=== PATIENT | male | born 1960 | race Caucasian/White ===

== ENCOUNTER 2018-11-14 22:02 | Emergency (ER) | payer SELFPAY ==
--- OUTSIDE RECORDS SUMMARY | 2018-11-14 22:05 | XMS REPORT ---
:1960 [facility] Address [address] [place] [address] Dr. Delgado [address] [place] [id number] Care Team Providers Name Role Phone Unavailable Unavailable Unavailable Problems This patient has no known problems. Allergies, Adverse Reactions, Alerts This patient has no known allergies or adverse reactions. Medications This patient has no known medications.
[2018-11-14 22:41] LABS: Absolute Lymphocytes (CBC) 2.2 K/uL (0.7-4.9); Absolute Monocytes 1.2 K/uL (0.1-1.3); Absolute Neutrophil 8.9 K/uL (1.8-8.0); Basophils % 0.6 % (0-1.3); Hematocrit 41.5 % (39.6-49.0); Lymphocytes % 16.6 % (15.3-44.8); MPV 7.6 fL (7.6-11.3); Monocytes % 9.5 % (3.3-12.3); RBC Red Blood Cell Count 4.53 M/uL (4.33-5.43)
[2018-11-14] MEDS ORDERED: FAMOTIDINE 20 MG/2 ML VIAL IV ONE (23:01)
[2018-11-14] MEDS ORDERED: MORPHINE 4 MG/ML SYR ONE (23:01)
[2018-11-14] MEDS ORDERED: ONDANSETRON 4 MG/2 ML VIAL ONE (23:01)
[2018-11-14 23:29] LABS: Protime INR 0.96
[2018-11-14 23:45] LABS: ALT/SGPT 55 U/L (12-78); AST/SGOT 42 U/L (15-37); Albumin 4.4 g/dL (3.4-5.0); Alkaline Phosphatase 156 U/L (45-117); BUN Blood Urea Nitrogen 25 mg/dL (7-18); Bicarbonate 26 mmol/L (21-32); Bilirubin Direct 0.2 mg/dL (0-0.2); Bilirubin Total 0.5 mg/dL (0.2-1.0); Glucose Level 90 mg/dL (74-106); Magnesium 2.5 mg/dL (1.8-2.4); NT PRO-BNP 59 pg/mL (<125); Potassium 4.1 mmol/L (3.5-5.1); Protein, Total 8.1 g/dL (6.4-8.2); Sodium Level 136 mmol/L (136-145); Troponin (Emerg Dept Use Only) < 0.02 ng/mL (0.0-0.045)
[2018-11-15] MEDS ORDERED: METHYLPREDNISOLONE 125 MG INJ ONE (00:24)
[2018-11-15] MEDS ORDERED: DIPHENHYDRAMINE 50 MG/ML VIAL ONE (00:24)
[2018-11-15] MEDS ORDERED: hydrOXYzine HCl 50 MG/ML VIAL IM ONE (02:25)
--- NOTE | 2018-11-15 02:49 | EDPHYS ---
Physician Documentation [facility] Name: Wood Jj Age: 58 yrs Sex: Male : 1960 Arrival Date: 11/14/2018 Time: 22:08 Bed 16 Private MD: ED Physician Terry Nye HPI: 11/15 03:41 This 58 yrs old Male presents to ER via Wheelchair with complaints of Chest kdr Pain. 03:41 The patient or guardian reports chest pain that is located primarily in the substernal kdr area, anterior chest wall, bilaterally. Onset: suddenly, Noon today. The pain does not radiate. Associated signs and symptoms: Pertinent positives: nausea. The chest pain is described as aching, dull, a pressure. Duration: The patient or guardian reports multiple episodes, that are intermittent, that wax and wane, with no pattern. Modifying factors: The symptoms are alleviated by nothing. the symptoms are aggravated by nothing. Severity of pain: At its worst the pain was mild in the emergency department the pain is unchanged. The patient has experienced similar episodes in the past, several times. The patient has not recently seen a physician. The patient seems very anxious and is crying at bedside. Historical: - Allergies: 11/14 22:23 PENICILLINS; lp1 22:23 Trazodone; lp1 22:23 Valium; lp1 22:23 Xanax; lp1 11/15 03:50 Zofran; rr5 - Home Meds: 11/14 22:23 lisinopril Oral [Active]; lp1 - PMHx: 22:23 Hypertension; Myocardial infarction; lp1 - PSHx: 22:23 Appendectomy; Eye surgery; lp1 - Immunization history:: Adult Immunizations up to date. - Social history:: Smoking status: Patient uses tobacco products, smokes one-half pack cigarettes per day. - Ebola Screening: : No symptoms or risks identified at this time. ROS: 11/15 03:41 Constitutional: Negative for fever, chills, and weight loss, Eyes: Negative for injury, kdr pain, redness, and discharge, Neck: Negative for injury, pain, and swelling, Respiratory: Negative for shortness of breath, cough, wheezing, and pleuritic chest pain, Abdomen/GI: Negative for abdominal pain, nausea, vomiting, diarrhea, and constipation, Back: Negative for injury and pain, : Negative for injury, bleeding, discharge, and swelling, MS/Extremity: Negative for injury and deformity, Skin: Negative for injury, rash, and discoloration, Psych: Negative for depression, anxiety, suicide ideation, homicidal ideation, and hallucinations, Allergy/Immunology: Negative for hives, rash, and allergies, Endocrine: Negative for neck swelling, polydipsia, polyuria, polyphagia, and marked weight changes, Hematologic/Lymphatic: Negative for swollen nodes, abnormal bleeding, and unusual bruising. Cardiovascular: Positive for chest pain, Negative for edema, orthopnea, palpitations, paroxysmal nocturnal dyspnea, acute changes. Neuro: Positive for Very emotional. Psych: Positive for Emotional - crying. Exam: 03:41 Constitutional: This is a well developed, well nourished patient who is awake, alert, kdr and in mdoerate distress. Head/Face: Normocephalic, atraumatic. Eyes: Pupils equal round and reactive to light, extra-ocular motions intact. Lids and lashes normal. Conjunctiva and sclera are non-icteric and not injected. Cornea within normal limits. Periorbital areas with no swelling, redness, or edema. Neck: Trachea midline, no thyromegaly or masses palpated, and no cervical lymphadenopathy. Supple, full range of motion without nuchal rigidity, or vertebral point tenderness. No Meningismus. Chest/axilla: Normal chest wall appearance and motion. Nontender with no deformity. No lesions are appreciated. Cardiovascular: Regular rate and rhythm with a normal S1 and S2. No gallops, murmurs, or rubs. Normal PMI, no JVD. No pulse deficits. Respiratory: Lungs have equal breath sounds bilaterally, clear to auscultation and percussion. No rales, rhonchi or wheezes noted. No increased work of breathing, no retractions or nasal flaring. Abdomen/GI: Soft, non-tender, with normal bowel sounds. No distension or tympany. No guarding or rebound. No evidence of tenderness throughout. Back: No spinal tenderness. No costovertebral tenderness. Full range of motion. Skin: Warm, dry with normal turgor. Normal color with no rashes, no lesions, and no evidence of cellulitis. MS/ Extremity: Pulses equal, no cyanosis. Neurovascular intact. Full, normal range of motion. Neuro: Awake and alert, GCS 15, oriented to person, place, time, and situation. Cranial nerves II-XII grossly intact. Motor strength 5/5 in all extremities. Sensory grossly intact. Cerebellar exam normal. Normal gait. 03:41 Psych: Behavior/mood is inappropriate for age, Emotional. Vital Signs: 11/14 22:21 BP 111 / 74; Pulse 73; Resp 19; Pulse Ox 96% on R/A; Weight 87.54 kg; Height 5 ft. 6 lp1 in. (167.64 cm); Pain 8/10; 22:29 Temp 97.7(T); ag4 23:00 BP 118 / 71; Pulse 63; Resp 17; Pulse Ox 98% ; rr5 23:30 BP 101 / 67; Pulse 72; Resp 17; Pulse Ox 99% ; rr5 02 00:00 BP 105 / 65; Pulse 79; Resp 20; Pulse Ox 99% ; rr5 01:00 BP 103 / 60; Pulse 75; Resp 17; Pulse Ox 98% ; rr5 02:00 BP 109 / 63; Pulse 79; Resp 19; Pulse Ox 98% ; rr5 03:00 BP 102 / 70; Pulse 75; Resp 16; Pulse Ox 98% ; rr5 03:40 BP 101 / 60; Pulse 73; Resp 17; Pulse Ox 98% ; rr5 02 22:21 Body Mass Index 31.15 (87.54 kg, 167.64 cm) lp1 MDM: 02:47 Patient medically screened. kdr 03:41 Data reviewed: vital signs, nurses notes, lab test result(s), radiologic studies. kdr Counseling: I had a detailed discussion with the patient and/or guardian regarding: the historical points, exam findings, and any diagnostic results supporting the discharge/admit diagnosis, lab results, radiology results, the need for outpatient follow up. 03:41 ED course: The patient had an allergic reaction to some medication given - he responded kdr to the medications given. 11/14 22:22 Order name: Basic Metabolic Panel kdr 11/14 22:22 Order name: CBC with Diff; Complete Time: 23:44 kdr 11/14 22:22 Order name: LFT's; Complete Time: 23:57 kdr 11/14 22:22 Order name: Magnesium; Complete Time: 23:57 kdr 11/14 22:22 Order name: NT PRO-BNP; Complete Time: 23:57 kdr 11/14 22:22 Order name: PT-INR; Complete Time: 23:44 kdr 11/14 22:22 Order name: Troponin (emerg Dept Use Only); Complete Time: 23:57 kdr 11/14 22:22 Order name: XRAY Chest (1 view) kdr 11/14 22:23 Order name: Basic Metabolic Panel; Complete Time: 23:57 EDMS 11/15 01:37 Order name: Troponin (emerg Dept Use Only): Draw 3 hours after initial draw.; Complete kdr Time: 02:45 11/14 22:22 Order name: EKG; Complete Time: 22:23 kdr 11/14 22:22 Order name: Cardiac monitoring; Complete Time: 22:43 kdr 11/14 22:22 Order name: EKG - Nurse/Tech; Complete Time: 22:43 kdr 11/14 22:22 Order name: IV Saline Lock; Complete Time: 22:43 kdr 11/14 22:22 Order name: Labs collected and sent; Complete Time: 22:43 kdr 11/14 22:22 Order name: O2 Per Protocol; Complete Time: 22:43 kdr 11/14 22:22 Order name: O2 Sat Monitoring; Complete Time: 22:43 kdr Administered Medications: 11/14 22:50 Drug: Pepcid 20 mg Route: IVP; Site: right antecubital; rr5 11/15 03:50 Follow up: Response: No adverse reaction rr5 11/14 22:52 Drug: Zofran 4 mg Route: IVP; Site: right antecubital; rr5 11/15 00:00 Follow up: Response: Adverse reaction, Physician notified; complaints of itchiness. rr5 04:01 Follow up: Response: No adverse reaction rr5 11/14 22:55 Drug: morphine 4 mg Route: IVP; Site: right antecubital; rr5 11/15 04:01 Follow up: Response: No adverse reaction rr5 00:08 Drug: SOLU-Medrol 125 mg Route: IVP; Site: right antecubital; rr5 03:50 Follow up: Response: No adverse reaction rr5 00:10 Drug: Benadryl 25 mg Route: IVP; Site: right antecubital; rr5 03:50 Follow up: Response: No adverse reaction rr5 02:21 Drug: hydrOXYzine 50 mg Route: IM; Site: left gluteus; rr5 03:50 Follow up: Response: No adverse reaction rr5 Disposition: 11/15/18 02:47 Discharged to Home. Impression: Other chest pain, Allergic Reaction. - Condition is Stable. - Discharge Instructions: Nonspecific Chest Pain, [id number], Allergies, [id number]. - Prescriptions for Vistaril 25 mg Oral capsule - take 1 capsule by ORAL route 4 times per day As needed; 20 capsule. Tramadol 50 mg Oral Tablet - take 1 tablet by ORAL route every 8 hours as needed; 12 tablet. Medrol (Bijan) 4 mg Oral Tablets, Dose Pack - take 1 tablet by ORAL route as directed - follow package instructions; 1 packet. - Medication Reconciliation Form, Thank You Letter, Antibiotic Education, Prescription Opioid Use form. - Follow up: Private Physician; When: 2 - 3 days; Reason: If symptoms return, Further diagnostic work-up, Recheck today's complaints, Continuance of care, Re-evaluation by your physician. - Problem is new. - Symptoms have improved. Signatures: Dispatcher [employer] EDMS Terry Nye MD MD kdr Juliet Bunch RN RN lp1 Celso Trinidad RN RN rr5 Corrections: (The following items were deleted from the chart) 03:58 02:47 11/15/2018 02:47 Discharged to Home. Impression: Other chest pain; Allergic rr5 Reaction. Condition is Stable. Forms are Medication Reconciliation Form, Thank You Letter, Antibiotic Education, Prescription Opioid Use. Follow up: Private Physician; When: 2 - 3 days; Reason: If symptoms return, Further diagnostic work-up, Recheck today's complaints, Continuance of care, Re-evaluation by your physician. Problem is new. Symptoms have improved. kdr
--- NOTE | 2018-11-15 02:49 | ER ---
Nurse's Notes [facility] Name: Wood Jj Age: 58 yrs Sex: Male : 1960 Arrival Date: 11/14/2018 Time: 22:08 Bed 16 Private MD: Diagnosis: Other chest pain;Allergic Reaction Presentation: 11/14 22:19 Presenting complaint: Patient states: Chest pain that began at 1200 today, worsened lp1 around 1400, shortness of breath that began at 1700; Patient states "When I move my arms it makes my chest hurt worse"; Denies any trauma. Transition of care: patient was not received from another setting of care. Onset of symptoms was November 14, 2018 at 12:00. Risk Assessment: Do you want to hurt yourself or someone else? Patient reports no desire to harm self or others. Initial Sepsis Screen: Does the patient meet any 2 criteria? No. Patient's initial sepsis screen is negative. Does the patient have a suspected source of infection? No. Patient's initial sepsis screen is negative. Note Patient noted to be anxious, crying. Care prior to arrival: None. 22:19 Method Of Arrival: Wheelchair lp1 22:19 Acuity: LISA 3 lp1 Historical: - Allergies: 22:23 PENICILLINS; lp1 22:23 Trazodone; lp1 22:23 Valium; lp1 22:23 Xanax; lp1 11/15 03:50 Zofran; rr5 - Home Meds: 11/14 22:23 lisinopril Oral [Active]; lp1 - PMHx: 22:23 Hypertension; Myocardial infarction; lp1 - PSHx: 22:23 Appendectomy; Eye surgery; lp1 - Immunization history:: Adult Immunizations up to date. - Social history:: Smoking status: Patient uses tobacco products, smokes one-half pack cigarettes per day. - Ebola Screening: : No symptoms or risks identified at this time. Screenin:24 Abuse screen: Denies threats or abuse. Denies injuries from another. Nutritional lp1 screening: No deficits noted. Tuberculosis screening: No symptoms or risk factors identified. 22:25 Fall Risk IV access (20 points). Total Azul Fall Scale indicates No Risk (0-24 pts). rr5 Assessment: 22:25 General: Appears in no apparent distress. uncomfortable, Behavior is crying. Pain: rr5 Complains of pain in chest Pain radiates to left arm Pain currently is 8 out of 10 on a pain scale. Quality of pain is described as aching, Pain began gradually, Is intermittent. 22:25 Neuro: Level of Consciousness is awake, alert, obeys commands, Oriented to person, rr5 place, time, situation, Appropriate for age. Cardiovascular: Reports chest pain, Capillary refill < 3 seconds Patient's skin is warm and dry. Respiratory: Airway is patent Respiratory effort is even, unlabored, Respiratory pattern is regular, symmetrical. GI: No signs and/or symptoms were reported involving the gastrointestinal system. : No signs and/or symptoms were reported regarding the genitourinary system. EENT: No signs and/or symptoms were reported regarding the EENT system. Derm: Skin temperature is warm. Musculoskeletal: Capillary refill < 3 seconds, Range of motion: intact in all extremities. 23:45 Reassessment: Patient appears in no apparent distress at this time. Patient is alert, rr5 oriented x 3, equal unlabored respirations, skin warm/dry/pink. chatting with his pediatric sports medicine specialist comfortably. Patient states feeling better. Patient states symptoms have improved. 11/15 00:02 Reassessment: complaining of itchiness all over the body ED provider aware with order rr5 made and carried out. 01:00 Reassessment: Patient appears in no apparent distress at this time. Patient is alert, rr5 oriented x 3, equal unlabored respirations, skin warm/dry/pink. asleep on bed. 02:00 Reassessment: Patient appears in no apparent distress at this time. Patient is alert, rr5 oriented x 3, equal unlabored respirations, skin warm/dry/pink. repeat cardiac enzymes extracted and sent. 02:20 Reassessment: complaining of severe itchiness. ED provider informed with order made and rr5 carried out. 03:30 Reassessment: Patient appears in no apparent distress at this time. Patient and/or rr5 family updated on plan of care and expected duration. Pain level reassessed. asleep on bed comfortably. reassess by ED provider, for discharge. Patient states feeling better. Patient states symptoms have improved. Vital Signs: 11/14 22:21 BP 111 / 74; Pulse 73; Resp 19; Pulse Ox 96% on R/A; Weight 87.54 kg; Height 5 ft. 6 lp1 in. (167.64 cm); Pain 8/10; 22:29 Temp 97.7(T); ag4 23:00 BP 118 / 71; Pulse 63; Resp 17; Pulse Ox 98% ; rr5 23:30 BP 101 / 67; Pulse 72; Resp 17; Pulse Ox 99% ; rr5 02 00:00 BP 105 / 65; Pulse 79; Resp 20; Pulse Ox 99% ; rr5 01:00 BP 103 / 60; Pulse 75; Resp 17; Pulse Ox 98% ; rr5 02:00 BP 109 / 63; Pulse 79; Resp 19; Pulse Ox 98% ; rr5 03:00 BP 102 / 70; Pulse 75; Resp 16; Pulse Ox 98% ; rr5 03:40 BP 101 / 60; Pulse 73; Resp 17; Pulse Ox 98% ; rr5 11/14 22:21 Body Mass Index 31.15 (87.54 kg, 167.64 cm) lp1 ED Course: 11/14 22:08 Patient arrived in ED. mr 22:19 Missed attempt(s): 18 gauge in left antecubital area. Missed attempt(s): 22 gauge in lp1 left wrist. 22:19 EKG done, by ED staff, reviewed by Terry Nye MD. lp1 22:20 EKG done, by ED staff. ag4 22:21 Triage completed. lp1 22:21 Arm band placed on left wrist. lp1 22:22 Terry Nye MD is Attending Physician. kdr 22:24 Patient maintains SpO2 saturation greater than 95% on room air. lp1 22:24 Missed attempt(s): 20 gauge in right antecubital area. Bleeding controlled, band aid jd3 applied, catheter tip intact. 22:24 Patient has correct armband on for positive identification. Placed in gown. Bed in low lp1 position. Call light in reach. pvc monitor on. Pulse ox on. NIBP on. 22:25 Inserted saline lock: 20 gauge in right antecubital area, using aseptic technique. jd3 Blood collected. 22:34 Celso Trinidad, RN is Primary Nurse. rr5 22:53 XRAY Chest (1 view) In Process Unspecified. EDMS 23:50 No provider procedures requiring assistance completed. rr5 11/15 02:00 Inserted saline lock: 22 gauge in left hand, using aseptic technique. Blood collected. rr5 03:50 IV discontinued, intact, No redness/swelling at site. Pressure dressing applied. rr5 Administered Medications: 11/14 22:50 Drug: Pepcid 20 mg Route: IVP; Site: right antecubital; rr5 11/15 03:50 Follow up: Response: No adverse reaction rr5 11/14 22:52 Drug: Zofran 4 mg Route: IVP; Site: right antecubital; rr5 11/15 00:00 Follow up: Response: Adverse reaction, Physician notified; complaints of itchiness. rr5 04:01 Follow up: Response: No adverse reaction rr5 11/14 22:55 Drug: morphine 4 mg Route: IVP; Site: right antecubital; rr5 11/15 04:01 Follow up: Response: No adverse reaction rr5 00:08 Drug: SOLU-Medrol 125 mg Route: IVP; Site: right antecubital; rr5 03:50 Follow up: Response: No adverse reaction rr5 00:10 Drug: Benadryl 25 mg Route: IVP; Site: right antecubital; rr5 03:50 Follow up: Response: No adverse reaction rr5 02:21 Drug: hydrOXYzine 50 mg Route: IM; Site: left gluteus; rr5 03:50 Follow up: Response: No adverse reaction rr5 Intake: Outcome: 02:47 Discharge ordered by . kdr 03:55 Discharged to home via wheelchair, with family. rr5 03:55 Condition: stable 03:55 Discharge instructions given to patient, family, Instructed on discharge instructions, follow up and referral plans. medication usage, Demonstrated understanding of instructions, follow-up care, medications, Prescriptions given X 3. 03:58 Patient left the ED. rr5 Signatures: Dispatcher [employer] EDMS Terry Nye MD MD kdr Rivera, Mary mr Pena, Laura, RN RN lp1 Jordan Guerra RN RN jCelso Godinez RN RN rr5 Gentry Peck ag4 Corrections: (The following items were deleted from the chart) 11/14 22:25 22:19 Presenting complaint: Patient states: Chest pain that began at 1200 today, lp1 worsened around 1400, shortness of breath that began at 1700; lp1
[2018-11-15 04:08] VITALS: TEMP 97.7
[2018-11-15 04:13] VITALS: O2SAT 98
[2018-11-15 04:17] VITALS: BP 101/60
--- NOTE | 2018-11-15 07:40 | EKG ---
Test Date: 2018-11-14 Test Time: 22:13:41 Composing Room Supervisor: [id number] MEASUREMENT RESULTS: Intervals: Rate: 70 GA: 162 QRSD: 80 QT: 404 QTc: 436 [place]: P: 61 GA: 162 QRS: 46 T: 58 INTERPRETIVE STATEMENTS: Normal sinus rhythm Cannot rule out Anterior infarct, age undetermined Abnormal ECG Compared to ECG 12/06/2014 00:31:30 No significant changes Electronically Signed On 11-15-18 07:39:07 [employer]IEF FIN[employer]CIAL OFFICER by Stefan Nova
--- NOTE | 2018-11-15 09:19 | RAD REPORT ---
EXAM DESCRIPTION: [place] Single View11/14/2018 10:53 pm CLINICAL HISTORY: Chest pain COMPARISON: 2012 FINDINGS: The lungs appear clear of acute infiltrate. The heart is normal size IMPRESSION: No acute abnormalities displayed
== END 2018-11-15 03:58 | disposition home or self-care (01) ==
LOC: ER 22:02
DX: R07.89 Other chest pain (principal); F17.210 Nicotine dependence, cigarettes, uncomplicated; I10 Essential (primary) hypertension; I25.2 Old myocardial infarction; Z88.0 Allergy status to penicillin; Z88.5 Allergy status to narcotic agent; Z88.8 Allergy status to other drugs, medicaments and biological substances
CPT/HCPCS: 36415; 71045; 80048; 80076; 83735; 83880; 84484; 85025; 85610; 93005; 96372; 96374; 96375; 99285; J2405; J2930; J3410

== ENCOUNTER 2021-05-01 17:06 | Emergency (ER) | payer OTHER ==
--- OUTSIDE RECORDS SUMMARY | 2021-05-01 17:08 | XMS REPORT | Continuity of Care Document ---
:1960 Author Organization [facility] t Address [address] [place] [address] Care Team Providers Name Role Phone Neeraj Mayuri JOYNER Attending Clinician Problems This patient has no known problems. Allergies, Adverse Reactions, Alerts This patient has no known allergies or adverse reactions. Medications This patient has no known medications. Procedures This patient has no known procedures. Encounters Start End Encounter Admission Attending Care Care Encounter Source Date/Time Date/Time Type Type Clinicians Facility Department ID 2021-04-30 2021-04-30 Outpatient [facility] [id number] [facility] 00[facility]00[facility]00 [facility]00[facility]00 [facility] 2021-04-06 2021-04-06 Outpatient [facility] [id number] [facility] 2020-08-14 2020-08-14 Emergency VARSHA [place] [id number] 14:12:00 15:54:00 Love Mayuri [place] [id number] [place] [id number] [place] [id number] Results This patient has no known results.
--- NOTE | 2021-05-01 18:51 | RAD REPORT ---
EXAM DESCRIPTION: [place] Single View05/01/2021 6:39 pm CLINICAL HISTORY: Chest pain COMPARISON: 2018 FINDINGS: The lungs appear clear of acute infiltrate. The heart is normal size IMPRESSION: No acute abnormalities displayed
--- NOTE | 2021-05-01 20:03 | RAD REPORT ---
EXAM DESCRIPTION: CT - Head Brain Wo Cont - 05/01/2021 7:53 pm CLINICAL HISTORY: Headache COMPARISON: 2012 and 2016 TECHNIQUE: Computed axial tomography of the head was obtained. IV contrast was not requested. All CT scans are performed using dose optimization technique as appropriate and may include automated exposure control or mA/KV adjustment according to patient size. FINDINGS: An intracranial bleed is not seen . The ventricles are normal in caliber. No extra-axial fluid collection is noted. 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 Small low-density white matter right frontal lobe unchanged Small old lacunar infarct left thalamus Fluid within the sinuses/ mastoids is not seen. Mild mucoperiosteal thickening ethmoid sinus IMPRESSION: No acute intracranial abnormality is seen. If patient's symptoms persist MR of the brain would be recommended. Mild chronic ethmoid sinusitis
[2021-05-01] MEDS ORDERED: MORPHINE 4 MG/ML SYR ONE ×2 (20:29→23:47)
[2021-05-01] MEDS ORDERED: NA CHLORIDE 0.9% 1,000 ML ONE (20:30)
[2021-05-01] MEDS ORDERED: ONDANSETRON 4 MG/2 ML VIAL ONE (20:30)
[2021-05-01 20:41] LABS: Absolute Lymphocytes (CBC) 2.3 K/uL (0.7-4.9); Basophils % 0.6 % (0-1.3); Hematocrit 41.9 % (39.6-49.0); Lymphocytes % 20.9 % (15.3-44.8); MPV 7.7 fL (7.6-11.3); RBC Red Blood Cell Count 4.56 M/uL (4.33-5.43)
[2021-05-01 20:42] LABS: Protime INR 0.99
[2021-05-01 20:52] LABS: Barbiturates NEGATIVE (NEGATIVE); Benzodiazepines NEGATIVE (NEGATIVE); Cocaine POSITIVE (NEGATIVE); METHAMPHETAM NEGATIVE (NEGATIVE); Methadone NEGATIVE (NEGATIVE); Opiates NEGATIVE (NEGATIVE); Phencyclidine NEGATIVE (NEGATIVE); THC Cannibis NEGATIVE (NEGATIVE)
[2021-05-01 20:54] LABS: ALT/SGPT 25 U/L (12-78); AST/SGOT 18 U/L (15-37); Albumin 3.7 g/dL (3.4-5.0); Alkaline Phosphatase 122 U/L (45-117); BUN Blood Urea Nitrogen 9 mg/dL (7-18); Bicarbonate 28 mmol/L (21-32); Bilirubin Direct < 0.1 mg/dL (0-0.2); Bilirubin Total 0.3 mg/dL (0.2-1.0); Glucose Level 76 mg/dL (74-106); Magnesium 2.2 mg/dL (1.8-2.4); NT PRO-BNP 1571 pg/mL (<125); Potassium 4.2 mmol/L (3.5-5.1); Protein, Total 8.4 g/dL (6.4-8.2); Sodium Level 139 mmol/L (136-145); Troponin (Emerg Dept Use Only) < 0.02 ng/mL (0.0-0.045)
[2021-05-01 21:35] LABS: Creatine Phosphokinase 65 U/L (39-308)
--- NOTE | 2021-05-02 00:51 | ER ---
Nurse's Notes [facility] Name: Wood Jj Age: 60 yrs Sex: Male : 1960 Arrival Date: 05/01/2021 Time: 17:13 Bed 20 Private MD: Diagnosis: Pneumonia, Right Lower lobe;Cocaine abuse;Viral Syndrome Presentation: 05/01 18:14 Chief complaint: Patient states: "my chest has been really heavy in the mornings and aa5 when I start moving around I start coughing really bad". Pt also reports intermittent SOB. Pt reports symptoms began 3 days ago. Coronavirus screen: cough unrelated to allergies. Ebola Screen: Patient negative for fever greater than or equal to 101.5 degrees Fahrenheit, and additional compatible Ebola Virus Disease symptoms. Initial Sepsis Screen: Does the patient meet any 2 criteria? No. Patient's initial sepsis screen is negative. Does the patient have a suspected source of infection? No. Patient's initial sepsis screen is negative. Risk Assessment: Do you want to hurt yourself or someone else? Patient reports no desire to harm self or others. Onset of symptoms was 2020. 18:14 Method Of Arrival: Ambulatory aa5 18:14 Acuity: LISA 3 aa5 Triage Assessment: 21:43 General: Appears in no apparent distress. Behavior is calm, cooperative. Pain: Denies ak2 pain. Cardiovascular: No deficits noted. Historical: - Allergies: 18:17 PENICILLINS; aa5 18:17 Valium; aa5 18:17 Xanax; aa5 - Home Meds: 21:44 lisinopril Oral [Active]; ak2 - PMHx: 18:17 Hypertension; Myocardial infarction; aa5 - Immunization history:: Client reports having NOT received the Covid vaccine. Flu vaccine is not up to date. - Social history:: Smoking status: Patient reports the use of cigarette tobacco products. Screenin:44 Abuse screen: Denies threats or abuse. Denies injuries from another. Nutritional ak2 screening: No deficits noted. Tuberculosis screening: No symptoms or risk factors identified. Fall Risk None identified. Assessment: 21:44 Pain: Pain does not radiate. Pain began 3 hours ago. ak2 22:22 General: d-dimer:864, physician aware. ak2 05/02 01:03 Reassessment: Patient appears in no apparent distress at this time. Patient and/or em family updated on plan of care and expected duration. Pain level reassessed. Patient is alert, oriented x 3, equal unlabored respirations, skin warm/dry/pink. Patient states feeling better. Patient states symptoms have improved. Vital Signs: 05/01 18:14 BP 137 / 81; Pulse 50; Resp 18 S; Temp 97.9(TE); Pulse Ox 98% on R/A; aa5 21:45 BP 128 / 75; Pulse 61; Resp 18; Pulse Ox 100% on R/A; ak2 ED Course: 17:13 Patient arrived in ED. ds1 18:14 Arm band placed on. aa5 18:17 Triage completed. aa5 18:27 EKG done, by ED staff, reviewed by Gurpreet Baxter MD COVID swab sent to lab. aa5 18:39 Chest Single View XRAY In Process Unspecified. EDMS 19:14 Marcelo Zee MD is Attending Physician. mh7 19:53 CT Head Brain wo Cont In Process Unspecified. EDMS 21:44 Patient has correct armband on for positive identification. bioinformatics specialist on. Pulse ak2 ox on. NIBP on. 21:44 No provider procedures requiring assistance completed. Inserted saline lock: 20 gauge ak2 in right antecubital area, using aseptic technique. Patient maintains SpO2 saturation greater than 95% on room air. 05/02 00:14 CT Chest For PE Angio In Process Unspecified. EDMS 00:53 Joni Graham MD is Referral Physician. 7 01:02 IV discontinued, intact, bleeding controlled, No redness/swelling at site. Pressure em dressing applied. Administered Medications: 05/01 20:21 Drug: NS 0.9% 1000 ml Route: IV; Rate: 1000 ml; Site: left antecubital; ak2 20:21 Drug: morphine 4 mg Route: IVP; Site: left antecubital; ak2 20:21 Drug: Zofran (Ondansetron) 4 mg Route: IVP; Site: left antecubital; ak2 05/02 01:01 Drug: LevaQUIN (levofloxacin) 500 mg Route: PO; em 01:01 Follow up: Response: Medication administered at discharge. em Outcome: 00:51 Discharge ordered by . mh7 01:02 Discharged to home ambulatory. em 01:02 Condition: stable 01:02 Discharge instructions given to patient, Instructed on discharge instructions, follow up and referral plans. medication usage, Demonstrated understanding of instructions, follow-up care, medications, Prescriptions given X 2. 01:03 Patient left the ED. em Signatures: Dispatcher [employer] EDNoah Herrera RN RN em [place], Demi ds1 Elayne Marte RN RN aa5 Marcelo Zee MD MD 7 Shaquille Arriola ar2 Corrections: (The following items were deleted from the chart) 05/01 18:19 18:17 Allergies: Trazodone; aa5 aa5 18:19 18:17 Allergies: Zofran; aa5 aa5
--- NOTE | 2021-05-02 00:51 | EDPHYS ---
Physician Documentation [facility] Name: Wood Jj Age: 60 yrs Sex: Male : 1960 Arrival Date: 05/01/2021 Time: 17:13 Bed 20 Private MD: ED Physician Marcelo Zee HPI: 05/01 19:30 This 60 yrs old Male presents to ER via Ambulatory with complaints of Chest mh7 Pain, Cough. 20:04 The patient or guardian reports cough, that is intermittent, described as moderate, mh7 with no sputum, difficulty breathing, Runny nose, congestion. Onset: The symptoms/episode began/occurred 3 day(s) ago. Severity of symptoms: At their worst the symptoms were moderate, yesterday, in the emergency department the symptoms are unchanged. Modifying factors: The symptoms are alleviated by Ibuprofen, the symptoms are aggravated by nothing. Associated signs and symptoms: Pertinent positives: chest pain, with cough, rhinorrhea, sore throat, Headache, body aches, generalized fatigue, Pertinent negatives: diarrhea, ear ache, fever, nausea, vomiting. Patient reports that his boss recently tested positive for Covid.. Historical: - Allergies: 18:17 PENICILLINS; aa5 18:17 Valium; aa5 18:17 Xanax; aa5 - Home Meds: 21:44 lisinopril Oral [Active]; ak2 - PMHx: 18:17 Hypertension; Myocardial infarction; aa5 - Immunization history:: Client reports having NOT received the Covid vaccine. Flu vaccine is not up to date. - Social history:: Smoking status: Patient reports the use of cigarette tobacco products. ROS: 20:04 Constitutional: Negative for fever, chills, and weight loss, Eyes: Negative for injury, mh7 pain, redness, and discharge, Neck: Negative for injury, pain, and swelling, Abdomen/GI: Negative for abdominal pain, nausea, vomiting, diarrhea, and constipation, Back: Negative for injury and pain, : Negative for injury, bleeding, discharge, and swelling, MS/Extremity: Negative for injury and deformity, Skin: Negative for injury, rash, and discoloration, Psych: Negative for depression, anxiety, suicide ideation, homicidal ideation, and hallucinations, Allergy/Immunology: Negative for hives, rash, and allergies, Endocrine: Negative for neck swelling, polydipsia, polyuria, polyphagia, and marked weight changes, Hematologic/Lymphatic: Negative for swollen nodes, abnormal bleeding, and unusual bruising. Exam: 20:04 Constitutional: This is a well developed, well nourished patient who is awake, alert, mh7 and in no acute distress. 20:04 Eyes: Pupils equal round and reactive to light, extra-ocular motions intact. Lids and lashes normal. Conjunctiva and sclera are non-icteric and not injected. Cornea within normal limits. Periorbital areas with no swelling, redness, or edema. ENT: Nares patent. No nasal discharge, no septal abnormalities noted. Tympanic membranes are normal and external auditory canals are clear. Oropharynx with no redness, swelling, or masses, exudates, or evidence of obstruction, uvula midline. Mucous membranes moist. Neck: Trachea midline, no thyromegaly or masses palpated, and no cervical lymphadenopathy. Supple, full range of motion without nuchal rigidity, or vertebral point tenderness. No Meningismus. Chest/axilla: Normal chest wall appearance and motion. Nontender with no deformity. No lesions are appreciated. 20:04 Respiratory: Lungs have equal breath sounds bilaterally, clear to auscultation and percussion. No rales, rhonchi or wheezes noted. No increased work of breathing, no retractions or nasal flaring. Abdomen/GI: Soft, non-tender, with normal bowel sounds. No distension or tympany. No guarding or rebound. No evidence of tenderness throughout. Back: No spinal tenderness. No costovertebral tenderness. Full range of motion. Skin: Warm, dry with normal turgor. Normal color with no rashes, no lesions, and no evidence of cellulitis. MS/ Extremity: Pulses equal, no cyanosis. Neurovascular intact. Full, normal range of motion. Neuro: Awake and alert, GCS 15, oriented to person, place, time, and situation. Cranial nerves II-XII grossly intact. Motor strength 5/5 in all extremities. Sensory grossly intact. Cerebellar exam normal. Normal gait. Psych: Awake, alert, with orientation to person, place and time. Behavior, mood, and affect are within normal limits. 20:04 Head/face: Noted is tenderness, that is moderate, of the top of head and forehead. 20:04 Cardiovascular: Rate: bradycardic, Rhythm: regular, Pulses: no pulse deficits are appreciated, Heart sounds: normal, normal S1and S2, Edema: is not appreciated, JVD: is not appreciated. Vital Signs: 18:14 BP 137 / 81; Pulse 50; Resp 18 S; Temp 97.9(TE); Pulse Ox 98% on R/A; aa5 21:45 BP 128 / 75; Pulse 61; Resp 18; Pulse Ox 100% on R/A; ak2 MDM: 05/02 00:48 Differential Diagnosis: Obstructed Airway Bronchitis Influenza Upper Respiratory mh7 Infection Sinusitis Pharyngitis Viral Syndrome Pneumonia. Data reviewed: vital signs, nurses notes, old medical records, lab test result(s), cardiac enzymes, CBC, electrolytes, urinalysis, urine drug screen, EKG, radiologic studies, CT scan, plain films. Data interpreted: Pulse oximetry: on room air is 100 %. Interpretation: normal. Counseling: I had a detailed discussion with the patient and/or guardian regarding: the historical points, exam findings, and any diagnostic results supporting the discharge/admit diagnosis, lab results, radiology results, the need for outpatient follow up, to return to the emergency department if symptoms worsen or persist or if there are any questions or concerns that arise at home. Response to treatment: the patient's symptoms have resolved after treatment, the patient's blood pressure is in an acceptable range, mental status has returned to baseline, the patient no longer shows bradycardia, the patient is not short of breath, the patient is not tachycardic, the patient's pain is gone, the patient's temperature has normalized. 00:51 Patient medically screened. [facility] 05/01 18:20 Order name: COVID-19 : Document "Date of Symptom Onset" if Symptomatic. aa5 05/01 19:38 Order name: Basic Metabolic Panel; Complete Time: 22:13 [facility] 05/01 19:38 Order name: CBC with Diff; Complete Time: 21:00 [facility] 05/01 19:38 Order name: LFT's; Complete Time: 22:13 [facility] 05/01 19:38 Order name: Magnesium; Complete Time: 22:13 [facility] 05/01 19:38 Order name: NT PRO-BNP; Complete Time: 22:13 [facility] 05/01 19:38 Order name: PT-INR; Complete Time: 22:28 [facility] 05/01 19:38 Order name: Troponin (emerg Dept Use Only); Complete Time: 22:13 [facility] 05/01 19:39 Order name: Influenza Screen (a \\T\\ B); Complete Time: 21:00 [facility] 05/01 19:39 Order name: Rapid Strep; Complete Time: 21:00 [facility] 05/01 19:44 Order name: UDS; Complete Time: 21:00 [facility] 05/01 20:14 Order name: SARS-COV-2 RT PCR; Complete Time: 20:36 [facility] 05/01 20:56 Order name: Throat Culture [facility] 05/01 18:20 Order name: Chest Single View XRAY; Complete Time: 19:38 [facility] 05/01 18:20 Order name: EKG - Nurse/Tech; Complete Time: 18:27 [facility] 05/01 19:38 Order name: EKG; Complete Time: 19:39 [facility] 05/01 19:40 Order name: CT Head Brain wo Cont; Complete Time: 20:08 [facility] 05/01 21:00 Order name: CPK [facility] 05/01 21:24 Order name: D-Dimer; Complete Time: 22:28 [facility] 05/01 21:24 Order name: Creatine Phosphokinase; Complete Time: 22:13 [facility] 05/01 22:28 Order name: CT Chest For PE Angio [facility] 05/01 23:06 Order name: Troponin (emerg Dept Use Only); Complete Time: 00:30 [facility] 05/01 19:38 Order name: Cardiac monitoring [facility] 05/01 19:38 Order name: IV Saline Lock [facility] 05/01 19:38 Order name: Labs collected and sent [facility] 05/01 19:38 Order name: O2 Per Protocol [facility] 05/01 19:38 Order name: O2 Sat Monitoring [facility] 05/01 19:44 Order name: Urine Dipstick-Ancillary (obtain specimen) [facility] Administered Medications: 05/01 20:21 Drug: NS 0.9% 1000 ml Route: IV; Rate: 1000 ml; Site: left antecubital; ak2 20:21 Drug: morphine 4 mg Route: IVP; Site: left antecubital; ak2 20:21 Drug: Zofran (Ondansetron) 4 mg Route: IVP; Site: left antecubital; ak2 05/02 01:01 Drug: LevaQUIN (levofloxacin) 500 mg Route: PO; em 01:01 Follow up: Response: Medication administered at discharge. em Disposition Summary: 05/02/21 00:51 Discharge Ordered Location: Home [facility] Problem: new [facility] Symptoms: have improved [facility] Condition: Stable [facility] Diagnosis - Pneumonia, Right Lower lobe 7 - Cocaine abuse [facility] - Viral Syndrome [facility] Followup: [facility] - With: Private Physician - When: 1 - 2 days - Reason: Worsening of condition, Recheck today's complaints, Continuance of care, Re-evaluation by your physician Followup: [facility] - With: Joni Graham MD - When: 1 - 2 days - Reason: Worsening of condition, Recheck today's complaints Discharge Instructions: - Discharge Summary Sheet [facility] - Community-Acquired Pneumonia, Adult, [id number] [facility] Forms: - Medication Reconciliation Form [facility] - Thank You Letter [facility] - Antibiotic Education [facility] - Prescription Opioid Use [facility] Prescriptions: - albuterol sulfate 90 mcg/actuation Inhalation HFA aerosol inhaler - inhale 2 puff by INHALATION route every 6 hours As needed; 1 Inhaler; Refills: 7 0, Product Selection Permitted - Tessalon Perles 100 mg Oral Capsule - take 1 capsule by ORAL route every 8 hours As needed; 15 capsule; Refills: 0, 7 Product Selection Permitted - levofloxacin 500 mg Oral Tablet - take 1 tablet by ORAL route once daily for 7 days; 7 tablet; Refills: 0, 7 Product Selection Permitted Signatures: Dispatcher [employer] EDNoah Herrera RN RN Elayne Marte RN RN Marcelo Rivero MD MD 7 Shaquille Arriola mo2 Corrections: (The following items were deleted from the chart) 05/01 18:19 18:17 Allergies: Trazodone; don ochoa 18:19 18:17 Allergies: Zofran; aa5 [email or web address] 19:03 18:21 CORONAVIRUS ordered. EDVA EDMS 21:23 21:01 Creatine Phosphokinase ordered. EDMS EDMS 21:23 21:01 D-DIMER+COAG.LAB.BRZ ordered. EDMS EDMS
[2021-05-02] MEDS ORDERED: levoFLOXacin 250 MG TAB ONE (01:17)
[2021-05-02 01:25] VITALS: TEMP 97.9
[2021-05-02 01:26] VITALS: BP 128/75; O2SAT 100
--- NOTE | 2021-05-02 11:16 | RAD REPORT ---
EXAM DESCRIPTION: CTA Chest, Pulmonary Embolus Protocol COMPARISON: None. CLINICAL HISTORY: CHEST PAIN TECHNIQUE: CT images through the chest with IV contrast using the pulmonary embolus protocol. Multip lanar reformats. Automated exposure control was utilized on this examination as a dose lowering techn ique. FINDINGS: Pulmonary arteries and vascular: Diagnostic quality bolus. No filling defects. Heart and mediastinum: Heart size is normal. Mediastinal lymph nodes are increased in number but not in size and are likely reactive. Thyroid gland: Visualized portions are normal. Lungs: Groundglass opacities are present in the right lower lobe. Airways: No filling defects. No bronchiectasis. Pleura: No pneumothorax. No significant pleural effusion. Subphrenic structures: Within normal limits. Musculoskeletal and soft tissues: Within normal limits for age. IMPRESSION: 1. No evidence of pulmonary embolus. 2. Early right lower lobe pneumonia. Imaging features can be seen with COVID-19 pneumonia, though are nonspecific and can occur with a variety of infectious and noninfectious processes. Electronically signed by: Kamari Fraire MD 05/02/2021 12:25 AM CDT Due to temporary technical issues with the PACS/Fluency reporting system, reports are being signed by the in house radiologists without review as a courtesy to insure prompt reporting. The interpreting radiologist is fully responsible for the content of the report.
--- NOTE | 2021-05-02 17:00 | EKG ---
Test Date: 2021-05-01 Test Time: 18:24:17 Vp Client Services: CARLOS MEASUREMENT RESULTS: Intervals: Rate: 43 OK: 152 QRSD: 78 QT: 480 QTc: 405 [place]: P: 57 OK: 152 QRS: 36 T: 53 INTERPRETIVE STATEMENTS: Marked sinus bradycardia Abnormal ECG Compared to ECG 11/14/2018 22:13:41 Sinus rhythm no longer present Myocardial infarct finding no longer present Electronically Signed On 05-02-21 16:58:51 CDT by Stefan Nova
== END 2021-05-02 01:03 | disposition home or self-care (01) ==
LOC: ER 17:06
DX: J18.9 Pneumonia, unspecified organism (principal); B34.9 Viral infection, unspecified; F14.10 Cocaine abuse, uncomplicated; I10 Essential (primary) hypertension; Z88.5 Allergy status to narcotic agent; Z88.0 Allergy status to penicillin; Z72.0 Tobacco use; Z20.822 Contact with and (suspected) exposure to COVID-19
CPT/HCPCS: 93005; 87070; 85025; 80048; 36415; 83735; 82550; 85610; 85379; 80076; 87081; 84484 ×2; 83880; 80307; 87804 ×2; 70450; 71275; 71045; 96375; 96374; 99285; U0003; Q9967; J7030; J2405

== ENCOUNTER 2021-05-05 13:37 | Emergency (ER) | payer OTHER ==
--- OUTSIDE RECORDS SUMMARY | 2021-05-05 13:39 | XMS REPORT | Continuity of Care Document ---
:1960 Author Organization [facility] t Address [address] [place] [address] Care Team Providers Name Role Phone ChapinanyMayuri Garcia Attending Clinician Problems This patient has no known problems. Allergies, Adverse Reactions, Alerts This patient has no known allergies or adverse reactions. Medications This patient has no known medications. Procedures This patient has no known procedures. Encounters Start End Encounter Admission Attending Care Care Encounter Source Date/Time Date/Time Type Type Clinicians Facility Department ID 2021-04-30 2021-04-30 Outpatient [facility] [id number] [facility] 2021-04-06 2021-04-06 Outpatient [facility] [id number] [facility] 2020-08-14 2020-08-14 Emergency VAR[facility] [id number] 14:12:00 15:54:00 [facility] Mayuri [place] [id number] [place] [id number] [place] [id number] Results This patient has no known results.
--- NOTE | 2021-05-05 14:31 | RAD REPORT ---
EXAM DESCRIPTION: RAD - Chest Pa And Lat (2 Views) - 05/05/2021 2:20 pm CLINICAL HISTORY: Cough;Congestion COMPARISON: No comparisonsChest Single View dated 05/01/2021; Chest Single View dated 11/14/2018; CHEST SINGLE VIEW dated 09/12/2013; CHEST SINGLE VIEW dated 05/30/2013 FINDINGS: No evidence of edema or pneumonia. The heart size is within normal limits.No acute osseous abnormality. No significant pleural effusions or pneumothorax. IMPRESSION: No acute cardiopulmonary disease.
--- NOTE | 2021-05-05 15:23 | ER ---
Nurse's Notes [facility] Name: Wood Jj Age: 60 yrs Sex: Male : 1960 Arrival Date: 05/05/2021 Time: 13:42 Bed Waiting Private MD: Diagnosis: Acute upper respiratory infection, unspecified Presentation: 05/05 13:46 Chief complaint: Patient states: Headache, nose bleed, SOB, Cough, fatigue x 1 wk. kg Coronavirus screen: Client denies travel out of the [place] in the last 14 days. At this time, unable to obtain information related to travel outside the [place] Client presents with at least one sign or symptom that may indicate coronavirus-19. Standard/surgical mask placed on the client. Provider contacted for isolation considerations. Ebola Screen: Patient negative for fever greater than or equal to 101.5 degrees Fahrenheit, and additional compatible Ebola Virus Disease symptoms Patient denies exposure to infectious person. Patient denies travel to an Ebola-affected area in the 21 days before illness onset. Initial Sepsis Screen: Does the patient meet any 2 criteria? No. Patient's initial sepsis screen is negative. Does the patient have a suspected source of infection? No. Patient's initial sepsis screen is negative. Risk Assessment: Do you want to hurt yourself or someone else? Patient reports no desire to harm self or others. Onset of symptoms was April 27, 2021. 13:46 Method Of Arrival: Ambulatory kg 13:46 Acuity: LISA 3 kg Triage Assessment: 13:53 Headache History: Denies prior headaches. General: Appears in no apparent distress. kg distressed, Behavior is calm, cooperative, appropriate for age, quiet. Pain: Complains of pain in Headache, chest, stomach, back Pain currently is 8 out of 10 on a pain scale. at worst was 9 out of 10 on a pain scale. level that patient reports is acceptable is 3 out of 10 on a pain scale. Quality of pain is described as aching, Pain began gradually, Also complains of sleeplessness. Neuro: No deficits noted. Historical: - Allergies: 13:50 PENICILLINS; kg 13:50 Valium; kg 13:50 Xanax; kg - Home Meds: 13:50 benzonatate 100 mg oral cap 3 times per day [Active]; atorvastatin 40 mg oral tab 1 tab kg once daily [Active]; metoprolol tartrate 50 mg Oral tab 1 tab 2 times per day [Active]; levofloxacin 500 mg Oral tab 1 tab once daily [Active]; tramadol 50 mg Oral tab every 6 hours [Active]; albuterol sulfate Inhl [Active]; lisinopril 2.5 mg oral tab once daily [Active]; - PMHx: 13:50 Hypertension; Myocardial infarction; kg - PSHx: 13:50 Hernia sx; Appendectomy; eye sx; kg 13:53 Hemorrhoidectomy; kg - Immunization history:: Adult Immunizations not up to date, Client reports having NOT received the Covid vaccine. - Social history:: Smoking status: Patient reports the use of cigarette tobacco products, smokes one-half pack cigarettes per day. Screenin:55 Abuse screen: Denies threats or abuse. Denies injuries from another. Nutritional kg screening: No deficits noted. Tuberculosis screening: No symptoms or risk factors identified. Fall Risk None identified. Assessment: 15:21 General: Appears in no apparent distress. Behavior is calm, cooperative, appropriate kg for age, quiet. Pain: Complains of pain in face, back and chest. Neuro: No deficits noted. Cardiovascular: Heart tones S1 S2 Parent/caregiver reports patient has had Chest tightness. Respiratory: Reports shortness of breath at rest on exertion Airway is patent Trachea midline Respiratory effort is even, unlabored, relaxed, Respiratory pattern is regular, Breath sounds are clear. Vital Signs: 13:46 BP 129 / 81; Pulse 51; Resp 20; Temp 98.5; Pulse Ox 97% on R/A; Weight 84.82 kg (R); kg Height 5 ft. 6 in. (167.64 cm) (R); Pain 8/10; 13:46 Body Mass Index 30.18 (84.82 kg, 167.64 cm) kg ED Course: 13:42 Patient arrived in ED. ds1 13:46 [facility]C [facility]. kb 13:46 Gurpreet Baxter MD is Attending Physician. kb 13:50 Triage completed. kg 13:53 Arm band placed on right wrist. kg 13:55 Patient has correct armband on for positive identification. kg 14:20 Chest Pa And Lat (2 Views) XRAY In Process Unspecified. EDMS 15:21 No provider procedures requiring assistance completed. Patient did not have IV access kg during this emergency room visit. Administered Medications: No medications were administered Outcome: 15:23 Discharge ordered by . kb 16:27 Patient left the ED. iw Signatures: Dispatcher [employer] EDBritt Palmer, ELIAZAR JOYNER-Laura Frederick ds1 Linda Black RN RN iw Lizzeth Paz RN RN kg
--- NOTE | 2021-05-05 15:23 | EDPHYS ---
Physician Documentation [facility] Name: Wood Jj Age: 60 yrs Sex: Male : 1960 Arrival Date: 05/05/2021 Time: 13:42 Bed Waiting Private MD: PRAVEEN Physician Gurpreet Baxter HPI: 05/05 15:03 This 60 yrs old Male presents to ER via Ambulatory with complaints of kb Headache, Breathing Difficulty, Chest Tightness. 15:03 The patient or guardian reports cough, that is intermittent, described as mild, kb difficulty breathing, flu symptoms, myalgias. Onset: The symptoms/episode began/occurred 1 week(s) ago. Severity of symptoms: At their worst the symptoms were mild, moderate, in the emergency department the symptoms are unchanged. Modifying factors: The symptoms are alleviated by nothing, the symptoms are aggravated by nothing. Associated signs and symptoms: The patient has no apparent associated signs or symptoms. The patient has not experienced similar symptoms in the past. The patient has been recently seen at the [facility] Emergency Department, last week. Patient reports headache shortness of breath cough fatigue malaise nosebleeds intermittently for 1 week. Was seen here at the onset of symptoms. States he was told to return for follow-up in 3 to 4 days so that is why he came in today.. Historical: - Allergies: 13:50 PENICILLINS; kg 13:50 Valium; kg 13:50 Xanax; kg - Home Meds: 13:50 benzonatate 100 mg oral cap 3 times per day [Active]; atorvastatin 40 mg oral tab 1 tab kg once daily [Active]; metoprolol tartrate 50 mg Oral tab 1 tab 2 times per day [Active]; levofloxacin 500 mg Oral tab 1 tab once daily [Active]; tramadol 50 mg Oral tab every 6 hours [Active]; albuterol sulfate Inhl [Active]; lisinopril 2.5 mg oral tab once daily [Active]; - PMHx: 13:50 Hypertension; Myocardial infarction; kg - PSHx: 13:50 Hernia sx; Appendectomy; eye sx; kg 13:53 Hemorrhoidectomy; kg - Immunization history:: Adult Immunizations not up to date, Client reports having NOT received the Covid vaccine. - Social history:: Smoking status: Patient reports the use of cigarette tobacco products, smokes one-half pack cigarettes per day. ROS: 15:04 Cardiovascular: Negative for chest pain, palpitations, and edema. kb 15:04 Constitutional: Positive for body aches, fatigue, malaise. 15:04 Respiratory: Positive for cough, Negative for dyspnea on exertion, hemoptysis, orthopnea, pleurisy, shortness of breath, sputum production, wheezing. 15:04 Neuro: Positive for headache. 15:04 All other systems are negative. Exam: 15:05 Constitutional: This is a well developed, well nourished patient who is awake, alert, kb and in no acute distress. Head/Face: Normocephalic, atraumatic. ENT: Moist Mucous membranes Respiratory: Respirations even and unlabored. No increased work of breathing, no retractions or nasal flaring. Skin: Warm, dry with normal turgor. Normal color. MS/ Extremity: Pulses equal, no cyanosis. Neurovascular intact. Full, normal range of motion. Neuro: Awake and alert, GCS 15, oriented to person, place, time, and situation. Moves all extremities. Normal gait. Psych: Awake, alert, with orientation to person, place and time. Behavior, mood, and affect are within normal limits. Vital Signs: 13:46 BP 129 / 81; Pulse 51; Resp 20; Temp 98.5; Pulse Ox 97% on R/A; Weight 84.82 kg (R); kg Height 5 ft. 6 in. (167.64 cm) (R); Pain 8/10; 13:46 Body Mass Index 30.18 (84.82 kg, 167.64 cm) kg MDM: 13:46 Patient medically screened. kb 15:04 Data reviewed: vital signs, nurses notes. Data interpreted: Pulse oximetry: on room air kb is 97 %. Interpretation: normal. Counseling: I had a detailed discussion with the patient and/or guardian regarding: the historical points, exam findings, and any diagnostic results supporting the discharge/admit diagnosis, lab results, radiology results, the need for outpatient follow up, a family practitioner, to return to the emergency department if symptoms worsen or persist or if there are any questions or concerns that arise at home. 05/05 13:52 Order name: COVID-19 : Document "Date of Symptom Onset" if Symptomatic. kb 05/05 13:52 Order name: Chest Pa And Lat (2 Views) XRAY; Complete Time: 14:32 kb 05/05 15:22 Order name: SARS-COV-2 RT PCR; Complete Time: 15:23 EDMS Administered Medications: No medications were administered Disposition: 18:06 Co-signature as Attending Physician, Gurpreet Baxter MD I agree with the assessment and diego plan of care. Disposition Summary: 05/05/21 15:23 Discharge Ordered Location: Home kb Condition: Stable kb Diagnosis - Acute upper respiratory infection, unspecified kb Followup: kb - With: Emergency Department - When: As needed - Reason: Worsening of condition Followup: kb - With: Private Physician - When: 2 - 3 days - Reason: Recheck today's complaints, Continuance of care, Re-evaluation by your physician Discharge Instructions: - Discharge Summary Sheet kb - Upper Respiratory Infection, Adult, [id number] kb - Viral Respiratory Infection, [id number] kb Forms: - Medication Reconciliation Form kb - Thank You Letter kb - Antibiotic Education kb - Prescription Opioid Use kb Signatures: Dispatcher [employer] EDMS Britt Cardona, DIRECTOR OF BUSINESS SYSTEMS-C DIRECTOR OF BUSINESS SYSTEMS-Gurpreet Neville MD MD cha Graham, Kristen, RN RN kg Corrections: (The following items were deleted from the chart) 14:20 13:52 CORONAVIRUS ordered. EDPR EDMS
[2021-05-05 16:40] VITALS: BP 129/81; TEMP 98.5; O2SAT 97
== END 2021-05-05 16:27 | disposition home or self-care (01) ==
LOC: ER 13:37
DX: J06.9 Acute upper respiratory infection, unspecified (principal); I10 Essential (primary) hypertension; F17.210 Nicotine dependence, cigarettes, uncomplicated; Z20.822 Contact with and (suspected) exposure to COVID-19; Z88.0 Allergy status to penicillin; Z88.5 Allergy status to narcotic agent
CPT/HCPCS: 71046; 99282; U0003

== ENCOUNTER 2021-08-31 14:48 | Emergency (ER) | payer OTHER ==
--- OUTSIDE RECORDS SUMMARY | 2021-08-31 14:52 | XMS REPORT | Continuity of Care Document ---
:1960 Author Organization [facility] t Address [address] [place] [place] [address] Care Team Providers Name Role Phone PARAG_S Attending Clinician Unavailable OWENS_T Attending Clinician Unavailable Neeraj ESPARZAP, F Attending Clinician PARAG_S Admitting Clinician Unavailable OWENS_T Admitting Clinician Unavailable Payers Payer Name Policy Type Policy Number Effective Date Expiration Date S [facility] [id number] 2021 (MEDICARE 00:00:00 REPLACEMENT HMO) Problems Condition Condition Condition Status Onset Resolution Last Treating Co mments Source Name Details Category Date Date Treatment Clinician Date Esophageal Esophageal Disease Active U nivers spasm spasm 4-30 ity of 00:00: [place] [facility] A-fib A-fib Disease Active Univers 4-24 ity of 00:00: [place] 00 [facility] Atrial Atrial Disease Active Univers fibrillati fibrillati 4-23 it y of on with on with 00:00: [place] RVR RVR 00 Medical [facility] Shortness Shortness Disease Active Uni vers of breath of breath 4-23 ity of 00:00: [place] [facility] NSTEMI NSTEMI Disease Active Univers (non-ST (non-ST 4-23 ity of elevated elevated 00:00: [place] myocardial myocardial 00 Me dical infarction infarction Br anch ) ) Tobacco Tobacco Disease Active Univers abuse abuse - ity of 00:00: [place] 00 [facility] Family Family Disease Active Univers history of history of 01-19 it y of early CAD early CAD 00:[place] [facility] Inguinal Inguinal Disease Active 2016-09 Unive rs hernia hernia 2-04 ity of 00:00: [place] 00 [facility] Obesity Obesity Disease Active 2016-09 Univers (BMI (BMI 2-04 ity of 30-39.9) 30-39.9) 00:00: [place] 00 Medical [facility] Status Status Disease Active Univers epilepticu epilepticu 01-22 it y of s s 00:00: [place] [facility] Seizure Seizure Disease Active Univers 01-22 ity of 00:00: [place] 00 [facility] Allergies, Adverse Reactions, Alerts Allergy Allergy Status Severity Reaction(s) Onset Inactive Treating Comm ents Source Name Type Date Date Clinician Benadryl Propensi Active Swelling 2018-09 Univ ers Allergy ty to 1-14 ity of Deconges adverse 00:00: [place] tant reaction 00 Medical s Branch BENADRYL DRUG Active High Swelling 2018-09 Univer s ALLERGY 1-14 ity of DECONGES 00:00: [place] TANT 00 Medical Branch Diazepam Propensi Active Anaphylaxis 2016-09 Patient Univers ty to 2-04 states ity of adverse 00:00: it'll [place] reaction 00 stop his Medica l s to heart Branch drug within seconds of taking it. DIAZEPAM DRUG Active High Anaphylaxis 2016-09 Uni vers INGREDI 2-04 ity of 00:00: [place] 00 Medical [facility] Penicill Propensi Active Anaphylaxis U nivers ins ty to 8-15 ity of adverse 00:00: [place] reaction 00 Medical s Branch PENICILL Drug Active Anaphylaxis Uni vers INS Class 8-15 ity of 00:00: [place] 00 Medical [facility] Bee Propensi Active Anaphylaxis Uni vers Sting / ty to 4-26 ity of [place] adverse 00:00: [place] reaction 00 Medical s to Branch drug BEE DRUG Active Anaphylaxis Unive rs STING / INGREDI 4 ity of VENOM 00:00: [place] 00 Medical Branch VENOM-WA DRUG Active Anaphylaxis Uni vers SP INGREDI 4 ity of 00:00: [place] 00 [facility] [place] Propensi Active Anaphylaxis 2014-0 U nivers sp ty to 01-22 ity of adverse 00:00: [place] [facility] [place] Social History Social Habit Start Date Stop Date Quantity Comments [facility] Exposure to Not sure [facility] SARS-CoV-2 (event) [facility] History of tobacco Cigarette Smoker University of use [facility] Cigarette 2020-08-14 2020-08-14 University of pack-years 00:00:00 00:00:00 [facility] Tobacco use and 2020-08-14 2020-08-14 Never used Universit y of exposure 00:00:00 00:00:00 [facility] Alcohol intake 2020-08-14 2020-08-14 Current University of 00:00:00 00:00:00 non-drinker of [facility] [place] [facility] alcohol [place] (finding) Cigarettes smoked 2020-08-14 2020-08-14 Univers ity of current (pack per 00:00:00 00:00:00 [place] ) - Reported Branch Tobacco Comment 2017-09-02 2017-09-02 patch did not Univer sity of 00:00:00 00:00:00 work "always [employer] trying Branch something" Smoking Status Start Date Stop Date Source Current every day smoker 2020-08-14 00:00:00 Uni versity of [facility] Medications Ordered Filled Start Stop Current Ordering Indication Dosage Frequency Signature Comments Components Source Medication Medication Date Date Medication? Clinician (SIG) Name Name ibuprofen 2019-09 2020- No 800mg 800 mg, Uni vers (IBU) 10-14 Oral, ity of tablet 800 22:15: 21:22 ONCE, 1 [place] as mg 00 :00 dose, Mon Medical 08/14/20 Branch at 1615, VANNA HYDROcodone 2019-09 2020- No 1{tbl} 1 tablet, Univers -acetaminop 10-14 Oral, ity of hen (NORCO) 22:15: 21:22 [place]CE[place] 1 [place] 10[place]325 mg 00 :00 dose, Mon Medic al tablet 1 08/14/20 Branch tablet at 1615, Routine ibuprofen 2019-09 Yes [id number] 600mg Take 1 Univers 600 mg -16 tablet by ity of tablet 00:00: mouth [place] 00 every 6 Medical (six) Branch hours as needed for Pain (scale 4-6). traMADOL 2017- Yes 50mg Take 1 Univers (ULTRAM) 50 9-19 tablet by ity of mg tablet 00:00: mouth [place] 00 every 6 Medical (six) Branch hours as needed for Pain (scale 4-6). atorvastati 2017-0 Yes 80mg Take 1 Univ ers n 80 mg 5-01 tablet by ity of tablet 00:00: mouth [place] 00 daily. Medical Branch pantoprazol 2018-0 Yes 40mg Take 1 Univ ers e 40 mg EC 5-01 tablet by ity of tablet 00:00: mouth [place] 00 daily. Medical Branch isosorbide 2017- Yes 30mg Take 1 Unive rs mononitrate 5-01 tablet by ity of 30 mg 24 hr 00:00: mouth [place] tablet 00 daily. Medical Branch aspirin 81 2018- Yes 81mg Take 1 Unive rs mg chewable 4-30 tablet by ity of tablet 00:00: mouth [place] 00 daily. Medical Branch lisinopril 2017-0 Yes 2.5mg Take 1 Univ ers 2.5 mg 4-30 tablet by ity of tablet 00:00: mouth [place] 00 daily. Medical Branch zolpidem 5 0 Yes 5mg Take 1 Unive rs mg tablet 4-30 tablet by ity o f 00:00: mouth at [place] 00 bedtime as Medical needed for Branch Insomnia. acetaminoph 2017- Yes 1{tbl} Take 1 Un lee en-codeine 4-30 tablet by ity of (TYLENOL-CO 00:00: mouth [place] DEINE #3) 00 every 4 Medical 300-30 mg (four) Branch tablet hours as needed for Pain (scale 7-10). metoprolol Yes 50mg Take 1 Unive rs succinate 4-30 tablet by ity o f XL 50 mg 24 00:00: mouth 2 [place] as hr tablet 00 (two) Medical times Branch daily. traMADOL 50 2016-09 Yes 50mg Take 1 Univ ers mg tablet 2-12 tablet by ity o f 00:00: mouth [place] 00 every 4 Medical (four) Branch hours as needed for Pain (scale 1-3). sulindac 2015-0 Yes 200mg Take 1 Univer s (CLINORIL) 8-15 tablet by ity of 200 mg 00:00: mouth 2 [place] tablet 00 (two) Medical times Branch daily. Immunizations Ordered Filled Immunization Date Status Comments Sour e Immunization Name Name Pneumococcal 2018-01-26 Completed [place] o f Polysaccharide, 00:00:00 [place] Med ical PPSV23 (PNEUMOVAX) [place] Vital Signs Vital Name Observation Time Observation Value Comments Source Systolic blood 2020-08-14 20:09:00 133 mm[Hg] Univer sity of pressure [facility] Diastolic blood 2020-08-14 20:09:00 96 mm[Hg] Unive rsity of pressure [facility] Heart rate 2020-08-14 20:09:00 54 /min Universi ty of [facility] Body temperature 2020-08-14 20:09:00 36.89 Shameka Univ ersity of [facility] Respiratory rate 2020-08-14 20:09:00 16 /min Univ ersity [facility] [place] [facility] Body height 2020-08-14 20:09:00 167.6 cm Universi ty of [facility] Body weight 2020-08-14 20:09:00 91.627 kg Universi ty of [facility] BMI 2020-08-14 20:09:00 32.60 kg/m2 Universi ty of [facility] Oxygen saturation in 2020-08-14 20:09:00 97 /min University of Arterial blood by [facility] [place] [facility] Pulse oximetry Branch Systolic blood 2020-08-14 20:09:00 133 mm[Hg] Univer sity of pressure [facility] Diastolic blood 2020-08-14 20:09:00 96 mm[Hg] Unive rsity of pressure [facility] Heart rate 2020-08-14 20:09:00 54 /min Universi ty of [facility] Body temperature 2020-08-14 20:09:00 36.89 Hsameka Univ ersity [facility] [place] [facility] Respiratory rate 2020-08-14 20:09:00 16 /min Univ ersity [facility] [place] [facility] Body height 2020-08-14 20:09:00 167.6 cm Universi ty of [facility] Body weight 2020-08-14 20:09:00 91.627 kg Universi ty of [place] [facility] [place] BMI 2020-08-14 20:09:00 32.60 kg/m2 Universi ty of [facility] Oxygen saturation in 2020-08-14 20:09:00 97 /min University of Arterial blood by [facility] [place] [facility] Pulse oximetry Branch Procedures This patient has no known procedures. Encounters Start End Encounter Admission Attending Care Care Encounter Source Date/Time Date/Time Type Type Clinicians Facility Department ID 2021-08-19 Outpatient CURRY_S JO[facility] [id number] [facility] 19:12:32 [id number] 2021-08-14 Outpatient OWENS_T JO[facility] [id number] [facility] 20:37:43 [id number] [facility] 2021-08-14 Outpatient CURRY[facility]S [facility] [id number] [facility] 14:22:17 0824 [facility] 2021-07-28 Emergency [facility] [id number] Univers 05:50:12 ity [facility] [place] [facility] 2021-07-17 2021-07-17 Out[facility] [id number] [facility] 2021-07-10 2021-07-10 [facility] [id number] [facility] 2021-07-04 2021[facility]07-04 [facility] [id number] [facility] 2021-06-26 2021-06-26 [facility] [id number] [facility] 2021-05-29 2021-05-29 [facility] [id number] [facility] 2021-05-22 2021-05-22 Outpatient [facility] [id number] [facility] 2021-05-04 2021-05-04 [facility] [id number] [facility] 2021-04-30 2021-04-30 Out[facility] [id number] [facility] 2021-04-30 2021-04-30 Outpatient [facility] [id number] [facility] 2021-04-06 2021-04-06 [facility] [id number] [facility] 2021-01-29 2021-01-29 Outpatient [facility] [id number] [facility] 06:02:00 06:02:00 0503 [facility] l [facility] 2021-01-18 2021-01-18 [id number] [facility] 12:00:00 12:00:00 0422 Medica l Group 2020-08-14 2020-08-14 Emergency [facility] [id number] 14:12:00 15:54:00 [place] [id number] [place] [id number] [place] [id number] 2020-08-14 2020-08-14 [facility] [id number] [facility] 14:12:00 15:54:00 [place] [id number] ity of [place] [id number] [facility] [id number] [facility] 084 Branch Results This patient has no known results.
[2021-08-31 16:12] LABS: Urine Blood Negative (Negative); Urine Glucose Negative (Negative); Urine Protein Negative (Negative)
[2021-08-31] MEDS ORDERED: ONDANSETRON 4 MG/2 ML VIAL ONE (16:15)
[2021-08-31] MEDS ORDERED: MEPERIDINE HCL 25 MG/ML SYR ONE (16:16)
[2021-08-31 16:57] LABS: Absolute Lymphocytes (CBC) 1.5 K/uL (0.7-4.9); Basophils % 0.9 % (0-1.3); Hematocrit 42.8 % (39.6-49.0); Lymphocytes % 19.3 % (15.3-44.8); MPV 7.7 fL (7.6-11.3); RBC Red Blood Cell Count 4.62 M/uL (4.33-5.43)
[2021-08-31 17:01] LABS: Protime INR 0.84
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
[2021-08-31 18:27] VITALS: TEMP 98.1
[2021-08-31 18:30] VITALS: O2SAT 97
[2021-08-31 18:31] VITALS: BP 119/75
== END 2021-08-31 18:19 | disposition home or self-care (01) ==
LOC: ER 14:48
DX: R51.9 Headache, unspecified (principal); R32 Unspecified urinary incontinence; F07.81 Postconcussional syndrome; I10 Essential (primary) hypertension; Z88.0 Allergy status to penicillin
CPT/HCPCS: 85025; 80048; 36415; 85610; 85730; 81003; 70450; 72125; 71260; 74177; 96375; 96374; 99284; Q9967; J2175; J2405

== ENCOUNTER 2021-11-19 21:24 | Emergency (ER) | payer OTHER ==
--- OUTSIDE RECORDS SUMMARY | 2021-11-19 21:27 | XMS REPORT | Continuity of Care Document ---
:1960 Author Organization [facility] t Address [address] [place] [address] Care Team Providers Name Role Phone Lexx ROSS Primary Care Physician Unavailable Lexx Ross Attending Clinician Unavailable ROXANE Attending Clinician Unavailable MINDI ALBARADO Attending Clinician Unavailable MINDI ALBARADO Attending Clinician Unavailable Ayo ALLRED, A Attending Clinician Unavailable GELY Attending Clinician Unavailable BENJAMINENS_T Attending Clinician Unavailable PARAG_S Attending Clinician Unavailable Neeraj JOYNER, F Attending Clinician GELY Admitting Clinician Unavailable OWENS_T Admitting Clinician Unavailable PARAG_S Admitting Clinician Unavailable Payers Payer Name Policy Type Policy Number Effective Date Expiration Date S [facility] [id number] MEDICARE ADVANTAGE 00:00:00 [facility]AN [facility] [id number] 2021 (MEDICARE 00:00:00 REPLACEMENT HMO) Problems Condition Condition Condition Status Onset Resolution Last Treating Co mments Source Name Details Category Date Date Treatment Clinician Date CAMDEN (acute CAMDEN (acute Disease Active 2020-09 U nivers kidney kidney 2-30 ity of injury) injury) 00:00: [address] Esophageal Esophageal Disease Active 2017-0 U nivers spasm spasm 4-30 ity of 00:00: [place] 00 [facility] A-fib A-fib Disease Active Univers 4-24 ity of 00:00: [place] 00 [facility] Atrial Atrial Disease Active Univers fibrillati fibrillati 4-23 it y of on with on with 00:00: [place] RVR RVR Medical Branch Shortness Shortness Disease Active Uni vers of breath of breath -23 ity of 00:00: [place] 00 [facility] NSTEMI NSTEMI Disease Active Univers (non-ST (non-ST 01-19 ity of elevated elevated 00:00: [place] myocardial myocardial 00 Me dical infarction infarction Br anch ) ) Tobacco Tobacco Disease Active Univers abuse abuse 01-19 ity of 00:00: [place] [facility] Family Family Disease Active Univers history of history of 01-19 [place] of early CAD early CAD [place] Inguinal Inguinal Disease Active 2016-09 Unive rs hernia hernia 2-04 ity of 00:00: [place] [facility] Obesity Obesity Disease Active 2016-09 Univers (BMI (BMI 2-04 ity of 30-39.9) 30-39.9) 00:00: [place] 00 [facility] Status Status Disease Active Univers epilepticu epilepticu 4-26 it y of s s 00:00: [place] [facility] Seizure Seizure Disease Active Univers 4-26 ity of 00:00: [place] 00 [facility] Allergies, Adverse Reactions, Alerts Allergy Allergy Status Severity Reaction(s) Onset Inactive Treating Comm ents Source Name Type Date Date Clinician BENADRYL DRUG Active High Swelling 2018-09 Univer s ALLERGY 1-14 ity of DECONGES 00:00: [place] TANT 00 Medical Branch Benadryl Propensi Active Swelling 2018-09 Univ ers Allergy ty to 1-14 ity of Deconges adverse 00:00: [place] tant reaction 00 Medical s Branch DIAZEPAM DRUG Active High Anaphylaxis 2016-09 Uni vers INGREDI 2-04 ity of 00:00: [place] 00 [facility] Diazepam Propensi Active Anaphylaxis 2016-09 Patient Univers ty to 2-04 states ity of adverse 00:00: it'll [place] reaction 00 stop his Medica l s to heart Branch drug within seconds of taking it. PENICILL Drug Active Anaphylaxis Uni vers INS Class 8-15 ity of 00:00: [place] 00 Medical Branch Penicill Propensi Active Anaphylaxis U nivers ins ty to 8-15 ity of adverse 00:00: [place] reaction 00 Medical s Branch BEE DRUG Active Anaphylaxis Unive rs STING / INGREDI 01-22 ity of VENOM 00:00: [place] 00 [facility] Branch Bee Propensi Active Anaphylaxis Uni vers Sting / ty to 01-22 ity of Venom adverse 00:00: [place] reaction 00 Medical s to Branch drug VENOM-WA DRUG Active Anaphylaxis Uni vers SP INGREDI 01-22 ity of 00:00: [place] 00 Medical Branch Venom-Wa Propensi Active Anaphylaxis U nivers sp ty to 01-22 ity of adverse 00:00: [place] reaction 00 Medical s Branch Social History Social Habit Start Date Stop Date Quantity Comments Source Exposure to Not sure University of SARS-CoV-2 (event) [facility] History of tobacco Cigarette Smoker University of use [facility] Education 2021-09-27 2021-09-27 8 University of 00:00:00 00:00:00 [facility] Alcohol intake 2021-09-27 2021-09-27 Current University 00:00:00 00:00:00 non-drinker of [facility] alcohol Branch (finding) Cigarette 2014-01-22 2014-01-22 University of pack-years 00:00:00 00:00:00 [facility] Tobacco use and 2014-01-22 2014-01-22 Never used Universit y of exposure 00:00:00 00:00:00 [facility] Cigarettes smoked 2014-01-22 2014-01-22 Univers ity of current (pack per 00:00:00 00:00:00 ) - Reported Branch Sex Ass[birth year] At [birth year] Universit y of 00:00:00 00:00:00 [facility] Smoking Status Start Date Stop Date Source Current every day smoker 2014-01-22 00:00:[address] [facility] Medications Ordered Filled Start Stop Current Ordering Indication Dosage Frequency Signature Comments Components Source Medication Medication Date Date Medication? Clinician (SIG) Name Name HYDROcodone 2021- Yes 4647 1{tbl} Take 1 U nivers -acetaminop 09-30 01-10 tablet by it y of hen (NORCO) 00:00[place] 05:59 [place] 10-325 mg 00 :00 every 8 Medical tablet (eight) Branch hours as needed for Pain (scale 7-10) for up to 7 days. Indication s: acute pain atorvastati 2017-0 Yes 80mg Take 1 Univ ers n 80 mg 5-01 tablet by ity of tablet 00:00: mouth [place] 00 daily. Medical Branch pantoprazol 2017- Yes 40mg Take 1 Univ ers e 40 mg EC 5-01 tablet by ity of tablet 00:00: mouth [place] 00 daily. Medical Branch isosorbide 2017-0 Yes 30mg Take 1 Unive rs mononitrate 5-01 tablet by ity of 30 mg 24 hr 00:00: mouth [place] tablet 00 daily. Medical Branch metoprolol 2017- Yes 50mg Take 1 Unive rs succinate 4-30 tablet by ity o f XL 50 mg 24 00:00: mouth 2 Lauri as hr tablet 00 (two) Medical times Branch daily. aspirin 81 2018- Yes 81mg Take 1 Unive rs mg chewable 4-30 tablet by ity of tablet 00:00: mouth [place] 00 daily. Medical Branch lisinopril 2017- Yes 2.5mg Take 1 Univ ers 2.5 mg 4-30 tablet by ity of tablet 00:00: mouth [place] 00 daily. Medical Branch zolpidem 5 Yes 5mg Take 1 Unive rs mg tablet 4-30 tablet by ity o f 00:00: mouth at [place] 00 bedtime as Medical needed for Branch Insomnia. sulindac 2015- Yes 200mg Take 1 Univer s (CLINORIL) 8-15 tablet by ity of 200 mg 00:00: mouth 2 [place] tablet 00 (two) Medical times Branch daily. Immunizations Ordered Filled Immunization Date Status Comments [facility] e Immunization Name Name Pneumococcal 2018-01-26 Completed University o f Polysaccharide, 00:00:00 [place] Med ical PPSV23 (PNEUMOVAX) Branch Procedures This patient has no known procedures. Encounters Start End Encounter Admission Attending Care Care Encounter Source Date/Time Date/Time Type Type Clinicians Facility Department ID 2021-10-24 [facility] [id number] [facility] [address] 13[facility]24[facility] [id number] [facility]-10-24 [facility] Ross, [facility] [id number] [facility] 13[facility]06:32 Mahad 33263 [facility] 2021-10-24 Outpatient Ross, [facility]LMLC [facility] 12:40:59 Mahad 04168 [facility] 2021-10-24 Outpatient Ross, [facility] 12:30[facility] Mahad 335[address] [facility] 2021-10-24 Outpatient Ross, [facility] 12:29:04 Mahad [id number] [facility] 2021-10-24 Outpatient Ross, [facility]LC [facility] 11:52:46 Mahad [id number] [facility] 2021-10-24 [facility] 11:44[facility] Mahad 45738 [facility] 2021-10-24 [facility] 11:[facility] Mahad [id number] [facility] 2021-11-01 2021-11-01 Outpatient Lion BETTS [facility] [id number] Univers 13:30:00 13:30:[id number] [facility] 2021-10-16 2021-10-16 ambulatory STLC [facility] [id number] [facility] 2021-10-16 2021-10-16 ambulatory [facility] [id number] [facility] 2021-10-09 2021-10-09 Outpatient NEELA FANG [facility] [id number] Univers 14:20:00 14:20:[address] [facility] 2021-10-09 2021-10-09 Outpatient NEELA FANG [facility] [id number] [facility] 13:00:00 13:00:00 [facility]ELA [id number] [facility] 2021-10-09 2021-10-09 ambulatory [facility]LMLC [facility] [id number] [facility] 2021-10-08 2021-10-08 ambulatory [facility]LMLC [facility] [id number] [facility] 2021-10-05 2021-10-05 ambulatory [facility]LMLC [facility] [id number] [facility] 2021-10-02 2021-10-02 Transition SIOBHAN [place] [id number] Univers 00:00:00 00:00:00 of Care Simón Carlos PEREA [id number] [facility] [id number] Tess dent [id number] [address] 2021-10-01 2021-10-01 ambulatory [facility]LMLC [facility] [id number] [facility] 2021-09-27 2021-09-30 Outpatient Kt [place] [id number] Univers 17:38:00 15:22:[address] [facility] 2021-09-19 2021-09-19 Outpatient OWENS_T DMG G [id number] [facility] 01:00:00 01:00:00 1222 [facility] 2021-08-10 2021-08-10 Outpatient OWENS_T DMG DMG [id number] [facility] 10:31:00 10:31:00 1112 [facility] 2021-08-07 2021-08-07 Outpatient CURRY_S DM DMG [id number] [facility] 02:14:00 02:14:00 1109 [facility] 2021-07-17 2021-07-17 Outpatient [facility]LMLC [facility] [id number] [facility] 2021-07-10 2021-07-10 Outpatient [facility]LMLC [facility] [id number] [facility] 2021-07-04 2021-07-04 Outpatient STLMLC [facility] [id number] [facility] 2021-06-26 2021-06-26 Outpatient [facility]LMLC [facility] [id number] [facility] 2021-05-29 2021-05-29 Outpatient [facility]MLC [facility] [id number] [facility] 2021-05-22 2021-05-22 Outpatient CURRY_S DMG DMG [id number] [facility] 05:13:00 05:13:00 0824 Medica l [facility] 2021-05-22 2021-05-22 Outpatient STLMLC [facility] [id number] [facility] 2021-05-04 2021-05-04 Outpatient [facility]LMLC [facility] [id number] [facility] 2021-04-30 2021-04-30 Outpatient [facility]LMLC [facility] [id number] [facility] 2021-04-30 2021-04-30 Outpatient [facility]LMLC [facility] [id number] [facility] 2021-04-06 2021-04-06 Outpatient [facility]LMLC [facility] [id number] [facility] 2021-01-29 2021-01-29 Outpatient DMG DMG [id number] [facility] 06:02:00 06:02:00 0503 Medica l Group 2021-01-18 2021-01-18 Outpatient DMG DMG [id number] [facility] 12:00:00 12:00:00 0422 Medica l Group 2020-08-14 2020-08-14 [facility] [id number] 14:12:00 15:54:00 Love Butcher [id number] [place] [id number] [place] [id number] Results This patient has no known results.
[2021-11-20] MEDS ORDERED: ONDANSETRON 4 MG/2 ML VIAL ONE (00:25)
[2021-11-20] MEDS ORDERED: MORPHINE 4 MG/ML SYR ONE ×2 (00:25→02:21)
[2021-11-20 00:27] LABS: Absolute Lymphocytes (CBC) 2.4 K/uL (0.7-4.9); Hematocrit 43.9 % (39.6-49.0); MPV 7.1 fL (7.6-11.3); RBC Red Blood Cell Count 4.74 M/uL (4.33-5.43)
[2021-11-20 00:36] LABS: Protime INR 0.99
[2021-11-20 00:49] LABS: ALT/SGPT 22 U/L (12-78); AST/SGOT 15 U/L (15-37); Albumin 3.6 g/dL (3.4-5.0); Alkaline Phosphatase 113 U/L (45-117); BUN Blood Urea Nitrogen 9 mg/dL (7-18); Bicarbonate 27 mmol/L (21-32); Bilirubin Direct < 0.1 mg/dL (0-0.2); Bilirubin Total 0.3 mg/dL (0.2-1.0); Glucose Level 118 mg/dL (74-106); Magnesium 2.4 mg/dL (1.8-2.4); NT PRO-BNP 59 pg/mL (<125); Potassium 3.2 mmol/L (3.5-5.1); Protein, Total 7.6 g/dL (6.4-8.2); Sodium Level 140 mmol/L (136-145)
--- NOTE | 2021-11-20 04:17 | ER ---
Nurse's Notes [facility] Name: Wood Jj Age: 61 yrs Sex: Male : 1960 Arrival Date: 11/19/2021 Time: 21:44 Bed 4 Private MD: Diagnosis: Headache Presentation: 11/19 22:10 Chief complaint: Patient states: extreme headache stating around 1930 tonight. shortly lg3 after headace started, nose started to bleed. denies taking any medications at home. Coronavirus screen: Client denies travel out of the [place] in the last 14 days. At this time, the client does not indicate any symptoms associated with coronavirus-19. Ebola Screen: No symptoms or risks identified at this time. Initial Sepsis Screen: Does the patient meet any 2 criteria? No. Patient's initial sepsis screen is negative. Does the patient have a suspected source of infection? No. Patient's initial sepsis screen is negative. Risk Assessment: Do you want to hurt yourself or someone else? Patient reports no desire to harm self or others. Onset of symptoms was November 19, 2021. 22:10 Method Of Arrival: EMS: [facility] lg3 22:10 Acuity: LISA 4 lg3 Triage Assessment: 22:13 Headache History: The patient has had previous headaches and this one is similar to lg3 previous episodes. General: Appears in no apparent distress. uncomfortable, Behavior is calm, cooperative. Pain: Complains of pain in left side of the back of head, left occipital area, right side of the back of head and right occipital area Pain does not radiate. Pain currently is 8 out of 10 on a pain scale. Quality of pain is described as crampy, heavy, pressure, sharp, throbbing. Pain: Pain began gradually, Also complains of nausea. EENT: No deficits noted. No signs and/or symptoms were reported regarding the EENT system. Neuro: No deficits noted. Level of Consciousness is awake, alert, obeys commands, Oriented to person, place, time, situation. Cardiovascular: No deficits noted. Capillary refill < 3 seconds Patient's skin is warm and dry. Respiratory: Airway is patent Trachea midline Respiratory effort is even, unlabored, Respiratory pattern is regular, symmetrical. GI: Abdomen is round non-distended. : No deficits noted. No signs and/or symptoms were reported regarding the genitourinary system. Derm: No deficits noted. No signs and/or symptoms reported regarding the dermatologic system. Musculoskeletal: No deficits noted. Circulation, motion, and sensation intact. Historical: - Allergies: 22:13 PENICILLINS; lg3 22:13 Valium; lg3 22:13 Xanax; lg3 - Home Meds: 22:13 atorvastatin 40 mg Oral tab 1 tab once daily [Active]; benzonatate 100 mg Oral cap 3 lg3 times per day [Active]; lisinopril 2.5 mg Oral tab once daily [Active]; metoprolol tartrate 50 mg Oral tab 1 tab 2 times per day [Active]; tramadol 50 mg Oral tab every 6 hours [Active]; - PMHx: 22:13 Hypertension; Myocardial infarction; stroke; lg3 - PSHx: 22:13 Appendectomy; eye sx; Hernia sx; Hemorrhoidectomy; lg3 - Immunization history:: Adult Immunizations up to date, Client reports having NOT received the Covid vaccine. - Social history:: Smoking status: Patient reports the use of cigarette tobacco products, smokes one-half pack cigarettes per day, Patient/guardian denies using alcohol. Screenin:18 Abuse screen: Denies threats or abuse. Denies injuries from another. Nutritional lg3 screening: No deficits noted. Tuberculosis screening: No symptoms or risk factors identified. 11/20 00:27 Fall Risk None identified. No fall in past 12 months (0 pts). No secondary diagnosis (0 st1 pts). IV access (20 points). Ambulatory Aid- None/Bed Rest/Nurse Assist (0 pts). Gait- Normal/Bed Rest/Wheelchair (0 pts) Mental Status- Oriented to own ability (0 pts). Total Azul Fall Scale indicates No Risk (0-24 pts). Assessment: 00:29 Pain: Complains of pain in head Pain currently is 10 out of 10 on a pain scale. Quality st1 of pain is described as aching, pressure, sharp, Pain began gradually. 01:50 Reassessment: Patient and/or family updated on plan of care and expected duration. Pain sm5 level reassessed. 04:33 Reassessment: Patient states symptoms have improved. pt states pain is 3/10. sm5 Vital Signs: 11/19 22:10 BP 146 / 87; Pulse 52; Resp 16 S; Temp 97.9(TE); Pulse Ox 100% on R/A; Weight 89.81 kg lg3 (R); Height 5 ft. 6 in. (167.64 cm) (R); Pain 8/10; 11/20 00:00 BP 122 / 42; Pulse 128; Resp 16; Pulse Ox 100% on R/A; st1 00:38 BP 117 / 67; Pulse 47; Resp 21; Pulse Ox 100% on R/A; sm5 03:45 BP 129 / 94; Pulse 82; Resp 16; Pulse Ox 97% on R/A; st1 04:34 BP 120 / 75; Pulse 69; Resp 18; Pulse Ox 100% on R/A; sm5 11/19 22:10 Body Mass Index 31.96 (89.81 kg, 167.64 cm) lg3 Vitals: 00:00 Cardiac Rhythm Assessment Sinus dominique. st1 ED Course: 11/19 21:44 Patient arrived in ED. kc5 22:13 Triage completed. lg3 22:13 Arm band placed on left wrist. lg3 22:38 Terry Nye MD is Attending Physician. kdr 11/20 00:01 Navya Brennan, BRIGIDA is Primary Nurse. st1 00:07 Inserted saline lock: 20 gauge in right antecubital area, using aseptic technique. st1 00:17 PT-INR Sent. st1 00:17 Troponin HS Sent. st1 00:17 Basic Metabolic Panel Sent. st1 00:17 NT PRO-BNP Sent. st1 00:17 Magnesium Sent. st1 00:17 LFT's Sent. st1 00:17 CBC with Diff Sent. st1 00:26 XRAY Chest (1 view) In Process Unspecified. EDMS 00:27 Patient has correct armband on for positive identification. Bed in low position. Call st1 light in reach. Side rails up X 1. product evangelist on. Pulse ox on. NIBP on. Lights dimmed. Warm blanket given. Verbal reassurance given. Head of bed elevated. 01:26 CT Head Brain wo Cont In Process Unspecified. EDMS 04:34 No provider procedures requiring assistance completed. IV discontinued, intact, sm5 bleeding controlled, No redness/swelling at site. Pressure dressing applied. Administered Medications: 00:28 Drug: morphine 4 mg Route: IVP; Site: right antecubital; sm5 00:28 Drug: Zofran (Ondansetron) 4 mg Route: IVP; Site: right antecubital; sm5 02:28 Drug: morphine 4 mg Route: IVP; Site: right antecubital; sm5 04:31 Drug: Potassium Chloride 40 mEq Route: PO; 5 04:33 Drug: Leroy (HYDROcodone-acetaminophen) 10 mg-325 mg 1 tabs Route: PO; 5 Outcome: 04:16 Discharge ordered by MD. kdr 04:35 Discharged to home via wheelchair, with family. sm5 04:35 Condition: stable 04:35 Discharge instructions given to patient, family, Instructed on discharge instructions, follow up and referral plans. medication usage, Demonstrated understanding of instructions, follow-up care, medications, Prescriptions given X 2. 04:35 Patient left the ED. 5 Signatures: Dispatcher [employer] EDMS Terry Nye MD MD kdr Gibson, Lacie, RN RN lg3 Anne Cruz 5 Emely Covington RN RN sm5 Navya Brennan, BRIGIDA RN st1 Corrections: (The following items were deleted from the chart) 00:02 00:01 Pain: Denies pain. st1 st1 00:02 00:01 Neuro: Oriented to person, place, situation, Ocean Fishing Guide are equal bilaterally Speech st1 is slurred, Facial symmetry appears normal, Pupils are PERRLA, st1 00:02 00:01 Cardiovascular: No deficits noted. Rhythm is sinus rhythm st1 st1 00:02 00:01 Respiratory: No deficits noted. st1 st1
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
[2021-11-20] MEDS ORDERED: POTASSIUM CL SA 10 MEQ TAB PO ONE (04:26)
[2021-11-20] MEDS ORDERED: HYDROCODONE/APAP 10/325 TAB ONE (04:36)
[2021-11-20 04:49] VITALS: TEMP 97.9
[2021-11-20 04:53] VITALS: BP 120/75; O2SAT 100
--- NOTE | 2021-11-20 07:22 | EKG ---
Test Date: 2021-11-20 Test Time: 00:21:31 Cupola Tapper Helper: LICHA MEASUREMENT RESULTS: Intervals: Rate: 46 ME: 154 QRSD: 80 QT: 484 QTc: 423 [place]: P: 65 ME: 154 QRS: 47 T: 67 INTERPRETIVE STATEMENTS: Sinus bradycardia Otherwise normal ECG Compared to ECG 05/01/2021 18:24:17 No significant changes Electronically Signed On 11-20-21 07:22:28 PATIENT COORDINATOR by Stefan Nova
--- NOTE | 2021-11-20 08:38 | RAD REPORT ---
EXAM DESCRIPTION: RAD - Chest Single View - 11/20/2021 12:26 am CLINICAL HISTORY: Headache Chest pain. COMPARISON: Chest Pa And Lat (2 Views) dated 05/05/2021; Chest Single View dated 05/01/2021; Chest Singl e View dated 11/14/2018; CHEST SINGLE VIEW dated 09/12/2013 FINDINGS: Portable technique limits examination quality. The lungs are grossly clear. The heart is normal in size. No displaced fractures. IMPRESSION: No acute intrathoracic process suspected.
--- NOTE | 2021-11-20 11:24 | RAD REPORT ---
EXAM DESCRIPTION: CT Head/Brain Without Contrast 11/20/2021 at 1: 08 AM CLINICAL HISTORY: Headache COMPARISON: CT Head/Brain Without Contrast 08/31/2021 TECHNIQUE: Head/brain axial images acquired without contrast. Coronal and sagittal reformats created . Exam performed according to departmental dose-optimization program which includes automated exposur e control, adjustment of mA and/or kV according to patient size, and/or use of iterative reconstructi on technique. FINDINGS: No midline shift, intracranial hemorrhage, or hydrocephalus. Unchanged small hypodense abnormality at midlevel right parietal lobe white matter (axial series 201, image 17; coronal series 203, image 47). Paranasal sinuses clear. Mastoid air cells clear. No skull fracture or significant skull lesion. IMPRESSION: Small, hypodense, midlevel, right parietal lobe white matter abnormality unchanged from 08/31/2021. This may represent old ischemic infarct, demyelination, old inflammation, or less likely neoplasm. MR head/brain without and with contrast may be helpful (if there are no contraindications). Electronically signed by: Bandar Mott MD 11/20/2021 1:58 AM LICENSED AND CERTIFIED MIDWIFE Due to temporary technical issues with the PACS/Fluency reporting system, reports are being signed by the in house radiologists without review as a courtesy to insure prompt reporting. The interpreting radiologist is fully responsible for the content of the report.
== END 2021-11-20 04:35 | disposition home or self-care (01) ==
LOC: ER 21:24
DX: R51.9 Headache, unspecified (principal); I10 Essential (primary) hypertension; I25.2 Old myocardial infarction; Z88.0 Allergy status to penicillin; Z88.5 Allergy status to narcotic agent
CPT/HCPCS: 93005; 85025; 80048; 36415; 83735; 85610; 80076; 84484; 83880; 70450; 71045; 96375; 96374; 99285; J2405

== ENCOUNTER 2022-02-08 11:34 | Observation (INO) | payer MEDICARE, OTHER ==
--- OUTSIDE RECORDS SUMMARY | 2022-02-08 11:37 | XMS REPORT | Continuity of Care Document ---
:1960 Author Organization [facility] t Address [address] [place] [address] Care Team Providers Name Role Phone Lexx Ross Primary Care Physician Lexx Ross Attending Clinician Unavailable Doctor Unassigned, Name Attending Clinician Unavailable ROXANE Attending Clinician Unavailable MINDI ALBARADO Attending Clinician Unavailable MINDI ALBARADO Attending Clinician Unavailable Ayo ALLRED, A Attending Clinician Unavailable GELY Attending Clinician Unavailable OWENS_T Attending Clinician Unavailable PARAG_S Attending Clinician Unavailable Neeraj JOYNER, F Attending Clinician GELY Admitting Clinician Unavailable OWENS_T Admitting Clinician Unavailable CURRY_S Admitting Clinician Unavailable Payers Payer Name Policy Type Policy Number Effective Date Expiration Date S [facility] [id number] 2021 (MEDICARE 00:00:00 REPLACEMENT HMO) Problems Condition Condition Condition Status Onset Resolution Last Treating Co mments Source Name Details Category Date Date Treatment Clinician Date CAMDEN (acute CAMDEN (acute Disease Active 2020-09 U nivers kidney kidney 2-30 ity of injury) injury) 00:00: [place] [id number] Medical Branch Esophageal Esophageal Disease Active 2017-0 U nivers spasm spasm 4-30 ity of 00:00: [address] A-fib A-fib Disease Active Univers 4-24 ity of 00:00: [place] 00 Medical Branch Atrial Atrial Disease Active Univers fibrillati fibrillati -23 it y of on with on with 00:00: [place] RVR RVR 00 Medical Branch Shortness Shortness Disease Active Uni vers of breath of breath -23 ity of 00:00: [place] 00 Medical Branch NSTEMI NSTEMI Disease Active Univers (non-ST (non-ST 01-19 ity of elevated elevated 00:00: [place] myocardial myocardial 00 Me dical infarction infarction Br anch ) ) Tobacco Tobacco Disease Active Univers abuse abuse 01-19 ity of 00:00: [place] 00 Medical Branch [...] Status Status Disease Active Univers epilepticu epilepticu 26 it y of s s 00:00: Medical Branch Seizure Seizure Disease Active Univers [...] to Not sure University of SARS-CoV-2 (event) [facility] History of tobacco Cigarette Smoker University of use [facility] Alcohol intake 2021-09-27 2021-09-27 Current [facility] 00:00:00 00:00:00 non-drinker of [facility] alcohol Branch (finding) Education 2021-09-27 2021-09-27 8 University of 00:00:00 00:00:00 [facility] Cigarette 2014-01-22 2014-01-22 University of pack-years 00:00:00 00:00:00 [facility] Tobacco use and 2014-01-22 2014-01-22 Never used Universit y of exposure 00:00:00 00:00:00 [facility] Cigarettes smoked 2014-01-22 2014-01-22 Univers ity of current (pack per 00:00:00 00:00:00 ) - Reported Branch Sex Ass[birth year] At [birth year] Universit y of 00:00:00 00:00:00 [facility] Smoking Status Start Date Stop Date Source Current every day smoker 2014-01-22 00:00:00 Uni versity of [facility] Medications Ordered Filled Start Stop Current Ordering Indication Dosage Frequency Signature Comments Components Source Medication Medication Date Date Medication? Clinician (SIG) Name Name HYDROcodone 2021- No 4647 1{tbl} Take 1 U nivers -acetaminop [...] mouth [place] tablet 00 daily. Medical Branch atorvastati 2017- Yes 80mg Take 1 Univ ers n 80 mg 5-01 tablet by ity of tablet 00:00: mouth [place] 00 daily. Medical Branch pantoprazol Yes 40mg Take 1 Univ ers e 40 mg EC 5-01 tablet by ity of tablet 00:00: mouth [place] 00 daily. Medical Branch isosorbide Yes 30mg Take 1 Unive rs mononitrate 5-01 tablet by ity of 30 mg 24 hr 00:00: mouth [place] tablet 00 daily. Medical Branch metoprolol 2017-0 Yes 50mg Take 1 Unive rs succinate 4-30 tablet by ity o f XL 50 mg 24 00:00: mouth 2 [place] as hr tablet 00 (two) Medical times Branch daily. aspirin 81 2017-0 Yes 81mg Take 1 Unive rs mg chewable 4-30 tablet by ity of tablet 00:00: mouth [place] 00 daily. Medical Branch lisinopril 2018-0 Yes 2.5mg Take 1 Univ ers 2.5 mg 4-30 tablet by ity of tablet 00:00: mouth [place] 00 daily. Medical Branch zolpidem 5 2018-0 Yes 5mg Take 1 Unive rs mg tablet 4-30 tablet by ity o f 00:00: mouth at [place] 00 bedtime as Medical needed for Branch Insomnia. metoprolol 2018-0 Yes 50mg Take 1 Unive rs succinate 4-30 tablet by ity o f XL 50 mg 24 00:00: mouth 2 [place] as hr tablet 00 (two) Medical times Branch daily. aspirin 81 2018-0 Yes 81mg Take 1 Unive rs mg chewable 4-30 tablet by ity of tablet 00:00: mouth 00 daily. Medical Branch lisinopril 2017- Yes 2.5mg Take 1 Univ ers 2.5 mg 4-30 tablet by ity of tablet 00:00: mouth 00 daily. Medical Branch zolpidem 5 2018- Yes 5mg Take 1 Unive rs mg tablet 4-30 tablet by ity o f 00:00: mouth at [place] 00 bedtime as Medical needed for Branch Insomnia. sulindac 2016- Yes 200mg Take 1 Univer s (CLINORIL) 8-15 tablet by ity of 200 mg 00:00: mouth 2 [place] tablet 00 (two) Medical times Branch daily. sulindac 2016-0 Yes 200mg Take 1 Univer s (CLINORIL) 8-15 tablet by ity of 200 mg 00:00: mouth 2 [place] tablet 00 (two) Medical times Branch daily. Immunizations Ordered Filled Immunization Date Status Comments [facility] e Immunization Name Name Pneumococcal 2018-01-26 Completed University o f Polysaccharide, 00:00:00 [place] Med ical PPSV23 (PNEUMOVAX) Branch Pneumococcal 2018-01-26 Completed University o f Polysaccharide, 00:00:00 [place] Med ical PPSV23 (PNEUMOVAX) Branch Procedures Procedure Date / Time Performing Clinician Source Performed AUTHORIZATION FOR 2021-11-12 06:01:00 Doctor Unassigned, No Univ [facility] [place] RELEASE OF PHI Name Medical Branch Encounters Start End Encounter Admission Attending Care Care Encounter Source Date/Time Date/Time Type Type Clinicians Facility Department ID 2021-10-24 Outpatient [facility], [facility] [id number] Common 13:24:10 Mahad [id number] [facility] 2021-10-24 Outpatient Ross, [facility] [id number] Common 13:06:32 Maahd 66215 [facility] 2021-10-24 Outpatient Ross, [facility] [id number] Common 12:40:59 Mahad 97933 [facility] 2021-10-24 Outpatient Ross, [facility] [id number] Common 12:30:18 Mahad 82678 [facility] 2021-10-24 Outpatient Ross, STLMLC STL[facility]C [id number] Common 12:29:04 Mahad 33778 [facility] 2021-10-24 Outpatient Ross, STLMLC STLMLC [id number] Common 11:52:46 Mahad 90762 [facility] 2021-10-24 Outpatient Ross, STLMLC STLMLC [id number] Common 11:44:17 Mahad 24682 [facility] 2021-10-24 Outpatient Ross, STLMLC STLMLC [id number] Common 11:37:11 Mahad 25110 [facility] 2022-01-22 2022-01-22 ambulatory STLMLC STLMLC [id number] Common 00:00:00 00:00:00 [facility] 2022-01-17 2022-01-17 ambulatory STLMLC STLMLC [id number] Common 00:00:00 00:00:00 [facility] 2021-11-12 2021-11-12 Orders Doctor NIR [id number] Univers 00:00:00 00:00:00 Only Unassigned, SHAI [id number] ity of [facility] [id number] [place] as [id number] [address] 2021-11-01 2021-11-01 Outpatient Lion [facility] [id number] Univers 13:30:00 13:30:00 HERNAN [id number] ity [facility] 2021-10-16 2021-10-16 ambulatory STLMLC STLMLC [id number] Common 00:00:00 00:00:00 [facility] 2021-10-16 2021-10-16 ambulatory STLMLC STLMLC [id number] Common 00:00:00 00:00:00 [facility] 2021-10-09 2021-10-09 Outpatient NEELA [facility] [id number] Univers 14:20:00 14:20:00 NEELA ALBARADO [facility] 2021-10-09 2021-10-09 Outpatient NEELA [facility] [id number] Univers 13:00:00 13:00:00 NEELA ALBARADO [id number] [facility] 2021-10-09 2021-10-09 ambulatory STLMLC STLMLC [id number] Common 00:00:00 00:00:00 [facility] 2021-10-08 2021-10-08 ambulatory STLMLC STLMLC [id number] Common 00:00:00 00:00:00 [facility] 2021-10-05 2021-10-05 ambulatory STLMLC STLMLC [id number] Common 00:00:00 00:00:00 [facility] 2021-10-02 2021-10-02 Transition SIOBHAN [place] [id number] Univers 00:00:00 00:00:00 of Care Simón PEREA [id number] it christina MARATHON [id number] [place] [phone] [address] 2021-10-01 2021-10-01 ambulatory STLMLC STLMLC [id number] Common 00:00:00 00:00:00 [facility] 2021-09-27 2021-09-30 Outpatient Kt HONG [facility] [id number] Univers 17:38:00 15:22:00 VIKASH [facility] 2021-09-19 2021-09-19 Outpatient OWENS_T DMG [id number] [facility] 01:00:00 01:00:00 [facility] 2021-08-10 2021-08-10 Outpatient OWENS_T DMG DMG [id number] [facility] 10:31:00 10:31:00 [facility] 2021-08-07 2021-08-07 Outpatient CURRY_S SAMPSON DMG [id number] [facility] 02:14:00 02:14:00 [facility] 2021-07-17 2021-07-17 Outpatient STLMLC STLMLC [id number] Common 00:00:00 00:00:00 [facility] 2021-07-10 2021-07-10 Outpatient STLMLC STLMLC [id number] Common 00:00:00 00:00:00 [facility] 2021-07-04 2021-07-04 Outpatient STLMLC STLMLC [id number] Common 00:00:00 00:00:00 [facility] 2021-06-26 2021-06-26 Outpatient STLMLC STLMLC [id number] Common 00:00:00 00:00:00 [facility] 2021-05-29 2021-05-29 Outpatient STLMLC STLMLC [id number] Common 00:00:00 00:00:00 [facility] 2021-05-22 2021-05-22 Outpatient CURRY_S DMG SAMPSONG [id number] [facility] 05:13:00 05:13:00 0824 [facility] 2021-05-22 2021-05-22 Outpatient STLMLC STLMLC [id number] Common 00:00:00 00:00:00 [facility] 2021-05-04 2021-05-04 Outpatient STLMLC STLMLC [id number] Common 00:00:00 00:00:00 [facility] 2021-04-30 2021-04-30 Outpatient STLMLC STLMLC [id number] Common 00:00:00 00:00:00 [facility] 2021-04-30 2021-04-30 Outpatient STLMLC STLMLC [id number] Common 00:00:00 00:00:00 [facility] 2021-04-06 2021-04-06 Outpatient STLMLC STLMLC [id number] Common 00:00:00 00:00:00 [facility] 2021-01-29 2021-01-29 Outpatient DMG DMG [id number] [facility] 06:02:00 06:02:00 0503 [facility] 2021-01-18 2021-01-18 Outpatient DMG SAMPSONG [id number] [facility] 12:00:00 12:00:00 0422 [facility] 2020-08-14 2020-08-14 Emergency [place], [facility] [id number] 14:12:00 15:54:00 Love Butcher [id number] [place] [id number] [place] [id number] Results This patient has no known results.
[2022-02-08] MEDS ORDERED: TENECTEPLASE 50 MG/10 ML VIAL IV ONE (12:03)
[2022-02-08 12:06] LABS: Absolute Lymphocytes (CBC) 1.3 K/uL (0.7-4.9); Hematocrit 41.7 % (39.6-49.0); Lymphocytes % 14.7 % (15.3-44.8); MPV 6.3 fL (7.6-11.3); RBC Red Blood Cell Count 4.62 M/uL (4.33-5.43)
[2022-02-08 12:23] LABS: Protime INR 0.88
--- NOTE | 2022-02-08 12:25 | RAD REPORT ---
EXAM DESCRIPTION: CT - Ct Stroke Brain Wo Cont - 02/08/2022 12:10 pm CLINICAL HISTORY: Neuro deficit, acute, stroke suspected COMPARISON: Head Brain Wo Cont dated 11/20/2021 TECHNIQUE: Axial 5 millimeter thick images of the head were obtained without IV contrast. All CT scans are performed using dose optimization technique as appropriate and may include automated exposure control or mA/KV adjustment according to patient size. FINDINGS: No intracranial hemorrhage, mass, or cerebral edema. No cortical level acute infarction id entifiable. No cortical edema or sulcal effacement identified. A wedge-shaped area of decreased atten uation is seen in the right parietal lobe unchanged from October imaging. Scattered areas of decreas ed attenuation are seen in the cerebral white matter. This is a typical chronic ischemic pattern but can mask nonhemorrhagic CVA ill-defined decreased attenuation is seen in the left-sided external caps ule and insular cortex region not clearly different from comparison. Zarate matter-white matter differe ntiation is preserved.No significant atrophy changes are seen. Ventricles are normal. Visualized portions of the mastoid air cells, paranasal sinuses, and orbits are unremarkable. Images were initially available only in the exception folder which precludes generating intermediate report and also precludes comparison to any prior imaging. Preliminary findings were given to Dr. Wm maria 11:51 a.m.. IMPRESSION: No intracranial hemorrhage is present. 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 Patient has cerebral white matter chronic ischemic changes are also similar to October. Chronic ischemic changes can mask nonhemorrhagic acute infarction. MR brain followup can be obtained if there is ongoing concern for acute ischemia.
[2022-02-08] MEDS ORDERED: METHYLPREDNISOLONE 125 MG INJ ONE (13:46)
[2022-02-08] MEDS ORDERED: ACETAMINOPHEN 650MG/RECT SUPP PR ONE (13:46)
--- NOTE | 2022-02-08 13:54 | RAD REPORT ---
EXAM DESCRIPTION: RAD - Chest Single View - 02/08/2022 1:49 pm CLINICAL HISTORY: Weakness Chest pain. COMPARISON: Chest Single View dated 11/20/2021; Chest Pa And Lat (2 Views) dated 05/05/2021; Chest Sing le View dated 05/01/2021; Chest Single View dated 11/14/2018 FINDINGS: Portable technique limits examination quality. The lungs are grossly clear. The heart is normal in size. No displaced fractures. IMPRESSION: No acute intrathoracic process suspected.
--- NOTE | 2022-02-08 17:36 | RAD REPORT ---
EXAM DESCRIPTION: MRI - Brain W/Wo Cont - 02/08/2022 5:25 pm CLINICAL HISTORY: Neuro deficit, acute, stroke suspected Headache, drowsiness, CVA symptomology COMPARISON: <Comparisons> TECHNIQUE: Multi-sequence, multiplanar MR imaging of the brain was performed with contrast. FINDINGS: No intracranial hemorrhage, hydrocephalus, or extra-axial fluid collection. Small area of gliosis is seen posterior parietal region. Moderate gliosis right frontal region.. No intracranial ma ss. DWI is negative for acute CVA. The midline structures are normally formed. Mastoid air cells and paranasal sinuses are clear. Post-contrast images show no abnormal enhancement to suggest tumor or infection. IMPRESSION: Negative for acute CVA or other acute intracranial process. No pathologic post-contrast enhancement suspected.
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
--- NOTE | 2022-02-08 18:01 | ER ---
Nurse's Notes [facility] Name: Wood Jj Age: 61 yrs Sex: Male : 1960 Arrival Date: 02/08/2022 Time: 11:36 Bed 3 Private MD: Diagnosis: Altered mental status, unspecified;Weakness-Left sided;Expressive aphasia -improved Presentation: 02/08 11:35 Chief complaint: Pt sister stated pt began slurring words about an hour ago, headache vg1 and left sided weakness. Pt appears to have slurred speech and is repeating words over and over. 11:35 Note Pt taken back to CT via wheelchair; code stroke called at 1136. Onset of symptoms vg1 was February 08, 2022 at 10:30. 11:35 Method Of Arrival: Wheelchair vg1 11:35 Acuity: LISA 2 vg1 11:35 Coronavirus screen: At this time, the client does not indicate any symptoms associated jl7 with coronavirus-19. Ebola Screen: No symptoms or risks identified at this time. An acute neurological deficit is present. The charge nurse has been notified. The patient has been moved to a treatment area. Pre-hospital glucose is not applicable to this patient. Initial Sepsis Screen: Does the patient meet any 2 criteria? No. Patient's initial sepsis screen is negative. Does the patient have a suspected source of infection? No. Patient's initial sepsis screen is negative. Risk Assessment: Do you want to hurt yourself or someone else? Patient reports no desire to harm self or others. Triage Assessment: 11:35 The onset of the patients symptoms was February 08, 2022 at 10:30. General: Appears vg1 uncomfortable, Behavior is anxious. Pain: Complains of pain in head. Neuro: Level of Consciousness is awake, alert, obeys commands, Oriented to person, place, time, situation, Reports headache. Stroke Activation: Symptom onset < 3 hours Physician: Stroke Attending; Name: DR MONTOYA; Notified At: ; Arrived At: Physician: Chief Stroke Resident; Name: ; Notified At: ; Arrived At: Physician: Stroke Resident; Name: ; Notified At: ; Arrived At: Physician: ED Attending; Name: ; Notified At: ; Arrived At: Physician: ED Resident; Name: ; Notified At: ; Arrived At: Historical: - Allergies: 12:07 PENICILLINS; jl7 12:07 Valium; jl7 12:07 Xanax; jl7 15:58 Morphine; ll1 - PMHx: 12:07 Hypertension; Myocardial infarction; stroke; jl7 13:19 Hypercholesterolemia; jl7 - PSHx: 12:07 Appendectomy; eye sx; Hemorrhoidectomy; Hernia sx; jl7 - Immunization history:: Adult Immunizations unknown. - Social history:: Smoking status: unknown. Screenin:50 Abuse screen: Denies threats or abuse. Denies injuries from another. Nutritional jl7 screening: No deficits noted. Tuberculosis screening: No symptoms or risk factors identified. Fall Risk No fall in past 12 months (0 pts). Secondary diagnosis (15 points) CVA, IV access (20 points). Ambulatory Aid- None/Bed Rest/Nurse Assist (0 pts). Gait- Impaired (20 pts.). Mental Status- Overestimates/Forgets Limitations (15 pts.). Total Azul Fall Scale indicates High Risk Score (45 or more points). Fall prevention measures have been instituted. Side Rails Up X 2 Placed Close to Nursing Station Frequent Obs/Assessments Occuring Family Present and informed to notify staff if the need to leave the bedside As available patient and family educated on Fall Prevention Program and Strategies. Assessment: 11:38 Reassessment: Pt to CT via wheelchair with BRIGIDA Lo. jl7 11:50 VAN Scoring: Arm Drift: Flaccid/no antigravity Visual Disturbance: No visual jl7 disturbance noted. Aphasia: Expressive aphasia noted. Provider notified of +VAN scoring. The patient has not been NPO before screening. The patient is currently on the following diet: home The patient is alert, and able to follow commands. The patient exhibits slurred or garbled speech. Provider notified of the indication for Speech Therapy consult. The patient is exhibiting difficulty speaking. Provider notified of the indication for Speech Therapy consult. The patient does not exhibit difficulty understanding words. The patient is able to swallow own secretions with no drooling or need for suction. Speech consult Speech consult The patient failed the bedside swallow screening. The patient will be kept NPO until cleared by Speech Therapy or Physician. Provider notified of bedside swallow screening results: Terry Montoya MD. T-PA (Activase) Screening: Contraindications: Other: Facility no longer using T-PA. 13:45 Reassessment: Swelling noted to bilateral eyes, ERD notified, see MAR for orders. jl7 19:45 Reassessment: Pt currently sitting in bed eating doritos and talking on phone and sm5 talking with family that are at bedside. Pt states he is feeling better than he does this morning but has a headache. pain meds given to pt as ordered. pt alert and oriented x4. Neuro: Sandhu Agitation-Sedation Scale (RASS): 0 - Alert and Calm Level of Consciousness is awake, alert, obeys commands, Oriented to person, place, time, situation, Sexual Abuse Counsellor are equal bilaterally Moves all extremities. Speech is normal, Facial symmetry appears normal, Intact. EENT: Eyes swelling to eyelids. 20:45 Reassessment: No changes from previously documented assessment. Patient and/or family sm5 updated on plan of care and expected duration. Pain level reassessed. 21:45 Reassessment: No changes from previously documented assessment. Patient is alert, sm5 oriented x 3, equal unlabored respirations, skin warm/dry/pink. Vital Signs: 11:51 BP 142 / 99; Pulse 51; Resp 19; Temp 97.9; Pulse Ox 97% ; Weight 91.17 kg (R); jl7 19:00 BP 103 / 77; Pulse 85; Resp 14; Pulse Ox 99% on R/A; sm5 20:00 BP 108 / 70; Pulse 45; Resp 14; Pulse Ox 99% on R/A; sm5 21:00 BP 123 / 93; Pulse 48; Resp 16; Pulse Ox 98% on R/A; sm5 22:00 BP 127 / 89; Pulse 47; Resp 18; Pulse Ox 95% on R/A; sm5 NIH Stroke Scale Scores: 11:50 NIHSS Score: 11 jl7 12:47 NIHSS Score: 11 kdr ED Course: 11:36 Patient arrived in ED. eb 11:36 Colin Corona RN is Primary Nurse. jl7 11:37 Arm band placed on Patient placed in an exam room, on a stretcher. ll1 11:39 Terry Montoya MD is Attending Physician. kdr 11:50 Patient has correct armband on for positive identification. Bed in low position. Call jl7 light in reach. Side rails up X2. Client placed on continuous cardiac and pulse oximetry monitoring. NIBP monitoring applied. Warm blanket given. 11:55 Initial lab(s) drawn, by az, sent to lab. Inserted saline lock: 20 gauge in right jl7 wrist, using aseptic technique. Blood collected. 11:57 Inserted saline lock: 20 gauge in left forearm, using aseptic technique. vg1 11:59 Triage completed. vg1 12:12 CT Stroke Brain w/o Contrast In Process Unspecified. EDMS 13:06 EKG done, by ED staff, reviewed by Terry Montoya MD. jl7 13:51 Stroke CXR 1 View In Process Unspecified. EDMS 17:27 Brain W/Wo Cont In Process Unspecified. EDMS 17:58 Celso Castrejon MD is Hospitalizing Provider. kdr 22:53 No provider procedures requiring assistance completed. Patient admitted, IV remains in [facility] place. Administered Medications: 12:30 Drug: TNK FOR STROKE - Tenecteplase 0.25 mg/kg {Co-Signature: mc3 (Mariela red7 RN).} Route: IV; Rate: per protocol; Site: right forearm; 13:45 Drug: SOLU-Medrol (methylPrednisoLONE) 125 mg Route: IVP; Site: right wrist; [facility] 13:45 Drug: Tylenol Suppository 650 mg Route: VT; [facility] 19:00 Drug: Nicoderm CQ Patch 21 mg/24 hr 1 patches {Note: left arm.} Route: Transdermal; [facility] Site: affected area; 22:53 Follow up: Response: No adverse reaction [facility] 19:45 Drug: traMADol 50 mg Route: PO; [facility] 22:49 Follow up: Response: No adverse reaction [facility] Medication: 12:27 VIS not applicable for this client. 7 Point of Care Testing: Blood Glucose: 11:51 Blood Glucose: 96 mg/dL; 7 Ranges: Output: 22:54 Urine: 700ml (Voided); Total: 700ml. [facility] Outcome: 18:00 Decision to Hospitalize by Provider. kdr 22:53 Admitted to ICU accompanied by nurse, via stretcher, with chart, Report called to [facility] BRIGIDA Hernández 22:53 Condition: stable 22:53 Instructed on the need for admit. 23:39 Patient left the ED. [facility] NIH Stroke Scale - NIH Stroke Score Date: 02/08/2022 Time: 11:50 Total Score = 11 1a. Level of Consciousness (LOC) - 0(Alert) 1b. Level of Consciousness (LOC) (Month \T\ Age) - 0(Both) 1c. LOC Commands (Open \T\ Closes Eyes/Mattress Packer) - 0(Both) 2. Best Gaze (Lateral Gaze Paresis) - 0(Normal) 3. Visual Field Loss - 0(No visual loss) 4. Facial Palsy - 0(Normal) 5a. Left Arm: Motor (10-second hold) - 3(No effort against gravity) 5b. Right Arm: Motor (10-second hold) - 0(No drift) 6a. Left Leg: Motor (5-second hold - always test supine) - 1(Drift) 6b. Right Leg: Motor (5-second hold - always test supine) - 0(No drift) 7. Limb Ataxia (finger/nose \T\ heel/jolley - test with eyes open) - 2(Present in two limbs) 8. Sensory Loss (pinprick arms/legs/face) - 1(Mild to moderate loss) 9. Best Language: Aphasia (description/naming/reading) - 2(Severe aphasia) 10. Dysarthria (speech clarity - read or repeat words) - 2(Severe) 11. Extinction and Inattention (visual/tactile/auditory/spatial/personal) - 0(No abnormality) Initials: jl7 NIH Stroke Scale - NIH Stroke Score Date: 02/08/2022 Time: 12:47 Total Score = 11 1a. Level of Consciousness (LOC) - 0(Alert) 1b. Level of Consciousness (LOC) (Month \T\ Age) - 0(Both) 1c. LOC Commands (Open \T\ Closes Eyes/Mattress Packer) - 0(Both) 2. Best Gaze (Lateral Gaze Paresis) - 0(Normal) 3. Visual Field Loss - 0(No visual loss) 4. Facial Palsy - 0(Normal) 5a. Left Arm: Motor (10-second hold) - 3(No effort against gravity) 5b. Right Arm: Motor (10-second hold) - 0(No drift) 6a. Left Leg: Motor (5-second hold - always test supine) - 1(Drift) 6b. Right Leg: Motor (5-second hold - always test supine) - 0(No drift) 7. Limb Ataxia (finger/nose \T\ heel/jolley - test with eyes open) - 2(Present in two limbs) 8. Sensory Loss (pinprick arms/legs/face) - 1(Mild to moderate loss) 9. Best Language: Aphasia (description/naming/reading) - 2(Severe aphasia) 10. Dysarthria (speech clarity - read or repeat words) - 2(Severe) 11. Extinction and Inattention (visual/tactile/auditory/spatial/personal) - 0(No abnormality) Initials: kdr Signatures: Dispatcher [employer] EDMS Terry Montoya MD MD kdr Colin Corona RN RN jl7 Susan Buitrago Victoria RN RN vg1 Arabella Cooper RN RN ll1 Emely Covington RN RN sm5 Mariela Veliz RN mc3 Corrections: (The following items were deleted from the chart) 12:01 11:35 Chief complaint: Pt sister stated pt began slurring words about an hour vg1 ago, headache and left sided weakness. vg1
[2022-02-08] MEDS ORDERED: NICOTINE 21 MG/PAT TD ONE (18:38)
--- NOTE | 2022-02-08 18:44 | P.HP ---
Certification for Inpatient Patient admitted to: Observation With expected LOS: <2 Midnights Patient will require the following post-hospital care: None Practitioner: I am a practitioner with admitting privileges, knowledge of patient current condition, hospital course, and medical plan of care. Services: Services provided to patient in accordance with Admission requirements found in Title 42 Section 412.3 of the Code of Federal Regulations Patient History Date of Service: 02/08/22 Primary Care Provider: Dr. Ross Reason for admission: Left-sided weakness History of Present Illness: 61-year-old male with history of hypertension, hyperlipidemia, CVA presents emergency department for aphasia, left-sided weakness. His symptoms began at around 9:30 AM he was brought to the emergency department and arrived around 1130 given patient's presentation he arrived within the window for tPA he was given TNK which was administered at 1230. His CT of the head without contrast was negative for acute findings he also had an MRI with and without contrast which was negative for acute CVA or other acute intracranial processes with no pathological postcontrast enhancement suspected. Patient symptoms have improved significantly when I spoke to him he is not having any aphasia or dysarthria, he has gained significant use of the left upper extremity and left lower extremity back with just mild drift noted to each. Given that he received TNKase he will need to be observed in the ICU throughout the evening. The patient did develop some puffiness to both of his eyes during her stay in the emergency department likely reaction to the medication or contrast, he was given Solu-Medrol in the emergency department. Allergies Benzodiazepines Allergy (Severe, Verified 05/10/13 04:11) Anaphylaxis diazepam [From Valium] Allergy (Severe, Verified 05/10/13 04:11) Anaphylaxis ketorolac tromethamine [From Toradol] Allergy (Severe, Verified 05/10/13 04:11) Anaphylaxis Penicillins Allergy (Severe, Verified 05/10/13 04:11) Anaphylaxis venom-honey bee [bee venom (honey bee)] Allergy (Severe, Verified 08/14/12 17:11) Anaphylaxis venom-wasp [Wasp Venom] Allergy (Severe, Verified 08/14/12 17:11) Anaphylaxis alprazolam [From Xanax] Allergy (Unverified 11/30/16 19:10) Unknown amphetamine aspartate [From Adderall] Allergy (Unverified 09/10/15 18:21) Unknown amphetamine sulfate [From Adderall] Allergy (Unverified 09/10/15 18:21) Unknown dextroamphetamine saccharate [From Adderall] Allergy (Unverified 09/10/15 18:21) Unknown dextroamphetamine sulfate [From Adderall] Allergy (Unverified 09/10/15 18:21) Unknown lorazepam [From Ativan] Allergy (Unverified 12/28/14 14:42) Unknown trazodone Allergy (Unverified 11/30/16 19:10) Unknown Home Medications: ALPRAZolam [Xanax*] 0.5 mg PO TIDP PRN #90 tab 05/12/13 Lisinopril/Hydrochlorothiazide [Zestoretic 10-12.5 mg Tablet] 1 each PO DAILY #30 05/12/13 Metoprolol Tartrate [Lopressor*] 50 mg PO BID #60 05/12/13 Temazepam [Restoril*] 15 mg PO BEDTIME PRN PRN #20 cap 05/12/13 traMADol HCL [Ultram*] 50 mg PO Q6H PRN #60 05/12/13 Hydrocodone 10/APAP 325 [Clinton 10/325*] 1 tab PO Q6H PRN #30 tab 05/13/13 Pantoprazole [Protonix Tab*] 40 mg PO DAILY #30 tab 05/13/13 Clarithromycin 500 mg PO BID #28 tablet 05/14/13 metroNIDAZOLE [Flagyl*] 500 mg PO BID #28 tablet 05/14/13 - Past Medical/Surgical History Diabetic: No -: Hypertension -: Hyperlipidemia -: CVA -: eye birdie when 5 -: appy Psychosocial/ Personal History: Patient lives at home with his sister - Family History Mother -: Cancer - Social History Smoking Status: Current every day smoker Counseled patient to stop smoking for: less than 10 minutes Smoking therapy provided: Yes Alcohol use: No CD- Drugs: No Caffeine use: Yes Place of Residence: Home Review of Systems 10-point ROS is otherwise unremarkable Neurological: Weakness, Change in Speech, As per HPI Physical Examination - Physical Exam General: Alert, In no apparent distress, Oriented x3 HEENT: Atraumatic, PERRLA, Mucous membr. moist/pink, EOMI, Sclerae nonicteric Neck: Supple, 2+ carotid pulse no bruit, No LAD, Without JVD or thyroid abnormality Respiratory: Clear to auscultation bilaterally, Normal air movement Cardiovascular: Normal S1 S2, Irregular heart rate/rhythm (Sinus bradycardia rate around 47) Capillary refill: <2 Seconds Gastrointestinal: Normal bowel sounds, No tenderness Musculoskeletal: No tenderness Integumentary: No rashes Neurological: Normal speech, Normal tone, Cranial nerves 3-12 intact, Normal affect, Abnormal strength (4 out of 5 strength left upper and lower extremity noted to have drift of the upper and lower extremity) - Studies Laboratory Data (last 24 hrs) 02/08/22 11:53: PT 10.5, INR 0.88, APTT 30.5 02/08/22 11:53: WBC 8.7, Hgb 14.6, Hct 41.7, Plt Count 321 02/08/22 11:53: Sodium 136, Potassium 4.0, BUN 17, Creatinine 1.65 H, Glucose 104 Assessment and Plan - Plan Assessment: Left-sided weakness suspect TIA versus CVA Acute kidney injury Hypertension Hyperlipidemia Plan: Left-sided weakness suspect TIA versus CVA: MRI/MRA head negative for acute findings. Will obtain carotid Doppler, consult neurology. Continue with atorvastatin, folic acid at this time will initiate therapy with aspirin/Plavix 24 hours after receiving TN K. Monitor in the ICU throughout the evening. Neurochecks. Acute kidney injury: Continue with IV fluids at the evening, recheck renal function in the morning. Hypertension: Continue home medications Hyperlipidemia: Continue home medications DVT PPX: Lovenox after 24 hours from TNK, SCDs for now Code status: Full Discharge Plan: Home Plan to discharge in: 24 Hours - Advance Directives Does patient have a Living Will: No Does patient have a Durable POA for Healthcare: No - Code Status/Comfort Care Code Status Assessed: Yes (Full code) Critical Care: No Time Spent Managing Pts Care (In Minutes): 55
[2022-02-08] MEDS ORDERED: TRAMADOL HCL 50 MG TAB ONE (19:47)
[2022-02-08] MEDS ORDERED: ATORVASTATIN 40 MG TAB PO SCH (23:50)
[2022-02-08] MEDS ORDERED: ONDANSETRON 4 MG/2 ML VIAL IV PRN (23:50)
[2022-02-08 23:59] VITALS: BMI 31.4
[2022-02-08] MEDS ORDERED: DIPHENHYDRAMINE 50 MG/ML VIAL IV ONE (23:59)
[2022-02-09] MEDS ORDERED: FAMOTIDINE 20 MG/2 ML VIAL IV ONE
[2022-02-09] MEDS: NA CHLORIDE 0.9% 1,000 ML IV SCH ×2 (00:31→11:12)
[2022-02-09 05:28] LABS: Absolute Lymphocytes (CBC) 0.7 K/uL (0.7-4.9); Hematocrit 41.1 % (39.6-49.0); Lymphocytes % 9.4 % (15.3-44.8); MPV 6.8 fL (7.6-11.3); RBC Red Blood Cell Count 4.52 M/uL (4.33-5.43)
[2022-02-09 05:34] VITALS: O2SAT 95
[2022-02-09 05:50] LABS: Albumin 3.2 g/dL (3.4-5.0); Bilirubin Total 0.4 mg/dL (0.2-1.0); Potassium 4.7 mmol/L (3.5-5.1); Protein, Total 6.6 g/dL (6.4-8.2)
[2022-02-09] MEDS: ACETAMINOPHEN 500 MG TAB PO PRN ×2 (08:15→12:50)
[2022-02-09] MEDS ORDERED: FOLIC ACID 1 MG TABLET PO SCH (09:00)
--- NOTE | 2022-02-09 12:17 | RAD REPORT ---
EXAM DESCRIPTION: CT - Head Brain Wo Cont - 02/09/2022 12:06 pm CLINICAL HISTORY: R/O hemorrhage, S/P TNK COMPARISON: Ct Stroke Brain Wo Cont dated 02/08/2022; Head Brain Wo Cont dated 11/20/2021; Brain W/Wo Cont dated 02/08/2022 TECHNIQUE: All CT scans are performed using dose optimization technique as appropriate and may inclu de automated exposure control or mA/KV adjustment according to patient size. FINDINGS: No intracranial hemorrhage, hydrocephalus or extra-axial fluid collection.No areas of brai n edema or evidence of midline shift. Remote right parietal lobe infarct. Remote small left thalamic infarcts. The paranasal sinuses and mastoids are clear. The calvarium is intact. IMPRESSION: No acute intracranial abnormality. Specifically, no evidence of acute intracranial hemor rhage. Remote right parietal lobe infarct.
[2022-02-09] MEDS ORDERED: HYDROCODONE/APAP 5/325 MG TAB PO ONE (13:10)
[2022-02-09 13:16] VITALS: TEMP 97.7
--- NOTE | 2022-02-09 14:58 | EKG ---
Test Date: 2022-02-08 Test Time: 13:07:55 [employer]: KRISTEN MEASUREMENT RESULTS: Intervals: Rate: 44 TX: 148 QRSD: 76 QT: 508 QTc: 434 [place]: P: 70 TX: 148 QRS: 68 T: 70 INTERPRETIVE STATEMENTS: Marked sinus bradycardia Abnormal ECG Compared to ECG 11/20/2021 00:21:31 No significant changes Electronically Signed On 02-09-22 14:54:26 CDT by Mino Tsai
[2022-02-09 15:37] VITALS: BP 125/70
[2022-02-09 15:40] LABS: Urine Appearance Clear (Clear); Urine Bilirubin Negative (Negative); Urine Blood Negative (Negative); Urine Color Yellow (Yellow); Urine Glucose 2+ (Negative); Urine Protein Negative (Negative)
[2022-02-09 15:46] LABS: Urine Microscopic Reflex NO UMIC
--- NOTE | 2022-02-09 16:14 | RAD REPORT ---
EXAM DESCRIPTION: - CP - 02/09/2022 3:13 pm CLINICAL HISTORY: CVA/TIA COMPARISON: CAROTID ARTERY BILATERAL dated 05/10/2013 TECHNIQUE: Real-time sonographic evaluation of both carotid systems was performed. Doppler interroga tion was performed with waveform tracing bilaterally. FINDINGS: Normal high resistance waveforms are noted in both external carotid arteries. The common c arotid arteries and internal carotid arteries show normal low resistance waveforms. Mild hard plaque noted at the carotid bulbs. Peak systolic and end diastolic velocity values and the ICA/CCA ratios are in the non-hemodynamically significant range. Antegrade flow seen in both vertebral arteries. IMPRESSION: Mild hard plaque at the carotid bulbs noted but no hemodynamically significant stenosis.
--- NOTE | 2022-02-09 16:22 | P.DS ---
Admission Date: 02/08/22 Discharge Date: 02/09/22 Primary Care Provider: Dr. Ross Disposition: DC HOME/HOME HEALTH CARE Discharge Condition: GOOD Reason for Admission: Left-sided weakness Consultations: Neurology - Dr. Chandler Procedures: Problem List Transient aphasia and left-sided weakness secondary to TIA Acute kidney injury Hypertension Hyperlipidemia h/o left rotator cuff tear h/o left ACL injury Brief History of Present Illness: 61yo M, PMH: HTN, HLD, prior CVA with L-sided residual weakness. Presents to ED for aphasia, and worsened left-sided weakness. Symptoms began ~930am and arrive at ~1130. Patient was given TNK @1230. CT Head: negative for acute findings. MRI: negative for acute CVA or other acute intracranial processes. Symptoms have improved significantly at time of admission. No longer having any aphasia or dysarthria, but reports some ongoing weakness of left upper and lower extremities. Hospital Course: Patient's speech returned to his baseline. Left arm/leg weakness improved. MRI was negative for any acute/new stroke/bleed/mass. Repeat CT of brain was performed on 02/09 with no change, no bleed. He was evaluated by PT and ambulated with a walker. He was deemed stable for discharge home with home health /PT, recommended supervision for the next few days. Patient stated his brother and sister live with him. Discharged to continue home medications with addition of plavix. Instructed to start tomorrow. Follow up with Neurology - Dr. Chandler as scheduled this coming week. Vital Signs/Physical Exam: Temp Pulse Resp BP Pulse Ox 97.7 F 45 L 19 125/70 99 02/09/22 12:00 02/09/22 15:00 02/09/22 15:00 02/09/22 15:00 02/09/22 11:00 General: Alert, In no apparent distress, Oriented x3 HEENT: EOMI, Sclerae nonicteric Neck: Supple Respiratory: Clear to auscultation bilaterally, Normal air movement Cardiovascular: No edema, Regular rate/rhythm Gastrointestinal: Soft and benign, Non-distended, No tenderness Musculoskeletal: No erythema, No tenderness Integumentary: No significant lesion Neurological: Normal speech, Cranial nerves 3-12 intact, Normal affect, Other (LUE: 4+/5, LLE: 4+/5) Laboratory Data at Discharge: WBC 8.0 K/uL (4.3-10.9) 02/09/22 05:06 Hgb 14.3 g/dL (13.6-17.9) 02/09/22 05:06 Hct 41.1 % (39.6-49.0) 02/09/22 05:06 Plt Count 302 K/uL (152-406) 02/09/22 05:06 PT 10.5 SECONDS (9.2-12.8) 02/08/22 11:53 INR 0.88 02/08/22 11:53 APTT 30.5 SECONDS (21.7-34.4) 02/08/22 11:53 Sodium 136 mmol/L (136-145) 02/09/22 05:06 Potassium 4.7 mmol/L (3.5-5.1) 02/09/22 05:06 BUN 20 mg/dL (7-18) H 02/09/22 05:06 Creatinine 1.30 mg/dL (0.55-1.3) 02/09/22 05:06 Glucose 171 mg/dL (74-106) H 02/09/22 05:06 Total Bilirubin 0.4 mg/dL (0.2-1.0) 02/09/22 05:06 AST 27 U/L (15-37) 02/09/22 05:06 ALT 41 U/L (12-78) 02/09/22 05:06 Alkaline Phosphatase 110 U/L (45-117) 02/09/22 05:06 Triglycerides 70 mg/dL (<150) 02/09/22 05:06 Cholesterol 178 mg/dL (<200) 02/09/22 05:06 HDL Cholesterol 52 mg/dL (40-60) 02/09/22 05:06 Cholesterol/HDL Ratio 3.42 02/09/22 05:06 Home Medications: Aspirin [Aspirin EC 81 MG] 81 mg PO DAILY 30 Days #30 tablet. 02/09/22 Atorvastatin Calcium [Lipitor*] 40 mg PO DAILY 02/09/22 Clopidogrel Bisulfate [Plavix*] 75 mg PO DAILY 30 Days #30 tablet 02/09/22 Folic Acid 1 mg PO DAILY 30 Days #30 tablet 02/09/22 Gabapentin 600 mg PO BID 02/09/22 Lisinopril [Zestril] 1 tab PO DAILY 02/09/22 Metoprolol Succinate [Toprol Xl*] 50 mg PO BID 02/09/22 New Medications: Aspirin [Aspirin EC 81 MG] 81 mg PO DAILY 30 Days #30 tablet. Folic Acid 1 mg PO DAILY 30 Days #30 tablet Clopidogrel Bisulfate [Plavix*] 75 mg PO DAILY 30 Days #30 tablet Diet: AHA Activity: Fall precautions Followup: Mahad Ross, DO [Primary Care Provider] - Time spent managing pt's care (in minutes): 45
[2022-02-10] MEDS ORDERED: ASPIRIN EC 81 MG TAB PO SCH (09:00)
[2022-02-10] MEDS ORDERED: CLOPIDOGREL 75 MG TABLET PO SCH (09:00)
== END 2022-02-09 17:00 | disposition home health service (06) ==
LOC: ER 11:34 → ERHOLD 18:19 → 3RD-ICU 23:05
PROVIDERS: ADMIT Hospitalist; ATTEND Hospitalist
DX: I69.954 Hemiplegia and hemiparesis following unspecified cerebrovascular disease affecting left non-dominant side (principal); R47.01 Aphasia; N17.9 Acute kidney failure, unspecified; R41.82 Altered mental status, unspecified; E78.5 Hyperlipidemia, unspecified; I10 Essential (primary) hypertension; I25.2 Old myocardial infarction; F17.200 Nicotine dependence, unspecified, uncomplicated; Z71.6 Tobacco abuse counseling; Z79.82 Long term (current) use of aspirin; Z79.02 Long term (current) use of antithrombotics/antiplatelets; Z79.899 Other long term (current) drug therapy; Z88.0 Allergy status to penicillin; Z88.8 Allergy status to other drugs, medicaments and biological substances; Z91.030 Bee allergy status; Z91.038 Other insect allergy status; Z20.822 Contact with and (suspected) exposure to COVID-19; Z80.9 Family history of malignant neoplasm, unspecified
CPT/HCPCS: 92977; 93005; 85025 ×2; 80048; 36415; 85610; 80061; 82947; 85730; 81003; 80053; 70450 ×2; 71045; 93880; 70553; 97112; 97116; 97161; 97530; 99291; 99292; U0003; A9577; J1200; J3101; J7030 ×2; J2930; J3490; G0378 ×2

== ENCOUNTER 2022-03-29 19:09 | Inpatient (IN) | payer MEDICARE ==
--- NOTE | 2022-03-29 19:39 | RAD REPORT ---
EXAM DESCRIPTION: CT - Ct Stroke Brain Wo Cont - 03/29/2022 7:32 pm CLINICAL HISTORY: Numbness COMPARISON: January 2022 TECHNIQUE: Computed axial tomography of the head was obtained. All CT scans are performed using dose optimization technique as appropriate and may include automated exposure control or mA/KV adjustment according to patient size. FINDINGS: An intracranial bleed is not seen . The ventricles are normal in caliber. No extra-axial fluid collection is noted. 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 Small old left thalamic lacunar infarction Fluid within the sinuses/ mastoids is not seen. IMPRESSION: No acute intracranial abnormality is seen. If patient's symptoms persist MRI of the bra in would be recommended. Dr Baxter of the emergency room was notified at 7:21 p.m. March 29, 2022
[2022-03-29] MEDS ORDERED: THIAMINE 200 MG/2 ML INJ ONE (19:43)
[2022-03-29] MEDS ORDERED: MULTIVITAMINS 10 ML VIAL (INJ) IV ONE (19:44)
[2022-03-29] MEDS ORDERED: NA CHLORIDE 0.9% 2,000 ML ONE (19:44)
[2022-03-29 19:45] LABS: Absolute Lymphocytes (CBC) 1.5 K/uL (0.7-4.9); Lymphocytes % 16.7 % (15.3-44.8); MPV 6.8 fL (7.6-11.3); RBC Red Blood Cell Count 4.13 M/uL (4.33-5.43)
[2022-03-29] MEDS ORDERED: FOLIC ACID 5 MG/ML VIAL ONE (19:46)
--- NOTE | 2022-03-29 19:58 | RAD REPORT ---
EXAM DESCRIPTION: Kleber Single View03/29/2022 7:52 pm CLINICAL HISTORY: Hypertension COMPARISON: January 2022 FINDINGS: The lungs appear clear of acute infiltrate. The heart is normal size IMPRESSION: No acute abnormalities displayed
[2022-03-29 20:06] LABS: ALT/SGPT 23 U/L (12-78); AST/SGOT 23 U/L (15-37); Albumin 3.9 g/dL (3.4-5.0); Alkaline Phosphatase 124 U/L (45-117); BUN Blood Urea Nitrogen 28 mg/dL (7-18); Bicarbonate 19 mmol/L (21-32); Bilirubin Direct 0.1 mg/dL (0-0.2); Bilirubin Total 0.5 mg/dL (0.2-1.0); Glomerular Filtration Rate 37 ml/min (=/>90); Glucose Level 124 mg/dL (74-106); Magnesium 2.3 mg/dL (1.8-2.4); NT PRO-BNP 73 pg/mL (<125); Potassium 4.3 mmol/L (3.5-5.1); Protein, Total 7.9 g/dL (6.4-8.2); Sodium Level 133 mmol/L (136-145); Troponin High Sensitivity 5.6 pg/mL (<58.9)
--- NOTE | 2022-03-29 20:47 | EDPHYS ---
Physician Documentation [facility] Name: Wood Jj Age: 61 yrs Sex: Male : 1960 Arrival Date: 03/29/2022 Time: 19:14 Bed 8 Private MD: ED Physician Gurpreet Baxter HPI: 03/29 19:56 This 61 yrs old Male presents to ER via Ambulatory with complaints of Altered diego Mental Status. 19:56 The patient presents with confusion, trouble concentrating. Onset: The symptoms/episode diego began/occurred at an unknown time. Possible causes: CVA or TIA, drug use, alcohol, low blood sugar, seizure. Associated signs and symptoms: Pertinent positives: agitation, combativeness, confusion, gait abnormality, headache, palpitations. Current symptoms: In the emergency department the patient's symptoms are unchanged from the initial presentation, despite home interventions. Patient's baseline: Neuro: alert and fully oriented. It is unknown whether or not the patient has had similar symptoms in the past. Historical: - Allergies: 19:26 Morphine; vc1 19:26 PENICILLINS; vc1 19:26 Valium; vc1 19:26 Xanax; vc1 - Home Meds: 19:27 Plavix 75 mg Oral tab 1 tab once daily [Active]; vc1 - PMHx: 19:26 Hypercholesterolemia; Hypertension; Myocardial infarction; stroke; vc1 - PSHx: 19:26 Appendectomy; eye sx; Hemorrhoidectomy; Hernia sx; vc1 - Immunization history:: Adult Immunizations up to date, Client reports having NOT received the Covid vaccine. - Social history:: Smoking status: Patient reports the use of cigarette tobacco products, smokes one-half pack cigarettes per day. ROS: 19:57 Constitutional: Negative for fever, chills, and weight loss, Eyes: Negative for injury, diego pain, redness, and discharge, ENT: Negative for injury, pain, and discharge, Neck: Negative for injury, pain, and swelling, Cardiovascular: Negative for chest pain, palpitations, and edema, Respiratory: Negative for shortness of breath, cough, wheezing, and pleuritic chest pain, Abdomen/GI: Negative for abdominal pain, nausea, vomiting, diarrhea, and constipation, Back: Negative for injury and pain, : Negative for injury, bleeding, discharge, and swelling, Skin: Negative for injury, rash, and discoloration, Psych: Negative for depression, anxiety, suicide ideation, homicidal ideation, and hallucinations, Allergy/Immunology: Negative for hives, rash, and allergies, Endocrine: Negative for neck swelling, polydipsia, polyuria, polyphagia, and marked weight changes, Hematologic/Lymphatic: Negative for swollen nodes, abnormal bleeding, and unusual bruising. 19:57 MS/extremity: Positive for jerking arms and legs. 19:57 Neuro: Positive for altered mental status, gait disturbance, weakness. Exam: 19:57 Constitutional: This is a well developed, well nourished patient who is awake, alert, diego and in no acute distress. Head/Face: Normocephalic, atraumatic. Eyes: Pupils equal round and reactive to light, extra-ocular motions intact. Lids and lashes normal. Conjunctiva and sclera are non-icteric and not injected. Cornea within normal limits. Periorbital areas with no swelling, redness, or edema. ENT: Nares patent. No nasal discharge, no septal abnormalities noted. Tympanic membranes are normal and external auditory canals are clear. Oropharynx with no redness, swelling, or masses, exudates, or evidence of obstruction, uvula midline. Mucous membranes moist. Neck: Trachea midline, no thyromegaly or masses palpated, and no cervical lymphadenopathy. Supple, full range of motion without nuchal rigidity, or vertebral point tenderness. No Meningismus. Chest/axilla: Normal chest wall appearance and motion. Nontender with no deformity. No lesions are appreciated. Cardiovascular: Regular rate and rhythm with a normal S1 and S2. No gallops, murmurs, or rubs. Normal PMI, no JVD. No pulse deficits. Respiratory: Lungs have equal breath sounds bilaterally, clear to auscultation and percussion. No rales, rhonchi or wheezes noted. No increased work of breathing, no retractions or nasal flaring. Abdomen/GI: Soft, non-tender, with normal bowel sounds. No distension or tympany. No guarding or rebound. No evidence of tenderness throughout. Back: No spinal tenderness. No costovertebral tenderness. Full range of motion. Male : Normal genitalia with no discharge or lesions. Skin: Warm, dry with normal turgor. Normal color with no rashes, no lesions, and no evidence of cellulitis. MS/ Extremity: Pulses equal, no cyanosis. Neurovascular intact. Full, normal range of motion. Psych: Awake, alert, with orientation to person, place and time. Behavior, mood, and affect are within normal limits. 19:57 ECG was reviewed by the Attending Physician. 19:57 Neuro: Orientation: is normal, appropriate for stated age, no acute changes, Mentation: is normal, appropriate for stated age, no acute changes, Memory: immediate memory is intact, remote memory is intact. recent memory is impaired, Cranial nerves: grossly normal, is grossly normal based on the patient's age, no acute changes, Cerebellar function: arms and legs jerking. Vital Signs: 19:51 BP 112 / 66; Pulse 57; Resp 19 S; Pulse Ox 99% on R/A; lg3 19:51 Weight 91.63 kg (R); Height 5 ft. 6 in. (167.64 cm) (R); lg3 23:00 BP 123 / 80; Pulse 47; Resp 18 S; Pulse Ox 98% on R/A; lg3 19:51 Body Mass Index 32.60 (91.63 kg, 167.64 cm) lg3 NIH Stroke Scale Scores: 19:57 NIHSS Score: 0 diego MDM: 19:20 Patient medically screened. diego 20:01 Differential Diagnosis altered mental status. Differential Diagnosis: CVA, electrolyte diego abnormality, alcohol intoxication, hypoglycemia, intracranial bleed, overdose, TIA, UTI, volume depletion. Data reviewed: vital signs, nurses notes, lab test result(s), EKG, radiologic studies, CT scan, plain films. Data interpreted: phlebotomy tech: rate is 57 beats/min, rhythm is regular, Pulse oximetry: on room air is 99 %. Test interpretation: by ED physician or midlevel provider: ECG, plain radiologic studies. Counseling: I had a detailed discussion with the patient and/or guardian regarding: the historical points, exam findings, and any diagnostic results supporting the discharge/admit diagnosis, lab results, radiology results. 03/29 19:25 Order name: Basic Metabolic Panel; Complete Time: 20:39 diego 03/29 19:25 Order name: CBC with Diff; Complete Time: 20:39 diego 03/29 19:25 Order name: LFT's; Complete Time: 20:39 diego 03/29 19:25 Order name: Magnesium; Complete Time: 20:39 [facility] 03/29 19:25 Order name: NT PRO-BNP; Complete Time: 20:39 [facility] 03/29 19:25 Order name: PT-INR; Complete Time: 20:03 [facility] 03/29 19:25 Order name: Troponin HS; Complete Time: 20:39 [facility] 03/29 19:25 Order name: Sed Rate; Complete Time: 20:39 [facility] 03/29 19:25 Order name: CRP; Complete Time: 20:39 [facility] 03/29 19:25 Order name: Acetaminophen; Complete Time: 20:39 [facility] 03/29 19:25 Order name: ETOH Level; Complete Time: 20:39 [facility] 03/29 19:25 Order name: Ptt, Activated; Complete Time: 20:03 [facility] 03/29 19:25 Order name: Salicylate; Complete Time: 20:39 [facility] 03/29 19:25 Order name: Urine Drug Screen; Complete Time: 22:34 [facility] 03/29 19:25 Order name: XRAY Chest (1 view); Complete Time: 20:03 [facility] 03/29 19:25 Order name: CT Stroke Brain w/o Contrast; Complete Time: 20:03 [facility] 03/29 19:41 Order name: Glucose, Ancillary Testing; Complete Time: 20:03 [facility] 03/29 20:02 Order name: SARS-COV-2 RT PCR (Document "Date of Onset" if Symptomatic); Complete Time: [facility] 21:37 03/29 20:42 Order name: CT Stone Protocol; Complete Time: 22:34 [facility] 03/29 21:00 Order name: Urine Dipstick-Ancillary; Complete Time: 21:20 [facility] 03/29 21:01 Order name: Urine Dipstick-Ancillary; Complete Time: 21:21 [facility] 03/29 19:25 Order name: EKG; Complete Time: 19:26 [facility] 03/29 19:25 Order name: Cardiac monitoring; Complete Time: 19:47 [facility] 03/29 19:25 Order name: EKG - Nurse/Tech; Complete Time: 19:47 [facility] 03/29 19:25 Order name: IV Saline Lock; Complete Time: 20:13 [facility] 03/29 19:25 Order name: Labs collected and sent; Complete Time: 19:48 [facility] 03/29 19:25 Order name: O2 Per Protocol; Complete Time: 19:48 [facility] 03/29 19:25 Order name: O2 Sat Monitoring; Complete Time: 19:49 [facility] 03/29 19:25 Order name: Suicide Screening ([place]); Complete Time: 19:48 [facility] 03/29 19:25 Order name: Urine Dipstick-Ancillary (obtain specimen); Complete Time: 21:01 [facility] EC:57 Rate is 68 beats/min. Rhythm is regular. QRS [place] is Normal. [place] interval is normal. QRS diego interval is normal. QT interval is normal. No Q waves. T waves are Normal. Clinical impression: Normal ECG and No evidence of ischemia. Interpreted by me. Reviewed by me. Administered Medications: 20:05 Drug: NS 0.9% 1000 ml Route: IV; Rate: 1 bolus; Site: right upper arm; ll3 20:10 Drug: Thiamine 100 mg Route: IV; Rate: bolus; Site: right upper arm; ll3 23:15 Follow up: Response: No adverse reaction; IV Status: Completed infusion lg3 20:12 Drug: foLIC Acid 1 mg Route: IVPB; Site: right upper arm; ll3 20:12 Drug: Banana Bag - (NS 0.9% 1000 ml, foLIC Acid 1 mg, Thiamine 100 mg, Multivitamin 1 ll3 amp) Route: IV; Rate: 150 ml/hr; Site: right upper arm; 23:15 Follow up: Response: No adverse reaction; IV Status: Completed infusion; IV Intake: lg3 1000ml 21:10 Drug: fentaNYL (PF) 50 mcg Route: IVP; Site: Other; lg3 21:11 Follow up: Response: No adverse reaction lg3 21:10 Drug: Zofran (Ondansetron) 4 mg Route: IVP; Site: Other; lg3 21:11 Follow up: Response: No adverse reaction lg3 Point of Care Testing: Blood Glucose: 19:31 Blood Glucose: 133 mg/dL; ll3 Ranges: Critical Glucose Levels:Adult <50 mg/dl or >400 mg/dl <40 mg/dl or >180 mg/dl Disposition Summary: 03/29/22 20:47 Hospitalization Ordered Hospitalization Status: Inpatient Admission diego Provider: Kevin Michaud cha Location: Telemetry/MedSurg (Inpatient) diego Condition: Fair diego Problem: new diego Symptoms: have improved diego Bed/Room Type: Standard diego Room Assignment: 406(03/29/22 23:06) laureano Diagnosis - Altered mental status, unspecified diego - Dehydration diego - Acute kidney failure, unspecified - on chronic diego - Cocaine abuse diego Forms: - Medication Reconciliation Form diego - SBAR form diego NIH Stroke Scale - NIH Stroke Score Date: 03/29/2022 Time: 19:57 Total Score = 0 1a. Level of Consciousness (LOC) - 0(Alert) 1b. Level of Consciousness (LOC) (Month \\T\\ Age) - 0(Both) 1c. LOC Commands (Open \\T\\ Closes Eyes/Information Technology Professor) - 0(Both) 2. Best Gaze (Lateral Gaze Paresis) - 0(Normal) 3. Visual Field Loss - 0(No visual loss) 4. Facial Palsy - 0(Normal) 5a. Left Arm: Motor (10-second hold) - 0(No drift) 5b. Right Arm: Motor (10-second hold) - 0(No drift) 6a. Left Leg: Motor (5-second hold - always test supine) - 0(No drift) 6b. Right Leg: Motor (5-second hold - always test supine) - 0(No drift) 7. Limb Ataxia (finger/nose \\T\\ heel/jolley - test with eyes open) - 0(Absent) 8. Sensory Loss (pinprick arms/legs/face) - 0(Normal) 9. Best Language: Aphasia (description/naming/reading) - 0(No aphasia) 10. Dysarthria (speech clarity - read or repeat words) - 0(Normal) 11. Extinction and Inattention (visual/tactile/auditory/spatial/personal) - 0(No abnormality) Initials: diego Signatures: Dispatcher [employer] EDMS Ainsley Dillard RN RN Gurpreet Dale MD MD cha Gibson, Lacie RN RN lg3 Maritza Catalan RN RN ll3 Crystal Castellanos RN RN Queenie Gilmore PA PA sb3 Corrections: (The following items were deleted from the chart) 20:30 19:31 Head Angio+CT.RAD.BRZ ordered. EDMS EDMS 20:30 19:33 Neck Angio ordered. EDMS EDMS 23:06 20:47 diego tinsley
--- NOTE | 2022-03-29 20:47 | ER ---
Nurse's Notes [facility] Name: Wood Jj Age: 61 yrs Sex: Male : 1960 Arrival Date: 03/29/2022 Time: 19:14 Bed 8 Private MD: Diagnosis: Altered mental status, unspecified;Dehydration;Acute kidney failure, unspecified-on chronic;Cocaine abuse Presentation: 03/29 19:22 Chief complaint: Patient's son or daughter states: "Talking to himself raising his vc1 arms, saying he was talking to his friend and no one was there. Trying to put his medicine in the bag but wasn't even opening the bag he was just picking them up and dropping them. This was at 6:45. He lives with us, my checked on him about 4:45 pm and noticed something was different. 4 am is the last time anyone saw him normal.". Coronavirus screen: Vaccine status: Patient reports being unvaccinated. At this time, the client does not indicate any symptoms associated with coronavirus-19. Ebola Screen: No symptoms or risks identified at this time. Onset of symptoms is unknown. 19:22 Method Of Arrival: Ambulatory vc1 19:22 Acuity: LISA 2 vc1 20:10 Initial Sepsis Screen: Does the patient meet any 2 criteria? No. Patient's initial lg3 sepsis screen is negative. Does the patient have a suspected source of infection? No. Patient's initial sepsis screen is negative. Risk Assessment: Do you want to hurt yourself or someone else? Patient reports no desire to harm self or others. Historical: - Allergies: 19:26 Morphine; vc1 19:26 PENICILLINS; vc1 19:26 Valium; vc1 19:26 Xanax; vc1 - Home Meds: 19:27 Plavix 75 mg Oral tab 1 tab once daily [Active]; vc1 - PMHx: 19:26 Hypercholesterolemia; Hypertension; Myocardial infarction; stroke; vc1 - PSHx: 19:26 Appendectomy; eye sx; Hemorrhoidectomy; Hernia sx; vc1 - Immunization history:: Adult Immunizations up to date, Client reports having NOT received the Covid vaccine. - Social history:: Smoking status: Patient reports the use of cigarette tobacco products, smokes one-half pack cigarettes per day. Screenin:04 Abuse screen: Denies threats or abuse. Denies injuries from another. Nutritional lg3 screening: No deficits noted. Tuberculosis screening: No symptoms or risk factors identified. Fall Risk None identified. Assessment: 20:04 General: Appears in no apparent distress. uncomfortable, unkempt, Behavior is lg3 cooperative, anxious. Pain: Complains of pain in head. Neuro: Sandhu Agitation-Sedation Scale (RASS): +1 Restless Level of Consciousness is awake, alert, obeys commands, Oriented to person, place, Linderman Operator are equal bilaterally Moves all extremities. Speech is normal, Facial symmetry appears normal. Cardiovascular: Denies chest pain, shortness of breath, Capillary refill < 3 seconds Clubbing of nail beds is absent JVD is absent Patient's skin is warm and dry. Respiratory: Airway is patent Respiratory effort is even, unlabored, Respiratory pattern is regular, symmetrical, Denies shortness of breath. GI: Abdomen is round non-distended, umbilical hernia noted Reports anorexia. : No deficits noted. No signs and/or symptoms were reported regarding the genitourinary system. EENT: No deficits noted. No signs and/or symptoms were reported regarding the EENT system. Derm: sores noted to bilateral arms. Musculoskeletal: No deficits noted. Circulation, motion, and sensation intact. Range of motion: intact in all extremities. 20:11 General: contacted poison control for possible benzo toxicity. . lg3 Per [facility], continue with plan of action. Widening of QRS complex on EKG or positive TCA on a urine drug screen are good indicators of a positive benzo toxicity. If widening of QRS complex is present, poison control recommends administering 1-2 AMPS of Sodium Bicarb. No other interventions recommended at this time. . 21:11 Reassessment: Patient appears in no apparent distress at this time. No changes from lg3 previously documented assessment. Patient and/or family updated on plan of care and expected duration. Pain level reassessed. Patient is alert, oriented x 3, equal unlabored respirations, skin warm/dry/pink. General: Behavior is cooperative, anxious, crying, fussy. 23:13 General: attempted to call report. nurse not available . lg3 Vital Signs: 19:51 BP 112 / 66; Pulse 57; Resp 19 S; Pulse Ox 99% on R/A; lg3 19:51 Weight 91.63 kg (R); Height 5 ft. 6 in. (167.64 cm) (R); lg3 23:00 BP 123 / 80; Pulse 47; Resp 18 S; Pulse Ox 98% on R/A; lg3 19:51 Body Mass Index 32.60 (91.63 kg, 167.64 cm) lg3 NIH Stroke Scale Scores: 19:57 NIHSS Score: 0 diego ED Course: 19:14 Patient arrived in ED. ag3 19:20 Gurpreet Baxter MD is Attending Physician. diego 19:26 Triage completed. vc1 19:29 Maria C Hutton, BRIGIDA is Primary Nurse. lg3 19:33 CT Stroke Brain w/o Contrast In Process Unspecified. EDMS 19:47 Patient has correct armband on for positive identification. Placed in gown. Bed in low mh5 position. Call light in reach. Side rails up X2. traffic monitor specialist on. Pulse ox on. NIBP on. 19:49 Acetaminophen Sent. lg3 19:49 ETOH Level Sent. lg3 19:49 Ptt, Activated Sent. lg3 19:49 Salicylate Sent. lg3 19:49 Urine Drug Screen Sent. lg3 19:49 Sed Rate Sent. lg3 19:49 CRP Sent. lg3 19:49 Basic Metabolic Panel Sent. lg3 19:49 LFT's Sent. lg3 19:49 Magnesium Sent. lg3 19:49 NT PRO-BNP Sent. lg3 19:49 PT-INR Sent. lg3 19:49 Troponin HS Sent. lg3 19:54 XRAY Chest (1 view) In Process Unspecified. EDMS 20:04 Inserted saline lock: 24 gauge in left upper arm, using aseptic technique. lg3 20:09 Inserted saline lock: 20 gauge in right ,using aseptic technique. shoulder. lg3 20:10 Arm band placed on left wrist. lg3 20:44 Kevin Michaud is Hospitalizing Provider. diego 21:55 CT Stone Protocol In Process Unspecified. EDMS 23:14 No provider procedures requiring assistance completed. Patient admitted, IV remains in lg3 place. intact, No redness/swelling at site. Administered Medications: 20:05 Drug: NS 0.9% 1000 ml Route: IV; Rate: 1 bolus; Site: right upper arm; ll3 20:10 Drug: Thiamine 100 mg Route: IV; Rate: bolus; Site: right upper arm; ll3 23:15 Follow up: Response: No adverse reaction; IV Status: Completed infusion lg3 20:12 Drug: foLIC Acid 1 mg Route: IVPB; Site: right upper arm; ll3 20:12 Drug: Banana Bag - (NS 0.9% 1000 ml, foLIC Acid 1 mg, Thiamine 100 mg, Multivitamin 1 ll3 amp) Route: IV; Rate: 150 ml/hr; Site: right upper arm; 23:15 Follow up: Response: No adverse reaction; IV Status: Completed infusion; IV Intake: lg3 1000ml 21:10 Drug: fentaNYL (PF) 50 mcg Route: IVP; Site: Other; lg3 21:11 Follow up: Response: No adverse reaction lg3 21:10 Drug: Zofran (Ondansetron) 4 mg Route: IVP; Site: Other; lg3 21:11 Follow up: Response: No adverse reaction lg3 Medication: 23:14 VIS not applicable for this client. lg3 Point of Care Testing: Blood Glucose: 19:31 Blood Glucose: 133 mg/dL; ll3 Ranges: Intake: 23:15 IV: 1000ml; Total: 1000ml. lg3 Outcome: 20:47 Decision to Hospitalize by Provider. diego 23:14 Admitted to Tele accompanied by moira, via wheelchair, room 406, Report called to Lizeth lg3 23:14 Condition: stable 23:14 Instructed on the need for admit, Demonstrated understanding of instructions. 03/30 00:02 Patient left the ED. lp1 NIH Stroke Scale - NIH Stroke Score Date: 03/29/2022 Time: 19:57 Total Score = 0 1a. Level of Consciousness (LOC) - 0(Alert) 1b. Level of Consciousness (LOC) (Month \\T\\ Age) - 0(Both) 1c. LOC Commands (Open \\T\\ Closes Eyes/Field Trainer) - 0(Both) 2. Best Gaze (Lateral Gaze Paresis) - 0(Normal) 3. Visual Field Loss - 0(No visual loss) 4. Facial Palsy - 0(Normal) 5a. Left Arm: Motor (10-second hold) - 0(No drift) 5b. Right Arm: Motor (10-second hold) - 0(No drift) 6a. Left Leg: Motor (5-second hold - always test supine) - 0(No drift) 6b. Right Leg: Motor (5-second hold - always test supine) - 0(No drift) 7. Limb Ataxia (finger/nose \\T\\ heel/jolley - test with eyes open) - 0(Absent) 8. Sensory Loss (pinprick arms/legs/face) - 0(Normal) 9. Best Language: Aphasia (description/naming/reading) - 0(No aphasia) 10. Dysarthria (speech clarity - read or repeat words) - 0(Normal) 11. Extinction and Inattention (visual/tactile/auditory/spatial/personal) - 0(No abnormality) Initials: diego Signatures: Dispatcher [employer] EDGurpreet Sanchez MD MD cha Pena, Laura, RN RN lp1 Bianca [facility] Dana Mejia 3 Maria C Hutton RN RN lg3 Maritza Catalan RN RN ll3 Crystal Castellanos RN RN vc1
[2022-03-29 20:59] LABS: Urine Blood 2+ (Negative); Urine Glucose 2+ (Negative); Urine Protein Negative (Negative); Urine pH 5.5 (5.0-7.0)
[2022-03-29 21:01] LABS: Urine Blood Negative (Negative); Urine Glucose Negative (Negative); Urine Protein Negative (Negative); Urine pH 5.5 (5.0-7.0)
[2022-03-29] MEDS ORDERED: FENTANYL CITR 100 MCG/2 ML ONE (21:10)
[2022-03-29] MEDS ORDERED: ONDANSETRON 4 MG/2 ML VIAL ONE (21:11)
--- NOTE | 2022-03-29 22:07 | RAD REPORT ---
EXAM DESCRIPTION: CT - Stone Protocol - 03/29/2022 9:54 pm CLINICAL HISTORY: Abdominal pain. Flank pain COMPARISON: 2016 TECHNIQUE: Computed axial tomography of the abdomen pelvis was obtained without oral or IV contrast. Lack of IV and oral contrast limits evaluation of solid organs, appendix, bowel, and vessels. Wilde l reformatted images were obtained and reviewed. All CT scans are performed using dose optimization technique as appropriate and may include automated exposure control or mA/KV adjustment according to patient size. FINDINGS: A renal calculus is not seen. An ureteral calculus is not noted. A bladder calculus is not present. Renal cortical thinning may be secondary to prior inflammation The liver, spleen, pancreas and adrenals appear grossly normal There is no evidence of diverticulitis. The appendix appears normal Moderate umbilical hernia contains fat. Small left inguinal hernia Mild anterior subluxation L4 on L5. Mild to moderate enlargement prostate gland IMPRESSION: Negative for a genitourinary calculus
[2022-03-29 22:09] LABS: Barbiturates NEGATIVE (NEGATIVE); Benzodiazepines NEGATIVE (NEGATIVE); Cocaine POSITIVE (NEGATIVE); METHAMPHETAM NEGATIVE (NEGATIVE); Methadone NEGATIVE (NEGATIVE); Opiates NEGATIVE (NEGATIVE); Phencyclidine NEGATIVE (NEGATIVE); THC Cannibis NEGATIVE (NEGATIVE)
--- NOTE | 2022-03-29 23:05 | P.HP ---
Certification for Inpatient Patient admitted to: Inpatient With expected LOS: <2 Midnights Patient will require the following post-hospital care: None Practitioner: I am a practitioner with admitting privileges, knowledge of patient current condition, hospital course, and medical plan of care. Services: Services provided to patient in accordance with Admission requirements found in Title 42 Section 412.3 of the Code of Federal Regulations Patient History Date of Service: 03/30/22 Reason for admission: CAMDEN/AMS History of Present Illness: Patient is a 61 y/o M with PMH of HTN, HLD, CVA, and NM who presented to the ED via EMS with AMS. Per patient's sister, he was acting very oddly today- talking to himself, disheveled, impaired motor skills. The initial concern was for stroke, which was ruled out. ED staff noticed that inside his bottle of tramadol was flexeril so there was concern that he overdosed. Patient noted to be crying then laughing. Patient's sister thought he was having SI but he denied several times during my assessment. Labs significant for Na 133, BUN 28, Cr 2, ESR 39, CRP 51.9, CT head/CXR neg, tox screen positive for cocaine. CPK pending. CAMDEN likely secondary to cocaine abuse. Patient reports using cocaine daily but did not use today. He was given a banana bag and folic acid in the ED. ED provider wishes to admit patient for observation. Allergies Benzodiazepines Allergy (Severe, Verified 02/09/22 00:16) Anaphylaxis diazepam [From Valium] Allergy (Severe, Verified 02/09/22 00:16) Anaphylaxis ketorolac tromethamine [From Toradol] Allergy (Severe, Verified 02/09/22 00:16) Anaphylaxis Penicillins Allergy (Severe, Verified 02/09/22 00:16) Anaphylaxis venom-honey bee [bee venom (honey bee)] Allergy (Severe, Verified 02/09/22 00:16) Anaphylaxis venom-wasp [Wasp Venom] Allergy (Severe, Verified 02/09/22 00:16) Anaphylaxis alprazolam [From Xanax] Allergy (Verified 02/09/22 00:16) Hives amphetamine aspartate [From Adderall] Allergy (Verified 02/09/22 00:16) Hives amphetamine sulfate [From Adderall] Allergy (Verified 02/09/22 00:16) Hives dextroamphetamine saccharate [From Adderall] Allergy (Verified 02/09/22 00:16) Hives dextroamphetamine sulfate [From Adderall] Allergy (Verified 02/09/22 00:16) Hives lorazepam [From Ativan] Allergy (Verified 02/09/22 00:16) Hives/Rash trazodone Allergy (Verified 02/09/22 00:16) Hives Home medications list reviewed: Yes Home Medications: Aspirin [Aspirin EC 81 MG] 81 mg PO DAILY 30 Days #30 tablet. 02/09/22 Atorvastatin Calcium [Lipitor*] 40 mg PO DAILY 02/09/22 Clopidogrel Bisulfate [Plavix*] 75 mg PO DAILY 30 Days #30 tablet 02/09/22 Folic Acid 1 mg PO DAILY 30 Days #30 tablet 02/09/22 Gabapentin 600 mg PO BID 02/09/22 Lisinopril [Zestril] 1 tab PO DAILY 02/09/22 Metoprolol Succinate [Toprol Xl*] 50 mg PO BID 02/09/22 - Past Medical/Surgical History Diabetic: No -: Hypertension -: Hyperlipidemia -: CVA -: NM -: Cocaine Abuse -: hernia repair -: appendectomy -: hemorrhoidectomy Psychosocial/ Personal History: Patient lives at home with his sister. - Family History Mother -: Heart disease, Hypertension, Stroke, Cancer Father -: Heart disease, Hypertension, GI disease, Stroke, Kidney disease Sister -: Hypertension, Lung disease, Diabetes, Kidney disease Brother -: Hypertension - Social History Smoking Status: Current every day smoker Alcohol use: No CD- Drugs: No Caffeine use: Yes Place of Residence: Home Review of Systems General: Other (headache) Physical Examination - Physical Exam General: Alert, In no apparent distress, Oriented x3, Disheveled HEENT: Atraumatic, PERRLA, EOMI, Sclerae nonicteric Neck: Supple, 2+ carotid pulse no bruit, No LAD, Without JVD or thyroid abnormality Respiratory: Clear to auscultation bilaterally, Normal air movement Cardiovascular: Regular rate/rhythm, Normal S1 S2 Gastrointestinal: Normal bowel sounds, No tenderness Musculoskeletal: No tenderness Integumentary: No rashes Neurological: Normal speech, Normal strength at 5/5 x4 extr, Normal tone, Normal affect - Studies Laboratory Data (last 24 hrs) 03/29/22 19:33: PT 11.0, INR 1.00, APTT 33.4 03/29/22 19:33: WBC 8.9, Hgb 12.9 L, Hct 38.0 L, Plt Count 288 03/29/22 19:33: Sodium 133 L, Potassium 4.3, BUN 28 H, Creatinine 2.03 H, Glucose 124 H, Magnesium 2.3, Total Bilirubin 0.5, AST 23, ALT 23, Alkaline Phosphatase 124 H Assessment and Plan - Problems (Diagnosis) (1) CAMDEN (acute kidney injury) Current Visit: Yes Status: Acute (2) Dehydration Current Visit: Yes Status: Acute (3) Cocaine abuse Current Visit: Yes Status: Chronic (4) Hypertension Current Visit: Yes Status: Chronic Qualifiers: Hypertension type: primary hypertension Qualified Code(s): I10 - Essential (primary) hypertension (5) Hyperlipidemia Current Visit: Yes Status: Chronic Qualifiers: Hyperlipidemia type: unspecified Qualified Code(s): E78.5 - Hyperlipidemia, unspecified - Plan -Continue IVF for CAMDEN -Blood pressure has been low but likely chronic. Support with IVF. Monitor. -Monitor renal function and hold nephrotoxic drugs -Troponin negative. CPK, CKMB, and lactate pending. -Monitor and reconcile electrolytes per protocol -Reconcile and continue home medications -Heparin for VTE ppx -Full code Discharge Plan: Home Plan to discharge in: 48 Hours - Advance Directives Does patient have a Living Will: No Does patient have a Durable POA for Healthcare: No - Code Status/Comfort Care Code Status Assessed: Yes (Full) Critical Care: No Time Spent Managing Pts Care (In Minutes): 50
[2022-03-29] MEDS ORDERED: NA CHLORIDE 0.9% 1,000 ML IV SCH (23:35)
[2022-03-29] MEDS ORDERED: ACETAMINOPHEN 500 MG TAB PO PRN (23:35)
[2022-03-29] MEDS ORDERED: ONDANSETRON 4 MG/2 ML VIAL IV PRN (23:35)
[2022-03-30 00:40] VITALS: BMI 32.5
[2022-03-30 00:46] VITALS: O2SAT 98
[2022-03-30] MEDS: NA CHLORIDE 0.9% 1,000 ML IV SCH ×2 (01:31→07:54)
[2022-03-30] MEDS: HEPARIN 5000 UNIT/ML 1 ML VIAL SQ SCH ×2 (01:31→07:54)
[2022-03-30 01:32] LABS: CKMB Creatine Kinase MB 4.9 ng/mL (1.0-3.6); Thyroid Stimulating Hormone 0.47 uIU/mL (0.360-3.740)
[2022-03-30 04:56] LABS: Absolute Lymphocytes (CBC) 1.8 K/uL (0.7-4.9); Hematocrit 37.4 % (39.6-49.0); Lymphocytes % 26.1 % (15.3-44.8); MCV 92.6 fL (80-100); MPV 7.5 fL (7.6-11.3); RBC Red Blood Cell Count 4.04 M/uL (4.33-5.43)
[2022-03-30 05:05] LABS: Magnesium 2.4 mg/dL (1.8-2.4); Phosphorus 3.2 mg/dL (2.5-4.9); Potassium 4.5 mmol/L (3.5-5.1)
--- NOTE | 2022-03-30 09:40 | P.PN ---
Subjective Date of Service: 03/30/22 Chief Complaint: CAMDEN/AMS Subjective: Improving (Better no new complaints little disoriented blood pressure is low apparently its been high in the past) Review of Systems 10-point ROS is otherwise unremarkable Physical Examination - Vital Signs Temperature: 97.0 F Blood Pressure: 86/51 Pulse: 42 Respirations: 18 Pulse Ox (%): 100 - Physical Exam General: Alert, In no apparent distress, Oriented x3 Cardiovascular: No edema, Normal pulses - Studies Laboratory Data (last 24 hrs) 03/29/22 19:33: PT 11.0, INR 1.00, APTT 33.4 03/29/22 19:33: WBC 8.9, Hgb 12.9 L, Hct 38.0 L, Plt Count 288 03/29/22 19:33: Sodium 133 L, Potassium 4.3, BUN 28 H, Creatinine 2.03 H, Glucose 124 H, Magnesium 2.3, Total Bilirubin 0.5, AST 23, ALT 23, Alkaline Phosphatase 124 H Assessment And Plan - Current Problems (Diagnosis) (1) CAMDEN (acute kidney injury) Current Visit: Yes Status: Acute Plan: Patient is doing better he is more alert responsive blood pressure is low continue with IV fluids with hold blood pressure medications probably need to avoid DOLLY inhibitor's labs reviewed possible discharge tomorrow ambulate patient
[2022-03-30 14:02] VITALS: TEMP 97.1
--- NOTE | 2022-03-30 14:54 | P.DS ---
Admission Date: 03/29/22 Discharge Date: 03/30/22 Discharge Condition: FAIR Reason for Admission: CAMDEN/AMS - Problems (1) CAMDEN (acute kidney injury) Current Visit: Yes Status: Acute Brief History of Present Illness: Age 61 aw AMS Hospital Course: BP low and worseing renal fucntion. PT Tx with IV fluids. CT abdomen. Poss of OD of meds. Ct head neg. LAbs reviewd. Tx with IVF fluids. Alert and oriented X3 and ambulating at the time of Discharge. Instructed to hold BP meds and avoid take pain meds as precribed Vital Signs/Physical Exam: Temp Pulse Resp BP Pulse Ox 97.1 F 42 L 18 86/55 L 99 03/30/22 12:00 03/30/22 12:00 03/30/22 12:00 03/30/22 12:00 03/30/22 12:00 Laboratory Data at Discharge: WBC 6.8 K/uL (4.3-10.9) D 03/30/22 04:18 Hgb 12.6 g/dL (13.6-17.9) L 03/30/22 04:18 Hct 37.4 % (39.6-49.0) L 03/30/22 04:18 Plt Count 262 K/uL (152-406) 03/30/22 04:18 PT 11.0 SECONDS (9.5-12.5) 03/29/22 19:33 INR 1.00 03/29/22 19:33 APTT 33.4 SECONDS (24.3-36.9) 03/29/22 19:33 Sodium 139 mmol/L (136-145) 03/30/22 04:18 Potassium 4.5 mmol/L (3.5-5.1) 03/30/22 04:18 BUN 22 mg/dL (7-18) H 03/30/22 04:18 Creatinine 1.48 mg/dL (0.55-1.3) H 03/30/22 04:18 Glucose 85 mg/dL (74-106) 03/30/22 04:18 Phosphorus 3.2 mg/dL (2.5-4.9) 03/30/22 04:18 Magnesium 2.4 mg/dL (1.8-2.4) 03/30/22 04:18 Total Bilirubin 0.5 mg/dL (0.2-1.0) 03/29/22 19:33 AST 23 U/L (15-37) 03/29/22 19:33 ALT 23 U/L (12-78) 03/29/22 19:33 Alkaline Phosphatase 124 U/L (45-117) H 03/29/22 19:33 Home Medications: Atorvastatin Calcium [Lipitor] 40 mg PO DAILY 03/30/22 Calcium Carbonate/Vitamin D3 [Calcium 600 mg-D3 10 Mcg Sfgl] 1 cap PO DAILY 03/30/22 Clopidogrel Bisulfate [Clopidogrel] 75 mg PO DAILY 03/30/22 Folic Acid 1 mg PO DAILY 03/30/22 Gabapentin 300 mg PO BID 03/30/22 Multivitamin 1 tab PO DAILY 03/30/22 Tramadol HCl [Ultram] 50 mg PO Q6H PRN 03/30/22 Zolpidem Tartrate 5 mg PO BEDTIME PRN 03/30/22 Physician Discharge Instructions: Hold all BP pills and f/u with Josias Diet: Regular Activity: Ad maggie Followup: Mahad Ross DO [Primary Care Provider] -
[2022-03-30 15:03] VITALS: BP 116/62
--- NOTE | 2022-04-02 08:05 | EKG ---
Test Date: 2022-03-29 Test Time: 19:37:01 Sales Agent Protective Service: RUBENS MEASUREMENT RESULTS: Intervals: Rate: 68 AL: 146 QRSD: 70 QT: 384 QTc: 408 [place]: P: 26 AL: 146 QRS: 47 T: 67 INTERPRETIVE STATEMENTS: Normal sinus rhythm Possible Left atrial enlargement Cannot rule out Anterior infarct, age undetermined Abnormal ECG Compared to ECG 02/08/2022 13:07:55 Myocardial infarct finding now present Sinus bradycardia no longer present Electronically Signed On 04-02-22 07:56:27 CDT by Stefan Nova
--- OUTSIDE RECORDS SUMMARY | 2022-04-17 05:54 | XMS REPORT | Continuity of Care Document ---
:1960 Author Organization [facility] t Address [address] [place] [address] Care Team Providers Name Role Phone Lexx Ross Primary Care Physician Lexx Ross Attending Clinician Unavailable Deshazo_T Attending Clinician Unavailable Doctor Unassigned, Name Attending Clinician Unavailable ROXANE Attending Clinician Unavailable MINDI ALBARADO Attending Clinician Unavailable MINDI ALBARADO Attending Clinician Unavailable Ayo ALLRED, A Attending Clinician Unavailable GELY Attending Clinician Unavailable OWENS_T Attending Clinician Unavailable PARAG_S Attending Clinician Unavailable Mayuri Campbell Attending Clinician Deshazo_T Admitting Clinician Unavailable OVILLE Admitting Clinician Unavailable OWENS_T Admitting Clinician Unavailable CURRY_S Admitting Clinician Unavailable Payers Payer Name Policy Type Policy Number Effective Date Expiration Date [facility] [id number] 2021 (MEDICARE 00:00:00 REPLACEMENT HMO) Problems Condition Condition Condition Status Onset Resolution Last Treating Co mments Source Name Details Category Date Date Treatment Clinician Date CAMDEN (acute CAMDEN (acute Disease Active 2020-09 U nivers kidney kidney 2-30 ity of injury) injury) 00:00: [address] Branch Esophageal Esophageal Disease Active 2017-0 U nivers spasm spasm 4-30 ity of 00:00: [place] 00 Medical Branch A-fib A-fib Disease Active Univers 4-24 ity of 00:00: [place] 00 Medical Branch Atrial Atrial Disease Active Univers fibrillati fibrillati 4-23 it y of on with on with 00:00: [place] RVR RVR Medical Branch Shortness Shortness Disease Active Uni vers of breath of breath - ity of 00:00: [place] [facility] NSTEMI NSTEMI Disease Active Univers (non-ST (non-ST - ity of elevated elevated 00:00: [place] myocardial myocardial 00 Me dical infarction infarction Br anch ) ) Tobacco Tobacco Disease Active Univers abuse abuse 01-19 ity of 00:00: [place] [facility] Family Family Disease Active Univers history of history of 01-19 [place] y of early CAD early CAD 00:[place] Inguinal Inguinal Disease Active 2016-09 Unive rs hernia hernia 2- ity of 00:00: [place] [facility] Obesity [...] of taking it. PENICILL Drug Active Anaphylaxis 2016-0 Uni vers INS Class 8-15 ity of 00:00: [place] 00 Medical Branch Penicill Propensi Active Anaphylaxis 2015-0 U nivers ins ty to 8-15 ity of adverse 00:00: [place] reaction 00 Medical s Branch BEE DRUG Active Anaphylaxis 2013- Unive rs STING / INGREDI 26 ity of VENOM 00:00: [place] 00 Medical Branch Bee Propensi Active Anaphylaxis Uni vers Sting / ty to 01-22 ity of [place] adverse 00:00: [place] reaction 00 Medical s to Branch drug VENOM-WA DRUG Active Anaphylaxis 2013- Uni vers SP INGREDI 01-22 ity of 00:00: [place] 00 Medical Branch Ven[place] Propensi Active Anaphylaxis 2013- U nivers sp ty to 01-22 ity of adverse 00:00: [place] reaction 00 Medical s Branch Social History Social Habit Start Date Stop Date Quantity Comments Source Exposure to Not sure [facility] SARS-CoV-2 (event) [facility] History of tobacco Cigarette Smoker University of use [facility] Alcohol intake 2021-09-27 2021-09-27 Current University 00:00:00 00:00:00 non-drinker of [facility] alcohol Branch (finding) Education 2021-09-27 2021-09-27 8 University of 00:00:00 00:00:00 [facility] Cigarette 2014-01-22 2014-01-22 University of pack-years 00:00:00 00:00:00 [facility] Tobacco use and 2014-01-22 2014-01-22 Never used Universit y of exposure 00:00:00 00:00:00 [facility] Cigarettes smoked 2014-01-22 2014-01-22 Univers ity of current (pack per 00:00:00 00:00:00 ) - Reported Branch Sex Ass[birth year] At [birth year] Universit y of 00:00:00 00:00:00 [facility] Smoking Status Start Date Stop Date Source Current every day smoker 2014-01-22 00:00:00 Uni versity of [facility] Medications Ordered Filled Start Stop Current Ordering Indication Dosage Frequency Signature Comments Components Source Medication Medication Date Date Medication? Clinician (SIG) Name Name HYDROcodone 2021- No 4647 1{tbl} Take 1 U nivers -acetaminop 1-02 01-10 tablet by it y of hen (NORCO) 00:00[place] 05:59 [place] 10-325 mg 00 :00 every 8 Medical tablet (eight) Branch hours as needed for Pain (scale 7-10) for up to 7 days. Indication s: acute pain isosorbide 2017-0 Yes 30mg Take 1 Unive [...] [place] tablet 00 daily. Medical Branch atorvastati Yes 80mg Take 1 Univ ers n 80 mg 5-01 tablet by ity of tablet 00:00: mouth [place] 00 daily. Medical Branch pantoprazol Yes 40mg Take 1 Univ ers e 40 mg EC 5-01 tablet by ity of tablet 00:00: mouth [place] 00 daily. Medical Branch metoprolol 2017-0 Yes [...] as Medical needed for Branch Insomnia. metoprolol 2017-0 Yes 50mg Take 1 Unive [...] [place] 00 daily. Medical Branch zolpidem 5 2017- Yes 5mg Take 1 Unive rs mg tablet 4-30 tablet by ity o f 00:00: mouth at [place] 00 bedtime as Medical needed for Branch Insomnia. sulindac 2015- Yes 200mg Take 1 Univer s (CLINORIL) 8-15 tablet by ity of 200 mg 00:00: mouth 2 [place] tablet 00 (two) Medical times Branch daily. sulindac 2015- Yes 200mg Take 1 Univer s (CLINORIL) 8-15 tablet by ity of 200 mg 00:00: mouth 2 [place] tablet 00 (two) Medical times Branch daily. Immunizations Ordered Filled Immunization Date Status Comments [facility] e Immunization Name Name Pneumococcal 2018-01-26 Completed University o f Polysaccharide, 00:00:00 [place] ical PPSV23 (PNEUMOVAX) Branch Pneumococcal 2018-01-26 Completed University o f Polysaccharide, 00:00:00 [place] Med ical PPSV23 (PNEUMOVAX) Branch Procedures Procedure Date / Time Performing Clinician Source Performed AUTHORIZATION FOR 2021-11-12 06:01:00 Doctor Unassigned, No Univ ersity of [place] RELEASE OF PHI Name Medical Branch Encounters Start End Encounter Admission Attending Care Care Encounter Source Date/Time Date/Time Type Type Clinicians Facility Department ID 2021-10-24 [facility] Ross, [facility] [id number] Common 13:24:[id number] [facility] 2021-10-24 Outpatient Ross, [facility] [id number] Common 13:06:[address] [facility] 2021-10-24 Outpatient Ross, [facility] [id number] Common 12:40:[address] [facility] 2021-10-24 Outpatient Ross, [facility] [id number] Common 12:30:[address] [facility] 2021-10-24 Outpatient Ross, STLMLC STLML[facility] [id number] Common 12:29:[id number] [facility] 2021-10-24 Outpatient Ross, STLMLC STLMLC [id number] Common 11:52:[address] [facility] 2021-10-24 Outpatient Ross, STLMLC STLMLC [id number] Common 11:44:[id number] [facility] 2021-10-24 Outpatient Ross, STLMLC STLMLC [id number] Common 11:37:[address] [facility] 2022-04-12 2022-04-12 Outpatient Deshazo_T [facility] [id number] [facility] 03:30:00 03:30:00 0715 [facility] 2022-04-10 2022-04-10 [id number] 04:58:00 04:58:00 0713 [facility] 2022-04-04 2022-04-04 ambulatory STLMLC STLMLC [id number] Common 00:00:00 00:00:00 [facility] 2022-04-04 2022-04-04 ambulatory STLMLC STLMLC [id number] Common 00:00:00 00:00:00 [facility] 2022-03-26 2022-03-26 ambulatory STLMLC STLMLC [id number] Common 00:00:00 00:00:00 [facility] 2022-02-14 2022-02-14 ambulatory STLMLC STLMLC [id number] Common 00:00:00 00:00:00 [facility] 2022-01-22 2022-01-22 ambulatory STLMLC STLMLC [id number] Common 00:00:00 00:00:00 [facility] 2022-01-17 2022-01-17 ambulatory STLMLC STLMLC [id number] Common 00:00:00 00:00:00 [facility] 2021-11-12 2021-11-12 Orders Doctor NIR [id number] Univers 00:00:00 00:00:00 Only Unassigned, SHAI [id number] [facility] [id number] Lauri [phone] [address] 2021-11-01 2021-11-01 Outpatient Lion BETTS [facility] [id number] Univers 13:30:00 13:30:00 HERNAN [id number] [facility] 2021-10-16 2021-10-16 ambulatory STLMLC STLMLC [id number] Common 00:00:00 00:00:00 [facility] 2021-10-16 2021-10-16 ambulatory STLMLC STLMLC [id number] Common 00:00:00 00:00:00 [facility] 2021-10-09 2021-10-09 Outpatient NEELA FANG [facility] [id number] Univers 14:20:00 14:20:00 NEELA ALBARADO [facility] 2021-10-09 2021-10-09 Outpatient NEELA FANG [facility] [id number] Univers 13:00:00 13:00:00 NEELA ALBARADO [id number] [facility] 2021-10-09 2021-10-09 ambulatory STLMLC STLMLC [id number] Common 00:00:00 00:00:00 [facility] 2021-10-08 2021-10-08 ambulatory STLMLC STLMLC [id number] Common 00:00:00 00:00:00 [facility] 2021-10-05 2021-10-05 ambulatory STLMLC STLMLC [id number] Common 00:00:00 00:00:00 [facility] 2021-10-02 2021-10-02 Transition SIOBHAN Rollins [id number] Univers 00:00:00 00:00:00 of Care Simón PEREA [id number] ity [facility] [id number] Tess dent [phone] [address] 2021-10-01 2021-10-01 ambulatory STLMLC STLMLC [id number] Common 00:00:00 00:00:00 [facility] 2021-09-27 2021-09-30 Outpatient Kt HONG [place] [id number] Univers 17:38:00 15:22:00 VIKASH tony [facility] 2021-09-19 2021-09-19 Outpatient OWENS_T [facility] [id number] [facility] 01:00:00 01:00:00 1222 [facility] l [facility] 2021-08-10 2021-08-10 Outpatient OWENS_[place] [id number] [facility] 10:31:00 10:31:00 1112 [facility] 2021-08-07 2021-08-07 Outpatient CURRY_S [facility] [id number] [facility] 02:14:00 02:14:00 1109 [facility] 2021-07-17 2021-07-17 Outpatient STLMLC STLMLC [id number] Common 00:00:00 00:00:00 [facility] 2021-07-10 2021-07-10 Outpatient STLMLC STLMLC [id number] Common 00:00:00 00:00:00 [facility] 2021-07-04 2021-07-04 Outpatient STLMLC STLMLC [id number] Common 00:00:00 00:00:00 [facility] 2021-06-26 2021-06-26 Outpatient STLMLC STLMLC [id number] Common 00:00:00 00:00:00 [facility] 2021-05-29 2021-05-29 Outpatient STLMLC STLMLC [id number] Common 00:00:00 00:00:00 [facility] 2021-05-22 2021-05-22 Outpatient CURRY_S DMG DMG [id number] [facility] 05:13:00 05:13:00 0824 Med[facility] l [facility] 2021-05-22 2021-05-22 Outpatient STLMLC STLMLC [id number] Common 00:00:00 00:00:00 [facility] 2021-05-04 2021-05-04 Outpatient STLMLC STLMLC [id number] Common 00:00:00 00:00:00 [facility] 2021-04-30 2021-04-30 Outpatient STLMLC STLMLC [id number] Common 00:00:00 00:00:00 [facility] 2021-04-30 2021-04-30 Outpatient STLMLC STLMLC [id number] Common 00:00:00 00:00:00 [facility] 2021-04-06 2021-04-06 Outpatient STLMLC STLMLC [id number] Common 00:00:00 00:00:00 [facility] 2021-01-29 2021-01-29 Outpatient DMG [facility] [id number] [facility] 06:02:00 06:02:00 0503 Medica l Group 2021-01-18 2021-01-18 [facility] [id number] [facility] 12:00:00 12:00:00 0422 Medica l Group 2020-08-14 2020-08-14 [facility] [id number] 14:12:00 15:54:00 Love Butcher [id number] [place] [id number] [place] [phone] 084 Results This patient has no known results.
== END 2022-03-30 15:34 | disposition home or self-care (01) | DRG 684 ==
LOC: ER 19:09 → ERHOLD 22:59 → 4TH 23:16
PROVIDERS: ADMIT Internal Medicine; ATTEND Internal Medicine
DX: N17.9 Acute kidney failure, unspecified (principal); E86.0 Dehydration; F14.10 Cocaine abuse, uncomplicated; I10 Essential (primary) hypertension; E78.5 Hyperlipidemia, unspecified; Z86.73 Personal history of transient ischemic attack (TIA), and cerebral infarction without residual deficits; Z79.82 Long term (current) use of aspirin; F17.210 Nicotine dependence, cigarettes, uncomplicated; Z20.822 Contact with and (suspected) exposure to COVID-19
CPT/HCPCS: 36415; 70450; 71045; 74176; 76377; 80048; 80076; 80307; 80320; 80329; 81003; 82550; 82553; 82947; 83605; 83735; 83880; 84100; 84443; 84484; 85025; 85610; 85652; 85730; 86140; 93005; 99285; J1644; J2405; J3010; J3411; J7030; U0003

== ENCOUNTER 2022-04-15 14:10 | Emergency (ER) | payer MEDICARE ==
--- NOTE | 2022-04-15 16:02 | RAD REPORT ---
EXAM DESCRIPTION: CT - Head Brain Wo Cont - 04/15/2022 3:52 pm CLINICAL HISTORY: Headache COMPARISON: March 29, 2022 TECHNIQUE: Computed axial tomography of the head was obtained. IV contrast was not requested. All CT scans are performed using dose optimization technique as appropriate and may include automated exposure control or mA/KV adjustment according to patient size. FINDINGS: An intracranial bleed is not seen . The ventricles are normal in caliber. No extra-axial fluid collection is noted. 2 centimeter low-density area right cerebrum probably old infarct. Small old left thalamic lacunar in farct Fluid within the sinuses/ mastoids is not seen. IMPRESSION: No acute intracranial abnormality is seen. If patient's symptoms persist MRI of the bra in would be recommended.
[2022-04-15 16:51] LABS: Absolute Lymphocytes (CBC) 1.4 K/uL (0.7-4.9); Hematocrit 36.2 % (39.6-49.0); Lymphocytes % 18.3 % (15.3-44.8); MCV 91.6 fL (80-100); MPV 6.6 fL (7.6-11.3); RBC Red Blood Cell Count 3.95 M/uL (4.33-5.43)
[2022-04-15 16:55] LABS: Protime INR 0.96
--- NOTE | 2022-04-15 16:57 | RAD REPORT ---
EXAM DESCRIPTION: [place] Single View04/15/2022 4:49 pm CLINICAL HISTORY: Hypertension/headache COMPARISON: March 29, 2022 FINDINGS: The lungs appear clear of acute infiltrate. The heart is normal size IMPRESSION: No acute abnormalities displayed
[2022-04-15 17:01] LABS: Potassium 4.1 mmol/L (3.5-5.1)
[2022-04-15] MEDS ORDERED: METOCLOPRAMIDE 10 MG/2mL INJ ONE (18:01)
[2022-04-15] MEDS ORDERED: NA CHLORIDE 0.9% 1,000 ML ONE (18:01)
[2022-04-15] MEDS ORDERED: DIPHENHYDRAMINE 50 MG/ML VIAL ONE (18:02)
--- NOTE | 2022-04-15 18:54 | ER ---
Nurse's Notes [facility] Name: Wood Jj Age: 61 yrs Sex: Male : 1960 Arrival Date: 04/15/2022 Time: 14:11 Bed 16 Private MD: Diagnosis: Headache Presentation: 04/15 15:07 Chief complaint: Patient states: headache that woke up pt today at 0200; states vg1 dizziness and nausea and blurred vision. 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 Coronavirus screen: Client denies travel out of the [place] in the last 14 days. Ebola Screen: Patient denies exposure to infectious person. Patient denies travel to an Ebola-affected area in the 21 days before illness onset. Initial Sepsis Screen: Does the patient meet any 2 criteria? No. Patient's initial sepsis screen is negative. Does the patient have a suspected source of infection? No. Patient's initial sepsis screen is negative. Risk Assessment: Do you want to hurt yourself or someone else? Patient reports no desire to harm self or others. Onset of symptoms was April 15, 2022 at 02:00. 15:07 Method Of Arrival: Ambulatory vg1 15:07 Acuity: LISA 3 vg1 Triage Assessment: 15:11 Headache History: The patient has had previous headaches and this one is similar to vg1 previous episodes. General: Appears uncomfortable, Behavior is cooperative. Pain: Complains of pain in head Pain currently is 8 out of 10 on a pain scale. Pain began this morning around 0200 Also complains of no other associated symptoms. Neuro: Level of Consciousness is awake, alert, obeys commands, Oriented to person, place, time, situation. Neuro: Musculoskeletal: Circulation, motion, and sensation intact. Historical: - Allergies: 15:10 Morphine; vg1 15:10 PENICILLINS; vg1 15:10 Valium; vg1 15:10 Xanax; vg1 - Home Meds: 16:50 Plavix 75 mg Oral tab 1 tab once daily [Active]; whaley - PMHx: 15:10 Hypercholesterolemia; Hypertension; Myocardial infarction; stroke; vg1 - PSHx: 15:10 Appendectomy; eye sx; Hemorrhoidectomy; Hernia sx; vg1 - Immunization history:: Client reports having NOT received the Covid vaccine. - Social history:: Smoking status: Patient reports the use of cigarette tobacco products, smokes one-half pack cigarettes per day. Screenin:48 Abuse screen: Denies threats or abuse. Denies injuries from another. Nutritional whaley screening: No deficits noted. Tuberculosis screening: No symptoms or risk factors identified. Fall Risk None identified. Assessment: 16:48 Pain: Complains of pain in headaches. Neuro: Level of Consciousness is awake, alert, whaley obeys commands, Oriented to person, place, time, Reports headache. EENT: Reports blurred vision. 18:04 Reassessment: Patient appears in no apparent distress at this time. Patient and/or hb family updated on plan of care and expected duration. Pain level reassessed. Patient is alert, oriented x 3, equal unlabored respirations, skin warm/dry/pink. Vital Signs: 15:07 BP 111 / 69; Pulse 56; Resp 20; Temp 99.0(TE); Pulse Ox 98% on R/A; Weight 92.99 kg; vg1 Height 5 ft. 6 in. (167.64 cm); Pain 8/10; 15:07 Body Mass Index 33.09 (92.99 kg, 167.64 cm) vg1 [place] Coma Score: 15:14 Eye Response: spontaneous(4). Verbal Response: oriented(5). Motor Response: obeys vg1 commands(6). Total: 15. 15:14 Eye Response: spontaneous(4). Verbal Response: oriented(5). Motor Response: obeys kb commands(6). Total: 15. ED Course: 14:11 Patient arrived in ED. as 15:07 Britt Cardona FNP-C is PHCP. kb 15:07 Devan Fuller DO is Attending Physician. kb 15:10 Triage completed. vg1 15:54 CT Head Brain wo Cont In Process Unspecified. EDMS 16:03 Britt Cardona FNP-C is PHCP. kb 16:03 Devan Fuller DO is Attending Physician. kb 16:27 Hailee Quinonez, RN is Primary Nurse. hb 16:40 Hailee Alonso, RN is Primary Nurse. whaley 16:48 Patient has correct armband on for positive identification. Bed in low position. whaley 16:48 No provider procedures requiring assistance completed. whaley 16:50 Stroke CXR 1 View In Process Unspecified. EDMS 17:48 Inserted saline lock: 18 gauge in left antecubital area, using aseptic technique. ss ,using aseptic technique. Inserted VIA ultrasound guide. 2" catheter. 19:21 IV discontinued, intact, bleeding controlled, No redness/swelling at site. Pressure sm5 dressing applied. Administered Medications: 18:16 Drug: NS 0.9% 1000 ml Route: IV; Rate: 1000 ml; Site: left antecubital; whaley 18:16 Drug: Reglan (metoCLOPramide) 10 mg Route: IVP; Site: left antecubital; whaley 18:16 Follow up: Response: No adverse reaction whaley 18:16 Drug: Benadryl (diphenhydrAMINE) 25 mg Route: IVP; Site: left antecubital; whaley 18:17 Follow up: Response: No adverse reaction whaley Medication: 16:48 VIS not applicable for this client. whaley Outcome: 18:54 Discharge ordered by MD. kb 19:20 Discharged to home ambulatory. [facility] 19:20 Condition: stable 19:20 Discharge instructions given to patient, Instructed on discharge instructions, follow up and referral plans. Demonstrated understanding of instructions, follow-up care. 19:22 Patient left the ED. 5 Signatures: Dispatcher [employer] EDBritt Palmer, DEPLOYMENT ENGINEER-C DEPLOYMENT ENGINEER-Imelda Ocasio Shelby, BRIGIDA ALLRED ss Hailee Quinonez, Teresita Mack RN, RN RN Emely Guerra RN RN [address]ShannenrHailee RN RN
--- NOTE | 2022-04-15 18:54 | EDPHYS ---
Physician Documentation [facility] Name: Wood Jj Age: 61 yrs Sex: Male : 1960 Arrival Date: 04/15/2022 Time: 14:11 Bed 16 Private MD: ED Physician Devan Fuller HPI: 04/15 15:11 This 61 yrs old Male presents to ER via Ambulatory with complaints of Headache, Blurred kb Vision. 15:07 Pt reports headache that woke him up at 0200 this morning. Reports dizziness, nausea kb and blurred vision. 15:11 The patient complains of pain to the right congregation and left congregation. The patient kb describes the headache as constant. Onset: The symptoms/episode began/occurred at 02:00. Associated signs and symptoms: Pertinent positives: dizziness, nausea, blurred vision. Severity of symptoms: At its worst the pain was moderate, in the emergency department the pain is unchanged. Headache History: The patient has had previous headaches and this one is similar to previous episodes. The symptoms are alleviated by nothing. the symptoms are aggravated by nothing. The patient has experienced similar episodes in the past. The patient has not recently seen a physician. Historical: - Allergies: 15:10 Morphine; vg1 15:10 PENICILLINS; vg1 15:10 Valium; vg1 15:10 Xanax; vg1 - Home Meds: 16:50 Plavix 75 mg Oral tab 1 tab once daily [Active]; whaley - PMHx: 15:10 Hypercholesterolemia; Hypertension; Myocardial infarction; stroke; vg1 - PSHx: 15:10 Appendectomy; eye sx; Hemorrhoidectomy; Hernia sx; vg1 - Immunization history:: Client reports having NOT received the Covid vaccine. - Social history:: Smoking status: Patient reports the use of cigarette tobacco products, smokes one-half pack cigarettes per day. ROS: 15:13 Constitutional: Negative for fever, chills, and weight loss. kb 15:13 Abdomen/GI: Positive for nausea. 15:13 Neuro: Positive for dizziness, visual changes. 15:13 All other systems are negative. Exam: 15:14 Constitutional: This is a well developed, well nourished patient who is awake, alert, kb and in no acute distress. Head/Face: Normocephalic, atraumatic. Eyes: Pupils equal round and reactive to light, extra-ocular motions intact. Lids and lashes normal. Conjunctiva and sclera are non-icteric and not injected. Cornea within normal limits. Periorbital areas with no swelling, redness, or edema. ENT: Moist Mucous membranes Cardiovascular: Regular rate and rhythm with a normal S1 and S2. No gallops, murmurs, or rubs. No pulse deficits. Respiratory: Respirations even and unlabored. No increased work of breathing. Talking in full sentences Skin: Warm, dry with normal turgor. Normal color. MS/ Extremity: Pulses equal, no cyanosis. Neurovascular intact. Full, normal range of motion. Psych: Awake, alert, with orientation to person, place and time. Behavior, mood, and affect are within normal limits. 15:14 Neuro: Orientation: to person, place, time \T\ situation. Mentation: able to follow commands, Memory: is normal, Motor: moves all fours. 17:25 ECG was reviewed by the Attending Physician. kb Vital Signs: 15:07 BP 111 / 69; Pulse 56; Resp 20; Temp 99.0(TE); Pulse Ox 98% on R/A; Weight 92.99 kg; vg1 Height 5 ft. 6 in. (167.64 cm); Pain 8/10; 15:07 Body Mass Index 33.09 (92.99 kg, 167.64 cm) vg1 [place] Coma Score: 15:14 Eye Response: spontaneous(4). Verbal Response: oriented(5). Motor Response: obeys vg1 commands(6). Total: 15. 15:14 Eye Response: spontaneous(4). Verbal Response: oriented(5). Motor Response: obeys kb commands(6). Total: 15. MDM: 15:07 Patient medically screened. kb 15:14 Data reviewed: vital signs, nurses notes. Data interpreted: Pulse oximetry: on room air kb is 98 %. Interpretation: normal. 17:25 ED course: Pt evaluated by Dr Fuller as well. kb 18:52 Counseling: I had a detailed discussion with the patient and/or guardian regarding: the kb historical points, exam findings, and any diagnostic results supporting the discharge/admit diagnosis, lab results, radiology results, the need for outpatient follow up, a family practitioner, a neurologist, to return to the emergency department if symptoms worsen or persist or if there are any questions or concerns that arise at home. 04/15 16:06 Order name: Basic Metabolic Panel; Complete Time: 17:04 kb 04/15 16:06 Order name: CBC with Diff; Complete Time: 17:04 kb 04/15 15:11 Order name: CT Head Brain wo Cont; Complete Time: 16:04 kb 04/15 16:06 Order name: Protime (+inr); Complete Time: 17:04 kb 04/15 16:06 Order name: Ptt, Activated; Complete Time: 17:04 kb 04/15 16:06 Order name: Stroke CXR 1 View; Complete Time: 17:04 kb 04/15 16:06 Order name: EKG; Complete Time: 16:07 kb 04/15 16:06 Order name: Accucheck; Complete Time: 18:05 kb 04/15 16:06 Order name: Cardiac monitoring; Complete Time: 17:19 kb 04/15 16:06 Order name: EKG - Nurse/Tech; Complete Time: 17:20 kb 04/15 16:06 Order name: IV Saline Lock; Complete Time: 18:05 kb 04/15 16:06 Order name: Labs collected and sent; Complete Time: 18:05 kb 04/15 16:06 Order name: NPO; Complete Time: 17:20 kb 04/15 16:06 Order name: O2 Per Protocol; Complete Time: 17:20 kb 04/15 16:06 Order name: O2 Sat Monitoring; Complete Time: 17:20 kb 04/15 16:06 Order name: Stroke Swallow Screen; Complete Time: 17:20 kb EC:25 Rate is 52 beats/min. Rhythm is regular. QRS [place] is Normal. TN interval is normal at kb 144 msec. QRS interval is normal at 74 msec. QT interval is normal at 412 msec. Administered Medications: 18:16 Drug: NS 0.9% 1000 ml Route: IV; Rate: 1000 ml; Site: left antecubital; whaley 18:16 Drug: Reglan (metoCLOPramide) 10 mg Route: IVP; Site: left antecubital; whaley 18:16 Follow up: Response: No adverse reaction whaley 18:16 Drug: Benadryl (diphenhydrAMINE) 25 mg Route: IVP; Site: left antecubital; whaley 18:17 Follow up: Response: No adverse reaction whaley Disposition: 22:18 Co-signature as Attending Physician, Devan Fuller DO I was immediately available on-site ms3 in the Emergency Department for consultation in the care of the patient. . Disposition Summary: 04/15/22 18:54 Discharge Ordered Location: Home kb Condition: Stable kb Diagnosis - Headache kb Followup: kb - With: Emergency Department - When: As needed - Reason: Worsening of condition Followup: kb - With: Private Physician - When: 2 - 3 days - Reason: Recheck today's complaints, Continuance of care, Re-evaluation by your physician Discharge Instructions: - Discharge Summary Sheet kb - General Headache Without Cause, [id number] kb Forms: - Medication Reconciliation Form kb - Thank You Letter kb - Antibiotic Education kb - Prescription Opioid Use kb Signatures: Dispatcher [employer] EDBritt Palmer, ELIAZAR JOYNER-Teresita Heck RN RN vg1 Devan Fuller DO DO ms3 Hailee Alonso RN RN whaley
[2022-04-15 19:26] VITALS: BP 111/69; TEMP 99; O2SAT 98
--- NOTE | 2022-04-16 08:15 | EKG ---
Test Date: 2022-04-15 Test Time: 17:06:57 Senior Architectural Designer: DEQUAN MEASUREMENT RESULTS: Intervals: Rate: 52 NV: 144 QRSD: 74 QT: 444 QTc: 412 [place]: P: 61 NV: 144 QRS: 37 T: 52 INTERPRETIVE STATEMENTS: Sinus bradycardia Cannot rule out Anterior infarct, age undetermined Abnormal ECG Compared to ECG 04/15/2022 17:05:50 No significant changes Electronically Signed On 04-16-22 08:12:35 CDT by Stefan Nova
--- NOTE | 2022-04-16 08:15 | EKG ---
Test Date: 2022-04-15 Test Time: 17:05:50 Net Wpf Developer: DEQUAN MEASUREMENT RESULTS: Intervals: Rate: 52 MS: 140 QRSD: 76 QT: 446 QTc: 414 [place]: P: 54 MS: 140 QRS: 40 T: 55 INTERPRETIVE STATEMENTS: Poor data quality, interpretation may be adversely affected Sinus bradycardia Cannot rule out Anterior infarct, age undetermined Abnormal ECG Compared to ECG 03/29/2022 19:37:01 Sinus rhythm no longer present Myocardial infarct finding still present Electronically Signed On 04-16-22 08:12:35 CDT by Stefan Nova
== END 2022-04-15 19:22 | disposition home or self-care (01) ==
LOC: ER 14:10
DX: R51.9 Headache, unspecified (principal); R42 Dizziness and giddiness; I10 Essential (primary) hypertension; I25.2 Old myocardial infarction; F17.210 Nicotine dependence, cigarettes, uncomplicated; Z79.01 Long term (current) use of anticoagulants; Z88.0 Allergy status to penicillin; Z88.5 Allergy status to narcotic agent
CPT/HCPCS: 93005 ×2; 85025; 80048; 36415; 85610; 85730; 70450; 71045; 96375; 96374; 99283; J2765; J1200; J7030

== ENCOUNTER 2022-04-20 15:26 | Emergency (ER) | payer MEDICARE ==
--- OUTSIDE RECORDS SUMMARY | 2022-04-20 15:29 | XMS REPORT | Continuity of Care Document ---
:1960 Author Organization [facility] t Address [address] [place] [address] Care Team Providers Name Role Phone Lexx Ross Primary Care Physician Lexx Ross Attending Clinician Unavailable Deshazo_T Attending Clinician Unavailable Doctor Unassigned, Name Attending Clinician Unavailable ROXANE Attending Clinician Unavailable MINDI ALBARADO Attending Clinician Unavailable MINDI ALBARADO Attending Clinician Unavailable Ayo ALLRED, A Attending Clinician Unavailable GELY Attending Clinician Unavailable OWENS_T Attending Clinician Unavailable CURRY_S Attending Clinician Unavailable Neeraj JOYNER F Attending Clinician Deshazo_T Admitting Clinician Unavailable OVILLE Admitting Clinician Unavailable OWENS_T Admitting Clinician Unavailable CURRY_S Admitting Clinician Unavailable Payers Payer Name Policy Type Policy Number Effective Date Expiration Date [facility] [id number] 2021 (MEDICARE 00:00:00 REPLACEMENT HMO) Problems Condition Condition Condition Status Onset Resolution Last Treating Co mments Source Name Details Category Date Date Treatment Clinician Date CAMDEN (acute CAMDEN (acute Disease Active 2020-09 U nivers kidney kidney 2-30 ity of injury) injury) 00:00: [place] [address] Medical Branch Esophageal Esophageal Disease Active 2017-0 [...] of breath -23 ity of 00:00: [place] [facility] NSTEMI [...] Deconges adverse 00:00: [place] tant reaction 00 [facility] s Branch DIAZEPAM DRUG Active High Anaphylaxis [...] 00 Medical Branch Penicill Propensi Active Anaphylaxis 2015- U nivers ins ty to 8-15 ity of adverse 00:00: [place] reaction 00 Medical s Branch BEE DRUG Active Anaphylaxis 2013- Unive rs STING / INGREDI 01-22 ity [...] Quantity Comments Source Exposure to Not sure [facility] SARS-CoV-2 (event) [facility] History of tobacco Cigarette Smoker University of use [facility] Alcohol intake 2021-09-27 2021-09-27 Current University 00:00:00 00:00:00 non-drinker of [facility] alcohol Branch (finding) Education 2021-09-27 2021-09-27 8 University of 00:00:00 00:00:00 [facility] Cigarette 2014-01-22 2014-01-22 University of pack-years 00:00:00 00:00:00 [facility] Tobacco use and 2014-01-22 2014-01-22 Never used Universit y of exposure 00:00:00 00:00:00 [facility] Cigarettes smoked 2014-01-22 2014-01-22 Univers ity of current (pack per 00:00:00 00:00:00 ) - Reported Branch Sex Ass[birth year] At [birth year] Universit y of 00:00:00 00:00:00 [facility] Smoking Status Start Date Stop Date Source Current every day smoker 2014-01-22 00:00:00 Uni versity of [facility] Medications Ordered Filled Start Stop Current Ordering [...] to 7 days. Indication s: acute pain pantoprazol Yes 40mg Take 1 Univ ers [...] mouth [place] 00 daily. Medical Branch metoprolol Yes 50mg Take 1 Unive rs [...] as Medical needed for Branch Insomnia. metoprolol 2017- Yes 50mg Take 1 Unive [...] mouth 00 daily. Medical Branch zolpidem 5 2017- [...] Immunizations Ordered Filled Immunization Date Status Comments [facility] e Immunization Name Name Pneumococcal 2018-01-26 Completed University o f Polysaccharide, 00:00:00 [place] Med ical PPSV23 (PNEUMOVAX) Branch Pneumococcal 2018-01-26 [...] Clinicians Facility Department ID 2021-10-24 [facility] [id number] Common 13:24:10 Mahad 18841 [facility] 2021-10-24 [facility] [id number] Common 13:06:32 Mahad 29920 [facility] 2021-10-24 [facility] [id number] Common 12:40:59 Mahad 74901 [facility] 2021-10-24 [facility] [id number] Common 12:30:18 Mahad 78174 [facility] 2021-10-24 Outpatient Ross, STLMLC STLMLC [id number] Common 12:29:04 Mahad 64376 [facility] 2021-10-24 Outpatient Ross, STLMLC STLMLC [id number] Common 11:52:46 Mahad [id number] [facility] 2021-10-24 Outpatient Ross, STLMLC STLMLC [id number] Common 11:44:17 Mahad 14635 [facility] 2021-10-24 Outpatient Ross, STLMLC STLMLC [id number] Common 11:37:11 Mahad 88277 [facility] 2022-04-18 2022-04-18 ambulatory STLMLC STLMLC [id number] Common 00:00:00 00:00:00 [facility] 2022-04-18 2022-04-18 ambulatory STLMLC STLMLC [id number] Common 00:00:00 00:00:00 [facility] 2022-04-12 2022-04-12 Outpatient Deshazo_T [facility] [id number] [facility] 03:30:00 03:30:00 0715 [facility] 2022-04-10 2022-04-10 Outpatient Deshazo_T [facility] [id number] [facility] 04:58:00 04:58:00 0713 [facility] 2022-04-04 2022-04-04 ambulatory STLMLC STLMLC [id number] Common 00:00:00 00:00:00 [facility] 2022-04-04 2022-04-04 ambulatory STLMLC STLMLC [id number] Common 00:00:00 00:00:00 [facility] 2022-03-26 2022-03-26 ambulatory STLMLC STLMLC [id number] Common 00:00:00 00:00:00 [facility] 2022-02-14 2022-02-14 ambulatory STLMLC STLMLC [id number] Common 00:00:00 00:00:00 [facility] 2022-01-22 2022-01-22 ambulatory STLMLC STLMLC [id number] Common 00:00:00 00:00:00 [facility] 2022-01-17 2022-01-17 ambulatory STLMLC STLMLC [id number] Common 00:00:00 00:00:00 [facility] 2021-11-12 2021-11-12 Orders Doctor LOYOLA [id number] Univers 00:00:00 00:00:00 Only Unassigned, SHAI [id number] ity [facility] [id number] Lauri as [phone] [address] 2021-11-01 2021-11-01 Outpatient Lion BETTS [facility] [id number] Univers 13:30:00 13:30:00 HERNAN [id number] [facility] 2021-10-16 2021-10-16 ambulatory STLMLC STLMLC [id number] Common 00:00:00 00:00:00 [facility] 2021-10-16 2021-10-16 ambulatory STLMLC STLMLC [id number] Common 00:00:00 00:00:00 [facility] 2021-10-09 2021-10-09 Outpatient NEELA FANG [facility] [id number] Univers 14:20:00 14:20:00 NEELA ALBARADO [facility] 2021-10-09 2021-10-09 Outpatient NEELA FANG [facility] [id number] Univers 13:00:00 13:00:00 NEELA ALBARADO [id number] [facility] 2021-10-09 2021-10-09 ambulatory STLMLC STLMLC [id number] Common 00:00:00 00:00:00 [facility] 2021-10-08 2021-10-08 ambulatory STLMLC STLMLC [id number] Common 00:00:00 00:00:00 [facility] 2021-10-05 2021-10-05 ambulatory STLMLC STLMLC [id number] Common 00:00:00 00:00:00 [facility] 2021-10-02 2021-10-02 Transition SIOBHAN [place]ins [id number] Univers 00:00:00 00:00:00 of Care Simón PEREA [id number] ity [facility] [id number] Tess dent [phone] [address] 2021-10-01 2021-10-01 ambulatory STLMLC STLMLC [id number] Common 00:00:00 00:00:00 [facility] 2021-09-27 2021-09-30 Outpatient Kt HONG, [facility] [id number] Univers 17:38:00 15:22:00 VIKASH tony [facility] 2021-09-19 2021-09-19 Outpatient OWENS_T DMG DMG [id number] [facility] 01:00:00 01:00:00 1222 [facility] l [facility] 2021-08-10 2021-08-10 Outpatient OWENS_T DMG G [id number] [facility] 10:31:00 10:31:00 1112 [facility] 2021-08-07 2021-08-07 [facility] [id number] [facility] 02:14:00 02:14:00 1109 [facility] 2021-07-17 2021-07-17 Outpatient STLMLC STLMLC [id number] Common 00:00:00 00:00:00 [facility] 2021-07-10 2021-07-10 Outpatient STLMLC STLMLC [id number] Common 00:00:00 00:00:00 [facility] 2021-07-04 2021-07-04 Outpatient STLMLC STLMLC [id number] Common 00:00:00 00:00:00 [facility] 2021-06-26 2021-06-26 Outpatient STLMLC STLMLC [id number] Common 00:00:00 00:00:00 [facility] 2021-05-29 2021-05-29 Outpatient STLMLC STLMLC [id number] Common 00:00:00 00:00:00 [facility] 2021-05-22 2021-05-22 Outpatient CURRY_S DMG [id number] [facility] 05:13:00 05:13:00 0824 [facility] 2021-05-22 2021-05-22 Outpatient STLMLC STLMLC [id number] Common 00:00:00 00:00:00 [facility] 2021-05-04 2021-05-04 Outpatient STLMLC STLMLC [id number] Common 00:00:00 00:00:00 [facility] 2021-04-30 2021-04-30 Outpatient STLMLC STLMLC [id number] Common 00:00:00 00:00:00 [facility] 2021-04-30 2021-04-30 Outpatient STLMLC STLMLC [id number] Common 00:00:00 00:00:00 [facility] 2021-04-06 2021-04-06 Outpatient STLMLC STLMLC [id number] Common 00:00:00 00:00:00 [facility] 2021-01-29 2021-01-29 Outpatient DMG [id number] [facility] 06:02:00 06:02:00 0503 [facility] 2021-01-18 2021-01-18 Outpatient DMG DMG [id number] [facility] 12:00:00 12:00:00 0422 Med[facility] l Group 2020-08-14 2020-08-14 Emergency Neeraj [facility] [id number] 14:12:00 15:54:00 Love Butcher [id number] [place] [id number] [place] [address] [id number] [id number] Results This patient has no known results.
[2022-04-20] MEDS ORDERED: IBUPROFEN 400 MG TAB ONE (16:08)
--- NOTE | 2022-04-20 17:03 | EDPHYS ---
Physician Documentation [facility] Name: Wood Jj Age: 61 yrs Sex: Male : 1960 Arrival Date: 04/20/2022 Time: 15:28 Bed 10 Private MD: [facility] ED Physician Carla Harris HPI: 04/20 15:57 This 61 yrs old Male presents to ER via Wheelchair with complaints of Flu Symptoms. jmm 15:57 The patient or guardian reports cough. Onset: The symptoms/episode began/occurred jmm gradually. Modifying factors: The symptoms are alleviated by nothing. the symptoms are aggravated by nothing. Associated signs and symptoms: Pertinent positives:. This is a 61 year old male with a history of hlp that presents to the ED with complaints of hlp, htn, mi that presents to the ED with complaints of cough, congestion, fever, body aches.. Historical: - Allergies: 15:54 Morphine; vg1 15:54 PENICILLINS; vg1 15:54 Valium; vg1 15:54 Xanax; vg1 - Home Meds: 15:54 Plavix 75 mg Oral tab 1 tab once daily [Active]; vg1 - PMHx: 15:54 Hypercholesterolemia; Hypertension; Myocardial infarction; stroke; vg1 - PSHx: 15:54 Appendectomy; eye sx; Hemorrhoidectomy; Hernia sx; vg1 - Immunization history:: Client reports having NOT received the Covid vaccine. - Social history:: Smoking status: Patient reports the use of cigarette tobacco products, smokes one-half pack cigarettes per day. ROS: 15:57 Cardiovascular: Negative for chest pain, palpitations, and edema, Respiratory: Negative jmm for shortness of breath, cough, wheezing, and pleuritic chest pain. 15:57 Back: Negative for injury and pain. 15:57 Constitutional: Positive for body aches, chills. 15:57 Neuro: Positive for headache. 15:57 All other systems are negative. Exam: 15:57 Head/Face: atraumatic. Eyes: EOMI, no conjunctival erythema appreciated ENT: Moist jmm Mucus Membranes Neck: Trachea midline, Supple Chest/axilla: Normal chest wall appearance and motion. 15:57 Constitutional: The patient appears in no acute distress, alert, awake. 15:57 Cardiovascular: Rate: normal, Rhythm: regular. 15:57 Respiratory: the patient does not display signs of respiratory distress, Respirations: normal, Breath sounds: are clear throughout. 15:57 Abdomen/GI: Inspection: abdomen appears normal, Bowel sounds: normal, Palpation: abdomen is soft and non-tender, in all quadrants. 15:57 Musculoskeletal/extremity: ROM: intact in all extremities. 15:57 Skin: Appearance: Color: normal in color. 15:57 Neuro: Orientation: is normal, Mentation: is normal, Memory: is normal. 15:57 Psych: Behavior/mood is pleasant, cooperative. Vital Signs: 15:52 BP 109 / 59; Pulse 86; Resp 20; Temp 101.0(O); Pulse Ox 96% on R/A; Weight 94.8 kg; 1 Height 5 ft. 6 in. (167.64 cm); Pain 8/10; 18:56 BP 122 / 76; Pulse 88; Resp 18; Temp 98.3(TE); Pulse Ox 98% on R/A; bh1 15:52 Body Mass Index 33.73 (94.80 kg, 167.64 cm) [facility] MDM: 17:02 Data reviewed: vital signs, nurses notes. Counseling: I had a detailed discussion with yudelka the patient and/or guardian regarding: the historical points, exam findings, and any diagnostic results supporting the discharge/admit diagnosis, the need for outpatient follow up, to return to the emergency department if symptoms worsen or persist or if there are any questions or concerns that arise at home. 17:02 Patient medically screened. [facility] 04/20 15:56 Order name: Flu; Complete Time: 17:11 [facility] 04/20 15:56 Order name: SARS-COV-2 RT PCR (Document "Date of Onset" if Symptomatic); Complete Time: [facility] 17:11 Administered Medications: 16:02 Drug: Ibuprofen 400 mg Route: PO; [facility] 17:42 Follow up: Response: No adverse reaction [facility] 18:02 Drug: Bebtelovimab 1 application Route: IV; Rate: calculated rate; Site: right wrist; 1 18:03 Follow up: Response: No adverse reaction; IV Status: Completed infusion [facility] 18:02 Drug: Decadron - Dexamethasone 10 mg Route: IVP; Site: right wrist; [facility] 18:03 Follow up: Response: No adverse reaction [facility] Disposition: 04/21 07:49 STAFF ATTESTATION STATEMENT I was immediately available on-site in the Emergency sd2 Department for consultation in the care of the patient. Carla Harris MD. Disposition Summary: 04/20/22 18:47 Discharge Ordered Location: Home(04/20/22 18:47) [facility] Condition: Stable(04/20/22 18:47) [facility] Diagnosis - Coronavirus infection, unspecified(04/20/22 18:47) [facility] Followup: [facility] - With: Mahad Ross, - When: 1 - 2 days - Reason: Recheck today's complaints, Continuance of care, Re-evaluation by your physician Discharge Instructions: - Discharge Summary Sheet [facility] - COVID-19 [facility] Forms: - Medication Reconciliation Form [facility] - Thank You Letter [facility] - Antibiotic Education [facility] - Prescription Opioid Use [facility] Prescriptions: - PAXLOVID - take 300 milligram by ORAL route 2 times per day for 5 days; 1 packet; Refills: [facility] 0, Product Selection Permitted - Zithromax Z-Bijan 250 mg Oral Tablet - take 1 tablet by ORAL route as directed for 5 days Day 1 - take two (2) tablets [facility] one time. Day 2, 3, 4 , 5 take one (1) tablet once daily.; 6 tablet; Refills: 0, Product Selection Permitted - albuterol sulfate 90 mcg/actuation Inhalation HFA aerosol inhaler - inhale 2 puff by INHALATION route every 4-6 hours; 1 Pump; Refills: 0, Product [facility] Selection Permitted Signatures: Dispatcher [employer] Aly Hein PA PA jmm Garcia, Victoria, RN RN 1 Carla Harris orMatilde Gimenez RN RN [facility] Corrections: (The following items were deleted from the chart) 04/20 17:11 17:02 Home [facility] 17:11 17:02 Stable [facility] 17: 17:02 Coronavirus infection, unspecified raymond jha
--- NOTE | 2022-04-20 17:03 | ER ---
Nurse's Notes [facility] Name: Wood Jj Age: 61 yrs Sex: Male : 1960 Arrival Date: 04/20/2022 Time: 15:28 Bed 10 Private MD: Mahad Ross Diagnosis: Coronavirus infection, unspecified Presentation: 04/20 15:52 Chief complaint: Patient states: diffiuclty breathing, headache, fever, and body aches. vg1 Coronavirus screen: Vaccine status: Patient reports being unvaccinated. Client denies travel out of the [place] in the last 14 days. Ebola Screen: Patient denies exposure to infectious person. Patient denies travel to an Ebola-affected area in the 21 days before illness onset. Initial Sepsis Screen: Does the patient meet any 2 criteria? Temp <36.0*C (96.8*F)) or > 38.3*C (100.9*F). Does the patient have a suspected source of infection? No. Patient's initial sepsis screen is negative. Risk Assessment: Do you want to hurt yourself or someone else? Patient reports no desire to harm self or others. Onset of symptoms was April 18, 2022. 15:52 Method Of Arrival: Wheelchair vg1 15:52 Acuity: LISA 4 vg1 Triage Assessment: 15:54 General: Appears in no apparent distress. uncomfortable, Behavior is calm, cooperative. vg1 Pain: Complains of pain in generalize body Pain currently is 8 out of 10 on a pain scale. Respiratory: Airway is patent Respiratory effort is even, unlabored. Historical: - Allergies: 15:54 Morphine; vg1 15:54 PENICILLINS; vg1 15:54 Valium; vg1 15:54 Xanax; vg1 - Home Meds: 15:54 Plavix 75 mg Oral tab 1 tab once daily [Active]; vg1 - PMHx: 15:54 Hypercholesterolemia; Hypertension; Myocardial infarction; stroke; vg1 - PSHx: 15:54 Appendectomy; eye sx; Hemorrhoidectomy; Hernia sx; vg1 - Immunization history:: Client reports having NOT received the Covid vaccine. - Social history:: Smoking status: Patient reports the use of cigarette tobacco products, smokes one-half pack cigarettes per day. Screenin:03 Abuse screen: Denies threats or abuse. Nutritional screening: No deficits noted. [facility] Tuberculosis screening: No symptoms or risk factors identified. Fall Risk None identified. Assessment: 16:02 Reassessment: received VO from Cruz LANDON to administer Ibuprofen 400 mg PO x 1. [facility] Vital Signs: 15:52 BP 109 / 59; Pulse 86; Resp 20; Temp 101.0(O); Pulse Ox 96% on R/A; Weight 94.8 kg; vg1 Height 5 ft. 6 in. (167.64 cm); Pain 8/10; 18:56 BP 122 / 76; Pulse 88; Resp 18; Temp 98.3(TE); Pulse Ox 98% on R/A; 1 15:52 Body Mass Index 33.73 (94.80 kg, 167.64 cm) [facility] ED Course: 15:28 Patient arrived in ED. mr 15:28 Mahad Ross DO is Private Physician. mr 15:54 Triage completed. 1 15:54 Arm band placed on. [facility] 15:57 Aly Arroyo PA is [facility]. [facility] 15:57 Carla Harris is Attending Physician. [facility] 16:52 Matilde Maher, BRIGIDA is Primary Nurse. [facility] 17:02 Mahad Ross DO is Referral Physician. [facility] 18:03 No apparent distress. Resting quietly. 1 18:03 Patient has correct armband on for positive identification. 1 18:03 No provider procedures requiring assistance completed. Inserted saline lock: 20 gauge bh1 in right wrist, using aseptic technique. 18:47 Mahad Ross DO is Referral Physician. [facility] 18:56 IV discontinued, intact, bleeding controlled, No redness/swelling at site. [facility] Administered Medications: 16:02 Drug: Ibuprofen 400 mg Route: PO; 1 17:42 Follow up: Response: No adverse reaction [facility] 18:02 Drug: Bebtelovimab 1 application Route: IV; Rate: calculated rate; Site: right wrist; [facility] 18:03 Follow up: Response: No adverse reaction; IV Status: Completed infusion [facility] 18:02 Drug: Decadron - Dexamethasone 10 mg Route: IVP; Site: right wrist; [facility] 18:03 Follow up: Response: No adverse reaction bh1 Medication: 18:03 VIS not applicable for this client. [facility] Outcome: 17:02 Discharge ordered by . raymond 18:47 Discharge ordered by . yudelka 18:56 Discharged to home ambulatory. [facility] 18:56 Condition: good 18:56 Discharge instructions given to patient, Instructed on discharge instructions, follow up and referral plans. medication usage, Demonstrated understanding of instructions, follow-up care, medications, Prescriptions given X 3. 18:56 Patient left the ED. [facility] Signatures: Aly Arroyo PA PA jmm Rivera, Mary mr Garcia, Victoria, RN RN 1 Matilde Maher RN RN 1 Corrections: (The following items were deleted from the chart) 16:03 15:52 Acuity: LISA 3 1 1
[2022-04-20] MEDS ORDERED: dexAMETHasone 10 MG/ML VIAL ONE (17:31)
[2022-04-20] MEDS ORDERED: BEBTELOVIMAB 175 MG/2 ML VIAL IV ONE (17:32)
[2022-04-20 19:14] VITALS: BP 122/76; TEMP 98.3; O2SAT 98
== END 2022-04-20 18:56 | disposition home or self-care (01) ==
LOC: ER 15:26
DX: U07.1 COVID-19 (principal); I10 Essential (primary) hypertension; I25.2 Old myocardial infarction; F17.210 Nicotine dependence, cigarettes, uncomplicated; Z88.0 Allergy status to penicillin; Z88.5 Allergy status to narcotic agent; Z79.01 Long term (current) use of anticoagulants
CPT/HCPCS: 87804 ×2; 96375; 96374; 99283; U0003; J1100

== ENCOUNTER → 2022-05-27 | Day surgery (SDC) | payer MEDICARE ==
[2022-05-21 10:56] LABS: Absolute Lymphocytes (CBC) 1.9 K/uL (0.7-4.9); Hematocrit 40.1 % (39.6-49.0); Lymphocytes % 23.1 % (15.3-44.8); MCV 90.2 fL (80-100); MPV 6.6 fL (7.6-11.3); RBC Red Blood Cell Count 4.45 M/uL (4.33-5.43)
[2022-05-21 11:15] LABS: Potassium 4.4 mmol/L (3.5-5.1)
[~2022-05-27] MED LIST: CIPROFLOXACIN 400mg IV 400 MG/200 ML BAG IV ONE; EPHEDRINE SULF 50 MG/ML VIAL ONE; FENTANYL CITR 250 MCG/5 ML ONE; GLYCOPYRROLATE 0.2 MG/ML SYR ONE; HYDROCODONE/APAP 7.5/325 MG TAB PO PRN; LIDOCAINE 1% MPF 5 ML VIAL ONE; MIDAZOLAM HCL 2 MG/2 ML INJ ONE; Mastisol Adhesive Liq ONE; NEOSTIGMINE 1 MG/ML -10 ML VIAL ONE; ONDANSETRON 4 MG/2 ML VIAL ONE; Phenylephrine HCl 10 MG/ML 1 ML VIAL ONE; ROCURONIUM 50 MG/5 ML VIAL IV ONE; Ringers Lactate 1,000 ML IV ONE; dexAMETHasone 10 MG/ML VIAL ONE; propofoL 200 MG/20 ML VIAL IV ONE
--- NOTE | 2022-05-27 10:34 | P.OP ---
Date of Service: 05/27/22 Preop diagnosis: Incarcerated umbilical hernia Postop diagnosis: Same Procedure performed: Laparoscopic repair incarcerated umbilical hernia Surgeon: Robret Benitez MD Paraprofessional Interpreter: ARIANA Oscar Estimated blood loss: Minimal Specimen: Hernia sac Findings: As above Anesthesia: General Complications: None Drains: None Fluids and blood products: Nonapplicable Disposition: Recovery room Operative note: Patient brought to the OR and placed in the supine position. General anesthesia begun. Patient prepped and draped in the usual sterile fashion. Marcaine 0.5% infiltrated locally. 15 blade used to make a left upper quadrant 1 cm incision. Subcutaneous tissue divided and fascia identified and divided. #1 Vicryl stay suture placed into the fascia. Peritoneal cavity entered with sharp and blunt dissection. 12 mm trocar placed into the peritoneal cavity under direct vision. Pneumoperitoneum established. 5 mm tro car placed in the left lower quadrant. Laparoscopy revealed incarcerated omentum into a approximately a 3 cm hernia. Most of the omentum was reduced however there was small amount that could not be reduced. A 4 cm incision was made over the umbilicus. Subcutaneous tissue divided. Hernia sac identified and excised. The omentum that was in there was stuck in the hernia sac and had some bruising associated with it. Therefore, a partial omentectomy was performed. The omentum was divided with Moon clamps and tied with 2-0 silk ties. Omentum was sent to pathology as well. Approximately 3 cm defect remained. Medium sized VersaTack mesh placed into the peritoneal cavity and the defect closed with a running #1 PDS suture. Then laparoscopy reestablished and tacker used to secure the mesh to the peritoneal surface, with complete coverage and 3 [address] the way around. There was no evidence of bleeding or bowel injury appreciated. All trochars removed under direct vision. Stay sutures tied to each other to close the fascial defect. 3-0 chromic used to approximate subcutaneous tissue and close skin. Sterile dressing applied and patient awakened taken to recovery room in good general condition. CC: Dr. Mahad Ross's office
[2022-05-27] MEDS: HYDROMORPHONE HCL 1 MG/ML INJ ONE ×2 (10:45→10:50)
[2022-05-27] MEDS: FENTANYL CITR 100 MCG/2 ML ONE ×2 (10:55→11:05)
[2022-05-27 12:23] VITALS: BP 110/53; TEMP 96.8; O2SAT 99
== END | disposition home or self-care (01) ==
LOC: OR 07:11
PROVIDERS: ATTEND Surgery
PROC: 0WUF4JZ Supplement Abdominal Wall with Synthetic Substitute, Percutaneous Endoscopic Approach (ICD-10-PCS; principal; 2022-05-27 09:30)
DX: K42.0 Umbilical hernia with obstruction, without gangrene (principal)
CPT/HCPCS: 85025; 80048; 36415; 88302 ×2; 49653; J2704; J2710; J2370; J3010 ×2; J1100; J1170; J7120 ×2; J2405 ×2; J0744; 88304; J2250

== ENCOUNTER 2022-05-31 21:24 | Inpatient (IN) | payer MEDICARE ==
--- OUTSIDE RECORDS SUMMARY | 2022-05-31 21:31 | XMS REPORT | Continuity of Care Document ---
:1960 Author Organization [facility] t Address [address] [place] [address] Care Team Providers Name Role Phone Mahad Ross Primary Care Physician Mahad Ross Attending Clinician Unavailable CALLIE CUELLAR Attending Clinician Unavailable Simón Rollins RN Attending Clinician Unavailable Gertrude Black DO Attending Clinician Callie Cuellar DO Attending Clinician Cobb_T Attending Clinician Unavailable Deshazo_T Attending Clinician Unavailable Doctor Unassigned, [place] Attending Clinician Unavailable HERNAN BETTS Attending Clinician Unavailable NEELA ALBARADO Attending Clinician Unavailable NEELA ALBARADO Attending Clinician Unavailable VIKASH HONG Attending Clinician Unavailable OWENS_T Attending Clinician Unavailable CURRY_S Attending Clinician Unavailable Love Campbell Attending Clinician CALLIE CUELLAR Admitting Clinician Unavailable Callie Cuellar DO Admitting Clinician Cobb_T Admitting Clinician Unavailable Deshazo_T Admitting Clinician Unavailable VIKASH HONG Admitting Clinician Unavailable OWENS_T Admitting Clinician Unavailable CURRY_S Admitting Clinician Unavailable Payers Payer Name Policy Type Policy Number Effective Date Expiration Date S tricia [facility] [employer] [id number] 2021 (MEDICARE 00:00:00 REPLACEMENT HMO) Problems Condition Condition Condition Status Onset Resolution Last Treating Co mments Source Name Details Category Date Date Treatment Clinician Date Chest Chest Disease Active Univers pain, pain, 8-25 ity of unspecifie [place]ifie [place] type d type 00 [facility] Primary Primary Disease Active Univers hypertensi hypertensi 8-25 it y of on on 00:00: [place] [facility] Other Other Disease Active Univers hyperlipid hyperlipid 8-25 it y of emia emia 00:00: [place] [facility] Drug abuse Drug abuse Disease Active U nivers 8-25 ity of 00:00: [place] [facility] Nonobstruc Nonobstruc Disease Active U nivers tive tive 8-25 ity of atheroscle atheroscle [place] rosis of rosis of 00 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 CAMDEN (acute CAMDEN (acute Disease Active 2020-09 U nivers kidney kidney 2-30 ity of injury) injury) 00:00: [place] [facility] Esophageal Esophageal Disease Active U nivers spasm spasm 4-30 ity of 00:00: [place] 00 Medical Branch A-fib A-fib Disease Active Univers 4-24 ity of 00:00: [place] 00 Medical Branch Atrial Atrial Disease Active Univers fibrillati fibrillati 4-23 it y of on with on with 00:00: [place] RVR RVR 00 Medical Branch Shortness Shortness Disease Active Uni vers of breath of breath 4-23 ity of 00:00: [place] 00 Medical Branch NSTEMI NSTEMI Disease Active Univers (non-ST (non-ST 4-23 ity of elevated elevated 00:00: [place] myocardial myocardial 00 Me dical infarction infarction Br anch ) ) Tobacco Tobacco Disease Active Univers abuse abuse 4-23 ity of 00:00: [place] 00 Medical Branch Family Family Disease Active Univers history of history of 4-23 it y of early CAD early CAD 00:00: [place] [facility] [place] Inguinal Inguinal Disease Active 2016-09 Unive rs hernia hernia 2-04 ity of 00:00: [place] 00 Medical Branch Obesity Obesity Disease Active 2016-09 Univers (BMI (BMI 2-04 ity of 30-39.9) 30-39.9) 00:00: [place] 00 Medical Branch Status Status Disease Active Univers epilepticu epilepticu -26 it y of s s 00:00: [place] [facility] Seizure Seizure Disease Active Univers 4-26 ity of 00:00: [place] 00 Medical Branch Allergies, Adverse Reactions, Alerts Allergy Allergy Status Severity Reaction(s) Onset Inactive Treating Comm ents Source Name Type Date Date Clinician LORAZEPA DRUG Active Anaphylaxis Uni vers M INGREDI 8-25 ity of 00:00: [place] [facility] Lorazepa Propensi Active Anaphylaxis U nivers m ty to 8-25 ity of adverse 00:00: [place] reaction 00 Medical s Branch BENADRYL DRUG Active High Swelling 2018-09 Univer s ALLERGY 1-14 ity of DECONGES 00:00: [place] TANT 00 Medical Branch Benadryl Propensi Active Swelling 2018-09 Univ ers Allergy ty to 1-14 ity of Deconges adverse 00:00: [place] tant reaction Medical s Branch DIAZEPAM DRUG Active High Anaphylaxis 2016- Uni vers INGREDI 2-04 ity of 00:00: [...] 00 Medical Branch Penicill Propensi Active Anaphylaxis 0 U nivers ins ty to 8-15 ity of adverse 00:00: [place] reaction 00 Medical s Branch Penicill Propensi Active Anaphylaxis 2015-0 U nivers ins ty to 8-15 ity of adverse 00:00: [place] reaction Medical s Branch Bee Propensi Active Anaphylaxis Uni vers Sting / ty to 4-26 ity of [place] adverse 00:00: [place] reaction Medical s to Branch drug VENOM-WA DRUG Active Anaphylaxis Uni vers SP INGREDI 4-26 ity of 00:00: [place] 00 Medical Branch [place]-Wa Propensi Active Anaphylaxis U nivers sp ty to 01-22 ity of adverse 00:00: [place] reaction 00 Medical s [place] BEE DRUG Active Anaphylaxis Unive rs STING / INGREDI 01-22 ity of VENOM 00:00: [address] Social History Social Habit Start Date Stop Date Quantity Comments Source History of tobacco Cigarette Smoker University of use [facility] Exposure to 2022-05-13 2022-05-23 Not sure University SARS-CoV-2 (event) 00:00:00 14:14:00 [facility] Alcohol intake 2022-05-23 2022-05-23 Current University of 00:00:00 00:00:00 non-drinker of [facility] alcohol [place] (finding) Cigarette 2021-09-27 2021-09-27 University of pack-years 00:00:00 00:00:00 [facility] Tobacco use and 2021-09-27 2021-09-27 Smokeless Universit y of exposure 00:00:00 00:00:00 tobacco non-user [facility] 2021-09-27 2021-09-27 8 University of 00:00:00 00:00:00 [facility] Cigarettes smoked 2021-09-27 2021-09-27 Univers ity of current (pack per 00:00:00 00:00:00 ) - Reported Branch Sex [birth year] At [birth year] Universit y of 00:00:00 00:00:00 [facility] Smoking Status Start Date Stop Date Source Smokes tobacco daily 2021-09-27 00:00:00 Univers ity of [facility] Medications Ordered Filled Start Stop Current Ordering Indication Dosage Frequency Signature Comments Components Source Medication Medication Date Date Medication? Clinician (SIG) Name Name carvediloL 2021- Yes [id number] 3.125mg Take 1 Univers 3.125 mg 8-06-25 tablet by ity o f tablet 00:00: 04:59 mouth in [place] 00 :00 the Medical morning Branch and 1 tablet in the evening. Take with meals. Do all this for 30 days. carvediloL 2021- Yes [id number] 3.125mg Take 1 Univers 3.125 mg 8-27 - tablet by ity o f tablet 00:00: 04:59 mouth in [place] 00 :00 the Medical morning Branch and 1 tablet in the evening. Take with meals. Do all this for 30 days. nicotine 21 Yes 1{patch Apply 1 Univers mg/24 hr 05-24 } Patch to ity of patch 17:45: area(s) [place] 28 every 24 Medical (twenty-fo Branch ur) hours. Patient reports he smokes 13 cigarettes per day. nicotine 21 2021-0 Yes 1{patch Apply 1 Univers mg/24 hr 05-24 } Patch to ity of patch 17:45: area(s) [place] 28 every 24 Medical (twenty-fo Branch ur) hours. Patient reports he smokes 13 cigarettes per day. hydrOXYzine Yes 10mg 10 mg, Univ ers (ATARAX) 05-24 Oral, ity of tablet 10 15:14: Q6HPRN, [place] mg 53 Starting Medical on Fri Branch 05/24/22 at 1014, Until Discontinu ed, Routine, Anxiety, Itching polyethylen 0 Yes 17g 17 g, Unive rs e glycol 05-24 Oral, ity of 3350 powder 14:00: DAILY, [place] 17 g 00 First dose Medical on Fri Branch 05/24/22 at 0900, Until Discontinu ed, Routine pantoprazol 0 Yes 40mg 40 mg, Univ ers e 05-24 Oral, ity of (PROTONIX) 14:00: DAILY, [place] EC tablet 00 First dose Medi usman 40 mg on Fri Branch 05/24/22 at 0900, Until Discontinu ed, Routine lisinopriL 0 Yes 2.5mg 2.5 mg, Uni vers (PRINIVIL,Z 05-24 Oral, ity of ESTRIL) 14:00: DAILY, [place] tablet 2.5 00 First dose Med ical mg on Fri Branch 05/24/22 at 0900, Until Discontinu ed, Routine isosorbide 0 Yes 30mg 30 mg, Unive rs mononitrate 05-24 Oral, ity of (IMDUR) 24 14:00: DAILY, [place] hr tablet 00 First dose Medi usman 30 mg on Fri Branch 05/24/22 at 0900, Until Discontinu ed, Routine atorvastati 2022-0 Yes 80mg 80 mg, Univ ers n (LIPITOR) 05-24 Oral, ity of tablet 80 14:00: DAILY, [place] mg 00 First dose Medical on Fri Branch 05/24/22 at 0900, Until Discontinu ed, Routine aspirin 0 Yes 81mg 81 mg, Univers chewable 05-24 Oral, ity of tablet 81 14:00: DAILY, [place] mg 00 First dose Medical on Fri Branch 05/24/22 at 0900, Until Discontinu ed, Routine carvediloL 0 Yes 3.125mg 3.125 mg, Univers (COREG) 05-24 Oral, BID ity of tablet 13:00: MEALS, [place] 3.125 mg 00 First dose Medic al on Fri05/24/22 at 0800, Until Discontinu ed, Routine NaCl 0.9% 0 Yes 1000mL at 75 Unive rs (NS) IV 8-26 mL/hr, IV ity of infusion 01:30: Infusion, [place] 1,000 mL 00 CONTINUOUS Medic al , Starting Branch on Fri05/23/22 at 2030, Until Discontinu ed, Routine sennosides- 0 Yes 1{tbl} 1 tablet, Univers docusate 05-24 Oral, BID, ity o f sodium 01:00: First dose [place] (SENOKOT-S) 00 on Nohemy Medica l 8.6-50 mg 05/23/22 at Bran ch per tablet 1999, 1 tablet Until Discontinu ed, Routine enoxaparin 0 Yes 1mg/kg 90 mg [facility] ers (LOVENOX) 05-24 (rounded ity of injection 01:00: [place] 93 mg [place] 90 mg 00 = 1 mg/kg Medical ?93 kg), Branch [facility], Q12H, First dose (after last modificati on) on Fri05/23/22 at 2000, Until Discontinu ed, Routine nicotine 0 Yes 1{patch 1 Patch, Un lee (NICODERM) 05-24 } Topical, ity o f 21 mg/24 hr 00:45: Administer [place] patch 1 00 over 24 Medical Patch Hours, Branch Q24H, First dose on Fri05/23/22 at 1945, Until Discontinu ed, Routine hydrOXYzine 2021- Yes [id number] 10mg Take 1 Univers 10 mg 05-24 tablet by ity of tablet 00:00: 04:59 mouth [place] 00 :00 every 6 Medical (six) Branch hours as needed for Anxiety for up to 30 days. hydrOXYzine 2021- Yes [id number] 10mg Take 1 Univers 10 mg 05-24 tablet by ity of tablet 00:00: 04:59 mouth [place] 00 :00 every 6 Medical (six) Branch hours as needed for Anxiety for up to 30 days. enoxaparin 2021- No 40mg 40 mg, Univ ers (LOVENOX) 05-23 Subcutaneo ity of injection 22:00: 23:48 us, DAILY, [place] 40 mg 00 :16 First dose Medical on [facility] Branch 05/23/22 at 1700, Until Discontinu ed, Routine ondansetron Yes 4mg 4 mg, Slow Univers (ZOFRAN 05-23 IV Push, ity of (PF)) 19:56: Q6HPRN, [place] injection 4 03 Starting Medi usman mg on [facility] Branch 05/23/22 at 1456, Until Discontinu ed, Routine, Nausea and Vomiting (N/V) HYDROcodone 2021- Yes 1{tbl} 1 tablet, Univers -acetaminop 05-23 Oral, ity of hen (NORCO 19:55: 19:54 Q6HPRN, [place] as 5) 5-325 mg 52 :52 Starting Medi usman tablet 1 on [facility] tablet 05/23/22 at 1455, Until 05/25/22 at 1454, Routine, Pain (scale 4-6) acetaminoph Yes 650mg 650 mg, Un lee en 05-23 Oral, ity of (TYLENOL) 19:55: Q6HPRN, [place] tablet 650 49 Starting Medic al mg on [facility] Branch 05/23/22 at 1455, Until Discontinu ed, Routine, Pain (scale 1-3) NaCl 0.9% 2021- No 1000mL at 999 Uni vers (NS) bolus 05-23 08-25 mL/hr, ity of infusion 18:45: 22:25 1,000 mL, [place] as 1,000 mL 00 :22 IV Medical Infusion, Branch ONCE, 1 dose, On Nohmey 05/23/22 at 1345, VANNA NaCl 0.9% No 1000mL at 999 Uni vers (NS) bolus 05-23 mL/hr, ity of infusion 15:15: 18:21 1,000 mL, [place] as 1,000 mL 00 :00 IV Medical Infusion, Branch ONCE, 1 dose, On Nohemy 05/23/22 at 1015, VANNA LORazepam 2021- No 1mg 1 mg, Slow U nivers (ATIVAN) 05-23 IV Push, ity of injection 1 13:30: 13:45 ONCE, 1 [place] mg 00 :00 dose, On Medical Nohemy Branch 05/23/22 at 0830, STAT
Is the medication being used for status epilepticu s? No HYDROcodone 2021- No [id number] 1{tbl} Take 1 U nivers -acetaminop 09-30 01-10 tablet by it y of hen (NORCO) 00:00: 05:59 mouth [place] 10-325 mg 00 :00 every 8 Medical tablet (eight) Branch hours as needed for Pain (scale 7-10) for up to 7 days. Indication s: acute pain atorvastati Yes 80mg Take 1 Univ ers [...] [place] tablet 00 daily. Medical Branch atorvastati 2018-0 Yes 80mg Take 1 Univ ers n 80 mg 5-01 tablet by ity of tablet 00:00: mouth [place] 00 daily. Medical Branch pantoprazol 2018-0 Yes 40mg Take 1 Univ ers e 40 mg EC 5-01 tablet by ity of tablet 00:00: mouth [place] 00 daily. Medical Branch isosorbide 2018-0 Yes 30mg Take 1 Unive rs mononitrate 5-01 tablet by ity of 30 mg 24 hr 00:00: mouth [place] tablet 00 daily. Medical Branch atorvastati 2017-0 Yes 80mg Take 1 Univ [...] mouth [place] 00 daily. Medical Branch lisinopril Yes 2.5mg Take 1 Univ ers 2.5 mg 4-30 tablet by ity of tablet 00:00: mouth [place] 00 daily. Medical Branch zolpidem 5 Yes 5mg Take 1 Unive rs mg tablet 4-30 tablet by ity o f 00:00: mouth at [place] 00 bedtime as Medical needed for Branch Insomnia. aspirin 81 Yes 81mg Take 1 Unive rs mg chewable 4-30 tablet by ity of tablet 00:00: mouth [place] 00 daily. Medical Branch lisinopril Yes 2.5mg Take 1 Univ ers 2.5 mg 4-30 tablet by ity of tablet 00:00: mouth [place] 00 daily. Medical Branch aspirin 81 Yes 81mg Take 1 Unive rs mg chewable 4-30 tablet by ity of tablet 00:00: mouth [place] 00 daily. Medical Branch lisinopril Yes 2.5mg Take 1 Univ ers 2.5 mg 4-30 tablet by ity of tablet 00:00: mouth [place] 00 daily. Medical Branch metoprolol 2021- No 50mg Take 1 Univ ers succinate 4-30 08-26 tablet by ity of XL 50 mg 24 00:00: 00:00 mouth 2 [place] hr tablet 00 :00 (two) Medical times Branch daily. zolpidem 5 2021- No 5mg Take 1 Univ ers mg tablet 4-30 08-26 tablet by ity of 00:00: 00:00 mouth at [place] 00 :00 bedtime as Medical needed for Branch Insomnia. sulindac Yes 200mg Take 1 Univer s (CLINORIL) 8-15 tablet by ity of 200 mg 00:00: mouth 2 [place] tablet 00 (two) Medical times Branch daily. sulindac 0 Yes 200mg Take 1 Univer s (CLINORIL) 8-15 tablet by ity of 200 mg 00:00: mouth 2 [place] tablet 00 (two) Medical times Branch daily. sulindac 2015-2021- No 200mg Take 1 Unive rs (CLINORIL) 8-15 08-26 tablet by ity of 200 mg 00:00: 00:00 mouth 2 [place] tablet 00 :00 (two) Medical times Branch daily. Immunizations Ordered Filled Immunization Date Status Comments [facility] e Immunization Name Name Pneumococcal 2018-01-26 Completed [place] o f Polysaccharide, 00:00:00 [place] Med ical PPSV23 (PNEUMOVAX) Branch Pneumococcal 2018-01-26 Completed [place] o f Polysaccharide, 00:00:00 [place] Med ical PPSV23 (PNEUMOVAX) Branch Pneumococcal 2018-01-26 Completed [place] o f Polysaccharide, 00:00:00 [place] Med ical PPSV23 (PNEUMOVAX) Branch Pneumococcal 2018-01-26 Completed [place] o f Polysaccharide, 00:00:00 [place] Med ical PPSV23 (PNEUMOVAX) Branch Vital Signs Vital Name Observation Time Observation Value Comments Source Systolic blood 2022-05-24 20:23:00 112 mm[Hg] [facility] Diastolic blood 2022-05-24 20:23:00 65 mm[Hg] [facility] Heart rate 2022-05-24 20:23:00 68 /min [facility] Body temperature 2022-05-24 20:23:00 35.83 [facility] Respiratory rate 2022-05-24 20:23:00 18 /[facility] O[facility] saturation in 2022-05-24 20:23:00 96 /min [facility] Arterial blood by [facility] Pulse oximetry [place] Body height 2022-05-23 19:38:00 175.3 cm [facility] Body weight 2022-05-23 19:38:00 92.987 kg [facility] BMI 2022-05-23 19:38:00 30.27 kg/m2 [facility] Procedures Procedure Date / Time Performing Clinician Source Performed XR CHEST 1 VW 2022-05-24 11:38:14 Callie Cuellar [facility] MAGNESIUM 2022-05-24 08:56:00 Alisa [facility] TROPONIN I 2022-05-24 08:56:00 Callie Cuellar [facility] BASIC METABOLIC PANEL 2022-05-24 08:56:00 Callie Cuellar [facility] (NA, K, CL, CO2, GLUCOSE, Medica l Branch BUN, CREATININE, CA) CBC WITH DIFF 2022-05-24 08:56:00 Callie Cuellar [facility] TROPONIN I 2022-05-24 03:51:00 Callie Cuellar [facility] XR KUB 2022-05-23 22:25:58 Callie Cuellar [facility] URINALYSIS 2022-05-23 22:15:00 Gertrude Black [facility] CREATININE, URINE RANDOM 2022-05-23 22:15:00 Callie Cuellar [facility] SODIUM, URINE RANDOM 2022-05-23 22:15:00 Callie Cuellar [facility] URINE DRUG (IMMUNOASSAY) 2022-05-23 22:15:[address] [facility] SCREEN W/O REFLEX TRANSTHORACIC ECHO (TTE) 2022-05-23 20:33:00 Callie Cuellar [facility] COVID-19 (ID NOW RAPID 2022-05-23 16:39:00 Gertrude Black Un [facility] TESTING) Medical Branch LAB ONLY COVID 2022-05-23 16:39:00 Gertrude Black [facility] INTERPRETATION [facility] TROPONIN I 2022-05-23 13:42:00 Gertrude Black [facility] COMP. METABOLIC PANEL 2022-05-23 13:42:00 Gertrude [facility] ([id number]) Medical Branch CBC WITH DIFF 2022-05-23 13:42:00 Gertrude Black [facility] HB ECG ROUTINE & RHYTHM 2022-05-23 13:12:28 [facility] EKG-12 LEAD 2022-05-23 12:44:00 Gertrude Black [facility] AUTHORIZATION FOR RELEASE 2021-11-12 06:01:00 Doctor Unassigned, [facility] [place] Medical Branch Encounters Start End Encounter Admission Attending Care Care Encounter Source Date/Time Date/Time Type Type Clinicians Facility Department ID 2022-05-16 Outpatient ERIC Ross [facility] [id number] Common 12:11:01 [facility] 2021-10-24 Outpatient Ross, STLMLC [facility] [id number] Common 13:24:10 Mahad [id number] [facility] 2021-10-24 Outpatient Ross, STLMLC [facility] [id number] Common 13:06:32 Mahad [id number] [facility] 2021-10-24 Outpatient Ross, STLMLC [facility] [id number] Common 12:40:59 Mahad [id number] [facility] 2021-10-24 Outpatient Ross, STLMLC [facility] [id number] Common 12:30:18 Mahad [id number] [facility] 2021-10-24 Outpatient Ross, STLMLC [facility] [id number] Common 12:29:04 Mahad [id number] [facility] 2021-10-24 Outpatient Ross, STLC [facility] [id number] Common 11:52:46 Mahad [id number] [facility] 2021-10-24 Outpatient Ross, STLMLC [facility] [id number] Common 11:44:17 Mahad [id number] [facility] 2021-10-24 Outpatient Ross, STLMLC [facility] [id number] Common 11:37:11 Mahad [id number] [facility] 2022-05-27 2022-05-27 Outpatient Lion CUELLAR [facility] [id number] Univers 09:10:00 09:10:00 CALLIE [id number] [facility] 2022-05-27 2022-05-27 Transition SIOBHAN Rollins [id number] Univers 00:00:00 00:00:00 of Care Simón PEREA [id number] [facility] [place] [id number] Tess dent [id number] [address] 2022-05-23 2022-05-24 Outpatient Kt ALISA [facility] [id number] Univers 07:39:00 17:43:00 CALLIE [facility] 2022-05-23 2022-05-24 Emergency Gertrude Black [facility] [id number] Univers 07:39:00 17:43:00 Callie Cuellar [id number] [facility] [id number] [facility] [phone] [place] [address] Branch 2022-05-24 2022-05-24 Outpatient Lion CUELLAR [facility] [id number] Univers 00:00:00 00:00:00 CALLIE [id number] ity [facility] 2022-05-09 2022-05-09 Outpatient Cobb_T [facility] [id number] Devoted 00:00:00 00:00:00 0811 [facility] l [facility] 2022-04-18 2022-04-18 ambulatory STLMLC ST[facility] [id number] Common 00:00:00 00:00:00 [facility] 2022-04-18 2022-04-18 ambulatory STLMLC STLMLC [id number] Common 00:00:00 00:00:00 [facility] 2022-04-12 2022-04-12 Outpatient Deshazo_T [facility] [id number] Devoted 03:30:00 03:30:00 0715 Medica l Group 2022-04-10 2022-04-10 Outpatient Deshazo_T [facility] [id number] Devoted 04:58:00 04:58:00 0713 [facility] l [facility] 2022-04-04 2022-04-04 ambulatory STLMLC STLMLC [id number] Common 00:00:00 00:00:00 [facility] 2022-04-04 2022-04-04 ambulatory STLMLC STLMLC [id number] Common 00:00:00 00:00:00 [facility] 2022-03-26 2022-03-26 ambulatory STLMLC STLMLC [id number] Common 00:00:00 00:00:00 [facility] 2022-02-14 2022-02-14 ambulatory STLMLC STLMLC [id number] Common 00:00:00 00:00:00 [facility] 2022-01-22 2022-01-22 ambulatory STLMLC STLMLC [id number] Common 00:00:00 00:00:00 [facility] 2022-01-17 2022-01-17 ambulatory STLMLC STLMLC [id number] Common 00:00:00 00:00:00 [facility] 2021-11-12 2021-11-12 Orders Doctor LOYOLA [id number] Univers 00:00:00 00:00:00 Only Unassigned, SHAI [id number] ity [facility] [id number] Lauri as [id number] [address] 2021-11-01 2021-11-01 Outpatient Lion BETTS [facility] [id number] Univers 13:30:00 13:30:00 HERNAN [id number] [facility] 2021-10-16 2021-10-16 ambulatory STLMLC STLMLC [id number] Common 00:00:00 00:00:00 [facility] 2021-10-16 2021-10-16 ambulatory STLMLC STLMLC [id number] Common 00:00:00 00:00:00 [facility] 2021-10-09 2021-10-09 Outpatient NEELA FANG [facility] [id number] Univers 14:20:00 14:20:00 NEELA ALBARADO [facility] 2021-10-09 2021-10-09 Outpatient NEELA FANG [facility] [id number] Univers 13:00:00 13:00:00 NEELA ALBARADO [id number] [facility] 2021-10-09 2021-10-09 ambulatory STLMLC STLMLC [id number] Common 00:00:00 00:00:00 [facility] 2021-10-08 2021-10-08 ambulatory STLMLC STLMLC [id number] Common 00:00:00 00:00:00 [facility] 2021-10-05 2021-10-05 ambulatory STLMLC STLMLC [id number] Common 00:00:00 00:00:00 [facility] 2021-10-02 2021-10-02 Transition SIOBHAN Rollins [id number] Univers 00:00:00 00:00:00 of Care Simón PEREA [id number] ity christina [place] [id number] Tess dent [id number] [address] 2021-10-01 2021-10-01 ambulatory STLMLC STLMLC [id number] Common 00:00:00 00:00:00 [facility] 2021-09-27 2021-09-30 Outpatient X GELY, [facility] [id number] Univers 17:38:00 15:22:00 VIKASH tony [facility] 2021-09-19 2021-09-19 Outpatient OWENS_T [facility] [id number] Devoted 01:00:00 01:00:00 1222 [facility] l [facility] 2021-08-10 2021-08-10 Outpatient OWENS_T [facility] [id number] Devoted 10:31:00 10:31:00 1112 [facility] l [facility] 2021-08-07 2021-08-07 [facility] [id number] [facility] 02:14:00 02:14:00 1109 [facility] 2021-07-17 2021-07-17 Outpatient STLMLC STLMLC [id number] Common 00:00:00 00:00:00 [facility] 2021-07-10 2021-07-10 Outpatient STLMLC STLMLC [id number] Common 00:00:00 00:00:00 [facility] 2021-07-04 2021-07-04 Outpatient STLMLC STLMLC [id number] Common 00:00:00 00:00:00 [facility] 2021-06-26 2021-06-26 Outpatient STLMLC STLMLC [id number] Common 00:00:00 00:00:00 [facility] 2021-05-29 2021-05-29 Outpatient STLMLC STLMLC [id number] Common 00:00:00 00:00:00 [facility] 2021-05-22 2021-05-22 [facility] [id number] Devoted 05:13:00 05:13:00 0824 [facility] l Group 2021-05-22 2021-05-22 Outpatient STLMLC STLMLC [id number] Common 00:00:00 00:00:00 [facility] 2021-05-04 2021-05-04 Outpatient STLMLC STLMLC [id number] Common 00:00:00 00:00:00 [facility] 2021-04-30 2021-04-30 Outpatient STLMLC STLMLC [id number] Common 00:00:00 00:00:00 [facility] 2021-04-30 2021-04-30 Outpatient STLMLC STLMLC [id number] Common 00:00:00 00:00:00 [facility] 2021-04-06 2021-04-06 Outpatient STLMLC STLMLC [id number] Common 00:00:00 00:00:00 [facility] 2021-01-29 2021-01-29 Outpatient [facility] [id number] Devoted 06:02:00 06:02:00 0503 Medica l Group 2021-01-18 2021-01-18 Outpatient [facility] [id number] Devoted 12:00:00 12:00:00 0422 Medica l Group 2020-08-14 2020-08-14 [facility] [id number] 14:12:00 15:54:[address] [facility] [id number] [place] [id number] [place] [id number] Results Test Description Test Time Test Comments Results Result Comments Source Troponin I 2022-05-24 10:17:19 Test Item Value Reference Range Interpretation Comme nts TROPONIN I (test code = 0.007 ng/mL See_Comment [Au tomated message] The 1867616964) system which ge nerated this result tra nsmitted reference range : <=0.034. The reference r cuong was not used to int erpret this result as normal/abnormal . ISIDORO (test code = ISIDORO) Reference (Normal) Range (defined by the 99th percentile reference limit): <= 0.034 ng/mL Note: Cardiac troponin begins to rise 3-4 hours after the onset of ischemia. Repeat in 4-6 hours if the sample was drawn within 3-4 hours of the onset of the symptom and found normal. Diagnosis of myocardial injury is made with acute changes in cTn concentrations with at least one serial sample above the 99th percentile upper reference limit (URL), taken together with the patient's clinical presentation. Biotin has been reported to cause a negative bias, interpret results relative to patient's use of biotin. Lab Interpretation Normal (test code = 85104-1) [facility] 10[facility]05:38 Test Item Value Reference Range Interpretation Comments MAGNESIUM (test code = 4041316534) 2.1 mg/dL 1.7-2.4 Lab Interpretation (test code = Normal 87527-0) [facility] (NA, K, CL, CO2, GLUCOSE, BUN, CREATININE, CA)2022-05-24 10:05:18 Test Item Value Reference Range Interpretation Comments NA (test code = 136 mmol/L 135-145 6285237171) K (test code = 4.9 mmol/L 3.5-5 3613482784) CL (test code = 109 mmol/L 98-108 H 2256976995) CO2 TOTAL (test code = 21 mmol/L 23-31 L 4889033360) AGAP (test code = 2-16 3700533797) BUN (test code = 27 mg/dL 7-23 H 9786927486) GLUCOSE (test code = 89 mg/dL 70-110 4003891650) CREATININE (test code = 1.62 mg/dL 0.6-1.25 H 3858380258) CALCIUM (test code = 8.5 mg/dL 8.6-10.6 L 5312454097) eGFR (test code = mL/min/1.73m2 9405401771) ISIDORO (test code = ISIDORO) Association of Glomerular Filtration Rate (GFR) and Staging of Kidney Disease* + --+ --+ ------+| GFR (mL/min/1.73 m2) ?| With Kidney Damage ?| ?Without Kidney Damage+ --------+ --------+ +| ?>90 ?| ?Stage one ?| ? Normal ?+ ---+ ---+ -------+| ?60-89 ?| ?Stage two ?| ? Decreased GFR ? + --+ --+ ------+| ?30-59 ?| ?Stage three ?| ? Stage three ? + --+ --+ ------+| ?15-29 ?| ?Stage four ? | ? Stage four ?+ ---+ ---+ -------+| ?<15 (or dialysis) ? ?| ?Stage five ? | ? Stage five ?+ ---+ ---+ -------+ *Each stage assumes the associated GFR level has been in effect for at least three months. ?Stages 1 to 5, with or without kidney disease, indicate chronic kidney disease. Notes: Determination of stages one and two (with eGFR >59mL/min/1.73 m2) requires estimation of kidney damage for at least three months as defined by structural or functional abnormalities of the kidney, manifested by either:Pathological abnormalities or Markers of kidney damage (including abnormalities in the composition of the blood or urine or abnormalities in imaging tests). Lab Interpretation Abnormal (test code = 95937-7) [facility] WITH [id number] 09:31:37 Test Item Value Reference Range Interpretation Comments WBC (test code = See_Comment [Automated 0806-2) message] The sy stem which generated this result transmitted reference range : 4.20 - 10.70 10*3/?L. The reference range was not used to interpret this result as normal/abnormal . RBC (test code = See_Comment L [Automated 336-8) message] The sy stem which generated this result transmitted reference range : 4.26 - 5.52 10*6/?L. The reference range was not used to interpret this result as normal/abnormal . HGB (test code = 11.6 g/dL 12.2-16.4 L 718-7) HCT (test code = 34.8 % 38.4-49.3 L 4544-3) MCV (test code = 92.3 fL 81.7-95.6 787-2) MCH (test code = 30.8 pg 26.1-32.7 785-6) MCHC (test code = 33.3 g/dL 31.2-35 786-4) RDW-SD (test code = 43.6 fL 38.5-51.6 78074-8) RDW-CV (test code = 13.1 % 12.1-15.4 788-0) PLT (test code = See_Comment [Automated 777-3) message] The sy stem which generated this result transmitted reference range : 150 - 328 10*3/ ?L. The reference r cuong was not used to interpret this result as normal/abnormal . MPV (test code = 9.3 fL 9.8-13 L 58154-5) NRBC/100 WBC (test See_Comment [Automat ed code = 8607615504) message] The system which generated this result transmitted reference range : 0.0 - 10.0 /100 WBCs. The refer ence range was not u sed to interpret th is result as normal/abnormal . NRBC x10^3 (test code See_Comment [Auto mated = 4875685288) message] The s ystem which generated this result transmitted reference range : 10*3/?L. The reference range was not used to interpret this result as normal/abnormal . GRAN MAT (NEUT) % 56.1 % (test code = 770-8) IMM GRAN % (test code 0.40 % = 8862287913) LYMPH % (test code = 27.1 % 736-9) MONO % (test code = 9.9 % 5905-5) EOS % (test code = 5.8 % 713-8) BASO % (test code = 0.7 % 706-2) GRAN MAT x10^3(ANC) 4.53 10*3/uL 1.99-6.95 (test code = 4653096449) IMM GRAN x10^3 (test 0.03 10*3/uL 0-0.06 code = 0627179968) LYMPH x10^3 (test code 2.19 10*3/uL 1.09-3.23 = 731-0) MONO x10^3 (test code 0.80 10*3/uL 0.36-1.02 = 742-7) EOS x10^3 (test code = 0.47 10*3/uL 0.06-0.53 711-2) BASO x10^3 (test code 0.06 10*3/uL 0.01-0.09 = 704-7) Lab Interpretation Abnormal (test code = 51201-2) [facility] [id number] 04:35:45 Test Item Value Reference Interpretation Comments Range TROPONIN I (test 0.004 ng/mL See_Comment [Automated code = 0855314059) message] The system which generated this result transmitted reference range : <=0.034. The reference range was not used to interpret this result as normal/abnormal . ISIDORO (test code = Reference (Normal) ISIDORO) Range (defined by the 99th percentile reference limit): <= 0.034 ng/mL Note: Cardiac troponin begins to rise 3-4 hours after the onset of ischemia. Repeat in 4-6 hours if the sample was drawn within 3-4 hours of the onset of the symptom and found normal. Diagnosis of myocardial injury is made with acute changes in cTn concentrations with at least one serial sample above the 99th percentile upper reference limit (URL), taken together with the patient's clinical presentation. Biotin has been reported to cause a negative bias, interpret results relative to patient's use of biotin. Lab Interpretation Normal (test code = 39125-9) [facility]22-[facility]-24 01:26:40 Test Item Value Reference Range Interpretation Comments Height (test code = in 9943434944) Weight (test code = lbs 3369463142) Systolic BP (test code = mmHg 3232299037) Diastolic BP (test code mmHg = 6517436635) Heart Rate (test code = bpm 2340024655) BSA (test code = 2.09 m2 6238379655) Ao root annulus (test 3.2 cm code = 0512291152) Ao root diam (test code 3.20 cm = 3291936251) Aortic root (test code = 3.2 cm 0731620151) LVOT diameter (test code 2.14 cm = 0315185420) LVIDD (test code = 5.00 cm 5021699547) IVS (test code = 1.31 cm 9531276129) Interventricular Septum 1.31 cm Diastolic Thickness by 2D (test code = 9024749) LVPWD (test code = 1.32 cm 4426551873) PW (test code = 1.32 cm 0.6-1.0 6305923052) EF(Teich) (test code = 61.30 % 7507344736) LVIDS (test code = 3.30 cm 3069994238) FS (test code = 33 % 8325453495) EF - 2D (test code = 61.30 % 63378897) LA size (test code = 3.6 cm 7819660390) TR Peak Mayank (test code = 261.9 cm/s 0467282729) Triscuspid Valve mmHg Regurgitation Peak Gradient (test code = 3642543029) LAV(MOD-sp4) (test code 59.10 mL = 0592695612) E wave decelartion time 0.23 s (test code = 9016000634) MV Peak E Mayank (test code 73.6 cm/s = 2489695057) MV stenosis pressure 1/2 70.2 ms time (test code = 3130492098) MV Peak A Mayank (test code 55.9 cm/s = 5545604120) E/A ratio (test code = ratio 5676906166) MV Prop V (test code = 58.20 cm/s 4559246829) MV E/e' septal (test 12.2 cm/s code = 0614623041) Tapse (test code = 2.9 cm 7079316315) LVOT stroke volume (test 103.80 cm3 code = 1421960121) LVOT peak mayank (test code 147.2 cm/s = 3763442046) LVOT mn grad (test code mmHg = 3527563254) AV LVOT peak gradient mmHg (test code = 4934936704) LVOT peak VTI (test code 28.7 cm = 5863270971) LV V1 mean (test code = 93.00 cm/s 0980013535) Aortic valve mean 119.4 cm/s velocity (test code = 0854466893) Ao peak mayank (test code = 165.6 cm/s 9512629386) Ao VTI (test code = 35.2 cm 8345743201) AV area by cont VTI 2.9 cm2 (test code = 6719927372) AV area peak mayank (test 3.2 cm2 code = 1297934474) Ao max PG (test code = 11.00 mm[Hg] 0391807012) AV peak gradient (test mmHg code = 7594876035) AV valve area (test code 2.90 cm2 = 6488769100) AV mean gradient (test mmHg code = 0468840604) Radiology Study observation (narrative) (test code = 88707-6) ISIDORO (test code = ISIDORO) Formatting of this result is different from the original. ?Left?Ventricle: Left ventricle size is normal. Mildly increased wall thickness. Normal wall motion. Normal systolic function with a visually estimated EF of 55 - 60%. There is impaired relaxation. ?Tricuspid?Valve: Trace transvalvular regurgitation. Right ventricular systolic pressure is 30-35 mmHg. ?RA pressure is 5-10 mmHg. Left VentricleLeft ventricle size is normal. Mildly increased wall thickness. Normal wall motion. Normal systolic function with a visually estimated EF of 55 - 60%. There is impaired relaxation.Right VentricleRight ventricle size is normal. Normal systolic function.Left AtriumLeft atrium size is normal.Right AtriumRight atrium size is normal.IVC/SVCRA pressure is 5-10 mmHg.Mitral ValveMitral valve structure is grossly normal. Mild mitral annular calcification. Trace transvalvular regurgitation.Tricusp id ValveTricuspid valve structure is grossly normal. Trace transvalvular regurgitation. Right ventricular systolic pressure is 30-35 mmHg. RA pressure is 5-10 mmHg.Aortic ValveAortic valve opens well. Mildly calcified cusps.Pulmonic ValveNot well visualized. Trace transvalvular regurgitation.Ascendi ng AortaAnnulus is normal in size.PericardiumNo pericardial effusion.Study DetailsStudy quality was adequate. A complete echocardiogram was performed using 2D, color flow Doppler and spectral Doppler. [facility] [id number] 14:25:35 Test Item Value Reference Interpretation Comments Range TROPONIN I (test 0.009 ng/mL See_Comment [Automated code = 0575380418) message] The system which generated this result transmitted reference range : <=0.034. The reference range was not used to interpret this result as normal/abnormal . ISIDORO (test code = Reference (Normal) ISIDORO) Range (defined by the 99th percentile reference limit): <= 0.034 ng/mL Note: Cardiac troponin begins to rise 3-4 hours after the onset of ischemia. Repeat in 4-6 hours if the sample was drawn within 3-4 hours of the onset of the symptom and found normal. Diagnosis of myocardial injury is made with acute changes in cTn concentrations with at least one serial sample above the 99th percentile upper reference limit (URL), taken together with the patient's clinical presentation. Biotin has been reported to cause a negative bias, interpret results relative to patient's use of biotin. Lab Interpretation Normal (test code = 59360-4) [facility]. METABOLIC PANEL (92520)2022-05-23 14:14:13 Test Item Value Reference Range Interpretation Comments NA (test code = 143 mmol/L 135-145 2172583466) K (test code = 5.0 mmol/L 3.5-5 3743760864) CL (test code = 111 mmol/L 98-108 H 5696783214) CO2 TOTAL (test code = 20 mmol/L 23-31 L 1104689698) AGAP (test code = 2-16 1256544063) BUN (test code = 30 mg/dL 7-23 H 1765755332) GLUCOSE (test code = 85 mg/dL 70-110 7480081892) CREATININE (test code = 2.07 mg/dL 0.6-1.25 H 3487617890) TOTAL BILI (test code = 0.6 mg/dL 0.1-1.4 9861253186) CALCIUM (test code = 9.0 mg/dL 8.6-10.6 5120949249) T PROTEIN (test code = 7.2 g/dL 6.3-8.2 5174923826) ALBUMIN (test code = 4.4 g/dL 3.5-5 5409310884) ALK PHOS (test code = 121 U/L 34-122 9103985785) ALTv (test code = 23 U/L 5-50 1742-6) AST(SGOT) (test code = 29 U/L 13-40 4916670309) eGFR (test code = mL/min/1.73m2 2337478962) ISIDORO (test code = ISIDORO) Association of Glomerular Filtration Rate (GFR) and Staging of Kidney Disease* + --+ --+ ------+| GFR (mL/min/1.73 m2) ?| With Kidney Damage ?| ?Without Kidney Damage+ --------+ --------+ +| ?>90 ?| ?Stage one ?| ? Normal ?+ ---+ ---+ -------+| ?60-89 ?| ?Stage two ?| ? Decreased GFR ? + --+ --+ ------+| ?30-59 ?| ?Stage three ?| ? Stage three ? + --+ --+ ------+| ?15-29 ?| ?Stage four ? | ? Stage four ?+ ---+ ---+ -------+| ?<15 (or dialysis) ? ?| ?Stage five ? | ? Stage five ?+ ---+ ---+ -------+ *Each stage assumes the associated GFR level has been in effect for at least three months. ?Stages 1 to 5, with or without kidney disease, indicate chronic kidney disease. Notes: Determination of stages one and two (with eGFR >59mL/min/1.73 m2) requires estimation of kidney damage for at least three months as defined by structural or functional abnormalities of the kidney, manifested by either:Pathological abnormalities or Markers of kidney damage (including abnormalities in the composition of the blood or urine or abnormalities in imaging tests). Lab Interpretation Abnormal (test code = 96907-6) [facility] WITH [id number] 14:11:10 Test Item Value Reference Range Interpretation Comments WBC (test code = See_Comment H [Automated 7546-2) message] The sy stem which generated this result transmitted reference range : 4.20 - 10.70 10*3/?L. The reference range was not used to interpret this result as normal/abnormal . RBC (test code = See_Comment [Automated 655-8) message] The sy stem which generated this result transmitted reference range : 4.26 - 5.52 10*6/?L. The reference range was not used to interpret this result as normal/abnormal . HGB (test code = 13.5 g/dL 12.2-16.4 718-7) HCT (test code = 40.3 % 38.4-49.3 4544-3) MCV (test code = 91.4 fL 81.7-95.6 787-2) MCH (test code = 30.6 pg 26.1-32.7 785-6) MCHC (test code = 33.5 g/dL 31.2-35 786-4) RDW-SD (test code = 42.9 fL 38.5-51.6 61746-2) RDW-CV (test code = 12.9 % 12.1-15.4 788-0) PLT (test code = See_Comment H [Automated 777-3) message] The sy stem which generated this result transmitted reference range : 150 - 328 10*3/ ?L. The reference r cuong was not used to interpret this result as normal/abnormal . MPV (test code = 9.0 fL 9.8-13 L 25771-8) NRBC/100 WBC (test See_Comment [Automat ed code = 6684980413) message] The system which generated this result transmitted reference range : 0.0 - 10.0 /100 WBCs. The refer ence range was not u sed to interpret th is result as normal/abnormal . NRBC x10^3 (test code See_Comment [Auto mated = 9763030373) message] The s ystem which generated this result transmitted reference range : 10*3/?L. The reference range was not used to interpret this result as normal/abnormal . GRAN MAT (NEUT) % 71.9 % (test code = 770-8) IMM GRAN % (test code 0.40 % = 3712634142) LYMPH % (test code = 16.1 % 736-9) MONO % (test code = 8.4 % 5905-5) EOS % (test code = 2.5 % 713-8) BASO % (test code = 0.7 % 706-2) GRAN MAT x10^3(ANC) 8.20 10*3/uL 1.99-6.95 H (test code = 1930955970) IMM GRAN x10^3 (test 0.05 10*3/uL 0-0.06 code = 6525586512) LYMPH x10^3 (test code 1.84 10*3/uL 1.09-3.23 = 731-0) MONO x10^3 (test code 0.96 10*3/uL 0.36-1.02 = 742-7) EOS x10^3 (test code = 0.29 10*3/uL 0.06-0.53 711-2) BASO x10^3 (test code 0.08 10*3/uL 0.01-0.09 = 704-7) Lab Interpretation Abnormal (test code = 15485-6) [facility]"
[2022-06-01 00:47] LABS: Absolute Lymphocytes (CBC) 2.3 K/uL (0.7-4.9); Hematocrit 40.6 % (39.6-49.0); Lymphocytes % 29.1 % (15.3-44.8); MCV 90.1 fL (80-100); MPV 7.2 fL (7.6-11.3); RBC Red Blood Cell Count 4.51 M/uL (4.33-5.43)
[2022-06-01 01:02] LABS: Albumin 3.7 g/dL (3.4-5.0); Bilirubin Total 0.2 mg/dL (0.2-1.0); Potassium 3.9 mmol/L (3.5-5.1); Protein, Total 8.2 g/dL (6.4-8.2)
[2022-06-01] MEDS ORDERED: ONDANSETRON 4 MG/2 ML VIAL ONE (01:36)
[2022-06-01] MEDS ORDERED: NA CHLORIDE 0.9% 1,000 ML ONE ×2 (01:36→06:34)
[2022-06-01] MEDS ORDERED: MORPHINE 4 MG/ML SYR ONE ×4 (01:36→16:16)
[2022-06-01 02:10] LABS: Urine Blood Negative (Negative); Urine Glucose Negative (Negative); Urine Protein Negative (Negative)
--- NOTE | 2022-06-01 04:05 | RAD REPORT ---
EXAM DESCRIPTION: CTAbdomen Pelvis W Contrast - 06/01/2022 1:59 am CLINICAL HISTORY: Abdominal pain. Abdominal pain, acute, nonlocalized COMPARISON: No comparisons TECHNIQUE: Biphasic CT imaging of the abdomen and pelvis was performed with 100 ml non-ionic IV cont rast. All CT scans are performed using dose optimization technique as appropriate and may include automated exposure control or mA/KV adjustment according to patient size. FINDINGS: Linear subsegmental atelectasis is present in the right lung base. The liver, spleen, pancreas, adrenal glands and kidneys are within normal limits. Small benign left r enal cyst. Mild inflammation is seen in the anterior abdominal fat medially deep to a hernia mesh. This small um bilical fluid and air collection is present measuring 19 mm. Appendectomy. Moderate stool is present throughout the. No evidence of significant lymphadenopathy. Small fat containing left inguinal hernia . Moderate lumbar degenerative changes. IMPRESSION: Mild inflammation is seen in the anterior abdominal wall fat the to midline hernia mesh. Nonspecific 19 mm air and fluid collection in the umbilical region could be an abscess. Suggest direc t clinical inspection.
--- NOTE | 2022-06-01 04:23 | ER ---
Nurse's Notes [facility] Name: Wood Jj Age: 61 yrs Sex: Male : 1960 Arrival Date: 05/31/2022 Time: 21:28 Bed 14 Private MD: Diagnosis: Infection following a procedure-umbilical abscess Presentation: 05/31 21:49 Chief complaint: Patient states: "I had a hernia repair Friday and the burning and as6 pain is so bad". Coronavirus screen: At this time, the client does not indicate any symptoms associated with coronavirus-19. Ebola Screen: No symptoms or risks identified at this time. Initial Sepsis Screen: Does the patient meet any 2 criteria? No. Patient's initial sepsis screen is negative. Does the patient have a suspected source of infection? No. Patient's initial sepsis screen is negative. Risk Assessment: Do you want to hurt yourself or someone else? Patient reports no desire to harm self or others. Onset of symptoms was May 28, 2022. 21:49 Method Of Arrival: Ambulatory as6 21:49 Acuity: LISA 3 as6 Triage Assessment: 21:53 General: Appears uncomfortable, Behavior is calm, cooperative. Pain: Complains of pain as6 in abdomen. Historical: - Allergies: 21:52 Valium; as6 21:52 PENICILLINS; as6 21:52 Xanax; as6 - Home Meds: 21:52 Plavix 75 mg Oral tab 1 tab once daily [Active]; as6 - PMHx: 21:52 Hypercholesterolemia; Hypertension; Myocardial infarction; stroke; as6 - PSHx: 21:52 Appendectomy; eye sx; Hemorrhoidectomy; Hernia sx; as6 - Immunization history:: Client reports having NOT received the Covid vaccine. - Social history:: Smoking status: Patient reports the use of cigarette tobacco products, smokes one-half pack cigarettes per day. - Family history:: not pertinent. Screenin:30 Abuse screen: Denies threats or abuse. Nutritional screening: No deficits noted. jb4 Tuberculosis screening: No symptoms or risk factors identified. Fall Risk None identified. Assessment: 23:30 General: Appears in no apparent distress. uncomfortable, Behavior is calm, cooperative, jb4 appropriate for age. Pain: Complains of pain in abdomen Pain does not radiate. Pain currently is 8 out of 10 on a pain scale. Neuro: Level of Consciousness is awake, alert, obeys commands, Oriented to person, place, time, situation. Cardiovascular: Patient's skin is warm and dry. Respiratory: Airway is patent Respiratory effort is even, unlabored, Respiratory pattern is regular, symmetrical. GI: Abdomen is round non-distended, Bowel sounds present X 4 quads. Abd is soft X 4 quads Abdomen is tender to palpation X 4 quads. Derm: Skin is pink, warm \\T\\ dry. Musculoskeletal: Circulation, motion, and sensation intact. Range of motion: intact in all extremities. 06/01 01:00 Reassessment: Patient appears in no apparent distress at this time. Patient and/or jb4 family updated on plan of care and expected duration. Pain level reassessed. Patient is alert, oriented x 3, equal unlabored respirations, skin warm/dry/pink. 02:00 Reassessment: Patient appears in no apparent distress at this time. Patient and/or jb4 family updated on plan of care and expected duration. Pain level reassessed. Patient is alert, oriented x 3, equal unlabored respirations, skin warm/dry/pink. 03:00 Reassessment: Patient appears in no apparent distress at this time. Patient and/or jb4 family updated on plan of care and expected duration. Pain level reassessed. Patient is alert, oriented x 3, equal unlabored respirations, skin warm/dry/pink. Patient states feeling better. 04:20 Reassessment: Patient appears in no apparent distress at this time. Patient and/or jb4 family updated on plan of care and expected duration. Pain level reassessed. Patient is alert, oriented x 3, equal unlabored respirations, skin warm/dry/pink. 05:38 Reassessment: Patient appears in no apparent distress at this time. Patient and/or jb4 family updated on plan of care and expected duration. Pain level reassessed. Patient is alert, oriented x 3, equal unlabored respirations, skin warm/dry/pink. Vital Signs: 05/31 21:49 BP 138 / 87; Pulse 56; Resp 18 S; Temp 98.4(O); Pulse Ox 96% on R/A; Weight 94.8 kg as6 (R); Height 5 ft. 6 in. (167.64 cm) (R); Pain 8/10; 06/01 00:00 BP 126 / 68; Pulse 51; Resp 18; Pulse Ox 99% on R/A; jb4 01:00 BP 157 / 90; Pulse 50; Resp 16; Pulse Ox 99% on R/A; jb4 02:30 BP 122 / 83; Pulse 48; Resp 16; Pulse Ox 98% on R/A; jb4 03:30 BP 129 / 81; Pulse 48; Resp 18 S; Pulse Ox 97% on R/A; jb4 04:15 BP 132 / 85; Pulse 49; Resp 17; Pulse Ox 96% ; jb4 05:00 BP 151 / 93; Pulse 50; Resp 16; Pulse Ox 96% on R/A; jb4 05/31 21:49 Body Mass Index 33.73 (94.80 kg, 167.64 cm) as6 ED Course: 05/31 21:28 Patient arrived in ED. bp1 21:52 Triage completed. as6 21:53 Arm band placed on. as6 23:23 Gurpreet Baxter MD is Attending Physician. diego 23:30 Patient has correct armband on for positive identification. Placed in gown. Bed in low jb4 position. Call light in reach. Side rails up X 1. Client placed on continuous cardiac and pulse oximetry monitoring. NIBP monitoring applied. 06/01 00:19 Lincoln Penny, RN is Primary Nurse. jb4 00:31 Initial lab(s) drawn, by de, sent to lab. Inserted saline lock: 22 gauge in left jb4 antecubital area, using aseptic technique. Blood collected. 02:02 Abdomen In Process Unspecified. EDMS 04:19 Lincoln Armstrong MD is Hospitalizing Provider. diego 05:39 No provider procedures requiring assistance completed. Patient admitted, IV remains in jb4 place. Administered Medications: 02:03 Drug: NS 0.9% 1000 ml Route: IV; Rate: 1 bolus; Site: left antecubital; 4 03:00 Follow up: Response: No adverse reaction; IV Status: Completed infusion; IV Intake: jb4 1000ml 02:03 Drug: morphine 4 mg Route: IVP; Infused Over: 4 mins; Site: left antecubital; jb4 02:30 Follow up: Response: No adverse reaction; Marked relief of symptoms jb4 02:04 Drug: Zofran (Ondansetron) 4 mg Route: IVP; Site: left antecubital; jb4 02:30 Follow up: Response: No adverse reaction; Marked relief of symptoms jb4 04:55 Drug: Flagyl (metroNIDAZOLE) 500 mg Volume: 100 ml; Route: IVPB; Rate: 200 ml/hr; jb4 Infused Over: 30 mins; Site: left antecubital; 05:25 Follow up: Response: No adverse reaction; IV Status: Completed infusion; IV Intake: jb4 100ml 05:26 Drug: levofloxacin 750 mg Volume: 150 ml; Route: IVPB; Infused Over: 90 mins; Site: jb4 left antecubital; 06:11 Follow up: Response: No adverse reaction; IV Status: Infusion continued upon admission jb4 07:50 Drug: Nicoderm CQ Patch 21 mg/24 hr 1 patches Route: Transdermal; Site: affected area; em6 Medication: 05:00 VIS not applicable for this client. jb4 Intake: 03:00 IV: 1000ml; Total: 1000ml. jb4 05:25 IV: 100ml; Total: 1100ml. jb4 Outcome: 04:22 Decision to Hospitalize by Provider. diego 05:39 Admitted to ER Hold. Please see [facility] for further documentation. 4 05:39 Condition: stable 05:39 Discharge instructions given to patient, Instructed on the need for admit, Demonstrated understanding of instructions. 17:20 Patient left the ED. eb Signatures: Dispatcher [employer] Gurpreet Mederos MD MD cha Bryson, James, RN RN jb4 Susan Buitrago Brittany bp1 Slawson, Ashby, RN RN as6 Leydi Tipton RN RN em6
--- NOTE | 2022-06-01 04:23 | EDPHYS ---
Physician Documentation [facility] Name: Wood Jj Age: 61 yrs Sex: Male : 1960 Arrival Date: 05/31/2022 Time: 21:28 Bed 14 Private MD: PRAVEEN Physician Gurpreet Baxter HPI: 06/01 01:21 This 61 yrs old Male presents to ER via Ambulatory with complaints of Post diego Surgical Pain. 01:21 The patient presents with abdominal pain in the periumbilical area. abdominal diego distention in the upper abdomen, in the lower abdomen. Onset: The symptoms/episode began/occurred gradually, 4 day(s) ago. The symptoms do not radiate. Associated signs and symptoms: Pertinent positives:. The symptoms are described as burning, steady. Modifying factors: The symptoms are alleviated by nothing, the symptoms are aggravated by movement, touching the area. Severity of pain: At its worst the pain was moderate in the emergency department the pain is unchanged. The patient has not experienced similar symptoms in the past. Historical: - Allergies: 05/31 21:52 Valium; as6 21:52 PENICILLINS; as6 21:52 Xanax; as6 - Home Meds: 21:52 Plavix 75 mg Oral tab 1 tab once daily [Active]; as6 - PMHx: 21:52 Hypercholesterolemia; Hypertension; Myocardial infarction; stroke; as6 - PSHx: 21:52 Appendectomy; eye sx; Hemorrhoidectomy; Hernia sx; as6 - Immunization history:: Client reports having NOT received the Covid vaccine. - Social history:: Smoking status: Patient reports the use of cigarette tobacco products, smokes one-half pack cigarettes per day. - Family history:: not pertinent. ROS: 06/01 01:21 Constitutional: Negative for fever, chills, and weight loss, Eyes: Negative for injury, diego pain, redness, and discharge, ENT: Negative for injury, pain, and discharge, Neck: Negative for injury, pain, and swelling, Cardiovascular: Negative for chest pain, palpitations, and edema, Respiratory: Negative for shortness of breath, cough, wheezing, and pleuritic chest pain, Back: Negative for injury and pain, : Negative for injury, bleeding, discharge, and swelling, MS/Extremity: Negative for injury and deformity, Skin: Negative for injury, rash, and discoloration, Neuro: Negative for headache, weakness, numbness, tingling, and seizure, Psych: Negative for depression, anxiety, suicide ideation, homicidal ideation, and hallucinations, Allergy/Immunology: Negative for hives, rash, and allergies, Endocrine: Negative for neck swelling, polydipsia, polyuria, polyphagia, and marked weight changes, Hematologic/Lymphatic: Negative for swollen nodes, abnormal bleeding, and unusual bruising. Abdomen/GI: Positive for abdominal pain, of the umbilical area. Exam: :21 Constitutional: This is a well developed, well nourished patient who is awake, alert, diego and in no acute distress. Head/Face: Normocephalic, atraumatic. Eyes: Pupils equal round and reactive to light, extra-ocular motions intact. Lids and lashes normal. Conjunctiva and sclera are non-icteric and not injected. Cornea within normal limits. Periorbital areas with no swelling, redness, or edema. ENT: Nares patent. No nasal discharge, no septal abnormalities noted. Tympanic membranes are normal and external auditory canals are clear. Oropharynx with no redness, swelling, or masses, exudates, or evidence of obstruction, uvula midline. Mucous membranes moist. Neck: Trachea midline, no thyromegaly or masses palpated, and no cervical lymphadenopathy. Supple, full range of motion without nuchal rigidity, or vertebral point tenderness. No Meningismus. Chest/axilla: Normal chest wall appearance and motion. Nontender with no deformity. No lesions are appreciated. Cardiovascular: Regular rate and rhythm with a normal S1 and S2. No gallops, murmurs, or rubs. Normal PMI, no JVD. No pulse deficits. Respiratory: Lungs have equal breath sounds bilaterally, clear to auscultation and percussion. No rales, rhonchi or wheezes noted. No increased work of breathing, no retractions or nasal flaring. Back: No spinal tenderness. No costovertebral tenderness. Full range of motion. Male : Normal genitalia with no discharge or lesions. Skin: Warm, dry with normal turgor. Normal color with no rashes, no lesions, and no evidence of cellulitis. MS/ Extremity: Pulses equal, no cyanosis. Neurovascular intact. Full, normal range of motion. Neuro: Awake and alert, GCS 15, oriented to person, place, time, and situation. Cranial nerves II-XII grossly intact. Motor strength 5/5 in all extremities. Sensory grossly intact. Cerebellar exam normal. Normal gait. Psych: Awake, alert, with orientation to person, place and time. Behavior, mood, and affect are within normal limits. 01:21 Abdomen/GI: Inspection: abdomen appears normal, Bowel sounds: normal, Palpation: mild abdominal tenderness, moderate abdominal tenderness, in the umbilical area, Liver: no appreciated palpable abnormalities, Hernia: not appreciated. Vital Signs: 05/31 21:49 BP 138 / 87; Pulse 56; Resp 18 S; Temp 98.4(O); Pulse Ox 96% on R/A; Weight 94.8 kg as6 (R); Height 5 ft. 6 in. (167.64 cm) (R); Pain 8/10; 06/01 00:00 BP 126 / 68; Pulse 51; Resp 18; Pulse Ox 99% on R/A; jb4 01:00 BP 157 / 90; Pulse 50; Resp 16; Pulse Ox 99% on R/A; jb4 02:30 BP 122 / 83; Pulse 48; Resp 16; Pulse Ox 98% on R/A; jb4 03:30 BP 129 / 81; Pulse 48; Resp 18 S; Pulse Ox 97% on R/A; jb4 04:15 BP 132 / 85; Pulse 49; Resp 17; Pulse Ox 96% ; jb4 05:00 BP 151 / 93; Pulse 50; Resp 16; Pulse Ox 96% on R/A; jb4 05/31 21:49 Body Mass Index 33.73 (94.80 kg, 167.64 cm) as6 MDM: 05/31 23:24 Patient medically screened. diego 06/01 01:23 Differential diagnosis: bowel obstruction, cholecystitis, Cholelithiasis, diego diverticulitis, gastritis, GI Bleed, Herpes Zoster, Mesenteric ischemia or infarction, non-specific abd pain, pancreatitis, Peptic Ulcer Disease, Peritonitis, Pyelonephritis, Ureterolithiasis, urinary tract infection. Data reviewed: vital signs, nurses notes, lab test result(s), EKG, radiologic studies, CT scan. Data interpreted: analysis or research safety inspector: rate is 51 beats/min, rhythm is regular, Pulse oximetry: on room air is 99 %. Test interpretation: by ED physician or midlevel provider:. Counseling: I had a detailed discussion with the patient and/or guardian regarding: the historical points, exam findings, and any diagnostic results supporting the discharge/admit diagnosis, lab results, radiology results. 06/01 00:19 Order name: CBC with Diff; Complete Time: 00:56 jb4 06/01 00:19 Order name: CMP; Complete Time: 01:21 jb4 06/01 00:19 Order name: Lipase; Complete Time: 01:21 jb4 06/01 01:02 Order name: Lactate; Complete Time: 02:09 diego 06/01 02:10 Order name: Urine Dipstick-Ancillary; Complete Time: 02:38 EDMS 06/01 04:23 Order name: SARS RAPID; Complete Time: 06:47 as6 06/01 01:02 Order name: CT Abd/Pelvis - IV Contrast Only [facility] 06/01 01:06 Order name: Abdomen ; Complete Time: 04:14 EDDE 06/01 00:19 Order name: IV Saline Lock; Complete Time: 00:46 jb 06/01 00:19 Order name: Labs collected and sent; Complete Time: 00:46 jb 06/01 01:02 Order name: Urine Dipstick-Ancillary (obtain specimen); Complete Time: 02:17 [facility] Administered Medications: 02:03 Drug: NS 0.9% 1000 ml Route: IV; Rate: 1 bolus; Site: left antecubital; jb4 03:00 Follow up: Response: No adverse reaction; IV Status: Completed infusion; IV Intake: jb4 1000ml 02:03 Drug: morphine 4 mg Route: IVP; Infused Over: 4 mins; Site: left antecubital; jb4 02:30 Follow up: Response: No adverse reaction; Marked relief of symptoms jb4 02:04 Drug: Zofran (Ondansetron) 4 mg Route: IVP; Site: left antecubital; jb4 02:30 Follow up: Response: No adverse reaction; Marked relief of symptoms jb4 04:55 Drug: Flagyl (metroNIDAZOLE) 500 mg Volume: 100 ml; Route: IVPB; Rate: 200 ml/hr; jb4 Infused Over: 30 mins; Site: left antecubital; 05:25 Follow up: Response: No adverse reaction; IV Status: Completed infusion; IV Intake: jb4 100ml 05:26 Drug: levofloxacin 750 mg Volume: 150 ml; Route: IVPB; Infused Over: 90 mins; Site: jb4 left antecubital; 06:11 Follow up: Response: No adverse reaction; IV Status: Infusion continued upon admission jb4 07:50 Drug: Nicoderm CQ Patch 21 mg/24 hr 1 patches Route: Transdermal; Site: affected area; em6 Disposition Summary: 06/01/22 04:22 Hospitalization Ordered Hospitalization Status: Inpatient Admission diego Provider: Lincoln Armstrong cha Condition: Stable diego Problem: new diego Symptoms: have improved diego Bed/Room Type: Standard diego Location: Telemetry/MedSurg (Inpatient)(06/01/22 16:11) eb Room Assignment: 412(06/01/22 16:11) eb Diagnosis - Infection following a procedure - umbilical abscess diego Forms: - Medication Reconciliation Form diego - SBAR form diego Signatures: Dispatcher [employer] EDGurpreet Sanchez MD MD cha Garcia, Cindy, RN RN Lincoln Hameed RN RN jb4 Susan Buitrago Ashby, RN RN as6 Leydi Tipton RN RN em6 Corrections: (The following items were deleted from the chart) 06:19 04:22 Telemetry/MedSurg (observation) diego cg 06:19 04:22 diego cg 16:11 06:19 [facility] ER HOLD cg eb 16:11 06:19 ERHOLD- cg eb
[2022-06-01] MEDS ORDERED: Levofloxacin 750mg IV 750 MG/150 ML BAG IV ONE (04:40)
[2022-06-01] MEDS ORDERED: METRONIDAZOLE 500mg IVPB 500 MG/100 ML BAG IV ONE ×2 (04:40→12:01)
[2022-06-01 04:59] LABS: SARS-CoV-2 Antigen Rapid Res Negative (Negative)
[2022-06-01] MEDS ORDERED: ACETAMINOPHEN 325 MG TABLET PO PRN (05:44)
[2022-06-01] MEDS ORDERED: ONDANSETRON 4 MG/2 ML VIAL IV PRN (05:44)
[2022-06-01 05:53] VITALS: BMI 33.7
[2022-06-01] MEDS: MORPHINE 4 MG/ML SYR IV PRN ×3 (06:28→20:34)
[2022-06-01] MEDS: NA CHLORIDE 0.9% 1,000 ML IV SCH ×2 (06:54→17:36)
[2022-06-01] MEDS ORDERED: NICOTINE 21 MG/PAT TD ONE (07:38)
[2022-06-01] MEDS: FAMOTIDINE 20 MG/2 ML VIAL IV SCH ×2 (09:00→20:34)
[2022-06-01] MEDS ORDERED: FAMOTIDINE 20 MG/2 ML VIAL IV ONE (09:09)
[2022-06-01] MEDS ORDERED: NA CHLORIDE 0.9% 0 ML ONE (12:00)
[2022-06-01] MEDS: METRONIDAZOLE 500mg IVPB 500 MG/100 ML BAG IV SCH ×3 (12:00→23:51)
--- NOTE | 2022-06-01 15:14 | P.CNS ---
Date of Consult: 06/01/22 PC: I was asked to see this 61-year-old male in regards to some erythema around his umbilicus. HPC: This patient recently had undergone a laparoscopically assisted umbilical hernia repair with mesh. He has been doing quite well at home. He noted that the area around his abdomen was getting somewhat red, slightly swollen, and there was some redness along his incision line. His relative encouraged him to come to the emergency room for evaluation and treatment. PSHx: Umbilical hernia repair PMHx: On Plavix Social Hx: Allergic to benzo diazepam's ketorolac Sys R: No cough, wheeze or shortness of breath. No chest pain or palpitations. Has not been running fevers at home. O/E: Awake alert vital signs are stable HEENT: Negative Chest: Chest movement equal bilaterally Abd: The patient's abdomen is soft, minimal tenderness around the umbilicus. In that area there is a linear incision that has a subcuticular closure. There is still some redundant skin in that area. This area is soft and while there is the expected fluid underneath it, is not tense, under pressure, or have any heat. There is an expected amount of hematoma changes in the radius around the umbilicus. No purulent drainage noted. His other incisions appear clean. [place]: Intact Data: White cell count is normal, the discussion of possible abscess is based on the seroma that is seen at the umbilicus. It is external to the peritoneal cavity. There is some small air which also was not unexpected with the redundant skin and type of closure that was done. Impression: Inflamed periumbilical fluid infection Plan: The patient was admitted last night, placed on antibiotics. I have discussed this with the surgeon of record. We will keep him 1 more day, reevaluate the wound, and if the same or as expected improved, will discharge him at that time. He will then follow-up with his surgeon for whom I am cross covering. I have discussed this with the patient, he is content with this plan.
[2022-06-02] MEDS: MORPHINE 4 MG/ML SYR IV PRN ×6 (00:44→21:41)
[2022-06-02] MEDS: Levofloxacin 750mg IV 750 MG/150 ML BAG IV SCH (04:10)
[2022-06-02] MEDS: NA CHLORIDE 0.9% 1,000 ML IV SCH ×2 (04:14→12:35)
[2022-06-02 04:55] LABS: Absolute Lymphocytes (CBC) 1.6 K/uL (0.7-4.9); Hematocrit 40.4 % (39.6-49.0); Lymphocytes % 22.1 % (15.3-44.8); MCV 90.8 fL (80-100); MPV 7.5 fL (7.6-11.3); RBC Red Blood Cell Count 4.45 M/uL (4.33-5.43)
[2022-06-02] MEDS: METRONIDAZOLE 500mg IVPB 500 MG/100 ML BAG IV SCH ×3 (05:07→17:42)
[2022-06-02 05:08] LABS: Potassium 3.8 mmol/L (3.5-5.1)
[2022-06-02] MEDS: FAMOTIDINE 20 MG/2 ML VIAL IV SCH ×2 (08:34→21:41)
--- NOTE | 2022-06-02 16:30 | P.PN ---
Date of Service: 06/02/22 S: Patient states he still has some periumbilical pain. However it appears to be more muscular. Only occurs when he tries to roll over. States he is he still needs some pain medicine. O: Vital signs remained stable, patient is afebrile. On inspection of the periumbilical area, there is still some mild erythema, less than yesterday. There is no drainage. No real fluctuance noted. A: This periumbilical seroma with surrounding erythema appears to be improving. P: I will keep her 1 more day here in the hospital. He is on IV antibiotics. After evaluation tomorrow we will most likely send home with follow-up with his primary surgeon.
[2022-06-03] MEDS: METRONIDAZOLE 500mg IVPB 500 MG/100 ML BAG IV SCH ×3 (00:46→11:44)
[2022-06-03] MEDS: MORPHINE 4 MG/ML SYR IV PRN ×4 (01:39→14:44)
[2022-06-03] MEDS: Levofloxacin 750mg IV 750 MG/150 ML BAG IV SCH (05:00)
[2022-06-03] MEDS: NA CHLORIDE 0.9% 1,000 ML IV SCH ×2 (05:00→07:44)
[2022-06-03] MEDS: FAMOTIDINE 20 MG/2 ML VIAL IV SCH (08:50)
[2022-06-03 09:03] VITALS: O2SAT 97
[2022-06-03 13:16] VITALS: BP 154/90; TEMP 97.2
--- NOTE | 2022-06-03 16:15 | P.PN ---
Date of Service: 06/03/22 S: Patient feels good today, minimal pain, anxious to go home. O: Vital signs are stable, remains afebrile. Minimal redness around incisional site today. A: Surgically stable for discharge P: I will discharge the patient home today, he has a follow-up appointment with his surgeon on Friday. He will be discharged on some pain medicine [hydrocodone 7.5/325] and some Bactrim DS. No drainage came from the wound, has no cultures were taken. He understands and is happy with this plan. Should he have any questions or problems, he knows to return to the emergency room contact me or his primary care surgeon.
== END 2022-06-03 15:52 | disposition home or self-care (01) | DRG 921 ==
LOC: ER 21:24 → ERHOLD 06-01 04:29 → 4TH 06-01 16:49 → OBSVTOIN 06-02 16:56
PROVIDERS: ADMIT Surgery; ATTEND Surgery
DX: L76.34 Postprocedural seroma of skin and subcutaneous tissue following other procedure (principal); Z20.822 Contact with and (suspected) exposure to COVID-19
CPT/HCPCS: 36415; 74177; 80048; 80053; 81003; 83605; 83690; 85025; 87811; 96361; 96365; 96367; 96375; 99285; G0378; J2405; J7030; Q9967

== ENCOUNTER 2022-06-19 13:32 | Emergency (ER) | payer MEDICARE ==
--- OUTSIDE RECORDS SUMMARY | 2022-06-19 13:37 | XMS REPORT | Continuity of Care Document ---
:1960 Author Organization [facility] t Address [address] [place] [address] Care Team Providers Name Role Phone Mahad Ross Primary Care Physician Mahad Ross Attending Clinician Unavailable CALLIE CUELLAR Attending Clinician Unavailable Simón Rollins RN Attending Clinician Unavailable Gertrude Black DO Attending Clinician Callie Cuellar DO Attending Clinician Cobb_T Attending Clinician Unavailable Deshazo_T Attending Clinician Unavailable Doctor Unassigned, [place] Attending Clinician Unavailable HERNAN BETTS Attending Clinician Unavailable NEELA ALBARADO Attending Clinician Unavailable NEELA ALBARADO Attending Clinician Unavailable VIKASH HONG Attending Clinician Unavailable OWENS_T Attending Clinician Unavailable Gretta Ruiz Attending Clinician ADRI Attending Clinician Unavailable Love Campbell Attending Clinician CALLIE CUELLAR Admitting Clinician Unavailable Callie Cuellar DO Admitting Clinician Cobb_T Admitting Clinician Unavailable Deshazo_T Admitting Clinician Unavailable OVILLE, VIKASH Admitting Clinician Unavailable OWENS_T Admitting Clinician Unavailable CURRY_S Admitting Clinician Unavailable Payers Payer Name Policy Type Policy Number Effective Date Expiration Date Yajaira clarke [facility] [id number] 2021 (MEDICARE 00:00:00 REPLACEMENT HMO) Problems Condition Condition Condition Status Onset Resolution Last Treating Co mments Source Name Details Category Date Date Treatment Clinician Date Chest Chest Disease Active Univers pain, pain, 8-25 ity of unspecif[place] d type 00 [facility] Primary Primary Disease Active Univers hypertensi hypertensi 8-25 it y of on on 00:00: [place] [facility] Other Other Disease Active Univers hyperlipid hyperlipid 8-25 it y of emia emia 00:00: [place] [facility] Drug abuse Drug abuse Disease Active U nivers 8-25 ity of 00:00: [place] [facility] Nonobstruc Nonobstruc Disease Active U nivers tive tive 8-25 ity of atheroscle atheroscle [place] of rosis of 00 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 CAM[place] (acute [place] (acute Disease Active 2020-09 U nivers kidney kidney 2-30 ity of injury) injury) 00:00: [place] [facility] Esophageal Esophageal Disease Active U nivers spasm spasm 4-30 ity of 00:00: [place] 00 Medical Branch A-fib A-fib Disease Active Univers 4-24 ity of 00:00: [place] [facility] Atrial Atrial Disease Active Univers fibrillati fibrillati 4-23 it y of on with on with 00:00: [place] RVR RVR 00 Medical Branch Shortness Shortness Disease Active Uni vers of breath of breath 4-23 ity of 00:00: [place] [facility] NSTEMI NSTEMI Disease Active Univers (non-ST (non-ST 4-23 ity of elevated elevated 00:00: [place] myocardial myocardial 00 Me dical infarction infarction Br anch ) ) Tobacco Tobacco Disease Active Univers abuse abuse 4-23 ity of 00:00: [place] [facility] Family Family Disease Active Univers history of history of 4-23 it y of early CAD early CAD 00:[place] Inguinal Inguinal Disease Active 2016-09 Unive rs hernia hernia 2-04 ity of 00:00: [place] [facility] Obesity Obesity Disease Active 2016-09 Univers (BMI (BMI 2-04 ity of 30-39.9) 30-39.9) 00:00: [place] [facility] Status Status Disease Active Univers epilepticu epilepticu 01-22 it y of s s 00:00: Medical Branch Seizure Seizure Disease Active Univers 4-26 ity of 00:00: [place] [facility] Allergies, Adverse Reactions, Alerts Allergy Allergy Status Severity Reaction(s) Onset Inactive Treating Comm ents Source Name Type Date Date Clinician LORAZEPA DRUG Active Anaphylaxis Uni vers M INGREDI 8-25 ity of 00:00: [place] [facility] Lorazepa Propensi Active Anaphylaxis U nivers m ty to 8-25 ity of adverse 00:00: [place] reaction Medical s Branch BENADRYL DRUG Active High Swelling 2018-09 Univer s ALLERGY 1-14 ity of DECONGES 00:00: [place] TANT 00 Medical Branch Benadryl Propensi Active Swelling 2018- Univ ers Allergy ty to 1-14 ity of Deconges adverse 00:00: [place] tant reaction Medical s Branch DIAZEPAM DRUG Active High Anaphylaxis 2016- Uni vers INGREDI 2-04 ity of 00:00: [place] [facility] Diazepam Propensi Active Anaphylaxis 2016- Patient Univers ty to 2-04 states ity of adverse 00:00: it'll [place] reaction 00 stop his Medica l s to heart Branch drug within seconds of taking it. Penicill Propensi Active Anaphylaxis 2016-0 U nivers ins ty to 8-15 ity of adverse 00:00: [place] reaction 00 Medical s Branch PENICILL Drug Active Anaphylaxis Uni vers INS Class 8-15 ity of 00:00: [place] 00 Medical Branch Penicill Propensi Active Anaphylaxis 2016-0 U nivers ins ty to 8-15 ity of adverse 00:00: [place] reaction 00 Medical s Branch BEE DRUG Active Anaphylaxis Unive rs STING / INGREDI 4-26 ity of VENOM 00:00: [place] [facility] Bee Propensi Active Anaphylaxis Uni [...] of tobacco Cigarette Smoker University of use [facility] Exposure to 2022-05-13 2022-05-23 Not sure University of SARS-CoV-2 (event) 00:00:00 14:14:00 [facility] Alcohol intake 2022-05-23 2022-05-23 Current University of 00:00:00 00:00:00 non-drinker of [facility] alcohol [place] (finding) Cigarette 2021-09-27 2021-09-27 University of pack-years 00:00:00 00:00:00 [facility] Tobacco use and 2021-09-27 2021-09-27 Smokeless Universit y of exposure 00:00:00 00:00:00 tobacco non-user [facility] Education 2021-09-27 2021-09-27 8 University of 00:00:00 00:00:00 [facility] Cigarettes smoked 2021-09-27 2021-09-27 Univers ity of current (pack per 00:00:00 00:00:00 ) - Reported Branch Sex [birth year] At [birth year] Universit y of 00:00:00 00:00:00 [facility] Smoking Status Start Date Stop Date Source Smokes tobacco daily 2021-09-27 00:00:00 Univers ity of [facility] Medications Ordered Filled Start Stop Current Ordering Indication Dosage Frequency Signature Comments Components Source Medication Medication Date Date Medication? Clinician (SIG) Name Name carvediloL 2021- Yes [id number] 3.125mg Take 1 Univers 3.125 mg 05-25 tablet by ity o f tablet 00:00: 04:59 mouth in [place] 00 :00 the Medical morning Branch and 1 tablet in the evening. Take with meals. Do all this for 30 days. carvediloL 2021- Yes [id number] 3.125mg Take 1 Univers 3.125 mg 05-25 tablet by ity o f tablet 00:00: 04:59 mouth in [place] 00 :00 the Medical morning Branch and 1 tablet in the evening. Take with meals. Do all this for 30 days. nicotine 21 Yes 1{patch Apply 1 Univers mg/24 hr 05-24 } Patch to ity of patch 17:45: area(s) [place] 28 every 24 Medical (twenty-fo Branch ur) hours. Patient reports he smokes 13 cigarettes per day. nicotine 21 Yes 1{patch Apply 1 Univers mg/24 hr 05-24 } Patch to ity of patch 17:45: area(s) [place] 28 every 24 Medical (twenty-fo Branch ur) hours. Patient reports he smokes 13 cigarettes per day. hydrOXYzine Yes 10mg 10 mg, Univ ers (ATARAX) 05-24 Oral, ity of tablet 10 15:14: Q6HPRN, [place] mg 53 Starting Medical on Fri Branch 05/24/22 at 1014, Until Discontinu ed, Routine, Anxiety, Itching polyethylen Yes 17g 17 g, Unive rs e glycol 05-24 Oral, ity of 3350 powder 14:00: DAILY, [place] 17 g 00 First dose Medical on Fri Branch 05/24/22 at 0900, Until Discontinu ed, Routine pantoprazol Yes 40mg 40 mg, Univ ers e - Oral, ity of (PROTONIX) 14:00: DAILY, [place] EC tablet 00 First dose Medi usman 40 mg on Fri Branch 05/24/22 at 0900, Until Discontinu ed, Routine lisinopriL Yes 2.5mg 2.5 mg, Uni vers (PRINIVIL,Z 05-24 Oral, ity of ESTRIL) 14:00: DAILY, [place] tablet 2.5 00 First dose Med ical mg on Fri Branch 05/24/22 at 0900, Until Discontinu ed, Routine isosorbide Yes 30mg 30 mg, Unive rs mononitrate 05-24 Oral, ity of (IMDUR) 24 14:00: DAILY, [place] hr tablet 00 First dose Medi usman 30 mg on Fri Branch 05/24/22 at 0900, Until Discontinu ed, Routine atorvastati 0 Yes 80mg 80 mg, Univ ers n [...] mg 00 First dose Medic al on Fri Branch 05/24/22 at 0800, Until Discontinu ed, Routine NaCl 0.9% 0 Yes 1000mL at 75 Unive rs (NS) IV 8 mL/hr, IV ity of infusion 01:30: Infusion, [...] Routine enoxaparin 0 Yes 1mg/kg 90 mg Univ ers (LOVENOX) 05-24 (rounded ity of injection 01:00: [place] 93 mg [place] 90 mg 00 = 1 mg/kg Medical ?93 kg), Branch [facility], Q12H, First dose (after last modificati on) on Fri05/23/22 at 2000, Until Discontinu ed, Routine nicotine 0 Yes 1{patch 1 Patch, Un lee (NICODERM) 05-24 } Topical, ity o f 21 mg/24 hr 00:45: Administer [place] patch 1 00 over 24 Medical Patch Hours, Branch Q24H, First dose on Fri05/23/22 at 1945, Until Discontinu ed, Routine hydrOXYzine 2021- Yes [id number] 10mg Take 1 Univers 10 mg 05-24 tablet by ity of tablet 00:00: 04:59 mouth [place] 00 :00 every 6 Medical (six) Branch hours as needed for Anxiety for up to 30 days. hydrOXYzine 2021- Yes [id number] 10mg Take 1 Univers 10 mg 05-24 tablet by ity of tablet 00:00: 04:59 mouth [place] 00 :00 every 6 Medical (six) Branch hours as needed for Anxiety for up to 30 days. enoxaparin 2021- No 40mg 40 mg, Univ ers (LOVENOX) 05-23 Subcutaneo ity of injection 22:00: 23:48 us, DAILY, [place] 40 mg 00 :16 First dose Medical on [facility] Branch 05/23/22 at 1700, Until Discontinu ed, Routine ondansetron Yes 4mg 4 mg, Slow Univers (ZOFRAN 05-23 IV Push, ity of (PF)) 19:56: Q6HPRN, [place] injection 4 03 Starting Medi usman mg on [facility] Branch 05/23/22 at 1456, Until Discontinu ed, Routine, Nausea and Vomiting (N/V) HYDROcodone 2021- Yes 1{tbl} 1 tablet, Univers -acetaminop 05-23 Oral, ity of hen (NORCO 19:55: 19:54 Q6HPRN, [place] as 5) 5-325 mg 52 :52 Starting Medi usman tablet 1 on [facility] Branch tablet 05/23/22 at 1455, Until 05/25/22 at 1454, Routine, Pain (scale 4-6) acetaminoph Yes 650mg 650 mg, Un lee en 05-23 Oral, ity of (TYLENOL) 19:55: Q6HPRN, [place] tablet 650 49 Starting Medic al mg on [place] Branch 05/23/22 at 1455, Until Discontinu ed, Routine, Pain (scale 1-3) NaCl 0.9% 2021- No 1000mL at 999 Uni vers (NS) bolus 8-25 08-25 mL/hr, ity of infusion 18:45: 22:25 1,000 mL, Lauri as 1,000 mL 00 :22 IV Medical Infusion, Branch ONCE, 1 dose, On Nohe[place] 05/23/22 at 1345, VANNA NaCl 0.9% 2021- No 1000mL at 999 Uni vers (NS) bolus 05-23-25 mL/hr, ity of infusion 15:15: 18:21 1,000 [...] (two) Medical times Branch daily. zolpidem 5 202- No 5mg Take 1 Univ ers mg tablet 4-30 - tablet by ity of 00:00: 00:00 mouth at [place] 00 :00 bedtime as Medical needed for Branch Insomnia. sulindac Yes 200mg Take 1 Univer s (CLINORIL) 8-15 tablet by ity of 200 mg 00:00: mouth 2 [place] tablet 00 (two) Medical times Branch daily. sulindac Yes 200mg Take 1 Univer s (CLINORIL) 8-15 tablet by ity of 200 mg 00:00: mouth 2 [place] tablet 00 (two) Medical times Branch daily. sulindac 2015-2021- No 200mg Take 1 Unive rs (CLINORIL) 8-15 08-26 tablet by ity of 200 mg 00:00: 00:00 mouth 2 [place] tablet 00 :00 (two) Medical times Branch daily. Immunizations Ordered Filled Immunization Date Status Comments [facility] e Immunization Name Name Pneumococcal 2018-01-26 Completed [place] o f Polysaccharide, 00:00:00 [place] Med ical PPSV23 (PNEUMOVAX) Branch Pneumococcal 2018-01-26 Completed [place] o f Polysaccharide, 00:00:00 [place] Med ical PPSV23 (PNEUMOVAX) Branch Pneumococcal 2018-01-26 Completed [place] o f Polysaccharide, 00:00:00 [place] Med ical PPSV23 (PNEUMOVAX) Branch Pneumococcal 2018-01-26 Completed [place] o f Polysaccharide, 00:00:00 [place] Med ical PPSV23 (PNEUMOVAX) Branch Vital Signs Vital Name Observation Time Observation Value Comments Source Systolic blood 2022-05-24 20:23:00 112 mm[Hg] [facility] [place] Diastolic blood 2022-05-24 20:23:00 65 mm[Hg] [facility] Heart rate 2022-05-24 20:23:00 68 /min [facility] Body temperature 2022-05-24 20:23:00 35.83 Shameka [facility] Respiratory rate 2022-05-24 20:23:00 18 /min [facility] Oxygen saturation in 2022-05-24 20:23:00 96 /min [facility] Arterial blood by [facility] Pulse oximetry [place] Body height 2022-05-23 19:38:00 175.3 cm [facility] Body weight 2022-05-23 19:38:00 92.987 kg [facility] BMI 2022-05-23 19:38:00 30.27 kg/m2 [facility] Procedures Procedure Date / Time Performing Clinician Source Performed XR CHEST 1 VW 2022-05-24 11:38:14 Callie Cuellar [facility] MAGNESIUM 2022-05-24 08:56:00 Callie Cuellar [facility] TROPONIN I 2022-05-24 08:56:00 Callie Cuellar [facility] BASIC METABOLIC PANEL 2022-05-24 08:56:00 Callie Cuellar [facility] (NA, K, CL, CO2, GLUCOSE, Medica l Branch BUN, CREATININE, CA) CBC WITH DIFF 2022-05-24 08:56:00 Alisa [facility] TROPONIN I 2022-05-24 03:51:00 Alisa [facility] XR KUB 2022-05-23 22:25:58 Callie Cuellar [facility] URINALYSIS 2022-05-23 22:15:00 Gertrude Black [facility] CREATININE, URINE RANDOM 2022-05-23 22:15:00 Callie Cuellar [facility] SODIUM, URINE RANDOM 2022-05-23 22:15:00 Callie Cuellar [facility] URINE DRUG (IMMUNOASSAY) 2022-05-23 22:15:00 Gertrude Black [facility] SCREEN W/O REFLEX TRANSTHORACIC ECHO (TTE) 2022-05-23 20:33:00 Callie Cuellar [facility] COVID-19 (ID NOW RAPID 2022-05-23 16:39:00 Gertrude Black Un [facility] TESTING) Medical Branch LAB ONLY COVID 2022-05-23 16:39:00 Gertrude Black [facility] INTERPRETATION [facility] TROPONIN I 2022-05-23 13:42:00 Gertrude Black [facility] COMP. METABOLIC PANEL 2022-05-23 13:42:00 Gertrude Black [facility] ([id number]) Medical [place] CBC WITH DIFF 2022-05-23 13:42:00 Gertrude Black [facility] HB ECG ROUTINE & RHYTHM 2022-05-23 13:12:28 [facility] EKG-12 LEAD 2022-05-23 12:44:00 Gertrude Black [facility] AUTHORIZATION FOR RELEASE 2021-11-12 06:01:00 Doctor Unassigned, [facility] [place] Medical Branch Encounters Start End Encounter Admission Attending Care Care Encounter Source Date/Time Date/Time Type Type Clinicians Facility Department ID 2022-05-16 Outpatient Cody [facility] [id number] Common 12:11:01 [facility] [address] [facility] 2021-10-24 Outpatient Ross, STLMLC STLMLC [id number] Common 13:24:10 Mahad 94088 [facility] 2021-10-24 Outpatient Ross, STLMLC STLMLC [id number] Common 13:06:32 Mahad 14111 [facility] 2021-10-24 Outpatient Ross, STLMLC STLMLC [id number] Common 12:40:59 Mahad 09118 [facility] 2021-10-24 Outpatient Ross, STLMLC STLMLC [id number] Common 12:30:18 Mahad 65334 [facility] 2021-10-24 Outpatient Ross, STLMLC STLMLC [id number] Common 12:29:04 Mahad 65651 [facility] 2021-10-24 Outpatient Ross, STLMLC STLMLC [id number] Common 11:52:46 Mahad 58082 [facility] 2021-10-24 Outpatient Ross, STLMLC STLC [id number] Common 11:44:17 Mahad 94474 [facility] 2021-10-24 Outpatient Ross, STLMLC STLC [id number] Common 11:37:11 Mahad 90058 [facility] 2022-06-06 2022-06-06 ambulatory STLMLC STLMLC [id number] Common 00:00:00 00:00:00 [facility] 2022-05-27 2022-05-[address] [facility] [id number] Univers 09:10:00 09:10:00 CALLIE [id number] ity of [facility] 2022-05-27 2022-05-27 Transition SIOBHAN Rollins [id number] Univers 00:00:00 00:00:00 of Care Simón PEREA [id number] ity [place] [id number] Tess dent [id number] [address] 2022-05-23 2022-05-24 Outpatient Kt CUELLAR [facility] [id number] Univers 07:39:00 17:43:00 CALLIE [facility] 2022-05-23 2022-05-24 Emergency Gertrude Black [facility] [id number] Univers 07:39:00 17:43:00 Callie Cuellar LE [id number] [facility] [id number] [facility] [id number] [place] [address] Branch 2022-05-24 2022-05-[address] [facility] [id number] Univers 00:00:00 00:00:00 CALLIE [id number] [facility] 2022-05-09 2022-05-09 Outpatient Cobb[facility]T [facility] [id number] Devoted 00:00:00 00:00:00 0811 [facility] 2022-04-18 2022-04-18 ambulatory STLMLC STLMLC [id number] Common 00:00:00 00:00:00 [facility] 2022-04-18 2022-04-18 ambulatory STLMLC STLMLC [id number] Common 00:00:00 00:00:00 [facility] 2022-04-12 2022-04-12 Outpatient Deshazo_T [facility] [id number] Devoted 03:30:00 03:30:00 0715 Medica l Group 2022-04-10 2022-04-10 Outpatient Deshazo_T [facility] [id number] Devoted 04:58:00 04:58:00 0713 Medica l Group 2022-04-04 2022-04-04 ambulatory STLMLC STLMLC [id number] Common 00:00:00 00:00:00 [facility] 2022-04-04 2022-04-04 ambulatory STLMLC STLMLC [id number] Common 00:00:00 00:00:00 [facility] 2022-03-26 2022-03-26 ambulatory STLMLC STLMLC [id number] Common 00:00:00 00:00:00 [facility] 2022-02-14 2022-02-14 ambulatory STLMLC STLMLC [id number] Common 00:00:00 00:00:00 [facility] 2022-01-22 2022-01-22 ambulatory STLMLC STLMLC [id number] Common 00:00:00 00:00:00 [facility] 2022-01-17 2022-01-17 ambulatory STLMLC STLMLC [id number] Common 00:00:00 00:00:00 [facility] 2021-11-12 2021-11-12 Orders Doctor NIR [id number] Univers 00:00:00 00:00:00 Only Unassigned, SHAI [id number] ity [facility] [id number] Lauri as [id number] [address] 2021-11-01 2021-11-[address] [facility] [id number] Univers 13:30:00 13:30:00 HERNAN [id number] [facility] 2021-10-16 2021-10-16 ambulatory STLMLC STLMLC [id number] Common 00:00:00 00:00:00 [facility] 2021-10-16 2021-10-16 ambulatory STLMLC STLMLC [id number] Common 00:00:00 00:00:00 [facility] 2021-10-09 2021-10-[address] [facility] [id number] Univers 14:20:00 14:20:00 NEELA ALBARADO [facility] 2021-10-09 2021-10-[address] [facility] [id number] Univers 13:00:00 13:00:00 NEELA ALBARADO [id number] [facility] 2021-10-09 2021-10-09 ambulatory STLMLC STLMLC [id number] Common 00:00:00 00:00:00 [facility] 2021-10-08 2021-10-08 ambulatory STLMLC STLMLC [id number] Common 00:00:00 00:00:00 [facility] 2021-10-05 2021-10-05 ambulatory STLMLC STLMLC [id number] Common 00:00:00 00:00:00 [facility] 2021-10-02 2021-10-02 Transition SIOBHAN Rollins [id number] Univers 00:00:00 00:00:00 of Care Simón JULIENY [id number] ity [facility] [id number] [place] [phone] [address] 2021-10-01 2021-10-01 ambulatory STLMLC STLMLC [id number] Common 00:00:00 00:00:00 [facility] 2021-09-27 2021-09-30 Outpatient Kt HONG [facility] [id number] Univers 17:38:00 15:22:00 VIKASH tony [facility] 2021-09-19 2021-09-19 Outpatient OWENS_T DMG [facility] [id number] Devoted 01:00:00 01:00:00 1222 Medica l Group 2021-09-05 2021-09-05 CAV Tomora [id number]. [id number]. CLAC [id number] Devoted 14:30:00 15:30:00 Ruiz [id number]. [id number] [facility] [id number] 2021-08-10 2021-08-10 Outpatient OWENS_T DMG [facility] [id number] Devoted 10:31:00 10:31:00 1112 Medica l Group 2021-08-07 2021-08-07 Outpatient CURRY_S [facility] DMG [id number] Devoted 02:14:00 02:14:00 1109 Medica l Group 2021-07-17 2021-07-17 Outpatient STLMLC STLMLC [id number] Common 00:00:00 00:00:00 [facility] 2021-07-10 2021-07-10 Outpatient STLMLC STLMLC [id number] Common 00:00:00 00:00:00 [facility] 2021-07-04 2021-07-04 Outpatient STLMLC STLMLC [id number] Common 00:00:00 00:00:00 [facility] 2021-06-26 2021-06-26 Outpatient STLMLC STLMLC [id number] Common 00:00:00 00:00:00 [facility] 2021-05-29 2021-05-29 Outpatient STLMLC STLMLC [id number] Common 00:00:00 00:00:00 [facility] 2021-05-22 2021-05-22 Outpatient CURRY_S DMG SAMPSONG [id number] Devoted 05:13:00 05:13:00 0824 Medica l Group 2021-05-22 2021-05-22 Outpatient STLMLC STLMLC [id number] Common 00:00:00 00:00:00 [facility] 2021-05-04 2021-05-04 Outpatient STLMLC STLMLC [id number] Common 00:00:00 00:00:00 [facility] 2021-04-30 2021-04-30 Outpatient STLMLC STLMLC [id number] Common 00:00:00 00:00:00 [facility] 2021-04-30 2021-04-30 Outpatient STLMLC STLMLC [id number] Common 00:00:00 00:00:00 [facility] 2021-04-06 2021-04-06 Outpatient STLMLC STLMLC [id number] Common 00:00:00 00:00:00 [facility] 2021-01-29 2021-01-29 Outpatient DMG DMG [id number] Devoted 06:02:00 06:02:00 0503 Medica l Group 2021-01-18 2021-01-18 Outpatient DMG DMG [id number] Devoted 12:00:00 12:00:00 0422 Medica l Group 2020-08-14 2020-08-14 [facility] [id number] 14:12:00 15:54:00 Love Butcher [id number] [place] [id number] [place] [id number] Results Test Description Test Time Test Comments Results Result Comments Source Troponin I 2022-05-24 10:17:19 Test Item Value Reference Range Interpretation Comme nts TROPONIN I (test code = 0.007 ng/mL See_Comment [Au tomated message] The [id number]) system which ge nerated this result tra [...] biotin. Lab Interpretation Normal (test code = 52562-7) [facility] 10:05:38 Test Item Value Reference Range Interpretation Comments MAGNESIUM (test code = 8459221886) 2.1 mg/dL 1.7-2.4 Lab Interpretation (test code = Normal 35753-0) [facility] (NA, K, CL, CO2, GLUCOSE, BUN, CREATININE, CA)2022-05-24 10:05:18 Test Item Value Reference Range Interpretation Comments NA (test code = 136 mmol/L 135-145 7646649638) K (test code = 4.9 mmol/L 3.5-5 6857763202) CL (test code = 109 mmol/L 98-108 H 4074679372) CO2 TOTAL (test code = 21 mmol/L 23-31 L 6971750843) AGAP (test code = 2-16 8040516924) BUN (test code = 27 mg/dL 7-23 H 0487542380) GLUCOSE (test code = 89 mg/dL 70-110 2825509307) CREATININE (test code = 1.62 mg/dL 0.6-1.25 H 0607530160) CALCIUM (test code = 8.5 mg/dL 8.6-10.6 L 3749607884) eGFR (test code = mL/min/1.73m2 9033120159) ISIDORO (test code = ISIDORO) Association of [...] tests). Lab Interpretation Abnormal (test code = 43168-5) [facility] WITH [id number] 09:31:37 Test Item Value Reference Range Interpretation Comments WBC (test code = See_Comment [Automated 0190-2) message] The sy stem which generated this result transmitted reference range : 4.20 - 10.70 10*3/?L. The reference range was not used to interpret this result as normal/abnormal . RBC (test code = See_Comment L [Automated 789-8) message] The sy stem which generated this [...] RDW-SD (test code = 43.6 fL 38.5-51.6 98317-9) RDW-CV (test code = 13.1 % 12.1-15.4 788-0) PLT (test code = See_Comment [Automated 777-3) message] The sy stem which generated this result transmitted reference range : 150 - 328 10*3/ ?L. The reference r cuong was not used to interpret this result as normal/abnormal . MPV (test code = 9.3 fL 9.8-13 L 98452-4) NRBC/100 WBC (test See_Comment [Automat ed code = 9415649263) message] The system which generated this result transmitted reference range : 0.0 - 10.0 /100 WBCs. The refer ence range was not u sed to interpret th is result as normal/abnormal . NRBC x10^3 (test code See_Comment [Auto mated = 4502230721) message] The s ystem which generated this result transmitted reference range : 10*3/?L. The reference range was not used to interpret this result as normal/abnormal . GRAN MAT (NEUT) % 56.1 % (test code = 770-8) IMM GRAN % (test code 0.40 % = 0498318610) LYMPH % (test code = 27.1 % 736-9) MONO % (test code = 9.9 % 5905-5) EOS % (test code = 5.8 % 713-8) BASO % (test code = 0.7 % 706-2) GRAN MAT x10^3(ANC) 4.53 10*3/uL 1.99-6.95 (test code = 5095069159) IMM GRAN x10^3 (test 0.03 10*3/uL 0-0.06 code = 9499313509) LYMPH x10^3 (test code 2.19 10*3/uL 1.09-3.23 = 731-0) MONO x10^3 (test code 0.80 10*3/uL 0.36-1.02 = 742-7) EOS x10^3 (test code = 0.47 10*3/uL 0.06-0.53 711-2) BASO x10^3 (test code 0.06 10*3/uL 0.01-0.09 = 704-7) Lab Interpretation Abnormal (test code = 82741-1) [id number] 04:35:45 Test Item Value Reference Interpretation Comments Range TROPONIN I (test 0.004 ng/mL See_Comment [Automated code = 6097711645) message] The system which generated this result [...] biotin. Lab Interpretation Normal (test code = 26928-9) [facility] 01:26:40 Test Item Value Reference Range Interpretation Comments Height (test code = in 7777741319) Weight (test code = lbs 6189285669) Systolic BP (test code = mmHg 8723239775) Diastolic BP (test code mmHg = 7748133540) Heart Rate (test code = bpm 2481863957) BSA (test code = 2.09 m2 4524824487) Ao root annulus (test 3.2 cm code = 3641509531) Ao root diam (test code 3.20 cm = 9130939516) Aortic root (test code = 3.2 cm 1646863339) LVOT diameter (test code 2.14 cm = 0071803940) LVIDD (test code = 5.00 cm 8161403422) IVS (test code = 1.31 cm 1157450101) Interventricular Septum 1.31 cm Diastolic Thickness by 2D (test code = 7994015) LVPWD (test code = 1.32 cm 3673881402) PW (test code = 1.32 cm 0.6-1.1 2192722805) EF(Teich) (test code = 61.30 % 1095511840) LVIDS (test code = 3.30 cm 1546362155) FS (test code = 33 % 7795616789) EF - 2D (test code = 61.30 % 77850376) LA size (test code = 3.6 cm 4349039691) TR Peak Mayank (test code = 261.9 cm/s 5167722997) Triscuspid Valve mmHg Regurgitation Peak Gradient (test code = 8154626194) LAV(MOD-sp4) (test code 59.10 mL = 6484250149) E wave decelartion time 0.23 s (test code = 7521828599) MV Peak E Mayank (test code 73.6 cm/s = 4023598647) MV stenosis pressure 1/2 70.2 ms time (test code = 2945567247) MV Peak A Mayank (test code 55.9 cm/s = 8876459005) E/A ratio (test code = ratio 6447539931) MV Prop V (test code = 58.20 cm/s 5898007736) MV E/e' septal (test 12.2 cm/s code = 2468548170) Tapse (test code = 2.9 cm 8718945049) LVOT stroke volume (test 103.80 cm3 code = 0163270115) LVOT peak mayank (test code 147.2 cm/s = 1674356493) LVOT mn grad (test code mmHg = 5798791564) AV LVOT peak gradient mmHg (test code = 8522938017) LVOT peak VTI (test code 28.7 cm = 3633317706) LV V1 mean (test code = 93.00 cm/s 5822284822) Aortic valve mean 119.4 cm/s velocity (test code = 7181461144) Ao peak mayank (test code = 165.6 cm/s 7939399938) Ao VTI (test code = 35.2 cm 0502035419) AV area by cont VTI 2.9 cm2 (test code = 7237646404) AV area peak mayank (test 3.2 cm2 code = 1560550839) Ao max PG (test code = 11.00 mm[Hg] 7545331136) AV peak gradient (test mmHg code = 6642312470) AV valve area (test code 2.90 cm2 = 0853350594) AV mean gradient (test mmHg code = 3137000602) Radiology Study observation (narrative) (test code = 67044-7) ISIDORO (test code = ISIDORO) Formatting of [...] 2D, color flow Doppler and spectral Doppler. [facility] [id number] 14:25:35 Test Item Value Reference Interpretation Comments Range TROPONIN I (test 0.009 ng/mL See_Comment [Automated code = 3037069456) message] The system which generated this result [...] biotin. Lab Interpretation Normal (test code = 76054-7) [facility] (89402)2022-05-23 14:14:13 Test Item Value Reference Range Interpretation Comments NA (test code = 143 mmol/L 135-145 2061747919) K (test code = 5.0 mmol/L 3.5-5 0236630224) CL (test code = 111 mmol/L 98-108 H 0321876065) CO2 TOTAL (test code = 20 mmol/L 23-31 L 8769068137) AGAP (test code = 2-16 1232504523) BUN (test code = 30 mg/dL 7-23 H 6325032467) GLUCOSE (test code = 85 mg/dL 70-110 3358412595) CREATININE (test code = 2.07 mg/dL 0.6-1.25 H 8886754871) TOTAL BILI (test code = 0.6 mg/dL 0.1-1.6 8607039246) CALCIUM (test code = 9.0 mg/dL 8.6-10.6 2183258137) T PROTEIN (test code = 7.2 g/dL 6.3-8.2 8454765260) ALBUMIN (test code = 4.4 g/dL 3.5-5 0251637694) ALK PHOS (test code = 121 U/L 34-122 9608021775) ALTv (test code = 23 U/L 550 2-6) AST(SGOT) (test code = 29 U/L 13-40 4966656932) eGFR (test code = mL/min/1.73m2 3805178328) ISIDORO (test code = ISIDORO) Association of [...] tests). Lab Interpretation Abnormal (test code = 36186-9) [facility] WITH [id number] 14:11:10 Test Item Value Reference Range Interpretation Comments WBC (test code = See_Comment H [Automated 6690-2) message] The sy stem which generated this result transmitted reference range : 4.20 - 10.70 10*3/?L. The reference range was not used to interpret this result as normal/abnormal . RBC (test code = See_Comment [Automated 789-8) message] The sy stem which generated this [...] RDW-SD (test code = 42.9 fL 38.5-51.6 05705-0) RDW-CV (test code = 12.9 % 12.1-15.4 788-0) PLT (test code = See_Comment H [Automated 777-3) message] The sy stem which generated this result transmitted reference range : 150 - 328 10*3/ ?L. The reference r cuong was not used to interpret this result as normal/abnormal . MPV (test code = 9.0 fL 9.8-13 L 71405-3) NRBC/100 WBC (test See_Comment [Automat ed code = 8976900454) message] The system which generated this result transmitted reference range : 0.0 - 10.0 /100 WBCs. The refer ence range was not u sed to interpret th is result as normal/abnormal . NRBC x10^3 (test code See_Comment [Auto mated = 1608723828) message] The s ystem which generated this result transmitted reference range : 10*3/?L. The reference range was not used to interpret this result as normal/abnormal . GRAN MAT (NEUT) % 71.9 % (test code = 770-8) IMM GRAN % (test code 0.40 % = 1956606238) LYMPH % (test code = 16.1 % 736-9) MONO % (test code = 8.4 % 5905-5) EOS % (test code = 2.5 % 713-8) BASO % (test code = 0.7 % 706-2) GRAN MAT x10^3(ANC) 8.20 10*3/uL 1.99-6.95 H (test code = 5644523037) IMM GRAN x10^3 (test 0.05 10*3/uL 0-0.06 code = 6639511161) LYMPH x10^3 (test code 1.84 10*3/uL 1.09-3.23 = 731-0) MONO x10^3 (test code 0.96 10*3/uL 0.36-1.02 = 742-7) EOS x10^3 (test code = 0.29 10*3/uL 0.06-0.53 711-2) BASO x10^3 (test code 0.08 10*3/uL 0.01-0.09 = 704-7) Lab Interpretation Abnormal (test code = 29176-1) [facility]"
[2022-06-19 15:10] LABS: Absolute Lymphocytes (CBC) 1.9 K/uL (0.7-4.9); Hematocrit 42.9 % (39.6-49.0); Lymphocytes % 19.8 % (15.3-44.8); MCV 90.8 fL (80-100); MPV 7.2 fL (7.6-11.3); RBC Red Blood Cell Count 4.73 M/uL (4.33-5.43)
[2022-06-19 15:17] LABS: Protime INR 0.94
[2022-06-19 15:32] LABS: ALT/SGPT 29 U/L (12-78); AST/SGOT 27 U/L (15-37); Alkaline Phosphatase 143 U/L (45-117); BUN Blood Urea Nitrogen 28 mg/dL (7-18); Bicarbonate 26 mmol/L (21-32); Bilirubin Total 0.4 mg/dL (0.2-1.0); Glomerular Filtration Rate 29 ml/min (=/>90); Glucose Level 100 mg/dL (74-106); Potassium 3.7 mmol/L (3.5-5.1); Protein, Total 8.3 g/dL (6.4-8.2); Sodium Level 138 mmol/L (136-145)
[2022-06-19 15:41] LABS: Bilirubin Direct < 0.1 mg/dL (0-0.2)
[2022-06-19] MEDS ORDERED: ACETAMINOPHEN 500 MG TAB ONE (15:48)
[2022-06-19] MEDS ORDERED: NA CHLORIDE 0.9% 1,000 ML ONE (16:18)
--- NOTE | 2022-06-19 16:56 | RAD REPORT ---
EXAM DESCRIPTION: CT - Stone Protocol - 06/19/2022 4:48 pm CLINICAL HISTORY: Flank pain. FLANK COMPARISON: Abdomen Pelvis W Contrast dated 06/01/2022 TECHNIQUE: Axial images were obtained without oral or IV contrast. Lack of contrast limits solid org an and vascular assessment. The wcail-cf-qyzy spans the entirety of the system partially obscuring uppermost abdomen and lung bases. Coronal reformatted images were obtained and reviewed. All CT scans are performed using dose optimization technique as appropriate and may include automated exposure control or mA/KV adjustment according to patient size. FINDINGS: The lower lung granado are clear. Imaged portions of the liver and spleen show no suspicious findings on non-contrast imaging. The panc reas and adrenal glands are normal. No pathologic lymphadenopathy in the abdomen or pelvis. No urinary tract stones or obstructive uropathy. No bowel obstruction, free air, free fluid or abscess. Appendectomy.Left inguinal hernia is present c ontaining fat and section of the sigmoid without obstruction. Moderate lumbar degenerative changes. IMPRESSION: No urinary tract stones or obstructive uropathy. Small left inguinal hernia containing fat in a small portion of the sigmoid colon.
[2022-06-19] MEDS ORDERED: QUETIAPINE 25 MG TAB PO ONE (17:00)
--- NOTE | 2022-06-19 17:07 | EDPHYS ---
Physician Documentation [facility] Name: Wood Jj Age: 62 yrs Sex: Male : 1960 Arrival Date: 06/19/2022 Time: 13:34 Bed 13 Private MD: [facility] ED Physician Gurpreet Baxter HPI: 06/19 15:33 This 62 yrs old Male presents to ER via Ambulatory with complaints of Mental diego Evaluation. 15:33 The patient presents to the emergency department with anxiety. Onset: The diego symptoms/episode began/occurred 5 day(s) ago. Past psychiatric history: Prior diagnosis: depression, PTSD. Associated signs and symptoms: Pertinent positives; delusions, paranoia, substance abuse. Severity of symptoms: At their worst the symptoms were mild moderate in the emergency department the symptoms have improved moderately. The patient has experienced similar episodes in the past, several times. Historical: - Allergies: 14:13 PENICILLINS; iw 14:13 Xanax; iw 15:09 Valium; "makes my heart stop"; tw2 15:09 Amitriptyline; "major agression"; tw2 15:09 Ativan; tw2 15:11 venom-honey bee; tw2 15:11 venom-wasp; tw2 15:36 amphetamine sulfate; tw2 15:36 dextroamphetamine sulfate; tw2 15:36 ketorolac tromethamine; tw2 15:36 amphetamine aspartate; tw2 15:36 dextroamphetamine saccharate; tw2 15:36 diazepam; tw2 15:36 Alprazolam; tw2 15:36 Trazodone; tw2 15:36 Lorazepam; tw2 15:36 BENZODIAZEPINES; tw2 - PMHx: 14:13 Hypercholesterolemia; Hypertension; Myocardial infarction; stroke; iw 15:36 Drug abuse; tw2 - PSHx: 14:13 Appendectomy; eye sx; Hemorrhoidectomy; Hernia sx; iw - Immunization history:: Adult Immunizations. - Social history:: Smoking status: . - Family history:: not pertinent. ROS: 15:33 Constitutional: Negative for fever, chills, and weight loss, Eyes: Negative for injury, diego pain, redness, and discharge, ENT: Negative for injury, pain, and discharge, Neck: Negative for injury, pain, and swelling, Cardiovascular: Negative for chest pain, palpitations, and edema, Respiratory: Negative for shortness of breath, cough, wheezing, and pleuritic chest pain, Abdomen/GI: Negative for abdominal pain, nausea, vomiting, diarrhea, and constipation, Back: Negative for injury and pain, : Negative for injury, bleeding, discharge, and swelling, MS/Extremity: Negative for injury and deformity, Skin: Negative for injury, rash, and discoloration, Psych: Negative for depression, anxiety, suicide ideation, homicidal ideation, and hallucinations, Allergy/Immunology: Negative for hives, rash, and allergies, Endocrine: Negative for neck swelling, polydipsia, polyuria, polyphagia, and marked weight changes, Hematologic/Lymphatic: Negative for swollen nodes, abnormal bleeding, and unusual bruising. 15:33 Neuro: Positive for weakness. 15:33 Psych: Positive for anxiety, depression, visual hallucinations, insomnia. Exam: 15:33 Constitutional: This is a well developed, well nourished patient who is awake, alert, diego and in no acute distress. Head/Face: Normocephalic, atraumatic. Eyes: Pupils equal round and reactive to light, extra-ocular motions intact. Lids and lashes normal. Conjunctiva and sclera are non-icteric and not injected. Cornea within normal limits. Periorbital areas with no swelling, redness, or edema. ENT: Nares patent. No nasal discharge, no septal abnormalities noted. Tympanic membranes are normal and external auditory canals are clear. Oropharynx with no redness, swelling, or masses, exudates, or evidence of obstruction, uvula midline. Mucous membranes moist. Neck: Trachea midline, no thyromegaly or masses palpated, and no cervical lymphadenopathy. Supple, full range of motion without nuchal rigidity, or vertebral point tenderness. No Meningismus. Chest/axilla: Normal chest wall appearance and motion. Nontender with no deformity. No lesions are appreciated. Cardiovascular: Regular rate and rhythm with a normal S1 and S2. No gallops, murmurs, or rubs. Normal PMI, no JVD. No pulse deficits. Respiratory: Lungs have equal breath sounds bilaterally, clear to auscultation and percussion. No rales, rhonchi or wheezes noted. No increased work of breathing, no retractions or nasal flaring. Abdomen/GI: Soft, non-tender, with normal bowel sounds. No distension or tympany. No guarding or rebound. No evidence of tenderness throughout. Back: No spinal tenderness. No costovertebral tenderness. Full range of motion. Male : Normal genitalia with no discharge or lesions. Skin: Warm, dry with normal turgor. Normal color with no rashes, no lesions, and no evidence of cellulitis. MS/ Extremity: Pulses equal, no cyanosis. Neurovascular intact. Full, normal range of motion. Neuro: Awake and alert, GCS 15, oriented to person, place, time, and situation. Cranial nerves II-XII grossly intact. Motor strength 5/5 in all extremities. Sensory grossly intact. Cerebellar exam normal. Normal gait. Psych: Awake, alert, with orientation to person, place and time. Behavior, mood, and affect are within normal limits. 15:33 ECG was reviewed by the Attending Physician. Vital Signs: 14:08 BP 137 / 82; Pulse 72; Resp 16; Temp 97.9; Pulse Ox 97% on R/A; iw 15:08 BP 108 / 71; Pulse 71; Resp 17; Pulse Ox 96% on R/A; tw2 16:22 BP 112 / 66; Pulse 65; Resp 17; Pulse Ox 97% on R/A; tw2 17:30 BP 100 / 65; Pulse 63; Resp 17; Pulse Ox 98% on R/A; tw2 18:17 BP 96 / 65 Supine; Pulse 51; Resp 17; Pulse Ox 99% on R/A; tw2 MDM: 13:41 Patient medically screened. [facility] 15:38 Differential diagnosis: acute psychotic break, depression. Data reviewed: vital signs, [facility] nurses notes, lab test result(s), EKG. Data interpreted: groundwater monitoring technician: not applicable for this patient encounter. rate is 71 beats/min, Pulse oximetry: on room air is 96 %. Test interpretation: by ED physician or midlevel provider: ECG. Counseling: I had a detailed discussion with the patient and/or guardian regarding: the historical points, exam findings, and any diagnostic results supporting the discharge/admit diagnosis, lab results, the need for outpatient follow up, for definitive care, a family practitioner, a psychiatrist. 06/19 13:41 Order name: Acetaminophen; Complete Time: 15:46 [facility] 06/19 13:41 Order name: Basic Metabolic Panel; Complete Time: 15:46 [facility] 06/19 13:41 Order name: CBC with Diff; Complete Time: 15:21 [facility] 06/19 13:41 Order name: ETOH Level; Complete Time: 15:46 [facility] 06/19 13:41 Order name: Hepatic Function; Complete Time: 15:46 [facility] 06/19 13:41 Order name: PT-INR; Complete Time: 15:21 [facility] 06/19 13:41 Order name: Ptt, Activated; Complete Time: 15:21 [facility] 06/19 13:41 Order name: Salicylate; Complete Time: 15:46 [facility] 06/19 13:41 Order name: Urine Drug Screen [facility] 06/19 15:47 Order name: CT Stone Protocol [facility] 06/19 16:58 Order name: CT; Complete Time: 17:05 [facility] 06/19 17:23 Order name: Urine Dipstick-Ancillary; Complete Time: 17:25 [facility] 06/19 13:41 Order name: EKG; Complete Time: 13:42 [facility] 06/19 13:41 Order name: EKG - Nurse/Tech; Complete Time: 15:36 [facility] 06/19 13:41 Order name: IV Saline Lock; Complete Time: 15:08 [facility] 06/19 13:41 Order name: Labs collected and sent; Complete Time: 15:08 [facility] 06/19 13:41 Order name: Suicide Screening ([place]); Complete Time: 17:22 [facility] 06/19 13:41 Order name: Urine Dipstick-Ancillary (obtain specimen); Complete Time: 17:22 diego EC:33 Rate is 65 beats/min. Rhythm is regular. QRS [place] is Normal. IA interval is normal. QRS diego interval is normal. QT interval is normal. No Q waves. T waves are Normal. No ST changes noted. Clinical impression: NSR w/ Non-specific ST/T Changes and No evidence of ischemia. Interpreted by me. Reviewed by me. Administered Medications: 15:42 Drug: Tylenol 1000 mg Route: PO; tw2 17:22 Follow up: Response: No adverse reaction tw2 16:21 Drug: NS 0.9% 1000 ml Route: IV; Rate: 1 bolus; Site: right antecubital; tw2 18:15 Follow up: Response: No adverse reaction; IV Status: Completed infusion; IV Intake: tw2 1000ml 16:40 Drug: SEROquel (QUEtiapine) 25 mg Route: PO; tw2 17:22 Follow up: Response: No adverse reaction tw2 Disposition Summary: 06/19/22 17:06 Discharge Ordered Location: Home diego Problem: new diego Symptoms: have improved diego Condition: Stable diego Diagnosis - Adjustment disorder with depressed mood diego - Post-traumatic stress disorder (PTSD) diego - Insomnia diego - Acute kidney failure, unspecified - RENAL INSUFFICENCY diego - Dehydration diego Followup: diego - With: - When: 2 - 3 days - Reason: Recheck today's complaints, Continuance of care, Re-evaluation by your physician Followup: diego - With: - When: 2 - 3 days - Reason: Recheck today's complaints, Re-evaluation by your physician Followup: diego - With: - When: 2 - 3 days - Reason: Recheck today's complaints, Re-evaluation by your physician Discharge Instructions: - Discharge Summary Sheet diego - Adjustment Disorder, Adult diego - Persistent Depressive Disorder, Adult, [id number] diego - Acute Kidney Injury, Adult diego - Dehydration, Adult diego - Dehydration, Adult, [id number] diego - Supporting Someone With Depression diego - Managing Depression, Adult diego Forms: - Medication Reconciliation Form diego - Thank You Letter diego - Antibiotic Education diego - Prescription Opioid Use [facility] Prescriptions: - Seroquel 25 mg Oral tablet - take 1 tablet by ORAL route 2 times per day; 30 tablet; Refills: 0, Product diego Selection Permitted - magnesium - take 2 tablet by ORAL route once daily; 30 tablet; Refills: 0, Product dieog Selection Permitted Signatures: Dispatcher [employer] Gurpreet Mederos MD MD cha Williams, Irene, RN RN iw Wise, Tara, RN RN tw2 Corrections: (The following items were deleted from the chart) 15:12 14:13 Allergies: Valium; iw tw2
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
[2022-06-19 17:22] LABS: Urine Blood Negative (Negative); Urine Glucose Negative (Negative); Urine Protein Trace (Negative); Urine Specific Gravity >=1.030 (1.005-1.030); Urine pH 5.5 (5.0-7.0)
[2022-06-19 18:04] LABS: Barbiturates NEGATIVE (NEGATIVE); Benzodiazepines NEGATIVE (NEGATIVE); Cocaine POSITIVE (NEGATIVE); METHAMPHETAM POSITIVE (NEGATIVE); Methadone NEGATIVE (NEGATIVE); Opiates NEGATIVE (NEGATIVE); Phencyclidine NEGATIVE (NEGATIVE); THC Cannibis NEGATIVE (NEGATIVE)
--- NOTE | 2022-06-20 13:39 | EKG ---
Test Date: 2022-06-19 Test Time: 15:34:48 [employer]: GLENDY MEASUREMENT RESULTS: Intervals: Rate: 65 DC: 148 QRSD: 76 QT: 422 QTc: 438 [place]: P: 71 DC: 148 QRS: 27 T: 33 INTERPRETIVE STATEMENTS: Normal sinus rhythm Low voltage QRS Borderline ECG Compared to ECG 04/15/2022 17:06:57 Low QRS voltage now present Sinus bradycardia no longer present Myocardial infarct finding no longer present Electronically Signed On 06-20-22 13:37:54 CDT by Mino Tsai
[2022-06-21 04:57] VITALS: TEMP 97.9
[2022-06-21 05:05] VITALS: BP 96/65; O2SAT 99
== END 2022-06-19 18:18 | disposition home or self-care (01) ==
LOC: ER 13:32
DX: F43.21 Adjustment disorder with depressed mood (principal); G47.00 Insomnia, unspecified; F43.10 Post-traumatic stress disorder, unspecified; E86.0 Dehydration; N17.9 Acute kidney failure, unspecified; I10 Essential (primary) hypertension; Z88.0 Allergy status to penicillin; Z88.5 Allergy status to narcotic agent; Z91.018 Allergy to other foods; Z91.030 Bee allergy status; Z91.038 Other insect allergy status
CPT/HCPCS: 96361; 93005; 85025; 80048; 36415; 80320; 80329 ×2; 85610; 80076; 85730; 81003; 80307; 76377; 74176; 96360; 99285; J7030

== ENCOUNTER 2022-09-28 14:27 | Observation (INO) | payer MEDICARE ==
--- OUTSIDE RECORDS SUMMARY | 2022-09-28 14:35 | XMS REPORT | Continuity of Care Document ---
:1960 Author Organization [facility] [place] t Address [address] [place] [address] Care Team Providers Name Role Phone CAROLA ROSS Primary Care Physician Unavailable Carola Ross Attending Clinician Unavailable GERTRUDE CHINCHILLA Attending Clinician Unavailable Gertrude Chinchilla DO Attending Clinician Carson_B Attending Clinician Unavailable Cobb_T Attending Clinician Unavailable Ayo ALLRED, Simón Gonzalez Attending Clinician Unavailable CALLIE CUELLAR Attending Clinician Unavailable Callie Cuellar DO Attending Clinician Deshazo_T Attending Clinician Unavailable Doctor Unassigned, [place] Attending Clinician Unavailable NEELA ALBARADO Attending Clinician Unavailable NEELA ALBARADO Attending Clinician Unavailable VIKASH GRIMALDO Attending Clinician Unavailable Silva Szymanski MD Attending Clinician Vikash Grimaldo MD Attending Clinician SERENITY Attending Clinician Unavailable Gretta Ruiz Attending Clinician PARAG_S Attending Clinician Unavailable Love Campbell Attending Clinician GERTRUDE CHINCHILLA Admitting Clinician Unavailable [place]_B Admitting Clinician Unavailable Cobb_T Admitting Clinician Unavailable CALLIE CUELLAR Admitting Clinician Unavailable Callie Cuellar DO Admitting Clinician Deshazo_T Admitting Clinician Unavailable VIKASH GRIMALDO Admitting Clinician Unavailable Vikash Grimaldo MD Admitting Clinician OWENS_T Admitting Clinician Unavailable CURRTanisha_S Admitting Clinician Unavailable Payers Payer Name Policy Type Policy Effective Date Expiration Date Sour ce Number [id number] 2020 MEDICARE 00:00:00 ADVANTAGE PLAN [facility] [id number] 2021 (MEDICARE 00:00:00 REPLACEMENT HMO) [address] 2021 Common Spi rit 00:00:[address] 2021 Common Spi rit 00:00:[address] 2021 Common Spi rit 00:00:[address] 2021 Common Spi rit 00:00:00 [facility] Problems Condition Condition Condition Status Onset Resolution Last Treating Co mments Source Name Details Category Date Date Treatment Clinician Date Chest Chest Disease Active Univers pain, pain, 8-25 ity of unspecif[place] d type 00 Medical [place] Other Other Disease Active Univers hyperlipid hyperlipid 8-25 it y of emia emia 00:00: [place] [facility] Drug abuse Drug abuse Disease Active U nivers 8-25 ity of 00:00: [place] 00 Medical Branch Nonobstruc Nonobstruc Disease Active U nivers tive tive 8-25 ity of atheroscle atheroscle 00:[place] of rosis of 00 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 CAM[place] (acute CAM[place] (acute Disease Active 2020-09 U nivers kidney kidney 2-30 ity of injury) injury) 00:00: [place] [facility] Esophageal Esophageal Disease Active 2017-0 U nivers spasm spasm 4-30 ity of 00:00: [place] 00 Medical Branch A-fib A-fib Disease Active Univers 4-24 ity of 00:00: [place] 00 Medical Branch Atrial Atrial Disease Active Univers fibrillati fibrillati 01-19 it y of on with on with 00:00: [place] RVR RVR 00 Medical Branch Shortness Shortness Disease Active Uni vers of breath of breath 01-19 ity of 00:00: [place] [facility] NSTEMI NSTEMI Disease Active Univers (non-ST (non-ST 01-19 ity of elevated elevated 00:00: [place] myocardial myocardial 00 Me dical infarction infarction Br anch ) ) Tobacco Tobacco Disease Active Univers abuse abuse 01-19 ity of 00:00: [place] [facility] Family Family Disease Active Univers history of history of 01-19 it y of early CAD early CAD 00:00: [facility] Medical Branch Inguinal Inguinal Disease Active 2016-09 Unive rs hernia hernia 2-04 ity of 00:00: [place] 00 Medical Branch Status Status Disease Active Univers epilepticu epilepticu 01-22 it y of s s 00:: [place] [facility] Seizure Seizure Disease Active Univers 4-26 ity of 00:00: [place] 00 Medical Branch [id number] 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 - [facility] Center itis complicati on status Stroke Stroke Problem Common [facility] [id number] Incontinen Problem Com mon ce of Spirit feces, - CHI unspecifie [facility] fecal [facility] incontinen Medica l ce type Center [id number] Primary Problem Common insomnia [facility] [id number] TIA Problem Common (transient Spirit ischemic - CHI attack) [facility] [id number] Aphasia Problem Common Spirit - CHI [facility] [id number] Body mass Problem Com mon index Spirit [BMI] - CHI 31.0-31.9, [facility] [id number] Other Problem Common obesity Spirit due to - CHI excess [facility] [id number] Mixed Problem Common hyperlipid Spirit emia - CHI [facility] [id number] Paroxysmal Problem Co mmon atrial Spirit fibrillati - CHI on [facility] [id number] Vitamin D Problem Comm on deficiency Spirit - CHI [facility] [id number] Primary Problem Comm on osteoarthr Spirit itis of - CHI left knee [facility] [id number] Other Problem Common chronic Spirit pain - CHI [facility] [id number] Arthritis Problem Co mmon [id number] of knee, Spirit left - CHI [facility] [id number] Essential Problem Comm on hypertensi Spirit on - CHI [facility] [id number] Tobacco Problem Commo n use Spirit disorder, - CHI continuous [facility] [id number] Non-season Problem Com mon al Spirit allergic - CHI rhinitis, [facility] [id number] Primary Problem Comm on osteoarthr Spirit itis of - CHI left [facility] Primary Primary Problem Common osteoarthr osteoarthr Sp awais itis itis - CHI involving [facility] Allergies, Adverse Reactions, Alerts Allergy Allergy Status Severity Reaction(s) Onset Inactive Treating Comm ents Source Name Type Date Date Clinician LORAZEPA DRUG Active Anaphylaxis Uni vers M INGREDI 05-23 ity of 00:00: [place] 00 Medical Branch Lorazepa Propensi Active Anaphylaxis Pt has U nivers m ty to 05-23 had ity of adverse 00:00: multiple [place] reaction administr Medic al s ations of Branch ativan IV as well as EM without any negative reactions . BENADRYL DRUG Active High Swelling 2018-09 Univer s ALLERGY 1-14 ity of DECONGES 00:00: [place] TANT 00 Medical Branch Benadryl Propensi Active Swelling 2018-09 Univ ers Allergy ty to 1-14 ity of Deconges adverse 00:00: [place] tant reaction Medical s Branch DIAZEPAM DRUG Active High Anaphylaxis 2017- Uni vers INGREDI 2-04 ity of 00:00: [place] 00 Medical Branch Diazepam Propensi Active Anaphylaxis 2017- Patient Univers ty to 2-04 states ity [...] Medical s Branch Penicill Propensi Active Anaphylaxis 2016-0 U nivers ins ty to 8-15 ity of adverse 00:00: [place] reaction Medical s Branch BEE DRUG Active Anaphylaxis 2013-0 Unive rs STING / INGREDI 4-26 ity of VENOM 00:00: [place] 00 Medical Branch Bee Propensi Active Anaphylaxis 2013-0 Uni vers Sting / ty to 4-26 ity of Venom adverse 00:00: [place] reaction 00 Medical s to Branch drug VENOM-WA DRUG Active Anaphylaxis 2014-0 Uni vers SP INGREDI 4-26 ity of 00:00: [place] 00 Medical Branch Venom-Wa Propensi Active Anaphylaxis 2014-0 U nivers sp ty to 4-26 ity of adverse 00:00: [place] reaction 00 Medical s Branch penicill penicill Active swells Common in G in G throat shut Spiri t - [facility] diazepam diazepam Active Stops heart C ommon Spirit - [facility] Social History Social Habit Start Date Stop Date Quantity Comments Source History of Tobacco Current Smoker Co mmon Spirit - Use [facility] Sex Assigned At Common Sp awais - [facility] Exposure to 2022-08-20 2022-08-30 Not sure University of SARS-CoV-2 (event) 00:00:00 07:46:00 [facility] Alcohol intake 2022-08-30 2022-08-30 Current University of 00:00:00 00:00:00 non-drinker of [facility] alcohol Branch (finding) Cigarette 2021-09-27 2021-09-27 University of pack-years 00:00:00 00:00:00 [facility] Tobacco use and 2021-09-27 2021-09-27 Smokeless Universit y of exposure 00:00:00 00:00:00 tobacco non-user [facility] Education 2021-09-27 2021-09-27 8 University 00:00:00 00:00:00 [facility] Cigarettes smoked 2021-09-27 2021-09-27 Univers ity of current (pack per 00:00:00 00:00:00 ) - Reported Branch Smoking Status Start Date Stop Date Source Current Smoker 2022-07-31 00:00:00 Common Spiri t - CHI [facility] Medications Ordered Filled Start Stop Current Ordering Indication Dosage Frequency Signature Comments Components Source Medication Medication Date Date Medication? Clinician (SIG) Name Name dextrose 50 2021-09 No 50mL 50 mL, Uni vers % in water 10-31 Slow IV ity o f (D50W) 19:30: 18:42 Push, [place] injection 00 :00 ONCE, 1 Medical 50 mL dose, On Branch Fri08/30/22 at 1330, Routine NaCl 0.9% 2021-09 No 1000mL at 999 Uni vers (NS) bolus 10-31 mL/hr, ity of infusion 17:45: 19:38 1,000 mL, Lauri as 1,000 mL 00 :00 IV Medical Infusion, Branch ONCE, 1 dose, On Fri08/30/22 at 1145, VANNA NaCl 0.9% 2021-09- No 1000mL at 999 Uni vers (NS) bolus 10-31 mL/hr, ity of infusion 16:00: 16:53 1,000 mL, [place]uri as 1,000 mL 00 :00 IV Medical Infusion, Branch ONCE, 1 dose, On Fri08/30/22 at 1000, VANNA NaCl 0.9% 2021-09 No 1000mL at 999 Uni vers (NS) bolus 10-31 mL/hr, ity of infusion 14:45: 15:24 1,000 mL, [place] as 1,000 mL 00 :00 IV Medical Infusion, Branch ONCE, 1 dose, On Fri08/30/22 at 0845, VANNA carvediloL 2021- No [id number] 3.125mg Take 1 Univers 3.125 mg 05-25 tablet by ity o f tablet 00:00: 04:59 mouth in [place] 00 :00 the Medical morning Branch and 1 tablet in the evening. Take with meals. Do all this for 30 days. carvediloL 2021- No [id number] 3.125mg Take 1 Univers 3.125 mg 05-25 tablet by ity o f tablet 00:00: 04:59 mouth in [place] 00 :00 the Medical morning Branch and 1 tablet in the evening. Take with meals. Do all this for 30 days. nicotine Yes 1{patch Apply 1 Univers mg/24 hr 05-24 } Patch to ity of patch 17:45: area(s) [place] 28 every 24 Medical (twenty-fo Branch ur) hours. Patient reports he smokes 13 cigarettes per day. nicotine Yes 1{patch Apply 1 Univers mg/24 hr 05-24 } Patch to ity of patch 17:45: area(s) [place] 28 every 24 Medical (twenty-fo Branch ur) hours. Patient reports he smokes 13 cigarettes per day. nicotine Yes 1{patch Apply 1 Univers mg/24 hr 05-24 } Patch to ity of patch 17:45: area(s) [place] 28 every 24 Medical (twenty-fo Branch ur) [...] 05-24 Oral, ity of (PROTONIX) 14:00: DAILY, [place] EC tablet 00 First dose Medi usman 40 mg on Fri Branch 05/24/22 at 0900, Until Discontinu ed, Routine lisinopriL Yes 2.5mg 2.5 mg, Uni vers (PRINIVIL,Z 05-24 Oral, ity of ESTRIL) 14:00: DAILY, [place] tablet 2.5 00 First dose Med ical mg on Fri05/24/22 at 0900, Until Discontinu ed, Routine isosorbide 2021-0 Yes 30mg 30 mg, Unive rs mononitrate 05-24 Oral, ity of (IMDUR) 24 14:00: DAILY, [place] hr tablet 00 First dose Medi usman 30 mg on Fri05/24/22 at 0900, Until Discontinu ed, Routine atorvastati 0 Yes 80mg 80 mg, Univ ers n (LIPITOR) 05-24 Oral, ity of tablet 80 14:00: DAILY, [place] mg 00 First dose Medical on Fri05/24/22 at 0900, Until Discontinu ed, Routine aspirin 0 Yes 81mg 81 mg, Univers chewable 05-24 Oral, ity of tablet 81 14:00: DAILY, [place] mg 00 First dose Medical on Fri05/24/22 at 0900, Until Discontinu ed, Routine carvediloL [...] at 2030, Until Discontinu ed, Routine sennosides- 2021-0 Yes 1{tbl} 1 tablet, Univers docusate 05-24 Oral, BID, ity o f sodium 01:00: First dose [place] (SENOKOT-S) 00 fri Medica l 8.6-50 mg 05/23/22 at Bran ch per tablet 1999, 1 tablet Until Discontinu ed, Routine enoxaparin 2021-0 Yes 1mg/kg 90 mg Univ ers (LOVENOX) 05-24 (rounded ity of injection 01:00: [place] 93 [place] 90 mg 00 = 1 mg/kg Medical ?93 kg), Branch Subcutaneo us, Q12H, First dose (after last modificati on) on [facility] 05/23/22 at 2000, Until Discontinu ed, Routine nicotine Yes 1{patch 1 Patch, Un lee (NICODERM) 05-24 } Topical, ity o f 21 mg/24 hr 00:45: Administer [place] patch 1 00 over 24 Medical Patch Hours, Branch Q24H, First dose on [facility] 05/23/22 at 1945, Until Discontinu ed, Routine hydrOXYzine 2021- No [id number] 10mg Take 1 Univers 10 mg 05-24 tablet by ity of tablet 00:00: 04:59 mouth [place] 00 :00 every 6 Medical (six) Branch hours as needed for Anxiety for up to 30 days. hydrOXYzine 2021- No [id number] 10mg Take 1 Univers 10 mg 05-24 tablet by ity of tablet 00:00: 04:59 mouth [place] 00 :00 every 6 Medical (six) Branch hours as needed for Anxiety for up to 30 days. enoxaparin 2021- No 40mg 40 mg, Univ ers (LOVENOX) 05-23 Subcutaneo ity of injection 22:00: 23:48 us, DAILY, [place] 40 mg 00 :16 First dose Medical on [facility] Branch 05/23/22 at 1700, Until Discontinu ed, Routine ondansetron Yes 4mg 4 mg, Slow Univers (ZOFRAN 05-23 IV Push, ity of (PF)) 19:56: Q6HPRN, [place] injection 4 03 Starting Medi usman mg on [facility] Branch 05/23/22 at 1456, Until Discontinu ed, Routine, Nausea and Vomiting (N/V) HYDROcodone 2021- No 1{tbl} 1 tablet, Univers -acetaminop 05-23 Oral, ity of hen (NORCO 19:55: 19:54 Q6HPRN, [place] as 5) 5-325 mg 52 :52 Starting Medi usman tablet 1 on [facility] tablet 05/23/22 at 1455, Until 05/25/22 at 1454, Routine, Pain (scale 4-6) acetaminoph Yes 650mg 650 mg, Un lee en 05-23 Oral, ity of (TYLENOL) 19:55: Q6HPRN, [place] tablet 650 49 Starting Medic al mg [...] bolus 05-23 08-25 mL/hr, ity of infusion 15:15: 18:21 1,000 [...] being used for status epilepticu s? No Eszopiclone Eszopiclone No 1{table QD Eszopiclon 1 MG 1 MG 4-26 t_immed e 1 MG 00:00: iately_ 00 before_ bedtime } Eszopiclone Eszopiclone No 1{table QD Eszopiclon 1 MG 1 MG 4-26 t_immed e 1 MG 00:00: iately_ 00 before_ bedtime } Eszopiclone Eszopiclone No 1{table QD Eszopiclon 1 MG 1 MG 4-26 t_immed e 1 MG 00:00: iately_ 00 before_ bedtime } Zolpidem Zolpidem 2022-0 No QD Zolpidem Tartrate 5 Tartrate 5 4-21 Tartrate 5 MG MG 00:00: MG 00 HYDROcodone 2021- No [id number] 1{tbl} Take 1 U nivers -acetaminop 09-30-10 tablet by it y of marv (NORCO) 00:00: 05:59 [place] 10-325 mg 00 :00 every 8 Medical tablet (eight) Branch hours as needed for Pain (scale 7-10) for up to 7 days. Indication s: acute pain [facility] 2020-09 No 40mg Common (Triamcinol (Triamcinol 0-13 S pirit one) one) 00:00: - CHI 00 [facility] 2020-09 No 40mg Common (Triamcinol (Triamcinol 0-13 S pirit one) one) 00:00: - CHI 00 [facility] 2020-09 No 40mg Common (Triamcinol (Triamcinol 0-13 S pirit one) one) 00:00: - CHI 00 [facility] [place] 2020-09 No 40mg Common (Triamcinol (Triamcinol 0-13 S pirit one) one) 00:00: - CHI 00 [facility] 2020-09 No 40mg Common (Triamcinol (Triamcinol 0-13 S pirit one) one) 00:00: - CHI 00 [facility] [place] [facility] 2020-09 No 40mg Common (Triamcinol (Triamcinol 0-13 S pirit one) one) 00:00: - CHI 00 [facility] [place] [facility] 2020-09 No 40mg Common (Triamcinol (Triamcinol 0-13 S pirit one) one) 00:00: - CHI 00 [facility] [place] 2020-09 No 40mg Common (Triamcinol (Triamcinol 0-13 S pirit one) one) 00:00: - [facility] No 40mg Common (Triamcinol (Triamcinol 0-13 S pirit one) one) 00:00: - CHI 00 [facility] Kenalog Kenalog 1 No 40mg Common (Triamcinol (Triamcinol 0-13 S pirit one) one) 00:00: - CHI 00 [facility] Benzonatate Benzonatate 1 1- No 1{capsu TID Benzonatat 200 MG 200 MG 0-13 10-23 le} e 200 MG 00:00: 00:00 00 :00 Bupivicaine Bupivicaine 2020-0 No 2.5mg Common [place] 9-28 Spirit 00:00: - CHI 00 [facility] Kenalog Kenalog 2020-0 No 40mg Common (Triamcinol (Triamcinol 9-28 S pirit one) one) 00:00: - CHI 00 [facility] Bupivicaine Bupivicaine 2020-0 No 2.5mg Common [place] 9-28 Spirit 00:00: - CHI 00 [facility] Kenalog Kenalog 2020-0 No 40mg Common (Triamcinol (Triamcinol 9-28 S pirit one) one) 00:00: - CHI 00 [facility] Bupivicaine Bupivicaine 2020-0 No 2.5mg Common [place] 9-28 Spirit 00:00: - CHI 00 [facility] Kenalog Kenalog 2020-0 No 40mg Common (Triamcinol (Triamcinol 9-28 S pirit one) one) 00:00: - CHI 00 [facility] Bupivicaine Bupivicaine 2020-0 No 2.5mg Common [place] 9-28 Spirit 00:00: - CHI 00 [facility] Kenalog Kenalog 2020-0 No 40mg Common (Triamcinol (Triamcinol 9-28 S pirit one) one) 00:00: - CHI 00 [facility] Bupivicaine Bupivicaine 2020-0 No 2.5mg Common [place] 9-28 Spirit 00:00: - CHI 00 [facility] Kenalog Kenalog 2020-0 No 40mg Common (Triamcinol (Triamcinol 9-28 S pirit one) one) 00:00: - CHI 00 [facility] Bupivicaine Bupivicaine 2020-0 No 2.5mg Common [place] - Spirit 00:00: - CHI 00 [facility] Kenalog Kenalog 2020-0 No 40mg Common (Triamcinol (Triamcinol 9-28 S pirit one) one) 00:00: - CHI 00 [facility] Bupivicaine Bupivicaine 2020-0 No 2.5mg Common [place] 06-26 Spirit 00:00: - CHI 00 [facility] Kenalog Kenalog 2020-0 No 40mg Common (Triamcinol (Triamcinol 9-28 S pirit one) one) 00:00: - CHI 00 [facility] Bupivicaine Bupivicaine 2020-0 No 2.5mg Common [place] 06-26 Spirit 00:00: - CHI 00 [facility] Kenalog Kenalog 2020-0 No 40mg Common (Triamcinol (Triamcinol - S pirit one) one) 00:00: - CHI 00 [facility] Bupivicaine Bupivicaine 2020-0 No 2.5mg Common [place] 06-26 Spirit 00:00: - CHI 00 [facility] Kenalog Kenalog 2020-0 No 40mg Common (Triamcinol (Triamcinol 9-28 S pirit one) one) 00:00: - CHI 00 [facility] Bupivicaine Bupivicaine 2020-0 No 2.5mg Common [place] 06-26 Spirit 00:00: - CHI 00 [facility] Kenalog Kenalog 2020-0 No 40mg Common (Triamcinol (Triamcinol 9-28 S pirit one) one) 00:00: - CHI 00 [facility] traMADol traMADol 2020-0 2020- No 1{table traMADol HCl 50 MG HCl 50 MG 06-26 1005 t_as_ne HCl 50 MG 00:00: 00:00 eded} 00 :00 Bupivicaine Bupivicaine 2020-0 No 2.5mg [place] 8-24 Spirit 00:00: - CHI 00 [facility] Kenalog Kenalog 2020-0 No 40mg Common (Triamcinol (Triamcinol 8-24 S pirit one) one) 00:00: - CHI 00 [facility] Bupivicaine Bupivicaine 2020-0 No 2.5mg Common [place] 8-24 Spirit 00:00: - CHI 00 [facility] Kenalog Kenalog 2020-0 No 40mg Common (Triamcinol (Triamcinol 8-24 S pirit one) one) 00:00: - CHI 00 [facility] Bupivicaine Bupivicaine 2020-0 No 2.5mg Common [place] 8-24 Spirit 00:00: - CHI 00 [facility] Kenalog Kenalog 2020-0 No 40mg Common (Triamcinol (Triamcinol 8-24 S pirit one) one) 00:00: - CHI 00 [facility] Bupivicaine Bupivicaine 2020-0 No 2.5mg Common [place] 8-24 Spirit 00:00: - CHI 00 [facility] Kenalog Kenalog 2020-0 No 40mg Common (Triamcinol (Triamcinol 8-24 S pirit one) one) 00:00: - CHI 00 [facility] Bupivicaine Bupivicaine 2020-0 No 2.5mg Common [place] 8-24 Spirit 00:00: - CHI 00 [facility] Kenalog Kenalog 2020-0 No 40mg Common (Triamcinol (Triamcinol 8-24 S pirit one) one) 00:00: - CHI 00 [facility] Bupivicaine Bupivicaine 2020-0 No 2.5mg Common [place] 8-24 Spirit 00:00: - CHI 00 [facility] Kenalog Kenalog 2020-0 No 40mg Common (Triamcinol (Triamcinol 8-24 S pirit one) one) 00:00: - CHI 00 [facility] Bupivicaine Bupivicaine 1-0 No 2.5mg Common [place] 8-24 Spirit 00:00: - CHI 00 [facility] Kenalog Kenalog 2020-0 No 40mg Common (Triamcinol (Triamcinol 8-24 S pirit one) one) 00:00: - CHI 00 [facility] Bupivicaine Bupivicaine 1-0 No 2.5mg Common [place] 8-24 Spirit 00:00: - CHI 00 [facility] Kenalog Kenalog 2020-0 No 40mg Common (Triamcinol (Triamcinol 8-24 S pirit one) one) 00:00: - CHI 00 [facility] Bupivicaine Bupivicaine 2020-0 No 2.5mg Common [place] 8-24 Spirit 00:00: - CHI 00 [facility] Kenalog Kenalog 2020-0 No 40mg Common (Triamcinol (Triamcinol 8-24 S pirit one) one) 00:00: - CHI 00 [facility] Bupivicaine Bupivicaine 2020-0 No 2.5mg Common [place] 8-24 Spirit 00:00: - CHI 00 [facility] Kenalog Kenalog 2020-0 No 40mg Common (Triamcinol (Triamcinol 8-24 S pirit one) one) 00:00: - CHI 00 [facility] atorvastati 2018-0 Yes 80mg Take 1 Univ [...] mouth [place] 00 daily. Medical Branch isosorbide 0 Yes 30mg Take 1 Unive rs mononitrate [...] (two) Medical times Branch daily. aspirin 81 Yes 81mg Take 1 Unive [...] mouth [place] 00 daily. Medical Branch lisinopril 2018- Yes 2.5mg Take 1 Univ ers 2.5 mg 4-30 tablet by ity of tablet 00:00: mouth [place] 00 daily. Medical Branch aspirin 81 Yes 81mg Take 1 Unive rs mg chewable 4-30 tablet by ity of tablet 00:00: mouth [place] 00 daily. Medical Branch lisinopril 2018 Yes 2.5mg Take 1 Univ ers 2.5 mg 4-30 tablet by ity of tablet 00:00: mouth [place] 00 daily. Medical Branch metoprolol 2017-2021- No 50mg Take 1 Univ ers succinate [...] 00 (two) Medical times Branch daily. sulindac 2021- No 200mg Take 1 Unive rs (CLINORIL) 8-15 08-26 tablet by ity of 200 mg 00:00: 00:00 mouth 2 [place] tablet 00 :00 (two) Medical times Branch daily. Lisinopril Lisinopril No Lisinopril 2.5 MG 2.5 MG 2.5 MG Iron Iron No Iron tiZANidine tiZANidine No tiZANidine HCl HCl HCl Metoprolol Metoprolol No 1{table BID Metoprolol Succinate Succinate t} Succinate ER 50 MG ER 50 MG ER 50 MG EpiPen EpiPen No EpiPen Atorvastati Atorvastati No 1{table QD Atorvastat n Calcium n Calcium t} in Calcium 40 MG 40 MG 40 MG Metoprolol Metoprolol No 1{table BID Metoprolol Succinate Succinate t} Succinate ER 50 MG ER 50 MG ER 50 MG Vitamin D3 Vitamin D3 No 1{table QD Vitamin D3 125 MCG 125 MCG t} 125 MCG (5000 UT) (5000 UT) (5000 UT) traMADol traMADol No 2{table traMADol HCl 50 MG HCl 50 MG ts} HCl 50 MG Lisinopril Lisinopril No 1{table QD Lisinopril 2.5 MG 2.5 MG t} 2.5 MG Vitamin C Vitamin C No Vitamin C Vitamin D3 Vitamin D3 No 1{table QD Vitamin D3 125 MCG 125 MCG t} 125 MCG (5000 UT) (5000 UT) (5000 UT) traMADol traMADol No 2{table traMADol HCl 50 MG HCl 50 MG ts} HCl 50 MG Atorvastati Atorvastati No Atorvastat n Calcium n Calcium in Calcium 40 MG 40 MG 40 MG Atorvastati Atorvastati No 1{table QD Atorvastat n Calcium n Calcium t} in Calcium 40 MG 40 MG 40 MG Iron Iron No Iron Magnesium Magnesium No Magnesium tiZANidine tiZANidine No tiZANidine HCl HCl HCl EpiPen EpiPen No EpiPen Lisinopril Lisinopril No Lisinopril 2.5 MG 2.5 MG 2.5 MG Metoprolol Metoprolol No 1{table BID Metoprolol Succinate Succinate t} Succinate ER 50 MG ER 50 MG ER 50 MG Lisinopril Lisinopril No 1{table QD Lisinopril 2.5 MG 2.5 MG t} 2.5 MG Vitamin C Vitamin C No Vitamin C Iron Iron No Iron Metoprolol Metoprolol No Metoprolol Succinate Succinate Succinate ER 50 MG ER 50 MG ER 50 MG Atorvastati Atorvastati No Atorvastat n Calcium n Calcium in Calcium 40 MG 40 MG 40 MG Metoprolol Metoprolol No 1{table BID Metoprolol Succinate Succinate t} Succinate ER 50 MG ER 50 MG ER 50 MG EpiPen EpiPen No EpiPen tiZANidine tiZANidine No tiZANidine HCl HCl HCl Lisinopril Lisinopril No Lisinopril 2.5 MG 2.5 MG 2.5 MG Lisinopril Lisinopril No 1{table QD Lisinopril 2.5 MG 2.5 MG t} 2.5 MG Vitamin C Vitamin C No Vitamin C Magnesium Magnesium No Magnesium traMADol traMADol No 2{table traMADol HCl 50 MG HCl 50 MG ts} HCl 50 MG Atorvastati Atorvastati No 1{table QD Atorvastat n Calcium n Calcium t} in Calcium 40 MG 40 MG 40 MG Vitamin D3 Vitamin D3 No 1{table QD Vitamin D3 125 MCG 125 MCG t} 125 MCG (5000 UT) (5000 UT) (5000 UT) Lisinopril Lisinopril No Lisinopril 2.5 MG 2.5 MG 2.5 MG tiZANidine tiZANidine No tiZANidine HCl HCl HCl Vitamin C Vitamin C No Vitamin C traMADol traMADol No 2{table traMADol HCl 50 MG HCl 50 MG ts} HCl 50 MG Vitamin D3 Vitamin D3 No 1{table QD Vitamin D3 125 MCG 125 MCG t} 125 MCG (5000 UT) (5000 UT) (5000 UT) Atorvastati Atorvastati No Atorvastat n Calcium n Calcium in Calcium 40 MG 40 MG 40 MG Iron Iron No Iron Metoprolol Metoprolol No 1{table BID Metoprolol Succinate Succinate t} Succinate ER 50 MG ER 50 MG ER 50 MG EpiPen EpiPen No EpiPen Metoprolol Metoprolol No Metoprolol Succinate Succinate Succinate ER 50 MG ER 50 MG ER 50 MG Magnesium Magnesium No Magnesium Vitamin C Vitamin C No Vitamin C Lisinopril Lisinopril No Lisinopril 2.5 MG 2.5 MG 2.5 MG EpiPen EpiPen No EpiPen Metoprolol Metoprolol No Metoprolol Succinate Succinate Succinate ER 50 MG ER 50 MG ER 50 MG Atorvastati Atorvastati No Atorvastat n Calcium n Calcium in Calcium 40 MG 40 MG 40 MG Atorvastati Atorvastati No 1{table QD Atorvastat n Calcium n Calcium t} in Calcium 40 MG 40 MG 40 MG traMADol traMADol No 2{table traMADol HCl 50 MG HCl 50 MG ts} HCl 50 MG Iron Iron No Iron Metoprolol Metoprolol No 1{table BID Metoprolol Succinate Succinate t} Succinate ER 50 MG ER 50 MG ER 50 MG Vitamin D3 Vitamin D3 No 1{table QD Vitamin D3 125 MCG 125 MCG t} 125 MCG (5000 UT) (5000 UT) (5000 UT) Lisinopril Lisinopril No 1{table QD Lisinopril 2.5 MG 2.5 MG t} 2.5 MG tiZANidine tiZANidine No tiZANidine HCl HCl HCl Magnesium Magnesium No Magnesium Vitamin C Vitamin C No Vitamin C Lisinopril Lisinopril No Lisinopril 2.5 MG 2.5 MG 2.5 MG EpiPen EpiPen No EpiPen Metoprolol Metoprolol No Metoprolol Succinate Succinate Succinate ER 50 MG ER 50 MG ER 50 MG Atorvastati Atorvastati No Atorvastat n Calcium n Calcium in Calcium 40 MG 40 MG 40 MG Atorvastati Atorvastati No 1{table QD Atorvastat n Calcium n Calcium t} in Calcium 40 MG 40 MG 40 MG traMADol traMADol No 2{table traMADol HCl 50 MG HCl 50 MG ts} HCl 50 MG Iron Iron No Iron Metoprolol Metoprolol No 1{table BID Metoprolol Succinate Succinate t} Succinate ER 50 MG ER 50 MG ER 50 MG Vitamin D3 Vitamin D3 No 1{table QD Vitamin D3 125 MCG 125 MCG t} 125 MCG (5000 UT) (5000 UT) (5000 UT) Lisinopril Lisinopril No 1{table QD Lisinopril 2.5 MG 2.5 MG t} 2.5 MG tiZANidine tiZANidine No tiZANidine HCl HCl HCl Magnesium Magnesium No Magnesium traMADol traMADol No 2{table traMADol HCl 50 MG HCl 50 MG ts} HCl 50 MG Metoprolol Metoprolol No Metoprolol Succinate Succinate Succinate ER 50 MG ER 50 MG ER 50 MG Atorvastati Atorvastati No Atorvastat n Calcium n Calcium in Calcium 40 MG 40 MG 40 MG EpiPen EpiPen No EpiPen Magnesium Magnesium No Magnesium Lisinopril Lisinopril No 1{table QD Lisinopril 2.5 MG 2.5 MG t} 2.5 MG Vitamin C Vitamin C No Vitamin C Lisinopril Lisinopril No Lisinopril 2.5 MG 2.5 MG 2.5 MG Metoprolol Metoprolol No 1{table BID Metoprolol Succinate Succinate t} Succinate ER 50 MG ER 50 MG ER 50 MG tiZANidine tiZANidine No tiZANidine HCl HCl HCl Atorvastati Atorvastati No 1{table QD Atorvastat n Calcium n Calcium t} in Calcium 40 MG 40 MG 40 MG Iron Iron No Iron Vitamin D3 Vitamin D3 No 1{table QD Vitamin D3 125 MCG 125 MCG t} 125 MCG (5000 UT) (5000 UT) (5000 UT) traMADol traMADol No 2{table traMADol HCl 50 MG HCl 50 MG ts} HCl 50 MG Metoprolol Metoprolol No Metoprolol Succinate Succinate Succinate ER 50 MG ER 50 MG ER 50 MG Atorvastati Atorvastati No Atorvastat n Calcium n Calcium in Calcium 40 MG 40 MG 40 MG EpiPen EpiPen No EpiPen Magnesium Magnesium No Magnesium Lisinopril Lisinopril No 1{table QD Lisinopril 2.5 MG 2.5 MG t} 2.5 MG Vitamin C Vitamin C No Vitamin C Lisinopril Lisinopril No Lisinopril 2.5 MG 2.5 MG 2.5 MG Metoprolol Metoprolol No 1{table BID Metoprolol Succinate Succinate t} Succinate ER 50 MG ER 50 MG ER 50 MG tiZANidine tiZANidine No tiZANidine HCl HCl HCl Atorvastati Atorvastati No 1{table QD Atorvastat n Calcium n Calcium t} in Calcium 40 MG 40 MG 40 MG Iron Iron No Iron Vitamin D3 Vitamin D3 No 1{table QD Vitamin D3 125 MCG 125 MCG t} 125 MCG (5000 UT) (5000 UT) (5000 UT) Vitamin C Vitamin C No Vitamin C Iron Iron No Iron Metoprolol Metoprolol No Metoprolol Succinate Succinate Succinate ER 50 MG ER 50 MG ER 50 MG tiZANidine tiZANidine No tiZANidine HCl HCl HCl Lisinopril Lisinopril No Lisinopril 2.5 MG 2.5 MG 2.5 MG Gabapentin Gabapentin No 1{capsu QD Gabapentin 300 MG 300 MG le} 300 MG Atorvastati Atorvastati No 1{table QD Atorvastat n Calcium n Calcium t} in Calcium 40 MG 40 MG 40 MG traMADol traMADol No 2{table traMADol HCl 50 MG HCl 50 MG ts} HCl 50 MG Magnesium Magnesium No Magnesium Atorvastati Atorvastati No Atorvastat n Calcium n Calcium in Calcium 40 MG 40 MG 40 MG EpiPen EpiPen No EpiPen Metoprolol Metoprolol No 1{table BID Metoprolol Succinate Succinate t} Succinate ER 50 MG ER 50 MG ER 50 MG Lisinopril Lisinopril No 1{table QD Lisinopril 2.5 MG 2.5 MG t} 2.5 MG Vitamin D3 Vitamin D3 No 1{table QD Vitamin D3 125 MCG 125 MCG t} 125 MCG (5000 UT) (5000 UT) (5000 UT) traMADol traMADol No 2{table traMADol HCl 50 MG HCl 50 MG ts} HCl 50 MG Iron Iron No Iron Magnesium Magnesium No Magnesium EpiPen EpiPen No EpiPen tiZANidine tiZANidine No tiZANidine HCl HCl HCl Atorvastati Atorvastati No Atorvastat n Calcium n Calcium in Calcium 40 MG 40 MG 40 MG Atorvastati Atorvastati No 1{table QD Atorvastat n Calcium n Calcium t} in Calcium 40 MG 40 MG 40 MG Vitamin C Vitamin C No Vitamin C Lisinopril Lisinopril No Lisinopril 2.5 MG 2.5 MG 2.5 MG Vitamin D3 Vitamin D3 No 1{table QD Vitamin D3 125 MCG 125 MCG t} 125 MCG (5000 UT) (5000 UT) (5000 UT) Gabapentin Gabapentin No 1{capsu QD Gabapentin 300 MG 300 MG le} 300 MG Metoprolol Metoprolol No Metoprolol Succinate Succinate Succinate ER 50 MG ER 50 MG ER 50 MG Vitamin D3 Vitamin D3 No 1{table QD Vitamin D3 125 MCG 125 MCG t} 125 MCG (5000 UT) (5000 UT) (5000 UT) Gabapentin Gabapentin No 1{capsu QD Gabapentin 300 MG 300 MG le} 300 MG Clopidogrel Clopidogrel No 1{table QD Clopidogre Bisulfate Bisulfate t} l 75 MG 75 MG Bisulfate 75 MG Lisinopril Lisinopril No 1{table QD Lisinopril 2.5 MG 2.5 MG t} 2.5 MG Iron Iron No Iron Magnesium Magnesium No Magnesium EpiPen EpiPen No EpiPen Aspirin 81 Aspirin 81 No 1{table QD Aspirin 81 MG MG t} MG Lisinopril Lisinopril No Lisinopril 2.5 MG 2.5 MG 2.5 MG Atorvastati Atorvastati No 1{table QD Atorvastat n Calcium n Calcium t} in Calcium 40 MG 40 MG 40 MG traMADol traMADol No 2{table traMADol HCl 50 MG HCl 50 MG ts} HCl 50 MG Metoprolol Metoprolol No Metoprolol Succinate Succinate Succinate ER 50 MG ER 50 MG ER 50 MG Folic Acid Folic Acid No 1{table QD Folic Acid 1 MG 1 MG t} 1 MG Metoprolol Metoprolol No 1{table BID Metoprolol Succinate Succinate t} Succinate ER 50 MG ER 50 MG ER 50 MG Vitamin C Vitamin C No Vitamin C Vitamin D3 Vitamin D3 No 1{table QD Vitamin D3 125 MCG 125 MCG t} 125 MCG (5000 UT) (5000 UT) (5000 UT) Gabapentin Gabapentin No 1{capsu QD Gabapentin 300 MG 300 MG le} 300 MG Clopidogrel Clopidogrel No 1{table QD Clopidogre Bisulfate Bisulfate t} l 75 MG 75 MG Bisulfate 75 MG Lisinopril Lisinopril No 1{table QD Lisinopril 2.5 MG 2.5 MG t} 2.5 MG Iron Iron No Iron Magnesium Magnesium No Magnesium EpiPen EpiPen No EpiPen Aspirin 81 Aspirin 81 No 1{table QD Aspirin 81 MG MG t} MG Lisinopril Lisinopril No Lisinopril 2.5 MG 2.5 MG 2.5 MG Metoprolol Metoprolol No 1{table BID Metoprolol Succinate Succinate t} Succinate ER 50 MG ER 50 MG ER 50 MG Atorvastati Atorvastati No Atorvastat n Calcium n Calcium in Calcium 40 MG 40 MG 40 MG Metoprolol Metoprolol No Metoprolol Succinate Succinate Succinate ER 50 MG ER 50 MG ER 50 MG Folic Acid Folic Acid No 1{table QD Folic Acid 1 MG 1 MG t} 1 MG traMADol traMADol No 2{table traMADol HCl 50 MG HCl 50 MG ts} HCl 50 MG Vitamin C Vitamin C No Vitamin C Lisinopril Lisinopril No 1{table QD Lisinopril 2.5 MG 2.5 MG t} 2.5 MG Folic Acid Folic Acid No 1{table QD Folic Acid 1 MG 1 MG t} 1 MG traMADol traMADol No 2{table traMADol HCl 50 MG HCl 50 MG ts} HCl 50 MG Vitamin C Vitamin C No Vitamin C Vitamin D3 Vitamin D3 No 1{table QD Vitamin D3 125 MCG 125 MCG t} 125 MCG (5000 UT) (5000 UT) (5000 UT) Aspirin 81 Aspirin 81 No 1{table QD Aspirin 81 MG MG t} MG Atorvastati Atorvastati No Atorvastat n Calcium n Calcium in Calcium 40 MG 40 MG 40 MG Iron Iron No Iron Gabapentin Gabapentin No 1{capsu QD Gabapentin 300 MG 300 MG le} 300 MG EpiPen EpiPen No EpiPen Clopidogrel Clopidogrel No 1{table QD Clopidogre Bisulfate Bisulfate t} l 75 MG 75 MG Bisulfate 75 MG Atorvastati Atorvastati No 1{table QD Atorvastat n Calcium n Calcium t} in Calcium 40 MG 40 MG 40 MG Metoprolol Metoprolol No 1{table QD Metoprolol Succinate Succinate t} Succinate ER 50 MG ER 50 MG ER 50 MG Magnesium Magnesium No Magnesium Lisinopril Lisinopril No 1{table QD Lisinopril 2.5 MG 2.5 MG t} 2.5 MG Folic Acid Folic Acid No 1{table QD Folic Acid 1 MG 1 MG t} 1 MG traMADol traMADol No 2{table traMADol HCl 50 MG HCl 50 MG ts} HCl 50 MG Vitamin C Vitamin C No Vitamin C Vitamin D3 Vitamin D3 No 1{table QD Vitamin D3 125 MCG 125 MCG t} 125 MCG (5000 UT) (5000 UT) (5000 UT) Aspirin 81 Aspirin 81 No 1{table QD Aspirin 81 MG MG t} MG Atorvastati Atorvastati No Atorvastat n Calcium n Calcium in Calcium 40 MG 40 MG 40 MG Iron Iron No Iron Gabapentin Gabapentin No 1{capsu QD Gabapentin 300 MG 300 MG le} 300 MG EpiPen EpiPen No EpiPen Clopidogrel Clopidogrel No 1{table QD Clopidogre Bisulfate Bisulfate t} l 75 MG 75 MG Bisulfate 75 MG Atorvastati Atorvastati No 1{table QD Atorvastat n Calcium n Calcium t} in Calcium 40 MG 40 MG 40 MG Metoprolol Metoprolol No 1{table QD Metoprolol Succinate Succinate t} Succinate ER 50 MG ER 50 MG ER 50 MG Magnesium Magnesium No Magnesium traMADol traMADol No 2{table traMADol HCl 50 MG HCl 50 MG ts} HCl 50 MG Metoprolol Metoprolol No 1{table QD Metoprolol Succinate Succinate t} Succinate ER 50 MG ER 50 MG ER 50 MG EpiPen EpiPen No EpiPen Lisinopril Lisinopril No 1{table QD Lisinopril 2.5 MG 2.5 MG t} 2.5 MG Atorvastati Atorvastati No Atorvastat n Calcium n Calcium in Calcium 40 MG 40 MG 40 MG Atorvastati Atorvastati No 1{table QD Atorvastat n Calcium n Calcium t} in Calcium 40 MG 40 MG 40 MG Clopidogrel Clopidogrel No 1{table QD Clopidogre Bisulfate Bisulfate t} l 75 MG 75 MG Bisulfate 75 MG Vitamin D3 Vitamin D3 No 1{table QD Vitamin D3 125 MCG 125 MCG t} 125 MCG (5000 UT) (5000 UT) (5000 UT) Magnesium Magnesium No Magnesium Vitamin C Vitamin C No Vitamin C Aspirin 81 Aspirin 81 No 1{table QD Aspirin 81 MG MG t} MG Iron Iron No Iron Folic Acid Folic Acid No 1{table QD Folic Acid 1 MG 1 MG t} 1 MG Gabapentin Gabapentin No 1{capsu BID Gabapentin 300 MG 300 MG le} 300 MG traMADol traMADol No 2{table traMADol HCl 50 MG HCl 50 MG ts} HCl 50 MG Metoprolol Metoprolol No 1{table QD Metoprolol Succinate Succinate t} Succinate ER 50 MG ER 50 MG ER 50 MG EpiPen EpiPen No EpiPen Lisinopril Lisinopril No 1{table QD Lisinopril 2.5 MG 2.5 MG t} 2.5 MG Atorvastati Atorvastati No Atorvastat n Calcium n Calcium in Calcium 40 MG 40 MG 40 MG Atorvastati Atorvastati No 1{table QD Atorvastat n Calcium n Calcium t} in Calcium 40 MG 40 MG 40 MG Clopidogrel Clopidogrel No 1{table QD Clopidogre Bisulfate Bisulfate t} l 75 MG 75 MG Bisulfate 75 MG Vitamin D3 Vitamin D3 No 1{table QD Vitamin D3 125 MCG 125 MCG t} 125 MCG (5000 UT) (5000 UT) (5000 UT) Magnesium Magnesium No Magnesium Vitamin C Vitamin C No Vitamin C Aspirin 81 Aspirin 81 No 1{table QD Aspirin 81 MG MG t} MG Iron Iron No Iron Folic Acid Folic Acid No 1{table QD Folic Acid 1 MG 1 MG t} 1 MG Gabapentin Gabapentin No 1{capsu BID Gabapentin 300 MG 300 MG le} 300 MG Clopidogrel Clopidogrel No 1{table QD Clopidogre Bisulfate Bisulfate t} l 75 MG 75 MG Bisulfate 75 MG Vitamin D3 Vitamin D3 No 1{table QD Vitamin D3 125 MCG 125 MCG t} 125 MCG (5000 UT) (5000 UT) (5000 UT) EpiPen EpiPen No EpiPen Metoprolol Metoprolol No 1{table QD Metoprolol Succinate Succinate t} Succinate ER 50 MG ER 50 MG ER 50 MG Atorvastati Atorvastati No Atorvastat n Calcium n Calcium in Calcium 40 MG 40 MG 40 MG Aspirin 81 Aspirin 81 No 1{table QD Aspirin 81 MG MG t} MG Atorvastati Atorvastati No 1{table QD Atorvastat n Calcium n Calcium t} in Calcium 40 MG 40 MG 40 MG Folic Acid Folic Acid No 1{table QD Folic Acid 1 MG 1 MG t} 1 MG Gabapentin Gabapentin No 1{capsu BID Gabapentin 300 MG 300 MG le} 300 MG traMADol traMADol No 2{table traMADol HCl 50 MG HCl 50 MG ts} HCl 50 MG Magnesium Magnesium No Magnesium Iron Iron No Iron Vitamin C Vitamin C No Vitamin C Lisinopril Lisinopril No Lisinopril 2.5 MG 2.5 MG 2.5 MG Vitamin D3 Vitamin D3 No 1{table QD Vitamin D3 125 MCG 125 MCG t} 125 MCG (5000 UT) (5000 UT) (5000 UT) EpiPen EpiPen No EpiPen Magnesium Magnesium No Magnesium Clopidogrel Clopidogrel No 1{table QD Clopidogre Bisulfate Bisulfate t} l 75 MG 75 MG Bisulfate 75 MG Gabapentin Gabapentin No 1{capsu BID Gabapentin 300 MG 300 MG le} 300 MG Aspirin 81 Aspirin 81 No 1{table QD Aspirin 81 MG MG t} MG Atorvastati Atorvastati No Atorvastat n Calcium n Calcium in Calcium 40 MG 40 MG 40 MG Lisinopril Lisinopril No Lisinopril 2.5 MG 2.5 MG 2.5 MG Metoprolol Metoprolol No 1{table QD Metoprolol Succinate Succinate t} Succinate ER 50 MG ER 50 MG ER 50 MG traMADol traMADol No 2{table traMADol HCl 50 MG HCl 50 MG ts} HCl 50 MG Lisinopril Lisinopril No 1{table QD Lisinopril 2.5 MG 2.5 MG t} 2.5 MG Atorvastati Atorvastati No 1{table QD Atorvastat n Calcium n Calcium t} in Calcium 40 MG 40 MG 40 MG Folic Acid Folic Acid No 1{table QD Folic Acid 1 MG 1 MG t} 1 MG Iron Iron No Iron Vitamin C Vitamin C No Vitamin C traMADol traMADol No 2{table traMADol HCl 50 MG HCl 50 MG ts} HCl 50 MG Iron Iron No Iron Vitamin D3 Vitamin D3 No 1{table QD Vitamin D3 125 MCG 125 MCG t} 125 MCG (5000 UT) (5000 UT) (5000 UT) Vitamin C Vitamin C No Vitamin C EpiPen EpiPen No EpiPen Atorvastati Atorvastati No Atorvastat n Calcium n Calcium in Calcium 40 MG 40 MG 40 MG Magnesium Magnesium No Magnesium tiZANidine tiZANidine No tiZANidine HCl HCl HCl Lisinopril Lisinopril No Lisinopril 2.5 MG 2.5 MG 2.5 MG Metoprolol Metoprolol No 1{table BID Metoprolol Succinate Succinate t} Succinate ER 50 MG ER 50 MG ER 50 MG Lisinopril Lisinopril No 1{table QD Lisinopril 2.5 MG 2.5 MG t} 2.5 MG Vitamin D3 Vitamin D3 No 1{table QD Vitamin D3 125 MCG 125 MCG t} 125 MCG (5000 UT) (5000 UT) (5000 UT) Vitamin C Vitamin C No Vitamin C Magnesium Magnesium No Magnesium traMADol traMADol No 2{table traMADol HCl 50 MG HCl 50 MG ts} HCl 50 MG Atorvastati Atorvastati No Atorvastat n Calcium n Calcium in Calcium 40 MG 40 MG 40 MG Atorvastati Atorvastati No 1{table QD Atorvastat n Calcium n Calcium t} in Calcium 40 MG 40 MG 40 MG Immunizations Ordered Filled Immunization Date Status Comments Sour e Immunization Name Name Leland Ha 2021-07-11 Completed [facility] - [facility] (Triamcinolone) 09:32:00 [facility] [facility] 2021-06-26 Completed [facility] - 09:38:00 [facility] Leland Ha 2021-06-26 Completed [facility] - (Triamcinolone) (Triamcinolone) 09:38:00 [facility] [facility] [place] 2021-06-26 Completed [facility] - 09:38:00 [facility] Leland Ha 2021-06-26 Completed [facility] - (Triamcinolone) (Triamcinolone) 09:38:00 [facility] [place] [facility] [place] 2021-06-26 Completed [facility] - 09:38:00 [facility] Leland Ha 2021-06-26 Completed [facility] - (Triamcinolone) (Triamcinolone) 09:38:00 [facility] [facility] [place] 2021-06-26 Completed [facility] - 09:38:00 [facility] Leland Ha 2021-06-26 Completed [facility] - (Triamcinolone) (Triamcinolone) 09:38:00 [facility] [place] [facility] [place] 2021-05-22 Completed [facility] - 08:55:00 [facility] Leland Ha 2021-05-22 Completed [facility] - (Triamcinolone) (Triamcinolone) 08:55:00 [facility] [facility] [place] 2021-05-22 Completed [facility] - 08:55:00 [facility] Leland Ha 2021-05-22 Completed [facility] - (Triamcinolone) (Triamcinolone) 08:55:00 [facility] [facility] [place] 2021-05-22 Completed [facility] - 08:55:00 [facility] Leland Ha 2021-05-22 Completed [facility] - (Triamcinolone) (Triamcinolone) 08:55:00 [facility] [place] [facility] [place] 2021-05-22 Completed [facility] - 08:55:00 [facility] Leland Ha 2021-05-22 Completed [facility] - (Triamcinolone) (Triamcinolone) 08:55:00 [facility] Pneumococcal 2018-01-26 Completed [facility] [...] 00:[facility]00 [place] [facility] PPSV23 (PNEUMOVAX) [facility] Adacel (Tdap) Adacel (Tdap) 2015-01-11 [facility] Adacel (Tdap) Adacel (Tdap) 2015-01-11 [facility]pleted [facility] Adacel (Tdap) Adacel (Tdap) 2015-01-11 [facility]pleted [facility]00 [facility] Adacel (Tdap) Adacel (Tdap) 2015-01-11 [facility]pleted [facility]00 [facility] Adacel (Tdap) Adacel (Tdap) 2015-01-11 [facility]pleted [facility]00 [facility] Adacel (Tdap) Adacel (Tdap) 2015-01-11 [facility]pleted [facility]00 [facility] Adacel (Tdap) Adacel (Tdap) 2015-01-11 [facility]pleted [facility]00 [facility] Adacel (Tdap) Adacel (Tdap) 2015-01-11 [facility]pleted [facility]00 [facility] Adacel (Tdap) Adacel (Tdap) 2015-01-11 [facility]pleted [facility]00 [facility] Adacel (Tdap) Adacel (Tdap) 2015-01-11 [facility]pleted [facility]00 [facility] Adacel (Tdap) Adacel (Tdap) 2015-01-11 [facility]pleted [facility]00 [facility] Adacel (Tdap) Adacel (Tdap) 2015-01-11 Completed [facility]00 [facility] Adacel (Tdap) Adacel (Tdap) 2015-01-11 Completed [facility]00 [facility] Adacel (Tdap) Adacel (Tdap) 2015-01-11 [facility]pleted [facility]00 [facility] Adacel (Tdap) Adacel (Tdap) 2015-01-11 [facility]pleted [facility]00 [facility] Adacel (Tdap) Adacel (Tdap) 2015-01-11 [facility]pleted [facility]00 [facility] Adacel (Tdap) Adacel (Tdap) 2015-01-11 [facility]pleted [facility]00 [facility] Adacel (Tdap) Adacel (Tdap) 2015-01-11 Completed [facility]00 [facility] Adacel (Tdap) Adacel (Tdap) 2015-01-11 [facility]pleted [facility]00 [facility] Adacel (Tdap) Adacel (Tdap) 2015-01-11 [facility]00 [facility] Vital Signs Vital Name Observation Time Observation Value Comments Source Systolic blood 2022-08-30 20:50:00 92 mm[Hg] [facility] Diastolic blood 2022-08-30 20:50:00 64 mm[Hg] Unive rsity of pressure [facility] Heart rate 2022-08-30 20:50:00 53 /min [facility] Respiratory rate 2022-08-30 20:50:00 20 /min [facility] Oxygen saturation in 2022-08-30 20:50:00 94 /min [facility] Arterial blood by [facility] Pulse oximetry Branch Body temperature 2022-08-30 13:47:00 35.67 [facility] height 2022-08-30 13:47:[address] [facility] Body weight 2022-08-30 13:47:[address] [facility] BMI 2022-08-30 13:47:00 30.27 kg/m2 [facility] height 2022-07-31 14:40:00 66 [in_i] [facility] weight 2022-07-31 14:40:00 201.0 [lb_av] Common [facility] temperature 2022-07-31 14:40:00 98.2 [degF] [facility] bmi 2022-07-31 14:40:00 32.44 kg/m2 [facility] oximetry 2022-07-31 14:40:00 97 % [facility] respiratory rate 2022-07-31 14:40:00 17 /min [facility] blood pressure 2022-07-31 14:40:00 135 mm[Hg] Common [facility] - systolic [facility] blood pressure 2022-07-31 14:40:00 72 mm[Hg] Common [facility] - diastolic [facility] Systolic blood 2022-05-24 20:23:00 112 mm[Hg] [facility] Diastolic blood 2022-05-24 20:23:00 65 mm[Hg] Unive rsity of pressure [facility] Heart rate 2022-05-24 20:23:00 68 /min [facility] Body temperature 2022-05-24 20:23:00 35.83 [facility] 2022-05-24 20:23:00 18 /min [facility] O[facility] saturation in 2022-05-24 20:23:00 96 /min [facility] blood by [facility] Pulse oximetry [facility] Body height 2022-05-23 19:38:00 175.3 cm [facility] Body weight 2022-05-23 19:38:00 92.987 kg [facility] BMI 2022-05-23 19:38:00 30.27 kg/m2 [facility] height 2022-04-18 10:00:00 66 [in_i] [facility] weight 2022-04-18 10:00:00 209.0 [lb_av] [facility] temperature 2022-04-18 10:00:00 98.1 [degF] [facility] bmi 2022-04-18 10:00:00 33.73 kg/m2 [facility] oximetry 2022-04-18 10:00:00 95 % [facility] respiratory rate 2022-04-18 10:00:00 16 /min Comm on [facility] blood pressure 2022-04-18 10:00:00 132 mm[Hg] Common [facility] - systolic [facility] blood pressure 2022-04-18 10:00:00 73 mm[Hg] Common [facility] - diastolic [facility] height 2022-04-04 11:10:00 66 [in_i] Common [facility] weight 2022-04-04 11:10:00 197 [lb_av] [facility] temperature 2022-04-04 11:10:00 98 [degF] [facility] bmi 2022-04-04 11:10:00 31.79 kg/m2 [facility] blood pressure 2022-04-04 11:10:00 125 mm[Hg] [facility] blood pressure 2022-04-04 11:10:00 65 mm[Hg] [facility] - diastolic [facility] height 2022-02-14 08:20:00 66 [in_i] [facility] weight 2022-02-14 08:20:00 197.3 [lb_av] Common [facility] temperature 2022-02-14 08:20:00 97.3 [degF] [facility] bmi 2022-02-14 08:20:00 31.84 kg/m2 [facility] oximetry 2022-02-14 08:20:00 96 % Common [facility] respiratory rate 2022-02-14 08:20:00 16 /min Comm on [facility] blood pressure 2022-02-14 08:20:00 114 mm[Hg] Common [facility] - systolic [facility] blood pressure 2022-02-14 08:20:00 62 mm[Hg] [facility] - diastolic [facility] height 2022-01-17 08:10:00 66 [in_i] [facility] weight 2022-01-17 08:10:00 195.6 [lb_av] [facility] temperature 2022-01-17 08:10:00 98.3 [degF] [facility] bmi 2022-01-17 08:10:00 31.57 kg/m2 [facility] [facility] oximetry 2022-01-17 08:10:00 98 % [facility] 2022-01-17 08:10:00 17 /min Comm on [facility] blood pressure 2022-01-17 08:10:00 133 mm[Hg] Common [facility] - systolic [facility] blood pressure 2022-01-17 08:10:00 72 mm[Hg] Common [facility] - diastolic [facility] height 2021-10-16 08:20:00 66 [in_i] Common S pirit [facility] weight 2021-10-16 08:20:00 194.9 [lb_av] Common [facility] temperature 2021-10-16 08:20:00 98.2 [degF] Common [facility] bmi 2021-10-16 08:20:00 31.45 kg/m2 Common S pirit [facility] oximetry 2021-10-16 08:20:00 97 % Common [facility] respiratory rate 2021-10-16 08:20:00 17 /min Comm on [facility] height 2021-10-16 08:20:00 66 [in_i] Common [facility] weight 2021-10-16 08:20:00 194.9 [lb_av] [facility] temperature 2021-10-16 08:20:00 98.2 [degF] Common [facility] bmi 2021-10-16 08:20:00 31.45 kg/m2 [facility] S [facility] oximetry 2021-10-16 08:20:00 97 % [facility] S [facility] respiratory rate 2021-10-16 08:20:00 17 /min Comm on [facility] blood pressure 2021-10-16 08:20:00 132 mm[Hg] Common [facility] - systolic [facility] blood pressure 2021-10-16 08:20:00 77 mm[Hg] Common [facility] diastolic [facility] height 2021-10-08 13:10:00 66 [in_i] Common [facility] weight 2021-10-08 13:10:00 195.3 [lb_av] [facility] temperature 2021-10-08 13:10:00 98.1 [degF] Common [facility] bmi 2021-10-08 13:10:00 31.52 kg/m2 Common S pirit [facility] oximetry 2021-10-08 13:10:00 97 % Common S pirit [facility] respiratory rate 2021-10-08 13:10:00 17 /min Comm on [facility] - [facility] blood pressure 2021-10-08 13:10:00 132 mm[Hg] [facility] - systolic [facility] blood pressure 2021-10-08 13:10:00 73 mm[Hg] [facility] - [facility] Procedures Procedure Date / Time Performing Clinician Source Performed BASIC METABOLIC PANEL 2022-08-30 17:22:00 Gertrude Chinchilla [facility] (NA, K, CL, CO2, GLUCOSE, Medica l Branch BUN, CREATININE, CA) URINALYSIS 2022-08-30 14:21:00 Gertrude Chinchilla [facility] URINE DRUG (IMMUNOASSAY) 2022-08-30 14:21:00 Gertrude Chinchilla [facility] Medical [facility] SCREEN W/O REFLEX XR CHEST 1 VW 2022-08-30 14:04:16 Gertrude Chinchilla [facility] MAGNESIUM 2022-08-30 14:03:00 Gertrude Chinchilla [facility] TROPONIN I 2022-08-30 14:03:00 Gertrude Chinchilla [facility] COMP. METABOLIC PANEL 2022-08-30 14:03:00 Gertrude Chinchilla [facility] ([id number]) [facility] ETHANOL 2022-08-30 14:03:00 Gertrude Chinchilla [facility] CBC WITH DIFF 2022-08-30 14:03:00 Gertrude Chinchilla [facility] XR CHEST 1 VW 2022-05-24 11:38:14 Alisa [facility] MAGNESIUM 2022-05-24 08:56:00 Alisa [facility] TROPONIN I 2022-05-24 08:56:00 Alisa [facility] BASIC METABOLIC PANEL 2022-05-24 08:56:00 Callie Cuellar [facility] (NA, K, CL, CO2, GLUCOSE, Medica l Branch BUN, CREATININE, CA) CBC WITH DIFF 2022-05-24 08:56:00 Alisa [facility] TROPONIN I 2022-05-24 03:51:00 [facility]ie [facility] XR KUB 2022-05-23 22:25:58 Callie [facility]ellar [facility] URINALYSIS 2022-05-23 22:15:00 Gertrude Chinchilla [facility] CREATININE, URINE RANDOM 2022-05-23 22:15:00 Callie Cuellar [facility] SODIUM, URINE RANDOM 2022-05-23 22:15:[address] [facility] URINE DRUG (IMMUNOASSAY) 2022-05-23 22:15:00 Gertrude Chinchilla [facility] SCREEN W/O REFLEX TRANSTHORACIC ECHO (TTE) 2022-05-23 20:33:00 Callie Cuellar [facility] COVID-19 (ID NOW RAPID 2022-05-23 16:39:00 Gertrude Chinchilla Un [facility] TESTING) Medical Branch LAB ONLY COVID 2022-05-23 16:39:00 Gertrude Chinchilla [facility] INTERPRETATION [facility] TROPONIN I 2022-05-23 13:42:00 Gertrude Chinchilla [facility] COMP. METABOLIC PANEL 2022-05-23 13:42:00 Gertrude Chinchilla [facility] ([id number]) Medical Branch CBC WITH DIFF 2022-05-23 13:42:00 Gertrude Chinchilla [facility] HB ECG ROUTINE & RHYTHM 2022-05-23 13:12:28 [facility] EKG-12 LEAD 2022-05-23 12:44:00 Gertrude Chinchilla [facility] AUTHORIZATION FOR RELEASE 2021-11-12 06:01:00 Doctor Unassigned, [facility] Medical Branch Encounters Start End Encounter Admission Attending Care Care Encounter Source Date/Time Date/Time Type Type Clinicians Facility Department ID 2022-08-16 Outpatient Cody, STLMLC [facility] [id number] Common 15:23:00 [facility] [address] [facility] 2022-07-31 Outpatient Ross, STLMLC STLMLC [id number] Common 14:32:00 Carola [facility] 2022-07-29 Outpatient Ross, STLMLC STLMLC [id number] Common 16:01:01 Carola [facility] 2022-07-19 Outpatient Ross, STLMLC STLMLC [id number] Common 16:30:01 Carola [facility] 2022-07-16 Outpatient Ross, STLMLC STLMLC [id number] Common 10:11:00 Carola [facility] 2022-06-25 Outpatient Ross, STLMLC STLMLC [id number] Common 14:39:00 Carola [facility] 2022-05-16 Outpatient Ross, STLMLC STLMLC [id number] Common 12:11:01 Carola [facility] 2021-10-24 Outpatient Ross, STLMLC STLMLC [id number] Common 13:24:10 Carola [address]776 [facility] 2021-10-24 Outpatient Ross, STLMLC STLMLC [id number] Common 13:06:32 Carola 63104 [facility] 2021-10-24 Outpatient Ross, STLMLC STLMLC [id number] Common 12:40:59 Carola 03123 [facility] 2021-10-24 Outpatient Ross, STLMLC STLMLC [id number] Common 12:30:18 Carola 11681 [facility] 2021-10-24 Outpatient Ross, STLMLC STLMLC [id number] Common 12:29:04 Carola 05553 [facility] 2021-10-24 Outpatient Ross, STLMLC STLMLC [id number] Common 11:52:46 Carola 47770 [facility] 2021-10-24 Outpatient Ross, STLMLC STLMLC [id number] Common 11:44:17 Carola 96053 [facility] 2021-10-24 Outpatient Ross, STLMLC STLMLC [id number] Common 11:37:11 Carola 95058 [facility] 2021-07-28 Emergency [facility] [id number] [facility] 2022-09-04 Outpatient [facility] [id number] Tim 08:12:48 08:12:48 1207 F [place] 2022-09-03 2022-09-03 Outpatient [facility] [id number] Tim 14:40:55 14:40:55 1206 F [place] 2022-08-30 2022-08-30 Emergency X [facility]EN[facility]UN[facility] ERT [id number] Univers 07:45:00 15:39:00 GERTRUDE [facility] 2022-08-30 2022-08-30 Emergency [facility] [id number] Univers 07:45:00 15:39:00 Gertrude LUJAN [id number] [facility] [id number] [facility] [id number] [place] [address] Branch 2022-08-12 2022-08-12 Outpatient [facility] 512 Devoted 00:00:00 00:00:00 _B 1114 Medica l Group 2022-07-31 2022-07-31 OFFICE STLMLC STLMLC [id number] Co mmon 00:00:00 00:00:00 VISIT [facility] PT - CHI LEVEL 4 [facility] 2022-06-21 2022-06-21 Outpatient Cobb_T DMG [facility] [id number] Devoted 00:00:00 00:00:00 0923 Medica l Group 2022-06-20 2022-06-20 [facility] [id number] Devoted 00:00:00 00:00:00 0922 Medica l Group 2022-06-06 2022-06-06 (TEL) STLMLC STLMLC [id number] Co mmon 00:00:00 00:00:00 [facility] 2022-05-27 2022-05-27 Transition SIOBHAN Rollins 1.2.840.114 [id number] Univers 00:00:00 00:00:00 of Care Simón PEREA [id number] ity LAYNE [id number] [facility] [id number] [facility] 403 Branch 2022-05-23 2022-05-24 Outpatient X ALISA [facility] [id number] Univers 07:39:00 17:43:00 CALLIE tony [facility] 2022-05-23 2022-05-24 Emergency Gertrude Chinchilla Agnes [facility] 1.2.8 40.114 [id number] Univers 07:39:00 17:43:00 Callie Cuellar [id number] ity [place] [id number] [facility] [id number] [facility] 081 Branch 2022-05-09 2022-05-09 Outpatient Cobb_T [facility] [id number] Devoted 00:00:00 00:00:00 0811 [facility]ica l Group 2022-04-18 2022-04-18 OFFICE STLMLC STLMLC [id number] Co mmon 00:00:00 00:00:00 VISIT [facility] PT - CHI LEVEL 4 [facility] 2022-04-18 2022-04-18 (TEL) STLMLC STLMLC [id number] Co mmon 00:00:00 00:00:00 Spirit [facility] 2022-04-12 2022-04-12 [facility]patient [facility] [id number] Devoted 03:30:00 03:30:00 0715 Medica l Group 2022-04-10 2022-04-10 Outpatient [facility] [id number] Devoted 04:58:00 04:58:00 0713 Med[facility] l Group 2022-04-04 2022-04-04 (TEL) STLMLC STLMLC [id number] Co mmon 00:00:00 00:00:00 [facility] - [facility] 2022-04-04 2022-04-04 (EST. STLMLC STLMLC [id number] Co mmon 00:00:00 00:00:00 VIDEO) EST Spi rit VIRTUAL - [facility] 2022-03-26 2022-03-26 (TEL) STLMLC STLMLC [id number] Co mmon 00:00:00 00:00:00 [facility] 2022-02-14 2022-02-14 OFFICE STLMLC STLMLC [id number] Co mmon 00:00:00 00:00:00 VISIT Spirit ESTAB PT - CHI LEVEL 5 [facility] 2022-01-22 2022-01-22 (TEL) STLMLC STLMLC [id number] Co mmon 00:00:00 00:00:00 [facility] 2022-01-17 2022-01-17 OFFICE STLMLC STLMLC [id number] Co mmon 00:00:00 00:00:00 VISIT Spirit ESTAB PT - CHI LEVEL 4 [facility] 2021-11-12 2021-11-12 Orders Doctor NIR 1.2.840.114 [id number] Univers 00:00:00 00:00:00 Only Unassigned, SHAI [id number] ity of [place] [facility] [id number] Lauri as [phone] [address] 2021-10-16 2021-10-16 SUB ANNUAL STLMLC STLMLC [id number] Common 00:00:00 00:00:00 MCR Spirit WELLNESS - CHI VISIT [facility] 2021-10-16 2021-10-16 OFFICE STLMLC STLMLC [id number] Co mmon 00:00:00 00:00:00 VISIT Spirit ESTAB PT - CHI LEVEL 4 [facility] 2021-10-09 2021-10-09 Outpatient R NEELA ALBARADO [facility] [id number] Univers 14:20:00 14:20:00 NEELA ALBARADO [facility] 2021-10-09 2021-10-09 (TEL) STLMLC STLMLC [id number] Co mmon 00:00:00 00:00:00 [facility] 2021-10-08 2021-10-08 (HOSP F/U) STLMLC STLMLC [id number] Common 00:00:00 00:00:00 [facility] 2021-10-05 2021-10-05 (TEL) STLMLC STLMLC [id number] Co mmon 00:00:00 00:00:00 [facility] 2021-10-02 2021-10-02 Transition AyoKEVEN larsenDimas 1.2.840.114 [id number] Univers 00:00:00 00:00:00 of Care Simón JULIENY [id number] ity [place] 4.2.7.2.686 [place] [id number] [facility] 403 Branch 2021-10-01 2021-10-01 (TEL) STLMLC STLMLC [id number] Co mmon 00:00:00 00:00:00 [facility] 2021-09-27 2021-09-30 Outpatient X GELYUNM [facility] [id number] Univers 17:38:00 15:22:00 VIKASH [facility] 2021-09-27 2021-09-30 Outpatient X [facility]UNM [facility] [id number] Univers 17:38:00 15:22:00 [facility] 2021-09-27 2021-09-30 Emergency Silva Szymanski [facility] 1.2.840 .114 [id number] Univers 17:38:00 15:22:00 Vikash Grimaldo [id number] ity of [id number] [id number] [facility] 081 Branch 2021-09-19 2021-09-19 Outpatient OWENS_T DMG DMG [id number] Devoted 01:00:00 01:00:00 1222 Medica l Group 2021-09-05 2021-09-05 CAV Tomora 2.16.840. 2.16.840.1. CLAC XU3YAG Devoted 14:30:00 15:30:00 Ruiz [id number] [id number]. RWA Medical [id number] 2021-08-10 2021-08-10 Outpatient OWENS_T DMG [facility] [id number] Devoted 10:31:00 10:31:00 1112 Medica l Group 2021-08-07 2021-08-07 Outpatient CURRY_S DMG G [id number] Devoted 02:14:00 02:14:00 1109 [facility] l Group 2021-07-17 2021-07-17 (TEL) STLMLC STLMLC [id number] Co mmon 00:00:00 00:00:00 [facility] 2021-07-10 2021-07-10 (TEL) STLMLC STLMLC [id number] Co mmon 00:00:00 00:00:00 [facility] 2021-07-04 2021-07-04 (TEL) STLMLC STLMLC [id number] Co mmon 00:00:00 00:00:00 [facility] 2021-06-26 2021-06-26 (TEL) STLMLC STLMLC [id number] Co mmon 00:00:00 00:00:00 [facility] 2021-05-29 2021-05-29 Outpatient STLMLC STLMLC [id number] Common 00:00:00 00:00:00 [facility] 2021-05-22 2021-05-22 Outpatient CURRY_S DMG DMG [id number] Devoted 05:13:00 05:13:00 0824 Medica l Group 2021-05-22 2021-05-22 Outpatient STLMLC STLMLC [id number] Common 00:00:00 00:00:00 [facility] 2021-05-04 2021-05-04 Outpatient STLMLC STLMLC [id number] Common 00:00:00 00:00:00 [facility] 2021-04-30 2021-04-30 Outpatient STLMLC STLMLC [id number] Common 00:00:00 00:00:00 [facility] 2021-04-30 2021-04-30 Outpatient STLMLC STLMLC [id number] Common 00:00:00 00:00:00 [facility] 2021-04-06 2021-04-06 Outpatient STLMLC STLC [id number] Common 00:00:00 00:00:00 [facility] 2021-01-29 2021-01-29 Outpatient DMG DMG [id number] Devoted 06:02:00 06:02:00 0503 Medica l Group 2021-01-18 2021-01-18 Outpatient DMG DMG [id number] Devoted 12:00:00 12:00:00 0422 Medica l Group 2020-08-14 2020-08-14 Emergency [facility] 1.2.840.114 [id number] 14:12:00 15:54:00 Love Messina [place] 350.1.13.10 [place] 4.2.7.2.686 [place] [id number] 2020-08-14 2020-08-14 Emergency [facility] 1.2.840.114 [id number] [facility] 14:12:00 15:54:00 Love Lujan 350.1.13.10 ity of [place] 4.2.7.2.686 [facility] [id number] [facility] 084 Branch Results Test Description Test Time Test Comments Results Result Comments Source BASIC METABOLIC PANEL (NA, K, CL, CO2, GLUCOSE, BUN, 2022-08 18:07:32 CREATININE, CA) Test Item Value Reference Range Interpretation Comme nts NA (test code = 5522670565) 143 mmol/L 135-145 K (test code = 9244075400) 4.1 mmol/L 3.5-5.0 CL (test code = 6999063929) 115 mmol/L 98-108 H CO2 TOTAL (test code = 3624596896) 19 mmol/L 23-31 L AGAP (test code = 4534363594) 2-16 BUN (test code = 7069412042) 33 mg/dL 7-23 H GLUCOSE (test code = 7944033045) 66 mg/dL 70-110 L CREATININE (test code = 1.99 mg/dL 0.60-1.25 H 6712515625) CALCIUM (test code = 6783255745) 8.3 mg/dL 8.6-10.6 L eGFR (test code = 8234390755) mL/min/1.73m2 ISIDORO (test code = ISIDORO) Association of Glomerular Filtration Rate (GFR) and Staging of Kidney Disease* + +-------- + ------+| GFR (mL/min/1.73 m2) ?| With Kidney Damage ?| ?Without Kidney Damage+ +-- + +| ?>90 ?| ?Stage one ?| ? Normal ?+ +------- + -------+| ?60-89 ?| ?Stage two ?| ? Decreased GFR ? + +-------- + ------+| ?30-59 ?| ?Stage three ?| ? Stage three ? + +-------- + ------+| ?15-29 ?| ?Stage four ? | ? Stage four ?+ +------- + -------+| ?<15 (or dialysis) ? ?| ?Stage five ? | ? Stage five ?+ +------- + -------+ *Each stage assumes the associated GFR [...] or abnormalities in imaging tests). Lab Interpretation (test code = Abnormal 18213-9) [facility] [id number] 15:44:49 Test Item Value Reference Interpretation Comments Range TROPONIN I (test 0.004 ng/mL See_Comment [Automated code = 0653539268) message] The system which generated this result [...] biotin. Lab Interpretation Normal (test code = 21791-5) [facility]2022-12-02 15:27:10 ALCOHOL<10mg/dL08/30/2022 9:27 AM [facility]<10 Psdmuawx06-509 Toxic>100 Depression of [place] [employer]>400 Fatalities ReportedB[facility] & [facility] LakewayCOMP. METABOLIC PANEL ([id number]) 2022-08-30 15:24:23 Test Item Value Reference Range Interpretation Comments NA (test code = 144 mmol/L 135-145 9556355728) K (test code = 3.9 mmol/L 3.5-5.0 5268996814) CL (test code = 109 mmol/L 98-108 H 6189124055) CO2 TOTAL (test code = 22 mmol/L 23-31 L 3581870831) AGAP (test code = 2-16 3459319439) BUN (test code = 37 mg/dL 7-23 H 1048427430) GLUCOSE (test code = 86 mg/dL 70-110 6753875892) CREATININE (test code = 2.47 mg/dL 0.60-1.25 H 6882528229) TOTAL BILI (test code = 0.8 mg/dL 0.1-1.5 3047576594) CALCIUM (test code = 9.3 mg/dL 8.6-10.6 2166289432) T PROTEIN (test code = 7.0 g/dL 6.3-8.2 1943116890) ALBUMIN (test code = 4.4 g/dL 3.5-5.0 7774026396) ALK PHOS (test code = 119 U/L 34-122 4623738927) ALTv (test code = 22 U/L 5-50 1742-6) AST(SGOT) (test code = 38 U/L 13-40 5970921086) eGFR (test code = mL/min/1.73m2 9266089613) ISIDORO (test code = ISIDORO) Association of [...] tests). Lab Interpretation Abnormal (test code = 74323-7) [facility]2022-12-02 15:24:23 Test Item Value Reference Range Interpretation Comments MAGNESIUM (test code = 7504431478) 2.1 mg/dL 1.7-2.4 Lab Interpretation (test code = Normal 29887-9) [facility] WITH [id number] 14:36:33 Test Item Value Reference Range Interpretation Comments WBC (test code = See_Comment [Automated 8561-2) message] The sy stem which generated this result transmitted reference range : 4.20 - 10.70 10*3/?L. The reference range was not used to interpret this result as normal/abnormal . RBC (test code = See_Comment [Automated 745-4) message] The sy stem which generated this result transmitted reference range : 4.26 - 5.52 10*6/?L. The reference range was not used to interpret this result as normal/abnormal . HGB (test code = 12.9 g/dL 12.2-16.4 718-7) HCT (test code = 39.4 % 38.4-49.3 4544-3) MCV (test code = 92.1 fL 81.7-95.6 787-2) MCH (test code = 30.1 pg 26.1-32.7 785-6) MCHC (test code = 32.7 g/dL 31.2-35.0 786-4) RDW-SD (test code = 44.7 fL 38.5-51.6 39852-1) RDW-CV (test code = 13.2 % 12.1-15.4 788-0) PLT (test code = See_Comment [Automated 777-3) message] The sy stem which generated this result transmitted reference range : 150 - 328 10*3/ ?L. The reference r cuong was not used to interpret this result as normal/abnormal . MPV (test code = 9.7 fL 9.8-13.0 L 25808-0) NRBC/100 WBC (test See_Comment [Automat ed code = 7317459499) message] The system which generated this result transmitted reference range : 0.0 - 10.0 /100 WBCs. The refer ence range was not u sed to interpret th is result as normal/abnormal . NRBC x10^3 (test code See_Comment [Auto mated = 3214877050) message] The s ystem which generated this result transmitted reference range : 10*3/?L. The reference range was not used to interpret this result as normal/abnormal . GRAN MAT (NEUT) % 62.1 % (test code = 770-8) IMM GRAN % (test code 0.50 % = 1329965894) LYMPH % (test code = 22.6 % 736-9) MONO % (test code = 9.1 % 5905-5) EOS % (test code = 5.2 % 713-8) BASO % (test code = 0.5 % 706-2) GRAN MAT x10^3(ANC) 5.38 10*3/uL 1.99-6.95 (test code = 2324511796) IMM GRAN x10^3 (test 0.04 10*3/uL 0.00-0.06 code = 9386037381) LYMPH x10^3 (test code 1.96 10*3/uL 1.09-3.23 = 731-0) MONO x10^3 (test code 0.79 10*3/uL 0.36-1.02 = 742-7) EOS x10^3 (test code = 0.45 10*3/uL 0.06-0.53 711-2) BASO x10^3 (test code 0.04 10*3/uL 0.01-0.09 = 704-7) Lab Interpretation Abnormal (test code = 59582-5) [facility]way[facility]rop[facility] [id number] 10:17:19 Test Item Value Reference Interpretation Comments Range TROPONIN I (test 0.007 ng/mL See_Comment [Automated code = 9256516312) message] The system which generated this result [...] biotin. Lab Interpretation Normal (test code = 22595-3) [facility]2022-08-26 10:05:38 Test Item Value Reference Range Interpretation Comments MAGNESIUM (test code = 5969681762) 2.1 mg/dL 1.7-2.4 Lab Interpretation (test code = Normal 39571-2) [facility] (NA, K, CL, CO2, GLUCOSE, BUN, CREATININE, CA)2022-05-24 10:05:18 Test Item Value Reference Range Interpretation Comments NA (test code = 136 mmol/L 135-145 1763307996) K (test code = 4.9 mmol/L 3.5-5 9634019336) CL (test code = 109 mmol/L 98-108 H 5711106561) CO2 TOTAL (test code = 21 mmol/L 23-31 L 8189028950) AGAP (test code = 2-16 8430310852) BUN (test code = 27 mg/dL 7-23 H 3348645008) GLUCOSE (test code = 89 mg/dL 70-110 9268543992) CREATININE (test code = 1.62 mg/dL 0.6-1.25 H 5276344650) CALCIUM (test code = 8.5 mg/dL 8.6-10.6 L 7775362724) eGFR (test code = mL/min/1.73m2 7181115038) ISIDORO (test code = ISIDORO) Association of [...] tests). Lab Interpretation Abnormal (test code = 34890-8) [facility] WITH [id number] 09:31:37 Test Item Value Reference Range Interpretation Comments WBC (test code = See_Comment [Automated 6690-2) message] The sy stem which [...] RDW-SD (test code = 43.6 fL 38.5-51.6 50555-5) RDW-CV (test code = 13.1 % 12.1-15.4 788-0) PLT (test code = See_Comment [Automated 777-3) message] The sy stem which generated this result transmitted reference range : 150 - 328 10*3/ ?L. The reference r cuong was not used to interpret this result as normal/abnormal . MPV (test code = 9.3 fL 9.8-13 L 59475-6) NRBC/100 WBC (test See_Comment [Automat ed code = 6462575930) message] The system which generated this result transmitted reference range : 0.0 - 10.0 /100 WBCs. The refer ence range was not u sed to interpret th is result as normal/abnormal . NRBC x10^3 (test code See_Comment [Auto mated = 4245617036) message] The s ystem which generated this result transmitted reference range : 10*3/?L. The reference range was not used to interpret this result as normal/abnormal . GRAN MAT (NEUT) % 56.1 % (test code = 770-8) IMM GRAN % (test code 0.40 % = 1964972346) LYMPH % (test code = 27.1 % 736-9) MONO % (test code = 9.9 % 5905-5) EOS % (test code = 5.8 % 713-8) BASO % (test code = 0.7 % 706-2) GRAN MAT x10^3(ANC) 4.53 10*3/uL 1.99-6.95 (test code = 5563208701) IMM GRAN x10^3 (test 0.03 10*3/uL 0-0.06 code = 3220519099) LYMPH x10^3 (test code 2.19 10*3/uL 1.09-3.23 = 731-0) MONO x10^3 (test code 0.80 10*3/uL 0.36-1.02 = 742-7) EOS x10^3 (test code = 0.47 10*3/uL 0.06-0.53 711-2) BASO x10^3 (test code 0.06 10*3/uL 0.01-0.09 = 704-7) Lab Interpretation Abnormal (test code = 58890-0) [id number] 04:35:45 Test Item Value Reference Interpretation Comments Range TROPONIN I (test 0.004 ng/mL See_Comment [Automated code = [id number]) message] The system which generated this result [...] biotin. Lab Interpretation Normal (test code = 49976-5) [facility]2022-05-24 01:26:40 Test Item Value Reference Range Interpretation Comments Height (test code = in 8993082199) Weight (test code = lbs 3794152039) Systolic BP (test code = mmHg 4608837736) Diastolic BP (test code mmHg = 2402279990) Heart Rate (test code = bpm 7265620210) BSA (test code = 2.09 m2 0043193063) Ao root annulus (test 3.2 cm code = 1398351498) Ao root diam (test code 3.20 cm = [id number]) Aortic root (test code = 3.2 cm 8961732860) LVOT diameter (test code 2.14 cm = 5143289166) LVIDD (test code = 5.00 cm 8468018232) IVS (test code = 1.31 cm 0874220156) Interventricular Septum 1.31 cm Diastolic Thickness by 2D (test code = 8754818) LVPWD (test code = 1.32 cm 8959886281) PW (test code = 1.32 cm 0.6-1.6 4687537924) EF(Teich) (test code = 61.30 % 0250251273) LVIDS (test code = 3.30 cm 1463206943) FS (test code = 33 % 5829602363) EF - 2D (test code = 61.30 % 63599771) LA size (test code = 3.6 cm 8476449321) TR Peak Mayank (test code = 261.9 cm/s 0165472190) Triscuspid Valve mmHg Regurgitation Peak Gradient (test code = 4523960897) LAV(MOD-sp4) (test code 59.10 mL = 1464479861) E wave decelartion time 0.23 s (test code = 3961770156) MV Peak E Mayank (test code 73.6 cm/s = 0156874567) MV stenosis pressure 1/2 70.2 ms time (test code = 2544381590) MV Peak A Mayank (test code 55.9 cm/s = 2248977646) E/A ratio (test code = ratio 2219710466) MV Prop V (test code = 58.20 cm/s 9534887105) MV E/e' septal (test 12.2 cm/s code = 5750124566) Tapse (test code = 2.9 cm 0133188284) LVOT stroke volume (test 103.80 cm3 code = 8976662193) LVOT peak mayank (test code 147.2 cm/s = 2630124434) LVOT mn grad (test code mmHg = 4780583906) AV LVOT peak gradient mmHg (test code = 1171139884) LVOT peak VTI (test code 28.7 cm = 6670809492) LV V1 mean (test code = 93.00 cm/s 6696375446) Aortic valve mean 119.4 cm/s velocity (test code = 2103551151) Ao peak mayank (test code = 165.6 cm/s 9349850569) Ao VTI (test code = 35.2 cm 5839236606) AV area by cont VTI 2.9 cm2 (test code = 6104896367) AV area peak mayank (test 3.2 cm2 code = 5063799139) Ao max PG (test code = 11.00 mm[Hg] 0762335126) AV peak gradient (test mmHg code = 1446793021) AV valve area (test code 2.90 cm2 = 5524142758) AV mean gradient (test mmHg code = 4713640450) Radiology Study observation (narrative) (test code = 74544-4) ISIDORO (test code = ISIDORO) Formatting of [...] 2D, color flow Doppler and spectral Doppler. [facility] [id number] 14:25:35 Test Item Value Reference Interpretation Comments Range TROPONIN I (test 0.009 ng/mL See_Comment [Automated code = 3689377096) message] The system which generated this result [...] biotin. Lab Interpretation Normal (test code = 78259-8) [facility]. METABOLIC PANEL ([id number] 14:14:13 Test Item Value Reference Range Interpretation Comments NA (test code = 143 mmol/L 135-145 1512854144) K (test code = 5.0 mmol/L 3.5-5 5094557574) CL (test code = 111 mmol/L 98-108 H 5096718219) CO2 TOTAL (test code = 20 mmol/L 23-31 L 2131874124) AGAP (test code = 2-16 6494900779) BUN (test code = 30 mg/dL 7-23 H 6801054189) GLUCOSE (test code = 85 mg/dL 70-110 4627279270) CREATININE (test code = 2.07 mg/dL 0.6-1.25 H 7832479935) TOTAL BILI (test code = 0.6 mg/dL 0.1-1.1 7372151258) CALCIUM (test code = 9.0 mg/dL 8.6-10.6 3570240787) T PROTEIN (test code = 7.2 g/dL 6.3-8.2 6034054930) ALBUMIN (test code = 4.4 g/dL 3.5-5 9695319843) ALK PHOS (test code = 121 U/L 34-122 9839498436) ALTv (test code = 23 U/L 5-50 2-6) AST(SGOT) (test code = 29 U/L 13-40 9836909570) eGFR (test code = mL/min/1.73m2 2206387857) ISIDORO (test code = ISIDORO) Association of [...] tests). Lab Interpretation Abnormal (test code = 10775-5) [facility] WITH [id number] 14:11:10 Test Item Value Reference Range Interpretation [...] RDW-SD (test code = 42.9 fL 38.5-51.6 01488-4) RDW-CV (test code = 12.9 % 12.1-15.4 788-0) PLT (test code = See_Comment H [Automated 777-3) message] The sy stem which generated this result transmitted reference range : 150 - 328 10*3/ ?L. The reference r cuong was not used to interpret this result as normal/abnormal . MPV (test code = 9.0 fL 9.8-13 L 60060-5) NRBC/100 WBC (test See_Comment [Automat ed code = 0091746394) message] The system which generated this result transmitted reference range : 0.0 - 10.0 /100 WBCs. The refer ence range was not u sed to interpret th is result as normal/abnormal . NRBC x10^3 (test code See_Comment [Auto mated = 9911752047) message] The s ystem which generated this result transmitted reference range : 10*3/?L. The reference range was not used to interpret this result as normal/abnormal . GRAN MAT (NEUT) % 71.9 % (test code = 770-8) IMM GRAN % (test code 0.40 % = 1746253437) LYMPH % (test code = 16.1 % 736-9) MONO % (test code = 8.4 % 5905-5) EOS % (test code = 2.5 % 713-8) BASO % (test code = 0.7 % 706-2) GRAN MAT x10^3(ANC) 8.20 10*3/uL 1.99-6.95 H (test code = 2361311383) IMM GRAN x10^3 (test 0.05 10*3/uL 0-0.06 code = 5641482477) LYMPH x10^3 (test code 1.84 10*3/uL 1.09-3.23 = 731-0) MONO x10^3 (test code 0.96 10*3/uL 0.36-1.02 = 742-7) EOS x10^3 (test code = 0.29 10*3/uL 0.06-0.53 711-2) BASO x10^3 (test code 0.08 10*3/uL 0.01-0.09 = 704-7) Lab Interpretation Abnormal (test code = 75851-8) [facility]"
[2022-09-28 15:30] LABS: Absolute Lymphocytes (CBC) 2.3 K/uL (0.7-4.9); Hematocrit 39.7 % (39.6-49.0); Lymphocytes % 23.5 % (15.3-44.8); MCV 89.8 fL (80-100); MPV 7.3 fL (7.6-11.3); RBC Red Blood Cell Count 4.43 M/uL (4.33-5.43)
[2022-09-28 15:41] LABS: SARS-CoV-2 Antigen Rapid Res Negative (Negative)
--- NOTE | 2022-09-28 15:44 | RAD REPORT ---
EXAM DESCRIPTION: CT - Head Brain Wo Cont - 09/28/2022 3:30 pm CLINICAL HISTORY: expressive aphasia, left sided weakness COMPARISON: Head Brain Wo Cont dated 04/15/2022; Ct Stroke Brain Wo Cont dated 03/29/2022 TECHNIQUE: All CT scans are performed using dose optimization technique as appropriate and may inclu de automated exposure control or mA/KV adjustment according to patient size. FINDINGS: No intracranial hemorrhage, hydrocephalus or extra-axial fluid collection.No areas of brai n edema or evidence of midline shift. Remote right parietal infarct. Remote tiny left thalamic infarc t. Mild ethmoid air cell and maxillary sinus thickening The calvarium is intact. IMPRESSION: No acute intracranial abnormality. Remote infarcts.
[2022-09-28 15:45] LABS: Potassium 4.8 mmol/L (3.5-5.1); Protime INR 0.96
[2022-09-28] MEDS ORDERED: ASPIRIN 81 MG CHEWABLE TABLET ONE (16:06)
[2022-09-28] MEDS ORDERED: FOLIC ACID 5 MG/ML VIAL ONE (16:07)
[2022-09-28 16:08] LABS: Troponin High Sensitivity 72.3 pg/mL (<58.9)
[2022-09-28] MEDS ORDERED: MORPHINE 4 MG/ML SYR ONE (16:34)
[2022-09-28] MEDS ORDERED: NA CHLORIDE 0.9% 500 ML ONE (16:34)
--- NOTE | 2022-09-28 16:47 | RAD REPORT ---
EXAM DESCRIPTION: CT - Head angio - 09/28/2022 4:33 pm CLINICAL HISTORY: speech difficulty, left sided weakness COMPARISON: <Comparisons> TECHNIQUE: CT angiography of the head was performed with MIPs. All CT scans are performed using dose optimization technique as appropriate and may include automated exposure control or mA/KV adjustment according to patient size. FINDINGS: Anterior circulation: No aneurysm or large vessel occlusion. No hemodynamically significant stenosis. No arteriovenous malf ormation identified. Posterior circulation: No aneurysm or large vessel occlusion. No hemodynamically significant stenosis. No arteriovenous malf ormation identified. IMPRESSION: No significant flow abnormality is detected.
--- NOTE | 2022-09-28 17:20 | ER ---
Nurse's Notes [facility] Name: Wood Jj Age: 62 yrs Sex: Male : 1960 Arrival Date: 09/28/2022 Time: 14:29 Bed 13 Private MD: Diagnosis: Weakness;Paresthesia of skin;Dysarthria following cerebral infarction Presentation: 09/28 14:31 Chief complaint: Patient states: Impaired speech and trouble getting words out since ll1 yesterday morning at 6 am. New prescription for Cymbalta started yesterday also. Chief complaint: EMS states: FS 93. 20 G R AC. VSS. Coronavirus screen: Vaccine status: Patient reports receiving the 2nd dose of the covid vaccine. Client denies travel out of the [place] in the last 14 days. At this time, the client does not indicate any symptoms associated with coronavirus-19. Ebola Screen: Patient denies travel to an Ebola-affected area in the 21 days before illness onset. Initial Sepsis Screen: Does the patient meet any 2 criteria? No. Patient's initial sepsis screen is negative. Does the patient have a suspected source of infection? No. Patient's initial sepsis screen is negative. Risk Assessment: Do you want to hurt yourself or someone else? Patient reports no desire to harm self or others. Onset of symptoms was September 27, 2022. 14:31 Method Of Arrival: EMS: [place] [id number] 14:31 Acuity: LISA 2 ll1 15:12 Care prior to arrival: None. Mechanism of Injury: No Mechanism of Injury. Trauma event ll1 details: Injury occurred in the [facility]. Triage Assessment: 14:34 General: Appears distressed, uncomfortable, Behavior is cooperative, appropriate for ll1 age, anxious. Pain: Complains of pain in head Pain currently is 6 out of 10 on a pain scale. Quality of pain is described as aching. Neuro: Reports headache trouble speaking. Cardiovascular: No deficits noted. Respiratory: No deficits noted. Trauma Activation: Not Applicable Physician: ED Physician; Name: ; Notified At: ; Arrived At: Physician: General Surgeon; Name: ; Notified At: ; Arrived At: Physician: Radiology; Name: ; Notified At: ; Arrived At: Physician: Respiratory; Name: ; Notified At: ; Arrived At: Physician: Lab; Name: ; Notified At: ; Arrived At: Historical: - Allergies: 14:31 Ativan; ll1 14:31 BENZODIAZEPINES; ll1 14:31 dextroamphetamine saccharate; ll1 14:31 amphetamine sulfate; ll1 14:31 dextroamphetamine sulfate; ll1 14:31 diazepam; ll1 14:31 ketorolac tromethamine; ll1 14:31 Lorazepam; ll1 14:31 PENICILLINS; ll1 14:31 Trazodone; ll1 14:31 Valium; "makes my heart stop"; ll1 14:31 venom-honey bee; ll1 14:31 Amitriptyline; "major agression"; ll1 14:31 amphetamine aspartate; ll1 14:31 venom-wasp; ll1 14:31 Xanax; ll1 14:31 Alprazolam; ll1 - PMHx: 14:31 Hypercholesterolemia; Hypertension; Myocardial infarction; stroke; drug abuse; ll1 - PSHx: 14:31 Appendectomy; eye sx; Hemorrhoidectomy; Hernia sx; ll1 - Immunization history:: Client reports receiving the 2nd dose of the Covid vaccine. - Social history:: Smoking status: Patient reports the use of cigarette tobacco products, smokes one pack cigarettes per day. - Immunization history: Last tetanus immunization: - up to date. - Family history:: not pertinent. - Hospitalizations: : No recent hospitalization is reported. Screenin:11 Abuse screen: Denies threats or abuse. Nutritional screening: No deficits noted. ll1 Tuberculosis screening: No symptoms or risk factors identified. 15:15 [facility] ED Fall Risk Assessment (Adult) Confusion or Disorientation Yes (5 pts) ll1 Impaired Gait Yes (1 pt) Mobility Assist Device Used Yes (1 pt) Score/Fall Risk Level 3 or more points = High Risk Oriented to surroundings, Maintained a safe environment, Educated pt \\T\\ family on fall prevention, incl call for assistance when getting out of bed, Hourly rounding (assess needs \\T\\ fall precautionary measures) done, Offered frequent toileting (1:1 observation), Remained with patient while ambulating. 15:38 Patient has been NPO before screening. The patient is alert, able to follow commands. ll1 The patient exhibits slurred or garbled speech. The patient is exhibiting difficulty speaking. The patient does not exhibit difficulty understanding words. The patient is able to swallow own secretions with no drooling or need for suction. The patient failed the bedside swallow screening. The patient will be kept NPO until cleared by Speech Therapy or Physician. Provider notified of bedside swallow screening results: Luis Daniel Castrejon MD. 16:10 Patient tolerated one teaspoon of water. No drooling, immediate coughing, gurgling, or ll1 clearing of the throat was noted. The patient tolerated 90mL of water. No drooling, immediate coughing, gurgling, or clearing of the throat was noted. The patient passed the bedside swallow screening. Oral medications may be given as ordered. Contact Physician for further diet orders. Primary Survey: 15:12 NO uncontrolled hemorrhage observed. A: The client is alert. Breathing/Chest: ll1 Spontaneous respiratory effort, equal unlabored respirations, breath sounds clear bilaterally, regular pattern, symmetrical chest rise and fall. Circulation: No external hemorrhage present. Regular and strong central pulse, skin warm/dry/normal color. Disability Client is alert. Exposure/Environment: There is no evidence of uncontrolled external bleeding. 18:18 Reassessment Breathing: Spontaneous respiratory effort, equal unlabored respirations, ll1 breath sounds clear bilaterally, regular pattern with symmetrical chest rise and fall. Assessment: 15:10 Reassessment: No changes from previously documented assessment. Patient and/or family ll1 updated on plan of care and expected duration. Pain level reassessed. Patient is alert, oriented x 3, equal unlabored respirations, skin warm/dry/pink. 15:40 Reassessment: No changes from previously documented assessment. Patient and/or family ll1 updated on plan of care and expected duration. Pain level reassessed. 16:15 Reassessment: No changes from previously documented assessment. Patient and/or family ll1 updated on plan of care and expected duration. Pain level reassessed. Patient is alert, oriented x 3, equal unlabored respirations, skin warm/dry/pink. 17:15 Reassessment: No changes from previously documented assessment. Patient and/or family ll1 updated on plan of care and expected duration. Pain level reassessed. 18:15 Reassessment: No changes from previously documented assessment. Patient states symptoms ll1 have improved. General: Appears in no apparent distress. Behavior is calm, cooperative, appropriate for age. 19:21 General: Appears comfortable, Behavior is calm, pt supine in bed, eyes closed, aa9 breathing equal and regular no appareant distress. . Respiratory: Airway is patent Respiratory effort is even, unlabored. 21:20 Reassessment: Patient appears in no apparent distress at this time. Patient is alert, aa9 oriented x 3, equal unlabored respirations, skin warm/dry/pink. report provided to BRIGIDA Thakur. Vital Signs: 14:31 BP 117 / 81; Pulse 67; Resp 18; Temp 98.8; Pulse Ox 94% on R/A; Weight 85.73 kg; Height ll1 5 ft. 6 in. (167.64 cm); Pain 6/10; 16:00 BP 100 / 62; Pulse 63; Pulse Ox 98% ; ll1 17:00 BP 110 / 63; Pulse 63; Resp 17; Pulse Ox 95% on R/A; ll1 17:45 BP 97 / 70; Pulse 66; Pulse Ox 95% ; ll1 18:11 BP 102 / 61; Pulse 55; Resp 15; Pulse Ox 94% ; ll1 19:00 BP 106 / 68; Pulse 50; Resp 15; Pulse Ox 95% on R/A; aa9 14:31 Body Mass Index 30.51 (85.73 kg, 167.64 cm) ll1 [place] Coma Score: 16:21 Eye Response: spontaneous(4). Verbal Response: oriented(5). Motor Response: obeys ll1 commands(6). Total: 15. Trauma Score (Adult): 15:12 Eye Response: spontaneous(1); Verbal Response: oriented(1); Motor Response: obeys ll1 commands(2); Systolic BP: > 89 mm Hg(4); Respiratory Rate: 10 to 29 per min(4); [place] Score: 15; Trauma Score: 12 NIH Stroke Scale Scores: 15:08 NIHSS Score: 3 broomcorn scraper Course: 14:29 Patient arrived in ED. [id number] 14:30 Arabella Cooper RN is Primary Nurse. ll1 14:31 Arm band placed on Patient placed in an exam room, on a stretcher. ll1 14:32 Luis Daniel Castrejon MD is Attending Physician. rn 14:34 Triage completed. ll1 14:50 IV discontinued, intact, Pressure dressing applied. ll1 14:55 Missed attempt(s): 22 gauge in right forearm. Bleeding controlled, band aid applied, ll1 catheter tip intact. 15:00 Inserted saline lock: 22 gauge in left forearm, using aseptic technique. Blood ll1 collected. 15:11 Patient has correct armband on for positive identification. Bed in low position. Call ll1 light in reach. Side rails up X2. Client placed on continuous cardiac and pulse oximetry monitoring. NIBP monitoring applied. equipment monitor phototypesetting on. 15:12 Patient maintains SpO2 saturation greater than 95% on room air. ll1 15:12 Thermoregulation: warm blanket given to patient. ll1 15:32 CT Head Brain wo Cont In Process Unspecified. EDMS 16:35 CT Head Angio In Process Unspecified. EDMS 17:18 Augustus Esparza MD is Hospitalizing Provider. rn 18:18 No provider procedures requiring assistance completed. Patient admitted, IV remains in ll1 place. 18:55 Joni Graham MD is Hospitalizing Provider. sb4 Administered Medications: 16:12 Drug: foLIC Acid 1 mg Route: IVPB; Site: left forearm; ll1 18:16 Follow up: Response: No adverse reaction; IV Status: Completed infusion; IV Intake: ll1 0.2ml 16:13 Drug: Aspirin Chewable Tablet 324 mg Route: PO; ll1 18:16 Follow up: Response: No adverse reaction ll1 16:45 Drug: morphine 4 mg Route: IVP; Infused Over: 4 mins; Site: left forearm; ll1 18:17 Follow up: Response: No adverse reaction; Pain is decreased; RASS: Drowsy (-1) ll1 16:45 Drug: NS 0.9% 500 ml Route: IV; Rate: bolus; Site: left forearm; ll1 18:17 Follow up: Response: No adverse reaction; IV Status: Completed infusion; IV Intake: ll1 500ml Medication: 18:17 VIS not applicable for this client. ll1 Intake: 18:16 IV: 0ml; Total: 0ml. ll1 18:17 IV: 500ml; Total: 500ml. ll1 Outcome: 17:19 Decision to Hospitalize by Provider. rn 18:17 Condition: stable ll1 18:17 Patient's length of stay in the Emergency Department was greater than 2 hours. 21:20 Admitted to Med/surg accompanied by nurse, via wheelchair, room 212, with chart, Report aa9 called to BRIGIDA Thakur 21:20 Instructed on the need for admit. 21:51 Patient left the ED. andrew NIH Stroke Scale - NIH Stroke Score Date: 09/28/2022 Time: 15:08 Total Score = 3 1a. Level of Consciousness (LOC) - 0(Alert) 1b. Level of Consciousness (LOC) (Month \\T\\ Age) - 0(Both) 1c. LOC Commands (Open \\T\\ Closes Eyes/[place] [address] [address]) - 0(Both) 2. Best Gaze (Lateral Gaze Paresis) - 0(Normal) 3. Visual Field Loss - 0(No visual loss) 4. Facial Palsy - 0(Normal) 5a. Left Arm: Motor (10-second hold) - 0(No drift) 5b. Right Arm: Motor (10-second hold) - 0(No drift) 6a. Left Leg: Motor (5-second hold - always test supine) - 1(Drift) 6b. Right Leg: Motor (5-second hold - always test supine) - 0(No drift) 7. Limb Ataxia (finger/nose \\T\\ heel/jolley - test with eyes open) - 0(Absent) 8. Sensory Loss (pinprick arms/legs/face) - 1(Mild to moderate loss) 9. Best Language: Aphasia (description/naming/reading) - 0(No aphasia) 10. Dysarthria (speech clarity - read or repeat words) - 1(Mild to Moderate) 11. Extinction and Inattention (visual/tactile/auditory/spatial/personal) - 0(No abnormality) Initials: rn Signatures: Dispatcher [employer] Carly Joseph RN RN bb Nieto, Roman, MD MD rn Lewis, Lynsay, RN RN ll1 Denae [id number] Ashley Lainez RN RN aa9 Queenie Arredondo, ALEKS PAFrantz sb4 Corrections: (The following items were deleted from the chart) 15:11 14:34 General: Appears in no apparent distress. Behavior is calm, cooperative, ll1 appropriate for age, ll1
--- NOTE | 2022-09-28 17:20 | EDPHYS ---
Physician Documentation [facility] Name: Wood Jj Age: 62 yrs Sex: Male : 1960 Arrival Date: 09/28/2022 Time: 14:29 Bed 13 Private MD: ED Physician Luis Daniel Casterjon HPI: 09/28 15:08 This 62 yrs old Male presents to ER via EMS with complaints of speech problem. rn 15:08 The patient presents to the emergency department with weakness of the left lower rn extremity, a speech or higher order brain function problem, paresthesias of the left lower extremity, left upper extremity. Onset: The symptoms/episode began/occurred yesterday. Associated signs and symptoms: Pertinent positives: paresthesias, weakness, Pertinent negatives: altered mental status, fever, seizure, loss of vision. Severity of symptoms: At their worst the symptoms were moderate in the emergency department the symptoms are unchanged. The patient has experienced similar episodes in the past. The patient has not recently seen a physician. Pt reports difficulty with speech since yesterday morning, has had 2 strokes in past with speech problems. Also reports tingling of left face/left arm/left leg, and weakness in left leg. No injury. Takes a baby aspirin. . Historical: - Allergies: 14:31 Ativan; ll1 14:31 BENZODIAZEPINES; ll1 14:31 dextroamphetamine saccharate; ll1 14:31 amphetamine sulfate; ll1 14:31 dextroamphetamine sulfate; ll1 14:31 diazepam; ll1 14:31 ketorolac tromethamine; ll1 14:31 Lorazepam; ll1 14:31 PENICILLINS; ll1 14:31 Trazodone; ll1 14:31 Valium; "makes my heart stop"; ll1 14:31 venom-honey bee; ll1 14:31 Amitriptyline; "major agression"; ll1 14:31 amphetamine aspartate; ll1 14:31 venom-wasp; ll1 14:31 Xanax; ll1 14:31 Alprazolam; ll1 - PMHx: 14:31 Hypercholesterolemia; Hypertension; Myocardial infarction; stroke; drug abuse; ll1 - PSHx: 14:31 Appendectomy; eye sx; Hemorrhoidectomy; Hernia sx; ll1 - Immunization history:: Client reports receiving the 2nd dose of the Covid vaccine. - Social history:: Smoking status: Patient reports the use of cigarette tobacco products, smokes one pack cigarettes per day. - Immunization history: Last tetanus immunization: - up to date. - Family history:: not pertinent. - Hospitalizations: : No recent hospitalization is reported. ROS: 15:08 Constitutional: Negative for fever, chills, and weight loss, Eyes: Negative for injury, rn pain, redness, and discharge, Neck: Negative for injury, pain, and swelling, Cardiovascular: Negative for chest pain, palpitations, and edema, Respiratory: Negative for shortness of breath, cough, wheezing, and pleuritic chest pain, Abdomen/GI: Negative for abdominal pain, nausea, vomiting, diarrhea, and constipation, Back: Negative for injury and pain, : Negative for injury, bleeding, discharge, and swelling, MS/Extremity: Negative for injury and deformity, Skin: Negative for injury, rash, and discoloration, Neuro: Negative for seizure Exam: 15:08 Constitutional: This is a well developed, well nourished patient who is awake, alert, rn appears frustrated and tearful Head/Face: Normocephalic, atraumatic. Cardiovascular: Regular rate and rhythm. No pulse deficits. Respiratory: No increased work of breathing, no retractions or nasal flaring. Abdomen/GI: Soft, non-tender Skin: Warm, dry with normal turgor. Normal color with no rashes, no lesions, and no evidence of cellulitis. MS/ Extremity: Pulses equal, no cyanosis. Neurovascular intact. Full, normal range of motion. Equal circumference. Neuro: Awake and alert, GCS 15, oriented to person, place, time, and situation. + decreased sensation left face, left arm, left leg. 4/5 strength LLE and 5/5 throughout elsewhere. + expressive aphasia with frustration 15:31 ECG was reviewed by the Attending Physician. rn Vital Signs: 14:31 BP 117 / 81; Pulse 67; Resp 18; Temp 98.8; Pulse Ox 94% on R/A; Weight 85.73 kg; Height ll1 5 ft. 6 in. (167.64 cm); Pain 6/10; 16:00 BP 100 / 62; Pulse 63; Pulse Ox 98% ; ll1 17:00 BP 110 / 63; Pulse 63; Resp 17; Pulse Ox 95% on R/A; ll1 17:45 BP 97 / 70; Pulse 66; Pulse Ox 95% ; ll1 18:11 BP 102 / 61; Pulse 55; Resp 15; Pulse Ox 94% ; ll1 19:00 BP 106 / 68; Pulse 50; Resp 15; Pulse Ox 95% on R/A; aa9 14:31 Body Mass Index 30.51 (85.73 kg, 167.64 cm) ll1 NIH Stroke Scale Scores: 15:08 NIHSS Score: 3 rn Umang Coma Score: 16:21 Eye Response: spontaneous(4). Verbal Response: oriented(5). Motor Response: obeys ll1 commands(6). Total: 15. Trauma Score (Adult): 15:12 Eye Response: spontaneous(1); Verbal Response: oriented(1); Motor Response: obeys ll1 commands(2); Systolic BP: > 89 mm Hg(4); Respiratory Rate: 10 to 29 per min(4); Bern Score: 15; Trauma Score: 12 MDM: 14:33 Patient medically screened. rn 17:17 Data reviewed: vital signs, nurses notes, lab test result(s), EKG, radiologic studies, rn CT scan, and as a result, I will admit patient. Counseling: I had a detailed discussion with the patient and/or guardian regarding: the historical points, exam findings, and any diagnostic results supporting the discharge/admit diagnosis, lab results, radiology results, the need for further work-up and treatment in the hospital. ED course: Consulted with Dr. Torres, pt is 36 hours post onset of symptoms, neg ct head and CTA head. Drug screen pending with hx of cocaine abuse. + headache. Will admit to hospitalist service for further care and evaluation as Dr. torres does not believe a transfer to [place] would tire changer or warrant intervention. . 09/28 14:39 Order name: Basic Metabolic Panel; Complete Time: 16:24 rn 09/28 14:39 Order name: CBC with Diff; Complete Time: 15:49 rn 09/28 14:39 Order name: High Sensitivity Troponin; Complete Time: 16:24 rn 09/28 14:39 Order name: Protime (+inr); Complete Time: 15:49 rn 09/28 14:39 Order name: Ptt, Activated; Complete Time: 15:49 rn 09/28 14:39 Order name: SARS RAPID; Complete Time: 15:49 rn 09/28 14:39 Order name: CT Head Brain wo Cont; Complete Time: 15:49 rn 09/28 15:16 Order name: Glucose, Ancillary Testing EDNJ 09/28 16:00 Order name: CT Head Angio; Complete Time: 16:53 rn 09/28 16:43 Order name: Urine Drug Screen 09/28 19:23 Order name: CKMB Creatine Kinase MB; Complete Time: 00:19 EDMS 09/28 19:23 Order name: Creatine Phosphokinase; Complete Time: 00:19 EDMS 09/28 19:23 Order name: Troponin High Sensitivity; Complete Time: 00:19 EDMS 09/28 14:39 Order name: EKG; Complete Time: 14:40 rn 09/28 14:39 Order name: Accucheck; Complete Time: 15:10 rn 09/28 14:39 Order name: Cardiac monitoring; Complete Time: 14:43 rn 09/28 14:39 Order name: EKG - Nurse/Tech; Complete Time: 14:43 rn 09/28 14:39 Order name: IV Saline Lock; Complete Time: 15:10 rn 09/28 14:39 Order name: Labs collected and sent; Complete Time: 15:10 rn 09/28 14:39 Order name: NPO; Complete Time: 14:43 rn 09/28 14:39 Order name: O2 Per Protocol; Complete Time: 14:43 rn 09/28 14:39 Order name: O2 Sat Monitoring; Complete Time: 14:43 rn 09/28 14:39 Order name: Stroke Swallow Screen; Complete Time: 15:38 rn EC:31 Rate is 65 beats/min. Rhythm is regular. QRS [place] is Normal. HI interval is normal. QRS rn interval is normal. QT interval is normal. No Q waves. T waves are Normal. No ST changes noted. Clinical impression: NSR w/ Non-specific ST/T Changes. Interpreted by me. Reviewed by me. Administered Medications: 16:12 Drug: foLIC Acid 1 mg Route: IVPB; Site: left forearm; ll1 18:16 Follow up: Response: No adverse reaction; IV Status: Completed infusion; IV Intake: ll1 0.2ml 16:13 Drug: Aspirin Chewable Tablet 324 mg Route: PO; ll1 18:16 Follow up: Response: No adverse reaction ll1 16:45 Drug: morphine 4 mg Route: IVP; Infused Over: 4 mins; Site: left forearm; ll1 18:17 Follow up: Response: No adverse reaction; Pain is decreased; RASS: Drowsy (-1) ll1 16:45 Drug: NS 0.9% 500 ml Route: IV; Rate: bolus; Site: left forearm; ll1 18:17 Follow up: Response: No adverse reaction; IV Status: Completed infusion; IV Intake: ll1 500ml Disposition Summary: 09/28/22 17:19 Hospitalization Ordered Hospitalization Status: Observation rn Location: Telemetry/MedSurg (observation) rn Condition: Stable rn Problem: new rn Symptoms: have improved rn Bed/Room Type: Standard rn Provider: Joni Graham(09/28/22 18:55) sb4 Room Assignment: [facility](09/28/22 20:07) bb Diagnosis - Weakness rn - Paresthesia of skin rn - Dysarthria following cerebral infarction rn Forms: - Medication Reconciliation Form rn - SBAR form rn NIH Stroke Scale - NIH Stroke Score Date: 09/28/2022 Time: 15:08 Total Score = 3 1a. Level of Consciousness (LOC) - 0(Alert) 1b. Level of Consciousness (LOC) (Month \\T\\ Age) - 0(Both) 1c. LOC Commands (Open \\T\\ Closes Eyes/Post Adoption Coordinator) - 0(Both) 2. Best Gaze (Lateral Gaze Paresis) - 0(Normal) 3. Visual Field Loss - 0(No visual loss) 4. Facial Palsy - 0(Normal) 5a. Left Arm: Motor (10-second hold) - 0(No drift) 5b. Right Arm: Motor (10-second hold) - 0(No drift) 6a. Left Leg: Motor (5-second hold - always test supine) - 1(Drift) 6b. Right Leg: Motor (5-second hold - always test supine) - 0(No drift) 7. Limb Ataxia (finger/nose \\T\\ heel/jolley - test with eyes open) - 0(Absent) 8. Sensory Loss (pinprick arms/legs/face) - 1(Mild to moderate loss) 9. Best Language: Aphasia (description/naming/reading) - 0(No aphasia) 10. Dysarthria (speech clarity - read or repeat words) - 1(Mild to Moderate) 11. Extinction and Inattention (visual/tactile/auditory/spatial/personal) - 0(No abnormality) Initials: rn Signatures: Dispatcher [employer] Carly Joseph, RN RN bb Luis Daniel Castrejon MD MD rn Lewis, Lynsay, RN RN ll1 Queenie Arredondo, PAYakelinC PAFrantz sb4 Corrections: (The following items were deleted from the chart) 18:55 17:19 Augustus Esparza rn sb4 20:07 17:19 nicol morales
--- NOTE | 2022-09-28 20:16 | P.HP ---
Certification for Inpatient Patient admitted to: Observation With expected LOS: <2 Midnights Patient will require the following post-hospital care: None Practitioner: I am a practitioner with admitting privileges, knowledge of patient current condition, hospital course, and medical plan of care. Services: Services provided to patient in accordance with Admission requirements found in Title 42 Section 412.3 of the Code of Federal Regulations Patient History Date of Service: 09/28/22 Reason for admission: CVA History of Present Illness: Patient is a 62 year old male with past medical history of HTN, HLD, CVA, AR, and cocaine abuse who presented to the ED via with complaints of left sided weakness and slurred speech. Patient reports he has been experiencing these symptoms for about a day and a half now. NIHSS 3. He reports 2 previous CVAs in which he had speech deficits, that improved with TNK. Head CT and head/neck CTA are negative today. His labs are significant for creatinine 1.5, BUN 21, troponin 72.3. UDS is pending. He was given 324 mg aspirin and folic acid in the ED. Patient denies any chest pain. Neurology was contacted and agrees and did not recommend any further intervention. Patient is admitted for further management. Allergies Benzodiazepines Allergy (Severe, Verified 09/28/22 22:35) Anaphylaxis diazepam [From Valium] Allergy (Severe, Verified 09/28/22 22:35) Anaphylaxis ketorolac tromethamine [From Toradol] Allergy (Severe, Verified 09/28/22 22:35) Anaphylaxis Penicillins Allergy (Severe, Verified 09/28/22 22:35) Anaphylaxis venom-honey bee [bee venom (honey bee)] Allergy (Severe, Verified 09/28/22 22:35) Anaphylaxis venom-wasp [Wasp Venom] Allergy (Severe, Verified 09/28/22 22:35) Anaphylaxis alprazolam [From Xanax] Allergy (Verified 09/28/22 22:35) Hives amphetamine aspartate [From Adderall] Allergy (Verified 09/28/22 22:35) Hives amphetamine sulfate [From Adderall] Allergy (Verified 09/28/22 22:35) Hives dextroamphetamine saccharate [From Adderall] Allergy (Verified 09/28/22 22:35) Hives dextroamphetamine sulfate [From Adderall] Allergy (Verified 09/28/22 22:35) Hives lorazepam [From Ativan] Allergy (Verified 09/28/22 22:35) Hives/Rash trazodone Allergy (Verified 09/28/22 22:35) Hives Home medications list reviewed: Yes Home Medications: Atorvastatin Calcium [Lipitor] 40 mg PO DAILY 03/30/22 Calcium Carbonate/Vitamin D3 [Calcium 600 mg-D3 10 Mcg Sfgl] 1 cap PO DAILY 03/30/22 Clopidogrel Bisulfate [Clopidogrel] 75 mg PO DAILY 03/30/22 Folic Acid 1 mg PO DAILY 03/30/22 Gabapentin 300 mg PO BID 03/30/22 Multivitamin 1 tab PO DAILY 03/30/22 Lisinopril [Zestril] 1 tab PO DAILY 05/21/22 Metoprolol Succinate [Toprol Xl*] 1 tab PO DAILY 05/21/22 - Past Medical/Surgical History Diabetic: No -: Hypertension -: Hyperlipidemia -: CVA -: AR -: Cocaine Abuse -: hernia repair -: appendectomy -: hemorrhoidectomy -: hernia repair Psychosocial/ Personal History: Patient lives at home with his sister. - Family History Mother -: Heart disease, Hypertension, Stroke, Cancer Father -: Heart disease, Hypertension, GI disease, Stroke, Kidney disease Sister -: Hypertension, Lung disease, Diabetes, Kidney disease Brother -: Hypertension - Social History Smoking Status: Current every day smoker Alcohol use: No CD- Drugs: No Caffeine use: Yes Place of Residence: Home Review of Systems Neurological: Weakness, Change in Speech Physical Examination - Physical Exam General: Alert, In no apparent distress, Oriented x3 HEENT: Atraumatic, PERRLA, EOMI, Sclerae nonicteric Neck: Supple, 2+ carotid pulse no bruit, No LAD, Without JVD or thyroid abnormality Respiratory: Clear to auscultation bilaterally, Normal air movement Cardiovascular: Regular rate/rhythm, Normal S1 S2 Gastrointestinal: Normal bowel sounds, No tenderness Musculoskeletal: No tenderness Integumentary: No rashes Neurological: Abnormal speech, Abnormal strength, Abnormal affect - Studies Laboratory Data (last 24 hrs) 09/28/22 15:01: PT 10.6, INR 0.96, APTT 35.3 09/28/22 15:01: WBC 9.70, Hgb 13.6, Hct 39.7, Plt Count 315 09/28/22 15:01: Sodium 138, Potassium 4.8, BUN 21 H, Creatinine 1.52 H, Glucose 81 Assessment and Plan - Problems (Diagnosis) (1) Elevated troponin Current Visit: Yes Status: Acute (2) [place] (acute kidney injury) Current Visit: No Status: Acute (3) Cocaine abuse Current Visit: Yes Status: Chronic (4) Hyperlipidemia Current Visit: Yes Status: Chronic Qualifiers: Hyperlipidemia type: mixed hyperlipidemia Qualified Code(s): E78.2 - Mixed hyperlipidemia (5) Hypertension Current Visit: Yes Status: Chronic Qualifiers: Hypertension type: primary hypertension Qualified Code(s): I10 - Essential (primary) hypertension (6) TIA (transient ischemic attack) Current Visit: Yes Status: Acute - Plan Patient is admitted for observation for CVA rule out/elevated troponin. Troponin trend 72.3 -> 70.6. CKMB 10. Received 324 aspirin in ED. Patient denies chest pain. Therapeutic lovenox ordered. Aspirin, atorvastatin, folic acid daily. NIH Stroke scale qshift. MRI/echocardiogram ordered but are not available on weekend. Continue to monitor neurologic status. Physical therapy and speech therapy consult. Patient passed bedside swallow. UDS is pending. Patient has history of cocaine abuse and has presented with similar symptoms. Monitor and replete electrolytes per protocol. Reconcile and continue home medications. Lovenox for VTE prophylaxis. Full code Discharge Plan: Home Plan to discharge in: 24 Hours - Advance Directives Does patient have a Living Will: No Does patient have a Durable POA for Healthcare: No - Code Status/Comfort Care Code Status Assessed: Yes Code Status: Full Code Physician Review: Patient Assessed, Agree with Above Assessment and Plan Critical Care: No Time Spent Managing Pts Care (In Minutes): 50
[2022-09-28 21:57] LABS: CKMB Creatine Kinase MB 10.1 ng/mL (1.0-3.6)
[2022-09-28 21:58] LABS: Troponin High Sensitivity 70.6 pg/mL (<58.9)
[2022-09-28] MEDS ORDERED: ONDANSETRON 4 MG/2 ML VIAL IV PRN (22:01)
[2022-09-28] MEDS: ENOXAPARIN 100 MG/ML SYR SQ SCH (22:23)
[2022-09-28] MEDS: ATORVASTATIN 40 MG TAB PO SCH (22:23)
[2022-09-28] MEDS: ACETAMINOPHEN 500 MG TAB PO PRN (22:23)
[2022-09-28] MEDS: NA CHLORIDE 0.9% 1,000 ML IV SCH (22:24)
[2022-09-28 22:44] VITALS: BMI 30.4
[2022-09-29 03:17] LABS: Barbiturates NEGATIVE (NEGATIVE); Benzodiazepines NEGATIVE (NEGATIVE); Cocaine POSITIVE (NEGATIVE); METHAMPHETAM NEGATIVE (NEGATIVE); Methadone NEGATIVE (NEGATIVE); Opiates NEGATIVE (NEGATIVE); Phencyclidine NEGATIVE (NEGATIVE); THC Cannibis NEGATIVE (NEGATIVE)
[2022-09-29 06:01] LABS: Absolute Lymphocytes (CBC) 2.3 K/uL (0.7-4.9); Hematocrit 36.6 % (39.6-49.0); Lymphocytes % 37.5 % (15.3-44.8); MCV 90.1 fL (80-100); MPV 7.6 fL (7.6-11.3); RBC Red Blood Cell Count 4.06 M/uL (4.33-5.43)
[2022-09-29 06:27] LABS: Magnesium 2.2 mg/dL (1.6-2.4); Phosphorus 3.3 mg/dL (2.5-4.9); Potassium 3.7 mmol/L (3.5-5.1); Thyroid Stimulating Hormone 0.797 uIU/mL (0.358-3.740)
[2022-09-29 06:29] LABS: Troponin High Sensitivity 77.8 pg/mL (<58.9)
[2022-09-29] MEDS: ASPIRIN EC 81 MG TAB PO SCH (08:32)
[2022-09-29] MEDS: ENOXAPARIN 100 MG/ML SYR SQ SCH (08:32)
[2022-09-29] MEDS: FOLIC ACID 1 MG TABLET PO SCH (08:32)
[2022-09-29] MEDS ORDERED: ENOXAPARIN 40 MG/0.4 ML SQ SCH (09:00)
[2022-09-29] MEDS ORDERED: POTASSIUM 25 MEQ EFFERV TAB PO ONE (09:00)
[2022-09-29] MEDS: NA CHLORIDE 0.9% 1,000 ML IV SCH (11:04)
--- NOTE | 2022-09-29 11:50 | P.PN ---
Subjective Date of Service: 09/29/22 Chief Complaint: CVA No change patient complains of acute weakness on the left side prior history of stroke difficulty walking cannot swallow Review of Systems 10-point ROS is otherwise unremarkable Physical Examination - Vital Signs Temperature: 97.3 F Blood Pressure: 127/70 Pulse: 47 Respirations: 18 Pulse Ox (%): 97 - Physical Exam General: Alert, In no apparent distress, Oriented x3 Cardiovascular: No edema, Regular rate/rhythm Neurological: Other (He has profound weakness on the left arm and leg was no cranial nerve deficit right side is normal) - Studies Laboratory Data (last 24 hrs) 09/28/22 15:01: PT 10.6, INR 0.96, APTT 35.3 09/28/22 15:01: WBC 9.70, Hgb 13.6, Hct 39.7, Plt Count 315 09/28/22 15:01: Sodium 138, Potassium 4.8, BUN 21 H, Creatinine 1.52 H, Glucose 81 Assessment And Plan - Current Problems (Diagnosis) (1) Stroke Current Visit: Yes Status: Acute Plan: Patient is 62 years of age admitted with acute onset of left-sided weakness able to eat and drink no cranial nerve deficit detected he does have weakness on the left side labs reviewed troponins mildly elevated CT of the head including the angiogram is negative for any significant stenosis or a stroke plan to do an MRI tomorrow physical therapy DC Lovenox add Plavix MRI (2) Elevated troponin Current Visit: Yes Status: Acute (3) Headache Current Visit: Yes Status: Acute Plan: Patient has been complaining of frontotemporal headache since his stroke Tylenol not effective we will try him some Percocet Qualifiers: Headache type: unspecified Headache chronicity pattern: acute headache - Plan Patient denies any chest pain1 Rate is 65 beats/min. Rhythm is regular. QRS [place] is Normal. MT interval is normal. QRS rn interval is normal. QT interval is normal. No Q waves. T waves are Normal. No ST changes noted. Clinical impression: NSR w/ Non-specific ST/T Changes. Physician Review: Patient Assessed, Agree with Above Assessment and Plan
[2022-09-29] MEDS: GABAPENTIN 400 MG CAP PO SCH ×2 (12:45→19:53)
[2022-09-29] MEDS: Oxycodone HCl/Acetaminophen 1 TAB TAB PO PRN ×2 (12:45→19:54)
--- NOTE | 2022-09-29 19:19 | CON ---
Date of Consultation: 09/29/2022 Reason For Consultation: Elevated troponin. History Of Present Illness: A 62-year-old male with history of hypertension, dyslipidemia, CVA, [place], cocaine abuse, history of atrial fibrillation that is paroxysmal, presented with left-sided weakness, slurred speech, was evaluated in the emergency room, diagnosed with acute CVA. Denies having any ac ewiiaapaayp chest pain at the present time. Denies any shortness of breath. Past Medical History: As outlined above in the HPI. Medications: Refer to reconciliation sheet for detailed list. Allergies: LONG LIST OF ALLERGIES WAS REVIEWED. PLEASE REFER TO NURSE'S NOTES FOR FULL LIST. Social History: He is a smoker and drinks on the frequent occasions, uses cocaine. Family History: No premature coronary artery disease. There is history of CVA and hypertension. Review of Systems: All systems reviewed and they were negative except what mentioned in HPI. Physical Examination: Vital Signs: Reviewed. Head and Neck: Pupils are equal, reactive to light. Intact eye movements. No JVD. No cervical lym phadenopathy. Neck is supple. Thyroid is not enlarged. Lungs: Clear to auscultation bilaterally. No rhonchi, wheezing, or crackles. No accessory muscle u se. Heart: Irregularly irregular. No extra sounds. Abdomen: Soft, nontender. Bowel sounds positive. No organomegaly. No masses or hernia. No rigidi ty or rebound. Extremities: There is no edema, clubbing, or cyanosis. Intact pulses. Skin: No rash. Neurologic: Alert, awake, oriented x3. Maybe there is mild weakness involving the left side. Lymph Nodes: No cervical or axillary lymphadenopathy. Investigations: CT scan showed no acute abnormalities with his remote infarct. CTA of the head, no acute abnormalities. The rest of the labs showed a troponin of 72 and then 77. BUN 18, creatinine 1 .15, and hemoglobin is 12.4. Assessment And Recommendations: 1.Elevated troponin. There is no active chest pain at the present time. This is likely demand, how ever obtain echocardiogram tomorrow to evaluate for any wall motion abnormalities. He reported a his tory of atrial fibrillation in the past. He has sinus at the present time. I recommend full anticoa gulation with Eliquis or Xarelto. Discuss with Neurology first. 2.Left-sided weakness, possible stroke. Obtain MRI and recommend consult Neurology. If this patien t has history of paroxysmal atrial fibrillation, he will need to be on anticoagulated lifelong with E liquis or Xarelto. 3.Hypertension. Blood pressure is elevated. No intervention is required. Here to allow permissive hypertension due to the concern for acute stroke. SR/MODL Voice ID: [id number] Report ID: [id number]
[2022-09-29] MEDS: ATORVASTATIN 40 MG TAB PO SCH (19:53)
[2022-09-30] MEDS: Oxycodone HCl/Acetaminophen 1 TAB TAB PO PRN ×3 (00:04→15:51)
[2022-09-30 06:21] LABS: Potassium 3.9 mmol/L (3.5-5.1)
[2022-09-30] MEDS: CLOPIDOGREL 75 MG TABLET PO SCH (08:51)
[2022-09-30] MEDS: ASPIRIN EC 81 MG TAB PO SCH (08:51)
[2022-09-30] MEDS: GABAPENTIN 400 MG CAP PO SCH ×3 (08:51→20:49)
[2022-09-30] MEDS: FOLIC ACID 1 MG TABLET PO SCH (08:51)
[2022-09-30] MEDS: lisinopriL 20 MG TAB PO SCH (08:52)
[2022-09-30] MEDS: METOPROLOL TAR 50 MG TAB PO SCH (08:52)
[2022-09-30] MEDS: NICOTINE 14 MG/PAT TD SCH (08:53)
[2022-09-30] MEDS ORDERED: POTASSIUM CL SA 10 MEQ TAB PO ONE (09:00)
[2022-09-30] MEDS ORDERED: ALPRAZOLAM 0.25 MG TABLET PO ONE ×2 (10:05→11:15)
[2022-09-30] MEDS: ACETAMINOPHEN 500 MG TAB PO PRN (13:48)
--- NOTE | 2022-09-30 14:04 | RAD REPORT ---
EXAM DESCRIPTION: MRI - Brain W/Wo Cont - 09/30/2022 1:38 pm CLINICAL HISTORY: Left-sided weakness/speech difficulty COMPARISON: head CT September 28, 2022 TECHNIQUE: Axial, sagittal, and coronal magnetic images of the brain were obtained. 19 cc MultiHance administered intravenously FINDINGS: 2 centimeter area of abnormal signal right occipital lobe likely old infarct. Small low-de nsity area right frontal lobe likely old infarct. Old lacunar infarct left thalamus. The ventricles are normal in caliber. Diffusion-weighted/ ADC mapping sequences do not demonstrate evidence of an acute infarction. No abnormal enhancement within the brain is seen. Small venous angioma right cerebrum An extra-axial fluid collection is not noted. Fluid within the sinuses/mastoids is not seen IMPRESSION: No acute intracranial abnormality displayed
--- NOTE | 2022-09-30 14:06 | RAD REPORT ---
EXAM DESCRIPTION: MRI - MRA Neck W/Wo Cont - 09/30/2022 1:38 pm CLINICAL HISTORY: Left-sided weakness/speech difficulty COMPARISON: None. TECHNIQUE: Magnetic resonance angiogram of the neck was performed. 19 cc MultiHance was administered intravenously. 3D MIPS reconstruction performed FINDINGS: The common carotid, internal carotid and external carotid arteries do not demonstrate a si gnificant stenosis. An aneurysm is not seen. The vertebral arteries are codominant without visualization of an abnormality. IMPRESSION: No significant abnormality is displayed NASCET criteria used. Mild 0-49% stenosis Moderate 50-69% stenosis Severe 70-99% stenosis
--- NOTE | 2022-09-30 14:07 | RAD REPORT ---
EXAM DESCRIPTION: MRI - MRA Head Wo Cont - 09/30/2022 1:38 pm CLINICAL HISTORY: Left-sided weakness/speech difficulty COMPARISON: CT September 28, 2022 TECHNIQUE: Magnetic resonance angiogram was performed. 3D MIPS reconstruction performed FINDINGS: The anterior cerebral, middle cerebral, posterior cerebral, distal internal carotid and ba silar arteries do not demonstrate a significant stenosis. An aneurysm is not displayed. IMPRESSION: No significant abnormality is displayed
--- NOTE | 2022-09-30 17:17 | PN ---
Date of Progress Note: 09/30/2022 Subjective: Seen by bedside. Doing well. No chest pain. Review of Systems: No chest pain, shortness of breath, orthopnea, cough, nausea, vomiting, diarrhea. All other systems reviewed and they were negative. Physical Examination: Vital Signs: Reviewed. Head and Neck: Pupils are equal, reactive to light. Intact eye movements. No JVD. No cervical lym phadenopathy. Neck is supple. Thyroid is not enlarged. Lungs: Clear to auscultation bilaterally. No rhonchi, wheezing, or crackles. No accessory muscle u se. Heart: Regular rate and rhythm. No extra sounds. Abdomen: Soft, nontender. Bowel sounds positive. No organomegaly. No masses or hernia. No rigidi ty or rebound. Extremities: No edema, clubbing, or cyanosis. Intact pulses. Skin: No rash. Neurologic: Alert, awake, oriented x3. No acute focal deficits appreciated. Investigations: BUN 15, creatinine 1.16. Last troponin was 77 and hemoglobin is 12.4. Assessment And Plan: 1.Chest pain with mildly elevated troponin. However, there was a concern of stroke, but MRI did not show any stroke. Further cardiac workup is recommended. I recommend a Lexiscan nuclear stress test plus an echocardiogram to be done tomorrow and further plan accordingly. 2.Dyslipidemia. Continue statin. 3.Hypertension. Blood pressure is controlled. Continue current management. /LIZ Voice ID: [id number] Report ID: [id number]
--- NOTE | 2022-09-30 17:46 | P.PN ---
Subjective Date of Service: 09/30/22 Chief Complaint: CVA No acute events overnight. He reports persistent left-sided weakness and numbness/tingling of his left lower extremity. He denies headaches, nausea, vomiting, or dizziness. Review of Systems 10-point ROS is otherwise unremarkable Neurological: Weakness, Numbness Physical Examination - Vital Signs Temperature: 97.5 F Blood Pressure: 135/71 Pulse: 50 Respirations: 16 Pulse Ox (%): 95 - Physical Exam General: Alert, In no apparent distress, Oriented x3 HEENT: Atraumatic, PERRLA, Mucous membr. moist/pink, EOMI, Sclerae nonicteric Neck: Supple, JVD not distended Respiratory: Clear to auscultation bilaterally, Normal air movement Cardiovascular: No edema, Regular rate/rhythm, Normal S1 S2, No gallops, No rubs, No murmurs Capillary refill: <2 Seconds Gastrointestinal: Normal bowel sounds, Soft and benign, Non-distended, No tenderness, No rebound, No guarding Musculoskeletal: No clubbing Integumentary: No rashes Neurological: Normal speech, Normal tone, Cranial nerves 3-12 intact, Normal reflexes 2+, Normal affect, Abnormal strength (5/5 RUE and RLE. 4/5 in LLE. 4+/5 in LUE.), Abnormal sensation (reports decreased sensation in LLE) Assessment And Plan - Plan NIH Stroke Scale 1a. Level of consciousness: 0 - Alert; keenly responsive 1b. LOC questions: 0 - Both questions right 1c. LOC commands: 0 - Performs both tasks 2. Best Gaze: 0 - Normal 3. Visual: 0 - No visual loss 4. Facial Palsy: 0 - Normal symmetry 5a. Motor left arm: 1 - Drift but doesn't hit bed 5b. Motor right arm: 0 - No drift for 10 seconds 6a. Motor left le - No drift for 5 seconds 6b. Motor right le - No drift for 5 seconds 7. Limb ataxia: 0 - No ataxia 8. Sensory: 1 - mild-moderate loss 9. Best Language: 0 - Normal; no aphasia 10. Dysarthria: 0 - Normal 11. Extinction and Inattention: 0 - No abnormality 12. Distal motor function: 0 - No abnormality Total Score: 2 # Left-Sided Neurologic Deficits with concern for an Acute Cerebrovascular Accident # History of Cerebrovascular Accident # Dyslipidemia - Consulted Neurology and Dr. Chandler notified - recommendations appreciated - NIHSS = 2 - q4hr neurochecks - CT head = "no acute intracranial abnormality. Remote infarcts." - CT neck angiogram = "no significant flow abnormality is detected." - Ordered MR brain + MRA head/neck - Ordered transthoracic echocardiogram - PT/OT evaluation requested - Ordered risk profile: - Hgb A1c = 5.6 % - Lipid panel = TC 149, TG 143, LDL 86, HDL 34 - TSH = 0.797 - Continue aspirin, atorvastatin, folic acid, clopidogrel # Suspected Type II Non-ST Segment Elevation Myocardial Infarction (Demand Ischemia) possibly secondary to Cocaine Use # Coronary Artery Disease complicated by a prior Myocardial Infarction # Substance Use Disorder - Cocaine - Evaluation thus far: - EKG: reportedly without STEMI criteria, trend - Serial troponin: 72.3 -> 70.6 -> 77.8 - Ordered transthoracic echocardiogram - Chest x-ray ordered - Management plan: - Consult Cardiology and spoke with Dr. Tsai - recommendations appreciated - Plans for nuclear stress test tomorrow - Continue aspirin, atorvastatin, clopidogrel, lisinopril, metoprolol Miguel Mariano M.D.
--- NOTE | 2022-09-30 18:23 | RAD REPORT ---
EXAM DESCRIPTION: [facility] Single View09/30/2022 6:17 pm CLINICAL HISTORY: elevated troponin COMPARISON: March 2022 FINDINGS: The lungs appear clear of acute infiltrate. The heart is normal size IMPRESSION: No acute abnormalities displayed
[2022-09-30] MEDS ORDERED: PROMETHAZINE INJ 25 MG/ML AMP IV ONE (18:28)
[2022-09-30] MEDS: ATORVASTATIN 40 MG TAB PO SCH (20:49)
[2022-10-01] MEDS: Oxycodone HCl/Acetaminophen 1 TAB TAB PO PRN ×2 (06:22→13:01)
[2022-10-01 06:23] LABS: Potassium 3.7 mmol/L (3.5-5.1)
[2022-10-01] MEDS: METOPROLOL TAR 50 MG TAB PO SCH (07:26)
[2022-10-01] MEDS ORDERED: REGADENOSON 0.4 MG/5 ML SYR IV ONE (07:44)
[2022-10-01] MEDS: lisinopriL 20 MG TAB PO SCH (09:00)
[2022-10-01] MEDS: CLOPIDOGREL 75 MG TABLET PO SCH (09:27)
[2022-10-01] MEDS: FOLIC ACID 1 MG TABLET PO SCH (09:27)
[2022-10-01] MEDS: NICOTINE 14 MG/PAT TD SCH (09:27)
[2022-10-01] MEDS: GABAPENTIN 400 MG CAP PO SCH ×2 (09:27→13:01)
[2022-10-01] MEDS: ASPIRIN EC 81 MG TAB PO SCH (09:28)
--- NOTE | 2022-10-01 09:37 | RAD REPORT ---
EXAM DESCRIPTION: NM - Rest Stress Cardiac Imaging - 10/01/2022 9:21 am CLINICAL HISTORY: ELEVATED TROPONIN COMPARISON: None. TECHNIQUE: The patient was administered 10.5 mCi of Tc 99m Sestamibi prior to resting SPECT imaging of the heart. The patient was then administered 30. MCi of Tc 99m Sestamibi following exercise or ph armacologic stress. Multiplanar SPECT images were reviewed. FINDINGS: A small area of diminished radiotracer uptake involves the inferior left ventricular myoca rdium on rest and stress sequences. This probably represents attenuation from the diaphragm. Otherwise, there is uniformity of radiotracer uptake involving the left ventricular myocardium. . The left ventricular ejection fraction equals 62% IMPRESSION: No evidence of stress-induced ischemia
[2022-10-01 12:23] VITALS: BP 167/90; TEMP 97.5
[2022-10-01 13:19] VITALS: O2SAT 96
--- NOTE | 2022-10-01 14:06 | P.DS ---
Admission Date: 09/28/22 Discharge Date: 10/01/22 Disposition: ROUTINE DISCHARGE Discharge Condition: GOOD Reason for Admission: CVA Consultations: 1. Neurology 2. Cardiology Hospital Course: DIAGNOSES: # Left-Sided Neurologic Deficits with concern for an Acute Cerebrovascular Accident # Suspected Type II Non-ST Segment Elevation Myocardial Infarction (Demand Ischemia) possibly secondary to Cocaine Use # Coronary Artery Disease complicated by a prior Myocardial Infarction # Small Right Cerebrum Venous Angioma # Substance Use Disorder - Cocaine # History of Cerebrovascular Accident # Dyslipidemia HOSPITAL COURSE: Mr. Wood Jj is a 62-year-old male with a past medical history significant for prior cerebrovascular accident, dyslipidemia, coronary artery disease complicated by prior myocardial infarction, and substance use disorder (cocaine) who was admitted to the [facility] on 09/28/2022 for left sided neurologic deficits. He was admitted to the medicine service. Upon further evaluation, his CT head revealed, "no acute intracranial abnormality. Remote infarcts." His CT head angiogram revealed, "no significant flow abnormality is detected." His MRI brain revealed, "no acute intracranial abnormality displayed." His MR head angiogram revealed, "No significant abnormality is displayed." His MR neck angiogram reve aled, "No significant abnormality is displayed." Neurology was consulted and he was evaluated by Dr. Chandler. Dr. Chandler has cleared him for discharge with outpatient follow-up. He will schedule him for an outpatient MR venogram to further characterize the "small venous angioma right cerebrum" noted on his MRI brain. Additionally, he was noted to have a mildly elevated, but flat troponin trend. It was thought that this was due to demand ischemia secondary to cocaine use. Cardiology was consulted and he was evaluated by Dr. Tsai. Dr. Tsai recommended a cardiac stress test, which revealed, "no evidence of stress- induced ischemia." Dr. Tsai has cleared him for discharge with outpatient follow-up. On 10/01/2022, he was seen on rounds and deemed medically stable for discharge. He was discharged with instructions to schedule follow-up appointments with his PCP, with Cardiology (Dr. Tsai), and with Neurology (Dr. Chandler). He was given the opportunity to ask questions and reported no further questions. Furthermore, all questions were answered to the best of my ability. A copy of this discharge summary will be sent to the above providers to facilitate continuity of care. Today, I personally spent 25 minutes on his case, of which greater than 50% of the time was spent in patient education, counseling, and coordination of care as described above. - Physical Exam General: Alert, In no apparent distress, Oriented x3 HEENT: Atraumatic, PERRLA, Mucous membr. moist/pink, EOMI, Sclerae nonicteric Neck: JVD not distended Respiratory: Clear to auscultation bilaterally, Normal air movement Cardiovascular: No edema, Regular rate/rhythm, Normal S1 S2, No murmurs Capillary refill: <2 Seconds Gastrointestinal: Normal bowel sounds, Soft and benign, Non-distended, Musculoskeletal: No clubbing Integumentary: No rashes Neurological: Normal speech, Normal tone, Cranial nerves 3-12 intact, Normal affect, Abnormal strength (5/5 RUE and RLE. 4+/5 in LLE. 4+/5 in LUE.), Abnormal sensation (reports decreased sensation in LLE) NIH Stroke Scale 1a. Level of consciousness: 0 - Alert; keenly responsive 1b. LOC questions: 0 - Both questions right 1c. LOC commands: 0 - Performs both tasks 2. Best Gaze: 0 - Normal 3. Visual: 0 - No visual loss 4. Facial Palsy: 0 - Normal symmetry 5a. Motor left arm: 1 - Drift but doesn't hit bed 5b. Motor right arm: 0 - No drift for 10 seconds 6a. Motor left le - No drift for 5 seconds 6b. Motor right le - No drift for 5 seconds 7. Limb ataxia: 0 - No ataxia 8. Sensory: 1 - mild-moderate loss 9. Best Language: 0 - Normal; no aphasia 10. Dysarthria: 0 - Normal 11. Extinction and Inattention: 0 - No abnormality 12. Distal motor function: 0 - No abnormality Total Score: 2 Vital Signs/Physical Exam: Temp Pulse Resp BP Pulse Ox 97.5 F 55 18 167/90 H 97 10/01/22 12:00 10/01/22 12:00 10/01/22 13:01 10/01/22 12:00 10/01/22 13:01 Laboratory Data at Discharge: WBC 6.00 K/uL (4.3-10.9) 09/29/22 05:36 Hgb 12.4 g/dL (13.6-17.9) L D 09/29/22 05:36 Hct 36.6 % (39.6-49.0) L 09/29/22 05:36 Plt Count 264 K/uL (152-406) 09/29/22 05:36 PT 10.6 SECONDS (9.5-12.5) 09/28/22 15:01 INR 0.96 09/28/22 15:01 APTT 35.3 SECONDS (24.3-36.9) 09/28/22 15:01 Sodium 142 mmol/L (136-145) 10/01/22 05:39 Potassium 3.7 mmol/L (3.5-5.1) 10/01/22 05:39 BUN 14 mg/dL (7-18) 10/01/22 05:39 Creatinine 1.17 mg/dL (0.70-1.30) 10/01/22 05:39 Glucose 115 mg/dL (74-106) H 10/01/22 05:39 Phosphorus 3.3 mg/dL (2.5-4.9) 09/29/22 05:26 Magnesium 2.2 mg/dL (1.6-2.4) 09/29/22 05:26 Triglycerides 143 mg/dL (<150) 09/29/22 05:26 Cholesterol 149 mg/dL (<200) 09/29/22 05:26 HDL Cholesterol 34 mg/dL (40-60) L 09/29/22 05:26 Cholesterol/HDL Ratio 4.38 09/29/22 05:26 Home Medications: Atorvastatin Calcium [Lipitor] 40 mg PO DAILY 09/29/22 Gabapentin [Neurontin] 800 mg PO TID 09/29/22 Lisinopril [Zestril] 20 mg PO DAILY 09/29/22 Metoprolol Tartrate [Lopressor*] 50 mg PO DAILY 09/29/22 Physician Discharge Instructions: 1. Please call and schedule a follow-up appointment with your PCP in 3-5 days 2. Please call and schedule a follow-up appointment with Neurology (Dr. Chandler) in 5-7 days - He will need to order a MRI of your brain to look at the veins in your brain 3. Please call and schedule a follow-up appointment with Cardiology (Dr. Tsai) in 5-7 days Diet: AHA Activity: Ad maggie Followup: Travis Chandler MD [ASSOCIATE-ACTIVE - CAN ADMIT] - 1 Week Mino Tsai MD [ACTIVE - CAN ADMIT] - Time spent managing pt's care (in minutes): 25
--- NOTE | 2022-10-01 14:35 | EKG ---
Test Date: 2022-09-28 Test Time: 14:39:34 [place]: LML MEASUREMENT RESULTS: Intervals: Rate: 65 OK: 164 QRSD: 76 QT: 400 QTc: 416 [place]: P: 78 OK: 164 QRS: 56 T: 63 INTERPRETIVE STATEMENTS: Normal sinus rhythm Cannot rule out Anterior infarct, age undetermined Abnormal ECG Compared to ECG 06/19/2022 15:34:48 Myocardial infarct finding now present Electronically Signed On 10-01-22 14:32:30 BORING AND FILLING MACHINE OPERATOR by Mino Tsai
--- NOTE | 2022-10-01 20:43 | PN ---
Date of Progress Note: 10/01/2022 Subjective: Seen by bedside, doing well. No complaints today. Review of Systems: No chest pain, shortness of breath, orthopnea, or cough. No nausea, vomiting, or diarrhea. All othe r systems reviewed and they are negative. Physical Examination: Vital Signs: Temperature is 97.5, pulse 55, breathing at 14, blood pressure is 167/90, and saturatin g 97% on room air. General: A pleasant middle-aged male, in no apparent distress. Head And Neck: Pupils are equal and reactive to light. Intact eye movements. No JVD. No cervical lymphadenopathy. Neck is supple. Thyroid is not enlarged. Lungs: Clear to auscultation bilaterally. No rhonchi, wheezing, or crackles. No accessory muscle u se. Heart: Regular rate and rhythm. No extra sounds. Abdomen: Soft, nontender. Bowel sounds positive. No organomegaly. No masses or hernia. No rigidi ty or rebound. Extremities: No edema, clubbing, or cyanosis. Intact pulses. Skin: No rashes. Neurologic: Alert, awake, and oriented x3. No acute focal deficits appreciated. Investigations: Stress test was negative for ischemia. BUN is 14 and creatinine 1.17. Assessment And Recommendation: 1.Chest pain and mildly elevated troponin, this is demand ischemia. The patient uses cocaine. He w as counseled against cocaine use in detail. Stress test is negative and no further cardiac workup is needed. His ejection fraction on echo was normal. From Cardiology standpoint, patient can be relea sed. 2.Hypertension. Blood pressure is uncontrolled. Adjust medications for systolic blood pressure less than 140. 3.Dyslipidemia. Continue statin. SR/MODL Voice ID: [id number] Report ID: [id number]
--- NOTE | 2022-10-02 07:04 | ECHO ---
HEIGHT: 5 ft 7 in WEIGHT: 194 lb 0 oz DATE OF STUDY: 10/01/[address]: Mino Tsai 2-DIMENSIONAL: YES M.MODE: YES DOPPLER: YES COLOR FLOW: YES TDS: PORTABLE: YES DEFINITY: BUBBLE STUDY: DIAGNOSIS: ELEVATED TROPONIN CARDIAC HISTORY: CATHERIZATION: YES SURGERY: PROSTHETIC VALVE: PACEMAKER: MEASUREMENTS (cm) DIASTOLIC (NORMALS) SYSTOLIC (NORMALS) IVSd 0.9 (0.6-1.2) LA Diam 3.3 (1.9-4.0) LVEF 56% LVIDd 4.9 (3.5-5.7) LVIDs 3.5 (2.0-3.5) %FS 29% LVPWd 1.1 (0.6-1.2) Ao Diam 2.9 (2.0-3.7) 2 DIMENSIONAL ASSESSMENT: RIGHT ATRIUM: NORMAL LEFT ATRIUM: NORMAL RIGHT VENTRICLE: NORMAL LEFT VENTRICLE: NORMAL TRICUSPID VALVE: MILD TRICUSPID REGURGITATION MITRAL VALVE: MILD MITRAL REGURGITATION PULMONIC VALVE: NORMAL AORTIC VALVE: NORMAL PERICARDIAL EFFUSION: NONE AORTIC ROOT: NORMAL LEFT VENTRICULAR WALL MOTION: NORMAL DOPPLER/COLOR FLOW: MILD TRICUSPID REGURGITATION/ MILD MITRAL REGURGITATION COMMENTS: 1. NORMAL LEFT VENTRICULAR EJECTION FRACTION 55-60% 2. NORMAL WALL MOTION 3. MILD TRICUSPID REGURGITATION 4. MILD MITRAL REGURGITATION 5. GRADE I DIASTOLIC DYSFUNCTION TECHNOLOGIST: RADHA COLLINS
--- NOTE | 2022-10-02 07:23 | TREADPHA ---
DX: ELEVATED TROPONIN Date of Study: 10/01/2022 Ht: 5' 7 " Wt: 194 lb 0 oz Consulting Physician: MALIK MEDICATIONS: PERCOCET, ASPIRIN, NEURONTIN, NICODERM, PLAVIX, PRINIVIL, LIPITOR, LOPRESSOR HISTORY: 62 YEAR OLD MALE WITH COMPLAINTS CHEST PAIN. HISTORY OF STROKE, HYPERTENSION, HYPERLIPIDEMIA, ATRIAL FIBRILLATION, USES COCAINE, DENIES ALCOHOL USE, SMOKES ONE PACK PER DAY. PHYSICIAL EXAMINATION: RESTING B.P.: 148/89 RESTING H.R.: 54 RESTING EKG: NORMAL SINUS RHYTHM PROTOCOL: PHARMACOLOGIC EXERCISE TIME: 3:30 B.P. AT [place]AK STRESS: 161/84 IMPRESSION: LEXISCAN INJECTED, CARDIOLITE GIVEN PER PROTOCOL. SEE NUCLEAR MEDICINE REPOT. PREMATURE VENTRICULAR COMPLEXES NOTED THROUGHOUT TEST. OCCASIONAL PREMATURE ATIRAL COMPLEXES NOTED. COMPLAINTS OF CHEST PAIN AND SHORTNESS OF BREATH. NO ELECTROCARDIOGRAM CHANGES OF ISCHEMIA PER ELECTROCARDIOGRAM.
== END 2022-10-01 15:12 | disposition home or self-care (01) ==
LOC: ER 14:27 → ERHOLD 18:47 → INTOOBSV 18:47 → 2ND 20:46
PROVIDERS: ADMIT Internal Medicine Sleep Medicine; ATTEND Internal Medicine
DX: R29.818 Other symptoms and signs involving the nervous system (principal); R07.9 Chest pain, unspecified; R77.8 Other specified abnormalities of plasma proteins; Q28.3 Other malformations of cerebral vessels; N17.9 Acute kidney failure, unspecified; I10 Essential (primary) hypertension; I25.2 Old myocardial infarction; E78.2 Mixed hyperlipidemia; F14.10 Cocaine abuse, uncomplicated; I25.10 Atherosclerotic heart disease of native coronary artery without angina pectoris; Z86.73 Personal history of transient ischemic attack (TIA), and cerebral infarction without residual deficits; R51.9 Headache, unspecified; Z20.822 Contact with and (suspected) exposure to COVID-19
CPT/HCPCS: 96365; 93005; 93017; 93306; 85025 ×2; 80048 ×4; 36415 ×3; 83735; 82550 ×2; 84100; 85610; 80061; 82947; 85730; 84443; 83036; 84484 ×3; 82553 ×2; 80307; 70450; 70496; 71045; 70553; 70544; 70549; 97110 ×2; 92523; 97116; 97161; 94760 ×5; 78452; 96375; 99285; 96366; 87811; Q9967; A9577; J2550; J1650 ×2; J2785; J7040; J7030 ×2; A9500

== ENCOUNTER 2022-10-08 11:49 | Observation (INO) | payer MEDICARE ==
--- OUTSIDE RECORDS SUMMARY | 2022-10-08 11:57 | XMS REPORT | Continuity of Care Document ---
:1960 Author Organization [facility] t Address [address] [place] [address] Care Team Providers Name Role Phone CAROLA ROSS Primary Care Physician Unavailable Carola Ross Attending Clinician Unavailable GERTRUDE CHINCHILLA Attending Clinician Unavailable Gertrude Chinchilla DO Attending Clinician Carson_B Attending Clinician Unavailable Cobb_T Attending Clinician Unavailable Ayo ALLRED, Simón Gonzalez Attending Clinician Unavailable CALLIE CUELLAR Attending Clinician Unavailable Callie Cuellar DO Attending Clinician Deshazo_T Attending Clinician Unavailable Doctor Unassigned, Wyocena Attending Clinician Unavailable NEELA ALBARADO Attending Clinician [...] MD Admitting Clinician OWENS_T Admitting Clinician Unavailable CURRY_S Admitting Clinician Unavailable Payers Payer Name Policy Type Policy Effective Date Expiration Date Sour ce Number [id number] 2020 MEDICARE 00:00:00 ADVANTAGE PLAN [facility] [id number] 2021 (MEDICARE 00:00:00 REPLACEMENT HMO) [address] 2021 Common Spi rit 00:00:[address] 2021 Common Spi rit 00:00:[address] 2021 Common Spi rit 00:00:[address] 2021 Common Spi rit 00:00:00 [facility] Problems Condition Condition Condition Status Onset Resolution Last Treating Co mments Source Name Details Category Date Date Treatment Clinician Date Chest Chest Disease Active Univers pain, pain, 8-25 ity of unspecifie unspecifie [place] type 00 Medical Branch Other Other Disease Active Univers hyperlipid hyperlipid 8-25 it y of emia emia 00:00: [place] 00 Medical Branch Drug abuse Drug abuse Disease Active U nivers 8-25 ity of 00:00: [place] 00 Medical Branch Nonobstruc Nonobstruc Disease Active U nivers tive tive 8-25 ity of atheroscle atheroscle 00:00: [place] rosis of rosis of 00 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 [place] (acute [place] (acute Disease Active 2020-09 U nivers kidney kidney 2-30 ity of injury) injury) 00:00: [place] Medical Branch Esophageal Esophageal Disease Active 2017-0 U nivers spasm spasm 4-30 ity of 00:00: [place] 00 Medical Branch A-fib A-fib Disease Active Univers 4-24 ity of 00:00: [place] 00 Medical Branch Atrial Atrial Disease Active Univers fibrillati fibrillati - it y of on with on with 00:00: [place] RVR RVR 00 Medical Branch Shortness Shortness Disease Active Uni vers of breath of breath 01-19 ity of 00:00: [place] Medical [facility] NSTEMI NSTEMI Disease Active Univers (non-ST (non-ST 01-19 ity of elevated elevated 00:00: [place] myocardial myocardial 00 Me dical infarction infarction Br anch ) ) Tobacco Tobacco Disease Active Univers abuse abuse 01-19 ity of 00:00: [place] Medical Branch Family Family Disease Active Univers history of history of 01-19 it y of early CAD [facility] Inguinal Inguinal Disease Active 2016-09 Unive rs hernia hernia 2-04 ity of 00:00: [place] 00 Medical Branch Status Status Disease Active Univers epilepticu epilepticu 01-22 it y of s s 00:00: [place] [facility] Seizure Seizure Disease Active Univers 4-26 ity of 00:00: [place] 00 Medical Branch [id number] 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 incontinen Medica l ce type Center [id number] Primary Problem Common insomnia [facility] [id number] TIA Problem Common (transient Spirit ischemic - CHI attack) [facility] [id number] Aphasia Problem Common Spirit - CHI [facility] [id number] Body mass Problem Com mon index Spirit [BMI] - CHI 31.0-31.9, [facility] [id number] Other Problem Common obesity Spirit due to - CHI excess [facility] [id number] Mixed Problem Common hyperlipid Spirit emia - CHI [facility] [id number] Paroxysmal Problem Co mmon atrial Spirit fibrillati - CHI on [facility] [id number] Vitamin D Problem Comm on deficiency Spirit - CHI [facility] [id number] Primary Problem Comm on osteoarthr Spirit itis of - CHI left knee [facility] [id number] Other Problem Common chronic Spirit pain - CHI [facility] [id number] Arthritis Problem Co mmon [id number] of knee, Spirit left - CHI [facility] [id number] Essential Problem Comm on hypertensi Spirit on - CHI [facility] [id number] Tobacco Problem Commo n use Spirit disorder, - CHI continuous [facility] [id number] Non-season Problem Com mon al Spirit allergic - CHI rhinitis, [facility] [id number] Primary Problem Comm on osteoarthr Spirit itis of - CHI left [facility] Primary Primary Problem Common osteoarthr osteoarthr Sp awais itis itis - CHI involving [facility] Allergies, Adverse Reactions, Alerts Allergy Allergy Status [...] to Branch drug VENOM-WA DRUG Active Anaphylaxis 2013-0 Uni vers SP INGREDI 4-26 ity of 00:00: [place] 00 Medical Branch Venom-Wa Propensi Active Anaphylaxis 2014-0 U nivers sp ty to 4-26 ity of adverse 00:00: [place] reaction 00 Medical s Branch penicill penicill Active swells Common in G in G throat shut Spiri t - [facility] diazepam diazepam Active Stops heart C ommon Spirit - [facility] Social History Social Habit Start Date Stop Date Quantity Comments Source History of Tobacco Current Smoker Co mmon Spirit - Use [facility] Sex Assigned At Common Sp awais - [facility] Exposure to 2022-08-20 2022-08-30 Not sure University of SARS-CoV-2 (event) 00:00:00 07:46:00 [facility] Alcohol intake 2022-08-30 2022-08-30 Current University of 00:00:00 00:00:00 non-drinker of [facility] alcohol Branch (finding) Cigarette 2021-09-27 2021-09-27 University of pack-years 00:00:00 00:00:00 [facility] Tobacco use and 2021-09-27 2021-09-27 Smokeless Universit y of exposure 00:00:00 00:00:00 tobacco non-user [facility] 2021-09-27 2021-09-27 8 University 00:00:00 00:00:00 [facility] Cigarettes smoked 2021-09-27 2021-09-27 Univers ity of current (pack per 00:00:00 00:00:00 ) - Reported Branch Smoking Status Start Date Stop Date Source Current Smoker 2022-07-31 00:00:00 Common Spiri t - CHI [facility] Medications Ordered Filled Start Stop Current Ordering [...] On Fri08/30/22 at 1000, VANNA NaCl 0.9% 2021-09- No 1000mL at 999 Uni vers (NS) bolus 10-31 mL/hr, ity of infusion 14:45: 15:24 1,000 mL, Lauri as 1,000 mL 00 :00 IV Medical Infusion, Branch ONCE, 1 dose, On Fri08/30/22 at 0845, VANNA carvediloL 2021- No [id number] 3.125mg Take 1 Univers 3.125 mg 8-27 09-27 tablet by ity o f tablet 00:00: 04:59 mouth in [place] 00 :00 the Medical morning Branch and 1 tablet in the evening. Take with meals. Do all this for 30 days. carvediloL 2021- No [id number] 3.125mg Take 1 Univers 3.125 mg 05-25 tablet by ity o f tablet 00:00: 04:59 mouth in [place] 00 :00 the Medical morning Branch and 1 tablet in the evening. Take with meals. Do all this for 30 days. nicotine Yes 1{patch Apply 1 Univers mg/24 hr 05-24 } Patch to ity of patch 17:45: area(s) [place] 28 every 24 Medical (twenty-fo Branch ur) hours. Patient reports he smokes 13 cigarettes per day. nicotine Yes 1{patch Apply 1 Univers mg/24 hr 05-24 } Patch to ity of patch 17:45: area(s) [place] 28 every 24 Medical (twenty-fo Branch ur) hours. Patient reports he smokes 13 cigarettes per day. nicotine Yes 1{patch Apply 1 Univers mg/24 hr 05-24 } Patch to ity of patch 17:45: area(s) [place] 28 every 24 Medical (twenty-fo Branch ur) hours. Patient reports he smokes 13 cigarettes per day. hydrOXYzine Yes 10mg 10 mg, Univ ers (ATARAX) 05-24 Oral, ity of tablet 10 15:14: Q6HPRN, [place] mg 53 Starting Medical on Fri [facility] 05/24/22 at 1014, Until Discontinu ed, Routine, [...] 01:00: First dose [place] (SENOKOT-S) 00 on Fri Medica l 8.6-50 mg 05/23/22 at Bran ch per tablet 1999, 1 tablet Until Discontinu ed, Routine enoxaparin 2021-0 Yes 1mg/kg 90 mg Univ ers (LOVENOX) 05-24 (rounded ity of injection 01:00: [place] 93 [place] mg 00 = 1 mg/kg Medical ?93 kg), Branch Subcutaneo us, Q12H, First dose (after last modificati on) on [facility] [place] [facility] 05/23/22 at 2000, Until Discontinu ed, Routine nicotine Yes 1{patch 1 Patch, Un lee (NICODERM) 05-24 } Topical, ity o f 21 mg/24 hr 00:45: Administer [place] patch 1 00 over 24 Medical Patch Hours, Branch Q24H, First dose on [facility] [place] [facility] 05/23/22 at 1945, Until Discontinu ed, Routine hydrOXYzine 2021- No [id number] 10mg Take 1 Univers 10 mg 05-24 tablet by ity of tablet 00:00: 04:59 mouth [place] 00 :00 every 6 Medical (six) Branch hours as needed for Anxiety for up to 30 days. hydrOXYzine 2021- No [id number] 10mg Take 1 Univers 10 mg 05-24 tablet by ity of tablet 00:00: 04:59 mouth [place] 00 :00 every 6 Medical (six) Branch hours as needed for Anxiety for up to 30 days. enoxaparin 2021- No 40mg 40 mg, Univ ers (LOVENOX) 05-23 Subcutaneo ity of injection 22:00: 23:48 us, DAILY, [place] 40 mg 00 :16 First dose Medical on [facility] [place] [facility] Branch 05/23/22 at 1700, Until Discontinu ed, Routine ondansetron Yes 4mg 4 mg, Slow Univers (ZOFRAN 05-23 IV Push, ity of (PF)) 19:56: Q6HPRN, [place] injection 4 03 Starting Medi usman mg on [facility] [place] [facility] Branch 05/23/22 at 1456, Until Discontinu ed, Routine, Nausea and Vomiting (N/V) HYDROcodone 2021- No 1{tbl} 1 tablet, Univers -acetaminop 05-23 Oral, ity of hen (NORCO 19:55: 19:54 Q6HPRN, Lauri as 5) 5-325 mg 52 :52 Starting Medi usman tablet 1 on [facility] tablet 05/23/22 at 1455, Until 05/25/22 at [...] 5 MG MG 00:00: MG 00 HYDROcodone 0 2021- No [id number] 1{tbl} Take 1 U nivers -acetaminop 09-30-10 tablet by it y of marv (NORCO) 00:00: 05:59 [place] 10-325 mg 00 :00 every 8 Medical tablet (eight) Branch hours as needed for Pain (scale 7-10) for up to 7 days. Indication s: acute pain [facility] 2020-09 No 40mg Common (Triamcinol (Triamcinol 0-13 S pirit one) one) 00:00: - CHI 00 [facility] 2020-09 No 40mg Common (Triamcinol (Triamcinol 0-13 S pirit one) one) 00:00: - CHI 00 [facility]-09 No 40mg Common (Triamcinol (Triamcinol 0-13 S pirit one) one) 00:00: - CHI 00 [facility] 2020-09 No 40mg Common (Triamcinol (Triamcinol 0-13 S pirit one) one) 00:00: - CHI 00 [facility] 2020-09 No 40mg Common (Triamcinol (Triamcinol 0-13 S pirit one) one) 00:00: - CHI 00 [facility] Leland Ha 2020-09 No 40mg Common (Triamcinol (Triamcinol 0-13 S pirit one) one) 00:00: - CHI 00 [facility] Leland Ha 2020-09 No 40mg Common (Triamcinol (Triamcinol 0-13 S pirit one) one) 00:00: - CHI 00 [facility] 2020-09 No 40mg Common (Triamcinol (Triamcinol 0-13 S pirit one) one) 00:00: - CHI 00 [facility] 2020-09 No 40mg Common (Triamcinol (Triamcinol 0-13 S pirit one) one) 00:00: - CHI 00 [facility] Kenalog Kenalog 1 No 40mg Common (Triamcinol (Triamcinol 0-13 S pirit one) one) 00:00: - CHI 00 [facility] Benzonatate Benzonatate 1 2020- No 1{capsu TID Benzonatat 200 MG 200 MG 0-13 10-23 le} e 200 MG 00:00: 00:00 00 :00 Bupivicaine Bupivicaine 2020-0 No 2.5mg Common [place] 9-28 Spirit 00:00: - CHI 00 [facility] Kenalog Kenalog 2020-0 No 40mg Common (Triamcinol (Triamcinol 9-28 S pirit one) one) 00:00: - CHI 00 [facility] Bupivicaine Bupivicaine 2020-0 No 2.5mg Common [place] 9-28 Spirit 00:00: - CHI 00 [facility] Kenalog Kenalog 2020-0 No 40mg Common (Triamcinol (Triamcinol 9-28 S pirit one) one) 00:00: - CHI 00 [facility] Bupivicaine Bupivicaine 2020-0 No 2.5mg Common [place] 9-28 Spirit 00:00: - CHI 00 [facility] Kenalog Kenalog 2020-0 No 40mg Common (Triamcinol (Triamcinol 9-28 S pirit one) one) 00:00: - CHI 00 [facility] Bupivicaine Bupivicaine 2020-0 No 2.5mg Common [place] 9-28 Spirit 00:00: - CHI 00 [facility] Kenalog Kenalog 2020-0 No 40mg Common (Triamcinol (Triamcinol 9-28 S pirit one) one) 00:00: - CHI 00 [facility] Bupivicaine Bupivicaine 2020-0 No 2.5mg Common [place] 9-28 Spirit 00:00: - CHI 00 [facility] Kenalog Kenalog 2020-0 No 40mg Common (Triamcinol (Triamcinol 9-28 S pirit one) one) 00:00: - CHI 00 [facility] Bupivicaine Bupivicaine 2020-0 No 2.5mg Common [place] - Spirit 00:00: - CHI 00 [facility] Kenalog Kenalog 2020-0 No 40mg Common (Triamcinol (Triamcinol 9-28 S pirit one) one) 00:00: - CHI 00 [facility] Bupivicaine Bupivicaine 2020-0 No 2.5mg Common [place] 06-26 Spirit 00:00: - CHI 00 [facility] Kenalog Kenalog 2020-0 No 40mg Common (Triamcinol (Triamcinol - S pirit one) one) 00:00: - CHI 00 [facility] Bupivicaine Bupivicaine 2020-0 No 2.5mg Common [place] 06-26 Spirit 00:00: - CHI 00 [facility] Kenalog Kenalog 2020-0 No 40mg Common (Triamcinol (Triamcinol - S pirit one) one) 00:00: - CHI 00 [facility] Bupivicaine Bupivicaine 2020-0 No 2.5mg Common [place] - Spirit 00:00: - CHI 00 [facility] Kenalog Kenalog 2020-0 No 40mg Common (Triamcinol (Triamcinol 9-28 S pirit one) one) 00:00: - CHI 00 [facility] Bupivicaine Bupivicaine 2020-0 No 2.5mg Common [place] 06-26 Spirit 00:00: - CHI 00 [facility] Kenalog Kenalog 2020-0 No 40mg Common (Triamcinol (Triamcinol 9-28 S pirit one) one) 00:00: - CHI 00 [facility] traMADol traMADol 2020-0 1- No 1{table traMADol HCl 50 MG HCl 50 MG 06-26 1005 t_as_ne HCl 50 MG 00:00: 00:00 eded} 00 :00 Bupivicaine Bupivicaine 2020-0 No 2.5mg Common [place] 8-24 Spirit 00:00: - CHI 00 [facility] Kenalog Kenalog 2020-0 No 40mg Common (Triamcinol (Triamcinol 8-24 S pirit one) one) 00:00: - CHI 00 [facility] Bupivicaine Bupivicaine 1-0 No 2.5mg Common [place] 8-24 Spirit 00:00: - CHI 00 [facility] Kenalog Kenalog 2020-0 No 40mg Common (Triamcinol (Triamcinol 8-24 S pirit one) one) 00:00: - CHI 00 [facility] Bupivicaine Bupivicaine 2020-0 No 2.5mg Common [place] 8-24 Spirit 00:00: - CHI 00 [facility] Kenalog Kenalog 2020-0 No 40mg Common (Triamcinol (Triamcinol 8-24 S pirit one) one) 00:00: - CHI 00 [facility] Bupivicaine Bupivicaine 1-0 No 2.5mg Common [place] 8-24 Spirit 00:00: - CHI 00 [facility] Kenalog Kenalog 2020-0 No 40mg Common (Triamcinol (Triamcinol 8-24 S pirit one) one) 00:00: - CHI 00 [facility] Bupivicaine Bupivicaine 2020-0 No 2.5mg Common [place] 8-24 Spirit 00:00: - CHI 00 [facility] Kenalog Kenalog 2020-0 No 40mg Common (Triamcinol (Triamcinol 8-24 S pirit one) one) 00:00: - CHI 00 [facility] Bupivicaine Bupivicaine 1-0 No 2.5mg Common [place] 8-24 Spirit 00:00: - CHI 00 [facility] Kenalog Kenalog 1-0 No 40mg Common (Triamcinol (Triamcinol 8-24 S pirit one) one) 00:00: - CHI 00 [facility] Bupivicaine Bupivicaine 1-0 No 2.5mg Common [place] 8-24 Spirit 00:00: - CHI 00 [facility] Kenalog Kenalog 1-0 No 40mg Common (Triamcinol (Triamcinol 8-24 S pirit one) one) 00:00: - CHI 00 [facility] Bupivicaine Bupivicaine 1-0 No 2.5mg Common [place] 8-24 Spirit 00:00: - CHI 00 [facility] Kenalog Kenalog 2020-0 No 40mg Common (Triamcinol (Triamcinol 8-24 S pirit one) one) 00:00: - CHI 00 [facility] Bupivicaine Bupivicaine 1-0 No 2.5mg Common [place] 8-24 Spirit 00:00: - CHI 00 [facility] Kenalog Kenalog 2020-0 No 40mg Common (Triamcinol (Triamcinol 8-24 S pirit one) one) 00:00: - CHI 00 [facility] Bupivicaine Bupivicaine 2020-0 No 2.5mg Common [place] 8-24 Spirit 00:00: - CHI 00 [facility] Kenalog Kenalog 2020-0 No 40mg Common (Triamcinol (Triamcinol 8-24 S pirit one) one) 00:00: - CHI 00 [facility] atorvastati 2018-0 Yes 80mg Take 1 Univ [...] mouth [place] 00 daily. Medical Branch pantoprazol 2017-0 Yes 40mg Take 1 Univ ers e [...] mouth [place] 00 daily. Medical Branch pantoprazol 2017-0 Yes 40mg Take 1 Univ ers e [...] XL 50 mg 24 00:00: mouth 2 Lauir as hr tablet 00 (two) Medical times [...] Completed Common Spirit - (Triamcinolone) (Triamcinolone) 09:32:00 [facility] Bupivicaine [place] Bupivicaine [place] 2021-06-26 Completed Common Spirit - 09:38:00 [facility] Leland Ha 2021-06-26 Completed Common Spirit - (Triamcinolone) (Triamcinolone) 09:38:00 [facility] Bupivicaine [place] Bupivicaine [place] 2021-06-26 Completed Common Spirit - 09:38:00 [facility] L[place] Ha 2021-06-26 Completed Common Spirit - (Triamcinolone) (Triamcinolone) 09:38:00 [facility] Bupivicaine [place] Bupivicaine [place] 2021-06-26 Completed Common Spirit - 09:38:00 [facility] L[place] Ha 2021-06-26 Completed Common Spirit - (Triamcinolone) (Triamcinolone) 09:38:00 [facility] Bupivicaine [place] Bupivicaine [place] 2021-06-26 Completed Common Spirit - 09:38:00 [facility] L[place] Ha 2021-06-26 Completed Common Spirit - (Triamcinolone) (Triamcinolone) 09:38:00 [facility] Bupivicaine [place] Bupivicaine [place] 2021-05-22 Completed Common Spirit - 08:55:00 [facility] [place] Ha 2021-05-22 Completed Common Spirit - (Triamcinolone) (Triamcinolone) 08:55:00 [facility] Bupivicaine [place] Bupivicaine [place] 2021-05-22 Completed Common Spirit - 08:55:00 [facility] L[place] Ha 2021-05-22 Completed Common Spirit - (Triamcinolone) (Triamcinolone) 08:55:00 [facility] Bupivicaine [place] Bupivicaine [place] 2021-05-22 Completed Common Spirit - 08:55:00 [facility] L[place] Ha 2021-05-22 Completed Common Spirit - (Triamcinolone) (Triamcinolone) 08:55:00 [facility] Bupivicaine [place] Bupivicaine [place] 2021-05-22 Completed Common Spirit - 08:55:00 [facility] L[place] Ha 2021-05-22 Completed Common Spirit - (Triamcinolone) (Triamcinolone) 08:55:00 [facility] Pneumococcal 2018-01-26 Completed University o f [...] 2015-01-11 Completed Common S pirit - 14:09:00 [facility] Adacel (Tdap) Adacel (Tdap) 2015-01-11 Completed Common S pirit - 14:09:00 [facility] Adacel (Tdap) Adacel (Tdap) 2015-01-11 Completed Common S pirit - 14:09:00 [facility] Adacel (Tdap) Adacel (Tdap) 2015-01-11 Completed Common S pirit - 14:09:00 [facility] Adacel (Tdap) Adacel (Tdap) 2015-01-11 Completed Common S pirit - 14:09:00 [facility] Adacel (Tdap) Adacel (Tdap) 2015-01-11 Completed Common S pirit - 14:09:00 [facility] Adacel (Tdap) Adacel (Tdap) 2015-01-11 Completed Common S pirit - 14:09:00 [facility] Adacel (Tdap) Adacel (Tdap) 2015-01-11 Completed Common S pirit - 14:09:00 [facility] Adacel (Tdap) Adacel (Tdap) 2015-01-11 Completed Common S pirit - 14:09:00 [facility] Adacel (Tdap) Adacel (Tdap) 2015-01-11 Completed Common S pirit - 14:09:00 [facility] Adacel (Tdap) Adacel (Tdap) 2015-01-11 Completed Common S pirit - 14:09:00 [facility] Adacel (Tdap) Adacel (Tdap) 2015-01-11 Completed Common S pirit - 14:09:00 [facility] Adacel (Tdap) Adacel (Tdap) 2015-01-11 Completed Common S pirit - 14:09:00 [facility] Adacel (Tdap) Adacel (Tdap) 2015-01-11 Completed Common S pirit - 14:09:00 [facility] Adacel (Tdap) Adacel (Tdap) 2015-01-11 Completed Common S pirit - 14:09:00 [facility] Adacel (Tdap) Adacel (Tdap) 2015-01-11 Completed Common S pirit - 14:09:00 [facility] Adacel (Tdap) Adacel (Tdap) 2015-01-11 Completed Common S pirit - 14:09:00 [facility] Adacel (Tdap) Adacel (Tdap) 2015-01-11 Completed Common S pirit - 14:09:00 [facility] Adacel (Tdap) Adacel (Tdap) 2015-01-11 Completed Common S pirit - 14:09:00 [facility] Adacel (Tdap) Adacel (Tdap) 2015-01-11 Completed Common S pirit - 14:09:00 [facility] Vital Signs Vital Name Observation Time Observation Value Comments Source Systolic blood 2022-08-30 20:50:00 92 mm[Hg] Univer [facility] Diastolic blood 2022-08-30 20:50:00 64 mm[Hg] Unive rsity of pressure [facility] Heart rate 2022-08-30 20:50:00 53 /min [facility] Respiratory rate 2022-08-30 20:50:00 20 /min [facility] Oxygen saturation in 2022-08-30 20:50:00 94 /min University Arterial blood by [facility] Pulse oximetry Branch Body temperature 2022-08-30 13:47:[address] [facility] Body height 2022-08-30 13:47:00 175.3 cm [facility] Body weight 2022-08-30 13:47:00 92.987 kg [facility] BMI 2022-08-30 13:47:00 30.27 kg/m2 [facility] height 2022-07-31 14:40:00 66 [in_i] Common [facility] weight 2022-07-31 14:40:00 201.0 [lb_av] Common [facility] temperature 2022-07-31 14:40:00 98.2 [degF] [facility] bmi 2022-07-31 14:40:00 32.44 kg/m2 [facility] oximetry 2022-07-31 14:40:00 97 % [facility] respiratory rate 2022-07-31 14:40:00 17 /min Comm on [facility] blood pressure 2022-07-31 14:40:00 135 mm[Hg] Common [facility] - systolic [facility] blood pressure 2022-07-31 14:40:00 72 mm[Hg] Common [facility] - diastolic [facility] Systolic blood 2022-05-24 20:23:00 112 mm[Hg] Univer sity of [facility] Diastolic blood 2022-05-24 20:23:00 65 mm[Hg] Unive rsity of pressure [facility] Heart rate 2022-05-24 20:23:00 68 /min [facility] Branch Body temperature 2022-05-24 20:23:[address] [facility] Respiratory rate 2022-05-24 20:23:00 18 /min [facility] Oxygen saturation in 2022-05-24 20:23:00 96 /min [facility] blood by [facility] Pulse oximetry Branch Body height 2022-05-23 19:38:00 175.3 cm Universi ty [facility] Body weight 2022-05-23 19:38:00 92.987 kg Universi ty [facility] BMI 2022-05-23 19:38:00 30.27 kg/m2 Universi [facility] height 2022-04-18 10:00:00 66 [in_i] [facility] weight 2022-04-18 10:00:00 209.0 [lb_av] [facility] temperature 2022-04-18 10:00:00 98.1 [degF] [facility] bmi 2022-04-18 10:00:00 33.73 kg/m2 [facility] oximetry 2022-04-18 10:00:00 95 % [facility] respiratory rate 2022-04-18 10:00:00 16 /min Comm on [facility] blood pressure 2022-04-18 10:00:00 132 mm[Hg] Common [facility] - systolic [facility] blood pressure 2022-04-18 10:00:00 73 mm[Hg] Common [facility] - diastolic [facility] height 2022-04-04 11:10:00 66 [in_i] Common [facility] weight 2022-04-04 11:10:00 197 [lb_av] [facility] temperature 2022-04-04 11:10:00 98 [degF] [facility] bmi 2022-04-04 11:10:00 31.79 kg/m2 [facility] blood pressure 2022-04-04 11:10:00 125 mm[Hg] Common [facility] - systolic [facility] blood pressure 2022-04-04 11:10:00 65 mm[Hg] Common [facility] - diastolic [facility] height 2022-02-14 08:20:00 66 [in_i] [facility] weight 2022-02-14 08:20:00 197.3 [lb_av] Common [facility] temperature 2022-02-14 08:20:00 97.3 [degF] Common S pirit [facility] bmi 2022-02-14 08:20:00 31.84 kg/m2 [facility] oximetry 2022-02-14 08:20:00 96 % Common [facility] respiratory rate 2022-02-14 08:20:00 16 /min Comm on [facility] blood pressure 2022-02-14 08:20:00 114 mm[Hg] Common [facility] - systolic [facility] blood pressure 2022-02-14 08:20:00 62 mm[Hg] Common [facility] - diastolic [facility] height 2022-01-17 08:10:00 66 [in_i] Common S pirit [facility] weight 2022-01-17 08:10:00 195.6 [lb_av] [facility] temperature 2022-01-17 08:10:00 98.3 [degF] Common S pirit [facility] bmi 2022-01-17 08:10:00 31.57 kg/m2 Common S pirit [facility] oximetry 2022-01-17 08:10:00 98 % Common S [facility] respiratory rate 2022-01-17 08:10:00 17 /min Comm on [facility] blood pressure 2022-01-17 08:10:00 133 mm[Hg] Common [facility] - systolic [facility] blood pressure 2022-01-17 08:10:00 72 mm[Hg] Common [facility] - diastolic [facility] height 2021-10-16 08:20:00 66 [in_i] Common S pirit [facility] weight 2021-10-16 08:20:00 194.9 [lb_av] Common [facility] temperature 2021-10-16 08:20:00 98.2 [degF] Common S pirit [facility] bmi 2021-10-16 08:20:00 31.45 kg/m2 Common S pirit [facility] oximetry 2021-10-16 08:20:00 97 % Common S [facility] respiratory rate 2021-10-16 08:20:00 17 /min Comm on [facility] height 2021-10-16 08:20:00 66 [in_i] Common [facility] weight 2021-10-16 08:20:00 194.9 [lb_av] [facility] temperature 2021-10-16 08:20:00 98.2 [degF] Common S pirit [facility] bmi 2021-10-16 08:20:00 31.45 kg/m2 [facility] oximetry 2021-10-16 08:20:00 97 % [facility] S [facility] respiratory rate 2021-10-16 08:20:00 17 /min Comm on [facility] blood pressure 2021-10-16 08:20:00 132 mm[Hg] Common [facility] - systolic [facility] blood pressure 2021-10-16 08:20:00 77 mm[Hg] Common [facility] diastolic [facility] height 2021-10-08 13:10:00 66 [in_i] Common [facility] weight 2021-10-08 13:10:00 195.3 [lb_av] [facility] temperature 2021-10-08 13:10:00 98.1 [degF] Common S pirit [facility] bmi 2021-10-08 13:10:00 31.52 kg/m2 Common S pirit - [facility] oximetry 2021-10-08 13:10:00 97 % Common S pirit - [facility] respiratory rate 2021-10-08 13:10:00 17 /min Comm on Spirit - [facility] blood pressure 2021-10-08 13:10:00 132 mm[Hg] Common [facility] - systolic [facility] blood pressure 2021-10-08 13:10:00 73 mm[Hg] Common [facility] - diastolic [facility] Procedures Procedure Date / Time Performing Clinician Source Performed BASIC METABOLIC PANEL 2022-08-30 17:22:00 Gertrude Chinchilla [facility] (NA, K, CL, CO2, GLUCOSE, Medica l Branch BUN, CREATININE, CA) URINALYSIS 2022-08-30 14:21:00 Gertrude Chinchilla [facility] URINE DRUG (IMMUNOASSAY) 2022-08-30 14:21:00 Gertrude Chinchilla [facility] Medical [facility] SCREEN W/O REFLEX XR CHEST 1 VW 2022-08-30 14:04:16 Gertrude Chinchilla [facility] MAGNESIUM 2022-08-30 14:03:00 Gertrude Chinchilla [facility] TROPONIN I 2022-08-30 14:03:00 Gertrude Chinchilla [facility] COMP. METABOLIC PANEL 2022-08-30 14:03:00 Gertrude Chinchilla [facility] ([id number]) [facility] ETHANOL 2022-08-30 14:03:00 Gertrude Chinchilla [facility] CBC WITH DIFF 2022-08-30 14:03:00 Gertrude Chinchilla [facility] XR CHEST 1 VW 2022-05-24 11:38:14 Alisa [facility] MAGNESIUM 2022-05-24 08:56:00 Alisa [facility] TROPONIN I 2022-05-24 08:56:00 Alisa [facility] BASIC METABOLIC PANEL 2022-05-24 08:56:00 Callie Cuellar [facility] (NA, K, CL, CO2, GLUCOSE, Medica l Branch BUN, CREATININE, CA) CBC WITH DIFF 2022-05-24 08:56:00 Alisa [facility] TROPONIN I 2022-05-24 03:51:00 Callie Cuellar [facility] XR KUB 2022-05-23 22:25:58 Callie Cuellar [facility] URINALYSIS 2022-05-23 22:15:00 Gertrude Chinchilla [facility] CREATININE, URINE RANDOM 2022-05-23 22:15:00 Callie Cuellar [facility] SODIUM, URINE RANDOM 2022-05-23 22:15:00 Callie Cuellar [facility] URINE DRUG (IMMUNOASSAY) 2022-05-23 22:15:[address] [facility] SCREEN W/O REFLEX TRANSTHORACIC ECHO (TTE) 2022-05-23 20:33:00 Callie Cuellar [facility] COVID-19 (ID NOW RAPID 2022-05-23 16:39:00 Gertrude Chinchilla [facility] TESTING) Medical Branch LAB ONLY COVID 2022-05-23 16:39:00 Gertrude Chinchilla [facility] INTERPRETATION [facility] TROPONIN I 2022-05-23 13:42:00 Gertrude Chinchilla [facility] COMP. METABOLIC PANEL 2022-05-23 13:42:00 Gertrude Chinchilla [facility] ([id number]) Medical Branch CBC WITH DIFF 2022-05-23 13:42:00 Gertrude Chinchilla [facility] HB ECG ROUTINE & RHYTHM 2022-05-23 13:12:28 [facility] EKG-12 LEAD 2022-05-23 12:44:00 Gertrude Chinchilla [facility] AUTHORIZATION FOR RELEASE 2021-11-12 06:01:00 Doctor Unassigned, [facility] [place] Medical Branch Encounters Start End Encounter Admission Attending Care Care Encounter Source Date/Time Date/Time Type Type Clinicians Facility Department ID 2022-10-07 [facility] [id number] Common 09:37:01 [facility] [address] [facility] 2022-10-04 Outpatient Ross, STLMLC STLMLC [id number] Common 16:32:01 Carola [facility] 2022-08-16 Outpatient Ross, STLMLC STLMLC [id number] Common 15:23:00 Carola [address] [facility] 2022-07-31 Outpatient Ross, STLMLC STLMLC [id number] Common 14:32:00 Carola [facility] 2022-07-29 Outpatient Ross, STLMLC STLMLC [id number] Common 16:01:01 Carola [facility] 2022-07-19 Outpatient Ross, STLMLC STLMLC [id number] Common 16:30:01 Carola [facility] 2022-07-16 Outpatient Ross, STLMLC STLMLC [id number] Common 10:11:00 Carola [facility] 2022-06-25 Outpatient Ross, STLMLC STLMLC [id number] Common 14:39:00 Carola [facility] 2022-05-16 Outpatient Ross, STLMLC STLMLC [id number] Common 12:11:01 Carola [facility] 2021-10-24 Outpatient Ross, STLMLC STLMLC [id number] Common 13:24:10 Carola 22296 [facility] 2021-10-24 Outpatient Ross, STLMLC STLMLC [id number] Common 13:06:32 Carola 22481 [facility] 2021-10-24 Outpatient Ross, STLMLC STLMLC [id number] Common 12:40:59 Carola 49683 [facility] 2021-10-24 Outpatient Ross, STLMLC STLMLC [id number] Common 12:30:18 Carola 28001 [facility] 2021-10-24 Outpatient Ross, STLMLC STLMLC [id number] Common 12:29:04 Carola 7[address]16 [facility] 2021-10-24 Outpatient Ross, STLMLC [facility] [id number] Common 11:52:46 Carola 11512 [facility] 2021-10-24 Outpatient Ross[facility] [id number] Common 11:44:17 Carola 08078 [facility] 2021-10-24 Outpatient Ross, STLMLC [facility] [id number] Common 11:37:11 Carola 58846 [facility] 2021-07-28 Emergency [facility] [id number] Univers [facility]22-10-03 2022-10-03 Outpatient [facility] [id number] Tim 15:56:50 15:56:50 0105 [facility] 2022-09-04 2022-09-04 Outpatient [facility] [id number] Tim 08:12:48 08:12:48 1207 [facility] 2022-09-03 2022-09-03 Outpatient [facility] [id number] Tim 14:40:55 14:40:55 1206 [facility] 2022-08-30 2022-08-30 Emergency X [facility] [id number] Univers 07:45:00 15:39:00 [facility] 2022-08-30 2022-08-30 Emergency [facility] [id number] Univers 07:45:00 15:39:00 Gertrude LUJAN [id number] [facility] [id number] [facility] [id number] [place] [id number] Branch 2022-08-12 2022-08-12 Outpatient [place] JOSE C BRADEN 512 Devoted 00:00:00 00:00:00 _B 1114 Medica l Group 2022-07-31 2022-07-31 [facility] [id number] Co mmon 00:00:00 00:00:00 VISIT [facility] CHI LEVEL 4 [facility] 2022-06-21 2022-06-21 Outpatient Cobb_T JOSE C BRADENG [id number] Devoted 00:00:00 00:00:00 0923 Medica l Group 2022-06-20 2022-06-20 Outpatient Cobb_T [facility] [id number] Devoted 00:00:00 00:00:00 0922 Medica l Group 2022-06-06 2022-06-06 (TEL) STLMLC STLMLC [id number] Co mmon 00:00:00 00:00:00 Spirit - CHI [facility] 2022-05-27 2022-05-27 Transition SIOBHAN Rollins [id number] Univers 00:00:00 00:00:00 of Care Simón PEREA [id number] ity [facility] [id number] [facility] [id number] [facility] 403 Branch 2022-05-23 2022-05-24 Outpatient X ALISA [facility] [id number] Univers 07:39:00 17:43:00 CALLIE tony [facility] 2022-05-23 2022-05-24 Emergency Gertrude Chinchilla [facility] 1.2.8 40.114 [id number] Univers 07:39:00 17:43:00 Callie Cuellar [id number] ity [facility] [id number] [facility] [id number] [facility] 081 Branch 2022-05-09 2022-05-09 Outpatient Cobb_T [place] [facility] [place] [id number] Devoted 00:00:00 00:00:00 0811 Medica l Group 2022-04-18 2022-04-18 OFFICE STLMLC STLC [id number] Co mmon 00:00:00 00:00:00 VISIT Spirit ESTAB PT - CHI LEVEL 4 [facility] 2022-04-18 2022-04-18 (TEL) STLMLC STLMLC [id number] Co mmon 00:00:00 00:00:00 Spirit - CHI [facility] 2022-04-12 2022-04-12 Outpatient Deshazo_T DMG [facility] [place] [id number] -[id number] Devoted 03:30:00 03:30:00 0715 Medica l Group 2022-04-10 2022-04-10 Outpatient Deshazo_T DMG DM [id number] Devoted 04:58:00 04:58:00 0713 Medica l Group 2022-04-04 2022-04-04 (TEL) STLMLC STLMLC [id number] Co mmon 00:00:00 00:00:00 Spirit - CHI [facility] 2022-04-04 2022-04-04 (EST. STLMLC STLMLC [id number] Co mmon 00:00:00 00:00:00 VIDEO) EST Spi rit VIRTUAL - CHI VIDEO [facility] 2022-03-26 2022-03-26 (TEL) STLMLC STLMLC [id number] Co mmon 00:00:00 00:00:00 Spirit - CHI [facility] 2022-02-14 2022-02-14 OFFICE STLMLC STLMLC [id number] Co mmon 00:00:00 00:00:00 VISIT Spirit ESTAB PT - CHI LEVEL 5 [facility] 2022-01-22 2022-01-22 (TEL) STLMLC STLMLC [id number] Co mmon 00:00:00 00:00:00 Spirit - CHI [facility] 2022-01-17 2022-01-17 OFFICE STLMLC STLMLC [id number] Co mmon 00:00:00 00:00:00 VISIT Spirit ESTAB PT - CHI LEVEL 4 [facility] 2021-11-12 2021-11-12 Orders Doctor NIR [id number] Univers 00:00:00 00:00:00 Only Unassigned, SHAI [id number] ity of [place] [facility] [id number] Lauri as [id number] Medi usman 009 Branch 2021-10-16 2021-10-16 SUB ANNUAL STLMLC STLMLC [id number] Common 00:00:00 00:00:00 MCR Spirit WELLNESS - CHI VISIT [facility] 2021-10-16 2021-10-16 OFFICE STLMLC STLMLC [id number] Co mmon 00:00:00 00:00:00 VISIT Spirit ESTAB PT - CHI LEVEL 4 [facility] 2021-10-09 2021-10-09 Outpatient R NEELA ALBARADO [facility] [id number] Univers 14:20:00 14:20:00 [facility]A [facility] 2021-10-09 2021-10-09 (TEL) STLMLC STLMLC [id number] Co mmon 00:00:00 00:00:00 [facility] 2021-10-08 2021-10-08 (HOSP F/U) STLMLC STLMLC [id number] Common 00:00:00 00:00:[address] [facility] Follow Up - [facility] 2021-10-05 2021-10-05 (TEL) STLMLC STLMLC [id number] Co mmon 00:00:00 00:00:00 [facility] 2021-10-02 2021-10-02 Transition SIOBHAN Rollins [id number] Univers 00:00:00 00:00:00 of Care Simón PEREA [id number] [id number] [id number] [facility] usman 403 Branch 2021-10-01 2021-10-01 (TEL) STLMLC STLC [id number] Co mmon 00:00:00 00:00:00 [facility] 2021-09-27 2021-09-30 Outpatient X GELY [facility] [id number] Univers 17:38:00 15:22:00 [facility] 2021-09-27 2021-09-30 Outpatient X GELY, [facility] [id number] Univers 17:38:00 15:22:00 [facility] 2021-09-27 2021-09-30 Emergency Silva Szymanski [facility] 1.2.840 .114 [id number] Univers 17:38:00 15:22:00 Vikash Grimaldo [id number] [id number] [id number] [facility] usman 081 Branch 2021-09-19 2021-09-19 Outpatient OWENS_T DM DMG [id number] Devoted 01:00:00 01:00:00 1222 Medica l Group 2021-09-05 2021-09-05 CAV Tomora 2.16.840. 2.16.840.1. CLAC [id number] Devoted 14:30:00 15:30:00 Ruiz [id number]. [facility] [id number] 2021-08-10 2021-08-10 [facility] [id number] Devoted 10:31:00 10:31:00 1112 Medica l Group 2021-08-07 2021-08-07 [facility] [id number] Devoted 02:14:00 02:14:00 1109 Medica l Group 2021-07-17 2021-07-17 (TEL) STLMLC STLMLC [id number] Co mmon 00:00:00 00:00:00 [facility] 2021-07-10 2021-07-10 (TEL) STLMLC STLMLC [id number] Co mmon 00:00:00 00:00:00 [facility] 2021-07-04 2021-07-04 (TEL) STLMLC STLMLC [id number] Co mmon 00:00:00 00:00:00 [facility] 2021-06-26 2021-06-26 (TEL) STLMLC STLMLC [id number] Co mmon 00:00:00 00:00:00 [facility] 2021-05-29 2021-05-29 Outpatient STLMLC STLMLC [id number] Common 00:00:00 00:00:00 [facility] 2021-05-22 2021-05-22 Outpatient CURRY_S [facility] [place] [id number] Devoted 05:13:00 05:13:00 0824 Medica l Group 2021-05-22 2021-05-22 Outpatient STLMLC STLMLC [id number] Common 00:00:00 00:00:00 [facility] 2021-05-04 2021-05-04 Outpatient STLMLC STLMLC [id number] Common 00:00:00 00:00:00 [facility] 2021-04-30 2021-04-30 Outpatient STLMLC STLMLC [id number] Common 00:00:00 00:00:00 [facility] 2021-04-30 2021-04-30 Outpatient STLMLC STLMLC [id number] Common 00:00:00 00:00:00 [facility] 2021-04-06 2021-04-06 Outpatient STLMLC STLMLC [id number] Common 00:00:00 00:00:00 [facility] 2021-01-29 2021-01-29 Outpatient DMG DMG [id number] Devoted 06:02:00 06:02:00 0503 Medica l Group 2021-01-18 2021-01-18 Outpatient DMG [facility] [id number] Devoted 12:00:00 12:00:00 0422 Medica l Group 2020-08-14 2020-08-14 Emergency [facility] 1.2.840.114 [id number] 14:12:00 15:54:00 Love [place] [id number] [place] 4.2.7.2.686 [place] [id number] 2020-08-14 2020-08-14 Emergency [facility] 1.2.840.114 [id number] [facility] 14:12:00 15:54:00 Love Mayuri [place] [id number] [facility] 4.2.7.2.686 [facility] [id number] [facility] 084 Branch Results Test Description Test Time Test Comments Results Result Comments Source BASIC METABOLIC PANEL (NA, K, CL, CO2, GLUCOSE, BUN, 2022-08 18:07:32 CREATININE, CA) Test Item Value Reference Range Interpretation Comme nts NA (test code = 3724758972) 143 mmol/L 135-145 K (test code = 7525112995) 4.1 mmol/L 3.5-5.0 CL (test code = 9982548703) 115 mmol/L 98-108 H CO2 TOTAL (test code = 8466180364) 19 mmol/L 23-31 L AGAP (test code = 1473950487) 2-16 BUN (test code = 2617566749) 33 mg/dL 7-23 H GLUCOSE (test code = 5952193522) 66 mg/dL 70-110 L CREATININE (test code = 1.99 mg/dL 0.60-1.25 H 9858742931) CALCIUM (test code = 1515600734) 8.3 mg/dL 8.6-10.6 L eGFR (test code = 2856656082) mL/min/1.73m2 ISIDORO (test code = ISIDORO) Association [...] tests). Lab Interpretation (test code = Abnormal 21165-3) [id number] 15:44:49 Test Item Value Reference Interpretation Comments Range TROPONIN I (test 0.004 ng/mL See_Comment [Automated code = 4632835748) message] The system which generated this result [...] biotin. Lab Interpretation Normal (test code = 52647-1) [facility] 15:27:10 ALCOHOL<10mg/dL08/30/2022 9:27 AM [facility]<10 Jfoblqwa30-954 Toxic>[address] ABSTRACTOR>400 Fatalities [facility]Un[facility] Club[facility]. METABOLIC PANEL (13679) 2022-08-30 15:24:23 Test Item Value Reference Range Interpretation Comments NA (test code = 144 mmol/L 135-145 3741808132) K (test code = 3.9 mmol/L 3.5-5.0 9815142751) CL (test code = 109 mmol/L 98-108 H 8675035492) CO2 TOTAL (test code = 22 mmol/L 23-31 L 9847610027) AGAP (test code = 2-16 2618354680) BUN (test code = 37 mg/dL 7-23 H 2809166103) GLUCOSE (test code = 86 mg/dL 70-110 8865699565) CREATININE (test code = 2.47 mg/dL 0.60-1.25 H 4838295849) TOTAL BILI (test code = 0.8 mg/dL 0.1-1.9 9463530244) CALCIUM (test code = 9.3 mg/dL 8.6-10.6 8792108217) T PROTEIN (test code = 7.0 g/dL 6.3-8.2 1474554548) ALBUMIN (test code = 4.4 g/dL 3.5-5.0 1015563866) ALK PHOS (test code = 119 U/L 34-122 9489392022) ALTv (test code = 22 U/L 5-50 1742-6) AST(SGOT) (test code = 38 U/L 13-40 2866596758) eGFR (test code = mL/min/1.73m2 3109002362) ISIDORO (test code = ISIDORO) Association of [...] tests). Lab Interpretation Abnormal (test code = 99278-5) [facility]23 Test Item Value Reference Range Interpretation Comments MAGNESIUM (test code = 0354880558) 2.1 mg/dL 1.7-2.4 Lab Interpretation (test code = Normal 45369-7) [facility] WITH [id number] 14:36:33 Test Item Value Reference Range Interpretation [...] RDW-SD (test code = 44.7 fL 38.5-51.6 17736-2) RDW-CV (test code = 13.2 % 12.1-15.4 788-0) PLT (test code = See_Comment [Automated 777-3) message] The sy stem which generated this result transmitted reference range : 150 - 328 10*3/ ?L. The reference r cuong was not used to interpret this result as normal/abnormal . MPV (test code = 9.7 fL 9.8-13.0 L 30540-2) NRBC/100 WBC (test See_Comment [Automat ed code = 7605780557) message] The system which generated this result transmitted reference range : 0.0 - 10.0 /100 WBCs. The refer ence range was not u sed to interpret th is result as normal/abnormal . NRBC x10^3 (test code See_Comment [Auto mated = 9485416818) message] The s ystem which generated this result transmitted reference range : 10*3/?L. The reference range was not used to interpret this result as normal/abnormal . GRAN MAT (NEUT) % 62.1 % (test code = 770-8) IMM GRAN % (test code 0.50 % = 3100315800) LYMPH % (test code = 22.6 % 736-9) MONO % (test code = 9.1 % 5905-5) EOS % (test code = 5.2 % 713-8) BASO % (test code = 0.5 % 706-2) GRAN MAT x10^3(ANC) 5.38 10*3/uL 1.99-6.95 (test code = 7854053375) IMM GRAN x10^3 (test 0.04 10*3/uL 0.00-0.06 code = 1277279954) LYMPH x10^3 (test code 1.96 10*3/uL 1.09-3.23 = 731-0) MONO x10^3 (test code 0.79 10*3/uL 0.36-1.02 = 742-7) EOS x10^3 (test code = 0.45 10*3/uL 0.06-0.53 711-2) BASO x10^3 (test code 0.04 10*3/uL 0.01-0.09 = 704-7) Lab Interpretation Abnormal (test code = 92921-7) [id number] 10:17[facility]19 Test Item Value Reference Interpretation Comments Range TROPONIN I (test 0.007 ng/mL See_Comment [Automated code = 9627580173) message] The system which generated this result [...] biotin. Lab Interpretation Normal (test code = 52962-4) [facility]38 Test Item Value Reference Range Interpretation Comments MAGNESIUM (test code = 6969349598) 2.1 mg/dL 1.7-2.4 Lab Interpretation (test code = Normal 29409-7) [facility] (NA, K, CL, CO2, GLUCOSE, BUN, CREATININE, CA)2022-05-24 10:05:18 Test Item Value Reference Range Interpretation Comments NA (test code = 136 mmol/L 135-145 9857364809) K (test code = 4.9 mmol/L 3.5-5 6116139031) CL (test code = 109 mmol/L 98-108 H 0222913547) CO2 TOTAL (test code = 21 mmol/L 23-31 L 1920701122) AGAP (test code = 2-16 1482094122) BUN (test code = 27 mg/dL 7-23 H 5159010906) GLUCOSE (test code = 89 mg/dL 70-110 4500536828) CREATININE (test code = 1.62 mg/dL 0.6-1.25 H 8907422209) CALCIUM (test code = 8.5 mg/dL 8.6-10.6 L 6173340427) eGFR (test code = mL/min/1.73m2 7352016218) ISIDORO (test code = ISIDORO) Association of [...] tests). Lab Interpretation Abnormal (test code = 43921-4) [facility] WITH [id number] 09:31:37 Test Item Value Reference Range Interpretation Comments WBC (test code = See_Comment [Automated 0090-2) message] The sy stem which generated this result transmitted reference range : 4.20 - 10.70 10*3/?L. The reference range was not used to interpret this result as normal/abnormal . RBC (test code = See_Comment L [Automated 639-8) message] The sy stem which generated this [...] RDW-SD (test code = 43.6 fL 38.5-51.6 98803-1) RDW-CV (test code = 13.1 % 12.1-15.4 788-0) PLT (test code = See_Comment [Automated 777-3) message] The sy stem which generated this result transmitted reference range : 150 - 328 10*3/ ?L. The reference r cuong was not used to interpret this result as normal/abnormal . MPV (test code = 9.3 fL 9.8-13 L 72970-5) NRBC/100 WBC (test See_Comment [Automat ed code = 6366608255) message] The system which generated this result transmitted reference range : 0.0 - 10.0 /100 WBCs. The refer ence range was not u sed to interpret th is result as normal/abnormal . NRBC x10^3 (test code See_Comment [Auto mated = 1538717927) message] The s ystem which generated this result transmitted reference range : 10*3/?L. The reference range was not used to interpret this result as normal/abnormal . GRAN MAT (NEUT) % 56.1 % (test code = 770-8) IMM GRAN % (test code 0.40 % = 0026437532) LYMPH % (test code = 27.1 % 736-9) MONO % (test code = 9.9 % 5905-5) EOS % (test code = 5.8 % 713-8) BASO % (test code = 0.7 % 706-2) GRAN MAT x10^3(ANC) 4.53 10*3/uL 1.99-6.95 (test code = 5692860913) IMM GRAN x10^3 (test 0.03 10*3/uL 0-0.06 code = 6139082798) LYMPH x10^3 (test code 2.19 10*3/uL 1.09-3.23 = 731-0) MONO x10^3 (test code 0.80 10*3/uL 0.36-1.02 = 742-7) EOS x10^3 (test code = 0.47 10*3/uL 0.06-0.53 711-2) BASO x10^3 (test code 0.06 10*3/uL 0.01-0.09 = 704-7) Lab Interpretation Abnormal (test code = 55018-2) [facility] [id number] 04:35:45 Test Item Value Reference Interpretation Comments Range TROPONIN I (test 0.004 ng/mL See_Comment [Automated code = 5911345407) message] The system which generated this result [...] biotin. Lab Interpretation Normal (test code = 93913-1) [facility]2022-[facility]-24 01:26:40 Test Item Value Reference Range Interpretation Comments Height (test code = in 2464918021) Weight (test code = lbs 2247404702) Systolic BP (test code = mmHg 8142171787) Diastolic BP (test code mmHg = 2343085778) Heart Rate (test code = bpm 8110031212) BSA (test code = 2.09 m2 6840678038) Ao root annulus (test 3.2 cm code = 3731025046) Ao root diam (test code 3.20 cm = 1879073575) Aortic root (test code = 3.2 cm 8239996310) LVOT diameter (test code 2.14 cm = 3732107644) LVIDD (test code = 5.00 cm 0069420653) IVS (test code = 1.31 cm 2910201183) Interventricular Septum 1.31 cm Diastolic Thickness by 2D (test code = 1159503) LVPWD (test code = 1.32 cm 1370670956) PW (test code = 1.32 cm 0.6-1.7 2392414310) EF(Teich) (test code = 61.30 % 7447279669) LVIDS (test code = 3.30 cm 9061715440) FS (test code = 33 % 3374267995) EF - 2D (test code = 61.30 % 77578603) LA size (test code = 3.6 cm 6781906801) TR Peak Mayank (test code = 261.9 cm/s 5441141129) Triscuspid Valve mmHg Regurgitation Peak Gradient (test code = 4132721840) LAV(MOD-sp4) (test code 59.10 mL = 7118368619) E wave decelartion time 0.23 s (test code = 0646279988) MV Peak E Mayank (test code 73.6 cm/s = 7912315698) MV stenosis pressure 1/2 70.2 ms time (test code = 1442480525) MV Peak A Mayank (test code 55.9 cm/s = 1594767865) E/A ratio (test code = ratio 7499591739) MV Prop V (test code = 58.20 cm/s 4274161928) MV E/e' septal (test 12.2 cm/s code = 4968637489) Tapse (test code = 2.9 cm 2234669053) LVOT stroke volume (test 103.80 cm3 code = 2165132384) LVOT peak mayank (test code 147.2 cm/s = 8244947678) LVOT mn grad (test code mmHg = 7231767706) AV LVOT peak gradient mmHg (test code = 2669465704) LVOT peak VTI (test code 28.7 cm = 9424647963) LV V1 mean (test code = 93.00 cm/s 4873441700) Aortic valve mean 119.4 cm/s velocity (test code = 0722070306) Ao peak mayank (test code = 165.6 cm/s 1851531281) Ao VTI (test code = 35.2 cm 5926840421) AV area by cont VTI 2.9 cm2 (test code = 9474441207) AV area peak mayank (test 3.2 cm2 code = 2976202545) Ao max PG (test code = 11.00 mm[Hg] 3423139589) AV peak gradient (test mmHg code = 5815039907) AV valve area (test code 2.90 cm2 = 5768878088) AV mean gradient (test mmHg code = 4309720782) Radiology Study observation (narrative) (test code = 88253-7) ISIDORO (test code = ISIDOOR) Formatting of this result is different from [...] color flow Doppler and spectral Doppler. [facility] [id number] 14:25:35 Test Item Value Reference Interpretation Comments Range TROPONIN I (test 0.009 ng/mL See_Comment [Automated code = 3147163553) message] The system which generated this result [...] biotin. Lab Interpretation Normal (test code = 04619-2) [facility]. METABOLIC PANEL (72404)2022-05-23 14:14:13 Test Item Value Reference Range Interpretation Comments NA (test code = 143 mmol/L 135-145 9613629494) K (test code = 5.0 mmol/L 3.5-5 5445763640) CL (test code = 111 mmol/L 98-108 H 0843673146) CO2 TOTAL (test code = 20 mmol/L 23-31 L 7844941028) AGAP (test code = 2-16 8142060591) BUN (test code = 30 mg/dL 7-23 H 7255780976) GLUCOSE (test code = 85 mg/dL 70-110 5657169015) CREATININE (test code = 2.07 mg/dL 0.6-1.25 H 6519029595) TOTAL BILI (test code = 0.6 mg/dL 0.1-1.3 3026072272) CALCIUM (test code = 9.0 mg/dL 8.6-10.6 1452162048) T PROTEIN (test code = 7.2 g/dL 6.3-8.2 1215565188) ALBUMIN (test code = 4.4 g/dL 3.5-5 7830228483) ALK PHOS (test code = 121 U/L 34-122 6119017955) ALTv (test code = 23 U/L 5-50 1742-6) AST(SGOT) (test code = 29 U/L 13-40 0143783646) eGFR (test code = mL/min/1.73m2 2808266038) ISIDORO (test code = ISIDORO) Association of [...] tests). Lab Interpretation Abnormal (test code = 00815-8) [facility] WITH [id number] 14:11:10 Test Item Value Reference Range Interpretation Comments WBC (test code = See_Comment H [Automated 2090-2) message] The sy stem which generated this result transmitted reference range : 4.20 - 10.70 10*3/?L. The reference range was not used to interpret this result as normal/abnormal . RBC (test code = See_Comment [Automated 229-8) message] The sy stem which generated this [...] RDW-SD (test code = 42.9 fL 38.5-51.6 60333-8) RDW-CV (test code = 12.9 % 12.1-15.4 788-0) PLT (test code = See_Comment H [Automated 777-3) message] The sy stem which generated this result transmitted reference range : 150 - 328 10*3/ ?L. The reference r cuong was not used to interpret this result as normal/abnormal . MPV (test code = 9.0 fL 9.8-13 L 80864-7) NRBC/100 WBC (test See_Comment [Automat ed code = 3092323536) message] The system which generated this result transmitted reference range : 0.0 - 10.0 /100 WBCs. The refer ence range was not u sed to interpret th is result as normal/abnormal . NRBC x10^3 (test code See_Comment [Auto mated = 1772002593) message] The s ystem which generated this result transmitted reference range : 10*3/?L. The reference range was not used to interpret this result as normal/abnormal . GRAN MAT (NEUT) % 71.9 % (test code = 770-8) IMM GRAN % (test code 0.40 % = 6341106434) LYMPH % (test code = 16.1 % 736-9) MONO % (test code = 8.4 % 5905-5) EOS % (test code = 2.5 % 713-8) BASO % (test code = 0.7 % 706-2) GRAN MAT x10^3(ANC) 8.20 10*3/uL 1.99-6.95 H (test code = 5381045088) IMM GRAN x10^3 (test 0.05 10*3/uL 0-0.06 code = 6555091260) LYMPH x10^3 (test code 1.84 10*3/uL 1.09-3.23 = 731-0) MONO x10^3 (test code 0.96 10*3/uL 0.36-1.02 = 742-7) EOS x10^3 (test code = 0.29 10*3/uL 0.06-0.53 711-2) BASO x10^3 (test code 0.08 10*3/uL 0.01-0.09 = 704-7) Lab Interpretation Abnormal (test code = 95023-5) [facility]"
--- NOTE | 2022-10-08 12:16 | RAD REPORT ---
EXAM DESCRIPTION: CT - Ct Stroke Brain Wo Cont - 10/08/2022 12:03 pm CLINICAL HISTORY: aphasia COMPARISON: March 30, 2023 TECHNIQUE: Computed axial tomography of the head was obtained. All CT scans are performed using dose optimization technique as appropriate and may include automated exposure control or mA/KV adjustment according to patient size. FINDINGS: An intracranial bleed is not seen . The ventricles are normal in caliber. No extra-axial fluid collection is noted. 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 Small old lacunar infarct left thalamus Fluid within the sinuses/ mastoids is not seen. IMPRESSION: No acute intracranial abnormality is seen. If patient's symptoms persist MRI of the bra in would be recommended. Nurse Rivas of the emergency room was notified at 12:01 p.m. October 08, 2022
[2022-10-08] MEDS ORDERED: NALOXONE HCL 2 MG/2 ML VIAL ONE (12:24)
[2022-10-08 12:25] LABS: Protime INR 0.9
--- NOTE | 2022-10-08 12:34 | RAD REPORT ---
EXAM DESCRIPTION: [facility] Single View10/08/2022 12:22 pm CLINICAL HISTORY: Stroke symptoms COMPARISON: September 30, 2022 FINDINGS: The lungs appear clear of acute infiltrate. The heart is normal size IMPRESSION: No acute abnormalities displayed
[2022-10-08 12:38] LABS: Urine Blood Negative (Negative); Urine Glucose Negative (Negative); Urine Protein Negative (Negative); Urine Specific Gravity 1.025 (1.005-1.030); Urine pH 5.5 (5.0-7.0)
[2022-10-08 12:42] LABS: Absolute Lymphocytes (CBC) 2.4 K/uL (0.7-4.9); Albumin 4.2 g/dL (3.4-5.0); Bilirubin Direct 0.1 mg/dL (0-0.2); Bilirubin Total 0.3 mg/dL (0.2-1.0); Hematocrit 43.8 % (39.6-49.0); Lymphocytes % 28.5 % (15.3-44.8); MCV 90.3 fL (80-100); MPV 7.8 fL (7.6-11.3); Magnesium 2.4 mg/dL (1.6-2.4); Potassium 4.6 mmol/L (3.5-5.1); Protein, Total 8.2 g/dL (6.4-8.2); RBC Red Blood Cell Count 4.85 M/uL (4.33-5.43); Troponin High Sensitivity 14.4 pg/mL (<58.9)
[2022-10-08 13:22] LABS: Arterial Blood Carboxyhemoglob 4.9 % (0-1.5); Blood Gas Oxyhemoglobin 63.7 % (94-97); Blood O2 Saturation 67.9 % (92-98.5)
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
--- NOTE | 2022-10-08 13:47 | EDPHYS ---
Physician Documentation [facility] Name: Wood Jj Age: 62 yrs Sex: Male : 1960 Arrival Date: 10/08/2022 Time: 11:51 Bed 23 Private MD: ED Physician Hiral Ross HPI: 10/08 12:17 This 62 yrs old Male presents to ER via EMS with complaints of Altered Mental Status. sp3 12:17 62-year-old male with a history of substance abuse, hypertension, prior myocardial sp3 infarction, hyperlipidemia presents with chief complaint dizziness and altered mental status. EMS was activated by a neighbor who is "a health aide" per EMS and EMS arrived to find patient confused and stating that he was mildly dizzy. He also admitted to cocaine use yesterday p.m. He denies any opioid or any other substance use. No benzodiazepines found on his medications as well. Arrival to the ED, patient was perseverating his speech and was further confused as per paramedics initial evaluation. This was confirmed verbally by them in the trauma bay. Code stroke was immediately called while we attempted initial ED vital signs and intravenous access. Patient continued to fall asleep while we were interviewing him but was maintaining his airway and did wake up in between briefly answer questions but remained to have abnormal speech pattern. History and physical as well as review of systems are limited secondary to this presentation. Please see [facility] for further discussion and decision making.. Historical: - Allergies: 12:06 Alprazolam; ph 12:06 Amitriptyline; "major agression"; ph 12:06 amphetamine aspartate; ph 12:06 amphetamine sulfate; ph 12:06 Ativan; ph 12:06 BENZODIAZEPINES; ph 12:06 dextroamphetamine saccharate; ph 12:06 dextroamphetamine sulfate; ph 12:06 diazepam; ph 12:06 ketorolac tromethamine; ph 12:06 Lorazepam; ph 12:06 PENICILLINS; ph 12:06 venom-honey bee; ph 12:06 Trazodone; ph 12:06 Valium; "makes my heart stop"; ph 12:06 venom-wasp; ph 12:06 Xanax; ph - Home Meds: 12:11 atorvastatin 40 mg oral tab 1 tab once daily [Active]; gabapentin 100 mg oral cap twice ph a day [Active]; modafinil 200 mg oral tab 1 tab once daily [Active]; duloxetine 20 mg oral cpDR 1 cap 2 times per day [Active]; methocarbamol 750 mg Oral tab 1 tab 4 times per day [Active]; metoprolol succinate 50 mg oral CSpX 1 cap once daily [Active]; tramadol 50 mg Oral tab 2 tabs every 6 hours [Active]; lisinopril 2.5 mg Oral tab 1 tab once daily [Active]; - PMHx: 12:06 drug abuse; Hypercholesterolemia; Hypertension; Myocardial infarction; stroke; ph - PSHx: 12:06 Appendectomy; eye sx; Hemorrhoidectomy; Hernia sx; ph - Immunization history:: Adult Immunizations unknown. - Social history:: Smoking status: unknown Patient uses street drugs, cocaine. ROS: 12:19 Unable to obtain ROS due to patient's inability to understand questions, patient being sp3 uncooperative. Exam: 12:19 Head/Face: Normocephalic, atraumatic. Chest/axilla: Normal chest wall appearance and sp3 motion. Nontender with no deformity. No lesions are appreciated. Respiratory: Lungs have equal breath sounds bilaterally, clear to auscultation and percussion. No rales, rhonchi or wheezes noted. No increased work of breathing, no retractions or nasal flaring. Abdomen/GI: Soft, non-tender, with normal bowel sounds. No distension or tympany. No guarding or rebound. No evidence of tenderness throughout. Skin: Warm, dry with normal turgor. Normal color with no rashes, no lesions, and no evidence of cellulitis. 12:19 Cardiovascular: Is bradycardic in the 40s to 50s but regular in rhythm.. 12:19 Neuro: Patient while awake moves all extremities and does not have any motor weakness on the gross level. He was perseverating his speech with stuttering but baseline is unknown. He does withdraw to pain on all extremities. He continues to fall asleep but is arousable with a supplies when he wakes up. Renal nerves are not accessible but his eyes do not cross or deviate. He does track properly. Pupils are 2 mm equal round and reactive to light. Limited further neuro exam.. 13:01 ECG was reviewed by the Attending Physician. EKG demonstrates sinus bradycardia at 50 sp3 bpm with normal axis, normal intervals, occasional PAC, nonspecific diffuse ST/T changes without evidence of ischemia. Vital Signs: 12:10 Pulse 56; Resp 18; Temp 97.8; Pulse Ox 98% on R/A; Weight 85.73 kg; Height 5 ft. 6 in. ph (167.64 cm); 12:15 BP 148 / 97; Pulse 67; Resp 18; Pulse Ox 100% on R/A; ph 13:04 BP 145 / 98; Pulse 72; Resp 18; Pulse Ox 98% on R/A; ph 18:31 BP 120 / 74; Pulse 63; Resp 18; Pulse Ox 100% on R/A; iw 19:30 BP 130 / 80; Pulse 56; Resp 15; Temp 97.8; Pulse Ox 100% on R/A; Pain 7/10; pf1 12:10 Body Mass Index 30.51 (85.73 kg, 167.64 cm) ph NIH Stroke Scale Scores: 11:51 NIHSS Score: 3 ph MDM: 11:53 Patient medically screened. sp3 12:21 Data reviewed: vital signs, nurses notes, EMS record, lab test result(s), EKG, sp3 radiologic studies. ED course: 62-year-old male with substance abuse and complex medical history now here for altered mental status. Differential diagnosis is broad and includes substance abuse, metabolic derangement, CVA, ICH, ACS, TIA, vascular pathology, sepsis, among others patient was taken to head CT stat which demonstrated normal scan. Upon return patient's IV was started and further work-up initiated. Blood sugar remains at 79 and was 87 for EMS. Narcan 2 mg will be given. Patient is maintaining his airway and no further intervention is indicated at this time. We will await remainder of his work-up which includes chest x-ray, EKG, laboratory values and general observation and supportive care. Patient will be admitted once patient is stabilized and deemed safe for admission.. 10/08 11:53 Order name: Basic Metabolic Panel; Complete Time: 13:05 sp3 10/08 11:53 Order name: CBC with Diff; Complete Time: 13:05 sp3 10/08 11:53 Order name: Hepatic Function; Complete Time: 13:05 sp3 10/08 11:53 Order name: High Sensitivity Troponin; Complete Time: 13: sp3 10/08 11:53 Order name: Magnesium; Complete Time: 13:05 sp3 10/08 11:53 Order name: Protime (+inr); Complete Time: 13:05 sp3 10/08 11:53 Order name: Ptt, Activated; Complete Time: 13:05 sp3 10/08 11:53 Order name: UDS sp3 10/08 12:23 Order name: Glucose, Ancillary Testing; Complete Time: 13:05 EDMS 10/08 12:39 Order name: Urine Dipstick-Ancillary; Complete Time: 13:05 EDMS 10/08 13:08 Order name: ABG: VBG!!! sp3 10/08 14:57 Order name: SARS-COV-2 Antigen Rapid bd 10/08 15:02 Order name: Creatine Phosphokinase EDNV 10/08 15:02 Order name: Magnesium EDNV 10/08 11:53 Order name: CT Stroke Brain w/o Contrast sp3 10/08 11:53 Order name: Stroke CXR 1 View; Complete Time: 13:05 3 10/08 11:53 Order name: EKG; Complete Time: 11:54 3 10/08 11:53 Order name: Accucheck; Complete Time: 12:11 sp3 10/08 11:53 Order name: Cardiac monitoring; Complete Time: 12:17 3 10/08 11:53 Order name: EKG - Nurse/Tech; Complete Time: 12:50 sp3 10/08 11:53 Order name: IV Saline Lock; Complete Time: 12:11 sp3 10/08 11:57 Order name: Ct Stroke Brain Wo Cont; Complete Time: 13:05 EDMS 10/08 15:02 Order name: Heart Healthy EDMS 10/08 15:02 Order name: Phosphorus EDMS 10/08 15:02 Order name: Urinalysis EDMS 10/08 15:02 Order name: Basic Metabolic Panel EDMS 10/08 15:02 Order name: Basic Metabolic Panel EDMS 10/08 15:02 Order name: CBC with Automated Diff EDMS 10/08 15:02 Order name: CBC with Automated Diff EDMS 10/08 11:53 Order name: Labs collected and sent; Complete Time: 12:17 sp3 10/08 11:53 Order name: NPO; Complete Time: 12:17 3 10/08 11:53 Order name: O2 Per Protocol; Complete Time: 12:11 sp3 10/08 11:53 Order name: O2 Sat Monitoring; Complete Time: 12:11 sp3 10/08 11:53 Order name: Stroke Swallow Screen; Complete Time: 19:06 sp3 Administered Medications: 12:26 Drug: NARcan (naloxone) 2 mg Route: IVP; Site: right antecubital; ph 15:12 Follow up: Response: No adverse reaction ph Disposition Summary: 10/08/22 13:46 Hospitalization Ordered Hospitalization Status: Observation sp3 Provider: Augustus Esparza sp3 Condition: Stable sp3 Problem: an acute exacerbation sp3 Symptoms: have worsened sp3 Bed/Room Type: Standard sp3 Location: [facility] ER HOLD(10/08/22 17:52) [facility] Room Assignment: ERHOLD-(10/08/22 17:52) [facility] Diagnosis - Altered mental status, cocaine abuse sp3 Forms: - Medication Reconciliation Form sp3 - SBAR form sp3 NIH Stroke Scale - NIH Stroke Score Date: 10/08/2022 Time: 11:51 Total Score = 3 1a. Level of Consciousness (LOC) - 1(Not Alert) 1b. Level of Consciousness (LOC) (Month \\T\\ Age) - 0(Both) 1c. LOC Commands (Open \\T\\ Closes Eyes/Window/Distribution Clerk) - 0(Both) 2. Best Gaze (Lateral Gaze Paresis) - 0(Normal) 3. Visual Field Loss - 0(No visual loss) 4. Facial Palsy - 0(Normal) 5a. Left Arm: Motor (10-second hold) - 0(No drift) 5b. Right Arm: Motor (10-second hold) - 0(No drift) 6a. Left Leg: Motor (5-second hold - always test supine) - 0(No drift) 6b. Right Leg: Motor (5-second hold - always test supine) - 0(No drift) 7. Limb Ataxia (finger/nose \\T\\ heel/jolley - test with eyes open) - 0(Absent) 8. Sensory Loss (pinprick arms/legs/face) - 0(Normal) 9. Best Language: Aphasia (description/naming/reading) - 1(Mild to moderate aphasia) 10. Dysarthria (speech clarity - read or repeat words) - 1(Mild to Moderate) 11. Extinction and Inattention (visual/tactile/auditory/spatial/personal) - 0(No abnormality) Initials: ph Signatures: Dispatcher [employer] Lydia Babb RN RN Latrell Moya RN RN ja1 Hiral Ross MD MD sp3 Corrections: (The following items were deleted from the chart) 17: 13:46 Telemetry/MedSurg (observation) sp3 ja1 17 13:46 sp3 ja1
[2022-10-08 14:21] LABS: Barbiturates NEGATIVE (NEGATIVE); Benzodiazepines NEGATIVE (NEGATIVE); Cocaine POSITIVE (NEGATIVE); METHAMPHETAM NEGATIVE (NEGATIVE); Methadone NEGATIVE (NEGATIVE); Opiates NEGATIVE (NEGATIVE); Phencyclidine NEGATIVE (NEGATIVE); THC Cannibis NEGATIVE (NEGATIVE)
[2022-10-08] MEDS ORDERED: ACETAMINOPHEN 325 MG TABLET PO PRN (14:54)
[2022-10-08] MEDS ORDERED: ONDANSETRON 4 MG/2 ML VIAL IV PRN (14:58)
--- NOTE | 2022-10-08 15:16 | P.HP ---
Certification for Inpatient Patient admitted to: Observation With expected LOS: <2 Midnights Patient will require the following post-hospital care: None Practitioner: I am a practitioner with admitting privileges, knowledge of patient current condition, hospital course, and medical plan of care. Services: Services provided to patient in accordance with Admission requirements found in Title 42 Section 412.3 of the Code of Federal Regulations Patient History Date of Service: 10/08/22 Reason for admission: AMS History of Present Illness: Patient is a 62-year-old male with a past medical history significant for substance abuse, hypertension, VT, hyperlipidemia, nicotine dependence who presented with complaint of altered mental status. Patient is alert and oriented x2 but confused at time of assessment. Patient reported cocaine use yesterday. Patient's speech is jumbled but nursing staff reports improvement since presentation to the ER. Patient reported associated signs and symptoms of nausea and dizziness. Patient denies any other signs or symptoms. Symptoms are aggravated or relieved by nothing. Patient was brought to the hospital by EMS after EMS was called by a neighbor. Allergies Benzodiazepines Allergy (Severe, Verified 09/28/22 22:35) Anaphylaxis diazepam [From Valium] Allergy (Severe, Verified 09/28/22 22:35) Anaphylaxis ketorolac tromethamine [From Toradol] Allergy (Severe, Verified 09/28/22 22:35) Anaphylaxis Penicillins Allergy (Severe, Verified 09/28/22 22:35) Anaphylaxis venom-honey bee [bee venom (honey bee)] Allergy (Severe, Verified 09/28/22 22:35) Anaphylaxis venom-wasp [Wasp Venom] Allergy (Severe, Verified 09/28/22 22:35) Anaphylaxis alprazolam [From Xanax] Allergy (Verified 09/28/22 22:35) Hives amphetamine aspartate [From Adderall] Allergy (Verified 09/28/22 22:35) Hives amphetamine sulfate [From Adderall] Allergy (Verified 09/28/22 22:35) Hives dextroamphetamine saccharate [From Adderall] Allergy (Verified 09/28/22 22:35) Hives dextroamphetamine sulfate [From Adderall] Allergy (Verified 09/28/22 22:35) Hives lorazepam [From Ativan] Allergy (Verified 09/28/22 22:35) Hives/Rash trazodone Allergy (Verified 09/28/22 22:35) Hives Home Medications: Atorvastatin Calcium [Lipitor] 40 mg PO DAILY 09/29/22 Gabapentin [Neurontin] 800 mg PO TID 09/29/22 Lisinopril [Zestril] 20 mg PO DAILY 09/29/22 Metoprolol Tartrate [Lopressor*] 50 PO DAILY 10/08/22 - Past Medical/Surgical History Diabetic: No -: Hypertension -: Hyperlipidemia -: CVA -: VT -: Cocaine Abuse -: hernia repair -: appendectomy -: hemorrhoidectomy -: hernia repair Psychosocial/ Personal History: Patient lives at home with his sister. - Family History Mother -: Heart disease, Hypertension, Stroke, Cancer Father -: Heart disease, Hypertension, GI disease, Stroke, Kidney disease Sister -: Hypertension, Lung disease, Diabetes, Kidney disease Brother -: Hypertension - Social History Smoking Status: Current every day smoker Smoking therapy provided: No (Pt confused ) Patient receptive to therapy: No (Pt confused ) Alcohol use: No CD- Drugs: No Caffeine use: Yes Place of Residence: Home Review of Systems is unable to be obtained (Patient confused) Physical Examination - Physical Exam General: Alert, In no apparent distress, Oriented x2, Confused HEENT: Atraumatic, PERRLA, Mucous membr. moist/pink, EOMI, Sclerae nonicteric Neck: Supple, 2+ carotid pulse no bruit, No LAD, Without JVD or thyroid abnormality Respiratory: Clear to auscultation bilaterally, Normal air movement Cardiovascular: No edema, Regular rate/rhythm, Normal S1 S2 Capillary refill: <2 Seconds Gastrointestinal: Normal bowel sounds, Soft and benign, No tenderness Musculoskeletal: No clubbing, No swelling, No contractures, No tenderness Integumentary: No rashes, No breakdown, No significant lesion Neurological: Normal speech, Normal tone, Normal affect Lymphatics: No axilla or inguinal lymphadenopathy - Studies Laboratory Data (last 24 hrs) 10/08/22 12:10: PT 9.9, INR 0.90, APTT 33.8 10/08/22 12:10: WBC 8.40, Hgb 14.8, Hct 43.8, Plt Count 284 10/08/22 12:10: Sodium 137, Potassium 4.6, BUN 22 H, Creatinine 1.35 H, Glucose 90, Magnesium 2.4, Total Bilirubin 0.3, AST 27, ALT 35, Alkaline Phosphatase 162 H Assessment and Plan - Plan --Acute encephalopathy. CT head unremarkable for any intracranial abnormality. Continue supportive care. --Cocaine use. Patient will be counseled on drug cessation when fully alert. --Hypertension. Poorly controlled. Continue home medications and hydralazine as needed. --History of VT\CVA. Continue aspirin and statin. --Hyperlipidemia. Continue statin. --Nicotine dependence. Patient will be counseled on tobacco cessation when fully alert. Patient placed on nicotine patch. --[place] on CKD 2. Slight depreciation in renal functions compared to levels 1 week ago. Continue IV hydration. We will continue to monitor renal functions. --DVT prophylaxis with Lovenox subQ. Discharge Plan: Home Plan to discharge in: 48 Hours - Advance Directives Does patient have a Living Will: No Does patient have a Durable POA for Healthcare: No - Code Status/Comfort Care Code Status Assessed: Yes Physician Review: Patient Assessed, Agree with Above Assessment and Plan Critical Care: No
[2022-10-08] MEDS ORDERED: GABAPENTIN 300 MG CAP PO SCH (16:00)
[2022-10-08] MEDS ORDERED: HYDRALAZINE HCL 20 MG/ML VIAL IV PRN (16:19)
[2022-10-08 16:48] LABS: SARS-CoV-2 Antigen Rapid Res Negative (Negative)
[2022-10-08] MEDS ORDERED: NA CHLORIDE 0.9% 1,000 ML IV SCH (17:00)
[2022-10-08 17:09] VITALS: O2SAT 98
[2022-10-08 17:29] LABS: Magnesium 2.2 mg/dL (1.6-2.4); Phosphorus 3.4 mg/dL (2.5-4.9)
[2022-10-08] MEDS ORDERED: HOME MED 1 EA UNK (Gabapentin [Neurontin] 800 MG Tablet) PO SCH (21:00)
[2022-10-08] MEDS ORDERED: NICOTINE 21 MG/PAT TD ONE (22:52)
[2022-10-08] MEDS ORDERED: NA CHLORIDE 0.9% 1,000 ML ONE (22:53)
[2022-10-08] MEDS ORDERED: ENOXAPARIN 40 MG/0.4 ML SQ ONE (22:53)
[2022-10-08] MEDS: ENOXAPARIN 40 MG/0.4 ML SQ SCH (23:00)
[2022-10-08] MEDS: NICOTINE 21 MG/PAT TD SCH (23:05)
[2022-10-09] MEDS ORDERED: GABAPENTIN 300 MG CAP PO PRN (02:31)
[2022-10-09 02:51] LABS: Absolute Lymphocytes (CBC) 2.6 K/uL (0.7-4.9); Hematocrit 36.3 % (39.6-49.0); Lymphocytes % 34.8 % (15.3-44.8); MCV 90.3 fL (80-100); MPV 7.3 fL (7.6-11.3); RBC Red Blood Cell Count 4.02 M/uL (4.33-5.43)
[2022-10-09 03:04] VITALS: BMI 30.4
[2022-10-09 03:07] LABS: Potassium 4.3 mmol/L (3.5-5.1)
[2022-10-09] MEDS ORDERED: METOPROLOL TAR 50 MG TAB ONE (08:34)
[2022-10-09] MEDS ORDERED: ATORVASTATIN 20 MG TAB ONE (08:35)
[2022-10-09] MEDS ORDERED: ASPIRIN EC 81 MG TAB PO ONE (08:35)
[2022-10-09] MEDS ORDERED: ENOXAPARIN 40 MG/0.4 ML SQ ONE (08:35)
[2022-10-09] MEDS ORDERED: NICOTINE 21 MG/PAT TD ONE (08:35)
[2022-10-09] MEDS ORDERED: ATORVASTATIN 40 MG TAB PO SCH (09:00)
[2022-10-09] MEDS: NICOTINE 21 MG/PAT TD SCH (09:00)
[2022-10-09] MEDS ORDERED: METOPROLOL TAR 50 MG TAB PO SCH (09:00)
[2022-10-09] MEDS ORDERED: ASPIRIN 81 MG CHEWABLE TABLET PO SCH (09:00)
[2022-10-09] MEDS: ENOXAPARIN 40 MG/0.4 ML SQ SCH (09:00)
[2022-10-09] MEDS ORDERED: lisinopriL 20 MG TAB PO SCH (09:00)
[2022-10-09 13:05] VITALS: BP 112/61; TEMP 97.2
--- NOTE | 2022-10-09 14:55 | EKG ---
Test Date: 2022-10-08 Test Time: 12:46:18 Steward/Stewardess Lounge: [place] MEASUREMENT RESULTS: Intervals: Rate: 54 ME: 164 QRSD: 78 QT: 408 QTc: 386 [place]: P: 75 ME: 164 QRS: 53 T: 68 INTERPRETIVE STATEMENTS: Sinus bradycardia with premature atrial complexes Otherwise normal ECG Compared to ECG 09/28/2022 14:39:34 Atrial premature complex(es) now present Sinus rhythm no longer present Myocardial infarct finding no longer present Electronically Signed On 10-09-22 14:54:29 TECH WRITER by Mino Tsai
== END 2022-10-09 14:15 | disposition home or self-care (01) ==
LOC: ER 11:49 → ERHOLD 14:52
PROVIDERS: ADMIT Hospitalist; ATTEND Hospitalist
DX: G93.40 Encephalopathy, unspecified (principal); F14.90 Cocaine use, unspecified, uncomplicated; I10 Essential (primary) hypertension; I25.2 Old myocardial infarction; E78.5 Hyperlipidemia, unspecified; F17.200 Nicotine dependence, unspecified, uncomplicated; N17.9 Acute kidney failure, unspecified; N18.30 Chronic kidney disease, stage 3 unspecified; Z88.0 Allergy status to penicillin; Z88.8 Allergy status to other drugs, medicaments and biological substances; Z20.822 Contact with and (suspected) exposure to COVID-19
CPT/HCPCS: 93005; 85025 ×2; 80048 ×2; 36415 ×2; 83735 ×2; 82550; 84100; 85610; 82947; 80076; 85730; 81003; 84484; 80307; 70450; 71045; 82805; 96374; 99291; 87811; J2310; J1650 ×2; J7030; G0378 ×3

== ENCOUNTER 2022-10-19 22:07 | Emergency (ER) | payer MEDICARE ==
--- OUTSIDE RECORDS SUMMARY | 2022-10-19 22:15 | XMS REPORT | Continuity of Care Document ---
:1960 Author Organization [facility] t Address [address] [place] [address] Care Team Providers Name Role Phone CAROLA ROSS Primary Care Physician Unavailable Carola Ross Attending Clinician Unavailable GERTRUDE CHINCHILLA Attending Clinician Unavailable Gertrude Chinchilla DO Attending Clinician Carson_B Attending Clinician Unavailable Cobb_T Attending Clinician Unavailable Ayo ALLRED, Simón Gonzalez Attending Clinician Unavailable CALLIE CUELLAR Attending Clinician Unavailable Callie Cuellar DO Attending Clinician Deshazo_T Attending Clinician Unavailable Doctor Unassigned, [place] Attending Clinician Unavailable NEELA ALBARADO Attending Clinician [...] Effective Date Expiration Date Sour ce Number [id number] 2020 MEDICARE 00:00:00 ADVANTAGE PLAN [facility] [id number] 2021 (MEDICARE 00:00:00 REPLACEMENT HMO) [address] 2021 Common Spi rit 00:00:[address] 2021 Common Spi rit 00:00:[address] 2021 Common Spi rit 00:00:[address] 2021 Common Spi rit 00:00:00 [facility] Problems Condition Condition Condition Status Onset Resolution Last Treating Co mments Source Name Details Category Date Date Treatment Clinician Date Chest Chest Disease Active Univers pain, pain, 8-25 ity of [place]specif[place] type 00 Medical Branch Other Other Disease Active Univers hyperlipid hyperlipid 8-25 it y of emia emia 00:00: [place] [facility] Drug abuse Drug abuse Disease Active U nivers 8-25 ity of 00:00: [place] 00 Medical Branch Nonobstruc Nonobstruc Disease Active U nivers tive tive 8-25 ity of atheroscle atheroscle 00:00: [place] rosis of rosis of 00 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 [place] (acute [place] (acute Disease Active 2020-09 U nivers kidney kidney 2-30 ity of injury) injury) 00:00: [place] [facility] Esophageal Esophageal Disease Active 2017-0 U nivers spasm spasm 4-30 ity of 00:00: [place] 00 Medical Branch A-fib A-fib Disease Active Univers 4-24 ity of 00:00: [place] 00 Medical Branch Atrial Atrial Disease Active Univers fibrillati fibrillati 01-19 it y of on with on with 00:00: [place] RVR RVR 00 Medical Branch Shortness Shortness Disease Active Uni vers of breath of breath 01-19 ity of 00:00: [place] [facility] NSTEMI NSTEMI Disease Active Univers (non-ST (non-ST 01-19 ity of elevated elevated 00:00: [place] myocardial myocardial 00 Me dical infarction infarction Br anch ) ) Tobacco Tobacco Disease Active Univers abuse abuse 01-19 ity of 00:00: [place] [facility] Family Family Disease Active Univers history of history of 01-19 it y of early CAD [facility] Inguinal Inguinal Disease Active 2016-09 Unive rs hernia hernia 2-04 ity of 00:00: [place] 00 Medical Branch Status Status Disease Active Univers epilepticu epilepticu 01-22 it y of s s 00:: [place] [facility] Seizure Seizure Disease Active Univers 4-26 ity of 00:00: [place] 00 Medical Branch [id number] 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, - CHI cerebral [facility] [id number] Diverticul Problem C ommon [id number] osis large Spirit intestine - CHI w/o perforatio [facility] n or Medical abscess Center w/bleeding [id number] 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 [id number] Incontinen Problem Com mon ce of Spirit feces, - CHI unspecifie [facility] fecal [facility] incontinen Medica l ce type Center [id number] Primary Problem Common insomnia [facility] [id number] TIA Problem Common (transient Spirit ischemic - CHI attack) [facility] [id number] Aphasia Problem Common Spirit - CHI [facility] [id number] Body mass Problem Com mon index Spirit [BMI] - CHI 31.0-31.9, [facility] [id number] Other Problem Common obesity Spirit due to - CHI excess [facility] [id number] Mixed Problem Common hyperlipid Spirit emia - CHI [facility] [id number] Paroxysmal Problem Co mmon atrial Spirit fibrillati - CHI on [facility] [id number] Vitamin D Problem Comm on deficiency Spirit - CHI [facility] [id number] Primary Problem Comm on osteoarthr Spirit itis of - CHI left knee [facility] [id number] Other Problem Common chronic Spirit pain - CHI [facility] [id number] Arthritis Problem Co mmon [id number] of knee, Spirit left - CHI [facility] [id number] Essential Problem Comm on hypertensi Spirit on - CHI [facility] [id number] Tobacco Problem Commo n use Spirit disorder, - CHI continuous [facility] [id number] Non-season Problem Com mon al Spirit allergic - CHI rhinitis, [facility] [id number] Primary Problem Comm on osteoarthr Spirit itis of - CHI left [facility] Primary Primary Problem Common osteoarthr osteoarthr Sp awais itis itis - CHI involving [facility] Allergies, Adverse Reactions, Alerts Allergy [...] in G throat shut Spiri t - [facility] diazepam diazepam Active Stops heart C ommon Spirit - [facility] Social History Social Habit Start Date Stop Date Quantity Comments Source History of Tobacco Current Smoker Co mmon Spirit - Use [facility] Sex Assigned At Common Sp awais - [facility] Exposure to 2022-08-20 2022-08-30 Not sure University of SARS-CoV-2 (event) 00:00:00 07:46:00 [facility] Alcohol intake 2022-08-30 2022-08-30 Current University of 00:00:00 00:00:00 non-drinker of [facility] alcohol Branch (finding) Cigarette 2021-09-27 2021-09-27 University of pack-years 00:00:00 00:00:00 [facility] Tobacco use and 2021-09-27 2021-09-27 Smokeless Universit y of exposure 00:00:00 00:00:00 tobacco non-user [facility] Education 2021-09-27 2021-09-27 8 University 00:00:00 00:00:00 [facility] Cigarettes smoked 2021-09-27 2021-09-27 Univers ity of current (pack per 00:00:00 00:00:00 ) - Reported Branch Smoking Status Start Date Stop Date Source Current Smoker 2022-10-08 00:00:00 Common Spiri t - CHI [facility] Medications Ordered Filled Start Stop Current [...] Fri08/30/22 at 0845, VANNA carvediloL 2021- No [id number] 3.125mg Take 1 Univers 3.125 mg 05-25 tablet by ity o f tablet 00:00: 04:59 mouth in [place] 00 :00 the Medical morning Branch and 1 tablet in the evening. Take with meals. Do all this for 30 days. carvediloL 2021- No [id number] 3.125mg Take 1 Univers 3.125 mg 05-25 tablet by ity o f tablet 00:00: 04:59 mouth in [place] 00 :00 the Medical morning Branch and 1 tablet in the evening. Take with meals. Do all this for 30 days. nicotine Yes 1{patch Apply 1 Univers mg/24 hr 05-24 } Patch to ity of patch 17:45: area(s) [place] 28 every 24 Medical (twenty-fo Branch ur) hours. Patient reports he smokes 13 cigarettes per day. nicotine Yes 1{patch Apply 1 Univers mg/24 hr 05-24 } Patch to ity of patch 17:45: area(s) [place] 28 every 24 Medical (twenty-fo Branch ur) hours. Patient reports he smokes 13 cigarettes per day. nicotine Yes 1{patch Apply 1 Univers mg/24 hr 05-24 } Patch to ity of patch 17:45: area(s) [place] 28 every 24 Medical (twenty-fo Branch ur) [...] First dose (after last modificati on) on [facility] 05/23/22 at 2000, Until Discontinu ed, Routine nicotine Yes 1{patch 1 Patch, Un lee (NICODERM) 05-24 } Topical, ity o f 21 mg/24 hr 00:45: Administer [place] patch 1 00 over 24 Medical Patch Hours, Branch Q24H, First dose on [facility] 05/23/22 at 1945, Until Discontinu ed, Routine hydrOXYzine 2021- No [id number] 10mg Take 1 Univers 10 mg 05-24 tablet by ity of tablet 00:00: 04:59 mouth [place] 00 :00 every 6 Medical (six) Branch hours as needed for Anxiety for up to 30 days. hydrOXYzine 2021- No [id number] 10mg Take 1 Univers 10 mg 05-24 tablet by ity of tablet 00:00: 04:59 mouth [place] 00 :00 every 6 Medical (six) Branch hours as needed for Anxiety for up to 30 days. enoxaparin 2021- No 40mg 40 mg, Univ ers (LOVENOX) 05-23 Subcutaneo ity of injection 22:00: 23:48 us, DAILY, [place] 40 mg 00 :16 First dose Medical on [facility] Branch 05/23/22 at 1700, Until Discontinu ed, Routine ondansetron Yes 4mg 4 mg, Slow Univers (ZOFRAN 05-23 IV Push, ity of (PF)) 19:56: Q6HPRN, [place] injection 4 03 Starting Medi usman mg on [facility] Branch 05/23/22 at 1456, Until Discontinu ed, Routine, Nausea and Vomiting (N/V) HYDROcodone 2021- No 1{tbl} 1 tablet, Univers -acetaminop 05-23 Oral, ity of hen (NORCO 19:55: 19:54 Q6HPRN, Lauri as 5) 5-325 mg 52 :52 Starting Medi usman tablet 1 on [facility] tablet 05/23/22 at 1455, Until 05/25/22 [...] to 7 days. Indication s: acute pain [facility] 2020-09 No 40mg Common (Triamcinol (Triamcinol 0-13 S pirit one) one) 00:00: - CHI 00 [facility] 2020-09 No 40mg Common (Triamcinol (Triamcinol 0-13 S pirit one) one) 00:00: - CHI 00 [facility] 2020-09 No 40mg Common (Triamcinol (Triamcinol 0-13 S pirit one) one) 00:00: - CHI 00 [facility] Leland 2020-09 No 40mg Common (Triamcinol (Triamcinol 0-13 S pirit one) one) 00:00: - CHI 00 [facility] 2020-09 No 40mg Common (Triamcinol (Triamcinol 0-13 S pirit one) one) 00:00: - CHI 00 [facility] L[place] Ha 2020-09 No 40mg Common (Triamcinol (Triamcinol 0-13 S pirit one) one) 00:00: - CHI 00 [facility] [place] Ha 2020-09 No 40mg Common (Triamcinol (Triamcinol 0-13 S pirit one) one) 00:00: - CHI 00 [facility] Leland 2020-09 No 40mg Common (Triamcinol (Triamcinol 0-13 S pirit one) one) 00:00: - [facility] No 40mg Common (Triamcinol (Triamcinol 0-13 S pirit one) one) 00:00: - CHI 00 [facility] Judsonalog Kenalog 1 No 40mg Common (Triamcinol (Triamcinol 0-13 S pirit one) one) 00:00: - CHI 00 [facility] Leland Kenalog 2020-1 No 40mg Common (Triamcinol (Triamcinol 0-13 S pirit one) one) 00:00: - CHI 00 [facility] [place] Kenalog 1 No 40mg Common (Triamcinol (Triamcinol 0-13 S pirit one) one) 00:00: - CHI 00 [facility] Benzonatate Benzonatate 2020-09- No 1{capsu TID Benzonatat 200 MG 200 MG 0- le} e 200 MG 00:00: 00:00 00 :00 Bupivicaine Bupivicaine 2020-0 No 2.5mg Common [place] 9-28 Spirit 00:00: - CHI 00 [facility] Kenalog Kenalog 0 No 40mg Common (Triamcinol (Triamcinol 9-28 S pirit one) one) 00:00: - CHI 00 [facility] Bupivicaine Bupivicaine 2020-0 No 2.5mg Common [place] 9-28 Spirit 00:00: - CHI 00 [facility] Kenalog Kenalog 2020-0 No 40mg Common (Triamcinol (Triamcinol 9-28 S pirit one) one) 00:00: - CHI 00 [facility] Bupivicaine Bupivicaine 2020-0 No 2.5mg Common [place] 9-28 Spirit 00:00: - CHI 00 [facility] Kenalog Kenalog 2020-0 No 40mg Common (Triamcinol (Triamcinol 9-28 S pirit one) one) 00:00: - CHI 00 [facility] Bupivicaine Bupivicaine 2020-0 No 2.5mg Common [place] 9-28 Spirit 00:00: - CHI 00 [facility] Kenalog Kenalog 2020-0 No 40mg Common (Triamcinol (Triamcinol 9-28 S pirit one) one) 00:00: - CHI 00 [facility] Bupivicaine Bupivicaine 2020-0 No 2.5mg Common [place] 9-28 Spirit 00:00: - CHI 00 [facility] Kenalog Kenalog 2020-0 No 40mg Common (Triamcinol (Triamcinol 9-28 S pirit one) one) 00:00: - CHI 00 [facility] Bupivicaine Bupivicaine 2020-0 No 2.5mg Common [place] 9-28 Spirit 00:00: - CHI 00 [facility] Kenalog Kenalog 2020-0 No 40mg Common (Triamcinol (Triamcinol 9-28 S pirit one) one) 00:00: - CHI 00 [facility] Bupivicaine Bupivicaine 2020-0 No 2.5mg Common [place] 9-28 Spirit 00:00: - CHI 00 [facility] Kenalog Kenalog 2020-0 No 40mg Common (Triamcinol (Triamcinol 9-28 S pirit one) one) 00:00: - CHI 00 [facility] Bupivicaine Bupivicaine 2020-0 No 2.5mg Common [place] 9-28 Spirit 00:00: - CHI 00 [facility] Kenalog Kenalog 2020-0 No 40mg Common (Triamcinol (Triamcinol 9-28 S pirit one) one) 00:00: - CHI 00 [facility] Bupivicaine Bupivicaine 2020-0 No 2.5mg Common [place] 9-28 Spirit 00:00: - CHI 00 [facility] Kenalog Kenalog 2020-0 No 40mg Common (Triamcinol (Triamcinol 9-28 S pirit one) one) 00:00: - CHI 00 [facility] Bupivicaine Bupivicaine 2020-0 No 2.5mg Common [place] 9-28 Spirit 00:00: - CHI 00 [facility] Kenalog Kenalog 2020-0 No 40mg Common (Triamcinol (Triamcinol 9-28 S pirit one) one) 00:00: - CHI 00 [facility] Bupivicaine Bupivicaine 2020-0 No 2.5mg Common [place] - Spirit 00:00: - CHI 00 [facility] Kenalog Kenalog 2020-0 No 40mg Common (Triamcinol (Triamcinol 9-28 S pirit one) one) 00:00: - CHI 00 [facility] Bupivicaine Bupivicaine 2020-0 No 2.5mg Common [place] 06-26 Spirit 00:00: - CHI 00 [facility] Kenalog Kenalog 2020-0 No 40mg Common (Triamcinol (Triamcinol 9-28 S pirit one) one) 00:00: - CHI 00 [facility] traMADol traMADol 2020-0 2021- No 1{table traMADol HCl 50 MG HCl 50 MG 06-26 t_as_ne HCl 50 MG 00:00: 00:00 eded} 00 :00 Bupivicaine Bupivicaine 2020-0 No 2.5mg Common [place] -24 Spirit 00:00: - CHI 00 [facility] Kenalog Kenalog 2020-0 No 40mg Common (Triamcinol (Triamcinol 8-24 S pirit one) one) 00:00: - CHI 00 [facility] Bupivicaine Bupivicaine 2020-0 No 2.5mg Common [place] 8-24 Spirit 00:00: - CHI 00 [facility] Kenalog Kenalog 2020-0 No 40mg Common (Triamcinol (Triamcinol 8-24 S pirit one) one) 00:00: - CHI 00 [facility] Bupivicaine Bupivicaine 2020-0 No 2.5mg Common [place] 8-24 Spirit 00:00: - CHI 00 [facility] Kenalog Kenalog 2020-0 No 40mg Common (Triamcinol (Triamcinol 8-24 S pirit one) one) 00:00: - CHI 00 [facility] Bupivicaine Bupivicaine 1-0 No 2.5mg Common [place] 8-24 Spirit 00:00: - CHI 00 [facility] Kenalog Kenalog 2020-0 No 40mg Common (Triamcinol (Triamcinol 8-24 S pirit one) one) 00:00: - CHI 00 [facility] Bupivicaine Bupivicaine 2020-0 No 2.5mg Common [place] 8-24 Spirit 00:00: - CHI 00 [facility] Kenalog Kenalog 2020-0 No 40mg Common (Triamcinol (Triamcinol 8-24 S pirit one) one) 00:00: - CHI 00 [facility] Bupivicaine Bupivicaine 2020-0 No 2.5mg Common [place] 8-24 Spirit 00:00: - CHI 00 [facility] Kenalog Kenalog 2020-0 No 40mg Common (Triamcinol (Triamcinol 8-24 S pirit one) one) 00:00: - CHI 00 [facility] Bupivicaine Bupivicaine 2020-0 No 2.5mg Common [place] 8-24 Spirit 00:00: - CHI 00 [facility] Kenalog Kenalog 2020-0 No 40mg Common (Triamcinol (Triamcinol 8-24 S pirit one) one) 00:00: - CHI 00 [facility] Bupivicaine Bupivicaine 2020-0 No 2.5mg Common [place] 8-24 Spirit 00:00: - CHI 00 [facility] Kenalog Kenalog 2020-0 No 40mg Common (Triamcinol (Triamcinol 8-24 S pirit one) one) 00:00: - CHI 00 [facility] Bupivicaine Bupivicaine 2020-0 No 2.5mg Common [place] 8-24 Spirit 00:00: - CHI 00 [facility] Kenalog Kenalog 2020-0 No 40mg Common (Triamcinol (Triamcinol 8-24 S pirit one) one) 00:00: - CHI 00 [facility] Bupivicaine Bupivicaine 1-0 No 2.5mg Common [place] 8-24 Spirit 00:00: - CHI 00 [facility] Kenalog Kenalog 1-0 No 40mg Common (Triamcinol (Triamcinol 8-24 S pirit one) one) 00:00: - CHI 00 [facility] Bupivicaine Bupivicaine 2020-0 No 2.5mg Common [place] 8-24 Spirit 00:00: - CHI 00 [facility] [place] Roperalog 2020-0 No 40mg Common (Triamcinol (Triamcinol 8-24 S pirit one) one) 00:00: - CHI 00 [facility] Bupivicaine Bupivicaine 2020-0 No 2.5mg Common [place] 8-24 Spirit 00:00: - CHI 00 [facility] Judsonalog Kenalog 2020-0 No 40mg Common (Triamcinol (Triamcinol 8-24 S pirit one) one) 00:00: - CHI 00 [facility] atorvastati 2018-0 Yes 80mg Take 1 [...] daily. sulindac 2021- No 200mg Take 1 Carine rs (CLINORIL) 8-15 08 tablet by ity of 200 mg 00:00: [...] Vitamin C Vitamin C No Vitamin C Atorvastati Atorvastati No Atorvastat n Calcium n Calcium in Calcium 40 MG 40 MG 40 MG Magnesium Magnesium No Magnesium Iron Iron No Iron Folic Acid Folic Acid No 1{table QD Folic Acid 1 MG 1 MG t} 1 MG Atorvastati Atorvastati No 1{table QD Atorvastat n Calcium n Calcium t} in Calcium 40 MG 40 MG 40 MG Clopidogrel Clopidogrel No 1{table QD Clopidogre Bisulfate Bisulfate t} l 75 MG 75 MG Bisulfate 75 MG Lisinopril Lisinopril No 1{table QD Lisinopril 2.5 MG 2.5 MG t} 2.5 MG Metoprolol Metoprolol No 1{table QD Metoprolol Succinate Succinate t} Succinate ER 50 MG ER 50 MG ER 50 MG traMADol traMADol No 2{table traMADol HCl 50 MG HCl 50 MG ts} HCl 50 MG Lisinopril Lisinopril No Lisinopril 2.5 MG 2.5 MG 2.5 MG Gabapentin Gabapentin No 1{capsu BID Gabapentin 300 MG 300 MG le} 300 MG Vitamin C Vitamin C No Vitamin C Aspirin 81 Aspirin 81 No 1{table QD Aspirin 81 MG MG t} MG EpiPen EpiPen No EpiPen Vitamin D3 Vitamin D3 No 1{table QD Vitamin D3 125 MCG 125 MCG t} 125 MCG (5000 UT) (5000 UT) (5000 UT) Atorvastati Atorvastati No Atorvastat n Calcium n Calcium in Calcium 40 MG 40 MG 40 MG Magnesium Magnesium No Magnesium Iron Iron No Iron Folic Acid Folic Acid No 1{table QD Folic Acid 1 MG 1 MG t} 1 MG Atorvastati Atorvastati No 1{table QD Atorvastat n Calcium n Calcium t} in Calcium 40 MG 40 MG 40 MG Clopidogrel Clopidogrel No 1{table QD Clopidogre Bisulfate Bisulfate t} l 75 MG 75 MG Bisulfate 75 MG Lisinopril Lisinopril No 1{table QD Lisinopril 2.5 MG 2.5 MG t} 2.5 MG Metoprolol Metoprolol No 1{table QD Metoprolol Succinate Succinate t} Succinate ER 50 MG ER 50 MG ER 50 MG traMADol traMADol No 2{table traMADol HCl 50 MG HCl 50 MG ts} HCl 50 MG Lisinopril Lisinopril No Lisinopril 2.5 MG 2.5 MG 2.5 MG Gabapentin Gabapentin No 1{capsu BID Gabapentin 300 MG 300 MG le} 300 MG Vitamin C Vitamin C No Vitamin C Aspirin 81 Aspirin 81 No 1{table QD Aspirin 81 MG MG t} MG EpiPen EpiPen No EpiPen Vitamin D3 Vitamin D3 No 1{table QD [...] Immunizations Ordered Filled Immunization Date Status Comments Sourc e Immunization Name Name [place] 2021-07-11 Completed [facility] - (Triamcinolone) (Triamcinolone) 09:32:00 [facility] [place] Ha 2021-06-26 Completed [facility] - (Triamcinolone) (Triamcinolone) 09:38:00 [facility] Bupivicaine [place] Bupivicaine [place] 2021-06-26 Completed [facility] - 09:38:00 [facility] [place] Ha 2021-06-26 Completed [facility] - (Triamcinolone) (Triamcinolone) 09:38:00 [facility] Bupivicaine [place] Bupivicaine [place] 2021-06-26 Completed Common [facility] - 09:38:00 [facility] [place] Ha 2021-06-26 Completed [facility] - (Triamcinolone) (Triamcinolone) 09:38:00 [facility] Bupivicaine [place] Bupivicaine [place] 2021-06-26 Completed Common [facility] - 09:38:00 [facility] [place] Ha 2021-06-26 Completed [facility] - (Triamcinolone) (Triamcinolone) 09:38:00 [facility] Bupivicaine [place] Bupivicaine [place] 2021-06-26 Completed [facility] - 09:38:00 [facility] Bupivicaine [place] Bupivicaine [place] 2021-05-22 Completed [facility] - 08:55:00 [facility] [place] Ha 2021-05-22 Completed [facility] - (Triamcinolone) (Triamcinolone) 08:55:00 [facility] Bupivicaine [place] Bupivicaine [place] 2021-05-22 Completed [facility] - 08:55:00 [facility] [place] Ha 2021-05-22 Completed [facility] - (Triamcinolone) (Triamcinolone) 08:55:00 [facility] Bupivicaine [place] Bupivicaine [place] 2021-05-22 Completed [facility] - 08:55:00 [facility] Kenalog Kenalog 2021-05-22 Completed [facility] - (Triamcinolone) (Triamcinolone) 08:55:00 [facility] Bupivicaine [place] Bupivicaine [place] 2021-05-22 Completed [facility] - 08:55:00 [facility] Kenalog Kenalog 2021-05-22 Completed [facility] - (Triamcinolone) (Triamcinolone) 08:55:00 [facility] Pneumococcal 2018-01-26 Completed University o f Polysaccharide, [...] 2015-01-11 Completed Common S pirit - 14:09:00 [facility] Adacel (Tdap) Adacel (Tdap) 2015-01-11 Completed Common S pirit - 14:09:00 [facility] Adacel (Tdap) Adacel (Tdap) 2015-01-11 Completed Common S pirit - 14:09:00 [facility] Adacel (Tdap) Adacel (Tdap) 2015-01-11 Completed Common S pirit - 14:09:00 [facility] Adacel (Tdap) Adacel (Tdap) 2015-01-11 Completed Common S pirit - 14:09:00 [facility] Adacel (Tdap) Adacel (Tdap) 2015-01-11 Completed Common S pirit - 14:09:00 [facility] Adacel (Tdap) Adacel (Tdap) 2015-01-11 Completed Common S pirit - 14:09:00 [facility] Adacel (Tdap) Adacel (Tdap) 2015-01-11 Completed Common S pirit - 14:09:00 [facility] Adacel (Tdap) Adacel (Tdap) 2015-01-11 Completed Common S pirit - 14:09:00 [facility] Adacel (Tdap) Adacel (Tdap) 2015-01-11 Completed Common S pirit - 14:09:00 [facility] Adacel (Tdap) Adacel (Tdap) 2015-01-11 Completed Common S pirit - 14:09:00 [facility] Adacel (Tdap) Adacel (Tdap) 2015-01-11 Completed Common S pirit - 14:09:00 [facility] Adacel (Tdap) Adacel (Tdap) 2015-01-11 Completed Common S pirit - 14:09:00 [facility] Adacel (Tdap) Adacel (Tdap) 2015-01-11 Completed Common S pirit - 14:09:00 [facility] Adacel (Tdap) Adacel (Tdap) 2015-01-11 Completed Common S pirit - 14:09:00 [facility] Adacel (Tdap) Adacel (Tdap) 2015-01-11 Completed Common S pirit - 14:09:00 [facility] Adacel (Tdap) Adacel (Tdap) 2015-01-11 Completed Common S pirit - 14:09:00 [facility] Adacel (Tdap) Adacel (Tdap) 2015-01-11 Completed Common S pirit - 14:09:00 [facility] Adacel (Tdap) Adacel (Tdap) 2015-01-11 Completed Common S pirit - 14:09:00 [facility] Adacel (Tdap) Adacel (Tdap) 2015-01-11 Completed Common S pirit - 14:09:00 [facility] Adacel (Tdap) Adacel (Tdap) 2015-01-11 Completed Common S pirit - 14:09:00 [facility] Adacel (Tdap) Adacel (Tdap) 2015-01-11 Completed Common S pirit - 14:09:00 [facility] Vital Signs Vital Name Observation Time Observation Value Comments Source Systolic blood 2022-08-30 20:50:00 92 mm[Hg] Univer sity of pressure [facility] Diastolic blood 2022-08-30 20:50:00 64 mm[Hg] Unive rsity of [facility] Heart rate 2022-08-30 20:50:00 53 /min [facility] Respiratory rate 2022-08-30 20:50:00 20 /min [facility] Oxygen saturation in 2022-08-30 20:50:00 94 /min [facility] blood by [facility] Pulse oximetry Branch Body temperature 2022-08-30 13:47:00 35.67 Shameka [facility] height 2022-08-30 13:47:[address] [facility] Body weight 2022-08-30 13:47:[address] [facility] BMI 2022-08-30 13:47:00 30.27 kg/m2 [facility] height 2022-07-31 14:40:00 66 [in_i] [facility] weight 2022-07-31 14:40:00 201.0 [lb_av] Common [facility] temperature 2022-07-31 14:40:00 98.2 [degF] [facility] bmi 2022-07-31 14:40:00 32.44 kg/m2 [facility] oximetry 2022-07-31 14:40:00 97 % [facility] respiratory rate 2022-07-31 14:40:00 17 /min Comm on [facility] blood pressure 2022-07-31 14:40:00 135 mm[Hg] Common [facility] - systolic [facility] blood pressure 2022-07-31 14:40:00 72 mm[Hg] Common [facility] - diastolic [facility] Systolic blood 2022-05-24 20:23:00 112 mm[Hg] Univer sity of [facility] Diastolic blood 2022-05-24 20:23:00 65 mm[Hg] Unive rsity of [facility] Heart rate 2022-05-24 20:23:00 68 /min Universi ty [facility] Body temperature 2022-05-24 20:23:00 35.83 Shameka [facility] Respiratory rate 2022-05-24 20:23:00 18 /min Univ [facility] Oxygen saturation in 2022-05-24 20:23:00 96 /min [facility] blood by [facility] Pulse oximetry Branch Body height 2022-05-23 19:38:[address] [facility] Body weight 2022-05-23 19:38:[address] [facility] BMI 2022-05-23 19:38:00 30.27 kg/m2 [facility] height 2022-04-18 10:00:00 66 [in_i] [facility] weight 2022-04-18 10:00:00 209.0 [lb_av] [facility] temperature 2022-04-18 10:00:00 98.1 [degF] [facility] bmi 2022-04-18 10:00:00 33.73 kg/m2 [facility] oximetry 2022-04-18 10:00:00 95 % [facility] respiratory rate 2022-04-18 10:00:00 16 /min Comm on [facility] blood pressure 2022-04-18 10:00:00 132 mm[Hg] Common [facility] - systolic [facility] blood pressure 2022-04-18 10:00:00 73 mm[Hg] Common [facility] - diastolic [facility] height 2022-04-04 11:10:00 66 [in_i] [facility] weight 2022-04-04 11:10:00 197 [lb_av] [facility] temperature 2022-04-04 11:10:00 98 [degF] Common S pirit - [facility] bmi 2022-04-04 11:10:00 31.79 kg/m2 Common S pirit - [facility] blood pressure 2022-04-04 11:10:00 125 mm[Hg] [facility] - systolic [facility] blood pressure 2022-04-04 11:10:00 65 mm[Hg] [facility] - diastolic [facility] height 2022-02-14 08:20:00 66 [in_i] Common S pirit - [facility] weight 2022-02-14 08:20:00 197.3 [lb_av] [facility] temperature 2022-02-14 08:20:00 97.3 [degF] Common S pirit [facility] bmi 2022-02-14 08:20:00 31.84 [facility] o[facility]etry 2022-02-14 08:20:00 96 % [facility] respiratory rate 2022-02-14 08:20:00 16 /min Comm on [facility] blood pressure 2022-02-14 08:20:00 114 mm[Hg] Common [facility] - systolic [facility] blood pressure 2022-02-14 08:20:00 62 mm[Hg] Common [facility] - diastolic [facility] height 2022-01-17 08:10:00 66 [in_i] Common S pirit - [facility] weight 2022-01-17 08:10:00 195.6 [lb_av] Common [facility] temperature 2022-01-17 08:10:00 98.3 [degF] Common S pirit [facility] bmi 2022-01-17 08:10:00 31.57 kg/m2 [facility] o[facility]etry 2022-01-17 08:10:00 98 % Common S pirit [facility] respiratory rate 2022-01-17 08:10:00 17 /min Comm on [facility] blood pressure 2022-01-17 08:10:00 133 mm[Hg] Common [facility] - systolic [facility] blood pressure 2022-01-17 08:10:00 72 mm[Hg] Common [facility] - diastolic [facility] height 2021-10-16 08:20:00 66 [in_i] Common [facility] weight 2021-10-16 08:20:00 194.9 [lb_av] Common [facility] temperature 2021-10-16 08:20:00 98.2 [degF] Common [facility] bmi 2021-10-16 08:20:00 31.45 kg/m2 [facility] oximetry 2021-10-16 08:20:00 97 % [facility] respiratory rate 2021-10-16 08:20:00 17 /min Comm on [facility] height 2021-10-16 08:20:00 66 [in_i] Common [facility] weight 2021-10-16 08:20:00 194.9 [lb_av] [facility] temperature 2021-10-16 08:20:00 98.2 [degF] Common [facility] bmi 2021-10-16 08:20:00 31.45 kg/m2 [facility] oximetry 2021-10-16 08:20:00 97 % [facility] respiratory rate 2021-10-16 08:20:00 17 /min Comm on [facility] blood pressure 2021-10-16 08:20:00 132 mm[Hg] Common [facility] - systolic [facility] blood pressure 2021-10-16 08:20:00 77 mm[Hg] Common [facility] - diastolic [facility] height 2021-10-08 13:10:00 66 [in_i] Common [facility] weight 2021-10-08 13:10:00 195.3 [lb_av] Common [facility] temperature 2021-10-08 13:10:00 98.1 [degF] [facility] bmi 2021-10-08 13:10:00 31.52 kg/m2 [facility] oximetry 2021-10-08 13:10:00 97 % [facility] respiratory rate 2021-10-08 13:10:00 17 /min Comm on [facility] blood pressure 2021-10-08 13:10:00 132 mm[Hg] Common [facility] - systolic [facility] blood pressure 2021-10-08 13:10:00 73 mm[Hg] [facility] [place] [facility] Procedures Procedure Date / Time Performing Clinician Source Performed BASIC METABOLIC PANEL 2022-08-30 17:22:00 Gertrude Chinchilla [facility] (NA, K, CL, CO2, GLUCOSE, Medica l Branch BUN, CREATININE, CA) URINALYSIS 2022-08-30 14:21:00 Gertrude Chinchilla [facility] URINE DRUG (IMMUNOASSAY) 2022-08-30 14:21:00 Gertrude Chinchilla [facility] DRUG [facility] nch SCREEN W/O REFLEX XR CHEST 1 VW 2022-08-30 14:04:16 Gertrude Chinchilla [facility] MAGNESIUM 2022-08-30 14:03:00 Gertrude Chinhcilla [facility] TROPONIN I 2022-08-30 14:03:00 Gertrude Chinchilla [facility] COMP. METABOLIC PANEL 2022-08-30 14:03:00 Gertrude Chinchilla [facility] ([id number]) Medical Branch ETHANOL 2022-08-30 14:03:00 Gertrude Chinchilla [facility] CBC WITH DIFF 2022-08-30 14:03:00 Gertrude Chinchilla [facility] XR CHEST 1 VW 2022-05-24 11:38:14 Huang [facility] MAGNESIUM 2022-05-24 08:56:00 Huang [facility] TROPONIN I 2022-05-24 08:56:00 Callie Cuellar [facility] BASIC METABOLIC PANEL 2022-05-24 08:56:00 Callie Cuellar [facility] (NA, K, CL, CO2, GLUCOSE, Medica l Branch BUN, CREATININE, CA) CBC WITH DIFF 2022-05-24 08:56:00 Callie Cuellar [facility] TROPONIN I 2022-05-24 03:51:00 Callie Cuellar [facility] XR KUB 2022-05-23 22:25:58 Callie Cuellar [facility] URINALYSIS 2022-05-23 22:15:00 Gertrude Chinchilla [facility] CREATININE, URINE RANDOM 2022-05-23 22:15:00 Callie Cuellar [facility] SODIUM, URINE RANDOM 2022-05-23 22:15:[address] [facility] URINE DRUG (IMMUNOASSAY) 2022-05-23 22:15:00 Gertrude Chinchilla [facility] - COMPREHENSIVE DRUG Medical [facility] nch SCREEN W/O REFLEX TRANSTHORACIC ECHO (TTE) 2022-05-23 20:33:00 Callie Cuellar [facility] COVID-19 (ID NOW RAPID 2022-05-23 16:39:00 Gertrude Chinchilla [facility] TESTING) Medical Branch LAB ONLY COVID 2022-05-23 16:39:00 Gertrude Chinchilla [facility] INTERPRETATION Medical Branch TROPONIN I 2022-05-23 13:42:00 Gertrude Chinchilla [facility] COMP. METABOLIC PANEL 2022-05-23 13:42:00 Gertrude Chinchilla [facility] ([id number]) Medical Branch CBC WITH DIFF 2022-05-23 13:42:00 Gertrude Chinchilla [facility] HB ECG ROUTINE & RHYTHM 2022-05-23 13:12:28 [facility] E[facility]-12 LEAD 2022-05-23 12:44:00 Gertrude Chinchilla [facility] AUTHORIZATION FOR RELEASE 2021-11-12 06:01:00 Doctor Unassigned, [facility] [place] Medical Branch Encounters Start End Encounter Admission Attending Care Care Encounter Source Date/Time Date/Time Type Type Clinicians Facility Department ID 2022-10-07 Outpatient Ross, STLMLC STLMLC [id number] Common 09:37:[address] [facility] 2022-10-04 Outpatient Ross, STLMLC STLMLC [id number] Common 16:32:[address] [facility] 2022-08-16 Outpatient Ross, STLMLC STLMLC [id number] Common 15:23:[address] [facility] 2022-07-31 Outpatient Ross, STLMLC STLMLC [id number] Common 14:32:[address] [facility] 2022-07-29 Outpatient Ross, STLMLC STLMLC [id number] Common 16:01:[address] [facility] 2022-07-19 Outpatient Ross, STLMLC STLMLC [id number] Common 16:30:[address] [facility] 2022-07-16 Outpatient Ross, STLMLC STLMLC [id number] Common 10:11:[address] [facility] 2022-06-25 Outpatient Ross, STLMLC STLMLC [id number] Common 14:39:[address] [facility] 2022-05-16 Outpatient Ross, STLMLC STLMLC [id number] Common 12:11:[address] [facility] 2021-10-24 Outpatient Ross, STLMLC STLMLC [id number] Common 13:24:[address] [facility] 2021-10-24 Outpatient Ross, STLMLC STLMLC [id number] Common 13:06:[address] [facility] 2021-10-24 Outpatient Ross, STLMLC STLMLC [id number] Common 12:40:[address] [facility] 2021-10-24 Outpatient Ross, STLMLC STLMLC [id number] Common 12:30:[address] [facility] 2021-10-24 Outpatient Ross, STLMLC STLMLC [id number] Common 12:29:[address] [facility] 2021-10-24 Outpatient Ross, STLMLC STLMLC [id number] Common 11:52:[address] [facility] 2021-10-24 Outpatient Ross, STLMLC STLMLC [id number] Common 11:44:[address] [facility] 2021-10-24 Outpatient Ross, STLMLC STLMLC [id number] Common 11:37:[address] [facility] 2021-07-28 Emergency [facility] [id number] Univers 05:50:12 [facility] 2022-10-16 2022-10-16 (TEL) STLMLC STLMLC [id number] Co mmon 00:00:00 00:00:00 [facility] 2022-10-03 2022-10-03 Outpatient [facility] [id number] Tim 15:56:50 15:56:50 0105 F Fausto 2022-10-03 2022-10-03 (TEL) STLMLC STLMLC [id number] Co mmon 00:00:00 00:00:00 [facility] 2022-09-04 2022-09-04 Outpatient [facility] [id number] Tim 08:12:48 08:12:48 1207 F Fausto 2022-09-03 2022-09-03 Outpatient [facility] [id number] Tim 14:40:55 14:40:55 1206 F Fausto 2022-08-30 2022-08-30 Emergency [facility] [id number] Univers 07:45:00 15:39:00 GERTRUDE [facility] 2022-08-30 2022-08-30 Emergency [facility] [id number] Univers 07:45:00 15:39:00 Gertrude LUJAN [id number] [facility] [id number] [facility] [phone] [facility] 084 Branch 2022-08-12 2022-08-12 Outpatient [place] [facility] 512 Devoted 00:00:00 00:00:00 _B 1114 Medica l Group 2022-07-31 2022-07-31 OFFICE STLMLC STLC [id number] Co mmon 00:00:00 00:00:00 VISIT Spirit ESTAB PT - CHI LEVEL 4 [facility] 2022-06-21 2022-06-21 Outpatient Cobb_T [facility] [id number] Devoted 00:00:00 00:00:00 0923 Medica l Group 2022-06-20 2022-06-20 Outpatient Cobb_T [facility] [id number] Devoted 00:00:00 00:00:00 0922 Medica l Group 2022-06-06 2022-06-06 (TEL) STLMLC STLC [id number] Co mmon 00:00:00 00:00:00 Spirit - CHI [facility] 2022-05-27 2022-05-27 Transition SIOBHAN Rollins [id number] Univers 00:00:00 00:00:00 of Care Simón JULIENY [id number] ity of [place] [id number] [facility] [phone] [facility] 403 Branch 2022-05-23 2022-05-24 Outpatient Kt CUELLAR [facility] [id number] Univers 07:39:00 17:43:00 CALLIE tony of [facility] 2022-05-23 2022-05-24 Emergency Gertrude Chinchilla [facility] 1.2.8 40.114 [id number] Univers 07:39:00 17:43:00 Callie Cuellar [id number] ity of [facility] [id number] [facility] [phone] [facility] 081 Branch 2022-05-09 2022-05-09 Outpatient Cobb_T [facility] [id number] Devoted 00:00:00 00:00:00 0811 Medica l Group 2022-04-18 2022-04-18 OFFICE STLMLC STLMLC [id number] Co mmon 00:00:00 00:00:00 VISIT Spirit ESTAB PT - CHI LEVEL 4 [facility] 2022-04-18 2022-04-18 (TEL) STLMLC STLMLC [id number] Co mmon 00:00:00 00:00:00 [facility] 2022-04-12 2022-04-12 Outpatient Deshazo[facility]T [facility] [id number] Devoted 03:30:00 03:30:00 0715 Medica l Group 2022-04-10 2022-04-10 Outpatient Deshazo_T [facility] [id number] Devoted 04:58:00 04:58:00 0713 Medica l Group 2022-04-04 2022-04-04 (TEL) STLMLC STLMLC [id number] Co mmon 00:00:00 00:00:00 [facility] 2022-04-04 2022-04-04 (EST. STLMLC STLMLC [id number] Co mmon 00:00:00 00:00:00 VIDEO) EST Spi rit VIRTUAL - CHI VIDEO [place] [facility] 2022-03-26 2022-03-26 (TEL) STLMLC STLMLC [id number] Co mmon 00:00:00 00:00:00 [facility] 2022-02-14 2022-02-14 OFFICE STLMLC STLMLC [id number] Co mmon 00:00:00 00:00:00 VISIT Spirit ESTAB PT - CHI LEVEL 5 [facility] 2022-01-22 2022-01-22 (TEL) STLMLC STLMLC [id number] Co mmon 00:00:00 00:00:00 [facility] 2022-01-17 2022-01-17 OFFICE STLMLC STLMLC [id number] Co mmon 00:00:00 00:00:00 VISIT Spirit ESTAB PT - CHI LEVEL 4 [facility] 2021-11-12 2021-11-12 Kasandra LOYOLA 1.2.840.114 [id number] Univers 00:00:00 00:00:00 Only Unassigned, SHAI [id number] ity of [place] [facility] [id number] Lauri as [phone] [facility] 009 Branch 2021-10-16 2021-10-16 SUB ANNUAL STLC STLC [id number] Common 00:00:00 00:00:00 MCR Spirit WELLNESS - CHI VISIT [facility] 2021-10-16 2021-10-16 OFFICE STLMLC STLC [id number] Co mmon 00:00:00 00:00:00 VISIT Spirit ESTAB PT - CHI LEVEL 4 [facility] 2021-10-09 2021-10-09 Outpatient NEELA FANG [facility] [id number] Univers 14:20:00 14:20:00 NEELA ALBARADO ity of [facility] 2021-10-09 2021-10-09 (TEL) [facility] STLC [id number] Co mmon 00:00:00 00:00:00 [facility] 2021-10-08 2021-10-08 (HOSP F/U) [facility] STLC [id number] Common 00:00:00 00:00:00 Hospital [facility] Follow Up - [facility] 2021-10-05 2021-10-05 (TEL) [facility] STLC [id number] Co mmon 00:00:00 00:00:00 [facility] - [facility] 2021-10-02 2021-10-02 Transition SIOBHAN Rollins 1.2.840.114 [id number] Univers 00:00:00 00:00:00 of Care Simón A BRIT [id number] [id number] [phone] [facility] 403 Branch 2021-10-01 2021-10-01 (TEL) STLC STLC [id number] Co mmon 00:00:00 00:00:00 Spirit - CHI [facility] 2021-09-27 2021-09-30 Outpatient Kt GRIMALDO [facility] [id number] Univers 17:38:00 15:22:00 VIKASH tony [facility] 2021-09-27 2021-09-30 Outpatient X GELY [facility] [id number] Univers 17:38:00 15:22:00 VIKASH tony [facility] 2021-09-27 2021-09-30 Emergency Silva Szymanski [facility] 1.2.840 .114 [id number] Univers 17:38:00 15:22:00 Vikash Grimaldo [place] [id number] [facility] [id number] [facility] [phone] [place] [id number] Branch 2021-09-19 2021-09-19 Outpatient OWENS_T DM[facility] [id number] Devoted 01:00:00 01:00:00 1222 Medica l Group 2021-09-05 2021-09-05 CAV Tomora 2.16.840. 2.16.840.1. CLAC [id number] Devoted 14:30:00 15:30:00 Ruiz [id number]. [facility] [id number] 2021-08-10 2021-08-10 [place] [id number] Devoted 10:31:00 10:31:00 1112 Medica l Group 2021-08-07 2021-08-07 Outpatient CURRY_S [facility] DMG [id number] Devoted 02:14:00 02:14:00 1109 Medica l Group 2021-07-17 2021-07-17 (TEL) STLMLC STLMLC [id number] Co mmon 00:00:00 00:00:00 [facility] 2021-07-10 2021-07-10 (TEL) STLMLC STLMLC [id number] Co mmon 00:00:00 00:00:00 [facility] 2021-07-04 2021-07-04 (TEL) STLMLC STLMLC [id number] Co mmon 00:00:00 00:00:00 [facility] 2021-06-26 2021-06-26 (TEL) STLMLC STLMLC [id number] Co mmon 00:00:00 00:00:00 [facility] 2021-05-29 2021-05-29 Outpatient STLMLC STLMLC [id number] Common 00:00:00 00:00:00 [facility] 2021-05-22 2021-05-22 Outpatient CURRY_S [facility] [id number] Devoted 05:13:00 05:13:00 0824 Medica l Group 2021-05-22 2021-05-22 Outpatient STLMLC STLMLC [id number] Common 00:00:00 00:00:00 [facility] 2021-05-04 2021-05-04 Outpatient STLMLC STLMLC [id number] Common 00:00:00 00:00:00 [facility] 2021-04-30 2021-04-30 Outpatient STLMLC STLMLC [id number] Common 00:00:00 00:00:00 [facility] 2021-04-30 2021-04-30 Outpatient STLMLC STLMLC [id number] Common 00:00:00 00:00:00 [facility] 2021-04-06 2021-04-06 Outpatient STLMLC STLMLC [id number] Common 00:00:00 00:00:00 [facility] 2021-01-29 2021-01-29 [id number] Devoted 06:02:00 06:02:00 0503 Medica l Group 2021-01-18 2021-01-18 Outpatient DMG DMG [id number] Devoted 12:00:00 12:00:00 0422 Medica l Group 2020-08-14 2020-08-14 Emergency [facility] 1.2.840.114 [id number] 14:12:00 15:54:00 Love Lujan [id number] [place] [id number] [place] [id number] 2020-08-14 2020-08-14 Emergency [facility] 1.2.840.114 [id number] Univers 14:12:00 15:54:00 Love Lujan [id number] page hospital [place] [id number] [facility] [phone] [facility] 084 Branch Results Test Description Test Time Test Comments Results Result Comments Source BASIC METABOLIC PANEL (NA, K, CL, CO2, GLUCOSE, BUN, 2022-08 18:07:32 CREATININE, CA) Test Item Value Reference Range Interpretation Comme nts NA (test code = 5654354914) 143 mmol/L 135-145 K (test code = 9021912199) 4.1 mmol/L 3.5-5.0 CL (test code = 5376055519) 115 mmol/L 98-108 H CO2 TOTAL (test code = 4998921325) 19 mmol/L 23-31 L AGAP (test code = 9343741837) 2-16 BUN (test code = 0381608873) 33 mg/dL 7-23 H GLUCOSE (test code = 4838482392) 66 mg/dL 70-110 L CREATININE (test code = 1.99 mg/dL 0.60-1.25 H 3364607136) CALCIUM (test code = 9536422907) 8.3 mg/dL 8.6-10.6 L eGFR (test code = 4151675383) mL/min/1.73m2 ISIDORO (test code = ISIDORO) Association [...] tests). Lab Interpretation (test code = Abnormal 22976-8) [id number] 15:44:49 Test Item Value Reference Interpretation Comments Range TROPONIN I (test 0.004 ng/mL See_Comment [Automated code = 1125615259) message] The system which generated this result [...] biotin. Lab Interpretation Normal (test code = 38362-0) [facility] 15:27:10 ALCOHOL<10mg/dL08/30/2022 9:27 AM [facility]<10 Lbxayiva51-576 Toxic>100 Depression of STEEL MOLDER>400 Fatal[facility] METABOLIC PANEL (58914) 2022-08-30 15:24:23 Test Item Value Reference Range Interpretation Comments NA (test code = 144 mmol/L 135-145 4035218047) K (test code = 3.9 mmol/L 3.5-5.0 4360018341) CL (test code = 109 mmol/L 98-108 H 2810703508) CO2 TOTAL (test code = 22 mmol/L 23-31 L 6583123119) AGAP (test code = 2-16 2823718839) BUN (test code = 37 mg/dL 7-23 H 4209633864) GLUCOSE (test code = 86 mg/dL 70-110 3782219433) CREATININE (test code = 2.47 mg/dL 0.60-1.25 H 0925247268) TOTAL BILI (test code = 0.8 mg/dL 0.1-1.5 2489583044) CALCIUM (test code = 9.3 mg/dL 8.6-10.6 5202235471) T PROTEIN (test code = 7.0 g/dL 6.3-8.2 1622807762) ALBUMIN (test code = 4.4 g/dL 3.5-5.0 8110733342) ALK PHOS (test code = 119 U/L 34-122 5624961832) ALTv (test code = 22 U/L 5-50 2-6) AST(SGOT) (test code = 38 U/L 13-40 2809026402) eGFR (test code = mL/min/1.73m2 6341555196) ISIDORO (test code = ISIDORO) Association of [...] tests). Lab Interpretation Abnormal (test code = 23787-4) [facility] 15:24:23 Test Item Value Reference Range Interpretation Comments MAGNESIUM (test code = 4045537601) 2.1 mg/dL 1.7-2.4 Lab Interpretation (test code = Normal 89271-4) [facility] WITH [id number] 14:36:33 Test Item Value Reference Range Interpretation Comments WBC (test code = See_Comment [Automated 4958-2) message] The sy stem which generated this result transmitted reference range : 4.20 - 10.70 10*3/?L. The reference range was not used to interpret this result as normal/abnormal . RBC (test code = See_Comment [Automated 426-8) message] The sy stem which generated this [...] RDW-SD (test code = 44.7 fL 38.5-51.6 83330-4) RDW-CV (test code = 13.2 % 12.1-15.4 788-0) PLT (test code = See_Comment [Automated 907-3) message] The sy stem which generated this result transmitted reference range : 150 - 328 10*3/ ?L. The reference r cuong was not used to interpret this result as normal/abnormal . MPV (test code = 9.7 fL 9.8-13.0 L 32506-2) NRBC/100 WBC (test See_Comment [Automat ed code = 3323597710) message] The system which generated this result transmitted reference range : 0.0 - 10.0 /100 WBCs. The refer ence range was not u sed to interpret th is result as normal/abnormal . NRBC x10^3 (test code See_Comment [Auto mated = [id number]) message] The s ystem which generated this result transmitted reference range : 10*3/?L. The reference range was not used to interpret this result as normal/abnormal . GRAN MAT (NEUT) % 62.1 % (test code = 770-8) IMM GRAN % (test code 0.50 % = [id number]) LYMPH % (test code = 22.6 % 736-9) MONO % (test code = 9.1 % 5905-5) EOS % (test code = 5.2 % 713-8) BASO % (test code = 0.5 % 706-2) GRAN MAT x10^3(ANC) 5.38 10*3/uL 1.99-6.95 (test code = [id number]) IMM GRAN x10^3 (test 0.04 10*3/uL 0.00-0.06 code = [id number]) LYMPH x10^3 (test code 1.96 10*3/uL 1.09-3.23 = 731-0) MONO x10^3 (test code 0.79 10*3/uL 0.36-1.02 = 742-7) EOS x10^3 (test code = 0.45 10*3/uL 0.06-0.53 711-2) BASO x10^3 (test code 0.04 10*3/uL 0.01-0.09 = 704-7) Lab Interpretation Abnormal (test code = 33336-7) [id number] 10:17:19 Test Item Value Reference Interpretation Comments Range TROPONIN I (test 0.007 ng/mL See_Comment [Automated code = 8355562907) message] The system which generated this result [...] biotin. Lab Interpretation Normal (test code = 93024-4) [facility]38 Test Item Value Reference Range Interpretation Comments MAGNESIUM (test code = 6008839488) 2.1 mg/dL 1.7-2.4 Lab Interpretation (test code = Normal 39788-3) [facility] (NA, K, CL, CO2, GLUCOSE, BUN, CREATININE, CA)2022-05-24 10:05:18 Test Item Value Reference Range Interpretation Comments NA (test code = 136 mmol/L 135-145 7672097347) K (test code = 4.9 mmol/L 3.5-5 4706985911) CL (test code = 109 mmol/L 98-108 H 0558991936) CO2 TOTAL (test code = 21 mmol/L 23-31 L 8253644816) AGAP (test code = 2-16 8213218085) BUN (test code = 27 mg/dL 7-23 H 2321795457) GLUCOSE (test code = 89 mg/dL 70-110 1155978479) CREATININE (test code = 1.62 mg/dL 0.6-1.25 H 3723031141) CALCIUM (test code = 8.5 mg/dL 8.6-10.6 L 9926603282) eGFR (test code = mL/min/1.73m2 3983259212) ISIDORO (test code = ISIDORO) Association of [...] tests). Lab Interpretation Abnormal (test code = 11402-7) [facility] WITH [id number] 09:31:37 Test Item Value Reference Range Interpretation Comments WBC (test code = See_Comment [Automated 5790-2) message] The sy stem which generated this result transmitted reference range : 4.20 - 10.70 10*3/?L. The reference range was not used to interpret this result as normal/abnormal . RBC (test code = See_Comment L [Automated 449-8) message] The sy stem which generated this [...] RDW-SD (test code = 43.6 fL 38.5-51.6 55549-5) RDW-CV (test code = 13.1 % 12.1-15.4 788-0) PLT (test code = See_Comment [Automated 777-3) message] The sy stem which generated this result transmitted reference range : 150 - 328 10*3/ ?L. The reference r cuong was not used to interpret this result as normal/abnormal . MPV (test code = 9.3 fL 9.8-13 L 87785-7) NRBC/100 WBC (test See_Comment [Automat ed code = 5756383205) message] The system which generated this result transmitted reference range : 0.0 - 10.0 /100 WBCs. The refer ence range was not u sed to interpret th is result as normal/abnormal . NRBC x10^3 (test code See_Comment [Auto mated = 6307570827) message] The s ystem which generated this result transmitted reference range : 10*3/?L. The reference range was not used to interpret this result as normal/abnormal . GRAN MAT (NEUT) % 56.1 % (test code = 770-8) IMM GRAN % (test code 0.40 % = 6001548676) LYMPH % (test code = 27.1 % 736-9) MONO % (test code = 9.9 % 5905-5) EOS % (test code = 5.8 % 713-8) BASO % (test code = 0.7 % 706-2) GRAN MAT x10^3(ANC) 4.53 10*3/uL 1.99-6.95 (test code = 7207224814) IMM GRAN x10^3 (test 0.03 10*3/uL 0-0.06 code = 5446464823) LYMPH x10^3 (test code 2.19 10*3/uL 1.09-3.23 = 731-0) MONO x10^3 (test code 0.80 10*3/uL 0.36-1.02 = 742-7) EOS x10^3 (test code = 0.47 10*3/uL 0.06-0.53 711-2) BASO x10^3 (test code 0.06 10*3/uL 0.01-0.09 = 704-7) Lab Interpretation Abnormal (test code = 78737-2) [facility] [id number] 04:35:45 Test Item Value Reference Interpretation Comments Range TROPONIN I (test 0.004 ng/mL See_Comment [Automated code = 3368481260) message] The system which generated this result [...] biotin. Lab Interpretation Normal (test code = 49160-7) [facility]22-[facility]-24 01:26:40 Test Item Value Reference Range Interpretation Comments Height (test code = in 5891493394) Weight (test code = lbs 5606939271) Systolic BP (test code = mmHg 8865376208) Diastolic BP (test code mmHg = 4881305791) Heart Rate (test code = bpm 8676764796) BSA (test code = 2.09 m2 4561485464) Ao root annulus (test 3.2 cm code = 7312987631) Ao root diam (test code 3.20 cm = 1386063375) Aortic root (test code = 3.2 cm 0488513947) LVOT diameter (test code 2.14 cm = 0182515793) LVIDD (test code = 5.00 cm 2730380455) IVS (test code = 1.31 cm 0376111915) Interventricular Septum 1.31 cm Diastolic Thickness by 2D (test code = 2897036) LVPWD (test code = 1.32 cm 5052145719) PW (test code = 1.32 cm 0.6-1.1 6831848713) EF(Teich) (test code = 61.30 % 5309992767) LVIDS (test code = 3.30 cm 7899270228) FS (test code = 33 % 3558849927) EF - 2D (test code = 61.30 % 49025934) LA size (test code = 3.6 cm 5719692863) TR Peak Mayank (test code = 261.9 cm/s 7463087862) Triscuspid Valve mmHg Regurgitation Peak Gradient (test code = 5857374021) LAV(MOD-sp4) (test code 59.10 mL = 4752435564) E wave decelartion time 0.23 s (test code = 3646290568) MV Peak E Mayank (test code 73.6 cm/s = 7818363141) MV stenosis pressure 1/2 70.2 ms time (test code = 3881102795) MV Peak A Mayank (test code 55.9 cm/s = 5239515554) E/A ratio (test code = ratio 5541088646) MV Prop V (test code = 58.20 cm/s 9330906134) MV E/e' septal (test 12.2 cm/s code = 7495537927) Tapse (test code = 2.9 cm 2449198483) LVOT stroke volume (test 103.80 cm3 code = 8316939986) LVOT peak mayank (test code 147.2 cm/s = 0552950925) LVOT mn grad (test code mmHg = 0683506855) AV LVOT peak gradient mmHg (test code = 2963689405) LVOT peak VTI (test code 28.7 cm = 7172060902) LV V1 mean (test code = 93.00 cm/s 3518460807) Aortic valve mean 119.4 cm/s velocity (test code = 3748623072) Ao peak mayank (test code = 165.6 cm/s 0917588070) Ao VTI (test code = 35.2 cm 7103559518) AV area by cont VTI 2.9 cm2 (test code = 5105451847) AV area peak mayank (test 3.2 cm2 code = 6122565074) Ao max PG (test code = 11.00 mm[Hg] 5598769371) AV peak gradient (test mmHg code = 6325238211) AV valve area (test code 2.90 cm2 = 7285563351) AV mean gradient (test mmHg code = 0064385266) Radiology Study observation (narrative) (test code = 10069-0) ISIDORO (test code = ISIDORO) Formatting of [...] 2D, color flow Doppler and spectral Doppler. [facility] [id number] 14:25:35 Test Item Value Reference Interpretation Comments Range TROPONIN I (test 0.009 ng/mL See_Comment [Automated code = 5939987370) message] The system which generated this result [...] biotin. Lab Interpretation Normal (test code = 63328-3) [facility]. METABOLIC PANEL (90493)2022-05-23 14:14:13 Test Item Value Reference Range Interpretation Comments NA (test code = 143 mmol/L 135-145 0684194603) K (test code = 5.0 mmol/L 3.5-5 4632415495) CL (test code = 111 mmol/L 98-108 H 3950179472) CO2 TOTAL (test code = 20 mmol/L 23-31 L 2897906151) AGAP (test code = 2-16 8514942317) BUN (test code = 30 mg/dL 7-23 H 2885343050) GLUCOSE (test code = 85 mg/dL 70-110 8279619599) CREATININE (test code = 2.07 mg/dL 0.6-1.25 H 2662131045) TOTAL BILI (test code = 0.6 mg/dL 0.1-1.4 6048300207) CALCIUM (test code = 9.0 mg/dL 8.6-10.6 2477592362) T PROTEIN (test code = 7.2 g/dL 6.3-8.2 1751389352) ALBUMIN (test code = 4.4 g/dL 3.5-5 2369865474) ALK PHOS (test code = 121 U/L 34-122 4084896160) ALTv (test code = 23 U/L 5-50 1742-6) AST(SGOT) (test code = 29 U/L 13-40 4378602618) eGFR (test code = mL/min/1.73m2 3721126888) ISIDORO (test code = ISIDORO) Association of [...] tests). Lab Interpretation Abnormal (test code = 00875-0) [facility] WITH [id number] 14:11:10 Test Item Value Reference Range Interpretation Comments WBC (test code = See_Comment H [Automated 3323-2) message] The sy stem which generated this result transmitted reference range : 4.20 - 10.70 10*3/?L. The reference range was not used to interpret this result as normal/abnormal . RBC (test code = See_Comment [Automated 430-8) message] The sy stem which generated this [...] RDW-SD (test code = 42.9 fL 38.5-51.6 17440-4) RDW-CV (test code = 12.9 % 12.1-15.4 788-0) PLT (test code = See_Comment H [Automated 777-3) message] The sy stem which generated this result transmitted reference range : 150 - 328 10*3/ ?L. The reference r cuong was not used to interpret this result as normal/abnormal . MPV (test code = 9.0 fL 9.8-13 L 84491-2) NRBC/100 WBC (test See_Comment [Automat ed code = 2907424269) message] The system which generated this result transmitted reference range : 0.0 - 10.0 /100 WBCs. The refer ence range was not u sed to interpret th is result as normal/abnormal . NRBC x10^3 (test code See_Comment [Auto mated = 7194897505) message] The s ystem which generated this result transmitted reference range : 10*3/?L. The reference range was not used to interpret this result as normal/abnormal . GRAN MAT (NEUT) % 71.9 % (test code = 770-8) IMM GRAN % (test code 0.40 % = 3926147060) LYMPH % (test code = 16.1 % 736-9) MONO % (test code = 8.4 % 5905-5) EOS % (test code = 2.5 % 713-8) BASO % (test code = 0.7 % 706-2) GRAN MAT x10^3(ANC) 8.20 10*3/uL 1.99-6.95 H (test code = 6888433225) IMM GRAN x10^3 (test 0.05 10*3/uL 0-0.06 code = 3792497548) LYMPH x10^3 (test code 1.84 10*3/uL 1.09-3.23 = 731-0) MONO x10^3 (test code 0.96 10*3/uL 0.36-1.02 = 742-7) EOS x10^3 (test code = 0.29 10*3/uL 0.06-0.53 711-2) BASO x10^3 (test code 0.08 10*3/uL 0.01-0.09 = 704-7) Lab Interpretation Abnormal (test code = 55802-9) [facility]"
[2022-10-19] MEDS ORDERED: METHYLPREDNISOLONE 125 MG INJ ONE (22:39)
[2022-10-19] MEDS ORDERED: LORazepam 2 MG/ML VIAL ONE (22:40)
[2022-10-19] MEDS ORDERED: IPRATROPIUM BROM 0.5MG/2.5ML ONE (22:40)
[2022-10-19] MEDS ORDERED: ALBUTEROL 2.5 MG/3 ML NEB SOL ONE (22:40)
[2022-10-19] MEDS ORDERED: FAMOTIDINE 20 MG/2 ML VIAL IV ONE (22:41)
[2022-10-19 23:17] LABS: Urine Blood Negative (Negative); Urine Glucose Negative (Negative); Urine Protein Negative (Negative); Urine Specific Gravity 1.015 (1.005-1.030); Urine pH 5.5 (5.0-7.0)
[2022-10-19 23:21] LABS: Absolute Lymphocytes (CBC) 2.1 K/uL (0.7-4.9); Hematocrit 43.2 % (39.6-49.0); Lymphocytes % 17.8 % (15.3-44.8); MCV 89.6 fL (80-100); MPV 6.5 fL (7.6-11.3); RBC Red Blood Cell Count 4.83 M/uL (4.33-5.43)
[2022-10-19 23:41] LABS: Potassium 4.9 mmol/L (3.5-5.1); Troponin High Sensitivity 12.2 pg/mL (<58.9)
[2022-10-19 23:51] LABS: Urine Bacteria None Seen /HPF (<20); Urine Mucus Slight /HPF (None Seen); Urine RBC None Seen /HPF (None Seen)
[2022-10-20 00:01] LABS: Barbiturates NEGATIVE (NEGATIVE); Benzodiazepines NEGATIVE (NEGATIVE); Cocaine NEGATIVE (NEGATIVE); METHAMPHETAM NEGATIVE (NEGATIVE); Methadone NEGATIVE (NEGATIVE); Opiates NEGATIVE (NEGATIVE); Phencyclidine NEGATIVE (NEGATIVE); THC Cannibis NEGATIVE (NEGATIVE)
[2022-10-20] MEDS ORDERED: KETOROLAC 30 MG/ML INJ ONE (00:40)
[2022-10-20] MEDS ORDERED: NA CHLORIDE 0.9% 1,000 ML ONE (00:40)
--- NOTE | 2022-10-20 01:29 | ER ---
Nurse's Notes [facility] Name: Wood Jj Age: 62 yrs Sex: Male : 1960 Arrival Date: 10/19/2022 Time: 22:10 Bed 18 Private MD: Diagnosis: Allergy, unspecified Presentation: 10/19 22:20 Chief complaint: Patient states: Patient stated is "having an allergic reaction to pf1 something and can't stop itching",onset 2 hours. Patient stated came in contact with a cow today at work and trying to remove it from the pond. 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 Client denies pf1 travel out of the [place] in the last 14 days. At this time, the client does not indicate any symptoms associated with coronavirus-19. Ebola Screen: Patient negative for fever greater than or equal to 101.5 degrees Fahrenheit, and additional compatible Ebola Virus Disease symptoms. Onset: The symptoms/episode began/occurred 2 hour(s) ago. Anaphylaxis evaluation, no signs or symptoms of anaphylaxis were noted. Initial Sepsis Screen: Does the patient meet any 2 criteria? No. Patient's initial sepsis screen is negative. Does the patient have a suspected source of infection? No. Patient's initial sepsis screen is negative. Risk Assessment: Do you want to hurt yourself or someone else? Patient reports no desire to harm self or others. Onset of symptoms was October 19, 2022. 22:20 Method Of Arrival: Ambulatory pf1 22:20 Acuity: LISA 3 pf1 Triage Assessment: 22:20 General: see nursing assessment. pf1 Historical: - Allergies: 10/20 01:00 Trazodone; pf1 01:00 PENICILLINS; pf1 01:00 Benadryl; pf1 01:00 Amitriptyline; "major agression"; pf1 - PMHx: 01:01 drug abuse; Hypercholesterolemia; Hypertension; Myocardial infarction; stroke; pf1 - PSHx: 01:01 Appendectomy; eye sx; Hemorrhoidectomy; Hernia sx; pf1 - Immunization history:: Adult Immunizations not up to date. - Social history:: Smoking status: Patient reports the use of cigarette tobacco products. Screenin/21 22:30 Abuse screen: Denies threats or abuse. Nutritional screening: No deficits noted. pf1 22:30 Tuberculosis screening: No symptoms or risk factors identified. pf1 22:[address] [facility] ED Fall Risk Assessment (Adult) History of falling in the last 3 months, pf1 including since admission No falls in past 3 months (0 pts) Confusion or Disorientation No (0 pts) Intoxicated or Sedated No (0 pts) Impaired Gait No (0 pts) Mobility Assist Device Used No (0 pt) Altered Elimination No (0 pt) Score/Fall Risk Level 0 - 2 = Low Risk Oriented to surroundings, Maintained a safe environment, Educated pt \\T\\ family on fall prevention, incl call for assistance when getting out of bed, Assessed \\T\\ reinforced patient's understanding of fall precautions, Provided non-skid footwear, Hourly rounding (assess needs \\T\\ fall precautionary measures) done, Used ambulatory aids as needed (educated on \\T\\ assisted with), Used gait belt as appropriate. Assessment: 00:30 Reassessment: Patient appears in no apparent distress at this time. No changes from pf1 previously documented assessment. Patient and/or family updated on plan of care and expected duration. Pain level reassessed. Patient is alert, oriented x 3, equal unlabored respirations, skin warm/dry/pink. Patient states feeling better. Patient states symptoms have improved. 22:20 General: Appears in no apparent distress. uncomfortable, well groomed, well developed, pf1 Behavior is cooperative, appropriate for age, anxious, restless. 22:20 Pain: Denies pain. Neuro: No deficits noted. Level of Consciousness is awake, alert, pf1 obeys commands, Oriented to person, place, time, situation. Cardiovascular: No deficits noted. Capillary refill < 3 seconds Patient's skin is warm and dry. Respiratory: Airway is patent Trachea midline Respiratory effort is even, unlabored, Respiratory pattern is regular, symmetrical, Breath sounds are clear bilaterally. GI: No deficits noted. No signs and/or symptoms were reported involving the gastrointestinal system. : No deficits noted. No signs and/or symptoms were reported regarding the genitourinary system. EENT: No deficits noted. No signs and/or symptoms were reported regarding the EENT system. Derm: Reports itching, since 2 hours ago. Patient stated does not know what he came in contact with. Patient stated was pulling a cow out of the pond today at work.. Musculoskeletal: No deficits noted. No signs and/or symptoms reported regarding the musculoskeletal system. 23:30 Reassessment: Patient appears in no apparent distress at this time. Patient and/or pf1 family updated on plan of care and expected duration. Pain level reassessed. Patient is alert, oriented x 3, equal unlabored respirations, skin warm/dry/pink. Patient states feeling better. Patient states symptoms have improved. 10/20 00:30 Reassessment: Patient appears in no apparent distress at this time. Patient and/or pf1 family updated on plan of care and expected duration. Pain level reassessed. Patient sleeping at this time. Sister at Patient states symptoms have improved. 01:30 Reassessment: Patient appears in no apparent distress at this time. No changes from pf1 previously documented assessment. Patient and/or family updated on plan of care and expected duration. Pain level reassessed. Patient is alert, oriented x 3, equal unlabored respirations, skin warm/dry/pink. Patient states symptoms have improved. Vital Signs: 10/19 22:20 BP 127 / 62; Pulse 71; Resp 18; Temp 98; Pulse Ox 100% on R/A; Weight 85.73 kg; Height pf1 5 ft. 6 in. (167.64 cm); Pain 0/10; 23:30 BP 111 / 49; Pulse 65; Resp 18; Pulse Ox 100% on R/A; Pain 0/10; pf1 10/20 00:30 BP 99 / 65; Pulse 58; Resp 14; Pulse Ox 96% on R/A; Pain 0/10; pf1 00:56 BP 109 / 60; Pulse 68; Resp 18; Pulse Ox 94% on R/A; Pain 0/10; pf1 01:30 BP 123 / 68; Pulse 60; Resp 14; Pulse Ox 95% on R/A; Pain 0/10; pf1 02:15 BP 118 / 62; Pulse 62; Resp 18; Temp 98.2(O); Pulse Ox 97% on R/A; Pain 0/10; pf1 10/19 22:20 Body Mass Index 30.51 (85.73 kg, 167.64 cm) pf1 ED Course: 10/19 22:10 Patient arrived in ED. [id number] 22:11 Gurpreet Chan PA is PHCP. cp 22:12 Dev Nick MD is Attending Physician. cp 22:27 Tammy levi, BRIGIDA is Primary Nurse. pf1 22:32 Triage completed. pf1 22:32 Patient has correct armband on for positive identification. Placed in gown. Bed in low pf1 position. Call light in reach. 22:32 No provider procedures requiring assistance completed. Missed attempt(s): 22 gauge in pf1 right forearm. 22:35 Arm band placed on right wrist. pf1 23:00 Inserted saline lock: 20 gauge in left antecubital area, using aseptic technique. Blood pf1 collected. 23:52 XRAY Chest (1 view) In Process Unspecified. EDMS 10/20 02:26 IV discontinued, intact, bleeding controlled, No redness/swelling at site. Pressure pf1 dressing applied. 04:14 LAB Add On Sent. pf1 Administered Medications: 10/19 23:00 Drug: Ativan (LORazepam) 0.5 mg Route: IVP; Site: left antecubital; pf1 10/20 00:00 Follow up: Response: No adverse reaction; Marked relief of symptoms pf1 10/19 23:00 Drug: SOLU-Medrol (methylPrednisoLONE) 125 mg Route: IVP; Site: left antecubital; pf1 10/20 00:00 Follow up: Response: No adverse reaction; Marked relief of symptoms pf1 10/19 23:00 Drug: Pepcid (famotidine) 20 mg Route: IVP; Site: left antecubital; pf1 10/20 00:00 Follow up: Response: No adverse reaction; Marked relief of symptoms pf1 00:00 Follow up: Response: No adverse reaction; Marked relief of symptoms pf1 10/19 23:00 Drug: Albuterol - atroVENT (ipratropium) (3:1) (2.5 mg - 0.5 mg) 3 ml Route: Nebulizer; pf1 10/20 00:00 Follow up: Response: Marked relief of symptoms pf1 00:40 Drug: NS 0.9% 1000 ml Route: IV; Rate: 1 bolus; Site: left antecubital; pf1 00:53 Follow up: Response: No adverse reaction; Marked relief of symptoms pf1 01:40 Follow up: IV Status: Completed infusion; IV Intake: 1000ml pf1 00:40 Drug: Ketorolac 10 mg 10 mg Route: IVP; Site: left antecubital; pf1 00:53 Follow up: Response: No adverse reaction; Marked relief of symptoms; Pain is decreased; pf1 RASS: Alert and Calm (0) 02:00 Drug: hydrOXYzine 25 mg Route: PO; pf1 02:15 Follow up: Response: No adverse reaction; Marked relief of symptoms pf1 Medication: 10/19 22:30 VIS not applicable for this client. pf1 Intake: 10/20 01:40 IV: 1000ml; Total: 1000ml. pf1 Outcome: 01:28 Discharge ordered by MD. cp 02:27 Discharged to home via wheelchair, with family. pf1 02:27 Condition: improved 02:27 Discharge instructions given to patient, family, Instructed on discharge instructions, follow up and referral plans. medication usage, Demonstrated understanding of instructions, follow-up care, medications, Prescriptions given X 3. 02:27 Patient left the ED. pf1 Signatures: Dispatcher [employer] EDMS Gurpreet Chan PA PA cp Jeffries, Jennifer [id number] Tammy levi, RN RN pf1
--- NOTE | 2022-10-20 01:29 | EDPHYS ---
Physician Documentation [facility] Name: Wood Jj Age: 62 yrs Sex: Male : 1960 Arrival Date: 10/19/2022 Time: 22:10 Bed 18 Private MD: ED Physician Dev Nick HPI: 10/19 22:30 This 62 yrs old Male presents to ER via Ambulatory with complaints of Allergic Reaction.cp 22:30 The patient presents with itching. Onset: The symptoms/episode began/occurred 2 hour(s) cp ago. Associated signs and symptoms: Pertinent positives: nausea, shortness of breath, Pertinent negatives: abdominal pain, chest pain, fever, vomiting. Possible causes: reports exposed to cow that he removed today from water. At home the patient or guardian has treated the symptoms with Benadryl. Severity of symptoms: in the emergency department the symptoms are unchanged despite home interventions. Historical: - Allergies: 10/20 01:00 Trazodone; pf1 01:00 PENICILLINS; pf1 01:00 Benadryl; pf1 01:00 Amitriptyline; "major agression"; pf1 - PMHx: 01:01 drug abuse; Hypercholesterolemia; Hypertension; Myocardial infarction; stroke; pf1 - PSHx: 01:01 Appendectomy; eye sx; Hemorrhoidectomy; Hernia sx; pf1 - Immunization history:: Adult Immunizations not up to date. - Social history:: Smoking status: Patient reports the use of cigarette tobacco products. ROS: 10/19 22:35 Constitutional: Negative for body aches, chills, fever, poor PO intake. cp 22:35 Eyes: Negative for injury, pain, redness, and discharge. cp 22:35 ENT: Negative for drainage from ear(s), ear pain, sore throat, difficulty swallowing, difficulty handling secretions. 22:35 Cardiovascular: Negative for chest pain, edema, palpitations. 22:35 Respiratory: Positive for shortness of breath, Negative for cough. 22:35 Abdomen/GI: Positive for nausea, Negative for vomiting, diarrhea, constipation. 22:35 : Negative for urinary symptoms. 22:35 Skin: Negative for cellulitis, rash. 22:35 Neuro: Negative for altered mental status, dizziness, headache, weakness. 22:35 All other systems are negative. Exam: 22:40 Constitutional: The patient appears in no acute distress, alert, awake, cp non-diaphoretic, non-toxic, well developed, well nourished, anxious, uncomfortable. 22:40 Head/Face: Normocephalic, atraumatic. cp 22:40 Eyes: Periorbital structures: appear normal, Pupils: equal, round, and reactive to light and accomodation, Extraocular movements: intact throughout, Conjunctiva: normal, no exudate, no injection, Sclera: no appreciated abnormality, Lids and lashes: appear normal, bilaterally. 22:40 ENT: External ear(s): are unremarkable, Nose: is normal, Mouth: Lips: moist, Oral mucosa: moist, Posterior pharynx: is normal, airway is patent, no erythema, no exudate, no swelling, Voice: is normal. 22:40 Chest/axilla: Inspection: normal, Palpation: is normal, no crepitus, no tenderness. 22:40 Cardiovascular: Rate: normal, Rhythm: regular, Edema: is not appreciated, JVD: is not appreciated. 22:40 Respiratory: the patient does not display signs of respiratory distress, Respirations: normal, no use of accessory muscles, no retractions, labored breathing, is not present, Breath sounds: are clear throughout, no decreased breath sounds, no stridor, no wheezing. 22:40 Abdomen/GI: Inspection: abdomen appears normal, Palpation: abdomen is soft and non-tender, in all quadrants. 22:40 Skin: no rash present. 22:40 Neuro: Orientation: is normal, Mentation: is normal, Motor: moves all fours, strength is normal, Sensation: is normal. 23:34 ECG was reviewed by the Attending Physician. cp Vital Signs: 22:20 BP 127 / 62; Pulse 71; Resp 18; Temp 98; Pulse Ox 100% on R/A; Weight 85.73 kg; Height pf1 5 ft. 6 in. (167.64 cm); Pain 0/10; 23:30 BP 111 / 49; Pulse 65; Resp 18; Pulse Ox 100% on R/A; Pain 0/10; pf1 10/20 00:30 BP 99 / 65; Pulse 58; Resp 14; Pulse Ox 96% on R/A; Pain 0/10; pf1 00:56 BP 109 / 60; Pulse 68; Resp 18; Pulse Ox 94% on R/A; Pain 0/10; pf1 01:30 BP 123 / 68; Pulse 60; Resp 14; Pulse Ox 95% on R/A; Pain 0/10; pf1 02:15 BP 118 / 62; Pulse 62; Resp 18; Temp 98.2(O); Pulse Ox 97% on R/A; Pain 0/10; pf1 10/19 22:20 Body Mass Index 30.51 (85.73 kg, 167.64 cm) pf1 MDM: 10/19 22:21 Patient medically screened. 10/20 01:28 Data reviewed: vital signs, nurses notes, lab test result(s), EKG, radiologic studies, cp plain films. :28 Differential diagnosis: anaphylaxis, angioedema, urticaria, illegal drug use. I cp considered the following discharge prescriptions or medication management in the emergency department Medications were administered in the Emergency Department. See MAR. Care significantly affected by the following chronic conditions: Hypertension. Care significantly affected by the following Social Determinants of Health: Misuse of alcohol and/or drugs. Counseling: I had a detailed discussion with the patient and/or guardian regarding: the historical points, exam findings, and any diagnostic results supporting the discharge/admit diagnosis, lab results, radiology results, to return to the emergency department if symptoms worsen or persist or if there are any questions or concerns that arise at home. Response to treatment: the patient's symptoms have markedly improved after treatment, and as a result, I will discharge patient. 10/19 22:27 Order name: Basic Metabolic Panel; Complete Time: 23:49 cp 10/19 23:50 Interpretation: Normal except: GLUC 107; BUN 21; CRE 1.89; GFR 40. cp 10/19 22:27 Order name: CBC with Diff; Complete Time: 23:49 cp 10/20 00:18 Interpretation: Normal except: WBC 12.00; MPV 6.5; EOSINOPHIL % 8.9; EOSA 1.1. cp 10/19 22:27 Order name: NT PRO-BNP; Complete Time: 23:49 cp 10/19 22:27 Order name: Troponin HS; Complete Time: 23:49 cp 10/19 22:35 Order name: UDS; Complete Time: 00:04 cp 10/20 00:05 Interpretation: Reviewed. 10/19 22:35 Order name: Urine Microscopic Only; Complete Time: 00:04 cp 10/20 00:05 Interpretation: Reviewed. 10/19 22:27 Order name: XRAY Chest (1 view) cp 10/19 23:17 Order name: Urine Dipstick-Ancillary; Complete Time: 23:49 EDMS 10/20 00:22 Order name: ETOH Level; Complete Time: 01:12 cp 10/20 01:12 Interpretation: Reviewed. 10/20 00:22 Order name: LAB Add On cp 10/19 22:27 Order name: EKG; Complete Time: 22:28 cp 10/19 22:27 Order name: Cardiac monitoring; Complete Time: 23:18 cp 10/19 22:27 Order name: EKG - Nurse/Tech; Complete Time: 23:43 cp 10/19 22:27 Order name: IV Saline Lock; Complete Time: 23:18 cp 10/19 22:27 Order name: Labs collected and sent; Complete Time: 23:19 cp 10/19 22:27 Order name: O2 Per Protocol; Complete Time: 23:18 cp 10/19 22:27 Order name: O2 Sat Monitoring; Complete Time: 23:18 cp 10/19 22:35 Order name: Urine Dipstick-Ancillary (obtain specimen); Complete Time: 23:18 cp EC/21 23:34 Rate is 61 beats/min. Rhythm is regular. MA interval is normal. QRS interval is normal. cp QT interval is normal. T waves are Inverted in lead aVR. Interpreted by me. Reviewed by me. Administered Medications: 23:00 Drug: Ativan (LORazepam) 0.5 mg Route: IVP; Site: left antecubital; pf1 10/20 00:00 Follow up: Response: No adverse reaction; Marked relief of symptoms pf1 10/19 23:00 Drug: SOLU-Medrol (methylPrednisoLONE) 125 mg Route: IVP; Site: left antecubital; pf1 10/20 00:00 Follow up: Response: No adverse reaction; Marked relief of symptoms pf1 10/19 23:00 Drug: Pepcid (famotidine) 20 mg Route: IVP; Site: left antecubital; pf1 10/20 00:00 Follow up: Response: No adverse reaction; Marked relief of symptoms pf1 00:00 Follow up: Response: No adverse reaction; Marked relief of symptoms pf1 10/19 23:00 Drug: Albuterol - atroVENT (ipratropium) (3:1) (2.5 mg - 0.5 mg) 3 ml Route: Nebulizer; pf1 10/20 00:00 Follow up: Response: Marked relief of symptoms pf1 00:40 Drug: NS 0.9% 1000 ml Route: IV; Rate: 1 bolus; Site: left antecubital; pf1 00:53 Follow up: Response: No adverse reaction; Marked relief of symptoms pf1 01:40 Follow up: IV Status: Completed infusion; IV Intake: 1000ml pf1 00:40 Drug: Ketorolac 10 mg 10 mg Route: IVP; Site: left antecubital; pf1 00:53 Follow up: Response: No adverse reaction; Marked relief of symptoms; Pain is decreased; pf1 RASS: Alert and Calm (0) 02:00 Drug: hydrOXYzine 25 mg Route: PO; pf1 02:15 Follow up: Response: No adverse reaction; Marked relief of symptoms pf1 Disposition: 03:45 Co-signature as Attending Physician, Dev Nick MD I reviewed the patient's care rt provided by the Advanced Practice Provider and agree with the diagnosis and treatment plan. Disposition Summary: 10/20/22 01:28 Discharge Ordered Location: Home cp Problem: new cp Symptoms: have improved cp Condition: Stable cp Diagnosis - Allergy, unspecified cp Followup: cp - With: Private Physician - When: 2 - 3 days - Reason: Recheck today's complaints Discharge Instructions: - Discharge Summary Sheet cp - Allergies, Adult cp - Pruritus cp Forms: - Medication Reconciliation Form cp - Thank You Letter cp - Antibiotic Education cp - Prescription Opioid Use cp Prescriptions: - Vistaril 25 mg Oral capsule - take 2 capsule by ORAL route 3-4 times daily As needed for itching; 30 capsule; cp Refills: 0, Product Selection Permitted - Pepcid 20 mg Oral Tablet - take 1 tablet by ORAL route every 12 hours for 5 days; 10 tablet; Refills: 0, cp Product Selection Permitted - Prednisone 20 mg Oral Tablet - take 3 tablet by ORAL route once daily for 5 days; 15 tablet; Refills: 0, cp Product Selection Permitted Signatures: Dispatcher [facility] Gurpreet Chan PA PA cp [place], Ryan, MD MD rt Tammy levi, RN RN pf1
[2022-10-20] MEDS ORDERED: hydrOXYzine HCL 25 MG TAB ONE (02:04)
[2022-10-20 05:25] VITALS: TEMP 98
[2022-10-20 05:39] VITALS: BP 109/60; O2SAT 94
--- NOTE | 2022-10-21 14:06 | RAD REPORT ---
EXAM DESCRIPTION: Chest Single View 10/20/2022 12:05 AM [employer] CLINICAL HISTORY: 62 years, Male, SOB COMPARISON: None. FINDINGS: Single view of the chest was obtained portable. No prior films are available for compariso n. The cardiomediastinal silhouette demonstrate to be unremarkable. The heart is not enlarged. The th oracic aorta is mildly tortuous. The pulmonary vasculature is normal distribution. Costophrenic angle s are sharp. No areas of consolidation or masses are seen. External EKG leads within the field-of-v iew limits diagnosis. The rest of the soft tissue and bony structures demonstrate to be unremarkable. IMPRESSION: No acute cardiopulmonary disease seen. Electronically signed by: Scar Becerra MD 10/20/2022 12:05 AM [employer] Due to temporary technical issues with the PACS/Fluency reporting system, reports are being signed by the in house radiologists without review as a courtesy to insure prompt reporting. The interpreting radiologist is fully responsible for the content of the report
--- NOTE | 2022-10-21 16:53 | EKG ---
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
== END 2022-10-20 02:27 | disposition home or self-care (01) ==
LOC: ER 22:07
DX: R06.02 Shortness of breath (principal); L29.9 Pruritus, unspecified; R11.0 Nausea; I10 Essential (primary) hypertension; Z72.0 Tobacco use; Z88.0 Allergy status to penicillin; Z88.5 Allergy status to narcotic agent; Z88.8 Allergy status to other drugs, medicaments and biological substances
CPT/HCPCS: 96361; 93005; 85025; 80048; 36415; 84484; 83880; 80307; 71045; 94640; 96375; 96374; 99284; J7613; J7644; J7030; J2930; G0480; 81003; 81015

== ENCOUNTER 2022-11-24 17:22 | Emergency (ER) | payer MEDICARE ==
--- OUTSIDE RECORDS SUMMARY | 2022-11-24 17:31 | XMS REPORT | Continuity of Care Document ---
:1960 Author Organization [facility] t Address [address] [place] [address] Care Team Providers Name Role Phone CAROLA ROSS Primary Care Physician Unavailable Carola Ross Attending Clinician Unavailable Gloria Garcia Attending Clinician Corinna Stroud Attending Clinician CHRISTEN OBANDO Attending Clinician Unavailable Christen Obando DO Attending Clinician GERTRUDE CHINCHILLA Attending Clinician Unavailable Gertrude Chinchilla DO Attending Clinician Carson_B Attending Clinician Unavailable Cobb_T Attending Clinician Unavailable Simón Rollins RN Attending Clinician Unavailable CALLIE CUELLAR Attending Clinician Unavailable Callie Cuellar DO Attending Clinician Desjuddzo_T Attending Clinician Unavailable Doctor Unassigned, [facility] Attending Clinician Unavailable NEELA ALBARADO Attending Clinician Unavailable NEELA ALBARADO Attending Clinician Unavailable VIKASH GRIMALDO Attending Clinician Unavailable Silva Szymanski MD Attending Clinician Vikash Grimaldo MD Attending Clinician SERENITY Attending Clinician Unavailable Gretta Ruiz Attending Clinician CURRY_S Attending Clinician Unavailable Jaskaranelma JOYNERLove Attending Clinician CHRISTEN OBANDO Admitting Clinician Unavailable GERTRUDE CHINCHILLA Admitting Clinician Unavailable [place]_B Admitting Clinician Unavailable Cobb_T Admitting Clinician Unavailable CALLIE CUELLAR Admitting Clinician Unavailable Callie Cuellar DO Admitting Clinician Deshazo_T Admitting Clinician Unavailable VIKASH GRIMALDO Admitting Clinician Unavailable Vikash Grimaldo MD Admitting Clinician OWENS_T Admitting Clinician Unavailable CURRTanisha_S Admitting Clinician Unavailable Payers Payer Name Policy Type Policy Effective Date Expiration Date Sour ce Number [id number] 2020 MEDICARE 00:00:00 ADVANTAGE PLAN [id number] 2021 (MEDICARE 00:00:00 REPLACEMENT HMO) [id number] 2021 Common Spi rit 00:00:[id number] 2021 Common Spi rit 00:00:[address] 2021 Common Spi rit 00:00:[address] 2021 Common Spi rit 00:00:00 [facility] Problems Condition Condition Condition Status Onset Resolution Last Treating Co mments Source Name Details Category Date Date Treatment Clinician Date Chest Chest Disease Active Univers pain, pain, 8-25 [place]y [place] d type 00 Medical [place] Other Other Disease Active Univers hyperlipid hyperlipid 8-25 it y of emia emia 00:00: [place] 00 Medical Branch Drug abuse Drug abuse Disease Active U nivers 8-25 ity of 00:00: [place] 00 Medical Branch Nonobstruc Nonobstruc Disease Active U nivers tive tive 8-25 [place]y of atheroscle [place]roscle [place]sis of 00 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 CAMDEN (acute CAMDEN (acute Disease Active 2020-09 U nivers kidney kidney 2-30 ity of injury) injury) 00:00: [place] Medical [facility] Esophageal Esophageal Disease Active U nivers spasm spasm 4-30 ity of 00:00: [place] 00 Medical Branch A-fib A-fib Disease Active Univers 4-24 ity of 00:00: [place] [facility] Atrial Atrial Disease Active Univers fibrillati fibrillati 4-23 it y of on with on with 00:00: [place] RVR RVR 00 Medical Branch Shortness Shortness Disease Active Uni vers of breath of breath 01-19 ity of 00:00: [place] Medical [facility] NSTEMI NSTEMI Disease Active Univers (non-ST (non-ST 01-19 ity of elevated elevated 00:00: [place] myocardial myocardial 00 Me dical infarction infarction Br anch ) ) Tobacco Tobacco Disease Active Univers abuse abuse 01-19 ity of 00:00: [place] Medical Branch Family Family Disease Active Univers history of history of 01-19 it y of early CAD early CAD 00:00: [facility] Districta s 00 Medical Branch Inguinal Inguinal Disease Active 2016-09 Unive rs hernia hernia 2-04 ity of 00:00: [place] 00 Medical Branch Status Status Disease Active Univers epilepticu epilepticu 4-26 it y of s s 00:00: [place] [facility] Seizure Seizure Disease Active Univers 4-26 ity of 00:00: [place] 00 Medical Branch [id number] 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, - CHI cerebral [facility] [id number] Diverticul Problem C ommon [id number] osis large Spirit intestine - CHI w/o St perforatio [facility] n or Medical abscess Center w/bleeding [id number] 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 [facility] [id number] Cerebral Problem Comm on infarction Spirit , - CHI unspecifie [facility] [id number] Chronic Problem Commo n kidney Spirit disease, - CHI stage 3b [facility] [id number] 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 - CHI spine, St unspecifie [facility] spinal Medical osteoarthr Center itis complicati on status Stroke Stroke Problem Common Spirit - [facility] [id number] Incontinen Problem Com mon ce of Spirit feces, - CHI unspecifie [facility] fecal [facility] incontinen Medica l ce type Center [id number] Primary Problem Common insomnia Spirit - [facility] [id number] TIA Problem Common (transient Spirit ischemic - CHI attack) [facility] [id number] Aphasia Problem Common [facility] - [facility] [id number] Body mass Problem Com mon index Spirit [BMI] - [facility] 31.0-31.9, [facility] [id number] Other Problem Common obesity Spirit due to - CHI excess [facility] [id number] Mixed Problem Common hyperlipid Spirit emia - [facility] [id number] Paroxysmal Problem Co mmon atrial Spirit fibrillati - CHI on [facility] [id number] Vitamin D Problem Comm on deficiency Spirit [facility] [id number] Primary Problem Comm on osteoarthr Spirit itis of - CHI left knee [facility] [id number] Other Problem Common chronic Spirit pain - [facility] [id number] Arthritis Problem Co mmon [id number] of knee, [facility] left [facility] [id number] Essential Problem Comm on hypertensi Spirit on CHI [facility] [id number] Tobacco Problem Commo n use Spirit disorder, - CHI continuous [facility] [id number] Non-season Problem Com mon al Spirit allergic - [facility], [id number] Primary Problem Comm on osteoarthr Spirit itis of - CHI left [facility] Primary Primary Problem Common osteoarthr osteoarthr Sp awais itis itis - CHI involving [facility] Allergies, Adverse Reactions, Alerts Allergy Allergy Status Severity Reaction(s) Onset Inactive Treating Comm ents Source Name Type Date Date Clinician LORAZEPA DRUG Active Anaphylaxis Uni vers M INGREDI 05-23 ity of 00:00: [place] 00 Medical Branch Lorazepa Propensi Active Anaphylaxis Pt has U nivers m ty to 05-23 had ity of adverse 00:00: multiple [place] reaction 00 administr Medic al s ations of Branch ativan IV as well as EM without any negative reactions . BENADRYL DRUG Active High Swelling 2019-1 Univer s ALLERGY 1-14 ity of DECONGES 00:00: [place] TANT 00 Medical Branch Benadryl Propensi Active Swelling 2019-1 Univ ers Allergy ty to 1-14 ity [...] Medical s Branch BEE DRUG Active Anaphylaxis 2014-0 Unive rs STING / INGREDI 4-26 ity of VENOM 00:00: [place] 00 Medical Branch Bee Propensi Active Anaphylaxis 2014-0 Uni vers Sting / ty to 4-26 ity of Venom adverse 00:00: [place] reaction 00 Medical s to Branch drug VENOM-WA DRUG Active Anaphylaxis 2014-0 Uni vers SP INGREDI 4-26 ity of 00:00: [place] 00 [facility] Branch Venom-Wa Propensi Active Anaphylaxis 2014-0 U nivers sp ty to 4-26 ity of adverse 00:00: [place] reaction 00 [facility] Branch penicill penicill Active swells Common in G in G throat shut Spiri t - [facility] diazepam diazepam Active Stops heart C ommon Spirit - [facility] Social History Social Habit Start Date Stop Date Quantity Comments Source History of Tobacco Current Smoker Co mmon Spirit - Use [facility] Sex Assigned At Common Sp awais - [facility] Exposure to 2022-10-10 2022-10-20 Not sure University SARS-CoV-2 (event) 00:00:00 04:49:00 [facility] Alcohol intake 2022-08-30 2022-08-30 Current University of 00:00:00 00:00:00 non-drinker of [facility] alcohol Branch (finding) Cigarette 2021-09-27 2021-09-27 University of pack-years 00:00:00 00:00:00 [facility] Tobacco use and 2021-09-27 2021-09-27 Smokeless Universit y of exposure 00:00:00 00:00:00 tobacco non-user [facility] dical Branch Education 2021-09-27 2021-09-27 8 University of 00:00:00 00:00:00 [facility] Cigarettes smoked 2021-09-27 2021-09-27 Univers ity of current (pack per 00:00:00 00:00:00 ) - Reported Branch Smoking Status Start Date Stop Date Source Current Smoker 2022-10-08 00:00:00 Common [facility] Medications Ordered Filled Start Stop Current Ordering Indication Dosage Frequency Signature Comments Components Source Medication Medication Date Date Medication? Clinician (SIG) Name Name dextrose 50 2021-09- No 50mL 50 mL, Uni vers % in water 10-31 Slow IV ity o f (D50W) 19:30: 18:42 Push, [place] injection 00 :00 ONCE, 1 Medical 50 mL dose, On Branch Fri08/30/22 at 1330, Routine NaCl 0.9% 2021-09- No 1000mL at 999 [...] 1000mL at 999 Uni vers (NS) bolus 10-31-02 mL/hr, ity of infusion 14:45: 15:24 1,000 mL, Lauri as 1,000 mL 00 :00 IV Medical Infusion, Branch ONCE, 1 dose, On Fri08/30/22 at 0845, VANNA carvediloL 2021- No [id number] 3.125mg Take 1 Univers 3.125 mg 05-25 tablet by ity o f tablet 00:00: 04:59 mouth in [place] 00 :00 the Medical morning Branch and 1 tablet in the evening. Take with meals. Do all this for 30 days. carvediloL 2021- No [id number] 3.125mg Take 1 Univers 3.125 mg 05-25 tablet by ity o f tablet 00:00: 04:59 mouth in [place] 00 :00 the Medical morning Branch and 1 tablet in the evening. Take with meals. Do all this for 30 days. nicotine Yes 1{patch Apply 1 Univers mg/24 hr 8 } Patch to ity of patch 17:45: area(s) [place] 28 every 24 Medical (twenty-fo Branch ur) hours. Patient reports he smokes 13 cigarettes per day. nicotine Yes 1{patch Apply 1 Univers mg/24 hr 8- } Patch to ity of patch 17:45: area(s) [place] 28 every 24 Medical (twenty-fo Branch ur) hours. Patient reports he smokes 13 cigarettes per day. nicotine Yes 1{patch Apply 1 Univers mg/24 hr 8- } Patch to ity of patch 17:45: area(s) [place] 28 every 24 Medical (twenty-fo Branch ur) hours. Patient reports he smokes 13 cigarettes per day. nicotine Yes 1{patch Apply 1 Univers mg/24 hr 8- } Patch to ity of patch 17:45: area(s) [place] 28 every 24 Medical (twenty-fo Branch ur) hours. Patient reports he smokes 13 cigarettes per day. hydrOXYzine Yes 10mg 10 mg, Univ ers (ATARAX) 8- Oral, ity of tablet 10 15:14: Q6HPRN, [place] mg 53 Starting Medical on Fri Branch 05/24/22 at 1014, Until Discontinu ed, Routine, Anxiety, Itching polyethylen 0 Yes 17g 17 g, Unive rs e glycol 8- Oral, ity of 3350 powder 14:00: DAILY, [place] 17 g 00 First dose Medical on Fri Branch 05/24/22 at 0900, Until Discontinu ed, Routine pantoprazol 2021-0 Yes 40mg 40 mg, Univ ers e - Oral, ity of (PROTONIX) 14:00: DAILY, [place] EC tablet 00 First dose Medi usman 40 mg on Fri Branch 05/24/22 at 0900, Until Discontinu ed, Routine lisinopriL 2021-0 Yes 2.5mg 2.5 mg, Uni vers (PRINIVIL,Z 05-24 Oral, ity of ESTRIL) 14:00: DAILY, [place] tablet 2.5 00 First dose Med ical mg on Fri Branch 05/24/22 at 0900, Until Discontinu ed, Routine isosorbide 0 Yes 30mg 30 mg, Unive rs mononitrate 05-24 Oral, ity of (IMDUR) 24 14:00: DAILY, [place] hr tablet 00 First dose Medi usman 30 mg on Fri Branch 05/24/22 at 0900, Until Discontinu ed, Routine atorvastati 0 Yes 80mg 80 mg, Univ ers n (LIPITOR) 05-24 Oral, ity of tablet 80 14:00: DAILY, [place] mg 00 First dose Medical on Fri Branch 05/24/22 at 0900, Until Discontinu ed, Routine aspirin 2021-0 Yes 81mg 81 mg, Univers chewable 05-24 Oral, ity of tablet 81 14:00: DAILY, [place] mg 00 First dose Medical on Fri [place] 05/24/22 at 0900, Until Discontinu ed, Routine carvediloL 2021-0 Yes 3.125mg 3.125 mg, Univers (COREG) 05-24 Oral, BID ity of tablet 13:00: MEALS, [place] 3.125 mg 00 First dose Medic al on Fri Branch 05/24/22 at 0800, Until Discontinu ed, Routine NaCl 0.9% 2021-0 Yes 1000mL at 75 Unive rs (NS) IV 8-26 mL/hr, IV ity of infusion 01:30: Infusion, [place] 1,000 mL 00 CONTINUOUS Medic al , Starting Branch on Fri05/23/22 at 2030, Until Discontinu ed, Routine sennosides- 2022-0 Yes 1{tbl} 1 tablet, Univers docusate 05-24 [...] = 1 mg/kg Medical ?93 kg), [facility], First dose (after last modificati on) on [facility] 05/23/22 at 2000, Until Discontinu ed, Routine nicotine 0 Yes 1{patch 1 Patch, Un lee (NICODERM) 05-24 } Topical, ity o f 21 mg/24 hr 00:45: Administer [place] patch 1 00 over 24 Medical Patch Hours, Branch Q24H, First dose on [facility] 05/23/22 at 1945, Until Discontinu ed, Routine hydrOXYzine 2021- No [id number] 10mg Take 1 Univers 10 mg 05-24 tablet by ity of tablet 00:00: 04:59 mouth [place] 00 :00 every 6 Medical (six) Branch hours as needed for Anxiety for up to 30 days. hydrOXYzine 2021- No [id number] 10mg Take 1 Univers 10 mg 05-24 tablet by ity of tablet 00:00: 04:59 mouth [place] 00 :00 every 6 Medical (six) Branch hours as needed for Anxiety for up to 30 days. enoxaparin 0 2021- No 40mg 40 mg, Univ ers (LOVENOX) 05-23 08-25 Subcutaneo ity of injection 22:00: 23:48 us, DAILY, [place] 40 mg 00 :16 First dose Medical on Nohemy Branch 05/23/22 at 1700, Until Discontinu ed, Routine ondansetron 0 Yes 4mg 4 mg, Slow Univers (ZOFRAN 8 IV Push, ity of (PF)) 19:56: Q6HPRN, [place] injection 4 03 Starting Medi usman mg on Nohemy Branch 05/23/22 at 1456, Until Discontinu ed, Routine, Nausea and Vomiting (N/V) HYDROcodone 2021- No 1{tbl} 1 tablet, Univers -acetaminop 05-23 Oral, ity of hen (NORCO 19:55: 19:54 Q6HPRN, [place] as 5) 5-325 mg 52 :52 Starting Medi usman tablet 1 on [facility] Branch tablet 05/23/22 at 1455, Until 05/25/22 at 1454, Routine, Pain (scale 4-6) acetaminoph Yes 650mg 650 mg, Un lee en 05-23 Oral, ity of (TYLENOL) 19:55: Q6HPRN, [place] tablet 650 49 Starting Medic al mg on Nohemy Branch 05/23/22 at 1455, Until Discontinu ed, Routine, Pain (scale 1-3) NaCl 0.9% 2021- No 1000mL at 999 Uni vers (NS) bolus 05-23 08 mL/hr, ity of infusion 18:45: 22:25 1,000 mL, [place] as 1,000 mL 00 :22 IV Medical [...] 1{table QD Eszopiclon 1 MG 1 MG 01-22 t_immed e 1 MG 00:00: iately_ 00 before_ bedtime } Eszopiclone Eszopiclone 0 No 1{table QD Eszopiclon 1 MG 1 MG 4-26 t_immed e 1 MG 00:00: iately_ 00 before_ bedtime } Eszopiclone Eszopiclone 0 No 1{table QD Eszopiclon 1 MG 1 MG 4-26 t_immed e 1 MG 00:00: iately_ 00 before_ bedtime } Zolpidem Zolpidem 0 No QD Zolpidem Tartrate 5 Tartrate 5 4-21 Tartrate 5 MG MG 00:00: [place] 00 HYDROcodone 2021- No [id number] 1{tbl} Take 1 U nivers -acetaminop 09-30-10 tablet by it juliana (NORCO) 00:00: 05:59 [place] 10-325 mg 00 :00 every 8 Medical tablet (eight) Branch hours as needed for Pain (scale 7-10) for up to 7 days. Indication s: acute pain [facility]09 No 40mg Common (Triamcinol (Triamcinol 0-13 S pirit one) one) 00:00: - [facility]I 00 [facility] No 40mg Common (Triamcinol (Triamcinol 0-13 S pirit one) one) 00:00: - CHI 00 [facility] [place] [facility] 2020-09 No 40mg Common (Triamcinol (Triamcinol 0-13 S pirit one) one) 00:00: - [facility]I 00 [facility] [facility] 2020-09 No 40mg Common (Triamcinol (Triamcinol 0-13 S pirit one) one) 00:00: - [facility]I 00 [facility] 2020-09 No 40mg Common (Triamcinol (Triamcinol 0-13 S pirit one) one) 00:00: - [facility]I 00 [facility] 2020-09 No 40mg Common (Triamcinol (Triamcinol 0-13 S pirit one) one) 00:00: - [facility]I 00 [facility] 2020-09 No 40mg Common (Triamcinol (Triamcinol 0-13 S pirit one) one) 00:00: - [facility]I 00 [facility] 2020-09 No 40mg Common (Triamcinol (Triamcinol 0-13 S pirit one) one) 00:00: - [facility]I 00 [facility] 2020-09 No 40mg Common (Triamcinol (Triamcinol 0-13 S pirit one) one) 00:00: - [facility]I 00 [facility] 2020-09 No 40mg Common (Triamcinol (Triamcinol 0-13 S pirit one) one) 00:00: - [facility]I 00 [facility] 2020-09 No 40mg Common (Triamcinol (Triamcinol 0-13 S pirit one) one) 00:00: - [facility]I 00 [facility] 2020-09 No 40mg Common (Triamcinol (Triamcinol 0-13 S pirit one) one) 00:00: - CHI 00 [facility] 2020-09 No 40mg Common (Triamcinol (Triamcinol 0-13 S pirit one) one) 00:00: - CHI 00 [facility] 2020-09 No 40mg Common (Triamcinol (Triamcinol 0-13 S pirit one) one) 00:00: - CHI 00 [facility] Benzonatate Benzonatate 2020-09- No 1{capsu TID Benzonatat 200 MG 200 MG 0-13 10-23 le} e 200 MG 00:00: 00:00 00 :00 Bupivicaine Bupivicaine No 2.5mg Common [place] Spirit 00:00: - CHI 00 [facility] [place] No 40mg Common (Triamcinol (Triamcinol 9-28 S pirit one) one) 00:00: - CHI 00 [facility] Bupivicaine Bupivicaine No 2.5mg Common [place] Spirit 00:00: - CHI 00 [facility] Kenalog Kenalog 2020-0 No 40mg Common (Triamcinol (Triamcinol 9-28 S pirit one) one) 00:00: - CHI 00 [facility] Bupivicaine Bupivicaine 2020-0 No 2.5mg Common [place] Spirit 00:00: - CHI 00 [facility] Kenalog Kenalog 2020-0 No 40mg Common (Triamcinol (Triamcinol 9-28 S pirit one) one) 00:00: - CHI 00 [facility] Bupivicaine Bupivicaine 2020-0 No 2.5mg Common [place] Spirit 00:00: - CHI 00 [facility] Kenalog Kenalog 2020-0 No 40mg Common (Triamcinol (Triamcinol 9-28 S pirit one) one) 00:00: - CHI 00 [facility] Bupivicaine Bupivicaine 2020-0 No 2.5mg Common [place] Spirit 00:00: - CHI 00 [facility] Kenalog Kenalog 2020-0 No 40mg Common (Triamcinol (Triamcinol 9-28 S pirit one) one) 00:00: - CHI 00 [facility] Bupivicaine Bupivicaine 2020-0 No 2.5mg Common [place] Spirit 00:00: - CHI 00 [facility] Kenalog Kenalog 2020-0 No 40mg Common (Triamcinol (Triamcinol 9-28 S pirit one) one) 00:00: - CHI 00 [facility] Bupivicaine Bupivicaine 2020-0 No 2.5mg Common [place] Spirit 00:00: - CHI 00 [facility] Kenalog Kenalog 2020-0 No 40mg Common (Triamcinol (Triamcinol 9-28 S pirit one) one) 00:00: - [facility]I 00 [facility] Bupivicaine Bupivicaine 2020-0 No 2.5mg Common [place] Spirit 00:00: - CHI 00 [facility] Kenalog Kenalog 2020-0 No 40mg Common (Triamcinol (Triamcinol 9-28 S pirit one) one) 00:00: - [facility]I 00 [facility] Bupivicaine Bupivicaine 2020-0 No 2.5mg Common [place] Spirit 00:00: - CHI 00 [facility] Kenalog Kenalog 2020-0 No 40mg Common (Triamcinol (Triamcinol 9-28 S pirit one) one) 00:00: - [facility]I 00 [facility] Bupivicaine Bupivicaine 2020-0 No 2.5mg Common [place] Spirit 00:00: - CHI 00 [facility] Kenalog Kenalog 2020-0 No 40mg Common (Triamcinol (Triamcinol 9-28 S pirit one) one) 00:00: - [facility]I 00 [facility] Bupivicaine Bupivicaine 2020-0 No 2.5mg Common [place] Spirit 00:00: - CHI 00 [facility] Kenalog Kenalog 2020-0 No 40mg Common (Triamcinol (Triamcinol 9-28 S pirit one) one) 00:00: - [facility]I 00 [facility] Bupivicaine Bupivicaine 2020-0 No 2.5mg Common [place] Spirit 00:00: - CHI 00 [facility] Kenalog Kenalog 2020-0 No 40mg Common (Triamcinol (Triamcinol 9-28 S pirit one) one) 00:00: - [facility]I 00 [facility] Bupivicaine Bupivicaine 2020-0 No 2.5mg Common [place] Spirit 00:00: - CHI 00 [facility] Kenalog Kenalog 2020-0 No 40mg Common (Triamcinol (Triamcinol 9-28 S pirit one) one) 00:00: - [facility]I 00 [facility] Bupivicaine Bupivicaine 2020-0 No 2.5mg Common [place] Spirit 00:00: - CHI 00 [facility] Kenal[place] Kenalog 2020-0 No 40mg Common (Triamcinol (Triamcinol 9-28 S pirit one) one) 00:00: - [facility]I 00 [facility] traMADol traMADol 2020-0 2021- No 1{table traMADol HCl 50 MG HCl 50 MG 06-26 t_as_ne HCl 50 MG 00:00: 00:00 eded} 00 :00 Bupivicaine Bupivicaine 2020-0 No 2.5mg Common [place] Spirit 00:00: - CHI 00 [facility] Ken[place] Kenalog 2020-0 No 40mg Common (Triamcinol (Triamcinol 8-24 S pirit one) one) 00:00: - [facility]I 00 [facility] Bupivicaine Bupivicaine 2020-0 No 2.5mg Common [place] Spirit 00:00: - [facility]I 00 [facility] Ken[place] Kenalog 2020-0 No 40mg Common (Triamcinol (Triamcinol 8-24 S pirit one) one) 00:00: - [facility] 00 [facility] Bupivicaine Bupivicaine 2020-0 No 2.5mg Common [place] Spirit 00:00: - [facility]I 00 [facility] Kenalog Kenalog 2020-0 No 40mg Common (Triamcinol (Triamcinol 8-24 S pirit one) one) 00:00: - [facility] 00 [facility] Bupivicaine Bupivicaine 2020-0 No 2.5mg Common [place] Spirit 00:00: - [facility]I 00 [facility] Kenal[place] Kenalog 2020-0 No 40mg Common (Triamcinol (Triamcinol 8-24 S pirit one) one) 00:00: - [facility]I 00 [facility] Bupivicaine Bupivicaine 2020-0 No 2.5mg Common [place] Spirit 00:00: - [facility]I 00 [facility] Kenalog Kenalog 2020-0 No 40mg Common (Triamcinol (Triamcinol 8-24 S pirit one) one) 00:00: - [facility]I 00 [facility] Bupivicaine Bupivicaine 2020-0 No 2.5mg Common [place] Spirit 00:00: - [facility]I 00 [facility] Kenalog Kenalog 2020-0 No 40mg Common (Triamcinol (Triamcinol 8-24 S pirit one) one) 00:00: - [facility]I 00 [facility] Bupivicaine Bupivicaine 1-0 No 2.5mg Common [place] Spirit 00:00: - [facility]I 00 [facility] Kenal[place] Kenalog 2020-0 No 40mg Common (Triamcinol (Triamcinol 8-24 S pirit one) one) 00:00: - [facility]I 00 [facility] Bupivicaine Bupivicaine 2020-0 No 2.5mg Common [place] Spirit 00:00: - CHI 00 [facility] [place] Kenalog 2020-0 No 40mg Common (Triamcinol (Triamcinol 8-24 S pirit one) one) 00:00: - [facility]I 00 [facility] Bupivicaine Bupivicaine 2020-0 No 2.5mg Common [place] Spirit 00:00: - [facility]I 00 [facility] Ken[place] Kenalog 2020-0 No 40mg Common (Triamcinol (Triamcinol 8-24 S pirit one) one) 00:00: - [facility]I 00 [facility] Bupivicaine Bupivicaine 2020-0 No 2.5mg Common [place] Spirit 00:00: - [facility]I 00 [facility] Ken[place] Kenalog 2020-0 No 40mg Common (Triamcinol (Triamcinol 8-24 S pirit one) one) 00:00: - [facility]I 00 [facility] Bupivicaine Bupivicaine 2020-0 No 2.5mg Common [place] Spirit 00:00: - [facility]I 00 [facility] Ken[place] Kenalog 2020-0 No 40mg Common (Triamcinol (Triamcinol 8-24 S pirit one) one) 00:00: - [facility] 00 [facility] Bupivicaine Bupivicaine 1-0 No 2.5mg Common [place] Spirit 00:00: - [facility]I 00 [facility] Kenalog Kenalog 2020-0 No 40mg Common (Triamcinol (Triamcinol 8-24 S pirit one) one) 00:00: - [facility]I 00 [facility] Bupivicaine Bupivicaine 2020-0 No 2.5mg Common [place] Spirit 00:00: - [facility]I 00 [facility] Kenal[place] Kenalog 2020-0 No 40mg Common (Triamcinol (Triamcinol 8-24 S pirit one) one) 00:00: - [facility]I 00 [facility] Bupivicaine Bupivicaine 2020-0 No 2.5mg Common [place] Spirit 00:00: - [facility]I 00 [facility] [place]al[place] Kenalog 2020-0 No 40mg Common (Triamcinol (Triamcinol 8-24 S pirit one) one) 00:00: - [facility] 00 [facility] atorvastati 2018-0 Yes 80mg Take 1 Univ [...] mouth [place] 00 daily. Medical Branch pantoprazol 0 Yes 40mg Take 1 Univ ers e 40 mg EC 5-01 tablet by ity of tablet 00:00: mouth [place] 00 daily. Medical Branch isosorbide 0 Yes 30mg Take 1 Unive rs mononitrate 5-01 tablet by ity of 30 mg 24 hr 00:00: mouth [place] tablet 00 daily. Medical Branch atorvastati 0 Yes 80mg Take 1 Univ ers n 80 mg 5-01 tablet by ity of tablet 00:00: mouth [place] 00 daily. Medical Branch pantoprazol 0 Yes 40mg Take 1 Univ ers e [...] Medical needed for Branch Insomnia. aspirin 81 2018-0 Yes 81mg Take 1 Unive rs mg chewable 4-30 tablet by ity of tablet 00:00: mouth [place] 00 daily. Medical Branch lisinopril 2018-0 Yes 2.5mg Take 1 Univ ers 2.5 mg 4-30 tablet by ity of tablet 00:00: mouth [place] 00 daily. Medical Branch aspirin 81 2018-0 Yes 81mg Take 1 Unive rs mg chewable 4-30 tablet by ity of tablet 00:00: mouth [place] 00 daily. Medical Branch lisinopril 2018-0 Yes 2.5mg Take 1 Univ ers 2.5 mg 4-30 tablet by ity of tablet 00:00: mouth [place] 00 daily. Medical Branch aspirin 81 2018-0 Yes 81mg Take 1 Unive rs mg chewable 4-30 tablet by ity of tablet 00:00: mouth [place] 00 daily. Medical Branch lisinopril 2018-0 Yes 2.5mg Take 1 Univ ers 2.5 mg 4-30 tablet by ity of tablet 00:00: mouth [place] 00 daily. Medical Branch aspirin 81 2018-0 Yes 81mg Take 1 Unive rs mg chewable 4-30 tablet by ity of tablet 00:00: mouth [place] 00 daily. Medical Branch lisinopril 2018-0 Yes 2.5mg Take 1 Univ ers 2.5 mg 4-30 tablet by ity of tablet 00:00: mouth [place] 00 daily. Medical Branch metoprolol 2021- No 50mg Take 1 Univ ers succinate 4-30 - tablet by ity of XL 50 mg 24 00:00[place] 00[place] tablet 00 :00 (two) Medical times Branch daily. zolpidem 5 2021- No 5mg Take 1 Univ ers mg tablet 01-26- tablet by ity of 00:00: 00:00 mouth [...] 200mg Take 1 Unive rs (CLINORIL) 8-15 - tablet by ity of 200 mg 00:00: [...] MG 2.5 MG Iron Iron No Iron Gabapentin Gabapentin No 1{capsu BID Gabapentin 300 MG 300 MG le} 300 MG Vitamin C Vitamin C No Vitamin C Aspirin 81 Aspirin 81 No 1{table QD Aspirin 81 MG MG t} MG EpiPen EpiPen No EpiPen Vitamin D3 Vitamin D3 No 1{table QD Vitamin D3 125 MCG 125 MCG t} 125 MCG (5000 UT) (5000 UT) (5000 UT) Vitamin D3 Vitamin D3 No 1{table QD Vitamin D3 125 MCG 125 MCG t} 125 MCG (5000 UT) (5000 UT) (5000 UT) Gabapentin Gabapentin No 1{capsu BID Gabapentin 300 MG 300 MG le} 300 MG Folic Acid Folic Acid No 1{table QD Folic Acid 1 MG 1 MG t} 1 MG Aspirin 81 Aspirin 81 No 1{table QD Aspirin 81 MG MG t} MG Clopidogrel Clopidogrel No 1{table QD Clopidogre Bisulfate Bisulfate t} l 75 MG 75 MG Bisulfate 75 MG Lisinopril Lisinopril No Lisinopril 2.5 MG 2.5 MG 2.5 MG Metoprolol Metoprolol No 1{table QD Metoprolol Succinate Succinate t} Succinate ER 50 MG ER 50 MG ER 50 MG Magnesium Magnesium No Magnesium Vitamin C Vitamin C No Vitamin C Iron Iron No Iron Vitamin D3 Vitamin D3 No 1{table QD Vitamin D3 125 MCG 125 MCG t} 125 MCG (5000 UT) (5000 UT) (5000 UT) EpiPen EpiPen No EpiPen Vitamin C Vitamin C No Vitamin C Atorvastati Atorvastati No Atorvastat n Calcium n Calcium in Calcium 40 MG 40 MG 40 MG traMADol traMADol No 2{table traMADol HCl 50 MG HCl 50 MG ts} HCl 50 MG EpiPen EpiPen No EpiPen Atorvastati [...] [facility] (Triamcin[facility] (Triamcinolone) 09:32:00 [facility] Bupivicaine [place] Bupivicaine [place] 2021-06-26 Completed [facility] - 09:38:00 [facility] [place] 2021-06-26 Completed [facility] - (Triamcinolone) (Triamcinolone) 09:38:00 [facility] Bupivicaine [place] Bupivicaine [place] 2021-06-26 Completed [facility] - 09:38:00 [facility] [place] 2021-06-26 Completed [facility] - (Triamcinolone) (Triamcinolone) 09:38:00 [facility] Bupivicaine [place] Bupivicaine [place] 2021-06-26 Completed [facility] - 09:38:00 [facility] [place] 2021-06-26 Completed [facility] - (Triamcinolone) (Triamcinolone) 09:38:00 [facility] Bupivicaine [place] Bupivicaine [place] 2021-06-26 Completed [facility] 09:38:00 [facility] [place] 2021-06-26 Completed [facility] - (Triamcinolone) (Triamcinolone) 09:38:00 [facility] Bupivicaine [place] Bupivicaine [place] 2021-05-22 Completed [facility] - 08:55:00 [facility] [place] 2021-05-22 Completed [facility] - (Triamcinolone) (Triamcinolone) 08:55:00 [facility] Bupivicaine [place] Bupivicaine [place] 2021-05-22 Completed [facility] - 08:55:00 [facility] [place] 2021-05-22 Completed [facility] - (Triamcinolone) (Triamcinolone) 08:55:00 [facility] Bupivicaine [place] Bupivicaine [place] 2021-05-22 Completed [facility] - 08:55:00 [facility] [place] 2021-05-22 Completed [facility] - (Triamcinolone) (Triamcinolone) 08:55:00 [facility] Bupivicaine [place] Bupivicaine [place] 2021-05-22 Completed [facility] - 08:55:00 [facility] [place] 2021-05-22 Completed [facility] - (Triamcinolone) (Triamcinolone) 08:55:00 [facility] Pneumococcal 2018-01-26 Completed University o [...] 2018-01-26 Completed University o f Polysaccharide, 00:00:00 [facility] ical PPSV23 (PNEUMOVAX) Branch Pneumococcal 2018-01-26 Completed University o f Polysaccharide, 00:00:00 [facility] ical PPSV23 (PNEUMOVAX) Branch Adacel (Tdap) Adacel (Tdap) 2015-01-11 Completed [facility] - 14:09:00 [facility] Adacel (Tdap) Adacel (Tdap) 2015-01-11 Completed [facility] - 14:09:00 [facility] Adacel (Tdap) Adacel (Tdap) 2015-01-11 Completed [facility] - 14:09:00 [facility] Adacel (Tdap) Adacel (Tdap) 2015-01-11 Completed [facility] - 14:09:00 [facility] Adacel (Tdap) Adacel (Tdap) 2015-01-11 Completed [facility] - 14:09:00 [facility] Adacel (Tdap) Adacel (Tdap) 2015-01-11 Completed [facility] - 14:09:00 [facility] Adacel (Tdap) Adacel (Tdap) 2015-01-11 Completed [facility] - 14:09:00 [facility] Adacel (Tdap) Adacel (Tdap) 2015-01-11 Completed [facility] - 14:09:00 [facility] Adacel (Tdap) Adacel (Tdap) 2015-01-11 Completed [facility] - 14:09:00 [facility] Adacel (Tdap) Adacel (Tdap) 2015-01-11 Completed [facility] - 14:09:00 [facility] Adacel (Tdap) Adacel (Tdap) 2015-01-11 Completed [facility] - 14:09:00 [facility] Adacel (Tdap) Adacel (Tdap) 2015-01-11 Completed [facility] - 14:09:00 [facility] Adacel (Tdap) Adacel (Tdap) 2015-01-11 Completed [facility] - 14:09:00 [facility] Adacel (Tdap) Adacel (Tdap) 2015-01-11 Completed [facility] - 14:09:00 [facility] Adacel (Tdap) Adacel (Tdap) 2015-01-11 Completed [facility] - 14:09:00 [facility] Adacel (Tdap) Adacel (Tdap) 2015-01-11 Completed [facility] - 14:09:00 [facility] Adacel (Tdap) Adacel (Tdap) 2015-01-11 Completed [facility] - 14:09:00 [facility] Adacel (Tdap) Adacel (Tdap) 2015-01-11 Completed [facility] - 14:09:00 [facility] Adacel (Tdap) Adacel (Tdap) 2015-01-11 Completed [facility] - 14:09:00 [facility] Adacel (Tdap) Adacel (Tdap) 2015-01-11 Completed [facility] - 14:09:00 [facility] Adacel (Tdap) Adacel (Tdap) 2015-01-11 Completed [facility] - 14:09:00 [facility] Adacel (Tdap) Adacel (Tdap) 2015-01-11 Completed [facility] - 14:09:00 [facility] Adacel (Tdap) Adacel (Tdap) 2015-01-11 Completed [facility] - 14:09:00 [facility] Adacel (Tdap) Adacel (Tdap) 2015-01-11 Completed [facility] - 14:09:00 [facility] Vital Signs Vital Name Observation Time Observation Value Comments Source Systolic blood 2022-10-20 12:25:00 125 mm[Hg] Univer sity of pressure [facility] Diastolic blood 2022-10-20 12:25:00 76 mm[Hg] Unive rsity of pressure [facility] Heart rate 2022-10-20 12:25:00 52 /min [facility] Respiratory rate 2022-10-20 12:25:00 14 /min [facility] O[facility] saturation in 2022-10-20 12:25:00 93 /min University of Arterial blood by [facility] Pulse oximetry Branch Body temperature 2022-10-20 10:46:00 37.39 Shameka [facility] ersity of [facility] Body height 2022-10-20 10:46:00 167.6 cm Universi ty of [facility] Body weight 2022-10-20 10:46:00 85.7 kg Universi ty of [facility] BMI 2022-10-20 10:46:00 30.49 kg/m2 Universi ty of [facility] Systolic blood 2022-08-30 20:50:00 92 mm[Hg] Univer sity of pressure [facility] Diastolic blood 2022-08-30 20:50:00 64 mm[Hg] Unive rsity of [facility] Heart rate 2022-08-30 20:50:00 53 /min Universi ty of [facility] Respiratory rate 2022-08-30 20:50:00 20 /min [facility] O[facility] saturation in 2022-08-30 20:50:00 94 /min University of Arterial blood by [facility] Pulse oximetry Branch Body temperature 2022-08-30 13:47:00 35.67 Shameka [facility] ersity of [facility] Body height 2022-08-30 13:47:00 175.3 cm Universi ty of [facility] Body weight 2022-08-30 13:47:00 92.987 kg Universi ty of [facility] BMI 2022-08-30 13:47:00 30.27 kg/m2 Universi ty of [facility] oximetry 2022-07-31 14:40:00 97 % [facility] respiratory rate 2022-07-31 14:40:00 17 /min [facility] on [facility] - [facility] blood pressure 2022-07-31 14:40:00 135 mm[Hg] [facility] - systolic [facility] blood pressure 2022-07-31 14:40:00 72 mm[Hg] [facility] - diastolic [facility] height 2022-07-31 14:40:00 66 [in_i] [facility] weight 2022-07-31 14:40:00 201.0 [lb_av] [facility] temperature 2022-07-31 14:40:00 98.2 [degF] Common [facility] bmi 2022-07-31 14:40:00 32.44 kg/m2 Common [facility] Systolic blood 2022-05-24 20:23:00 112 mm[Hg] Univer sity of pressure [facility] Diastolic blood 2022-05-24 20:23:00 65 mm[Hg] Unive rsity of pressure [facility] Heart rate 2022-05-24 20:23:00 68 /min Universi ty [facility] Body temperature 2022-05-24 20:23:00 35.83 Shameka Univ ersity [facility] Respiratory rate 2022-05-24 20:23:00 18 /min [facility] O[facility] saturation in 2022-05-24 20:23:00 96 /min [facility] Arterial blood by [facility] Pulse oximetry Branch Body height 2022-05-23 19:38:00 175.3 cm Universi ty [facility] Body weight 2022-05-23 19:38:00 92.987 kg Universi ty [facility] BMI 2022-05-23 19:38:00 30.27 kg/m2 Universi ty [facility] height 2022-04-18 10:00:00 66 [in_i] Common [facility] weight 2022-04-18 10:00:00 209.0 [lb_av] Common [facility] temperature 2022-04-18 10:00:00 98.1 [degF] Common S [facility] bmi 2022-04-18 10:00:00 33.73 kg/m2 [facility] oximetry 2022-04-18 10:00:00 95 % Common S [facility] respiratory rate 2022-04-18 10:00:00 16 /min Comm on [facility] blood pressure 2022-04-18 10:00:00 132 mm[Hg] Common [facility] - systolic [facility] blood pressure 2022-04-18 10:00:00 73 mm[Hg] [facility] - diastolic [facility] height 2022-04-04 11:10:00 66 [in_i] [facility] weight 2022-04-04 11:10:00 197 [lb_av] Common [facility]irit [facility] temperature 2022-04-04 11:10:00 98 [degF] [facility] - [facility] bmi 2022-04-04 11:10:00 31.79 kg/m2 [facility] blood pressure 2022-04-04 11:10:00 125 mm[Hg] [facility] - systolic [facility] blood pressure 2022-04-04 11:10:00 65 mm[Hg] [facility] - diastolic [facility] height 2022-02-14 08:20:00 66 [in_i] [facility] weight 2022-02-14 08:20:00 197.3 [lb_av] [facility] temperature 2022-02-14 08:20:00 97.3 [degF] Common S pirit [facility] bmi 2022-02-14 08:20:00 31.84 kg/m2 [facility] S pirit [facility] oximetry 2022-02-14 08:20:00 96 % [facility] S pirit [facility] respiratory rate 2022-02-14 08:20:00 16 /min Comm on [facility] blood pressure 2022-02-14 08:20:00 114 mm[Hg] [facility] - systolic [facility] blood pressure 2022-02-14 08:20:00 62 mm[Hg] [facility] - diastolic [facility] height 2022-01-17 08:10:00 66 [in_i] Common S pirit [facility] weight 2022-01-17 08:10:00 195.6 [lb_av] [facility] temperature 2022-01-17 08:10:00 98.3 [degF] Common S pirit [facility] bmi 2022-01-17 08:10:00 31.57 kg/m2 Common [facility] oximetry 2022-01-17 08:10:00 98 % Common [facility] respiratory rate 2022-01-17 08:10:00 17 /min Comm on [facility] blood pressure 2022-01-17 08:10:00 133 mm[Hg] Common [facility] - systolic [facility] blood pressure 2022-01-17 08:10:00 72 mm[Hg] Common [facility] diastolic [facility] height 2021-10-16 08:20:00 66 [in_i] Common [facility] weight 2021-10-16 08:20:00 194.9 [lb_av] [facility] temperature 2021-10-16 08:20:00 98.2 [degF] Common [facility] bmi 2021-10-16 08:20:00 31.45 kg/m2 [facility] oximetry 2021-10-16 08:20:00 97 % [facility] respiratory rate 2021-10-16 08:20:00 17 /min Comm on [facility] height 2021-10-16 08:20:00 66 [in_i] [facility] weight 2021-10-16 08:20:00 194.9 [lb_av] [facility] temperature 2021-10-16 08:20:00 98.2 [degF] Common [facility] bmi 2021-10-16 08:20:00 31.45 kg/m2 [facility] oximetry 2021-10-16 08:20:00 97 % [facility] respiratory rate 2021-10-16 08:20:00 17 /min Comm on [facility] blood pressure 2021-10-16 08:20:00 132 mm[Hg] Common [facility] systolic [facility] blood pressure 2021-10-16 08:20:00 77 mm[Hg] Common [facility] - diastolic [facility] height 2021-10-08 13:10:00 66 [in_i] [facility] weight 2021-10-08 13:10:00 195.3 [lb_av] [facility] temperature 2021-10-08 13:10:00 98.1 [degF] [facility] bmi 2021-10-08 13:10:00 31.52 kg/m2 [facility] oximetry 2021-10-08 13:10:00 97 % [facility] respiratory rate 2021-10-08 13:10:00 17 /min Comm on [facility] blood pressure 2021-10-08 13:10:00 132 mm[Hg] [facility] systolic [facility] blood pressure 2021-10-08 13:10:00 73 mm[Hg] [facility] diastolic [facility] Procedures Procedure Date / Time Performing Clinician Source Performed URINALYSIS 2022-10-20 11:29:00 [facility] URINE DRUG (IMMUNOASSAY) 2022-10-20 11:29:00 Christen Obando [facility] DRUG [facility] SCREEN W/O REFLEX XR CHEST 1 VW 2022-10-20 11:07:00 Singer [facility] COMP. METABOLIC PANEL 2022-10-20 11:04:00 Christen Obando [facility] ([id number]) [facility] SALICYLATE 2022-10-20 11:04:00 Singer [facility] ETHANOL 2022-10-20 11:04:00 Singer [facility] CBC WITH DIFF 2022-10-20 11:04:00 [facility] BASIC METABOLIC PANEL 2022-08-30 17:22:00 Gertrude Chinchilla [facility] (NA, K, CL, CO2, GLUCOSE, Medica l Branch BUN, CREATININE, CA) URINALYSIS 2022-08-30 14:21:00 Gertrude Chinchilla [facility] URINE DRUG (IMMUNOASSAY) 2022-08-30 14:21:00 Gertrude Chinchilla [facility] SCREEN W/O REFLEX XR CHEST 1 VW 2022-08-30 14:04:16 Gertrude Chinchilla [facility] MAGNESIUM 2022-08-30 14:03:00 Gertrude Chinchilla [facility] TROPONIN I 2022-08-30 14:03:00 Gertrude Chinchilla [facility] COMP. METABOLIC PANEL 2022-08-30 14:03:00 Gertrude Chinchilla [facility] ([id number]) [facility] ETHANOL 2022-08-30 14:03:00 Gertrude Chinchilla [facility] CBC WITH DIFF 2022-08-30 14:03:00 Gertrude Chinchilla [facility] XR CHEST 1 VW 2022-05-24 11:38:14 Alisa [facility] MAGNESIUM 2022-05-24 08:56:00 Alisa [facility] TROPONIN I 2022-05-24 08:56[facility] 2022-05-24 08:56:00 Callie Cuellar [facility] (NA, K, CL, CO2, GLUCOSE, Medica l Branch BUN, CREATININE, CA) CBC WITH DIFF 2022-05-24 08:56:00 Alisa [facility] TROPONIN I 2022-05-24 03:51:[address] [facility] XR KUB 2022-05-23 22:25:[address] [facility] URINALYSIS 2022-05-23 22:15:00 Gertrude Chinchilla [facility] CREATININE, URINE RANDOM 2022-05-23 22:15:00 Callie Cuellar [facility] SODIUM, URINE RANDOM 2022-05-23 22:15:00 Callie [facility] URINE DRUG (IMMUNOASSAY) 2022-05-23 22:15:00 Gertrude Chinchilla [facility] SCREEN W/O REFLEX TRANSTHORACIC ECHO (TTE) 2022-05-23 20:33:00 Callie Cuellar [facility] COMPLETE Medical Branch COVID-19 (ID NOW RAPID 2022-05-23 16:39:00 Gertrude Chinchilla [facility] TESTING) Medical Branch LAB ONLY COVID 2022-05-23 16:39:00 Gertrude Chinchilla [facility] INTERPRETATION [facility] Branch TROPONIN I 2022-05-23 13:42:00 Gertrude Chinchilla [facility] COMP. METABOLIC PANEL 2022-05-23 13:42:00 Gertrude Chinchilla [facility] ([id number]) Medical Branch CBC WITH DIFF 2022-05-23 13:42:00 Gertrude Chinchilla [facility] HB ECG ROUTINE & RHYTHM 2022-05-23 13:12:28 [facility] 2022-05-23 12:44:00 Gertrude Chinchilla [facility] AUTHORIZATION FOR RELEASE 2021-11-12 06:01:00 Doctor Unassigned, [facility] Encounters Start End Encounter Admission Attending Care Care Encounter Source Date/Time Date/Time Type Type Clinicians Facility Department ID 2022-11-14 Outpatient Ross, STLMLC STLMLC [id number] Common 12:02:00 [facility] [address] [facility] 2022-11-12 Outpatient Ross, STLMLC STLMLC [id number] Common 10:39:01 [facility] [address] [facility] 2022-10-07 Outpatient Ross, STLMLC STLMLC [id number] Common 09:37:01 Carola [address] [facility] 2022-10-04 Outpatient Ross, STLMLC STLMLC [id number] Common 16:32:01 [place] [address] [facility] 2022-08-16 Outpatient Ross, STLMLC STLMLC [id number] Common 15:23:00 [facility] [address] [facility] 2022-07-31 Outpatient Ross, STLMLC STLMLC [id number] Common 14:32:00 Carola [facility] 2022-07-29 Outpatient Ross, STLMLC STLMLC [id number] Common 16:01:01 Carola [facility] 2022-07-19 Outpatient Ross, STLMLC STLMLC [id number] Common 16:30:01 Carola [facility] 2022-07-16 Outpatient Ross, STLMLC STLMLC [id number] Common 10:11:00 Carola [facility] 2022-06-25 Outpatient Ross, STLMLC STLMLC [id number] Common 14:39:00 Carola [facility] 2022-05-16 Outpatient Ross, STLMLC STLMLC [id number] Common 12:11:01 Carola [facility] 2021-10-24 Outpatient Ross, STLMLC STLMLC [id number] Common 13:24:10 [place] [address] [facility] 2021-10-24 Outpatient Ross, STLMLC STLMLC [id number] Common 13:06:32 [place] [address] [facility] 2021-10-24 Outpatient Ross, STLMLC STLMLC [id number] Common 12:40:59 [place] [address] [facility] 2021-10-24 Outpatient Ross, STLMLC STLMLC [id number] Common 12:30:18 [place] [address] [facility] 2021-10-24 Outpatient Ross, STLMLC STLMLC [id number] Common 12:29:04 [place] [address] [facility] 2021-10-24 Outpatient Ross, STLMLC STLMLC [id number] Common 11:52:46 [place] [address] [facility] 2021-10-24 Outpatient Ross, STLMLC STLMLC [id number] Common 11:44:17 Carola [address] [facility] 2021-10-24 Outpatient Ross, STLMLC STLMLC [id number] Common 11:37:11 [facility] [address] [facility] 2021-07-28 Emergency [facility] [id number] Univers 05:50:12 ity [facility] 2022-11-05 2022-11-05 (TEL) STLC STLC [id number] Co mmon 00:00:00 00:00:00 [facility] 2022-10-30 2022-10-30 Outpatient SFA SFA [id number] Tim 17:27:51 17:27:51 0201 F Fausto 2022-10-25 2022-10-25 CAV Gloria [id number]. CLAC XKURRY [facility] 16:30:00 17:30:00 Jose [id number] Medical [id number] 2022-10-24 2022-10-24 ([facility]EL[id number] Co mmon 00:00:00 00:00:00 [facility] 2022-10-22 2022-10-22 Care Corinna Poll [id number]. C [id number] [facility] 16:00:00 16:30:00 [employer] [id number] Medical [id number] 2022-10-20 2022-10-20 Emergency X [facility] ERT [id number] Univers 04:41:00 06:40:00 CHRISTEN tony [facility] 2022-10-20 2022-10-20 Emergency [facility] [id number] Univers 04:41:00 06:40:00 Christne LUJAN [id number] i ty [facility] [id number] [facility] [id number] [place] [address] Branch 2022-10-16 2022-10-16 (TEL) [facility] STLC [id number] Co mmon 00:00:00 00:00:00 [facility] 2022-10-03 2022-10-03 Outpatient [facility] [id number] Tim 15:56:50 15:56:50 0105 F Fausto 2022-10-03 2022-10-03 (TEL) STLMLC STLMLC [id number] Co mmon 00:00:00 00:00:00 [facility] 2022-09-04 2022-09-04 Outpatient [facility] [id number] Tim 08:12:48 08:12:48 1207 F Fausto 2022-09-03 2022-09-03 Outpatient [facility] [id number] Tim 14:40:55 14:40:55 1206 F Fausto 2022-08-30 2022-08-30 Emergency X [facility] E[facility] [id number] Univers 07:45:00 15:39:00 GERTRUDE tony [facility] 2022-08-30 2022-08-30 Emergency Renée [facility] [id number] Univers 07:45:00 15:39:00 [id number] [facility] [id number] [address] 2022-08-12 2022-08-12 Outpatient [place] [facility] 512 Devoted 00:00:00 00:00:00 _B 1114 Medica l Group 2022-08-12 2022-08-12 Outpatient [place] [facility] 512 Devoted 00:00:00 00:00:00 _B 0127 Medica l Group 2022-07-31 2022-07-31 OFFICE STLC STLC [id number] Co mmon 00:00:00 00:00:00 VISIT Spirit [facility] - [facility] L[facility] 2022-06-21 2022-06-21 [facility] [id number] [facility] 00:00:00 00:00:00 0923 Medica l Group 2022-06-20 2022-06-20 Outpatient [facility] [facility] [id number] Devoted 00:00:00 00:00:00 0922 Medica l Group 2022-06-06 2022-06-06 (TEL) STLMLC STLC [id number] Co mmon 00:00:00 00:00:00 [facility] 2022-05-27 2022-05-27 Transition SIOBHAN Rollins 1.2.840.114 [id number] Univers 00:00:00 00:00:00 of Care Simón Gonzalez [facility] [id number] [facility] 4[facility]2.7.2.686 [facility] [phone] [facility] [address] 2022-05-23 2022-05-24 Outpatient X ALISA [facility] [id number] Univers 07:39:00 17:43:00 CALLIE tony [facility] 2022-05-23 2022-05-24 Emergency Gertrude Chinchilla [facility] 1.2.8 40.114 [id number] Univers 07:39:00 17:43:00 Callie Cuellar [id number] ity [facility] 4.2.7.2.686 [facility] [id number] [facility] [address] 2022-05-09 2022-05-09 Outpatient Cobb_T [facility] [id number] Devoted 00:00:00 00:00:00 0811 Medica l Group 2022-04-18 2022-04-18 OFFICE STLC STLC [id number] Co mmon 00:00:00 00:00:00 VISIT [facility] 2022-04-18 2022-04-18 (TEL) STLMLC STLC [id number] Co mmon 00:00:00 00:00:00 [facility] 2022-04-12 2022-04-12 Outpatient Deshazo_T [facility] [id number] -2021 Devoted 03:30:00 03:30:00 0715 Medica l Group 2022-04-10 2022-04-10 [facility] [address] -2021 Devoted 04:58:00 04:58:00 0713 Medica l Group 2022-04-04 2022-04-04 (TEL) STLMLC STLMLC [id number] Co mmon 00:00:00 00:00:00 [facility] 2022-04-04 2022-04-04 (EST. STLMLC STLMLC [id number] Co mmon 00:00:00 00:00:00 VIDEO) EST Spi rit VIRTUAL - [facility] VIDEO [facility] 2022-03-26 2022-03-26 (TEL) STLMLC STLMLC [id number] Co mmon 00:00:00 00:00:00 [facility] 2022-02-14 2022-02-14 OFFICE STLMLC STLMLC [id number] Co mmon 00:00:00 00:00:00 VISIT Spirit ESTAB PT - [facility] 2022-01-22 2022-01-22 (TEL) STLMLC STLMLC [id number] Co mmon 00:00:00 00:00:00 [facility] 2022-01-17 2022-01-17 OFFICE STLMLC STLMLC [id number] Co mmon 00:00:00 00:00:00 VISIT Spirit ESTAB PT - [facility] 2021-11-12 2021-11-12 Orders Doctor NIR 1.2.840.114 [id number] Univers 00:00:00 00:00:00 Only Unassigned, SHAI [id number] [place] [facility] 4.2.7.2.686 Lauri as [phone] [address] 2021-10-16 2021-10-16 SUB ANNUAL STLMLC STLMLC [id number] Common 00:00:00 00:00:00 MCR [facility] WE[facility] - [facility] 2021-10-16 2021-10-16 OFFICE STLMLC STLMLC [id number] Co mmon 00:00:00 00:00:00 VISIT Spirit ESTAB PT - [facility] 2021-10-09 2021-10-09 Outpatient NEELA FANG [facility] [id number] Univers 14:20:00 14:20:00 NEELA ALBARADO ity [facility] 2021-10-09 2021-10-09 (TEL) STLC STLC [id number] Co mmon 00:00:00 00:00:00 [facility] 2021-10-08 2021-10-08 (HOSP F/U) STLMLC STLMLC [id number] Common 00:00:00 00:00:00 [facility] 2021-10-05 2021-10-05 (TEL) STLMLC STLC [id number] Co mmon 00:00:00 00:00:00 [facility] 2021-10-02 2021-10-02 Transition SIOBHAN Rollins 1.2.840.114 [id number] Univers 00:00:00 00:00:00 of Care Simón PEREA [id number] ity of [place] 4.2.7.2.686 [facility] [id number] [facility] [address] 2021-10-01 2021-10-01 (TEL) [facility] STLC [id number] Co mmon 00:00:00 00:00:00 [facility] 2021-09-27 2021-09-30 Outpatient X GELY, [facility] [id number] Univers 17:38:00 15:22[facility] 2021-09-27 2021-09-30 Outpatient X GELY, [facility] [id number] Univers 17:38:00 15:22:[facility] 2021-09-27 2021-09-30 Emergency Silva Szymanski [facility] 1.2.840 .114 [id number] Univers 17:38:00 15:22:00 Vikash Grimaldo 350.1.13.10 ity of [place] 4.2.7.2.686 [facility] [id number] [facility] [address] 2021-09-19 2021-09-19 Outpatient OWENS_T DMG DMG [id number] 021 Devoted 01:00:00 01:00:00 1222 Medica l Group 2021-09-05 2021-09-05 CAV Tomora 2.16.840. 2.16.840.1. BRIAC XU3YAG Devoted 14:30:00 15:30:00 Ruiz [id number]. 495941.4.6. [facility] [id number] [id number] 2021-08-10 2021-08-10 Outpatient OWENS_T DM[facility] [id number] 021 Devoted 10:31:00 10:31:00 1112 Medica l Group 2021-08-07 2021-08-07 Outpatient CURRY_S [facility] [id number] 021 Devoted 02:14:00 02:14:00 1109 Medica l Group 2021-07-17 2021-07-17 (TEL) STLMLC STLMLC [id number] Co mmon 00:00:00 00:00:00 [facility] 2021-07-10 2021-07-10 (TEL) STLMLC STLMLC [id number] Co mmon 00:00:00 00:00:00 [facility] 2021-07-04 2021-07-04 (TEL) STLMLC STLMLC [id number] Co mmon 00:00:00 00:00:00 [facility] 2021-06-26 2021-06-26 (TEL) STLMLC STLMLC [id number] Co mmon 00:00:00 00:00:00 [facility] 2021-05-29 2021-05-29 Outpatient STLMLC STLMLC [id number] Common 00:00:00 00:00:00 [facility] 2021-05-22 2021-05-22 Outpatient CURRY_S DMG G [id number] 021 Devoted 05:13:00 05:13:00 0824 Medica l Group 2021-05-22 2021-05-22 Outpatient STLMLC STLMLC [id number] Common 00:00:00 00:00:00 [facility] 2021-05-04 2021-05-04 Outpatient STLMLC STLMLC [id number] Common 00:00:00 00:00:00 [facility] 2021-04-30 2021-04-30 Outpatient STLMLC STLMLC [id number] Common 00:00:00 00:00:00 [facility] 2021-04-30 2021-04-30 Outpatient STLMLC STLMLC [id number] Common 00:00:00 00:00:00 [facility] 2021-04-06 2021-04-06 Outpatient STLMLC STLMLC [id number] Common 00:00:00 00:00:00 [facility] 2021-01-29 2021-01-29 Outpatient DMG [facility] [id number] 021 Devoted 06:02:00 06:02:00 0503 Medica l Group 2021-01-18 2021-01-18 [facility] [id number] Devoted 12:00:00 12:00:00 0422 Medica l Group 2020-08-14 2020-08-14 Emergency [facility] 1.2.840.114 [id number] 14:12:00 15:54:00 [facility] Mayuri Byers 350.1.13.10 [place] 4.2.7.2.686 [place] [id number] 084 2020-08-14 2020-08-14 Emergency [facility] 1.2.840.114 [id number] Univers 14:12:00 15:54:00 [facility]uri Byers 350.1.13.10 ity of [place] 4.2.7.2.686 [facility] [phone] [place] [id number] Branch Results Test Description Test Time Test Comments Results Result Comments Source CBC WITH DIFF 2022-10-20 11:42:32 Test Item Value Reference Range Interpretation Comme nts WBC (test code = 6690-2) See_Comment [A utomated message] The system which ge nerated this result transmit rajesh reference range: 4.20 - 1 0.70 10*3/?L. The reference r cuong was not used to interpr et this result as normal/abnor mal. RBC (test code = 789-8) See_Comment [Au tomated message] The system which ge nerated this result transmit rajesh reference range: 4.26 - 5 .52 10*6/?L. The reference r cuong was not used to interpr et this result as normal/abnor mal. HGB (test code = 718-7) 13.7 g/dL 12.2-16.4 HCT (test code = 4544-3) 40.6 % 38.4-49.3 MCV (test code = 787-2) 90.0 fL 81.7-95.6 MCH (test code = 785-6) 30.4 pg 26.1-32.7 MCHC (test code = 786-4) 33.7 g/dL 31.2-35.0 RDW-SD (test code = 18729-1) 45.5 fL 38.5-51.6 RDW-CV (test code = 788-0) 13.8 % 12.1-15.4 PLT (test code = 777-3) See_Comment [Au tomated message] The system which ge nerated this result transmit rajesh reference range: 150 - 32 8 10*3/?L. The reference range was not used to interpret th is result as normal/abnormal . MPV (test code = 54564-3) 8.7 fL 9.8-13.0 L NRBC/100 WBC (test code = See_Comment [ Automated message] The 0331448487) system which [employer] nerated this result transmit rajesh reference range: 0.0 - 10 .0 /100 WBCs. The reference r cuong was not used to interpr et this result as normal/abnor mal. NRBC x10^3 (test code = See_Comment [Au tomated message] The 4146371288) system which [employer] nerated this result transmit rajesh reference range: 10*3/?L. The reference range was not u sed to interpret this result as normal/abnormal . GRAN MAT (NEUT) % (test code 92.6 % = 770-8) IMM GRAN % (test code = 0.90 % 7804523797) LYMPH % (test code = 736-9) 5.3 % MONO % (test code = 5905-5) 0.6 % EOS % (test code = 713-8) 0.3 % BASO % (test code = 706-2) 0.3 % GRAN MAT x10^3(ANC) (test 9.61 10*3/uL 1.99-6.95 H code = 3770616957) IMM GRAN x10^3 (test code = 0.09 10*3/uL 0.00-0.06 H 4590305078) LYMPH x10^3 (test code = 0.55 10*3/uL 1.09-3.23 L 731-0) MONO x10^3 (test code = 0.06 10*3/uL 0.36-1.02 L 742-7) EOS x10^3 (test code = 0.03 10*3/uL 0.06-0.53 L 711-2) BASO x10^3 (test code = 0.03 10*3/uL 0.01-0.09 704-7) Lab Interpretation (test Abnormal code = 33142-1) [facility] 11:31:09 SALICYLATE<10mg/L10/20/2022 5:31 AM [facility]ORYTherapeutic Range: ? Analgesic and Antipyretic Use ? 20- 100 mg/L ? ? Anti-Inflammatory Use ? 100-250 mg/L Toxic Range: ? Greater than 300 mg/LUnCHRIST[facility]viewETHANOL2023-01-22 11:31:04ALCOHOL<10mg/dL10/20/2022 5:31 AM [facility]<10 Rzxlbonx69-810 Toxic>100 Depression of LEAD MASSAGE THERAPIST>400 Fatalities ReportedUnCHRISTUS [facility] – LongviewACETAMINOPHEN 2022-10-20 11:30:59 Test Item Value Reference Range Interpretation Comments ACETAMINOP (test code = 10.0-30.0 L 7919733036) ISIDORO (test code = ISIDORO) Toxic: Greater than 200 ug/mL @ 4 hour post ingestion or greater than 50 ug/mL @ 12 hour post ingestion Lab Interpretation (test Abnormal code = 47732-5) [facility] HospitalCOMP. METABOLIC PANEL ([id number])2022-10-20 11:26:11 Test Item Value Reference Range Interpretation Comments NA (test code = 135 mmol/L 135-145 9705219065) K (test code = 5.9 mmol/L 3.5-5.0 H 9800906443) CL (test code = 105 mmol/L 98-108 8009658153) CO2 TOTAL (test code = 21 mmol/L 23-31 L 0258751326) AGAP (test code = 2-16 4091613776) BUN (test code = 25 mg/dL 7-23 H 2975885478) GLUCOSE (test code = 127 mg/dL 70-110 H 3712934949) CREATININE (test code = 1.66 mg/dL 0.60-1.25 H 8546357082) TOTAL BILI (test code = 1.0 mg/dL 0.1-1.2 4868087197) CALCIUM (test code = 8.9 mg/dL 8.6-10.6 9846169559) T PROTEIN (test code = 7.9 g/dL 6.3-8.2 0337429697) ALBUMIN (test code = 4.6 g/dL 3.5-5.0 9215926124) ALK PHOS (test code = 134 U/L 34-122 H 7501308754) ALTv (test code = 30 U/L 5-50 1742-6) AST(SGOT) (test code = 45 U/L 13-40 H 0900219719) eGFR (test code = mL/min/1.73m2 6569918105) ISIDORO (test code = ISIDORO) Association of [...] tests). Lab Interpretation Abnormal (test code = 39514-8) [facility] METABOLIC PANEL (NA, K, CL, CO2, GLUCOSE, BUN, CREATININE, CA)2022-08-30 18:07:32 Test Item Value Reference Range Interpretation Comments NA (test code = 143 mmol/L 135-145 0442457726) K (test code = 4.1 mmol/L 3.5-5.0 4411034495) CL (test code = 115 mmol/L 98-108 H 3268367216) CO2 TOTAL (test code = 19 mmol/L 23-31 L 0259764419) AGAP (test code = 2-16 6329188791) BUN (test code = 33 mg/dL 7-23 H 6197646420) GLUCOSE (test code = 66 mg/dL 70-110 L 4321495731) CREATININE (test code = 1.99 mg/dL 0.60-1.25 H 2466422627) CALCIUM (test code = 8.3 mg/dL 8.6-10.6 L 1174173858) eGFR (test code = mL/min/1.73m2 4640952786) ISIDORO (test code = ISIDORO) Association of [...] tests). Lab Interpretation Abnormal (test code = 86404-2) [facility] HospitalTROPONIN [id number] 15:44:49 Test Item Value Reference Interpretation Comments Range TROPONIN I (test 0.004 ng/mL See_Comment [Automated code = 5729255887) message] The system which generated this result [...] biotin. Lab Interpretation Normal (test code = 01257-7) [facility] HospitalETHANOL2022-12-02 15:27:10 ALCOHOL<10mg/dL08/30/2022 9:27 [facility]<10 Npasdfmt12-937 Toxic>100 Depression of LEAD MASSAGE THERAPIST>400 Fatalities ReportedUnCHRISTUS [facility] – LongviewCOM. METABOLIC PANEL (70032) 2022-08-30 15:24:23 Test Item Value Reference Range Interpretation Comments NA (test code = 144 mmol/L 135-145 4525270318) K (test code = 3.9 mmol/L 3.5-5.0 7525756674) CL (test code = 109 mmol/L 98-108 H 9460300054) CO2 TOTAL (test code = 22 mmol/L 23-31 L 0675763486) AGAP (test code = 2-16 9283759751) BUN (test code = 37 mg/dL 7-23 H 5793863250) GLUCOSE (test code = 86 mg/dL 70-110 6674699241) CREATININE (test code = 2.47 mg/dL 0.60-1.25 H 4876027870) TOTAL BILI (test code = 0.8 mg/dL 0.1-1.5 4168359820) CALCIUM (test code = 9.3 mg/dL 8.6-10.6 4902981602) T PROTEIN (test code = 7.0 g/dL 6.3-8.2 2648594865) ALBUMIN (test code = 4.4 g/dL 3.5-5.0 5649164181) ALK PHOS (test code = 119 U/L 34-122 5443313053) ALTv (test code = 22 U/L 5-50 1742-6) AST(SGOT) (test code = 38 U/L 13-40 8745473751) eGFR (test code = mL/min/1.73m2 5783720443) ISIDORO (test code = ISIDORO) Association of [...] tests). Lab Interpretation Abnormal (test code = 25101-3) [facility] HospitalMAGNESIUM2022-12-02 15:24:23 Test Item Value Reference Range Interpretation Comments MAGNESIUM (test code = 3266044950) 2.1 mg/dL 1.7-2.4 Lab Interpretation (test code = Normal 91407-3) [facility] WITH [id number] 14:36:33 Test Item Value Reference Range Interpretation Comments WBC (test code = See_Comment [Automated 3290-2) message] The sy stem which generated this result transmitted reference range : 4.20 - 10.70 10*3/?L. The reference range was not used to interpret this result as normal/abnormal . RBC (test code = See_Comment [Automated 579-8) message] The sy stem which generated this [...] RDW-SD (test code = 44.7 fL 38.5-51.6 81979-5) RDW-CV (test code = 13.2 % 12.1-15.4 788-0) PLT (test code = See_Comment [Automated 777-3) message] The sy stem which generated this result transmitted reference range : 150 - 328 10*3/ ?L. The reference r cuong was not used to interpret this result as normal/abnormal . MPV (test code = 9.7 fL 9.8-13.0 L 44306-9) NRBC/100 WBC (test See_Comment [Automat ed code = 5183694429) message] The system which generated this result transmitted reference range : 0.0 - 10.0 /100 WBCs. The refer ence range was not u sed to interpret th is result as normal/abnormal . NRBC x10^3 (test code See_Comment [Auto mated = 3760190299) message] The s ystem which generated this result transmitted reference range : 10*3/?L. The reference range was not used to interpret this result as normal/abnormal . GRAN MAT (NEUT) % 62.1 % (test code = 770-8) IMM GRAN % (test code 0.50 % = 1479729968) LYMPH % (test code = 22.6 % 736-9) MONO % (test code = 9.1 % 5905-5) EOS % (test code = 5.2 % 713-8) BASO % (test code = 0.5 % 706-2) GRAN MAT x10^3(ANC) 5.38 10*3/uL 1.99-6.95 (test code = 0734887896) IMM GRAN x10^3 (test 0.04 10*3/uL 0.00-0.06 code = 8608329036) LYMPH x10^3 (test code 1.96 10*3/uL 1.09-3.23 = 731-0) MONO x10^3 (test code 0.79 10*3/uL 0.36-1.02 = 742-7) EOS x10^3 (test code = 0.45 10*3/uL 0.06-0.53 711-2) BASO x10^3 (test code 0.04 10*3/uL 0.01-0.09 = 704-7) Lab Interpretation Abnormal (test code = 26129-1) [facility] HospitalTroponin [id number] 10:17:19 Test Item Value Reference Interpretation Comments Range TROPONIN I (test 0.007 ng/mL See_Comment [Automated code = 6742933634) message] The system which generated this result [...] biotin. Lab Interpretation Normal (test code = 06162-6) [facility]MAG[facility]UM2022-08-26 10:05:38 Test Item Value Reference Range Interpretation Comments MAGNESIUM (test code = 8164195302) 2.1 mg/dL 1.7-2.4 Lab Interpretation (test code = Normal 01258-6) [facility] HospitalBASIC METABOLIC PANEL (NA, K, CL, CO2, GLUCOSE, BUN, CREATININE, CA)2022-05-24 10:05:18 Test Item Value Reference Range Interpretation Comments NA (test code = 136 mmol/L 135-145 1554261868) K (test code = 4.9 mmol/L 3.5-5 2930124101) CL (test code = 109 mmol/L 98-108 H 4352601636) CO2 TOTAL (test code = 21 mmol/L 23-31 L 4682047535) AGAP (test code = 2-16 2065336535) BUN (test code = 27 mg/dL 7-23 H 9010607079) GLUCOSE (test code = 89 mg/dL 70-110 4452261296) CREATININE (test code = 1.62 mg/dL 0.6-1.25 H 2035480961) CALCIUM (test code = 8.5 mg/dL 8.6-10.6 L 9694347853) eGFR (test code = mL/min/1.73m2 4976975619) ISIDORO (test code = ISIDORO) Association of [...] tests). Lab Interpretation Abnormal (test code = 13085-4) [facility] WITH [id number] 09:31:37 Test Item Value Reference Range Interpretation Comments WBC (test code = See_Comment [Automated 1390-2) message] The sy stem which generated this result transmitted reference range : 4.20 - 10.70 10*3/?L. The reference range was not used to interpret this result as normal/abnormal . RBC (test code = See_Comment L [Automated 389-8) message] The sy stem which generated this [...] RDW-SD (test code = 43.6 fL 38.5-51.6 51940-7) RDW-CV (test code = 13.1 % 12.1-15.4 788-0) PLT (test code = See_Comment [Automated 777-3) message] The sy stem which generated this result transmitted reference range : 150 - 328 10*3/ ?L. The reference r cuong was not used to interpret this result as normal/abnormal . MPV (test code = 9.3 fL 9.8-13 L 10837-7) NRBC/100 WBC (test See_Comment [Automat ed code = 1559927769) message] The system which generated this result transmitted reference range : 0.0 - 10.0 /100 WBCs. The refer ence range was not u sed to interpret th is result as normal/abnormal . NRBC x10^3 (test code See_Comment [Auto mated = 1869921700) message] The s ystem which generated this result transmitted reference range : 10*3/?L. The reference range was not used to interpret this result as normal/abnormal . GRAN MAT (NEUT) % 56.1 % (test code = 770-8) IMM GRAN % (test code 0.40 % = 6637744052) LYMPH % (test code = 27.1 % 736-9) MONO % (test code = 9.9 % 5905-5) EOS % (test code = 5.8 % 713-8) BASO % (test code = 0.7 % 706-2) GRAN MAT x10^3(ANC) 4.53 10*3/uL 1.99-6.95 (test code = 5115683718) IMM GRAN x10^3 (test 0.03 10*3/uL 0-0.06 code = 2665708058) LYMPH x10^3 (test code 2.19 10*3/uL 1.09-3.23 = 731-0) MONO x10^3 (test code 0.80 10*3/uL 0.36-1.02 = 742-7) EOS x10^3 (test code = 0.47 10*3/uL 0.06-0.53 711-2) BASO x10^3 (test code 0.06 10*3/uL 0.01-0.09 = 704-7) Lab Interpretation Abnormal (test code = 93388-2) [facility] HospitalTroponin [id number] 04:35:45 Test Item Value Reference Interpretation Comments Range TROPONIN I (test 0.004 ng/mL See_Comment [Automated code = 6333011949) message] The system which generated this result [...] biotin. Lab Interpretation Normal (test code = 59730-7) [facility] HospitalTran[facility] echo (TTE)2022-05-24 01:26:40 Test Item Value Reference Range Interpretation Comments Height (test code = in 4005217738) Weight (test code = lbs 5370148327) Systolic BP (test code = mmHg 2168160637) Diastolic BP (test code mmHg = 5743791990) Heart Rate (test code = bpm 2441596962) BSA (test code = 2.09 m2 4207872977) Ao root annulus (test 3.2 cm code = 9024986534) Ao root diam (test code 3.20 cm = 4432254840) Aortic root (test code = 3.2 cm 6647635420) LVOT diameter (test code 2.14 cm = 0004291677) LVIDD (test code = 5.00 cm 6554697462) IVS (test code = 1.31 cm 4649684139) Interventricular Septum 1.31 cm Diastolic Thickness by 2D (test code = 5638722) LVPWD (test code = 1.32 cm 8208022268) PW (test code = 1.32 cm 0.6-1.7 2107438286) EF(Teich) (test code = 61.30 % 8906269853) LVIDS (test code = 3.30 cm 7576362355) FS (test code = 33 % 0853874687) EF - 2D (test code = 61.30 % 52933929) LA size (test code = 3.6 cm 6266065348) TR Peak Mayank (test code = 261.9 cm/s 9094950180) Triscuspid Valve mmHg Regurgitation Peak Gradient (test code = 9225451650) LAV(MOD-sp4) (test code 59.10 mL = 4505580538) E wave decelartion time 0.23 s (test code = 1781692074) MV Peak E Mayank (test code 73.6 cm/s = 4172415407) MV stenosis pressure 1/2 70.2 ms time (test code = 9962281131) MV Peak A Mayank (test code 55.9 cm/s = 0098988882) E/A ratio (test code = ratio 7675781676) MV Prop V (test code = 58.20 cm/s 2951715044) MV E/e' septal (test 12.2 cm/s code = 2507406766) Tapse (test code = 2.9 cm 8750380951) LVOT stroke volume (test 103.80 cm3 code = 9882555100) LVOT peak mayank (test code 147.2 cm/s = 9984277633) LVOT mn grad (test code mmHg = 9151602604) AV LVOT peak gradient mmHg (test code = 2187971657) LVOT peak VTI (test code 28.7 cm = 6805306725) LV V1 mean (test code = 93.00 cm/s 3363330960) Aortic valve mean 119.4 cm/s velocity (test code = 2751291383) Ao peak mayank (test code = 165.6 cm/s 4304232373) Ao VTI (test code = 35.2 cm 4184367119) AV area by cont VTI 2.9 cm2 (test code = 4103026403) AV area peak mayank (test 3.2 cm2 code = 5243078698) Ao max PG (test code = 11.00 mm[Hg] 9987306322) AV peak gradient (test mmHg code = 1063445885) AV valve area (test code 2.90 cm2 = 1697027813) AV mean gradient (test mmHg code = 1183335645) Radiology Study observation (narrative) (test code = 02726-2) ISIDORO (test code = ISIDORO) Formatting of [...] 2D, color flow Doppler and spectral Doppler. [facility] HospitalNADER [id number] 14:25:35 Test Item Value Reference Interpretation Comments Range TROPONIN I (test 0.009 ng/mL See_Comment [Automated code = 9400755340) message] The system which generated this result [...] biotin. Lab Interpretation Normal (test code = 11578-5) [facility]. METABOLIC PANEL (76113)2022-05-23 14:14:13 Test Item Value Reference Range Interpretation Comments NA (test code = 143 mmol/L 135-145 7090428977) K (test code = 5.0 mmol/L 3.5-5 0431704645) CL (test code = 111 mmol/L 98-108 H 9492791704) CO2 TOTAL (test code = 20 mmol/L 23-31 L 2841812335) AGAP (test code = 2-16 5420974613) BUN (test code = 30 mg/dL 7-23 H 5985016757) GLUCOSE (test code = 85 mg/dL 70-110 3172853846) CREATININE (test code = 2.07 mg/dL 0.6-1.25 H 4793417340) TOTAL BILI (test code = 0.6 mg/dL 0.1-1.2 1540233920) CALCIUM (test code = 9.0 mg/dL 8.6-10.6 5859948410) T PROTEIN (test code = 7.2 g/dL 6.3-8.2 9799050739) ALBUMIN (test code = 4.4 g/dL 3.5-5 1096967509) ALK PHOS (test code = 121 U/L 34-122 0250763620) ALTv (test code = 23 U/L 5-50 1742-6) AST(SGOT) (test code = 29 U/L 13-40 7062852906) eGFR (test code = mL/min/1.73m2 9023169826) ISIDORO (test code = ISIDORO) Association of [...] tests). Lab Interpretation Abnormal (test code = 01741-6) [facility] WITH [id number] 14:11:10 Test Item Value Reference Range Interpretation Comments WBC (test code = See_Comment H [Automated 0683-2) message] The sy stem which generated this result transmitted reference range : 4.20 - 10.70 10*3/?L. The reference range was not used to interpret this result as normal/abnormal . RBC (test code = See_Comment [Automated 919-8) message] The sy stem which generated this [...] RDW-SD (test code = 42.9 fL 38.5-51.6 97257-1) RDW-CV (test code = 12.9 % 12.1-15.4 788-0) PLT (test code = See_Comment H [Automated 777-3) message] The sy stem which generated this result transmitted reference range : 150 - 328 10*3/ ?L. The reference r cuong was not used to interpret this result as normal/abnormal . MPV (test code = 9.0 fL 9.8-13 L 47600-8) NRBC/100 WBC (test See_Comment [Automat ed code = 8974651494) message] The system which generated this result transmitted reference range : 0.0 - 10.0 /100 WBCs. The refer ence range was not u sed to interpret th is result as normal/abnormal . NRBC x10^3 (test code See_Comment [Auto mated = [id number]) message] The s ystem which generated this result transmitted reference range : 10*3/?L. The reference range was not used to interpret this result as normal/abnormal . GRAN MAT (NEUT) % 71.9 % (test code = 770-8) IMM GRAN % (test code 0.40 % = 6175278887) LYMPH % (test code = 16.1 % 736-9) MONO % (test code = 8.4 % 5905-5) EOS % (test code = 2.5 % 713-8) BASO % (test code = 0.7 % 706-2) GRAN MAT x10^3(ANC) 8.20 10*3/uL 1.99-6.95 H (test code = 4444704511) IMM GRAN x10^3 (test 0.05 10*3/uL 0-0.06 code = 6933548673) LYMPH x10^3 (test code 1.84 10*3/uL 1.09-3.23 = 731-0) MONO x10^3 (test code 0.96 10*3/uL 0.36-1.02 = 742-7) EOS x10^3 (test code = 0.29 10*3/uL 0.06-0.53 711-2) BASO x10^3 (test code 0.08 10*3/uL 0.01-0.09 = 704-7) Lab Interpretation Abnormal (test code = 16776-9) [facility]"
--- NOTE | 2022-11-24 17:43 | RAD REPORT ---
EXAM DESCRIPTION: CT - Ct Stroke Brain Wo Cont - 11/24/2022 5:33 pm CLINICAL HISTORY: STROKE ALERT: Altered mental status, slurred speech. COMPARISON: Ct Stroke Brain Wo Cont dated 10/08/2022; Head angio dated 09/28/2022 TECHNIQUE: Noncontrast head CT images ad were obtained without IV contrast. Multiplanar reformats we re generated and reviewed. All CT scans are performed using dose optimization technique as appropriate and may include automated exposure control or mA/KV adjustment according to patient size. FINDINGS: No intracranial hemorrhage, mass, or edema. Midline structures are unremarkable. Normal ventricular caliber for age. Right parieto-occipital encephalomalacia suggestive of remote ischemia. Right subcortical frontal foc us of hypoattenuation in the vastus subtle left colonic focus of hypoattenuation also suggest small r emote infarcts. Zarate-white matter differentiation is otherwise preserved, without evidence of acute i nfarct. No abnormal extra-axial fluid collections. Mild periventricular hypodensities, nonspecific, but suggestive of chronic small vessel ischemic changes. Mastoid air cells and visualized portions of the paranasal sinuses are clear. No acute bony findings. IMPRESSION: No evidence of an acute intracranial process. Sequelae of remote ischemia most notably in the right cerebral hemisphere as above. The findings were communicated to Luis Daniel Castrejon on 11/24/2022 at 17:39 hours.
[2022-11-24 18:31] LABS: Absolute Lymphocytes (CBC) 1.7 K/uL (0.7-4.9); Hematocrit 40.7 % (39.6-49.0); Lymphocytes % 13.8 % (15.3-44.8); MCV 91.5 fL (80-100); MPV 6.6 fL (7.6-11.3); RBC Red Blood Cell Count 4.45 M/uL (4.33-5.43)
--- NOTE | 2022-11-24 18:37 | RAD REPORT ---
EXAM DESCRIPTION: RADChest Single View11/24/2022 6:05 pm CLINICAL HISTORY: stroke COMPARISON: Chest Single View dated 10/19/2022; Chest Single View dated 10/08/2022; Chest Single View dated 09/30/2022; Chest Single View dated 04/15/2022 TECHNIQUE: Portable AP view of the chest. FINDINGS: The lungs are clear. No pneumothorax or effusion. The cardiomediastinal contours are unrem arkable. IMPRESSION: No acute cardiopulmonary process.
[2022-11-24 18:40] LABS: Protime INR 0.95
[2022-11-24 20:00] LABS: Albumin 3.8 g/dL (3.4-5.0); Bilirubin Direct 0.1 mg/dL (0-0.2); Bilirubin Total 0.3 mg/dL (0.2-1.0); Magnesium 2.7 mg/dL (1.6-2.4); Potassium 5.3 mmol/L (3.5-5.1); Protein, Total 8.2 g/dL (6.4-8.2); Troponin High Sensitivity 5.9 pg/mL (<58.9)
--- NOTE | 2022-11-24 21:25 | RAD REPORT ---
EXAM DESCRIPTION: CT - Neck Angio - 11/24/2022 9:09 pm CLINICAL HISTORY: weakness Stroke protocol. COMPARISON: Noncontrast head CT of the same day TECHNIQUE: Axial CT angiography images of the head was performed with multiplanar and maximum intens ity projection reconstructions. Images performed following intravenous administration of 95mL Isovue 370. All CT scans are performed using dose optimization technique as appropriate and may include automated exposure control or mA/KV adjustment according to patient size. FINDINGS: A left aortic arch is identified with normal three vessel configuration of the great vesse ls. No significant flow abnormality is seen of the common carotid bilaterally. No significant stenosis is identified involving the cervical segments of both internal carotid arteri es. Normal flow is seen within both vertebral arteries. The vertebral arteries are codominant. IMPRESSION: No significant flow abnormality of the neck vessels is identified.
--- NOTE | 2022-11-24 21:30 | RAD REPORT ---
EXAM DESCRIPTION: CT - Head angio - 11/24/2022 9:08 pm CLINICAL HISTORY: weakness Stroke protocol COMPARISON: Head angio dated 11/24/2022 Ct Stroke Brain Wo Cont dated 11/24/2022; Ct Stroke Brain Wo C ont dated 10/08/2022 TECHNIQUE: Axial CT angiography images of the head was performed with multiplanar and maximum intens ity projection reconstructions. Images performed following intravenous administration of 95mL Isovue 370. All CT scans are performed using dose optimization technique as appropriate and may include automated exposure control or mA/KV adjustment according to patient size. FINDINGS: No evidence of large vessel occlusion. No evidence of aneurysm or dissection flap is detec rajesh. No flow-limiting stenosis or vascular malformation identified. Antegrade flow is seen in the vertebral arteries. The vertebral arteries are codominant. The visualized dural venous sinuses are grossly patent. IMPRESSION: No evidence of large vessel occlusion or flow-limiting stenosis.
--- NOTE | 2022-11-24 22:56 | ER ---
Nurse's Notes [facility] Name: Wood Jj Age: 62 yrs Sex: Male : 1960 Arrival Date: 11/24/2022 Time: 17:28 Bed 14 Private MD: Diagnosis: Other psychoactive substance abuse Presentation: 11/24 17:31 Chief complaint: Pt dropped off by unknown female reporting difficulty breathing. Pt hb altered, talking gibberish. Unknown baseline, unknown last normal. 17:31 Method Of Arrival: Wheelchair aa5 17:31 Acuity: LISA 2 aa5 17:31 Coronavirus screen: At this time, the client does not indicate any symptoms associated bp with coronavirus-19. 17:31 Ebola Screen: No symptoms or risks identified at this time. Initial Sepsis Screen: Does bp the patient meet any 2 criteria? No. Patient's initial sepsis screen is negative. Does the patient have a suspected source of infection? No. Patient's initial sepsis screen is negative. Risk Assessment: Do you want to hurt yourself or someone else? Unable to obtain. Onset of symptoms is unknown. Triage Assessment: 17:38 General: Appears obese, unkempt, Behavior is drowsy. Pain: Unable to use pain scale. bp Does not appear to understand pain scale. EENT: No deficits noted. Neuro: Level of Consciousness is lethargic, Oriented to none Speech is slurred. Cardiovascular: Rhythm is sinus rhythm. Respiratory: No deficits noted. GI: No signs and/or symptoms were reported involving the gastrointestinal system. : No signs and/or symptoms were reported regarding the genitourinary system. Derm: No deficits noted. Musculoskeletal: No deficits noted. Historical: - Allergies: 22:01 Alprazolam; ke1 22:01 Amitriptyline; "major agression"; ke1 22:01 amphetamine aspartate; ke1 22:01 amphetamine sulfate; ke1 22:01 Ativan; ke1 22:01 Benadryl; ke1 22:01 BENZODIAZEPINES; ke1 22:01 dextroamphetamine saccharate; ke1 22:01 dextroamphetamine sulfate; ke1 22:01 diazepam; ke1 22:01 ketorolac tromethamine; ke1 22:01 Lorazepam; ke1 22:01 PENICILLINS; ke1 22:01 Trazodone; ke1 22:01 Valium; "makes my heart stop"; ke1 22:01 venom-honey bee; ke1 22:01 venom-wasp; ke1 22:01 Xanax; ke1 - PMHx: 17:38 Myocardial infarction; stroke; Hypertension; Hypercholesterolemia; drug abuse; bp - PSHx: 17:38 Appendectomy; eye sx; Hemorrhoidectomy; Hernia sx; bp - Immunization history:: Adult Immunizations up to date. - Social history:: Smoking status: Patient reports the use of cigarette tobacco products, unknown amount. - Family history:: not pertinent. - Hospitalizations: : No recent hospitalization is reported. Screenin:40 [facility] ED Fall Risk Assessment (Adult) History of falling in the last 3 months, bp including since admission No falls in past 3 months (0 pts). Abuse screen: Denies threats or abuse. Denies injuries from another. Nutritional screening: No deficits noted. Tuberculosis screening: No symptoms or risk factors identified. 17:53 [place] Swallow Protocol Exclusion Criteria: Unable to remain alert for testing: Yes bp Result: FAIL MD Notified: Luis Daniel Castrejon MD. 19:00 VAN Screening: Arm Drift: Patient shows no arm weakness. Patient is VAN negative. ke1 Visual Disturbance: No visual disturbance noted. Aphasia: No aphasia noted. Neglect: No neglect noted. Assessment: 17:25 Reassessment: Code Stroke called, pt to CT accompanied by me. aa5 17:35 Reassessment: PT RETURNED FROM CT. bp 17:40 Reassessment: Pt's sister at bedside states "he walked to work today and my son picked aa5 him up from work and my son said that he was already having difficulty speaking and not acting right", unknown last normal. . 18:38 Reassessment: PHLEBOTOMY CONTACTED FOR LAB REDRAW. FAMILY NOW STATING MX EPISODES OF bp SAME S/S IN PAST ASSOCIATED WITH DRUG ABUSE. 21:11 Reassessment: Care delay by difficulty getting an IV for CT scan. ke1 21:55 Reassessment: Patient is alert, oriented x 3, equal unlabored respirations, skin ke1 warm/dry/pink. Patient states feeling better. 22:23 Neuro: Level of Consciousness is awake, alert, Oriented to person, place, time, ke1 situation, Denies weakness blurred vision dizziness. 23:16 Reassessment: Patient states feeling better. Patient states symptoms have improved. ke1 Vital Signs: 18:39 BP 98 / 66; Pulse 57; Resp 16; Pulse Ox 93% ; bp 22:05 BP 115 / 61; Pulse 55; Resp 16; Temp 97.7(O); Pulse Ox 92% on R/A; ke1 23:10 BP 118 / 67; Pulse 61; Resp 17; Temp 97.7; Pulse Ox 93% on R/A; ke1 NIH Stroke Scale Scores: 19:00 NIHSS Score: 0 ke1 ED Course: 17:28 Patient arrived in ED. eb 17:28 Dylan Cummins, RN is Primary Nurse. bp 17:32 Triage completed. aa5 17:35 CT Stroke Brain w/o Contrast In Process Unspecified. EDMS 17:40 Arm band placed on. bp 17:40 Patient has correct armband on for positive identification. Bed in low position. Call bp light in reach. Side rails up X2. 17:44 Luis Daniel Castrejon MD is Attending Physician. rn 17:44 [facility]C [facility]. kb 18:00 Inserted saline lock: 22 gauge in right hand, using aseptic technique. Blood collected. bp 18:04 Placed in gown. Warm blanket given. Diet: Patient is NPO. control systems developer on. Pulse ox mm9 on. NIBP on. 18:07 Stroke CXR 1 View In Process Unspecified. EDMS 19:05 Attending Physician role handed off by Luis Daniel Castrejon MD sp3 19:05 Hiral Ross MD is Attending Physician. sp3 21:00 Inserted saline lock: 18 gauge in left antecubital area, using aseptic technique. by ke1 ultrasound per Charge nurse. 21:10 Head angio In Process Unspecified. EDMS 21:10 Neck Angio In Process Unspecified. EDMS 23:16 No provider procedures requiring assistance completed. IV discontinued. ke1 Administered Medications: No medications were administered Medication: 23:16 VIS not applicable for this client. ke1 Point of Care Testing: Blood Glucose: 17:24 Blood Glucose: 125 mg/dL; aa5 Ranges: Outcome: 22:56 Discharge ordered by . sp3 23:16 Discharged to home ambulatory. ke1 23:16 Condition: good 23:16 Discharge instructions given to patient. 23:17 Patient left the ED. ke1 NIH Stroke Scale - NIH Stroke Score Date: 11/24/2022 Time: 19:00 Total Score = 0 1a. Level of Consciousness (LOC) - 0(Alert) 1b. Level of Consciousness (LOC) (Month \\T\\ Age) - 0(Both) 1c. LOC Commands (Open \\T\\ Closes Eyes/Bar Tacker) - 0(Both) 2. Best Gaze (Lateral Gaze Paresis) - 0(Normal) 3. Visual Field Loss - 0(No visual loss) 4. Facial Palsy - 0(Normal) 5a. Left Arm: Motor (10-second hold) - 0(No drift) 5b. Right Arm: Motor (10-second hold) - 0(No drift) 6a. Left Leg: Motor (5-second hold - always test supine) - 0(No drift) 6b. Right Leg: Motor (5-second hold - always test supine) - 0(No drift) 7. Limb Ataxia (finger/nose \\T\\ heel/jolley - test with eyes open) - 0(Absent) 8. Sensory Loss (pinprick arms/legs/face) - 0(Normal) 9. Best Language: Aphasia (description/naming/reading) - 0(No aphasia) 10. Dysarthria (speech clarity - read or repeat words) - 0(Normal) 11. Extinction and Inattention (visual/tactile/auditory/spatial/personal) - 0(No abnormality) Initials: ke1 Signatures: Dispatcher [employer] EDMS Britt Cardona, DEVELOPER DESIGNER-C DEVELOPER DESIGNER-Ckb Luis Daniel Castrejon MD MD rn Calderon, Audri, RN RN aa5 Hailee Quinonez RN RN hb Peltier, Brian, RN RN bp Botello, Elizabeth eb Patel, Setul, MD MD sp3 Nicole Phelps RN RN ke1 Bianca Tipton mm9 Corrections: (The following items were deleted from the chart) 17:45 17:25 Reassessment: Code Stroke called, pt to CT with Elayne parks5 aa5 17:50 17:31 Chief complaint: Pt dropped by unknown female reporting difficulty hb breathing. Pt altered, talking gibberish. Unknown baseline, unknown last normal. aa5 18:40 18:38 Reassessment: PHLEBOTOMY CONTACTED FOR LAB REDRAW bp bp 22:07 22:05 BP 115 / 61; Pulse 55bpm; Resp 16bpm; Pulse Ox 92% RA; ke1 ke1
--- NOTE | 2022-11-24 22:57 | EDPHYS ---
Physician Documentation [facility] Name: Wood Jj Age: 62 yrs Sex: Male : 1960 Arrival Date: 11/24/2022 Time: 17:28 Bed 14 Private MD: ED Physician Hiral Ross HPI: 11/24 18:45 This 62 yrs old Male presents to ER via Wheelchair with complaints of Altered Mental rn Status. 18:46 The patient presents with confusion, decreased mental status, decreased responsiveness, rn disorientation. Onset: The symptoms/episode began/occurred at an unknown time. Possible causes: CVA or TIA, drug use, alcohol, low blood sugar. Current symptoms: In the emergency department the patient's symptoms have improved. The patient has experienced similar episodes in the past. The patient has not recently seen a physician. Historical: - Allergies: 22:01 Alprazolam; ke1 22:01 Amitriptyline; "major agression"; ke1 22:01 amphetamine aspartate; ke1 22:01 amphetamine sulfate; ke1 22:01 Ativan; ke1 22:01 Benadryl; ke1 22:01 BENZODIAZEPINES; ke1 22:01 dextroamphetamine saccharate; ke1 22:01 dextroamphetamine sulfate; ke1 22:01 diazepam; ke1 22:01 ketorolac tromethamine; ke1 22:01 Lorazepam; ke1 22:01 PENICILLINS; ke1 22:01 Trazodone; ke1 22:01 Valium; "makes my heart stop"; ke1 22:01 venom-honey bee; ke1 22:01 venom-wasp; ke1 22:01 Xanax; ke1 - PMHx: 17:38 Myocardial infarction; stroke; Hypertension; Hypercholesterolemia; drug abuse; bp - PSHx: 17:38 Appendectomy; eye sx; Hemorrhoidectomy; Hernia sx; bp - Immunization history:: Adult Immunizations up to date. - Social history:: Smoking status: Patient reports the use of cigarette tobacco products, unknown amount. - Family history:: not pertinent. - Hospitalizations: : No recent hospitalization is reported. ROS: 18:46 Constitutional: Negative for fever, chills, and weight loss, Eyes: Negative for injury, rn pain, redness, and discharge, Cardiovascular: Negative for chest pain, palpitations, and edema, Respiratory: Negative for shortness of breath, cough, wheezing, and pleuritic chest pain, Abdomen/GI: Negative for abdominal pain, nausea, vomiting, diarrhea, and constipation, Back: Negative for injury and pain, MS/Extremity: Negative for injury and deformity, Skin: Negative for injury, rash, and discoloration, Neuro: Negative for headache, weakness, numbness, tingling, and seizure. Exam: 18:27 ECG was reviewed by the Attending Physician. rn 18:46 Constitutional: Disheveled patient, slurred speech, pressured speech Head/Face: rn Normocephalic, atraumatic. Cardiovascular: Bradycardic, regular. No pulse deficits. Respiratory: No increased work of breathing, no retractions or nasal flaring. Abdomen/GI: Soft, non-tender Skin: Warm, dry MS/ Extremity: Pulses equal, no cyanosis. Neuro: Awake and alert, GCS 15, pressured speech, moves all 4 extremities with equal strength, sensation intact Vital Signs: 18:39 BP 98 / 66; Pulse 57; Resp 16; Pulse Ox 93% ; bp 22:05 BP 115 / 61; Pulse 55; Resp 16; Temp 97.7(O); Pulse Ox 92% on R/A; ke1 23:10 BP 118 / 67; Pulse 61; Resp 17; Temp 97.7; Pulse Ox 93% on R/A; ke1 NIH Stroke Scale Scores: 19:00 NIHSS Score: 0 ke1 MDM: 17:44 Patient medically screened. 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 Even if onset was around noon, already outside of TNKase window. Review of previous inpatient records show + cocaine abuse with several similar presentations with AMS and cocaine abuse. . 17:54 External Records Reviewed: Inpatient record: Review of previous inpatient records show rn + cocaine abuse with several similar presentations with AMS and cocaine abuse. . 18:46 ED course: Sister confirms now that he has known drug problem but does not want to take rn him home today. He woke up shortly after arrival and walked unassisted to bathroom without difficulty. . 22:55 ED course: Patient signed out to me by Dr. Castrejon at shift change. CT scans of the head sp3 and neck with angiogram demonstrated no occlusion or other abnormality. Troponin is negative. Patient remains symptom-free with a normal neurological exam. Patient will be discharged at this time.. 23:04 ED course: Urine screen is still pending. Patient vehemently denies cocaine usage. sp3 Given his normal scans we will discharge patient home and he can follow-up for his urine drug screen results as his family is inquiring.. 11/24 17:28 Order name: Basic Metabolic Panel; Complete Time: 22:54 eb 11/24 17:28 Order name: CBC with Diff; Complete Time: 18:45 11/24 17:28 Order name: Hepatic Function; Complete Time: 22:54 11/24 17:28 Order name: High Sensitivity Troponin; Complete Time: 22:54 11/24 17:28 Order name: Magnesium; Complete Time: 22:54 11/24 17:28 Order name: Protime (+inr); Complete Time: 18:45 11/24 17:28 Order name: Ptt, Activated; Complete Time: 18:45 eb 11/24 17:28 Order name: CT Stroke Brain w/o Contrast; Complete Time: 17:44 eb 11/24 17:28 Order name: Stroke CXR 1 View; Complete Time: 18:45 11/24 17:29 Order name: glucometer results - FOR PT WITH NO ID; Complete Time: 18:45 aa5 11/24 17:33 Order name: ETOH Level; Complete Time: 22:54 bp 11/24 17:44 Order name: UDS kb 11/24 17:28 Order name: EKG; Complete Time: 17:29 eb 11/24 17:28 Order name: Accucheck; Complete Time: 17:52 eb 11/24 17:28 Order name: Cardiac monitoring; Complete Time: 17:52 11/24 17:28 Order name: EKG - Nurse/Tech; Complete Time: 17:52 11/24 17:28 Order name: IV Saline Lock; Complete Time: 17:52 11/24 17:28 Order name: Labs collected and sent; Complete Time: 17:52 11/24 17:28 Order name: NPO; Complete Time: 17:52 11/24 17:28 Order name: O2 Per Protocol; Complete Time: 17:53 11/24 17:28 Order name: O2 Sat Monitoring; Complete Time: 17:53 11/24 17:28 Order name: Stroke Swallow Screen; Complete Time: 17:53 11/24 18:37 Order name: Labs collected and sent: RECOLLECT GREEN TOP; Complete Time: 18:38 11/24 20:13 Order name: Head angio; Complete Time: 22:54 EDMS 11/24 20:14 Order name: Neck Angio; Complete Time: 22:54 EDMS EC: Rate is 53 beats/min. Rhythm is regular. QRS [place] is Normal. SD interval is normal. QRS rn interval is normal. QT interval is normal. No Q waves. T waves are Normal. No ST changes noted. Clinical impression: Sinus bradycardia. Interpreted by me. Reviewed by me. Administered Medications: No medications were administered Point of Care Testing: Blood Glucose: 17:24 Blood Glucose: 125 mg/dL; aa5 Ranges: Critical Glucose Levels:Adult <50 mg/dl or >400 mg/dl <40 mg/dl or >180 mg/dl Disposition Summary: 11/24/22 22:56 Discharge Ordered Location: Home sp3 Condition: Stable sp3 Diagnosis - Other psychoactive substance abuse sp3 Followup: sp3 - With: Private Physician - When: Upon discharge from the Emergency Department - Reason: Continuance of care Discharge Instructions: - Discharge Summary Sheet sp3 - Substance Use Disorder sp3 Forms: - Medication Reconciliation Form sp3 - Thank You Letter sp3 - Antibiotic Education sp3 - Prescription Opioid Use sp3 NIH Stroke Scale - NIH Stroke Score Date: 11/24/2022 Time: 19:00 Total Score = 0 1a. Level of Consciousness (LOC) - 0(Alert) 1b. Level of Consciousness (LOC) (Month \\T\\ Age) - 0(Both) 1c. LOC Commands (Open \\T\\ Closes Eyes/Marriage Performer) - 0(Both) 2. Best Gaze (Lateral Gaze Paresis) - 0(Normal) 3. Visual Field Loss - 0(No visual loss) 4. Facial Palsy - 0(Normal) 5a. Left Arm: Motor (10-second hold) - 0(No drift) 5b. Right Arm: Motor (10-second hold) - 0(No drift) 6a. Left Leg: Motor (5-second hold - always test supine) - 0(No drift) 6b. Right Leg: Motor (5-second hold - always test supine) - 0(No drift) 7. Limb Ataxia (finger/nose \\T\\ heel/jolley - test with eyes open) - 0(Absent) 8. Sensory Loss (pinprick arms/legs/face) - 0(Normal) 9. Best Language: Aphasia (description/naming/reading) - 0(No aphasia) 10. Dysarthria (speech clarity - read or repeat words) - 0(Normal) 11. Extinction and Inattention (visual/tactile/auditory/spatial/personal) - 0(No abnormality) Initials: ke1 Signatures: Dispatcher [employer] EDMS Luis Daniel Castrejon MD MD rn Peltier, Brian, RN Susan Kilpatrick Setul, MD MD sp3 Nicole Phelps RN RN ke1 Corrections: (The following items were deleted from the chart) 20:10 17:49 Head Angio+CT.RAD.BRZ ordered. EDMS EDMS 20:10 17:50 Neck Angio+CT.RAD.BRZ ordered. EDMS EDMS
[2022-11-24 23:20] LABS: Urine Blood Negative (Negative); Urine Glucose Negative (Negative); Urine Protein Negative (Negative); Urine pH 5.5 (5.0-7.0)
[2022-11-24 23:51] LABS: Barbiturates NEGATIVE (NEGATIVE); Benzodiazepines NEGATIVE (NEGATIVE); Cocaine ND (NEGATIVE); METHAMPHETAM NEGATIVE (NEGATIVE); Methadone NEGATIVE (NEGATIVE); Opiates POSITIVE (NEGATIVE); Phencyclidine NEGATIVE (NEGATIVE); THC Cannibis NEGATIVE (NEGATIVE)
[2022-11-24 23:56] VITALS: BP 115/61; TEMP 97.7; O2SAT 92
--- NOTE | 2022-11-25 18:40 | EKG ---
Test Date: 2022-11-24 Test Time: 17:49:03 Machine Tender: MARCY MEASUREMENT RESULTS: Intervals: Rate: 53 MO: 142 QRSD: 78 QT: 448 QTc: 420 [place]: P: 74 MO: 142 QRS: 42 T: 55 INTERPRETIVE STATEMENTS: Sinus bradycardia Low voltage QRS Borderline ECG Compared to ECG 10/19/2022 23:28:04 Low QRS voltage now present Sinus rhythm no longer present Electronically Signed On 11-25-22 18:38:33 NURSERY HELPER by Mino Tsai
== END 2022-11-24 23:17 | disposition home or self-care (01) ==
LOC: ER 17:22
DX: F19.10 Other psychoactive substance abuse, uncomplicated (principal); I10 Essential (primary) hypertension; Z72.0 Tobacco use; Z88.0 Allergy status to penicillin; Z88.5 Allergy status to narcotic agent; Z88.8 Allergy status to other drugs, medicaments and biological substances; Z91.030 Bee allergy status; Z91.048 Other nonmedicinal substance allergy status
CPT/HCPCS: 93005; 85025; 80048; 36415; 83735; 85610; 82947; 80076; 85730; 81003; 84484; 80307; 70496; 70498; 70450; 71045; 99284; Q9967; G0480

== ENCOUNTER 2023-07-03 11:19 | Emergency (ER) | payer MEDICARE ==
--- OUTSIDE RECORDS SUMMARY | 2023-07-03 11:26 | XMS REPORT | Continuity of Care Document ---
:1960 Author Organization [facility] t Address [address] [facility] [address] [place] [address] Care Team Providers Name Role Phone Cody Mahad M Primary Care Physician Mahad Ross Attending Clinician Unavailable Lana Chaparro Attending Clinician Carson_B Attending Clinician Unavailable LIZZ HUNG Attending Clinician Unavailable LIZZ HUNG Attending Clinician Unavailable Gloria Garcia Attending Clinician Corinna Stroud Attending Clinician FELIX OBANDO Attending Clinician Unavailable Felix Obando DO Attending Clinician GERTRUDE CHINCHILLA Attending Clinician Unavailable Gertrude Chinchilla DO Attending Clinician Cobb_T Attending Clinician Unavailable Simón Rollins RN Attending Clinician Unavailable CALLIE CUELLAR Attending Clinician Unavailable Callie Cuellar DO Attending Clinician Desjuddzo_T Attending Clinician Unavailable Doctor Unassigned, [place] Attending Clinician Unavailable NEELA ALBARADO Attending Clinician Unavailable NEELA ALBARADO Attending Clinician Unavailable VIKASH GRIMALDO Attending Clinician Unavailable Silva Szymanski MD Attending Clinician Vikash Grimaldo MD Attending Clinician SERENITY Attending Clinician Unavailable Gretta Ruiz Attending Clinician PARAG_S Attending Clinician Unavailable Chapinandrea INDUSTRIAL CONVEYOR BELT REPAIRERLove Foley Attending Clinician [place]_B Admitting Clinician Unavailable FELIX OBANDO Admitting Clinician Unavailable GERTRUDE CHINCHILLA Admitting Clinician Unavailable Cobb_T Admitting Clinician Unavailable CALLIE CUELLAR Admitting Clinician Unavailable Callie Cuellar DO Admitting Clinician Deshazo_T Admitting Clinician Unavailable VIKASH GRIMALDO Admitting Clinician Unavailable Vikash Grimaldo MD Admitting Clinician MARIAH_Will Admitting Clinician Unavailable PARAG_Yajaira Admitting Clinician Unavailable Payers Payer Name Policy Type Policy Effective Date Expiration Date Sour ce Number [id number] 2021 (MEDICARE 00:00:00 REPLACEMENT HMO) [id number] 2020 MEDICARE 00:00:00 ADVANTAGE PLAN [place] [id number] 2021 Common Spi rit 00:00:[address] 2021 Common Spi rit 00:00:[address] 2021 Common Spi rit 00:00:[address] 2021 Common Spi rit 00:00:[address] [facility] Problems Condition Condition Condition Status Onset Resolution Last Treating Co mments Source Name Details Category Date Date Treatment Clinician Date Chest Chest Disease Active Univers pain, pain, 8-25 ity of [place]specif[place] d type 00 [facility] Other Other Disease Active Univers hyperlipid hyperlipid 8-25 it y of emia emia 00:00: [address] Drug abuse Drug abuse Disease Active U nivers 8-25 ity of 00:00: [place] [facility] Nonobstruc Nonobstruc Disease Active U nivers tive tive 8-25 ity of atheroscle atheroscle [place] of rosis of 00 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 [place] (acute [place] (acute Disease Active 2020-09 U nivers kidney kidney 2-30 ity of injury) injury) 00:00: [place] [facility] Esophageal Esophageal Disease Active U nivers spasm spasm 4-30 ity of 00:00: [place] [facility] A-fib A-fib Disease Active Univers 4-24 ity of 00:00: [place] [facility] Atrial Atrial Disease Active Univers fibrillati fibrillati 4-23 it y of on with on with 00:00: [place] RVR RVR Medical Branch Shortness Shortness Disease Active Uni vers of breath of breath 4-23 ity of 00:00: [place] [facility] NSTEMI NSTEMI Disease Active Univers (non-ST (non-ST 4-23 ity of elevated elevated 00:00: [place] myocardial myocardial 00 Me dical infarction infarction Br anch ) ) Tobacco Tobacco Disease Active Univers abuse abuse 4-23 ity of 00:00: [place] [facility] Family Family Disease Active Univers history of history of 4-23 it y of early CAD early CAD 00:[place] Inguinal Inguinal Disease Active 2016-09 Unive rs hernia hernia 2-04 ity of 00:00: [place] 00 Medical Branch Status Status Disease Active Univers epilepticu epilepticu 4-26 it y of s s 00:00: [place] [facility] Seizure Seizure Disease Active Univers 4-26 ity of 00:00: [place] 00 Medical Branch [id number] 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, - CHI cerebral [facility] [id number] Diverticul Problem C ommon [id number] osis large Spirit intestine - CHI w/o St perforatio [facility] n or Medical abscess Center w/bleeding [id number] 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 spinal Medical osteoarthr Center itis complicati on status Stroke Stroke Problem Common [facility] [id number] Incontinen Problem Com mon ce of Spirit feces, - CHI unspecifie [facility] fecal [facility] incontinen Medica l ce type Center [id number] Primary Problem Common insomnia [facility] [id number] TIA Problem Common (transient Spirit ischemic - CHI attack) [facility] [id number] Aphasia Problem Common Spirit - CHI [facility] [id number] Body mass Problem Com mon index Spirit [BMI] - [facility] 31.0-31.9, [facility] [id number] Other Problem Common obesity Spirit due to - CHI excess [facility] [id number] Mixed Problem Common hyperlipid [facility] emia [facility] [id number] Paroxysmal Problem Co mmon atrial Spirit fibrillati - CHI on [facility] [id number] Vitamin D Problem Comm on deficiency [facility] [id number] Primary Problem Comm on osteoarthr Spirit itis of - CHI left knee [facility] [id number] Other Problem Common chronic Spirit pain [facility] [id number] Arthritis Problem Co mmon [id number] of knee, [facility] left [facility] [id number] Essential Problem Comm on hypertensi Spirit on CHI [facility] [id number] Tobacco Problem Commo n use Spirit disorder, - CHI continuous [facility] [id number] Non-season Problem Com mon al Spirit allergic - CHI rhinitis, [facility] trigger Medical Center [id number] Primary Problem Comm on osteoarthr Spirit itis of - CHI left [facility] [id number] Incomplete Problem Co mmon tear of Spirit left - CHI rotator St cuff, [facility] unspecifie Medica l d whether Center traumatic Primary Primary Problem Common osteoarthr osteoarthr Sp awais itis itis - CHI involving [facility] Allergies, Adverse Reactions, Alerts Allergy Allergy Status Severity Reaction(s) Onset Inactive Treating Comm ents Source Name Type Date Date Clinician LORAZEPA DRUG Active Anaphylaxis Uni vers M INGREDI 05-23 ity of 00:00: [place] 00 Medical Branch Lorazepa Propensi Active Anaphylaxis Pt has U nivers m ty to 25 had ity of adverse 00:00: multiple [place] [...] Active High Anaphylaxis 2016-09 Uni vers INGREDI 11-02 ity of 00:00: [place] 00 Medical Branch Diazepam Propensi Active Anaphylaxis 2016-09 Patient Univers ty to 11-02 states ity of adverse 00:00: it'll [place] [...] 00 Medical Branch Venom-Wa Propensi Active Anaphylaxis 2013-0 U nivers sp ty to 4-26 ity of adverse 00:00: [place] reaction 00 Medical s Branch penicill penicill Active swells Common in G in G throat shut Spiri t - [facility] diazepam diazepam Active Stops heart C ommon Spirit - [facility] Social History Social Habit Start Date Stop Date Quantity Comments Source History of Tobacco Current Smoker Co mmon Spirit - Use [facility] Sex Assigned At Common Sp awais - [facility] Exposure to 2023-01-18 2023-01-28 Not sure University of SARS-CoV-2 (event) 00:00:00 13:20:00 [facility] Alcohol intake 2022-10-21 2022-10-21 Current University of 00:00:00 00:00:00 non-drinker of [facility] alcohol Branch (finding) Cigarette 2021-09-27 2021-09-27 University of pack-years 00:00:00 00:00:00 [facility] Tobacco use and 2021-09-27 2021-09-27 Smokeless Universit y of exposure 00:00:00 00:00:00 tobacco non-user [facility] dical Branch Education 2021-09-27 2021-09-27 8 University of 00:00:00 00:00:00 [facility] Cigarettes smoked 2021-09-27 2021-09-27 Univers ity of current (pack per 00:00:00 00:00:00 ) - Reported Branch Smoking Status Start Date Stop Date Source Current Smoker 2023-01-29 00:00:00 Common Spiri [facility] Medications Ordered Filled Start Stop Current Ordering Indication Dosage Frequency Signature Comments Components Source Medication Medication Date Date Medication? Clinician (SIG) Name Name hydrOXYzine 2022- No 25mg 25 mg, Uni vers (ATARAX) 01-28 Oral, ity of tablet 25 18:45: 18:51 ONCE, 1 [place] mg 00 :00 dose, On Medical Tu01/28/23 Branch at 1345, VANNA traMADol traMADol No 1{table traMADol HCl 50 MG HCl 50 MG 5-01 t_as_ne HCl 50 MG 00:00: eded} 00 Bupivicaine Bupivicaine No 5mL [place] 3-15 Spirit 00:00: - [facility] Kenalog Kenalog No 1mL Common (Triamcinol (Triamcinol 3-15 S pirit one) one) 00:00: - [facility] traMADol traMADol No 1{table traMADol HCl 50 MG HCl 50 MG 2-16 t_as_ne HCl 50 MG 00:00: eded} 00 Kenalog Kenalog 0 No 1mL Common (Triamcinol (Triamcinol 2-16 S pirit one) one) 00:00: - CHI [facility] Kenalog Kenalog 0 No 40mg Common (Triamcinol (Triamcinol 2-16 S pirit one) one) 00:00: - CHI [facility] Bupivicaine Bupivicaine No 2.5mg Common [place] 11-14 Spirit 00:00: - CHI [facility] dextrose 50 2021-09- No 50mL 50 mL, [...] at 999 Uni vers (NS) bolus 10-31 1202 mL/hr, ity of infusion 14:45: 15:24 1,000 mL, Lauri as 1,000 mL 00 :00 IV Medical Infusion, Branch ONCE, 1 dose, On Fri08/30/22 at 0845, VANNA carvediloL 2021- No [id number] 3.125mg Take 1 Univers 3.125 mg 05-25 tablet by ity o f tablet 00:00: 04:59 mouth in [place] 00 :00 the Medical morning Branch and 1 tablet in the evening. Take with meals. Do all this for 30 days. carvediloL 2021- No [id number] 3.125mg Take 1 Univers 3.125 mg 05-25 tablet by ity o f tablet 00:00: 04:59 mouth in [place] 00 :00 the [facility] Branch and 1 tablet in the evening. Take with meals. Do all this for 30 days. nicotine Yes 1{patch Apply 1 Univers mg/24 hr 8- } Patch to ity of patch 17:45: area(s) [place] 28 every 24 Medical ([facility] ur) hours. Patient reports he smokes 13 cigarettes per day. nicotine Yes 1{patch Apply 1 Univers mg/24 hr 8- } Patch to ity of patch 17:45: area(s) [place] 28 every 24 Medical ([facility] ur) hours. Patient reports he smokes 13 cigarettes per day. nicotine Yes 1{patch Apply 1 Univers mg/24 hr 8- } Patch to ity of patch 17:45: area(s) [place] 28 every 24 Medical ([facility] ur) hours. Patient reports he smokes 13 cigarettes per day. nicotine Yes 1{patch Apply 1 Univers mg/24 hr 8- } Patch to ity of patch 17:45: area(s) [place] 28 every 24 Medical ([facility] ur) hours. Patient reports he smokes 13 cigarettes per day. nicotine Yes 1{patch Apply 1 Univers mg/24 hr 8- } Patch to ity of patch 17:45: area(s) [place] 28 every 24 Medical ([facility] ur) hours. Patient reports he smokes 13 cigarettes per day. hydrOXYzine Yes 10mg 10 mg, Univ ers (ATARAX) 05-24 Oral, ity of tablet 10 15:14: Q6HPRN, [place] mg 53 Starting Medical on Fri Branch 05/24/22 at 1014, Until Discontinu ed, Routine, Anxiety, Itching polyethylen 2021-0 Yes 17g 17 g, Unive rs e glycol - Oral, ity of 3350 powder 14:00: DAILY, [place] 17 g 00 First dose Medical on Fri Branch 05/24/22 at 0900, Until Discontinu ed, Routine pantoprazol 2021-0 Yes 40mg 40 mg, Univ ers e 8 Oral, ity of (PROTONIX) 14:00: DAILY, [place] [...] Oral, ity of (IMDUR) 24 14:00: DAILY, [place] hr tablet 00 First dose Medi usman [...] CONTINUOUS Medic al , Starting Branch on Nohemy 05/23/22 at 2030, Until Discontinu ed, Routine sennosides- 2021-0 Yes 1{tbl} 1 tablet, [facility] 05-24 Oral, BID, ity o f sodium 01:00: First dose [place] (SENOKOT-S) 00 on [facility] Medica l 8.6-50 mg 05/23/22 at Bran ch per tablet 1999, 1 tablet Until Discontinu ed, Routine enoxaparin Yes 1mg/kg 90 mg Univ ers (LOVENOX) 05-24 (rounded ity of injection 01:00: [place] 93 mg [place] 90 mg 00 = 1 mg/kg Medical ?93 kg), [facility], Q12H, First dose (after last modificati on) on [facility] 05/23/22 at 2000, Until Discontinu ed, Routine nicotine Yes 1{patch 1 Patch, Un lee (NICODERM) 05-24 } Topical, ity o f 21 mg/24 hr 00:45: Administer [place] patch 1 00 over 24 Medical Patch Hours, Branch Q24H, First dose on [facility] 05/23/22 at 1945, Until Discontinu ed, Routine hydrOXYzine 2021- No [id number] 10mg Take 1 Univers 10 mg 05-24 tablet by ity of tablet 00:00: 04:59 mouth [place] 00 :00 every 6 Medical (six) Branch hours as needed for Anxiety for up to 30 days. hydrOXYzine 2021- No [id number] 10mg Take 1 Univers 10 mg 05-24 tablet by ity of tablet 00:00: 04:59 mouth [place] 00 :00 every 6 Medical (six) Branch hours as needed for Anxiety for up to 30 days. enoxaparin 2021- No 40mg 40 mg, [facility] [place] [facility] ers (LOVENOX) 05-23 08- Subcutaneo ity of injection 22:00: 23:48 us, DAILY, [place] 40 mg 00 :16 First dose Medical on [facility] Branch 05/23/22 at 1700, Until Discontinu ed, Routine ondansetron Yes 4mg 4 mg, Slow Univers (ZOFRAN 8 IV Push, ity of (PF)) 19:56: Q6HPRN, [place] injection 4 03 Starting Medi usman mg on [facility] Branch 05/23/22 at 1456, Until Discontinu ed, Routine, Nausea and Vomiting (N/V) HYDROcodone 2021- No 1{tbl} 1 tablet, Univers -acetaminop 05-23 Oral, ity of hen (NORCO 19:55: 19:54 Q6HPRN, La[place] as 5) 5-325 mg 52 :52 Starting Medi usman tablet 1 on [facility] Branch tablet 05/23/22 at 1455, Until 05/25/22 at 1454, Routine, Pain (scale 4-6) acetaminoph Yes 650mg 650 mg, Un lee en 05-23 Oral, ity of (TYLENOL) 19:55: Q6HPRN, [place] tablet 650 49 Starting Medic al mg on [facility] Branch 05/23/22 at 1455, Until Discontinu ed, Routine, Pain (scale 1-3) NaCl 0.9% 2021- No 1000mL at 999 Uni vers (NS) bolus 05-23 mL/hr, ity of infusion 18:45: 22:25 1,000 mL, La[place] as 1,000 mL 00 :22 IV Medical Infusion, Branch ONCE, 1 dose, On Nohemy 05/23/22 at 1345, VANNA NaCl 0.9% No 1000mL at 999 Uni vers (NS) bolus 05-23 08-25 mL/hr, ity of infusion 15:15: 18:21 1,000 mL, Lauri as 1,000 mL 00 :00 IV Medical Infusion, Branch ONCE, 1 dose, On [facility] 05/23/22 at 1015, VANNA LORazepam 2021- No 1mg 1 mg, Slow U nivers (ATIVAN) 05-23 IV Push, ity of injection 1 13:30: 13:45 ONCE, 1 [place] mg 00 :00 dose, On Medical [facility] Branch 05/23/22 at 0830, STAT
Is the [...] iately_ 00 before_ bedtime } Zolpidem Zolpidem No QD Zolpidem Tartrate 5 Tartrate 5 4-21 Tartrate 5 MG MG 00:00: MG 00 HYDROcodone 2021- No [id number] 1{tbl} Take 1 U nivers -acetaminop 09-30 01-10 tablet by it y of marv (NORCO) 00:00: 05:59 [place] 10-325 mg 00 :00 every 8 Medical tablet (eight) Branch hours as needed for Pain (scale 7-10) for up to 7 days. Indication s: acute pain [facility] 2020-09 No 40mg Common (Triamcinol (Triamcinol 0-13 S pirit one) one) 00:00: - CHI 00 [facility] No 40mg Common (Triamcinol (Triamcinol 0-13 S pirit one) one) 00:00: - CHI 00 [facility] 2020-09 No 40mg Common (Triamcinol (Triamcinol 0-13 S pirit one) one) 00:00: - CHI 00 [facility] 2020-09 No 40mg Common (Triamcinol (Triamcinol 0-13 S pirit one) one) 00:00: - CHI 00 [facility] 2020-09 No 40mg Common (Triamcinol (Triamcinol 0-13 S pirit one) one) 00:00: - CHI 00 [facility] 2020-09 No 40mg Common (Triamcinol (Triamcinol 0-13 S pirit one) one) 00:00: - CHI 00 [facility] [place] 2020-09 No 40mg Common (Triamcinol (Triamcinol 0-13 S pirit one) one) 00:00: - CHI 00 [facility] [place] Roperalog 2020-09 No 40mg Common (Triamcinol (Triamcinol 0-13 S pirit one) one) 00:00: - CHI 00 [facility] [place] Kenalog 2020-09 No 40mg Common (Triamcinol (Triamcinol 0-13 S pirit one) one) 00:00: - CHI 00 [facility] [place] Kenmary kate 2020-09 No 40mg Common (Triamcinol (Triamcinol 0-13 S pirit one) one) 00:00: - CHI 00 [facility] [place] Kenmary kate 2020-09 No 40mg Common (Triamcinol (Triamcinol 0-13 S pirit one) one) 00:00: - CHI 00 [facility] [place] Kenmary kate 2020-09 No 40mg Common (Triamcinol (Triamcinol 0-13 S pirit one) one) 00:00: - CHI 00 [facility] [place] Kenmary kate 2020-09 No 40mg Common (Triamcinol (Triamcinol 0-13 S pirit one) one) 00:00: - CHI 00 [facility] [place] Kenmary kate 2020-09 No 40mg Common (Triamcinol (Triamcinol 0-13 S pirit one) one) 00:00: - CHI 00 [facility] [place] Kenmary kate 2020-09 No 40mg Common (Triamcinol (Triamcinol 0-13 S pirit one) one) 00:00: - CHI 00 [facility] Benzonatate Benzonatate 2020-09- No 1{capsu TID Benzonatat 200 MG 200 MG 0- le} e 200 MG 00:00: 00:00 00 :00 Bupivicaine Bupivicaine No 2.5mg [place] 9-28 Spirit 00:00: - CHI 00 [facility] [place] Kenmary kate No 40mg Common (Triamcinol (Triamcinol 9-28 S pirit one) one) 00:00: - CHI 00 [facility] Bupivicaine Bupivicaine 2020-0 No 2.5mg Common [place] 9-28 Spirit 00:00: - CHI 00 [facility] Kenalog Kenalog 2020-0 No 40mg Common (Triamcinol (Triamcinol 9-28 S pirit one) one) 00:00: - CHI 00 [facility] Bupivicaine Bupivicaine 2020-0 No 2.5mg Common [place] 9-28 Spirit 00:00: - CHI 00 [facility] Kenalog Kenalog 2020-0 No 40mg Common (Triamcinol (Triamcinol 9-28 S pirit one) one) 00:00: - CHI 00 [facility] Bupivicaine Bupivicaine 2020-0 No 2.5mg Common [place] 9-28 Spirit 00:00: - CHI 00 [facility] Kenalog Kenalog 2020-0 No 40mg Common (Triamcinol (Triamcinol 9-28 S pirit one) one) 00:00: - CHI 00 [facility] Bupivicaine Bupivicaine 2020-0 No 2.5mg Common [place] 9-28 Spirit 00:00: - CHI 00 [facility] Kenalog Kenalog 2020-0 No 40mg Common (Triamcinol (Triamcinol 9-28 S pirit one) one) 00:00: - CHI 00 [facility] Bupivicaine Bupivicaine 2020-0 No 2.5mg Common [place] 9-28 Spirit 00:00: - CHI 00 [facility] Kenalog Kenalog 2020-0 No 40mg Common (Triamcinol (Triamcinol 9-28 S pirit one) one) 00:00: - CHI 00 [facility] Bupivicaine Bupivicaine 2020-0 No 2.5mg Common [place] 9-28 Spirit 00:00: - CHI 00 [facility] Kenalog Kenalog 2020-0 No 40mg Common (Triamcinol (Triamcinol 9-28 S pirit one) one) 00:00: - CHI 00 [facility] Bupivicaine Bupivicaine 2020-0 No 2.5mg [place] 9-28 Spirit 00:00: - CHI 00 [facility] Kenalog Kenalog 2020-0 No 40mg Common (Triamcinol (Triamcinol 9-28 S pirit one) one) 00:00: - CHI 00 [facility] Bupivicaine Bupivicaine 1-0 No 2.5mg [place] 9-28 Spirit 00:00: - CHI 00 [facility] Kenalog Kenalog 2020-0 No 40mg Common (Triamcinol (Triamcinol 9-28 S pirit one) one) 00:00: - CHI 00 [facility] Bupivicaine Bupivicaine 2020-0 No 2.5mg Common [place] 9-28 Spirit 00:00: - CHI 00 [facility] Kenalog Kenalog 2020-0 No 40mg Common (Triamcinol (Triamcinol 9-28 S pirit one) one) 00:00: - CHI 00 [facility] Bupivicaine Bupivicaine 2020-0 No 2.5mg Common [place] 9-28 Spirit 00:00: - CHI 00 [facility] Kenalog Kenalog 2020-0 No 40mg Common (Triamcinol (Triamcinol 9-28 S pirit one) one) 00:00: - CHI 00 [facility] Bupivicaine Bupivicaine 2020-0 No 2.5mg Common [place] 9-28 Spirit 00:00: - CHI 00 [facility] Kenalog Kenalog 2020-0 No 40mg Common (Triamcinol (Triamcinol 9-28 S pirit one) one) 00:00: - CHI 00 [facility] Bupivicaine Bupivicaine 2020-0 No 2.5mg Common [place] 9-28 Spirit 00:00: - CHI 00 [facility] Kenalog Kenalog 2020-0 No 40mg Common (Triamcinol (Triamcinol 9-28 S pirit one) one) 00:00: - CHI 00 [facility] Bupivicaine Bupivicaine 2020-0 No 2.5mg Common [place] 9-28 Spirit 00:00: - CHI 00 [facility] Kenalog Kenalog 2020-0 No 40mg Common (Triamcinol (Triamcinol 9-28 S pirit one) one) 00:00: - CHI 00 [facility] Bupivicaine Bupivicaine 2020-0 No 2.5mg Common [place] - Spirit 00:00: - CHI 00 [facility] Kenalog Kenalog 2020-0 No 40mg Common (Triamcinol (Triamcinol 9-28 S pirit one) one) 00:00: - CHI 00 [facility] traMADol traMADol 2020-0 2020- No 1{table traMADol HCl 50 MG HCl 50 MG 06-26 t_as_ne HCl 50 MG 00:00: 00:00 eded} 00 :00 Bupivicaine Bupivicaine 2020-0 No 2.5mg Common [place] 8-24 Spirit 00:00: - CHI 00 [facility] Kenalog Kenalog 2020-0 No 40mg Common (Triamcinol (Triamcinol 8-24 S pirit one) one) 00:00: - CHI 00 [facility] Bupivicaine Bupivicaine 2020-0 No 2.5mg Common [place] 8-24 Spirit 00:00: - CHI 00 [facility] Kenalog Kenalog 2020-0 No 40mg Common (Triamcinol (Triamcinol 8-24 S pirit one) one) 00:00: - CHI 00 [facility] Bupivicaine Bupivicaine 2020-0 No 2.5mg Common [place] 8-24 Spirit 00:00: - CHI 00 [facility] Kenalog Kenalog 2020-0 No 40mg Common (Triamcinol (Triamcinol 8-24 S pirit one) one) 00:00: - CHI 00 [facility] Bupivicaine Bupivicaine 2020-0 No 2.5mg Common [place] 8-24 Spirit 00:00: - CHI 00 [facility] Kenalog Kenalog 2020-0 No 40mg Common (Triamcinol (Triamcinol 8-24 S pirit one) one) 00:00: - CHI 00 [facility] Bupivicaine Bupivicaine 1-0 No 2.5mg Common [place] 8-24 Spirit 00:00: - CHI 00 [facility] Kenalog Kenalog 2020-0 No 40mg Common (Triamcinol (Triamcinol 8-24 S pirit one) one) 00:00: - CHI 00 [facility] Bupivicaine Bupivicaine 2020-0 No 2.5mg Common [place] 8-24 Spirit 00:00: - CHI 00 [facility] Kenalog Kenalog 2020-0 No 40mg Common (Triamcinol (Triamcinol 8-24 S pirit one) one) 00:00: - CHI 00 [facility] Bupivicaine Bupivicaine 2020-0 No 2.5mg Common [place] 8-24 Spirit 00:00: - CHI 00 [facility] Kenalog Kenalog 2020-0 No 40mg Common (Triamcinol (Triamcinol 8-24 S pirit one) one) 00:00: - CHI 00 [facility] Bupivicaine Bupivicaine 2020-0 No 2.5mg Common [place] 8-24 Spirit 00:00: - CHI 00 [facility] Kenalog Kenalog 2020-0 No 40mg Common (Triamcinol (Triamcinol 8-24 S pirit one) one) 00:00: - CHI 00 [facility] Bupivicaine Bupivicaine 1-0 No 2.5mg Common [place] 8-24 Spirit 00:00: - CHI 00 [facility] Kenalog Kenalog 2020-0 No 40mg Common (Triamcinol (Triamcinol 8-24 S pirit one) one) 00:00: - CHI 00 [facility] Bupivicaine Bupivicaine 2020-0 No 2.5mg Common [place] 8-24 Spirit 00:00: - CHI 00 [facility] Kenalog Kenalog 2020-0 No 40mg Common (Triamcinol (Triamcinol 8-24 S pirit one) one) 00:00: - CHI 00 [facility] Bupivicaine Bupivicaine 2020-0 No 2.5mg Common [place] 8-24 Spirit 00:00: - CHI 00 [facility] Kenalog Kenalog 2020-0 No 40mg Common (Triamcinol (Triamcinol 8-24 S pirit one) one) 00:00: - CHI 00 [facility] Bupivicaine Bupivicaine 2020-0 No 2.5mg Common [place] 8-24 Spirit 00:00: - CHI 00 [facility] Kenalog Kenalog 2020-0 No 40mg Common (Triamcinol (Triamcinol 8-24 S pirit one) one) 00:00: - CHI 00 [facility] Bupivicaine Bupivicaine 2020-0 No 2.5mg Common [place] 8-24 Spirit 00:00: - CHI 00 [facility] Judsonalog Kenalog 2020-0 No 40mg Common (Triamcinol (Triamcinol 8-24 S pirit one) one) 00:00: - CHI 00 [facility] Bupivicaine Bupivicaine 2020-0 No 2.5mg Common [place] 8-24 Spirit 00:00: - CHI 00 [facility] Judsonalog Kenalog 2020-0 No 40mg Common (Triamcinol (Triamcinol 8-24 S pirit one) one) 00:00: - CHI 00 [facility] Bupivicaine Bupivicaine 2020-0 No 2.5mg Common [place] 8-24 Spirit 00:00: - CHI 00 [facility] Judsonalog Kenalog 2020-0 No 40mg Common (Triamcinol (Triamcinol 8-24 S pirit one) one) 00:00: - CHI 00 [facility] atorvastati 0 Yes 80mg Take 1 Univ [...] (two) Medical times Branch daily. aspirin 81 0 Yes 81mg Take 1 Unive rs mg chewable 4-30 tablet by ity of tablet 00:00: mouth [place] 00 daily. Medical Branch lisinopril 2017-0 Yes 2.5mg Take 1 Univ ers 2.5 mg 4-30 tablet by ity of tablet 00:00: mouth [place] 00 daily. Medical Branch zolpidem 5 2017-0 Yes 5mg Take 1 Unive rs mg [...] [place] 00 daily. Medical Branch zolpidem 5 2017-0 Yes 5mg Take 1 Unive rs mg [...] (two) Medical times Branch daily. zolpidem 5 2017-2021- No 5mg Take 1 Univ ers mg [...] Medical times Branch daily. Lisinopril Lisinopril No 1{table QD Lisinopril 2.5 [...] MG 40 MG Magnesium Magnesium No Magnesium Montelukast Montelukast No Montelukas Sodium 10 Sodium 10 t Sodium MG MG 10 MG Atorvastati Atorvastati No Atorvastat n Calcium n Calcium in Calcium 40 MG 40 MG 40 MG Metoprolol Metoprolol No 1{table QD Metoprolol Succinate Succinate t} Succinate ER 50 MG ER 50 MG ER 50 MG Vitamin C Vitamin C No Vitamin C tiZANidine tiZANidine No tiZANidine HCl HCl HCl Gabapentin Gabapentin No 1{capsu BID Gabapentin 300 MG 300 MG le} 300 MG Levocetiriz Levocetiriz No 1{table QD Levocetiri ine ine t_in_th zine Dihydrochlo Dihydrochlo e_eveni Dihydrochl ride 5 MG ride 5 MG ng} oride 5 MG Clopidogrel Clopidogrel No 1{table QD Clopidogre Bisulfate Bisulfate t} l 75 MG 75 MG Bisulfate 75 MG EpiPen EpiPen No EpiPen Iron Iron No Iron Modafinil Modafinil No 1{table QD Modafinil 200 MG 200 MG t_in_th 200 MG e_morni ng} traMADol traMADol No 2{table traMADol HCl 50 MG HCl 50 MG ts} HCl 50 MG Aspirin 81 Aspirin 81 No 1{table QD Aspirin 81 MG MG t} MG DULoxetine DULoxetine No 1{capsu QD DULoxetine HCl 40 MG HCl 40 MG le} HCl 40 MG Lisinopril Lisinopril No Lisinopril 2.5 MG 2.5 MG 2.5 MG Folic Acid Folic Acid No 1{table QD Folic Acid 1 MG 1 MG t} 1 MG Vitamin D3 Vitamin D3 No 1{table QD Vitamin D3 125 MCG 125 MCG t} 125 MCG (5000 UT) (5000 UT) (5000 UT) Magnesium Magnesium No Magnesium Lisinopril Lisinopril No Lisinopril 2.5 MG 2.5 [...] 75 MG 75 MG Bisulfate 75 MG Vital Signs Vital Name Observation Time Observation Value Comments Source Systolic blood 2023-01-28 18:22:00 157 mm[Hg] Univer sity of pressure [facility] Diastolic blood 2023-01-28 18:22:00 96 mm[Hg] Unive rsity of [facility] Heart rate 2023-01-28 18:22:00 78 /min Universi ty of [facility] Body temperature 2023-01-28 18:22:00 37.17 Shameka Univ ersity of [place] [facility] Respiratory rate 2023-01-28 18:22:00 18 /min Univ ersity of [place] [facility] [place] Body weight 2023-01-28 18:22:00 83.915 kg Universi ty of [facility] BMI 2023-01-28 18:22:00 29.86 kg/m2 Universi ty of [facility] Oxygen saturation in 2023-01-28 18:22:00 95 /min University of Arterial blood by [place] Sverve usman Pulse oximetry Branch Systolic blood 2022-10-20 12:25:00 125 mm[Hg] Univer sity of pressure [place] [facility] [place] Diastolic blood 2022-10-20 12:25:00 76 mm[Hg] Unive rsity of pressure [facility] Heart rate 2022-10-20 12:25:00 52 /min Universi ty of [place] [facility] [place] Respiratory rate 2022-10-20 12:25:00 14 /min Univ ersity of [facility] Oxygen saturation in 2022-10-20 12:25:00 93 /min University of Arterial blood by [place] S[facility] Pulse oximetry Branch Body temperature 2022-10-20 10:46:00 37.39 Sahmeka Univ ersity [facility] [place] [facility] [place] Body height 2022-10-20 10:46:00 167.6 cm Universi ty [facility] [place] [facility] [place] Body weight 2022-10-20 10:46:00 85.7 kg Universi ty [facility] [place] [facility] [place] BMI 2022-10-20 10:46:00 30.49 kg/m2 Universi ty of [place] [facility] [place] Systolic blood 2022-08-30 20:50:00 92 mm[Hg] Univer sity of pressure [place] [facility] Diastolic blood 2022-08-30 20:50:00 64 mm[Hg] Unive rsity of pressure [facility] Heart rate 2022-08-30 20:50:00 53 /min Universi ty [facility] Respiratory rate 2022-08-30 20:50:00 20 /min [facility] Oxygen saturation in 2022-08-30 20:50:00 94 /min University Arterial blood by [facility] Pulse oximetry Branch Body temperature 2022-08-30 13:47:00 35.67 Shameka [facility] Body height 2022-08-30 13:47:00 175.3 cm Universi ty [facility] Body weight 2022-08-30 13:47:00 92.987 kg Universi [facility] BMI 2022-08-30 13:47:00 30.27 kg/m2 [facility] height 2022-07-31 14:40:00 66 [in_i] [facility] weight 2022-07-31 14:40:00 201.0 [lb_av] Common [facility] temperature 2022-07-31 14:40:00 98.2 [degF] Common [facility] bmi 2022-07-31 14:40:00 32.44 kg/m2 [facility] oximetry 2022-07-31 14:40:00 97 % [facility] respiratory rate 2022-07-31 14:40:00 17 /min Comm on [facility] blood pressure 2022-07-31 14:40:00 135 mm[Hg] Common [facility] - systolic [facility] blood pressure 2022-07-31 14:40:00 72 mm[Hg] Common [facility] - diastolic [facility] Systolic blood 2022-05-24 20:23:00 112 mm[Hg] Univer sity of [facility] Diastolic blood 2022-05-24 20:23:00 65 mm[Hg] Unive rsity of [facility] Heart rate 2022-05-24 20:23:00 68 /min Universi ty [facility] Body temperature 2022-05-24 20:23:00 35.83 Shameka [facility] Respiratory rate 2022-05-24 20:23:00 18 /min [facility] Oxygen saturation in 2022-05-24 20:23:00 96 /min [facility] blood by [facility] Pulse oximetry [place] Body height 2022-05-23 19:38:00 175.3 cm Universi ty [facility] Body weight 2022-05-23 19:38:00 92.987 kg Universi [facility] BMI 2022-05-23 19:38:00 30.27 kg/m2 Universi [facility] height 2022-04-18 10:00:00 66 [in_i] [facility] weight 2022-04-18 10:00:00 209.0 [lb_av] [facility] temperature 2022-04-18 10:00:00 98.1 [degF] [facility] bmi 2022-04-18 10:00:00 33.73 kg/m2 [facility] oximetry 2022-04-18 10:00:00 95 % [facility] respiratory rate 2022-04-18 10:00:00 16 /min Comm on [facility] blood pressure 2022-04-18 10:00:00 132 mm[Hg] [facility] systolic [facility] blood pressure 2022-04-18 10:00:00 73 mm[Hg] Common [facility] - diastolic [facility] height 2022-04-04 11:10:00 66 [in_i] [facility] weight 2022-04-04 11:10:00 197 [lb_av] [facility] temperature 2022-04-04 11:10:00 98 [degF] [facility] bmi 2022-04-04 11:10:00 31.79 kg/m2 [facility] blood pressure 2022-04-04 11:10:00 125 mm[Hg] Common [facility] - systolic [facility] blood pressure 2022-04-04 11:10:00 65 mm[Hg] Common [facility] - diastolic [facility] height 2022-02-14 08:20:00 66 [in_i] Common S pirit - [facility] weight 2022-02-14 08:20:00 197.3 [lb_av] Common [facility] temperature 2022-02-14 08:20:00 97.3 [degF] Common S pirit [facility] bmi 2022-02-14 08:20:00 31.84 kg/m2 Common S pirit [facility] oximetry 2022-02-14 08:20:00 96 % [facility] 2022-02-14 08:20:00 16 /min Comm on [facility] blood pressure 2022-02-14 08:20:00 114 mm[Hg] Common [facility] - systolic [facility] blood pressure 2022-02-14 08:20:00 62 mm[Hg] Common [facility] - diastolic [facility] height 2022-01-17 08:10:00 66 [in_i] Common S pirit [facility] weight 2022-01-17 08:10:00 195.6 [lb_av] [facility] temperature 2022-01-17 08:10:00 98.3 [degF] Common S pirit [facility] bmi 2022-01-17 08:10:00 31.57 kg/m2 Common S pirit [facility] oximetry 2022-01-17 08:10:00 98 % Common S pirit [facility] respiratory rate 2022-01-17 08:10:00 17 /min Comm on [facility] blood pressure 2022-01-17 08:10:00 133 mm[Hg] Common [facility] - systolic [facility] blood pressure 2022-01-17 08:10:00 72 mm[Hg] Common [facility] - diastolic [facility] height 2021-10-16 08:20:00 66 [in_i] Common [facility] weight 2021-10-16 08:20:00 194.9 [lb_av] [facility] temperature 2021-10-16 08:20:00 98.2 [degF] Common [facility] bmi 2021-10-16 08:20:00 31.45 kg/m2 Common [facility] oximetry 2021-10-16 08:20:00 97 % Common [facility] respiratory rate 2021-10-16 08:20:00 17 /min Comm on [facility] height 2021-10-16 08:20:00 66 [in_i] Common [facility] weight 2021-10-16 08:20:00 194.9 [lb_av] [facility] temperature 2021-10-16 08:20:00 98.2 [degF] [facility] bmi 2021-10-16 08:20:00 31.45 kg/m2 [facility] oximetry 2021-10-16 08:20:00 97 % Common [facility] respiratory rate 2021-10-16 08:20:00 17 /min Comm on [facility] blood pressure 2021-10-16 08:20:00 132 mm[Hg] [facility] systolic [facility] blood pressure 2021-10-16 08:20:00 77 mm[Hg] Common [facility] diastolic [facility] height 2021-10-08 13:10:00 66 [in_i] Common [facility] weight 2021-10-08 13:10:00 195.3 [lb_av] [facility] temperature 2021-10-08 13:10:00 98.1 [degF] [facility] bmi 2021-10-08 13:10:00 31.52 kg/m2 [facility] oximetry 2021-10-08 13:10:00 97 % [facility] respiratory rate 2021-10-08 13:10:00 17 /min Comm on [facility] blood pressure 2021-10-08 13:10:00 132 mm[Hg] Common [facility] - systolic [facility] blood pressure 2021-10-08 13:10:00 73 mm[Hg] Common [facility] - diastolic [facility] height 2021-07-11 09:10:00 66 [in_i] [facility] weight 2021-07-11 09:10:00 185.1 [lb_av] [facility] temperature 2021-07-11 09:10:00 97.6 [degF] [facility] bmi 2021-07-11 09:10:00 29.87 kg/m2 [facility] oximetry 2021-07-11 09:10:00 96 % [facility] respiratory rate 2021-07-11 09:10:00 18 /min Comm on [facility] blood pressure 2021-07-11 09:10:00 138 mm[Hg] [facility] systolic [facility] blood pressure 2021-07-11 09:10:00 76 mm[Hg] [facility] diastolic [facility] Procedures Procedure Date / Time Performing Clinician Source Performed CONSENT/REFUSAL FOR 2023-01-28 18:20:41 Doctor Unassigned, [facility] DIAGNOSIS AND TREATMENT [place] [facility] URINALYSIS 2022-10-20 11:29:00 Singer Felixjose Whitney [facility] URINE DRUG (IMMUNOASSAY) 2022-10-20 11:29:00 Felix Obando [facility] DRUG Medical [facility] SCREEN W/O REFLEX XR CHEST 1 VW 2022-10-20 11:07:00 Felix Obando [facility] COMP. METABOLIC PANEL 2022-10-20 11:04:00 Felix Obando [facility] ([id number]) Medical Branch SALICYLATE 2022-10-20 11:04:00 Singer [facility] ETHANOL 2022-10-20 11:04:00 Singer [facility] CBC WITH DIFF 2022-10-20 11:04:00 [facility] BASIC METABOLIC PANEL 2022-08-30 17:22:00 Gertrude Chinchilla [facility] (NA, K, CL, CO2, GLUCOSE, Medica l Branch BUN, CREATININE, CA) URINALYSIS 2022-08-30 14:21:00 Gertrude Chinchilla [facility] URINE DRUG (IMMUNOASSAY) 2022-08-30 14:21:00 Gertrude Chinchilla [facility] SCREEN W/O REFLEX XR CHEST 1 VW 2022-08-30 14:04:16 Gertrude Chinchilla [facility] MAGNESIUM 2022-08-30 14:03:00 Gertrude Chinchilla [facility] TROPONIN I 2022-08-30 14:03:00 Gertrude Chinchilla [facility] COMP. METABOLIC PANEL 2022-08-30 14:03:00 Gertrude Chinchilla [facility] ([id number]) [facility] ETHANOL 2022-08-30 14:03:00 Gertrude Chinchilla [facility] CBC WITH DIFF 2022-08-30 14:03:00 Gertrude Chinchilla [facility] XR CHEST 1 VW 2022-05-24 11:38:14 Huang [facility] MAGNESIUM 2022-05-24 08:56:00 Huang [facility] TROPONIN I 2022-05-24 08:56:00 Huang [facility] BASIC METABOLIC PANEL 2022-05-24 08:56:00 Callie Cuellar [facility] (NA, K, CL, CO2, GLUCOSE, Medica l Branch BUN, CREATININE, CA) CBC WITH DIFF 2022-05-24 08:56:00 Callie Cuellar [facility] TROPONIN I 2022-05-24 03:51:00 Huang [facility] XR KUB 2022-05-23 22:25:58 Huang, [facility] URINALYSIS 2022-05-23 22:15:00 Gertrude Chinchilla [facility] CREATININE, URINE RANDOM 2022-05-23 22:15:[address] [facility] SODIUM, URINE RANDOM 2022-05-23 22:15:00 Callie Cuellar [facility] URINE DRUG (IMMUNOASSAY) 2022-05-23 22:15:00 Gertrude Chicnhilla [facility] DRUG [facility] SCREEN W/O REFLEX TRANSTHORACIC ECHO (TTE) 2022-05-23 20:33:00 Callie Cuellar [facility] COVID-19 (ID NOW RAPID 2022-05-23 16:39:00 Gertrude Chinchilla [facility] TESTING) Medical Branch LAB ONLY COVID 2022-05-23 16:39:00 Gertrude Chinchilla [facility] INTERPRETATION [facility] TROPONIN I 2022-05-23 13:42:00 Gertrude Chinchilla [facility] COMP. METABOLIC PANEL 2022-05-23 13:42:00 Gertrude Chinchilla [facility] ([id number]) [facility] CBC WITH DIFF 2022-05-23 13:42:00 Gertrude Chinchilla [facility] HB ECG ROUTINE & RHYTHM 2022-05-23 13:12:28 Gertrude Chinchilla [facility] EKG-12 LEAD 2022-05-23 12:44:00 Gertrude Chinchilla [facility] AUTHORIZATION FOR RELEASE 2021-11-12 06:01:00 Doctor Unassigned, [facility] [place] [facility] Encounters Start End Encounter Admission Attending Care Care Encounter Source Date/Time Date/Time Type Type Clinicians Facility Department ID 2023-06-05 Outpatient Ross, STLMLC STLMLC [id number] Common 14:42:00 Mahad [id number] [facility] 2023-05-14 Outpatient Ross, STLMLC STLMLC [id number] Common 15:43:00 Mahad [id number] [facility] 2023-05-09 Outpatient Ross, STLMLC STLMLC [id number] Common 14:32:00 Mahad 14527 [facility] 2023-02-11 Outpatient Ross, STLMLC STLMLC [id number] Common 08:03:01 Mahad [id number] [facility] 2022-12-02 Outpatient Ross, STLMLC STLMLC [id number] Common 14:44:00 Mahad [id number] [facility] 2022-11-14 Outpatient Ross, STLMLC STLMLC [id number] Common 12:02:00 Mahad 55560 [facility] 2022-11-12 Outpatient Ross, STLMLC STLMLC [id number] Common 10:39:01 Mahad [id number] [facility] 2022-10-07 Outpatient Ross, STLMLC STLMLC [id number] Common 09:37:01 Mahad 05095 [facility] 2022-10-04 Outpatient Ross, STLMLC STLMLC [id number] Common 16:32:01 Mahad [id number] [facility] 2022-08-16 Outpatient Ross, STLMLC STLMLC [id number] Common 15:23:00 Mahad [id number] [facility] 2022-07-31 Outpatient Ross, STLMLC STLMLC [id number] Common 14:32:00 Mahad 51511 [facility] 2022-07-29 Outpatient Ross, STLMLC STLMLC [id number] Common 16:01:01 Mahad [id number] [facility] 2022-07-19 Outpatient Ross, STLMLC STLMLC [id number] Common 16:30:01 Mahad 69019 [facility] 2022-07-16 Outpatient Ross, STLMLC STLMLC [id number] Common 10:11:00 Mahad 70699 [facility] 2022-06-25 Outpatient Ross, STLMLC STLMLC [id number] Common 14:39:00 Mahad [id number] [facility] 2022-05-16 Outpatient Ross, STLMLC STLMLC [id number] Common 12:11:01 Mahad [id number] [facility] 2021-10-24 Outpatient Ross, STLMLC STLC [id number] Common 13:24:10 Mahad [id number] [facility] 2021-10-24 Outpatient [place], STLMLC STLC [id number] Common 13:06:32 Mahad 83882 [facility] 2021-10-24 Outpatient Ross, STLMLC STLC [id number] Common 12:40:59 Mahad [id number] [facility] 2021-10-24 Outpatient Ross, STLMLC STLC [id number] Common 12:30:18 Mahad [id number] [facility] 2021-10-24 [facility] [id number] Common 12:29:04 Mahad 80977 [facility] 2021-10-24 Outpatient [place], ST[place] [id number] Common 11:52:46 Mahad 24423 [facility] 2021-10-24 [facility] [id number] Common 11:44:17 Mahad [id number] [facility] 2021-10-24 Outpatient Ross, [facility] [id number] Common 11:37:11 Mahad [id number] [facility] 2021-07-28 Emergency [facility] [id number] Univers 05:50:12 ity of [facility] 2023-05-12 2023-05-12 Community Lana [id number]. [id number]. CL [id number] [facility] 15:45:00 16:45:00 Geriatrics Shankar [id number]. [id number] Medical Provider [id number] Initial [id number] Visit 2023-04-25 2023-04-25 Outpatient Lindadaelma DM DM 512 [facility] 00:00:00 00:00:00 _B 0728 Medica l Group 2023-02-20 2023-02-20 Outpatient [facility] [id number] Tim 16:29:56 16:29:56 0525 F Fausto 2023-01-28 2023-01-28 Emergency X LIZZ HUNG [facility] ERT 1 [id number] Univers 13:23:00 14:59:00 LIZZ HUNG of [facility] 2023-01-28 2023-01-28 Emergency Alexa [facility] [id number] Univers 13:23:00 14:59:00 Lizz LUJAN [id number] i [facility] [id number] [facility] [id number] [place] [address] Branch 2023-01-22 2023-01-22 Outpatient [facility] [id number] Tim 11:17:34 11:17:34 0426 [facility] 2022-12-24 2022-12-24 Outpatient [facility] [id number] Tim 08:30:06 08:30:06 0328 [facility] 2022-11-27 2022-11-27 Outpatient [facility] [id number] Tim 08:05:24 08:05:24 0301 [facility] 2022-11-05 2022-11-05 (TEL) [facility] [id number] Co mmon 00:00:00 00:00:00 [facility] 2022-10-30 2022-10-30 Outpatient [facility] [id number] Tim 17:27:51 17:27:51 0201 [facility] 2022-10-25 2022-10-25 CAV Gloria [id number]. [id number]. CLAC XKURRY [facility] 16:30:00 17:30:00 Jose [id number] [address] [place] [address] [id number] 2022-10-24 2022-10-24 (TEL) [facility] [id number] Co mmon 00:00:00 00:00:00 [facility] 2022-10-22 2022-10-22 Care Corinna Poll 2.16.840. [id number]. C [id number] [facility] 16:00:00 16:30:00 [facility] [id number]. [id number] [facility] [id number] 2022-10-20 2022-10-20 Emergency X [facility] ERT [id number] Univers 04:41:00 06:40:00 FELIX tony [facility] 2022-10-20 2022-10-20 Emergency [facility] [id number] Univers 04:41:00 06:40:00 Felix LUJAN [id number] i ty [facility] [id number] [facility] [id number] [address] 2022-10-16 2022-10-16 (TEL) STLMLC STLMLC [id number] Co mmon 00:00:00 00:00:00 [facility] 2022-10-03 2022-10-03 Outpatient [facility] [id number] Tim 15:56:50 15:56:50 0105 [place] 2022-10-03 2022-10-03 (TEL) STLMLC STLMLC [id number] Co mmon 00:00:00 00:00:00 [facility] 2022-09-04 2022-09-04 Outpatient [facility] [id number] Tim 08:12:48 08:12:48 1207 [place] 2022-09-03 2022-09-03 Outpatient [place] [id number] Tim 14:40:55 14:40:55 1206 [place] 2022-08-30 2022-08-30 Emergency [facility] [id number] Univers 07:45:00 15:39:00 GERTRUDE tony [facility] 2022-08-30 2022-08-30 Emergency [facility] [id number] Univers 07:45:00 15:39:00 Gertrude LUJAN [id number] ity [facility] [id number] [facility] [id number] [address] 2022-08-12 2022-08-12 Outpatient [place] [facility] 512 Devoted 00:00:00 00:00:00 _B 1114 Medica l Group 2022-08-12 2022-08-12 Outpatient [place] [facility] 512 Devoted 00:00:00 00:00:00 _B 0127 Medica l Group 2022-08-12 2022-08-12 Outpatient [place] [facility] 512 Devoted 00:00:00 00:00:00 _B 0506 Medica l Group 2022-08-12 2022-08-12 Outpatient [place] [facility] 512 Devoted 00:00:00 00:00:00 _B 0710 Medica l Group 2022-07-31 2022-07-31 OFFICE STLC STLC [id number] Co mmon 00:00:00 00:00:00 VISIT Vincent [facility] L[facility] 4 [facility] 2022-06-21 2022-06-21 [facility]patient [id number] [facility] 00:00:00 00:00:00 0923 Medica l Group 2022-06-20 2022-06-20 Outpatient [facility] [id number] [facility] 00:00:00 00:00:00 0922 Medica l Group 2022-06-06 2022-06-06 (TEL) STLC STLC [id number] Co mmon 00:00:00 00:00:00 [facility] 2022-05-27 2022-05-27 Transition SIOBHAN Rollins 1.2.840.114 [id number] Univers 00:00:00 00:00:00 of Care Simón PEREA [id number] [place] 4.2.7.2.686 Tess dent [phone] [facility] [place] [address] 2022-05-23 2022-05-24 Outpatient Kt [place] [place] [id number] Univers 07:39:00 17:43:00 CALLIE tony [facility] 2022-05-23 2022-05-24 Emergency Gertrude Chinchilla [facility] 1.2.8 40.114 [id number] Univers 07:39:00 17:43:00 Callie Cuellar 350.1.13.10 [facility] 4.2.7.2.686 [facility] [phone] [facility] [place] [address] 2022-05-09 2022-05-09 Outpatient Cobb_T [facility] [id number] 022 Devoted 00:00:00 00:00:00 0811 [facility] 2022-04-18 2022-04-18 OFFICE STLMLC STLMLC [id number] Co mmon 00:00:00 00:00:00 VISIT [facility] PT - CHI LEVEL 4 [facility] 2022-04-18 2022-04-18 (TEL) STLMLC STLMLC [id number] Co mmon 00:00:00 00:00:00 [facility] 2022-04-12 2022-04-12 Outpatient Deshazo_T [facility] [id number] -2021 Devoted 03:30:00 03:30:00 0715 [facility] 2022-04-10 2022-04-10 Outpatient Deshazo_T [facility] [id number] -2021 Devoted 04:58:00 04:58:00 0713 [facility] l [facility] 2022-04-04 2022-04-04 (TEL) STLMLC STLMLC [id number] Co mmon 00:00:00 00:00:00 [facility] 2022-04-04 2022-04-04 (EST. STLMLC STLMLC [id number] Co mmon 00:00:00 00:00:00 VIDEO) EST Spi rit VIRTUAL - CHI VIDEO [facility] 2022-03-26 2022-03-26 (TEL) STLMLC STLMLC [id number] Co mmon 00:00:00 00:00:00 [facility] 2022-02-14 2022-02-14 OFFICE STLMLC STLMLC [id number] Co mmon 00:00:00 00:00:00 VISIT Spirit [facility] PT - CHI LEVEL 5 [facility] 2022-01-22 2022-01-22 (TEL) STLMLC STLMLC [id number] Co mmon 00:00:00 00:00:00 Spirit - CHI [facility] 2022-01-17 2022-01-17 OFFICE STLMLC STLMLC [id number] Co mmon 00:00:00 00:00:00 VISIT [facility] EST[facility] PT - CHI LEVEL 4 [facility] 2021-11-12 2021-11-12 Orders Doctor NIR 1.2.840.114 [id number] Univers 00:00:00 00:00:00 Only Unassigned, SHAI 350.1.13.10 ity of [place] [facility] 4.2.7.2.686 Lauri as [phone] [place] [address] [address] 2021-10-16 2021-10-16 SUB ANNUAL STLMLC STLMLC [id number] Common 00:00:00 00:00:00 MCR [facility] WELLNESS - CHI VISIT [facility] 2021-10-16 2021-10-16 OFFICE STLMLC STLC [id number] Co mmon 00:00:00 00:00:00 VISIT Spirit ESTAB PT - CHI LEVEL 4 [facility] 2021-10-09 2021-10-09 Outpatient R NEELA ALBARADO [facility] [id number] Univers 14:20:00 14:20:00 NEELA ALBARADO ity [facility] 2021-10-09 2021-10-09 (TEL) STLMLC STLMLC [id number] Co mmon 00:00:00 00:00:00 [facility] - CHI [facility] 2021-10-08 2021-10-08 (HOSP F/U) STLMLC STLMLC [id number] Common 00:00:00 00:00:00 [facility] 2021-10-05 2021-10-05 (TEL) STLMLC STLMLC [id number] Co mmon 00:00:00 00:00:00 Spirit - CHI [facility] 2021-10-02 2021-10-02 Transition SIOBHAN Rollins 1.2.840.114 [id number] Univers 00:00:00 00:00:00 of Care Simón PEREA [id number] ity of [place] 4.2.7.2.686 [facility] [phone] [facility] [place] [address] 2021-10-01 2021-10-01 (TEL) STLMLC STLMLC [id number] Co mmon 00:00:00 00:00:00 [facility] 2021-09-27 2021-09-30 Outpatient X GELY, [facility] [id number] Univers 17:38:00 15:22:00 VIKASH ity [facility] 2021-09-27 2021-09-30 Outpatient X OVJACK, [facility] [id number] Univers 17:38:00 15:22:00 [facility] 2021-09-27 2021-09-30 Emergency Silva Szymanski [facility] 1.2.840 .114 [id number] Univers 17:38:00 15:22:00 Vikash Grimaldo 350.1.13.10 [facility] 4.2.7.2.686 [facility] [id number] [facility] [place] [address] 2021-09-19 2021-09-19 Outpatient OWENS_T [facility] G [id number] Devoted 01:00:00 01:00:00 1222 [facility] l [facility] 2021-09-05 2021-09-05 CAV Tomora 2.16.840. 2.16.840.1. CLAC XU3YAG Devoted 14:30:00 15:30:00 Ruiz [id number]. 185250.4.6. [facility] [id number] 2021-08-10 2021-08-10 Outpatient OWENS_T [facility] G [id number] 021 Devoted 10:31:00 10:31:00 1112 [facility] l [facility] 2021-08-07 2021-08-07 Outpatient CURRY_S [facility] [id number] 021 Devoted 02:14:00 02:14:00 1109 [facility] l [facility] 2021-07-17 2021-07-17 (TEL) STLMLC STLMLC [id number] Co mmon 00:00:00 00:00:00 [facility] 2021-07-11 2021-07-11 OFFICE STLMLC STLMLC [id number] Co mmon 00:00:00 00:00:00 VISIT [facility] 4 [facility] 2021-07-10 2021-07-10 (TEL) STLMLC STLMLC [id number] Co mmon 00:00:00 00:00:00 [facility] 2021-07-04 2021-07-04 (TEL) STLMLC STLMLC [id number] Co mmon 00:00:00 00:00:00 [facility] 2021-06-26 2021-06-26 (TEL) STLMLC STLMLC [id number] Co mmon 00:00:00 00:00:00 [facility] 2021-05-29 2021-05-29 Outpatient STLMLC STLMLC [id number] Common 00:00:00 00:00:00 [facility] 2021-05-22 2021-05-22 Outpatient CURRY_S DMG SAMPSONG [id number] Devoted 05:13:00 05:13:00 0824 [facility] l [facility] 2021-05-22 2021-05-22 Outpatient STLMLC STLMLC [id number] Common 00:00:00 00:00:00 [facility] 2021-05-04 2021-05-04 Outpatient STLMLC STLMLC [id number] Common 00:00:00 00:00:00 [facility] 2021-04-30 2021-04-30 Outpatient STLMLC STLMLC [id number] Common 00:00:00 00:00:00 [facility] 2021-04-30 2021-04-30 Outpatient STLMLC STLMLC [id number] Common 00:00:00 00:00:00 [facility] 2021-04-06 2021-04-06 Outpatient STLMLC STLMLC [id number] Common 00:00:00 00:00:00 [facility] 2021-01-29 2021-01-29 Outpatient DMG SAMPSONG [id number] Devoted 06:02:00 06:02:00 0503 Medica l Group 2021-01-18 2021-01-18 Outpatient DMG [facility] [id number] 021 Devoted 12:00:00 12:00:00 0422 Medica l Group 2020-08-14 2020-08-14 Emergency [facility] 1.2.840.114 [id number] 14:12:00 15:54:00 Folannao Mayuri [place] 350.1.13.10 [place] 4.2.7.2.686 [place] [id number] 084 2020-08-14 2020-08-14 Emergency [facility] 1.2.840.114 [id number] Univers 14:12:00 15:54:00 Maríao F [place] 350.1.13.10 ity of [place] 4.2.7.2.686 [facility] [id number] [facility] [place] [address] Results Test Description Test Time [...] 33.7 g/dL 31.2-35.0 RDW-SD (test code = 60193-1) 45.5 fL 38.5-51.6 RDW-CV (test code = 788-0) 13.8 % 12.1-15.4 PLT (test code = 777-3) See_Comment [Au tomated message] The system which ge nerated this result transmit rajesh reference range: 150 - 32 8 10*3/?L. The reference range was not used to interpret th is result as normal/abnormal . MPV (test code = 38577-5) 8.7 fL 9.8-13.0 L NRBC/100 WBC (test code = See_Comment [ Automated message] The 7241569123) system which ge nerated this result transmit rajesh reference range: 0.0 - 10 .0 /100 WBCs. The reference r cuong was not used to interpr et this result as normal/abnor mal. NRBC x10^3 (test code = See_Comment [Au tomated message] The 3666472795) system which ge nerated this result transmit rajesh reference range: 10*3/?L. The reference range was not u sed to interpret this result as normal/abnormal . GRAN MAT (NEUT) % (test code 92.6 % = 770-8) IMM GRAN % (test code = 0.90 % 0748045027) LYMPH % (test code = 736-9) 5.3 % MONO % (test code = 5905-5) 0.6 % EOS % (test code = 713-8) 0.3 % BASO % (test code = 706-2) 0.3 % GRAN MAT x10^3(ANC) (test 9.61 10*3/uL 1.99-6.95 H code = 7867066152) IMM GRAN x10^3 (test code = 0.09 10*3/uL 0.00-0.06 H 3088000401) LYMPH x10^3 (test code = 0.55 10*3/uL 1.09-3.23 L 731-0) MONO x10^3 (test code = 0.06 10*3/uL 0.36-1.02 L 742-7) EOS x10^3 (test code = 0.03 10*3/uL 0.06-0.53 L 711-2) BASO x10^3 (test code = 0.03 10*3/uL 0.01-0.09 704-7) Lab Interpretation (test Abnormal code = 04918-1) [facility] 11:31:09 SALICYLATE<10mg/L10/20/2022 5:31 AM [facility] Range: ? Analgesic and Antipyretic Use ? 20- 100 mg/L ? ? Anti-Inflammatory Use ? 100-250 mg/L Toxic Range: ? Greater than 300 mg/LUnChildren[facility] Center PlanoETHANOL2023-01-22 11:31:04ALCOHOL<10mg/dL10/20/2022 5:31 AM [facility]<10 Oaglvpym60-835 Toxic>100 Depression of RELEASE COORDINATOR>400 Fatalities ReportedUnChildren's Medical Center PlanoACETAMINOPHEN 2022-10-20 11:30:59 Test Item Value Reference Range Interpretation Comments ACETAMINOP (test code = 10.0-30.0 L 7918307115) ISIDORO (test code = ISIDORO) Toxic: Greater than 200 ug/mL @ 4 hour post ingestion or greater than 50 ug/mL @ 12 hour post ingestion Lab Interpretation (test Abnormal code = 51858-0) [facility] Center[facility]. METABOLIC PANEL (85914)2022-10-20 11:26:11 Test Item Value Reference Range Interpretation Comments NA (test code = 135 mmol/L 135-145 8035894375) K (test code = 5.9 mmol/L 3.5-5.0 H 4285299674) CL (test code = 105 mmol/L 98-108 1263895904) CO2 TOTAL (test code = 21 mmol/L 23-31 L 6260039582) AGAP (test code = 2-16 7353922471) BUN (test code = 25 mg/dL 7-23 H 5710980179) GLUCOSE (test code = 127 mg/dL 70-110 H 8027006527) CREATININE (test code = 1.66 mg/dL 0.60-1.25 H 8906953532) TOTAL BILI (test code = 1.0 mg/dL 0.1-1.2 8357007592) CALCIUM (test code = 8.9 mg/dL 8.6-10.6 1648367826) T PROTEIN (test code = 7.9 g/dL 6.3-8.2 2362894270) ALBUMIN (test code = 4.6 g/dL 3.5-5.0 0816676759) ALK PHOS (test code = 134 U/L 34-122 H 6683308736) ALTv (test code = 30 U/L 5-50 1742-6) AST(SGOT) (test code = 45 U/L 13-40 H 7748043607) eGFR (test code = mL/min/1.73m2 5612878123) ISIDORO (test code = ISIDORO) Association of [...] tests). Lab Interpretation Abnormal (test code = 48658-5) [facility] METABOLIC PANEL (NA, K, CL, CO2, GLUCOSE, BUN, CREATININE, CA)2022-08-30 18:07:32 Test Item Value Reference Range Interpretation Comments NA (test code = 143 mmol/L 135-145 3725198704) K (test code = 4.1 mmol/L 3.5-5.0 4401304038) CL (test code = 115 mmol/L 98-108 H 0678762840) CO2 TOTAL (test code = 19 mmol/L 23-31 L 4463917834) AGAP (test code = 2-16 9137445195) BUN (test code = 33 mg/dL 7-23 H 8440050199) GLUCOSE (test code = 66 mg/dL 70-110 L 9831304537) CREATININE (test code = 1.99 mg/dL 0.60-1.25 H 8330737704) CALCIUM (test code = 8.3 mg/dL 8.6-10.6 L 5811208724) eGFR (test code = mL/min/1.73m2 8835486779) ISIDORO (test code = ISIDORO) Association of [...] tests). Lab Interpretation Abnormal (test code = 49137-2) [facility] CenterTROPONIN [id number] 15:44:49 Test Item Value Reference Interpretation Comments Range TROPONIN I (test 0.004 ng/mL See_Comment [Automated code = 4205172343) message] The system which generated this result [...] biotin. Lab Interpretation Normal (test code = 72928-5) [facility] CenterETHANOL2022-12-02 15:27:10 ALCOHOL<10mg/dL08/30/2022 9:27 AM [facility]<10 Zipvcbts82-138 Toxic>100 Depression of RELEASE COORDINATOR>400 Fatalities ReportedUnChildren's Medical Center PlanoCOMP. METABOLIC PANEL ([id number]) 2022-08-30 15:24:23 Test Item Value Reference Range Interpretation Comments NA (test code = 144 mmol/L 135-145 7134923761) K (test code = 3.9 mmol/L 3.5-5.0 5404803857) CL (test code = 109 mmol/L 98-108 H 0357311041) CO2 TOTAL (test code = 22 mmol/L 23-31 L 6410999039) AGAP (test code = 2-16 1241293637) BUN (test code = 37 mg/dL 7-23 H 9513134448) GLUCOSE (test code = 86 mg/dL 70-110 4580756808) CREATININE (test code = 2.47 mg/dL 0.60-1.25 H 9456649421) TOTAL BILI (test code = 0.8 mg/dL 0.1-1.5 0367718088) CALCIUM (test code = 9.3 mg/dL 8.6-10.6 6425551102) T PROTEIN (test code = 7.0 g/dL 6.3-8.2 0750815521) ALBUMIN (test code = 4.4 g/dL 3.5-5.0 0567603659) ALK PHOS (test code = 119 U/L 34-122 4256472311) ALTv (test code = 22 U/L 5-50 1742-6) AST(SGOT) (test code = 38 U/L 13-40 6758641113) eGFR (test code = mL/min/1.73m2 1856004838) ISIDORO (test code = ISIDORO) Association of [...] tests). Lab Interpretation Abnormal (test code = 07029-4) [facility] CenterMAGNESIUM2022-12-02 15:24:23 Test Item Value Reference Range Interpretation Comments MAGNESIUM (test code = 6293941816) 2.1 mg/dL 1.7-2.4 Lab Interpretation (test code = Normal 21932-4) [facility] WITH [id number] 14:36:33 Test Item Value Reference Range Interpretation [...] RDW-SD (test code = 44.7 fL 38.5-51.6 30778-1) RDW-CV (test code = 13.2 % 12.1-15.4 788-0) PLT (test code = See_Comment [Automated 777-3) message] The sy stem which generated this result transmitted reference range : 150 - 328 10*3/ ?L. The reference r cuong was not used to interpret this result as normal/abnormal . MPV (test code = 9.7 fL 9.8-13.0 L 81946-7) NRBC/100 WBC (test See_Comment [Automat ed code = 5576518166) message] The system which generated this result transmitted reference range : 0.0 - 10.0 /100 WBCs. The refer ence range was not u sed to interpret th is result as normal/abnormal . NRBC x10^3 (test code See_Comment [Auto mated = 3889716541) message] The s [place] which generated this result transmitted reference range : 10*3/?L. The reference range was not used to interpret this result as normal/abnormal . GRAN MAT (NEUT) % 62.1 % (test code = 770-8) IMM GRAN % (test code 0.50 % = 9335359174) LYMPH % (test code = 22.6 % 736-9) MONO % (test code = 9.1 % 5905-5) EOS % (test code = 5.2 % 713-8) BASO % (test code = 0.5 % 706-2) GRAN MAT x10^3(ANC) 5.38 10*3/uL 1.99-6.95 (test code = 3446417611) IMM GRAN x10^3 (test 0.04 10*3/uL 0.00-0.06 code = 5215385866) LYMPH x10^3 (test code 1.96 10*3/uL 1.09-3.23 = 731-0) MONO x10^3 (test code 0.79 10*3/uL 0.36-1.02 = 742-7) EOS x10^3 (test code = 0.45 10*3/uL 0.06-0.53 711-2) BASO x10^3 (test code 0.04 10*3/uL 0.01-0.09 = 704-7) Lab Interpretation Abnormal (test code = 28115-5) [facility] [id number] 10:17:19 Test Item Value Reference Interpretation Comments Range TROPONIN I (test 0.007 ng/mL See_Comment [Automated code = 8890838690) message] The system which generated this result [...] biotin. Lab Interpretation Normal (test code = 99417-2) [facility]MAGNESIUM2022-08-26 10:05:38 Test Item Value Reference Range Interpretation Comments MAGNESIUM (test code = 2968986563) 2.1 mg/dL 1.7-2.4 Lab Interpretation (test code = Normal 38906-4) [facility]BA[facility] (NA, K, CL, CO2, GLUCOSE, BUN, CREATININE, CA)2022-05-24 10:05:18 Test Item Value Reference Range Interpretation Comments NA (test code = 136 mmol/L 135-145 7978109182) K (test code = 4.9 mmol/L 3.5-5 0523188866) CL (test code = 109 mmol/L 98-108 H 6466402332) CO2 TOTAL (test code = 21 mmol/L 23-31 L 1833232522) AGAP (test code = 2-16 9998057013) BUN (test code = 27 mg/dL 7-23 H 4696966616) GLUCOSE (test code = 89 mg/dL 70-110 1051214897) CREATININE (test code = 1.62 mg/dL 0.6-1.25 H 1329630201) CALCIUM (test code = 8.5 mg/dL 8.6-10.6 L 0352443163) eGFR (test code = mL/min/1.73m2 8058106066) ISIDORO (test code = ISIDORO) Association of [...] tests). Lab Interpretation Abnormal (test code = 88477-1) [facility] WITH [id number] 09:31:37 Test Item Value Reference Range Interpretation [...] RDW-SD (test code = 43.6 fL 38.5-51.6 91492-0) RDW-CV (test code = 13.1 % 12.1-15.4 788-0) PLT (test code = See_Comment [Automated 777-3) message] The sy stem which generated this result transmitted reference range : 150 - 328 10*3/ ?L. The reference r cuong was not used to interpret this result as normal/abnormal . MPV (test code = 9.3 fL 9.8-13 L 34918-4) NRBC/100 WBC (test See_Comment [Automat ed code = 4885228810) message] The system which generated this result transmitted reference range : 0.0 - 10.0 /100 WBCs. The refer ence range was not u sed to interpret th is result as normal/abnormal . NRBC x10^3 (test code See_Comment [Auto mated = 5898353010) message] The s ystem which generated this result transmitted reference range : 10*3/?L. The reference range was not used to interpret this result as normal/abnormal . GRAN MAT (NEUT) % 56.1 % (test code = 770-8) IMM GRAN % (test code 0.40 % = 9312400603) LYMPH % (test code = 27.1 % 736-9) MONO % (test code = 9.9 % 5905-5) EOS % (test code = 5.8 % 713-8) BASO % (test code = 0.7 % 706-2) GRAN MAT x10^3(ANC) 4.53 10*3/uL 1.99-6.95 (test code = 7140129862) IMM GRAN x10^3 (test 0.03 10*3/uL 0-0.06 code = 1192119986) LYMPH x10^3 (test code 2.19 10*3/uL 1.09-3.23 = 731-0) MONO x10^3 (test code 0.80 10*3/uL 0.36-1.02 = 742-7) EOS x10^3 (test code = 0.47 10*3/uL 0.06-0.53 711-2) BASO x10^3 (test code 0.06 10*3/uL 0.01-0.09 = 704-7) Lab Interpretation Abnormal (test code = 32103-9) [facility] CenterNader [id number] 04:35:45 Test Item Value Reference Interpretation Comments Range TROPONIN I (test 0.004 ng/mL See_Comment [Automated code = 8471679934) message] The system which generated this result [...] biotin. Lab Interpretation Normal (test code = 24566-7) [facility] CenterTransthoracic echo (TTE)2022-05-24 01:26:40 Test Item Value Reference Range Interpretation Comments Height (test code = in 4537100506) Weight (test code = lbs 6200131131) Systolic BP (test code = mmHg 5899917442) Diastolic BP (test code mmHg = 9178156356) Heart Rate (test code = bpm 3748024002) BSA (test code = 2.09 m2 5177681579) Ao root annulus (test 3.2 cm code = 8094732303) Ao root diam (test code 3.20 cm = 5428936662) Aortic root (test code = 3.2 cm 7829560678) LVOT diameter (test code 2.14 cm = 0268382459) LVIDD (test code = 5.00 cm 1069177508) IVS (test code = 1.31 cm 7153974193) Interventricular Septum 1.31 cm Diastolic Thickness by 2D (test code = 6308384) LVPWD (test code = 1.32 cm 2430381918) PW (test code = 1.32 cm 0.6-1.0 8554904349) EF(Teich) (test code = 61.30 % 4192838905) LVIDS (test code = 3.30 cm 7992679030) FS (test code = 33 % 9162634046) EF - 2D (test code = 61.30 % 37575712) LA size (test code = 3.6 cm 6217751362) TR Peak Roberto (test code = 261.9 cm/s 8247703577) Triscuspid Valve mmHg Regurgitation Peak Gradient (test code = 8807079707) LAV(MOD-sp4) (test code 59.10 mL = 5600139664) E wave decelartion time 0.23 s (test code = 3855676617) MV Peak E Roberto (test code 73.6 cm/s = 8545930244) MV stenosis pressure 1/2 70.2 ms time (test code = 4321616912) MV Peak A Roberto (test code 55.9 cm/s = 3828042186) E/A ratio (test code = ratio 9638081512) MV Prop V (test code = 58.20 cm/s 5480635379) MV E/e' septal (test 12.2 cm/s code = 8630962892) Tapse (test code = 2.9 cm 7222073756) LVOT stroke volume (test 103.80 cm3 code = 6101533099) LVOT peak roberto (test code 147.2 cm/s = 4330793689) LVOT mn grad (test code mmHg = 9161734392) AV LVOT peak gradient mmHg (test code = 5221803086) LVOT peak VTI (test code 28.7 cm = 7689698351) LV V1 mean (test code = 93.00 cm/s 7008708279) Aortic valve mean 119.4 cm/s velocity (test code = 4222608516) Ao peak roberto (test code = 165.6 cm/s 0127709955) Ao VTI (test code = 35.2 cm 1010471219) AV area by cont VTI 2.9 cm2 (test code = 3841168716) AV area peak roberto (test 3.2 cm2 code = 6152424144) Ao max PG (test code = 11.00 mm[Hg] 1918743696) AV peak gradient (test mmHg code = 6825783325) AV valve area (test code 2.90 cm2 = 8469464040) AV mean gradient (test mmHg code = 6855890107) Radiology Study observation (narrative) (test code = 19148-5) ISIDORO (test code = ISIDORO) Formatting of [...] 2D, color flow Doppler and spectral Doppler. [facility] CenterNADER [id number] 14:25:35 Test Item Value Reference Interpretation Comments Range TROPONIN I (test 0.009 ng/mL See_Comment [Automated code = 8877566387) message] The system which generated this result [...] biotin. Lab Interpretation Normal (test code = 10729-9) [facility] METABOLIC PANEL (89928)2022-05-23 14:14:13 Test Item Value Reference Range Interpretation Comments NA (test code = 143 mmol/L 135-145 7267601808) K (test code = 5.0 mmol/L 3.5-5 0393957466) CL (test code = 111 mmol/L 98-108 H 6955853902) CO2 TOTAL (test code = 20 mmol/L 23-31 L 1819494980) AGAP (test code = 2-16 8262772473) BUN (test code = 30 mg/dL 7-23 H 2770260670) GLUCOSE (test code = 85 mg/dL 70-110 0711513083) CREATININE (test code = 2.07 mg/dL 0.6-1.25 H 9533830050) TOTAL BILI (test code = 0.6 mg/dL 0.1-1.6 9568139832) CALCIUM (test code = 9.0 mg/dL 8.6-10.6 2287003698) T PROTEIN (test code = 7.2 g/dL 6.3-8.2 5218569471) ALBUMIN (test code = 4.4 g/dL 3.5-5 8137808653) ALK PHOS (test code = 121 U/L 34-122 6981149224) ALTv (test code = 23 U/L 5-50 1742-6) AST(SGOT) (test code = 29 U/L 13-40 7507434200) eGFR (test code = mL/min/1.73m2 5502123117) ISIDORO (test code = ISIDORO) Association of [...] tests). Lab Interpretation Abnormal (test code = 12624-4) [facility] WITH [id number] 14:11:10 Test Item Value Reference Range Interpretation Comments WBC (test code = See_Comment H [Automated 2390-2) message] The sy stem which generated this result transmitted reference range : 4.20 - 10.70 10*3/?L. The reference range was not used to interpret this result as normal/abnormal . RBC (test code = See_Comment [Automated 193-8) message] The sy stem which generated this [...] RDW-SD (test code = 42.9 fL 38.5-51.6 14526-3) RDW-CV (test code = 12.9 % 12.1-15.4 788-0) PLT (test code = See_Comment H [Automated 777-3) message] The sy stem which generated this result transmitted reference range : 150 - 328 10*3/ ?L. The reference r cuong was not used to interpret this result as normal/abnormal . MPV (test code = 9.0 fL 9.8-13 L 51462-4) NRBC/100 WBC (test See_Comment [Automat ed code = [id number]) message] The system which generated this result transmitted reference range : 0.0 - 10.0 /100 WBCs. The refer ence range was not u sed to interpret th is result as normal/abnormal . NRBC x10^3 (test code See_Comment [Auto mated = [id number]) message] The s ystem which generated this result transmitted reference range : 10*3/?L. The reference range was not used to interpret this result as normal/abnormal . GRAN MAT (NEUT) % 71.9 % (test code = 770-8) IMM GRAN % (test code 0.40 % = [id number]) LYMPH % (test code = 16.1 % 736-9) MONO % (test code = 8.4 % 5905-5) EOS % (test code = 2.5 % 713-8) BASO % (test code = 0.7 % 706-2) GRAN MAT x10^3(ANC) 8.20 10*3/uL 1.99-6.95 H (test code = [id number]) IMM GRAN x10^3 (test 0.05 10*3/uL 0-0.06 code = [id number]) LYMPH x10^3 (test code 1.84 10*3/uL 1.09-3.23 = 731-0) MONO x10^3 (test code 0.96 10*3/uL 0.36-1.02 = 742-7) EOS x10^3 (test code = 0.29 10*3/uL 0.06-0.53 711-2) BASO x10^3 (test code 0.08 10*3/uL 0.01-0.09 = 704-7) Lab Interpretation Abnormal (test code = 54107-9) [facility]"
[2023-07-03] MEDS ORDERED: NA CHLORIDE 0.9% 1,000 ML ONE (11:59)
[2023-07-03] MEDS ORDERED: CEFEPIME 1 GM/VIAL ONE (12:00)
[2023-07-03] MEDS ORDERED: NA CHLORIDE 0.9% 500 ML ONE (12:00)
[2023-07-03] MEDS ORDERED: NA CHLORIDE 0.9% 100 ML ONE (12:00)
[2023-07-03 12:11] LABS: Specific Gravity 1.025 (1.005-1.030); Urine Bacteria None Seen /HPF (<20); Urine Bilirubin NEGATIVE (Negative); Urine Blood Negative (Negative); Urine Clarity Clear (Clear); Urine Color Light-Yellow (Yellow); Urine Glucose NEGATIVE (Negative); Urine Mucus Slight /HPF (None Seen); Urine Protein TRACE (Negative); Urine RBC <5 /HPF (None Seen); Urine Urobilinogen Normal (Normal)
--- NOTE | 2023-07-03 12:37 | RAD REPORT ---
EXAM DESCRIPTION: CT - Head Brain Wo Cont - 07/03/2023 12:27 pm CLINICAL HISTORY: HEADACHE COMPARISON: Head angio dated 11/24/2022; Ct Stroke Brain Wo Cont dated 11/24/2022; Chest Abd Pelvis Wo Con dated 07/03/2023 TECHNIQUE: Noncontrast head CT images were obtained without IV contrast. Multiplanar reformats were generated and reviewed. All CT scans are performed using dose optimization technique as appropriate and may include automated exposure control or mA/KV adjustment according to patient size. FINDINGS: No intracranial hemorrhage, mass, or edema. Midline structures are unremarkable. Normal ventricular caliber for age. Patchy areas of hypodensity in the right frontal and parietal lobes white matter are stable, suggesti ve of sequelae of remote ischemia. Zarate-white matter differentiation is preserved, without evidence o f acute infarct. No abnormal extra-axial fluid collections. Mastoid air cells and visualized portions of the paranasal sinuses are clear. No acute bony findings. IMPRESSION: No evidence of an acute intracranial process. Stable chronic findings as above.
--- NOTE | 2023-07-03 12:54 | RAD REPORT ---
EXAM DESCRIPTION: RAD - Chest Single View - 07/03/2023 12:46 pm CLINICAL HISTORY: COUGH Chest pain. COMPARISON: Chest Single View dated 06/26/2023; Chest Single View dated 06/25/2023; Chest Single View dated 11/24/2022; Chest Single View dated 10/19/2022 FINDINGS: Portable technique limits examination quality. The lungs are grossly clear. The heart is normal in size. No displaced fractures. IMPRESSION: No acute intrathoracic process suspected.
--- NOTE | 2023-07-03 12:55 | RAD REPORT ---
EXAM DESCRIPTION: CT - Chest Abd Pelvis Wo Con - 07/03/2023 12:27 pm CLINICAL HISTORY: Cough;Abdominal distention COMPARISON: Chest For Pe Angio dated 05/01/2021; CTANGIO CHEST FOR PE dated 05/30/2013; CTANGIO CHEST FO R PE dated 05/09/2013; THORAX WO CONTRAST dated 08/14/2012; Abdomen Pelvis Wo Contrast dated 06/25/20 TECHNIQUE: Thin axial CT images of the chest, abdomen, and pelvis, performed without IV contrast. Mu ltiplanar reformats were generated and reviewed. . All CT scans are performed using dose optimization technique as appropriate and may include automated exposure control or mA/KV adjustment according to patient size. FINDINGS: The lungs show no focal airspace opacities, apart from bibasilar mild atelectasis. Subpleu ral 4 millimeter left lower lobe nodule on axial image 51, and 5 millimeter left lower lobe nodule on axial image 45 are stable.No pleural or pericardial effusion.No intrathoracic adenopathy. The liver, spleen, pancreas, adrenal glands and kidneys are within normal limits. No bowel obstruction, free air, free fluid or abscess. Surgical clips at the cecal bulb probably rela rajesh sequelae of appendicectomy. Mild wall prominence of the urinary bladder. Nondistention limits evaluation. No pathologic lymphadenopathy in the abdomen or pelvis. No worrisome osseous finding. Grade 1 anterolisthesis of L4 over L5, stable. IMPRESSION: Mild wall prominence of the urinary bladder. Nondistention limits evaluation. Please cor relate with urinalysis results to exclude ongoing cystitis. No other acute findings in the chest, abdomen, and pelvis. Stable findings as above.
[2023-07-03] MEDS ORDERED: HYDRALAZINE HCL 20 MG/ML VIAL ONE (13:54)
[2023-07-03] MEDS ORDERED: AMLODIPINE 10 MG TAB ONE (13:55)
[2023-07-03] MEDS ORDERED: hydroCHLOROthiazide 25 MG TAB ONE (13:55)
[2023-07-03 14:00] LABS: Protime INR 0.95
[2023-07-03 14:02] LABS: Absolute Lymphocytes (CBC) 2.1 K/uL (0.7-4.9); Hematocrit 39.6 % (39.6-49.0); Lymphocytes % 21.6 % (15.3-44.8); MCV 93.5 fL (80-100); MPV 6.6 fL (7.6-11.3); Platelets 357 thou/uL (152-406); RBC Red Blood Cell Count 4.24 M/uL (4.33-5.43)
[2023-07-03 14:17] LABS: Albumin 3.9 g/dL (3.4-5.0); Bilirubin Direct 0.1 mg/dL (0-0.2); Bilirubin Indirect, Calculated 0.2 mg/dL (0.2-0.8); Bilirubin Total 0.3 mg/dL (0.2-1.0); Magnesium 2.2 mg/dL (1.6-2.4); Potassium 4.5 mEq/L (3.5-5.1); Protein, Total 8.1 g/dL (6.4-8.2); Troponin High Sensitivity 15.9 pg/mL (<58.9)
--- NOTE | 2023-07-03 14:44 | ER ---
Nurse's Notes [facility] Name: Wood Jj Age: 63 yrs Sex: Male : 1960 Arrival Date: 07/03/2023 Time: 11:19 Bed 15 Private MD: Diagnosis: Tobacco abuse counseling;Tobacco use;Essential (primary) hypertension;Other chronic cystitis;Unspecified kidney failure-renal insufficency Presentation: 07/03 11:26 Chief complaint: Patient states: Pt reports being sent by Dr. Ross for blood ld1 infection. C/O pain in right upper abdomen, N/V since this morning, cough and headache. Coronavirus screen: At this time, the client does not indicate any symptoms associated with coronavirus-19. Ebola Screen: No symptoms or risks identified at this time. Risk Assessment: Do you want to hurt yourself or someone else? Patient reports no desire to harm self or others. Onset of symptoms was July 03, 2023. 11:26 Method Of Arrival: Ambulatory ld1 11:26 Acuity: LISA 3 ld1 11:27 Initial Sepsis Screen: Does the patient meet any 2 criteria? No. Patient's initial ld1 sepsis screen is negative. Does the patient have a suspected source of infection? No. Patient's initial sepsis screen is negative. Triage Assessment: 11:26 General: Appears in no apparent distress. comfortable, Behavior is calm, cooperative, ld1 appropriate for age. Pain: Complains of pain in right upper quadrant Pain does not radiate. Pain currently is 8 out of 10 on a pain scale. Quality of pain is described as throbbing, Pain began 2-3 days ago. EENT: No signs and/or symptoms were reported regarding the EENT system. Neuro: Level of Consciousness is awake, alert, obeys commands, Oriented to person, place, time, situation. Cardiovascular: Capillary refill < 3 seconds Patient's skin is warm and dry. Respiratory: Airway is patent Respiratory effort is even, unlabored. GI: Abdomen is round non-distended, Reports upper abdominal pain, nausea, vomiting. : No signs and/or symptoms were reported regarding the genitourinary system. Derm: No signs and/or symptoms reported regarding the dermatologic system. Musculoskeletal: No signs and/or symptoms reported regarding the musculoskeletal system. Historical: - Allergies: 11:28 Alprazolam; ld1 11:28 Amitriptyline; ld1 11:28 amphetamine aspartate; ld1 11:28 Ativan; ld1 11:28 Benadryl; ld1 11:28 BENZODIAZEPINES; ld1 11:28 dextroamphetamine saccharate; ld1 11:28 amphetamine sulfate; ld1 11:28 diazepam; ld1 11:28 ketorolac tromethamine; ld1 11:28 Lorazepam; ld1 11:28 PENICILLINS; ld1 11:28 Trazodone; ld1 11:28 Valium; ld1 11:28 dextroamphetamine sulfate; ld1 11:28 Xanax; ld1 11:28 venom-wasp; ld1 11:28 venom-honey bee; ld1 - PMHx: 11:28 Hypertension; stroke; Hypercholesterolemia; drug abuse; Myocardial infarction; ld1 - PSHx: 11:28 Appendectomy; eye sx; Hemorrhoidectomy; Hernia sx; ld1 - Immunization history:: Adult Immunizations up to date. - Social history:: Smoking status: Patient reports the use of cigarette tobacco products, smokes one-half pack cigarettes per day, Patient/guardian denies using alcohol, street drugs. - Family history:: not pertinent. Screenin:31 [facility] ED Fall Risk Assessment (Adult) History of falling in the last 3 months, db including since admission No falls in past 3 months (0 pts) Score/Fall Risk Level 0 - 2 = Low Risk Oriented to surroundings, Maintained a safe environment. Abuse screen: Denies threats or abuse. Denies injuries from another. Nutritional screening: No deficits noted. Tuberculosis screening: No symptoms or risk factors identified. Assessment: 11:35 Reassessment: Patient appears in no apparent distress at this time. Patient and/or db family updated on plan of care and expected duration. Pain level reassessed. Patient is alert, oriented x 3, equal unlabored respirations, skin warm/dry/pink. PT AMBULATORY TO RESTROOM. 11:45 Reassessment: Patient appears in no apparent distress at this time. Patient and/or db family updated on plan of care and expected duration. Pain level reassessed. Patient is alert, oriented x 3, equal unlabored respirations, skin warm/dry/pink. General: Appears in no apparent distress. uncomfortable, Behavior is calm, cooperative. Pain: Complains of pain in abdomen and right upper quadrant. Neuro: Level of Consciousness is awake, alert, obeys commands, Oriented to person, place, time, situation. 12:32 Reassessment: PT IS IN CT. db 13:02 Reassessment: NOTIFIED LAB FOR BLOOD DRAW. PROVIDER UNABLE TO OBTAIN ULTRASOUND GUIDED db IV. 13:34 Reassessment: LAB TECHCNICIAN AT BEDSIDE FOR LAB DRAW. db 14:09 Reassessment: Patient appears in no apparent distress at this time. Patient and/or db family updated on plan of care and expected duration. Pain level reassessed. Patient is alert, oriented x 3, equal unlabored respirations, skin warm/dry/pink. 14:48 Reassessment: PATIENT PROVIDED FOOD. PENDING DC PAPERWORK. db Vital Signs: 11:27 BP 214 / 124; Pulse 58; Resp 18; Temp 98(O); Pulse Ox 97% on R/A; Weight 85.73 kg; ld1 Height 5 ft. 6 in. ; Pain 8/10; 12:05 BP 188 / 114; Pulse 53; Resp 18; Pulse Ox 97% on R/A; db 13:40 BP 197 / 101; Pulse 50; Resp 16; Pulse Ox 97% on R/A; db 14:00 BP 145 / 111; Pulse 57; Resp 18; Pulse Ox 97% on R/A; db 14:10 BP 139 / 95; Pulse 62; Resp 18; Pulse Ox 95% on R/A; db 14:22 BP 147 / 85; Pulse 57; Resp 18; Pulse Ox 94% on R/A; db 14:35 BP 129 / 84; Pulse 69; Resp 18; Pulse Ox 100% on R/A; db 11:27 Body Mass Index 30.51 (85.73 kg, 167.64 cm) ld1 11:27 Pain Scale: Adult ld1 ED Course: 11:22 Patient arrived in ED. mg5 11:23 Gurpreet Baxter MD is Attending Physician. diego 11:26 Arm band placed on right wrist. ld1 11:27 Triage completed. ld1 11:39 Ashley Donato, RN is Primary Nurse. db 12:15 Missed attempt(s): 20 gauge in right antecubital area. Bleeding controlled, band aid db applied, catheter tip intact. 12:20 Missed attempt(s): 20 gauge in left antecubital area. Bleeding controlled, band aid db applied, catheter tip intact. 12:29 CT Chest Abdomen Pelvis W/O Contrast In Process Unspecified. EDMS 12:29 CT Head Brain wo Cont In Process Unspecified. EDMS 12:47 XRAY Chest (1 view) In Process Unspecified. EDMS 13:35 Patient has correct armband on for positive identification. Bed in low position. Call db light in reach. Side rails up X 1. Client placed on continuous cardiac and pulse oximetry monitoring. NIBP monitoring applied. 13:46 Inserted saline lock: 22 gauge in left hand, using aseptic technique. Blood collected. iw 14:43 Reji Peguero MD is Referral Physician. diego 15:09 Provided Education on: DISCHARGE. db 15:09 No provider procedures requiring assistance completed. IV discontinued, intact, db bleeding controlled, No redness/swelling at site. Administered Medications: 11:53 CANCELLED (Duplicate Order): ns 0.9% 500 ml IV at bolus once diego 13:40 Drug: NS 0.9% IV 1000 ml IV at 125 ml/hr continuous Route: IV; Rate: 125 ml/hr; Site: db left hand; 15:10 Follow up: Response: No adverse reaction; IV Status: Completed infusion db 13:45 Drug: HydrALAZINE PO 25 mg PO once Route: PO; db 15:11 Follow up: Response: No adverse reaction db 13:45 Drug: Norvasc PO 10 mg PO once Route: PO; db 15:10 Follow up: Response: No adverse reaction db 13:49 Drug: hydrALAZINE IVP 10 mg IVP once Route: IVP; Site: left hand; db 15:11 Follow up: Response: No adverse reaction db 13:55 Drug: Cefepime IVPB 1 grams IVPB at 200 ml/hr once over 30 mins; (mix in NS 100 mL) db Route: IVPB; Rate: 200 ml/hr; Infused Over: 30 mins; Site: left hand; 15:10 Follow up: IV Status: Completed infusion; IV Intake: 100ml db 14:12 Drug: hydrALAZINE IVP 10 mg IVP once Route: IVP; Site: left hand; db 14:50 Follow up: Response: No adverse reaction db Medication: 12:31 VIS not applicable for this client. db Intake: 15:10 IV: 100ml; Total: 100ml. db Outcome: 14:43 Discharge ordered by . diego 15:09 Discharged to home ambulatory, nadeem 15:09 Condition: stable 15:09 Discharge instructions given to patient, Instructed on discharge instructions, follow up and referral plans. Prescriptions given X 3, 15:11 Patient left the ED. db Signatures: Dispatcher [employer] EDGurpreet Sanchez MD MD cha Williams, Irene, RN BRIGIDA iw Tanya Fuller RN RN ld1 Ashley Donato RN RN Marimar Saldaña mg5 Corrections: (The following items were deleted from the chart) 11:28 11:26 Chief complaint: Patient states: Pt reports being sent by Dr. Ross for blood ld1 infection. C/O pain in right upper abdomen, N/V since this morning. ld1
--- NOTE | 2023-07-03 14:44 | EDPHYS ---
Physician Documentation [facility] Name: Wood Jj Age: 63 yrs Sex: Male : 1960 Arrival Date: 07/03/2023 Time: 11:19 Bed 15 Private MD: ED Physician Gurpreet Baxter HPI: 07/03 12:41 This 63 yrs old Male presents to ER via Ambulatory with complaints of Sent By diego Kim For Sepsis. 12:41 sent by pcp. The patient or guardian reports cough, that is intermittent. Onset: The [facility] symptoms/episode began/occurred 2 day(s) ago. Severity of symptoms: At their worst the symptoms were mild, in the emergency department the symptoms are unchanged. Associated signs and symptoms: The patient has no apparent associated signs or symptoms. Severity of symptoms: At their worst the symptoms were mild in the emergency department the symptoms are unchanged. The patient has experienced similar episodes in the past, a few times. Historical: - Allergies: 11:28 Alprazolam; ld1 11:28 Amitriptyline; ld1 11:28 amphetamine aspartate; ld1 11:28 Ativan; ld1 11:28 Benadryl; ld1 11:28 BENZODIAZEPINES; ld1 11:28 dextroamphetamine saccharate; ld1 11:28 amphetamine sulfate; ld1 11:28 diazepam; ld1 11:28 ketorolac tromethamine; ld1 11:28 Lorazepam; ld1 11:28 PENICILLINS; ld1 11:28 Trazodone; ld1 11:28 Valium; ld1 11:28 dextroamphetamine sulfate; ld1 11:28 Xanax; ld1 11:28 venom-wasp; ld1 11:28 venom-honey bee; ld1 - PMHx: 11:28 Hypertension; stroke; Hypercholesterolemia; drug abuse; Myocardial infarction; ld1 - PSHx: 11:28 Appendectomy; eye sx; Hemorrhoidectomy; Hernia sx; ld1 - Immunization history:: Adult Immunizations up to date. - Social history:: Smoking status: Patient reports the use of cigarette tobacco products, smokes one-half pack cigarettes per day, Patient/guardian denies using alcohol, street drugs. - Family history:: not pertinent. ROS: 12:41 Constitutional: Negative for fever, chills, and weight loss, Eyes: Negative for injury, diego pain, redness, and discharge, ENT: Negative for injury, pain, and discharge, Neck: Negative for injury, pain, and swelling, Cardiovascular: Negative for chest pain, palpitations, and edema, Respiratory: Negative for shortness of breath, cough, wheezing, and pleuritic chest pain, Abdomen/GI: Negative for abdominal pain, nausea, vomiting, diarrhea, and constipation, Back: Negative for injury and pain, : Negative for injury, bleeding, discharge, and swelling, MS/Extremity: Negative for injury and deformity, Skin: Negative for injury, rash, and discoloration, Neuro: Negative for headache, weakness, numbness, tingling, and seizure, Psych: Negative for depression, anxiety, suicide ideation, homicidal ideation, and hallucinations, Allergy/Immunology: Negative for hives, rash, and allergies, Endocrine: Negative for neck swelling, polydipsia, polyuria, polyphagia, and marked weight changes, Hematologic/Lymphatic: Negative for swollen nodes, abnormal bleeding, and unusual bruising, Exam: 12:41 Constitutional: This is a well developed, well nourished patient who is awake, alert, diego and in no acute distress. Head/Face: Normocephalic, atraumatic. Eyes: Pupils equal round and reactive to light, extra-ocular motions intact. Lids and lashes normal. Conjunctiva and sclera are non-icteric and not injected. Cornea within normal limits. Periorbital areas with no swelling, redness, or edema. ENT: Nares patent. No nasal discharge, no septal abnormalities noted. Tympanic membranes are normal and external auditory canals are clear. Oropharynx with no redness, swelling, or masses, exudates, or evidence of obstruction, uvula midline. Mucous membranes moist. Neck: Trachea midline, no thyromegaly or masses palpated, and no cervical lymphadenopathy. Supple, full range of motion without nuchal rigidity, or vertebral point tenderness. No Meningismus. Chest/axilla: Normal chest wall appearance and motion. Nontender with no deformity. No lesions are appreciated. Cardiovascular: Regular rate and rhythm with a normal S1 and S2. No gallops, murmurs, or rubs. Normal PMI, no JVD. No pulse deficits. Respiratory: Lungs have equal breath sounds bilaterally, clear to auscultation and percussion. No rales, rhonchi or wheezes noted. No increased work of breathing, no retractions or nasal flaring. Abdomen/GI: Soft, non-tender, with normal bowel sounds. No distension or tympany. No guarding or rebound. No evidence of tenderness throughout. Back: No spinal tenderness. No costovertebral tenderness. Full range of motion. Male : Normal genitalia with no discharge or lesions. Skin: Warm, dry with normal turgor. Normal color with no rashes, no lesions, and no evidence of cellulitis. MS/ Extremity: Pulses equal, no cyanosis. Neurovascular intact. Full, normal range of motion. Neuro: Awake and alert, GCS 15, oriented to person, place, time, and situation. Cranial nerves II-XII grossly intact. Motor strength 5/5 in all extremities. Sensory grossly intact. Cerebellar exam normal. Normal gait. Psych: Awake, alert, with orientation to person, place and time. Behavior, mood, and affect are within normal limits. 12:41 ECG was reviewed by the Attending Physician. Vital Signs: 11:27 BP 214 / 124; Pulse 58; Resp 18; Temp 98(O); Pulse Ox 97% on R/A; Weight 85.73 kg; ld1 Height 5 ft. 6 in. ; Pain 8/10; 12:05 BP 188 / 114; Pulse 53; Resp 18; Pulse Ox 97% on R/A; db 13:40 BP 197 / 101; Pulse 50; Resp 16; Pulse Ox 97% on R/A; db 14:00 BP 145 / 111; Pulse 57; Resp 18; Pulse Ox 97% on R/A; db 14:10 BP 139 / 95; Pulse 62; Resp 18; Pulse Ox 95% on R/A; db 14:22 BP 147 / 85; Pulse 57; Resp 18; Pulse Ox 94% on R/A; db 14:35 BP 129 / 84; Pulse 69; Resp 18; Pulse Ox 100% on R/A; db 11:27 Body Mass Index 30.51 (85.73 kg, 167.64 cm) ld1 11:27 Pain Scale: Adult ld1 MDM: 11:23 Patient medically screened. [facility] 12:44 Differential Diagnosis Bronchitis Influenza Upper Respiratory Infection Sinusitis. Data [facility] reviewed: vital signs, nurses notes, lab test result(s), EKG, radiologic studies, CT scan, plain films. Consideration of Admission/Observation Escalation of care including admission/observation considered. I considered the following discharge prescriptions or medication management in the emergency department Medications were administered in the Emergency Department. See MAR. Independent interpretation of the following test(s) in the Emergency Department EKG: See my EKG interpretation above. Test considered but Not performed: Ultrasound no abd usg. Historians other than the Patient: pt well informed. Care significantly affected by the following chronic conditions: Hypertension, Chronic Kidney Disease, drugs, high cholesterol. 07/03 11:30 Order name: Basic Metabolic Panel; Complete Time: 14:30 07/03 11:30 Order name: CBC with Diff; Complete Time: 14:15 07/03 11:30 Order name: LFT's; Complete Time: 14:30 07/03 11:30 Order name: Magnesium; Complete Time: 14:30 07/03 11:30 Order name: NT PRO-BNP; Complete Time: 14:30 07/03 11:30 Order name: PT-INR; Complete Time: 14:15 07/03 11:30 Order name: Troponin HS; Complete Time: 14:31 07/03 11:30 Order name: Lipase; Complete Time: 14:30 diego 07/03 11:30 Order name: Urinalysis w/ reflexes; Complete Time: 12:41 07/03 11:30 Order name: Lactate w/ 2H reflex if indic.; Complete Time: 14:15 diego 07/03 11:30 Order name: Blood Culture Adult (2) 07/03 11:30 Order name: Flu; Complete Time: 13:11 07/03 11:30 Order name: XRAY Chest (1 view); Complete Time: 13:11 07/03 11:59 Order name: CT Chest Abdomen Pelvis W/O Contrast; Complete Time: 13:11 07/03 12:20 Order name: CT Head Brain wo Cont; Complete Time: 12:41 07/03 11:30 Order name: EKG; Complete Time: 11:31 07/03 11:30 Order name: Cardiac monitoring; Complete Time: 14:07 diego 07/03 11:30 Order name: EKG - Nurse/Tech; Complete Time: 14:07 07/03 11:30 Order name: IV Saline Lock; Complete Time: 14:07 07/03 11:30 Order name: Labs collected and sent; Complete Time: 14: [facility] 07/03 11:30 Order name: O2 Per Protocol; Complete Time: 14: [facility] 07/03 11:30 Order name: O2 Sat Monitoring; Complete Time: : [facility] EC:41 Rate is 52 beats/min. Rhythm is regular. QRS [place] is Normal. PA interval is normal. QRS diego interval is normal. QT interval is normal. No Q waves. T waves are Normal. No ST changes noted. Clinical impression: Sinus bradycardia and No evidence of ischemia. Interpreted by me. Reviewed by me. Administered Medications: 11:53 CANCELLED (Duplicate Order): ns 0.9% 500 ml IV at bolus once diego 13:40 Drug: NS 0.9% IV 1000 ml IV at 125 ml/hr continuous Route: IV; Rate: 125 ml/hr; Site: db left hand; 15:10 Follow up: Response: No adverse reaction; IV Status: Completed infusion db 13:45 Drug: HydrALAZINE PO 25 mg PO once Route: PO; db 15:11 Follow up: Response: No adverse reaction db 13:45 Drug: Norvasc PO 10 mg PO once Route: PO; db 15:10 Follow up: Response: No adverse reaction db 13:49 Drug: hydrALAZINE IVP 10 mg IVP once Route: IVP; Site: left hand; db 15:11 Follow up: Response: No adverse reaction db 13:55 Drug: Cefepime IVPB 1 grams IVPB at 200 ml/hr once over 30 mins; (mix in NS 100 mL) db Route: IVPB; Rate: 200 ml/hr; Infused Over: 30 mins; Site: left hand; 15:10 Follow up: IV Status: Completed infusion; IV Intake: 100ml db 14:12 Drug: hydrALAZINE IVP 10 mg IVP once Route: IVP; Site: left hand; db 14:50 Follow up: Response: No adverse reaction db Disposition Summary: 07/03/23 14:43 Discharge Ordered Notes: Location: Home diego Problem: new diego Symptoms: have improved diego Condition: Stable diego Diagnosis - Tobacco abuse counseling diego - Tobacco use diego - Essential (primary) hypertension diego - Other chronic cystitis diego - Unspecified kidney failure - renal insufficency diego Followup: diego - With: Private Physician - When: 2 - 3 days - Reason: Recheck today's complaints, Continuance of care, Re-evaluation by your physician Followup: diego - With: Reji Pegureo MD - When: 2 - 3 days - Reason: Recheck today's complaints, Re-evaluation by your physician Discharge Instructions: - Discharge Summary Sheet diego - Hypertension, Adult diego - Steps to Quit Smoking diego - Health Risks of Smoking diego - Hypertension, Adult, [id number] diego - Health Maintenance, Male diego - Steps to Quit Smoking, [id number] diego - How to Take Your Blood Pressure, [id number] diego - Aspirin and Your Heart diego - Chronic Kidney Disease, Adult, [id number] diego - Managing Your Hypertension [facility] Forms: - Medication Reconciliation Form [facility] - Thank You Letter diego - Antibiotic Education diego - Prescription Opioid Use diego - Patient Portal Instructions diego - Leadership Thank You Letter diego Prescriptions: - Cephalexin 500 mg Oral capsule - take 1 capsule ORAL route every 8 hours for 7 days; 21 capsule; Refills: 0, [facility] Product Selection Permitted - Norvasc 10 mg Oral Tablet - take 1 tablet ORAL route once daily; 30 tablet; Refills: 0, Product Selection [facility] Permitted - Hydralazine 10 mg Oral tablet - take 1 tablet ORAL route 3 times per day with food; 90 tablet; Refills: 0, [facility] Product Selection Permitted Signatures: Dispatcher [employer] Gurpreet Mederos MD MD cha Sims, Lauren RN RN ld1 Ashley Donato RN RN db Corrections: (The following items were deleted from the chart) 11:53 11:30 NS 0.9% IV 500 ml IV at bolus once ordered. diego cortez
[2023-07-03 15:28] VITALS: TEMP 98
[2023-07-03 15:59] VITALS: BP 129/84; O2SAT 100
--- NOTE | 2023-07-03 16:56 | EKG ---
Test Date: 2023-07-03 Test Time: 12:08:24 Manufacturer: [employer] MEASUREMENT RESULTS: Intervals: Rate: 52 NH: 146 QRSD: 78 QT: 456 QTc: 424 [place]: P: 57 NH: 146 QRS: 20 T: 48 INTERPRETIVE STATEMENTS: Sinus bradycardia Otherwise normal ECG Compared to ECG 06/26/2023 02:17:52 No significant changes Electronically Signed On 07-03-23 16:55:38 CDT by Mino Tsai
== END 2023-07-03 15:11 | disposition home or self-care (01) ==
LOC: ER 11:19
DX: R05.9 Cough, unspecified (principal); Z71.6 Tobacco abuse counseling; Z72.0 Tobacco use; N30.20 Other chronic cystitis without hematuria; I10 Essential (primary) hypertension; N19 Unspecified kidney failure; I25.2 Old myocardial infarction; Z88.0 Allergy status to penicillin; Z88.5 Allergy status to narcotic agent; Z88.8 Allergy status to other drugs, medicaments and biological substances; Z91.030 Bee allergy status; Z91.038 Other insect allergy status
CPT/HCPCS: 96365; 93005; 87040 ×2; 85025; 81001; 80048; 36415; 83735; 85610; 80076; 83605; 84484; 83690; 83880; 87804 ×2; 70450; 71250; 74176; 71045; 96375; 99284; J0360; J7040; J7030; J0692

== ENCOUNTER → 2023-09-18 | Emergency (ER) | payer MEDICARE ==
[~2023-09-18] MED LIST changes: -CIPROFLOXACIN 400mg IV 400 MG/200 ML BAG IV ONE; -EPHEDRINE SULF 50 MG/ML VIAL ONE; -FENTANYL CITR 250 MCG/5 ML ONE; -GLYCOPYRROLATE 0.2 MG/ML SYR ONE; +HYDROCODONE/APAP 5/325 MG TAB ONE; -HYDROCODONE/APAP 7.5/325 MG TAB PO PRN; -LIDOCAINE 1% MPF 5 ML VIAL ONE; -MIDAZOLAM HCL 2 MG/2 ML INJ ONE; -Mastisol Adhesive Liq ONE; -NEOSTIGMINE 1 MG/ML -10 ML VIAL ONE; -ONDANSETRON 4 MG/2 ML VIAL ONE; -Phenylephrine HCl 10 MG/ML 1 ML VIAL ONE; -ROCURONIUM 50 MG/5 ML VIAL IV ONE; -Ringers Lactate 1,000 ML IV ONE; -dexAMETHasone 10 MG/ML VIAL ONE; -propofoL 200 MG/20 ML VIAL IV ONE
--- OUTSIDE RECORDS SUMMARY | 2023-09-18 21:08 | XMS REPORT | Continuity of Care Document ---
Author Name Unknown Address [address] [facility]. [address] [place] [address] [facility] Address [address] [facility] [address] [place] [address] Care Team Providers Care Coordinator Hotels Name Role Phone Cody Mahad M Primary Care Physician [phone] Rosana Red Attending Clinician Unavail able Mahad Ross Lexx Attending Clinician Unavailable VanAir[place]ale_B Attending Clinician Unavailable ZANE LIU Attending Clinician Unavailable ZANE LIU Attending Clinician Unavailable CHRISTEN OBANDO Attending Clinician Unavailable Christen Oabndo DO Attending Clinician [phone] GERTRUDE CHINCHILLA Attending Clinician Unavailab Gertrude Contreras DO Attending Clinician [phone] Cobb_T Attending Clinician Unavailable Simón Rollins RN Attending Clinician Unavail able CALLIE CUELLAR Attending Clinician Unavailable Callie Cuellar DO Attending Clinician [phone] Deshazo_T Attending Clinician Unavailable Doctor Unassigned, [place] Attending Clinician U navailable NEELA ALBARADO Attending Clinician Unavail able NEELA ALBARADO Attending Clinician Unavail able VIKASH GRIMALDO Attending Clinician Unavailable Silva Szymanski MD Attending Clinician Vikash Grimaldo MD Attending Clinician [phone] OW_Will Attending Clinician Unavailable PARAG_S Attending Clinician Unavailable Love Campbell Attending Clinician [phone] JoshuaAirsdale_B Admitting Clinician Unavailable CHRISTEN OBANDO Admitting Clinician Unavailable GERTRUDE CHINCHILLA Admitting Clinician Unavailab le Cobb_T Admitting Clinician Unavailable CALLIE CUELLAR Admitting Clinician Unavailable Callie Cuellar DO Admitting Clinician [phone] Deshazo_T Admitting Clinician Unavailable VIKASH GRIMALDO Admitting Clinician Unavailable Vikash Grimaldo MD Admitting Clinician [phone] MARIAH_Will Admitting Clinician Unavailable PARAG_Yajaira Admitting Clinician Unavailable Payers Payer Name Policy Type Policy Number Effective Date Expiration Date Source [employer] (MEDICARE REPLACEMENT HMO) [id number] 2021 00:00:00 [employer] ADVANTAGE PLAN [id number] 2020 00:00:00 [place] [id number] 2021 00:00:00 [place] [id number] 2021 00:00:00 [place] [id number] 2021 00:00:00 [place] [id number] 2021 00:00:00 [facility] Problems Condition Name Condition Details Condition Category Status Onset Date Resolution Date Last Treatment Date Treating Clinician Comments Source Chest pain, unspecifie d type Chest pain, unspecifie d type Disease Active 05-23 00:00: 00 [facility] Other hyperlipid emia Other hyperlipid emia Disease Active 05-23 00:00: 00 [facility] Drug abuse Drug abuse Disease Active 05-23 00:00: 00 [facility] Nonobstruc tive atheroscle rosis of coronary artery Nonobstruc tive atheroscle rosis of coronary artery Disease Active 05-23 00:00: 00 [facility] CAMDEN (acute kidney injury) CAMDEN (acute kidney injury) Disease Active 2020-09 00:00: 00 [facility] Esophageal spasm Esophageal spasm Disease Active 01-26 00:00: 00 [facility] A-fib A-fib Disease Active 01-20 00:00: 00 [facility] Atrial fibrillati on with RVR Atrial fibrillati on with RVR Disease Active 01-19 00:00: 00 [facility] Shortness of breath Shortness of breath Disease Active 01-19 00:00: 00 [facility] NSTEMI (non-ST elevated myocardial infarction ) NSTEMI (non-ST elevated myocardial infarction ) Disease Active 01-19 00:00: 00 [facility] Tobacco abuse Tobacco abuse Disease Active 01-19 00:00: 00 [facility] Family history of early CAD Family history of early CAD Disease Active 01-19 00:00: 00 [facility] Inguinal hernia Inguinal hernia Disease Active 2016-09 00:00: 00 [facility] Status epilepticu s Status epilepticu s Disease Active 01-22 00:00: 00 [facility] Seizure Seizure Disease Active 01-22 00:00: 00 [facility] [id number] Developmen shruthi venous anomaly, cerebral Problem [facility] [id number] Diverticul osis large intestine w/o perforatio n or abscess w/bleeding Problem [facility] [id number] Atheroscle rosis of abdominal aorta Problem [facility] [id number] Cerebral infarction , associated with systemic hypoxia or ischemia, chronic Problem [facility] [id number] Chronic kidney disease, stage 3b Problem [facility] [id number] Osteoarthr itis of lumbar spine, unspecifie d spinal osteoarthr itis complicati on status Problem [facility] Stroke Stroke Problem [facility] [id number] Incontinen ce of feces, unspecifie d fecal incontinen ce type Problem [facility] [id number] Primary insomnia Problem [facility] [id number] TIA (transient ischemic attack) Problem [facility] [id number] Aphasia Problem [facility] [id number] Body mass index [BMI] 31.0-31.9, adult Problem [facility] [id number] Other obesity due to excess calories Problem [facility] [id number] Mixed hyperlipid emia Problem [facility] [id number] Paroxysmal atrial fibrillati on Problem [facility] [id number] Vitamin D deficiency Problem [facility] [id number] Primary osteoarthr itis of left knee Problem [facility] [id number] Other chronic pain Problem [facility] [id number] Arthritis of knee, left Problem [facility] [id number] Essential hypertensi on Problem [facility] [id number] Tobacco use disorder, continuous Problem [facility] Allergic rhinitis Non-season al allergic rhinitis, unspecifie d chronicity , unspecifie d trigger Problem [facility] [id number] Primary osteoarthr itis of left shoulder Problem [facility] [id number] Incomplete tear of left rotator cuff, unspecifie d whether traumatic Problem [facility] [id number] Persistent migraine aura with cerebral infarction , intractabl e, with status migrainosu s Problem [facility] [id number] Narcolepsy due to underlying condition without cataplexy Problem [facility] Primary osteoarthr itis Primary osteoarthr itis involving multiple joints Problem [facility] Allergies, Adverse Reactions, Alerts Allergy Name Allergy Type Status Severity Reaction(s) Onset Date Inactive Date Treating Clinician Comments Source VARUN Hallman DRUG INGREDI Active Anaphylaxis 05-23 00:00: 00 [facility] Lorazepa m Propensi ty to adverse reaction s Active Anaphylaxis 05-23 00:00: 00 Pt has had multiple administr ations of ativan IV as well as EM without any negative reactions . [facility] BENADRYL ALLERGY DECONGES TANT DRUG Active High Swelling 2018-09 00:00: 00 [facility] Benadryl Allergy Deconges tant Propensi ty to adverse reaction s Active Swelling 2018-09 00:00: 00 [facility] DIAZEPAM DRUG INGREDI Active High Anaphylaxis 2016-09 00:00: 00 [facility] Diazepam Propensi ty to adverse reaction s to drug Active Anaphylaxis 2016-09 00:00: 00 Patient states it'll stop his heart within seconds of taking it. [facility] PENICILL INS Drug Class Active Anaphylaxis 0 05-13 00:00: 00 [facility] Penicill ins Propensi ty to adverse reaction s Active Anaphylaxis 0 05-13 00:00: 00 [facility] Penicill ins Propensi ty to adverse reaction s Active Anaphylaxis 0 05-13 00:00: 00 [facility] BEE STING / VENOM DRUG INGREDI Active Anaphylaxis 0 01-22 00:00: 00 [facility] Bee Sting / Venom Propensi ty to adverse reaction s to drug Active Anaphylaxis 0 01-22 00:00: 00 [facility] VENOM-WA SP DRUG INGREDI Active Anaphylaxis 0 01-22 00:00: 00 [facility] Venom-Wa sp Propensi ty to adverse reaction s Active Anaphylaxis 0 01-22 00:00: 00 [facility] penicill in G penicill in G Active swells throat shut [facility] diazepam diazepam Active Stops heart C ommon [facility] Social History Social Habit Start Date Stop Date Quantity Comments Source History of Tobacco Use Current Smoker [facility] Sex Assigned At [facility] Exposure to SARS-CoV-2 (event) 2023-01-18 00:00:00 2023-01-28 13:20:00 Not sure [facility] Alcohol intake 2022-10-21 00:00:00 2022-10-21 00:00:00 Current non-drinker of alcohol (finding) [facility] Cigarette pack-years 2021-09-27 00:00:00 2021-09-27 00:00:00 [facility] Tobacco use and exposure 2021-09-27 00:00:00 2021-09-27 00:00:00 Smokeless tobacco non-user [facility] Education 2021-09-27 00:00:00 2021-09-27 00:00:00 8 [facility] Cigarettes smoked current (pack per day) - Reported 2021-09-27 00:00:00 2021-09-27 00:00:00 [facility] Smoking Status Start Date Stop Date Source Smokes tobacco daily 2021-09-27 00:00:00 [facility] Medications Ordered Medication Name Filled Medication Name Start Date Stop Date Current Medication? Ordering Clinician Indication Dosage Frequency Signature (SIG) Comments Components Source Cyanocobala min Cyanocobala min 2022-09 0-10 00:00: 00 No [facility] Kenalog (Triamcinol one) Kenalog (Triamcinol one) 2022-09 0-10 00:00: 00 No 40[facility] Cyanocobala min Cyanocobala min 2022-09 0-10 00:00: 00 No 1000mL [facility] Kenalog (Triamcinol one) Kenalog (Triamcinol one) 2022-09 0-10 00:00: 00 No 40mg [facility] Cyanocobala min Cyanocobala min 2022-09 0-10 00:00: 00 No 1000mL [facility] Kenalog (Triamcinol one) Kenalog (Triamcinol one) 2022-09 0-10 00:00: 00 No 40mg [facility] Cyanocobala min Cyanocobala min 2022-09 0-10 00:00: 00 No 1000mL [facility] Kenalog (Triamcinol one) Kenalog (Triamcinol one) 2022-09 0-10 00:00: 00 No 40mg [facility] Cyanocobala min Cyanocobala min 2022-09 0-10 00:00: 00 No 1000mL [facility] Kenalog (Triamcinol one) Kenalog (Triamcinol one) 2022-09 0-10 00:00: 00 No 40mg [facility] Cyanocobala min Cyanocobala min 2022-09 0-10 00:00: 00 No 1000mL [facility] Kenalog (Triamcinol one) Kenalog (Triamcinol one) 2022-09 0-10 00:00: 00 No 40mg [facility] Cyanocobala min Cyanocobala min 2022-09 0-10 00:00: 00 No 1000mL [facility] Kenalog (Triamcinol one) Kenalog (Triamcinol one) 2022-09 0-10 00:00: 00 No 40mg [facility] Cyanocobala min Cyanocobala min 2022-09 0-10 00:00: 00 No 1000mL [facility] Kenalog (Triamcinol one) Kenalog (Triamcinol one) 2022-09 0-10 00:00: 00 No 40mg [facility] Cyanocobala min Cyanocobala min 2022-09 0-10 00:00: 00 No 1000mL [facility] Kenalog (Triamcinol one) Kenalog (Triamcinol one) 2022-09 0-10 00:00: 00 No 40mg [facility] Cyanocobala min Cyanocobala min 2022-09 0-10 00:00: 00 No 1000mL [facility] Kenalog (Triamcinol one) Kenalog (Triamcinol one) 2022-09 0-10 00:00: 00 No 40mg [facility] Kenalog (Triamcinol one) Kenalog (Triamcinol one) 0 8-17 00:00: 00 No 40mg [facility] Cyanocobala min Cyanocobala min 0 8-17 00:00: 00 No 1000mL [facility] Kenalog (Triamcinol one) Kenalog (Triamcinol one) 0 8-17 00:00: 00 No 40mg [facility] Cyanocobala min Cyanocobala min 0 8-17 00:00: 00 No 1000mL [facility] Kenalog (Triamcinol one) Kenalog (Triamcinol one) 0 8- 00:00: 00 No 40mg [facility] Cyanocobala min Cyanocobala min 0 8-17 00:00: 00 No 1000mL [facility] Kenalog (Triamcinol one) Kenalog (Triamcinol one) 0 8- 00:00: 00 No 40mg [facility] Cyanocobala min Cyanocobala min 0 8- 00:00: 00 No 1000mL [facility] Kenalog (Triamcinol one) Kenalog (Triamcinol one) 0 8- 00:00: 00 No 40mg [facility] Cyanocobala min Cyanocobala min 0 8-17 00:00: 00 No 1000mL [facility] Kenalog (Triamcinol one) Kenalog (Triamcinol one) 0 8-17 00:00: 00 No 40mg [facility] Cyanocobala min Cyanocobala min 0 8-17 00:00: 00 No 1000mL [facility] Kenalog (Triamcinol one) Kenalog (Triamcinol one) 0 8-17 00:00: 00 No 40mg [facility] Cyanocobala min Cyanocobala min 0 8-17 00:00: 00 No 1000mL [facility] Kenalog (Triamcinol one) Kenalog (Triamcinol one) 0 8-17 00:00: 00 No 40mg [facility] Cyanocobala min Cyanocobala min 2022-0 8-17 00:00: 00 No 1000mL [facility] Kenalog (Triamcinol one) Kenalog (Triamcinol one) 0 8- 00:00: 00 No 40mg [facility] Cyanocobala min Cyanocobala min 0 8- 00:00: 00 No 1000mL [facility] Kenalog (Triamcinol one) Kenalog (Triamcinol one) 0 8- 00:00: 00 No 40mg [facility] Cyanocobala min Cyanocobala min 0 8-17 00:00: 00 No 1000mL [facility] Kenalog (Triamcinol one) Kenalog (Triamcinol one) 0 8- 00:00: 00 No 40mg [facility] Cyanocobala min Cyanocobala min 0 05-15 00:00: 00 No 1000mL [facility] Kenalog (Triamcinol one) Kenalog (Triamcinol one) 0 8-17 00:00: 00 No 40mg [facility] Cyanocobala min Cyanocobala min 0 8-17 00:00: 00 No 1000mL [facility] Kenalog (Triamcinol one) Kenalog (Triamcinol one) 0 8-17 00:00: 00 No 40mg [facility] Cyanocobala min Cyanocobala min 2022-0 8-17 00:00: 00 No 1000mL [facility] Kenalog (Triamcinol one) Kenalog (Triamcinol one) 0 - 00:00: 00 No 40mg [facility] Cyanocobala min Cyanocobala min 0 -17 00:00: 00 No 1000mL [facility] Kenalog (Triamcinol one) Kenalog (Triamcinol one) 0 8- 00:00: 00 No 40mg [facility] Cyanocobala min Cyanocobala min 0 -17 00:00: 00 No 1000mL [facility] Kenalog (Triamcinol one) Kenalog (Triamcinol one) 0 - 00:00: 00 No 40mg [facility] Cyanocobala min Cyanocobala min 0 - 00:00: 00 No 1000mL [facility] Kenalog (Triamcinol one) Kenalog (Triamcinol one) 0 02-12 00:00: 00 No 40mg [facility] Cyanocobala min Cyanocobala min 0 17 00:00: 00 No 1000mL [facility] Kenalog (Triamcinol one) Kenalog (Triamcinol one) 0 02-12 00:00: 00 No 40mg [facility] Cyanocobala min Cyanocobala min 0 -17 00:00: 00 No 1000mL [facility] Kenalog (Triamcinol one) Kenalog (Triamcinol one) 0 02-12 00:00: 00 No 40mg [facility] Cyanocobala min Cyanocobala min 0 -17 00:00: 00 No 1000mL [facility] Kenalog (Triamcinol one) Kenalog (Triamcinol one) 0 -17 00:00: 00 No 40mg [facility] Cyanocobala min Cyanocobala min 0 5-17 00:00: 00 No 1000mL [facility] Kenalog (Triamcinol one) Kenalog (Triamcinol one) 0 02-12 00:00: 00 No 40mg [facility] Cyanocobala min Cyanocobala min 0 02-12 00:00: 00 No 1000mL [facility] Kenalog (Triamcinol one) Kenalog (Triamcinol one) 0 02-12 00:00: 00 No 40mg [facility] Cyanocobala min Cyanocobala min 0 02-12 00:00: 00 No 1000mL [facility] Kenalog (Triamcinol one) Kenalog (Triamcinol one) 0 02-12 00:00: 00 No 40mg [facility] Cyanocobala min Cyanocobala min 0 02-12 00:00: 00 No 1000mL [facility] Kenalog (Triamcinol one) Kenalog (Triamcinol one) 0 02-12 00:00: 00 No 40mg [facility] Cyanocobala min Cyanocobala min 0 02-12 00:00: 00 No 1000mL [facility] Kenalog (Triamcinol one) Kenalog (Triamcinol one) 0 02-12 00:00: 00 No 40mg [facility] Cyanocobala min Cyanocobala min 0 02-12 00:00: 00 No 1000mL [facility] Kenalog (Triamcinol one) Kenalog (Triamcinol one) 0 02-12 00:00: 00 No 40mg [facility] Cyanocobala min Cyanocobala min 0 02-12 00:00: 00 No 1000mL [facility] Kenalog (Triamcinol one) Kenalog (Triamcinol one) 0 02-12 00:00: 00 No 40mg [facility] Cyanocobala min Cyanocobala min 0 02-12 00:00: 00 No 1000mL [facility] Kenalog (Triamcinol one) Kenalog (Triamcinol one) 0 02-12 00:00: 00 No 40mg [facility] Cyanocobala min Cyanocobala min 0 02-12 00:00: 00 No 1000mL [facility] Kenalog (Triamcinol one) Kenalog (Triamcinol one) 0 02-12 00:00: 00 No 40mg [facility] Cyanocobala min Cyanocobala min 0 02-12 00:00: 00 No 1000mL [facility] Kenalog (Triamcinol one) Kenalog (Triamcinol one) 02-12 00:00: 00 No 40mg [facility] Cyanocobala min Cyanocobala min 02-12 00:00: 00 No 1000mL [facility] hydrOXYzine (ATARAX) tablet 25 mg 01-28 18:45: 00 01-28 18:51 :00 No 25mg 25 mg, Oral, ONCE, 1 dose, On Fri01/28/23 at 1345, VANNA [facility] traMADol HCl 50 MG traMADol HCl 50 MG 01-27 00:00: 00 No 1{table t_as_ne eded} traMADol HCl 50 MG Bupivicaine [place] Bupivicaine [place] 12-11 00:00: 00 No 5mL [facility] Kenalog (Triamcinol one) Kenalog (Triamcinol one) 15 00:00: 00 No 1mL [facility] Bupivicaine [place] Bupivicaine [place] 15 00:00: 00 No 5mL [facility] Kenalog (Triamcinol one) Kenalog (Triamcinol one) 0 3-15 00:00: 00 No 1mL [facility] Bupivicaine [place] Bupivicaine [place] 0 3-15 00:00: 00 No 5mL [facility] Kenalog (Triamcinol one) Kenalog (Triamcinol one) 0 3-15 00:00: 00 No 1mL [facility] Bupivicaine [place] Bupivicaine [place] 0 3-15 00:00: 00 No 5mL [facility] Kenalog (Triamcinol one) Kenalog (Triamcinol one) 0 3-15 00:00: 00 No 1mL [facility] Bupivicaine [place] Bupivicaine [place] 0 3-15 00:00: 00 No 5mL [facility] Kenalog (Triamcinol one) Kenalog (Triamcinol one) 0 3-15 00:00: 00 No 1mL [facility] Bupivicaine [place] Bupivicaine [place] 0 3-15 00:00: 00 No 5mL [facility] Kenalog (Triamcinol one) Kenalog (Triamcinol one) 0 3-15 00:00: 00 No 1mL [facility] Bupivicaine [place] Bupivicaine [place] 0 3-15 00:00: 00 No 5mL [facility] Kenalog (Triamcinol one) Kenalog (Triamcinol one) 0 3-15 00:00: 00 No 1mL [facility] Bupivicaine [place] Bupivicaine [place] 2022-0 3-15 00:00: 00 No 5mL [facility] Kenalog (Triamcinol one) Kenalog (Triamcinol one) 0 3-15 00:00: 00 No 1mL [facility] Bupivicaine [place] Bupivicaine [place] 0 3-15 00:00: 00 No 5mL [facility] Kenalog (Triamcinol one) Kenalog (Triamcinol one) 0 3-15 00:00: 00 No 1mL [facility] Bupivicaine [place] Bupivicaine [place] 2022-0 3-15 00:00: 00 No 5mL [facility] Kenalog (Triamcinol one) Kenalog (Triamcinol one) 0 3-15 00:00: 00 No 1mL [facility] Bupivicaine [place] Bupivicaine [place] 0 3-15 00:00: 00 No 5mL [facility] Kenalog (Triamcinol one) Kenalog (Triamcinol one) 0 3-15 00:00: 00 No 1mL [facility] Bupivicaine [place] Bupivicaine [place] 0 3-15 00:00: 00 No 5mL [facility] Kenalog (Triamcinol one) Kenalog (Triamcinol one) 0 3-15 00:00: 00 No 1mL [facility] Bupivicaine [place] Bupivicaine [place] 0 3-15 00:00: 00 No 5mL [facility] Kenalog (Triamcinol one) Kenalog (Triamcinol one) 0 3-15 00:00: 00 No 1mL [facility] Bupivicaine [place] Bupivicaine [place] 0 3-15 00:00: 00 No 5mL [facility] Kenalog (Triamcinol one) Kenalog (Triamcinol one) 0 3-15 00:00: 00 No 1mL [facility] Bupivicaine [place] Bupivicaine [place] 2022-0 3-15 00:00: 00 No 5mL [facility] Kenalog (Triamcinol one) Kenalog (Triamcinol one) 0 3-15 00:00: 00 No 1mL [facility] Bupivicaine [place] Bupivicaine [place] 0 3-15 00:00: 00 No 5mL [facility] Kenalog (Triamcinol one) Kenalog (Triamcinol one) 0 3-15 00:00: 00 No 1mL [facility] Kenalog (Triamcinol one) Kenalog (Triamcinol one) 0 2-16 00:00: 00 No 40mg [facility] Bupivicaine [place] Bupivicaine [place] 0 2-16 00:00: 00 No 2.5mg [facility] Kenalog (Triamcinol one) Kenalog (Triamcinol one) 0 2-16 00:00: 00 No 1mL [facility] [facility] Kenalog (Triamcinol one) Kenalog (Triamcinol one) 0 2-16 00:00: 00 No 40mg [facility] Bupivicaine [place] Bupivicaine [place] 0 2-16 00:00: 00 No 2.5mg [facility] Kenalog (Triamcinol one) Kenalog (Triamcinol one) 0 2-16 00:00: 00 No 1mL [facility] Kenalog (Triamcinol one) Kenalog (Triamcinol one) 0 2-16 00:00: 00 No 40mg [facility] Bupivicaine [place] Bupivicaine [place] 0 2-16 00:00: 00 No 2.5mg [facility] Kenalog (Triamcinol one) Kenalog (Triamcinol one) 0 2-16 00:00: 00 No 1mL [facility] Kenalog (Triamcinol one) Kenalog (Triamcinol one) 0 2-16 00:00: 00 No 40mg [facility] Bupivicaine [place] Bupivicaine [place] 0 16 00:00: 00 No 2.5mg [facility] Kenalog (Triamcinol one) Kenalog (Triamcinol one) 0 16 00:00: 00 No 1mL [facility] Kenalog (Triamcinol one) Kenalog (Triamcinol one) 0 -16 00:00: 00 No 40mg [facility] Bupivicaine [place] Bupivicaine [place] 16 00:00: 00 No 2.5mg [facility] Kenalog (Triamcinol one) Kenalog (Triamcinol one) 0 16 00:00: 00 No 1mL [facility] Kenalog (Triamcinol one) Kenalog (Triamcinol one) 0 -16 00:00: 00 No 40mg [facility] Bupivicaine [place] Bupivicaine [place] 16 00:00: 00 No 2.5mg [facility] Kenalog (Triamcinol one) Kenalog (Triamcinol one) 0 16 00:00: 00 No 1mL [facility] Kenalog (Triamcinol one) Kenalog (Triamcinol one) 0 16 00:00: 00 No 40mg [facility] Bupivicaine [place] Bupivicaine [place] 0 16 00:00: 00 No 2.5mg [facility] Kenalog (Triamcinol one) Kenalog (Triamcinol one) 0 -16 00:00: 00 No 1mL [facility] Kenalog (Triamcinol one) Kenalog (Triamcinol one) 0 2-16 00:00: 00 No 40mg [facility] Bupivicaine [place] Bupivicaine [place] 0 -16 00:00: 00 No 2.5mg [facility] Kenalog (Triamcinol one) Kenalog (Triamcinol one) 0 2-16 00:00: 00 No 1mL [facility] Kenalog (Triamcinol one) Kenalog (Triamcinol one) 0 2-16 00:00: 00 No 40mg [facility] Bupivicaine [place] Bupivicaine [place] 0 2-16 00:00: 00 No 2.5mg [facility] Kenalog (Triamcinol one) Kenalog (Triamcinol one) 0 2-16 00:00: 00 No 1mL [facility] Kenalog (Triamcinol one) Kenalog (Triamcinol one) 0 2-16 00:00: 00 No 40mg [facility] Bupivicaine [place] Bupivicaine [place] 0 -16 00:00: 00 No 2.5mg [facility] Kenalog (Triamcinol one) Kenalog (Triamcinol one) 0 2-16 00:00: 00 No 1mL [facility] Kenalog (Triamcinol one) Kenalog (Triamcinol one) 0 2-16 00:00: 00 No 40mg [facility] Bupivicaine [place] Bupivicaine [place] 0 2-16 00:00: 00 No 2.5mg [facility] Kenalog (Triamcinol one) Kenalog (Triamcinol one) 0 2-16 00:00: 00 No 1mL [facility] Kenalog (Triamcinol one) Kenalog (Triamcinol one) 0 2-16 00:00: 00 No 40mg [facility] Bupivicaine [place] Bupivicaine [place] 2022-0 2-16 00:00: 00 No 2.5mg [facility] Kenalog (Triamcinol one) Kenalog (Triamcinol one) 16 00:00: 00 No 1mL [facility] traMADol HCl 50 MG traMADol HCl 50 MG 16 00:00: 00 No 1{table t_as_ne eded} traMADol HCl 50 MG Kenalog (Triamcinol one) Kenalog (Triamcinol one) 2-16 00:00: 00 No 1mL [facility] Kenalog (Triamcinol one) Kenalog (Triamcinol one) 0 2-16 00:00: 00 No 40[facility] Bupivicaine [place] Bupivicaine [place] 16 00:00: 00 No 2.5mg [facility] Kenalog (Triamcinol one) Kenalog (Triamcinol one) 2-16 00:00: 00 No 40mg [facility] Bupivicaine [place] Bupivicaine [place] 16 00:00: 00 No 2.5mg [facility] Kenalog (Triamcinol one) Kenalog (Triamcinol one) 16 00:00: 00 No 1mL [facility] Kenalog (Triamcinol one) Kenalog (Triamcinol one) 0 -16 00:00: 00 No 40mg [facility] Bupivicaine [place] Bupivicaine [place] 0 -16 00:00: 00 No 2.5mg [facility] Kenalog (Triamcinol one) Kenalog (Triamcinol one) 0 -16 00:00: 00 No 1mL [facility] Kenalog (Triamcinol one) Kenalog (Triamcinol one) 0 2-16 00:00: 00 No 40mg [facility] Bupivicaine [place] Bupivicaine [place] 0 -16 00:00: 00 No 2.5mg [facility] Kenalog (Triamcinol one) Kenalog (Triamcinol one) 11-14 00:00: 00 No 1mL [facility] dextrose 50 % in water (D50W) injection 50 mL 2021-09 19:30: 00 08-30 18:42 :00 No 50mL 50 mL, Slow IV Push, ONCE, 1 dose, On Fri08/30/22 at 1330, Routine [facility] NaCl 0.9% (NS) bolus infusion 1,000 mL 2021-09 17:45: 00 08-30 19:38 :00 No 1000mL at 999 mL/hr, 1,000 mL, IV Infusion, ONCE, 1 dose, [facility] Fri08/30/22 [facility] 1145[facility] ([facility],000 mL 2021-09 16:00: 00 08-30 16:53 :00 No 1000mL at 999 mL/hr, 1,000 mL, IV Infusion, ONCE, 1 dose, [facility] Fri08/30/22 at 1000[facility] 0.9% (NS) bolus [facility] 1,000 mL 2021-09 14:45: 00 08-30 15:24 :00 No 1000mL at 999 mL/hr, 1,000 mL, IV Infusion, ONCE, 1 dose, On Fri08/30/22 at 0845, [facility] carvediloL 3.125 mg tablet 05-25 00:00: 00 06-25 04:59 :00 No [id number] 3.125mg Take 1 tablet by mouth in the morning and 1 tablet in the evening. Take with meals. Do all this for 30 days. [facility] carvediloL 3.125 mg tablet 05-25 00:00: 00 06-25 04:59 :00 No [id number] 3.125mg Take 1 tablet by mouth in the morning and 1 tablet in the evening. Take with meals. Do all this for 30 days. [facility] nicotine 21 mg/24 hr patch 05-24 17:45: 28 Yes 1{patch } Apply 1 Patch to area(s) every 24 (twenty-fo ur) hours. Patient reports he smokes 13 cigarettes per day. [facility] nicotine 21 mg/24 hr patch 05-24 17:45: 28 Yes 1{patch } Apply 1 Patch to area(s) every 24 (twenty-fo ur) hours. Patient reports he smokes 13 cigarettes per day. [facility] nicotine 21 mg/24 hr patch 05-24 17:45: 28 Yes 1{patch } Apply 1 Patch to area(s) every 24 (twenty-fo ur) hours. Patient reports he smokes 13 cigarettes per day. [facility] nicotine 21 mg/24 hr patch 05-24 17:45: 28 Yes 1{patch } Apply 1 Patch to area(s) every 24 (twenty-fo ur) hours. Patient reports he smokes 13 cigarettes per day. [facility] nicotine 21 mg/24 hr patch 05-24 17:45: 28 Yes 1{patch } Apply 1 Patch to area(s) every 24 (twenty-fo ur) hours. Patient reports he smokes 13 cigarettes per day. [facility] hydrOXYzine (ATARAX) tablet 10 mg 05-24 15:14: 53 Yes 10mg 10 mg, Oral, Q6HPRN, Starting on Fri05/24/22 at 1014, Until Discontinu ed, Routine, Anxiety, Itching [facility] polyethylen e glycol 3350 powder 17 g 05-24 14:00: 00 Yes 17g 17 g, Oral, DAILY, First dose on Fri05/24/22 at 0900, Until Discontinu ed, Routine [facility] pantoprazol e (PROTONIX) EC tablet 40 mg 05-24 14:00: 00 Yes 40mg 40 mg, Oral, DAILY, First dose on Fri05/24/22 at 0900, Until Discontinu ed, Routine [facility] lisinopriL (PRINIVIL,Z ESTRIL) tablet 2.5 mg 05-24 14:00: 00 Yes 2.5mg 2.5 mg, Oral, DAILY, First dose on Fri05/24/22 at 0900, Until Discontinu ed, Routine [facility] isosorbide mononitrate (IMDUR) 24 hr tablet 30 mg 05-24 14:00: 00 Yes 30mg 30 mg, Oral, DAILY, First dose on Fri05/24/22 at 0900, Until Discontinu ed, Routine [facility] atorvastati n (LIPITOR) tablet 80 mg 05-24 14:00: 00 Yes 80mg 80 mg, Oral, DAILY, First dose on Fri05/24/22 at 0900, Until Discontinu ed, Routine [facility] aspirin chewable tablet 81 mg 05-24 14:00: 00 Yes 81mg 81 mg, Oral, DAILY, First dose on Fri05/24/22 at 0900, Until Discontinu ed, Routine [facility] carvediloL (COREG) tablet 3.125 mg 05-24 13:00: 00 Yes 3.125mg 3.125 mg, Oral, BID MEALS, First dose on Fri05/24/22 at 0800, Until Discontinu ed, Routine [facility] NaCl 0.9% (NS) IV infusion 1,000 mL 05-24 01:30: 00 Yes 1000mL at 75 mL/hr, IV Infusion, CONTINUOUS , Starting on Fri05/23/22 at 2030, Until Discontinu ed, Routine [facility] sennosides- docusate sodium (SENOKOT-S) 8.6-50 mg per tablet 1 tablet 05-24 01:00: 00 Yes 1{tbl} 1 tablet, Oral, BID, First dose on Fri05/23/22 at 2000, Until Discontinu ed, Routine [facility] enoxaparin (LOVENOX) injection 90 mg 05-24 01:00: 00 Yes 1mg/kg 90 mg (rounded from 93 mg = 1 mg/kg ?93 kg), Subcutaneo us, Q12H, First dose (after last modificati on) on Fri05/23/22 at 2000, Until Discontinu ed, Routine [facility] nicotine (NICODERM) 21 mg/24 hr patch 1 Patch 05-24 00:45: 00 Yes 1{patch } 1 Patch, Topical, Administer over 24 Hours, Q24H, First dose on Fri05/23/22 at 1945, Until Discontinu ed, Routine [facility] hydrOXYzine 10 mg tablet 05-24 00:00: 00 06-24 04:59 :00 No [id number] 10mg Take 1 tablet by mouth every 6 (six) hours as needed for Anxiety for up to 30 days. [facility] hydrOXYzine 10 mg tablet 05-24 00:00: 00 06-24 04:59 :00 No [id number] 10mg Take 1 tablet by mouth every 6 (six) hours as needed for Anxiety for up to 30 days. [facility] enoxaparin (LOVENOX) injection 40 mg 05-23 22:00: 00 05-23 23:48 :16 No 40mg 40 mg, Subcutaneo us, DAILY, First dose on Fri05/23/22 at 1700, Until Discontinu ed, Routine [facility] ondansetron (ZOFRAN (PF)) injection 4 mg 05-23 19:56: 03 Yes 4mg 4 mg, Slow IV Push, Q6HPRN, Starting on Fri05/23/22 at 1456, Until Discontinu ed, Routine, Nausea and Vomiting (N/V) [facility] HYDROcodone -acetaminop hen (NORCO 5) 5-325 mg tablet 1 tablet 05-23 19:55: 52 05-25 19:54 :52 No 1{tbl} 1 tablet, Oral, Q6HPRN, Starting on Fri05/23/22 at 1455, Until 05/25/22 at 1454, Routine, Pain (scale 4-6) [facility] acetaminoph en (TYLENOL) tablet 650 mg 05-23 19:55: 49 Yes 650mg 650 mg, Oral, Q6HPRN, Starting on Nohemy 05/23/22 at 1455, Until Discontinu ed, Routine, Pain (scale 1-3) [facility] NaCl 0.9% (NS) bolus infusion 1,000 mL 05-23 18:45: 00 05-23 22:25 :22 No 1000mL at 999 mL/hr, 1,000 mL, IV Infusion, ONCE, 1 dose, On Nohemy 05/23/22 at 1345, [facility] NaCl 0.9% (NS) bolus infusion 1,000 mL 05-23 15:15: 00 05-23 18:21 :00 No 1000mL at 999 mL/hr, 1,000 mL, IV Infusion, ONCE, 1 dose, On Nohemy 05/23/22 at 1015, [facility] LORazepam (ATIVAN) injection 1 mg 05-23 13:30: 00 05-23 13:45 :00 No 1mg 1 mg, Slow IV Push, ONCE, 1 dose, On Nohemy 05/23/22 at 0830, STAT
Is the medication being used for status epilepticu s? No [facility] Eszopiclone 1 MG Eszopiclone 1 MG 01-22 00:00: 00 No 1{table t_immed iately_ before_ bedtime } QD Eszopiclon e 1 MG Eszopiclone 1 MG Eszopiclone 1 MG 01-22 00:00: 00 No 1{table t_immed iately_ before_ bedtime } QD Eszopiclon e 1 MG Eszopiclone 1 MG Eszopiclone 1 MG 01-22 00:00: 00 No 1{table t_immed iately_ before_ bedtime } QD Eszopiclon e 1 MG Zolpidem Tartrate 5 MG Zolpidem Tartrate 5 MG 2021-01-17 00:00: 00 No QD Zolpidem Tartrate 5 MG HYDROcodone -acetaminop hen (NORCO) 10-325 mg tablet 1- 00:00: 00 10-08 05:59 :00 No [id number] 1{tbl} Take 1 tablet by mouth every 8 (eight) hours as needed for Pain (scale 7-10) for up to 7 days. Indication s: acute pain [facility] Kenalog (Triamcinol one) Kenalog (Triamcinol one) 2020-09 0- 00:00: 00 No 40mg [facility] Kenalog (Triamcinol one) Kenalog (Triamcinol one) 2020-09 0 00:00: 00 No 40mg [facility] Kenalog (Triamcinol one) Kenalog (Triamcinol one) 2020-09 0- 00:00: 00 No 40mg [facility] Kenalog (Triamcinol one) Kenalog (Triamcinol one) 2020-09 0- 00:00: 00 No 40mg [facility] Kenalog (Triamcinol one) Kenalog (Triamcinol one) 2020-09 0 00:00: 00 No 40mg [facility] Kenalog (Triamcinol one) Kenalog (Triamcinol one) 2020-09 0 00:00: 00 No 40mg [facility] Kenalog (Triamcinol one) Kenalog (Triamcinol one) 2020-09 0- 00:00: 00 No 40mg [facility] Kenalog (Triamcinol one) Kenalog (Triamcinol one) 2020-09 0- 00:00: 00 No 40mg [facility] Kenalog (Triamcinol one) Kenalog (Triamcinol one) 2020-09 0- 00:00: 00 No 40mg [facility] Kenalog (Triamcinol one) Kenalog (Triamcinol one) 2020-09 0-13 00:00: 00 No 40mg [facility] Kenalog (Triamcinol one) Kenalog (Triamcinol one) 2020-09 0-13 00:00: 00 No 40mg [facility] Kenalog (Triamcinol one) Kenalog (Triamcinol one) 2020-09 0-13 00:00: 00 No 40mg [facility] Kenalog (Triamcinol one) Kenalog (Triamcinol one) 2020-09 0-13 00:00: 00 No 40mg [facility] Kenalog (Triamcinol one) Kenalog (Triamcinol one) 2020-09 0- 00:00: 00 No 40mg [facility] Kenalog (Triamcinol one) Kenalog (Triamcinol one) 2020-09 0- 00:00: 00 No 40mg [facility] Kenalog (Triamcinol one) Kenalog (Triamcinol one) 2020-09 0- 00:00: 00 No 40mg [facility] Kenalog (Triamcinol one) Kenalog (Triamcinol one) 2020-09 0- 00:00: 00 No 40mg [facility] Kenalog (Triamcinol one) Kenalog (Triamcinol one) 2020-09 0-13 00:00: 00 No 40mg [facility] Kenalog (Triamcinol one) Kenalog (Triamcinol one) 2020-09 0-13 00:00: 00 No 40mg [facility] Kenalog (Triamcinol one) Kenalog (Triamcinol one) 2020-09 0-13 00:00: 00 No 40mg [facility] Kenalog (Triamcinol one) Kenalog (Triamcinol one) 2020-09 0-13 00:00: 00 No 40mg [facility] Kenalog (Triamcinol one) Kenalog (Triamcinol one) 2020-09 0-13 00:00: 00 No 40mg [facility] Kenalog (Triamcinol one) Kenalog (Triamcinol one) 2020-09 0-13 00:00: 00 No 40mg [facility] Kenalog (Triamcinol one) Kenalog (Triamcinol one) 2020-09 0-13 00:00: 00 No 40mg [facility] Kenalog (Triamcinol one) Kenalog (Triamcinol one) 2020-09 0- 00:00: 00 No 40mg [facility] Kenalog (Triamcinol one) Kenalog (Triamcinol one) 2020-09 0 00:00: 00 No 40mg [facility] Kenalog (Triamcinol one) Kenalog (Triamcinol one) 2020-09 0- 00:00: 00 No 40mg [facility] Kenalog (Triamcinol one) Kenalog (Triamcinol one) 2020-09 0 00:00: 00 No 40mg [facility] Kenalog (Triamcinol one) Kenalog (Triamcinol one) 2020-09 0 00:00: 00 No 40mg [facility] Kenalog (Triamcinol one) Kenalog (Triamcinol one) 2020-09 0- 00:00: 00 No 40mg [facility] Benzonatate 200 MG Benzonatate 200 MG 2020-09 0 00:00: 00 07-21 00:00 :00 No 1{capsu le} TID Benzonatat e 200 MG Kenalog (Triamcinol one) Kenalog (Triamcinol one) 06-26 00:00: 00 No 40mg [facility] Bupivicaine [place] Bupivicaine [place] 06-26 00:00: 00 No 2.5mg [facility] Kenalog (Triamcinol one) Kenalog (Triamcinol one) 06-26 00:00: 00 No 40mg [facility] Bupivicaine [place] Bupivicaine [place] 0 06-26 00:00: 00 No 2.5mg [facility] Kenalog (Triamcinol one) Kenalog (Triamcinol one) 06-26 00:00: 00 No 40mg [facility] Bupivicaine [place] Bupivicaine [place] 0 06-26 00:00: 00 No 2.5mg [facility] Kenalog (Triamcinol one) Kenalog (Triamcinol one) 0 06-26 00:00: 00 No 40mg [facility] Bupivicaine [place] Bupivicaine [place] 06-26 00:00: 00 No 2.5mg [facility] Kenalog (Triamcinol one) Kenalog (Triamcinol one) 06-26 00:00: 00 No 40mg [facility] Bupivicaine [place] Bupivicaine [place] 06-26 00:00: 00 No 2.5mg [facility] Kenalog (Triamcinol one) Kenalog (Triamcinol one) 06-26 00:00: 00 No 40mg [facility] Bupivicaine [place] Bupivicaine [place] 0 06-26 00:00: 00 No 2.5mg [facility] Kenalog (Triamcinol one) Kenalog (Triamcinol one) 06-26 00:00: 00 No 40mg [facility] Bupivicaine [place] Bupivicaine [place] 0 06-26 00:00: 00 No 2.5mg [facility] Kenalog (Triamcinol one) Kenalog (Triamcinol one) 0 06-26 00:00: 00 No 40mg [facility] Bupivicaine [place] Bupivicaine [place] 0 06-26 00:00: 00 No 2.5mg [facility] Kenalog (Triamcinol one) Kenalog (Triamcinol one) 0 06-26 00:00: 00 No 40mg [facility] Bupivicaine [place] Bupivicaine [place] 0 06-26 00:00: 00 No 2.5mg [facility] Kenalog (Triamcinol one) Kenalog (Triamcinol one) 06-26 00:00: 00 No 40mg [facility] Bupivicaine [place] Bupivicaine [place] 0 06-26 00:00: 00 No 2.5mg [facility] Kenalog (Triamcinol one) Kenalog (Triamcinol one) 06-26 00:00: 00 No 40mg [facility] Bupivicaine [place] Bupivicaine [place] 0 06-26 00:00: 00 No 2.5mg [facility] Kenalog (Triamcinol one) Kenalog (Triamcinol one) 0 06-26 00:00: 00 No 40mg [facility] Bupivicaine [place] Bupivicaine [place] 0 06-26 00:00: 00 No 2.5mg [facility] Bupivicaine [place] Bupivicaine [place] 0 06-26 00:00: 00 No 2.5mg [facility] Kenalog (Triamcinol one) Kenalog (Triamcinol one) 0 06-26 00:00: 00 No 40mg [facility] Bupivicaine [place] Bupivicaine [place] 2020-0 06-26 00:00: 00 No 2.5mg [facility] Kenalog (Triamcinol one) Kenalog (Triamcinol one) 0 06-26 00:00: 00 No 40mg [facility] Bupivicaine [place] Bupivicaine [place] 2020-0 06-26 00:00: 00 No 2.5mg [facility] Kenalog (Triamcinol one) Kenalog (Triamcinol one) 0 06-26 00:00: 00 No 40mg [facility] Bupivicaine [place] Bupivicaine [place] 0 06-26 00:00: 00 No 2.5mg [facility] Kenalog (Triamcinol one) Kenalog (Triamcinol one) 0 06-26 00:00: 00 No 40mg [facility] Bupivicaine [place] Bupivicaine [place] 0 06-26 00:00: 00 No 2.5mg [facility] Kenalog (Triamcinol one) Kenalog (Triamcinol one) 06-26 00:00: 00 No 40mg [facility] Bupivicaine [place] Bupivicaine [place] 0 06-26 00:00: 00 No 2.5mg [facility] Kenalog (Triamcinol one) Kenalog (Triamcinol one) 0 06-26 00:00: 00 No 40mg [facility] Bupivicaine [place] Bupivicaine [place] 0 06-26 00:00: 00 No 2.5mg [facility] Kenalog (Triamcinol one) Kenalog (Triamcinol one) 0 06-26 00:00: 00 No 40mg [facility] Bupivicaine [place] Bupivicaine [place] 0 06-26 00:00: 00 No 2.5mg [facility] Kenalog (Triamcinol one) Kenalog (Triamcinol one) 0 06-26 00:00: 00 No 40mg [facility] Bupivicaine [place] Bupivicaine [place] 2020-0 06-26 00:00: 00 No 2.5mg [facility] Kenalog (Triamcinol one) Kenalog (Triamcinol one) 0 06-26 00:00: 00 No 40mg [facility] Bupivicaine [place] Bupivicaine [place] 0 06-26 00:00: 00 No 2.5mg [facility] Kenalog (Triamcinol one) Kenalog (Triamcinol one) 0 06-26 00:00: 00 No 40mg [facility] Bupivicaine [place] Bupivicaine [place] 0 06-26 00:00: 00 No 2.5mg [facility] Kenalog (Triamcinol one) Kenalog (Triamcinol one) 0 06-26 00:00: 00 No 40mg [facility] Bupivicaine [place] Bupivicaine [place] 0 06-26 00:00: 00 No 2.5mg [facility] Kenalog (Triamcinol one) Kenalog (Triamcinol one) 0 06-26 00:00: 00 No 40mg [facility] Bupivicaine [place] Bupivicaine [place] 0 06-26 00:00: 00 No 2.5mg [facility] Kenalog (Triamcinol one) Kenalog (Triamcinol one) 0 06-26 00:00: 00 No 40mg [facility] Bupivicaine [place] Bupivicaine [place] 0 06-26 00:00: 00 No 2.5mg [facility] Kenalog (Triamcinol one) Kenalog (Triamcinol one) 0 06-26 00:00: 00 No 40mg [facility] Bupivicaine [place] Bupivicaine [place] 0 06-26 00:00: 00 No 2.5mg [facility] Kenalog (Triamcinol one) Kenalog (Triamcinol one) 0 06-26 00:00: 00 No 40mg [facility] Kenalog (Triamcinol one) Kenalog (Triamcinol one) 06-26 00:00: 00 No 40mg [facility] Bupivicaine [place] Bupivicaine [place] 06-26 00:00: 00 No 2.5mg [facility] Kenalog (Triamcinol one) Kenalog (Triamcinol one) 06-26 00:00: 00 No 40mg [facility] Bupivicaine [place] Bupivicaine [place] 06-26 00:00: 00 No 2.5mg [facility] Kenalog (Triamcinol one) Kenalog (Triamcinol one) 06-26 00:00: 00 No 40mg [facility] Bupivicaine [place] Bupivicaine [place] 06-26 00:00: 00 No 2.5mg [facility] traMADol HCl 50 MG traMADol HCl 50 MG 06-26 00:00: 00 07-03 00:00 :00 No 1{table t_as_ne eded} traMADol HCl 50 MG Bupivicaine [place] Bupivicaine [place] 05-22 00:00: 00 No 2.5mg [facility] Kenalog (Triamcinol one) Kenalog (Triamcinol one) 05-22 00:00: 00 No 40mg [facility] Bupivicaine [place] Bupivicaine [place] 0 05-22 00:00: 00 No 2.5mg [facility] Kenalog (Triamcinol one) Kenalog (Triamcinol one) 0 05-22 00:00: 00 No 40mg [facility] Bupivicaine [place] Bupivicaine [place] 0 05-22 00:00: 00 No 2.5mg [facility] Kenalog (Triamcinol one) Kenalog (Triamcinol one) 0 05-22 00:00: 00 No 40mg [facility] Bupivicaine [place] Bupivicaine [place] 0 05-22 00:00: 00 No 2.5mg [facility] Kenalog (Triamcinol one) Kenalog (Triamcinol one) 0 05-22 00:00: 00 No 40mg [facility] Bupivicaine [place] Bupivicaine [place] 0 05-22 00:00: 00 No 2.5mg [facility] Kenalog (Triamcinol one) Kenalog (Triamcinol one) 0 05-22 00:00: 00 No 40mg [facility] Bupivicaine [place] Bupivicaine [place] 0 05-22 00:00: 00 No 2.5mg [facility] Kenalog (Triamcinol one) Kenalog (Triamcinol one) 0 05-22 00:00: 00 No 40mg [facility] Bupivicaine [place] Bupivicaine [place] 0 05-22 00:00: 00 No 2.5mg [facility] Kenalog (Triamcinol one) Kenalog (Triamcinol one) 0 05-22 00:00: 00 No 40mg [facility] Bupivicaine [place] Bupivicaine [place] 0 05-22 00:00: 00 No 2.5mg [facility] Kenalog (Triamcinol one) Kenalog (Triamcinol one) 0 05-22 00:00: 00 No 40mg [facility] Bupivicaine [place] Bupivicaine [place] 0 05-22 00:00: 00 No 2.5mg [facility] Kenalog (Triamcinol one) Kenalog (Triamcinol one) 0 05-22 00:00: 00 No 40mg [facility] Bupivicaine [place] Bupivicaine [place] 2020-0 05-22 00:00: 00 No 2.5mg [facility] Kenalog (Triamcinol one) Kenalog (Triamcinol one) 0 05-22 00:00: 00 No 40mg [facility] Bupivicaine [place] Bupivicaine [place] 0 05-22 00:00: 00 No 2.5mg [facility] Kenalog (Triamcinol one) Kenalog (Triamcinol one) 0 05-22 00:00: 00 No 40mg [facility] Bupivicaine [place] Bupivicaine [place] 0 05-22 00:00: 00 No 2.5mg [facility] Kenalog (Triamcinol one) Kenalog (Triamcinol one) 0 05-22 00:00: 00 No 40mg [facility] Bupivicaine [place] Bupivicaine [place] 0 05-22 00:00: 00 No 2.5mg [facility] Kenalog (Triamcinol one) Kenalog (Triamcinol one) 0 05-22 00:00: 00 No 40mg [facility] Bupivicaine [place] Bupivicaine [place] 0 05-22 00:00: 00 No 2.5mg [facility] Kenalog (Triamcinol one) Kenalog (Triamcinol one) 0 05-22 00:00: 00 No 40mg [facility] Bupivicaine [place] Bupivicaine [place] 2020-0 05-22 00:00: 00 No 2.5mg [facility] Kenalog (Triamcinol one) Kenalog (Triamcinol one) 0 05-22 00:00: 00 No 40mg [facility] Bupivicaine [place] Bupivicaine [place] 2020-0 05-22 00:00: 00 No 2.5mg [facility] Kenalog (Triamcinol one) Kenalog (Triamcinol one) 0 05-22 00:00: 00 No 40mg [facility] Bupivicaine [place] Bupivicaine [place] 2020-0 05-22 00:00: 00 No 2.5mg [facility] Kenalog (Triamcinol one) Kenalog (Triamcinol one) 2020-0 8 00:00: 00 No 40mg [facility] Bupivicaine [place] Bupivicaine [place] 2020-0 05-22 00:00: 00 No 2.5mg [facility] Kenalog (Triamcinol one) Kenalog (Triamcinol one) 0 05-22 00:00: 00 No 40mg [facility] Bupivicaine [place] Bupivicaine [place] 2020-0 05-22 00:00: 00 No 2.5mg [facility] Kenalog (Triamcinol one) Kenalog (Triamcinol one) 2020-0 05-22 00:00: 00 No 40mg [facility] Bupivicaine [place] Bupivicaine [place] 2020-0 05-22 00:00: 00 No 2.5mg [facility] Kenalog (Triamcinol one) Kenalog (Triamcinol one) 2020-0 05-22 00:00: 00 No 40mg [facility] Bupivicaine [place] Bupivicaine [place] 2020-0 05-22 00:00: 00 No 2.5mg [facility] Kenalog (Triamcinol one) Kenalog (Triamcinol one) 2020-0 05-22 00:00: 00 No 40mg [facility] Bupivicaine [place] Bupivicaine [place] 2020-0 05-22 00:00: 00 No 2.5mg [facility] Kenalog (Triamcinol one) Kenalog (Triamcinol one) 2020-0 8 00:00: 00 No 40mg [facility] Bupivicaine [place] Bupivicaine [place] 0 05-22 00:00: 00 No 2.5mg [facility] Kenalog (Triamcinol one) Kenalog (Triamcinol one) 0 05-22 00:00: 00 No 40mg [facility] Bupivicaine [place] Bupivicaine [place] 2020-0 05-22 00:00: 00 No 2.5mg [facility] Kenalog (Triamcinol one) Kenalog (Triamcinol one) 0 05-22 00:00: 00 No 40mg [facility] Bupivicaine [place] Bupivicaine [place] 0 05-22 00:00: 00 No 2.5mg [facility] Kenalog (Triamcinol one) Kenalog (Triamcinol one) 0 05-22 00:00: 00 No 40mg [facility] Bupivicaine [place] Bupivicaine [place] 0 05-22 00:00: 00 No 2.5mg [facility] Kenalog (Triamcinol one) Kenalog (Triamcinol one) 0 05-22 00:00: 00 No 40mg [facility] Bupivicaine [place] Bupivicaine [place] 0 05-22 00:00: 00 No 2.5mg [facility] Kenalog (Triamcinol one) Kenalog (Triamcinol one) 0 05-22 00:00: 00 No 40mg [facility] Bupivicaine [place] Bupivicaine [place] 0 05-22 00:00: 00 No 2.5mg [facility] Kenalog (Triamcinol one) Kenalog (Triamcinol one) 0 05-22 00:00: 00 No 40mg [facility] Bupivicaine [place] Bupivicaine [place] 2020-0 05-22 00:00: 00 No 2.5mg [facility] Kenalog (Triamcinol one) Kenalog (Triamcinol one) 05-22 00:00: 00 No 40mg [facility] Bupivicaine [place] Bupivicaine [place] 05-22 00:00: 00 No 2.5mg [facility] Kenalog (Triamcinol one) Kenalog (Triamcinol one) 05-22 00:00: 00 No 40mg [facility] atorvastati n 80 mg tablet 01-27 00:00: 00 Yes 80mg Take 1 tablet by mouth daily. [facility] pantoprazol e 40 mg EC tablet 01-27 00:00: 00 Yes 40mg Take 1 tablet by mouth daily. [facility] isosorbide mononitrate 30 mg 24 hr tablet 01-27 00:00: 00 Yes 30mg Take 1 tablet by mouth daily. [facility] atorvastati n 80 mg tablet 01-27 00:00: 00 Yes 80mg Take 1 tablet by mouth daily. [facility] pantoprazol e 40 mg EC tablet 01-27 00:00: 00 Yes 40mg Take 1 tablet by mouth daily. [facility] isosorbide mononitrate 30 mg 24 hr tablet 01-27 00:00: 00 Yes 30mg Take 1 tablet by mouth daily. [facility] atorvastati n 80 mg tablet 01-27 00:00: 00 Yes 80mg Take 1 tablet by mouth daily. [facility] pantoprazol e 40 mg EC tablet 01-27 00:00: 00 Yes 40mg Take 1 tablet by mouth daily. [facility] isosorbide mononitrate 30 mg 24 hr tablet 01-27 00:00: 00 Yes 30mg Take 1 tablet by mouth daily. [facility] atorvastati n 80 mg tablet 01-27 00:00: 00 Yes 80mg Take 1 tablet by mouth daily. [facility] pantoprazol e 40 mg EC tablet 01-27 00:00: 00 Yes 40mg Take 1 tablet by mouth daily. [facility] isosorbide mononitrate 30 mg 24 hr tablet 01-27 00:00: 00 Yes 30mg Take 1 tablet by mouth daily. [facility] atorvastati n 80 mg tablet 01-27 00:00: 00 Yes 80mg Take 1 tablet by mouth daily. [facility] pantoprazol e 40 mg EC tablet 01-27 00:00: 00 Yes 40mg Take 1 tablet by mouth daily. [facility] isosorbide mononitrate 30 mg 24 hr tablet 01-27 00:00: 00 Yes 30mg Take 1 tablet by mouth daily. [facility] atorvastati n 80 mg tablet 01-27 00:00: 00 Yes 80mg Take 1 tablet by mouth daily. [facility] pantoprazol e 40 mg EC tablet 01-27 00:00: 00 Yes 40mg Take 1 tablet by mouth daily. [facility] isosorbide mononitrate 30 mg 24 hr tablet 01-27 00:00: 00 Yes 30mg Take 1 tablet by mouth daily. [facility] atorvastati n 80 mg tablet 01-27 00:00: 00 Yes 80mg Take 1 tablet by mouth daily. [facility] pantoprazol e 40 mg EC tablet 01-27 00:00: 00 Yes 40mg Take 1 tablet by mouth daily. [facility] isosorbide mononitrate 30 mg 24 hr tablet 01-27 00:00: 00 Yes 30mg Take 1 tablet by mouth daily. [facility] metoprolol succinate XL 50 mg 24 hr tablet 01-26 00:00: 00 Yes 50mg Take 1 tablet by mouth 2 (two) times daily. [facility] aspirin 81 mg chewable tablet 01-26 00:00: 00 Yes 81mg Take 1 tablet by mouth daily. [facility] lisinopril 2.5 mg tablet 01-26 00:00: 00 Yes 2.5mg Take 1 tablet by mouth daily. [facility] zolpidem 5 mg tablet 01-26 00:00: 00 Yes 5mg Take 1 tablet by mouth at bedtime as needed for Insomnia. [facility] metoprolol succinate XL 50 mg 24 hr tablet 01-26 00:00: 00 Yes 50mg Take 1 tablet by mouth 2 (two) times daily. [facility] aspirin 81 mg chewable tablet 01-26 00:00: 00 Yes 81mg Take 1 tablet by mouth daily. [facility] lisinopril 2.5 mg tablet 01-26 00:00: 00 Yes 2.5mg Take 1 tablet by mouth daily. [facility] zolpidem 5 mg tablet 01-26 00:00: 00 Yes 5mg Take 1 tablet by mouth at bedtime as needed for Insomnia. [facility] aspirin 81 mg chewable tablet 01-26 00:00: 00 Yes 81mg Take 1 tablet by mouth daily. [facility] lisinopril 2.5 mg tablet 01-26 00:00: 00 Yes 2.5mg Take 1 tablet by mouth daily. [facility] aspirin 81 mg chewable tablet 01-26 00:00: 00 Yes 81mg Take 1 tablet by mouth daily. [facility] lisinopril 2.5 mg tablet 01-26 00:00: 00 Yes 2.5mg Take 1 tablet by mouth daily. [facility] aspirin 81 mg chewable tablet 01-26 00:00: 00 Yes 81mg Take 1 tablet by mouth daily. [facility] lisinopril 2.5 mg tablet 01-26 00:00: 00 Yes 2.5mg Take 1 tablet by mouth daily. [facility] aspirin 81 mg chewable tablet 01-26 00:00: 00 Yes 81mg Take 1 tablet by mouth daily. [facility] lisinopril 2.5 mg tablet 01-26 00:00: 00 Yes 2.5mg Take 1 tablet by mouth daily. [facility] aspirin 81 mg chewable tablet 01-26 00:00: 00 Yes 81mg Take 1 tablet by mouth daily. [facility] lisinopril 2.5 mg tablet 01-26 00:00: 00 Yes 2.5mg Take 1 tablet by mouth daily. [facility] metoprolol succinate XL 50 mg 24 hr tablet 01-26 00:00: 00 05-24 00:00 :00 No 50mg Take 1 tablet by mouth 2 (two) times daily. [facility] zolpidem 5 mg tablet 01-26 00:00: 00 05-24 00:00 :00 No 5mg Take 1 tablet by mouth at bedtime as needed for Insomnia. [facility] sulindac (CLINORIL) 200 mg tablet 05-13 00:00: 00 Yes 200mg Take 1 tablet by mouth 2 (two) times daily. [facility] sulindac (CLINORIL) 200 mg tablet 05-13 00:00: 00 Yes 200mg Take 1 tablet by mouth 2 (two) times daily. [facility] sulindac (CLINORIL) 200 mg tablet 05-13 00:00: 00 05-24 00:00 :00 No 200mg Take 1 tablet by mouth 2 (two) times daily. [facility] Metoprolol Succinate ER 50 MG Metoprolol Succinate ER 50 MG No Metoprolol Succinate ER 50 MG Vitamin D3 125 MCG (5000 UT) Vitamin D3 125 MCG (5000 UT) No 1{table t} QD Vitamin D3 125 MCG (5000 UT) Gabapentin 300 MG Gabapentin 300 MG No 1{capsu le} QD Gabapentin 300 MG Clopidogrel Bisulfate 75 MG Clopidogrel Bisulfate 75 MG No 1{table t} QD Clopidogre l Bisulfate 75 MG Lisinopril 2.5 MG Lisinopril 2.5 MG No 1{table t} QD Lisinopril 2.5 MG Iron Iron No Iron Magnesium Magnesium No Magnesium EpiPen EpiPen No EpiPen Aspirin 81 MG Aspirin 81 MG No 1{table t} QD Aspirin 81 MG Lisinopril 2.5 MG Lisinopril 2.5 MG No Lisinopril 2.5 MG Atorvastati n Calcium 40 MG Atorvastati n Calcium 40 MG No 1{table t} QD Atorvastat in Calcium 40 MG traMADol HCl 50 MG traMADol HCl 50 MG No 2{table ts} traMADol HCl 50 MG Metoprolol Succinate ER 50 MG Metoprolol Succinate ER 50 MG No Metoprolol Succinate ER 50 MG Folic Acid 1 MG Folic Acid 1 MG No 1{table t} QD Folic Acid 1 MG Metoprolol Succinate ER 50 MG Metoprolol Succinate ER 50 MG No 1{table t} BID Metoprolol Succinate ER 50 MG Vitamin C Vitamin C No Vitamin C Vitamin D3 125 MCG (5000 UT) Vitamin D3 125 MCG (5000 UT) No 1{table t} QD Vitamin D3 125 MCG (5000 UT) Gabapentin 300 MG Gabapentin 300 MG No 1{capsu le} QD Gabapentin 300 MG Clopidogrel Bisulfate 75 MG Clopidogrel Bisulfate 75 MG No 1{table t} QD Clopidogre l Bisulfate 75 MG Lisinopril 2.5 MG Lisinopril 2.5 MG No 1{table t} QD Lisinopril 2.5 MG Iron Iron No Iron Magnesium Magnesium No Magnesium EpiPen EpiPen No EpiPen Aspirin 81 MG Aspirin 81 MG No 1{table t} QD Aspirin 81 MG Lisinopril 2.5 MG Lisinopril 2.5 MG No Lisinopril 2.5 MG Metoprolol Succinate ER 50 MG Metoprolol Succinate ER 50 MG No 1{table t} BID Metoprolol Succinate ER 50 MG Atorvastati n Calcium 40 MG Atorvastati n Calcium 40 MG No Atorvastat in Calcium 40 MG Metoprolol Succinate ER 50 MG Metoprolol Succinate ER 50 MG No Metoprolol Succinate ER 50 MG Folic Acid 1 MG Folic Acid 1 MG No 1{table t} QD Folic Acid 1 MG traMADol HCl 50 MG traMADol HCl 50 MG No 2{table ts} traMADol HCl 50 MG Vitamin C Vitamin C No Vitamin C Lisinopril 2.5 MG Lisinopril 2.5 MG No 1{table t} QD Lisinopril 2.5 MG Folic Acid 1 MG Folic Acid 1 MG No 1{table t} QD Folic Acid 1 MG traMADol HCl 50 MG traMADol HCl 50 MG No 2{table ts} traMADol HCl 50 MG Vitamin C Vitamin C No Vitamin C Vitamin D3 125 MCG (5000 UT) Vitamin D3 125 MCG (5000 UT) No 1{table t} QD Vitamin D3 125 MCG (5000 UT) Aspirin 81 MG Aspirin 81 MG No 1{table t} QD Aspirin 81 MG Atorvastati n Calcium 40 MG Atorvastati n Calcium 40 MG No Atorvastat in Calcium 40 MG Iron Iron No Iron Gabapentin 300 MG Gabapentin 300 MG No 1{capsu le} QD Gabapentin 300 MG EpiPen EpiPen No EpiPen Clopidogrel Bisulfate 75 MG Clopidogrel Bisulfate 75 MG No 1{table t} QD Clopidogre l Bisulfate 75 MG Atorvastati n Calcium 40 MG Atorvastati n Calcium 40 MG No 1{table t} QD Atorvastat in Calcium 40 MG Metoprolol Succinate ER 50 MG Metoprolol Succinate ER 50 MG No 1{table t} QD Metoprolol Succinate ER 50 MG Magnesium Magnesium No Magnesium Lisinopril 2.5 MG Lisinopril 2.5 MG No 1{table t} QD Lisinopril 2.5 MG Folic Acid 1 MG Folic Acid 1 MG No 1{table t} QD Folic Acid 1 MG traMADol HCl 50 MG traMADol HCl 50 MG No 2{table ts} traMADol HCl 50 MG Vitamin C Vitamin C No Vitamin C Vitamin D3 125 MCG (5000 UT) Vitamin D3 125 MCG (5000 UT) No 1{table t} QD Vitamin D3 125 MCG (5000 UT) Aspirin 81 MG Aspirin 81 MG No 1{table t} QD Aspirin 81 MG Atorvastati n Calcium 40 MG Atorvastati n Calcium 40 MG No Atorvastat in Calcium 40 MG Iron Iron No Iron Gabapentin 300 MG Gabapentin 300 MG No 1{capsu le} QD Gabapentin 300 MG EpiPen EpiPen No EpiPen Clopidogrel Bisulfate 75 MG Clopidogrel Bisulfate 75 MG No 1{table t} QD Clopidogre l Bisulfate 75 MG Atorvastati n Calcium 40 MG Atorvastati n Calcium 40 MG No 1{table t} QD Atorvastat in Calcium 40 MG Metoprolol Succinate ER 50 MG Metoprolol Succinate ER 50 MG No 1{table t} QD Metoprolol Succinate ER 50 MG Magnesium Magnesium No Magnesium traMADol HCl 50 MG traMADol HCl 50 MG No 2{table ts} traMADol HCl 50 MG Metoprolol Succinate ER 50 MG Metoprolol Succinate ER 50 MG No 1{table t} QD Metoprolol Succinate ER 50 MG EpiPen EpiPen No EpiPen Lisinopril 2.5 MG Lisinopril 2.5 MG No 1{table t} QD Lisinopril 2.5 MG Atorvastati n Calcium 40 MG Atorvastati n Calcium 40 MG No Atorvastat in Calcium 40 MG Atorvastati n Calcium 40 MG Atorvastati n Calcium 40 MG No 1{table t} QD Atorvastat in Calcium 40 MG Clopidogrel Bisulfate 75 MG Clopidogrel Bisulfate 75 MG No 1{table t} QD Clopidogre l Bisulfate 75 MG Vitamin D3 125 MCG (5000 UT) Vitamin D3 125 MCG (5000 UT) No 1{table t} QD Vitamin D3 125 MCG (5000 UT) Magnesium Magnesium No Magnesium Vitamin C Vitamin C No Vitamin C Aspirin 81 MG Aspirin 81 MG No 1{table t} QD Aspirin 81 MG Iron Iron No Iron Folic Acid 1 MG Folic Acid 1 MG No 1{table t} QD Folic Acid 1 MG Gabapentin 300 MG Gabapentin 300 MG No 1{capsu le} BID Gabapentin 300 MG traMADol HCl 50 MG traMADol HCl 50 MG No 2{table ts} traMADol HCl 50 MG Metoprolol Succinate ER 50 MG Metoprolol Succinate ER 50 MG No 1{table t} QD Metoprolol Succinate ER 50 MG EpiPen EpiPen No EpiPen Lisinopril 2.5 MG Lisinopril 2.5 MG No 1{table t} QD Lisinopril 2.5 MG Atorvastati n Calcium 40 MG Atorvastati n Calcium 40 MG No Atorvastat in Calcium 40 MG Atorvastati n Calcium 40 MG Atorvastati n Calcium 40 MG No 1{table t} QD Atorvastat in Calcium 40 MG Clopidogrel Bisulfate 75 MG Clopidogrel Bisulfate 75 MG No 1{table t} QD Clopidogre l Bisulfate 75 MG Vitamin D3 125 MCG (5000 UT) Vitamin D3 125 MCG (5000 UT) No 1{table t} QD Vitamin D3 125 MCG (5000 UT) Magnesium Magnesium No Magnesium Vitamin C Vitamin C No Vitamin C Aspirin 81 MG Aspirin 81 MG No 1{table t} QD Aspirin 81 MG Iron Iron No Iron Folic Acid 1 MG Folic Acid 1 MG No 1{table t} QD Folic Acid 1 MG Gabapentin 300 MG Gabapentin 300 MG No 1{capsu le} BID Gabapentin 300 MG Clopidogrel Bisulfate 75 MG Clopidogrel Bisulfate 75 MG No 1{table t} QD Clopidogre l Bisulfate 75 MG Vitamin D3 125 MCG (5000 UT) Vitamin D3 125 MCG (5000 UT) No 1{table t} QD Vitamin D3 125 MCG (5000 UT) EpiPen EpiPen No EpiPen Metoprolol Succinate ER 50 MG Metoprolol Succinate ER 50 MG No 1{table t} QD Metoprolol Succinate ER 50 MG Atorvastati n Calcium 40 MG Atorvastati n Calcium 40 MG No Atorvastat in Calcium 40 MG Aspirin 81 MG Aspirin 81 MG No 1{table t} QD Aspirin 81 MG Atorvastati n Calcium 40 MG Atorvastati n Calcium 40 MG No 1{table t} QD Atorvastat in Calcium 40 MG Folic Acid 1 MG Folic Acid 1 MG No 1{table t} QD Folic Acid 1 MG Gabapentin 300 MG Gabapentin 300 MG No 1{capsu le} BID Gabapentin 300 MG traMADol HCl 50 MG traMADol HCl 50 MG No 2{table ts} traMADol HCl 50 MG Magnesium Magnesium No Magnesium Iron Iron No Iron Vitamin C Vitamin C No Vitamin C Lisinopril 2.5 MG Lisinopril 2.5 MG No Lisinopril 2.5 MG Vitamin D3 125 MCG (5000 UT) Vitamin D3 125 MCG (5000 UT) No 1{table t} QD Vitamin D3 125 MCG (5000 UT) EpiPen EpiPen No EpiPen Magnesium Magnesium No Magnesium Clopidogrel Bisulfate 75 MG Clopidogrel Bisulfate 75 MG No 1{table t} QD Clopidogre l Bisulfate 75 MG Gabapentin 300 MG Gabapentin 300 MG No 1{capsu le} BID Gabapentin 300 MG Aspirin 81 MG Aspirin 81 MG No 1{table t} QD Aspirin 81 MG Atorvastati n Calcium 40 MG Atorvastati n Calcium 40 MG No Atorvastat in Calcium 40 MG Lisinopril 2.5 MG Lisinopril 2.5 MG No Lisinopril 2.5 MG Metoprolol Succinate ER 50 MG Metoprolol Succinate ER 50 MG No 1{table t} QD Metoprolol Succinate ER 50 MG traMADol HCl 50 MG traMADol HCl 50 MG No 2{table ts} traMADol HCl 50 MG Lisinopril 2.5 MG Lisinopril 2.5 MG No 1{table t} QD Lisinopril 2.5 MG Atorvastati n Calcium 40 MG Atorvastati n Calcium 40 MG No 1{table t} QD Atorvastat in Calcium 40 MG Folic Acid 1 MG Folic Acid 1 MG No 1{table t} QD Folic Acid 1 MG Iron Iron No Iron Vitamin C Vitamin C No Vitamin C Atorvastati n Calcium 40 MG Atorvastati n Calcium 40 MG No Atorvastat in Calcium 40 MG Magnesium Magnesium No Magnesium Iron Iron No Iron Folic Acid 1 MG Folic Acid 1 MG No 1{table t} QD Folic Acid 1 MG Atorvastati n Calcium 40 MG Atorvastati n Calcium 40 MG No 1{table t} QD Atorvastat in Calcium 40 MG Clopidogrel Bisulfate 75 MG Clopidogrel Bisulfate 75 MG No 1{table t} QD Clopidogre l Bisulfate 75 MG Lisinopril 2.5 MG Lisinopril 2.5 MG No 1{table t} QD Lisinopril 2.5 MG Metoprolol Succinate ER 50 MG Metoprolol Succinate ER 50 MG No 1{table t} QD Metoprolol Succinate ER 50 MG traMADol HCl 50 MG traMADol HCl 50 MG No 2{table ts} traMADol HCl 50 MG Lisinopril 2.5 MG Lisinopril 2.5 MG No Lisinopril 2.5 MG Gabapentin 300 MG Gabapentin 300 MG No 1{capsu le} BID Gabapentin 300 MG Vitamin C Vitamin C No Vitamin C Aspirin 81 MG Aspirin 81 MG No 1{table t} QD Aspirin 81 MG EpiPen EpiPen No EpiPen Vitamin D3 125 MCG (5000 UT) Vitamin D3 125 MCG (5000 UT) No 1{table t} QD Vitamin D3 125 MCG (5000 UT) Atorvastati n Calcium 40 MG Atorvastati n Calcium 40 MG No Atorvastat in Calcium 40 MG Magnesium Magnesium No Magnesium Iron Iron No Iron Folic Acid 1 MG Folic Acid 1 MG No 1{table t} QD Folic Acid 1 MG Atorvastati n Calcium 40 MG Atorvastati n Calcium 40 MG No 1{table t} QD Atorvastat in Calcium 40 MG Clopidogrel Bisulfate 75 MG Clopidogrel Bisulfate 75 MG No 1{table t} QD Clopidogre l Bisulfate 75 MG Lisinopril 2.5 MG Lisinopril 2.5 MG No 1{table t} QD Lisinopril 2.5 MG Metoprolol Succinate ER 50 MG Metoprolol Succinate ER 50 MG No 1{table t} QD Metoprolol Succinate ER 50 MG traMADol HCl 50 MG traMADol HCl 50 MG No 2{table ts} traMADol HCl 50 MG Lisinopril 2.5 MG Lisinopril 2.5 MG No Lisinopril 2.5 MG Gabapentin 300 MG Gabapentin 300 MG No 1{capsu le} BID Gabapentin 300 MG Vitamin C Vitamin C No Vitamin C Aspirin 81 MG Aspirin 81 MG No 1{table t} QD Aspirin 81 MG EpiPen EpiPen No EpiPen Vitamin D3 125 MCG (5000 UT) Vitamin D3 125 MCG (5000 UT) No 1{table t} QD Vitamin D3 125 MCG (5000 UT) traMADol HCl 50 MG traMADol HCl 50 MG No 2{table ts} traMADol HCl 50 MG Atorvastati n Calcium 40 MG Atorvastati n Calcium 40 MG No Atorvastat in Calcium 40 MG Magnesium Magnesium No Magnesium Iron Iron No Iron Folic Acid 1 MG Folic Acid 1 MG No 1{table t} QD Folic Acid 1 MG Atorvastati n Calcium 40 MG Atorvastati n Calcium 40 MG No 1{table t} QD Atorvastat in Calcium 40 MG Clopidogrel Bisulfate 75 MG Clopidogrel Bisulfate 75 MG No 1{table t} QD Clopidogre l Bisulfate 75 MG Lisinopril 2.5 MG Lisinopril 2.5 MG No 1{table t} QD Lisinopril 2.5 MG Metoprolol Succinate ER 50 MG Metoprolol Succinate ER 50 MG No 1{table t} QD Metoprolol Succinate ER 50 MG traMADol HCl 50 MG traMADol HCl 50 MG No 2{table ts} traMADol HCl 50 MG Lisinopril 2.5 MG Lisinopril 2.5 MG No Lisinopril 2.5 MG Iron Iron No Iron Gabapentin 300 MG Gabapentin 300 MG No 1{capsu le} BID Gabapentin 300 MG Vitamin C Vitamin C No Vitamin C Aspirin 81 MG Aspirin 81 MG No 1{table t} QD Aspirin 81 MG EpiPen EpiPen No EpiPen Vitamin D3 125 MCG (5000 UT) Vitamin D3 125 MCG (5000 UT) No 1{table t} QD Vitamin D3 125 MCG (5000 UT) Vitamin D3 125 MCG (5000 UT) Vitamin D3 125 MCG (5000 UT) No 1{table t} QD Vitamin D3 125 MCG (5000 UT) Gabapentin 300 MG Gabapentin 300 MG No 1{capsu le} BID Gabapentin 300 MG Folic Acid 1 MG Folic Acid 1 MG No 1{table t} QD Folic Acid 1 MG Aspirin 81 MG Aspirin 81 MG No 1{table t} QD Aspirin 81 MG Clopidogrel Bisulfate 75 MG Clopidogrel Bisulfate 75 MG No 1{table t} QD Clopidogre l Bisulfate 75 MG Lisinopril 2.5 MG Lisinopril 2.5 MG No Lisinopril 2.5 MG Metoprolol Succinate ER 50 MG Metoprolol Succinate ER 50 MG No 1{table t} QD Metoprolol Succinate ER 50 MG Magnesium Magnesium No Magnesium Vitamin C Vitamin C No Vitamin C Iron Iron No Iron Vitamin D3 125 MCG (5000 UT) Vitamin D3 125 MCG (5000 UT) No 1{table t} QD Vitamin D3 125 MCG (5000 UT) EpiPen EpiPen No EpiPen Vitamin C Vitamin C No Vitamin C Atorvastati n Calcium 40 MG Atorvastati n Calcium 40 MG No Atorvastat in Calcium 40 MG traMADol HCl 50 MG traMADol HCl 50 MG No 2{table ts} traMADol HCl 50 MG EpiPen EpiPen No EpiPen Atorvastati n Calcium 40 MG Atorvastati n Calcium 40 MG No Atorvastat in Calcium 40 MG Magnesium Magnesium No Magnesium Montelukast Sodium 10 MG Montelukast Sodium 10 MG No Montelukas t Sodium 10 MG Atorvastati n Calcium 40 MG Atorvastati n Calcium 40 MG No Atorvastat in Calcium 40 MG Metoprolol Succinate ER 50 MG Metoprolol Succinate ER 50 MG No 1{table t} QD Metoprolol Succinate ER 50 MG Vitamin C Vitamin C No Vitamin C tiZANidine HCl tiZANidine HCl No tiZANidine HCl Gabapentin 300 MG Gabapentin 300 MG No 1{capsu le} BID Gabapentin 300 MG Levocetiriz ine Dihydrochlo ride 5 MG Levocetiriz ine Dihydrochlo ride 5 MG No 1{table t_in_th e_eveni ng} QD Levocetiri zine Dihydrochl oride 5 MG Clopidogrel Bisulfate 75 MG Clopidogrel Bisulfate 75 MG No 1{table t} QD Clopidogre l Bisulfate 75 MG EpiPen EpiPen No EpiPen Iron Iron No Iron Modafinil 200 MG Modafinil 200 MG No 1{table t_in_th e_morni ng} QD Modafinil 200 MG traMADol HCl 50 MG traMADol HCl 50 MG No 2{table ts} traMADol HCl 50 MG Aspirin 81 MG Aspirin 81 MG No 1{table t} QD Aspirin 81 MG DULoxetine HCl 40 MG DULoxetine HCl 40 MG No 1{capsu le} QD DULoxetine HCl 40 MG Lisinopril 2.5 MG Lisinopril 2.5 MG No Lisinopril 2.5 MG Folic Acid 1 MG Folic Acid 1 MG No 1{table t} QD Folic Acid 1 MG Vitamin D3 125 MCG (5000 UT) Vitamin D3 125 MCG (5000 UT) No 1{table t} QD Vitamin D3 125 MCG (5000 UT) Magnesium Magnesium No Magnesium Lisinopril 2.5 MG Lisinopril 2.5 MG No Lisinopril 2.5 MG Metoprolol Succinate ER 50 MG Metoprolol Succinate ER 50 MG No 1{table t} BID Metoprolol Succinate ER 50 MG Vitamin D3 125 MCG (5000 UT) Vitamin D3 125 MCG (5000 UT) No 1{table t} QD Vitamin D3 125 MCG (5000 UT) traMADol HCl 50 MG traMADol HCl 50 MG No 2{table ts} traMADol HCl 50 MG Vitamin C Vitamin C No Vitamin C Lisinopril 2.5 MG Lisinopril 2.5 MG No 1{table t} QD Lisinopril 2.5 MG Metoprolol Succinate ER 50 MG Metoprolol Succinate ER 50 MG No 1{table t} QD Metoprolol Succinate ER 50 MG Atorvastati n Calcium 40 MG Atorvastati n Calcium 40 MG No 1{table t} QD Atorvastat in Calcium 40 MG Lisinopril 2.5 MG Lisinopril 2.5 MG No 1{table t} QD Lisinopril 2.5 MG Vitamin D3 125 MCG (5000 UT) Vitamin D3 125 MCG (5000 UT) No 1{table t} QD Vitamin D3 125 MCG (5000 UT) traMADol HCl 50 MG traMADol HCl 50 MG No 2{table ts} traMADol HCl 50 MG Vitamin C Vitamin C No Vitamin C Lisinopril 2.5 MG Lisinopril 2.5 MG No 1{table t} QD Lisinopril 2.5 MG Metoprolol Succinate ER 50 MG Metoprolol Succinate ER 50 MG No 1{table t} QD Metoprolol Succinate ER 50 MG Atorvastati n Calcium 40 MG Atorvastati n Calcium 40 MG No 1{table t} QD Atorvastat in Calcium 40 MG Vitamin D3 125 MCG (5000 UT) Vitamin D3 125 MCG (5000 UT) No 1{table t} QD Vitamin D3 125 MCG (5000 UT) Vitamin C Vitamin C No Vitamin C Magnesium Magnesium No Magnesium Vitamin D3 125 MCG (5000 UT) Vitamin D3 125 MCG (5000 UT) No 1{table t} QD Vitamin D3 125 MCG (5000 UT) traMADol HCl 50 MG traMADol HCl 50 MG No 2{table ts} traMADol HCl 50 MG Vitamin C Vitamin C No Vitamin C traMADol HCl 50 MG traMADol HCl 50 MG No 2{table ts} traMADol HCl 50 MG Lisinopril 2.5 MG Lisinopril 2.5 MG No 1{table t} QD Lisinopril 2.5 MG Metoprolol Succinate ER 50 MG Metoprolol Succinate ER 50 MG No 1{table t} QD Metoprolol Succinate ER 50 MG Atorvastati n Calcium 40 MG Atorvastati n Calcium 40 MG No 1{table t} QD Atorvastat in Calcium 40 MG Atorvastati n Calcium 40 MG Atorvastati n Calcium 40 MG No Atorvastat in Calcium 40 MG Atorvastati n Calcium 40 MG Atorvastati n Calcium 40 MG No 1{table t} QD Atorvastat in Calcium 40 MG Vitamin D3 125 MCG (5000 UT) Vitamin D3 125 MCG (5000 UT) No 1{table t} QD Vitamin D3 125 MCG (5000 UT) traMADol HCl 50 MG traMADol HCl 50 MG No 2{table ts} traMADol HCl 50 MG Vitamin C Vitamin C No Vitamin C Lisinopril 2.5 MG Lisinopril 2.5 MG No 1{table t} QD Lisinopril 2.5 MG Metoprolol Succinate ER 50 MG Metoprolol Succinate ER 50 MG No 1{table t} QD Metoprolol Succinate ER 50 MG Atorvastati n Calcium 40 MG Atorvastati n Calcium 40 MG No 1{table t} QD Atorvastat in Calcium 40 MG Lisinopril 2.5 MG Lisinopril 2.5 MG No Lisinopril 2.5 MG Iron Iron No Iron tiZANidine HCl tiZANidine HCl No tiZANidine HCl Vitamin D3 125 MCG (5000 UT) Vitamin D3 125 MCG (5000 UT) No 1{table t} QD Vitamin D3 125 MCG (5000 UT) traMADol HCl 50 MG traMADol HCl 50 MG No 2{table ts} traMADol HCl 50 MG Vitamin C Vitamin C No Vitamin C Lisinopril 2.5 MG Lisinopril 2.5 MG No 1{table t} QD Lisinopril 2.5 MG Metoprolol Succinate ER 50 MG Metoprolol Succinate ER 50 MG No 1{table t} QD Metoprolol Succinate ER 50 MG Metoprolol Succinate ER 50 MG Metoprolol Succinate ER 50 MG No 1{table t} BID Metoprolol Succinate ER 50 MG Atorvastati n Calcium 40 MG Atorvastati n Calcium 40 MG No 1{table t} QD Atorvastat in Calcium 40 MG EpiPen EpiPen No EpiPen Vitamin D3 125 MCG (5000 UT) Vitamin D3 125 MCG (5000 UT) No 1{table t} QD Vitamin D3 125 MCG (5000 UT) traMADol HCl 50 MG traMADol HCl 50 MG No 2{table ts} traMADol HCl 50 MG Vitamin C Vitamin C No Vitamin C Lisinopril 2.5 MG Lisinopril 2.5 MG No 1{table t} QD Lisinopril 2.5 MG Metoprolol Succinate ER 50 MG Metoprolol Succinate ER 50 MG No 1{table t} QD Metoprolol Succinate ER 50 MG Atorvastati n Calcium 40 MG Atorvastati n Calcium 40 MG No 1{table t} QD Atorvastat in Calcium 40 MG Vitamin D3 125 MCG (5000 UT) Vitamin D3 125 MCG (5000 UT) No 1{table t} QD Vitamin D3 125 MCG (5000 UT) traMADol HCl 50 MG traMADol HCl 50 MG No 2{table ts} traMADol HCl 50 MG Vitamin C Vitamin C No Vitamin C Lisinopril 2.5 MG Lisinopril 2.5 MG No 1{table t} QD Lisinopril 2.5 MG Metoprolol Succinate ER 50 MG Metoprolol Succinate ER 50 MG No 1{table t} QD Metoprolol Succinate ER 50 MG Atorvastati n Calcium 40 MG Atorvastati n Calcium 40 MG No 1{table t} QD Atorvastat in Calcium 40 MG Atorvastati n Calcium 40 MG Atorvastati n Calcium 40 MG No 1{table t} QD Atorvastat in Calcium 40 MG Metoprolol Succinate ER 50 MG Metoprolol Succinate ER 50 MG No 1{table t} BID Metoprolol Succinate ER 50 MG Vitamin D3 125 MCG (5000 UT) Vitamin D3 125 MCG (5000 UT) No 1{table t} QD Vitamin D3 125 MCG (5000 UT) traMADol HCl 50 MG traMADol HCl 50 MG No 2{table ts} traMADol HCl 50 MG Vitamin C Vitamin C No Vitamin C Lisinopril 2.5 MG Lisinopril 2.5 MG No 1{table t} QD Lisinopril 2.5 MG Metoprolol Succinate ER 50 MG Metoprolol Succinate ER 50 MG No 1{table t} QD Metoprolol Succinate ER 50 MG Atorvastati n Calcium 40 MG Atorvastati n Calcium 40 MG No 1{table t} QD Atorvastat in Calcium 40 MG Vitamin D3 125 MCG (5000 UT) Vitamin D3 125 MCG (5000 UT) No 1{table t} QD Vitamin D3 125 MCG (5000 UT) traMADol HCl 50 MG traMADol HCl 50 MG No 2{table ts} traMADol HCl 50 MG Vitamin D3 125 MCG (5000 UT) Vitamin D3 125 MCG (5000 UT) No 1{table t} QD Vitamin D3 125 MCG (5000 UT) traMADol HCl 50 MG traMADol HCl 50 MG No 2{table ts} traMADol HCl 50 MG Lisinopril 2.5 MG Lisinopril 2.5 MG No 1{table t} QD Lisinopril 2.5 MG Vitamin C Vitamin C No Vitamin C Lisinopril 2.5 MG Lisinopril 2.5 MG No 1{table t} QD Lisinopril 2.5 MG Metoprolol Succinate ER 50 MG Metoprolol Succinate ER 50 MG No 1{table t} QD Metoprolol Succinate ER 50 MG Atorvastati n Calcium 40 MG Atorvastati n Calcium 40 MG No 1{table t} QD Atorvastat in Calcium 40 MG Vitamin C Vitamin C No Vitamin C Vitamin D3 125 MCG (5000 UT) Vitamin D3 125 MCG (5000 UT) No 1{table t} QD Vitamin D3 125 MCG (5000 UT) traMADol HCl 50 MG traMADol HCl 50 MG No 2{table ts} traMADol HCl 50 MG Vitamin C Vitamin C No Vitamin C Lisinopril 2.5 MG Lisinopril 2.5 MG No 1{table t} QD Lisinopril 2.5 MG Metoprolol Succinate ER 50 MG Metoprolol Succinate ER 50 MG No 1{table t} QD Metoprolol Succinate ER 50 MG Atorvastati n Calcium 40 MG Atorvastati n Calcium 40 MG No 1{table t} QD Atorvastat in Calcium 40 MG Vitamin D3 125 MCG (5000 UT) Vitamin D3 125 MCG (5000 UT) No 1{table t} QD Vitamin D3 125 MCG (5000 UT) traMADol HCl 50 MG traMADol HCl 50 MG No 2{table ts} traMADol HCl 50 MG Metoprolol Succinate ER 50 MG Metoprolol Succinate ER 50 MG No 1{table t} QD Metoprolol Succinate ER 50 MG traMADol HCl 50 MG traMADol HCl 50 MG No 2{table ts} traMADol HCl 50 MG Vitamin C Vitamin C No Vitamin C Vitamin D3 125 MCG (5000 UT) Vitamin D3 125 MCG (5000 UT) No 1{table t} QD Vitamin D3 125 MCG (5000 UT) Lisinopril 2.5 MG Lisinopril 2.5 MG No 1{table t} QD Lisinopril 2.5 MG Atorvastati n Calcium 40 MG Atorvastati n Calcium 40 MG No Atorvastat in Calcium 40 MG Atorvastati n Calcium 40 MG Atorvastati n Calcium 40 MG No 1{table t} QD Atorvastat in Calcium 40 MG Atorvastati n Calcium 40 MG Atorvastati n Calcium 40 MG No 1{table t} QD Atorvastat in Calcium 40 MG Iron Iron No Iron Metoprolol Succinate ER 50 MG Metoprolol Succinate ER 50 MG No 1{table t} QD Metoprolol Succinate ER 50 MG traMADol HCl 50 MG traMADol HCl 50 MG No 2{table ts} traMADol HCl 50 MG Vitamin C Vitamin C No Vitamin C Vitamin D3 125 MCG (5000 UT) Vitamin D3 125 MCG (5000 UT) No 1{table t} QD Vitamin D3 125 MCG (5000 UT) Lisinopril 2.5 MG Lisinopril 2.5 MG No 1{table t} QD Lisinopril 2.5 MG Atorvastati n Calcium 40 MG Atorvastati n Calcium 40 MG No 1{table t} QD Atorvastat in Calcium 40 MG Magnesium Magnesium No Magnesium tiZANidine HCl tiZANidine HCl No tiZANidine HCl Levocetiriz ine Dihydrochlo ride 5 MG Levocetiriz ine Dihydrochlo ride 5 MG No 1{table t_in_th e_eveni ng} QD Levocetiri zine Dihydrochl oride 5 MG Clopidogrel Bisulfate 75 MG Clopidogrel Bisulfate 75 MG No 1{table t} QD Clopidogre l Bisulfate 75 MG Vitamin C Vitamin C No Vitamin C Atorvastati n Calcium 40 MG Atorvastati n Calcium 40 MG No 1{table t} QD Atorvastat in Calcium 40 MG Gabapentin 800 MG Gabapentin 800 MG No QD Gabapentin 800 MG Metoprolol Succinate ER 50 MG Metoprolol Succinate ER 50 MG No 1{table t} QD Metoprolol Succinate ER 50 MG Lisinopril 2.5 MG Lisinopril 2.5 MG No 1{table t} QD Lisinopril 2.5 MG EpiPen EpiPen No EpiPen Vitamin D3 125 MCG (5000 UT) Vitamin D3 125 MCG (5000 UT) No 1{table t} QD Vitamin D3 125 MCG (5000 UT) traMADol HCl 50 MG traMADol HCl 50 MG No 2{table ts} traMADol HCl 50 MG Lisinopril 2.5 MG Lisinopril 2.5 MG No Lisinopril 2.5 MG Metoprolol Succinate ER 50 MG Metoprolol Succinate ER 50 MG No 1{table t} BID Metoprolol Succinate ER 50 MG Lisinopril 2.5 MG Lisinopril 2.5 MG No 1{table t} QD Lisinopril 2.5 MG Vitamin C Vitamin C No Vitamin C Levocetiriz ine Dihydrochlo ride 5 MG Levocetiriz ine Dihydrochlo ride 5 MG No 1{table t_in_ e_eveni ng} QD Levocetiri zine Dihydrochl oride 5 MG Clopidogrel Bisulfate 75 MG Clopidogrel Bisulfate 75 MG No 1{table t} QD Clopidogre l Bisulfate 75 MG Vitamin C Vitamin C No Vitamin C Atorvastati n Calcium 40 MG Atorvastati n Calcium 40 MG No 1{table t} QD Atorvastat in Calcium 40 MG Gabapentin 800 MG Gabapentin 800 MG No QD Gabapentin 800 MG Metoprolol Succinate ER 50 MG Metoprolol Succinate ER 50 MG No 1{table t} QD Metoprolol Succinate ER 50 MG Lisinopril 2.5 MG Lisinopril 2.5 MG No 1{table t} QD Lisinopril 2.5 MG Vitamin D3 125 MCG (5000 UT) Vitamin D3 125 MCG (5000 UT) No 1{table t} QD Vitamin D3 125 MCG (5000 UT) traMADol HCl 50 MG traMADol HCl 50 MG No 2{table ts} traMADol HCl 50 MG Levocetiriz ine Dihydrochlo ride 5 MG Levocetiriz ine Dihydrochlo ride 5 MG No 1{table t_in_th e_eveni ng} QD Levocetiri zine Dihydrochl oride 5 MG Clopidogrel Bisulfate 75 MG Clopidogrel Bisulfate 75 MG No 1{table t} QD Clopidogre l Bisulfate 75 MG Vitamin C Vitamin C No Vitamin C Atorvastati n Calcium 40 MG Atorvastati n Calcium 40 MG No 1{table t} QD Atorvastat in Calcium 40 MG Gabapentin 800 MG Gabapentin 800 MG No QD Gabapentin 800 MG Metoprolol Succinate ER 50 MG Metoprolol Succinate ER 50 MG No 1{table t} QD Metoprolol Succinate ER 50 MG Lisinopril 2.5 MG Lisinopril 2.5 MG No 1{table t} QD Lisinopril 2.5 MG Vitamin D3 125 MCG (5000 UT) Vitamin D3 125 MCG (5000 UT) No 1{table t} QD Vitamin D3 125 MCG (5000 UT) traMADol HCl 50 MG traMADol HCl 50 MG No 2{table ts} traMADol HCl 50 MG Iron Iron No Iron Metoprolol Succinate ER 50 MG Metoprolol Succinate ER 50 MG No Metoprolol Succinate ER 50 MG Atorvastati n Calcium 40 MG Atorvastati n Calcium 40 MG No Atorvastat in Calcium 40 MG Metoprolol Succinate ER 50 MG Metoprolol Succinate ER 50 MG No 1{table t} BID Metoprolol Succinate ER 50 MG EpiPen EpiPen No EpiPen tiZANidine HCl tiZANidine HCl No tiZANidine HCl Lisinopril 2.5 MG Lisinopril 2.5 MG No Lisinopril 2.5 MG Lisinopril 2.5 MG Lisinopril 2.5 MG No 1{table t} QD Lisinopril 2.5 MG Vitamin C Vitamin C No Vitamin C Magnesium Magnesium No Magnesium traMADol HCl 50 MG traMADol HCl 50 MG No 2{table ts} traMADol HCl 50 MG Atorvastati n Calcium 40 MG Atorvastati n Calcium 40 MG No 1{table t} QD Atorvastat in Calcium 40 MG Vitamin D3 125 MCG (5000 UT) Vitamin D3 125 MCG (5000 UT) No 1{table t} QD Vitamin D3 125 MCG (5000 UT) Lisinopril 2.5 MG Lisinopril 2.5 MG No Lisinopril 2.5 MG tiZANidine HCl tiZANidine HCl No tiZANidine HCl Vitamin C Vitamin C No Vitamin C traMADol HCl 50 MG traMADol HCl 50 MG No 2{table ts} traMADol HCl 50 MG Vitamin D3 125 MCG (5000 UT) Vitamin D3 125 MCG (5000 UT) No 1{table t} QD Vitamin D3 125 MCG (5000 UT) Atorvastati n Calcium 40 MG Atorvastati n Calcium 40 MG No Atorvastat in Calcium 40 MG Iron Iron No Iron Metoprolol Succinate ER 50 MG Metoprolol Succinate ER 50 MG No 1{table t} BID Metoprolol Succinate ER 50 MG EpiPen EpiPen No EpiPen Metoprolol Succinate ER 50 MG Metoprolol Succinate ER 50 MG No Metoprolol Succinate ER 50 MG Magnesium Magnesium No Magnesium Vitamin C Vitamin C No Vitamin C Lisinopril 2.5 MG Lisinopril 2.5 MG No Lisinopril 2.5 MG EpiPen EpiPen No EpiPen Metoprolol Succinate ER 50 MG Metoprolol Succinate ER 50 MG No Metoprolol Succinate ER 50 MG Atorvastati n Calcium 40 MG Atorvastati n Calcium 40 MG No Atorvastat in Calcium 40 MG Atorvastati n Calcium 40 MG Atorvastati n Calcium 40 MG No 1{table t} QD Atorvastat in Calcium 40 MG traMADol HCl 50 MG traMADol HCl 50 MG No 2{table ts} traMADol HCl 50 MG Iron Iron No Iron Metoprolol Succinate ER 50 MG Metoprolol Succinate ER 50 MG No 1{table t} BID Metoprolol Succinate ER 50 MG Vitamin D3 125 MCG (5000 UT) Vitamin D3 125 MCG (5000 UT) No 1{table t} QD Vitamin D3 125 MCG (5000 UT) Lisinopril 2.5 MG Lisinopril 2.5 MG No 1{table t} QD Lisinopril 2.5 MG tiZANidine HCl tiZANidine HCl No tiZANidine HCl Magnesium Magnesium No Magnesium Vitamin C Vitamin C No Vitamin C Lisinopril 2.5 MG Lisinopril 2.5 MG No Lisinopril 2.5 MG EpiPen EpiPen No EpiPen Metoprolol Succinate ER 50 MG Metoprolol Succinate ER 50 MG No Metoprolol Succinate ER 50 MG Atorvastati n Calcium 40 MG Atorvastati n Calcium 40 MG No Atorvastat in Calcium 40 MG Atorvastati n Calcium 40 MG Atorvastati n Calcium 40 MG No 1{table t} QD Atorvastat in Calcium 40 MG traMADol HCl 50 MG traMADol HCl 50 MG No 2{table ts} traMADol HCl 50 MG Iron Iron No Iron Metoprolol Succinate ER 50 MG Metoprolol Succinate ER 50 MG No 1{table t} BID Metoprolol Succinate ER 50 MG Vitamin D3 125 MCG (5000 UT) Vitamin D3 125 MCG (5000 UT) No 1{table t} QD Vitamin D3 125 MCG (5000 UT) Lisinopril 2.5 MG Lisinopril 2.5 MG No 1{table t} QD Lisinopril 2.5 MG tiZANidine HCl tiZANidine HCl No tiZANidine HCl Magnesium Magnesium No Magnesium traMADol HCl 50 MG traMADol HCl 50 MG No 2{table ts} traMADol HCl 50 MG Metoprolol Succinate ER 50 MG Metoprolol Succinate ER 50 MG No Metoprolol Succinate ER 50 MG Atorvastati n Calcium 40 MG Atorvastati n Calcium 40 MG No Atorvastat in Calcium 40 MG EpiPen EpiPen No EpiPen Magnesium Magnesium No Magnesium Lisinopril 2.5 MG Lisinopril 2.5 MG No 1{table t} QD Lisinopril 2.5 MG Vitamin C Vitamin C No Vitamin C Lisinopril 2.5 MG Lisinopril 2.5 MG No Lisinopril 2.5 MG Metoprolol Succinate ER 50 MG Metoprolol Succinate ER 50 MG No 1{table t} BID Metoprolol Succinate ER 50 MG tiZANidine HCl tiZANidine HCl No tiZANidine HCl Atorvastati n Calcium 40 MG Atorvastati n Calcium 40 MG No 1{table t} QD Atorvastat in Calcium 40 MG Iron Iron No Iron Vitamin D3 125 MCG (5000 UT) Vitamin D3 125 MCG (5000 UT) No 1{table t} QD Vitamin D3 125 MCG (5000 UT) traMADol HCl 50 MG traMADol HCl 50 MG No 2{table ts} traMADol HCl 50 MG Metoprolol Succinate ER 50 MG Metoprolol Succinate ER 50 MG No Metoprolol Succinate ER 50 MG Atorvastati n Calcium 40 MG Atorvastati n Calcium 40 MG No Atorvastat in Calcium 40 MG EpiPen EpiPen No EpiPen Magnesium Magnesium No Magnesium Lisinopril 2.5 MG Lisinopril 2.5 MG No 1{table t} QD Lisinopril 2.5 MG Vitamin C Vitamin C No Vitamin C Lisinopril 2.5 MG Lisinopril 2.5 MG No Lisinopril 2.5 MG Metoprolol Succinate ER 50 MG Metoprolol Succinate ER 50 MG No 1{table t} BID Metoprolol Succinate ER 50 MG tiZANidine HCl tiZANidine HCl No tiZANidine HCl Atorvastati n Calcium 40 MG Atorvastati n Calcium 40 MG No 1{table t} QD Atorvastat in Calcium 40 MG Iron Iron No Iron Vitamin D3 125 MCG (5000 UT) Vitamin D3 125 MCG (5000 UT) No 1{table t} QD Vitamin D3 125 MCG (5000 UT) Vitamin C Vitamin C No Vitamin C Iron Iron No Iron Metoprolol Succinate ER 50 MG Metoprolol Succinate ER 50 MG No Metoprolol Succinate ER 50 MG tiZANidine HCl tiZANidine HCl No tiZANidine HCl Lisinopril 2.5 MG Lisinopril 2.5 MG No Lisinopril 2.5 MG Gabapentin 300 MG Gabapentin 300 MG No 1{capsu le} QD Gabapentin 300 MG Atorvastati n Calcium 40 MG Atorvastati n Calcium 40 MG No 1{table t} QD Atorvastat in Calcium 40 MG traMADol HCl 50 MG traMADol HCl 50 MG No 2{table ts} traMADol HCl 50 MG Magnesium Magnesium No Magnesium Atorvastati n Calcium 40 MG Atorvastati n Calcium 40 MG No Atorvastat in Calcium 40 MG EpiPen EpiPen No EpiPen Metoprolol Succinate ER 50 MG Metoprolol Succinate ER 50 MG No 1{table t} BID Metoprolol Succinate ER 50 MG Lisinopril 2.5 MG Lisinopril 2.5 MG No 1{table t} QD Lisinopril 2.5 MG Vitamin D3 125 MCG (5000 UT) Vitamin D3 125 MCG (5000 UT) No 1{table t} QD Vitamin D3 125 MCG (5000 UT) traMADol HCl 50 MG traMADol HCl 50 MG No 2{table ts} traMADol HCl 50 MG Iron Iron No Iron Magnesium Magnesium No Magnesium EpiPen EpiPen No EpiPen tiZANidine HCl tiZANidine HCl No tiZANidine HCl Atorvastati n Calcium 40 MG Atorvastati n Calcium 40 MG No Atorvastat in Calcium 40 MG Atorvastati n Calcium 40 MG Atorvastati n Calcium 40 MG No 1{table t} QD Atorvastat in Calcium 40 MG Vitamin C Vitamin C No Vitamin C Lisinopril 2.5 MG Lisinopril 2.5 MG No Lisinopril 2.5 MG Vitamin D3 125 MCG (5000 UT) Vitamin D3 125 MCG (5000 UT) No 1{table t} QD Vitamin D3 125 MCG (5000 UT) Gabapentin 300 MG Gabapentin 300 MG No 1{capsu le} QD Gabapentin 300 MG Immunizations Ordered Immunization Name Filled Immunization Name Date Status Comments Source Kenalog (Triamcinolone) Kenalog (Triamcinolone) 2021-07-11 09:32:00 Completed [facility] Bupivicaine [place] Bupivicaine [place] 2021-06-26 09:38:00 Completed [facility] Kenalog (Triamcinolone) Kenalog (Triamcinolone) 2021-06-26 09:38:00 Completed [facility] Bupivicaine [place] Bupivicaine [place] 2021-06-26 09:38:00 Completed [facility] Kenalog (Triamcinolone) Kenalog (Triamcinolone) 2021-06-26 09:38:00 Completed [facility] Bupivicaine [place] Bupivicaine [place] 2021-06-26 09:38:00 Completed [facility] Kenalog (Triamcinolone) Kenalog (Triamcinolone) 2021-06-26 09:38:00 Completed [facility] Bupivicaine [place] Bupivicaine [place] 2021-06-26 09:38:00 Completed [facility] Kenalog (Triamcinolone) Kenalog (Triamcinolone) 2021-06-26 09:38:00 Completed [facility] Bupivicaine [place] Bupivicaine [place] 2021-05-22 08:55:00 Completed [facility] Kenalog (Triamcinolone) Kenalog (Triamcinolone) 2021-05-22 08:55:00 Completed [facility] Bupivicaine [place] Bupivicaine [place] 2021-05-22 08:55:00 Completed [facility] Kenalog (Triamcinolone) Kenalog (Triamcinolone) 2021-05-22 08:55:00 Completed [facility] Bupivicaine [place] Bupivicaine [place] 2021-05-22 08:55:00 Completed [facility] Kenalog (Triamcinolone) Kenalog (Triamcinolone) 2021-05-22 08:55:00 Completed [facility] Bupivicaine [place] Bupivicaine [place] 2021-05-22 08:55:00 Completed [facility] Kenalog (Triamcinolone) Kenalog (Triamcinolone) 2021-05-22 08:55:00 Completed [facility] Pneumococcal Polysaccharide, PPSV23 (PNEUMOVAX) 2018-01-26 00:00:00 Completed [facility] Pneumococcal Polysaccharide, PPSV23 (PNEUMOVAX) 2018-01-26 00:00:00 Completed [facility] Pneumococcal Polysaccharide, PPSV23 (PNEUMOVAX) 2018-01-26 00:00:00 Completed [facility] Pneumococcal Polysaccharide, PPSV23 (PNEUMOVAX) 2018-01-26 00:00:00 Completed [facility] Pneumococcal Polysaccharide, PPSV23 (PNEUMOVAX) 2018-01-26 00:00:00 Completed [facility] Pneumococcal Polysaccharide, PPSV23 (PNEUMOVAX) 2018-01-26 00:00:00 Completed [facility] Pneumococcal Polysaccharide, PPSV23 (PNEUMOVAX) 2018-01-26 00:00:00 Completed [facility] Adacel (Tdap) Adacel (Tdap) 2015-01-11 14:09:00 Completed [facility] Adacel (Tdap) Adacel (Tdap) 2015-01-11 14:09:00 Completed [facility] Adacel (Tdap) Adacel (Tdap) 2015-01-11 14:09:00 Completed [facility] Adacel (Tdap) Adacel (Tdap) 2015-01-11 14:09:00 Completed [facility] Adacel (Tdap) Adacel (Tdap) 2015-01-11 14:09:00 Completed [facility] Adacel (Tdap) Adacel (Tdap) 2015-01-11 14:09:00 Completed [facility] Adacel (Tdap) Adacel (Tdap) 2015-01-11 14:09:00 Completed [facility] Adacel (Tdap) Adacel (Tdap) 2015-01-11 14:09:00 Completed [facility] Adacel (Tdap) Adacel (Tdap) 2015-01-11 14:09:00 Completed [facility] Adacel (Tdap) Adacel (Tdap) 2015-01-11 14:09:00 Completed [facility] Adacel (Tdap) Adacel (Tdap) 2015-01-11 14:09:00 Completed [facility] Adacel (Tdap) Adacel (Tdap) 2015-01-11 14:09:00 Completed [facility] Adacel (Tdap) Adacel (Tdap) 2015-01-11 14:09:00 Completed [facility] (Tdap) [facility] (Tdap) 2015-01-11 14:09:00 Completed [facility] (Tdap) [facility] (Tdap) 2015-01-11 14:09:00 Completed [facility] (Tdap) Ad[facility]el (Tdap) 2015-01-11 14:09:00 Completed [facility] (Tdap) Ad[facility]el (Tdap) 2015-01-11 14:09:00 Completed [facility] (Tdap) [facility]el (Tdap) 2015-01-11 14:09:00 Completed [facility] (Tdap) [facility]el (Tdap) 2015-01-11 14:09:00 Completed [facility] (Tdap) [facility] (Tdap) 2015-01-11 14:09:00 Completed [facility] (Tdap) [facility] (Tdap) 2015-01-11 14:09:00 Completed [facility] [facility] Adacel (Tdap) Adacel (Tdap) 2015-01-11 14:09:00 Completed [facility] Adacel (Tdap) Adacel (Tdap) 2015-01-11 14:09:00 Completed [facility] Adacel (Tdap) Adacel (Tdap) 2015-01-11 14:09:00 Completed [facility] Adacel (Tdap) Adacel (Tdap) 2015-01-11 14:09:00 Completed [facility] Adacel (Tdap) Adacel (Tdap) Unknown Completed [facility] Adacel (Tdap) Adacel (Tdap) Unknown Completed [facility] Adacel (Tdap) Adacel (Tdap) Unknown Completed [facility] Adacel (Tdap) Adacel (Tdap) Unknown Completed [facility] Adacel (Tdap) Adacel (Tdap) Unknown Completed [facility] Adacel (Tdap) Adacel (Tdap) Unknown Completed [facility] Adacel (Tdap) Adacel (Tdap) Unknown Completed [facility] Adacel (Tdap) Adacel (Tdap) Unknown Completed [facility] Adacel (Tdap) Adacel (Tdap) Unknown Completed [facility] Adacel (Tdap) Adacel (Tdap) Unknown Completed [facility] Adacel (Tdap) Adacel (Tdap) Unknown Completed Co mmon [facility] Adacel (Tdap) Adacel (Tdap) Unknown Completed Co mmon [facility] Adacel (Tdap) Adacel (Tdap) Unknown Completed Co on [facility] Adacel (Tdap) Adacel (Tdap) Unknown Completed Co mmon [facility] Adacel (Tdap) Adacel (Tdap) Unknown Completed Co on [facility] Vital Signs Vital Name Observation Time Observation Value Comments S ource height 2023-05-15 08:00:00 66 [in_i] Commo n [facility] weight 2023-05-15 08:00:00 195 [lb_av] Comm on [facility] temperature 2023-05-15 08:00:00 97.3 [degF] Com [facility] bmi 2023-05-15 08:00:00 31.47 kg/m2 Comm on [facility] oximetry 2023-05-15 08:00:00 92 % Commo n [facility] respiratory rate 2023-05-15 08:00:00 16 /min [facility] blood pressure systolic 2023-05-15 08:00:00 132 mm[Hg] [facility] blood pressure diastolic 2023-05-15 08:00:00 70 mm[Hg] [facility] height 2023-02-12 16:00:00 66 [in_i] Commo n [facility] weight 2023-02-12 16:00:00 195.2 [lb_av] Co [facility] temperature 2023-02-12 16:00:00 98.0 [degF] Com [facility] bmi 2023-02-12 16:00:00 31.5 kg/m2 Commo n [facility] oximetry 2023-02-12 16:00:00 95 % Commo n [facility] respiratory rate 2023-02-12 16:00:00 17 /min Common [facility] blood pressure systolic 2023-02-12 16:00:00 136 mm[Hg] Common [facility] blood pressure diastolic 2023-02-12 16:00:00 79 mm[Hg] Common [facility] Systolic blood pressure 2023-01-28 18:22:00 157 mm[Hg] [facility] Diastolic blood pressure 2023-01-28 18:22:00 96 mm[Hg] [facility] Heart rate 2023-01-28 18:22:00 78 /min [facility] Body temperature 2023-01-28 18:22:00 37.17 Shameka [facility] Respiratory rate 2023-01-28 18:22:00 18 /min [facility] Body weight 2023-01-28 18:22:00 83.915 kg [facility] BMI 2023-01-28 18:22:00 29.86 kg/m2 [facility] Oxygen saturation in Arterial blood by Pulse oximetry 2023-01-28 18:22:00 95 /min [facility] height 2023-01-27 08:30:00 66 [in_i] Commo n [facility] weight 2023-01-27 08:30:00 200 [lb_av] Comm on [facility] temperature 2023-01-27 08:30:00 97.8 [degF] Com mon [facility] bmi 2023-01-27 08:30:00 32.28 kg/m2 Comm on [facility] blood pressure systolic 2023-01-27 08:30:00 132 mm[Hg] Common [facility] blood pressure diastolic 2023-01-27 08:30:00 80 mm[Hg] Common [facility] height 2022-12-11 10:30:00 66 [in_i] Commo n [facility] weight 2022-12-11 10:30:00 198.5 [lb_av] Co mmon [facility] temperature 2022-12-11 10:30:00 97.2 [degF] Com mon [facility] bmi 2022-12-11 10:30:00 32.04 kg/m2 Comm on [facility] blood pressure systolic 2022-12-11 10:30:00 138 mm[Hg] [facility] blood pressure diastolic 2022-12-11 10:30:00 84 mm[Hg] Common [facility] height 2022-11-14 14:50:00 66 [in_i] Commo n [facility] weight 2022-11-14 14:50:00 200 [lb_av] Comm on [facility] temperature 2022-11-14 14:50:00 98.1 [degF] Com [facility] bmi 2022-11-14 14:50:00 32.28 kg/m2 Comm on [facility] oximetry 2022-11-14 14:50:00 98 % Commo n [facility] respiratory rate 2022-11-14 14:50:00 16 /min [facility] blood pressure systolic 2022-11-14 14:50:00 138 mm[Hg] Common [facility] blood pressure diastolic 2022-11-14 14:50:00 78 mm[Hg] [facility] height 2022-11-14 15:00:00 66 [in_i] Commo n [facility] weight 2022-11-14 15:00:00 200 [lb_av] Comm on [facility] temperature 2022-11-14 15:00:00 98.1 [degF] Com [facility] bmi 2022-11-14 15:00:00 32.28 kg/m2 Comm on [facility] oximetry 2022-11-14 15:00:00 98 % Commo n [facility] respiratory rate 2022-11-14 15:00:00 16 /min [facility] blood pressure systolic 2022-11-14 15:00:00 138 mm[Hg] Common [facility] blood pressure diastolic 2022-11-14 15:00:00 78 mm[Hg] Common [facility] height 2022-11-14 09:30:00 66 [in_i] Commo n [facility] weight 2022-11-14 09:30:00 200 [lb_av] Comm on [facility] temperature 2022-11-14 09:30:00 97.9 [degF] Com mon [facility] bmi 2022-11-14 09:30:00 32.28 kg/m2 Comm on [facility] blood pressure systolic 2022-11-14 09:30:00 132 mm[Hg] Common [facility] blood pressure diastolic 2022-11-14 09:30:00 80 mm[Hg] [facility] Systolic blood pressure 2022-10-20 12:25:00 125 mm[Hg] [facility] Diastolic blood pressure 2022-10-20 12:25:00 76 mm[Hg] [facility] Heart rate 2022-10-20 12:25:00 52 /min [facility] 2022-10-20 12:25:00 14 /min [facility] Oxygen saturation in Arterial blood by Pulse oximetry 2022-10-20 12:25:00 93 /min [facility] Body temperature 2022-10-20 10:46:00 37.39 Shameka [facility] Body height 2022-10-20 10:46:00 167.6 cm [facility] Body weight 2022-10-20 10:46:00 85.7 kg [facility] BMI 2022-10-20 10:46:00 30.49 kg/m2 [facility] Systolic blood pressure 2022-08-30 20:50:00 92 mm[Hg] [facility] Diastolic blood pressure 2022-08-30 20:50:00 64 mm[Hg] [facility] Heart rate 2022-08-30 20:50:00 53 /min [facility] Respiratory rate 2022-08-30 20:50:00 20 /min [facility] Oxygen saturation in Arterial blood by Pulse oximetry 2022-08-30 20:50:00 94 /min [facility] Body temperature 2022-08-30 13:47:00 35.67 Shameka [facility] Body height 2022-08-30 13:47:00 175.3 cm [facility] Body weight 2022-08-30 13:47:00 92.987 kg [facility] BMI 2022-08-30 13:47:00 30.27 kg/m2 [facility] height 2022-07-31 14:40:00 66 [in_i] Commo n [facility] weight 2022-07-31 14:40:00 201.0 [lb_av] Co mmon [facility] temperature 2022-07-31 14:40:00 98.2 [degF] Com mon [facility] bmi 2022-07-31 14:40:00 32.44 kg/m2 Comm on [facility] oximetry 2022-07-31 14:40:00 97 % Commo n [facility] respiratory rate 2022-07-31 14:40:00 17 /min Common [facility] blood pressure systolic 2022-07-31 14:40:00 135 mm[Hg] Common [facility] blood pressure diastolic 2022-07-31 14:40:00 72 mm[Hg] [facility] Systolic blood pressure 2022-05-24 20:23:00 112 mm[Hg] [facility] Diastolic blood pressure 2022-05-24 20:23:00 65 mm[Hg] [facility] Heart rate 2022-05-24 20:23:00 68 /min [facility] Body temperature 2022-05-24 20:23:00 35.83 Shameka [facility] Respiratory rate 2022-05-24 20:23:00 18 /min [facility] Oxygen saturation in Arterial blood by Pulse oximetry 2022-05-24 20:23:00 96 /min [facility] Body height 2022-05-23 19:38:00 175.3 cm [facility] Body weight 2022-05-23 19:38:00 92.987 kg [facility] BMI 2022-05-23 19:38:00 30.27 kg/m2 [facility] height 2022-04-18 10:00:00 66 [in_i] Commo n [facility] weight 2022-04-18 10:00:00 209.0 [lb_av] Co mmon [facility] temperature 2022-04-18 10:00:00 98.1 [degF] Com mon [facility] bmi 2022-04-18 10:00:00 33.73 kg/m2 Comm on [facility] oximetry 2022-04-18 10:00:00 95 % Commo n [facility] respiratory rate 2022-04-18 10:00:00 16 /min [facility] blood pressure systolic 2022-04-18 10:00:00 132 mm[Hg] Common [facility] blood pressure diastolic 2022-04-18 10:00:00 73 mm[Hg] Common [facility] height 2022-04-04 11:10:00 66 [in_i] Commo n [facility] weight 2022-04-04 11:10:00 197 [lb_av] Comm on [facility] temperature 2022-04-04 11:10:00 98 [degF] Comm on [facility] bmi 2022-04-04 11:10:00 31.79 kg/m2 Comm on [facility] blood pressure systolic 2022-04-04 11:10:00 125 mm[Hg] Common [facility] blood pressure diastolic 2022-04-04 11:10:00 65 mm[Hg] Common [facility] height 2022-02-14 08:20:00 66 [in_i] Commo n [facility] weight 2022-02-14 08:20:00 197.3 [lb_av] Co mmon [facility] temperature 2022-02-14 08:20:00 97.3 [degF] Com [facility] bmi 2022-02-14 08:20:00 31.84 kg/m2 Comm on [facility] oximetry 2022-02-14 08:20:00 96 % Commo n [facility] respiratory rate 2022-02-14 08:20:00 16 /min [facility] blood pressure systolic 2022-02-14 08:20:00 114 mm[Hg] [facility] blood pressure diastolic 2022-02-14 08:20:00 62 mm[Hg] [facility] height 2022-01-17 08:10:00 66 [in_i] Commo n [facility] weight 2022-01-17 08:10:00 195.6 [lb_av] Co mmon [facility] temperature 2022-01-17 08:10:00 98.3 [degF] Com mon [facility] bmi 2022-01-17 08:10:00 31.57 kg/m2 Comm on [facility] oximetry 2022-01-17 08:10:00 98 % Commo n [facility] respiratory rate 2022-01-17 08:10:00 17 /min [facility] blood pressure systolic 2022-01-17 08:10:00 133 mm[Hg] Common [facility] blood pressure diastolic 2022-01-17 08:10:00 72 mm[Hg] Common [facility] height 2021-10-16 08:20:00 66 [in_i] Commo n [facility] weight 2021-10-16 08:20:00 194.9 [facility]lb_av[facility] 2021-10-16 08:20:00 98.2 [degF] Com [facility] bmi 2021-10-16 08:20:00 31.45 kg/m2 Comm on [facility] oximetry 2021-10-16 08:20:00 97 % Commo n [facility] respiratory rate 2021-10-16 08:20:00 17 /min [facility] blood pressure systolic 2021-10-16 08:20:00 132 mm[Hg] [facility] blood pressure diastolic 2021-10-16 08:20:00 77 mm[Hg] [facility] height 2021-10-16 08:20:00 66 [in_i] Commo n [facility] weight 2021-10-16 08:20:00 194.9 [lb_av] Co [facility] temperature 2021-10-16 08:20:00 98.2 [degF] Com [facility] bmi 2021-10-16 08:20:00 31.45 kg/m2 Comm on [facility] oximetry 2021-10-16 08:20:00 97 % Commo n [facility] respiratory rate 2021-10-16 08:20:00 17 /min [facility] height 2021-10-08 13:10:00 66 [in_i] Commo n [facility] weight 2021-10-08 13:10:00 195.3 [lb_av] Co [facility] temperature 2021-10-08 13:10:00 98.1 [degF] Com [facility] bmi 2021-10-08 13:10:00 31.52 kg/m2 Comm on [facility] oximetry 2021-10-08 13:10:00 97 % Commo n [facility] respiratory rate 2021-10-08 13:10:00 17 /min [facility] blood pressure systolic 2021-10-08 13:10:00 132 mm[Hg] Common [facility] blood pressure diastolic 2021-10-08 13:10:00 73 mm[Hg] [facility] height 2021-07-11 09:10:00 66 [in_i] Commo n [facility] weight 2021-07-11 09:10:00 185.1 [lb_av] Co mmon [facility] temperature 2021-07-11 09:10:00 97.6 [degF] Com mon [facility] bmi 2021-07-11 09:10:00 29.87 kg/m2 Comm on [facility] oximetry 2021-07-11 09:10:00 96 % Commo n [facility] respiratory rate 2021-07-11 09:10:00 18 /min [facility] blood pressure systolic 2021-07-11 09:10:00 138 mm[Hg] [facility] blood pressure diastolic 2021-07-11 09:10:00 76 mm[Hg] [facility] Procedures Procedure Date / Time Performed Performing Clinician Source CONSENT/REFUSAL FOR DIAGNOSIS AND TREATMENT 2023-01-28 18:20:41 Doctor Unassigned, [place] [facility] URINALYSIS 2022-10-20 11:29:00 Christen Obando [facility] URINE DRUG (IMMUNOASSAY) - COMPREHENSIVE DRUG SCREEN W/O REFLEX 2022-10-20 11:29:00 Christen Obando [facility] XR CHEST 1 VW 2022-10-20 11:07:00 Christen Obando [facility] COMP. METABOLIC PANEL ([id number]) 2022-10-20 11:04:00 Christen Obando [facility] SALICYLATE 2022-10-20 11:04:00 [facility] ETHANOL 2022-10-20 11:04:00 Christen Obando [facility] CBC WITH DIFF 2022-10-20 11:04:00 Christen Obando [facility] BASIC METABOLIC PANEL (NA, K, CL, CO2, GLUCOSE, BUN, CREATININE, CA) 2022-08-30 17:22:00 Gertrude Chinchilla [facility] URINALYSIS 2022-08-30 14:21:00 Gertrude Chinchilla [facility] URINE DRUG (IMMUNOASSAY) - COMPREHENSIVE DRUG SCREEN W/O REFLEX 2022-08-30 14:21:00 Gertrude Chinchilla [facility] XR CHEST 1 VW 2022-08-30 14:04:16 Gertrude Chinchilla [facility] MAGNESIUM 2022-08-30 14:03:00 Gertrude Chinchilla [facility] TROPONIN I 2022-08-30 14:03:00 Gertrude Chinchilla [facility] COMP. METABOLIC PANEL ([id number]) 2022-08-30 14:03:00 Gertrude Chinchilla [facility] ETHANOL 2022-08-30 14:03:00 Gertrude Chinchilla Un [facility] CBC WITH DIFF 2022-08-30 14:03:00 Gertrude Chinchilla [facility] XR CHEST 1 VW 2022-05-24 11:38:14 Callie Cuellar [facility] MAGNESIUM 2022-05-24 08:56:00 Callie Cuellar [facility] TROPONIN I 2022-05-24 08:56:00 Callie Cuellar [facility] BASIC METABOLIC PANEL (NA, K, CL, CO2, GLUCOSE, BUN, CREATININE, CA) 2022-05-24 08:56:00 Callie Cuellar [facility] CBC WITH DIFF 2022-05-24 08:56:00 Callie Cuellar [facility] TROPONIN I 2022-05-24 03:51:00 Callie Cuellar [facility] XR KUB 2022-05-23 22:25:58 Callie Cuellar [facility] URINALYSIS 2022-05-23 22:15:00 Gertrude Chinchilla [facility] CREATININE, URINE RANDOM 2022-05-23 22:15:00 Vani Cuellar [facility] SODIUM, URINE RANDOM 2022-05-23 22:15:00 Callie Cuellar [facility] URINE DRUG (IMMUNOASSAY) - COMPREHENSIVE DRUG SCREEN W/O REFLEX 2022-05-23 22:15:00 Gertrude Chinchilla [facility] TRANSTHORACIC ECHO (TTE) COMPLETE 2022-05-23 20:33:00 Callie Cuellar [facility] COVID-19 (ID NOW RAPID TESTING) 2022-05-23 16:39:00 Gertrude Chinchilla [facility] LAB ONLY COVID INTERPRETATION 2022-05-23 16:39:00 Gertrude Chinchilla [facility] TROPONIN I 2022-05-23 13:42:00 Gertrude Chinchilla [facility] COMP. METABOLIC PANEL ([id number]) 2022-05-23 13:42:00 Gertrude Chinchilla [facility] CBC WITH DIFF 2022-05-23 13:42:00 Gertrude Chinchilla U [facility] HB ECG ROUTINE & RHYTHM STRIP 2022-05-23 13:12:28 Gertrude Chinchilla [facility] EKG-12 LEAD 2022-05-23 12:44:00 Gertrude Chinchilla [facility] AUTHORIZATION FOR RELEASE OF PHI 2021-11-12 06:01:00 Doctor Unassigned, [place] [facility] Encounters Start Date/Time End Date/Time Encounter Type Admission Type Attending Clinicians Care Facility Care Department Encounter ID Source 2023-09-15 10:25:00 Outpatient Rosana Red [facility] [id number] [facility] 2023-09-12 08:30:00 Outpatient Rosana Red [facility] [id number] [facility] 2023-08-15 09:11:00 Outpatient SaragadamRosana [facility] [id number] [facility] 2023-08-14 16:35:00 Outpatient Orss, Mahad [facility] [id number] [facility] 2023-07-04 14:02:00 Outpatient Ross, Mahad [facility] [id number] [facility] 2023-06-05 14:42:00 Outpatient Ross, Mahad [facility] [id number] [facility] 2023-05-14 15:43:00 Outpatient Ross, Mahad [facility] [id number] [facility] 2023-05-09 14:32:00 Outpatient Ross, Mahad [facility] [id number] [facility] 2023-02-11 08:03:01 Outpatient Ross, Mahad [facility] [id number] [facility] 2022-12-02 14:44:00 Outpatient Ross, Mahad [facility] [id number] [facility] 2022-11-14 12:02:00 Outpatient Ross, Mahad [facility] [id number] [facility] 2022-11-12 10:39:01 Outpatient Ross, Mahad [facility] [id number] [facility] 2022-10-07 09:37:01 Outpatient Ross, Mahad [facility] [id number] [facility] 2022-10-04 16:32:01 Outpatient Ross, Mahad [facility] [id number] [facility] 2022-08-16 15:23:00 Outpatient Ross, Mahad [facility] [id number] [facility] 2022-07-31 14:32:00 Outpatient Ross, Mahad [facility] [id number] [facility] 2022-07-29 16:01:01 Outpatient Ross, Mahad [facility] [id number] [facility] 2022-07-19 16:30:01 Outpatient Ross, Mahad [facility] [id number] [facility] 2022-07-16 10:11:00 Outpatient Ross, Mahad [facility] [id number] [facility] 2022-06-25 14:39:00 Outpatient Orss, Mahad [facility] [id number] [facility] 2022-05-16 12:11:01 Outpatient Ross, Mahad [facility] [id number] [facility] 2021-10-24 13:24:10 Outpatient Ross, Mahad [facility] [id number] [facility] 2021-10-24 13:06:32 Outpatient Ross, Mahad [facility] [id number] [facility] 2021-10-24 12:40:59 Outpatient Ross, Mahad [facility] [id number] [facility] 2021-10-24 12:30:18 Outpatient Ross, Mahad [facility] [id number] [facility] 2021-10-24 12:29:04 Outpatient Ross, Mahad [facility] [id number] [facility] 2021-10-24 11:52:46 Outpatient Ross, Mahad [facility] [id number] [facility] 2021-10-24 11:44:17 Outpatient Ross, Mahad [facility] [id number] [facility] 2021-10-24 11:37:11 Outpatient Mahad Ross [facility] [id number] [facility] 2021-07-28 05:50:12 Emergency [facility] [id number] [facility] 2023-05-20 00:00:00 2023-05-20 00:00:00 (TEL) [facility] [id number] [facility] 2023-05-15 00:00:00 2023-05-15 00:00:00 OFFICE VISIT ESTAB PT LEVEL 4 [facility] [id number] [facility] 2023-04-25 00:00:00 2023-04-25 00:00:00 Out[place] [facility] [id number] [facility] 2023-04-25 00:00:00 2023-04-25 00:00:00 Outpatient [place] _B DMG [facility] [id number] [facility] 2023-03-05 00:00:00 2023-03-05 00:00:00 (TEL) STLMLC STLMLC [id number] [facility] 2023-02-20 16:29:56 2023-02-20 16:29:56 Outpatient SFA JESUSITA [id number] Tim Lambert 2023-02-12 00:00:00 2023-02-12 00:00:00 OFFICE VISIT ESTAB PT LEVEL 4 STLMLC STLMLC [id number] [facility] 2023-02-12 00:00:00 2023-02-12 00:00:00 (TEL) STLMLC STLMLC [id number] [facility] 2023-01-31 00:00:00 2023-01-31 00:00:00 (TEL) STLMLC STLMLC [id number] [facility] 2023-01-28 13:23:00 2023-01-28 14:59:00 Emergency X ZANE LIU TIMOTHY [facility] ERT [id number] [facility] 2023-01-28 13:23:00 2023-01-28 14:59:00 Emergency Zane Liu [facility] [id number] 350.1.13.10 4.2.7.2.686 [id number] [facility] 2023-01-27 00:00:00 2023-01-27 00:00:00 OFFICE VISIT ESTAB PT LEVEL 4 STLMLC STLMLC [id number] [facility] 2023-01-22 11:17:34 2023-01-22 11:17:34 Outpatient SFA JESUSITA [id number] Itm F Fausto 2023-01-10 00:00:00 2023-01-10 00:00:00 (TEL) STLMLC STLMLC [id number] [facility] 2023-01-01 00:00:00 2023-01-01 00:00:00 (TEL) STLMLC STLMLC [id number] [facility] 2022-12-24 08:30:06 2022-12-24 08:30:06 Outpatient SFA JESUSITA [id number] Tim F Fausto 2022-12-11 00:00:00 2022-12-11 00:00:00 OFFICE VISIT ESTAB PT LEVEL 4 STLMLC STLMLC [id number] [facility] 2022-12-02 00:00:00 2022-12-02 00:00:00 (TEL) STLMLC STLMLC [id number] [facility] 2022-11-27 08:05:24 2022-11-27 08:05:24 Outpatient SFA SFA [id number] Tim Messina Fausto 2022-11-18 00:00:00 2022-11-18 00:00:00 (TEL) STLMLC STLMLC [id number] [facility] 2022-11-14 00:00:00 2022-11-14 00:00:00 OFFICE VISIT ESTAB PT LEVEL 4 STLMLC STLMLC [id number] [facility] 2022-11-14 00:00:00 2022-11-14 00:00:00 SUB ANNUAL [facility] VISIT STLMLC STLMLC [id number] [facility] 2022-11-14 00:00:00 2022-11-14 00:00:00 OFFICE VISIT ESTAB PT LEVEL 4 STLMLC STLMLC [id number] [facility] 2022-11-05 00:00:00 2022-11-05 00:00:00 (TEL) STLMLC STLMLC [id number] [facility] 2022-10-30 17:27:51 2022-10-30 17:27:51 Outpatient SFA [facility] [id number] Tim Lambert 2022-10-24 00:00:00 2022-10-24 00:00:00 (TEL) STLMLC STLMLC [id number] [facility] 2022-10-20 04:41:00 2022-10-20 06:40:00 [facility] [id number] [facility] 2022-10-20 04:41:00 2022-10-20 06:40:00 Emergency Singer Christen CAELMER [facility] [id number] 350.1.13.10 4.2.7.2.686 [id number] [facility] 2022-10-16 00:00:00 2022-10-16 00:00:00 (TEL) STLMLC STLMLC [id number] [facility] 2022-10-03 15:56:50 2022-10-03 15:56:50 Outpatient SFA [facility] [id number] Tim F Fausto 2022-10-03 00:00:00 2022-10-03 00:00:00 (TEL) STLMLC STLMLC [id number] [facility] 2022-09-04 08:12:48 2022-09-04 08:12:48 Outpatient SFA [facility] [id number] Tim Lambert 2022-09-03 14:40:55 2022-09-03 14:40:55 Outpatient SFA [facility] [id number] Tim Lambert 2022-08-30 07:45:00 2022-08-30 15:39:00 [facility] [id number] [facility] 2022-08-30 07:45:00 2022-08-30 15:39:00 Emergency Gertrude Chinchilla [facility] 1.2.840.114 350.1.13.10 4.2.7.2.686 [id number] [facility] 2022-08-12 00:00:00 2022-08-12 00:00:00 [place] [id number] [facility] 2022-08-12 00:00:00 2022-08-12 00:00:00 Outpatient [place] _B DMG DMG [id number] [facility] 2022-08-12 00:00:00 2022-08-12 00:00:00 Outpatient [place] _B DMG DMG [id number] [facility] 2022-08-12 00:00:00 2022-08-12 00:00:00 Outpatient [place] _B DMG DMG [id number] [facility] 2022-07-31 00:00:00 2022-07-31 00:00:00 OFFICE VISIT ESTAB PT LEVEL 4 STLMLC STLMLC [id number] [facility] 2022-06-21 00:00:00 2022-06-21 00:00:00 Outpatient Cobb_T DMG DMG [id number] [facility] 2022-06-20 00:00:00 2022-06-20 00:00:00 Outpatient Cobb_T DMG DMG [id number] [facility] 2022-06-06 00:00:00 2022-06-06 00:00:00 (TEL) STLMLC STLMLC [id number] [facility] 2022-05-27 00:00:00 2022-05-27 00:00:00 Transition of Care Simón Rollins BRIT TILLMAN 1.2.840.114 350.1.13.10 4.2.7.2.686 [id number] [facility] 2022-05-23 07:39:00 2022-05-24 17:43:00 Outpatient CALLIE SHARIF [facility] [id number] [facility] 2022-05-23 07:39:00 2022-05-24 17:43:00 Emergency Gertrude Chinchilla David [facility] .2.840.114 350.1.13.10 4.2.7.2.686 [id number] [facility] 2022-05-09 00:00:00 2022-05-09 00:00:00 Outpatient Cobb_T DMG [facility] [id number] [facility] 2022-04-18 00:00:00 2022-04-18 00:00:00 OFFICE VISIT ESTAB PT LEVEL 4 STLMLC STLMLC [id number] [facility] 2022-04-18 00:00:00 2022-04-18 00:00:00 (TEL) STLMLC STLMLC [id number] [facility] 2022-04-12 03:30:00 2022-04-12 03:30:00 [place] Deshazo_[place] [id number] [facility] 2022-04-10 04:58:00 2022-04-10 04:58:00 Outpatient Deshazo_T DMG DMG [id number] [facility] 2022-04-04 00:00:00 2022-04-04 00:00:00 (TEL) STLMLC STLMLC [id number] [facility] 2022-04-04 00:00:00 2022-04-04 00:00:00 (EST. VIDEO) EST VIRTUAL VIDEO VISIT STLMLC STLMLC [id number] [facility] 2022-03-26 00:00:00 2022-03-26 00:00:00 (TEL) STLMLC STLMLC [id number] [facility] 2022-02-14 00:00:00 2022-02-14 00:00:00 OFFICE VISIT ESTAB PT LEVEL 5 STLMLC STLMLC [id number] [facility] 2022-01-22 00:00:00 2022-01-22 00:00:00 (TEL) STLMLC STLMLC [id number] [facility] 2022-01-17 00:00:00 2022-01-17 00:00:00 OFFICE VISIT ESTAB PT LEVEL 4 STLMLC STLMLC [id number] [facility] 2021-11-12 00:00:00 2021-11-12 00:00:00 Orders Only Doctor Unassigned, [place] [facility] [id number] 350.1.13.10 4.2.7.2.686 [id number] [facility] 2021-10-16 00:00:00 2021-10-16 00:00:00 OFFICE VISIT ESTAB PT LEVEL 4 STLMLC STLMLC [id number] [facility] 2021-10-16 00:00:00 2021-10-16 00:00:00 SUB ANNUAL [facility] VISIT STLMLC STLMLC [id number] [facility] 2021-10-09 14:20:00 2021-10-09 14:20:00 Outpatient NEELA FANG [facility] [id number] [facility] 2021-10-09 00:00:00 2021-10-09 00:00:00 (TEL) STLMLC STLMLC [id number] [facility] 2021-10-08 00:00:00 2021-10-08 00:00:00 (HOSP F/U) Hospital Follow Up STLMLC STLMLC [id number] [facility] 2021-10-05 00:00:00 2021-10-05 00:00:00 (TEL) STLMLC STLMLC [id number] [facility] 2021-10-02 00:00:00 2021-10-02 00:00:00 Transition of Care Ayo Simón TILLMAN [id number] 350.1.13.10 4.2.7.2.686 [id number] [facility] 2021-10-01 00:00:00 2021-10-01 00:00:00 (TEL) STLMLC STLMLC [id number] [facility] 2021-09-27 17:38:00 2021-09-30 15:22:00 Outpatient VIKASH [facility] [id number] [facility] 2021-09-27 17:38:00 2021-09-30 15:22:00 Outpatient VIKASH [facility] [id number] [facility] 2021-09-27 17:38:00 2021-09-30 15:22:00 Emergency Silva Szymanski Jelani [facility] 1..840.114 350.1.13.10 4.2.7.2.686 [id number] [facility] 2021-09-19 01:00:00 2021-09-19 01:00:00 Outpatient OWENS_T DMG [facility] [id number] [facility] 2021-08-10 10:31:00 2021-08-10 10:31:00 [place] [id number] [facility] 2021-08-07 02:14:00 2021-08-07 02:14:00 Outpatient CURRY_S DMG [facility] [id number] [facility] 2021-07-17 00:00:00 2021-07-17 00:00:00 (TEL) STLMLC STLMLC [id number] [facility] 2021-07-11 00:00:00 2021-07-11 00:00:00 OFFICE VISIT ESTAB PT LEVEL 4 STLMLC STLMLC [id number] [facility] 2021-07-10 00:00:00 2021-07-10 00:00:00 (TEL) STLMLC STLMLC [id number] [facility] 2021-07-04 00:00:00 2021-07-04 00:00:00 (TEL) STLMLC STLMLC [id number] [facility] 2021-06-26 00:00:00 2021-06-26 00:00:00 (TEL) STLMLC STLMLC [id number] [facility] 2021-05-29 00:00:00 2021-05-29 00:00:00 Outpatient STLMLC STLMLC [id number] [facility] 2021-05-22 05:13:00 2021-05-22 05:13:00 Outpatient CURRY_S DMG DMG [id number] [facility] 2021-05-22 00:00:00 2021-05-22 00:00:00 Outpatient STLMLC STLMLC [id number] [facility] 2021-05-04 00:00:00 2021-05-04 00:00:00 Outpatient STLMLC STLMLC [id number] [facility] 2021-04-30 00:00:00 2021-04-30 00:00:00 Outpatient STLMLC STLMLC [id number] [facility] 2021-04-30 00:00:00 2021-04-30 00:00:00 Outpatient STLMLC STLMLC [id number] [facility] 2021-04-06 00:00:00 2021-04-06 00:00:00 Outpatient STLMLC STLMLC [id number] [facility] 2021-01-29 06:02:00 2021-01-29 06:02:00 Outpatient DMG DMG [id number] [facility] 2021-01-18 12:00:00 2021-01-18 12:00:00 Outpatient [facility] [id number] [facility] 2020-08-14 14:12:00 2020-08-14 15:54:00 Emergency Love Pickard [facility] 1.2.840.114 350.1.13.10 4.2.7.2.686 [id number] [facility] 2020-08-14 14:12:00 2020-08-14 15:54:00 Emergency Love Pickard [facility] 1.2.840.114 350.1.13.10 4.2.7.2.686 [id number] Results Test Description Test Time Test Comments Results Result Co mments Source VITAMIN D, 25 [id number] 00:00:00* Test Item Value Reference Range Interpretation Comme nts VITAMIN D, 25 OH (test code = 1988-3) 40 NG/ML SEE BELOW NG/ML LIPID PANEL WITH REFLEX DIRECT [id number] 00:00:00* Test Item Value Reference Range Interpretation Comme nts CALC LDL CHOL (test code = 20778-3) 126 MG/DL See_Comment H [Automated [employer]] The system which generated this result transmitted reference range: <100 MG/DL. The reference range was not used to interpret this result as normal/abnormal. CHOLESTEROL (test code = 3-3) 210 MG/DL See_Comment H [Automated [employer]] The system which generated this result transmitted reference range: <200 MG/DL. The reference range was not used to interpret this result as normal/abnormal. HDL CHOLESTEROL (test code = 2084-9) 57 MG/DL See_Comment [Automated [employer]] The system which generated this result transmitted reference range: >39 MG/DL. The reference range was not used to interpret this result as normal/abnormal. RISK RATIO LDL/HDL (test code = 00721-8) 2.21 RATIO See_Comment [Automated message] The system which generated this result transmitted reference range: <3.55 RATIO. The reference range was not used to interpret this result as normal/abnormal. TRIGLYCERIDES (test code = 2571-8) 154 MG/DL See_Comment H [Automated messa ge] The system which generated this result transmitted reference range: <150 MG/DL. The reference range was not used to interpret this result as normal/abnormal. COMPREHENSIVE METABOLIC [id number] 00:00:00* Test Item Value Reference Range Interpretation Comme nts ALBUMIN (test code = 1751-7) 4.9 G/DL See_Comment [Automated messa ge] The system which generated this result transmitted reference range: 3.5-5.2 G/DL. The reference range was not used to interpret this result as normal/abnormal. ALKALINE PHOSPHATASE (test code = 6768-6) 143 U/L See_Comment H [Automated message] The system which generated this result transmitted reference range: 40-123 U/L. The reference range was not used to interpret this result as normal/abnormal. BILIRUBIN, TOTAL (test code = 1975-2) 0.4 MG/DL See_Comment [Automated message] The system which generated this result transmitted reference range: <=1.2 MG/DL. The reference range was not used to interpret this result as normal/abnormal. BUN (test code = 3094-0) 11 MG/DL See_Comment [Automated messa ge] The system which generated this result transmitted reference range: 8-23 MG/DL. The reference range was not used to interpret this result as normal/abnormal. CALCIUM (test code = 08875-0) 9.5 MG/DL See_Comment [Automated messa ge] The system which generated this result transmitted reference range: 8.5-10.5 MG/DL. The reference range was not used to interpret this result as normal/abnormal. CALC A/G RATIO (test code = 1759-0) 1.8 RATIO See_Comment [Automated messa ge] The system which generated this result transmitted reference range: 1.0-2.6 RATIO. The reference range was not used to interpret this result as normal/abnormal. CALC BUN/CREAT (test code = 3097-3) 10 RATIO See_Comment [Automated messa ge] The system which generated this result transmitted reference range: 6-28 RATIO. The reference range was not used to interpret this result as normal/abnormal. CALC GLOBULIN (test code = 83370-8) 2.7 G/DL See_Comment [Automated messa ge] The system which generated this result transmitted reference range: 1.9-3.7 G/DL. The reference range was not used to interpret this result as normal/abnormal. CARBON DIOXIDE (test code = 1962-8) 21 MEQ/L See_Comment [Automated messa ge] The system which generated this result transmitted reference range: 19-31 MEQ/L. The reference range was not used to interpret this result as normal/abnormal. CHLORIDE (test code = 2075-0) 105 MEQ/L See_Comment [Automated messa ge] The system which generated this result transmitted reference range: 95-107 MEQ/L. The reference range was not used to interpret this result as normal/abnormal. CREATININE (test code = 2160-0) 1.08 MG/DL See_Comment [Automated messa ge] The system which generated this result transmitted reference range: 0.80-1.40 MG/DL. The reference range was not used to interpret this result as normal/abnormal. eGFR (2020 CKD-EPI) (test code = 90706-0) 79 ML/MIN/1.73 See_Comment [Automated messa ge] The system which generated this result transmitted reference range: >60 ML/MIN/1.73. The reference range was not used to interpret this result as normal/abnormal. GLUCOSE (test code = 1558-6) 148 MG/DL See_Comment H [Automated messa ge] The system which generated this result transmitted reference range: 70-99 MG/DL. The reference range was not used to interpret this result as normal/abnormal. POTASSIUM (test code = 2823-3) 4.3 MEQ/L See_Comment [Automated messa ge] The system which generated this result transmitted reference range: 3.5-5.4 MEQ/L. The reference range was not used to interpret this result as normal/abnormal. PROTEIN, TOTAL (test code = 2885-2) 7.6 G/DL See_Comment [Automated messa ge] The system which generated this result transmitted reference range: 6.1-8.3 G/DL. The reference range was not used to interpret this result as normal/abnormal. AST (test code = 1920-8) 24 U/L See_Comment [Automated messa ge] The system which generated this result transmitted reference range: 9-50 U/L. The reference range was not used to interpret this result as normal/abnormal. ALT (test code = 1742-6) 18 U/L See_Comment [Automated messa ge] The system which generated this result transmitted reference range: 5-50 U/L. The reference range was not used to interpret this result as normal/abnormal. SODIUM (test code = 2951-2) 140 MEQ/L See_Comment [Automated messa ge] The system which generated this result transmitted reference range: 133-146 MEQ/L. The reference range was not used to interpret this result as normal/abnormal. CBC WITH [id number] 11:42:32* Test Item Value Reference Range Interpretation Comme nts WBC (test code = 6690-2) See_Comment [Automated messa ge] The system which generated this result transmitted reference range: 4.20 - 10.70 10*3/?L. The reference range was not used to interpret this result as normal/abnormal. RBC (test code = 789-8) See_Comment [Automated messa ge] The system which generated this result transmitted reference range: 4.26 - 5.52 10*6/?L. The reference range was not used to interpret this result as normal/abnormal. HGB (test code = 718-7) 13.7 g/dL 12.2-16.4 HCT (test code = 4544-3) 40.6 % 38.4-49.3 MCV (test code = 787-2) 90.0 fL 81.7-95.6 MCH (test code = 785-6) 30.4 pg 26.1-32.7 MCHC (test code = 786-4) 33.7 g/dL 31.2-35.0 RDW-SD (test code = 25860-0) 45.5 fL 38.5-51.6 RDW-CV (test code = 788-0) 13.8 % 12.1-15.4 PLT (test code = 777-3) See_Comment [Automated messa ge] The system which generated this result transmitted reference range: 150 - 328 10*3/?L. The reference range was not used to interpret this result as normal/abnormal. MPV (test code = 58844-5) 8.7 fL 9.8-13.0 L NRBC/100 WBC (test code = 2660051871) See_Comment [Automated me ssage] The system which generated this result transmitted reference range: 0.0 - 10.0 /100 WBCs. The reference range was not used to interpret this result as normal/abnormal. NRBC x10^3 (test code = 7171009139) See_Comment [Automated messa ge] The system which generated this result transmitted reference range: 10*3/?L. The reference range was not used to interpret this result as normal/abnormal. GRAN MAT (NEUT) % (test code = 770-8) 92.6 % IMM GRAN % (test code = 6431838200) 0.90 % LYMPH % (test code = 736-9) 5.3 % MONO % (test code = 5905-5) 0.6 % EOS % (test code = 713-8) 0.3 % BASO % (test code = 706-2) 0.3 % GRAN MAT x10^3(ANC) (test code = 5520129079) 9.61 10*3/uL 1.99-6.95 H IMM GRAN x10^3 (test code = 7912361203) 0.09 10*3/uL 0.00-0.06 H LYMPH x10^3 (test code = 731-0) 0.55 10*3/uL 1.09-3.23 L MONO x10^3 (test code = 742-7) 0.06 10*3/uL 0.36-1.02 L EOS x10^3 (test code = 711-2) 0.03 10*3/uL 0.06-0.53 L BASO x10^3 (test code = 704-7) 0.03 10*3/uL 0.01-0.09 Lab Interpretation (test code = 57614-5) [facility] 11:31:09 SALICYLATE<10mg/L10/20/2022 5:31 AM [facility]: ? Analgesic and Antipyretic Use ? 20- 100 mg/L ? ? Anti-Inflammatory Use ? 100-250 mg/L Toxic Range: ? Greater than 300 mg/LUnUT [facility] HospitalETHANOL2023-01-22 11:31:04ALCOHOL<10mg/dL10/20/2022 5:31 AM [facility]<10 Ognjvmue28-851 Toxic>100 Depression of CAFETERIA CLERK>400 Fatalities ReportedUnUT [facility] HospitalACETAMINOPHEN2023-01-22 11:30:59* Test Item Value Reference Range Interpretation Comme nts ACETAMINOP (test code = 3246165660) 10.0-30.0 L ISIDORO (test code = ISIDORO) Toxic: Greater porsche n 200 ug/mL @ 4 hour post ingestion or greater than 50 ug/mL @ 12 hour post ingestion Lab Interpretation (test code = 52155-1) Abnormal [facility] TexasCOM. METABOLIC PANEL (88135)2022-10-20 11:26:11* Test Item Value Reference Range Interpretation Comme nts NA (test code = 4214438802) 135 mmol/L 135-145 K (test code = 0142478394) 5.9 mmol/L 3.5-5.0 H CL (test code = 5167639755) 105 mmol/L 98-108 CO2 TOTAL (test code = 2545351236) 21 mmol/L 23-31 L AGAP (test code = 0154771296) 2-16 BUN (test code = 5823863589) 25 mg/dL 7-23 H GLUCOSE (test code = 5562631332) 127 mg/dL 70-110 H CREATININE (test code = 0512788433) 1.66 mg/dL 0.60-1.25 H TOTAL BILI (test code = 9096331050) 1.0 mg/dL 0.1-1.1 CALCIUM (test code = 4010543331) 8.9 mg/dL 8.6-10.6 T PROTEIN (test code = 8718072737) 7.9 g/dL 6.3-8.2 ALBUMIN (test code = 1451121945) 4.6 g/dL 3.5-5.0 ALK PHOS (test code = 4749546605) 134 U/L 34-122 H ALTv (test code = 1742-6) 30 U/L 5-50 AST(SGOT) (test code = 8114672395) 45 U/L 13-40 H eGFR (test code = 9878539796) mL/min/1.73m2 ISIDORO (test code = ISIDORO) Association [...] imaging tests). Lab Interpretation (test code = 48400-9) Abnormal [facility] METABOLIC PANEL (NA, K, CL, CO2, GLUCOSE, BUN, CREATININE, CA)2022-08-30 18:07:32* Test Item Value Reference Range Interpretation Comme nts NA (test code = 2355882849) 143 mmol/L 135-145 K (test code = 8727778357) 4.1 mmol/L 3.5-5.0 CL (test code = 3383442827) 115 mmol/L 98-108 H CO2 TOTAL (test code = 0260326593) 19 mmol/L 23-31 L AGAP (test code = 4729724137) 2-16 BUN (test code = 2135581515) 33 mg/dL 7-23 H GLUCOSE (test code = 1075629016) 66 mg/dL 70-110 L CREATININE (test code = 8943903689) 1.99 mg/dL 0.60-1.25 H CALCIUM (test code = 0004207433) 8.3 mg/dL 8.6-10.6 L eGFR (test code = 8906667975) mL/min/1.73m2 ISIDORO (test code = ISIDORO) Association [...] imaging tests). Lab Interpretation (test code = 28172-2) Abnormal [facility] TexasTRCR[facility] [id number] 15:44:49* Test Item Value Reference Range Interpretation Comments TROPONIN I (test code = 6926167887) 0.004 ng/mL See_Comment [Automated message] The system which generated this result transmitted reference range: <=0.034. The reference range was not used to interpret this result as normal/abnormal. ISIDORO (test code = ISIDORO) Reference (Normal) [...] to patient's use of biotin. Lab Interpretation (test code = 69264-6) Normal [facility]2022-12-02 15:27:10 ALCOHOL<10mg/dL08/30/2022 9:27 [facility] Omdepmre30-339 Toxic>100 Depression of CAFETERIA CLERK>400 Fatalities ReportedBapt[facility] TexasCOMP. METABOLIC PANEL (99716)2022-08-30 15:24:23* Test Item Value Reference Range Interpretation Comme nts NA (test code = 7120939681) 144 mmol/L 135-145 K (test code = 6897112120) 3.9 mmol/L 3.5-5.0 CL (test code = 3616662574) 109 mmol/L 98-108 H CO2 TOTAL (test code = 6758224551) 22 mmol/L 23-31 L AGAP (test code = 2528833022) 2-16 BUN (test code = 5870415543) 37 mg/dL 7-23 H GLUCOSE (test code = 7797297804) 86 mg/dL 70-110 CREATININE (test code = 8096873597) 2.47 mg/dL 0.60-1.25 H TOTAL BILI (test code = 8456328800) 0.8 mg/dL 0.1-1.1 CALCIUM (test code = 6040014047) 9.3 mg/dL 8.6-10.6 T PROTEIN (test code = 7295279933) 7.0 g/dL 6.3-8.2 ALBUMIN (test code = 1107090746) 4.4 g/dL 3.5-5.0 ALK PHOS (test code = 7527515617) 119 U/L 34-122 ALTv (test code = 1742-6) 22 U/L 5-50 AST(SGOT) (test code = 8865567271) 38 U/L 13-40 eGFR (test code = 0358801234) mL/min/1.73m2 ISIDORO (test code = ISIDORO) Association [...] imaging tests). Lab Interpretation (test code = 24963-2) [facility]* Test Item Value Reference Range Interpretation Comme nts MAGNESIUM (test code = 4452478477) 2.1 mg/dL 1.7-2.4 Lab Interpretation (test cod e = 96613-9) Normal [facility] WITH NXOK5734-27-70 14:36:33* Test Item Value Reference Range Interpretation Comme nts WBC (test code = 6690-2) See_Comment [Automated messa ge] The system which generated this result transmitted reference range: 4.20 - 10.70 10*3/?L. The reference range was not used to interpret this result as normal/abnormal. RBC (test code = 789-8) See_Comment [Automated messa ge] The system which generated this result transmitted reference range: 4.26 - 5.52 10*6/?L. The reference range was not used to interpret this result as normal/abnormal. HGB (test code = 718-7) 12.9 g/dL 12.2-16.4 HCT (test code = 4544-3) 39.4 % 38.4-49.3 MCV (test code = 787-2) 92.1 fL 81.7-95.6 MCH (test code = 785-6) 30.1 pg 26.1-32.7 MCHC (test code = 786-4) 32.7 g/dL 31.2-35.0 RDW-SD (test code = 58116-8) 44.7 fL 38.5-51.6 RDW-CV (test code = 788-0) 13.2 % 12.1-15.4 PLT (test code = 777-3) See_Comment [Automated [employer] ge] The system which generated this result transmitted reference range: 150 - 328 10*3/?L. The reference range was not used to interpret this result as normal/abnormal. MPV (test code = 22335-6) 9.7 fL 9.8-13.0 L NRBC/100 WBC (test code = 5550170569) See_Comment [Automated [employer] ssage] The system which generated this result transmitted reference range: 0.0 - 10.0 /100 WBCs. The reference range was not used to interpret this result as normal/abnormal. NRBC x10^3 (test code = 4037363742) See_Comment [Automated messa ge] The system which generated this result transmitted reference range: 10*3/?L. The reference range was not used to interpret this result as normal/abnormal. GRAN MAT (NEUT) % (test code = 770-8) 62.1 % IMM GRAN % (test code = 4912418314) 0.50 % LYMPH % (test code = 736-9) 22.6 % MONO % (test code = 5905-5) 9.1 % EOS % (test code = 713-8) 5.2 % BASO % (test code = 706-2) 0.5 % GRAN MAT x10^3(ANC) (test code = 9823688766) 5.38 10*3/uL 1.99-6.95 IMM GRAN x10^3 (test code = 2327792250) 0.04 10*3/uL 0.00-0.06 LYMPH x10^3 (test code = 731-0) 1.96 10*3/uL 1.09-3.23 MONO x10^3 (test code = 742-7) 0.79 10*3/uL 0.36-1.02 EOS x10^3 (test code = 711-2) 0.45 10*3/uL 0.06-0.53 BASO x10^3 (test code = 704-7) 0.04 10*3/uL 0.01-0.09 Lab Interpretation (test code = 90367-0) [id number] 10:17:19* Test Item Value Reference Range Interpretation Comments TROPONIN I (test code = 2009426234) 0.007 ng/mL See_Comment [Automated message] The system which generated this result transmitted reference range: <=0.034. The reference range was not used to interpret this result as normal/abnormal. ISIDORO (test code = ISIDORO) Reference (Normal) [...] to patient's use of biotin. Lab Interpretation (test code = 91091-8) [facility] 10:05:38* Test Item Value Reference Range Interpretation Comme nts MAGNESIUM (test code = 4439253484) 2.1 mg/dL 1.7-2.4 Lab Interpretation (test cod e = 20571-3) Normal [facility] METABOLIC PANEL (NA, K, CL, CO2, GLUCOSE, BUN, CREATININE, CA)2022-05-24 10:05:18* Test Item Value Reference Range Interpretation Comme nts NA (test code = 9390239631) 136 mmol/L 135-145 K (test code = 9563285468) 4.9 mmol/L 3.5-5 CL (test code = 3875173840) 109 mmol/L 98-108 H CO2 TOTAL (test code = 7895816863) 21 mmol/L 23-31 L AGAP (test code = 0127109630) 2-16 BUN (test code = 0476684885) 27 mg/dL 7-23 H GLUCOSE (test code = 2527847959) 89 mg/dL 70-110 CREATININE (test code = 3832597952) 1.62 mg/dL 0.6-1.25 H CALCIUM (test code = 5904415271) 8.5 mg/dL 8.6-10.6 L eGFR (test code = 0548792943) mL/min/1.73m2 ISIDORO (test code = ISIDORO) Association [...] imaging tests). Lab Interpretation (test code = 74975-9) Abnormal [facility] WITH [id number] 09:31:37* Test Item Value Reference Range Interpretation Comme nts WBC (test code = 6690-2) See_Comment [Automated [employer]] The system which generated this result transmitted reference range: 4.20 - 10.70 10*3/?L. The reference range was not used to interpret this result as normal/abnormal. RBC (test code = 789-8) See_Comment L [Automated [employer]] The system which generated this result transmitted reference range: 4.26 - 5.52 10*6/?L. The reference range was not used to interpret this result as normal/abnormal. HGB (test code = 718-7) 11.6 g/dL 12.2-16.4 L HCT (test code = 4544-3) 34.8 % 38.4-49.3 L MCV (test code = 787-2) 92.3 fL 81.7-95.6 MCH (test code = 785-6) 30.8 pg 26.1-32.7 MCHC (test code = 786-4) 33.3 g/dL 31.2-35 RDW-SD (test code = 72841-1) 43.6 fL 38.5-51.6 RDW-CV (test code = 788-0) 13.1 % 12.1-15.4 PLT (test code = 777-3) See_Comment [Automated [employer]] The system which generated this result transmitted reference range: 150 - 328 10*3/?L. The reference range was not used to interpret this result as normal/abnormal. MPV (test code = 65034-6) 9.3 fL 9.8-13 L NRBC/100 WBC (test code = 3060622862) See_Comment [Automated me ssage] The system which generated this result transmitted reference range: 0.0 - 10.0 /100 WBCs. The reference range was not used to interpret this result as normal/abnormal. NRBC x10^3 (test code = 9797971632) See_Comment [Automated messa ge] The system which generated this result transmitted reference range: 10*3/?L. The reference range was not used to interpret this result as normal/abnormal. GRAN MAT (NEUT) % (test code = 770-8) 56.1 % IMM GRAN % (test code = 8558111063) 0.40 % LYMPH % (test code = 736-9) 27.1 % MONO % (test code = 5905-5) 9.9 % EOS % (test code = 713-8) 5.8 % BASO % (test code = 706-2) 0.7 % GRAN MAT x10^3(ANC) (test code = 8442024759) 4.53 10*3/uL 1.99-6.95 IMM GRAN x10^3 (test code = 2035868907) 0.03 10*3/uL 0-0.06 LYMPH x10^3 (test code = 731-0) 2.19 10*3/uL 1.09-3.23 MONO x10^3 (test code = 742-7) 0.80 10*3/uL 0.36-1.02 EOS x10^3 (test code = 711-2) 0.47 10*3/uL 0.06-0.53 BASO x10^3 (test code = 704-7) 0.06 10*3/uL 0.01-0.09 Lab Interpretation (test code = 45804-4) Abnormal [facility] [id number] 04:35:45* Test Item Value Reference Range Interpretation Comments TROPONIN I (test code = 1330065238) 0.004 ng/mL See_Comment [Automated message] The system which generated this result transmitted reference range: <=0.034. The reference range was not used to interpret this result as normal/abnormal. ISIDORO (test code = ISIDORO) Reference (Normal) [...] to patient's use of biotin. Lab Interpretation (test code = 65629-7) Normal [facility]22-[facility]-24 01:26:40* Test Item Value Reference Range Interpretation Comme nts Height (test code = 8247391317) in Weight (test code = 1788796006) lbs Systolic BP (test code = 0180715193) mmHg Diastolic BP (test code = 4736848678) mmHg Heart Rate (test code = 2690725996) bpm BSA (test code = 8553380806) 2.09 m2 Ao root annulus (test code = 0579472191) 3.2 cm Ao root diam (test code = 2319290458) 3.20 cm Aortic root (test code = 3280677437) 3.2 cm LVOT diameter (test code = 1094332837) 2.14 cm LVIDD (test code = 5678358276) 5.00 cm IVS (test code = 7685199597) 1.31 cm Interventricular Septum Diastolic Thickness by 2D (test code = 8444262) 1.31 cm LVPWD (test code = 4137765740) 1.32 cm PW (test code = 0273331354) 1.32 cm 0.6-1.1 EF(Teich) (test code = 9194301632) 61.30 % LVIDS (test code = 7482296041) 3.30 cm FS (test code = 2267554343) 33 % EF - 2D (test code = 88924618) 61.30 % LA size (test code = 8981960302) 3.6 cm TR Peak Mayank (test code = 7436255097) 261.9 cm/s Triscuspid Valve Regurgitation Peak Gradient (test code = 2626128988) mmHg LAV(MOD-sp4) (test code = 4333924384) 59.10 mL E wave decelartion time (test code = 1258735670) 0.23 s MV Peak E Mayank (test code = 2380619033) 73.6 cm/s MV stenosis pressure 1/2 time (test code = 5317965936) 70.2 ms MV Peak A Mayank (test code = 1819702986) 55.9 cm/s E/A ratio (test code = 8527265300) ratio MV Prop V (test code = 9520915909) 58.20 cm/s MV E/e' septal (test code = 3392037725) 12.2 cm/s Tapse (test code = 0844965618) 2.9 cm LVOT stroke volume (test code = 6420784417) 103.80 cm3 LVOT peak mayank (test code = 7971866248) 147.2 cm/s LVOT mn grad (test code = 7486435403) mmHg AV LVOT peak gradient (test code = 7456426862) mmHg LVOT peak VTI (test code = 3945584613) 28.7 cm LV V1 mean (test code = 8869789336) 93.00 cm/s Aortic valve mean velocity (test code = 6733325492) 119.4 cm/s Ao peak mayank (test code = 9603964943) 165.6 cm/s Ao VTI (test code = 8512561797) 35.2 cm AV area by cont VTI (test code = 8055119427) 2.9 cm2 AV area peak mayank (test code = 4440515174) 3.2 cm2 Ao max PG (test code = 8773904058) 11.00 mm[Hg] AV peak gradient (test code = 2749598959) mmHg AV valve area (test code = 1746526283) 2.90 cm2 AV mean gradient (test code = 0121857870) mmHg Radiology Study observation (narrative) (test code = 98467-7) ISIDORO (test code = ISIDORO) Formatting of [...] flow Doppler and spectral Doppler. [facility] [id number] 14:25:35* Test Item Value Reference Range Interpretation Comments TROPONIN I (test code = 4181449504) 0.009 ng/mL See_Comment [Automated message] The system which generated this result transmitted reference range: <=0.034. The reference range was not used to interpret this result as normal/abnormal. ISIDORO (test code = ISIDORO) Reference (Normal) [...] to patient's use of biotin. Lab Interpretation (test code = 56724-8) Normal [facility]. METABOLIC PANEL (14481)2022-05-23 14:14:13* Test Item Value Reference Range Interpretation Comme nts NA (test code = 9907233406) 143 mmol/L 135-145 K (test code = 8338320895) 5.0 mmol/L 3.5-5 CL (test code = 1702096385) 111 mmol/L 98-108 H CO2 TOTAL (test code = 2624306944) 20 mmol/L 23-31 L AGAP (test code = 0740948405) 2-16 BUN (test code = 4548649978) 30 mg/dL 7-23 H GLUCOSE (test code = 4580975312) 85 mg/dL 70-110 CREATININE (test code = 9692985456) 2.07 mg/dL 0.6-1.25 H TOTAL BILI (test code = 4342709192) 0.6 mg/dL 0.1-1.1 CALCIUM (test code = 4382079083) 9.0 mg/dL 8.6-10.6 T PROTEIN (test code = 8229609023) 7.2 g/dL 6.3-8.2 ALBUMIN (test code = 7888286377) 4.4 g/dL 3.5-5 ALK PHOS (test code = 0143880005) 121 U/L 34-122 ALTv (test code = 1742-6) 23 U/L 5-50 AST(SGOT) (test code = 9283400651) 29 U/L 13-40 eGFR (test code = 8458481719) mL/min/1.73m2 ISIDORO (test code = ISIDORO) Association [...] imaging tests). Lab Interpretation (test code = 47992-0) Abnormal [facility] WITH [id number] 14:11:10* Test Item Value Reference Range Interpretation Comme nts WBC (test code = 6690-2) See_Comment H [Automated [employer]] The system which generated this result transmitted reference range: 4.20 - 10.70 10*3/?L. The reference range was not used to interpret this result as normal/abnormal. RBC (test code = 789-8) See_Comment [Automated [employer]] The system which generated this result transmitted reference range: 4.26 - 5.52 10*6/?L. The reference range was not used to interpret this result as normal/abnormal. HGB (test code = 718-7) 13.5 g/dL 12.2-16.4 HCT (test code = 4544-3) 40.3 % 38.4-49.3 MCV (test code = 787-2) 91.4 fL 81.7-95.6 MCH (test code = 785-6) 30.6 pg 26.1-32.7 MCHC (test code = 786-4) 33.5 g/dL 31.2-35 RDW-SD (test code = 55458-9) 42.9 fL 38.5-51.6 RDW-CV (test code = 788-0) 12.9 % 12.1-15.4 PLT (test code = 777-3) See_Comment H [Automated [employer]] The system which generated this result transmitted reference range: 150 - 328 10*3/?L. The reference range was not used to interpret this result as normal/abnormal. MPV (test code = 94117-8) 9.0 fL 9.8-13 L NRBC/100 WBC (test code = 9663173536) See_Comment [Automated me ssage] The system which generated this result transmitted reference range: 0.0 - 10.0 /100 WBCs. The reference range was not used to interpret this result as normal/abnormal. NRBC x10^3 (test code = 4306588566) See_Comment [Automated messa ge] The system which generated this result transmitted reference range: 10*3/?L. The reference range was not used to interpret this result as normal/abnormal. GRAN MAT (NEUT) % (test code = 770-8) 71.9 % IMM GRAN % (test code = 5252183574) 0.40 % LYMPH % (test code = 736-9) 16.1 % MONO % (test code = 5905-5) 8.4 % EOS % (test code = 713-8) 2.5 % BASO % (test code = 706-2) 0.7 % GRAN MAT x10^3(ANC) (test code = 8971269179) 8.20 10*3/uL 1.99-6.95 H IMM GRAN x10^3 (test code = 8430771113) 0.05 10*3/uL 0-0.06 LYMPH x10^3 (test code = 731-0) 1.84 10*3/uL 1.09-3.23 MONO x10^3 (test code = 742-7) 0.96 10*3/uL 0.36-1.02 EOS x10^3 (test code = 711-2) 0.29 10*3/uL 0.06-0.53 BASO x10^3 (test code = 704-7) 0.08 10*3/uL 0.01-0.09 Lab Interpretation (test code = 23988-0) Abnormal [facility]"
--- NOTE | 2023-09-18 22:11 | EDPHYS ---
Physician Documentation [facility] Name: Wood Jj Age: 63 yrs Sex: Male : 1960 Arrival Date: 09/18/2023 Time: 20:59 Bed 20 Private MD: ED Physician Hiral Ross HPI: 09/18 21:49 This 63 yrs old Male presents to ER via Ambulatory with complaints of Right shoulder sp3 injury. 21:49 63-year-old male with extensive past medical history documented above now presents to sp3 the ED with right shoulder pain after "picking up a 50 pound bag of concrete" earlier today. He thinks it is dislocated and states that any attempt to move it results in pain. He "heard a pop". No fall, head injury or any other trauma reported. ROS otherwise negative for hand pain, elbow pain, neck pain, chest pain, back pain, or any other signs or symptoms on ROS at this time.. Historical: - Allergies: 21:28 Alprazolam; pf1 21:28 Amitriptyline; pf1 21:28 amphetamine aspartate; pf1 21:28 amphetamine sulfate; pf1 21:28 Ativan; pf1 21:28 Benadryl; pf1 21:28 BENZODIAZEPINES; pf1 21:28 dextroamphetamine saccharate; pf1 21:28 dextroamphetamine sulfate; pf1 21:28 Lorazepam; pf1 21:28 PENICILLINS; pf1 21:28 Trazodone; pf1 21:28 Valium; pf1 21:28 venom-honey bee; pf1 21:28 diazepam; pf1 21:28 venom-wasp; pf1 21:28 Xanax; pf1 - PMHx: 21:28 drug abuse; Hypercholesterolemia; Hypertension; Myocardial infarction; stroke; pf1 - PSHx: 21:28 Appendectomy; eye sx; Hemorrhoidectomy; Hernia sx; right hand (Hernia sx); pf1 - Immunization history:: Adult Immunizations not up to date, Client reports having NOT received the Covid vaccine. Last tetanus immunization: < 5 years ago Flu vaccine is not up to date. - Social history:: Smoking status: Patient reports the use of cigarette tobacco products, smokes one-half pack cigarettes per day, Patient/guardian denies using alcohol, street drugs. ROS: 21:50 Constitutional: Negative for fever, chills, and weight loss, Eyes: Negative for injury, sp3 pain, redness, and discharge, ENT: Negative for injury, pain, and discharge, Neck: Negative for injury, pain, and swelling, Cardiovascular: Negative for chest pain, palpitations, and edema, Respiratory: Negative for shortness of breath, cough, wheezing, and pleuritic chest pain, Abdomen/GI: Negative for abdominal pain, nausea, vomiting, diarrhea, and constipation, Back: Negative for injury and pain, Skin: Negative for injury, rash, and discoloration, Neuro: Negative for headache, weakness, numbness, tingling, and seizure, Psych: Negative for depression, anxiety, suicide ideation, homicidal ideation, and hallucinations, Allergy/Immunology: Negative for hives, rash, and allergies, Endocrine: Negative for neck swelling, polydipsia, polyuria, polyphagia, and marked weight changes, 21:50 All other systems are negative, Exam: 21:51 Constitutional: This is a well developed, well nourished patient who is awake, alert, sp3 and in no acute distress. Head/Face: Normocephalic, atraumatic. Eyes: Pupils equal round and reactive to light, extra-ocular motions intact. Lids and lashes normal. Conjunctiva and sclera are non-icteric and not injected. Cornea within normal limits. Periorbital areas with no swelling, redness, or edema. Chest/axilla: Normal chest wall appearance and motion. Nontender with no deformity. No lesions are appreciated. Cardiovascular: Regular rate and rhythm with a normal S1 and S2. No gallops, murmurs, or rubs. Normal PMI, no JVD. No pulse deficits. Respiratory: Lungs have equal breath sounds bilaterally, clear to auscultation and percussion. No rales, rhonchi or wheezes noted. No increased work of breathing, no retractions or nasal flaring. Skin: Warm, dry with normal turgor. Normal color with no rashes, no lesions, and no evidence of cellulitis. Neuro: Awake and alert, GCS 15, oriented to person, place, time, and situation. Cranial nerves II-XII grossly intact. Motor strength 5/5 in all extremities. Sensory grossly intact. Cerebellar exam normal. Normal gait. 21:51 Musculoskeletal/extremity: Limited exam due to patient cooperation. No acromial step-off noted. Neurovascular exam distally into the hand is normal. X-rays pending.. Vital Signs: 21:22 BP 165 / 100; Pulse 73; Resp 18; Temp 98.8; Pulse Ox 96% on R/A; Weight 85.73 kg; pf1 Height 5 ft. 6 in. ; Pain 9/10; 22:50 BP 149 / 77; Pulse 71; Resp 16; Pulse Ox 97% on R/A; Pain 5/10; pf1 21:22 Body Mass Index 30.51 (85.73 kg, 167.64 cm) pf1 21:22 Pain Scale: Adult pf1 22:50 Pain Scale: Adult pf1 MDM: 21:39 Patient medically screened. sp3 21:51 Data reviewed: vital signs, nurses notes, radiologic studies. ED course: 63-year-old sp3 male with right shoulder injury. X-rays pending. Consider pulled muscle versus dislocation versus fracture. Low degree of suspicion for dislocation however. Disposition pending x-ray and pain control.. 22:08 ED course: X-ray demonstrates no dislocation or fracture. Will place patient in a sp3 sling, administer Bittinger 2 tabs p.o. in the ED, and discharge patient home on NSAID and follow-up with orthopedics with outpatient MRI if needed.. 12 21:39 Order name: Shoulder Right (2 View) XRAY; Complete Time: 22:40 sp3 09/18 22:08 Order name: Sling; Complete Time: 22:38 sp3 Administered Medications: 22:37 Drug: HYDROcodone-acetaminophen PO 5 mg-325 mg 2 tabs PO once Route: PO; pf1 22:51 Follow up: Response: No adverse reaction; Marked relief of symptoms; Pain is decreased; pf1 RASS: Alert and Calm (0) Disposition Summary: 09/18/23 22:10 Discharge Ordered Notes: Location: Home sp3 Condition: Stable sp3 Diagnosis - Shoulder sprain sp3 Followup: sp3 - With: Greg Cummings MD - When: Upon discharge from the Emergency Department - Reason: Continuance of care Discharge Instructions: - Discharge Summary Sheet sp3 - Shoulder Sprain sp3 Forms: - Medication Reconciliation Form sp3 - Thank You Letter sp3 - Antibiotic Education sp3 - Prescription Opioid Use sp3 - Patient Portal Instructions sp3 - Leadership Thank You Letter sp3 Prescriptions: - Diclofenac Sodium 75 mg Oral Tablet Sustained Release - take 1 tablet ORAL route 2 times per day; 30 tablet; Refills: 0, Product sp3 Selection Permitted Signatures: Dispatcher [employer] Hiral Bradley MD MD sp3 Tammy Winslow RN RN pf1 Corrections: (The following items were deleted from the chart) 21:31 21:28 Allergies: ketorolac tromethamine; pf1 pf1
--- NOTE | 2023-09-18 22:11 | ER ---
Nurse's Notes [facility] Name: Wood Jj Age: 63 yrs Sex: Male : 1960 Arrival Date: 09/18/2023 Time: 20:59 Bed 20 Private MD: Diagnosis: Shoulder sprain Presentation: 09/18 21:22 Chief complaint: Patient states: right shoulder to right arm pain of 9,onset 4 hours pf1 ago while picking up a 50-lb bag of concrete mix. Patient stated heard and felt a pop from right shoulder. Patient denies any fall. Coronavirus screen: Vaccine status: Patient reports being unvaccinated. Client denies travel out of the [place] in the last 14 days. At this time, the client does not indicate any symptoms associated with coronavirus-19. Ebola Screen: Patient negative for fever greater than or equal to 101.5 degrees Fahrenheit, and additional compatible Ebola Virus Disease symptoms. Initial Sepsis Screen: Does the patient meet any 2 criteria? No. Patient's initial sepsis screen is negative. Does the patient have a suspected source of infection? No. Patient's initial sepsis screen is negative. Risk Assessment: Do you want to hurt yourself or someone else? Patient reports no desire to harm self or others. 21:22 Method Of Arrival: Ambulatory pf1 21:22 Acuity: LISA 3 pf1 Historical: - Allergies: 21:28 Alprazolam; pf1 21:28 Amitriptyline; pf1 21:28 amphetamine aspartate; pf1 21:28 amphetamine sulfate; pf1 21:28 Ativan; pf1 21:28 Benadryl; pf1 21:28 BENZODIAZEPINES; pf1 21:28 dextroamphetamine saccharate; pf1 21:28 dextroamphetamine sulfate; pf1 21:28 Lorazepam; pf1 21:28 PENICILLINS; pf1 21:28 Trazodone; pf1 21:28 Valium; pf1 21:28 venom-honey bee; pf1 21:28 diazepam; pf1 21:28 venom-wasp; pf1 21:28 Xanax; pf1 - PMHx: 21:28 drug abuse; Hypercholesterolemia; Hypertension; Myocardial infarction; stroke; pf1 - PSHx: 21:28 Appendectomy; eye sx; Hemorrhoidectomy; Hernia sx; right hand (Hernia sx); pf1 - Immunization history:: Adult Immunizations not up to date, Client reports having NOT received the Covid vaccine. Last tetanus immunization: < 5 years ago Flu vaccine is not up to date. - Social history:: Smoking status: Patient reports the use of cigarette tobacco products, smokes one-half pack cigarettes per day, Patient/guardian denies using alcohol, street drugs. Screenin:00 [facility] ED Fall Risk Assessment (Adult) History of falling in the last 3 months, pf1 including since admission No falls in past 3 months (0 pts) Confusion or Disorientation No (0 pts) Intoxicated or Sedated No (0 pts) Impaired Gait No (0 pts) Mobility Assist Device Used No (0 pt) Altered Elimination No (0 pt) Score/Fall Risk Level 0 - 2 = Low Risk Oriented to surroundings, Maintained a safe environment, Educated pt \T\ family on fall prevention, incl call for assistance when getting out of bed, Assessed \T\ reinforced patient's understanding of fall precautions, Provided non-skid footwear, Hourly rounding (assess needs \T\ fall precautionary measures) done, Used ambulatory aids as needed (educated on \T\ assisted with), Used gait belt as appropriate. 22:00 Abuse screen: Denies threats or abuse. Nutritional screening: No deficits noted. pf1 Tuberculosis screening: No symptoms or risk factors identified. Assessment: 22:00 General: Appears in no apparent distress. uncomfortable, well developed, Behavior is pf1 calm, cooperative, appropriate for age, quiet. 22:00 Pain: Complains of pain in right arm and right shoulder Pain currently is 9 out of 10 pf1 on a pain scale. Pain began 4 hours ago. Neuro: No deficits noted. Level of Consciousness is awake, alert, obeys commands, Oriented to person, place, time, situation. Cardiovascular: No deficits noted. Capillary refill < 3 seconds Patient's skin is warm and dry. Respiratory: No deficits noted. Airway is patent Respiratory effort is even, unlabored, Respiratory pattern is regular, symmetrical. GI: No deficits noted. No signs and/or symptoms were reported involving the gastrointestinal system. : No deficits noted. No signs and/or symptoms were reported regarding the genitourinary system. EENT: No deficits noted. No signs and/or symptoms were reported regarding the EENT system. Derm: No deficits noted. No signs and/or symptoms reported regarding the dermatologic system. Musculoskeletal: Circulation, motion, and sensation intact. Capillary refill < 3 seconds, Range of motion: limited in right shoulder Reports pain in right arm and right shoulder Pain is 9 out of 10 on a pain scale. Vital Signs: 21:22 BP 165 / 100; Pulse 73; Resp 18; Temp 98.8; Pulse Ox 96% on R/A; Weight 85.73 kg; pf1 Height 5 ft. 6 in. ; Pain 9/10; 22:50 BP 149 / 77; Pulse 71; Resp 16; Pulse Ox 97% on R/A; Pain 5/10; pf1 21:22 Body Mass Index 30.51 (85.73 kg, 167.64 cm) pf1 21:22 Pain Scale: Adult pf1 22:50 Pain Scale: Adult pf1 ED Course: 21:03 Patient arrived in ED. ae5 21:04 Hiral Ross MD is Attending Physician. sp3 21:28 Triage completed. pf1 21:33 Dylan Cummins, BRIGIDA is Primary Nurse. bp 21:33 Arm band placed on. bp 21:33 Patient has correct armband on for positive identification. pf1 22:09 Greg Cummings MD is Referral Physician. sp3 22:12 Shoulder Right (2 View) XRAY In Process Unspecified. EDMS 22:49 No provider procedures requiring assistance completed. Patient did not have IV access pf1 during this emergency room visit. 22:50 Provided Education on: prescription. pf1 22:50 Sling \T\ swathe to right arm. pf1 Administered Medications: 22:37 Drug: HYDROcodone-acetaminophen PO 5 mg-325 mg 2 tabs PO once Route: PO; pf1 22:51 Follow up: Response: No adverse reaction; Marked relief of symptoms; Pain is decreased; pf1 RASS: Alert and Calm (0) Medication: 22:52 VIS not applicable for this client. pf1 Outcome: 22:10 Discharge ordered by . sp3 22:51 Discharged to home ambulatory, pf1 22:51 Condition: improved 22:51 Discharge instructions given to patient, Instructed on discharge instructions, follow up and referral plans. Demonstrated understanding of instructions, follow-up care, medications, Prescriptions given X 1, 22:52 Patient left the ED. pf1 Signatures: Dispatcher [employer] EDMS Dylan Cummins RN RN bp Hiral Ross MD MD sp3 Tammy Winslow RN RN pf1 Sharonda Medel ae5 Corrections: (The following items were deleted from the chart) 21:31 21:28 Allergies: ketorolac tromethamine; pf1 pf1 22:52 22:51 Patient has correct armband on for positive identification. pf1 pf1
--- NOTE | 2023-09-18 22:24 | RAD REPORT ---
EXAM DESCRIPTION: Shoulder Right 2 View - 09/18/2023 10:10 pm CLINICAL HISTORY: pain possible dislocation COMPARISON: No comparisons TECHNIQUE: Internal and external rotation views of the right shoulder were obtained. FINDINGS: There is no fracture or dislocation. AC joint moderate degenerative changes. No acute or s uspicious findings. IMPRESSION: No acute osseous abnormality. Moderate AC joint degenerative changes
[2023-09-19 01:58] VITALS: TEMP 98.8
[2023-09-19 02:03] VITALS: BP 149/77; O2SAT 97
== END ==
LOC: ER 20:59
DX: S43.401A Unspecified sprain of right shoulder joint, initial encounter (principal)
CPT/HCPCS: 99283

== ENCOUNTER → 2023-10-31 | Emergency (ER) | payer MEDICARE, OTHER ==
[~2023-10-31] MED LIST changes: -HYDROCODONE/APAP 5/325 MG TAB ONE; +KETOROLAC 30 MG/ML INJ ONE; +METOCLOPRAMIDE 10 MG/2mL INJ ONE; +NA CHLORIDE 0.9% 500 ML ONE; +dexAMETHasone 10 MG/ML VIAL ONE
--- OUTSIDE RECORDS SUMMARY | 2023-10-31 18:20 | XMS REPORT | Continuity of Care Document ---
Author Name Unknown Address [address] [facility] [place] [address] [facility] Address [address] [facility] [address] [place] [address] Care Team Providers Care Farm Planner Name Role Phone Cody Mahad M Primary Care Physician [phone] Rosana Red Attending Clinician Unavail able Mahad Ross Lexx Attending Clinician Unavailable [place]_B Attending Clinician Unavailable ZANE LIU Attending Clinician Unavailable ZANE LIU Attending Clinician Unavailable CHRISTEN OBANDO Attending Clinician Unavailable Christen Obando DO Attending Clinician [phone] GERTRUDE CHINCHILLA Attending Clinician Unavailab Gertrude Contreras DO Attending Clinician [phone] Cobb_T Attending Clinician Unavailable Simón Rollins RN Attending Clinician Unavail able CALLIE CUELLAR Attending Clinician Unavailable Callie Cuellar DO Attending Clinician [phone] Deshazo_T Attending Clinician Unavailable Doctor Unassigned, [place] Attending Clinician U navailable NEELA ALBARADO Attending Clinician Unavail able NEELA ALBARADO Attending Clinician Unavail able VIKASH GRIMALDO Attending Clinician Unavailable Silva Szymanski MD Attending Clinician [phone] Vikash Grimaldo MD Attending Clinician [phone] OW_Will Attending Clinician Unavailable PARAG_S Attending Clinician Unavailable Love Campbell Attending Clinician [phone] [place]Air[place]ale_B Admitting Clinician Unavailable CHRISTEN OBANDO Admitting Clinician Unavailable GERTRUDE CHINCHILLA Admitting Clinician Unavailab le Cobb_T Admitting Clinician Unavailable CALLIE CUELLAR Admitting Clinician Unavailable Callie Cuellar DO Admitting Clinician [phone] Deshazo_T Admitting Clinician Unavailable VIKASH GRIMALDO Admitting Clinician Unavailable Vikash Grimaldo MD Admitting Clinician [phone] MARIAH_Will Admitting Clinician Unavailable PARAG_Yajaira Admitting Clinician Unavailable Payers Payer Name Policy Type Policy Number Effective Date Expiration Date Source [facility] (MEDICARE REPLACEMENT HMO) [id number] 2021 00:00:00 [employer]AN [id number] 2020 00:00:00 [place] [id number] 2021 00:00:00 [place] [address] [id number] 2021 00:00:00 [place] [address] [id number] 2021 00:00:00 [place] [address] [id number] 2021 00:00:00 [facility] Problems Condition Name Condition Details Condition Category Status Onset Date Resolution Date Last Treatment Date Treating Clinician Comments Source Chest pain, unspecifie d type Chest pain, unspecifie d type Disease Active 05-23 00:00: 00 [facility] Other hyperlipid emia Other hyperlipid emia Disease Active 05-23 00:00: 00 [facility] Drug abuse Drug abuse Disease Active 05-23 00:00: 00 [facility] Nonobstruc tive atheroscle rosis of coronary artery Nonobstruc tive atheroscle rosis of coronary artery Disease Active 05-23 00:00: 00 [facility] CAMDEN (acute kidney injury) CAMDEN (acute kidney injury) Disease Active 2020-09 00:00: 00 [facility] Esophageal spasm Esophageal spasm Disease Active 01-26 00:00: 00 [facility] A-fib A-fib Disease Active 01-20 00:00: 00 [facility] Atrial fibrillati on with RVR Atrial fibrillati on with RVR Disease Active 01-19 00:00: 00 [facility] Shortness of breath Shortness of breath Disease Active 01-19 00:00: 00 [facility] NSTEMI (non-ST elevated myocardial infarction ) NSTEMI (non-ST elevated myocardial infarction ) Disease Active 01-19 00:00: 00 [facility] Tobacco abuse Tobacco abuse Disease Active 01-19 00:00: 00 [facility] Family history of early CAD Family history of early CAD Disease Active 01-19 00:00: 00 [facility] Inguinal hernia Inguinal hernia Disease Active 2016-09 00:00: 00 [facility] Status epilepticu s Status epilepticu s Disease Active 01-22 00:00: 00 [facility] Seizure Seizure Disease Active 01-22 00:00: 00 [facility] [id number] COPD, mild Problem Com mon [facility] [id number] Leukocytos is, unspecifie d type Problem [facility] [id number] Developmen shruthi venous anomaly, cerebral Problem [facility] [id number] Diverticul osis large intestine w/o perforatio n or abscess w/bleeding Problem [facility] [id number] Atheroscle rosis of abdominal aorta Problem Common [facility] Cerebral infarction Cerebral infarction , unspecifie d mechanism Problem [facility] [id number] Chronic kidney disease, stage 3b Problem [facility] [id number] Osteoarthr itis of lumbar spine, unspecifie d spinal osteoarthr itis complicati on status Problem [facility] [id number] KATHERIN (obstructi ve sleep apnea) Problem [facility] [id number] Left lower lobe pulmonary nodule Problem [facility] [id number] Bipolar disorder, mixed Problem [facility] Cerebral infarction , unspecifie d Cerebral infarction , unspecifie d Problem Common [facility] Stroke Stroke Problem Common [facility] [id number] Incontinen ce of feces, unspecifie d fecal incontinen ce type Problem [facility] [id number] Primary insomnia Problem [facility] [id number] TIA (transient ischemic attack) Problem [facility] [id number] Aphasia Problem [facility] [id number] Body mass index [BMI] 31.0-31.9, adult Problem [facility] [id number] Other obesity due to excess calories Problem [facility] [id number] Mixed hyperlipid emia Problem [facility] [id number] Paroxysmal atrial fibrillati on Problem [facility] [id number] Vitamin D deficiency Problem [facility] [id number] Primary osteoarthr itis of left knee Problem [facility] [id number] Other chronic pain Problem [facility] [id number] Arthritis of knee, left Problem Common [facility] [id number] Essential hypertensi on Problem [facility] [id number] Tobacco use disorder, continuous Problem [facility] Allergic rhinitis Non-season al allergic rhinitis, unspecifie d chronicity , unspecifie d trigger Problem [facility] [id number] Primary osteoarthr itis of left shoulder Problem [facility] [id number] Incomplete tear of left rotator cuff, unspecifie d whether traumatic Problem Common [facility] [id number] Persistent migraine aura with cerebral infarction , intractabl e, with status migrainosu s Problem [facility] [id number] Narcolepsy due to underlying condition without cataplexy Problem [facility] Primary osteoarthr itis Primary osteoarthr itis involving multiple joints Problem [facility] Allergies, Adverse Reactions, Alerts Allergy Name Allergy Type Status Severity Reaction(s) Onset Date Inactive Date Treating Clinician Comments Source LORAZEPA M DRUG INGREDI Active Anaphylaxis 05-23 00:00: 00 [facility] Lorazepa m Propensi ty to adverse reaction s Active Anaphylaxis 05-23 00:00: 00 Pt has had multiple administr ations of ativan IV as well as EM without any negative reactions . [facility] BENADRYL ALLERGY DECONGES TANT DRUG Active High Swelling 2018-09 00:00: 00 [facility] Benadryl Allergy Deconges tant Propensi ty to adverse reaction s Active Swelling 2018-09 00:00: 00 [facility] DIAZEPAM DRUG INGREDI Active High Anaphylaxis 2016-09 00:00: 00 [facility] Diazepam Propensi ty to adverse reaction s to drug Active Anaphylaxis 2016-09 00:00: 00 Patient states it'll stop his heart within seconds of taking it. [facility] PENICILL INS Drug Class Active Anaphylaxis 05-13 00:00: 00 [facility] Penicill ins Propensi ty to adverse reaction s Active Anaphylaxis 05-13 00:00: 00 [facility] Penicill ins Propensi ty to adverse reaction s Active Anaphylaxis 05-13 00:00: 00 [facility] BEE STING / VENOM DRUG INGREDI Active Anaphylaxis 01-22 00:00: 00 [facility] Bee Sting / Venom Propensi ty to adverse reaction s to drug Active Anaphylaxis 01-22 00:00: 00 [facility] VENOM-WA SP DRUG INGREDI Active Anaphylaxis 01-22 00:00: 00 [facility] Venom-Wa sp Propensi ty to adverse reaction s Active Anaphylaxis 01-22 00:00: [address] [facility] penicill in G penicill in G Active swells throat shut [facility] diazepam diazepam Active Stops heart C ommon [facility] Social History Social Habit Start Date Stop Date Quantity Comments Source History of Tobacco Use Current Smoker [facility] Sex Assigned At [facility] Exposure to SARS-CoV-2 (event) 2023-01-18 00:00:00 2023-01-28 13:20:00 Not sure [facility] Alcohol intake 2022-10-21 00:00:00 2022-10-21 00:00:00 Current non-drinker of alcohol (finding) [facility] Cigarette pack-years 2021-09-27 00:00:00 2021-09-27 00:00:00 [facility] Tobacco use and exposure 2021-09-27 00:00:00 2021-09-27 00:00:00 Smokeless tobacco non-user [facility] Education 2021-09-27 00:00:00 2021-09-27 00:00:00 8 [facility] Cigarettes smoked current (pack per day) - Reported 2021-09-27 00:00:00 2021-09-27 00:00:00 [facility] Smoking Status Start Date Stop Date Source Current Smoker 2023-10-17 00:00:00 [facility] Medications Ordered Medication Name Filled Medication Name Start Date Stop Date Current Medication? Ordering Clinician Indication Dosage Frequency Signature (SIG) Comments Components Source Breo Ellipta 50-25 MCG/INH Breo Ellipta 50-25 MCG/INH 10-17 00:00: 00 No 1{puff} QD Breo Ellipta 50-25 MCG/INH Breo Ellipta 50-25 MCG/INH Breo Ellipta 50-25 MCG/INH 10-17 00:00: 00 No 1{puff} QD Breo Ellipta 50-25 MCG/INH Breo Ellipta 50-25 MCG/INH Breo Ellipta 50-25 MCG/INH 10-17 00:00: 00 No 1{puff} QD Breo Ellipta 50-25 MCG/INH Breo Ellipta 50-25 MCG/INH Breo Ellipta 50-25 MCG/INH 4-0 1-19 00:00: 00 No 1{puff} QD Breo Ellipta 50-25 MCG/INH Albuterol Sulfate HFA 108 (90 Base) MCG/ACT Albuterol Sulfate HFA 108 (90 Base) MCG/ACT 2022-09 2- 00:00: 00 No 1{puff_ as_need ed} 6xD Albuterol Sulfate HFA 108 (90 Base) MCG/ACT Montelukast Sodium 10 MG Montelukast Sodium 10 MG 2022-09 2- 00:00: 00 No 1{table t} QD Montelukas t Sodium 10 MG Kenalog (Triamcinol one) Kenalog (Triamcinol one) 2022-09 2- 00:00: 00 No 40mg [facility] Albuterol Sulfate HFA 108 (90 Base) MCG/ACT Albuterol Sulfate HFA 108 (90 Base) MCG/ACT 2022-09- 00:00: 00 No 1{puff_ as_need ed} 6xD Albuterol Sulfate HFA 108 (90 Base) MCG/ACT Montelukast Sodium 10 MG Montelukast Sodium 10 MG 2022-09 00:00: 00 No 1{table t} QD Montelukas t Sodium 10 MG Kenalog (Triamcinol one) Kenalog (Triamcinol one) 2022-09 00:00: 00 No 40mg [facility] Montelukast Sodium 10 MG Montelukast Sodium 10 MG 2022-09 2- 00:00: 00 No 1{table t} QD Montelukas t Sodium 10 MG Albuterol Sulfate HFA 108 (90 Base) MCG/ACT Albuterol Sulfate HFA 108 (90 Base) MCG/ACT 2022-09 2- 00:00: 00 No 1{puff_ as_need ed} 6xD Albuterol Sulfate HFA 108 (90 Base) MCG/ACT Kenalog (Triamcinol one) Kenalog (Triamcinol one) 2022-09 2- 00:00: 00 No 40mg [facility] Montelukast Sodium 10 MG Montelukast Sodium 10 MG 2022-09 2 00:00: 00 No 1{table t} QD Montelukas t Sodium 10 MG Albuterol Sulfate HFA 108 (90 Base) MCG/ACT Albuterol Sulfate HFA 108 (90 Base) MCG/ACT 2022-09 2 00:00: 00 No 1{puff_ as_need ed} 6xD Albuterol Sulfate HFA 108 (90 Base) MCG/ACT Kenalog (Triamcinol one) Kenalog (Triamcinol one) 2022-09 00:00: 00 No 40mg [facility] Montelukast Sodium 10 MG Montelukast Sodium 10 MG 2022-09 00:00: 00 No 1{table t} QD Montelukas t Sodium 10 MG Albuterol Sulfate HFA 108 (90 Base) MCG/ACT Albuterol Sulfate HFA 108 (90 Base) MCG/ACT 2022-09 00:00: 00 No 1{puff_ as_need ed} 6xD Albuterol Sulfate HFA 108 (90 Base) MCG/ACT Kenalog (Triamcinol one) Kenalog (Triamcinol one) 2022-09 00:00: 00 No 40mg [facility] Albuterol Sulfate HFA 108 (90 Base) MCG/ACT Albuterol Sulfate HFA 108 (90 Base) MCG/ACT 2022-09 00:00: 00 No 1{puff_ as_need ed} 6xD Albuterol Sulfate HFA 108 (90 Base) MCG/ACT Kenalog (Triamcinol one) Kenalog (Triamcinol one) 2022-09 2 00:00: 00 No 40mg [facility] Kenalog (Triamcinol one) Kenalog (Triamcinol one) 2022-09 2 00:00: 00 No 40mg [facility] Kenalog (Triamcinol one) Kenalog (Triamcinol one) 2022-09 2 00:00: 00 No 40mg [facility] Kenalog (Triamcinol one) Kenalog (Triamcinol one) 2022-09- 00:00: 00 No 40mg [facility] Kenalog (Triamcinol one) Kenalog (Triamcinol one) 2022-09 00:00: 00 No 40mg [facility] Cyanocobala min Cyanocobala min 2022-09 0-10 00:00: 00 No 1000mL [facility] Kenalog (Triamcinol one) Kenalog (Triamcinol one) 2022-09 0-10 00:00: 00 No 40mg [facility] Cyanocobala min Cyanocobala min 2022-09 0-10 00:00: 00 No 1000mL [facility] Kenalog (Triamcinol one) Kenalog (Triamcinol one) 2022-09 0-10 00:00: 00 No 40mg [facility] Cyanocobala min Cyanocobala min 2022-09 0-10 00:00: 00 No 1000mL [facility] Kenalog (Triamcinol one) Kenalog (Triamcinol one) 2022-09 0-10 00:00: 00 No 40mg [facility] Cyanocobala min Cyanocobala min 2022-09 0-10 00:00: 00 No 1000mL [facility] Kenalog (Triamcinol one) Kenalog (Triamcinol one) 2022-09 0-10 00:00: 00 No 40mg [facility] Cyanocobala min Cyanocobala min 2022-09 0-10 00:00: 00 No 1000mL [facility] Kenalog (Triamcinol one) Kenalog (Triamcinol one) 2022-09 0-10 00:00: 00 No 40mg [facility] Cyanocobala min Cyanocobala min 2022-09 0-10 00:00: 00 No 1000mL [facility] Kenalog (Triamcinol one) Kenalog (Triamcinol one) 2022-09 0-10 00:00: 00 No 40mg [facility] Cyanocobala min Cyanocobala min 2022-09 0-10 00:00: 00 No 1000mL [facility] Kenalog (Triamcinol one) Kenalog (Triamcinol one) 2022-09 0-10 00:00: 00 No 40mg [facility] Cyanocobala min Cyanocobala min 2022-09 0-10 00:00: 00 No 1000mL [facility] Kenalog (Triamcinol one) Kenalog (Triamcinol one) 2022-09 0-10 00:00: 00 No 40mg [facility] Cyanocobala min Cyanocobala min 2022-09 0-10 00:00: 00 No 1000mL [facility] Kenalog (Triamcinol one) Kenalog (Triamcinol one) 2022-09 0-10 00:00: 00 No 40mg [facility] Cyanocobala min Cyanocobala min 2022-09 0-10 00:00: 00 No 1000mL [facility] Kenalog (Triamcinol one) Kenalog (Triamcinol one) 2022-09 0-10 00:00: 00 No 40mg [facility] Kenalog (Triamcinol one) Kenalog (Triamcinol one) 8-17 00:00: 00 No 40mg [facility] Cyanocobala min Cyanocobala min 0 8-17 00:00: 00 No 1000mL [facility] Kenalog (Triamcinol one) Kenalog (Triamcinol one) 8-17 00:00: 00 No 40mg [facility] Cyanocobala min Cyanocobala min 0 8-17 00:00: 00 No 1000mL [facility] Kenalog (Triamcinol one) Kenalog (Triamcinol one) 0 8 00:00: 00 No 40mg [facility] Cyanocobala min Cyanocobala min 0 05-15 00:00: 00 No 1000mL [facility] Kenalog (Triamcinol one) Kenalog (Triamcinol one) 0 8- 00:00: 00 No 40mg [facility] Cyanocobala min Cyanocobala min 0 05-15 00:00: 00 No 1000mL [facility] Kenalog (Triamcinol one) Kenalog (Triamcinol one) 0 05-15 00:00: 00 No 40mg [facility] Cyanocobala min Cyanocobala min 0 05-15 00:00: 00 No 1000mL [facility] Kenalog (Triamcinol one) Kenalog (Triamcinol one) 0 05-15 00:00: 00 No 40mg [facility] Cyanocobala min Cyanocobala min 0 05-15 00:00: 00 No 1000mL [facility] Kenalog (Triamcinol one) Kenalog (Triamcinol one) 0 05-15 00:00: 00 No 40mg [facility] Cyanocobala min Cyanocobala min 0 05-15 00:00: 00 No 1000mL [facility] Kenalog (Triamcinol one) Kenalog (Triamcinol one) 0 8- 00:00: 00 No 40mg [facility] Cyanocobala min Cyanocobala min 0 8- 00:00: 00 No 1000mL [facility] Kenalog (Triamcinol one) Kenalog (Triamcinol one) 0 8- 00:00: 00 No 40mg [facility] Cyanocobala min Cyanocobala min 2022-0 8-17 00:00: 00 No 1000mL [facility] Kenalog (Triamcinol one) Kenalog (Triamcinol one) 0 8-17 00:00: 00 No 40mg [facility] Cyanocobala min Cyanocobala min 2022-0 8-17 00:00: 00 No 1000mL [facility] Kenalog (Triamcinol one) Kenalog (Triamcinol one) 2022-0 8-17 00:00: 00 No 40mg [facility] Cyanocobala min Cyanocobala min 0 8-17 00:00: 00 No 1000mL [facility] Kenalog (Triamcinol one) Kenalog (Triamcinol one) 2022-0 8-17 00:00: 00 No 40mg [facility] Cyanocobala min Cyanocobala min 0 8-17 00:00: 00 No 1000mL [facility] Kenalog (Triamcinol one) Kenalog (Triamcinol one) 0 8-17 00:00: 00 No 40mg [facility] Cyanocobala min Cyanocobala min 0 8-17 00:00: 00 No 1000mL [facility] Kenalog (Triamcinol one) Kenalog (Triamcinol one) 0 8-17 00:00: 00 No 40mg [facility] Cyanocobala min Cyanocobala min 2022-0 8-17 00:00: 00 No 1000mL [facility] Kenalog (Triamcinol one) Kenalog (Triamcinol one) 0 8-17 00:00: 00 No 40mg [facility] Cyanocobala min Cyanocobala min 2022-0 8-17 00:00: 00 No 1000mL [facility] Kenalog (Triamcinol one) Kenalog (Triamcinol one) 0 8- 00:00: 00 No 40mg [facility] Cyanocobala min Cyanocobala min 0 8-17 00:00: 00 No 1000mL [facility] Kenalog (Triamcinol one) Kenalog (Triamcinol one) 0 8- 00:00: 00 No 40mg [facility] Cyanocobala min Cyanocobala min 0 8- 00:00: 00 No 1000mL [facility] Kenalog (Triamcinol one) Kenalog (Triamcinol one) 0 8- 00:00: 00 No 40mg [facility] Cyanocobala min Cyanocobala min 0 8 00:00: 00 No 1000mL [facility] Kenalog (Triamcinol one) Kenalog (Triamcinol one) 0 8- 00:00: 00 No 40mg [facility] Cyanocobala min Cyanocobala min 0 8- 00:00: 00 No 1000mL [facility] Kenalog (Triamcinol one) Kenalog (Triamcinol one) 0 8- 00:00: 00 No 40mg [facility] Cyanocobala min Cyanocobala min 0 8-17 00:00: 00 No 1000mL [facility] Kenalog (Triamcinol one) Kenalog (Triamcinol one) 0 8- 00:00: 00 No 40mg [facility] Cyanocobala min Cyanocobala min 0 8-17 00:00: 00 No 1000mL [facility] Kenalog (Triamcinol one) Kenalog (Triamcinol one) 2022-0 8-17 00:00: 00 No 40mg [facility] Cyanocobala min Cyanocobala min 2023-0 8-17 00:00: 00 No 1000mL [facility] Kenalog (Triamcinol one) Kenalog (Triamcinol one) 0 8-17 00:00: 00 No 40mg [facility] Cyanocobala min Cyanocobala min 0 8-17 00:00: 00 No 1000mL [facility] Kenalog (Triamcinol one) Kenalog (Triamcinol one) 0 8-17 00:00: 00 No 40mg [facility] Cyanocobala min Cyanocobala min 0 8-17 00:00: 00 No 1000mL [facility] Kenalog (Triamcinol one) Kenalog (Triamcinol one) 0 8- 00:00: 00 No 40mg [facility] Cyanocobala min Cyanocobala min 0 8-17 00:00: 00 No 1000mL [facility] Kenalog (Triamcinol one) Kenalog (Triamcinol one) 0 -17 00:00: 00 No 40mg [facility] Cyanocobala min Cyanocobala min 0 -17 00:00: 00 No 1000mL [facility] Kenalog (Triamcinol one) Kenalog (Triamcinol one) 0 -17 00:00: 00 No 40mg [facility] Cyanocobala min Cyanocobala min 0 -17 00:00: 00 No 1000mL [facility] Kenalog (Triamcinol one) Kenalog (Triamcinol one) 0 -17 00:00: 00 No 40mg [facility] Cyanocobala min Cyanocobala min 0 5-17 00:00: 00 No 1000mL [facility] Kenalog (Triamcinol one) Kenalog (Triamcinol one) 0 5-17 00:00: 00 No 40mg [facility] Cyanocobala min Cyanocobala min 0 02-12 00:00: 00 No 1000mL [facility] Kenalog (Triamcinol one) Kenalog (Triamcinol one) 0 02-12 00:00: 00 No 40mg [facility] Cyanocobala min Cyanocobala min 0 02-12 00:00: 00 No 1000mL [facility] Kenalog (Triamcinol one) Kenalog (Triamcinol one) 0 02-12 00:00: 00 No 40mg [facility] Cyanocobala min Cyanocobala min 0 02-12 00:00: 00 No 1000mL [facility] Kenalog (Triamcinol one) Kenalog (Triamcinol one) 0 02-12 00:00: 00 No 40mg [facility] Cyanocobala min Cyanocobala min 0 02-12 00:00: 00 No 1000mL [facility] Kenalog (Triamcinol one) Kenalog (Triamcinol one) 0 02-12 00:00: 00 No 40mg [facility] Cyanocobala min Cyanocobala min 0 02-12 00:00: 00 No 1000mL [facility] Kenalog (Triamcinol one) Kenalog (Triamcinol one) 0 02-12 00:00: 00 No 40mg [facility] Cyanocobala min Cyanocobala min 0 02-12 00:00: 00 No 1000mL [facility] Kenalog (Triamcinol one) Kenalog (Triamcinol one) 0 02-12 00:00: 00 No 40mg [facility] Cyanocobala min Cyanocobala min 0 - 00:00: 00 No 1000mL [facility] Kenalog (Triamcinol one) Kenalog (Triamcinol one) 0 02-12 00:00: 00 No 40mg [facility] Cyanocobala min Cyanocobala min 0 02-12 00:00: 00 No 1000mL [facility] Kenalog (Triamcinol one) Kenalog (Triamcinol one) 0 02-12 00:00: 00 No 40mg [facility] Cyanocobala min Cyanocobala min 0 02-12 00:00: 00 No 1000mL [facility] Kenalog (Triamcinol one) Kenalog (Triamcinol one) 0 02-12 00:00: 00 No 40mg [facility] Cyanocobala min Cyanocobala min 0 02-12 00:00: 00 No 1000mL [facility] Kenalog (Triamcinol one) Kenalog (Triamcinol one) 0 02-12 00:00: 00 No 40mg [facility] Cyanocobala min Cyanocobala min 0 02-12 00:00: 00 No 1000mL [facility] Kenalog (Triamcinol one) Kenalog (Triamcinol one) 0 02-12 00:00: 00 No 40mg [facility] Cyanocobala min Cyanocobala min 0 02-12 00:00: 00 No 1000mL [facility] Kenalog (Triamcinol one) Kenalog (Triamcinol one) 0 02-12 00:00: 00 No 40mg [facility] Cyanocobala min Cyanocobala min 0 02-12 00:00: 00 No 1000mL [facility] Kenalog (Triamcinol one) Kenalog (Triamcinol one) 0 02-12 00:00: 00 No 40mg [facility] Cyanocobala min Cyanocobala min 2022-0 -17 00:00: 00 No 1000mL [facility] Kenalog (Triamcinol one) Kenalog (Triamcinol one) 0 - 00:00: 00 No 40mg [facility] Cyanocobala min Cyanocobala min 0 -17 00:00: 00 No 1000mL [facility] Kenalog (Triamcinol one) Kenalog (Triamcinol one) 0 - 00:00: 00 No 40mg [facility] Cyanocobala min Cyanocobala min 0 02-12 00:00: 00 No 1000mL [facility] Kenalog (Triamcinol one) Kenalog (Triamcinol one) 0 - 00:00: 00 No 40mg [facility] Cyanocobala min Cyanocobala min 0 02-12 00:00: 00 No 1000mL [facility] Kenalog (Triamcinol one) Kenalog (Triamcinol one) 0 02-12 00:00: 00 No 40mg [facility] Cyanocobala min Cyanocobala min 0 - 00:00: 00 No 1000mL [facility] Kenalog (Triamcinol one) Kenalog (Triamcinol one) 0 - 00:00: 00 No 40mg [facility] Cyanocobala min Cyanocobala min 0 -17 00:00: 00 No 1000mL [facility] Kenalog (Triamcinol one) Kenalog (Triamcinol one) 0 -17 00:00: 00 No 40mg [facility] Cyanocobala min Cyanocobala min 0 -17 00:00: 00 No 1000mL [facility] Kenalog (Triamcinol one) Kenalog (Triamcinol one) 02-12 00:00: 00 No 40mg [facility] Cyanocobala min Cyanocobala min 02-12 00:00: 00 No 1000mL [facility] Kenalog (Triamcinol one) Kenalog (Triamcinol one) 02-12 00:00: 00 No 40mg [facility] Cyanocobala min Cyanocobala min 02-12 00:00: 00 No 1000mL [facility] hydrOXYzine (ATARAX) tablet 25 mg 01-28 18:45: 00 01-28 18:51 :00 No 25mg 25 mg, Oral, ONCE, 1 dose, On Fri01/28/23 at 1345, [facility] traMADol HCl 50 MG traMADol HCl 50 MG 01-27 00:00: 00 No 1{table t_as_ne eded} traMADol HCl 50 MG [facility] [place] [facility] [place] -15 00:00: 00 No 5mL [facility] Kenalog (Triamcinol one) Kenalog (Triamcinol one) -15 00:00: 00 No 1mL [facility]iv[facility] [place] [facility] [place] -15 00:00: 00 No 5mL [facility] Kenalog (Triamcinol one) Kenalog (Triamcinol one) 0 -15 00:00: 00 No 1mL [facility] B[facility]iv[facility] [place] [facility] [place] 0 -15 00:00: 00 No 5mL [facility] Kenalog (Triamcinol one) Kenalog (Triamcinol one) 3-15 00:00: 00 No 1mL [facility] [place] [facility] [place] 3-15 00:00: 00 No 5mL [facility] Kenalog (Triamcinol one) Kenalog (Triamcinol one) 0 3-15 00:00: 00 No 1mL [facility]iv[facility] [place] [facility] [place] 0 15 00:00: 00 No 5mL [facility] Kenalog (Triamcinol one) Kenalog (Triamcinol one) 0 3-15 00:00: 00 No 1mL [facility]upivic[facility] [place] [facility] [place] 0 15 00:00: 00 No 5mL [facility] Kenalog (Triamcinol one) Kenalog (Triamcinol one) 0 -15 00:00: 00 No 1mL [facility]iv[facility] [place] [facility] [place] 0 15 00:00: 00 No 5mL [facility] Kenalog (Triamcinol one) Kenalog (Triamcinol one) 0 15 00:00: 00 No 1mL [facility]iv[facility] [place] [facility] [place] 0 15 00:00: 00 No 5mL [facility] Kenalog (Triamcinol one) Kenalog (Triamcinol one) 0 -15 00:00: 00 No 1mL [facility]iv[facility] [place] [facility] [place] 0 15 00:00: 00 No 5mL [facility] Kenalog (Triamcinol one) Kenalog (Triamcinol one) 0 3-15 00:00: 00 No 1mL [facility] [place] [facility] [place] 2022-0 3-15 00:00: 00 No 5mL [facility] Kenalog (Triamcinol one) Kenalog (Triamcinol one) 0 3-15 00:00: 00 No 1mL [facility]iv[facility] [place] [facility] [place] 0 3-15 00:00: 00 No 5mL [facility] Kenalog (Triamcinol one) Kenalog (Triamcinol one) 0 3-15 00:00: 00 No 1mL [facility] Bupivic[facility] [place] [facility] [place] 0 3-15 00:00: 00 No 5mL [facility] Kenalog (Triamcinol one) Kenalog (Triamcinol one) 0 3-15 00:00: 00 No 1mL [facility] Bupivic[facility] [place] [facility] [place] 0 3-15 00:00: 00 No 5mL [facility] Kenalog (Triamcinol one) Kenalog (Triamcinol one) 0 3-15 00:00: 00 No 1mL [facility] Bupivic[facility] [place] [facility] [place] 0 3-15 00:00: 00 No 5mL [facility] Kenalog (Triamcinol one) Kenalog (Triamcinol one) 0 3-15 00:00: 00 No 1mL [facility] Bupiv[facility] [place] [facility] [place] 0 3-15 00:00: 00 No 5mL [facility] Kenalog (Triamcinol one) Kenalog (Triamcinol one) 0 3-15 00:00: 00 No 1mL [facility] B[facility]iv[facility] [place] [facility] [place] 2022-0 3-15 00:00: 00 No 5mL [facility] Kenalog (Triamcinol one) Kenalog (Triamcinol one) 0 3-15 00:00: 00 No 1mL [facility]iv[facility] [place] [facility] [place] 2022-0 3-15 00:00: 00 No 5mL [facility] Kenalog (Triamcinol one) Kenalog (Triamcinol one) 0 3-15 00:00: 00 No 1mL [facility] Bupiv[facility] [place] [facility] [place] 0 3-15 00:00: 00 No 5mL [facility] Kenalog (Triamcinol one) Kenalog (Triamcinol one) 0 3-15 00:00: 00 No 1mL [facility] [place] [facility] [place] 0 3-15 00:00: 00 No 5mL [facility] Kenalog (Triamcinol one) Kenalog (Triamcinol one) 0 3-15 00:00: 00 No 1mL [facility]iv[facility] [place] [facility] [place] 0 3-15 00:00: 00 No 5mL [facility] Kenalog (Triamcinol one) Kenalog (Triamcinol one) 0 3-15 00:00: 00 No 1mL [facility]iv[facility] [place] [facility] [place] 0 -15 00:00: 00 No 5mL [facility] Kenalog (Triamcinol one) Kenalog (Triamcinol one) 0 3-15 00:00: 00 No 1mL [facility] B[facility]iv[facility] [place] [facility] [place] 0 3-15 00:00: 00 No 5mL [facility] Kenalog (Triamcinol one) Kenalog (Triamcinol one) 0 3-15 00:00: 00 No 1mL [facility] B[facility]iv[facility] [place] [facility] [place] 0 3-15 00:00: 00 No 5mL [facility] Kenalog (Triamcinol one) Kenalog (Triamcinol one) 0 3-15 00:00: 00 No 1mL [facility]iv[facility] [place] [facility] [place] 0 3-15 00:00: 00 No 5mL [facility] Kenalog (Triamcinol one) Kenalog (Triamcinol one) 0 3-15 00:00: 00 No 1mL [facility] B[facility]iv[facility] [place] [facility] [place] 0 3-15 00:00: 00 No 5mL [facility] Kenalog (Triamcinol one) Kenalog (Triamcinol one) 0 3-15 00:00: 00 No 1mL [facility]iv[facility] [place] [facility] [place] 0 3-15 00:00: 00 No 5mL [facility] Kenalog (Triamcinol one) Kenalog (Triamcinol one) 0 3-15 00:00: 00 No 1mL [facility] Kenalog (Triamcinol one) Kenalog (Triamcinol one) 0 2-16 00:00: 00 No 40mg [facility] Bupiv[facility] [place] [facility] [place] 0 2-16 00:00: 00 No 2.5mg [facility] Kenalog (Triamcinol one) Kenalog (Triamcinol one) 0 2-16 00:00: 00 No 1mL [facility] Kenalog (Triamcinol one) Kenalog (Triamcinol one) 0 2-16 00:00: 00 No 40mg [facility] Bupiv[facility] [place] [facility] [place] 0 2-16 00:00: 00 No 2.5mg [facility] Kenalog (Triamcinol one) Kenalog (Triamcinol one) 0 2-16 00:00: 00 No 1mL [facility] Kenalog (Triamcinol one) Kenalog (Triamcinol one) 0 2-16 00:00: 00 No 40mg [facility] [place] [facility] [place] 0 2-16 00:00: 00 No 2.5mg [facility] Kenalog (Triamcinol one) Kenalog (Triamcinol one) 0 2-16 00:00: 00 No 1mL [facility] Kenalog (Triamcinol one) Kenalog (Triamcinol one) 0 2-16 00:00: 00 No 40mg [facility] [place] [facility] [place] 0 2-16 00:00: 00 No 2.5mg [facility] Kenalog (Triamcinol one) Kenalog (Triamcinol one) 0 2-16 00:00: 00 No 1mL [facility] Kenalog (Triamcinol one) Kenalog (Triamcinol one) 0 2-16 00:00: 00 No 40mg [facility]iv[facility] [place] [facility] [place] 0 2-16 00:00: 00 No 2.5mg [facility] Kenalog (Triamcinol one) Kenalog (Triamcinol one) 0 2-16 00:00: 00 No 1mL [facility] Kenalog (Triamcinol one) Kenalog (Triamcinol one) 0 2-16 00:00: 00 No 40mg [facility] [place] [facility] [place] 0 2-16 00:00: 00 No 2.5mg [facility] Kenalog (Triamcinol one) Kenalog (Triamcinol one) 0 2-16 00:00: 00 No 1mL [facility] Kenalog (Triamcinol one) Kenalog (Triamcinol one) 0 2-16 00:00: 00 No 40mg [facility] B[facility]iv[facility] [place] [facility] [place] 0 16 00:00: 00 No 2.5mg [facility] Kenalog (Triamcinol one) Kenalog (Triamcinol one) 0 -16 00:00: 00 No 1mL [facility] Kenalog (Triamcinol one) Kenalog (Triamcinol one) 0 2-16 00:00: 00 No 40mg [facility]iv[facility] [place] [facility] [place] 0 16 00:00: 00 No 2.5mg [facility] Kenalog (Triamcinol one) Kenalog (Triamcinol one) 0 16 00:00: 00 No 1mL [facility] Kenalog (Triamcinol one) Kenalog (Triamcinol one) 0 -16 00:00: 00 No 40mg [facility] [place] [facility] [place] 0 16 00:00: 00 No 2.5mg [facility] Kenalog (Triamcinol one) Kenalog (Triamcinol one) 0 16 00:00: 00 No 1mL [facility] Kenalog (Triamcinol one) Kenalog (Triamcinol one) 0 2-16 00:00: 00 No 40mg [facility] [place] [facility] [place] 0 16 00:00: 00 No 2.5mg [facility] Kenalog (Triamcinol one) Kenalog (Triamcinol one) 0 2-16 00:00: 00 No 1mL [facility] Kenalog (Triamcinol one) Kenalog (Triamcinol one) 0 2-16 00:00: 00 No 40mg [facility] [place] [facility] [place] 0 2-16 00:00: 00 No 2.5mg [facility] Kenalog (Triamcinol one) Kenalog (Triamcinol one) 0 2-16 00:00: 00 No 1mL [facility] Kenalog (Triamcinol one) Kenalog (Triamcinol one) 0 2-16 00:00: 00 No 40mg [facility] Bupiv[facility] [place] [facility] [place] 0 2-16 00:00: 00 No 2.5mg [facility] Kenalog (Triamcinol one) Kenalog (Triamcinol one) 0 2-16 00:00: 00 No 1mL [facility] Kenalog (Triamcinol one) Kenalog (Triamcinol one) 0 2-16 00:00: 00 No 40mg [facility] [place] [facility] [place] 0 2-16 00:00: 00 No 2.5mg [facility] Kenalog (Triamcinol one) Kenalog (Triamcinol one) 0 2-16 00:00: 00 No 1mL [facility] Kenalog (Triamcinol one) Kenalog (Triamcinol one) 0 2-16 00:00: 00 No 40mg [facility] Bupiv[facility] [place] [facility] [place] 0 2-16 00:00: 00 No 2.5mg [facility] Kenalog (Triamcinol one) Kenalog (Triamcinol one) 0 2-16 00:00: 00 No 1mL [facility] Kenalog (Triamcinol one) Kenalog (Triamcinol one) 0 2-16 00:00: 00 No 40mg [facility] B[facility]iv[facility] [place] [facility] [place] 0 2-16 00:00: 00 No 2.5mg [facility] Kenalog (Triamcinol one) Kenalog (Triamcinol one) 0 2-16 00:00: 00 No 1mL [facility] Kenalog (Triamcinol one) Kenalog (Triamcinol one) 0 -16 00:00: 00 No 40mg [facility] Bupiv[facility] [place] B[facility] [place] 0 2-16 00:00: 00 No 2.5mg [facility] Kenalog (Triamcinol one) Kenalog (Triamcinol one) 0 2-16 00:00: 00 No 1mL [facility] Kenalog (Triamcinol one) Kenalog (Triamcinol one) 0 -16 00:00: 00 No 40mg [facility] Bupiv[facility] [place] [facility] [place] 0 2-16 00:00: 00 No 2.5mg [facility] Kenalog (Triamcinol one) Kenalog (Triamcinol one) 0 2-16 00:00: 00 No 1mL [facility] Kenalog (Triamcinol one) Kenalog (Triamcinol one) 0 -16 00:00: 00 No 40mg [facility] Bupiv[facility] [place] B[facility] [place] 0 16 00:00: 00 No 2.5mg [facility] Kenalog (Triamcinol one) Kenalog (Triamcinol one) 0 2-16 00:00: 00 No 1mL [facility] Kenalog (Triamcinol one) Kenalog (Triamcinol one) 0 2-16 00:00: 00 No 40mg [facility] Bupiv[facility] [place] Bup[facility] [place] 0 -16 00:00: 00 No 2.5mg [facility] Kenalog (Triamcinol one) Kenalog (Triamcinol one) 0 2-16 00:00: 00 No 1mL [facility] Kenalog (Triamcinol one) Kenalog (Triamcinol one) 0 2-16 00:00: 00 No 40mg [facility] Bupiv[facility] [place] [facility] [place] 216 00:00: 00 No 2.5mg [facility] Kenalog (Triamcinol one) Kenalog (Triamcinol one) 0 2-16 00:00: 00 No 1mL [facility] Kenalog (Triamcinol one) Kenalog (Triamcinol one) 0 2-16 00:00: 00 No 40mg [facility]up[facility] [place] [facility] [place] 16 00:00: 00 No 2.5mg [facility] Kenalog (Triamcinol one) Kenalog (Triamcinol one) 2-16 00:00: 00 No 1mL [facility] Kenalog (Triamcinol one) Kenalog (Triamcinol one) 0 2-16 00:00: 00 No 40mg [facility] B[facility] [place] [facility] [place] 2-16 00:00: 00 No 2.5mg [facility] Kenalog (Triamcinol one) Kenalog (Triamcinol one) 0 2-16 00:00: 00 No 1mL [facility] traMADol HCl 50 MG traMADol HCl 50 MG 0 2-16 00:00: 00 No 1{table t_as_ne eded} traMADol HCl 50 MG Kenalog (Triamcinol one) Kenalog (Triamcinol one) 0 2-16 00:00: 00 No 1mL [facility] Kenalog (Triamcinol one) Kenalog (Triamcinol one) 0 2-16 00:00: 00 No [facility]iv[facility] [place] [facility] [place] 16 00:00: 00 No 2.5mg [facility] Kenalog (Triamcinol one) Kenalog (Triamcinol one) 16 00:00: 00 No 40mg [facility] Bup[facility] [place] [facility] [place] 16 00:00: 00 No 2.5mg [facility] Kenalog (Triamcinol one) Kenalog (Triamcinol one) 0 -16 00:00: 00 No 1mL [facility] Kenalog (Triamcinol one) Kenalog (Triamcinol one) 11-14 00:00: 00 No 40mg [facility] [place] [facility] [place] 11-14 00:00: 00 No 2.5mg [facility] Kenalog (Triamcinol one) Kenalog (Triamcinol one) 16 00:00: 00 No 1mL [facility] Kenalog (Triamcinol one) Kenalog (Triamcinol one) 16 00:00: 00 No 40mg [facility] [place] [facility] [place] 11-14 00:00: 00 No 2.5mg [facility] Kenalog (Triamcinol one) Kenalog (Triamcinol one) 16 00:00: 00 No 1mL [facility] dextrose 50 % in water (D50W) injection 50 mL 2021-09 19:30: 00 08-30 18:42 :00 No 50mL 50 mL, Slow IV Push, ONCE, 1 dose, On Fri08/30/22 at 1330, Routine [facility] NaCl 0.9% (NS) bolus infusion 1,000 mL 2021-09 17:45: 00 08-30 19:38 :00 No 1000mL at 999 mL/hr, 1,000 mL, IV Infusion, ONCE, 1 dose, On Fri08/30/22 at 1145, [facility] NaCl 0.9% (NS) bolus infusion 1,000 mL 2021-09 16:00: 00 08-30 16:53 :00 No 1000mL at 999 mL/hr, 1,000 mL, IV Infusion, ONCE, 1 dose, On Fri08/30/22 at 1000, [facility] NaCl 0.9% (NS) bolus infusion 1,000 mL 2021-09 14:45: 00 08-30 15:24 :00 No 1000mL at 999 mL/hr, 1,000 mL, IV Infusion, ONCE, 1 dose, On Fri08/30/22 at 0845, [facility] carvediloL 3.125 mg tablet 05-25 00:00: 00 06-25 04:59 :00 No [id number] 3.125mg Take 1 tablet by mouth in the morning and 1 tablet in the evening. Take with meals. Do all this for 30 days. [facility] carvediloL 3.125 mg tablet 05-25 00:00: 00 06-25 04:59 :00 No [id number] 3.125mg Take 1 tablet by mouth in the morning and 1 tablet in the evening. Take with meals. Do all this for 30 days. [facility] nicotine 21 mg/24 hr patch 05-24 17:45: 28 Yes 1{patch } Apply 1 Patch to area(s) every 24 (twenty-fo ur) hours. Patient reports he smokes 13 cigarettes per day. [facility] nicotine 21 mg/24 hr patch 05-24 17:45: 28 Yes 1{patch } Apply 1 Patch to area(s) every 24 (twenty-fo ur) hours. Patient reports he smokes 13 cigarettes per day. [facility] nicotine 21 mg/24 hr patch 05-24 17:45: 28 Yes 1{patch } Apply 1 Patch to area(s) every 24 (twenty-fo ur) hours. Patient reports he smokes 13 cigarettes per day. [facility] nicotine 21 mg/24 hr patch 05-24 17:45: 28 Yes 1{patch } Apply 1 Patch to area(s) every 24 (twenty-fo ur) hours. Patient reports he smokes 13 cigarettes per day. [facility] nicotine 21 mg/24 hr patch 05-24 17:45: 28 Yes 1{patch } Apply 1 Patch to area(s) every 24 (twenty-fo ur) hours. Patient reports he smokes 13 cigarettes per day. [facility] hydrOXYzine (ATARAX) tablet 10 mg 05-24 15:14: 53 Yes 10mg 10 mg, Oral, Q6HPRN, Starting on Fri05/24/22 at 1014, Until Discontinu ed, Routine, Anxiety, Itching [facility] polyethylen e glycol 3350 powder 17 g 05-24 14:00: 00 Yes 17g 17 g, Oral, DAILY, First dose on Fri05/24/22 at 0900, Until Discontinu ed, Routine [facility] pantoprazol e (PROTONIX) EC tablet 40 mg 05-24 14:00: 00 Yes 40mg 40 mg, Oral, DAILY, First dose on Fri05/24/22 at 0900, Until Discontinu ed, Routine [facility] lisinopriL (PRINIVIL,Z ESTRIL) tablet 2.5 mg 05-24 14:00: 00 Yes 2.5mg 2.5 mg, Oral, DAILY, First dose on Fri05/24/22 at 0900, Until Discontinu ed, Routine [facility] isosorbide mononitrate (IMDUR) 24 hr tablet 30 mg 05-24 14:00: 00 Yes 30mg 30 mg, Oral, DAILY, First dose on Fri05/24/22 at 0900, Until Discontinu ed, Routine [facility] atorvastati n (LIPITOR) tablet 80 mg 05-24 14:00: 00 Yes 80mg 80 mg, Oral, DAILY, First dose on Fri05/24/22 at 0900, Until Discontinu ed, Routine [facility] aspirin chewable tablet 81 mg 05-24 14:00: 00 Yes 81mg 81 mg, Oral, DAILY, First dose on Fri05/24/22 at 0900, Until Discontinu ed, Routine [facility] carvediloL (COREG) tablet 3.125 mg 05-24 13:00: 00 Yes 3.125mg 3.125 mg, Oral, BID MEALS, First dose on Fri05/24/22 at 0800, Until Discontinu ed, Routine [facility] NaCl 0.9% (NS) IV infusion 1,000 mL 05-24 01:30: 00 Yes 1000mL at 75 mL/hr, IV Infusion, CONTINUOUS , Starting on Fri05/23/22 at 2030, Until Discontinu ed, Routine [facility] sennosides- docusate sodium (SENOKOT-S) 8.6-50 mg per tablet 1 tablet 05-24 01:00: 00 Yes 1{tbl} 1 tablet, Oral, BID, First dose on Fri05/23/22 at 2000, Until Discontinu ed, Routine [facility] [facility] enoxaparin (LOVENOX) injection 90 mg 05-24 01:00: 00 Yes 1mg/kg 90 mg (rounded from 93 mg = 1 mg/kg ?93 kg), Subcutaneo us, Q12H, First dose (after last modificati on) on Fri05/23/22 at 2000, Until Discontinu ed, Routine [facility] nicotine (NICODERM) 21 mg/24 hr patch 1 Patch 05-24 00:45: 00 Yes 1{patch } 1 Patch, Topical, Administer over 24 Hours, Q24H, First dose on Fri05/23/22 at 1945, Until Discontinu ed, Routine [facility] hydrOXYzine 10 mg tablet 05-24 00:00: 00 06-24 04:59 :00 No [id number] 10mg Take 1 tablet by mouth every 6 (six) hours as needed for Anxiety for up to 30 [address] [facility] [address] hydrOXYzine 10 mg tablet 05-24 00:00: 00 06-24 04:59 :00 No [id number] 10mg Take 1 tablet by mouth every 6 (six) hours as needed for Anxiety for up to 30 days. [facility] enoxaparin (LOVENOX) injection 40 mg 05-23 22:00: 00 05-23 23:48 :16 No 40mg 40 mg, Subcutaneo us, DAILY, First dose on Fri05/23/22 at 1700, Until Discontinu ed, Routine [facility] ondansetron (ZOFRAN (PF)) injection 4 mg 05-23 19:56: 03 Yes 4mg 4 mg, Slow IV Push, Q6HPRN, Starting on Fri05/23/22 at 1456, Until Discontinu ed, Routine, Nausea and Vomiting (N/V) [facility] HYDROcodone -acetaminop hen (NORCO 5) 5-325 mg tablet 1 tablet 05-23 19:55: 52 05-25 19:54 :52 No 1{tbl} 1 tablet, Oral, Q6HPRN, Starting on Nohemy 05/23/22 at 1455, Until 05/25/22 at 1454, Routine, Pain (scale 4-6) [facility] acetaminoph en (TYLENOL) tablet 650 mg 05-23 19:55: 49 Yes 650mg 650 mg, Oral, Q6HPRN, Starting on Fri05/23/22 at 1455, Until Discontinu ed, Routine, Pain (scale 1-3) [facility] NaCl 0.9% (NS) bolus infusion 1,000 mL 05-23 18:45: 00 05-23 22:25 :22 No 1000mL at 999 mL/hr, 1,000 mL, IV Infusion, ONCE, 1 dose, On Nohemy 05/23/22 at 1345, [facility] NaCl 0.9% (NS) bolus infusion 1,000 mL 05-23 15:15: 05-23 18:21 :00 No 1000mL at 999 mL/hr, 1,000 mL, IV Infusion, ONCE, 1 dose, On Nohemy 05/23/22 at 1015, [facility] LORazepam (ATIVAN) injection 1 mg 05-23 13:30: 00 05-23 13:45 :00 No 1mg 1 mg, Slow IV Push, ONCE, 1 dose, On Nohemy 05/23/22 at 0830, STAT
Is the medication being used for status epilepticu s? No [facility] Eszopiclone 1 MG Eszopiclone 1 MG 01-22 [...] Tartrate 5 MG Zolpidem Tartrate 5 MG 01-17 00:00: 00 No QD Zolpidem Tartrate 5 MG HYDROcodone -acetaminop hen (NORCO) 10-325 mg tablet 09-30 00:00: 00 10-08 05:59 :00 No [id number] 1{tbl} Take 1 tablet by mouth every 8 (eight) hours as needed for Pain (scale 7-10) for up to 7 days. Indication s: acute pain [facility] Kenalog (Triamcinol one) Kenalog (Triamcinol one) 2020-09 0- 00:00: 00 No 40mg [facility] Kenalog (Triamcinol one) Kenalog (Triamcinol one) 2020-09 0-13 00:00: 00 No 40mg [facility] Kenalog (Triamcinol one) Kenalog (Triamcinol one) 2020-09 0- 00:00: 00 No 40mg [facility] Kenalog (Triamcinol one) Kenalog (Triamcinol one) 2020-09 0- 00:00: 00 No 40mg [facility] Kenalog (Triamcinol one) Kenalog (Triamcinol one) 2020-09 0- 00:00: 00 No 40mg [facility] Kenalog (Triamcinol one) Kenalog (Triamcinol one) 2020-09 0 00:00: 00 No 40mg [facility] Kenalog (Triamcinol one) Kenalog (Triamcinol one) 2020-09 0 00:00: 00 No 40mg [facility] Kenalog (Triamcinol one) Kenalog (Triamcinol one) 2020-09 0 00:00: 00 No 40mg [facility] Kenalog (Triamcinol one) Kenalog (Triamcinol one) 2020-09 0 00:00: 00 No 40mg [facility] Kenalog (Triamcinol one) Kenalog (Triamcinol one) 2020-09 0 00:00: 00 No 40mg [facility] Kenalog (Triamcinol one) Kenalog (Triamcinol one) 2020-09 0- 00:00: 00 No 40mg [facility] Kenalog (Triamcinol one) Kenalog (Triamcinol one) 2020-09 0- 00:00: 00 No 40mg [facility] Kenalog (Triamcinol one) Kenalog (Triamcinol one) 2020-09 0- 00:00: 00 No 40mg [facility] Kenalog (Triamcinol one) Kenalog (Triamcinol one) 2020-09 0-13 00:00: 00 No 40mg [facility] Kenalog (Triamcinol one) Kenalog (Triamcinol one) 2020-09 0-13 00:00: 00 No 40mg [facility] Kenalog (Triamcinol one) Kenalog (Triamcinol one) 2020-09 0-13 00:00: 00 No 40mg [facility] Kenalog (Triamcinol one) Kenalog (Triamcinol one) 2020-09 0-13 00:00: 00 No 40mg [facility] Kenalog (Triamcinol one) Kenalog (Triamcinol one) 2020-09 0- 00:00: 00 No 40mg [facility] Kenalog (Triamcinol one) Kenalog (Triamcinol one) 2020-09 0- 00:00: 00 No 40mg [facility] Kenalog (Triamcinol one) Kenalog (Triamcinol one) 2020-09 0- 00:00: 00 No 40mg [facility] Kenalog (Triamcinol one) Kenalog (Triamcinol one) 2020-09 0- 00:00: 00 No 40mg [facility] Kenalog (Triamcinol one) Kenalog (Triamcinol one) 2020-09 0-13 00:00: 00 No 40mg [facility] Kenalog (Triamcinol one) Kenalog (Triamcinol one) 2020-09 0-13 00:00: 00 No 40mg [facility] Kenalog (Triamcinol one) Kenalog (Triamcinol one) 2020-09 0-13 00:00: 00 No 40mg [facility] Kenalog (Triamcinol one) Kenalog (Triamcinol one) 2020-09 0-13 00:00: 00 No 40mg [facility] Kenalog (Triamcinol one) Kenalog (Triamcinol one) 2020-09 0-13 00:00: 00 No 40mg [facility] Kenalog (Triamcinol one) Kenalog (Triamcinol one) 2020-09 0- 00:00: 00 No 40mg [facility] Kenalog (Triamcinol one) Kenalog (Triamcinol one) 2020-09 0-13 00:00: 00 No 40mg [facility] Kenalog (Triamcinol one) Kenalog (Triamcinol one) 2020-09 0- 00:00: 00 No 40mg [facility] Kenalog (Triamcinol one) Kenalog (Triamcinol one) 2020-09 0 00:00: 00 No 40mg [facility] Kenalog (Triamcinol one) Kenalog (Triamcinol one) 2020-09 0 00:00: 00 No 40mg [facility] Kenalog (Triamcinol one) Kenalog (Triamcinol one) 2020-09 0 00:00: 00 No 40mg [facility] Kenalog (Triamcinol one) Kenalog (Triamcinol one) 2020-09 0 00:00: 00 No 40mg [facility] Kenalog (Triamcinol one) Kenalog (Triamcinol one) 2020-09 0 00:00: 00 No 40mg [facility] Kenalog (Triamcinol one) Kenalog (Triamcinol one) 2020-09 0- 00:00: 00 No 40mg [facility] Kenalog (Triamcinol one) Kenalog (Triamcinol one) 2020-09 0- 00:00: 00 No 40mg [facility] Kenalog (Triamcinol one) Kenalog (Triamcinol one) 2020-09 0-13 00:00: 00 No 40mg [facility] Kenalog (Triamcinol one) Kenalog (Triamcinol one) 2020-09 0-13 00:00: 00 No 40mg [facility] Kenalog (Triamcinol one) Kenalog (Triamcinol one) 2020-09 0-13 00:00: 00 No 40mg [facility] Kenalog (Triamcinol one) Kenalog (Triamcinol one) 2020-09 0-13 00:00: 00 No 40mg [facility] Benzonatate 200 MG Benzonatate 200 MG 2020-09 0-13 00:00: 00 07-21 00:00 :00 No 1{capsu le} TID Benzonatat e 200 MG Kenalog (Triamcinol one) Kenalog (Triamcinol one) 0 06-26 00:00: 00 No 40mg [facility] [place] [facility] [place] 0 06-26 00:00: 00 No 2.5mg [facility] Kenalog (Triamcinol one) Kenalog (Triamcinol one) 0 06-26 00:00: 00 No 40mg [facility] [place] [facility] [place] 0 06-26 00:00: 00 No 2.5mg [facility] Kenalog (Triamcinol one) Kenalog (Triamcinol one) 0 06-26 00:00: 00 No 40mg [facility] [place] [facility] [place] 0 06-26 00:00: 00 No 2.5mg [facility] Kenalog (Triamcinol one) Kenalog (Triamcinol one) 0 06-26 00:00: 00 No 40mg [facility] [place] [facility] [place] 0 06-26 00:00: 00 No 2.5mg [facility] Kenalog (Triamcinol one) Kenalog (Triamcinol one) 0 06-26 00:00: 00 No 40mg [facility] [place] [facility] [place] 06-26 00:00: 00 No 2.5mg [facility] Kenalog (Triamcinol one) Kenalog (Triamcinol one) 06-26 00:00: 00 No 40mg [facility] [place] [facility] [place] 0 06-26 00:00: 00 No 2.5mg [facility] Kenalog (Triamcinol one) Kenalog (Triamcinol one) 06-26 00:00: 00 No 40mg [facility] [place] [facility] [place] 06-26 00:00: 00 No 2.5mg [facility] Kenalog (Triamcinol one) Kenalog (Triamcinol one) 06-26 00:00: 00 No 40mg [facility] [place] [facility] [place] 06-26 00:00: 00 No 2.5mg [facility] Kenalog (Triamcinol one) Kenalog (Triamcinol one) 06-26 00:00: 00 No 40mg [facility] [place] [facility] [place] 06-26 00:00: 00 No 2.5mg [facility] Kenalog (Triamcinol one) Kenalog (Triamcinol one) 06-26 00:00: 00 No 40mg [facility] [place] [facility] [place] 0 06-26 00:00: 00 No 2.5mg [facility] Kenalog (Triamcinol one) Kenalog (Triamcinol one) 06-26 00:00: 00 No 40mg [facility] [place] [facility] [place] 0 06-26 00:00: 00 No 2.5mg [facility] Kenalog (Triamcinol one) Kenalog (Triamcinol one) 06-26 00:00: 00 No 40mg [facility] [place] [facility] [place] 06-26 00:00: 00 No 2.5mg [facility] Kenalog (Triamcinol one) Kenalog (Triamcinol one) 06-26 00:00: 00 No 40mg [facility] [place] [facility] [place] 06-26 00:00: 00 No 2.5mg [facility] Kenalog (Triamcinol one) Kenalog (Triamcinol one) 06-26 00:00: 00 No 40mg [facility] [place] [facility] [place] 06-26 00:00: 00 No 2.5mg [facility] Kenalog (Triamcinol one) Kenalog (Triamcinol one) 06-26 00:00: 00 No 40mg [facility] [place] [facility] [place] 06-26 00:00: 00 No 2.5mg [facility] Kenalog (Triamcinol one) Kenalog (Triamcinol one) 06-26 00:00: 00 No 40mg [facility] [place] [facility] [place] 06-26 00:00: 00 No 2.5mg [facility] Kenalog (Triamcinol one) Kenalog (Triamcinol one) 06-26 00:00: 00 No 40mg [facility] [place] [facility] [place] 0 06-26 00:00: 00 No 2.5mg [facility] Kenalog (Triamcinol one) Kenalog (Triamcinol one) 06-26 00:00: 00 No 40mg [facility] [place] [facility] [place] 0 06-26 00:00: 00 No 2.5mg [facility] Kenalog (Triamcinol one) Kenalog (Triamcinol one) 06-26 00:00: 00 No 40mg [facility] [place] [facility] [place] 0 06-26 00:00: 00 No 2.5mg [facility] Kenalog (Triamcinol one) Kenalog (Triamcinol one) 06-26 00:00: 00 No 40mg [facility] [place] [facility] [place] 06-26 00:00: 00 No 2.5mg [facility] Kenalog (Triamcinol one) Kenalog (Triamcinol one) 06-26 00:00: 00 No 40mg [facility] [place] [facility] [place] 06-26 00:00: 00 No 2.5mg [facility] Kenalog (Triamcinol one) Kenalog (Triamcinol one) 06-26 00:00: 00 No 40mg [facility]iv[facility] [place] [facility] [place] 0 06-26 00:00: 00 No 2.5mg [facility]iv[facility] [place] [facility] [place] 0 06-26 00:00: 00 No 2.5mg [facility] Kenalog (Triamcinol one) Kenalog (Triamcinol one) 06-26 00:00: 00 No 40mg [facility] [place] [facility] [place] 0 06-26 00:00: 00 No 2.5mg [facility] Kenalog (Triamcinol one) Kenalog (Triamcinol one) 06-26 00:00: 00 No 40mg [facility]iv[facility] [place] [facility] [place] 0 06-26 00:00: 00 No 2.5mg [facility] Kenalog (Triamcinol one) Kenalog (Triamcinol one) 0 06-26 00:00: 00 No 40mg [facility] [place] [facility] [place] 0 06-26 00:00: 00 No 2.5mg [facility] Kenalog (Triamcinol one) Kenalog (Triamcinol one) 0 06-26 00:00: 00 No 40mg [facility] [place] [facility] [place] 0 06-26 00:00: 00 No 2.5mg [facility] Kenalog (Triamcinol one) Kenalog (Triamcinol one) 06-26 00:00: 00 No 40mg [facility]iv[facility] [place] [facility] [place] 0 06-26 00:00: 00 No 2.5mg [facility] Kenalog (Triamcinol one) Kenalog (Triamcinol one) 06-26 00:00: 00 No 40mg [facility] [place] [facility] [place] 0 06-26 00:00: 00 No 2.5mg [facility] Kenalog (Triamcinol one) Kenalog (Triamcinol one) 0 06-26 00:00: 00 No 40mg [facility] [place] [facility] [place] 0 06-26 00:00: 00 No 2.5mg [facility] Kenalog (Triamcinol one) Kenalog (Triamcinol one) 0 06-26 00:00: 00 No 40mg [facility] [place] [facility] [place] 0 06-26 00:00: 00 No 2.5mg [facility] Kenalog (Triamcinol one) Kenalog (Triamcinol one) 0 06-26 00:00: 00 No 40mg [facility] [place] [facility] [place] 0 06-26 00:00: 00 No 2.5mg [facility] Kenalog (Triamcinol one) Kenalog (Triamcinol one) 0 06-26 00:00: 00 No 40mg [facility] [place] [facility] [place] 0 06-26 00:00: 00 No 2.5mg [facility] Kenalog (Triamcinol one) Kenalog (Triamcinol one) 06-26 00:00: 00 No 40mg [facility] [place] [facility] [place] 0 06-26 00:00: 00 No 2.5mg [facility] Kenalog (Triamcinol one) Kenalog (Triamcinol one) 0 06-26 00:00: 00 No 40mg [facility] [place] [facility]up[facility] [place] 0 06-26 00:00: 00 No 2.5mg [facility] Kenalog (Triamcinol one) Kenalog (Triamcinol one) 0 06-26 00:00: 00 No 40mg [facility] [place] [facility] [place] 0 06-26 00:00: 00 No 2.5mg [facility] Kenalog (Triamcinol one) Kenalog (Triamcinol one) 0 06-26 00:00: 00 No 40mg [facility] [place] [facility] [place] 2020-0 06-26 00:00: 00 No 2.5mg [facility] Kenalog (Triamcinol one) Kenalog (Triamcinol one) 06-26 00:00: 00 No 40mg [facility] Kenalog (Triamcinol one) Kenalog (Triamcinol one) 06-26 00:00: 00 No 40mg [facility] [place] [facility] [place] 06-26 00:00: 00 No 2.5mg [facility] Kenalog (Triamcinol one) Kenalog (Triamcinol one) 06-26 00:00: 00 No 40mg [facility] [place] [facility] [place] 0 06-26 00:00: 00 No 2.5mg [facility] Kenalog (Triamcinol one) Kenalog (Triamcinol one) 06-26 00:00: 00 No 40mg [facility] [place] [facility] [place] 06-26 00:00: 00 No 2.5mg [facility] traMADol HCl 50 MG traMADol HCl 50 MG 0 06-26 00:00: 00 07-03 00:00 :00 No 1{table t_as_ne eded} traMADol HCl 50 MG [facility] [place] [facility] [place] 0 05-22 00:00: 00 No 2.5mg [facility] Kenalog (Triamcinol one) Kenalog (Triamcinol one) 0 05-22 00:00: 00 No 40mg [facility] [place] [facility] [place] 2020-0 05-22 00:00: 00 No 2.5mg [facility] Kenalog (Triamcinol one) Kenalog (Triamcinol one) 0 05-22 00:00: 00 No 40mg [facility] [place] [facility] [place] 0 05-22 00:00: 00 No 2.5mg [facility] Kenalog (Triamcinol one) Kenalog (Triamcinol one) 0 05-22 00:00: 00 No 40mg [facility] [place] [facility] [place] 0 05-22 00:00: 00 No 2.5mg [facility] Kenalog (Triamcinol one) Kenalog (Triamcinol one) 0 05-22 00:00: 00 No 40mg [facility] [place] [facility]up[facility] [place] 0 05-22 00:00: 00 No 2.5mg [facility] Kenalog (Triamcinol one) Kenalog (Triamcinol one) 0 05-22 00:00: 00 No 40mg [facility] [place] [facility]up[facility] [place] 0 05-22 00:00: 00 No 2.5mg [facility] Kenalog (Triamcinol one) Kenalog (Triamcinol one) 0 05-22 00:00: 00 No 40mg [facility] [place] Bup[facility] [place] 0 05-22 00:00: 00 No 2.5mg [facility] Kenalog (Triamcinol one) Kenalog (Triamcinol one) 0 05-22 00:00: 00 No 40mg [facility] [place] Bup[facility] [place] 0 05-22 00:00: 00 No 2.5mg [facility] Kenalog (Triamcinol one) Kenalog (Triamcinol one) 0 05-22 00:00: 00 No 40mg [facility] [place] Bup[facility] [place] 0 05-22 00:00: 00 No 2.5mg [facility] Kenalog (Triamcinol one) Kenalog (Triamcinol one) 0 05-22 00:00: 00 No 40mg [facility] [place] Bup[facility] [place] 0 05-22 00:00: 00 No 2.5mg [facility] Kenalog (Triamcinol one) Kenalog (Triamcinol one) 0 05-22 00:00: 00 No 40mg [facility]iv[facility] [place] Bup[facility] [place] 0 05-22 00:00: 00 No 2.5mg [facility] Kenalog (Triamcinol one) Kenalog (Triamcinol one) 0 05-22 00:00: 00 No 40mg [facility] [place] Bup[facility] [place] 0 05-22 00:00: 00 No 2.5mg [facility] Kenalog (Triamcinol one) Kenalog (Triamcinol one) 0 05-22 00:00: 00 No 40mg [facility] [place] Bupiv[facility] [place] 0 05-22 00:00: 00 No 2.5mg [facility] Kenalog (Triamcinol one) Kenalog (Triamcinol one) 0 05-22 00:00: 00 No 40mg [facility] [place] Bupiv[facility]aine [place] 0 05-22 00:00: 00 No 2.5mg [facility] Kenalog (Triamcinol one) Kenalog (Triamcinol one) 0 05-22 00:00: 00 No 40mg [facility] [place] Bup[facility] [place] 0 05-22 00:00: 00 No 2.5mg [facility] Kenalog (Triamcinol one) Kenalog (Triamcinol one) 0 05-22 00:00: 00 No 40mg [facility] [place] [facility] [place] 2020-0 05-22 00:00: 00 No 2.5mg [facility] Kenalog (Triamcinol one) Kenalog (Triamcinol one) 0 05-22 00:00: 00 No 40mg [facility] [place] Bup[facility] [place] 0 05-22 00:00: 00 No 2.5mg [facility] Kenalog (Triamcinol one) Kenalog (Triamcinol one) 0 05-22 00:00: 00 No 40mg [facility] [place] Bup[facility] [place] 0 05-22 00:00: 00 No 2.5mg [facility] Kenalog (Triamcinol one) Kenalog (Triamcinol one) 0 05-22 00:00: 00 No 40mg [facility] [place] Bup[facility] [place] 0 05-22 00:00: 00 No 2.5mg [facility] Kenalog (Triamcinol one) Kenalog (Triamcinol one) 0 05-22 00:00: 00 No 40mg [facility] [place] Bupiv[facility] [place] 0 05-22 00:00: 00 No 2.5mg [facility] Kenalog (Triamcinol one) Kenalog (Triamcinol one) 0 05-22 00:00: 00 No 40mg [facility] [place] [facility] [place] 2020-0 05-22 00:00: 00 No 2.5mg [facility] Kenalog (Triamcinol one) Kenalog (Triamcinol one) 0 05-22 00:00: 00 No 40mg [facility] [place] [facility] [place] 2020-0 05-22 00:00: 00 No 2.5mg [facility] Kenalog (Triamcinol one) Kenalog (Triamcinol one) 0 05-22 00:00: 00 No 40mg [facility] [place] [facility] [place] 2020-0 05-22 00:00: 00 No 2.5mg [facility] Kenalog (Triamcinol one) Kenalog (Triamcinol one) 2020-0 8 00:00: 00 No 40mg [facility] [place] [facility] [place] 2020-0 05-22 00:00: 00 No 2.5mg [facility] Kenalog (Triamcinol one) Kenalog (Triamcinol one) 0 05-22 00:00: 00 No 40mg [facility] [place] [facility] [place] 2020-0 05-22 00:00: 00 No 2.5mg [facility] Kenalog (Triamcinol one) Kenalog (Triamcinol one) 2020-0 05-22 00:00: 00 No 40mg [facility] [place] [facility] [place] 2020-0 05-22 00:00: 00 No 2.5mg [facility] Kenalog (Triamcinol one) Kenalog (Triamcinol one) 2020-0 05-22 00:00: 00 No 40mg [facility] [place] [facility] [place] 2020-0 05-22 00:00: 00 No 2.5mg [facility] Kenalog (Triamcinol one) Kenalog (Triamcinol one) 2020-0 05-22 00:00: 00 No 40mg [facility] [place] [facility] [place] 2020-0 05-22 00:00: 00 No 2.5mg [facility] Kenalog (Triamcinol one) Kenalog (Triamcinol one) 2020-0 8 00:00: 00 No 40mg [facility] [place] [facility] [place] 0 05-22 00:00: 00 No 2.5mg [facility] Kenalog (Triamcinol one) Kenalog (Triamcinol one) 0 05-22 00:00: 00 No 40mg [facility] [place] [facility] [place] 2020-0 05-22 00:00: 00 No 2.5mg [facility] Kenalog (Triamcinol one) Kenalog (Triamcinol one) 0 05-22 00:00: 00 No 40mg [facility] [place] [facility] [place] 0 05-22 00:00: 00 No 2.5mg [facility] Kenalog (Triamcinol one) Kenalog (Triamcinol one) 0 05-22 00:00: 00 No 40mg [facility] [place] [facility] [place] 0 05-22 00:00: 00 No 2.5mg [facility] Kenalog (Triamcinol one) Kenalog (Triamcinol one) 0 05-22 00:00: 00 No 40mg [facility] [place] [facility] [place] 0 05-22 00:00: 00 No 2.5mg [facility] Kenalog (Triamcinol one) Kenalog (Triamcinol one) 0 05-22 00:00: 00 No 40mg [facility] [place] [facility] [place] 0 05-22 00:00: 00 No 2.5mg [facility] Kenalog (Triamcinol one) Kenalog (Triamcinol one) 0 05-22 00:00: 00 No 40mg [facility] [place] [facility] [place] 2020-0 05-22 00:00: 00 No 2.5mg [facility] Kenalog (Triamcinol one) Kenalog (Triamcinol one) 05-22 00:00: 00 No 40mg [facility] [place] [facility] [place] 05-22 00:00: 00 No 2.5mg [facility] Kenalog (Triamcinol one) Kenalog (Triamcinol one) 05-22 00:00: 00 No 40mg [facility] [place] [facility] [place] 05-22 00:00: 00 No 2.5mg [facility] Kenalog (Triamcinol one) Kenalog (Triamcinol one) 05-22 00:00: 00 No 40mg [facility] [place] [facility] [place] 05-22 00:00: 00 No 2.5mg [facility] Kenalog (Triamcinol one) Kenalog (Triamcinol one) 05-22 00:00: 00 No 40mg [facility] [place] [facility] [place] 05-22 00:00: 00 No 2.5mg [facility] Kenalog (Triamcinol one) Kenalog (Triamcinol one) 05-22 00:00: 00 No 40mg [facility] [place] [facility] [place] 05-22 00:00: 00 No 2.5mg [facility] Kenalog (Triamcinol one) Kenalog (Triamcinol one) 05-22 00:00: 00 No 40mg [facility] atorvastati n 80 mg tablet 01-27 00:00: 00 Yes 80mg Take 1 tablet by mouth daily. [facility] pantoprazol e 40 mg EC tablet 01-27 00:00: 00 Yes 40mg Take 1 tablet by mouth daily. [facility] isosorbide mononitrate 30 mg 24 hr tablet 01-27 00:00: 00 Yes 30mg Take 1 tablet by mouth daily. [facility] atorvastati n 80 mg tablet 01-27 00:00: 00 Yes 80mg Take 1 tablet by mouth daily. [facility] pantoprazol e 40 mg EC tablet 01-27 00:00: 00 Yes 40mg Take 1 tablet by mouth daily. [facility] isosorbide mononitrate 30 mg 24 hr tablet 01-27 00:00: 00 Yes 30mg Take 1 tablet by mouth daily. [facility] atorvastati n 80 mg tablet 01-27 00:00: 00 Yes 80mg Take 1 tablet by mouth daily. [facility] pantoprazol e 40 mg EC tablet 01-27 00:00: 00 Yes 40mg Take 1 tablet by mouth daily. [facility] isosorbide mononitrate 30 mg 24 hr tablet 01-27 00:00: 00 Yes 30mg Take 1 tablet by mouth daily. [facility] atorvastati n 80 mg tablet 01-27 00:00: 00 Yes 80mg Take 1 tablet by mouth daily. [facility] pantoprazol e 40 mg EC tablet 01-27 00:00: 00 Yes 40mg Take 1 tablet by mouth daily. [facility] isosorbide mononitrate 30 mg 24 hr tablet 01-27 00:00: 00 Yes 30mg Take 1 tablet by mouth daily. [facility] atorvastati n 80 mg tablet 01-27 00:00: 00 Yes 80mg Take 1 tablet by mouth daily. [facility] pantoprazol e 40 mg EC tablet 01-27 00:00: 00 Yes 40mg Take 1 tablet by mouth daily. [facility] isosorbide mononitrate 30 mg 24 hr tablet 01-27 00:00: 00 Yes 30mg Take 1 tablet by mouth daily. [facility] atorvastati n 80 mg tablet 01-27 00:00: 00 Yes 80mg Take 1 tablet by mouth daily. [facility] pantoprazol e 40 mg EC tablet 01-27 00:00: 00 Yes 40mg Take 1 tablet by mouth daily. [facility] isosorbide mononitrate 30 mg 24 hr tablet 01-27 00:00: 00 Yes 30mg Take 1 tablet by mouth daily. [facility] atorvastati n 80 mg tablet 01-27 00:00: 00 Yes 80mg Take 1 tablet by mouth daily. [facility] pantoprazol e 40 mg EC tablet 01-27 00:00: 00 Yes 40mg Take 1 tablet by mouth daily. [facility] isosorbide mononitrate 30 mg 24 hr tablet 01-27 00:00: 00 Yes 30mg Take 1 tablet by mouth daily. [facility] metoprolol succinate XL 50 mg 24 hr tablet 01-26 00:00: 00 Yes 50mg Take 1 tablet by mouth 2 (two) times daily. [facility] aspirin 81 mg chewable tablet 01-26 00:00: 00 Yes 81mg Take 1 tablet by mouth daily. [facility] lisinopril 2.5 mg tablet 01-26 00:00: 00 Yes 2.5mg Take 1 tablet by mouth daily. [facility] zolpidem 5 mg tablet 01-26 00:00: 00 Yes 5mg Take 1 tablet by mouth at bedtime as needed for Insomnia. [facility] metoprolol succinate XL 50 mg 24 hr tablet 01-26 00:00: 00 Yes 50mg Take 1 tablet by mouth 2 (two) times daily. [facility] aspirin 81 mg chewable tablet 01-26 00:00: 00 Yes 81mg Take 1 tablet by mouth daily. [facility] lisinopril 2.5 mg tablet 01-26 00:00: 00 Yes 2.5mg Take 1 tablet by mouth daily. [facility] zolpidem 5 mg tablet 01-26 00:00: 00 Yes 5mg Take 1 tablet by mouth at bedtime as needed for Insomnia. [facility] aspirin 81 mg chewable tablet 01-26 00:00: 00 Yes 81mg Take 1 tablet by mouth daily. [facility] lisinopril 2.5 mg tablet 01-26 00:00: 00 Yes 2.5mg Take 1 tablet by mouth daily. [facility] aspirin 81 mg chewable tablet 01-26 00:00: 00 Yes 81mg Take 1 tablet by mouth daily. [facility] lisinopril 2.5 mg tablet 01-26 00:00: 00 Yes 2.5mg Take 1 tablet by mouth daily. [facility] aspirin 81 mg chewable tablet 01-26 00:00: 00 Yes 81mg Take 1 tablet by mouth daily. [facility] lisinopril 2.5 mg tablet 01-26 00:00: 00 Yes 2.5mg Take 1 tablet by mouth daily. [facility] aspirin 81 mg chewable tablet 01-26 00:00: 00 Yes 81mg Take 1 tablet by mouth daily. [facility] lisinopril 2.5 mg tablet 01-26 00:00: 00 Yes 2.5mg Take 1 tablet by mouth daily. [facility] aspirin 81 mg chewable tablet 01-26 00:00: 00 Yes 81mg Take 1 tablet by mouth daily. [facility] lisinopril 2.5 mg tablet 01-26 00:00: 00 Yes 2.5mg Take 1 tablet by mouth daily. [facility] metoprolol succinate XL 50 mg 24 hr tablet 01-26 00:00: 00 05-24 00:00 :00 No 50mg Take 1 tablet by mouth 2 (two) times daily. [facility] zolpidem 5 mg tablet 01-26 00:00: 00 05-24 00:00 :00 No 5mg Take 1 tablet by mouth at bedtime as needed for Insomnia. [facility] sulindac (CLINORIL) 200 mg tablet 05-13 00:00: 00 Yes 200mg Take 1 tablet by mouth 2 (two) times daily. [facility] sulindac (CLINORIL) 200 mg tablet 05-13 00:00: 00 Yes 200mg Take 1 tablet by mouth 2 (two) times daily. [facility] sulindac (CLINORIL) 200 mg tablet 05-13 00:00: 00 05-24 00:00 :00 No 200mg Take 1 tablet by mouth 2 (two) times daily. [facility] Lisinopril 2.5 MG Lisinopril 2.5 MG No [...] ine Dihydrochlo ride 5 MG No 1{table t_in e_eveni ng} QD Levocetiri zine Dihydrochl oride [...] ine Dihydrochlo ride 5 MG No 1{table t_in e_eveni ng} QD Levocetiri zine Dihydrochl oride [...] t} QD Metoprolol Succinate ER 50 MG Aspirin Adult Low Strength 81 MG Aspirin Adult Low Strength 81 MG No 1{table t} QD Aspirin Adult Low Strength 81 MG Vitamin C Vitamin C No Vitamin C Atorvastati n Calcium 40 MG Atorvastati n Calcium 40 MG No 1{table t} QD Atorvastat in Calcium 40 MG traMADol HCl ER 200 MG traMADol HCl ER 200 MG No 1{table t} QD traMADol HCl ER 200 MG Levocetiriz ine Dihydrochlo ride 5 MG Levocetiriz ine Dihydrochlo ride 5 MG No 1{table t_in e_eveni ng} QD Levocetiri zine Dihydrochl oride 5 MG Gabapentin 800 MG Gabapentin 800 MG No QD Gabapentin 800 MG Vitamin D3 125 MCG (5000 UT) Vitamin D3 125 MCG (5000 UT) No 1{table t} QD Vitamin D3 125 MCG (5000 UT) Lisinopril 10 MG Lisinopril 10 MG No 1{table t} QD Lisinopril 10 MG Metoprolol Succinate ER 50 MG Metoprolol Succinate ER 50 MG No 1{table t} QD Metoprolol Succinate ER 50 MG Aspirin Adult Low Strength 81 MG Aspirin Adult Low Strength 81 MG No 1{table t} QD Aspirin Adult Low Strength 81 MG Vitamin C Vitamin C No Vitamin C Atorvastati n Calcium 40 MG Atorvastati n Calcium 40 MG No 1{table t} QD Atorvastat in Calcium 40 MG traMADol HCl ER 200 MG traMADol HCl ER 200 MG No 1{table t} QD traMADol HCl ER 200 MG Levocetiriz ine Dihydrochlo ride 5 MG Levocetiriz ine Dihydrochlo ride 5 MG No 1{table t_in_ e_eveni ng} QD Levocetiri zine Dihydrochl oride 5 MG Gabapentin 800 MG Gabapentin 800 MG No QD Gabapentin 800 MG Vitamin D3 125 MCG (5000 UT) Vitamin D3 125 MCG (5000 UT) No 1{table t} QD Vitamin D3 125 MCG (5000 UT) Lisinopril 10 MG Lisinopril 10 MG No 1{table t} QD Lisinopril 10 MG Aspirin Adult Low Strength 81 MG Aspirin Adult Low Strength 81 MG No 1{table t} QD Aspirin Adult Low Strength 81 MG Iron Iron No Iron Atorvastati n Calcium 40 MG Atorvastati n Calcium 40 MG No 1{table t} QD Atorvastat in Calcium 40 MG Vitamin D3 125 MCG (5000 UT) Vitamin D3 125 MCG (5000 UT) No 1{table t} QD Vitamin D3 125 MCG (5000 UT) Vitamin C Vitamin C No Vitamin C Levocetiriz ine Dihydrochlo ride 5 MG Levocetiriz ine Dihydrochlo ride 5 MG No 1{table t_in e_eveni ng} QD Levocetiri zine Dihydrochl oride 5 MG traMADol HCl ER 200 MG traMADol HCl ER 200 MG No 1{table t} QD traMADol HCl ER 200 MG Lisinopril 10 MG Lisinopril 10 MG No 1{table t} QD Lisinopril 10 MG Gabapentin 800 MG Gabapentin 800 MG [...] No Atorvastat in Calcium 40 MG Aspirin Adult Low Strength 81 MG Aspirin Adult Low Strength 81 MG No 1{table t} QD Aspirin Adult Low Strength 81 MG Atorvastati n Calcium 40 MG [...] ine Dihydrochlo ride 5 MG No 1{table t_in e_eveni ng} QD Levocetiri zine Dihydrochl oride 5 MG traMADol HCl ER 200 MG traMADol HCl ER 200 MG No 1{table t} QD traMADol HCl ER 200 MG Lisinopril 10 MG Lisinopril 10 MG No 1{table t} QD Lisinopril 10 MG Gabapentin 800 MG Gabapentin 800 MG No QD Gabapentin 800 MG Metoprolol Succinate ER 50 MG Metoprolol Succinate ER 50 MG No 1{table t} QD Metoprolol Succinate ER 50 MG EpiPen EpiPen No EpiPen tiZANidine HCl tiZANidine HCl No tiZANidine HCl Aspirin Adult Low Strength 81 MG Aspirin Adult Low Strength 81 MG No 1{table t} QD Aspirin Adult Low Strength 81 MG Atorvastati n Calcium 40 MG Atorvastati n Calcium 40 MG No 1{table t} QD Atorvastat in Calcium 40 MG Vitamin D3 125 MCG (5000 UT) Vitamin D3 125 MCG (5000 UT) No 1{table t} QD Vitamin D3 125 MCG (5000 UT) Lisinopril 2.5 MG Lisinopril 2.5 MG No Lisinopril 2.5 MG Vitamin C Vitamin C No Vitamin C Levocetiriz ine Dihydrochlo ride 5 MG Levocetiriz ine Dihydrochlo ride 5 MG No 1{table t_in e_eveni ng} QD Levocetiri zine Dihydrochl oride 5 MG traMADol HCl ER 200 MG traMADol HCl ER 200 MG No 1{table t} QD traMADol HCl ER 200 MG Lisinopril 10 MG Lisinopril 10 MG No 1{table t} QD Lisinopril 10 MG Gabapentin 800 MG Gabapentin 800 MG No QD Gabapentin 800 MG Metoprolol Succinate ER 50 MG Metoprolol Succinate ER 50 MG No 1{table t} QD Metoprolol Succinate ER 50 MG Lisinopril 2.5 MG Lisinopril 2.5 MG No 1{table t} QD Lisinopril 2.5 MG Vitamin C Vitamin C No Vitamin C Aspirin Adult Low Strength 81 MG Aspirin Adult Low Strength 81 MG No 1{table t} QD Aspirin Adult Low Strength 81 MG Magnesium Magnesium No Magnesium Vitamin C Vitamin C No Vitamin C Vitamin D3 125 MCG (5000 UT) Vitamin D3 125 MCG (5000 UT) No 1{table t} QD Vitamin D3 125 MCG (5000 UT) Montelukast Sodium 10 MG Montelukast Sodium 10 MG No Montelukas t Sodium 10 MG Metoprolol Succinate ER 50 MG Metoprolol Succinate ER 50 MG No 1{table t} QD Metoprolol Succinate ER 50 MG Levocetiriz ine Dihydrochlo ride 5 MG Levocetiriz ine Dihydrochlo ride 5 MG No 1{table t_in e_eveni ng} QD Levocetiri zine Dihydrochl oride 5 MG Atorvastati n Calcium 40 MG Atorvastati n Calcium 40 MG No 1{table t} QD Atorvastat in Calcium 40 MG traMADol HCl ER 200 MG traMADol HCl ER 200 MG No 1{table t} QD traMADol HCl ER 200 MG Lisinopril 10 MG Lisinopril 10 MG No 1{table t} QD Lisinopril 10 MG Gabapentin 800 MG Gabapentin 800 MG No QD Gabapentin 800 MG traMADol HCl 50 MG traMADol HCl [...] Lisinopril 2.5 MG No Lisinopril 2.5 MG traMADol HCl ER 200 MG traMADol HCl ER 200 MG No 1{table t} QD traMADol HCl ER 200 MG Vitamin C Vitamin C No Vitamin C tiZANidine HCl tiZANidine HCl No tiZANidine HCl Montelukast Sodium 10 MG Montelukast Sodium 10 MG No Montelukas t Sodium 10 MG Gabapentin 800 MG Gabapentin 800 MG No QD Gabapentin 800 MG Albuterol Sulfate HFA 108 (90 Base) MCG/ACT Albuterol Sulfate HFA 108 (90 Base) MCG/ACT No 1{puff_ as_need ed} 6xD Albuterol Sulfate HFA 108 (90 Base) MCG/ACT Atorvastati n Calcium 80 MG Atorvastati n Calcium 80 MG No 1{table t} QD Atorvastat in Calcium 80 MG Metoprolol Succinate ER 50 MG Metoprolol Succinate ER 50 MG No 1{table t} QD Metoprolol Succinate ER 50 MG Aspirin Adult Low Strength 81 MG Aspirin Adult Low Strength 81 MG No 1{table t} QD Aspirin Adult Low Strength 81 MG Lisinopril 20 MG Lisinopril 20 MG No 1{table t} QD Lisinopril 20 MG Vitamin C Vitamin C No Vitamin [...] t} BID Metoprolol Succinate ER 50 MG traMADol HCl ER 200 MG traMADol HCl ER 200 MG No 1{table t} QD traMADol HCl ER 200 MG Vitamin C Vitamin C No Vitamin C Montelukast Sodium 10 MG Montelukast Sodium 10 MG No Montelukas t Sodium 10 MG Gabapentin 800 MG Gabapentin 800 MG No QD Gabapentin 800 MG Albuterol Sulfate HFA 108 (90 Base) MCG/ACT Albuterol Sulfate HFA 108 (90 Base) MCG/ACT No 1{puff_ as_need ed} 6xD Albuterol Sulfate HFA 108 (90 Base) MCG/ACT Atorvastati n Calcium 80 MG Atorvastati n Calcium 80 MG No 1{table t} QD Atorvastat in Calcium 80 MG Metoprolol Succinate ER 50 MG Metoprolol Succinate ER 50 MG No 1{table t} QD Metoprolol Succinate ER 50 MG Aspirin Adult Low Strength 81 MG Aspirin Adult Low Strength 81 MG No 1{table t} QD Aspirin Adult Low Strength 81 MG Lisinopril 20 MG Lisinopril 20 MG No 1{table t} QD Lisinopril 20 MG EpiPen EpiPen No EpiPen Metoprolol Succinate ER 50 MG Metoprolol Succinate ER 50 MG No Metoprolol Succinate ER 50 MG Magnesium Magnesium No Magnesium traMADol HCl ER 200 MG traMADol HCl ER 200 MG No 1{table t} QD traMADol HCl ER 200 MG Vitamin C Vitamin C No Vitamin C Montelukast Sodium 10 MG Montelukast Sodium 10 MG No Montelukas t Sodium 10 MG Gabapentin 800 MG Gabapentin 800 MG No QD Gabapentin 800 MG Albuterol Sulfate HFA 108 (90 Base) MCG/ACT Albuterol Sulfate HFA 108 (90 Base) MCG/ACT No 1{puff_ as_need ed} 6xD Albuterol Sulfate HFA 108 (90 Base) MCG/ACT Atorvastati n Calcium 80 MG Atorvastati n Calcium 80 MG No 1{table t} QD Atorvastat in Calcium 80 MG Metoprolol Succinate ER 50 MG Metoprolol Succinate ER 50 MG No 1{table t} QD Metoprolol Succinate ER 50 MG Aspirin Adult Low Strength 81 MG Aspirin Adult Low Strength 81 MG No 1{table t} QD Aspirin Adult Low Strength 81 MG Lisinopril 20 MG Lisinopril 20 MG No 1{table t} QD Lisinopril 20 MG traMADol HCl ER 200 MG traMADol HCl ER 200 MG No 1{table t} QD traMADol HCl ER 200 MG Vitamin C Vitamin C No Vitamin C Montelukast Sodium 10 MG Montelukast Sodium 10 MG No Montelukas t Sodium 10 MG Gabapentin 800 MG Gabapentin 800 MG No QD Gabapentin 800 MG Albuterol Sulfate HFA 108 (90 Base) MCG/ACT Albuterol Sulfate HFA 108 (90 Base) MCG/ACT No 1{puff_ as_need ed} 6xD Albuterol Sulfate HFA 108 (90 Base) MCG/ACT Atorvastati n Calcium 80 MG Atorvastati n Calcium 80 MG No 1{table t} QD Atorvastat in Calcium 80 MG Metoprolol Succinate ER 50 MG Metoprolol Succinate ER 50 MG No 1{table t} QD Metoprolol Succinate ER 50 MG Aspirin Adult Low Strength 81 MG Aspirin Adult Low Strength 81 MG No 1{table t} QD Aspirin Adult Low Strength 81 MG Lisinopril 20 MG Lisinopril 20 MG No 1{table t} QD Lisinopril 20 MG Vitamin C Vitamin C No Vitamin [...] No 1{capsu le} QD Gabapentin 300 MG Metoprolol Succinate ER 50 MG Metoprolol [...] t} QD Atorvastat in Calcium 40 MG Immunizations Ordered Immunization Name Filled Immunization Name Date Status Comments Source Kenalog (Triamcinolone) Kenalog (Triamcinolone) 2021-07-11 09:32:00 Completed [facility] [place] [facility] [place] 2021-06-26 09:38:00 Completed [facility] Kenalog (Triamcinolone) Kenalog (Triamcinolone) 2021-06-26 09:38:00 Completed [facility] [place] [facility] [place] 2021-06-26 09:38:00 Completed [facility] Kenalog (Triamcinolone) Kenalog (Triamcinolone) 2021-06-26 09:38:00 Completed [facility] [place] [facility] [place] 2021-06-26 09:38:00 Completed [facility] Kenalog (Triamcinolone) Kenalog (Triamcinolone) 2021-06-26 09:38:00 Completed [facility] [place] [facility] [place] 2021-06-26 09:38:00 Completed [facility] Kenalog (Triamcinolone) Kenalog (Triamcinolone) 2021-06-26 09:38:00 Completed [facility] [place] [facility] [place] 2021-05-22 08:55:00 Completed [facility] Kenalog (Triamcinolone) Kenalog (Triamcinolone) 2021-05-22 08:55:00 Completed [facility] [place] [facility] [place] 2021-05-22 08:55:00 Completed [facility] Kenalog (Triamcinolone) Kenalog (Triamcinolone) 2021-05-22 08:55:00 Completed [facility] [place] [facility] [place] 2021-05-22 08:55:00 Completed [facility] Kenalog (Triamcinolone) Kenalog (Triamcinolone) 2021-05-22 08:55:00 Completed [facility] [place] [facility] [place] 2021-05-22 08:55:00 Completed [facility] Kenalog (Triamcinolone) Kenalog (Triamcinolone) 2021-05-22 08:55:00 Completed [facility] Pneumococcal Polysaccharide, PPSV23 (PNEUMOVAX) 2018-01-26 00:00:00 Completed [facility] Pneumococcal Polysaccharide, PPSV23 (PNEUMOVAX) 2018-01-26 00:00:00 Completed [facility] Pneumococcal Polysaccharide, PPSV23 (PNEUMOVAX) 2018-01-26 00:00:00 Completed [facility] Pneumococcal Polysaccharide, PPSV23 (PNEUMOVAX) 2018-01-26 00:00:00 Completed [facility] Pneumococcal Polysaccharide, PPSV23 (PNEUMOVAX) 2018-01-26 00:00:00 Completed [facility] Pneumococcal Polysaccharide, PPSV23 (PNEUMOVAX) 2018-01-26 00:00:00 Completed [facility] Pneumococcal Polysaccharide, PPSV23 (PNEUMOVAX) 2018-01-26 00:00:00 Completed [facility] Adacel (Tdap) Adacel (Tdap) 2015-01-11 14:09:00 Completed [facility] Adacel (Tdap) Adacel (Tdap) 2015-01-11 14:09:00 Completed [facility] Adacel (Tdap) Adacel (Tdap) 2015-01-11 14:09:00 Completed [facility] Adacel (Tdap) Adacel (Tdap) 2015-01-11 14:09:00 Completed [facility] Adacel (Tdap) Adacel (Tdap) 2015-01-11 14:09:00 Completed [facility] Adacel (Tdap) Adacel (Tdap) 2015-01-11 14:09:00 Completed [facility] Adacel (Tdap) Adacel (Tdap) 2015-01-11 14:09:00 Completed [facility] Adacel (Tdap) Adacel (Tdap) 2015-01-11 14:09:00 Completed [facility] Adacel (Tdap) Adacel (Tdap) 2015-01-11 14:09:00 Completed [facility] Adacel (Tdap) Adacel (Tdap) 2015-01-11 14:09:00 Completed [facility] Adacel (Tdap) Adacel (Tdap) 2015-01-11 14:09:00 Completed [facility] Adacel (Tdap) Adacel (Tdap) 2015-01-11 14:09:00 [facility]pleted [facility] Adacel (Tdap) Adacel (Tdap) 2015-01-11 14:09:00 [facility]pleted [facility] Adacel (Tdap) Adacel (Tdap) 2015-01-11 14:09:00 Completed [facility] Adacel (Tdap) Adacel (Tdap) 2015-01-11 14:09:00 Completed [facility] Adacel (Tdap) Adacel (Tdap) 2015-01-11 14:09:00 Completed [facility] Adacel (Tdap) Adacel (Tdap) 2015-01-11 14:09:00 Completed [facility] Adacel (Tdap) Adacel (Tdap) 2015-01-11 14:09:00 Completed [facility] Adacel (Tdap) Adacel (Tdap) 2015-01-11 14:09:00 Completed [facility] Adacel (Tdap) Adacel (Tdap) 2015-01-11 14:09:00 Completed [facility] Adacel (Tdap) Adacel (Tdap) 2015-01-11 14:09:00 Completed [facility] Adacel (Tdap) Adacel (Tdap) 2015-01-11 14:09:00 Completed [facility] Adacel (Tdap) Adacel (Tdap) 2015-01-11 14:09:00 Completed [facility] Adacel (Tdap) Adacel (Tdap) 2015-01-11 14:09:00 Completed [facility] Adacel (Tdap) Adacel (Tdap) 2015-01-11 14:09:00 Completed [facility] Adacel (Tdap) Adacel (Tdap) Unknown [facility] Adacel (Tdap) Adacel (Tdap) Unknown Completed [facility] Adacel (Tdap) Adacel (Tdap) Unknown Completed [facility] Adacel (Tdap) Adacel (Tdap) Unknown Completed [facility] Adacel (Tdap) Adacel (Tdap) Unknown Completed [facility] Adacel (Tdap) Adacel (Tdap) Unknown Completed [facility] Adacel (Tdap) Adacel (Tdap) Unknown Completed [facility] [facility] Ad[facility] (Tdap) Adacel (Tdap) Unknown Completed [facility] Ad[facility] (Tdap) Adacel (Tdap) Unknown Completed [facility] Ad[facility] (Tdap) Adacel (Tdap) Unknown Completed [facility] Adac[facility] (Tdap) Adacel (Tdap) Unknown Completed [facility] Adac[facility] (Tdap) Adacel (Tdap) Unknown Completed [facility] Ad[facility] (Tdap) Adacel (Tdap) Unknown Completed [facility] Adac[facility] (Tdap) Adacel (Tdap) Unknown Completed [facility] Ad[facility] (Tdap) Adacel (Tdap) Unknown Completed [facility] Ad[facility] (Tdap) Adacel (Tdap) Unknown Completed [facility] Ad[facility] (Tdap) Adacel (Tdap) Unknown Completed [facility] Adac[facility] (Tdap) Adacel (Tdap) Unknown Completed [facility] Ad[facility] (Tdap) Adacel (Tdap) Unknown Completed [facility] Ad[facility] (Tdap) Adacel (Tdap) Unknown Completed [facility] Ad[facility] (Tdap) Adacel (Tdap) Unknown Completed [facility] Ad[facility] (Tdap) Adacel (Tdap) Unknown Completed [facility] Ad[facility] (Tdap) Adacel (Tdap) Unknown Completed [facility] Adacel (Tdap) Adacel (Tdap) Unknown Completed Co [facility] Adacel (Tdap) Adacel (Tdap) Unknown Completed Co [facility] Vital Signs Vital Name Observation Time Observation Value Comments Yajaira clarke height 2023-09-16 09:00:00 66 [in_i] Commo n [facility] weight 2023-09-16 09:00:00 197 [lb_av] Comm on [facility] temperature 2023-09-16 09:00:00 98.1 [degF] Com [facility] bmi 2023-09-16 09:00:00 31.79 kg/m2 Comm on [facility] oximetry 2023-09-16 09:00:00 96 % Commo n [facility] respiratory rate 2023-09-16 09:00:00 17 /min [facility] blood pressure systolic 2023-09-16 09:00:00 160 mm[Hg] [facility] blood pressure diastolic 2023-09-16 09:00:00 90 mm[Hg] [facility] height 2023-07-08 15:20:00 66 [in_i] Commo n [facility] weight 2023-07-08 15:20:00 197.6 [lb_av] Co [facility] temperature 2023-07-08 15:20:00 97.2 [degF] Com [facility] bmi 2023-07-08 15:20:00 31.89 kg/m2 Comm on [facility] oximetry 2023-07-08 15:20:00 98 % Commo n [facility] respiratory rate 2023-07-08 15:20:00 16 /min [facility] blood pressure systolic 2023-07-08 15:20:00 138 mm[Hg] Common [facility] blood pressure diastolic 2023-07-08 15:20:00 76 mm[Hg] Common [facility] height 2023-05-15 08:00:00 66 [in_i] Commo n [facility] weight 2023-05-15 08:00:00 195 [lb_av] Comm on [facility] temperature 2023-05-15 08:00:00 97.3 [degF] Com mon [facility] bmi 2023-05-15 08:00:00 31.47 kg/m2 Comm on [facility] oximetry 2023-05-15 08:00:00 92 % Commo n [facility] respiratory rate 2023-05-15 08:00:00 16 /min [facility] blood pressure systolic 2023-05-15 08:00:00 132 mm[Hg] Common [facility] blood pressure diastolic 2023-05-15 08:00:00 70 mm[Hg] Common [facility] height 2023-02-12 16:00:00 66 [in_i] Commo n [facility] weight 2023-02-12 16:00:00 195.2 [lb_av] Co mmon [facility] temperature 2023-02-12 16:00:00 98.0 [degF] Com [facility] bmi 2023-02-12 16:00:00 31.5 kg/m2 Commo n [facility] oximetry 2023-02-12 16:00:00 95 % Commo n [facility] respiratory rate 2023-02-12 16:00:00 17 /min Common [facility] blood pressure systolic 2023-02-12 16:00:00 136 mm[Hg] [facility] blood pressure diastolic 2023-02-12 16:00:00 79 mm[Hg] [facility] Systolic blood pressure 2023-01-28 18:22:00 157 mm[Hg] [facility] Diastolic blood pressure 2023-01-28 18:22:00 96 mm[Hg] [facility] Heart rate 2023-01-28 18:22:00 78 /min [facility] temperature 2023-01-28 18:22:00 37.17 Shameka [facility] Respiratory rate 2023-01-28 18:22:00 18 /min [facility] Body weight 2023-01-28 18:22:00 83.915 kg [facility] BMI 2023-01-28 18:22:00 29.86 kg/m2 [facility] Oxygen saturation in Arterial blood by Pulse oximetry 2023-01-28 18:22:00 95 /min [facility] height 2023-01-27 08:30:00 66 [in_i] Commo n [facility] weight 2023-01-27 08:30:00 200 [lb_av] Comm on [facility] temperature 2023-01-27 08:30:00 97.8 [degF] Com mon [facility] bmi 2023-01-27 08:30:00 32.28 kg/m2 Comm on [facility] blood pressure systolic 2023-01-27 08:30:00 132 mm[Hg] Common [facility] blood pressure diastolic 2023-01-27 08:30:00 80 mm[Hg] Common [facility] height 2022-12-11 10:30:00 66 [in_i] Commo n [facility] weight 2022-12-11 10:30:00 198.5 [lb_av] Co mmon [facility] temperature 2022-12-11 10:30:00 97.2 [degF] Com mon [facility] bmi 2022-12-11 10:30:00 32.04 kg/m2 Comm on [facility] blood pressure systolic 2022-12-11 10:30:00 138 mm[Hg] [facility] blood pressure diastolic 2022-12-11 10:30:00 84 mm[Hg] Common [facility] height 2022-11-14 14:50:00 66 [in_i] Commo n [facility] weight 2022-11-14 14:50:00 200 [lb_av] Comm on [facility] temperature 2022-11-14 14:50:00 98.1 [degF] Com [facility] bmi 2022-11-14 14:50:00 32.28 kg/m2 Comm on [facility] oximetry 2022-11-14 14:50:00 98 % Commo n [facility] respiratory rate 2022-11-14 14:50:00 16 /min [facility] blood pressure systolic 2022-11-14 14:50:00 138 mm[Hg] Common [facility] blood pressure diastolic 2022-11-14 14:50:00 78 mm[Hg] Common [facility] height 2022-11-14 15:00:00 66 [in_i] Commo n [facility] weight 2022-11-14 15:00:00 200 [lb_av] Comm on [facility] temperature 2022-11-14 15:00:00 98.1 [degF] Com [facility] bmi 2022-11-14 15:00:00 32.28 kg/m2 Comm on [facility] oximetry 2022-11-14 15:00:00 98 % Commo n [facility] respiratory rate 2022-11-14 15:00:00 16 /min Common [facility] blood pressure systolic 2022-11-14 15:00:00 138 mm[Hg] Common [facility] blood pressure diastolic 2022-11-14 15:00:00 78 mm[Hg] Common [facility] height 2022-11-14 09:30:00 66 [in_i] Commo n [facility] weight 2022-11-14 09:30:00 200 [lb_av] Comm on [facility] temperature 2022-11-14 09:30:00 97.9 [degF] Com mon [facility] bmi 2022-11-14 09:30:00 32.28 kg/m2 Comm on [facility] blood pressure systolic 2022-11-14 09:30:00 132 mm[Hg] Common [facility] blood pressure diastolic 2022-11-14 09:30:00 80 mm[Hg] [facility] Systolic blood pressure 2022-10-20 12:25:00 125 mm[Hg] [facility] Diastolic blood pressure 2022-10-20 12:25:00 76 mm[Hg] [facility] Heart rate 2022-10-20 12:25:00 52 /min [facility] Respiratory rate 2022-10-20 12:25:00 14 /min [facility] Oxygen saturation in Arterial blood by Pulse oximetry 2022-10-20 12:25:00 93 /min [facility] Body temperature 2022-10-20 10:46:00 37.39 Shameka [facility] Body height 2022-10-20 10:46:00 167.6 cm [facility] Body weight 2022-10-20 10:46:00 85.7 kg [facility] BMI 2022-10-20 10:46:00 30.49 kg/m2 [facility] Systolic blood pressure 2022-08-30 20:50:00 92 mm[Hg] [facility] Diastolic blood pressure 2022-08-30 20:50:00 64 mm[Hg] [facility] Heart rate 2022-08-30 20:50:00 53 /min [facility] Respiratory rate 2022-08-30 20:50:00 20 /min [facility] Oxygen saturation in Arterial blood by Pulse oximetry 2022-08-30 20:50:00 94 /min [facility] Body temperature 2022-08-30 13:47:00 35.67 Shameka [facility] Body height 2022-08-30 13:47:00 175.3 cm [facility] Body weight 2022-08-30 13:47:00 92.987 kg [facility] BMI 2022-08-30 13:47:00 30.27 kg/m2 [facility] height 2022-07-31 14:40:00 66 [in_i] Commo n [facility] weight 2022-07-31 14:40:00 201.0 [lb_av] Co mmon [facility] temperature 2022-07-31 14:40:00 98.2 [degF] Com mon [facility] bmi 2022-07-31 14:40:00 32.44 kg/m2 Comm on [facility] oximetry 2022-07-31 14:40:00 97 % Commo n [facility] respiratory rate 2022-07-31 14:40:00 17 /min [facility] blood pressure systolic 2022-07-31 14:40:00 135 mm[Hg] [facility] blood pressure diastolic 2022-07-31 14:40:00 72 mm[Hg] [facility] Systolic blood pressure 2022-05-24 20:23:00 112 mm[Hg] [facility] Diastolic blood pressure 2022-05-24 20:23:00 65 mm[Hg] [facility] Heart rate 2022-05-24 20:23:00 68 /min [facility] Body temperature 2022-05-24 20:23:00 35.83 Shameka [facility] Respiratory rate 2022-05-24 20:23:00 18 /min [facility] Oxygen saturation in Arterial blood by Pulse oximetry 2022-05-24 20:23:00 96 /min [facility] Body height 2022-05-23 19:38:00 175.3 cm [facility] Body weight 2022-05-23 19:38:00 92.987 kg [facility] BMI 2022-05-23 19:38:00 30.27 kg/m2 [facility] height 2022-04-18 10:00:00 66 [in_i] Commo n [facility] weight 2022-04-18 10:00:00 209.0 [lb_av] Co mmon [facility] temperature 2022-04-18 10:00:00 98.1 [degF] Com mon [facility] bmi 2022-04-18 10:00:00 33.73 kg/m2 Comm on [facility] oximetry 2022-04-18 10:00:00 95 % Commo n [facility] respiratory rate 2022-04-18 10:00:00 16 /min [facility] blood pressure systolic 2022-04-18 10:00:00 132 mm[Hg] Common [facility] blood pressure diastolic 2022-04-18 10:00:00 73 mm[Hg] Common [facility] height 2022-04-04 11:10:00 66 [in_i] Commo n [facility] weight 2022-04-04 11:10:00 197 [lb_av] Comm on [facility] temperature 2022-04-04 11:10:00 98 [degF] Comm on [facility] bmi 2022-04-04 11:10:00 31.79 kg/m2 Comm on [facility] blood pressure systolic 2022-04-04 11:10:00 125 mm[Hg] Common [facility] blood pressure diastolic 2022-04-04 11:10:00 65 mm[Hg] Common [facility] height 2022-02-14 08:20:00 66 [in_i] Commo n [facility] weight 2022-02-14 08:20:00 197.3 [lb_av] Co mmon [facility] temperature 2022-02-14 08:20:00 97.3 [degF] Com [facility] bmi 2022-02-14 08:20:00 31.84 kg/m2 Comm on [facility] oximetry 2022-02-14 08:20:00 96 % Commo n [facility] respiratory rate 2022-02-14 08:20:00 16 /min Common [facility] blood pressure systolic 2022-02-14 08:20:00 114 mm[Hg] Common [facility] blood pressure diastolic 2022-02-14 08:20:00 62 mm[Hg] Common [facility] height 2022-01-17 08:10:00 66 [in_i] Commo n [facility] weight 2022-01-17 08:10:00 195.6 [lb_av] Co [facility] temperature 2022-01-17 08:10:00 98.3 [degF] Com [facility] bmi 2022-01-17 08:10:00 31.57 kg/m2 Comm on [facility] oximetry 2022-01-17 08:10:00 98 % Commo n [facility] respiratory rate 2022-01-17 08:10:00 17 /min [facility] blood pressure systolic 2022-01-17 08:10:00 133 mm[Hg] Common [facility] blood pressure diastolic 2022-01-17 08:10:00 72 mm[Hg] [facility] height 2021-10-16 08:20:00 66 [in_i] Commo n [facility] weight 2021-10-16 08:20:00 194.9 [lb_av] Co [facility] temperature 2021-10-16 08:20:00 98.2 [degF] Com [facility] bmi 2021-10-16 08:20:00 31.45 kg/m2 Comm on [facility] oximetry 2021-10-16 08:20:00 97 % Commo n [facility] respiratory rate 2021-10-16 08:20:00 17 /min Common [facility] height 2021-10-16 08:20:00 66 [in_i] Commo n [facility] weight 2021-10-16 08:20:00 194.9 [lb_av] Co mmon [facility] temperature 2021-10-16 08:20:00 98.2 [degF] Com [facility] bmi 2021-10-16 08:20:00 31.45 kg/m2 Comm on [facility] oximetry 2021-10-16 08:20:00 97 % Commo n [facility] respiratory rate 2021-10-16 08:20:00 17 /min [facility] blood pressure systolic 2021-10-16 08:20:00 132 mm[Hg] Common [facility] blood pressure diastolic 2021-10-16 08:20:00 77 mm[Hg] Common [facility] height 2021-10-08 13:10:00 66 [in_i] Commo n [facility] weight 2021-10-08 13:10:00 195.3 [lb_av] Co mmon [facility] temperature 2021-10-08 13:10:00 98.1 [degF] Com [facility] bmi 2021-10-08 13:10:00 31.52 kg/m2 Comm on [facility] oximetry 2021-10-08 13:10:00 97 % Commo n [facility] respiratory rate 2021-10-08 13:10:00 17 /min [facility] blood pressure systolic 2021-10-08 13:10:00 132 mm[Hg] Common [facility] blood pressure diastolic 2021-10-08 13:10:00 73 mm[Hg] [facility] height 2021-07-11 09:10:00 66 [in_i] Commo n [facility] weight 2021-07-11 09:10:00 185.1 [lb_av] Co mmon [facility] temperature 2021-07-11 09:10:00 97.6 [degF] Com mon [facility] bmi 2021-07-11 09:10:00 29.87 kg/m2 Comm on [facility] oximetry 2021-07-11 09:10:00 96 % Commo n [facility] respiratory rate 2021-07-11 09:10:00 18 /min [facility] blood pressure systolic 2021-07-11 09:10:00 138 mm[Hg] [facility] blood pressure diastolic 2021-07-11 09:10:00 76 mm[Hg] [facility] Procedures Procedure Date / Time Performed Performing Clinician Source CONSENT/REFUSAL FOR DIAGNOSIS AND TREATMENT 2023-01-28 18:20:41 Doctor Unassigned, [place] [facility] URINALYSIS 2022-10-20 11:29:00 [facility] URINE DRUG (IMMUNOASSAY) - COMPREHENSIVE DRUG SCREEN W/O REFLEX 2022-10-20 11:29:00 Christen Obando [facility] XR CHEST 1 VW 2022-10-20 11:07:00 Christen Obando [facility] COMP. METABOLIC PANEL ([id number]) 2022-10-20 11:04:00 Singer [facility] SALICYLATE 2022-10-20 11:04:00 Christen Obando [facility] ETHANOL 2022-10-20 11:04:00 [facility] CBC WITH DIFF 2022-10-20 11:04:00 Singer Christen [facility] BASIC METABOLIC PANEL (NA, K, CL, CO2, GLUCOSE, BUN, CREATININE, CA) 2022-08-30 17:22:00 Gertrude Chinchilla [facility] URINALYSIS 2022-08-30 14:21:00 [facility] (IMMUNOASSAY) - COMPREHENSIVE DRUG SCREEN W/O REFLEX 2022-08-30 14:21:00 Gertrude Chinchilla [facility] XR CHEST 1 VW 2022-08-30 14:04:16 [facility] MAGNESIUM 2022-08-30 14:03:00 [facility] TROPONIN I 2022-08-30 14:03:00 Gertrude Chinchilla [facility] COMP. METABOLIC PANEL ([id number]) 2022-08-30 14:03:00 Gertrude Chinchilla [facility] ETHANOL 2022-08-30 14:03:00 Gertrude Chinchilla [facility] CBC WITH DIFF 2022-08-30 14:03:00 Gertrude Chinchilla [facility] XR CHEST 1 VW 2022-05-24 11:38:14 Callie Cuellar [facility] MAGNESIUM 2022-05-24 08:56:00 Callie [facility] TROPONIN I 2022-05-24 08:56:00 Callie [facility]ellar [facility] BASIC METABOLIC PANEL (NA, K, CL, CO2, GLUCOSE, BUN, CREATININE, CA) 2022-05-24 08:56:00 Callie Cuellar [facility] CBC WITH DIFF 2022-05-24 08:56:00 Callie Cuellar [facility] TROPONIN I 2022-05-24 03:51:00 Callie [facility]ellar [facility] XR KUB 2022-05-23 22:25:58 Callie [facility]ellar [facility] URINALYSIS 2022-05-23 22:15:00 Gertrude Chinchilla [facility] CREATININE, URINE RANDOM 2022-05-23 22:15:00 Vani Cuellar [facility] SODIUM, URINE RANDOM 2022-05-23 22:15:00 Callie Cuellar [facility] URINE DRUG (IMMUNOASSAY) - COMPREHENSIVE DRUG SCREEN W/O REFLEX 2022-05-23 22:15:00 Gertrude Chinchilla [facility] TRANSTHORACIC ECHO (TTE) COMPLETE 2022-05-23 20:33:00 Callie Cuellar [facility] COVID-19 (ID NOW RAPID TESTING) 2022-05-23 16:39:00 Gertrude Chinchilla [facility] LAB ONLY COVID INTERPRETATION 2022-05-23 16:39:00 Gertrude Chinchilla [facility] TROPONIN I 2022-05-23 13:42:[address] [facility] COMP. METABOLIC PANEL ([id number]) 2022-05-23 13:42:00 Gertrude Chinchilla [facility] CBC WITH DIFF 2022-05-23 13:42:00 Gertrude Chinchilla [facility] HB ECG ROUTINE & RHYTHM STRIP 2022-05-23 13:12:28 Gertrude Chinchilla [facility] EKG-12 LEAD 2022-05-23 12:44:00 Gertrude Chinchilla [facility] AUTHORIZATION FOR RELEASE OF PHI 2021-11-12 06:01:00 Doctor Unassigned, [place] [facility] Encounters Start Date/Time End Date/Time Encounter Type Admission Type Attending Clinicians Care Facility Care Department Encounter ID Source 2023-10-28 10:03:00 Outpatient Teofilo Rosana [facility] [id number] [facility] 2023-09-25 09:50:00 Out[facility] [id number] [facility] 2023-09-15 10:25:00 Outpatient Ros[facility] [id number] [facility] 2023-09-12 08:30:00 Outpatient R[facility] Redja [facility] [id number] [facility] 2023-08-15 09:11:00 Outpatient Rosana Red [facility] [id number] [facility] 2023-08-14 16:35:00 Outpatient Ross, Mahad [facility] [id number] [facility] 2023-07-04 14:02:00 Outpatient Ross, Mahad [facility] [id number] [facility] 2023-06-05 14:42:00 Outpatient Ross, Mahad [facility] [id number] [facility] 2023-05-14 15:43:00 Outpatient Ross, Mahad [facility] [id number] [facility] 2023-05-09 14:32:00 Outpatient Ross, Mahad [facility] [id number] [facility] 2023-02-11 08:03:01 Outpatient Ross, Mahad [facility] [id number] [facility] 2022-12-02 14:44:00 Outpatient Ross, Mahad [facility] [id number] [facility] 2022-11-14 12:02:00 Outpatient Ross, Mahad [facility] [id number] [facility] 2022-11-12 10:39:01 Outpatient Ross, Mahad [facility] [id number] [facility] 2022-10-07 09:37:01 Outpatient Ross, Mahad [facility] [id number] [facility] 2022-10-04 16:32:01 Outpatient Ross, Mahad [facility] [id number] [facility] 2022-08-16 15:23:00 Outpatient Ross, Mahad [facility] [id number] [facility] 2022-07-31 14:32:00 Outpatient Ross, Mahad [facility] [id number] [facility] 2022-07-29 16:01:01 Outpatient Ross, Mahad [facility] [id number] [facility] 2022-07-19 16:30:01 Outpatient Ross, Mahad [facility] [id number] [facility] 2022-07-16 10:11:00 Outpatient Ross, Mahad [facility] [id number] [facility] 2022-06-25 14:39:00 Outpatient Ross, Mahad [facility] [id number] [facility] 2022-05-16 12:11:01 Outpatient Ross, Mahad [facility] [id number] [facility] 2021-10-24 13:24:10 Outpatient Ross, Mahad [facility] [id number] [facility] 2021-10-24 13:06:32 Outpatient Ross, Mahad [facility] [id number] [facility] 2021-10-24 12:40:59 Outpatient Ross, Mahad [facility] [id number] [facility] 2021-10-24 12:30:18 Outpatient Ross, Mahad STLMLC STLMLC [id number] [facility] 2021-10-24 12:29:04 Outpatient Ross, Mahad STLMLC STLMLC [id number] [facility] 2021-10-24 11:52:46 Outpatient Ross, Mahad STLMLC STLMLC [id number] [facility] 2021-10-24 11:44:17 Outpatient Ross, Mahad STLMLC STLMLC [id number] [facility] 2021-10-24 11:37:11 Outpatient Ross, Mahad STLMLC STLMLC [id number] [facility] 2021-07-28 05:50:12 Emergency [facility] [id number] [facility] 2023-09-24 00:00:00 2023-09-24 00:00:00 (TEL) STLMLC STLMLC [id number] [facility] 2023-09-24 00:00:00 2023-09-24 00:00:00 (TEL) STLMLC STLMLC [id number] [facility] 2023-09-16 00:00:00 2023-09-16 00:00:00 OFFICE VISIT NEW PT LEVEL 4 STLMLC STLMLC [id number] [facility] 2023-08-14 00:00:00 2023-08-14 00:00:00 (TEL) STLMLC STLMLC [id number] [facility] 2023-07-08 00:00:00 2023-07-08 00:00:00 OFFICE VISIT ESTAB PT LEVEL 4 STLMLC STLMLC [id number] [facility] 2023-07-03 00:00:00 2023-07-03 00:00:00 (TEL) STLMLC STLMLC [id number] [facility] 2023-06-30 00:00:00 2023-06-30 00:00:00 (TEL) STLMLC STLMLC [id number] [facility] 2023-06-24 00:00:00 2023-06-24 00:00:00 (TEL) STLMLC STLMLC [id number] [facility] 2023-06-11 00:00:00 2023-06-11 00:00:00 (TEL) STLMLC STLMLC [id number] [facility] 2023-05-29 00:00:00 2023-05-29 00:00:00 (TEL) STLMLC STLMLC [id number] [facility] 2023-05-20 00:00:2023-05-20 00:00:00 (TEL) STLMLC STLMLC [id number] [facility] 2023-05-15 00:00:00 2023-05-15 00:00:00 OFFICE VISIT ESTAB PT LEVEL 4 STLMLC STLMLC [id number] [facility] 2023-04-25 00:00:00 2023-04-25 00:00:00 Outpatient [place] _B [facility] [id number] [facility] 2023-04-25 00:00:00 2023-04-25 00:00:00 Outpatient [place] _B [facility] [id number] [facility] 2023-03-05 00:00:00 2023-03-05 00:00:00 (TEL) STLMLC STLMLC [id number] [facility] 2023-02-20 16:29:56 2023-02-20 16:29:56 Outpatient SFA SFA [id number] Tim Lambert 2023-02-12 00:00:00 2023-02-12 00:00:00 OFFICE VISIT ESTAB PT LEVEL 4 STLMLC STLMLC [id number] [facility] 2023-02-12 00:00:00 2023-02-12 00:00:00 (TEL) STLMLC STLMLC [id number] [facility] 2023-01-31 00:00:00 2023-01-31 00:00:00 (TEL) STLMLC STLMLC [id number] [facility] 2023-01-28 13:23:00 2023-01-28 14:59:00 Emergency X ZANE LIU TIMOTHY [facility] ERT [id number] [facility] 2023-01-28 13:23:00 2023-01-28 14:59:00 Emergency Zane Liu [facility] 1.2.840.114 350.1.13.10 4.2.7.2.686 [id number] [facility] 2023-01-27 00:00:00 2023-01-27 00:00:00 OFFICE VISIT ESTAB PT LEVEL 4 STLMLC STLMLC [id number] [facility] 2023-01-22 11:17:34 2023-01-22 11:17:34 Outpatient SFA SFA [id number] Tim Lambert 2023-01-10 00:00:00 2023-01-10 00:00:00 (TEL) STLMLC STLMLC [id number] [facility] 2023-01-01 00:00:00 2023-01-01 00:00:00 (TEL) STLMLC STLMLC [id number] [facility] 2022-12-24 08:30:06 2022-12-24 08:30:06 Outpatient SFA SFA [id number] Tim Lambert 2022-12-11 00:00:00 2022-12-11 00:00:00 OFFICE VISIT ESTAB PT LEVEL 4 STLMLC STLMLC [id number] [facility] 2022-12-02 00:00:00 2022-12-02 00:00:00 (TEL) STLMLC STLMLC [id number] [facility] 2022-11-27 08:05:24 2022-11-27 08:05:24 Outpatient SFA SFA [id number] Tim Lambert 2022-11-18 00:00:00 2022-11-18 00:00:00 (TEL) STLMLC STLMLC [id number] [facility] 2022-11-14 00:00:00 2022-11-14 00:00:00 OFFICE VISIT ESTAB PT LEVEL 4 STLMLC STLMLC [id number] [facility] 2022-11-14 00:00:00 2022-11-14 00:00:00 SUB ANNUAL [facility] VISIT STLMLC STLMLC [id number] [facility] 2022-11-14 00:00:00 2022-11-14 00:00:00 OFFICE VISIT ESTAB PT LEVEL 4 STLMLC STLMLC [id number] [facility] 2022-11-05 00:00:00 2022-11-05 00:00:00 (TEL) STLMLC STLMLC [id number] [facility] 2022-10-30 17:27:51 2022-10-30 17:27:51 Outpatient SFA [facility] [id number] Tim Lambert 2022-10-24 00:00:00 2022-10-24 00:00:00 (TEL) STLMLC STLMLC [id number] [facility] 2022-10-20 04:41:00 2022-10-20 06:40:00 Emergency X [facility] ERT [id number] [facility] 2022-10-20 04:41:00 2022-10-20 06:40:00 Emergency Christen Oband[facility] 1.2.840.114 350.1.13.10 4.2.7.2.686 [id number] [facility] 2022-10-16 00:00:00 2022-10-16 00:00:00 (TEL) STLMLC STLMLC [id number] [facility] 2022-10-03 15:56:50 2022-10-03 15:56:50 Outpatient [facility] [id number] Tim Lambert 2022-10-03 00:00:00 2022-10-03 00:00:00 (TEL) STLMLC STLMLC [id number] [facility] 2022-09-04 08:12:48 2022-09-04 08:12:48 Outpatient SFA [facility] [id number] Tim Lambert 2022-09-03 14:40:55 2022-09-03 14:40:55 Outpatient SFA [facility] [id number] Tim Lambert 2022-08-30 07:45:00 2022-08-30 15:39:00 Emergency X [facility] ERT [id number] [facility] 2022-08-30 07:45:00 2022-08-30 15:39:00 Emergency Gertrude Chinchilla [facility] 1..840.114 350.1.13.10 4.2.7.2.686 [id number] [facility] 2022-08-12 00:00:00 2022-08-12 00:00:00 Outpatient [place] _[place] [facility] [id number] [facility] 2022-08-12 00:00:00 2022-08-12 00:00:00 Out[place] [id number] [facility] 2022-08-12 00:00:00 2022-08-12 00:00:00 Out[place] [id number] [facility] 2022-08-12 00:00:00 2022-08-12 00:00:00 Outpatient [place] _B [facility] [id number] [facility] 2022-07-31 00:00:00 2022-07-31 00:00:00 OFFICE VISIT ESTAB PT LEVEL 4 STLMLC STLMLC [id number] [facility] 2022-06-21 00:00:00 2022-06-21 00:00:00 Outpatient Cobb_T [facility] [id number] [facility] 2022-06-20 00:00:00 2022-06-20 00:00:00 [place] [id number] [facility] 2022-06-06 00:00:00 2022-06-06 00:00:00 (TEL) STLMLC STLMLC [id number] [facility] 2022-05-27 00:00:00 2022-05-27 00:00:00 Transition of Care Simón Rollins 1..840.114 350.1.13.10 4.2.7.2.686 [id number] [facility] 2022-05-23 07:39:00 2022-05-24 17:43:00 Outpatient Kt CALLIE CUELLAR [facility] [id number] [facility] 2022-05-23 07:39:00 2022-05-24 17:43:00 Emergency Gertrude Chinchilla David [facility] 1.2.840.114 350.1.13.10 4.2.7.2.686 [id number] [facility] 2022-05-09 00:00:00 2022-05-09 00:00:00 Outpatient Cobb_T [facility] [id number] [facility] 2022-04-18 00:00:00 2022-04-18 00:00:00 OFFICE VISIT ESTAB PT LEVEL 4 STLMLC STLMLC [id number] [facility] 2022-04-18 00:00:00 2022-04-18 00:00:00 (TEL) STLMLC STLMLC [id number] [facility] 2022-04-12 03:30:00 2022-04-12 03:30:00 Outpatient Deshazo_T [facility] [id number] [facility] 2022-04-10 04:58:00 2022-04-10 04:58:00 Outpatient Deshazo_T DM[facility] [id number] [facility] 2022-04-04 00:00:00 2022-04-04 00:00:00 (TEL) STLMLC STLMLC [id number] [facility] 2022-04-04 00:00:00 2022-04-04 00:00:00 (EST. VIDEO) EST VIRTUAL VIDEO VISIT STLMLC STLMLC [id number] [facility] 2022-03-26 00:00:00 2022-03-26 00:00:00 (TEL) STLMLC STLMLC [id number] [facility] 2022-02-14 00:00:00 2022-02-14 00:00:00 OFFICE VISIT ESTAB PT LEVEL 5 STLMLC STLMLC [id number] [facility] 2022-01-22 00:00:00 2022-01-22 00:00:00 (TEL) STLMLC STLMLC [id number] [facility] 2022-01-17 00:00:00 2022-01-17 00:00:00 OFFICE VISIT ESTAB PT LEVEL 4 STLMLC STLMLC [id number] [facility] 2021-11-12 00:00:00 2021-11-12 00:00:00 Orders Only Doctor Unassigned, [place] [facility] 1.2.840.114 350.1.13.10 4.2.7.2.686 [id number] [facility] 2021-10-16 00:00:00 2021-10-16 00:00:00 SUB ANNUAL [facility] VISIT STLMLC STLC [id number] [facility] 2021-10-16 00:00:00 2021-10-16 00:00:00 OFFICE VISIT ESTAB PT LEVEL 4 STLMLC STLC [id number] [facility] 2021-10-09 14:20:00 2021-10-09 14:20:00 Outpatient NEELA FANG HOWARD [facility] [id number] [facility] 2021-10-09 00:00:00 2021-10-09 00:00:00 (TEL) STLMLC STLMLC [id number] [facility] 2021-10-08 00:00:00 2021-10-08 00:00:00 (HOSP F/U) Hospital Follow Up STLMLC STLMLC [id number] [facility] 2021-10-05 00:00:00 2021-10-05 00:00:00 (TEL) STLMLC STLMLC [id number] [facility] 2021-10-02 00:00:00 2021-10-02 00:00:00 Transition of Care Simón Rollins 1.2.840.114 350.1.13.10 4.2.7.2.686 [id number] [facility] 2021-10-01 00:00:00 2021-10-01 00:00:00 (TEL) STLMLC STLMLC [id number] [facility] 2021-09-27 17:38:00 2021-09-30 15:22:00 Outpatient X VIKASH GRIMALDO [facility] [id number] [facility] 2021-09-27 17:38:00 2021-09-30 15:22:00 [facility] [id number] [facility] 2021-09-27 17:38:00 2021-09-30 15:22:00 [facility] 1.2.840.114 350.1.13.10 4.2.7.2.686 [id number] [facility] 2021-09-19 01:00:00 2021-09-19 01:00:00 [place] [id number] [facility] 2021-08-10 10:31:00 2021-08-10 10:31:00 Outpatient OWENS_T DMG DMG [id number] [facility] 2021-08-07 02:14:00 2021-08-07 02:14:00 [place] [id number] [facility] 2021-07-17 00:00:00 2021-07-17 00:00:00 (TEL) STLMLC STLMLC [id number] [facility] 2021-07-11 00:00:00 2021-07-11 00:00:00 OFFICE VISIT ESTAB PT LEVEL 4 STLMLC STLMLC [id number] [facility] 2021-07-10 00:00:00 2021-07-10 00:00:00 (TEL) STLMLC STLMLC [id number] [facility] 2021-07-04 00:00:00 2021-07-04 00:00:00 (TEL) STLMLC STLMLC [id number] [facility] 2021-06-26 00:00:00 2021-06-26 00:00:00 (TEL) STLMLC STLMLC [id number] [facility] 2021-05-29 00:00:00 2021-05-29 00:00:00 Outpatient STLMLC STLMLC [id number] [facility] 2021-05-22 05:13:00 2021-05-22 05:13:00 Outpatient CURRY_S DMG DMG [id number] [facility] 2021-05-22 00:00:00 2021-05-22 00:00:00 Outpatient STLMLC STLMLC [id number] [facility] 2021-05-04 00:00:00 2021-05-04 00:00:00 Outpatient STLMLC STLMLC [id number] [facility] 2021-04-30 00:00:00 2021-04-30 00:00:00 Outpatient STLMLC STLMLC [id number] [facility] 2021-04-30 00:00:00 2021-04-30 00:00:00 Outpatient STLMLC STLMLC [id number] [facility] 2021-04-06 00:00:00 2021-04-06 00:00:00 Outpatient STLMLC STLMLC [id number] [facility] 2021-01-29 06:02:00 2021-01-29 06:02:00 Outpatient DMG DMG [id number] [facility] 2021-01-18 12:00:00 2021-01-18 12:00:00 Outpatient DMG DMG [id number] [facility] 2020-08-14 14:12:00 2020-08-14 15:54:00 Emergency Love Pickard [facility] 1.2.840.114 350.1.13.10 4.2.7.2.686 [id number] 2020-08-14 14:12:00 2020-08-14 15:54:00 Emergency Love Pickard [facility] 1.2.840.114 350.1.13.10 4.2.7.2.686 [id number] [facility] Results Test Description Test Time Test Comments Results Result Co mments Source VITAMIN D, 25 [id number] 00:00:00* Test Item Value Reference Range Interpretation Comme nts VITAMIN D, 25 OH (test code = 1988-) 40 NG/ML SEE BELOW NG/ML LIPID PANEL WITH REFLEX DIRECT [id number] 00:00:00* Test Item Value Reference Range Interpretation Comme nts CALC LDL CHOL (test code = 54244-2) 126 MG/DL See_Comment H [Automated [employer]] The system which generated this result transmitted reference range: <100 MG/DL. The reference range was not used to interpret this result as normal/abnormal. CHOLESTEROL (test code = 2093-3) 210 MG/DL See_Comment H [Automated [employer]] The system which generated this result transmitted reference range: <200 MG/DL. The reference range was not used to interpret this result as normal/abnormal. HDL CHOLESTEROL (test code = 2085-9) 57 MG/DL See_Comment [Automated [employer]] The system which generated this result transmitted reference range: >39 MG/DL. The reference range was not used to interpret this result as normal/abnormal. RISK RATIO LDL/HDL (test code = 90360-3) 2.21 RATIO See_Comment [Automated message] The system which generated this result transmitted reference range: <3.55 RATIO. The reference range was not used to interpret this result as normal/abnormal. TRIGLYCERIDES (test code = 2571-8) 154 MG/DL See_Comment H [Automated [employer]] The system which generated this result transmitted reference range: <150 MG/DL. The reference range was not used to interpret this result as normal/abnormal. COMPREHENSIVE METABOLIC [id number] 00:00:00* Test Item Value Reference Range Interpretation [...] result as normal/abnormal. CALCIUM (test code = 80194-9) 9.5 MG/DL See_Comment [Automated messa ge] The [...] as normal/abnormal. CALC GLOBULIN (test code = 32984-7) 2.7 G/DL See_Comment [Automated messa ge] The system which generated this result transmitted reference range: 1.9-3.7 G/DL. The reference range was not used to interpret this result as normal/abnormal. CARBON DIOXIDE (test code = 1963-8) 21 MEQ/L See_Comment [Automated messa ge] The [...] normal/abnormal. eGFR (2020 CKD-EPI) (test code = 91083-8) 79 ML/MIN/1.73 See_Comment [Automated messa ge] The [...] interpret this result as normal/abnormal. CBC WITH [id number] 11:42:32* Test Item Value Reference Range Interpretation [...] 33.7 g/dL 31.2-35.0 RDW-SD (test code = 66167-1) 45.5 fL 38.5-51.6 RDW-CV (test code = 788-0) 13.8 % 12.1-15.4 PLT (test code = 777-3) See_Comment [Automated messa ge] The system which generated this result transmitted reference range: 150 - 328 10*3/?L. The reference range was not used to interpret this result as normal/abnormal. MPV (test code = 60399-7) 8.7 fL 9.8-13.0 L NRBC/100 WBC (test code = 4451804777) See_Comment [Automated me ssage] The system which generated this result transmitted reference range: 0.0 - 10.0 /100 WBCs. The reference range was not used to interpret this result as normal/abnormal. NRBC x10^3 (test code = 1101166356) See_Comment [Automated messa ge] The system which generated this result transmitted reference range: 10*3/?L. The reference range was not used to interpret this result as normal/abnormal. GRAN MAT (NEUT) % (test code = 770-8) 92.6 % IMM GRAN % (test code = 8275159336) 0.90 % LYMPH % (test code = 736-9) 5.3 % MONO % (test code = 5905-5) 0.6 % EOS % (test code = 713-8) 0.3 % BASO % (test code = 706-2) 0.3 % GRAN MAT x10^3(ANC) (test code = 3591464019) 9.61 10*3/uL 1.99-6.95 H IMM GRAN x10^3 (test code = 6394871960) 0.09 10*3/uL 0.00-0.06 H LYMPH x10^3 (test code = 731-0) 0.55 10*3/uL 1.09-3.23 L MONO x10^3 (test code = 742-7) 0.06 10*3/uL 0.36-1.02 L EOS x10^3 (test code = 711-2) 0.03 10*3/uL 0.06-0.53 L BASO x10^3 (test code = 704-7) 0.03 10*3/uL 0.01-0.09 Lab Interpretation (test code = 39141-7) [facility]normal [facility] 11:31:09 SALICYLATE<10mg/L10/20/2022 5:31 AM [facility] Range: ? Analgesic and Antipyretic Use ? 20- 100 mg/L ? ? Anti-Inflammatory Use ? 100-250 mg/L Toxic Range: ? Greater than 300 mg/LUnSt. Luke[facility]lands HospitalETHANOL2023-01-22 11:31:04ALCOHOL<10mg/dL10/20/2022 5:31 AM [facility]<10 Lvdwvshi19-850 Toxic>100 Depression of EVENT REPRESENTATIVE>400 Fatalities ReportedUnSt. Luke's Health – [facility] Woodlands HospitalACETAMINOPHEN2023-01-22 11:30:59* Test Item Value Reference Range Interpretation Comme nts ACETAMINOP (test code = 2791478841) 10.0-30.0 L ISIDORO (test code = ISIDORO) Toxic: Greater porsche n 200 ug/mL @ 4 hour post ingestion or greater than 50 ug/mL @ 12 hour post ingestion Lab Interpretation (test code = 90794-5) Abnormal [facility]. METABOLIC PANEL (58900)2022-10-20 11:26:11* Test Item Value Reference Range Interpretation Comme nts NA (test code = 9204051196) 135 mmol/L 135-145 K (test code = 7315441633) 5.9 mmol/L 3.5-5.0 H CL (test code = 3120594087) 105 mmol/L 98-108 CO2 TOTAL (test code = 2319933609) 21 mmol/L 23-31 L AGAP (test code = 6287983944) 2-16 BUN (test code = 2562935625) 25 mg/dL 7-23 H GLUCOSE (test code = 4347639898) 127 mg/dL 70-110 H CREATININE (test code = 7822142578) 1.66 mg/dL 0.60-1.25 H TOTAL BILI (test code = 9952816735) 1.0 mg/dL 0.1-1.1 CALCIUM (test code = 2595107319) 8.9 mg/dL 8.6-10.6 T PROTEIN (test code = 4193630786) 7.9 g/dL 6.3-8.2 ALBUMIN (test code = 1191287344) 4.6 g/dL 3.5-5.0 ALK PHOS (test code = 6104519038) 134 U/L 34-122 H ALTv (test code = 1742-6) 30 U/L 5-50 AST(SGOT) (test code = 2462488618) 45 U/L 13-40 H eGFR (test code = 8785879889) mL/min/1.73m2 ISIDORO (test code = ISIDORO) Association [...] imaging tests). Lab Interpretation (test code = 35721-1) Abnormal [facility] METABOLIC PANEL (NA, K, CL, CO2, GLUCOSE, BUN, CREATININE, CA)2022-08-30 18:07:32* Test Item Value Reference Range Interpretation Comme nts NA (test code = 4922100635) 143 mmol/L 135-145 K (test code = 7398280314) 4.1 mmol/L 3.5-5.0 CL (test code = 0780115100) 115 mmol/L 98-108 H CO2 TOTAL (test code = 3073802133) 19 mmol/L 23-31 L AGAP (test code = 0679668166) 2-16 BUN (test code = 5364036788) 33 mg/dL 7-23 H GLUCOSE (test code = 8521008354) 66 mg/dL 70-110 L CREATININE (test code = 5184779799) 1.99 mg/dL 0.60-1.25 H CALCIUM (test code = 5780874816) 8.3 mg/dL 8.6-10.6 L eGFR (test code = 4094734895) mL/min/1.73m2 ISIDORO (test code = ISIDORO) Association [...] imaging tests). Lab Interpretation (test code = 62374-4) Abnormal [facility] TempleTRMINAQUYENN [id number] 15:44:49* Test Item Value Reference Range Interpretation Comments TROPONIN I (test code = 5595779499) 0.004 ng/mL See_Comment [Automated message] The system [...] of biotin. Lab Interpretation (test code = 26197-7) Normal [facility]2022-12-02 15:27:10 ALCOHOL<10mg/dL08/30/2022 9:27 AM [facility]<10 Fzevrbje64-077 Toxic>100 Depression of EVENT REPRESENTATIVE>400 Fatalities ReportedBaylor Scott & [facility] – TempleCOM. METABOLIC PANEL (40458)2022-08-30 15:24:23* Test Item Value Reference Range Interpretation Comme nts NA (test code = 5987352161) 144 mmol/L 135-145 K (test code = 9991453027) 3.9 mmol/L 3.5-5.0 CL (test code = 8288419540) 109 mmol/L 98-108 H CO2 TOTAL (test code = 2045876538) 22 mmol/L 23-31 L AGAP (test code = 6153651911) 2-16 BUN (test code = 6939270351) 37 mg/dL 7-23 H GLUCOSE (test code = 7738448781) 86 mg/dL 70-110 CREATININE (test code = 9178495498) 2.47 mg/dL 0.60-1.25 H TOTAL BILI (test code = 6134236415) 0.8 mg/dL 0.1-1.1 CALCIUM (test code = 9822804470) 9.3 mg/dL 8.6-10.6 T PROTEIN (test code = 0271815254) 7.0 g/dL 6.3-8.2 ALBUMIN (test code = 1597171264) 4.4 g/dL 3.5-5.0 ALK PHOS (test code = 2083640723) 119 U/L 34-122 ALTv (test code = 1742-6) 22 U/L 5-50 AST(SGOT) (test code = 2770226718) 38 U/L 13-40 eGFR (test code = 3404170926) mL/min/1.73m2 ISIDORO (test code = ISIDORO) Association [...] imaging tests). Lab Interpretation (test code = 88791-7) Abnormal [facility] TempleMAGNESIUM2022-12-02 15:24:23* Test Item Value Reference Range Interpretation Comme nts MAGNESIUM (test code = 1844419348) 2.1 mg/dL 1.7-2.4 Lab Interpretation (test cod e = 17072-3) Normal [facility] WITH [id number] 14:36:33* Test Item Value Reference Range Interpretation Comme nts WBC (test code = 6690-2) See_Comment [Automated [employer]] The system which generated this result transmitted reference range: 4.20 - 10.70 10*3/?L. The reference range was not used to interpret this result as normal/abnormal. RBC (test code = 789-8) See_Comment [Automated [employer]] The system which generated this result transmitted [...] 32.7 g/dL 31.2-35.0 RDW-SD (test code = 14180-6) 44.7 fL 38.5-51.6 RDW-CV (test code = 788-0) 13.2 % 12.1-15.4 PLT (test code = 777-3) See_Comment [Automated messa ge] The system which generated this result transmitted reference range: 150 - 328 10*3/?L. The reference range was not used to interpret this result as normal/abnormal. MPV (test code = 80892-3) 9.7 fL 9.8-13.0 L NRBC/100 WBC (test code = 1474204523) See_Comment [Automated [employer] ssage] The system which generated this result transmitted reference range: 0.0 - 10.0 /100 WBCs. The reference range was not used to interpret this result as normal/abnormal. NRBC x10^3 (test code = 2826047476) See_Comment [Automated messa ge] The system which generated this result transmitted reference range: 10*3/?L. The reference range was not used to interpret this result as normal/abnormal. GRAN MAT (NEUT) % (test code = 770-8) 62.1 % IMM GRAN % (test code = 3169860259) 0.50 % LYMPH % (test code = 736-9) 22.6 % MONO % (test code = 5905-5) 9.1 % EOS % (test code = 713-8) 5.2 % BASO % (test code = 706-2) 0.5 % GRAN MAT x10^3(ANC) (test code = 6905203020) 5.38 10*3/uL 1.99-6.95 IMM GRAN x10^3 (test code = 3797489726) 0.04 10*3/uL 0.00-0.06 LYMPH x10^3 (test code = 731-0) 1.96 10*3/uL 1.09-3.23 MONO x10^3 (test code = 742-7) 0.79 10*3/uL 0.36-1.02 EOS x10^3 (test code = 711-2) 0.45 10*3/uL 0.06-0.53 BASO x10^3 (test code = 704-7) 0.04 10*3/uL 0.01-0.09 Lab Interpretation (test code = 88991-3) [id number]:17:19* Test Item Value Reference Range Interpretation Comments TROPONIN I (test code = 0163103634) 0.007 ng/mL See_Comment [Automated message] The system [...] of biotin. Lab Interpretation (test code = 09953-1) [facility] 10:05:38* Test Item Value Reference Range Interpretation Comme nts MAGNESIUM (test code = 4456477750) 2.1 mg/dL 1.7-2.4 Lab Interpretation (test cod e = 01490-1) [facility] (NA, K, CL, CO2, GLUCOSE, BUN, CREATININE, CA)2022-05-24 10:05:18* Test Item Value Reference Range Interpretation Comme nts NA (test code = 1018103345) 136 mmol/L 135-145 K (test code = 1705041745) 4.9 mmol/L 3.5-5 CL (test code = 8421434190) 109 mmol/L 98-108 H CO2 TOTAL (test code = 9572075273) 21 mmol/L 23-31 L AGAP (test code = 4584226644) 2-16 BUN (test code = 5835204106) 27 mg/dL 7-23 H GLUCOSE (test code = 8156555063) 89 mg/dL 70-110 CREATININE (test code = 4027407702) 1.62 mg/dL 0.6-1.25 H CALCIUM (test code = 8197903683) 8.5 mg/dL 8.6-10.6 L eGFR (test code = 7546683579) mL/min/1.73m2 ISIDORO (test code = ISIDORO) Association [...] imaging tests). Lab Interpretation (test code = 56139-0) Abnormal [facility] WITH [id number] 09:31:37* Test Item Value Reference Range Interpretation Comme nts WBC (test code = 6690-2) See_Comment [Automated messa ge] The system which generated this result transmitted reference range: 4.20 - 10.70 10*3/?L. The reference range was not used to interpret this result as normal/abnormal. RBC (test code = 789-8) See_Comment L [Automated messa ge] The system which generated [...] 33.3 g/dL 31.2-35 RDW-SD (test code = 62747-7) 43.6 fL 38.5-51.6 RDW-CV (test code = 788-0) 13.1 % 12.1-15.4 PLT (test code = 777-3) See_Comment [Automated messa ge] The system which generated this result transmitted reference range: 150 - 328 10*3/?L. The reference range was not used to interpret this result as normal/abnormal. MPV (test code = 91957-0) 9.3 fL 9.8-13 L NRBC/100 WBC (test code = 5511137221) See_Comment [Automated me ssage] The system which generated this result transmitted reference range: 0.0 - 10.0 /100 WBCs. The reference range was not used to interpret this result as normal/abnormal. NRBC x10^3 (test code = 9781212016) See_Comment [Automated messa ge] The system which generated this result transmitted reference range: 10*3/?L. The reference range was not used to interpret this result as normal/abnormal. GRAN MAT (NEUT) % (test code = 770-8) 56.1 % IMM GRAN % (test code = 3162260577) 0.40 % LYMPH % (test code = 736-9) 27.1 % MONO % (test code = 5905-5) 9.9 % EOS % (test code = 713-8) 5.8 % BASO % (test code = 706-2) 0.7 % GRAN MAT x10^3(ANC) (test code = 0722830499) 4.53 10*3/uL 1.99-6.95 IMM GRAN x10^3 (test code = 0418862412) 0.03 10*3/uL 0-0.06 LYMPH x10^3 (test code = 731-0) 2.19 10*3/uL 1.09-3.23 MONO x10^3 (test code = 742-7) 0.80 10*3/uL 0.36-1.02 EOS x10^3 (test code = 711-2) 0.47 10*3/uL 0.06-0.53 BASO x10^3 (test code = 704-7) 0.06 10*3/uL 0.01-0.09 Lab Interpretation (test code = 99439-1) Abnormal [facility] [id number] 04:35:45* Test Item Value Reference Range Interpretation Comments TROPONIN I (test code = 6443668945) 0.004 ng/mL See_Comment [Automated message] The system [...] of biotin. Lab Interpretation (test code = 60370-7) [facility] 01:26:40* Test Item Value Reference Range Interpretation Comme nts Height (test code = 0409217010) in Weight (test code = 2614396697) lbs Systolic BP (test code = 7686736449) mmHg Diastolic BP (test code = 8760808266) mmHg Heart Rate (test code = 1443351983) bpm BSA (test code = 2127612612) 2.09 m2 Ao root annulus (test code = 8615102331) 3.2 cm Ao root diam (test code = 8719102957) 3.20 cm Aortic root (test code = 9545240808) 3.2 cm LVOT diameter (test code = 6191902963) 2.14 cm LVIDD (test code = 3272556643) 5.00 cm IVS (test code = 8869764656) 1.31 cm Interventricular Septum Diastolic Thickness by 2D (test code = 8344054) 1.31 cm LVPWD (test code = 1445008944) 1.32 cm PW (test code = 3148855457) 1.32 cm 0.6-1.1 EF(Teich) (test code = 0568372230) 61.30 % LVIDS (test code = 3266730911) 3.30 cm FS (test code = 3409489767) 33 % EF - 2D (test code = 88450210) 61.30 % LA size (test code = 8513348292) 3.6 cm TR Peak Mayank (test code = 3605075873) 261.9 cm/s Triscuspid Valve Regurgitation Peak Gradient (test code = 8120014063) mmHg LAV(MOD-sp4) (test code = 4096567646) 59.10 mL E wave decelartion time (test code = 4570516812) 0.23 s MV Peak E Mayank (test code = 2344178523) 73.6 cm/s MV stenosis pressure 1/2 time (test code = 9523278795) 70.2 ms MV Peak A Mayank (test code = 0278264119) 55.9 cm/s E/A ratio (test code = 9323527364) ratio MV Prop V (test code = 0484593347) 58.20 cm/s MV E/e' septal (test code = 5498271353) 12.2 cm/s Tapse (test code = 6677693054) 2.9 cm LVOT stroke volume (test code = 8465069179) 103.80 cm3 LVOT peak mayank (test code = 9363574451) 147.2 cm/s LVOT mn grad (test code = 3946325918) mmHg AV LVOT peak gradient (test code = 1397902066) mmHg LVOT peak VTI (test code = 6616214791) 28.7 cm LV V1 mean (test code = 3967078597) 93.00 cm/s Aortic valve mean velocity (test code = 7303478929) 119.4 cm/s Ao peak mayank (test code = 2661003628) 165.6 cm/s Ao VTI (test code = 4246703885) 35.2 cm AV area by cont VTI (test code = 9160228547) 2.9 cm2 AV area peak mayank (test code = 7306174341) 3.2 cm2 Ao max PG (test code = 9358072022) 11.00 mm[Hg] AV peak gradient (test code = 6896764073) mmHg AV valve area (test code = 9045862599) 2.90 cm2 AV mean gradient (test code = 5533872410) mmHg Radiology Study observation (narrative) (test code = 28923-8) ISIDORO (test code = ISIDORO) Formatting of [...] 2D, color flow Doppler and spectral Doppler. [facility] [id number] 14:25:35* Test Item Value Reference Range Interpretation Comments TROPONIN I (test code = 1060691135) 0.009 ng/mL See_Comment [Automated message] The system [...] of biotin. Lab Interpretation (test code = 95527-3) [facility]OLIC [facility] (19603)2022-05-23 14:14:13* Test Item Value Reference Range Interpretation Comme nts NA (test code = 1972293913) 143 mmol/L 135-145 K (test code = 2454702482) 5.0 mmol/L 3.5-5 CL (test code = 1235279111) 111 mmol/L 98-108 H CO2 TOTAL (test code = 2663587083) 20 mmol/L 23-31 L AGAP (test code = 1121202447) 2-16 BUN (test code = 9656665748) 30 mg/dL 7-23 H GLUCOSE (test code = 2319194657) 85 mg/dL 70-110 CREATININE (test code = 8003673653) 2.07 mg/dL 0.6-1.25 H TOTAL BILI (test code = 4917488292) 0.6 mg/dL 0.1-1.1 CALCIUM (test code = 0363126856) 9.0 mg/dL 8.6-10.6 T PROTEIN (test code = 0844984262) 7.2 g/dL 6.3-8.2 ALBUMIN (test code = 2499919681) 4.4 g/dL 3.5-5 ALK PHOS (test code = 0523721452) 121 U/L 34-122 ALTv (test code = 1742-6) 23 U/L 5-50 AST(SGOT) (test code = 4983763023) 29 U/L 13-40 eGFR (test code = 1822127804) mL/min/1.73m2 ISIDORO (test code = ISIDORO) Association [...] imaging tests). Lab Interpretation (test code = 12657-1) Abnormal [facility] WITH [id number] 14:11:10* Test Item Value Reference Range Interpretation Comme nts WBC (test code = 6690-2) See_Comment H [Automated messa ge] The system [...] 33.5 g/dL 31.2-35 RDW-SD (test code = 92382-6) 42.9 fL 38.5-51.6 RDW-CV (test code = 788-0) 12.9 % 12.1-15.4 PLT (test code = 777-3) See_Comment H [Automated messa ge] The system which generated this result transmitted reference range: 150 - 328 10*3/?L. The reference range was not used to interpret this result as normal/abnormal. MPV (test code = 93416-0) 9.0 fL 9.8-13 L NRBC/100 WBC (test code = 4073531279) See_Comment [Automated [employer] ssage] The system which generated this result transmitted reference range: 0.0 - 10.0 /100 WBCs. The reference range was not used to interpret this result as normal/abnormal. NRBC x10^3 (test code = 1054376669) See_Comment [Automated messa ge] The system which generated this result transmitted reference range: 10*3/?L. The reference range was not used to interpret this result as normal/abnormal. GRAN MAT (NEUT) % (test code = 770-8) 71.9 % IMM GRAN % (test code = 9223209078) 0.40 % LYMPH % (test code = 736-9) 16.1 % MONO % (test code = 5905-5) 8.4 % EOS % (test code = 713-8) 2.5 % BASO % (test code = 706-2) 0.7 % GRAN MAT x10^3(ANC) (test code = 7738682036) 8.20 10*3/uL 1.99-6.95 H IMM GRAN x10^3 (test code = 6475496025) 0.05 10*3/uL 0-0.06 LYMPH x10^3 (test code = 731-0) 1.84 10*3/uL 1.09-3.23 MONO x10^3 (test code = 742-7) 0.96 10*3/uL 0.36-1.02 EOS x10^3 (test code = 711-2) 0.29 10*3/uL 0.06-0.53 BASO x10^3 (test code = 704-7) 0.08 10*3/uL 0.01-0.09 Lab Interpretation (test code = 68014-1) Abnormal [facility]"
[2023-10-31 19:12] LABS: Absolute Lymphocytes (CBC) 2.1 K/uL (0.7-4.9); Hematocrit 37.6 % (39.6-49.0); Lymphocytes % 26.1 % (15.3-44.8); MCV 91.5 fL (80-100); MPV 6.9 fL (7.6-11.3); Platelets 317 thou/uL (152-406); RBC Red Blood Cell Count 4.11 M/uL (4.33-5.43)
[2023-10-31 19:25] LABS: Potassium 4.2 mEq/L (3.5-5.1)
[2023-10-31 19:52] LABS: Protime INR 0.93
[2023-10-31 20:09] LABS: ALT/SGPT 25 U/L (16-61); AST/SGOT 19 U/L (15-37); Alkaline Phosphatase 130 U/L (45-117); Bilirubin Direct < 0.1 mg/dL (0-0.2); Bilirubin Indirect, Calculated ND mg/dL (0.2-0.8); Bilirubin Total 0.2 mg/dL (0.2-1.0); Protein, Total 6.4 g/dL (6.4-8.2)
--- NOTE | 2023-10-31 20:12 | RAD REPORT ---
EXAM DESCRIPTION: CT - Head Brain Wo Cont - 10/31/2023 7:58 pm CLINICAL HISTORY: Headache COMPARISON: 2022 TECHNIQUE: Computed axial tomography of the head was obtained. IV contrast was not requested. All CT scans are performed using dose optimization technique as appropriate and may include automated exposure control or mA/KV adjustment according to patient size. FINDINGS: An intracranial bleed is not seen The ventricles are normal in caliber No extra-axial fluid collection is noted. 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 Fluid within the sinuses/ mastoids is not seen. IMPRESSION: No acute intracranial abnormality is seen If patient's symptoms persist MRI of the brain would be recommended
[2023-10-31 21:46] LABS: Barbiturates NEGATIVE (NEGATIVE); Benzodiazepines NEGATIVE (NEGATIVE); Cocaine POSITIVE (NEGATIVE); METHAMPHETAM NEGATIVE (NEGATIVE); Methadone NEGATIVE (NEGATIVE); Opiates NEGATIVE (NEGATIVE); Phencyclidine NEGATIVE (NEGATIVE); THC Cannibis NEGATIVE (NEGATIVE)
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
[2023-11-01 03:11] VITALS: TEMP 97.7
[2023-11-01 03:28] VITALS: BP 122/64; O2SAT 100
--- NOTE | 2023-11-03 15:08 | EKG ---
Test Date: 2023-10-31 Test Time: 19:31:37 Shirt Line Operator: LING MEASUREMENT RESULTS: Intervals: Rate: 57 WV: 154 QRSD: 84 QT: 442 QTc: 430 Reading: P: 70 WV: 154 QRS: 52 T: 42 INTERPRETIVE STATEMENTS: Sinus bradycardia Otherwise normal ECG Compared to ECG 07/03/2023 12:08:24 No significant changes Electronically Signed On 11-03-23 15:01:50 LABOR RELATIONS WORKER by Mino Tsai
== END ==
LOC: ER 18:09
DX: R51.9 Headache, unspecified (principal); R44.2 Other hallucinations; F14.10 Cocaine abuse, uncomplicated; N17.9 Acute kidney failure, unspecified; I10 Essential (primary) hypertension; I25.2 Old myocardial infarction; Z88.0 Allergy status to penicillin; Z88.5 Allergy status to narcotic agent; Z88.8 Allergy status to other drugs, medicaments and biological substances; Z91.030 Bee allergy status; Z91.038 Other insect allergy status
CPT/HCPCS: 85025; 80048; 36415; 85610; 80076; 85730; 80307; 70450; 80143; 80179; 82077; J2765; J1100; J7040; 93005

== ENCOUNTER 2023-12-13 16:12 | Inpatient (IN) | payer OTHER ==
--- OUTSIDE RECORDS SUMMARY | 2023-12-13 16:25 | XMS REPORT | Continuity of Care Document ---
Author Name Unknown Address [address] [facility] [place] [address] [facility] Address [address] [facility] [address] [place] [address] Care Team Providers Care Horse Wrangler Name Role Phone Cody Mahad M Primary Care Physician [phone] Rosana Red Attending Clinician Unavail able Mahad Ross Lexx Attending Clinician Unavailable [place]_B Attending Clinician Unavailable ZANE LIU Attending Clinician Unavailable ZANE LIU Attending Clinician Unavailable CHRISTEN OBANDO Attending Clinician Unavailable Christen Obando DO Attending Clinician [phone] GERTRUDE CHINCHILLA Attending Clinician Unavailab Gertrude Contreras DO Attending Clinician [phone] Cobb_T Attending Clinician Unavailable Simón Rollins RN Attending Clinician Unavail able CALILE CUELLAR Attending Clinician Unavailable Callie Cuellar DO Attending Clinician [phone] Deshazo_T Attending Clinician Unavailable Doctor Unassigned, [place] Attending Clinician U navailable NEELA ALBARADO Attending Clinician Unavail able NEELA ALBARADO Attending Clinician Unavail able VIKASH GRIMALDO Attending Clinician Unavailable Silva Szymanski MD Attending Clinician Vikash Grimaldo MD Attending Clinician [phone] OW_Will Attending Clinician Unavailable CURRTanisha_S Attending Clinician Unavailable Love Campbell Attending Clinician [phone] Lindadaelma_B Admitting Clinician Unavailable CHRISTEN OBANDO Admitting Clinician Unavailable GERTRUDE CHINCHILLA Admitting Clinician Unavailab le Cobb_T Admitting Clinician Unavailable CALLIE CUELLAR Admitting Clinician Unavailable Callie Cuellar DO Admitting Clinician [phone] Deshazo_T Admitting Clinician Unavailable VIKASH GRIMALDO Admitting Clinician Unavailable Vikash Grimaldo MD Admitting Clinician [phone] MARIAH_Will Admitting Clinician Unavailable PARAG_Yajaira Admitting Clinician Unavailable Payers Payer Name Policy Type Policy Number Effective Date Expirati on Date Source [employer] Total [facility] 111 [id number] 2023 00:00:00 [facility] (MEDICARE REPLACEMENT HMO) [id number] 2021 00:00:00 [employer] ADV[employer]AGE PLAN [id number] 2020 00:00:00 [place] [id number] 2021 00:00:00 [place] [id number] 2021 00:00:00 [place] [id number] 2021 00:00:00 [place] [id number] 2021 00:00:00 [facility] Problems Condition Name Condition Details Condition Category Status Onset Date Resolution Date Last Treatment Date Treating Clinician Comments Source Chest pain, unspecifie d type Chest pain, unspecifie d type Disease Active 05-23 00:00: 00 [facility] Other hyperlipid emia Other hyperlipid emia Disease Active 05-23 00:00: 00 [facility] Drug abuse Drug abuse Disease Active 05-23 00:00: 00 [facility] Nonobstruc tive atheroscle rosis of coronary artery Nonobstruc tive atheroscle rosis of coronary artery Disease Active 05-23 00:00: 00 [facility] CAMDEN (acute kidney injury) CAMDEN (acute kidney injury) Disease Active 2020-09 00:00: 00 [facility] Esophageal spasm Esophageal spasm Disease Active 01-26 00:00: 00 [facility] A-fib A-fib Disease Active 01-20 00:00: 00 [facility] Atrial fibrillati on with RVR Atrial fibrillati on with RVR Disease Active 01-19 00:00: 00 [facility] Shortness of breath Shortness of breath Disease Active 01-19 00:00: 00 [facility] NSTEMI (non-ST elevated myocardial infarction ) NSTEMI (non-ST elevated myocardial infarction ) Disease Active 01-19 00:00: 00 [facility] Tobacco abuse Tobacco abuse Disease Active 01-19 00:00: 00 [facility] Family history of early CAD Family history of early CAD Disease Active 01-19 00:00: 00 [facility] Inguinal hernia Inguinal hernia Disease Active 2016-09 00:00: 00 [facility] Status epilepticu s Status epilepticu s Disease Active 01-22 00:00: 00 [facility] Seizure Seizure Disease Active 01-22 00:00: 00 [facility] [id number] COPD, mild Problem Com mon [facility] [id number] Leukocytos is, unspecifie d type Problem [facility] [id number] Developmen shruthi venous anomaly, cerebral Problem [facility] [id number] Diverticul osis large intestine w/o perforatio n or abscess w/bleeding Problem [facility] [id number] Atheroscle rosis of abdominal aorta Problem Common [facility] Cerebral infarction Cerebral infarction , unspecifie d mechanism Problem [facility] [id number] Chronic kidney disease, stage 3b Problem Common [facility] [id number] Osteoarthr itis of lumbar spine, unspecifie d spinal osteoarthr itis complicati on status Problem [facility] [id number] KATHERIN (obstructi ve sleep apnea) Problem Common [facility] [id number] Left lower lobe pulmonary nodule Problem [facility] [id number] Bipolar disorder, mixed Problem [facility] [id number] Other schizophre nicho Problem [facility] [id number] Altered mental status, unspecifie d altered mental status type Problem [facility] Stroke Stroke Problem [facility] [id number] Incontinen ce of feces, unspecifie d fecal incontinen ce type Problem [facility] [id number] Primary insomnia Problem [facility] [id number] TIA (transient ischemic attack) Problem [facility] [id number] Aphasia Problem [facility] [id number] Body mass index [BMI] 31.0-31.9, adult Problem [facility] [id number] Other obesity due to excess calories Problem [facility] [id number] Mixed hyperlipid emia Problem [facility] [id number] Paroxysmal atrial fibrillati on Problem [facility] [id number] Vitamin D deficiency Problem [facility] [id number] Primary osteoarthr itis of left knee Problem [facility] [id number] Other chronic pain Problem [facility] [id number] Arthritis of knee, left Problem [facility] [id number] Essential hypertensi on Problem [facility] [id number] Tobacco use disorder, continuous Problem [facility] Allergic rhinitis Non-season al allergic rhinitis, unspecifie d chronicity , unspecifie d trigger Problem [facility] [id number] Primary osteoarthr itis of left shoulder Problem [facility] [id number] Incomplete tear of left rotator cuff, unspecifie d whether traumatic Problem [facility] [id number] Persistent migraine aura with cerebral infarction , intractabl e, with status migrainosu s Problem [facility] [id number] Narcolepsy due to underlying condition without cataplexy Problem [facility] Primary osteoarthr itis Primary osteoarthr itis involving multiple joints Problem [facility] Allergies, Adverse Reactions, Alerts Allergy Name Allergy Type Status Severity Reaction(s) Onset Date Inactive Date Treating Clinician Comments Source LORAZEPA M DRUG INGREDI Active Anaphylaxis 05-23 00:00: 00 [facility] Lorazepa m Propensi ty to adverse reaction s Active Anaphylaxis 05-23 00:00: 00 Pt has had multiple administr ations of ativan IV as well as EM without any negative reactions . [facility] BENADRYL ALLERGY DECONGES TANT DRUG Active High Swelling 2018-09 00:00: 00 [facility] Benadryl Allergy Deconges tant Propensi ty to adverse reaction s Active Swelling 2018-09 00:00: 00 [facility] DIAZEPAM DRUG INGREDI Active High Anaphylaxis 2016-09 00:00: 00 [facility] Diazepam Propensi ty to adverse reaction s to drug Active Anaphylaxis 2016-09 00:00: 00 Patient states it'll stop his heart within seconds of taking it. [facility] PENICILL INS Drug Class Active Anaphylaxis 05-13 00:00: 00 [facility] Penicill ins Propensi ty to adverse reaction s Active Anaphylaxis 05-13 00:00: 00 [facility] Penicill ins Propensi ty to adverse reaction s Active Anaphylaxis 05-13 00:00: 00 [facility] BEE STING / VENOM DRUG INGREDI Active Anaphylaxis 01-22 00:00: 00 [facility] Bee Sting / Venom Propensi ty to adverse reaction s to drug Active Anaphylaxis 01-22 00:00: 00 [facility] VENOM-WA SP DRUG INGREDI Active Anaphylaxis 01-22 00:00: 00 [facility] Venom-Wa sp Propensi ty to adverse reaction s Active Anaphylaxis 01-22 00:00: 00 [facility] penicill in G penicill in G Active swells throat shut [facility] diazepam diazepam Active Stops heart C ommon [facility] Social History Social Habit Start Date Stop Date Quantity Comments Source History of Tobacco Use Current Smoker [facility] Sex Assigned At [facility] Exposure to SARS-CoV-2 (event) 2023-01-18 00:00:00 2023-01-28 13:20:00 Not sure [facility] Alcohol intake 2022-10-21 00:00:00 2022-10-21 00:00:00 Current non-drinker of alcohol (finding) [facility] Cigarette pack-years 2021-09-27 00:00:00 2021-09-27 00:00:00 [facility] Tobacco use and exposure 2021-09-27 00:00:00 2021-09-27 00:00:00 Smokeless tobacco non-user [facility] Education 2021-09-27 00:00:00 2021-09-27 00:00:00 8 [facility] Cigarettes smoked current (pack per day) - Reported 2021-09-27 00:00:00 2021-09-27 00:00:00 [facility] Smoking Status Start Date Stop Date Source Current Smoker 2023-12-10 00:00:00 [facility] Medications Ordered Medication Name Filled Medication Name Start Date Stop Date Current Medication? Ordering Clinician Indication Dosage Frequency Signature (SIG) Comments Components Source Breo Ellipta 50-25 MCG/INH Breo Ellipta 50-25 MCG/INH - 00:00: 00 No 1{puff} QD Breo Ellipta [...] Ellipta 50-25 MCG/INH Breo Ellipta 50-25 MCG/INH 2023-0 1-19 00:00: 00 No 1{puff} QD Breo [...] 2- 00:00: 00 No [facility] Albuterol Sulfate HFA 108 (90 Base) MCG/ACT Albuterol Sulfate HFA 108 (90 Base) MCG/ACT 2022-09 2- 00:00: 00 No 1{puff_ as_need ed} 6xD Albuterol Sulfate HFA 108 (90 Base) MCG/ACT Montelukast Sodium 10 MG Montelukast Sodium 10 MG 2022-09 2- 00:00: 00 No 1{table t} QD Montelukas t Sodium 10 MG Kenalog (Triamcinol one) Kenalog (Triamcinol one) 2022-09 2- 00:00: 00 No 40mg [facility] Montelukast Sodium 10 MG Montelukast [...] one) 2022-09 2 00:00: 00 No 40mg [facility] Montelukast Sodium 10 MG Montelukast [...] one) 2022-09 2 00:00: 00 No 40mg [facility] Montelukast Sodium 10 MG Montelukast [...] one) 2022-09 2- 00:00: 00 No 40mg [facility] Albuterol Sulfate HFA 108 (90 Base) MCG/ACT Albuterol Sulfate HFA 108 (90 Base) MCG/ACT 2022-09 2- 00:00: 00 No 1{puff_ as_need ed} 6xD Albuterol Sulfate HFA 108 (90 Base) MCG/ACT Kenalog (Triamcinol one) Kenalog (Triamcinol one) 2022-09 00:00: 00 No 40mg [facility] Kenalog (Triamcinol one) Kenalog (Triamcinol one) 2022-09 00:00: 00 No 40mg [facility] Kenalog (Triamcinol one) Kenalog (Triamcinol one) 2022-09 00:00: 00 No 40mg [facility] Kenalog (Triamcinol one) Kenalog (Triamcinol one) 2022-09 00:00: 00 No 40mg [facility] Kenalog (Triamcinol one) Kenalog (Triamcinol one) 2022-09 00:00: 00 No 40mg [facility] Kenalog (Triamcinol one) Kenalog (Triamcinol one) 2022-09 00:00: 00 No 40mg [facility] Kenalog (Triamcinol one) Kenalog (Triamcinol one) 2022-09 00:00: 00 No 40mg [facility] Kenalog (Triamcinol one) Kenalog (Triamcinol one) 2022-09 00:00: 00 No 40mg [facility] Kenalog (Triamcinol one) Kenalog (Triamcinol one) 2022-09 00:00: 00 No 40mg [facility] Kenalog (Triamcinol one) Kenalog (Triamcinol one) 2022-09 00:00: 00 No 40mg [facility] Kenalog (Triamcinol one) Kenalog (Triamcinol one) 2022-09 00:00: 00 No 40mg [facility] Kenalog (Triamcinol one) Kenalog (Triamcinol one) 2022-09 00:00: 00 No 40mg [facility] Kenalog (Triamcinol one) Kenalog (Triamcinol one) 2022-09 00:00: 00 No 40mg [facility] Kenalog (Triamcinol one) Kenalog (Triamcinol one) 2022-09 00:00: 00 No 40mg [facility] Kenalog (Triamcinol one) Kenalog (Triamcinol one) 2022-09 00:00: 00 No 40mg [facility] Kenalog (Triamcinol one) Kenalog (Triamcinol one) 2022-09 00:00: 00 No 40mg [facility] Kenalog (Triamcinol one) Kenalog (Triamcinol one) 2022-09 00:00: 00 No 40mg [facility] Cyanocobala min Cyanocobala min 2022-09 0-10 00:00: 00 No 1000mL [facility] Kenalog (Triamcinol one) Kenalog (Triamcinol one) 2022-09 0-10 00:00: 00 No 40mg [facility] Cyanocobala min Cyanocobala min 2022-09 0-10 00:00: 00 No 1000mL [facility] Kenalog (Triamcinol one) Kenalog (Triamcinol one) 2022-09 0-10 00:00: 00 No 40mg [facility] Cyanocobala min Cyanocobala min 2022-09 0-10 00:00: 00 No 1000mL [facility] Kenalog (Triamcinol one) Kenalog (Triamcinol one) 2022-09 0-10 00:00: 00 No 40mg [facility] Cyanocobala min Cyanocobala min 2022-09 0-10 00:00: 00 No 1000mL [facility] Kenalog (Triamcinol one) Kenalog (Triamcinol one) 2022-09 0-10 00:00: 00 No 40mg [facility] Cyanocobala min Cyanocobala min 2022-09 0-10 00:00: 00 No 1000mL [facility] Kenalog (Triamcinol one) Kenalog (Triamcinol one) 2022-09 0-10 00:00: 00 No 40mg [facility] Cyanocobala min Cyanocobala min 2022-09 0-10 00:00: 00 No 1000mL [facility] Kenalog (Triamcinol one) Kenalog (Triamcinol one) 2022-09 0-10 00:00: 00 No 40mg [facility] Cyanocobala min Cyanocobala min 2022-09 0-10 00:00: 00 No 1000mL [facility] Kenalog (Triamcinol one) Kenalog (Triamcinol one) 2022-09 0-10 00:00: 00 No 40mg [facility] Cyanocobala min Cyanocobala min 2022-09 0-10 00:00: 00 No 1000mL [facility] Kenalog (Triamcinol one) Kenalog (Triamcinol one) 2022-09 0-10 00:00: 00 No 40mg [facility] Cyanocobala min Cyanocobala min 2022-09 0-10 00:00: 00 No 1000mL [facility] Kenalog (Triamcinol one) Kenalog (Triamcinol one) 2022-09 0-10 00:00: 00 No 40mg [facility] Cyanocobala min Cyanocobala min 2022-09 0-10 00:00: 00 No 1000mL [facility] Kenalog (Triamcinol one) Kenalog (Triamcinol one) 2022-09 0-10 00:00: 00 No 40mg [facility] Kenalog (Triamcinol one) Kenalog (Triamcinol one) 0 05-15 00:00: 00 No 40mg [facility] Cyanocobala min Cyanocobala min 0 8- 00:00: 00 No 1000mL [facility] Kenalog (Triamcinol one) Kenalog (Triamcinol one) 0 8- 00:00: 00 No 40mg [facility] Cyanocobala min Cyanocobala min 0 05-15 00:00: 00 No 1000mL [facility] Kenalog (Triamcinol one) Kenalog (Triamcinol one) 0 05-15 00:00: 00 No 40mg [facility] Cyanocobala min Cyanocobala min 0 05-15 00:00: 00 No 1000mL [facility] Kenalog (Triamcinol one) Kenalog (Triamcinol one) 0 05-15 00:00: 00 No 40mg [facility] Cyanocobala min Cyanocobala min 0 05-15 00:00: 00 No 1000mL [facility] Kenalog (Triamcinol one) Kenalog (Triamcinol one) 0 8 00:00: 00 No 40mg [facility] Cyanocobala min Cyanocobala min 0 05-15 00:00: 00 No 1000mL [facility] Kenalog (Triamcinol one) Kenalog (Triamcinol one) 0 8- 00:00: 00 No 40mg [facility] Cyanocobala min Cyanocobala min 0 8- 00:00: 00 No 1000mL [facility] Kenalog (Triamcinol one) Kenalog (Triamcinol one) 0 8- 00:00: 00 No 40mg [facility] Cyanocobala min Cyanocobala min 0 8-17 00:00: 00 No 1000mL [facility] Kenalog (Triamcinol one) Kenalog (Triamcinol one) 0 8-17 00:00: 00 No 40mg [facility] Cyanocobala min Cyanocobala min 0 8-17 00:00: 00 No 1000mL [facility] Kenalog (Triamcinol one) Kenalog (Triamcinol one) 0 8-17 00:00: 00 No 40mg [facility] Cyanocobala min Cyanocobala min 0 8- 00:00: 00 No 1000mL [facility] Kenalog (Triamcinol one) Kenalog (Triamcinol one) 0 8- 00:00: 00 No 40mg [facility] Cyanocobala min Cyanocobala min 0 8- 00:00: 00 No 1000mL [facility] Kenalog (Triamcinol one) Kenalog (Triamcinol one) 0 8- 00:00: 00 No 40mg [facility] Cyanocobala min Cyanocobala min 0 817 00:00: 00 No 1000mL [facility] Kenalog (Triamcinol one) Kenalog (Triamcinol one) 0 8-17 00:00: 00 No 40mg [facility] Cyanocobala min Cyanocobala min 0 8-17 00:00: 00 No 1000mL [facility] Kenalog (Triamcinol one) Kenalog (Triamcinol one) 0 8-17 00:00: 00 No 40mg [facility] Cyanocobala min Cyanocobala min 0 8-17 00:00: 00 No 1000mL [facility] Kenalog (Triamcinol one) Kenalog (Triamcinol one) 0 8-17 00:00: 00 No 40mg [facility] Cyanocobala min Cyanocobala min 0 8-17 00:00: 00 No 1000mL [facility] Kenalog (Triamcinol one) Kenalog (Triamcinol one) 2022-0 8-17 00:00: 00 No 40mg [facility] Cyanocobala min Cyanocobala min 0 8- 00:00: 00 No 1000mL [facility] Kenalog (Triamcinol one) Kenalog (Triamcinol one) 0 8- 00:00: 00 No 40mg [facility] Cyanocobala min Cyanocobala min 0 8-17 00:00: 00 No 1000mL [facility] Kenalog (Triamcinol one) Kenalog (Triamcinol one) 0 8- 00:00: 00 No 40mg [facility] Cyanocobala min Cyanocobala min 0 8-17 00:00: 00 No 1000mL [facility] Kenalog (Triamcinol one) Kenalog (Triamcinol one) 0 8-17 00:00: 00 No 40mg [facility] Cyanocobala min Cyanocobala min 0 8-17 00:00: 00 No 1000mL [facility] Kenalog (Triamcinol one) Kenalog (Triamcinol one) 0 8-17 00:00: 00 No 40mg [facility] Cyanocobala min Cyanocobala min 0 8-17 00:00: 00 No 1000mL [facility] Kenalog (Triamcinol one) Kenalog (Triamcinol one) 2022-0 8-17 00:00: 00 No 40mg [facility] Cyanocobala min Cyanocobala min 2022-0 8-17 00:00: 00 No 1000mL [facility] Kenalog (Triamcinol one) Kenalog (Triamcinol one) 0 8-17 00:00: 00 No 40mg [facility] Cyanocobala min Cyanocobala min 2022-0 8-17 00:00: 00 No 1000mL [facility] Kenalog (Triamcinol one) Kenalog (Triamcinol one) 0 8- 00:00: 00 No 40mg [facility] Cyanocobala min Cyanocobala min 0 817 00:00: 00 No 1000mL [facility] Kenalog (Triamcinol one) Kenalog (Triamcinol one) 0 05-15 00:00: 00 No 40mg [facility] Cyanocobala min Cyanocobala min 0 05-15 00:00: 00 No 1000mL [facility] Kenalog (Triamcinol one) Kenalog (Triamcinol one) 0 8- 00:00: 00 No 40mg [facility] Cyanocobala min Cyanocobala min 0 05-15 00:00: 00 No 1000mL [facility] Kenalog (Triamcinol one) Kenalog (Triamcinol one) 0 8- 00:00: 00 No 40mg [facility] Cyanocobala min Cyanocobala min 0 8-17 00:00: 00 No 1000mL [facility] Kenalog (Triamcinol one) Kenalog (Triamcinol one) 0 8- 00:00: 00 No 40mg [facility] Cyanocobala min Cyanocobala min 2022-0 8-17 00:00: 00 No 1000mL [facility] Kenalog (Triamcinol one) Kenalog (Triamcinol one) 0 8-17 00:00: 00 No 40mg [facility] Cyanocobala min Cyanocobala min 0 8- 00:00: 00 No 1000mL [facility] Kenalog (Triamcinol one) Kenalog (Triamcinol one) 0 8- 00:00: 00 No 40mg [facility] Cyanocobala min Cyanocobala min 0 8 00:00: 00 No 1000mL [facility] Kenalog (Triamcinol one) Kenalog (Triamcinol one) 0 8- 00:00: 00 No 40mg [facility] Cyanocobala min Cyanocobala min 0 05-15 00:00: 00 No 1000mL [facility] Kenalog (Triamcinol one) Kenalog (Triamcinol one) 0 8- 00:00: 00 No 40mg [facility] Cyanocobala min Cyanocobala min 0 8 00:00: 00 No 1000mL [facility] Kenalog (Triamcinol one) Kenalog (Triamcinol one) 0 8- 00:00: 00 No 40mg [facility] Cyanocobala min Cyanocobala min 0 8- 00:00: 00 No 1000mL [facility] Kenalog (Triamcinol one) Kenalog (Triamcinol one) 0 8- 00:00: 00 No 40mg [facility] Cyanocobala min Cyanocobala min 0 8- 00:00: 00 No 1000mL [facility] Kenalog (Triamcinol one) Kenalog (Triamcinol one) 0 8-17 00:00: 00 No 40mg [facility] Cyanocobala min Cyanocobala min 0 8-17 00:00: 00 No 1000mL [facility] Kenalog (Triamcinol one) Kenalog (Triamcinol one) 0 8-17 00:00: 00 No 40mg [facility] Cyanocobala min Cyanocobala min 2022-0 8-17 00:00: 00 No 1000mL [facility] Kenalog (Triamcinol one) Kenalog (Triamcinol one) 0 8-17 00:00: 00 No 40mg [facility] Cyanocobala min Cyanocobala min 0 8-17 00:00: 00 No 1000mL [facility] Kenalog (Triamcinol one) Kenalog (Triamcinol one) 0 8-17 00:00: 00 No 40mg [facility] Cyanocobala min Cyanocobala min 0 8-17 00:00: 00 No 1000mL [facility] Kenalog (Triamcinol one) Kenalog (Triamcinol one) 0 8-17 00:00: 00 No 40mg [facility] Cyanocobala min Cyanocobala min 0 8-17 00:00: 00 No 1000mL [facility] Kenalog (Triamcinol one) Kenalog (Triamcinol one) 0 5-17 00:00: 00 No 40mg [facility] Cyanocobala min Cyanocobala min 0 5-17 00:00: 00 No 1000mL [facility] Kenalog (Triamcinol one) Kenalog (Triamcinol one) 0 5-17 00:00: 00 No 40mg [facility] Cyanocobala min Cyanocobala min 0 5-17 00:00: 00 No 1000mL [facility] Kenalog (Triamcinol one) Kenalog (Triamcinol one) 0 5-17 00:00: 00 No 40mg [facility] Cyanocobala min Cyanocobala min 0 02-12 00:00: 00 No 1000mL [facility] Kenalog (Triamcinol one) Kenalog (Triamcinol one) 0 02-12 00:00: 00 No 40mg [facility] Cyanocobala min Cyanocobala min 0 02-12 00:00: 00 No 1000mL [facility] Kenalog (Triamcinol one) Kenalog (Triamcinol one) 0 02-12 00:00: 00 No 40mg [facility] Cyanocobala min Cyanocobala min 0 02-12 00:00: 00 No 1000mL [facility] Kenalog (Triamcinol one) Kenalog (Triamcinol one) 0 02-12 00:00: 00 No 40mg [facility] Cyanocobala min Cyanocobala min 0 02-12 00:00: 00 No 1000mL [facility] Kenalog (Triamcinol one) Kenalog (Triamcinol one) 0 02-12 00:00: 00 No 40mg [facility] Cyanocobala min Cyanocobala min 0 02-12 00:00: 00 No 1000mL [facility] Kenalog (Triamcinol one) Kenalog (Triamcinol one) 0 02-12 00:00: 00 No 40mg [facility] Cyanocobala min Cyanocobala min 0 02-12 00:00: 00 No 1000mL [facility] Kenalog (Triamcinol one) Kenalog (Triamcinol one) 0 02-12 00:00: 00 No 40mg [facility] Cyanocobala min Cyanocobala min 0 - 00:00: 00 No 1000mL [facility] Kenalog (Triamcinol one) Kenalog (Triamcinol one) 0 02-12 00:00: 00 No 40mg [facility] Cyanocobala min Cyanocobala min 0 02-12 00:00: 00 No 1000mL [facility] Kenalog (Triamcinol one) Kenalog (Triamcinol one) 0 02-12 00:00: 00 No 40mg [facility] Cyanocobala min Cyanocobala min 0 02-12 00:00: 00 No 1000mL [facility] Kenalog (Triamcinol one) Kenalog (Triamcinol one) 0 02-12 00:00: 00 No 40mg [facility] Cyanocobala min Cyanocobala min 0 02-12 00:00: 00 No 1000mL [facility] Kenalog (Triamcinol one) Kenalog (Triamcinol one) 0 02-12 00:00: 00 No 40mg [facility] Cyanocobala min Cyanocobala min 0 02-12 00:00: 00 No 1000mL [facility] Kenalog (Triamcinol one) Kenalog (Triamcinol one) 0 02-12 00:00: 00 No 40mg [facility] Cyanocobala min Cyanocobala min 0 02-12 00:00: 00 No 1000mL [facility] Kenalog (Triamcinol one) Kenalog (Triamcinol one) 0 02-12 00:00: 00 No 40mg [facility] Cyanocobala min Cyanocobala min 0 02-12 00:00: 00 No 1000mL [facility] Kenalog (Triamcinol one) Kenalog (Triamcinol one) 0 02-12 00:00: 00 No 40mg [facility] Cyanocobala min Cyanocobala min 0 02-12 00:00: 00 No 1000mL [facility] Kenalog (Triamcinol one) Kenalog (Triamcinol one) 0 02-12 00:00: 00 No 40mg [facility] Cyanocobala min Cyanocobala min 0 02-12 00:00: 00 No 1000mL [facility] Kenalog (Triamcinol one) Kenalog (Triamcinol one) 0 02-12 00:00: 00 No 40mg [facility] Cyanocobala min Cyanocobala min 0 02-12 00:00: 00 No 1000mL [facility] Kenalog (Triamcinol one) Kenalog (Triamcinol one) 0 02-12 00:00: 00 No 40mg [facility] Cyanocobala min Cyanocobala min 0 02-12 00:00: 00 No 1000mL [facility] Kenalog (Triamcinol one) Kenalog (Triamcinol one) 0 02-12 00:00: 00 No 40mg [facility] Cyanocobala min Cyanocobala min 0 02-12 00:00: 00 No 1000mL [facility] Kenalog (Triamcinol one) Kenalog (Triamcinol one) 0 02-12 00:00: 00 No 40mg [facility] Cyanocobala min Cyanocobala min 0 -17 00:00: 00 No 1000mL [facility] Kenalog (Triamcinol one) Kenalog (Triamcinol one) 0 - 00:00: 00 No 40mg [facility] Cyanocobala min Cyanocobala min 0 -17 00:00: 00 No 1000mL [facility] Kenalog (Triamcinol one) Kenalog (Triamcinol one) 0 02-12 00:00: 00 No 40mg [facility] Cyanocobala min Cyanocobala min 0 02-12 00:00: 00 No 1000mL [facility] Kenalog (Triamcinol one) Kenalog (Triamcinol one) 0 02-12 00:00: 00 No 40mg [facility] Cyanocobala min Cyanocobala min 0 02-12 00:00: 00 No 1000mL [facility] Kenalog (Triamcinol one) Kenalog (Triamcinol one) 0 02-12 00:00: 00 No 40mg [facility] Cyanocobala min Cyanocobala min 0 02-12 00:00: 00 No 1000mL [facility] Kenalog (Triamcinol one) Kenalog (Triamcinol one) 0 02-12 00:00: 00 No 40mg [facility] Cyanocobala min Cyanocobala min 0 02-12 00:00: 00 No 1000mL [facility] Kenalog (Triamcinol one) Kenalog (Triamcinol one) 0 02-12 00:00: 00 No 40mg [facility] Cyanocobala min Cyanocobala min 0 02-12 00:00: 00 No 1000mL [facility] Kenalog (Triamcinol one) Kenalog (Triamcinol one) 0 02-12 00:00: 00 No 40mg [facility] Cyanocobala min Cyanocobala min 0 02-12 00:00: 00 No 1000mL [facility] Kenalog (Triamcinol one) Kenalog (Triamcinol one) 0 - 00:00: 00 No 40mg [facility] Cyanocobala min Cyanocobala min 0 02-12 00:00: 00 No 1000mL [facility] Kenalog (Triamcinol one) Kenalog (Triamcinol one) 0 02-12 00:00: 00 No 40mg [facility] Cyanocobala min Cyanocobala min 0 02-12 00:00: 00 No 1000mL [facility] Kenalog (Triamcinol one) Kenalog (Triamcinol one) 0 02-12 00:00: 00 No 40mg [facility] Cyanocobala min Cyanocobala min 0 02-12 00:00: 00 No 1000mL [facility] Kenalog (Triamcinol one) Kenalog (Triamcinol one) 0 02-12 00:00: 00 No 40mg [facility] Cyanocobala min Cyanocobala min 0 02-12 00:00: 00 No 1000mL [facility] Kenalog (Triamcinol one) Kenalog (Triamcinol one) 0 02-12 00:00: 00 No 40mg [facility] Cyanocobala min Cyanocobala min 0 02-12 00:00: 00 No 1000mL [facility] Kenalog (Triamcinol one) Kenalog (Triamcinol one) 0 02-12 00:00: 00 No 40mg [facility] Cyanocobala min Cyanocobala min 0 02-12 00:00: 00 No 1000mL [facility] Kenalog (Triamcinol one) Kenalog (Triamcinol one) 0 02-12 00:00: 00 No 40mg [facility] Cyanocobala min Cyanocobala min 0 02-12 00:00: 00 No 1000mL [facility] Kenalog (Triamcinol one) Kenalog (Triamcinol one) 202302-12 00:00: 00 No 40mg [facility] Cyanocobala min Cyanocobala min 0 -17 00:00: 00 No 1000mL [facility] Kenalog (Triamcinol one) Kenalog (Triamcinol one) 02-12 00:00: 00 No 40mg [facility] Cyanocobala min Cyanocobala min 02-12 00:00: 00 No 1000mL [facility] hydrOXYzine (ATARAX) tablet 25 mg 01-28 18:45: 00 01-28 18:51 :00 No 25mg 25 mg, Oral, ONCE, 1 dose, On Fri01/28/23 at 1345, [facility] traMADol HCl 50 MG traMADol HCl 50 MG 01-27 00:00: 00 No 1{table t_as_ne eded} traMADol HCl 50 MG Bupivicaine Lamar Bupivicaine Lamar -15 00:00: 00 No 5mL [facility] Kenalog (Triamcinol one) Kenalog (Triamcinol one) -15 00:00: 00 No 1mL [facility] Bupivicaine Lamar Bupivicaine Lamar 0 -15 00:00: 00 No 5mL [facility] Kenalog (Triamcinol one) Kenalog (Triamcinol one) -15 00:00: 00 No 1mL [facility] Bupivicaine Lamar Bupivicaine Lamar 2022-0 3-15 00:00: 00 No 5mL [facility] Kenalog (Triamcinol one) Kenalog (Triamcinol one) 0 -15 00:00: 00 No 1mL [facility] Bupivicaine Lamar Bupivicaine Lamar 2022-0 3-15 00:00: 00 No 5mL [facility] Kenalog (Triamcinol one) Kenalog (Triamcinol one) 0 3-15 00:00: 00 No 1mL [facility] Bupivicaine Lamar Bupivicaine Lamar 0 3-15 00:00: 00 No 5mL [facility] Kenalog (Triamcinol one) Kenalog (Triamcinol one) 0 3-15 00:00: 00 No 1mL [facility] Bupivicaine Lamar Bupivicaine Lamar 0 3-15 00:00: 00 No 5mL [facility] Kenalog (Triamcinol one) Kenalog (Triamcinol one) 0 3-15 00:00: 00 No 1mL [facility] Bupivicaine Lamar Bupivicaine Lamar 0 3-15 00:00: 00 No 5mL [facility] Kenalog (Triamcinol one) Kenalog (Triamcinol one) 0 3-15 00:00: 00 No 1mL [facility] Bupivicaine Lamar Bupivicaine Lamar 0 3-15 00:00: 00 No 5mL [facility] Kenalog (Triamcinol one) Kenalog (Triamcinol one) 0 3-15 00:00: 00 No 1mL [facility] Bupivicaine Lamar Bupivicaine Lamar 0 3-15 00:00: 00 No 5mL [facility] Kenalog (Triamcinol one) Kenalog (Triamcinol one) 0 3-15 00:00: 00 No 1mL [facility] Bupivicaine Lamar Bupivicaine Lamar 2022-0 3-15 00:00: 00 No 5mL [facility] Kenalog (Triamcinol one) Kenalog (Triamcinol one) 0 3-15 00:00: 00 No 1mL [facility] Bupivicaine Lamar Bupivicaine Lamar 0 3-15 00:00: 00 No 5mL [facility] Kenalog (Triamcinol one) Kenalog (Triamcinol one) 0 3-15 00:00: 00 No 1mL [facility] Bupivicaine Lamar Bupivicaine Lamar 0 3-15 00:00: 00 No 5mL [facility] Kenalog (Triamcinol one) Kenalog (Triamcinol one) 0 3-15 00:00: 00 No 1mL [facility] Bupivicaine Lamar Bupivicaine Lamar 0 3-15 00:00: 00 No 5mL [facility] Kenalog (Triamcinol one) Kenalog (Triamcinol one) 0 3-15 00:00: 00 No 1mL [facility] Bupivicaine Lamar Bupivicaine Lamar 0 3-15 00:00: 00 No 5mL [facility] Kenalog (Triamcinol one) Kenalog (Triamcinol one) 0 3-15 00:00: 00 No 1mL [facility] Bupivicaine Lamar Bupivicaine Lamar 0 3-15 00:00: 00 No 5mL [facility] Kenalog (Triamcinol one) Kenalog (Triamcinol one) 0 3-15 00:00: 00 No 1mL [facility] Bupivicaine Lamar Bupivicaine Lamar 0 3-15 00:00: 00 No 5mL [facility] Kenalog (Triamcinol one) Kenalog (Triamcinol one) 0 3-15 00:00: 00 No 1mL [facility] Bupivicaine Lamar Bupivicaine Lamar 2022-0 3-15 00:00: 00 No 5mL [facility] Kenalog (Triamcinol one) Kenalog (Triamcinol one) 0 3-15 00:00: 00 No 1mL [facility] Bupivicaine Lamar Bupivicaine Lamar 0 -15 00:00: 00 No 5mL [facility] Kenalog (Triamcinol one) Kenalog (Triamcinol one) 0 3-15 00:00: 00 No 1mL [facility] Bupivicaine Lamar Bupivicaine Lamar 0 -15 00:00: 00 No 5mL [facility] Kenalog (Triamcinol one) Kenalog (Triamcinol one) 0 3-15 00:00: 00 No 1mL [facility] Bupivicaine Lamar Bupivicaine Lamar 0 15 00:00: 00 No 5mL [facility] Kenalog (Triamcinol one) Kenalog (Triamcinol one) 3-15 00:00: 00 No 1mL [facility] Bupivicaine Lamar Bupivicaine Lamar 0 15 00:00: 00 No 5mL [facility] Kenalog (Triamcinol one) Kenalog (Triamcinol one) 0 3-15 00:00: 00 No 1mL [facility] Bupivicaine Lamar Bupivicaine Lamar 0 3-15 00:00: 00 No 5mL [facility] Kenalog (Triamcinol one) Kenalog (Triamcinol one) 0 3-15 00:00: 00 No 1mL [facility] Bupivicaine Lamar Bupivicaine Lamar 0 3-15 00:00: 00 No 5mL [facility] Kenalog (Triamcinol one) Kenalog (Triamcinol one) 0 3-15 00:00: 00 No 1mL [facility] Bupivicaine Lamar Bupivicaine Lamar 0 3-15 00:00: 00 No 5mL [facility] Kenalog (Triamcinol one) Kenalog (Triamcinol one) 0 3-15 00:00: 00 No 1mL [facility] Bupivicaine Lamar Bupivicaine Lamar 0 3-15 00:00: 00 No 5mL [facility] Kenalog (Triamcinol one) Kenalog (Triamcinol one) 0 3-15 00:00: 00 No 1mL [facility] Bupivicaine Lamar Bupivicaine Lamar 0 3-15 00:00: 00 No 5mL [facility] Kenalog (Triamcinol one) Kenalog (Triamcinol one) 0 3-15 00:00: 00 No 1mL [facility] Bupivicaine Lamar Bupivicaine Lamar 0 3-15 00:00: 00 No 5mL [facility] Kenalog (Triamcinol one) Kenalog (Triamcinol one) 0 3-15 00:00: 00 No 1mL [facility] Bupivicaine Lamar Bupivicaine Lamar 0 -15 00:00: 00 No 5mL [facility] Kenalog (Triamcinol one) Kenalog (Triamcinol one) 0 3-15 00:00: 00 No 1mL [facility] Bupivicaine Lamar Bupivicaine Lamar 0 3-15 00:00: 00 No 5mL [facility] Kenalog (Triamcinol one) Kenalog (Triamcinol one) 0 3-15 00:00: 00 No 1mL [facility] Bupivicaine Lamar Bupivicaine Lamar 2022-0 3-15 00:00: 00 No 5mL [facility] Kenalog (Triamcinol one) Kenalog (Triamcinol one) 0 3-15 00:00: 00 No 1mL [facility] Bupivicaine Lamar Bupivicaine Lamar 0 3-15 00:00: 00 No 5mL [facility] Kenalog (Triamcinol one) Kenalog (Triamcinol one) 0 3-15 00:00: 00 No 1mL [facility] Bupivicaine Lamar Bupivicaine Lamar 0 3-15 00:00: 00 No 5mL [facility] Kenalog (Triamcinol one) Kenalog (Triamcinol one) 0 3-15 00:00: 00 No 1mL [facility] Bupivicaine Lamar Bupivicaine Lamar 0 -15 00:00: 00 No 5mL [facility] Kenalog (Triamcinol one) Kenalog (Triamcinol one) 0 3-15 00:00: 00 No 1mL [facility] Bupivicaine Lamar Bupivicaine Lamar 0 -15 00:00: 00 No 5mL [facility] Kenalog (Triamcinol one) Kenalog (Triamcinol one) 0 3-15 00:00: 00 No 1mL [facility] Bupivicaine Lamar Bupivicaine Lamar 0 3-15 00:00: 00 No 5mL [facility] Kenalog (Triamcinol one) Kenalog (Triamcinol one) 0 3-15 00:00: 00 No 1mL [facility] Bupivicaine Lamar Bupivicaine Lamar 2022-0 3-15 00:00: 00 No 5mL [facility] Kenalog (Triamcinol one) Kenalog (Triamcinol one) 0 3-15 00:00: 00 No 1mL [facility] Bupivicaine Lamar Bupivicaine Lamar 2022-0 3-15 00:00: 00 No 5mL [facility] Kenalog (Triamcinol one) Kenalog (Triamcinol one) 0 3-15 00:00: 00 No 1mL [facility] Bupivicaine Lamar Bupivicaine Lamar 0 3-15 00:00: 00 No 5mL [facility] Kenalog (Triamcinol one) Kenalog (Triamcinol one) 0 3-15 00:00: 00 No 1mL [facility] Kenalog (Triamcinol one) Kenalog (Triamcinol one) 0 2-16 00:00: 00 No 40mg [facility] Bupivicaine Lamar Bupivicaine Lamar 0 2-16 00:00: 00 No 2.5mg [facility] Kenalog (Triamcinol one) Kenalog (Triamcinol one) 0 2-16 00:00: 00 No 1mL [facility] Kenalog (Triamcinol one) Kenalog (Triamcinol one) 0 2-16 00:00: 00 No 40mg [facility] Bupivicaine Lamar Bupivicaine Lamar 0 2-16 00:00: 00 No 2.5mg [facility] Kenalog (Triamcinol one) Kenalog (Triamcinol one) 0 2-16 00:00: 00 No 1mL [facility] Kenalog (Triamcinol one) Kenalog (Triamcinol one) 0 2-16 00:00: 00 No 40mg [facility] Bupivicaine Lamar Bupivicaine Lamar 0 2-16 00:00: 00 No 2.5mg [facility] Kenalog (Triamcinol one) Kenalog (Triamcinol one) 0 2-16 00:00: 00 No 1mL [facility] Kenalog (Triamcinol one) Kenalog (Triamcinol one) 0 2-16 00:00: 00 No 40mg [facility] Bupivicaine Lamar Bupivicaine Lamar 0 16 00:00: 00 No 2.5mg [facility] Kenalog (Triamcinol one) Kenalog (Triamcinol one) 0 2-16 00:00: 00 No 1mL [facility] Kenalog (Triamcinol one) Kenalog (Triamcinol one) 0 2-16 00:00: 00 No 40mg [facility] Bupivicaine Lamar Bupivicaine Lamar 0 16 00:00: 00 No 2.5mg [facility] Kenalog (Triamcinol one) Kenalog (Triamcinol one) 0 2-16 00:00: 00 No 1mL [facility] Kenalog (Triamcinol one) Kenalog (Triamcinol one) 0 2-16 00:00: 00 No 40mg [facility] Bupivicaine Lamar Bupivicaine Lamar 0 16 00:00: 00 No 2.5mg [facility] Kenalog (Triamcinol one) Kenalog (Triamcinol one) 0 2-16 00:00: 00 No 1mL [facility] Kenalog (Triamcinol one) Kenalog (Triamcinol one) 0 2-16 00:00: 00 No 40mg [facility] Bupivicaine Lamar Bupivicaine Lamar 0 2-16 00:00: 00 No 2.5mg [facility] Kenalog (Triamcinol one) Kenalog (Triamcinol one) 0 2-16 00:00: 00 No 1mL [facility] Kenalog (Triamcinol one) Kenalog (Triamcinol one) 0 2-16 00:00: 00 No 40mg [facility] Bupivicaine Lamar Bupivicaine Lamar 0 16 00:00: 00 No 2.5mg [facility] Kenalog (Triamcinol one) Kenalog (Triamcinol one) 0 16 00:00: 00 No 1mL [facility] Kenalog (Triamcinol one) Kenalog (Triamcinol one) 0 2-16 00:00: 00 No 40mg [facility] Bupivicaine Lamar Bupivicaine Lamar 0 16 00:00: 00 No 2.5mg [facility] Kenalog (Triamcinol one) Kenalog (Triamcinol one) 0 16 00:00: 00 No 1mL [facility] Kenalog (Triamcinol one) Kenalog (Triamcinol one) 0 -16 00:00: 00 No 40mg [facility] Bupivicaine Lamar Bupivicaine Lamar 0 16 00:00: 00 No 2.5mg [facility] Kenalog (Triamcinol one) Kenalog (Triamcinol one) 0 16 00:00: 00 No 1mL [facility] Kenalog (Triamcinol one) Kenalog (Triamcinol one) 0 16 00:00: 00 No 40mg [facility] Bupivicaine Lamar Bupivicaine Lamar 0 16 00:00: 00 No 2.5mg [facility] Kenalog (Triamcinol one) Kenalog (Triamcinol one) 0 -16 00:00: 00 No 1mL [facility] Kenalog (Triamcinol one) Kenalog (Triamcinol one) 0 2-16 00:00: 00 No 40mg [facility] Bupivicaine Lamar Bupivicaine Lamar 0 2-16 00:00: 00 No 2.5mg [facility] Kenalog (Triamcinol one) Kenalog (Triamcinol one) 0 2-16 00:00: 00 No 1mL [facility] Kenalog (Triamcinol one) Kenalog (Triamcinol one) 0 2-16 00:00: 00 No 40mg [facility] Bupivicaine Lamar Bupivicaine Lamar 0 2-16 00:00: 00 No 2.5mg [facility] Kenalog (Triamcinol one) Kenalog (Triamcinol one) 0 2-16 00:00: 00 No 1mL [facility] Kenalog (Triamcinol one) Kenalog (Triamcinol one) 0 2-16 00:00: 00 No 40mg [facility] Bupivicaine Lamar Bupivicaine Lamar 0 -16 00:00: 00 No 2.5mg [facility] [facility] Kenalog (Triamcinol one) Kenalog (Triamcinol one) 0 2-16 00:00: 00 No 1mL [facility] Kenalog (Triamcinol one) Kenalog (Triamcinol one) 0 2-16 00:00: 00 No 40mg [facility] Bupivicaine Lamar Bupivicaine Lamar 0 -16 00:00: 00 No 2.5mg [facility] Kenalog (Triamcinol one) Kenalog (Triamcinol one) 0 2-16 00:00: 00 No 1mL [facility] Kenalog (Triamcinol one) Kenalog (Triamcinol one) 0 2-16 00:00: 00 No 40mg [facility] Bupivicaine Lamar Bupivicaine Lamar 0 2-16 00:00: 00 No 2.5mg [facility] Kenalog (Triamcinol one) Kenalog (Triamcinol one) 0 2-16 00:00: 00 No 1mL [facility] Kenalog (Triamcinol one) Kenalog (Triamcinol one) 0 2-16 00:00: 00 No 40mg [facility] Bupivicaine Lamar Bupivicaine Lamar 0 2-16 00:00: 00 No 2.5mg [facility] Kenalog (Triamcinol one) Kenalog (Triamcinol one) 0 2-16 00:00: 00 No 1mL [facility] Kenalog (Triamcinol one) Kenalog (Triamcinol one) 0 2-16 00:00: 00 No 40mg [facility] Bupivicaine Lamar Bupivicaine Lamar 0 16 00:00: 00 No 2.5mg [facility] Kenalog (Triamcinol one) Kenalog (Triamcinol one) 0 2-16 00:00: 00 No 1mL [facility] Kenalog (Triamcinol one) Kenalog (Triamcinol one) 0 2-16 00:00: 00 No 40mg [facility] Bupivicaine Lamar Bupivicaine Lamar 0 -16 00:00: 00 No 2.5mg [facility] Kenalog (Triamcinol one) Kenalog (Triamcinol one) 0 2-16 00:00: 00 No 1mL [facility] Kenalog (Triamcinol one) Kenalog (Triamcinol one) 0 2-16 00:00: 00 No 40mg [facility] Bupivicaine Lamar Bupivicaine Lamar 0 2-16 00:00: 00 No 2.5mg [facility] Kenalog (Triamcinol one) Kenalog (Triamcinol one) 0 2-16 00:00: 00 No 1mL [facility] Kenalog (Triamcinol one) Kenalog (Triamcinol one) 0 -16 00:00: 00 No 40mg [facility] Bupivicaine Lamar Bupivicaine Lamar -16 00:00: 00 No 2.5mg [facility] Kenalog (Triamcinol one) Kenalog (Triamcinol one) 0 2-16 00:00: 00 No 1mL [facility] Kenalog (Triamcinol one) Kenalog (Triamcinol one) 0 16 00:00: 00 No 40mg [facility] Bupivicaine Lamar Bupivicaine Lamar 16 00:00: 00 No 2.5mg [facility] Kenalog (Triamcinol one) Kenalog (Triamcinol one) -16 00:00: 00 No 1mL [facility] Kenalog (Triamcinol one) Kenalog (Triamcinol one) 0 16 00:00: 00 No 40mg [facility] Bupivicaine Lamar Bupivicaine Lamar 16 00:00: 00 No 2.5mg [facility] Kenalog (Triamcinol one) Kenalog (Triamcinol one) 0 2-16 00:00: 00 No 1mL [facility] Kenalog (Triamcinol one) Kenalog (Triamcinol one) 0 -16 00:00: 00 No 40mg [facility] Bupivicaine Lamar Bupivicaine Lamar 0 16 00:00: 00 No 2.5mg [facility] Kenalog (Triamcinol one) Kenalog (Triamcinol one) 0 2-16 00:00: 00 No 1mL [facility] Kenalog (Triamcinol one) Kenalog (Triamcinol one) 0 2-16 00:00: 00 No 40mg [facility] Bupivicaine Lamar Bupivicaine Lamar 0 2-16 00:00: 00 No 2.5mg [facility] Kenalog (Triamcinol one) Kenalog (Triamcinol one) 0 2-16 00:00: 00 No 1mL [facility] Kenalog (Triamcinol one) Kenalog (Triamcinol one) 0 2-16 00:00: 00 No 40mg [facility] Bupivicaine Lamar Bupivicaine Lamar 0 -16 00:00: 00 No 2.5mg [facility] Kenalog (Triamcinol one) Kenalog (Triamcinol one) 0 2-16 00:00: 00 No 1mL [facility] Kenalog (Triamcinol one) Kenalog (Triamcinol one) 0 2-16 00:00: 00 No 40mg [facility] Bupivicaine Lamar Bupivicaine Lamar 0 -16 00:00: 00 No 2.5mg [facility] Kenalog (Triamcinol one) Kenalog (Triamcinol one) 0 2-16 00:00: 00 No 1mL [facility] Kenalog (Triamcinol one) Kenalog (Triamcinol one) 0 2-16 00:00: 00 No 40mg [facility] Bupivicaine Lamar Bupivicaine Lamar 0 -16 00:00: 00 No 2.5mg [facility] Kenalog (Triamcinol one) Kenalog (Triamcinol one) 0 2-16 00:00: 00 No 1mL [facility] Kenalog (Triamcinol one) Kenalog (Triamcinol one) 0 2-16 00:00: 00 No 40mg [facility] Bupivicaine Lamar Bupivicaine Lamar 0 16 00:00: 00 No 2.5mg [facility] Kenalog (Triamcinol one) Kenalog (Triamcinol one) 0 2-16 00:00: 00 No 1mL [facility] Kenalog (Triamcinol one) Kenalog (Triamcinol one) 0 2-16 00:00: 00 No 40mg [facility] Bupivicaine Lamar Bupivicaine Lamar 0 16 00:00: 00 No 2.5mg [facility] Kenalog (Triamcinol one) Kenalog (Triamcinol one) 0 2-16 00:00: 00 No 1mL [facility] Kenalog (Triamcinol one) Kenalog (Triamcinol one) 0 2-16 00:00: 00 No 40mg [facility] Bupivicaine Lamar Bupivicaine Lamar 0 16 00:00: 00 No 2.5mg [facility] Kenalog (Triamcinol one) Kenalog (Triamcinol one) 0 2-16 00:00: 00 No 1mL [facility] Kenalog (Triamcinol one) Kenalog (Triamcinol one) 0 2-16 00:00: 00 No 40mg [facility] Bupivicaine Lamar Bupivicaine Lamar 0 2-16 00:00: 00 No 2.5mg [facility] Kenalog (Triamcinol one) Kenalog (Triamcinol one) 0 2-16 00:00: 00 No 1mL [facility] Kenalog (Triamcinol one) Kenalog (Triamcinol one) 0 2-16 00:00: 00 No 40mg [facility] Bupivicaine Lamar Bupivicaine Lamar 2-16 00:00: 00 No 2.5mg [facility] Kenalog (Triamcinol one) Kenalog (Triamcinol one) 0 2-16 00:00: 00 No 1mL [facility] Kenalog (Triamcinol one) Kenalog (Triamcinol one) 0 2-16 00:00: 00 No 40mg [facility] Bupivicaine Lamar Bupivicaine Lamar 2-16 00:00: 00 No 2.5mg [facility] Kenalog (Triamcinol one) Kenalog (Triamcinol one) 2-16 00:00: 00 No 1mL [facility] traMADol HCl 50 MG traMADol HCl 50 MG 2-16 00:00: 00 No 1{table t_as_ne eded} traMADol HCl 50 MG Kenalog (Triamcinol one) Kenalog (Triamcinol one) 2-16 00:00: 00 No 1mL [facility] Kenalog (Triamcinol one) Kenalog (Triamcinol one) 0 2-16 00:00: 00 No 40mg [facility] Bupivicaine Lamar Bupivicaine Lamar 2-16 00:00: 00 No 2.5mg [facility] Kenalog (Triamcinol one) Kenalog (Triamcinol one) 0 2-16 00:00: 00 No 40mg [facility] Bupivicaine Lamar Bupivicaine Lamar 0 2-16 00:00: 00 No 2.5mg [facility] Kenalog (Triamcinol one) Kenalog (Triamcinol one) 0 2-16 00:00: 00 No 1mL [facility] Kenalog (Triamcinol one) Kenalog (Triamcinol one) -16 00:00: 00 No 40mg [facility] Bupivicaine Lamar Bupivicaine Lamar 16 00:00: 00 No 2.5mg [facility] Kenalog (Triamcinol one) Kenalog (Triamcinol one) 2-16 00:00: 00 No 1mL [facility] Kenalog (Triamcinol one) Kenalog (Triamcinol one) -16 00:00: 00 No 40mg [facility] Bupivicaine Lamar Bupivicaine Lamar 16 00:00: 00 No 2.5mg [facility] Kenalog (Triamcinol one) Kenalog (Triamcinol one) -16 00:00: 00 No 1mL [facility] dextrose 50 % in water (D50W) injection 50 mL 2021-09 19:30: 00 08-30 18:42 :00 No 50mL 50 mL, Slow IV Push, ONCE, 1 dose, On Fri08/30/22 at 1330, Routine [facility] NaCl 0.9% (NS) bolus infusion 1,000 mL 2021-09 17:45: 00 08-30 19:38 :00 No 1000mL at 999 mL/hr, 1,000 mL, IV Infusion, ONCE, 1 dose, On Fri08/30/22 at 1145, AVNNA [facility] NaCl 0.9% (NS) bolus infusion 1,000 mL 2021-09 16:00: 00 08-30 16:53 :00 No 1000mL at 999 mL/hr, 1,000 mL, IV Infusion, ONCE, 1 dose, On Fri08/30/22 at 1000, VANNA [facility] NaCl 0.9% (NS) bolus infusion 1,000 mL 2021-09 14:45: 00 08-30 15:24 :00 No 1000mL at 999 mL/hr, 1,000 mL, IV Infusion, ONCE, 1 dose, On Fri08/30/22 at 0845, VANNA [facility] carvediloL 3.125 mg tablet 05-25 00:00: 00 06-25 04:59 :00 No [id number] 3.125mg Take 1 tablet by mouth in the morning and 1 tablet in the evening. Take with meals. Do all this for 30 days. [facility] carvediloL 3.125 mg tablet 05-25 00:00: 00 06-25 04:59 :00 No [id number] 3.125mg Take 1 tablet by mouth in the morning and 1 tablet in the evening. Take with meals. Do all this for 30 days. [facility] nicotine 21 mg/24 hr patch 05-24 17:45: 28 Yes 1{patch } Apply 1 Patch to area(s) every 24 (twenty-fo ur) hours. Patient reports he smokes 13 cigarettes per day. [facility] nicotine 21 mg/24 hr patch 05-24 17:45: 28 Yes 1{patch } Apply 1 Patch to area(s) every 24 (twenty-fo ur) hours. Patient reports he smokes 13 cigarettes per day. [facility] nicotine 21 mg/24 hr patch 05-24 17:45: 28 Yes 1{patch } Apply 1 Patch to area(s) every 24 (twenty-fo ur) hours. Patient reports he smokes 13 cigarettes per day. [facility] nicotine 21 mg/24 hr patch 05-24 17:45: 28 Yes 1{patch } Apply 1 Patch to area(s) every 24 (twenty-fo ur) hours. Patient reports he smokes 13 cigarettes per day. [facility] nicotine 21 mg/24 hr patch 05-24 17:45: 28 Yes 1{patch } Apply 1 Patch to area(s) every 24 (twenty-fo ur) hours. Patient reports he smokes 13 cigarettes per day. [facility] hydrOXYzine (ATARAX) tablet 10 mg 05-24 15:14: 53 Yes 10mg 10 mg, Oral, Q6HPRN, Starting on Fri05/24/22 at 1014, Until Discontinu ed, Routine, Anxiety, Itching [facility] polyethylen e glycol 3350 powder 17 g 05-24 14:00: 00 Yes 17g 17 g, Oral, DAILY, First dose on Fri05/24/22 at 0900, Until Discontinu ed, Routine [facility] pantoprazol e (PROTONIX) EC tablet 40 mg 05-24 14:00: 00 Yes 40mg 40 mg, Oral, DAILY, First dose on Fri05/24/22 at 0900, Until Discontinu ed, Routine [facility] lisinopriL (PRINIVIL,Z ESTRIL) tablet 2.5 mg 05-24 14:00: 00 Yes 2.5mg 2.5 mg, Oral, DAILY, First dose on Fri05/24/22 at 0900, Until Discontinu ed, Routine [facility] isosorbide mononitrate (IMDUR) 24 hr tablet 30 mg 05-24 14:00: 00 Yes 30mg 30 mg, Oral, DAILY, First dose on Fri05/24/22 at 0900, Until Discontinu ed, Routine [facility] atorvastati n (LIPITOR) tablet 80 mg 05-24 14:00: 00 Yes 80mg 80 mg, Oral, DAILY, First dose on Fri05/24/22 at 0900, Until Discontinu ed, Routine [facility] aspirin chewable tablet 81 mg 05-24 14:00: 00 Yes 81mg 81 mg, Oral, DAILY, First dose on Fri05/24/22 at 0900, Until Discontinu ed, Routine [facility] carvediloL (COREG) tablet 3.125 mg 05-24 13:00: 00 Yes 3.125mg 3.125 mg, Oral, BID MEALS, First dose on Fri05/24/22 at 0800, Until Discontinu ed, Routine [facility] NaCl 0.9% (NS) IV infusion 1,000 mL 05-24 01:30: 00 Yes 1000mL at 75 mL/hr, IV Infusion, CONTINUOUS , Starting on Fri05/23/22 at 2030, Until Discontinu ed, Routine [facility] sennosides- docusate sodium (SENOKOT-S) 8.6-50 mg per tablet 1 tablet 05-24 01:00: 00 Yes 1{tbl} 1 tablet, Oral, BID, First dose on Fri05/23/22 at 2000, Until Discontinu ed, Routine [facility] enoxaparin (LOVENOX) injection 90 mg 05-24 01:00: 00 Yes 1mg/kg 90 mg (rounded from 93 mg = 1 mg/kg ?93 kg), Subcutaneo us, Q12H, First dose (after last modificati on) on Fri05/23/22 at 2000, Until Discontinu ed, Routine [facility] nicotine (NICODERM) 21 mg/24 hr patch 1 Patch 05-24 00:45: 00 Yes 1{patch } 1 Patch, Topical, Administer over 24 Hours, Q24H, First dose on Fri05/23/22 at 1945, Until Discontinu ed, Routine [facility] hydrOXYzine 10 mg tablet 05-24 00:00: 00 06-24 04:59 :00 No [id number] 10mg Take 1 tablet by mouth every 6 (six) hours as needed for Anxiety for up to 30 days. [facility] hydrOXYzine 10 mg tablet 05-24 00:00: 00 06-24 04:59 :00 No [id number] 10mg Take 1 tablet by mouth every 6 (six) hours as needed for Anxiety for up to 30 days. [facility] enoxaparin (LOVENOX) injection 40 mg 05-23 22:00: 00 05-23 23:48 :16 No 40mg 40 mg, Subcutaneo us, DAILY, First dose on Fri05/23/22 at 1700, Until Discontinu ed, Routine [facility] ondansetron (ZOFRAN (PF)) injection 4 mg 05-23 19:56: 03 Yes 4mg 4 mg, Slow IV Push, Q6HPRN, Starting on Fri05/23/22 at 1456, Until Discontinu ed, Routine, Nausea and Vomiting (N/V) [facility] HYDROcodone -acetaminop hen (NORCO 5) 5-325 mg tablet 1 tablet 05-23 19:55: 52 05-25 19:54 :52 No 1{tbl} 1 tablet, Oral, Q6HPRN, Starting on Nohemy 05/23/22 at 1455, Until 05/25/22 at 1454, Routine, Pain (scale 4-6) [facility] acetaminoph en (TYLENOL) tablet 650 mg 05-23 19:55: 49 Yes 650mg 650 mg, Oral, Q6HPRN, Starting on Fri05/23/22 at 1455, Until Discontinu ed, Routine, Pain (scale 1-3) [facility] NaCl 0.9% (NS) bolus infusion 1,000 mL 05-23 18:45: 00 05-23 22:25 :22 No 1000mL at 999 mL/hr, 1,000 mL, IV Infusion, ONCE, 1 dose, On Fri05/23/22 at 1345, [facility] NaCl 0.9% (NS) bolus infusion 1,000 mL 05-23 15:15: 00 05-23 18:21 :00 No 1000mL at 999 mL/hr, 1,000 mL, IV Infusion, ONCE, 1 dose, On Fri05/23/22 at 1015, VANNA [facility] LORazepam (ATIVAN) injection 1 mg 05-23 13:30: 00 05-23 13:45 :00 No 1mg 1 mg, Slow IV Push, ONCE, 1 dose, On Fri05/23/22 at 0830, STAT
Is the medication being used for status epilepticu s? No [facility] Eszopiclone 1 MG Eszopiclone 1 MG - 00:00: 00 No 1{table t_immed iately_ before_ bedtime } QD Eszopiclon e 1 MG Eszopiclone 1 MG Eszopiclone 1 MG 01-22 00:00: 00 No 1{table t_immed iately_ before_ bedtime } QD Eszopiclon e 1 MG Eszopiclone 1 MG Eszopiclone 1 MG - 00:00: 00 No 1{table t_immed iately_ before_ [...] 7 days. Indication s: acute pain [facility] Kenalog (Triamcinol one) Kenalog (Triamcinol one) 2020-09 0-13 00:00: 00 No 40mg [facility] Kenalog (Triamcinol one) Kenalog (Triamcinol one) 2020-09 0-13 00:00: 00 No 40mg [facility] Kenalog (Triamcinol one) Kenalog (Triamcinol one) 2020-09 0-13 00:00: 00 No 40mg [facility] Kenalog (Triamcinol one) Kenalog (Triamcinol one) 2020-09 0-13 00:00: 00 No 40mg [facility] Kenalog (Triamcinol one) Kenalog (Triamcinol one) 2020-09 0-13 00:00: 00 No 40mg [facility] Kenalog (Triamcinol one) Kenalog (Triamcinol one) 2020-09 0-13 00:00: 00 No 40mg [facility] Kenalog (Triamcinol one) Kenalog (Triamcinol one) 2020-09 0- 00:00: 00 No 40mg [facility] Kenalog (Triamcinol one) Kenalog (Triamcinol one) 2020-09 0- 00:00: 00 No 40mg [facility] Kenalog (Triamcinol one) Kenalog (Triamcinol one) 2020-09 0- 00:00: 00 No 40mg [facility] Kenalog (Triamcinol one) Kenalog (Triamcinol one) 2020-09 0- 00:00: 00 No 40mg [facility] Kenalog (Triamcinol one) Kenalog (Triamcinol one) 2020-09 0 00:00: 00 No 40mg [facility] Kenalog (Triamcinol one) Kenalog (Triamcinol one) 2020-09 0 00:00: 00 No 40mg [facility] Kenalog (Triamcinol one) Kenalog (Triamcinol one) 2020-09 0 00:00: 00 No 40mg [facility] Kenalog (Triamcinol one) Kenalog (Triamcinol one) 2020-09 0 00:00: 00 No 40mg [facility] Kenalog (Triamcinol one) Kenalog (Triamcinol one) 2020-09 0- 00:00: 00 No 40mg [facility] Kenalog (Triamcinol one) Kenalog (Triamcinol one) 2020-09 0- 00:00: 00 No 40mg [facility] Kenalog (Triamcinol one) Kenalog (Triamcinol one) 2020-09 0- 00:00: 00 No 40mg [facility] Kenalog (Triamcinol one) Kenalog (Triamcinol one) 2020-09 0-13 00:00: 00 No 40mg [facility] Kenalog (Triamcinol one) Kenalog (Triamcinol one) 2020-09 0-13 00:00: 00 No 40mg [facility] Kenalog (Triamcinol one) Kenalog (Triamcinol one) 2020-09 0-13 00:00: 00 No 40mg [facility] Kenalog (Triamcinol one) Kenalog (Triamcinol one) 2020-09 0-13 00:00: 00 No 40mg [facility] Kenalog (Triamcinol one) Kenalog (Triamcinol one) 2020-09 0-13 00:00: 00 No 40mg [facility] Kenalog (Triamcinol one) Kenalog (Triamcinol one) 2020-09 0- 00:00: 00 No 40mg [facility] Kenalog (Triamcinol one) Kenalog (Triamcinol one) 2020-09 0- 00:00: 00 No 40mg [facility] Kenalog (Triamcinol one) Kenalog (Triamcinol one) 2020-09 0- 00:00: 00 No 40mg [facility] Kenalog (Triamcinol one) Kenalog (Triamcinol one) 2020-09 0-13 00:00: 00 No 40mg [facility] Kenalog (Triamcinol one) Kenalog (Triamcinol one) 2020-09 0-13 00:00: 00 No 40mg [facility] Kenalog (Triamcinol one) Kenalog (Triamcinol one) 2020-09 0-13 00:00: 00 No 40mg [facility] Kenalog (Triamcinol one) Kenalog (Triamcinol one) 2020-09 0-13 00:00: 00 No 40mg [facility] Kenalog (Triamcinol one) Kenalog (Triamcinol one) 2020-09 0-13 00:00: 00 No 40mg [facility] Kenalog (Triamcinol one) Kenalog (Triamcinol one) 2020-09 0-13 00:00: 00 No 40mg [facility] Kenalog (Triamcinol one) Kenalog (Triamcinol one) 2020-09 0-13 00:00: 00 No 40mg [facility] Kenalog (Triamcinol one) Kenalog (Triamcinol one) 2020-09 0- 00:00: 00 No 40mg [facility] Kenalog (Triamcinol one) Kenalog (Triamcinol one) 2020-09 0- 00:00: 00 No 40mg [facility] Kenalog (Triamcinol one) Kenalog (Triamcinol one) 2020-09 0-13 00:00: 00 No 40mg [facility] Kenalog (Triamcinol one) Kenalog (Triamcinol one) 2020-09 0- 00:00: 00 No 40mg [facility] Kenalog (Triamcinol one) Kenalog (Triamcinol one) 2020-09 0 00:00: 00 No 40mg [facility] Kenalog (Triamcinol one) Kenalog (Triamcinol one) 2020-09 0-13 00:00: 00 No 40mg [facility] Kenalog (Triamcinol one) Kenalog (Triamcinol one) 2020-09 0-13 00:00: 00 No 40mg [facility] Kenalog (Triamcinol one) Kenalog (Triamcinol one) 2020-09 0-13 00:00: 00 No 40mg [facility] Kenalog (Triamcinol one) Kenalog (Triamcinol one) 2020-09 0-13 00:00: 00 No 40mg [facility] Kenalog (Triamcinol one) Kenalog (Triamcinol one) 2020-09 0-13 00:00: 00 No 40mg [facility] Kenalog (Triamcinol one) Kenalog (Triamcinol one) 2020-09 0-13 00:00: 00 No 40mg [facility] Kenalog (Triamcinol one) Kenalog (Triamcinol one) 2020-09 0-13 00:00: 00 No 40mg [facility] Kenalog (Triamcinol one) Kenalog (Triamcinol one) 2020-09 0-13 00:00: 00 No 40mg [facility] Kenalog (Triamcinol one) Kenalog (Triamcinol one) 2020-09 0-13 00:00: 00 No 40mg [facility] Kenalog (Triamcinol one) Kenalog (Triamcinol one) 2020-09 0-13 00:00: 00 No 40mg [facility] Kenalog (Triamcinol one) Kenalog (Triamcinol one) 2020-09 0-13 00:00: 00 No 40mg [facility] Kenalog (Triamcinol one) Kenalog (Triamcinol one) 2020-09 0-13 00:00: 00 No 40mg [facility] Kenalog (Triamcinol one) Kenalog (Triamcinol one) 2020-09 0-13 00:00: 00 No 40mg [facility] Kenalog (Triamcinol one) Kenalog (Triamcinol one) 2020-09 0-13 00:00: 00 No 40mg [facility] Kenalog (Triamcinol one) Kenalog (Triamcinol one) 2020-09 0-13 00:00: 00 No 40mg [facility] Benzonatate 200 MG Benzonatate 200 MG 2020-09 0-13 00:00: 00 - 00:00 :00 No 1{capsu le} TID Benzonatat e 200 MG Kenalog (Triamcinol one) Kenalog (Triamcinol one) 9 00:00: 00 No 40mg [facility] Bupivicaine Lamar Bupivicaine Lamar 0 06-26 00:00: 00 No 2.5mg [facility] Kenalog (Triamcinol one) Kenalog (Triamcinol one) 0 06-26 00:00: 00 No 40mg [facility] Bupivicaine Lamar Bupivicaine Lamar 0 06-26 00:00: 00 No 2.5mg [facility] Kenalog (Triamcinol one) Kenalog (Triamcinol one) 0 06-26 00:00: 00 No 40mg [facility] Bupivicaine Lamar Bupivicaine Lamar 0 06-26 00:00: 00 No 2.5mg [facility] Kenalog (Triamcinol one) Kenalog (Triamcinol one) 06-26 00:00: 00 No 40mg [facility] Bupivicaine Lamar Bupivicaine Lamar 0 06-26 00:00: 00 No 2.5mg [facility] Kenalog (Triamcinol one) Kenalog (Triamcinol one) 0 06-26 00:00: 00 No 40mg [facility] Bupivicaine Lamar Bupivicaine Lamar 0 06-26 00:00: 00 No 2.5mg [facility] Kenalog (Triamcinol one) Kenalog (Triamcinol one) 0 06-26 00:00: 00 No 40mg [facility] Bupivicaine Lamar Bupivicaine Lamar 0 06-26 00:00: 00 No 2.5mg [facility] Kenalog (Triamcinol one) Kenalog (Triamcinol one) 0 06-26 00:00: 00 No 40mg [facility] Bupivicaine Lamar Bupivicaine Lamar 06-26 00:00: 00 No 2.5mg [facility] Kenalog (Triamcinol one) Kenalog (Triamcinol one) 06-26 00:00: 00 No 40mg [facility] Bupivicaine Lamar Bupivicaine Lamar 0 06-26 00:00: 00 No 2.5mg [facility] Kenalog (Triamcinol one) Kenalog (Triamcinol one) 0 06-26 00:00: 00 No 40mg [facility] Bupivicaine Lamar Bupivicaine Lamar 0 06-26 00:00: 00 No 2.5mg [facility] Kenalog (Triamcinol one) Kenalog (Triamcinol one) 0 06-26 00:00: 00 No 40mg [facility] Bupivicaine Lamar Bupivicaine Lamar 0 06-26 00:00: 00 No 2.5mg [facility] Kenalog (Triamcinol one) Kenalog (Triamcinol one) 0 06-26 00:00: 00 No 40mg [facility] Bupivicaine Lamar Bupivicaine Lamar 0 06-26 00:00: 00 No 2.5mg [facility] Kenalog (Triamcinol one) Kenalog (Triamcinol one) 06-26 00:00: 00 No 40mg [facility] Bupivicaine Lamar Bupivicaine Lamar 0 06-26 00:00: 00 No 2.5mg [facility] Kenalog (Triamcinol one) Kenalog (Triamcinol one) 0 06-26 00:00: 00 No 40mg [facility] Bupivicaine Lamar Bupivicaine Lamar 2020-0 06-26 00:00: 00 No 2.5mg [facility] Kenalog (Triamcinol one) Kenalog (Triamcinol one) 06-26 00:00: 00 No 40mg [facility] Bupivicaine Lamar Bupivicaine Lamar 0 06-26 00:00: 00 No 2.5mg [facility] Kenalog (Triamcinol one) Kenalog (Triamcinol one) 06-26 00:00: 00 No 40mg [facility] Bupivicaine Lamar Bupivicaine Lamar 0 06-26 00:00: 00 No 2.5mg [facility] Kenalog (Triamcinol one) Kenalog (Triamcinol one) 06-26 00:00: 00 No 40mg [facility] Bupivicaine Lamar Bupivicaine Lamar 0 06-26 00:00: 00 No 2.5mg [facility] Kenalog (Triamcinol one) Kenalog (Triamcinol one) 06-26 00:00: 00 No 40mg [facility] Bupivicaine Lamar Bupivicaine Lamar 0 06-26 00:00: 00 No 2.5mg [facility] Kenalog (Triamcinol one) Kenalog (Triamcinol one) 0 06-26 00:00: 00 No 40mg [facility] Bupivicaine Lamar Bupivicaine Lamar 0 06-26 00:00: 00 No 2.5mg [facility] Kenalog (Triamcinol one) Kenalog (Triamcinol one) 0 06-26 00:00: 00 No 40mg [facility] Bupivicaine Lamar Bupivicaine Lamar 0 06-26 00:00: 00 No 2.5mg [facility] Kenalog (Triamcinol one) Kenalog (Triamcinol one) 0 06-26 00:00: 00 No 40mg [facility] Bupivicaine Lamar Bupivicaine Lamar 0 06-26 00:00: 00 No 2.5mg [facility] Kenalog (Triamcinol one) Kenalog (Triamcinol one) 06-26 00:00: 00 No 40mg [facility] Bupivicaine Lamar Bupivicaine Lamar 0 06-26 00:00: 00 No 2.5mg [facility] Kenalog (Triamcinol one) Kenalog (Triamcinol one) 0 06-26 00:00: 00 No 40mg [facility] Bupivicaine Lamar Bupivicaine Lamar 0 06-26 00:00: 00 No 2.5mg [facility] Kenalog (Triamcinol one) Kenalog (Triamcinol one) 06-26 00:00: 00 No 40mg [facility] Bupivicaine Lamar Bupivicaine Lamar 0 06-26 00:00: 00 No 2.5mg [facility] Kenalog (Triamcinol one) Kenalog (Triamcinol one) 06-26 00:00: 00 No 40mg [facility] Bupivicaine Lamar Bupivicaine Lamar 0 06-26 00:00: 00 No 2.5mg [facility] Kenalog (Triamcinol one) Kenalog (Triamcinol one) 06-26 00:00: 00 No 40mg [facility] Bupivicaine Lamar Bupivicaine Lamar 0 06-26 00:00: 00 No 2.5mg [facility] Kenalog (Triamcinol one) Kenalog (Triamcinol one) 0 06-26 00:00: 00 No 40mg [facility] Bupivicaine Lamar Bupivicaine Lamar 0 06-26 00:00: 00 No 2.5mg [facility] Kenalog (Triamcinol one) Kenalog (Triamcinol one) 06-26 00:00: 00 No 40mg [facility] Bupivicaine Lamar Bupivicaine Lamar 06-26 00:00: 00 No 2.5mg [facility] Kenalog (Triamcinol one) Kenalog (Triamcinol one) 06-26 00:00: 00 No 40mg [facility] Bupivicaine Lamar Bupivicaine Lamar 06-26 00:00: 00 No 2.5mg [facility] Kenalog (Triamcinol one) Kenalog (Triamcinol one) 06-26 00:00: 00 No 40mg [facility] Bupivicaine Lamar Bupivicaine Lamar 06-26 00:00: 00 No 2.5mg [facility] Kenalog (Triamcinol one) Kenalog (Triamcinol one) 06-26 00:00: 00 No 40mg [facility] Bupivicaine Lamar Bupivicaine Lamar 06-26 00:00: 00 No 2.5mg [facility] Kenalog (Triamcinol one) Kenalog (Triamcinol one) 06-26 00:00: 00 No 40mg [facility] Bupivicaine Lamar Bupivicaine Lamar 06-26 00:00: 00 No 2.5mg [facility] Kenalog (Triamcinol one) Kenalog (Triamcinol one) 06-26 00:00: 00 No 40mg [facility] Bupivicaine Lamar Bupivicaine Lamar 06-26 00:00: 00 No 2.5mg [facility] Kenalog (Triamcinol one) Kenalog (Triamcinol one) 06-26 00:00: 00 No 40mg [facility] Bupivicaine Lamar Bupivicaine Lamar 06-26 00:00: 00 No 2.5mg [facility] Kenalog (Triamcinol one) Kenalog (Triamcinol one) 06-26 00:00: 00 No 40mg [facility] Bupivicaine Lamar Bupivicaine Lamar 06-26 00:00: 00 No 2.5mg [facility] Bupivicaine Lamar Bupivicaine Lamar 0 06-26 00:00: 00 No 2.5mg [facility] Kenalog (Triamcinol one) Kenalog (Triamcinol one) 06-26 00:00: 00 No 40mg [facility] Bupivicaine Lamar Bupivicaine Lamar 06-26 00:00: 00 No 2.5mg [facility] Kenalog (Triamcinol one) Kenalog (Triamcinol one) 06-26 00:00: 00 No 40mg [facility] Bupivicaine Lamar Bupivicaine Lamar 06-26 00:00: 00 No 2.5mg [facility] Kenalog (Triamcinol one) Kenalog (Triamcinol one) 06-26 00:00: 00 No 40mg [facility] Bupivicaine Lamar Bupivicaine Lamar 0 06-26 00:00: 00 No 2.5mg [facility] Kenalog (Triamcinol one) Kenalog (Triamcinol one) 06-26 00:00: 00 No 40mg [facility] Bupivicaine Lamar Bupivicaine Lamar 0 06-26 00:00: 00 No 2.5mg [facility] Kenalog (Triamcinol one) Kenalog (Triamcinol one) 06-26 00:00: 00 No 40mg [facility] Bupivicaine Lamar Bupivicaine Lamar 0 06-26 00:00: 00 No 2.5mg [facility] Kenalog (Triamcinol one) Kenalog (Triamcinol one) 0 06-26 00:00: 00 No 40mg [facility] Bupivicaine Lamar Bupivicaine Lamar 0 06-26 00:00: 00 No 2.5mg [facility] Kenalog (Triamcinol one) Kenalog (Triamcinol one) 0 06-26 00:00: 00 No 40mg [facility] Bupivicaine Lamar Bupivicaine Lamar 0 06-26 00:00: 00 No 2.5mg [facility] Kenalog (Triamcinol one) Kenalog (Triamcinol one) 06-26 00:00: 00 No 40mg [facility] Bupivicaine Lamar Bupivicaine Lamar 0 06-26 00:00: 00 No 2.5mg [facility] Kenalog (Triamcinol one) Kenalog (Triamcinol one) 0 06-26 00:00: 00 No 40mg [facility] Bupivicaine Lamar Bupivicaine Lamar 0 06-26 00:00: 00 No 2.5mg [facility] Kenalog (Triamcinol one) Kenalog (Triamcinol one) 0 06-26 00:00: 00 No 40mg [facility] Bupivicaine Lamar Bupivicaine Lamar 0 06-26 00:00: 00 No 2.5mg [facility] Kenalog (Triamcinol one) Kenalog (Triamcinol one) 0 06-26 00:00: 00 No 40mg [facility] Bupivicaine Lamar Bupivicaine Lamar 06-26 00:00: 00 No 2.5mg [facility] Kenalog (Triamcinol one) Kenalog (Triamcinol one) 0 06-26 00:00: 00 No 40mg [facility] Bupivicaine Lamar Bupivicaine Lamar 0 06-26 00:00: 00 No 2.5mg [facility] Kenalog (Triamcinol one) Kenalog (Triamcinol one) 0 06-26 00:00: 00 No 40mg [facility] Bupivicaine Lamar Bupivicaine Lamar 0 06-26 00:00: 00 No 2.5mg [facility] Kenalog (Triamcinol one) Kenalog (Triamcinol one) 0 06-26 00:00: 00 No 40mg [facility] Bupivicaine Lamar Bupivicaine Lamar 0 06-26 00:00: 00 No 2.5mg [facility] Kenalog (Triamcinol one) Kenalog (Triamcinol one) 0 06-26 00:00: 00 No 40mg [facility] Kenalog (Triamcinol one) Kenalog (Triamcinol one) 0 06-26 00:00: 00 No 40mg [facility] Bupivicaine Lamar Bupivicaine Lamar 0 06-26 00:00: 00 No 2.5mg [facility] Kenalog (Triamcinol one) Kenalog (Triamcinol one) 0 06-26 00:00: 00 No 40mg [facility] Bupivicaine Lamar Bupivicaine Lamar 0 06-26 00:00: 00 No 2.5mg [facility] Kenalog (Triamcinol one) Kenalog (Triamcinol one) 0 06-26 00:00: 00 No 40mg [facility] Bupivicaine Lamar Bupivicaine Lamar 06-26 00:00: 00 No 2.5mg [facility] traMADol HCl 50 MG traMADol HCl 50 MG 06-26 00:00: 00 07-03 00:00 :00 No 1{table t_as_ne eded} traMADol HCl 50 MG Bupivicaine Lamar Bupivicaine Lamar 0 05-22 00:00: 00 No 2.5mg [facility] Kenalog (Triamcinol one) Kenalog (Triamcinol one) 0 05-22 00:00: 00 No 40mg [facility] Bupivicaine Lamar Bupivicaine Lamar 05-22 00:00: 00 No 2.5mg [facility] Kenalog (Triamcinol one) Kenalog (Triamcinol one) 0 05-22 00:00: 00 No 40mg [facility] Bupivicaine Lamar Bupivicaine Lamar 0 05-22 00:00: 00 No 2.5mg [facility] Kenalog (Triamcinol one) Kenalog (Triamcinol one) 05-22 00:00: 00 No 40mg [facility] Bupivicaine Lamar Bupivicaine Lamar 05-22 00:00: 00 No 2.5mg [facility] Kenalog (Triamcinol one) Kenalog (Triamcinol one) 05-22 00:00: 00 No 40mg [facility] Bupivicaine Lamar Bupivicaine Lamar 0 05-22 00:00: 00 No 2.5mg [facility] Kenalog (Triamcinol one) Kenalog (Triamcinol one) 0 05-22 00:00: 00 No 40mg [facility] Bupivicaine Lamar Bupivicaine Lamar 2020-0 05-22 00:00: 00 No 2.5mg [facility] Kenalog (Triamcinol one) Kenalog (Triamcinol one) 0 05-22 00:00: 00 No 40mg [facility] Bupivicaine Lamar Bupivicaine Lamar 0 05-22 00:00: 00 No 2.5mg [facility] Kenalog (Triamcinol one) Kenalog (Triamcinol one) 0 05-22 00:00: 00 No 40mg [facility] Bupivicaine Lamar Bupivicaine Lamar 0 05-22 00:00: 00 No 2.5mg [facility] Kenalog (Triamcinol one) Kenalog (Triamcinol one) 0 05-22 00:00: 00 No 40mg [facility] Bupivicaine Lamar Bupivicaine Lamar 0 05-22 00:00: 00 No 2.5mg [facility] Kenalog (Triamcinol one) Kenalog (Triamcinol one) 0 05-22 00:00: 00 No 40mg [facility] Bupivicaine Lamar Bupivicaine Lamar 05-22 00:00: 00 No 2.5mg [facility] Kenalog (Triamcinol one) Kenalog (Triamcinol one) 0 05-22 00:00: 00 No 40mg [facility] Bupivicaine Lamar Bupivicaine Lamar 0 05-22 00:00: 00 No 2.5mg [facility] Kenalog (Triamcinol one) Kenalog (Triamcinol one) 0 05-22 00:00: 00 No 40mg [facility] Bupivicaine Lamar Bupivicaine Lamar 2020-0 05-22 00:00: 00 No 2.5mg [facility] Kenalog (Triamcinol one) Kenalog (Triamcinol one) 0 05-22 00:00: 00 No 40mg [facility] Bupivicaine Lamar Bupivicaine Lamar 0 05-22 00:00: 00 No 2.5mg [facility] Kenalog (Triamcinol one) Kenalog (Triamcinol one) 0 05-22 00:00: 00 No 40mg [facility] Bupivicaine Lamar Bupivicaine Lamar 0 05-22 00:00: 00 No 2.5mg [facility] Kenalog (Triamcinol one) Kenalog (Triamcinol one) 0 05-22 00:00: 00 No 40mg [facility] Bupivicaine Lamar Bupivicaine Lamar 0 05-22 00:00: 00 No 2.5mg [facility] Kenalog (Triamcinol one) Kenalog (Triamcinol one) 0 05-22 00:00: 00 No 40mg [facility] Bupivicaine Lamar Bupivicaine Lamar 2020-0 05-22 00:00: 00 No 2.5mg [facility] Kenalog (Triamcinol one) Kenalog (Triamcinol one) 0 05-22 00:00: 00 No 40mg [facility] Bupivicaine Lamar Bupivicaine Lamar 2020-0 05-22 00:00: 00 No 2.5mg [facility] Kenalog (Triamcinol one) Kenalog (Triamcinol one) 0 05-22 00:00: 00 No 40mg [facility] Bupivicaine Lamar Bupivicaine Lamar 2020-0 05-22 00:00: 00 No 2.5mg [facility] Kenalog (Triamcinol one) Kenalog (Triamcinol one) 0 05-22 00:00: 00 No 40mg [facility] Bupivicaine Lamar Bupivicaine Lamar 2020-05-22 00:00: 00 No 2.5mg [facility] Kenalog (Triamcinol one) Kenalog (Triamcinol one) 0 05-22 00:00: 00 No 40mg [facility] Bupivicaine Lamar Bupivicaine Lamar 0 05-22 00:00: 00 No 2.5mg [facility] Kenalog (Triamcinol one) Kenalog (Triamcinol one) 0 05-22 00:00: 00 No 40mg [facility] Bupivicaine Lamar Bupivicaine Lamar 0 05-22 00:00: 00 No 2.5mg [facility] Kenalog (Triamcinol one) Kenalog (Triamcinol one) 0 05-22 00:00: 00 No 40mg [facility] Bupivicaine Lamar Bupivicaine Lamar 0 05-22 00:00: 00 No 2.5mg [facility] Kenalog (Triamcinol one) Kenalog (Triamcinol one) 0 05-22 00:00: 00 No 40mg [facility] Bupivicaine Lamar Bupivicaine Lamar 0 05-22 00:00: 00 No 2.5mg [facility] Kenalog (Triamcinol one) Kenalog (Triamcinol one) 0 05-22 00:00: 00 No 40mg [facility] Bupivicaine Lamar Bupivicaine Lamar 2020-0 05-22 00:00: 00 No 2.5mg [facility] Kenalog (Triamcinol one) Kenalog (Triamcinol one) 0 05-22 00:00: 00 No 40mg [facility] Bupivicaine Lamar Bupivicaine Lamar 2020-0 8 00:00: 00 No 2.5mg [facility] Kenalog (Triamcinol one) Kenalog (Triamcinol one) 0 05-22 00:00: 00 No 40mg [facility] Bupivicaine Lamar Bupivicaine Lamar 0 05-22 00:00: 00 No 2.5mg [facility] Kenalog (Triamcinol one) Kenalog (Triamcinol one) 0 05-22 00:00: 00 No 40mg [facility] Bupivicaine Lamar Bupivicaine Lamar 0 05-22 00:00: 00 No 2.5mg [facility] Kenalog (Triamcinol one) Kenalog (Triamcinol one) 0 05-22 00:00: 00 No 40mg [facility] Bupivicaine Lamar Bupivicaine Lamar 0 05-22 00:00: 00 No 2.5mg [facility] Kenalog (Triamcinol one) Kenalog (Triamcinol one) 0 05-22 00:00: 00 No 40mg [facility] Bupivicaine Lamar Bupivicaine Lamar 0 05-22 00:00: 00 No 2.5mg [facility] Kenalog (Triamcinol one) Kenalog (Triamcinol one) 0 05-22 00:00: 00 No 40mg [facility] Bupivicaine Lamar Bupivicaine Lamar 0 05-22 00:00: 00 No 2.5mg [facility] Kenalog (Triamcinol one) Kenalog (Triamcinol one) 0 05-22 00:00: 00 No 40mg [facility] Bupivicaine Lamar Bupivicaine Lamar 0 05-22 00:00: 00 No 2.5mg [facility] Kenalog (Triamcinol one) Kenalog (Triamcinol one) 0 8 00:00: 00 No 40mg [facility] Bupivicaine Lamar Bupivicaine Lamar 0 05-22 00:00: 00 No 2.5mg [facility] Kenalog (Triamcinol one) Kenalog (Triamcinol one) 0 05-22 00:00: 00 No 40mg [facility] Bupivicaine Lamar Bupivicaine Lamar 0 05-22 00:00: 00 No 2.5mg [facility] Kenalog (Triamcinol one) Kenalog (Triamcinol one) 0 05-22 00:00: 00 No 40mg [facility] Bupivicaine Lamar Bupivicaine Lamar 0 05-22 00:00: 00 No 2.5mg [facility] Kenalog (Triamcinol one) Kenalog (Triamcinol one) 0 05-22 00:00: 00 No 40mg [facility] Bupivicaine Lamar Bupivicaine Lamar 0 05-22 00:00: 00 No 2.5mg [facility] Kenalog (Triamcinol one) Kenalog (Triamcinol one) 0 05-22 00:00: 00 No 40mg [facility] Bupivicaine Lamar Bupivicaine Lamar 2020-0 05-22 00:00: 00 No 2.5mg [facility] Kenalog (Triamcinol one) Kenalog (Triamcinol one) 0 05-22 00:00: 00 No 40mg [facility] Bupivicaine Lamar Bupivicaine Lamar 2020-0 05-22 00:00: 00 No 2.5mg [facility] Kenalog (Triamcinol one) Kenalog (Triamcinol one) 0 05-22 00:00: 00 No 40mg [facility] Bupivicaine Lamar Bupivicaine Lamar 2020-0 05-22 00:00: 00 No 2.5mg [facility] Kenalog (Triamcinol one) Kenalog (Triamcinol one) 0 05-22 00:00: 00 No 40mg [facility] Bupivicaine Lamar Bupivicaine Lamar 0 05-22 00:00: 00 No 2.5mg [facility] Kenalog (Triamcinol one) Kenalog (Triamcinol one) 0 05-22 00:00: 00 No 40mg [facility] Bupivicaine Lamar Bupivicaine Lamar 05-22 00:00: 00 No 2.5mg [facility] Kenalog (Triamcinol one) Kenalog (Triamcinol one) 05-22 00:00: 00 No 40mg [facility] Bupivicaine Lamar Bupivicaine Lamar 0 05-22 00:00: 00 No 2.5mg [facility] Kenalog (Triamcinol one) Kenalog (Triamcinol one) 0 05-22 00:00: 00 No 40mg [facility] Bupivicaine Lamar Bupivicaine Lamar 0 05-22 00:00: 00 No 2.5mg [facility] Kenalog (Triamcinol one) Kenalog (Triamcinol one) 0 05-22 00:00: 00 No 40mg [facility] Bupivicaine Lamar Bupivicaine Lamar 0 05-22 00:00: 00 No 2.5mg [facility] Kenalog (Triamcinol one) Kenalog (Triamcinol one) 0 05-22 00:00: 00 No 40mg [facility] Bupivicaine Lamar Bupivicaine Lamar 0 05-22 00:00: 00 No 2.5mg [facility] Kenalog (Triamcinol one) Kenalog (Triamcinol one) 0 05-22 00:00: 00 No 40mg [facility] Bupivicaine Lamar Bupivicaine Lamar 0 05-22 00:00: 00 No 2.5mg [facility] Kenalog (Triamcinol one) Kenalog (Triamcinol one) 0 05-22 00:00: 00 No 40mg [facility] Bupivicaine Lamar Bupivicaine Lamar 0 05-22 00:00: 00 No 2.5mg [facility] Kenalog (Triamcinol one) Kenalog (Triamcinol one) 0 05-22 00:00: 00 No 40mg [facility] Bupivicaine Lamar Bupivicaine Lamar 0 05-22 00:00: 00 No 2.5mg [facility] Kenalog (Triamcinol one) Kenalog (Triamcinol one) 0 05-22 00:00: 00 No 40mg [facility] Bupivicaine Lamar Bupivicaine Lamar 0 05-22 00:00: 00 No 2.5mg [facility] Kenalog (Triamcinol one) Kenalog (Triamcinol one) 0 05-22 00:00: 00 No 40mg [facility] Bupivicaine Lamar Bupivicaine Lamar 0 05-22 00:00: 00 No 2.5mg [facility] Kenalog (Triamcinol one) Kenalog (Triamcinol one) 0 05-22 00:00: 00 No 40mg [facility] Bupivicaine Lamar Bupivicaine Lamar 2020-0 05-22 00:00: 00 No 2.5mg [facility] Kenalog (Triamcinol one) Kenalog (Triamcinol one) 0 05-22 00:00: 00 No 40mg [facility] Bupivicaine Lamar Bupivicaine Lamar 2020-0 05-22 00:00: 00 No 2.5mg [facility] Kenalog (Triamcinol one) Kenalog (Triamcinol one) 05-22 00:00: 00 No 40mg [facility] Bupivicaine Lamar Bupivicaine Lamar 05-22 00:00: 00 No 2.5mg [facility] Kenalog (Triamcinol one) Kenalog (Triamcinol one) 05-22 00:00: 00 No 40mg [facility] atorvastati n 80 mg tablet 01-27 00:00: 00 Yes 80mg Take 1 tablet by mouth daily. [facility] pantoprazol e 40 mg EC tablet 01-27 00:00: 00 Yes 40mg Take 1 tablet by mouth daily. [facility] isosorbide mononitrate 30 mg 24 hr tablet 01-27 00:00: 00 Yes 30mg Take 1 tablet by mouth daily. [facility] atorvastati n 80 mg tablet 01-27 00:00: 00 Yes 80mg Take 1 tablet by mouth daily. [facility] pantoprazol e 40 mg EC tablet 01-27 00:00: 00 Yes 40mg Take 1 tablet by mouth daily. [facility] isosorbide mononitrate 30 mg 24 hr tablet 01-27 00:00: 00 Yes 30mg Take 1 tablet by mouth daily. [facility] atorvastati n 80 mg tablet 01-27 00:00: 00 Yes 80mg Take 1 tablet by mouth daily. [facility] pantoprazol e 40 mg EC tablet 01-27 00:00: 00 Yes 40mg Take 1 tablet by mouth daily. [facility] isosorbide mononitrate 30 mg 24 hr tablet 01-27 00:00: 00 Yes 30mg Take 1 tablet by mouth daily. [facility] atorvastati n 80 mg tablet 01-27 00:00: 00 Yes 80mg Take 1 tablet by mouth daily. [facility] pantoprazol e 40 mg EC tablet 01-27 00:00: 00 Yes 40mg Take 1 tablet by mouth daily. [facility] isosorbide mononitrate 30 mg 24 hr tablet 01-27 00:00: 00 Yes 30mg Take 1 tablet by mouth daily. [facility] atorvastati n 80 mg tablet 01-27 00:00: 00 Yes 80mg Take 1 tablet by mouth daily. [facility] pantoprazol e 40 mg EC tablet 01-27 00:00: 00 Yes 40mg Take 1 tablet by mouth daily. [facility] isosorbide mononitrate 30 mg 24 hr tablet 01-27 00:00: 00 Yes 30mg Take 1 tablet by mouth daily. [facility] atorvastati n 80 mg tablet 01-27 00:00: 00 Yes 80mg Take 1 tablet by mouth daily. [facility] pantoprazol e 40 mg EC tablet 01-27 00:00: 00 Yes 40mg Take 1 tablet by mouth daily. [facility] isosorbide mononitrate 30 mg 24 hr tablet 01-27 00:00: 00 Yes 30mg Take 1 tablet by mouth daily. [facility] atorvastati n 80 mg tablet 01-27 00:00: 00 Yes 80mg Take 1 tablet by mouth daily. [facility] pantoprazol e 40 mg EC tablet 01-27 00:00: 00 Yes 40mg Take 1 tablet by mouth daily. [facility] isosorbide mononitrate 30 mg 24 hr tablet 01-27 00:00: 00 Yes 30mg Take 1 tablet by mouth daily. [facility] metoprolol succinate XL 50 mg 24 hr tablet 01-26 00:00: 00 Yes 50mg Take 1 tablet by mouth 2 (two) times daily. [facility] aspirin 81 mg chewable tablet 01-26 00:00: 00 Yes 81mg Take 1 tablet by mouth daily. [facility] lisinopril 2.5 mg tablet 01-26 00:00: 00 Yes 2.5mg Take 1 tablet by mouth daily. [facility] zolpidem 5 mg tablet 01-26 00:00: 00 Yes 5mg Take 1 tablet by mouth at bedtime as needed for Insomnia. [facility] metoprolol succinate XL 50 mg 24 hr tablet 01-26 00:00: 00 Yes 50mg Take 1 tablet by mouth 2 (two) times daily. [facility] aspirin 81 mg chewable tablet 01-26 00:00: 00 Yes 81mg Take 1 tablet by mouth daily. [facility] lisinopril 2.5 mg tablet 01-26 00:00: 00 Yes 2.5mg Take 1 tablet by mouth daily. [facility] zolpidem 5 mg tablet 01-26 00:00: 00 Yes 5mg Take 1 tablet by mouth at bedtime as needed for Insomnia. [facility] aspirin 81 mg chewable tablet 01-26 00:00: 00 Yes 81mg Take 1 tablet by mouth daily. [facility] lisinopril 2.5 mg tablet 01-26 00:00: 00 Yes 2.5mg Take 1 tablet by mouth daily. [facility] aspirin 81 mg chewable tablet 01-26 00:00: 00 Yes 81mg Take 1 tablet by mouth daily. [facility] lisinopril 2.5 mg tablet 01-26 00:00: 00 Yes 2.5mg Take 1 tablet by mouth daily. [facility] aspirin 81 mg chewable tablet 01-26 00:00: 00 Yes 81mg Take 1 tablet by mouth daily. [facility] lisinopril 2.5 mg tablet 01-26 00:00: 00 Yes 2.5mg Take 1 tablet by mouth daily. [facility] aspirin 81 mg chewable tablet 01-26 00:00: 00 Yes 81mg Take 1 tablet by mouth daily. [facility] lisinopril 2.5 mg tablet 01-26 00:00: 00 Yes 2.5mg Take 1 tablet by mouth daily. [facility] aspirin 81 mg chewable tablet 01-26 00:00: 00 Yes 81mg Take 1 tablet by mouth daily. [facility] lisinopril 2.5 mg tablet 01-26 00:00: 00 Yes 2.5mg Take 1 tablet by mouth daily. [facility] metoprolol succinate XL 50 mg 24 hr tablet 01-26 00:00: 00 05-24 00:00 :00 No 50mg Take 1 tablet by mouth 2 (two) times daily. [facility] zolpidem 5 mg tablet 01-26 00:00: 00 05-24 00:00 :00 No 5mg Take 1 tablet by mouth at bedtime as needed for Insomnia. [facility] sulindac (CLINORIL) 200 mg tablet 05-13 00:00: 00 Yes 200mg Take 1 tablet by mouth 2 (two) times daily. [facility] sulindac (CLINORIL) 200 mg tablet 05-13 00:00: 00 Yes 200mg Take 1 tablet by mouth 2 (two) times daily. [facility] sulindac (CLINORIL) 200 mg tablet 05-13 00:00: 00 05-24 00:00 :00 No 200mg Take 1 tablet by mouth 2 (two) times daily. [facility] Lisinopril 2.5 MG Lisinopril 2.5 MG [...] No 1{table t} QD Lisinopril 20 MG Metoprolol Succinate ER 50 MG Metoprolol Succinate ER 50 MG No 1{table t} QD Metoprolol Succinate ER 50 MG Albuterol Sulfate HFA 108 (90 Base) MCG/ACT Albuterol Sulfate HFA 108 (90 Base) MCG/ACT No 1{puff_ as_need ed} 6xD Albuterol Sulfate HFA 108 (90 Base) MCG/ACT Montelukast Sodium 10 MG Montelukast Sodium 10 MG No Montelukas t Sodium 10 MG Gabapentin 800 MG Gabapentin 800 MG No QD Gabapentin 800 MG Lisinopril 20 MG Lisinopril 20 MG No 1{table t} QD Lisinopril 20 MG Breo Ellipta 50-25 MCG/INH Breo Ellipta 50-25 MCG/INH No 1{puff} QD Breo Ellipta 50-25 MCG/INH Vitamin C Vitamin C No Vitamin C Atorvastati n Calcium 80 MG Atorvastati n Calcium 80 MG No 1{table t} QD Atorvastat in Calcium 80 MG Aspirin Adult Low Strength 81 MG Aspirin Adult Low Strength 81 MG No 1{table t} QD Aspirin Adult Low Strength 81 MG traMADol HCl ER 200 MG traMADol HCl ER 200 MG No 1{table t} QD traMADol HCl ER 200 MG Metoprolol Succinate ER 50 MG Metoprolol Succinate ER 50 MG No 1{table t} QD Metoprolol Succinate ER 50 MG Albuterol Sulfate HFA 108 (90 Base) MCG/ACT Albuterol Sulfate HFA 108 (90 Base) MCG/ACT No 1{puff_ as_need ed} 6xD Albuterol Sulfate HFA 108 (90 Base) MCG/ACT Montelukast Sodium 10 MG Montelukast Sodium 10 MG No Montelukas t Sodium 10 MG Gabapentin 800 MG Gabapentin 800 MG No QD Gabapentin 800 MG Lisinopril 20 MG Lisinopril 20 MG No 1{table t} QD Lisinopril 20 MG Breo Ellipta 50-25 MCG/INH Breo Ellipta 50-25 MCG/INH No 1{puff} QD Breo Ellipta 50-25 MCG/INH Vitamin C Vitamin C No Vitamin C Atorvastati n Calcium 80 MG Atorvastati n Calcium 80 MG No 1{table t} QD Atorvastat in Calcium 80 MG Aspirin Adult Low Strength 81 MG Aspirin Adult Low Strength 81 MG No 1{table t} QD Aspirin Adult Low Strength 81 MG traMADol HCl ER 200 MG traMADol HCl ER 200 MG No 1{table t} QD traMADol HCl ER 200 MG Metoprolol Succinate ER 50 MG Metoprolol Succinate ER 50 MG No 1{table t} QD Metoprolol Succinate ER 50 MG Albuterol Sulfate HFA 108 (90 Base) MCG/ACT Albuterol Sulfate HFA 108 (90 Base) MCG/ACT No 1{puff_ as_need ed} 6xD Albuterol Sulfate HFA 108 (90 Base) MCG/ACT Montelukast Sodium 10 MG Montelukast Sodium 10 MG No Montelukas t Sodium 10 MG Gabapentin 800 MG Gabapentin 800 MG No QD Gabapentin 800 MG Lisinopril 20 MG Lisinopril 20 MG No 1{table t} QD Lisinopril 20 MG Breo Ellipta 50-25 MCG/INH Breo Ellipta 50-25 MCG/INH No 1{puff} QD Breo Ellipta 50-25 MCG/INH Vitamin C Vitamin C No Vitamin C Atorvastati n Calcium 80 MG Atorvastati n Calcium 80 MG No 1{table t} QD Atorvastat in Calcium 80 MG Vitamin C Vitamin C No Vitamin C Aspirin Adult Low Strength 81 MG Aspirin Adult Low Strength 81 MG No 1{table t} QD Aspirin Adult Low Strength 81 MG traMADol HCl ER 200 MG traMADol HCl ER 200 MG No 1{table t} QD traMADol HCl ER 200 MG Lisinopril 2.5 MG Lisinopril 2.5 MG No Lisinopril 2.5 MG EpiPen EpiPen No EpiPen Vitamin C Vitamin C No Vitamin C Albuterol Sulfate HFA 108 (90 Base) MCG/ACT Albuterol Sulfate HFA 108 (90 Base) MCG/ACT No 1{puff_ as_need ed} 6xD Albuterol Sulfate HFA 108 (90 Base) MCG/ACT Montelukast Sodium 10 MG Montelukast Sodium 10 MG No Montelukas t Sodium 10 MG traMADol HCl ER 200 MG traMADol HCl ER 200 MG No 1{table t} QD traMADol HCl ER 200 MG Gabapentin 800 MG Gabapentin 800 MG No QD Gabapentin 800 MG Atorvastati n Calcium 40 MG Atorvastati n Calcium 40 MG No Atorvastat in Calcium 40 MG Aspirin Adult Low Strength 81 MG Aspirin Adult Low Strength 81 MG No 1{table t} QD Aspirin Adult Low Strength 81 MG Metoprolol Succinate ER 50 MG Metoprolol Succinate ER 50 MG No Metoprolol Succinate ER 50 MG Lisinopril 20 MG Lisinopril 20 MG No 1{table t} QD Lisinopril 20 MG Breo Ellipta 50-25 MCG/INH Breo Ellipta 50-25 MCG/INH No 1{puff} QD Breo Ellipta 50-25 MCG/INH Metoprolol Succinate ER 50 MG Metoprolol Succinate ER 50 MG No Metoprolol Succinate ER 50 MG Atorvastati n Calcium 40 MG Atorvastati n Calcium 40 MG No Atorvastat in Calcium 40 MG Vitamin C Vitamin C No Vitamin C Albuterol Sulfate HFA 108 (90 Base) MCG/ACT Albuterol Sulfate HFA 108 (90 Base) MCG/ACT No 1{puff_ as_need ed} 6xD Albuterol Sulfate HFA 108 (90 Base) MCG/ACT Atorvastati n Calcium 40 MG Atorvastati n Calcium 40 MG No 1{table t} QD Atorvastat in Calcium 40 MG Montelukast Sodium 10 MG Montelukast Sodium 10 MG No Montelukas t Sodium 10 MG traMADol HCl ER 200 MG traMADol HCl ER 200 MG No 1{table t} QD traMADol HCl ER 200 MG Gabapentin 800 MG Gabapentin 800 MG No QD Gabapentin 800 MG Atorvastati n Calcium 40 MG Atorvastati n Calcium 40 MG No Atorvastat in Calcium 40 MG Aspirin Adult Low Strength 81 MG Aspirin Adult Low Strength 81 MG No 1{table t} QD Aspirin Adult Low Strength 81 MG Metoprolol Succinate ER 50 MG Metoprolol Succinate ER 50 MG No Metoprolol Succinate ER 50 MG Lisinopril 20 MG Lisinopril 20 MG No 1{table t} QD Lisinopril 20 MG Breo Ellipta 50-25 MCG/INH Breo Ellipta 50-25 MCG/INH No 1{puff} QD Breo Ellipta 50-25 MCG/INH traMADol HCl 50 MG traMADol HCl 50 MG No 2{table ts} traMADol HCl 50 MG Iron Iron No Iron Atorvastati n Calcium 40 MG Atorvastati n Calcium 40 MG No Atorvastat in Calcium 40 MG Metoprolol Succinate ER 50 MG Metoprolol Succinate ER 50 MG No 1{table t} BID Metoprolol Succinate ER 50 MG Aspirin Adult Low Strength 81 MG Aspirin Adult Low Strength 81 MG No 1{table t} QD Aspirin Adult Low Strength 81 MG Lisinopril 20 MG Lisinopril 20 MG No 1{table t} QD Lisinopril 20 MG Breo Ellipta 50-25 MCG/INH Breo Ellipta 50-25 MCG/INH No 1{puff} QD Breo Ellipta 50-25 MCG/INH traMADol HCl ER 200 MG traMADol HCl ER 200 MG No 1{table t} QD traMADol HCl ER 200 MG Vitamin C Vitamin C No Vitamin C Montelukast Sodium 10 MG Montelukast Sodium 10 MG No Montelukas t Sodium 10 MG Metoprolol Succinate ER 50 MG Metoprolol Succinate ER 50 MG No Metoprolol Succinate ER 50 MG Gabapentin 800 MG Gabapentin 800 MG No QD Gabapentin 800 MG Albuterol Sulfate HFA 108 (90 Base) MCG/ACT Albuterol Sulfate HFA 108 (90 Base) MCG/ACT No 1{puff_ as_need ed} 6xD Albuterol Sulfate HFA 108 (90 Base) MCG/ACT Vitamin D3 125 MCG (5000 UT) Vitamin D3 125 MCG (5000 UT) No 1{table t} QD Vitamin D3 125 MCG (5000 UT) Lisinopril 2.5 MG Lisinopril 2.5 MG No 1{table t} QD Lisinopril 2.5 MG tiZANidine HCl tiZANidine HCl No tiZANidine HCl Magnesium Magnesium No Magnesium Atorvastati n Calcium 40 MG Atorvastati n Calcium 40 MG No Atorvastat in Calcium 40 MG Aspirin Adult Low Strength 81 MG Aspirin Adult Low Strength 81 MG No 1{table t} QD Aspirin Adult Low Strength 81 MG Lisinopril 20 MG Lisinopril 20 MG No 1{table t} QD Lisinopril 20 MG Breo Ellipta 50-25 MCG/INH Breo Ellipta 50-25 MCG/INH No 1{puff} QD Breo Ellipta 50-25 MCG/INH traMADol HCl ER 200 MG traMADol HCl ER 200 MG No 1{table t} QD traMADol HCl ER 200 MG Vitamin C Vitamin C No Vitamin C Montelukast Sodium 10 MG Montelukast Sodium 10 MG No Montelukas t Sodium 10 MG Metoprolol Succinate ER 50 MG Metoprolol Succinate ER 50 MG No Metoprolol Succinate ER 50 MG Gabapentin 800 MG Gabapentin 800 MG No QD Gabapentin 800 MG Albuterol Sulfate HFA 108 (90 Base) MCG/ACT Albuterol Sulfate HFA 108 (90 Base) MCG/ACT No 1{puff_ as_need ed} 6xD Albuterol Sulfate HFA 108 (90 Base) MCG/ACT Atorvastati n Calcium 40 MG Atorvastati n Calcium 40 MG No Atorvastat in Calcium 40 MG Aspirin Adult Low Strength 81 MG Aspirin Adult Low Strength 81 MG No 1{table t} QD Aspirin Adult Low Strength 81 MG Lisinopril 20 MG Lisinopril 20 MG No 1{table t} QD Lisinopril 20 MG Breo Ellipta 50-25 MCG/INH Breo Ellipta 50-25 MCG/INH No 1{puff} QD Breo Ellipta 50-25 MCG/INH traMADol HCl ER 200 MG traMADol HCl ER 200 MG No 1{table t} QD traMADol HCl ER 200 MG Vitamin C Vitamin C No Vitamin C Montelukast Sodium 10 MG Montelukast Sodium 10 MG No Montelukas t Sodium 10 MG Metoprolol Succinate ER 50 MG Metoprolol Succinate ER 50 MG No Metoprolol Succinate ER 50 MG Gabapentin 800 MG Gabapentin 800 MG No QD Gabapentin 800 MG Albuterol Sulfate HFA 108 (90 Base) MCG/ACT Albuterol Sulfate HFA 108 (90 Base) MCG/ACT No 1{puff_ as_need ed} 6xD Albuterol Sulfate HFA 108 (90 Base) MCG/ACT Atorvastati n Calcium 40 MG Atorvastati n Calcium 40 MG No Atorvastat in Calcium 40 MG Aspirin Adult Low Strength 81 MG Aspirin Adult Low Strength 81 MG No 1{table t} QD Aspirin Adult Low Strength 81 MG Lisinopril 20 MG Lisinopril 20 MG No 1{table t} QD Lisinopril 20 MG Breo Ellipta 50-25 MCG/INH Breo Ellipta 50-25 MCG/INH No 1{puff} QD Breo Ellipta 50-25 MCG/INH traMADol HCl ER 200 MG traMADol HCl ER 200 MG No 1{table t} QD traMADol HCl ER 200 MG Vitamin C Vitamin C No Vitamin C Montelukast Sodium 10 MG Montelukast Sodium 10 MG No Montelukas t Sodium 10 MG Vitamin C Vitamin C No Vitamin C Metoprolol Succinate ER 50 MG Metoprolol Succinate ER 50 MG No Metoprolol Succinate ER 50 MG Gabapentin 800 MG Gabapentin 800 MG No QD Gabapentin 800 MG Albuterol Sulfate HFA 108 (90 Base) MCG/ACT Albuterol Sulfate HFA 108 (90 Base) MCG/ACT No 1{puff_ as_need ed} 6xD Albuterol Sulfate HFA 108 (90 Base) MCG/ACT Lisinopril 2.5 MG Lisinopril 2.5 MG No Lisinopril 2.5 MG EpiPen EpiPen No EpiPen Atorvastati n Calcium 40 MG Atorvastati n Calcium 40 MG No Atorvastat in Calcium 40 MG Aspirin Adult Low Strength 81 MG Aspirin Adult Low Strength 81 MG No 1{table t} QD Aspirin Adult Low Strength 81 MG Lisinopril 20 MG Lisinopril 20 MG No 1{table t} QD Lisinopril 20 MG Breo Ellipta 50-25 MCG/INH Breo Ellipta 50-25 MCG/INH No 1{puff} QD Breo Ellipta 50-25 MCG/INH traMADol HCl ER 200 MG traMADol HCl ER 200 MG No 1{table t} QD traMADol HCl ER 200 MG Vitamin C Vitamin C No Vitamin C Montelukast Sodium 10 MG Montelukast Sodium 10 MG No Montelukas t Sodium 10 MG Metoprolol Succinate ER 50 MG Metoprolol Succinate ER 50 MG No Metoprolol Succinate ER 50 MG Metoprolol Succinate ER 50 MG Metoprolol Succinate ER 50 MG No Metoprolol Succinate ER 50 MG Gabapentin 800 MG Gabapentin 800 MG No QD Gabapentin 800 MG Albuterol Sulfate HFA 108 (90 Base) MCG/ACT Albuterol Sulfate HFA 108 (90 Base) MCG/ACT No 1{puff_ as_need ed} 6xD Albuterol Sulfate HFA 108 (90 Base) MCG/ACT Atorvastati n Calcium 40 MG Atorvastati n [...] Kenalog (Triamcinolone) Kenalog (Triamcinolone) 2021-07-11 09:32:00 Completed [facility] Bupivicaine Lamar Bupivicaine Lamar 2021-06-26 09:38:00 Completed [facility] Kenalog (Triamcinolone) Kenalog (Triamcinolone) 2021-06-26 09:38:00 Completed [facility] Bupivicaine Lamar Bupivicaine Lamar 2021-06-26 09:38:00 Completed [facility] Kenalog (Triamcinolone) Kenalog (Triamcinolone) 2021-06-26 09:38:00 Completed [facility] Bupivicaine Lamar Bupivicaine Lamar 2021-06-26 09:38:00 Completed [facility] Kenalog (Triamcinolone) Kenalog (Triamcinolone) 2021-06-26 09:38:00 Completed [facility] Bupivicaine Lamar Bupivicaine Lamar 2021-06-26 09:38:00 Completed [facility] Kenalog (Triamcinolone) Kenalog (Triamcinolone) 2021-06-26 09:38:00 Completed [facility] Bupivicaine Lamar Bupivicaine Lamar 2021-05-22 08:55:00 Completed [facility] Kenalog (Triamcinolone) Kenalog (Triamcinolone) 2021-05-22 08:55:00 Completed [facility] Bupivicaine Lamar Bupivicaine Lamar 2021-05-22 08:55:00 Completed [facility] Kenalog (Triamcinolone) Kenalog (Triamcinolone) 2021-05-22 08:55:00 Completed [facility] Bupivicaine Lamar Bupivicaine Lamar 2021-05-22 08:55:00 Completed [facility] Kenalog (Triamcinolone) Kenalog (Triamcinolone) 2021-05-22 08:55:00 Completed [facility] Bupivicaine Lamar Bupivicaine Lamar 2021-05-22 08:55:00 Completed [facility] Kenalog (Triamcinolone) Kenalog (Triamcinolone) 2021-05-22 08:55:00 Completed [facility] Pneumococcal Polysaccharide, PPSV23 (PNEUMOVAX) 2018-01-26 00:00:00 Completed [facility] Pneumococcal Polysaccharide, PPSV23 (PNEUMOVAX) 2018-01-26 00:00:00 Completed [facility] Pneumococcal Polysaccharide, PPSV23 (PNEUMOVAX) 2018-01-26 00:00:00 Completed [facility] Pneumococcal Polysaccharide, PPSV23 (PNEUMOVAX) 2018-01-26 00:00:00 Completed [facility] Pneumococcal Polysaccharide, PPSV23 (PNEUMOVAX) 2018-01-26 00:00:00 Completed [facility] Pneumococcal Polysaccharide, PPSV23 (PNEUMOVAX) 2018-01-26 00:00:00 Completed [facility] Pneumococcal Polysaccharide, PPSV23 (PNEUMOVAX) 2018-01-26 00:00:00 Completed [facility] Adacel (Tdap) Adacel (Tdap) 2015-01-11 14:09:00 Completed [facility] Adacel (Tdap) Adacel (Tdap) 2015-01-11 14:09:00 Completed [facility] Adacel (Tdap) Adacel (Tdap) 2015-01-11 14:09:00 Completed [facility] Adacel (Tdap) Adacel (Tdap) 2015-01-11 14:09:00 Completed [facility] Adacel (Tdap) Adacel (Tdap) 2015-01-11 14:09:00 Completed [facility] Adacel (Tdap) Adacel (Tdap) 2015-01-11 14:09:00 Completed [facility] Adacel (Tdap) Adacel (Tdap) 2015-01-11 14:09:00 Completed [facility] Adacel (Tdap) Adacel (Tdap) 2015-01-11 14:09:00 Completed [facility] Adacel (Tdap) Adacel (Tdap) 2015-01-11 14:09:00 Completed [facility] Adacel (Tdap) Adacel (Tdap) 2015-01-11 14:09:00 Completed [facility] Adacel (Tdap) Adacel (Tdap) 2015-01-11 14:09:00 Completed [facility] Adacel (Tdap) Adacel (Tdap) 2015-01-11 14:09:00 Completed [facility] Adacel (Tdap) Adacel (Tdap) 2015-01-11 14:09:00 Completed [facility] Adacel (Tdap) Adacel (Tdap) 2015-01-11 14:09:00 Completed [facility] Adacel (Tdap) Adacel (Tdap) 2015-01-11 14:09:00 Completed [facility] Adacel (Tdap) Adacel (Tdap) 2015-01-11 14:09:00 Completed [facility] Adacel (Tdap) Adacel (Tdap) 2015-01-11 14:09:00 Completed [facility] Adacel (Tdap) Adacel (Tdap) 2015-01-11 14:09:00 Completed [facility] Adacel (Tdap) Adacel (Tdap) 2015-01-11 14:09:00 Completed [facility] Adacel (Tdap) Adacel (Tdap) 2015-01-11 14:09:00 Completed [facility] Adacel (Tdap) Adacel (Tdap) 2015-01-11 14:09:00 Completed [facility] Adacel (Tdap) Adacel (Tdap) 2015-01-11 14:09:00 Completed [facility] Adacel (Tdap) Adacel (Tdap) 2015-01-11 14:09:00 Completed [facility] Adacel (Tdap) Adacel (Tdap) 2015-01-11 14:09:00 Completed [facility] Adacel (Tdap) Adacel (Tdap) 2015-01-11 14:09:00 Completed [facility] Adacel (Tdap) Adacel (Tdap) Unknown [facility] Adacel (Tdap) Adacel (Tdap) Unknown Completed [facility] Adacel (Tdap) Adacel (Tdap) Unknown Completed [facility] Adacel (Tdap) Adacel (Tdap) Unknown Completed [facility] Adacel (Tdap) Adacel (Tdap) Unknown Completed [facility] Adacel (Tdap) Adacel (Tdap) Unknown Completed [facility] Adacel (Tdap) Adacel (Tdap) Unknown Completed [facility] Adacel (Tdap) Adacel (Tdap) Unknown Completed [facility] Adacel (Tdap) Adacel (Tdap) Unknown Completed [facility] Adacel (Tdap) Adacel (Tdap) Unknown Completed [facility] Adacel (Tdap) Adacel (Tdap) Unknown Completed [facility] Adacel (Tdap) Adacel (Tdap) Unknown Completed [facility] Adacel (Tdap) Adacel (Tdap) Unknown Completed [facility] Adacel (Tdap) Adacel (Tdap) Unknown Completed [facility] Adacel (Tdap) Adacel (Tdap) Unknown Completed [facility] Adacel (Tdap) Adacel (Tdap) Unknown Completed [facility] Adacel (Tdap) Adacel (Tdap) Unknown Completed [facility] Adacel (Tdap) Adacel (Tdap) Unknown Completed [facility] Adacel (Tdap) Adacel (Tdap) Unknown Completed [facility] Adacel (Tdap) Adacel (Tdap) Unknown Completed [facility] Adacel (Tdap) Adacel (Tdap) Unknown Completed [facility] Adacel (Tdap) Adacel (Tdap) Unknown Completed [facility] Adacel (Tdap) Adacel (Tdap) Unknown Completed [facility] Adacel (Tdap) Adacel (Tdap) Unknown Completed [facility] Adacel (Tdap) Adacel (Tdap) Unknown Completed [facility] Adacel (Tdap) Adacel (Tdap) Unknown Completed [facility] Adacel (Tdap) Adacel (Tdap) Unknown Completed [facility] Adacel (Tdap) Adacel (Tdap) Unknown Completed [facility] Adacel (Tdap) Adacel (Tdap) Unknown Completed [facility] Prevnar 20 (PCV20) Prevnar 20 (PCV20) Unknown Completed [facility] Adacel (Tdap) Adacel (Tdap) Unknown Completed [facility] Prevnar 20 (PCV20) Prevnar 20 (PCV20) Unknown Completed [facility] Adacel (Tdap) Adacel (Tdap) Unknown Completed [facility] Prevnar 20 (PCV20) Prevnar 20 (PCV20) Unknown Completed [facility] Adacel (Tdap) Adacel (Tdap) Unknown Com[facility] [place] Prevnar 20 (PCV20) Prevnar 20 (PCV20) Unknown Completed Common [facility] Adacel (Tdap) Adacel (Tdap) Unknown Completed Co [facility] Prevnar 20 (PCV20) Prevnar 20 (PCV20) Unknown Completed [facility] Adacel (Tdap) Adacel (Tdap) Unknown Completed [facility] Adacel (Tdap) Adacel (Tdap) Unknown Completed [facility] Adacel (Tdap) Adacel (Tdap) Unknown Completed [facility] Adacel (Tdap) Adacel (Tdap) Unknown Completed [facility] Vital Signs Vital Name Observation Time Observation Value Comments S ource height 2023-12-10 15:00:00 66 [in_i] Commo n [facility] weight 2023-12-10 15:00:00 193 [lb_av] Comm on [facility] temperature 2023-12-10 15:00:00 99.2 [degF] Com mon [facility] bmi 2023-12-10 15:00:00 31.15 kg/m2 Comm on [facility] oximetry 2023-12-10 15:00:00 97 % Commo n [facility] respiratory rate 2023-12-10 15:00:00 16 /min [facility] blood pressure systolic 2023-12-10 15:00:00 142 mm[Hg] [facility] blood pressure diastolic 2023-12-10 15:00:00 98 mm[Hg] [facility] height 2023-12-10 15:00:00 66 [in_i] Commo n [facility] weight 2023-12-10 15:00:00 193 [lb_av] Comm on [facility] temperature 2023-12-10 15:00:00 99.2 [degF] Com [facility] bmi 2023-12-10 15:00:00 31.15 kg/m2 Comm on [facility] oximetry 2023-12-10 15:00:00 97 % Commo n [facility] respiratory rate 2023-12-10 15:00:00 16 /min [facility] blood pressure systolic 2023-12-10 15:00:00 142 mm[Hg] [facility] blood pressure diastolic 2023-12-10 15:00:00 98 mm[Hg] Common [facility] height 2023-11-03 16:20:00 66 [in_i] Commo n [facility] weight 2023-11-03 16:20:00 198.0 [lb_av] Co on [facility] temperature 2023-11-03 16:20:00 97.8 [degF] Com [facility] bmi 2023-11-03 16:20:00 31.95 kg/m2 Comm on [facility] oximetry 2023-11-03 16:20:00 95 % Commo n [facility] blood pressure systolic 2023-11-03 16:20:00 150 mm[Hg] [facility] blood pressure diastolic 2023-11-03 16:20:00 76 mm[Hg] Common [facility] height 2023-10-17 15:40:00 66 [in_i] Commo n [facility] weight 2023-10-17 15:40:00 198.4 [lb_av] Co mmon [facility] temperature 2023-10-17 15:40:00 98.3 [degF] Com [facility] bmi 2023-10-17 15:40:00 32.02 kg/m2 Comm on [facility] oximetry 2023-10-17 15:40:00 96 % Commo n [facility] respiratory rate 2023-10-17 15:40:00 18 /min [facility] blood pressure systolic 2023-10-17 15:40:00 148 mm[Hg] [facility] blood pressure diastolic 2023-10-17 15:40:00 90 mm[Hg] [facility] height 2023-09-16 09:00:00 66 [in_i] Commo n [facility] weight 2023-09-16 09:00:00 197 [lb_av] Comm on [facility] temperature 2023-09-16 09:00:00 98.1 [degF] Com mon [facility] bmi 2023-09-16 09:00:00 31.79 kg/m2 Comm on [facility] oximetry 2023-09-16 09:00:00 96 % Commo n [facility] respiratory rate 2023-09-16 09:00:00 17 /min [facility] blood pressure systolic 2023-09-16 09:00:00 160 mm[Hg] [facility] blood pressure diastolic 2023-09-16 09:00:00 90 mm[Hg] [facility] height 2023-07-08 15:20:00 66 [in_i] Commo n [facility] weight 2023-07-08 15:20:00 197.6 [lb_av] Co mmon [facility] temperature 2023-07-08 15:20:00 97.2 [degF] Com mon [facility] bmi 2023-07-08 15:20:00 31.89 kg/m2 Comm on [facility] oximetry 2023-07-08 15:20:00 98 % Commo n [facility] respiratory rate 2023-07-08 15:20:00 16 /min [facility] blood pressure systolic 2023-07-08 15:20:00 138 mm[Hg] [facility] blood pressure diastolic 2023-07-08 15:20:00 76 mm[Hg] Common [facility] height 2023-05-15 08:00:00 66 [in_i] Commo n [facility] weight 2023-05-15 08:00:00 195 [lb_av] Comm on [facility] temperature 2023-05-15 08:00:00 97.3 [degF] Com mon [facility] bmi 2023-05-15 08:00:00 31.47 kg/m2 Comm on [facility] oximetry 2023-05-15 08:00:00 92 % Commo n [facility] respiratory rate 2023-05-15 08:00:00 16 /min [facility] blood pressure systolic 2023-05-15 08:00:00 132 mm[Hg] [facility] blood pressure diastolic 2023-05-15 08:00:00 70 mm[Hg] [facility] height 2023-02-12 16:00:00 66 [in_i] Commo n [facility] weight 2023-02-12 16:00:00 195.2 [lb_av] Co mmon [facility] temperature 2023-02-12 16:00:00 98.0 [degF] Com mon [facility] bmi 2023-02-12 16:00:00 31.5 kg/m2 Commo n [facility] oximetry 2023-02-12 16:00:00 95 % Commo n [facility] respiratory rate 2023-02-12 16:00:00 17 /min [facility] blood pressure systolic 2023-02-12 16:00:00 136 mm[Hg] Common [facility] blood pressure diastolic 2023-02-12 16:00:00 79 mm[Hg] Common [facility] Systolic blood pressure 2023-01-28 18:22:00 157 mm[Hg] [facility] Diastolic blood pressure 2023-01-28 18:22:00 96 mm[Hg] [facility] Heart rate 2023-01-28 18:22:00 78 /min [facility] 2023-01-28 18:22:00 37.17 Shameka [facility] Respiratory rate 2023-01-28 18:22:00 18 /min [facility] Body weight 2023-01-28 18:22:00 83.915 kg [facility] BMI 2023-01-28 18:22:00 29.86 kg/m2 [facility] Oxygen saturation in Arterial blood by Pulse oximetry 2023-01-28 18:22:00 95 /min [facility] height 2023-01-27 08:30:00 66 [in_i] Commo n [facility] weight 2023-01-27 08:30:00 200 [lb_av] Comm on [facility] temperature 2023-01-27 08:30:00 97.8 [degF] Com mon [facility] bmi 2023-01-27 08:30:00 32.28 kg/m2 Comm on [facility] blood pressure systolic 2023-01-27 08:30:00 132 mm[Hg] [facility] blood pressure diastolic 2023-01-27 08:30:00 80 mm[Hg] Common [facility] height 2022-12-11 10:30:00 66 [in_i] Commo n [facility] weight 2022-12-11 10:30:00 198.5 [lb_av] Co mmon [facility] temperature 2022-12-11 10:30:00 97.2 [degF] Com [facility] bmi 2022-12-11 10:30:00 32.04 kg/m2 Comm on [facility] blood pressure systolic 2022-12-11 10:30:00 138 mm[Hg] Common [facility] blood pressure diastolic 2022-12-11 10:30:00 84 mm[Hg] [facility] height 2022-11-14 14:50:00 66 [in_i] Commo n [facility] weight 2022-11-14 14:50:00 200 [lb_av] Comm on [facility] temperature 2022-11-14 14:50:00 98.1 [degF] Com [facility] bmi 2022-11-14 14:50:00 32.28 kg/m2 Comm on [facility] oximetry 2022-11-14 14:50:00 98 % Commo n [facility] respiratory rate 2022-11-14 14:50:00 16 /min [facility] blood pressure systolic 2022-11-14 14:50:00 138 mm[Hg] [facility] blood pressure diastolic 2022-11-14 14:50:00 78 mm[Hg] [facility] height 2022-11-14 15:00:00 66 [in_i] Commo n [facility] weight 2022-11-14 15:00:00 200 [lb_av] Comm on [facility] temperature 2022-11-14 15:00:00 98.1 [degF] Com [facility] bmi 2022-11-14 15:00:00 32.28 kg/m2 Comm on [facility] oximetry 2022-11-14 15:00:00 98 % Commo n [facility] respiratory rate 2022-11-14 15:00:00 16 /min [facility] blood pressure systolic 2022-11-14 15:00:00 138 mm[Hg] Common [facility] blood pressure diastolic 2022-11-14 15:00:00 78 mm[Hg] Common [facility] height 2022-11-14 09:30:00 66 [in_i] Commo n [facility] weight 2022-11-14 09:30:00 200 [lb_av] Comm on [facility] temperature 2022-11-14 09:30:00 97.9 [degF] Com mon [facility] bmi 2022-11-14 09:30:00 32.28 kg/m2 Comm on [facility] blood pressure systolic 2022-11-14 09:30:00 132 mm[Hg] Common [facility] blood pressure diastolic 2022-11-14 09:30:00 80 mm[Hg] [facility] Systolic blood pressure 2022-10-20 12:25:00 125 mm[Hg] [facility] Diastolic blood pressure 2022-10-20 12:25:00 76 mm[Hg] [facility] Heart rate 2022-10-20 12:25:00 52 /min [facility] Respiratory rate 2022-10-20 12:25:00 14 /min [facility] Oxygen saturation in Arterial blood by Pulse oximetry 2022-10-20 12:25:00 93 /min [facility] Body temperature 2022-10-20 10:46:00 37.39 Shameka [facility] Body height 2022-10-20 10:46:00 167.6 cm [facility] Body weight 2022-10-20 10:46:00 85.7 kg [facility] BMI 2022-10-20 10:46:00 30.49 kg/m2 [facility] Systolic blood pressure 2022-08-30 20:50:00 92 mm[Hg] [facility] Diastolic blood pressure 2022-08-30 20:50:00 64 mm[Hg] [facility] Heart rate 2022-08-30 20:50:00 53 /min [facility] Respiratory rate 2022-08-30 20:50:00 20 /min [facility] Oxygen saturation in Arterial blood by Pulse oximetry 2022-08-30 20:50:00 94 /min [place] [facility] Body temperature 2022-08-30 13:47:00 35.67 Shameka [facility] Body height 2022-08-30 13:47:00 175.3 cm [facility] Body weight 2022-08-30 13:47:00 92.987 kg [facility] BMI 2022-08-30 13:47:00 30.27 kg/m2 [facility] height 2022-07-31 14:40:00 66 [in_i] Commo n [facility] weight 2022-07-31 14:40:00 201.0 [lb_av] Co mmon [facility] temperature 2022-07-31 14:40:00 98.2 [degF] Com mon [facility] bmi 2022-07-31 14:40:00 32.44 kg/m2 Comm on [facility] oximetry 2022-07-31 14:40:00 97 % Commo n [facility] respiratory rate 2022-07-31 14:40:00 17 /min [facility] blood pressure systolic 2022-07-31 14:40:00 135 mm[Hg] [facility] blood pressure diastolic 2022-07-31 14:40:00 72 mm[Hg] [facility] Systolic blood pressure 2022-05-24 20:23:00 112 mm[Hg] [facility] Diastolic blood pressure 2022-05-24 20:23:00 65 mm[Hg] [place] [facility] Heart rate 2022-05-24 20:23:00 68 /min [facility] Body temperature 2022-05-24 20:23:00 35.83 Shameka [facility] Respiratory rate 2022-05-24 20:23:00 18 /min [facility] Oxygen saturation in Arterial blood by Pulse oximetry 2022-05-24 20:23:00 96 /min [facility] Body height 2022-05-23 19:38:00 175.3 cm [facility] Body weight 2022-05-23 19:38:00 92.987 kg [facility] BMI 2022-05-23 19:38:00 30.27 kg/m2 [facility] height 2022-04-18 10:00:00 66 [in_i] Commo n [facility] weight 2022-04-18 10:00:00 209.0 [lb_av] Co mmon [facility] temperature 2022-04-18 10:00:00 98.1 [degF] Com mon [facility] bmi 2022-04-18 10:00:00 33.73 kg/m2 Comm on [facility] oximetry 2022-04-18 10:00:00 95 % Commo n [facility] respiratory rate 2022-04-18 10:00:00 16 /min [facility] blood pressure systolic 2022-04-18 10:00:00 132 mm[Hg] Common [facility] blood pressure diastolic 2022-04-18 10:00:00 73 mm[Hg] [facility] height 2022-04-04 11:10:00 66 [in_i] Commo n [facility] weight 2022-04-04 11:10:00 197 [lb_av] Comm on [facility] temperature 2022-04-04 11:10:00 98 [degF] Comm on [facility] bmi 2022-04-04 11:10:00 31.79 kg/m2 Comm on [facility] blood pressure systolic 2022-04-04 11:10:00 125 mm[Hg] Common [facility] blood pressure diastolic 2022-04-04 11:10:00 65 mm[Hg] [facility] height 2022-02-14 08:20:00 66 [in_i] Commo n [facility] weight 2022-02-14 08:20:00 197.3 [lb_av] Co [facility] temperature 2022-02-14 08:20:00 97.3 [degF] Com [facility] bmi 2022-02-14 08:20:00 31.84 kg/m2 Comm on [facility] oximetry 2022-02-14 08:20:00 96 % Commo n [facility] respiratory rate 2022-02-14 08:20:00 16 /min [facility] blood pressure systolic 2022-02-14 08:20:00 114 mm[Hg] Common [facility] blood pressure diastolic 2022-02-14 08:20:00 62 mm[Hg] Common [facility] height 2022-01-17 08:10:00 66 [in_i] Commo n [facility] weight 2022-01-17 08:10:00 195.6 [lb_av] Co [facility] temperature 2022-01-17 08:10:00 98.3 [degF] Com [facility] bmi 2022-01-17 08:10:00 31.57 kg/m2 Comm on [facility] oximetry 2022-01-17 08:10:00 98 % Commo n [facility] respiratory rate 2022-01-17 08:10:00 17 /min [facility] blood pressure systolic 2022-01-17 08:10:00 133 mm[Hg] [facility] blood pressure diastolic 2022-01-17 08:10:00 72 mm[Hg] Common [facility] height 2021-10-16 08:20:00 66 [in_i] Commo n [facility] weight 2021-10-16 08:20:00 194.9 [lb_av] Co [facility] temperature 2021-10-16 08:20:00 98.2 [degF] Com [facility] bmi 2021-10-16 08:20:00 31.45 kg/m2 Comm on [facility] oximetry 2021-10-16 08:20:00 97 % Commo n [facility] respiratory rate 2021-10-16 08:20:00 17 /min [facility] height 2021-10-16 08:20:00 66 [in_i] Commo n [facility] weight 2021-10-16 08:20:00 194.9 [lb_av] Co [facility] temperature 2021-10-16 08:20:00 98.2 [degF] Com [facility] bmi 2021-10-16 08:20:00 31.45 kg/m2 Comm on [facility] oximetry 2021-10-16 08:20:00 97 % Commo n [facility] respiratory rate 2021-10-16 08:20:00 17 /min [facility] blood pressure systolic 2021-10-16 08:20:00 132 mm[Hg] [facility] blood pressure diastolic 2021-10-16 08:20:00 77 mm[Hg] [facility] height 2021-10-08 13:10:00 66 [in_i] Commo n [facility] weight 2021-10-08 13:10:00 195.3 [lb_av] Co [facility] temperature 2021-10-08 13:10:00 98.1 [degF] Com [facility] bmi 2021-10-08 13:10:00 31.52 kg/m2 Comm on [facility] oximetry 2021-10-08 13:10:00 97 % Commo n [facility] respiratory rate 2021-10-08 13:10:00 17 /min [facility] blood pressure systolic 2021-10-08 13:10:00 132 mm[Hg] [facility] blood pressure diastolic 2021-10-08 13:10:00 73 mm[Hg] [facility] height 2021-07-11 09:10:00 66 [in_i] Commo n [facility] weight 2021-07-11 09:10:00 185.1 [lb_av] Co mmon [facility] temperature 2021-07-11 09:10:00 97.6 [degF] Com mon [facility] bmi 2021-07-11 09:10:00 29.87 kg/m2 Comm on [facility] oximetry 2021-07-11 09:10:00 96 % Commo n [facility] respiratory rate 2021-07-11 09:10:00 18 /min [facility] blood pressure systolic 2021-07-11 09:10:00 138 mm[Hg] [facility] blood pressure diastolic 2021-07-11 09:10:00 76 mm[Hg] [facility] Procedures Procedure Date / Time Performed Performing Clinician Source CONSENT/REFUSAL FOR DIAGNOSIS AND TREATMENT 2023-01-28 18:20:41 Doctor Unassigned, [place] [facility] URINALYSIS 2022-10-20 11:29:00 Christen Obando [facility] URINE DRUG (IMMUNOASSAY) - COMPREHENSIVE DRUG SCREEN W/O REFLEX 2022-10-20 11:29:00 Christen Obando [facility] XR CHEST 1 VW 2022-10-20 11:07:00 Christen Obando [facility] COMP. METABOLIC PANEL (87618) 2022-10-20 11:04:00 Christen Obando [facility] SALICYLATE 2022-10-20 11:04:00 Christen Obando [facility] ETHANOL 2022-10-20 11:04:00 Christen Obando [facility] CBC WITH DIFF 2022-10-20 11:04:00 Christen Obando [facility] BASIC METABOLIC PANEL (NA, K, CL, CO2, GLUCOSE, BUN, CREATININE, CA) 2022-08-30 17:22:00 Gertrdue Chinchilla [facility] URINALYSIS 2022-08-30 14:21:00 [facility] (IMMUNOASSAY) - COMPREHENSIVE DRUG SCREEN W/O REFLEX 2022-08-30 14:21:00 Gertrude Chinchilla [facility] XR CHEST 1 VW 2022-08-30 14:04:16 Gertrude Chinchilla [facility] MAGNESIUM 2022-08-30 14:03:00 [facility] TROP[facility] 2022-08-30 14:03:00 Gertrude Chinchilla [facility] COMP. METABOLIC PANEL (33876) 2022-08-30 14:03:00 Gertrude Chinchilla [facility] ETHANOL 2022-08-30 14:03:00 Gertrude Chinchilla Un [facility] CBC WITH DIFF 2022-08-30 14:03:00 Gertrude Chinchilla [facility] XR CHEST 1 VW 2022-05-24 11:38:[address] [facility] MAGNESIUM 2022-05-24 08:56:00 Callie Cuellar [facility] TROPONIN I 2022-05-24 08:56:00 Callie Cuellar [facility] BASIC METABOLIC PANEL (NA, K, CL, CO2, GLUCOSE, BUN, CREATININE, CA) 2022-05-24 08:56:00 Callie Cuellar [facility] CBC WITH DIFF 2022-05-24 08:56:[address] [facility] TROPONIN I 2022-05-24 03:51:00 Callie Cuellar [facility] XR KUB 2022-05-23 22:25:58 Callie Cuellar [facility] URINALYSIS 2022-05-23 22:15:00 Gertrude Chinchilla [facility] CREATININE, URINE RANDOM 2022-05-23 22:15:00 Vani Cuellar [facility] SODIUM, URINE RANDOM 2022-05-23 22:15:00 Callie Cuellar [facility] URINE DRUG (IMMUNOASSAY) - COMPREHENSIVE DRUG SCREEN W/O REFLEX 2022-05-23 22:15:00 Gertrude Chinchilla [facility] TRANSTHORACIC ECHO (TTE) COMPLETE 2022-05-23 20:33:00 Callie Cuellar [facility] COVID-19 (ID NOW RAPID TESTING) 2022-05-23 16:39:00 Gertrude Chinchilla [facility] LAB ONLY COVID INTERPRETATION 2022-05-23 16:39:00 Gertrude Chinchilla [facility] TROPONIN I 2022-05-23 13:42:00 Gertrude Chinchilla [facility] COMP. METABOLIC PANEL ([id number]) 2022-05-23 13:42:00 Gertrude Chinchilla [facility] CBC WITH DIFF 2022-05-23 13:42:00 Gertrude Chinchilla [facility] HB ECG ROUTINE & RHYTHM STRIP 2022-05-23 13:12:28 Gertrude Chinchilla [facility] EKG-12 LEAD 2022-05-23 12:44:00 Gertrude Chinchilla [facility] AUTHORIZATION FOR RELEASE OF PHI 2021-11-12 06:01:00 Doctor Unassigned, [place] [facility] Encounters Start Date/Time End Date/Time Encounter Type Admission Type Attending Clinicians Care Facility Care Department Encounter ID Source 2023-12-11 12:59:00 Outpatient [facility] [id number] [facility] 2023-12-10 09:50:00 Outpatient [facility] [id number] [facility] 2023-12-09 09:09[facility]00 [facility] [id number] [facility] 2023-10-28 10:03:00 Outpatient Rosana Red [facility] [id number] [facility] 2023-09-25 09:50:00 Outpatient Rosana Red [facility] [id number] [facility] 2023-09-15 10:25:00 Outpatient Rosana Red [facility] [id number] [facility] 2023-09-12 08:30:00 Outpatient Rosana Red [facility] [id number] [facility] 2023-08-15 09:11:00 Outpatient Rosana Red [facility] [id number] [facility] 2023-08-14 16:35:00 Outpatient Ross, Mahad [facility] [id number] [facility] 2023-07-04 14:02:00 Outpatient Ross, Mahad [facility] [id number] [facility] 2023-06-05 14:42:00 Outpatient Ross, Mahad [facility] [id number] [facility] 2023-05-14 15:43:00 Outpatient Ross, Mahad [facility] [id number] [facility] 2023-05-09 14:32:00 Outpatient Ross, Mahad [facility] [id number] [facility] 2023-02-11 08:03:01 Outpatient Ross, Mahad [facility] [id number] [facility] 2022-12-02 14:44:00 Outpatient Ross, Mahad [facility] [id number] [facility] 2022-11-14 12:02:00 Outpatient Ross, Mahad [facility] [id number] [facility] 2022-11-12 10:39:01 Outpatient Ross, Mahad [facility] [id number] [facility] 2022-10-07 09:37:01 Outpatient Ross, Mahad [facility] [id number] [facility] [place] [facility] 2022-10-04 16:32:01 Outpatient Ross, Mahad [facility] [id number] [facility] 2022-08-16 15:23:00 Outpatient Ross, Mahad [facility] [id number] [facility] 2022-07-31 14:32:00 Outpatient Ross, Mahad [facility] [id number] [facility] 2022-07-29 16:01:01 Outpatient Ross, Mahad [facility] [id number] [facility] 2022-07-19 16:30:01 Outpatient Ross, Mahad [facility] [id number] [facility] 2022-07-16 10:11:00 Outpatient Ross, Mahad [facility] [id number] [facility] 2022-06-25 14:39:00 Outpatient Ross, Mahad [facility] [id number] [facility] 2022-05-16 12:11:01 Outpatient Ross, Mahad [facility] [id number] [facility] [facility] 2021-10-24 13:24:10 Outpatient Ross, Mahad STLMLC STLMLC [id number] [facility] 2021-10-24 13:06:32 Outpatient Ross, Mahad STLMLC STLMLC [id number] [facility] 2021-10-24 12:40:59 Outpatient Ross, Mahad STLMLC STLMLC [id number] [facility] 2021-10-24 12:30:18 Outpatient Ross, Mahad STLMLC STLMLC [id number] [facility] 2021-10-24 12:29:04 Outpatient Ross, Mahad STLMLC STLMLC [id number] [facility] 2021-10-24 11:52:46 Outpatient Ross, Mahad STLMLC STLMLC [id number] [facility] 2021-10-24 11:44:17 Outpatient Ross, Mahad STLMLC STLMLC [id number] [facility] 2021-10-24 11:37:11 Outpatient Ross, Mahad STLMLC STLMLC [id number] [facility] 2021-07-28 05:50:12 Emergency [facility] [id number] [facility] 2023-12-11 00:00:00 2023-12-11 00:00:00 (TEL) STLMLC STLMLC [id number] [facility] 2023-12-10 00:00:00 2023-12-10 00:00:00 OFFICE VISIT ESTAB PT LEVEL 4 STLMLC STLMLC [id number] [facility] 2023-12-10 00:00:00 2023-12-10 00:00:00 SUB ANNUAL [facility] VISIT STLMLC STLMLC [id number] [facility] 2023-12-09 00:00:00 2023-12-09 00:00:00 (TEL) STLMLC STLMLC [id number] [facility] 2023-12-02 00:00:00 2023-12-02 00:00:00 (TEL) STLMLC STLMLC [id number] [facility] 2023-11-27 00:00:00 2023-11-27 00:00:00 (TEL) STLMLC STLMLC [id number] [facility] 2023-11-27 00:00:00 2023-11-27 00:00:00 (TEL) STLMLC STLMLC [id number] [facility] 2023-11-18 00:00:00 2023-11-18 00:00:00 (TEL) STLMLC STLMLC [id number] [facility] 2023-11-03 00:00:00 2023-11-03 00:00:00 (TEL) STLMLC STLMLC [id number] [facility] 2023-11-03 00:00:00 2023-11-03 00:00:00 OFFICE VISIT ESTAB PT LEVEL 4 STLMLC STLMLC [id number] [facility] 2023-10-17 00:00:00 2023-10-17 00:00:00 OFFICE VISIT ESTAB PT LEVEL 4 STLMLC STLMLC [id number] [facility] 2023-10-15 00:00:00 2023-10-15 00:00:00 (TEL) STLMLC STLMLC [id number] [facility] 2023-09-24 00:00:00 2023-09-24 00:00:00 (TEL) STLMLC STLMLC [id number] [facility] 2023-09-24 00:00:00 2023-09-24 00:00:00 (TEL) STLMLC STLMLC [id number] [facility] 2023-09-16 00:00:00 2023-09-16 00:00:00 OFFICE VISIT NEW PT LEVEL 4 STLMLC STLMLC [id number] [facility] 2023-08-14 00:00:00 2023-08-14 00:00:00 (TEL) STLMLC STLMLC [id number] [facility] 2023-07-08 00:00:00 2023-07-08 00:00:00 OFFICE VISIT ESTAB PT LEVEL 4 STLMLC STLMLC [id number] [facility] 2023-07-03 00:00:00 2023-07-03 00:00:00 (TEL) STLMLC STLMLC [id number] [facility] 2023-06-30 00:00:00 2023-06-30 00:00:00 (TEL) STLMLC STLMLC [id number] [facility] 2023-06-24 00:00:00 2023-06-24 00:00:00 (TEL) STLMLC STLMLC [id number] [facility] 2023-06-11 00:00:00 2023-06-11 00:00:00 (TEL) STLMLC STLMLC [id number] [facility] 2023-05-29 00:00:00 2023-05-29 00:00:00 (TEL) STLMLC STLMLC [id number] [facility] 2023-05-20 00:00:00 2023-05-20 00:00:00 (TEL) STLMLC STLMLC [id number] [facility] 2023-05-15 00:00:00 2023-05-15 00:00:00 OFFICE VISIT ESTAB PT LEVEL 4 STLMLC STLMLC [id number] [facility] 2023-04-25 00:00:00 2023-04-25 00:00:00 Outpatient [place] _B DMG [facility] [id number] [facility] 2023-04-25 00:00:00 2023-04-25 00:00:00 Out[place] [id number] [facility] 2023-03-05 00:00:00 2023-03-05 00:00:00 (TEL) STLMLC STLMLC [id number] [facility] 2023-02-20 16:29:56 2023-02-20 16:29:56 Outpatient SFA JESUSITA [id number] Tim Lambert 2023-02-12 00:00:00 2023-02-12 00:00:00 OFFICE VISIT ESTAB PT LEVEL 4 STLMLC STLMLC [id number] [facility] 2023-02-12 00:00:00 2023-02-12 00:00:00 (TEL) STLMLC STLMLC [id number] [facility] 2023-01-31 00:00:00 2023-01-31 00:00:00 (TEL) STLMLC STLMLC [id number] [facility] 2023-01-28 13:23:00 2023-01-28 14:59:00 Emergency X ANABELLZANE TIMOTHY DEELMER ERT [id number] [facility] 2023-01-28 13:23:00 2023-01-28 14:59:00 Emergency [facility] 1.2.840.114 350.1.13.10 4.2.7.2.686 [id number] [facility] 2023-01-27 00:00:00 2023-01-27 00:00:00 OFFICE VISIT ESTAB PT LEVEL 4 STLMLC STLMLC [id number] [facility] 2023-01-22 11:17:34 2023-01-22 11:17:34 Outpatient SFA SFA [id number] Tim F Fausto 2023-01-10 00:00:00 2023-01-10 00:00:00 (TEL) STLMLC STLMLC [id number] [facility] 2023-01-01 00:00:00 2023-01-01 00:00:00 (TEL) STLMLC STLMLC [id number] [facility] 2022-12-24 08:30:06 2022-12-24 08:30:06 Outpatient SFA SFA [id number] Tim Lambert 2022-12-11 00:00:00 2022-12-11 00:00:00 OFFICE VISIT ESTAB PT LEVEL 4 STLMLC STLMLC [id number] [facility] 2022-12-02 00:00:00 2022-12-02 00:00:00 (TEL) STLMLC STLMLC [id number] [facility] 2022-11-27 08:05:24 2022-11-27 08:05:24 Outpatient SFA [facility] [id number] Tim Lambert 2022-11-18 00:00:00 2022-11-18 00:00:00 (TEL) STLMLC STLMLC [id number] [facility] 2022-11-14 00:00:00 2022-11-14 00:00:00 OFFICE VISIT ESTAB PT LEVEL 4 STLMLC STLMLC [id number] [facility] 2022-11-14 00:00:00 2022-11-14 00:00:00 SUB ANNUAL [facility] VISIT STLMLC STLMLC [id number] [facility] 2022-11-14 00:00:00 2022-11-14 00:00:00 OFFICE VISIT ESTAB PT LEVEL 4 STLMLC STLMLC [id number] [facility] 2022-11-05 00:00:00 2022-11-05 00:00:00 (TEL) STLMLC STLMLC [id number] [facility] 2022-10-30 17:27:51 2022-10-30 17:27:51 Outpatient SFA [facility] [id number] Tim Lambert 2022-10-24 00:00:00 2022-10-24 00:00:00 (TEL) STLMLC STLMLC [id number] [facility] 2022-10-20 04:41:00 2022-10-20 06:40:00 Emergency X CHRISTEN OBANDO [facility] ERT [id number] [facility] 2022-10-20 04:41:00 2022-10-20 06:40:00 Emergency Christen Obando [facility] 1.2.840.114 350.1.13.10 4.2.7.2.686 [id number] [facility] 2022-10-16 00:00:00 2022-10-16 00:00:00 (TEL) STLMLC STLMLC [id number] [facility] 2022-10-03 15:56:50 2022-10-03 15:56:50 Outpatient SFA [facility] [id number] Tim Lambert 2022-10-03 00:00:00 2022-10-03 00:00:00 (TEL) STLMLC STLMLC [id number] [facility] 2022-09-04 08:12:48 2022-09-04 08:12:48 Outpatient SFA [facility] [id number] Tim Lambert 2022-09-03 14:40:55 2022-09-03 14:40:55 Outpatient SFA [facility] [id number] Tim Messina Fausto 2022-08-30 07:45:00 2022-08-30 15:39:00 Emergency X GERTRUDE CHINCHILLA [facility] ERT [id number] [facility] 2022-08-30 07:45:00 2022-08-30 15:39:00 Emergency Gertrude Chinchilla [facility] 1.2.840.114 350.1.13.10 4.2.7.2.686 [id number] [facility] 2022-08-12 00:00:00 2022-08-12 00:00:00 Outpatient [place] _B [facility] [id number] [facility] 2022-08-12 00:00:00 2022-08-12 00:00:00 Outpatient [place] _B [facility] [id number] [facility] 2022-08-12 00:00:00 2022-08-12 00:00:00 Outpatient [place] _B [facility] [id number] [facility] 2022-08-12 00:00:00 2022-08-12 00:00:00 Outpatient [place] _B DMG [facility] [id number] [facility] 2022-07-31 00:00:00 2022-07-31 00:00:00 OFFICE VISIT ESTAB PT LEVEL 4 STLMLC STLMLC [id number] [facility] 2022-06-21 00:00:00 2022-06-21 00:00:00 [place] [id number] [facility] 2022-06-20 00:00:00 2022-06-20 00:00:00 Outpatient Cobb_T DMG DMG [id number] [facility] 2022-06-06 00:00:00 2022-06-06 00:00:00 [facility]TEL) [facility] [id number] [facility] 2022-05-27 00:00:00 2022-05-27 00:00:00 Transition of Care Simón Rollins 1.2.840.114 350.1.13.10 4.2.7.2.686 [id number] [facility] 2022-05-23 07:39:00 2022-05-24 17:43:00 Outpatient CALLIE SHARIF [facility] [id number] [facility] 2022-05-23 07:39:00 2022-05-24 17:43:00 Emergency Gertrude Chinchilla David [facility] 1.2.840.114 350.1.13.10 4.2.7.2.686 [id number] [facility] 2022-05-09 00:00:00 2022-05-09 00:00:00 [place] [id number] [facility] 2022-04-18 00:00:00 2022-04-18 00:00:00 OFFICE VISIT ESTAB PT LEVEL 4 [facility] [id number] [facility] 2022-04-18 00:00:00 2022-04-18 00:00:00 (TEL) [facility] [id number] [facility] 2022-04-12 03:30:00 2022-04-12 03:30:00 Outpatient Deshazo_T DMG DMG [id number] [facility] 2022-04-10 04:58:00 2022-04-10 04:58:00 Outpatient Deshazo_T DMG [facility] [id number] [facility] 2022-04-04 00:00:00 2022-04-04 00:00:00 (TEL) STLMLC STLMLC [id number] [facility] 2022-04-04 00:00:00 2022-04-04 00:00:00 (EST. VIDEO) EST VIRTUAL VIDEO VISIT STLMLC STLMLC [id number] [facility] 2022-03-26 00:00:00 2022-03-26 00:00:00 (TEL) STLMLC STLMLC [id number] [facility] 2022-02-14 00:00:00 2022-02-14 00:00:00 OFFICE VISIT ESTAB PT LEVEL 5 STLMLC STLMLC [id number] [facility] 2022-01-22 00:00:00 2022-01-22 00:00:00 (TEL) STLMLC STLMLC [id number] [facility] 2022-01-17 00:00:00 2022-01-17 00:00:00 OFFICE VISIT ESTAB PT LEVEL 4 STLMLC STLMLC [id number] [facility] 2021-11-12 00:00:00 2021-11-12 00:00:00 Orders Only Doctor Unassigned, [place] [facility] 1.2.840.114 350.1.13.10 4.2.7.2.686 [id number] [facility] 2021-10-16 00:00:00 2021-10-16 00:00:00 SUB ANNUAL [facility] VISIT STLMLC STLMLC [id number] [facility] 2021-10-16 00:00:00 2021-10-16 00:00:00 OFFICE VISIT ESTAB PT LEVEL 4 STLMLC STLMLC [id number] [facility] 2021-10-09 14:20:00 2021-10-09 14:20:00 Outpatient NEELA FANG [facility] [id number] [facility] 2021-10-09 00:00:00 2021-10-09 00:00:00 (TEL) STLMLC STLMLC [id number] [facility] 2021-10-08 00:00:00 2021-10-08 00:00:00 (HOSP F/U) Hospital Follow Up STLMLC STLMLC [id number] [facility] 2021-10-05 00:00:00 2021-10-05 00:00:00 (TEL) STLMLC STLMLC [id number] [facility] 2021-10-02 00:00:00 2021-10-02 00:00:00 Transition of Care Simón Rollins 1..840.114 350.1.13.10 4.2.7.2.686 [id number] [facility] 2021-10-01 00:00:00 2021-10-01 00:00:00 (TEL) STLC STLC [id number] [facility] 2021-09-27 17:38:00 2021-09-30 15:22:00 Outpatient VIKASH PEMBERTON [facility] [id number] [facility] 2021-09-27 17:38:00 2021-09-30 15:22:00 Outpatient VIKASH PEMBERTON [facility] [id number] [facility] 2021-09-27 17:38:00 2021-09-30 15:22:00 Emergency Silva Szymanski Jelani [facility] ..840.114 350.1.13.10 4.2.7.2.686 [id number] [facility] 2021-09-19 01:00:00 2021-09-19 01:00:00 Outpatient OWENS_T DMG [facility] [id number] [facility] 2021-08-10 10:31:00 2021-08-10 10:31:00 Outpatient OWENS_T DMG [facility] [id number] [facility] 2021-08-07 02:14:00 2021-08-07 02:14:00 [place] [id number] [facility] 2021-07-17 00:00:00 2021-07-17 00:00:00 (TEL) STLMLC STLMLC [id number] [facility] 2021-07-11 00:00:00 2021-07-11 00:00:00 OFFICE VISIT ESTAB PT LEVEL 4 STLMLC STLMLC [id number] [facility] 2021-07-10 00:00:00 2021-07-10 00:00:00 (TEL) STLMLC STLMLC [id number] [facility] 2021-07-04 00:00:00 2021-07-04 00:00:00 (TEL) STLMLC STLMLC [id number] [facility] 2021-06-26 00:00:00 2021-06-26 00:00:00 (TEL) STLMLC STLMLC [id number] [facility] 2021-05-29 00:00:00 2021-05-29 00:00:00 Outpatient STLMLC STLMLC [id number] [facility] 2021-05-22 05:13:00 2021-05-22 05:13:00 Outpatient CURRY_S DMG [facility] [id number] [facility] 2021-05-22 00:00:00 2021-05-22 00:00:00 Outpatient STLMLC STLMLC [id number] [facility] 2021-05-04 00:00:00 2021-05-04 00:00:00 Outpatient STLMLC STLMLC [id number] [facility] 2021-04-30 00:00:00 2021-04-30 00:00:00 Outpatient STLMLC STLMLC [id number] [facility] 2021-04-30 00:00:00 2021-04-30 00:00:00 Outpatient STLC STLC [id number] [facility] 2021-04-06 00:00:00 2021-04-06 00:00:00 Outpatient ST[facility] [id number] [facility] 2021-01-29 06:02:00 2021-01-29 06:02:00 [facility] [id number] [facility] 2021-01-18 12:00:00 2021-01-18 12:00:00 [facility] [id number] [facility] 2020-08-14 14:12:00 2020-08-14 15:54:00 Emergency [facility] 1.2.840.114 350.1.13.10 4.2.7.2.686 [id number] 2020-08-14 14:12:00 2020-08-14 15:54:00 Emergency [facility] 1.2.840.114 350.1.13.10 4.2.7.2.686 [id number] [facility] Results Test Description Test Time Test Comments Results Result Co mments Source VITAMIN D, 25 [id number] 00:00:00* Test Item Value Reference Range Interpretation Comme nts VITAMIN D, 25 OH (test code = 1989-3) 40 NG/ML SEE BELOW NG/ML LIPID PANEL WITH REFLEX DIRECT [id number] 00:00:00* Test Item Value Reference Range Interpretation Comme nts CALC LDL CHOL (test code = 23633-3) 126 MG/DL See_Comment H [Automated [employer]] The system which generated this result transmitted reference range: <100 MG/DL. The reference range was not used to interpret this result as normal/abnormal. CHOLESTEROL (test code = 2093-3) 210 MG/DL See_Comment H [Automated [employer]] The system which generated this result transmitted reference range: <200 MG/DL. The reference range was not used to interpret this result as normal/abnormal. HDL CHOLESTEROL (test code = 2085-9) 57 MG/DL See_Comment [Automated messa ge] The system which generated this result transmitted reference range: >39 MG/DL. The reference range was not used to interpret this result as normal/abnormal. RISK RATIO LDL/HDL (test code = 04959-0) 2.21 RATIO See_Comment [Automated message] The system [...] interpret this result as normal/abnormal. COMPREHENSIVE METABOLIC [id number] 00:00:00* Test Item Value Reference Range Interpretation [...] result as normal/abnormal. CALCIUM (test code = 72680-9) 9.5 MG/DL See_Comment [Automated messa ge] The [...] as normal/abnormal. CALC GLOBULIN (test code = 25659-3) 2.7 G/DL See_Comment [Automated messa ge] The [...] normal/abnormal. eGFR (2020 CKD-EPI) (test code = 84364-2) 79 ML/MIN/1.73 See_Comment [Automated messa ge] The [...] interpret this result as normal/abnormal. CBC WITH [id number] 11:42:32* Test Item Value Reference Range Interpretation [...] 33.7 g/dL 31.2-35.0 RDW-SD (test code = 02077-9) 45.5 fL 38.5-51.6 RDW-CV (test code = 788-0) 13.8 % 12.1-15.4 PLT (test code = 777-3) See_Comment [Automated [employer]] The system which generated this result transmitted reference range: 150 - 328 10*3/?L. The reference range was not used to interpret this result as normal/abnormal. MPV (test code = 67613-7) 8.7 fL 9.8-13.0 L NRBC/100 WBC (test code = 0501258436) See_Comment [Automated [employer]] The system which generated this result transmitted reference range: 0.0 - 10.0 /100 WBCs. The reference range was not used to interpret this result as normal/abnormal. NRBC x10^3 (test code = 6399326674) See_Comment [Automated [employer]] The system which generated this result transmitted reference range: 10*3/?L. The reference range was not used to interpret this result as normal/abnormal. GRAN MAT (NEUT) % (test code = 770-8) 92.6 % IMM GRAN % (test code = 3209381461) 0.90 % LYMPH % (test code = 736-9) 5.3 % MONO % (test code = 5905-5) 0.6 % EOS % (test code = 713-8) 0.3 % BASO % (test code = 706-2) 0.3 % GRAN MAT x10^3(ANC) (test code = 9111390110) 9.61 10*3/uL 1.99-6.95 H IMM GRAN x10^3 (test code = 7683737960) 0.09 10*3/uL 0.00-0.06 H LYMPH x10^3 (test code = 731-0) 0.55 10*3/uL 1.09-3.23 L MONO x10^3 (test code = 742-7) 0.06 10*3/uL 0.36-1.02 L EOS x10^3 (test code = 711-2) 0.03 10*3/uL 0.06-0.53 L BASO x10^3 (test code = 704-7) 0.03 10*3/uL 0.01-0.09 Lab Interpretation (test code = 16549-1) [facility] 11:31:09 SALICYLATE<10mg/L10/20/2022 5:31 AM [facility] Range: ? Analgesic and Antipyretic Use ? 20- 100 mg/L ? ? Anti-Inflammatory Use ? 100-250 mg/L Toxic Range: ? Greater than 300 mg/LUnH[facility]OL2023-01-22 11:31:04ALCOHOL<10mg/dL10/20/2022 5:31 AM [facility]<10 Bmpvdqwz21-953 Toxic>100 Depression of ENGINE WIPER>400 Fatalities ReportedO[facility] CenterACETAMINOPHEN2023-01-22 11:30:59* Test Item Value Reference Range Interpretation Comme nts ACETAMINOP (test code = 5936377217) 10.0-30.0 L ISIDORO (test code = ISIDORO) Toxic: Greater porsche n 200 ug/mL @ 4 hour post ingestion or greater than 50 ug/mL @ 12 hour post ingestion Lab Interpretation (test code = 32898-7) Abnormal [facility]. MET[facility]OLIC PANEL (49183)2022-10-20 11:26:11* Test Item Value Reference Range Interpretation Comme nts NA (test code = 8786626748) 135 mmol/L 135-145 K (test code = 6115901344) 5.9 mmol/L 3.5-5.0 H CL (test code = 2939503725) 105 mmol/L 98-108 CO2 TOTAL (test code = 8489784597) 21 mmol/L 23-31 L AGAP (test code = 4045249064) 2-16 BUN (test code = 9614277619) 25 mg/dL 7-23 H GLUCOSE (test code = 9992899118) 127 mg/dL 70-110 H CREATININE (test code = 6484270540) 1.66 mg/dL 0.60-1.25 H TOTAL BILI (test code = 0788800111) 1.0 mg/dL 0.1-1.1 CALCIUM (test code = 7896385801) 8.9 mg/dL 8.6-10.6 T PROTEIN (test code = 4698581739) 7.9 g/dL 6.3-8.2 ALBUMIN (test code = 2825976087) 4.6 g/dL 3.5-5.0 ALK PHOS (test code = 1564583058) 134 U/L 34-122 H ALTv (test code = 1742-6) 30 U/L 5-50 AST(SGOT) (test code = 8779285661) 45 U/L 13-40 H eGFR (test code = 4253908850) mL/min/1.73m2 ISIDORO (test code = ISIDORO) Association [...] imaging tests). Lab Interpretation (test code = 74633-5) [facility] (NA, K, CL, CO2, GLUCOSE, BUN, CREATININE, CA)2022-08-30 18:07:32* Test Item Value Reference Range Interpretation Comme nts NA (test code = 0627573385) 143 mmol/L 135-145 K (test code = 6140415766) 4.1 mmol/L 3.5-5.0 CL (test code = 4081346251) 115 mmol/L 98-108 H CO2 TOTAL (test code = 0840911772) 19 mmol/L 23-31 L AGAP (test code = 0349518765) 2-16 BUN (test code = 9148155016) 33 mg/dL 7-23 H GLUCOSE (test code = 1350588522) 66 mg/dL 70-110 L CREATININE (test code = 3706156264) 1.99 mg/dL 0.60-1.25 H CALCIUM (test code = 6466914987) 8.3 mg/dL 8.6-10.6 L eGFR (test code = 0093524062) mL/min/1.73m2 ISIDORO (test code = ISIDORO) Association [...] imaging tests). Lab Interpretation (test code = 99451-5) Abnormal [facility] [id number] 15:44:49* Test Item Value Reference Range Interpretation Comments TROPONIN I (test code = 5830621919) 0.004 ng/mL See_Comment [Automated message] The system [...] of biotin. Lab Interpretation (test code = 39112-7) Normal [facility]ETH[facility]OL2022-[facility]-02 15:27:10 ALCOHOL<10mg/dL08/30/2022 9:27 [facility] Zlmhtsuc73-295 Toxic>100 Depression of ENGINE WIPER>400 Fatalities ReportedUnHCA [facility] Healthcare KingwoodCOMP. METABOLIC PANEL (47486)2022-08-30 15:24:23* Test Item Value Reference Range Interpretation Comme nts NA (test code = 5376447419) 144 mmol/L 135-145 K (test code = 1036079389) 3.9 mmol/L 3.5-5.0 CL (test code = 7643742991) 109 mmol/L 98-108 H CO2 TOTAL (test code = 5568182118) 22 mmol/L 23-31 L AGAP (test code = 5974763970) 2-16 BUN (test code = 6806617955) 37 mg/dL 7-23 H GLUCOSE (test code = 1972854178) 86 mg/dL 70-110 CREATININE (test code = 6791328193) 2.47 mg/dL 0.60-1.25 H TOTAL BILI (test code = 8303863821) 0.8 mg/dL 0.1-1.1 CALCIUM (test code = 0792326605) 9.3 mg/dL 8.6-10.6 T PROTEIN (test code = 2930513390) 7.0 g/dL 6.3-8.2 ALBUMIN (test code = 9712328837) 4.4 g/dL 3.5-5.0 ALK PHOS (test code = 2365238845) 119 U/L 34-122 ALTv (test code = 1742-6) 22 U/L 5-50 AST(SGOT) (test code = 2191180231) 38 U/L 13-40 eGFR (test code = 0216814856) mL/min/1.73m2 ISIDORO (test code = ISIDORO) Association [...] imaging tests). Lab Interpretation (test code = 06034-8) [facility]* Test Item Value Reference Range Interpretation Comme nts MAGNESIUM (test code = 3792487063) 2.1 mg/dL 1.7-2.4 Lab Interpretation (test cod e = 06725-2) Normal [facility] WITH [id number] 14:36:33* Test Item Value Reference Range Interpretation Comme nts WBC (test code = 6690-2) See_Comment [Automated [employer]] The system which generated this result transmitted reference range: 4.20 - 10.70 10*3/?L. The reference range was not used to interpret this result as normal/abnormal. RBC (test code = 789-8) See_Comment [Automated [employer]] The system which generated this result [...] 32.7 g/dL 31.2-35.0 RDW-SD (test code = 45898-5) 44.7 fL 38.5-51.6 RDW-CV (test code = 788-0) 13.2 % 12.1-15.4 PLT (test code = 777-3) See_Comment [Automated [employer]] The system which generated this result transmitted reference range: 150 - 328 10*3/?L. The reference range was not used to interpret this result as normal/abnormal. MPV (test code = 00719-9) 9.7 fL 9.8-13.0 L NRBC/100 WBC (test code = 5877818253) See_Comment [Automated me ssage] The system which generated this result transmitted reference range: 0.0 - 10.0 /100 WBCs. The reference range was not used to interpret this result as normal/abnormal. NRBC x10^3 (test code = 9429034346) See_Comment [Automated messa ge] The system which generated this result transmitted reference range: 10*3/?L. The reference range was not used to interpret this result as normal/abnormal. GRAN MAT (NEUT) % (test code = 770-8) 62.1 % IMM GRAN % (test code = 3979199588) 0.50 % LYMPH % (test code = 736-9) 22.6 % MONO % (test code = 5905-5) 9.1 % EOS % (test code = 713-8) 5.2 % BASO % (test code = 706-2) 0.5 % GRAN MAT x10^3(ANC) (test code = 2678089980) 5.38 10*3/uL 1.99-6.95 IMM GRAN x10^3 (test code = 8600511679) 0.04 10*3/uL 0.00-0.06 LYMPH x10^3 (test code = 731-0) 1.96 10*3/uL 1.09-3.23 MONO x10^3 (test code = 742-7) 0.79 10*3/uL 0.36-1.02 EOS x10^3 (test code = 711-2) 0.45 10*3/uL 0.06-0.53 BASO x10^3 (test code = 704-7) 0.04 10*3/uL 0.01-0.09 Lab Interpretation (test code = 05683-6) Abnormal [facility] [id number] 10:17:19* Test Item Value Reference Range Interpretation Comments TROPONIN I (test code = 5614125640) 0.007 ng/mL See_Comment [Automated message] The system [...] of biotin. Lab Interpretation (test code = 02527-8) [facility] 10:05:38* Test Item Value Reference Range Interpretation Comme nts MAGNESIUM (test code = 0797338532) 2.1 mg/dL 1.7-2.4 Lab Interpretation (test cod e = 01772-4) [facility] (NA, K, CL, CO2, GLUCOSE, BUN, CREATININE, CA)2022-05-24 10:05:18* Test Item Value Reference Range Interpretation Comme nts NA (test code = 9130246877) 136 mmol/L 135-145 K (test code = 1011247337) 4.9 mmol/L 3.5-5 CL (test code = 1474395027) 109 mmol/L 98-108 H CO2 TOTAL (test code = 3218314715) 21 mmol/L 23-31 L AGAP (test code = 3473220779) 2-16 BUN (test code = 3137692305) 27 mg/dL 7-23 H GLUCOSE (test code = 7066610955) 89 mg/dL 70-110 CREATININE (test code = 8768253362) 1.62 mg/dL 0.6-1.25 H CALCIUM (test code = 7897179840) 8.5 mg/dL 8.6-10.6 L eGFR (test code = 9512481902) mL/min/1.73m2 ISIDORO (test code = ISIDORO) Association [...] imaging tests). Lab Interpretation (test code = 34264-1) Abnormal [facility] WITH [id number] 09:31:37* Test Item Value Reference Range Interpretation Comme nts WBC (test code = 6690-2) See_Comment [[employer]] The system which generated this result transmitted reference range: 4.20 - 10.70 10*3/?L. The reference range was not used to interpret this result as normal/abnormal. RBC (test code = 789-8) See_Comment L [[employer]] The system which generated this result transmitted [...] 33.3 g/dL 31.2-35 RDW-SD (test code = 47715-4) 43.6 fL 38.5-51.6 RDW-CV (test code = 788-0) 13.1 % 12.1-15.4 PLT (test code = 777-3) See_Comment [Automated messa ge] The system which generated this result transmitted reference range: 150 - 328 10*3/?L. The reference range was not used to interpret this result as normal/abnormal. MPV (test code = 71137-1) 9.3 fL 9.8-13 L NRBC/100 WBC (test code = 6977816487) See_Comment [Automated [employer] ssage] The system which generated this result transmitted reference range: 0.0 - 10.0 /100 WBCs. The reference range was not used to interpret this result as normal/abnormal. NRBC x10^3 (test code = 4459250436) See_Comment [Automated [employer]] The system which generated this result transmitted reference range: 10*3/?L. The reference range was not used to interpret this result as normal/abnormal. GRAN MAT (NEUT) % (test code = 770-8) 56.1 % IMM GRAN % (test code = 6246990961) 0.40 % LYMPH % (test code = 736-9) 27.1 % MONO % (test code = 5905-5) 9.9 % EOS % (test code = 713-8) 5.8 % BASO % (test code = 706-2) 0.7 % GRAN MAT x10^3(ANC) (test code = 0993575309) 4.53 10*3/uL 1.99-6.95 IMM GRAN x10^3 (test code = 5807696482) 0.03 10*3/uL 0-0.06 LYMPH x10^3 (test code = 731-0) 2.19 10*3/uL 1.09-3.23 MONO x10^3 (test code = 742-7) 0.80 10*3/uL 0.36-1.02 EOS x10^3 (test code = 711-2) 0.47 10*3/uL 0.06-0.53 BASO x10^3 (test code = 704-7) 0.06 10*3/uL 0.01-0.09 Lab Interpretation (test code = 54708-3) [id number] 04:35:45* Test Item Value Reference Range Interpretation Comments TROPONIN I (test code = 2036984578) 0.004 ng/mL See_Comment [Automated message] The system [...] of biotin. Lab Interpretation (test code = 01179-6) [facility] 01:26:40* Test Item Value Reference Range Interpretation Comme nts Height (test code = 0493092430) in Weight (test code = 1338698814) lbs Systolic BP (test code = 9983416664) mmHg Diastolic BP (test code = 4932211464) mmHg Heart Rate (test code = 3359699173) bpm BSA (test code = 0193169729) 2.09 m2 Ao root annulus (test code = 5469410852) 3.2 cm Ao root diam (test code = 8254358789) 3.20 cm Aortic root (test code = 4118619310) 3.2 cm LVOT diameter (test code = 9505516717) 2.14 cm LVIDD (test code = 0532079535) 5.00 cm IVS (test code = 9430193913) 1.31 cm Interventricular Septum Diastolic Thickness by 2D (test code = 4306139) 1.31 cm LVPWD (test code = 3620758462) 1.32 cm PW (test code = 3095513945) 1.32 cm 0.6-1.1 EF(Teich) (test code = 2359528382) 61.30 % LVIDS (test code = 6502334940) 3.30 cm FS (test code = 8054349998) 33 % EF - 2D (test code = 39396403) 61.30 % LA size (test code = 6169407836) 3.6 cm TR Peak Mayank (test code = 2874648955) 261.9 cm/s Triscuspid Valve Regurgitation Peak Gradient (test code = 1220919197) mmHg LAV(MOD-sp4) (test code = 8509500565) 59.10 mL E wave decelartion time (test code = 6794012813) 0.23 s MV Peak E Mayank (test code = 4067484878) 73.6 cm/s MV stenosis pressure 1/2 time (test code = 5748852254) 70.2 ms MV Peak A Mayank (test code = 1785456096) 55.9 cm/s E/A ratio (test code = 9700198618) ratio MV Prop V (test code = 2494756768) 58.20 cm/s MV E/e' septal (test code = 4914424835) 12.2 cm/s Tapse (test code = 1580428082) 2.9 cm LVOT stroke volume (test code = 7637965116) 103.80 cm3 LVOT peak mayank (test code = 0373693854) 147.2 cm/s LVOT mn grad (test code = 7469494063) mmHg AV LVOT peak gradient (test code = 6926753347) mmHg LVOT peak VTI (test code = 3058472246) 28.7 cm LV V1 mean (test code = 6527036567) 93.00 cm/s Aortic valve mean velocity (test code = 0160830512) 119.4 cm/s Ao peak mayank (test code = 3576262621) 165.6 cm/s Ao VTI (test code = 0951223683) 35.2 cm AV area by cont VTI (test code = 1092454367) 2.9 cm2 AV area peak mayank (test code = 1457271979) 3.2 cm2 Ao max PG (test code = 9473760685) 11.00 mm[Hg] AV peak gradient (test code = 1140694113) mmHg AV valve area (test code = 9403409637) 2.90 cm2 AV mean gradient (test code = 9723041980) mmHg Radiology Study observation (narrative) (test code = 49471-8) ISIDORO (test code = ISIDORO) Formatting of [...] 2D, color flow Doppler and spectral Doppler. [id number] 14:25:35* Test Item Value Reference Range Interpretation Comments TROPONIN I (test code = 0287825789) 0.009 ng/mL See_Comment [Automated message] The system [...] of biotin. Lab Interpretation (test code = 94431-3) Normal [facility]. METABOLIC PANEL (17023)2022-05-23 14:14:13* Test Item Value Reference Range Interpretation Comme nts NA (test code = 1474082823) 143 mmol/L 135-145 K (test code = 3474721288) 5.0 mmol/L 3.5-5 CL (test code = 5220816990) 111 mmol/L 98-108 H CO2 TOTAL (test code = 1585411788) 20 mmol/L 23-31 L AGAP (test code = 1407648971) 2-16 BUN (test code = 4710582651) 30 mg/dL 7-23 H GLUCOSE (test code = 4079000578) 85 mg/dL 70-110 CREATININE (test code = 1432506898) 2.07 mg/dL 0.6-1.25 H TOTAL BILI (test code = 1414158614) 0.6 mg/dL 0.1-1.1 CALCIUM (test code = 3489886292) 9.0 mg/dL 8.6-10.6 T PROTEIN (test code = 3958723440) 7.2 g/dL 6.3-8.2 ALBUMIN (test code = 6116535751) 4.4 g/dL 3.5-5 ALK PHOS (test code = 9850344352) 121 U/L 34-122 ALTv (test code = 1742-6) 23 U/L 5-50 AST(SGOT) (test code = 0664574811) 29 U/L 13-40 eGFR (test code = 2347924085) mL/min/1.73m2 ISIDORO (test code = ISIDORO) Association [...] imaging tests). Lab Interpretation (test code = 91927-4) Abnormal [facility] WITH [id number] 14:11:10* Test Item Value Reference Range Interpretation Comme nts WBC (test code = 6690-2) See_Comment H [[employer]] The system which generated this result transmitted reference range: 4.20 - 10.70 10*3/?L. The reference range was not used to interpret this result as normal/abnormal. RBC (test code = 789-8) See_Comment [[employer]] The system which generated this result transmitted [...] 33.5 g/dL 31.2-35 RDW-SD (test code = 97093-6) 42.9 fL 38.5-51.6 RDW-CV (test code = 788-0) 12.9 % 12.1-15.4 PLT (test code = 777-3) See_Comment H [Automated messa ge] The system which generated this result transmitted reference range: 150 - 328 10*3/?L. The reference range was not used to interpret this result as normal/abnormal. MPV (test code = 95546-6) 9.0 fL 9.8-13 L NRBC/100 WBC (test code = 6471971073) See_Comment [Automated [employer]] The system which generated this result transmitted reference range: 0.0 - 10.0 /100 WBCs. The reference range was not used to interpret this result as normal/abnormal. NRBC x10^3 (test code = 8925606224) See_Comment [Automated messa ge] The system which generated this result transmitted reference range: 10*3/?L. The reference range was not used to interpret this result as normal/abnormal. GRAN MAT (NEUT) % (test code = 770-8) 71.9 % IMM GRAN % (test code = 3396993874) 0.40 % LYMPH % (test code = 736-9) 16.1 % MONO % (test code = 5905-5) 8.4 % EOS % (test code = 713-8) 2.5 % BASO % (test code = 706-2) 0.7 % GRAN MAT x10^3(ANC) (test code = 2289754697) 8.20 10*3/uL 1.99-6.95 H IMM GRAN x10^3 (test code = 9642468877) 0.05 10*3/uL 0-0.06 LYMPH x10^3 (test code = 731-0) 1.84 10*3/uL 1.09-3.23 MONO x10^3 (test code = 742-7) 0.96 10*3/uL 0.36-1.02 EOS x10^3 (test code = 711-2) 0.29 10*3/uL 0.06-0.53 BASO x10^3 (test code = 704-7) 0.08 10*3/uL 0.01-0.09 Lab Interpretation (test code = 42993-1) Abnormal [facility]"
[2023-12-13 17:12] LABS: Absolute Basophils 0.1 K/uL (0-0.5); Absolute Eosinophils 0.7 K/uL (0-0.5); Absolute Lymphocytes (CBC) 1.4 K/uL (0.7-4.9); Absolute Monocytes 0.5 K/uL (0.1-1.3); Absolute Neutrophil 4.4 K/uL (1.8-8.0); Basophils % 1.3 % (0-1.3); Eosinophils % 9.5 % (0-4.4); Hematocrit 38.4 % (39.6-49.0); Hemoglobin 13.1 g/dL (13.6-17.9); Lymphocytes % 19.6 % (15.3-44.8); MCH 31.6 pg (27.0-35.0); MCHC 34.1 g/dL (32.0-36.0); MCV 92.7 fL (80-100); MPV 7.1 fL (7.6-11.3); Monocytes % 7.5 % (3.3-12.3); Neutrophils % 62.1 % (41.7-73.7); Platelets 289 thou/uL (152-406); RBC Red Blood Cell Count 4.14 M/uL (4.33-5.43); Red Cell Distribution Width 14.9 % (12.1-15.2)
[2023-12-13 17:16] LABS: PT Prothrombin Time 10.5 SECONDS (9.5-12.5); PTT, Activated Partial Thromb 31.3 SECONDS (24.3-36.9); Protime INR 0.95
[2023-12-13 17:19] LABS: Renal Epithelial <5 /HPF (None Seen); Sqamous Epithelial <5 /HPF (None Seen); Urine Bacteria None Seen /HPF (<20); Urine Bilirubin NEGATIVE (Negative); Urine Blood Negative (Negative); Urine Clarity Clear (Clear); Urine Color Light-Yellow (Yellow); Urine Culture Reflex Order NOT NEEDED; Urine Glucose NEGATIVE (Negative); Urine Ketones NEGATIVE (Negative); Urine Microscopic Reflex YN ORDER UMIC; Urine Mucus Slight /HPF (None Seen); Urine Nitrite NEGATIVE (Negative); Urine Protein NEGATIVE (Negative); Urine RBC <5 /HPF (None Seen); Urine Urobilinogen Normal (Normal); Urine WBC <5 /HPF (<5); Urine pH 5.5 (5.0-7.0)
[2023-12-13 17:29] LABS: Albumin 3.3 g/dL (3.4-5.0); Albumin/Globulin Ratio 0.8 (1.1-1.8); Bilirubin Total 0.3 mg/dL (0.2-1.0); Globulin 3.9 g/dL (2.3-3.5); Protein, Total 7.2 g/dL (6.4-8.2)
[2023-12-13 17:33] LABS: Barbiturates NEGATIVE (NEGATIVE); Benzodiazepines NEGATIVE (NEGATIVE); Cocaine NEGATIVE (NEGATIVE); METHAMPHETAM NEGATIVE (NEGATIVE); Methadone NEGATIVE (NEGATIVE); Opiates NEGATIVE (NEGATIVE); Phencyclidine NEGATIVE (NEGATIVE); THC Cannibis NEGATIVE (NEGATIVE)
--- NOTE | 2023-12-13 17:37 | RAD REPORT ---
EXAM DESCRIPTION: CT - Head Brain Wo Cont - 12/13/2023 5:32 pm CLINICAL HISTORY: MENTAL STATUS CHANGE Headache, drowsiness COMPARISON: Ct Stroke Brain Wo Cont dated 11/27/2023; Head Brain Wo Cont dated 10/31/2023 TECHNIQUE: All CT scans are performed using dose optimization technique as appropriate and may inclu de automated exposure control or mA/KV adjustment according to patient size. FINDINGS: No intracranial hemorrhage, hydrocephalus or extra-axial fluid collection.Small old infarc t right occipital region.No areas of brain edema or evidence of midline shift. The paranasal sinuses and mastoids are clear. The calvarium is intact. IMPRESSION: No acute intracranial abnormality.
--- NOTE | 2023-12-13 17:38 | RAD REPORT ---
EXAM DESCRIPTION: RAD - Chest Single View - 12/13/2023 5:32 pm CLINICAL HISTORY: PAIN Chest pain. COMPARISON: Chest Single View dated 11/27/2023; Chest Single View dated 07/03/2023; Chest Single View dated 06/26/2023; Chest Single View dated 06/25/2023 FINDINGS: Portable technique limits examination quality. The lungs are grossly clear. The heart is normal in size. No displaced fractures. IMPRESSION: No acute intrathoracic process suspected.
[2023-12-13] MEDS ORDERED: ASPIRIN 81 MG CHEWABLE TABLET ONE (18:00)
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
[2023-12-13 21:33] VITALS: BMI 29.8
[2023-12-13] MEDS ORDERED: ACETAMINOPHEN 500 MG TAB PO PRN (22:44)
[2023-12-13] MEDS ORDERED: ONDANSETRON 4 MG/2 ML VIAL IV PRN (22:44)
[2023-12-13] MEDS: NA CHLORIDE 0.9% 1,000 ML IV SCH (23:17)
[2023-12-13] MEDS: TRAMADOL 37.5mg/APAP 325mg PER TAB PO PRN (23:18)
[2023-12-14] MEDS: MELATONIN 5 MG TABLET PO SCH (00:55)
[2023-12-14 04:41] LABS: Absolute Basophils 0.1 K/uL (0-0.5); Absolute Eosinophils 0.7 K/uL (0-0.5); Absolute Lymphocytes (CBC) 1.5 K/uL (0.7-4.9); Absolute Monocytes 0.7 K/uL (0.1-1.3); Absolute Neutrophil 3.9 K/uL (1.8-8.0); Eosinophils % 9.8 % (0-4.4); Hematocrit 32.8 % (39.6-49.0); Hemoglobin 11.3 g/dL (13.6-17.9); Lymphocytes % 22.2 % (15.3-44.8); MCH 31.8 pg (27.0-35.0); MCHC 34.5 g/dL (32.0-36.0); MCV 92.3 fL (80-100); MPV 7.3 fL (7.6-11.3); Monocytes % 9.9 % (3.3-12.3); Neutrophils % 57.1 % (41.7-73.7); Nucleated Red Blood Cells % 0.1 % (0-0); Platelets 319 thou/uL (152-406); RBC Red Blood Cell Count 3.56 M/uL (4.33-5.43); Red Cell Distribution Width 14.8 % (12.1-15.2)
[2023-12-14 05:07] LABS: Anion Gap 7.2 mEq/L (5.0-15.0); Magnesium 2.1 mg/dL (1.6-2.4); Potassium 4.2 mEq/L (3.5-5.1)
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
[2023-12-14 10:28] VITALS: O2SAT 97
[2023-12-14] MEDS: lisinopriL 20 MG TAB PO SCH (10:37)
[2023-12-14] MEDS: ASPIRIN 325 MG TAB PO SCH (10:37)
[2023-12-14] MEDS: INFLUENZA VACCINE (for 6+ mo) 0.5 ML DOSE IMVAC ONE (11:00)
--- NOTE | 2023-12-14 12:21 | RAD REPORT ---
EXAM DESCRIPTION: CT - Abdomen Pelvis W/Wo Contrast - 12/14/2023 11:55 am CLINICAL HISTORY: left flank pain, r/o stone, eval kidneys COMPARISON: Abdomen Pelvis Wo Contrast dated 06/25/2023; Stone Protocol dated 06/19/2022; Abdomen Pelvis W Contrast dated 06/01/2022; Stone Protocol dated 03/29/2022; Chest Abd Pelvis Wo Con dated 023; Renal Ultrasound-Complete dated 06/26/2023 TECHNIQUE: Thin cut axial CT imaging of the abdomen and pelvis was performed before and after intrav enous administration of Isovue 300. Multiplanar reformats were generated and reviewed. All CT scans are performed using dose optimization technique as appropriate and may include automated exposure control or mA/KV adjustment according to patient size. FINDINGS: No suspicious findings in the lung bases. The liver, spleen, adrenal glands, and pancreas show no suspicious findings. Gallbladder and biliary tree are also without suspicious finding. Stable multifocal areas of renal cortical thinning, may relate to prior scarring. Hypoattenuating lef t superior pole 2.3 cm cortical lesion, stable to slightly increased in size compared to prior exams. Other subcentimeter cortical hypoattenuating lesions are stable and may represent small cysts. No hy dronephrosis or radiopaque calculi. No dilated bowel loops or bowel wall thickening. No free air, free fluid or inflammatory stranding. S equelae of umbilical hernia mesh repair. Small left inguinal hernia containing fat. No suspicious mas s or bulky lymphadenopathy. The urinary bladder is without significant finding. No acute bony abnormalities. Grade 1 anterolisthesis of L4 over L5 resulting in a degree of central c anal stenosis, stable. IMPRESSION: No acute intra-abdominal process. No hydroureteronephrosis or radiopaque calculi. Stable to slightly increased size of left superior renal pole hypoattenuating lesion, may represent p roteinaceous or hemorrhagic cyst. A follow-up renal mass protocol CT or MRI is recommended in 6 month s to ensure stability. Other stable findings as above.
[2023-12-14] MEDS: GABAPENTIN 400 MG CAP PO SCH (12:45)
[2023-12-14] MEDS: NA CHLORIDE 0.9% 1,000 ML IV SCH (13:20)
[2023-12-14] MEDS: ATORVASTATIN 20 MG TAB PO SCH (20:07)
[2023-12-15 06:18] LABS: Absolute Basophils 0.1 K/uL (0-0.5); Absolute Eosinophils 0.5 K/uL (0-0.5); Absolute Lymphocytes (CBC) 1.7 K/uL (0.7-4.9); Absolute Monocytes 0.8 K/uL (0.1-1.3); Absolute Neutrophil 4.2 K/uL (1.8-8.0); Basophils % 0.9 % (0-1.3); Eosinophils % 7.1 % (0-4.4); Hematocrit 35.3 % (39.6-49.0); Hemoglobin 12.1 g/dL (13.6-17.9); Lymphocytes % 23.4 % (15.3-44.8); MCH 31.4 pg (27.0-35.0); MCHC 34.3 g/dL (32.0-36.0); MCV 91.8 fL (80-100); MPV 6.9 fL (7.6-11.3); Monocytes % 10.7 % (3.3-12.3); Neutrophils % 57.9 % (41.7-73.7); Nucleated Red Blood Cells % 0.1 % (0-0); Platelets 342 thou/uL (152-406); RBC Red Blood Cell Count 3.84 M/uL (4.33-5.43); Red Cell Distribution Width 14.6 % (12.1-15.2)
[2023-12-15 06:31] LABS: Anion Gap 6.3 mEq/L (5.0-15.0); Magnesium 2.2 mg/dL (1.6-2.4); Potassium 4.3 mEq/L (3.5-5.1)
[2023-12-15] MEDS ORDERED: BUDESONIDE IH PRN (06:50)
[2023-12-15] MEDS ORDERED: FORMOTEROL FUMARATE IH PRN (06:50)
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
[2023-12-15 12:40] VITALS: BP 151/83; TEMP 98.2
== END 2023-12-15 14:01 | disposition home or self-care (01) | DRG 682 ==
LOC: ER 16:12 → ERHOLD 19:00 → 4TH 21:48
PROVIDERS: ADMIT Hospitalist; ATTEND Hospitalist
DX: N17.9 Acute kidney failure, unspecified (principal); G92.8 Other toxic encephalopathy; R47.01 Aphasia; I12.9 Hypertensive chronic kidney disease with stage 1 through stage 4 chronic kidney disease, or unspecified chronic kidney disease; N18.2 Chronic kidney disease, stage 2 (mild); G47.00 Insomnia, unspecified; E78.00 Pure hypercholesterolemia, unspecified; T42.6X5A Adverse effect of other antiepileptic and sedative-hypnotic drugs, initial encounter; I25.2 Old myocardial infarction; R47.81 Slurred speech; Z88.0 Allergy status to penicillin; Z88.8 Allergy status to other drugs, medicaments and biological substances; Z90.49 Acquired absence of other specified parts of digestive tract; Z91.09 Other allergy status, other than to drugs and biological substances; Z86.73 Personal history of transient ischemic attack (TIA), and cerebral infarction without residual deficits; Z91.030 Bee allergy status
CPT/HCPCS: 36415; 70450; 71045; 74178; 80048; 80053; 80061; 80307; 81001; 82077; 83605; 83735; 85025; 85610; 85730; 87040; 93005; 94760; 97161; 99285; J7030; Q9967

== ENCOUNTER 2024-01-16 16:29 | Inpatient (IN) | payer MEDICARE ==
--- OUTSIDE RECORDS SUMMARY | 2024-01-16 16:41 | XMS REPORT | Continuity of Care Document ---
Author Name Unknown Address [address] [facility] [place] [address] [facility] Address [address] [facility] [address] [place] [address] Care Team Providers Care Slat Basket Top Maker Name Role Phone Cody Mahad M Primary Care Physician [phone] Rosana Red Attending Clinician Unavail able Mahad Ross Lexx Attending Clinician Unavailable [place]_B Attending Clinician Unavailable ZANE LIU Attending Clinician Unavailable ZANE LIU Attending Clinician Unavailable CHRISTEN OBANOD Attending Clinician Unavailable Christen Obando DO Attending Clinician [phone] GERTRUDE CHINCHILLA Attending Clinician Unavailab Gertrude Contreras DO Attending Clinician [phone] Cobb_T Attending Clinician Unavailable Simón Rollins RN Attending Clinician Unavail able CALLIE CUELLAR Attending Clinician Unavailable Callie Cuellar DO Attending Clinician [phone] Deshazo_T Attending Clinician Unavailable Doctor Unassigned, [place] Attending Clinician U navailable NEELA ALBRAADO Attending Clinician Unavail able NEELA ALBARADO Attending Clinician Unavail able VIKASH GRIMALDO Attending Clinician Unavailable Silva Szymanski MD Attending Clinician [phone] Vikash Grimaldo MD Attending Clinician [phone] OW_Will Attending Clinician Unavailable CURRTanisha_S Attending Clinician Unavailable Love Campbell Attending Clinician [phone] Lindadaelma_B Admitting Clinician Unavailable CHRISTEN OBANDO Admitting Clinician Unavailable GERTRUDE CHINCHILLA Admitting Clinician Unavailab le Cobb_T Admitting Clinician Unavailable CALLIE CUELLAR Admitting Clinician Unavailable Callie Cuellar DO Admitting Clinician [phone] Deshazo_T Admitting Clinician Unavailable VIKASH GRIMALDO Admitting Clinician Unavailable Vikash Grimaldo MD Admitting Clinician [phone] MARIAH_Will Admitting Clinician Unavailable PARAG_Yajaira Admitting Clinician Unavailable Payers Payer Name Policy Type Policy Number Effective Date Expirati on Date Source [employer] Total [facility] [id number] 2023 00:00:00 [facility] (MEDICARE REPLACEMENT HMO) [id number] 2021 00:00:00 [employer] ADV[employer]AGE PLAN [id number] 2020 00:00:00 [place] [id number] 2021 00:00:00 [place] [id number] 2021 00:00:00 [place] [id number] 2021 00:00:00 [place] [id number] [id number] 2021 00:00:00 [facility] Problems Condition Name Condition Details Condition Category Status Onset Date Resolution Date Last Treatment Date Treating Clinician Comments Source Chest pain, unspecifie d type Chest pain, unspecifie d type Disease Active 05-23 00:00: 00 [facility] Other hyperlipid emia Other hyperlipid emia Disease Active 05-23 00:00: 00 [facility] Drug abuse Drug abuse Disease Active 05-23 00:00: 00 [facility] Nonobstruc tive atheroscle rosis of coronary artery Nonobstruc tive atheroscle rosis of coronary artery Disease Active 05-23 00:00: 00 [facility] CAMDEN (acute kidney injury) CAMDEN (acute kidney injury) Disease Active 2020-09 00:00: 00 [facility] Esophageal spasm Esophageal spasm Disease Active 01-26 00:00: 00 [facility] A-fib A-fib Disease Active 01-20 00:00: 00 [facility] Atrial fibrillati on with RVR Atrial fibrillati on with RVR Disease Active 01-19 00:00: 00 [facility] Shortness of breath Shortness of breath Disease Active 01-19 00:00: 00 [facility] NSTEMI (non-ST elevated myocardial infarction ) NSTEMI (non-ST elevated myocardial infarction ) Disease Active 01-19 00:00: 00 [facility] Tobacco abuse Tobacco abuse Disease Active 01-19 00:00: 00 [facility] Family history of early CAD Family history of early CAD Disease Active 01-19 00:00: 00 [facility] Inguinal hernia Inguinal hernia Disease Active 2016-09 00:00: 00 [facility] Status epilepticu s Status epilepticu s Disease Active 01-22 00:00: 00 [facility] Seizure Seizure Disease Active 01-22 00:00: 00 [facility] [id number] COPD, mild Problem Com mon [facility] [id number] Leukocytos is, unspecifie d type Problem [facility] [id number] Developmen shruthi venous anomaly, cerebral Problem [facility] [id number] Diverticul osis large intestine w/o perforatio n or abscess w/bleeding Problem [facility] [id number] Atheroscle rosis of abdominal aorta Problem Common [facility] Cerebral infarction Cerebral infarction , unspecifie d mechanism Problem [facility] [id number] Chronic kidney disease, stage 3b Problem Common [facility] [id number] Osteoarthr itis of lumbar spine, unspecifie d spinal osteoarthr itis complicati on status Problem [facility] [id number] KATHEIRN (obstructi ve sleep apnea) Problem Common [facility] [id number] Left lower lobe pulmonary nodule Problem [facility] [id number] Bipolar disorder, mixed Problem Common [facility] [id number] Other schizophre nicho Problem Common [facility] [id number] Altered mental status, unspecifie d altered mental status type Problem [facility] Stroke Stroke Problem [facility] [id number] Incontinen ce of feces, unspecifie d fecal incontinen ce type Problem [facility] [id number] Primary insomnia Problem [facility] [id number] TIA (transient ischemic attack) Problem [facility] [id number] Aphasia Problem [facility] [id number] Body mass index [BMI] 31.0-31.9, adult Problem [facility] [id number] Other obesity due to excess calories Problem [facility] [id number] Mixed hyperlipid emia Problem [facility] [id number] Paroxysmal atrial fibrillati on Problem [facility] [id number] Vitamin D deficiency Problem [facility] [id number] Primary osteoarthr itis of left knee Problem [facility] [id number] Other chronic pain Problem [facility] [id number] Arthritis of knee, left Problem [facility] [id number] Essential hypertensi on Problem [facility] [id number] Tobacco use disorder, continuous Problem [facility] Allergic rhinitis Non-season al allergic rhinitis, unspecifie d chronicity , unspecifie d trigger Problem [facility] [id number] Primary osteoarthr itis of left shoulder Problem Common [facility] [id number] Incomplete tear of left rotator cuff, unspecifie d whether traumatic Problem [facility] [id number] Persistent migraine aura with cerebral infarction , intractabl e, with status migrainosu s Problem [facility] [id number] Narcolepsy due to underlying condition without cataplexy Problem [facility] Primary osteoarthr itis Primary osteoarthr itis involving multiple joints Problem [facility] Allergies, Adverse Reactions, Alerts Allergy Name Allergy Type Status Severity Reaction(s) Onset Date Inactive Date Treating Clinician Comments Source LORAZEPA M DRUG INGREDI Active Anaphylaxis 05-23 00:00: 00 [facility] Lorazepa m Propensi ty to adverse reaction s Active Anaphylaxis 05-23 00:00: 00 Pt has had multiple administr ations of ativan IV as well as EM without any negative reactions . [facility] BENADRYL ALLERGY DECONGES TANT DRUG Active High Swelling 2018-09 00:00: 00 [facility] Benadryl Allergy Deconges tant Propensi ty to adverse reaction s Active Swelling 2018-09 00:00: 00 [facility] DIAZEPAM DRUG INGREDI Active High Anaphylaxis 2016-09 00:00: 00 [facility] Diazepam Propensi ty to adverse reaction s to drug Active Anaphylaxis 2016-09 00:00: 00 Patient states it'll stop his heart within seconds of taking it. [facility] PENICILL INS Drug Class Active Anaphylaxis 05-13 00:00: 00 [facility] Penicill ins Propensi ty to adverse reaction s Active Anaphylaxis 05-13 00:00: 00 [facility] Penicill ins Propensi ty to adverse reaction s Active Anaphylaxis 05-13 00:00: 00 [facility] BEE STING / VENOM DRUG INGREDI Active Anaphylaxis 01-22 00:00: 00 [facility] Bee Sting / Venom Propensi ty to adverse reaction s to drug Active Anaphylaxis 01-22 00:00: 00 [facility] VENOM-WA SP DRUG INGREDI Active Anaphylaxis 01-22 00:00: 00 [facility] Venom-Wa sp Propensi ty to adverse reaction s Active Anaphylaxis 01-22 00:00: 00 [facility] penicill in G penicill in G Active swells throat shut [facility] diazepam diazepam Active Stops heart C ommon [facility] Social History Social Habit Start Date Stop Date Quantity Comments Source History of Tobacco Use Current Smoker [facility] Sex Assigned At [facility] Exposure to SARS-CoV-2 (event) 2023-01-18 00:00:00 2023-01-28 13:20:00 Not sure [facility] Alcohol intake 2022-10-21 00:00:00 2022-10-21 00:00:00 Current non-drinker of alcohol (finding) [facility] Cigarette pack-years 2021-09-27 00:00:00 2021-09-27 00:00:00 [facility] Tobacco use and exposure 2021-09-27 00:00:00 2021-09-27 00:00:00 Smokeless tobacco non-user [facility] Education 2021-09-27 00:00:00 2021-09-27 00:00:00 8 [facility] Cigarettes smoked current (pack per day) - Reported 2021-09-27 00:00:00 2021-09-27 00:00:00 [facility] Smoking Status Start Date Stop Date Source Current Smoker 2023-12-10 00:00:00 [facility] Medications Ordered Medication Name Filled [...] Ellipta 50-25 MCG/INH Breo Ellipta 50-25 MCG/INH 0 1- 00:00: 00 No 1{puff} QD Breo Ellipta 50-25 MCG/INH Breo Ellipta 50-25 MCG/INH Breo Ellipta 50-25 MCG/INH 0 1- 00:00: 00 No 1{puff} QD Breo Ellipta 50-25 MCG/INH Breo Ellipta 50-25 MCG/INH Breo Ellipta 50-25 MCG/INH 1- 00:00: 00 No 1{puff} QD Breo Ellipta 50-25 MCG/INH Kenalog (Triamcinol one) Kenalog (Triamcinol one) 2022-09 00:00: 00 No 40mg [facility] Kenalog (Triamcinol one) Kenalog (Triamcinol one) 2022-09 00:00: 00 No [facility] Kenalog (Triamcinol one) Kenalog (Triamcinol one) 2022-09 00:00: 00 No 40mg [facility] Kenalog (Triamcinol one) Kenalog (Triamcinol one) 2022-09 2- 00:00: 00 No 40mg [facility] Kenalog (Triamcinol one) Kenalog (Triamcinol one) 2022-09 00:00: 00 No 40mg [facility] Kenalog (Triamcinol one) Kenalog (Triamcinol one) 2022-09 00:00: 00 No 40mg [facility] Kenalog (Triamcinol one) Kenalog (Triamcinol one) 2022-09 2- 00:00: 00 No 40mg [facility] Kenalog (Triamcinol one) Kenalog (Triamcinol one) 2022-09 00:00: 00 No 40mg [facility] Kenalog (Triamcinol one) Kenalog (Triamcinol one) 2022-09 00:00: 00 No 40mg [facility] Kenalog (Triamcinol one) Kenalog (Triamcinol one) 2022-09 00:00: 00 No 40mg [facility] Kenalog (Triamcinol one) Kenalog (Triamcinol one) 2022-09 00:00: 00 No 40mg [facility] Kenalog (Triamcinol one) Kenalog (Triamcinol one) 2022-09 00:00: 00 No 40mg [facility] Kenalog (Triamcinol one) Kenalog (Triamcinol one) 2022-09 00:00: 00 No 40mg [facility] Kenalog (Triamcinol one) Kenalog (Triamcinol one) 2022-09 00:00: 00 No 40mg [facility] Kenalog (Triamcinol one) Kenalog (Triamcinol one) 2022-09 00:00: 00 No 40mg [facility] Kenalog (Triamcinol one) Kenalog (Triamcinol one) 2022-09 00:00: 00 No 40mg [facility] Albuterol Sulfate HFA 108 (90 Base) MCG/ACT Albuterol Sulfate HFA 108 (90 Base) MCG/ACT 2022-09 00:00: 00 No 1{puff_ as_need ed} 6xD Albuterol Sulfate HFA 108 (90 Base) MCG/ACT Montelukast Sodium 10 MG Montelukast Sodium 10 MG 2022-09 00:00: 00 No 1{table t} QD Montelukas t Sodium 10 MG Kenalog (Triamcinol one) Kenalog (Triamcinol one) 2022-09 00:00: 00 No 40mg [facility] Albuterol Sulfate HFA 108 (90 Base) MCG/ACT Albuterol Sulfate HFA 108 (90 Base) MCG/ACT 2022-09 00:00: 00 No 1{puff_ as_need ed} 6xD Albuterol Sulfate HFA 108 (90 Base) MCG/ACT Montelukast Sodium 10 MG Montelukast Sodium 10 MG 2022-09 00:00: 00 No 1{table t} QD Montelukas t Sodium 10 MG Kenalog (Triamcinol one) Kenalog (Triamcinol one) 2022-09 00:00: 00 No 40mg [facility] Montelukast Sodium 10 MG Montelukast Sodium 10 MG 2022-09 00:00: 00 No 1{table t} QD Montelukas t Sodium 10 MG Albuterol Sulfate HFA 108 (90 Base) MCG/ACT Albuterol Sulfate HFA 108 (90 Base) MCG/ACT 2022-09 00:00: 00 No 1{puff_ as_need ed} 6xD Albuterol Sulfate HFA 108 (90 Base) MCG/ACT Kenalog (Triamcinol one) Kenalog (Triamcinol one) 2022-09 00:00: 00 No 40mg [facility] Montelukast Sodium 10 MG Montelukast Sodium 10 MG 2022-09 00:00: 00 No 1{table t} QD Montelukas t Sodium 10 MG Albuterol Sulfate HFA 108 (90 Base) MCG/ACT Albuterol Sulfate HFA 108 (90 Base) MCG/ACT 2022-09 00:00: 00 No 1{puff_ as_need ed} 6xD Albuterol Sulfate HFA 108 (90 Base) MCG/ACT Kenalog (Triamcinol one) Kenalog (Triamcinol one) 2022-09 00:00: 00 No 40mg [facility] Montelukast Sodium 10 MG Montelukast [...] 00 No 40mg [facility] Albuterol Sulfate HFA 108 (90 Base) MCG/ACT Albuterol Sulfate HFA 108 (90 Base) MCG/ACT 2022-09 00:00: 00 No 1{puff_ as_need ed} 6xD Albuterol Sulfate HFA 108 (90 Base) MCG/ACT Kenalog (Triamcinol one) Kenalog (Triamcinol one) 2022-09 00:00: 00 No 40mg [facility] Kenalog (Triamcinol one) Kenalog (Triamcinol one) 2022-09 00:00: 00 No 40mg [facility] Kenalog (Triamcinol one) Kenalog (Triamcinol one) 2022-09 00:00: 00 No 40mg [facility] Kenalog (Triamcinol one) Kenalog (Triamcinol one) 2022-09 00:00: 00 No 40mg [facility] Cyanocobala min Cyanocobala min 2022-09 0-10 00:00: 00 No 1000mL [facility] Kenalog (Triamcinol one) Kenalog (Triamcinol one) 2022-09 0-10 00:00: 00 No 40mg [facility] Cyanocobala min Cyanocobala min 2022-09 0-10 00:00: 00 No 1000mL [facility] Kenalog (Triamcinol one) Kenalog (Triamcinol one) 2022-09 0-10 00:00: 00 No 40mg [facility] Cyanocobala min Cyanocobala min 2022-09 0-10 00:00: 00 No 1000mL [facility] Kenalog (Triamcinol one) Kenalog (Triamcinol one) 2022-09 0-10 00:00: 00 No 40mg [facility] Cyanocobala min Cyanocobala min 2022-09 0-10 00:00: 00 No 1000mL [facility] Kenalog (Triamcinol one) Kenalog (Triamcinol one) 2022-09 0-10 00:00: 00 No 40mg [facility] Cyanocobala min Cyanocobala min 2022-09 0-10 00:00: 00 No 1000mL [facility] Kenalog (Triamcinol one) Kenalog (Triamcinol one) 2022-09 0-10 00:00: 00 No 40mg [facility] Cyanocobala min Cyanocobala min 2022-09 0-10 00:00: 00 No 1000mL [facility] Kenalog (Triamcinol one) Kenalog (Triamcinol one) 2022-09 0-10 00:00: 00 No 40mg [facility] Cyanocobala min Cyanocobala min 2022-09 0-10 00:00: 00 No 1000mL [facility] Kenalog (Triamcinol one) Kenalog (Triamcinol one) 2022-09 0-10 00:00: 00 No 40mg [facility] Cyanocobala min Cyanocobala min 2022-09 0-10 00:00: 00 No 1000mL [facility] Kenalog (Triamcinol one) Kenalog (Triamcinol one) 2022-09 0-10 00:00: 00 No 40mg [facility] Cyanocobala min Cyanocobala min 2022-09 0-10 00:00: 00 No 1000mL [facility] Kenalog (Triamcinol one) Kenalog (Triamcinol one) 2022-09 0-10 00:00: 00 No 40mg [facility] Cyanocobala min Cyanocobala min 2022-09 0-10 00:00: 00 No 1000mL [facility] Kenalog (Triamcinol one) Kenalog (Triamcinol one) 2022-09 0-10 00:00: 00 No 40mg [facility] Kenalog (Triamcinol one) Kenalog (Triamcinol one) 0 8-17 00:00: 00 No 40mg [facility] Cyanocobala min Cyanocobala min 0 8-17 00:00: 00 No 1000mL [facility] Kenalog (Triamcinol one) Kenalog (Triamcinol one) 0 8-17 00:00: 00 No 40mg [facility] Cyanocobala min Cyanocobala min 0 8-17 00:00: 00 No 1000mL [facility] Kenalog (Triamcinol one) Kenalog (Triamcinol one) 0 8-17 00:00: 00 No 40mg [facility] Cyanocobala min Cyanocobala min 0 8-17 00:00: 00 No 1000mL [facility] Kenalog (Triamcinol one) Kenalog (Triamcinol one) 0 8-17 00:00: 00 No 40mg [facility] Cyanocobala min Cyanocobala min 0 8-17 00:00: 00 No 1000mL [facility] Kenalog (Triamcinol one) Kenalog (Triamcinol one) 0 8-17 00:00: 00 No 40mg [facility] Cyanocobala min Cyanocobala min 2022-0 8-17 00:00: 00 No 1000mL [facility] Kenalog (Triamcinol one) Kenalog (Triamcinol one) 0 05-15 00:00: 00 No 40mg [facility] Cyanocobala min Cyanocobala min 0 8 00:00: 00 No 1000mL [facility] Kenalog (Triamcinol one) Kenalog (Triamcinol one) 0 8 00:00: 00 No 40mg [facility] Cyanocobala min Cyanocobala min 0 05-15 00:00: 00 No 1000mL [facility] Kenalog (Triamcinol one) Kenalog (Triamcinol one) 0 05-15 00:00: 00 No 40mg [facility] Cyanocobala min Cyanocobala min 0 05-15 00:00: 00 No 1000mL [facility] Kenalog (Triamcinol one) Kenalog (Triamcinol one) 0 05-15 00:00: 00 No 40mg [facility] Cyanocobala min Cyanocobala min 0 05-15 00:00: 00 No 1000mL [facility] Kenalog (Triamcinol one) Kenalog (Triamcinol one) 0 05-15 00:00: 00 No 40mg [facility] Cyanocobala min Cyanocobala min 0 05-15 00:00: 00 No 1000mL [facility] Kenalog (Triamcinol one) Kenalog (Triamcinol one) 0 05-15 00:00: 00 No 40mg [facility] Cyanocobala min Cyanocobala min 0 8 00:00: 00 No 1000mL [facility] Kenalog (Triamcinol one) Kenalog (Triamcinol one) 0 8- 00:00: 00 No 40mg [facility] Cyanocobala min Cyanocobala min 2022-0 8-17 00:00: 00 No 1000mL [facility] Kenalog (Triamcinol one) Kenalog (Triamcinol one) 0 8-17 00:00: 00 No 40mg [facility] Cyanocobala min Cyanocobala min 0 8-17 00:00: 00 No 1000mL [facility] Kenalog (Triamcinol one) Kenalog (Triamcinol one) 2022-0 8-17 00:00: 00 No 40mg [facility] Cyanocobala min Cyanocobala min 0 - 00:00: 00 No 1000mL [facility] Kenalog (Triamcinol one) Kenalog (Triamcinol one) 0 8- 00:00: 00 No 40mg [facility] Cyanocobala min Cyanocobala min 0 8- 00:00: 00 No 1000mL [facility] Kenalog (Triamcinol one) Kenalog (Triamcinol one) 0 8- 00:00: 00 No 40mg [facility] Cyanocobala min Cyanocobala min 0 8-17 00:00: 00 No 1000mL [facility] Kenalog (Triamcinol one) Kenalog (Triamcinol one) 0 8-17 00:00: 00 No 40mg [facility] Cyanocobala min Cyanocobala min 2022-0 8-17 00:00: 00 No 1000mL [facility] Kenalog (Triamcinol one) Kenalog (Triamcinol one) 0 8-17 00:00: 00 No 40mg [facility] Cyanocobala min Cyanocobala min 2022-0 8-17 00:00: 00 No 1000mL [facility] Kenalog (Triamcinol one) Kenalog (Triamcinol one) 0 8-17 00:00: 00 No 40mg [facility] Cyanocobala min Cyanocobala min 0 8-17 00:00: 00 No 1000mL [facility] Kenalog (Triamcinol one) Kenalog (Triamcinol one) 0 8-17 00:00: 00 No 40mg [facility] Cyanocobala min Cyanocobala min 0 8-17 00:00: 00 No 1000mL [facility] Kenalog (Triamcinol one) Kenalog (Triamcinol one) 0 8- 00:00: 00 No 40mg [facility] Cyanocobala min Cyanocobala min 0 8-17 00:00: 00 No 1000mL [facility] Kenalog (Triamcinol one) Kenalog (Triamcinol one) 0 8- 00:00: 00 No 40mg [facility] Cyanocobala min Cyanocobala min 0 8-17 00:00: 00 No 1000mL [facility] Kenalog (Triamcinol one) Kenalog (Triamcinol one) 0 8-17 00:00: 00 No 40mg [facility] Cyanocobala min Cyanocobala min 0 8-17 00:00: 00 No 1000mL [facility] Kenalog (Triamcinol one) Kenalog (Triamcinol one) 0 8-17 00:00: 00 No 40mg [facility] Cyanocobala min Cyanocobala min 0 8-17 00:00: 00 No 1000mL [facility] Kenalog (Triamcinol one) Kenalog (Triamcinol one) 0 8-17 00:00: 00 No 40mg [facility] Cyanocobala min Cyanocobala min 0 8-17 00:00: 00 No 1000mL [facility] Kenalog (Triamcinol one) Kenalog (Triamcinol one) 0 8-17 00:00: 00 No 40mg [facility] Cyanocobala min Cyanocobala min 2022-0 8-17 00:00: 00 No 1000mL [facility] Kenalog (Triamcinol one) Kenalog (Triamcinol one) 0 8-17 00:00: 00 No 40mg [facility] Cyanocobala min Cyanocobala min 0 8-17 00:00: 00 No 1000mL [facility] Kenalog (Triamcinol one) Kenalog (Triamcinol one) 0 8-17 00:00: 00 No 40mg [facility] Cyanocobala min Cyanocobala min 0 8-17 00:00: 00 No 1000mL [facility] Kenalog (Triamcinol one) Kenalog (Triamcinol one) 0 8-17 00:00: 00 No 40mg [facility] Cyanocobala min Cyanocobala min 0 8-17 00:00: 00 No 1000mL [facility] Kenalog (Triamcinol one) Kenalog (Triamcinol one) 0 8-17 00:00: 00 No 40mg [facility] Cyanocobala min Cyanocobala min 0 8-17 00:00: 00 No 1000mL [facility] Kenalog (Triamcinol one) Kenalog (Triamcinol one) 0 8-17 00:00: 00 No 40mg [facility] Cyanocobala min Cyanocobala min 2022-0 8-17 00:00: 00 No 1000mL [facility] Kenalog (Triamcinol one) Kenalog (Triamcinol one) 0 05-15 00:00: 00 No 40mg [facility] Cyanocobala min Cyanocobala min 0 8-17 00:00: 00 No 1000mL [facility] Kenalog (Triamcinol one) Kenalog (Triamcinol one) 0 8-17 00:00: 00 No 40mg [facility] Cyanocobala min Cyanocobala min 0 -17 00:00: 00 No 1000mL [facility] Kenalog (Triamcinol one) Kenalog (Triamcinol one) 0 8- 00:00: 00 No 40mg [facility] Cyanocobala min Cyanocobala min 0 8- 00:00: 00 No 1000mL [facility] Kenalog (Triamcinol one) Kenalog (Triamcinol one) 0 - 00:00: 00 No 40mg [facility] Cyanocobala min Cyanocobala min 0 8-17 00:00: 00 No 1000mL [facility] Kenalog (Triamcinol one) Kenalog (Triamcinol one) 0 05-15 00:00: 00 No 40mg [facility] Cyanocobala min Cyanocobala min 0 8- 00:00: 00 No 1000mL [facility] Kenalog (Triamcinol one) Kenalog (Triamcinol one) 0 8- 00:00: 00 No 40mg [facility] Cyanocobala min Cyanocobala min 0 8-17 00:00: 00 No 1000mL [facility] Kenalog (Triamcinol one) Kenalog (Triamcinol one) 0 8-17 00:00: 00 No 40mg [facility] Cyanocobala min Cyanocobala min 0 8-17 00:00: 00 No 1000mL [facility] Kenalog (Triamcinol one) Kenalog (Triamcinol one) 0 8-17 00:00: 00 No 40mg [facility] Cyanocobala min Cyanocobala min 0 8-17 00:00: 00 No 1000mL [facility] Kenalog (Triamcinol one) Kenalog (Triamcinol one) 0 8-17 00:00: 00 No 40mg [facility] Cyanocobala min Cyanocobala min 0 -17 00:00: 00 No 1000mL [facility] Kenalog (Triamcinol one) Kenalog (Triamcinol one) 0 - 00:00: 00 No 40mg [facility] Cyanocobala min Cyanocobala min 0 02-12 00:00: 00 No 1000mL [facility] Kenalog (Triamcinol one) Kenalog (Triamcinol one) 0 02-12 00:00: 00 No 40mg [facility] Cyanocobala min Cyanocobala min 0 02-12 00:00: 00 No 1000mL [facility] Kenalog (Triamcinol one) Kenalog (Triamcinol one) 0 02-12 00:00: 00 No 40mg [facility] Cyanocobala min Cyanocobala min 0 17 00:00: 00 No 1000mL [facility] Kenalog (Triamcinol one) Kenalog (Triamcinol one) 0 - 00:00: 00 No 40mg [facility] Cyanocobala min Cyanocobala min 0 -17 00:00: 00 No 1000mL [facility] Kenalog (Triamcinol one) Kenalog (Triamcinol one) 0 5-17 00:00: 00 No 40mg [facility] Cyanocobala min Cyanocobala min 0 02-12 00:00: 00 No 1000mL [facility] Kenalog (Triamcinol one) Kenalog (Triamcinol one) 0 02-12 00:00: 00 No 40mg [facility] Cyanocobala min Cyanocobala min 0 02-12 00:00: 00 No 1000mL [facility] Kenalog (Triamcinol one) Kenalog (Triamcinol one) 0 02-12 00:00: 00 No 40mg [facility] Cyanocobala min Cyanocobala min 0 02-12 00:00: 00 No 1000mL [facility] Kenalog (Triamcinol one) Kenalog (Triamcinol one) 0 02-12 00:00: 00 No 40mg [facility] Cyanocobala min Cyanocobala min 0 02-12 00:00: 00 No 1000mL [facility] Kenalog (Triamcinol one) Kenalog (Triamcinol one) 0 02-12 00:00: 00 No 40mg [facility] Cyanocobala min Cyanocobala min 0 02-12 00:00: 00 No 1000mL [facility] Kenalog (Triamcinol one) Kenalog (Triamcinol one) 0 02-12 00:00: 00 No 40mg [facility] Cyanocobala min Cyanocobala min 0 02-12 00:00: 00 No 1000mL [facility] Kenalog (Triamcinol one) Kenalog (Triamcinol one) 0 02-12 00:00: 00 No 40mg [facility] Cyanocobala min Cyanocobala min 0 - 00:00: 00 No 1000mL [facility] Kenalog (Triamcinol one) Kenalog (Triamcinol one) 0 02-12 00:00: 00 No 40mg [facility] Cyanocobala min Cyanocobala min 0 02-12 00:00: 00 No 1000mL [facility] Kenalog (Triamcinol one) Kenalog (Triamcinol one) 0 02-12 00:00: 00 No 40mg [facility] Cyanocobala min Cyanocobala min 0 02-12 00:00: 00 No 1000mL [facility] Kenalog (Triamcinol one) Kenalog (Triamcinol one) 0 02-12 00:00: 00 No 40mg [facility] Cyanocobala min Cyanocobala min 0 02-12 00:00: 00 No 1000mL [facility] Kenalog (Triamcinol one) Kenalog (Triamcinol one) 0 02-12 00:00: 00 No 40mg [facility] Cyanocobala min Cyanocobala min 0 02-12 00:00: 00 No 1000mL [facility] Kenalog (Triamcinol one) Kenalog (Triamcinol one) 0 02-12 00:00: 00 No 40mg [facility] Cyanocobala min Cyanocobala min 0 02-12 00:00: 00 No 1000mL [facility] Kenalog (Triamcinol one) Kenalog (Triamcinol one) 0 02-12 00:00: 00 No 40mg [facility] Cyanocobala min Cyanocobala min 0 - 00:00: 00 No 1000mL [facility] Kenalog (Triamcinol one) Kenalog (Triamcinol one) 0 02-12 00:00: 00 No 40mg [facility] Cyanocobala min Cyanocobala min 0 02-12 00:00: 00 No 1000mL [facility] Kenalog (Triamcinol one) Kenalog (Triamcinol one) 0 - 00:00: 00 No 40mg [facility] Cyanocobala min Cyanocobala min 0 02-12 00:00: 00 No 1000mL [facility] Kenalog (Triamcinol one) Kenalog (Triamcinol one) 0 02-12 00:00: 00 No 40mg [facility] Cyanocobala min Cyanocobala min 0 02-12 00:00: 00 No 1000mL [facility] Kenalog (Triamcinol one) Kenalog (Triamcinol one) 0 02-12 00:00: 00 No 40mg [facility] Cyanocobala min Cyanocobala min 0 02-12 00:00: 00 No 1000mL [facility] Kenalog (Triamcinol one) Kenalog (Triamcinol one) 0 02-12 00:00: 00 No 40mg [facility] Cyanocobala min Cyanocobala min 0 02-12 00:00: 00 No 1000mL [facility] Kenalog (Triamcinol one) Kenalog (Triamcinol one) 0 02-12 00:00: 00 No 40mg [facility] Cyanocobala min Cyanocobala min 0 17 00:00: 00 No 1000mL [facility] Kenalog (Triamcinol one) Kenalog (Triamcinol one) 0 - 00:00: 00 No 40mg [facility] Cyanocobala min Cyanocobala min 0 -17 00:00: 00 No 1000mL [facility] Kenalog (Triamcinol one) Kenalog (Triamcinol one) 0 02-12 00:00: 00 No 40mg [facility] Cyanocobala min Cyanocobala min 0 02-12 00:00: 00 No 1000mL [facility] Kenalog (Triamcinol one) Kenalog (Triamcinol one) 0 02-12 00:00: 00 No 40mg [facility] Cyanocobala min Cyanocobala min 0 02-12 00:00: 00 No 1000mL [facility] Kenalog (Triamcinol one) Kenalog (Triamcinol one) 0 02-12 00:00: 00 No 40mg [facility] Cyanocobala min Cyanocobala min 0 02-12 00:00: 00 No 1000mL [facility] Kenalog (Triamcinol one) Kenalog (Triamcinol one) 0 02-12 00:00: 00 No 40mg [facility] Cyanocobala min Cyanocobala min 0 02-12 00:00: 00 No 1000mL [facility] Kenalog (Triamcinol one) Kenalog (Triamcinol one) 0 02-12 00:00: 00 No 40mg [facility] Cyanocobala min Cyanocobala min 0 02-12 00:00: 00 No 1000mL [facility] Kenalog (Triamcinol one) Kenalog (Triamcinol one) 0 02-12 00:00: 00 No 40mg [facility] Cyanocobala min Cyanocobala min 0 02-12 00:00: 00 No 1000mL [facility] Kenalog (Triamcinol one) Kenalog (Triamcinol one) 0 - 00:00: 00 No 40mg [facility] Cyanocobala min Cyanocobala min 0 02-12 00:00: 00 No 1000mL [facility] Kenalog (Triamcinol one) Kenalog (Triamcinol one) 0 - 00:00: 00 No 40mg [facility] Cyanocobala min Cyanocobala min 0 - 00:00: 00 No 1000mL [facility] Kenalog (Triamcinol one) Kenalog (Triamcinol one) 0 - 00:00: 00 No 40mg [facility] Cyanocobala min Cyanocobala min 0 02-12 00:00: 00 No 1000mL [facility] Kenalog (Triamcinol one) Kenalog (Triamcinol one) 0 02-12 00:00: 00 No 40mg [facility] Cyanocobala min Cyanocobala min 0 02-12 00:00: 00 No 1000mL [facility] Kenalog (Triamcinol one) Kenalog (Triamcinol one) 0 02-12 00:00: 00 No 40mg [facility] Cyanocobala min Cyanocobala min 0 02-12 00:00: 00 No 1000mL [facility] Kenalog (Triamcinol one) Kenalog (Triamcinol one) 0 02-12 00:00: 00 No 40mg [facility] Cyanocobala min Cyanocobala min 0 02-12 00:00: 00 No 1000mL [facility] Kenalog (Triamcinol one) Kenalog (Triamcinol one) 0 - 00:00: 00 No 40mg [facility] Cyanocobala min Cyanocobala min 0 -17 00:00: 00 No 1000mL [facility] Kenalog (Triamcinol one) Kenalog (Triamcinol one) 02-12 00:00: 00 No 40mg [facility] Cyanocobala min Cyanocobala min 02-12 00:00: 00 No 1000mL [facility] Kenalog (Triamcinol one) Kenalog (Triamcinol one) 02-12 00:00: 00 No 40mg [facility] Cyanocobala min Cyanocobala min 02-12 00:00: 00 No [facility]mL [facility] Kenalog (Triamcinol one) Kenalog (Triamcinol one) 02-12 00:00: 00 No 40mg [facility] Cyanocobala min Cyanocobala min 02-12 00:00: 00 No 1000mL [facility] hydrOXYzine (ATARAX) tablet 25 mg 01-28 18:45: 00 01-28 18:51 :00 No 25mg 25 mg, Oral, ONCE, 1 dose, On Fri01/28/23 at 1345, [facility] traMADol HCl 50 MG traMADol HCl 50 MG 01-27 00:00: 00 No 1{table t_as_ne eded} traMADol HCl 50 MG Bupivicaine [place] Bupivicaine [place] 15 00:00: 00 No 5mL [facility] Kenalog (Triamcinol one) Kenalog (Triamcinol one) 12-11 00:00: 00 No 1mL [facility] Bupivicaine [place] Bupivicaine [place] 0 15 00:00: 00 No 5mL [facility] Kenalog (Triamcinol one) Kenalog (Triamcinol one) 15 00:00: 00 No 1mL [facility] Bupivicaine [place] Bupivicaine [place] 15 00:00: 00 No [facility]mL [facility] Kenalog (Triamcinol one) Kenalog (Triamcinol one) 0 3-15 00:00: 00 No 1mL [facility] Bupivicaine [place] Bupivicaine [place] 0 -15 00:00: 00 No 5mL [facility] Kenalog (Triamcinol one) Kenalog (Triamcinol one) 0 3-15 00:00: 00 No 1mL [facility] Bupivicaine [place] Bupivicaine [place] 0 -15 00:00: 00 No 5mL [facility] Kenalog (Triamcinol one) Kenalog (Triamcinol one) -15 00:00: 00 No 1mL [facility] Bupivicaine [place] Bupivicaine [place] 0 315 00:00: 00 No 5mL [facility] Kenalog (Triamcinol one) Kenalog (Triamcinol one) 0 3-15 00:00: 00 No 1mL [facility] Bupivicaine [place] Bupivicaine [place] 0 15 00:00: 00 No 5mL [facility] Kenalog (Triamcinol one) Kenalog (Triamcinol one) 0 3-15 00:00: 00 No 1mL [facility] Bupivicaine [place] Bupivicaine [place] 0 3-15 00:00: 00 No 5mL [facility] Kenalog (Triamcinol one) Kenalog (Triamcinol one) 0 3-15 00:00: 00 No 1mL [facility] Bupivicaine [place] Bupivicaine [place] 0 3-15 00:00: 00 No 5mL [facility] Kenalog (Triamcinol one) Kenalog (Triamcinol one) 0 3-15 00:00: 00 No 1mL [facility] Bupivicaine [place] Bupivicaine [place] 0 3-15 00:00: 00 No 5mL [facility] Kenalog (Triamcinol one) Kenalog (Triamcinol one) 0 3-15 00:00: 00 No 1mL [facility] Bupivicaine [place] Bupivicaine [place] 0 3-15 00:00: 00 No 5mL [facility] Kenalog (Triamcinol one) Kenalog (Triamcinol one) 0 3-15 00:00: 00 No 1mL [facility] Bupivicaine [place] Bupivicaine [place] 0 3-15 00:00: 00 No 5mL [facility] Kenalog (Triamcinol one) Kenalog (Triamcinol one) 0 3-15 00:00: 00 No 1mL [facility] Bupivicaine [place] Bupivicaine [place] 0 3-15 00:00: 00 No 5mL [facility] Kenalog (Triamcinol one) Kenalog (Triamcinol one) 0 3-15 00:00: 00 No 1mL [facility] Bupivicaine [place] Bupivicaine [place] 0 3-15 00:00: 00 No 5mL [facility] Kenalog (Triamcinol one) Kenalog (Triamcinol one) 0 3-15 00:00: 00 No 1mL [facility] Bupivicaine [place] Bupivicaine [place] 0 3-15 00:00: 00 No 5mL [facility] Kenalog (Triamcinol one) Kenalog (Triamcinol one) 0 3-15 00:00: 00 No 1mL [facility] Bupivicaine [place] Bupivicaine [place] 2022-0 3-15 00:00: 00 No 5mL [facility] Kenalog (Triamcinol one) Kenalog (Triamcinol one) 0 3-15 00:00: 00 No 1mL [facility] Bupivicaine [place] Bupivicaine [place] 0 3-15 00:00: 00 No 5mL [facility] Kenalog (Triamcinol one) Kenalog (Triamcinol one) 0 3-15 00:00: 00 No 1mL [facility] Bupivicaine [place] Bupivicaine [place] 0 3-15 00:00: 00 No 5mL [facility] Kenalog (Triamcinol one) Kenalog (Triamcinol one) 0 3-15 00:00: 00 No 1mL [facility] Bupivicaine [place] Bupivicaine [place] 0 3-15 00:00: 00 No 5mL [facility] Kenalog (Triamcinol one) Kenalog (Triamcinol one) 0 3-15 00:00: 00 No 1mL [facility] Bupivicaine [place] Bupivicaine [place] 0 3-15 00:00: 00 No 5mL [facility] Kenalog (Triamcinol one) Kenalog (Triamcinol one) 0 3-15 00:00: 00 No 1mL [facility] Bupivicaine [place] Bupivicaine [place] 2022-0 3-15 00:00: 00 No 5mL [facility] Kenalog (Triamcinol one) Kenalog (Triamcinol one) 0 3-15 00:00: 00 No 1mL [facility] Bupivicaine [place] Bupivicaine [place] 2022-0 3-15 00:00: 00 No 5mL [facility] Kenalog (Triamcinol one) Kenalog (Triamcinol one) 0 3-15 00:00: 00 No 1mL [facility] Bupivicaine [place] Bupivicaine [place] 2023-0 3-15 00:00: 00 No 5mL [facility] Kenalog (Triamcinol one) Kenalog (Triamcinol one) 0 3-15 00:00: 00 No 1mL [facility] Bupivicaine [place] Bupivicaine [place] 0 315 00:00: 00 No 5mL [facility] Kenalog (Triamcinol one) Kenalog (Triamcinol one) 0 3-15 00:00: 00 No 1mL [facility] Bupivicaine [place] Bupivicaine [place] 0 15 00:00: 00 No 5mL [facility] Kenalog (Triamcinol one) Kenalog (Triamcinol one) 0 15 00:00: 00 No 1mL [facility] Bupivicaine [place] Bupivicaine [place] 0 315 00:00: 00 No 5mL [facility] Kenalog (Triamcinol one) Kenalog (Triamcinol one) 0 315 00:00: 00 No 1mL [facility] Bupivicaine [place] Bupivicaine [place] 0 15 00:00: 00 No 5mL [facility] Kenalog (Triamcinol one) Kenalog (Triamcinol one) 0 3-15 00:00: 00 No 1mL [facility] Bupivicaine [place] Bupivicaine [place] 0 3-15 00:00: 00 No 5mL [facility] Kenalog (Triamcinol one) Kenalog (Triamcinol one) 0 3-15 00:00: 00 No 1mL [facility] Bupivicaine [place] Bupivicaine [place] 2022-0 3-15 00:00: 00 No 5mL [facility] Kenalog (Triamcinol one) Kenalog (Triamcinol one) 0 3-15 00:00: 00 No 1mL [facility] Bupivicaine [place] Bupivicaine [place] 0 3-15 00:00: 00 No 5mL [facility] Kenalog (Triamcinol one) Kenalog (Triamcinol one) 0 3-15 00:00: 00 No 1mL [facility] Bupivicaine [place] Bupivicaine [place] 0 3-15 00:00: 00 No 5mL [facility] Kenalog (Triamcinol one) Kenalog (Triamcinol one) 0 3-15 00:00: 00 No 1mL [facility] Bupivicaine [place] Bupivicaine [place] 0 315 00:00: 00 No 5mL [facility] Kenalog (Triamcinol one) Kenalog (Triamcinol one) 0 3-15 00:00: 00 No 1mL [facility] Bupivicaine [place] Bupivicaine [place] 0 3-15 00:00: 00 No 5mL [facility] Kenalog (Triamcinol one) Kenalog (Triamcinol one) 0 3-15 00:00: 00 No 1mL [facility] Bupivicaine [place] Bupivicaine [place] 0 3-15 00:00: 00 No 5mL [facility] Kenalog (Triamcinol one) Kenalog (Triamcinol one) 0 3-15 00:00: 00 No 1mL [facility] Bupivicaine [place] Bupivicaine [place] 0 3-15 00:00: 00 No 5mL [facility] Kenalog (Triamcinol one) Kenalog (Triamcinol one) 0 3-15 00:00: 00 No 1mL [facility] Bupivicaine [place] Bupivicaine [place] 0 3-15 00:00: 00 No 5mL [facility] Kenalog (Triamcinol one) Kenalog (Triamcinol one) 0 3-15 00:00: 00 No 1mL [facility] Bupivicaine [place] Bupivicaine [place] 0 3-15 00:00: 00 No 5mL [facility] Kenalog (Triamcinol one) Kenalog (Triamcinol one) 0 3-15 00:00: 00 No 1mL [facility] Bupivicaine [place] Bupivicaine [place] 0 3-15 00:00: 00 No 5mL [facility] Kenalog (Triamcinol one) Kenalog (Triamcinol one) 0 3-15 00:00: 00 No 1mL [facility] Bupivicaine [place] Bupivicaine [place] 0 3-15 00:00: 00 No 5mL [facility] Kenalog (Triamcinol one) Kenalog (Triamcinol one) 0 3-15 00:00: 00 No 1mL [facility] Bupivicaine [place] Bupivicaine [place] 0 3-15 00:00: 00 No 5mL [facility] Kenalog (Triamcinol one) Kenalog (Triamcinol one) 0 3-15 00:00: 00 No 1mL [facility] Bupivicaine [place] Bupivicaine [place] 0 3-15 00:00: 00 No 5mL [facility] Kenalog (Triamcinol one) Kenalog (Triamcinol one) 0 3-15 00:00: 00 No 1mL [facility] Kenalog (Triamcinol one) Kenalog (Triamcinol one) 0 2-16 00:00: 00 No 40mg [facility] Bupivicaine [place] Bupivicaine [place] 2022-0 2-16 00:00: 00 No 2.5mg [facility] Kenalog (Triamcinol one) Kenalog (Triamcinol one) 0 2-16 00:00: 00 No 1mL [facility] Kenalog (Triamcinol one) Kenalog (Triamcinol one) 0 2-16 00:00: 00 No 40mg [facility] Bupivicaine [place] Bupivicaine [place] 0 2-16 00:00: 00 No 2.5mg [facility] Kenalog (Triamcinol one) Kenalog (Triamcinol one) 0 2-16 00:00: 00 No 1mL [facility] Kenalog (Triamcinol one) Kenalog (Triamcinol one) 0 2-16 00:00: 00 No 40mg [facility] Bupivicaine [place] Bupivicaine [place] 0 2-16 00:00: 00 No 2.5mg [facility] Kenalog (Triamcinol one) Kenalog (Triamcinol one) 0 2-16 00:00: 00 No 1mL [facility] Kenalog (Triamcinol one) Kenalog (Triamcinol one) 0 2-16 00:00: 00 No 40mg [facility] Bupivicaine [place] Bupivicaine [place] 0 2-16 00:00: 00 No 2.5mg [facility] Kenalog (Triamcinol one) Kenalog (Triamcinol one) 0 2-16 00:00: 00 No 1mL [facility] Kenalog (Triamcinol one) Kenalog (Triamcinol one) 0 2-16 00:00: 00 No 40mg [facility] Bupivicaine [place] Bupivicaine [place] 0 2-16 00:00: 00 No 2.5mg [facility] Kenalog (Triamcinol one) Kenalog (Triamcinol one) 0 2-16 00:00: 00 No 1mL [facility] Kenalog (Triamcinol one) Kenalog (Triamcinol one) 0 2-16 00:00: 00 No 40mg [facility] Bupivicaine [place] Bupivicaine [place] 0 2-16 00:00: 00 No 2.5mg [facility] Kenalog (Triamcinol one) Kenalog (Triamcinol one) 0 2-16 00:00: 00 No 1mL [facility] Kenalog (Triamcinol one) Kenalog (Triamcinol one) 0 -16 00:00: 00 No 40mg [facility] Bupivicaine [place] Bupivicaine [place] 0 2-16 00:00: 00 No 2.5mg [facility] Kenalog (Triamcinol one) Kenalog (Triamcinol one) 0 2-16 00:00: 00 No 1mL [facility] Kenalog (Triamcinol one) Kenalog (Triamcinol one) 0 2-16 00:00: 00 No 40mg [facility] Bupivicaine [place] Bupivicaine [place] 0 2-16 00:00: 00 No 2.5mg [facility] Kenalog (Triamcinol one) Kenalog (Triamcinol one) 0 2-16 00:00: 00 No 1mL [facility] Kenalog (Triamcinol one) Kenalog (Triamcinol one) 0 2-16 00:00: 00 No 40mg [facility] Bupivicaine [place] Bupivicaine [place] 0 2-16 00:00: 00 No 2.5mg [facility] Kenalog (Triamcinol one) Kenalog (Triamcinol one) 0 2-16 00:00: 00 No 1mL [facility] Kenalog (Triamcinol one) Kenalog (Triamcinol one) 0 2-16 00:00: 00 No 40mg [facility] Bupivicaine [place] Bupivicaine [place] 0 2-16 00:00: 00 No 2.5mg [facility] Kenalog (Triamcinol one) Kenalog (Triamcinol one) 0 2-16 00:00: 00 No 1mL [facility] Kenalog (Triamcinol one) Kenalog (Triamcinol one) 0 2-16 00:00: 00 No 40mg [facility] Bupivicaine [place] Bupivicaine [place] 0 2-16 00:00: 00 No 2.5mg [facility] Kenalog (Triamcinol one) Kenalog (Triamcinol one) 0 2-16 00:00: 00 No 1mL [facility] Kenalog (Triamcinol one) Kenalog (Triamcinol one) 0 2-16 00:00: 00 No 40mg [facility] Bupivicaine [place] Bupivicaine [place] 0 2-16 00:00: 00 No 2.5mg [facility] Kenalog (Triamcinol one) Kenalog (Triamcinol one) 0 2-16 00:00: 00 No 1mL [facility] Kenalog (Triamcinol one) Kenalog (Triamcinol one) 0 2-16 00:00: 00 No 40mg [facility] Bupivicaine [place] Bupivicaine [place] 0 2-16 00:00: 00 No 2.5mg [facility] Kenalog (Triamcinol one) Kenalog (Triamcinol one) 0 2-16 00:00: 00 No 1mL [facility] Kenalog (Triamcinol one) Kenalog (Triamcinol one) 0 2-16 00:00: 00 No 40mg [facility] Bupivicaine [place] Bupivicaine [place] 0 16 00:00: 00 No 2.5mg [facility] Kenalog (Triamcinol one) Kenalog (Triamcinol one) 0 2-16 00:00: 00 No 1mL [facility] Kenalog (Triamcinol one) Kenalog (Triamcinol one) 0 -16 00:00: 00 No 40mg [facility] Bupivicaine [place] Bupivicaine [place] 0 16 00:00: 00 No 2.5mg [facility] Kenalog (Triamcinol one) Kenalog (Triamcinol one) 0 2-16 00:00: 00 No 1mL [facility] Kenalog (Triamcinol one) Kenalog (Triamcinol one) 0 -16 00:00: 00 No 40mg [facility] Bupivicaine [place] Bupivicaine [place] 0 -16 00:00: 00 No 2.5mg [facility] Kenalog (Triamcinol one) Kenalog (Triamcinol one) 0 2-16 00:00: 00 No 1mL [facility] Kenalog (Triamcinol one) Kenalog (Triamcinol one) 0 2-16 00:00: 00 No 40mg [facility] Bupivicaine [place] Bupivicaine [place] 0 -16 00:00: 00 No 2.5mg [facility] Kenalog (Triamcinol one) Kenalog (Triamcinol one) 0 2-16 00:00: 00 No 1mL [facility] Kenalog (Triamcinol one) Kenalog (Triamcinol one) 0 2-16 00:00: 00 No 40mg [facility] Bupivicaine [place] Bupivicaine [place] 0 2-16 00:00: 00 No 2.5mg [facility] Kenalog (Triamcinol one) Kenalog (Triamcinol one) 0 2-16 00:00: 00 No 1mL [facility] Kenalog (Triamcinol one) Kenalog (Triamcinol one) 0 2-16 00:00: 00 No 40mg [facility] Bupivicaine [place] Bupivicaine [place] 0 2-16 00:00: 00 No 2.5mg [facility] Kenalog (Triamcinol one) Kenalog (Triamcinol one) 0 2-16 00:00: 00 No 1mL [facility] Kenalog (Triamcinol one) Kenalog (Triamcinol one) 0 2-16 00:00: 00 No 40mg [facility] Bupivicaine [place] Bupivicaine [place] 0 2-16 00:00: 00 No 2.5mg [facility] Kenalog (Triamcinol one) Kenalog (Triamcinol one) 0 2-16 00:00: 00 No 1mL [facility] Kenalog (Triamcinol one) Kenalog (Triamcinol one) 0 2-16 00:00: 00 No 40mg [facility] Bupivicaine [place] Bupivicaine [place] 0 2-16 00:00: 00 No 2.5mg [facility] Kenalog (Triamcinol one) Kenalog (Triamcinol one) 0 2-16 00:00: 00 No 1mL [facility] Kenalog (Triamcinol one) Kenalog (Triamcinol one) 0 2-16 00:00: 00 No 40mg [facility] Bupivicaine [place] Bupivicaine [place] 16 00:00: 00 No 2.5mg [facility] Kenalog (Triamcinol one) Kenalog (Triamcinol one) 0 16 00:00: 00 No 1mL [facility] Kenalog (Triamcinol one) Kenalog (Triamcinol one) 0 -16 00:00: 00 No 40mg [facility] Bupivicaine [place] Bupivicaine [place] 0 16 00:00: 00 No 2.5mg [facility] Kenalog (Triamcinol one) Kenalog (Triamcinol one) 0 16 00:00: 00 No 1mL [facility] Kenalog (Triamcinol one) Kenalog (Triamcinol one) 0 -16 00:00: 00 No 40mg [facility] Bupivicaine [place] Bupivicaine [place] 16 00:00: 00 No 2.5mg [facility] Kenalog (Triamcinol one) Kenalog (Triamcinol one) 0 16 00:00: 00 No 1mL [facility] Kenalog (Triamcinol one) Kenalog (Triamcinol one) 0 16 00:00: 00 No 40mg [facility] Bupivicaine [place] Bupivicaine [place] 16 00:00: 00 No 2.5mg [facility] Kenalog (Triamcinol one) Kenalog (Triamcinol one) 0 -16 00:00: 00 No 1mL [facility] Kenalog (Triamcinol one) Kenalog (Triamcinol one) 0 2-16 00:00: 00 No 40mg [facility] Bupivicaine [place] Bupivicaine [place] 0 2-16 00:00: 00 No 2.5mg [facility] Kenalog (Triamcinol one) Kenalog (Triamcinol one) 0 2-16 00:00: 00 No 1mL [facility] Kenalog (Triamcinol one) Kenalog (Triamcinol one) 0 2-16 00:00: 00 No 40mg [facility] Bupivicaine [place] Bupivicaine [place] 0 2-16 00:00: 00 No 2.5mg [facility] Kenalog (Triamcinol one) Kenalog (Triamcinol one) 0 2-16 00:00: 00 No 1mL [facility] Kenalog (Triamcinol one) Kenalog (Triamcinol one) 0 2-16 00:00: 00 No 40mg [facility] Bupivicaine [place] Bupivicaine [place] 0 2-16 00:00: 00 No 2.5mg [facility] Kenalog (Triamcinol one) Kenalog (Triamcinol one) 0 2-16 00:00: 00 No 1mL [facility] Kenalog (Triamcinol one) Kenalog (Triamcinol one) 0 2-16 00:00: 00 No 40mg [facility] Bupivicaine [place] Bupivicaine [place] 0 2-16 00:00: 00 No 2.5mg [facility] Kenalog (Triamcinol one) Kenalog (Triamcinol one) 0 2-16 00:00: 00 No 1mL [facility] Kenalog (Triamcinol one) Kenalog (Triamcinol one) 0 2-16 00:00: 00 No 40mg [facility] Bupivicaine [place] Bupivicaine [place] 0 2-16 00:00: 00 No 2.5mg [facility] Kenalog (Triamcinol one) Kenalog (Triamcinol one) 0 2-16 00:00: 00 No 1mL [facility] Kenalog (Triamcinol one) Kenalog (Triamcinol one) 0 2-16 00:00: 00 No 40mg [facility] Bupivicaine [place] Bupivicaine [place] 0 2-16 00:00: 00 No 2.5mg [facility] Kenalog (Triamcinol one) Kenalog (Triamcinol one) 0 2-16 00:00: 00 No 1mL [facility] Kenalog (Triamcinol one) Kenalog (Triamcinol one) 0 -16 00:00: 00 No 40mg [facility] Bupivicaine [place] Bupivicaine [place] 0 2-16 00:00: 00 No 2.5mg [facility] Kenalog (Triamcinol one) Kenalog (Triamcinol one) 0 2-16 00:00: 00 No 1mL [facility] Kenalog (Triamcinol one) Kenalog (Triamcinol one) 0 2-16 00:00: 00 No 40mg [facility] Bupivicaine [place] Bupivicaine [place] 0 2-16 00:00: 00 No 2.5mg [facility] Kenalog (Triamcinol one) Kenalog (Triamcinol one) 0 2-16 00:00: 00 No 1mL [facility] Kenalog (Triamcinol one) Kenalog (Triamcinol one) 0 2-16 00:00: 00 No 40mg [facility] Bupivicaine [place] Bupivicaine [place] 0 2-16 00:00: 00 No 2.5mg [facility] Kenalog (Triamcinol one) Kenalog (Triamcinol one) 0 2-16 00:00: 00 No 1mL [facility] Kenalog (Triamcinol one) Kenalog (Triamcinol one) 2-16 00:00: 00 No 40mg [facility] Bupivicaine [place] Bupivicaine [place] -16 00:00: 00 No 2.5mg [facility] Kenalog (Triamcinol one) Kenalog (Triamcinol one) 2-16 00:00: 00 No 1mL [facility] Kenalog (Triamcinol one) Kenalog (Triamcinol one) 2-16 00:00: 00 No 40mg [facility] Bupivicaine [place] Bupivicaine [place] 16 00:00: 00 No 2.5mg [facility] Kenalog (Triamcinol one) Kenalog (Triamcinol one) 2-16 00:00: 00 No 1mL [facility] Kenalog (Triamcinol one) Kenalog (Triamcinol one) 2-16 00:00: 00 No 40mg [facility] Bupivicaine [place] Bupivicaine [place] 16 00:00: 00 No 2.5mg [facility] Kenalog (Triamcinol one) Kenalog (Triamcinol one) 2-16 00:00: 00 No 1mL [facility] traMADol HCl 50 MG traMADol HCl 50 MG 2-16 00:00: 00 No 1{table t_as_ne eded} traMADol HCl 50 MG Kenalog (Triamcinol one) Kenalog (Triamcinol one) 0 2-16 00:00: 00 No 1mL [facility] Kenalog (Triamcinol one) Kenalog (Triamcinol one) 0 2-16 00:00: 00 No 40mg [facility] Bupivicaine [place] Bupivicaine [place] 16 00:00: 00 No 2.5mg [facility] Kenalog (Triamcinol one) Kenalog (Triamcinol one) 16 00:00: 00 No 40mg [facility] Bupivicaine [place] Bupivicaine [place] 16 00:00: 00 No 2.5mg [facility] Kenalog (Triamcinol one) Kenalog (Triamcinol one) -16 00:00: 00 No 1mL [facility] Kenalog (Triamcinol one) Kenalog (Triamcinol one) 11-14 00:00: 00 No 40mg [facility] Bupivicaine [place] Bupivicaine [place] 11-14 00:00: 00 No 2.5mg [facility] Kenalog (Triamcinol one) Kenalog (Triamcinol one) 16 00:00: 00 No 1mL [facility] Kenalog (Triamcinol one) Kenalog (Triamcinol one) 16 00:00: 00 No 40mg [facility] Bupivicaine [place] Bupivicaine [place] 11-14 00:00: 00 No 2.5mg [facility] Kenalog (Triamcinol one) Kenalog (Triamcinol one) 16 00:00: 00 No 1mL [facility] dextrose 50 % in water (D50W) injection 50 mL 2021-09 19:30: 00 08-30 18:42 :00 No 50mL 50 mL, Slow IV Push, ONCE, 1 dose, On Fri08/30/22 at 1330, [facility] 0.9% (NS) bolus infusion 1,000 mL 2021-09 17:45: 00 08-30 19:38 :00 No 1000mL at 999 mL/hr, 1,000 mL, IV Infusion, ONCE, 1 dose, On Fri08/30/22 at 1145, [facility] NaCl 0.9% (NS) bolus infusion 1,000 mL 2021-09 16:00: 00 08-30 16:53 :00 No 1000mL at 999 mL/hr, 1,000 mL, IV Infusion, ONCE, 1 dose, On Fri08/30/22 at 1000, [facility] NaCl 0.9% (NS) bolus infusion 1,000 mL 2021-09 14:45: 00 08-30 15:24 :00 No 1000mL at 999 mL/hr, 1,000 mL, IV Infusion, ONCE, 1 dose, On Fri08/30/22 at 0845, [facility] carvediloL 3.125 mg tablet 05-25 00:00: 00 06-25 04:59 :00 No [id number] 3.125mg Take 1 tablet by mouth in the morning and 1 tablet in the evening. Take with meals. Do all this for 30 days. [facility] nicotine 21 mg/24 hr patch 05-24 17:45: 28 Yes 1{patch } Apply 1 Patch to area(s) every 24 (twenty-fo ur) hours. Patient reports he smokes 13 cigarettes per day. [facility] hydrOXYzine (ATARAX) tablet 10 mg 05-24 15:14: 53 Yes 10mg 10 mg, Oral, Q6HPRN, Starting on Fri05/24/22 at 1014, Until Discontinu ed, Routine, Anxiety, Itching [facility] polyethylen e glycol 3350 powder 17 g 05-24 14:00: 00 Yes 17g 17 g, Oral, DAILY, First dose on Fri05/24/22 at 0900, Until Discontinu ed, Routine [facility] pantoprazol e (PROTONIX) EC tablet 40 mg 05-24 14:00: 00 Yes 40mg 40 mg, Oral, DAILY, First dose on Fri05/24/22 at 0900, Until Discontinu ed, Routine [facility] isosorbide mononitrate (IMDUR) 24 hr tablet 30 mg 05-24 14:00: 00 Yes 30mg 30 mg, Oral, DAILY, First dose on Fri05/24/22 at 0900, Until Discontinu ed, Routine [facility] atorvastati n (LIPITOR) tablet 80 mg 05-24 14:00: 00 Yes 80mg 80 mg, Oral, DAILY, First dose on Fri05/24/22 at 0900, Until Discontinu ed, Routine [facility] aspirin chewable tablet 81 mg 05-24 14:00: 00 Yes 81mg 81 mg, Oral, DAILY, First dose on Fri05/24/22 at 0900, Until Discontinu ed, Routine [facility] carvediloL (COREG) tablet 3.125 mg 05-24 13:00: 00 Yes 3.125mg 3.125 mg, Oral, BID MEALS, First dose on Fri05/24/22 at 0800, Until Discontinu ed, Routine [facility] NaCl 0.9% (NS) IV infusion 1,000 mL 05-24 01:30: 00 Yes 1000mL at 75 mL/hr, IV Infusion, CONTINUOUS , Starting on Fri05/23/22 at 2030, Until Discontinu ed, Routine [facility] sennosides- docusate sodium (SENOKOT-S) 8.6-50 mg per tablet 1 tablet 05-24 01:00: 00 Yes 1{tbl} 1 tablet, Oral, BID, First dose on Fri05/23/22 at 2000, Until Discontinu ed, Routine [facility] enoxaparin (LOVENOX) injection 90 mg 05-24 01:00: 00 Yes 1mg/kg 90 mg (rounded from 93 mg = 1 mg/kg ?93 kg), Subcutaneo us, Q12H, First dose (after last modificati on) on Fri05/23/22 at 2000, Until Discontinu ed, Routine [facility] nicotine (NICODERM) 21 mg/24 hr patch 1 Patch 05-24 00:45: 00 Yes 1{patch } 1 Patch, Topical, Administer over 24 Hours, Q24H, First dose on Fri05/23/22 at 1945, Until Discontinu ed, Routine [facility] hydrOXYzine 10 mg tablet 05-24 00:00: 00 06-24 04:59 :00 No [id number] 10mg Take 1 tablet by mouth every 6 (six) hours as needed for Anxiety for up to 30 days. [facility] enoxaparin (LOVENOX) injection 40 mg 05-23 22:00: 00 05-23 23:48 :16 No 40mg 40 mg, Subcutaneo us, DAILY, First dose on Fri05/23/22 at 1700, Until Discontinu ed, Routine [facility] ondansetron (ZOFRAN (PF)) injection 4 mg 05-23 19:56: 03 Yes 4mg 4 mg, Slow IV Push, Q6HPRN, Starting on Fri05/23/22 at 1456, Until Discontinu ed, Routine, Nausea and Vomiting (N/V) [facility] HYDROcodone -acetaminop hen (NORCO 5) 5-325 mg tablet 1 tablet 05-23 19:55: 52 05-25 19:54 :52 No 1{tbl} 1 tablet, Oral, Q6HPRN, Starting on Fri05/23/22 at 1455, Until 05/25/22 at 1454, Routine, Pain (scale 4-6) [facility] acetaminoph en (TYLENOL) tablet 650 mg 05-23 19:55: 49 Yes 650mg 650 mg, Oral, Q6HPRN, Starting on Fri05/23/22 at 1455, Until Discontinu ed, Routine, Pain (scale 1-3) [facility] NaCl 0.9% (NS) bolus infusion 1,000 mL 05-23 18:45: 00 05-23 22:25 :22 No 1000mL at 999 mL/hr, 1,000 mL, IV Infusion, ONCE, 1 dose, On Nohemy 05/23/22 at 1345, VANNA [facility] NaCl 0.9% (NS) bolus infusion 1,000 mL 05-23 15:15: 00 05-23 18:21 :00 No 1000mL at 999 mL/hr, 1,000 mL, IV Infusion, ONCE, 1 dose, On Nohemy 05/23/22 at 1015, VANNA [facility] LORazepam (ATIVAN) injection 1 mg 05-23 13:30: 00 05-23 13:45 :00 No 1mg 1 mg, Slow IV Push, ONCE, 1 dose, On Nohemy 05/23/22 at 0830, STAT
Is the medication being used for status epilepticu s? No [facility] Eszopiclone 1 MG Eszopiclone 1 MG [...] HYDROcodone -acetaminop hen (NORCO) 10-325 mg tablet - 00:00: 00 10-08 05:59 :00 No [id number] 1{tbl} Take 1 tablet by mouth every 8 (eight) hours as needed for Pain (scale 7-10) for up to 7 days. Indication s: acute pain [facility] Kenalog (Triamcinol one) Kenalog (Triamcinol one) 2020-09 0- 00:00: 00 No 40mg [facility] Kenalog (Triamcinol one) Kenalog (Triamcinol one) 2020-09 0- 00:00: 00 No 40mg [facility] Kenalog (Triamcinol one) Kenalog (Triamcinol one) 2020-09 0- 00:00: 00 No 40mg [facility] Kenalog (Triamcinol one) Kenalog (Triamcinol one) 2020-09 0-13 00:00: 00 No 40mg [facility] Kenalog (Triamcinol one) Kenalog (Triamcinol one) 2020-09 0- 00:00: 00 No 40mg [facility] Kenalog (Triamcinol one) Kenalog (Triamcinol one) 2020-09 0 00:00: 00 No 40mg [facility] Kenalog (Triamcinol one) Kenalog (Triamcinol one) 2020-09 0 00:00: 00 No 40mg [facility] Kenalog (Triamcinol one) Kenalog (Triamcinol one) 2020-09 0 00:00: 00 No 40mg [facility] Kenalog (Triamcinol one) Kenalog (Triamcinol one) 2020-09 0 00:00: 00 No 40mg [facility] Kenalog (Triamcinol one) Kenalog (Triamcinol one) 2020-09 0 00:00: 00 No 40mg [facility] Kenalog (Triamcinol one) Kenalog (Triamcinol one) 2020-09 0- 00:00: 00 No 40mg [facility] Kenalog (Triamcinol one) Kenalog (Triamcinol one) 2020-09 0- 00:00: 00 No 40mg [facility] Kenalog (Triamcinol one) Kenalog (Triamcinol one) 2020-09 0-13 00:00: 00 No 40mg [facility] Kenalog (Triamcinol one) Kenalog (Triamcinol one) 2020-09 0-13 00:00: 00 No 40mg [facility] Kenalog (Triamcinol one) Kenalog (Triamcinol one) 2020-09 0-13 00:00: 00 No 40mg [facility] Kenalog (Triamcinol one) Kenalog (Triamcinol one) 2020-09 0-13 00:00: 00 No 40mg [facility] Kenalog (Triamcinol one) Kenalog (Triamcinol one) 2020-09 0-13 00:00: 00 No 40mg [facility] Kenalog (Triamcinol one) Kenalog (Triamcinol one) 2020-09 0- 00:00: 00 No 40mg [facility] Kenalog (Triamcinol one) Kenalog (Triamcinol one) 2020-09 0-13 00:00: 00 No 40mg [facility] Kenalog (Triamcinol one) Kenalog (Triamcinol one) 2020-09 0- 00:00: 00 No 40mg [facility] Kenalog (Triamcinol one) Kenalog (Triamcinol one) 2020-09 0 00:00: 00 No 40mg [facility] Kenalog (Triamcinol one) Kenalog (Triamcinol one) 2020-09 0-13 00:00: 00 No 40mg [facility] Kenalog (Triamcinol one) Kenalog (Triamcinol one) 2020-09 0-13 00:00: 00 No 40mg [facility] Kenalog (Triamcinol one) Kenalog (Triamcinol one) 2020-09 0-13 00:00: 00 No 40mg [facility] Kenalog (Triamcinol one) Kenalog (Triamcinol one) 2020-09 0-13 00:00: 00 No 40mg [facility] Kenalog (Triamcinol one) Kenalog (Triamcinol one) 2020-09 0-13 00:00: 00 No 40mg [facility] Kenalog (Triamcinol one) Kenalog (Triamcinol one) 2020-09 0-13 00:00: 00 No 40mg [facility] Kenalog (Triamcinol one) Kenalog (Triamcinol one) 2020-09 0-13 00:00: 00 No 40mg [facility] Kenalog (Triamcinol one) Kenalog (Triamcinol one) 2020-09 0- 00:00: 00 No 40mg [facility] Kenalog (Triamcinol one) Kenalog (Triamcinol one) 2020-09 0 00:00: 00 No 40mg [facility] Kenalog (Triamcinol one) Kenalog (Triamcinol one) 2020-09 0- 00:00: 00 No 40mg [facility] Kenalog (Triamcinol one) Kenalog (Triamcinol one) 2020-09 0 00:00: 00 No 40mg [facility] Kenalog (Triamcinol one) Kenalog (Triamcinol one) 2020-09 0 00:00: 00 No 40mg [facility] Kenalog (Triamcinol one) Kenalog (Triamcinol one) 2020-09 0 00:00: 00 No 40mg [facility] [place] (Triamcinol one) Kenalog (Triamcinol one) 2020-09 0-13 00:00: 00 No 40mg [facility] [place] (Triamcinol one) Kenalog (Triamcinol one) 2020-09 0-13 00:00: 00 No 40mg [facility] [place] (Triamcinol one) Kenalog (Triamcinol one) 2020-09 0-13 00:00: 00 No 40mg [facility] [place] (Triamcinol one) Kenalog (Triamcinol one) 2020-09 0-13 00:00: 00 No 40mg [facility] [place] (Triamcinol one) Kenalog (Triamcinol one) 2020-09 0-13 00:00: 00 No 40mg [facility] [place] (Triamcinol one) Kenalog (Triamcinol one) 2020-09 0-13 00:00: 00 No 40mg [facility] [place] (Triamcinol one) Kenalog (Triamcinol one) 2020-09 0-13 00:00: 00 No 40mg [facility] [place] (Triamcinol one) Kenalog (Triamcinol one) 2020-09 0 00:00: 00 No 40mg [facility] [place] (Triamcinol one) Kenalog (Triamcinol one) 2020-09 0- 00:00: 00 No 40mg [facility] [place] (Triamcinol one) Kenalog (Triamcinol one) 2020-09 0- 00:00: 00 No 40mg [facility] [place] (Triamcinol one) Kenalog (Triamcinol one) 2020-09 0 00:00: 00 No 40mg [facility] [place] (Triamcinol one) Kenalog (Triamcinol one) 2020-09 0-13 00:00: 00 No 40mg [facility] [place] (Triamcinol one) Kenalog (Triamcinol one) 2020-09 0-13 00:00: 00 No 40mg [facility] [place] (Triamcinol one) Kenalog (Triamcinol one) 2020-09 0-13 00:00: 00 No 40mg [facility] [place] (Triamcinol one) Kenalog (Triamcinol one) 2020-09 0-13 00:00: 00 No 40[facility] Benzonatate 200 MG Benzonatate 200 MG 2020-09 0-13 00:00: 07-21 00:00 :00 No 1{capsu le} TID Benzonatat e 200 MG Kenalog (Triamcinol one) Kenalog (Triamcinol one) 06-26 00:00: 00 No 40mg [facility] Bupivicaine [place] Bupivicaine [place] 06-26 00:00: 00 No 2.5mg [facility] Kenalog (Triamcinol one) Kenalog (Triamcinol one) 06-26 00:00: 00 No 40mg [facility] Bupivicaine [place] Bupivicaine [place] 06-26 00:00: 00 No 2.5mg [facility] Kenalog (Triamcinol one) Kenalog (Triamcinol one) 06-26 00:00: 00 No 40mg [facility] Bupivicaine [place] Bupivicaine [place] 06-26 00:00: 00 No 2.5mg [facility] Kenalog (Triamcinol one) Kenalog (Triamcinol one) 06-26 00:00: 00 No 40mg [facility] Bupivicaine [place] Bupivicaine [place] 06-26 00:00: 00 No 2.5mg [facility] Kenalog (Triamcinol one) Kenalog (Triamcinol one) 06-26 00:00: 00 No 40mg [facility] Bupivicaine [place] Bupivicaine [place] 0 06-26 00:00: 00 No 2.5mg [facility] Kenalog (Triamcinol one) Kenalog (Triamcinol one) 06-26 00:00: 00 No 40mg [facility] Bupivicaine [place] Bupivicaine [place] 0 06-26 00:00: 00 No 2.5mg [facility] Kenalog (Triamcinol one) Kenalog (Triamcinol one) 06-26 00:00: 00 No 40mg [facility] Bupivicaine [place] Bupivicaine [place] 06-26 00:00: 00 No 2.5mg [facility] Kenalog (Triamcinol one) Kenalog (Triamcinol one) 06-26 00:00: 00 No 40mg [facility] Bupivicaine [place] Bupivicaine [place] 06-26 00:00: 00 No 2.5mg [facility] Kenalog (Triamcinol one) Kenalog (Triamcinol one) 06-26 00:00: 00 No 40mg [facility] Bupivicaine [place] Bupivicaine [place] 06-26 00:00: 00 No 2.5mg [facility] Kenalog (Triamcinol one) Kenalog (Triamcinol one) 06-26 00:00: 00 No 40mg [facility] Bupivicaine [place] Bupivicaine [place] 06-26 00:00: 00 No 2.5mg [facility] Kenalog (Triamcinol one) Kenalog (Triamcinol one) 06-26 00:00: 00 No 40mg [facility] Bupivicaine [place] Bupivicaine [place] 06-26 00:00: 00 No 2.5mg [facility] Kenalog (Triamcinol one) Kenalog (Triamcinol one) 06-26 00:00: 00 No 40mg [facility] Bupivicaine [place] Bupivicaine [place] 0 06-26 00:00: 00 No 2.5mg [facility] Kenalog (Triamcinol one) Kenalog (Triamcinol one) 06-26 00:00: 00 No 40mg [facility] Bupivicaine [place] Bupivicaine [place] 0 06-26 00:00: 00 No 2.5mg [facility] Kenalog (Triamcinol one) Kenalog (Triamcinol one) 0 06-26 00:00: 00 No 40mg [facility] Bupivicaine [place] Bupivicaine [place] 0 06-26 00:00: 00 No 2.5mg [facility] Kenalog (Triamcinol one) Kenalog (Triamcinol one) 0 06-26 00:00: 00 No 40mg [facility] Bupivicaine [place] Bupivicaine [place] 0 06-26 00:00: 00 No 2.5mg [facility] Kenalog (Triamcinol one) Kenalog (Triamcinol one) 0 06-26 00:00: 00 No 40mg [facility] Bupivicaine [place] Bupivicaine [place] 0 06-26 00:00: 00 No 2.5mg [facility] Kenalog (Triamcinol one) Kenalog (Triamcinol one) 06-26 00:00: 00 No 40mg [facility] Bupivicaine [place] Bupivicaine [place] 0 06-26 00:00: 00 No 2.5mg [facility] Kenalog (Triamcinol one) Kenalog (Triamcinol one) 0 06-26 00:00: 00 No 40mg [facility] Bupivicaine [place] Bupivicaine [place] 0 06-26 00:00: 00 No 2.5mg [facility] Kenalog (Triamcinol one) Kenalog (Triamcinol one) 0 06-26 00:00: 00 No 40mg [facility] Bupivicaine [place] Bupivicaine [place] 0 06-26 00:00: 00 No 2.5mg [facility] Kenalog (Triamcinol one) Kenalog (Triamcinol one) 06-26 00:00: 00 No 40mg [facility] Bupivicaine [place] Bupivicaine [place] 06-26 00:00: 00 No 2.5mg [facility] Kenalog (Triamcinol one) Kenalog (Triamcinol one) 06-26 00:00: 00 No 40mg [facility] Bupivicaine [place] Bupivicaine [place] 0 06-26 00:00: 00 No 2.5mg [facility] Kenalog (Triamcinol one) Kenalog (Triamcinol one) 06-26 00:00: 00 No 40mg [facility] Bupivicaine [place] Bupivicaine [place] 06-26 00:00: 00 No 2.5mg [facility] Kenalog (Triamcinol one) Kenalog (Triamcinol one) 0 06-26 00:00: 00 No 40mg [facility] Bupivicaine [place] Bupivicaine [place] 06-26 00:00: 00 No 2.5mg [facility] Kenalog (Triamcinol one) Kenalog (Triamcinol one) 06-26 00:00: 00 No 40mg [facility] Bupivicaine [place] Bupivicaine [place] 0 06-26 00:00: 00 No 2.5mg [facility] Kenalog (Triamcinol one) Kenalog (Triamcinol one) 06-26 00:00: 00 No 40mg [facility] Bupivicaine [place] Bupivicaine [place] 0 06-26 00:00: 00 No 2.5mg [facility] Kenalog (Triamcinol one) Kenalog (Triamcinol one) 06-26 00:00: 00 No 40mg [facility] Bupivicaine [place] Bupivicaine [place] 0 06-26 00:00: 00 No 2.5mg [facility] Kenalog (Triamcinol one) Kenalog (Triamcinol one) 0 06-26 00:00: 00 No 40mg [facility] Bupivicaine [place] Bupivicaine [place] 0 06-26 00:00: 00 No 2.5mg [facility] Kenalog (Triamcinol one) Kenalog (Triamcinol one) 0 06-26 00:00: 00 No 40mg [facility] Bupivicaine [place] Bupivicaine [place] 0 06-26 00:00: 00 No 2.5mg [facility] Kenalog (Triamcinol one) Kenalog (Triamcinol one) 0 06-26 00:00: 00 No 40mg [facility] Bupivicaine [place] Bupivicaine [place] 0 06-26 00:00: 00 No 2.5mg [facility] Kenalog (Triamcinol one) Kenalog (Triamcinol one) 0 06-26 00:00: 00 No 40mg [facility] Bupivicaine [place] Bupivicaine [place] 0 06-26 00:00: 00 No 2.5mg [facility] Kenalog (Triamcinol one) Kenalog (Triamcinol one) 0 06-26 00:00: 00 No 40mg [facility] Bupivicaine [place] Bupivicaine [place] 0 06-26 00:00: 00 No 2.5mg [facility] Kenalog (Triamcinol one) Kenalog (Triamcinol one) 0 06-26 00:00: 00 No 40mg [facility] Bupivicaine [place] Bupivicaine [place] 2020-0 06-26 00:00: 00 No 2.5mg [facility] Kenalog (Triamcinol one) Kenalog (Triamcinol one) 0 06-26 00:00: 00 No 40mg [facility] Bupivicaine [place] Bupivicaine [place] 2020-0 06-26 00:00: 00 No 2.5mg [facility] Kenalog (Triamcinol one) Kenalog (Triamcinol one) 0 06-26 00:00: 00 No 40mg [facility] Bupivicaine [place] Bupivicaine [place] 0 06-26 00:00: 00 No 2.5mg [facility] Kenalog (Triamcinol one) Kenalog (Triamcinol one) 0 06-26 00:00: 00 No 40mg [facility] Bupivicaine [place] Bupivicaine [place] 0 06-26 00:00: 00 No 2.5mg [facility] Kenalog (Triamcinol one) Kenalog (Triamcinol one) 0 06-26 00:00: 00 No 40mg [facility] Bupivicaine [place] Bupivicaine [place] 0 06-26 00:00: 00 No 2.5mg [facility] Kenalog (Triamcinol one) Kenalog (Triamcinol one) 0 06-26 00:00: 00 No 40mg [facility] Bupivicaine [place] Bupivicaine [place] 2020-0 06-26 00:00: 00 No 2.5mg [facility] Bupivicaine [place] Bupivicaine [place] 2020-0 06-26 00:00: 00 No 2.5mg [facility] Kenalog (Triamcinol one) Kenalog (Triamcinol one) 0 06-26 00:00: 00 No 40mg [facility] Bupivicaine [place] Bupivicaine [place] 06-26 00:00: 00 No 2.5mg [facility] [place] (Triamcinol one) Kenalog (Triamcinol one) 06-26 00:00: 00 No 40mg [facility] Bupivicaine [place] Bupivicaine [place] 0 06-26 00:00: 00 No 2.5mg [facility] [place] (Triamcinol one) Kenalog (Triamcinol one) 06-26 00:00: 00 No 40mg [facility] Bupivicaine [place] Bupivicaine [place] 0 06-26 00:00: 00 No 2.5mg [facility] Kenalog (Triamcinol one) Kenalog (Triamcinol one) 0 06-26 00:00: 00 No 40mg [facility] Bupivicaine [place] Bupivicaine [place] 06-26 00:00: 00 No 2.5mg [facility] Kenalog (Triamcinol one) Kenalog (Triamcinol one) 0 06-26 00:00: 00 No 40mg [facility] Bupivicaine [place] Bupivicaine [place] 0 06-26 00:00: 00 No 2.5mg [facility] Kenalog (Triamcinol one) Kenalog (Triamcinol one) 06-26 00:00: 00 No 40mg [facility] Bupivicaine [place] Bupivicaine [place] 2020-0 06-26 00:00: 00 No 2.5mg [facility] Kenalog (Triamcinol one) Kenalog (Triamcinol one) 0 06-26 00:00: 00 No 40mg [facility] Bupivicaine [place] Bupivicaine [place] 2020-0 06-26 00:00: 00 No 2.5mg [facility] Kenalog (Triamcinol one) Kenalog (Triamcinol one) 06-26 00:00: 00 No 40mg [facility] Bupivicaine [place] Bupivicaine [place] 06-26 00:00: 00 No 2.5mg [facility] Kenalog (Triamcinol one) Kenalog (Triamcinol one) 06-26 00:00: 00 No 40mg [facility] Kenalog (Triamcinol one) Kenalog (Triamcinol one) 06-26 00:00: 00 No 40mg [facility] Bupivicaine [place] Bupivicaine [place] 06-26 00:00: 00 No 2.5mg [facility] Kenalog (Triamcinol one) Kenalog (Triamcinol one) 06-26 00:00: 00 No 40mg [facility] Bupivicaine [place] Bupivicaine [place] 06-26 00:00: 00 No 2.5mg [facility] Kenalog (Triamcinol one) Kenalog (Triamcinol one) 06-26 00:00: 00 No 40mg [facility] Bupivicaine [place] Bupivicaine [place] 06-26 00:00: 00 No 2.5mg [facility] traMADol HCl 50 MG traMADol HCl 50 MG 06-26 00:00: 00 07-03 00:00 :00 No 1{table t_as_ne eded} traMADol HCl 50 MG Bupivicaine [place] Bupivicaine [place] 0 05-22 00:00: 00 No 2.5mg [facility] Kenalog (Triamcinol one) Kenalog (Triamcinol one) 0 05-22 00:00: 00 No 40mg [facility] Bupivicaine [place] Bupivicaine [place] 0 05-22 00:00: 00 No 2.5mg [facility] Kenalog (Triamcinol one) Kenalog (Triamcinol one) 0 05-22 00:00: 00 No 40mg [facility] Bupivicaine [place] Bupivicaine [place] 0 05-22 00:00: 00 No 2.5mg [facility] Kenalog (Triamcinol one) Kenalog (Triamcinol one) 05-22 00:00: 00 No 40mg [facility] Bupivicaine [place] Bupivicaine [place] 0 05-22 00:00: 00 No 2.5mg [facility] Kenalog (Triamcinol one) Kenalog (Triamcinol one) 0 05-22 00:00: 00 No 40mg [facility] Bupivicaine [place] Bupivicaine [place] 0 05-22 00:00: 00 No 2.5mg [facility] Kenalog (Triamcinol one) Kenalog (Triamcinol one) 0 05-22 00:00: 00 No 40mg [facility] Bupivicaine [place] Bupivicaine [place] 0 05-22 00:00: 00 No 2.5mg [facility] Kenalog (Triamcinol one) Kenalog (Triamcinol one) 0 05-22 00:00: 00 No 40mg [facility] Bupivicaine [place] Bupivicaine [place] 0 05-22 00:00: 00 No 2.5mg [facility] Kenalog (Triamcinol one) Kenalog (Triamcinol one) 0 05-22 00:00: 00 No 40mg [facility] Bupivicaine [place] Bupivicaine [place] 2020-0 05-22 00:00: 00 No 2.5mg [facility] Kenalog (Triamcinol one) Kenalog (Triamcinol one) 0 05-22 00:00: 00 No 40mg [facility] Bupivicaine [place] Bupivicaine [place] 0 05-22 00:00: 00 No 2.5mg [facility] Kenalog (Triamcinol one) Kenalog (Triamcinol one) 0 05-22 00:00: 00 No 40mg [facility] Bupivicaine [place] Bupivicaine [place] 0 05-22 00:00: 00 No 2.5mg [facility] Kenalog (Triamcinol one) Kenalog (Triamcinol one) 0 05-22 00:00: 00 No 40mg [facility] Bupivicaine [place] Bupivicaine [place] 0 05-22 00:00: 00 No 2.5mg [facility] Kenalog (Triamcinol one) Kenalog (Triamcinol one) 0 05-22 00:00: 00 No 40mg [facility] Bupivicaine [place] Bupivicaine [place] 0 05-22 00:00: 00 No 2.5mg [facility] Kenalog (Triamcinol one) Kenalog (Triamcinol one) 0 05-22 00:00: 00 No 40mg [facility] Bupivicaine [place] Bupivicaine [place] 2020-0 05-22 00:00: 00 No 2.5mg [facility] Kenalog (Triamcinol one) Kenalog (Triamcinol one) 0 05-22 00:00: 00 No 40mg [facility] Bupivicaine [place] Bupivicaine [place] 2020-0 05-22 00:00: 00 No 2.5mg [facility] Kenalog (Triamcinol one) Kenalog (Triamcinol one) 2020-0 05-22 00:00: 00 No 40mg [facility] Bupivicaine [place] Bupivicaine [place] 0 05-22 00:00: 00 No 2.5mg [facility] [place] (Triamcinol one) Kenalog (Triamcinol one) 0 05-22 00:00: 00 No 40mg [facility] Bupivicaine [place] Bupivicaine [place] 2020-0 05-22 00:00: 00 No 2.5mg [facility] [place] (Triamcinol one) Kenalog (Triamcinol one) 0 05-22 00:00: 00 No 40mg [facility] Bupivicaine [place] Bupivicaine [place] 0 05-22 00:00: 00 No 2.5mg [facility] Kenalog (Triamcinol one) Kenalog (Triamcinol one) 0 05-22 00:00: 00 No 40mg [facility] Bupivicaine [place] Bupivicaine [place] 0 05-22 00:00: 00 No 2.5mg [facility] Kenalog (Triamcinol one) Kenalog (Triamcinol one) 0 05-22 00:00: 00 No 40mg [facility] Bupivicaine [place] Bupivicaine [place] 2020-0 05-22 00:00: 00 No 2.5mg [facility] Kenalog (Triamcinol one) Kenalog (Triamcinol one) 0 05-22 00:00: 00 No 40mg [facility] Bupivicaine [place] Bupivicaine [place] 2020-0 05-22 00:00: 00 No 2.5mg [facility] [place] (Triamcinol one) Kenalog (Triamcinol one) 0 05-22 00:00: 00 No 40mg [facility] Bupivicaine [place] Bupivicaine [place] 2020-0 05-22 00:00: 00 No 2.5mg [facility] Kenalog (Triamcinol one) Kenalog (Triamcinol one) 0 05-22 00:00: 00 No 40mg [facility] Bupivicaine [place] Bupivicaine [place] 05-22 00:00: 00 No 2.5mg [facility] Kenalog (Triamcinol one) Kenalog (Triamcinol one) 0 05-22 00:00: 00 No 40mg [facility] Bupivicaine [place] Bupivicaine [place] 0 05-22 00:00: 00 No 2.5mg [facility] Kenalog (Triamcinol one) Kenalog (Triamcinol one) 0 05-22 00:00: 00 No 40mg [facility] Bupivicaine [place] Bupivicaine [place] 0 05-22 00:00: 00 No 2.5mg [facility] Kenalog (Triamcinol one) Kenalog (Triamcinol one) 0 05-22 00:00: 00 No 40mg [facility] Bupivicaine [place] Bupivicaine [place] 0 05-22 00:00: 00 No 2.5mg [facility] Kenalog (Triamcinol one) Kenalog (Triamcinol one) 0 05-22 00:00: 00 No 40mg [facility] Bupivicaine [place] Bupivicaine [place] 05-22 00:00: 00 No 2.5mg [facility] Kenalog (Triamcinol one) Kenalog (Triamcinol one) 0 05-22 00:00: 00 No 40mg [facility] Bupivicaine [place] Bupivicaine [place] 0 05-22 00:00: 00 No 2.5mg [facility] Kenalog (Triamcinol one) Kenalog (Triamcinol one) 0 05-22 00:00: 00 No 40mg [facility] Bupivicaine [place] Bupivicaine [place] 0 05-22 00:00: 00 No 2.5mg [facility] Kenalog (Triamcinol one) Kenalog (Triamcinol one) 0 05-22 00:00: 00 No 40mg [facility] Bupivicaine [place] Bupivicaine [place] 0 05-22 00:00: 00 No 2.5mg [facility] Kenalog (Triamcinol one) Kenalog (Triamcinol one) 0 05-22 00:00: 00 No 40mg [facility] Bupivicaine [place] Bupivicaine [place] 0 05-22 00:00: 00 No 2.5mg [facility] Kenalog (Triamcinol one) Kenalog (Triamcinol one) 0 05-22 00:00: 00 No 40mg [facility] Bupivicaine [place] Bupivicaine [place] 0 05-22 00:00: 00 No 2.5mg [facility] Kenalog (Triamcinol one) Kenalog (Triamcinol one) 0 05-22 00:00: 00 No 40mg [facility] Bupivicaine [place] Bupivicaine [place] 0 05-22 00:00: 00 No 2.5mg [facility] Kenalog (Triamcinol one) Kenalog (Triamcinol one) 0 05-22 00:00: 00 No 40mg [facility] Bupivicaine [place] Bupivicaine [place] 2020-0 05-22 00:00: 00 No 2.5mg [facility] Kenalog (Triamcinol one) Kenalog (Triamcinol one) 0 05-22 00:00: 00 No [facility]mg [facility] Bupivicaine [place] Bupivicaine [place] 2020-0 05-22 00:00: 00 No 2.5mg [facility] Kenalog (Triamcinol one) Kenalog (Triamcinol one) 0 05-22 00:00: 00 No [facility]mg [facility] Bupivicaine [place] Bupivicaine [place] 0 05-22 00:00: 00 No 2.5mg [facility] Kenalog (Triamcinol one) Kenalog (Triamcinol one) 0 05-22 00:00: 00 No 40mg [facility] Bupivicaine [place] Bupivicaine [place] 0 05-22 00:00: 00 No 2.5mg [facility] Kenalog (Triamcinol one) Kenalog (Triamcinol one) 0 05-22 00:00: 00 No 40mg [facility] Bupivicaine [place] Bupivicaine [place] 0 05-22 00:00: 00 No 2.5mg [facility] Kenalog (Triamcinol one) Kenalog (Triamcinol one) 0 05-22 00:00: 00 No 40mg [facility] Bupivicaine [place] Bupivicaine [place] 0 05-22 00:00: 00 No 2.5mg [facility] Kenalog (Triamcinol one) Kenalog (Triamcinol one) 0 05-22 00:00: 00 No 40mg [facility] Bupivicaine [place] Bupivicaine [place] 2020-0 05-22 00:00: 00 No 2.5mg [facility] Kenalog (Triamcinol one) Kenalog (Triamcinol one) 0 05-22 00:00: 00 No 40mg [facility] Bupivicaine [place] Bupivicaine [place] 2020-0 05-22 00:00: 00 No 2.5mg [facility] Kenalog (Triamcinol one) Kenalog (Triamcinol one) 0 05-22 00:00: 00 No 40mg [facility] Bupivicaine [place] Bupivicaine [place] 2020-0 05-22 00:00: 00 No 2.5mg [facility] Kenalog (Triamcinol one) Kenalog (Triamcinol one) 0 05-22 00:00: 00 No 40mg [facility] Bupivicaine [place] Bupivicaine [place] 0 05-22 00:00: 00 No 2.5mg [facility] Kenalog (Triamcinol one) Kenalog (Triamcinol one) 0 05-22 00:00: 00 No 40mg [facility] Bupivicaine [place] Bupivicaine [place] 0 05-22 00:00: 00 No 2.5mg [facility] Kenalog (Triamcinol one) Kenalog (Triamcinol one) 0 05-22 00:00: 00 No 40mg [facility] Bupivicaine [place] Bupivicaine [place] 2020-0 05-22 00:00: 00 No 2.5mg [facility] Kenalog (Triamcinol one) Kenalog (Triamcinol one) 0 05-22 00:00: 00 No 40mg [facility] Bupivicaine [place] Bupivicaine [place] 2020-0 05-22 00:00: 00 No 2.5mg [facility] Kenalog (Triamcinol one) Kenalog (Triamcinol one) 0 05-22 00:00: 00 No 40mg [facility] Bupivicaine [place] Bupivicaine [place] 2020-0 05-22 00:00: 00 No 2.5mg [facility] Kenalog (Triamcinol one) Kenalog (Triamcinol one) 2020-0 05-22 00:00: 00 No 40mg [facility] Bupivicaine [place] Bupivicaine [place] 202005-22 00:00: 00 No 2.5mg [facility] Kenalog (Triamcinol one) Kenalog (Triamcinol one) 05-22 00:00: 00 No [facility] Bupivicaine [place] Bupivicaine [place] 05-22 00:00: 00 No 2.5mg [facility] Kenalog (Triamcinol one) Kenalog (Triamcinol one) 05-22 00:00: 00 No [facility] Bupivicaine [place] Bupivicaine [place] 05-22 00:00: 00 No 2.5mg [facility] Kenalog (Triamcinol one) Kenalog (Triamcinol one) 05-22 00:00: 00 No 40mg [facility] atorvastati n 80 mg tablet 01-27 00:00: 00 Yes 80mg Take 1 tablet by mouth daily. [facility] pantoprazol e 40 mg EC tablet 01-27 00:00: 00 Yes 40mg Take 1 tablet by mouth daily. [facility] isosorbide mononitrate 30 mg 24 hr tablet 01-27 00:00: 00 Yes 30mg Take 1 tablet by mouth daily. [facility] aspirin 81 mg chewable tablet 01-26 00:00: 00 Yes 81mg Take 1 tablet by mouth daily. [facility] zolpidem 5 mg tablet 01-26 00:00: 00 05-24 00:00 :00 No 5mg Take 1 tablet by mouth at bedtime as needed for Insomnia. [facility] sulindac (CLINORIL) 200 mg tablet 05-13 00:00: 00 05-24 00:00 :00 No 200mg Take 1 tablet by mouth 2 (two) times daily. [facility] Lisinopril 2.5 MG Lisinopril 2.5 MG No Lisinopril 2.5 MG Iron Iron No Iron Vitamin D3 [...] t} QD Atorvastat in Calcium 40 MG Levocetiriz ine Dihydrochlo ride 5 MG [...] D3 125 MCG (5000 UT) traMADol HCl ER 200 MG traMADol HCl [...] No 1{puff} QD Breo Ellipta 50-25 MCG/INH Atorvastati n Calcium 40 MG Atorvastati n [...] No 1{puff} QD Breo Ellipta 50-25 MCG/INH Atorvastati n Calcium 40 MG Atorvastati n [...] No 1{puff} QD Breo Ellipta 50-25 MCG/INH Atorvastati n Calcium 40 MG Atorvastati n [...] Calcium 40 MG EpiPen EpiPen No EpiPen Lisinopril 2.5 MG Lisinopril 2.5 MG No 1{table t} QD Lisinopril 2.5 MG Vitamin D3 125 MCG (5000 UT) Vitamin D3 125 MCG (5000 UT) No 1{table t} QD Vitamin D3 125 MCG (5000 UT) Gabapentin 300 MG Gabapentin 300 MG No 1{capsu le} QD Gabapentin 300 MG Vitamin D3 125 MCG (5000 UT) Vitamin D3 125 MCG (5000 UT) No 1{table t} QD Vitamin D3 125 MCG (5000 UT) Clopidogrel Bisulfate 75 MG Clopidogrel Bisulfate 75 MG No 1{table t} QD Clopidogre l Bisulfate 75 MG Aspirin 81 MG Aspirin 81 MG No 1{table t} QD Aspirin 81 MG Folic Acid 1 MG Folic Acid [...] Lisinopril 2.5 MG Iron Iron No Iron Aspirin 81 MG Aspirin 81 MG No 1{table t} QD Aspirin 81 MG Metoprolol Succinate ER 50 MG Metoprolol Succinate ER 50 MG No 1{table t} BID Metoprolol Succinate ER 50 MG Atorvastati n Calcium 40 MG Atorvastati n Calcium 40 MG No Atorvastat in Calcium 40 MG Folic Acid 1 MG Folic Acid 1 MG No 1{table t} QD Folic Acid 1 MG traMADol HCl 50 MG traMADol HCl 50 MG No 2{table ts} traMADol HCl 50 MG traMADol HCl 50 MG traMADol [...] MG No Atorvastat in Calcium 40 MG Clopidogrel Bisulfate 75 MG Clopidogrel Bisulfate 75 MG No 1{table t} QD Clopidogre l Bisulfate 75 MG Vitamin D3 125 MCG (5000 UT) Vitamin D3 125 MCG (5000 UT) No 1{table t} QD Vitamin D3 125 MCG (5000 UT) Aspirin 81 MG Aspirin 81 MG No 1{table t} QD Aspirin 81 MG Folic Acid 1 MG Folic Acid 1 MG No 1{table t} QD Folic Acid 1 MG Gabapentin 300 MG Gabapentin 300 MG No 1{capsu le} BID Gabapentin 300 MG Lisinopril 2.5 MG Lisinopril 2.5 MG No Lisinopril 2.5 MG Vitamin D3 125 MCG (5000 UT) Vitamin D3 125 MCG (5000 UT) No 1{table t} QD Vitamin D3 125 MCG (5000 UT) EpiPen EpiPen No EpiPen Clopidogrel Bisulfate 75 [...] No 2{table ts} traMADol HCl 50 MG Folic Acid 1 MG Folic Acid 1 MG No 1{table t} QD Folic Acid 1 MG Atorvastati n Calcium 40 MG Atorvastati n Calcium 40 MG No Atorvastat in Calcium 40 MG Magnesium Magnesium No Magnesium Folic Acid 1 MG Folic Acid 1 MG No 1{table t} QD Folic Acid 1 MG Clopidogrel Bisulfate 75 MG Clopidogrel Bisulfate [...] No 2{table ts} traMADol HCl 50 MG Gabapentin 300 MG Gabapentin 300 MG No 1{capsu le} BID Gabapentin 300 MG Aspirin 81 MG Aspirin 81 MG No 1{table t} QD Aspirin 81 MG Vitamin D3 125 MCG (5000 UT) Vitamin D3 125 MCG (5000 UT) No 1{table t} QD Vitamin D3 125 MCG (5000 UT) Atorvastati n Calcium 40 MG Atorvastati n Calcium 40 MG No Atorvastat in Calcium 40 MG Magnesium Magnesium No Magnesium Folic Acid 1 MG Folic Acid 1 MG No 1{table t} QD Folic Acid 1 MG Clopidogrel Bisulfate 75 MG Clopidogrel Bisulfate [...] No 2{table ts} traMADol HCl 50 MG Gabapentin 300 MG Gabapentin 300 MG No 1{capsu le} BID Gabapentin 300 MG Aspirin 81 MG Aspirin 81 MG No 1{table t} QD Aspirin 81 MG Vitamin D3 125 MCG (5000 UT) Vitamin D3 125 MCG (5000 UT) No 1{table t} QD Vitamin D3 125 MCG (5000 UT) Atorvastati n Calcium 40 MG Atorvastati n Calcium 40 MG No Atorvastat in Calcium 40 MG Magnesium Magnesium No Magnesium Folic Acid 1 MG Folic Acid 1 MG No 1{table t} QD Folic Acid 1 MG Clopidogrel Bisulfate 75 MG Clopidogrel Bisulfate [...] No 2{table ts} traMADol HCl 50 MG Gabapentin 300 MG Gabapentin 300 MG No 1{capsu le} BID Gabapentin 300 MG Aspirin 81 MG Aspirin 81 MG No 1{table t} QD Aspirin 81 MG Vitamin D3 125 MCG (5000 UT) [...] 50 MG Magnesium Magnesium No Magnesium Vitamin D3 125 MCG (5000 UT) Vitamin D3 125 MCG (5000 UT) No 1{table t} QD Vitamin D3 125 MCG (5000 UT) Atorvastati n Calcium 40 MG Atorvastati n Calcium 40 MG No Atorvastat in Calcium 40 MG traMADol HCl 50 MG traMADol HCl 50 MG No 2{table ts} traMADol HCl 50 MG Montelukast Sodium 10 MG Montelukast Sodium 10 MG No Montelukas t Sodium 10 MG Atorvastati n Calcium 40 MG Atorvastati n Calcium 40 MG No Atorvastat in Calcium 40 MG Metoprolol Succinate ER 50 MG Metoprolol Succinate ER 50 MG No 1{table t} QD Metoprolol Succinate ER 50 MG Vitamin C Vitamin C No Vitamin C Gabapentin 300 MG Gabapentin 300 MG No 1{capsu le} BID Gabapentin 300 MG Levocetiriz ine Dihydrochlo ride 5 MG Levocetiriz ine Dihydrochlo ride 5 MG No 1{table t_in_th e_eveni ng} QD Levocetiri zine Dihydrochl oride 5 MG Clopidogrel Bisulfate 75 MG Clopidogrel Bisulfate 75 MG No 1{table t} QD Clopidogre l Bisulfate 75 MG Modafinil 200 MG Modafinil 200 MG No [...] Kenalog (Triamcinolone) Kenalog (Triamcinolone) 2021-07-11 09:32:00 Completed [facility] Bupivicaine [place] Bupivicaine [place] 2021-06-26 09:38:00 Completed [facility] Kenalog (Triamcinolone) Kenalog (Triamcinolone) 2021-06-26 09:38:00 Completed [facility] Bupivicaine [place] Bupivicaine [place] 2021-06-26 09:38:00 Completed [facility] Kenalog (Triamcinolone) Kenalog (Triamcinolone) 2021-06-26 09:38:00 Completed [facility] Bupivicaine [place] Bupivicaine [place] 2021-06-26 09:38:00 Completed [facility] Kenalog (Triamcinolone) Kenalog (Triamcinolone) 2021-06-26 09:38:00 Completed [facility] Bupivicaine [place] Bupivicaine [place] 2021-06-26 09:38:00 Completed [facility] Kenalog (Triamcinolone) Kenalog (Triamcinolone) 2021-06-26 09:38:00 Completed [facility] Bupivicaine [place] Bupivicaine [place] 2021-05-22 08:55:00 Completed [facility] Kenalog (Triamcinolone) Kenalog (Triamcinolone) 2021-05-22 08:55:00 Completed [facility] Bupivicaine [place] Bupivicaine [place] 2021-05-22 08:55:00 Completed [facility] Kenalog (Triamcinolone) Kenalog (Triamcinolone) 2021-05-22 08:55:00 Completed [facility] Bupivicaine [place] Bupivicaine [place] 2021-05-22 08:55:00 Completed [facility] Kenalog (Triamcinolone) Kenalog (Triamcinolone) 2021-05-22 08:55:00 Completed [facility] Bupivicaine [place] Bupivicaine [place] 2021-05-22 08:55:00 Completed [facility] Kenalog (Triamcinolone) Kenalog (Triamcinolone) 2021-05-22 08:55:00 Completed [facility] Pneumococcal Polysaccharide, PPSV23 (PNEUMOVAX) 2018-01-26 00:00:00 Completed [facility] Pneumococcal Polysaccharide, PPSV23 (PNEUMOVAX) 2018-01-26 00:00:00 Completed [facility] Pneumococcal Polysaccharide, PPSV23 (PNEUMOVAX) 2018-01-26 00:00:00 Completed [facility] Pneumococcal Polysaccharide, PPSV23 (PNEUMOVAX) 2018-01-26 00:00:00 Completed [facility] Pneumococcal Polysaccharide, PPSV23 (PNEUMOVAX) 2018-01-26 00:00:00 Completed [facility] Pneumococcal Polysaccharide, PPSV23 (PNEUMOVAX) 2018-01-26 00:00:00 Completed [facility] Pneumococcal Polysaccharide, PPSV23 (PNEUMOVAX) 2018-01-26 00:00:00 Completed [facility] Adacel (Tdap) Adacel (Tdap) 2015-01-11 14:09:00 Completed [facility] Adacel (Tdap) Adacel (Tdap) 2015-01-11 14:09:00 Completed [facility] Adacel (Tdap) Adacel (Tdap) 2015-01-11 14:09:00 Completed [facility] Adacel (Tdap) Adacel (Tdap) 2015-01-11 14:09:00 Completed [facility] Adacel (Tdap) Adacel (Tdap) 2015-01-11 14:09:00 Completed [facility] Adacel (Tdap) Adacel (Tdap) 2015-01-11 14:09:00 Completed [facility] Adacel (Tdap) Adacel (Tdap) 2015-01-11 14:09:00 Completed [facility] Adacel (Tdap) Adacel (Tdap) 2015-01-11 14:09:00 Completed [facility] Adacel (Tdap) Adacel (Tdap) 2015-01-11 14:09:00 Completed [facility] Adacel (Tdap) Adacel (Tdap) 2015-01-11 14:09:00 Completed [facility] Adacel (Tdap) Adacel (Tdap) 2015-01-11 14:09:00 Completed [facility] Adacel (Tdap) Adacel (Tdap) 2015-01-11 14:09:00 Completed [facility] Adacel (Tdap) Adacel (Tdap) 2015-01-11 14:09:00 Completed [facility] Adacel (Tdap) Adacel (Tdap) 2015-01-11 14:09:00 Completed [facility] Adacel (Tdap) Adacel (Tdap) 2015-01-11 14:09:00 Completed [facility] Adacel (Tdap) Adacel (Tdap) 2015-01-11 14:09:00 Completed [facility] Adacel (Tdap) Adacel (Tdap) 2015-01-11 14:09:00 Completed [facility] Adacel (Tdap) Adacel (Tdap) 2015-01-11 14:09:00 Completed [facility] Adacel (Tdap) Adacel (Tdap) 2015-01-11 14:09:00 Completed [facility] Adacel (Tdap) Adacel (Tdap) 2015-01-11 14:09:00 Completed [facility] Adacel (Tdap) Adacel (Tdap) 2015-01-11 14:09:00 Completed [facility] Adacel (Tdap) Adacel (Tdap) 2015-01-11 14:09:00 Completed [facility] Adacel (Tdap) Adacel (Tdap) 2015-01-11 14:09:00 Completed [facility] Adacel (Tdap) Adacel (Tdap) 2015-01-11 14:09:00 Completed [facility] Adacel (Tdap) Adacel (Tdap) 2015-01-11 14:09:00 Completed [facility] Adacel (Tdap) Adacel (Tdap) Unknown [facility] Adacel (Tdap) Adacel (Tdap) Unknown Com[facility] Adacel (Tdap) Adacel (Tdap) Unknown Completed [facility] Adacel (Tdap) Adacel (Tdap) Unknown Completed [facility] Adacel (Tdap) Adacel (Tdap) Unknown Completed [facility] Adacel (Tdap) Adacel (Tdap) Unknown Completed [facility] Adacel (Tdap) Adacel (Tdap) Unknown Completed [facility] Adacel (Tdap) Adacel (Tdap) Unknown Completed [facility] Adacel (Tdap) Adacel (Tdap) Unknown Completed [facility] Adacel (Tdap) Adacel (Tdap) Unknown Completed [facility] Adacel (Tdap) Adacel (Tdap) Unknown Completed [facility] Adacel (Tdap) Adacel (Tdap) Unknown Completed [facility] Adacel (Tdap) Adacel (Tdap) Unknown Completed [facility] Adacel (Tdap) Adacel (Tdap) Unknown Completed [facility] Adacel (Tdap) Adacel (Tdap) Unknown Completed [facility] Adacel (Tdap) Adacel (Tdap) Unknown Completed [facility] Adacel (Tdap) Adacel (Tdap) Unknown Completed [facility] Adacel (Tdap) Adacel (Tdap) Unknown Completed [facility] Adacel (Tdap) Adacel (Tdap) Unknown Completed [facility] Adacel (Tdap) Adacel (Tdap) Unknown Completed [facility] Adacel (Tdap) Adacel (Tdap) Unknown Completed [facility] Adacel (Tdap) Adacel (Tdap) Unknown Completed [facility] Adacel (Tdap) Adacel (Tdap) Unknown Completed [facility] Adacel (Tdap) Adacel (Tdap) Unknown Completed [facility] Adacel (Tdap) Adacel (Tdap) Unknown Completed [facility] Adacel (Tdap) Adacel (Tdap) Unknown Completed [facility] Adacel (Tdap) Adacel (Tdap) Unknown Completed [facility] Adacel (Tdap) Adacel (Tdap) Unknown Completed [facility] Adacel (Tdap) Adacel (Tdap) Unknown Completed [facility] Prevnar 20 (PCV20) Prevnar 20 (PCV20) Unknown Completed [facility] Adacel (Tdap) Adacel (Tdap) Unknown Completed [facility] Prevnar 20 (PCV20) Prevnar 20 (PCV20) Unknown Completed [facility] Adacel (Tdap) Adacel (Tdap) Unknown Completed [facility] Prevnar 20 (PCV20) Prevnar 20 (PCV20) Unknown Completed [facility] Adacel (Tdap) Adacel (Tdap) Unknown Completed [facility] Prevnar 20 (PCV20) Prevnar 20 (PCV20) Unknown Completed [facility] Adacel (Tdap) Adacel (Tdap) Unknown Completed [facility] Prevnar 20 (PCV20) Prevnar 20 (PCV20) Unknown Completed [facility] Adacel (Tdap) Adacel (Tdap) Unknown Completed Co [facility] Prevnar 20 (PCV20) Prevnar 20 (PCV20) Unknown Completed [facility] Adacel (Tdap) Adacel (Tdap) Unknown Completed [facility] Prevnar 20 (PCV20) Prevnar 20 (PCV20) Unknown Completed [facility] Adacel (Tdap) Adacel (Tdap) Unknown Completed [facility] Prevnar 20 (PCV20) Prevnar 20 (PCV20) Unknown Completed [facility] Adacel (Tdap) Adacel (Tdap) Unknown Completed [facility] Adacel (Tdap) Adacel (Tdap) Unknown Completed [facility] Adacel (Tdap) Adacel (Tdap) Unknown Completed [facility] Adacel (Tdap) Adacel (Tdap) Unknown Completed Co [facility] Vital Signs Vital Name Observation Time Observation Value Comments S ource height 2023-12-10 15:00:00 66 [in_i] Commo n [facility] weight 2023-12-10 15:00:00 193 [lb_av] Comm on [facility] temperature 2023-12-10 15:00:00 99.2 [degF] Com mon [facility] bmi 2023-12-10 15:00:00 31.15 kg/m2 Comm on [facility] oximetry 2023-12-10 15:00:00 97 % Commo n [facility] respiratory rate 2023-12-10 15:00:00 16 /min [facility] blood pressure systolic 2023-12-10 15:00:00 142 mm[Hg] [facility] blood pressure diastolic 2023-12-10 15:00:00 98 mm[Hg] [facility] height 2023-12-10 15:00:00 66 [in_i] Commo n [facility] weight 2023-12-10 15:00:00 193 [lb_av] Comm on [facility] temperature 2023-12-10 15:00:00 99.2 [degF] Com mon [facility] bmi 2023-12-10 15:00:00 31.15 kg/m2 Comm on [facility] oximetry 2023-12-10 15:00:00 97 % Commo n [facility] respiratory rate 2023-12-10 15:00:00 16 /min [facility] blood pressure systolic 2023-12-10 15:00:00 142 mm[Hg] [facility] blood pressure diastolic 2023-12-10 15:00:00 98 mm[Hg] [facility] height 2023-11-03 16:20:00 66 [in_i] Commo n [facility] weight 2023-11-03 16:20:00 198.0 [lb_av] Co [facility] temperature 2023-11-03 16:20:00 97.8 [degF] Com mon [facility] bmi 2023-11-03 16:20:00 31.95 kg/m2 Comm on [facility] oximetry 2023-11-03 16:20:00 95 % Commo n [facility] blood pressure systolic 2023-11-03 16:20:00 150 mm[Hg] Common [facility] blood pressure diastolic 2023-11-03 16:20:00 76 mm[Hg] [facility] height 2023-10-17 15:40:00 66 [in_i] Commo n [facility] weight 2023-10-17 15:40:00 198.4 [lb_av] Co [facility] temperature 2023-10-17 15:40:00 98.3 [degF] Com [facility] bmi 2023-10-17 15:40:00 32.02 kg/m2 Comm on [facility] oximetry 2023-10-17 15:40:00 96 % Commo n [facility] respiratory rate 2023-10-17 15:40:00 18 /min [facility] blood pressure systolic 2023-10-17 15:40:00 148 mm[Hg] Common [facility] blood pressure diastolic 2023-10-17 15:40:00 90 mm[Hg] Common [facility] height 2023-09-16 09:00:00 66 [in_i] Commo n [facility] weight 2023-09-16 09:00:00 197 [lb_av] Comm on [facility] temperature 2023-09-16 09:00:00 98.1 [degF] Com [facility] bmi 2023-09-16 09:00:00 31.79 kg/m2 Comm on [facility] oximetry 2023-09-16 09:00:00 96 % Commo n [facility] respiratory rate 2023-09-16 09:00:00 17 /min [facility] blood pressure systolic 2023-09-16 09:00:00 160 mm[Hg] [facility] blood pressure diastolic 2023-09-16 09:00:00 90 mm[Hg] Common [facility] height 2023-07-08 15:20:00 66 [in_i] Commo n [facility] weight 2023-07-08 15:20:00 197.6 [lb_av] Co [facility] temperature 2023-07-08 15:20:00 97.2 [degF] Com mon [facility] bmi 2023-07-08 15:20:00 31.89 kg/m2 Comm on [facility] oximetry 2023-07-08 15:20:00 98 % Commo n [facility] respiratory rate 2023-07-08 15:20:00 16 /min [facility] blood pressure systolic 2023-07-08 15:20:00 138 mm[Hg] [facility] blood pressure diastolic 2023-07-08 15:20:00 76 mm[Hg] [facility] height 2023-05-15 08:00:00 66 [in_i] Commo n [facility] weight 2023-05-15 08:00:00 195 [lb_av] Comm on [facility] temperature 2023-05-15 08:00:00 97.3 [degF] Com [facility] bmi 2023-05-15 08:00:00 31.47 kg/m2 Comm on [facility] oximetry 2023-05-15 08:00:00 92 % Commo n [facility] respiratory rate 2023-05-15 08:00:00 16 /min [facility] blood pressure systolic 2023-05-15 08:00:00 132 mm[Hg] [facility] blood pressure diastolic 2023-05-15 08:00:00 70 mm[Hg] [facility] height 2023-02-12 16:00:00 66 [in_i] Commo n [facility] weight 2023-02-12 16:00:00 195.2 [lb_av] Co [facility] temperature 2023-02-12 16:00:00 98.0 [degF] Com [facility] bmi 2023-02-12 16:00:00 31.5 kg/m2 Commo n [facility] oximetry 2023-02-12 16:00:00 95 % Commo n [facility] respiratory rate 2023-02-12 16:00:00 17 /min [facility] blood pressure systolic 2023-02-12 16:00:00 136 mm[Hg] Common [facility] blood pressure diastolic 2023-02-12 16:00:00 79 mm[Hg] [facility] Systolic blood pressure 2023-01-28 18:22:00 157 mm[Hg] [facility] Diastolic blood pressure 2023-01-28 18:22:00 96 mm[Hg] [facility] Heart rate 2023-01-28 18:22:00 78 /min [facility] Body temperature 2023-01-28 18:22:00 37.17 Shameka [facility] Respiratory rate 2023-01-28 18:22:00 18 /min [facility] Body weight 2023-01-28 18:22:00 83.915 kg [facility] BMI 2023-01-28 18:22:00 29.86 kg/m2 [facility] Oxygen saturation in Arterial blood by Pulse oximetry 2023-01-28 18:22:00 95 /min [facility] height 2023-01-27 08:30:00 66 [in_i] Commo n [facility] weight 2023-01-27 08:30:00 200 [lb_av] Comm on [facility] temperature 2023-01-27 08:30:00 97.8 [degF] Com mon [facility] bmi 2023-01-27 08:30:00 32.28 kg/m2 Comm on [facility] blood pressure systolic 2023-01-27 08:30:00 132 mm[Hg] Common [facility] blood pressure diastolic 2023-01-27 08:30:00 80 mm[Hg] Common [facility] height 2022-12-11 10:30:00 66 [in_i] Commo n [facility] weight 2022-12-11 10:30:00 198.5 [lb_av] Co mmon [facility] temperature 2022-12-11 10:30:00 97.2 [degF] Com mon [facility] bmi 2022-12-11 10:30:00 32.04 kg/m2 Comm on [facility] blood pressure systolic 2022-12-11 10:30:00 138 mm[Hg] [facility] blood pressure diastolic 2022-12-11 10:30:00 84 mm[Hg] [facility] height 2022-11-14 14:50:00 66 [in_i] Commo n [facility] weight 2022-11-14 14:50:00 200 [lb_av] Comm on [facility] temperature 2022-11-14 14:50:00 98.1 [degF] Com [facility] bmi 2022-11-14 14:50:00 32.28 kg/m2 Comm on [facility] oximetry 2022-11-14 14:50:00 98 % Commo n [facility] respiratory rate 2022-11-14 14:50:00 16 /min Common [facility] blood pressure systolic 2022-11-14 14:50:00 138 mm[Hg] [facility] blood pressure diastolic 2022-11-14 14:50:00 78 mm[Hg] [facility] height 2022-11-14 15:00:00 66 [in_i] Commo n [facility] weight 2022-11-14 15:00:00 200 [lb_av] Comm on [facility] temperature 2022-11-14 15:00:00 98.1 [degF] Com [facility] bmi 2022-11-14 15:00:00 32.28 kg/m2 Comm on [facility] oximetry 2022-11-14 15:00:00 98 % Commo n [facility] respiratory rate 2022-11-14 15:00:00 16 /min Common [facility] blood pressure systolic 2022-11-14 15:00:00 138 mm[Hg] Common [facility] blood pressure diastolic 2022-11-14 15:00:00 78 mm[Hg] Common [facility] height 2022-11-14 09:30:00 66 [in_i] Commo n [facility] weight 2022-11-14 09:30:00 200 [lb_av] Comm on [facility] temperature 2022-11-14 09:30:00 97.9 [degF] Com mon [facility] bmi 2022-11-14 09:30:00 32.28 kg/m2 Comm on [facility] blood pressure systolic 2022-11-14 09:30:00 132 mm[Hg] [facility] blood pressure diastolic 2022-11-14 09:30:00 80 mm[Hg] [facility] Systolic blood pressure 2022-10-20 12:25:00 125 mm[Hg] [facility] Diastolic blood pressure 2022-10-20 12:25:00 76 mm[Hg] [facility] Heart rate 2022-10-20 12:25:00 52 /min [facility] Respiratory rate 2022-10-20 12:25:00 14 /min [facility] Oxygen saturation in Arterial blood by Pulse oximetry 2022-10-20 12:25:00 93 /min [facility] Body temperature 2022-10-20 10:46:00 37.39 Shameka [facility] Body height 2022-10-20 10:46:00 167.6 cm [facility] Body weight 2022-10-20 10:46:00 85.7 kg [facility] BMI 2022-10-20 10:46:00 30.49 kg/m2 [facility] Systolic blood pressure 2022-08-30 20:50:00 92 mm[Hg] [facility] Diastolic blood pressure 2022-08-30 20:50:00 64 mm[Hg] [facility] Heart rate 2022-08-30 20:50:00 53 /min [facility] Respiratory rate 2022-08-30 20:50:00 20 /min [facility] Oxygen saturation in Arterial blood by Pulse oximetry 2022-08-30 20:50:00 94 /min [facility] Body temperature 2022-08-30 13:47:00 35.67 Shameka [facility] Body height 2022-08-30 13:47:00 175.3 cm [facility] Body weight 2022-08-30 13:47:00 92.987 kg [facility] BMI 2022-08-30 13:47:00 30.27 kg/m2 [facility] height 2022-07-31 14:40:00 66 [in_i] Commo n [facility] weight 2022-07-31 14:40:00 201.0 [lb_av] Co mmon [facility] temperature 2022-07-31 14:40:00 98.2 [degF] Com mon [facility] bmi 2022-07-31 14:40:00 32.44 kg/m2 Comm on [facility] oximetry 2022-07-31 14:40:00 97 % Commo n [facility] respiratory rate 2022-07-31 14:40:00 17 /min Common [facility] blood pressure systolic 2022-07-31 14:40:00 135 mm[Hg] Common [facility] blood pressure diastolic 2022-07-31 14:40:00 72 mm[Hg] [facility] Systolic blood pressure 2022-05-24 20:23:00 112 mm[Hg] [facility] Diastolic blood pressure 2022-05-24 20:23:00 65 mm[Hg] [facility] Heart rate 2022-05-24 20:23:00 68 /min [facility] Body temperature 2022-05-24 20:23:00 35.83 Shameka [facility] Respiratory rate 2022-05-24 20:23:00 18 /min [facility] Oxygen saturation in Arterial blood by Pulse oximetry 2022-05-24 20:23:00 96 /min [facility] Body height 2022-05-23 19:38:00 175.3 cm [facility] Body weight 2022-05-23 19:38:00 92.987 kg [facility] BMI 2022-05-23 19:38:00 30.27 kg/m2 [facility] height 2022-04-18 10:00:00 66 [in_i] Commo n [facility] weight 2022-04-18 10:00:00 209.0 [lb_av] Co mmon [facility] temperature 2022-04-18 10:00:00 98.1 [degF] Com mon [facility] bmi 2022-04-18 10:00:00 33.73 kg/m2 Comm on [facility] oximetry 2022-04-18 10:00:00 95 % Commo n [facility] respiratory rate 2022-04-18 10:00:00 16 /min Common [facility] blood pressure systolic 2022-04-18 10:00:00 132 mm[Hg] Common [facility] blood pressure diastolic 2022-04-18 10:00:00 73 mm[Hg] Common [facility] height 2022-04-04 11:10:00 66 [in_i] Commo n [facility] weight 2022-04-04 11:10:00 197 [lb_av] Comm on [facility] temperature 2022-04-04 11:10:00 98 [degF] Comm on [facility] bmi 2022-04-04 11:10:00 31.79 kg/m2 Comm on [facility] blood pressure systolic 2022-04-04 11:10:00 125 mm[Hg] [facility] blood pressure diastolic 2022-04-04 11:10:00 65 mm[Hg] [facility] height 2022-02-14 08:20:00 66 [in_i] Commo n [facility] weight 2022-02-14 08:20:00 197.3 [lb_av] Co on [facility] temperature 2022-02-14 08:20:00 97.3 [degF] Com [facility] bmi 2022-02-14 08:20:00 31.84 kg/m2 Comm on [facility] oximetry 2022-02-14 08:20:00 96 % Commo n [facility] respiratory rate 2022-02-14 08:20:00 16 /min [facility] blood pressure systolic 2022-02-14 08:20:00 114 mm[Hg] [facility] blood pressure diastolic 2022-02-14 08:20:00 62 mm[Hg] [facility] height 2022-01-17 08:10:00 66 [in_i] Commo n [facility] weight 2022-01-17 08:10:00 195.6 [lb_av] Co mmon [facility] temperature 2022-01-17 08:10:00 98.3 [degF] Com mon [facility] bmi 2022-01-17 08:10:00 31.57 kg/m2 Comm on [facility] oximetry 2022-01-17 08:10:00 98 % Commo n [facility] respiratory rate 2022-01-17 08:10:00 17 /min [facility] blood pressure systolic 2022-01-17 08:10:00 133 mm[Hg] [facility] blood pressure diastolic 2022-01-17 08:10:00 72 mm[Hg] [facility] height 2021-10-16 08:20:00 66 [in_i] Commo n [facility] weight 2021-10-16 08:20:00 194.9 [lb_av] Co mmon [facility] temperature 2021-10-16 08:20:00 98.2 [degF] Com [facility] bmi 2021-10-16 08:20:00 31.45 kg/m2 Comm on [facility] oximetry 2021-10-16 08:20:00 97 % Commo n [facility] respiratory rate 2021-10-16 08:20:00 17 /min [facility] height 2021-10-16 08:20:00 66 [in_i] Commo n [facility] weight 2021-10-16 08:20:00 194.9 [lb_av] Co mmon [facility] temperature 2021-10-16 08:20:00 98.2 [degF] Com [facility] bmi 2021-10-16 08:20:00 31.45 kg/m2 Comm on [facility] oximetry 2021-10-16 08:20:00 97 % Commo n [facility] respiratory rate 2021-10-16 08:20:00 17 /min Common [facility] blood pressure systolic 2021-10-16 08:20:00 132 mm[Hg] [facility] blood pressure diastolic 2021-10-16 08:20:00 77 mm[Hg] [facility] height 2021-10-08 13:10:00 66 [in_i] Commo n [facility] weight 2021-10-08 13:10:00 195.3 [lb_av] Co mmon [facility] temperature 2021-10-08 13:10:00 98.1 [degF] Com mon [facility] bmi 2021-10-08 13:10:00 31.52 kg/m2 Comm on [facility] oximetry 2021-10-08 13:10:00 97 % Commo n [facility] respiratory rate 2021-10-08 13:10:00 17 /min Common [facility] blood pressure systolic 2021-10-08 13:10:00 132 mm[Hg] [facility] blood pressure diastolic 2021-10-08 13:10:00 73 mm[Hg] [facility] height 2021-07-11 09:10:00 66 [in_i] Commo n [facility] weight 2021-07-11 09:10:00 185.1 [lb_av] Co mmon [facility] temperature 2021-07-11 09:10:00 97.6 [degF] Com mon [facility] bmi 2021-07-11 09:10:00 29.87 kg/m2 Comm on [facility] oximetry 2021-07-11 09:10:00 96 % Commo n [facility] respiratory rate 2021-07-11 09:10:00 18 /min [facility] blood pressure systolic 2021-07-11 09:10:00 138 mm[Hg] [facility] blood pressure diastolic 2021-07-11 09:10:00 76 mm[Hg] [facility] Procedures Procedure Date / Time Performed Performing Clinician Source CONSENT/REFUSAL FOR DIAGNOSIS AND TREATMENT 2023-01-28 18:20:41 Doctor Unassigned, [place] [facility] URINALYSIS 2022-10-20 11:29:00 Christen Obando [facility] URINE DRUG (IMMUNOASSAY) - COMPREHENSIVE DRUG SCREEN W/O REFLEX 2022-10-20 11:29:00 Christen Obando [facility] XR CHEST 1 VW 2022-10-20 11:07:00 Christen Obando [facility] COMP. METABOLIC PANEL (38282) 2022-10-20 11:04[facility]00 [facility]22-10-20 11:04:00 Christen Obando [facility] ETHANOL 2022-10-20 11:04:00 Singer [facility] CBC WITH DIFF 2022-10-20 11:04:00 Singer [facility] BASIC METABOLIC PANEL (NA, K, CL, CO2, GLUCOSE, BUN, CREATININE, CA) 2022-08-30 17:22:00 Gertrude Chinchilla [facility] URINALYSIS 2022-08-30 14:21:00 Gertrude Chinchilla [facility] URINE DRUG (IMMUNOASSAY) - COMPREHENSIVE DRUG SCREEN W/O REFLEX 2022-08-30 14:21:00 Gertrude Chinchilla [facility] XR CHEST 1 2022-08-30 14:04:16 Gertrude Chinchilla [facility] MAGNESIUM 2022-08-30 14:03:00 Gertrude Chinchilla [facility] TROPONIN I 2022-08-30 14:03:00 Gertrude Chinchilla [facility] COMP. METABOLIC PANEL (84234) 2022-08-30 14:03:00 Gertrude Chinchilla [facility] ETHANOL 2022-08-30 14:03:00 Gertrude Chinchilla Un [facility] CBC WITH DIFF 2022-08-30 14:03:00 Gertrude Chinchilla [facility] XR CHEST 1 2022-05-24 11:38:14 Callie Cuellar [facility] MAGNESIUM 2022-05-24 08:56:00 Callie Cuellar [facility] TROPONIN I 2022-05-24 08:56:00 Callie Cuellar [facility] BASIC METABOLIC PANEL (NA, K, CL, CO2, GLUCOSE, BUN, CREATININE, CA) 2022-05-24 08:56:00 Callie Cuellar [facility] CBC WITH DIFF 2022-05-24 08:56:00 [facility] 2022-05-24 03:51:00 Callie Cuellar [facility] XR KUB 2022-05-23 22:25:58 Callie Cuellar [facility] URINALYSIS 2022-05-23 22:15:00 Gertrude Chinchilla [facility] CREATININE, URINE RANDOM 2022-05-23 22:15:00 Vani Cuellar [facility] SODIUM, URINE RANDOM 2022-05-23 22:15:00 Callie Cuellar [facility] URINE DRUG (IMMUNOASSAY) - COMPREHENSIVE DRUG SCREEN W/O REFLEX 2022-05-23 22:15:00 Gertrude Chinchilla [facility] TRANSTHORACIC ECHO (TTE) COMPLETE 2022-05-23 20:33:00 Callie Cuellar [facility] COVID-19 (ID NOW RAPID TESTING) 2022-05-23 16:39:00 Gertrude Chinchilla [facility] LAB ONLY COVID INTERPRETATION 2022-05-23 16:39:00 Gertrude Chinchilla [facility] TROPONIN I 2022-05-23 13:42:00 Gertrude Chinchilla [facility] COMP. METABOLIC PANEL (74702) 2022-05-23 13:42:00 Gertrude Chinchilla [facility] CBC WITH DIFF 2022-05-23 13:42:00 Gertrude Chinchilla [facility] HB ECG ROUTINE & RHYTHM STRIP 2022-05-23 13:12:28 Gertrude Chinchilla [facility] EKG-12 LEAD 2022-05-23 12:44:00 Gertrude Chinchilla [facility] AUTHORIZATION FOR RELEASE OF PHI 2021-11-12 06:01:00 Doctor Unassigned, [place] [facility] Encounters Start Date/Time End Date/Time Encounter Type Admission Type Attending Clinicians Care Facility Care Department Encounter ID Source 2024-01-16 10:32:00 Outpatient Rosana Red [facility] [id number] [facility] 2024-01-08 13:33:00 Outpatient Rosana Red [facility] [id number] [facility] 2024-01-02 16:07:00 Outpatient Rosana Red [facility] [id number] [facility] 2023-12-11 12:59:00 Outpatient Rosana Red [facility] [id number] [facility] 2023-12-10 09:50:00 Outpatient Rosana Red [facility] [id number] [facility] 2023-12-09 09:09:00 Outpatient Rosana Red [facility] [id number] [facility] 2023-10-28 10:03:00 Outpatient Rosana Red [facility] [id number] [facility] 2023-09-25 09:50:00 Outpatient Rosana Red [facility] [id number] [facility] 2023-09-15 10:25:00 Outpatient Rosana Red [facility] [id number] [facility] 2023-09-12 08:30:00 Outpatient Rosana Red [facility] [id number] [facility] 2023-08-15 09:11:00 Outpatient Rosana Red [facility] [id number] [facility] 2023-08-14 16:35:00 Outpatient Ross, Mahad [facility] [id number] [facility] 2023-07-04 14:02:00 Outpatient Ross, Mahad [facility] [id number] [facility] 2023-06-05 14:42:00 Outpatient Ross, Mahad [facility] [id number] [facility] 2023-05-14 15:43:00 Outpatient Ross, Mahad [facility] [id number] [facility] 2023-05-09 14:32:00 Outpatient Ross, Mahad [facility] [id number] [facility] 2023-02-11 08:03:01 Outpatient Ross, Mahad [facility] [id number] [facility] 2022-12-02 14:44:00 Outpatient Ross, Mahad [facility] [id number] [facility] 2022-11-14 12:02:00 Outpatient Ross, Mahad [facility] [id number] [facility] 2022-11-12 10:39:01 Outpatient Ross, Mahad [facility] [id number] [facility] 2022-10-07 09:37:01 Outpatient Ross, Mahad [facility] [id number] [facility] 2022-10-04 16:32:01 Outpatient Ross, Mahad [facility] [id number] [facility] 2022-08-16 15:23:00 Outpatient Ross, Mahad [facility] [id number] [facility] 2022-07-31 14:32:00 Outpatient Ross, Mahad [facility] [id number] [facility] 2022-07-29 16:01:01 Outpatient Ross, Mahad [facility] [id number] [facility] 2022-07-19 16:30:01 Outpatient Ross, Mahad [facility] [id number] [facility] 2022-07-16 10:11:00 Outpatient Ross, Mahad [facility] [id number] [facility] 2022-06-25 14:39:00 Outpatient Ross, Mahad [facility] [id number] [facility] 2022-05-16 12:11:01 Outpatient Ross, Mahad [facility] [id number] [facility] 2021-10-24 13:24:10 Outpatient Ross, Mahad [facility] [id number] [facility] 2021-10-24 13:06:32 Outpatient Ross, Mahad [facility] [id number] [facility] 2021-10-24 12:40:59 Outpatient Ross, Mahad [facility] [id number] [facility] 2021-10-24 12:30:18 Outpatient Ross, Mahad [facility] [id number] [facility] 2021-10-24 12:29:04 Outpatient Ross, Mahad [facility] [id number] [facility] 2021-10-24 11:52:46 Outpatient Ross, Mahad [facility] [id number] [facility] 2021-10-24 11:44:17 Outpatient Ross, Mahad [facility] [id number] [facility] 2021-10-24 11:37:11 Outpatient Ross, Mahad [facility] [id number] [facility] 2021-07-28 05:50:12 Emergency [facility] [id number] [facility] 2023-12-30 00:00:00 2023-12-30 00:00:00 (TEL) ST[facility]C [facility] [id number] [facility] 2023-12-17 00:00:00 2023-12-17 00:00:00 (TEL) [facility]C [facility] [id number] [facility] 2023-12-12 00:00:00 2023-12-12 00:00:00 (TEL) [facility]C [facility] [id number] [facility] 2023-12-11 00:00:00 2023-12-11 00:00:00 (TEL) [facility] [id number] [facility] 2023-12-10 00:00:00 2023-12-10 00:00:00 OFFICE VISIT ESTAB PT LEVEL 4 [facility] [id number] [facility] 2023-12-10 00:00:00 2023-12-10 00:00:00 SUB ANNUAL [facility] WELLNESS VISIT STL[facility] ST[facility]C [id number] [facility] 2023-12-09 00:00:00 2023-12-09 00:00:00 (TEL) [facility]C [facility] [id number] [facility] 2023-12-02 00:00:00 2023-12-02 00:00:00 (TEL) [facility]C [facility] [id number] [facility] 2023-11-27 00:00:00 2023-11-27 00:00:00 (TEL) [facility]C [facility] [id number] [facility] 2023-11-27 00:00:00 2023-11-27 00:00:00 (TEL) [facility]C [facility] [id number] [facility] 2023-11-18 00:00:00 2023-11-18 00:00:00 (TEL) ST[facility]C [facility] [id number] [facility] 2023-11-03 00:00:00 2023-11-03 00:00:00 (TEL) [facility]C [facility] [id number] [facility] 2023-11-03 00:00:00 2023-11-03 00:00:00 OFFICE VISIT ESTAB PT LEVEL 4 [facility] [id number] [facility] 2023-10-17 00:00:00 2023-10-17 00:00:00 OFFICE VISIT ESTAB PT LEVEL 4 [facility] [id number] [facility] 2023-10-15 00:00:00 2023-10-15 00:00:00 (TEL) ST[facility]C ST[facility] [id number] [facility] 2023-09-24 00:00:00 2023-09-24 00:00:00 (TEL) ST[facility]C ST[facility] [id number] [facility] 2023-09-24 00:00:00 2023-09-24 00:00:00 (TEL) [facility]C [facility] [id number] [facility] 2023-09-16 00:00:00 2023-09-16 00:00:00 OFFICE VISIT NEW PT LEVEL 4 [facility] [id number] [facility] 2023-08-14 00:00:00 2023-08-14 00:00:00 (TEL) STLMLC [facility]C [id number] [facility] 2023-07-08 00:00:00 2023-07-08 00:00:00 OFFICE VISIT ESTAB PT LEVEL 4 [facility] [id number] [facility] 2023-07-03 00:00:00 2023-07-03 00:00:00 (TEL) STLMLC ST[facility]C [id number] [facility] 2023-06-30 00:00:00 2023-06-30 00:00:00 (TEL) STL[facility]C [facility] [id number] [facility] 2023-06-24 00:00:00 2023-06-24 00:00:00 (TEL) ST[facility]C [facility] [id number] [facility] 2023-06-11 00:00:00 2023-06-11 00:00:00 (TEL) [facility]C [facility] [id number] [facility] 2023-05-29 00:00:00 2023-05-29 00:00:00 (TEL) [facility]C [facility] [id number] [facility] 2023-05-20 00:00:00 2023-05-20 00:00:00 (TEL) [facility]C [facility] [id number] [facility] 2023-05-15 00:00:00 2023-05-15 00:00:00 OFFICE VISIT ESTAB PT LEVEL 4 [facility] [id number] [facility] 2023-04-25 00:00:00 2023-04-25 00:00:00 [place] [facility] [id number] [facility] 2023-04-25 00:00:00 2023-04-25 00:00:00 Outpatient [place] [facility] [id number] [facility] 2023-03-05 00:00:00 2023-03-05 00:00:00 (TEL) STLMLC [facility] [id number] [facility] 2023-02-20 16:29:56 2023-02-20 16:29:56 Outpatient SFA SFA [id number] Tim Lambert 2023-02-12 00:00:00 2023-02-12 00:00:00 OFFICE VISIT ESTAB PT LEVEL 4 [facility] [id number] [facility] 2023-02-12 00:00:00 2023-02-12 00:00:00 (TEL) [facility]C [facility] [id number] [facility] 2023-01-31 00:00:00 2023-01-31 00:00:00 (TEL) STLMLC [facility] [id number] [facility] 2023-01-28 13:23:00 2023-01-28 14:59:00 Emergency ZANE RHOADES [facility]OTHY [facility] [id number] [facility] 2023-01-28 13:23:00 2023-01-28 14:59:00 Emergency Zane Liu [facility] [id number] [facility] 2023-01-27 00:00:00 2023-01-27 00:00:00 OFFICE VISIT ESTAB PT LEVEL 4 [facility] ST[facility] [id number] [facility] 2023-01-22 11:17:34 2023-01-22 11:17:34 Outpatient SFA SFA [id number] Tim Lambert 2023-01-10 00:00:00 2023-01-10 00:00:00 (TEL) STLMLC [facility] [id number] [facility] 2023-01-01 00:00:00 2023-01-01 00:00:00 (TEL) STLMLC ST[facility]C [id number] [facility] 2022-12-24 08:30:06 2022-12-24 08:30:06 Outpatient SFA SFA [id number] Tim Lambert 2022-12-11 00:00:00 2022-12-11 00:00:00 OFFICE VISIT ESTAB PT LEVEL 4 STLMLC STLMLC [id number] [facility] 2022-12-02 00:00:00 2022-12-02 00:00:00 (TEL) STLMLC STLMLC [id number] [facility] 2022-11-27 08:05:24 2022-11-27 08:05:24 Outpatient SFA SFA [id number] 0301 Tim Lambert 2022-11-18 00:00:00 2022-11-18 00:00:00 (TEL) STLMLC STLMLC [id number] [facility] 2022-11-14 00:00:00 2022-11-14 00:00:00 OFFICE VISIT ESTAB PT LEVEL 4 STLMLC STLMLC [id number] [facility] 2022-11-14 00:00:00 2022-11-14 00:00:00 SUB [facility]AL [facility] WELLNESS VISIT STLMLC STLMLC [id number] [facility] 2022-11-14 00:00:00 2022-11-14 00:00:00 OFFICE VISIT ESTAB PT LEVEL 4 STLMLC STLMLC [id number] [facility] 2022-11-05 00:00:00 2022-11-05 00:00:00 (TEL) STLMLC STLMLC [id number] [facility] 2022-10-30 17:27:51 2022-10-30 17:27:51 Outpatient SFA SFA [id number] 0201 Tim F Fausto 2022-10-24 00:00:00 2022-10-24 00:00:00 (TEL) STLMLC STLMLC [id number] [facility] 2022-10-20 04:41:00 2022-10-20 06:40:00 Emergency X CHRISTEN OBANDO [facility] ERT [id number] [facility] 2022-10-20 04:41:00 2022-10-20 06:40:00 Emergency Christen Obando [facility] 1.2.840.114 350.1.13.10 4.2.7.2.686 [id number] [facility] 2022-10-16 00:00:00 2022-10-16 00:00:00 (TEL) STLMLC STLMLC [id number] [facility] 2022-10-03 15:56:50 2022-10-03 15:56:50 Outpatient SFA [facility] [id number] Tim F Fausto 2022-10-03 00:00:00 2022-10-03 00:00:00 (TEL) STLMLC STLMLC [id number] [facility] 2022-09-04 08:12:48 2022-09-04 08:12:48 Outpatient SFA SFA [id number] Tim Lambert 2022-09-03 14:40:55 2022-09-03 14:40:55 Outpatient SFA SFA [id number] Tim Lambert 2022-08-30 07:45:00 2022-08-30 15:39:00 Emergency X GERTRUDE CHINCHILLA [facility] ERT [id number] [facility] 2022-08-30 07:45:00 2022-08-30 15:39:00 Emergency Gertrude Chinchilla [facility] 1.2.840.114 350.1.13.10 4.2.7.2.686 [id number] [facility] 2022-08-12 00:00:00 2022-08-12 00:00:00 Outpatient [place] _B DMG DMG [id number] [facility] 2022-08-12 00:00:00 2022-08-12 00:00:00 Outpatient [place] _B DMG DMG [id number] [facility] 2022-08-12 00:00:00 2022-08-12 00:00:00 Outpatient [place] _B DMG DMG [id number] [facility] 2022-08-12 00:00:00 2022-08-12 00:00:00 Outpatient [place] _B DMG DMG [id number] [facility] 2022-07-31 00:00:00 2022-07-31 00:00:00 OFFICE VISIT ESTAB PT [facility]EVEL 4 [facility] [id number] [facility] 2022-06-21 00:00:00 2022-06-21 00:00:00 Outpatient Cobb_T DMG DMG [id number] [facility] 2022-06-20 00:00:00 2022-06-20 00:00:00 Outpatient Cobb_T DMG DMG [id number] [facility] 2022-06-06 00:00:00 2022-06-06 00:00:00 (TEL) STLMLC STLMLC [id number] [facility] 2022-05-27 00:00:00 2022-05-27 00:00:00 Transition of Care Ayo, Simón A [facility] 1..840.114 350.1.13.10 4.2.7.2.686 [id number] [facility] 2022-05-23 07:39:00 2022-05-24 17:43:00 Outpatient X CALLIE CUELLAR [facility] [id number] [facility] 2022-05-23 07:39:00 2022-05-24 17:43:00 Emergency Gertrude Chinchilla David [facility] 1..840.114 350.1.13.10 4.2.7.2.686 [id number] [facility] 2022-05-09 00:00:00 2022-05-09 00:00:00 Outpatient Cobb_T DMG [facility] [id number] [facility] 2022-04-18 00:00:00 2022-04-18 00:00:00 OFFICE VISIT ESTAB PT LEVEL 4 STLMLC STLMLC [id number] [facility] 2022-04-18 00:00:00 2022-04-18 00:00:00 (TEL) STLMLC STLMLC [id number] [facility] 2022-04-12 03:30:00 2022-04-12 03:30:00 Outpatient Deshazo_T DMG [facility] [id number] [facility] 2022-04-10 04:58:00 2022-04-10 04:58:00 [place] [id number] [facility] 2022-04-04 00:00:00 2022-04-04 00:00:00 (TEL) STLMLC STLMLC [id number] [facility] 2022-04-04 00:00:00 2022-04-04 00:00:00 (EST. VIDEO) EST VIRTUAL VIDEO VISIT STLMLC STLMLC [id number] [facility] 2022-03-26 00:00:00 2022-03-26 00:00:00 (TEL) STLMLC STLMLC [id number] [facility] 2022-02-14 00:00:00 2022-02-14 00:00:00 OFFICE VISIT ESTAB PT LEVEL 5 STLMLC STLMLC [id number] [facility] 2022-01-22 00:00:00 2022-01-22 00:00:00 (TEL) STLMLC STLMLC [id number] [facility] 2022-01-17 00:00:00 2022-01-17 00:00:00 OFFICE VISIT ESTAB PT LEVEL 4 STLMLC STLMLC [id number] [facility] 2021-11-12 00:00:00 2021-11-12 00:00:00 Orders Only Doctor Unassigned, [place] [facility] 1.2.840.114 350.1.13.10 4.2.7.2.686 [id number] [facility] 2021-10-16 00:00:00 2021-10-16 00:00:00 [facility] WELLNESS VISIT STLMLC STLMLC [id number] [facility] 2021-10-16 00:00:00 2021-10-16 00:00:00 OFFICE VISIT ESTAB PT LEVEL 4 STLMLC STLMLC [id number] [facility] 2021-10-09 14:20:00 2021-10-09 14:20:00 Outpatient NEELA FANG [facility] [id number] [facility] 2021-10-09 00:00:00 2021-10-09 00:00:00 (TEL) STLMLC STLMLC [id number] [facility] 2021-10-08 00:00:00 2021-10-08 00:00:00 (HOSP F/U) Hospital Follow Up STLMLC STLMLC [id number] [facility] 2021-10-05 00:00:00 2021-10-05 00:00:00 (TEL) STLMLC STLMLC [id number] [facility] 2021-10-02 00:00:00 2021-10-02 00:00:00 Transition of Care Brandyn Rollinsele Carlos MCCANN [facility] 1.2.840.114 350.1.13.10 4.2.7.2.686 [id number] [facility] 2021-10-01 00:00:00 2021-10-01 00:00:00 (TEL[facility] [id number] [facility] 2021-09-27 17:38:00 2021-09-30 15:22:00 Outpatient X VIKASH GRIMALDO [facility] [id number] [facility] 2021-09-27 17:38:00 2021-09-30 15:22:00 Outpatient VIKASH PEMBERTON [facility] [id number] [facility] 2021-09-27 17:38:00 2021-09-30 15:22:00 [facility] 1.2.840.114 350.1.13.10 4.2.7.2.686 [id number] [facility] 2021-09-19 01:00:00 2021-09-19 01:00:00 Outpatient OWENS_T DMG [facility] [id number] [facility] 2021-08-10 10:31:00 2021-08-10 10:31:00 Outpatient OWENS_T DMG DMG [id number] [facility] 2021-08-07 02:14:00 2021-08-07 02:14:00 Outpatient CURRY_S DMG [facility] [id number] [facility] 2021-07-17 00:00:00 2021-07-17 00:00:00 (TEL) [facility] [id number] [facility] 2021-07-11 00:00:00 2021-07-11 00:00:00 OFFICE VISIT ESTAB PT LEVEL 4 STLMLC STLMLC [id number] [facility] 2021-07-10 00:00:00 2021-07-10 00:00:00 (TEL) STLMLC STLMLC [id number] [facility] 2021-07-04 00:00:00 2021-07-04 00:00:00 (TEL) STLMLC STLMLC [id number] [facility] 2021-06-26 00:00:00 2021-06-26 00:00:00 (TEL) STLMLC STLMLC [id number] [facility] 2021-05-29 00:00:00 2021-05-29 00:00:00 Outpatient STLMLC STLMLC [id number] [facility] 2021-05-22 05:13:00 2021-05-22 05:13:00 Outpatient CURRY_S DMG [place] [id number] [facility] 2021-05-22 00:00:00 2021-05-22 00:00:00 Outpatient STLMLC STLMLC [id number] [facility] 2021-05-04 00:00:00 2021-05-04 00:00:00 Outpatient STLMLC STLMLC [id number] [facility] 2021-04-30 00:00:00 2021-04-30 00:00:00 Outpatient STLMLC STLMLC [id number] [facility] 2021-04-30 00:00:00 2021-04-30 00:00:00 Outpatient STLMLC STLMLC [id number] [facility] 2021-04-06 00:00:00 2021-04-06 00:00:00 Outpatient STLMLC STLMLC [id number] [facility] 2021-01-29 06:02:00 2021-01-29 06:02:00 Outpatient DMG DMG [id number] [facility] 2021-01-18 12:00:00 2021-01-18 12:00:00 Outpatient DMG [facility] [id number] [facility] 2020-08-14 14:12:00 2020-08-14 15:54:00 Emergency Love Pickard [facility] 1.2.840.114 350.1.13.10 4.2.7.2.686 [id number] 2020-08-14 14:12:00 2020-08-14 15:54:00 Emergency Love Pickard [facility] 1.2.840.114 350.1.13.10 4.2.7.2.686 [id number] [facility] Results Test Description Test Time Test Comments Results Result Co mments Source VITAMIN D, 25 [id number] 00:00:00* Test Item Value Reference Range Interpretation Comme nts VITAMIN D, 25 OH (test code = 1989-3) 40 NG/ML SEE BELOW NG/ML LIPID PANEL WITH REFLEX DIRECT [id number] 00:00:00* Test Item Value Reference Range Interpretation Comme nts CALC LDL CHOL (test code = 53266-7) 126 MG/DL See_Comment H [Automated Infinite [employer]] The system which generated this result transmitted reference range: <100 MG/DL. The reference range was not used to interpret this result as normal/abnormal. CHOLESTEROL (test code = 2093-3) 210 MG/DL See_Comment H [Automated Infinite Za ge] The system which generated this result transmitted reference range: <200 MG/DL. The reference range was not used to interpret this result as normal/abnormal. HDL CHOLESTEROL (test code = 2085-9) 57 MG/DL See_Comment [Automated Infinite Za ge] The system which generated this result transmitted reference range: >39 MG/DL. The reference range was not used to interpret this result as normal/abnormal. RISK RATIO LDL/HDL (test code = 81024-3) 2.21 RATIO See_Comment [Automated message] The system [...] interpret this result as normal/abnormal. COMPREHENSIVE METABOLIC [id number] 00:00:00* Test Item Value Reference Range Interpretation [...] result as normal/abnormal. CALCIUM (test code = 44518-2) 9.5 MG/DL See_Comment [Automated messa ge] The [...] as normal/abnormal. CALC GLOBULIN (test code = 89424-3) 2.7 G/DL See_Comment [Automated messa ge] The [...] result as normal/abnormal. CHLORIDE (test code = 5-0) 105 MEQ/L See_Comment [Automated messa ge] The [...] normal/abnormal. eGFR (2020 CKD-EPI) (test code = 27479-0) 79 ML/MIN/1.73 See_Comment [Automated messa ge] The [...] interpret this result as normal/abnormal. CBC WITH [id number] 11:42:32* Test Item Value Reference Range Interpretation [...] 33.7 g/dL 31.2-35.0 RDW-SD (test code = 20313-7) 45.5 fL 38.5-51.6 RDW-CV (test code = 788-0) 13.8 % 12.1-15.4 PLT (test code = 777-3) See_Comment [Automated messa ge] The system which generated this result transmitted reference range: 150 - 328 10*3/?L. The reference range was not used to interpret this result as normal/abnormal. MPV (test code = 74935-1) 8.7 fL 9.8-13.0 L NRBC/100 WBC (test code = 1026166301) See_Comment [Automated me ssage] The system which generated this result transmitted reference range: 0.0 - 10.0 /100 WBCs. The reference range was not used to interpret this result as normal/abnormal. NRBC x10^3 (test code = 7378220192) See_Comment [Automated messa ge] The system which generated this result transmitted reference range: 10*3/?L. The reference range was not used to interpret this result as normal/abnormal. GRAN MAT (NEUT) % (test code = 770-8) 92.6 % IMM GRAN % (test code = 6573545765) 0.90 % LYMPH % (test code = 736-9) 5.3 % MONO % (test code = 5905-5) 0.6 % EOS % (test code = 713-8) 0.3 % BASO % (test code = 706-2) 0.3 % GRAN MAT x10^3(ANC) (test code = 8561589993) 9.61 10*3/uL 1.99-6.95 H IMM GRAN x10^3 (test code = 9253430759) 0.09 10*3/uL 0.00-0.06 H LYMPH x10^3 (test code = 731-0) 0.55 10*3/uL 1.09-3.23 L MONO x10^3 (test code = 742-7) 0.06 10*3/uL 0.36-1.02 L EOS x10^3 (test code = 711-2) 0.03 10*3/uL 0.06-0.53 L BASO x10^3 (test code = 704-7) 0.03 10*3/uL 0.01-0.09 Lab Interpretation (test code = 70546-8) Abnormal [facility] 11:31:09 SALICYLATE<10mg/L10/20/2022 5:31 AM [facility] Range: ? Analgesic and Antipyretic Use ? 20- 100 mg/L ? ? Anti-Inflammatory Use ? 100-250 mg/L Toxic Range: ? Greater than 300 mg/LUnSaint Mark's Medical CenterETHANOL2023-01-22 11:31:04ALCOHOL<10mg/dL10/20/2022 5:31 AM [facility]<10 Dsjsqzge05-892 Toxic>100 Depression of SENIOR COMPLIANCE ANALYST>400 Fatalities ReportedUnSaint Mark's Medical CenterACETAMINOPHEN2023-01-22 11:30:59* Test Item Value Reference Range Interpretation Comme nts ACETAMINOP (test code = 5101859016) 10.0-30.0 L ISIDORO (test code = ISIDORO) Toxic: Greater porsche n 200 ug/mL @ 4 hour post ingestion or greater than 50 ug/mL @ 12 hour post ingestion Lab Interpretation (test code = 27447-2) Abnormal [facility]. METABOLIC PANEL (53153)2022-10-20 11:26:11* Test Item Value Reference Range Interpretation Comme nts NA (test code = 9925384823) 135 mmol/L 135-145 K (test code = 7477868929) 5.9 mmol/L 3.5-5.0 H CL (test code = 3405777584) 105 mmol/L 98-108 CO2 TOTAL (test code = 3377905878) 21 mmol/L 23-31 L AGAP (test code = 9211144862) 2-16 BUN (test code = 9085578452) 25 mg/dL 7-23 H GLUCOSE (test code = 5318623283) 127 mg/dL 70-110 H CREATININE (test code = 3113181201) 1.66 mg/dL 0.60-1.25 H TOTAL BILI (test code = 6014075476) 1.0 mg/dL 0.1-1.1 CALCIUM (test code = 6007874193) 8.9 mg/dL 8.6-10.6 T PROTEIN (test code = 2559782171) 7.9 g/dL 6.3-8.2 ALBUMIN (test code = 6964934016) 4.6 g/dL 3.5-5.0 ALK PHOS (test code = 0557510398) 134 U/L 34-122 H ALTv (test code = 1742-6) 30 U/L 5-50 AST(SGOT) (test code = 2412127724) 45 U/L 13-40 H eGFR (test code = 3087036553) mL/min/1.73m2 ISIDORO (test code = ISIDORO) Association [...] imaging tests). Lab Interpretation (test code = 22969-3) Abnormal [facility] METABOLIC PANEL (NA, K, CL, CO2, GLUCOSE, BUN, CREATININE, CA)2022-08-30 18:07:32* Test Item Value Reference Range Interpretation Comme nts NA (test code = 0551461578) 143 mmol/L 135-145 K (test code = 6263541845) 4.1 mmol/L 3.5-5.0 CL (test code = 2305672115) 115 mmol/L 98-108 H CO2 TOTAL (test code = 2737403338) 19 mmol/L 23-31 L AGAP (test code = 5257129959) 2-16 BUN (test code = 1906216027) 33 mg/dL 7-23 H GLUCOSE (test code = 2417264594) 66 mg/dL 70-110 L CREATININE (test code = 2234138971) 1.99 mg/dL 0.60-1.25 H CALCIUM (test code = 5654619592) 8.3 mg/dL 8.6-10.6 L eGFR (test code = 1286370571) mL/min/1.73m2 ISIDORO (test code = ISIDORO) Association [...] imaging tests). Lab Interpretation (test code = 77781-9) Abnormal [facility]ressTRFORMERLY [facility] [id number] 15:44:49* Test Item Value Reference Range Interpretation Comments TROPONIN I (test code = 0897314021) 0.004 ng/mL See_Comment [Automated message] The system [...] of biotin. Lab Interpretation (test code = 49036-7) Normal [facility]ETH[facility]OL2022-12-02 15:27:10 ALCOHOL<10mg/dL08/30/2022 9:27 AM [facility]<10 Clxddjtz97-239 Toxic>100 Depression of SENIOR COMPLIANCE ANALYST>400 Fatalities ReportedHCA [facility] Healthcare [facility] CypressCOMP. METABOLIC PANEL (43042)2022-08-30 15:24:23* Test Item Value Reference Range Interpretation Comme nts NA (test code = 6925456547) 144 mmol/L 135-145 K (test code = 8115109422) 3.9 mmol/L 3.5-5.0 CL (test code = 0917908585) 109 mmol/L 98-108 H CO2 TOTAL (test code = 5471704808) 22 mmol/L 23-31 L AGAP (test code = 0112060312) 2-16 BUN (test code = 9796123916) 37 mg/dL 7-23 H GLUCOSE (test code = 2882057564) 86 mg/dL 70-110 CREATININE (test code = 1231988197) 2.47 mg/dL 0.60-1.25 H TOTAL BILI (test code = 7759215376) 0.8 mg/dL 0.1-1.1 CALCIUM (test code = 6430750367) 9.3 mg/dL 8.6-10.6 T PROTEIN (test code = 4779130684) 7.0 g/dL 6.3-8.2 ALBUMIN (test code = 3762926839) 4.4 g/dL 3.5-5.0 ALK PHOS (test code = 0139196557) 119 U/L 34-122 ALTv (test code = 1742-6) 22 U/L 5-50 AST(SGOT) (test code = 9296559289) 38 U/L 13-40 eGFR (test code = 7745686060) mL/min/1.73m2 ISIDORO (test code = ISIDORO) Association [...] imaging tests). Lab Interpretation (test code = 82458-7) Abnormal [facility]ressMAGNESIUM2022-12-02 15:24:23* Test Item Value Reference Range Interpretation Comme nts MAGNESIUM (test code = 8827210989) 2.1 mg/dL 1.7-2.4 Lab Interpretation (test cod e = 86634-4) Normal [facility] WITH [id number] 14:36:33* Test Item Value Reference Range Interpretation Comme nts WBC (test code = 6690-2) See_Comment [Automated [employer]] The system which generated this result transmitted [...] 32.7 g/dL 31.2-35.0 RDW-SD (test code = 45732-4) 44.7 fL 38.5-51.6 RDW-CV (test code = 788-0) 13.2 % 12.1-15.4 PLT (test code = 777-3) See_Comment [Automated Infinite Za ge] The system which generated this result transmitted reference range: 150 - 328 10*3/?L. The reference range was not used to interpret this result as normal/abnormal. MPV (test code = 88718-9) 9.7 fL 9.8-13.0 L NRBC/100 WBC (test code = 4301712070) See_Comment [Automated [employer] ssage] The system which generated this result transmitted reference range: 0.0 - 10.0 /100 WBCs. The reference range was not used to interpret this result as normal/abnormal. NRBC x10^3 (test code = 5337191031) See_Comment [Automated messa ge] The system which generated this result transmitted reference range: 10*3/?L. The reference range was not used to interpret this result as normal/abnormal. GRAN MAT (NEUT) % (test code = 770-8) 62.1 % IMM GRAN % (test code = 9043868056) 0.50 % LYMPH % (test code = 736-9) 22.6 % MONO % (test code = 5905-5) 9.1 % EOS % (test code = 713-8) 5.2 % BASO % (test code = 706-2) 0.5 % GRAN MAT x10^3(ANC) (test code = 2408670439) 5.38 10*3/uL 1.99-6.95 IMM GRAN x10^3 (test code = 5710873002) 0.04 10*3/uL 0.00-0.06 LYMPH x10^3 (test code = 731-0) 1.96 10*3/uL 1.09-3.23 MONO x10^3 (test code = 742-7) 0.79 10*3/uL 0.36-1.02 EOS x10^3 (test code = 711-2) 0.45 10*3/uL 0.06-0.53 BASO x10^3 (test code = 704-7) 0.04 10*3/uL 0.01-0.09 Lab Interpretation (test code = 48230-1) Abnormal [facility] CypressTroponin [id number] 10:17:19* Test Item Value Reference Range Interpretation Comments TROPONIN I (test code = 0069874578) 0.007 ng/mL See_Comment [Automated message] The system [...] of biotin. Lab Interpretation (test code = 20712-5) Normal [facility]ressMAGNESIUM2022-08-26 10:05:38* Test Item Value Reference Range Interpretation Comme nts MAGNESIUM (test code = 2246826701) 2.1 mg/dL 1.7-2.4 Lab Interpretation (test cod e = 54678-3) Normal [facility] METABOLIC PANEL (NA, K, CL, CO2, GLUCOSE, BUN, CREATININE, CA)2022-05-24 10:05:18* Test Item Value Reference Range Interpretation Comme nts NA (test code = 2511023166) 136 mmol/L 135-145 K (test code = 9476145984) 4.9 mmol/L 3.5-5 CL (test code = 4864450612) 109 mmol/L 98-108 H CO2 TOTAL (test code = 8742311119) 21 mmol/L 23-31 L AGAP (test code = 8538000892) 2-16 BUN (test code = 0831237474) 27 mg/dL 7-23 H GLUCOSE (test code = 8545794867) 89 mg/dL 70-110 CREATININE (test code = 7346510811) 1.62 mg/dL 0.6-1.25 H CALCIUM (test code = 7662553207) 8.5 mg/dL 8.6-10.6 L eGFR (test code = 7641649798) mL/min/1.73m2 ISIDORO (test code = ISIDORO) Association [...] imaging tests). Lab Interpretation (test code = 82315-1) Abnormal [facility] WITH [id number] 09:31:37* Test Item Value Reference Range Interpretation Comme nts WBC (test code = 6690-2) See_Comment [Automated Infinite Za ge] The system which generated this result transmitted reference range: 4.20 - 10.70 10*3/?L. The reference range was not used to interpret this result as normal/abnormal. RBC (test code = 789-8) See_Comment L [Automated Infinite Za ge] The system which generated this result [...] 33.3 g/dL 31.2-35 RDW-SD (test code = 41549-6) 43.6 fL 38.5-51.6 RDW-CV (test code = 788-0) 13.1 % 12.1-15.4 PLT (test code = 777-3) See_Comment [Automated Infinite Za ge] The system which generated this result transmitted reference range: 150 - 328 10*3/?L. The reference range was not used to interpret this result as normal/abnormal. MPV (test code = 74189-8) 9.3 fL 9.8-13 L NRBC/100 WBC (test code = 3147126680) See_Comment [Automated [employer] ssage] The system which generated this result transmitted reference range: 0.0 - 10.0 /100 WBCs. The reference range was not used to interpret this result as normal/abnormal. NRBC x10^3 (test code = 0476625985) See_Comment [Automated messa ge] The system which generated this result transmitted reference range: 10*3/?L. The reference range was not used to interpret this result as normal/abnormal. GRAN MAT (NEUT) % (test code = 770-8) 56.1 % IMM GRAN % (test code = 9082390357) 0.40 % LYMPH % (test code = 736-9) 27.1 % MONO % (test code = 5905-5) 9.9 % EOS % (test code = 713-8) 5.8 % BASO % (test code = 706-2) 0.7 % GRAN MAT x10^3(ANC) (test code = 4698290296) 4.53 10*3/uL 1.99-6.95 IMM GRAN x10^3 (test code = 3646060829) 0.03 10*3/uL 0-0.06 LYMPH x10^3 (test code = 731-0) 2.19 10*3/uL 1.09-3.23 MONO x10^3 (test code = 742-7) 0.80 10*3/uL 0.36-1.02 EOS x10^3 (test code = 711-2) 0.47 10*3/uL 0.06-0.53 BASO x10^3 (test code = 704-7) 0.06 10*3/uL 0.01-0.09 Lab Interpretation (test code = 48892-1) Abnormal [facility] [id number] 04:35:45* Test Item Value Reference Range Interpretation Comments TROPONIN I (test code = 2679827851) 0.004 ng/mL See_Comment [Automated message] The system [...] of biotin. Lab Interpretation (test code = 98922-1) [facility] 01:26:40* Test Item Value Reference Range Interpretation Comme nts Height (test code = 1093676151) in Weight (test code = 2285300610) lbs Systolic BP (test code = 4518472980) mmHg Diastolic BP (test code = 5124397331) mmHg Heart Rate (test code = 9567884950) bpm BSA (test code = 6095591929) 2.09 m2 Ao root annulus (test code = 7473562246) 3.2 cm Ao root diam (test code = 3765749480) 3.20 cm Aortic root (test code = 8165387584) 3.2 cm LVOT diameter (test code = 3289247663) 2.14 cm LVIDD (test code = 9750679705) 5.00 cm IVS (test code = 1395849372) 1.31 cm Interventricular Septum Diastolic Thickness by 2D (test code = 4016217) 1.31 cm LVPWD (test code = 3756132795) 1.32 cm PW (test code = 6568491531) 1.32 cm 0.6-1.1 EF(Teich) (test code = 3232527196) 61.30 % LVIDS (test code = 6371547669) 3.30 cm FS (test code = 0945977424) 33 % EF - 2D (test code = 58112573) 61.30 % LA size (test code = 1663454272) 3.6 cm TR Peak Mayank (test code = 0941300891) 261.9 cm/s Triscuspid Valve Regurgitation Peak Gradient (test code = 7478386561) mmHg LAV(MOD-sp4) (test code = 4817666844) 59.10 mL E wave decelartion time (test code = 9219008558) 0.23 s MV Peak E Mayank (test code = 7930842135) 73.6 cm/s MV stenosis pressure 1/2 time (test code = 9129582556) 70.2 ms MV Peak A Mayank (test code = 2667105079) 55.9 cm/s E/A ratio (test code = 2896290942) ratio MV Prop V (test code = 2327418911) 58.20 cm/s MV E/e' septal (test code = 9380767107) 12.2 cm/s Tapse (test code = 2052280974) 2.9 cm LVOT stroke volume (test code = 1613011145) 103.80 cm3 LVOT peak mayank (test code = 3695297030) 147.2 cm/s LVOT mn grad (test code = 7725763545) mmHg AV LVOT peak gradient (test code = 1051375409) mmHg LVOT peak VTI (test code = 5131078113) 28.7 cm LV V1 mean (test code = 3878755646) 93.00 cm/s Aortic valve mean velocity (test code = 8174680290) 119.4 cm/s Ao peak mayank (test code = 7326804644) 165.6 cm/s Ao VTI (test code = 0219164725) 35.2 cm AV area by cont VTI (test code = 3862304542) 2.9 cm2 AV area peak mayank (test code = [id number]) 3.2 cm2 Ao max PG (test code = 0336841140) 11.00 mm[Hg] AV peak gradient (test code = 5908230564) mmHg AV valve area (test code = 6724780550) 2.90 cm2 AV mean gradient (test code = 9606273204) mmHg Radiology Study observation (narrative) (test code = 52598-5) ISIDORO (test code = ISIDORO) Formatting of [...] 2D, color flow Doppler and spectral Doppler. [facility] [id number] 14:25:35* Test Item Value Reference Range Interpretation Comments TROPONIN I (test code = 7168073125) 0.009 ng/mL See_Comment [Automated message] The system [...] of biotin. Lab Interpretation (test code = 72781-9) Normal [facility]. METABOLIC PANEL ([id number])2022-05-23 14:14:13* Test Item Value Reference Range Interpretation Comme nts NA (test code = 9455946509) 143 mmol/L 135-145 K (test code = 8754560877) 5.0 mmol/L 3.5-5 CL (test code = 1139362194) 111 mmol/L 98-108 H CO2 TOTAL (test code = 5361810671) 20 mmol/L 23-31 L AGAP (test code = 1175175251) 2-16 BUN (test code = 6013292690) 30 mg/dL 7-23 H GLUCOSE (test code = 5477634934) 85 mg/dL 70-110 CREATININE (test code = 5850214310) 2.07 mg/dL 0.6-1.25 H TOTAL BILI (test code = 5776912707) 0.6 mg/dL 0.1-1.1 CALCIUM (test code = 5215416927) 9.0 mg/dL 8.6-10.6 T PROTEIN (test code = 9484706119) 7.2 g/dL 6.3-8.2 ALBUMIN (test code = 1464874205) 4.4 g/dL 3.5-5 ALK PHOS (test code = 4053158008) 121 U/L 34-122 ALTv (test code = 1742-6) 23 U/L 5-50 AST(SGOT) (test code = 0023248870) 29 U/L 13-40 eGFR (test code = 6633636694) mL/min/1.73m2 ISIDORO (test code = ISIDORO) Association [...] imaging tests). Lab Interpretation (test code = 85485-9) Abnormal [facility] WITH [id number] 14:11:10* Test Item Value Reference Range Interpretation Comme nts WBC (test code = 6690-2) See_Comment H [Automated messa ge] The system which generated this result transmitted reference range: 4.20 - 10.70 10*3/?L. The reference range was not used to interpret this result as normal/abnormal. RBC (test code = 789-8) See_Comment [Automated Infinite Za ge] The system which generated this result [...] 33.5 g/dL 31.2-35 RDW-SD (test code = 17392-2) 42.9 fL 38.5-51.6 RDW-CV (test code = 788-0) 12.9 % 12.1-15.4 PLT (test code = 777-3) See_Comment H [Automated messa ge] The system which generated this result transmitted reference range: 150 - 328 10*3/?L. The reference range was not used to interpret this result as normal/abnormal. MPV (test code = 17537-8) 9.0 fL 9.8-13 L NRBC/100 WBC (test code = 9412270323) See_Comment [Automated [employer] ssage] The system which generated this result transmitted reference range: 0.0 - 10.0 /100 WBCs. The reference range was not used to interpret this result as normal/abnormal. NRBC x10^3 (test code = 9604084662) See_Comment [Automated messa ge] The system which generated this result transmitted reference range: 10*3/?L. The reference range was not used to interpret this result as normal/abnormal. GRAN MAT (NEUT) % (test code = 770-8) 71.9 % IMM GRAN % (test code = 1483419647) 0.40 % LYMPH % (test code = 736-9) 16.1 % MONO % (test code = 5905-5) 8.4 % EOS % (test code = 713-8) 2.5 % BASO % (test code = 706-2) 0.7 % GRAN MAT x10^3(ANC) (test code = 8347349331) 8.20 10*3/uL 1.99-6.95 H IMM GRAN x10^3 (test code = 2974206150) 0.05 10*3/uL 0-0.06 LYMPH x10^3 (test code = 731-0) 1.84 10*3/uL 1.09-3.23 MONO x10^3 (test code = 742-7) 0.96 10*3/uL 0.36-1.02 EOS x10^3 (test code = 711-2) 0.29 10*3/uL 0.06-0.53 BASO x10^3 (test code = 704-7) 0.08 10*3/uL 0.01-0.09 Lab Interpretation (test code = 75912-3) Abnormal [facility]"
[2024-01-16] MEDS ORDERED: ONDANSETRON 4 MG/2 ML VIAL ONE (16:57)
[2024-01-16] MEDS ORDERED: MORPHINE 4 MG/ML SYR ONE (16:58)
[2024-01-16] MEDS ORDERED: NA CHLORIDE 0.9% 1,000 ML ONE (16:58)
[2024-01-16 17:10] LABS: Absolute Basophils 0.1 K/uL (0-0.5); Absolute Eosinophils 0.6 K/uL (0-0.5); Absolute Lymphocytes (CBC) 1.9 K/uL (0.7-4.9); Absolute Monocytes 0.9 K/uL (0.1-1.3); Absolute Neutrophil 4.6 K/uL (1.8-8.0); Eosinophils % 6.9 % (0-4.4); Hematocrit 37.4 % (39.6-49.0); Hemoglobin 12.4 g/dL (13.6-17.9); Lymphocytes % 23.7 % (15.3-44.8); MCH 30.6 pg (27.0-35.0); MCHC 33.2 g/dL (32.0-36.0); MCV 92.1 fL (80-100); MPV 7.2 fL (7.6-11.3); Monocytes % 11.1 % (3.3-12.3); Neutrophils % 57.3 % (41.7-73.7); Platelets 372 thou/uL (152-406); RBC Red Blood Cell Count 4.06 M/uL (4.33-5.43); Red Cell Distribution Width 14.4 % (12.1-15.2)
[2024-01-16 17:19] LABS: Albumin 3.8 g/dL (3.4-5.0); Albumin/Globulin Ratio 1.1 (1.1-1.8); Anion Gap 7.9 mEq/L (5.0-15.0); Bilirubin Total 0.4 mg/dL (0.2-1.0); Globulin 3.5 g/dL (2.3-3.5); Potassium 3.9 mEq/L (3.5-5.1); Protein, Total 7.3 g/dL (6.4-8.2)
[2024-01-16 17:23] LABS: Specific Gravity 1.015 (1.005-1.030); Sqamous Epithelial None Seen /HPF (None Seen); Urine Bacteria None Seen /HPF (<20); Urine Bilirubin NEGATIVE (Negative); Urine Blood Negative (Negative); Urine Clarity Clear (Clear); Urine Color Light-Yellow (Yellow); Urine Culture Reflex Order NOT NEEDED; Urine Glucose NEGATIVE (Negative); Urine Ketones NEGATIVE (Negative); Urine Microscopic Reflex YN ORDER UMIC; Urine Nitrite NEGATIVE (Negative); Urine Protein NEGATIVE (Negative); Urine RBC <5 /HPF (None Seen); Urine Urobilinogen Normal (Normal); Urine WBC <5 /HPF (<5)
--- NOTE | 2024-01-16 18:04 | RAD REPORT ---
EXAM DESCRIPTION: CT - Abdomen Pelvis Wo Contrast - 01/16/2024 5:44 pm CLINICAL HISTORY: Abdominal pain COMPARISON: November 2023 TECHNIQUE: Computed axial tomography of the abdomen and pelvis was obtained. IV and oral contrast we re not requested. All CT scans are performed using dose optimization technique as appropriate and may include automated exposure control or mA/KV adjustment according to patient size. FINDINGS: The evaluation of solid organs, vessels and bowel is limited secondary to the lack of con trast administration. Liver, spleen, pancreas and adrenals grossly normal Bilateral renal cortical thinning it may be related to prior inflammation. No hydronephrosis. No obvi ous change in small left renal cyst since 2021 although it is not well seen on this unenhanced exam. Appendectomy. Ventral hernia repair. Mild prostatic enlargement. Small left inguinal hernia contains fat Mild anterior subluxation L4 on L5. Spondylosis lumbar spine. IMPRESSION: No acute abnormality is displayed.
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
--- NOTE | 2024-01-16 20:09 | P.HP ---
Certification for Inpatient Patient admitted to: Inpatient With expected LOS: >2 Midnights Practitioner: I am a practitioner with admitting privileges, knowledge of patient current condition, hospital course, and medical plan of care. Services: Services provided to patient in accordance with Admission requirements found in Title 42 Section 412.3 of the Code of Federal Regulations Patient History Date of Service: 01/16/24 Reason for admission: [place] History of Present Illness: 63 yrs old Male with past medical history of hypertension hyperlipidemia, CVA, CAD, acute kidney injury, history of cocaine abuse presents with complaints of abdominal pain. Patient states that he saw his PCP yesterday and had some routine blood work done and was told to come to the ER because of acute kidney injury. Denies any fever or chills. He started having abdominal discomfort and nausea and vomiting for a few days and has not been tolerating diet very well. Denies any chest pain or shortness of breath. Patient was assessed in the ER and was found to have acute kidney injury and was admitted for further management Allergies Benzodiazepines Allergy (Severe, Verified 12/13/23 22:46) Anaphylaxis diazepam [From Valium] Allergy (Severe, Verified 12/13/23 22:46) Anaphylaxis ketorolac tromethamine [From Toradol] Allergy (Severe, Verified 12/13/23 22:46) Anaphylaxis Penicillins Allergy (Severe, Verified 12/13/23 22:46) Anaphylaxis venom-honey bee [bee venom (honey bee)] Allergy (Severe, Verified 12/13/23 22:46) Anaphylaxis venom-wasp [Wasp Venom] Allergy (Severe, Verified 12/13/23 22:46) Anaphylaxis alprazolam [From Xanax] Allergy (Verified 12/13/23 22:46) Hives amphetamine aspartate [From Adderall] Allergy (Verified 12/13/23 22:46) Hives amphetamine sulfate [From Adderall] Allergy (Verified 12/13/23 22:46) Hives dextroamphetamine saccharate [From Adderall] Allergy (Verified 12/13/23 22:46) Hives dextroamphetamine sulfate [From Adderall] Allergy (Verified 12/13/23 22:46) Hives lorazepam [From Ativan] Allergy (Verified 12/13/23 22:46) Hives/Rash trazodone Allergy (Verified 12/13/23 22:46) Hives Home medications list reviewed: Yes Home Medications: Atorvastatin Calcium [Lipitor*] 40 mg PO DAILY 06/26/23 Lisinopril [Zestril] 20 mg PO DAILY 11/28/23 Meloxicam 15 mg PO DAILY 11/28/23 Albuterol Inhaler [Ventolin Inhaler*] 1 puff IH Q4HP PRN 12/14/23 Budesonide/Formoterol Fumarate [Breyna 80-4.5 Mcg Inhaler] 1 puff IH Q4HP PRN 12/14/23 Montelukast [Singulair*] 10 mg PO BEDTIME 12/14/23 Ondansetron HCl 4 mg PO Q4H PRN 12/14/23 Tramadol HCl/Acetaminophen [Tramadol-Acetaminophn 37.5-325] 1 tab PO Q6H PRN #10 tab 12/15/23 - Past Medical/Surgical History Diabetic: No Past Medical History: Reviewed- Non-Contributory -: HTN -: Hyperlipidemia -: CVA -: IN -: Cocaine Abuse -: Hx CAMDEN/ CKD II (Dr. Gibson/ Dr. Beasley) Past Surgical History: Reviewed- Non-Contributory -: hernia repair -: appendectomy -: hemorrhoidectomy -: hernia repair Psychosocial/ Personal History: Patient lives at home with his sister. - Family History Family History: Reviewed- Non-Contributory - Family History Mother -: Heart disease, Hypertension, Stroke, Cancer Father -: Heart disease, Hypertension, GI disease, Stroke, Kidney disease Sister -: Hypertension, Lung disease, Diabetes, Kidney disease Brother -: Hypertension - Social History Smoking Status: Current some day smoker Alcohol use: No CD- Drugs: No Caffeine use: No Review of Systems 10-point ROS is otherwise unremarkable Physical Examination - Vital Signs Temperature: 98.4 F Blood Pressure: 112/68 Pulse: 79 Respirations: 18 Pulse Ox (%): 94 - Physical Exam General: Alert, Oriented x3, Cooperative, Mild distress HEENT: Atraumatic, Normocephalic Neck: Supple, 2+ carotid pulse no bruit Respiratory: Clear to auscultation bilaterally, Normal air movement Cardiovascular: Normal pulses, Regular rate/rhythm, Normal S1 S2 Capillary refill: <2 Seconds Gastrointestinal: Soft and benign, W/out hepatosplenomegaly, No tenderness, No masses Musculoskeletal: No clubbing, No swelling Integumentary: No rashes, No breakdown Neurological: Normal speech, Normal strength at 5/5 x4 extr, Normal reflexes 2+, Normal affect Lymphatics: No axilla or inguinal lymphadenopathy - Studies Laboratory Data (last 24 hrs) 01/16/24 01/16/24 16:54 16:54 WBC 8.10 Hgb 12.4 L Hct 37.4 L Plt Count 372 Sodium 135 L Potassium 3.9 BUN 29 H Creatinine 2.14 H Glucose 101 Total Bilirubin 0.4 AST 21 ALT 23 Alkaline Phosphatase 137 H Lipase 148 H Assessment and Plan - Problems (Diagnosis) (1) CAMDEN (acute kidney injury) Current Visit: No Status: Acute Plan: Acute kidney injury Renal parameters monitored Probably prerenal Start on IV hydration Electrolytes monitor and replace accordingly CT abdomen pelvis pending Hyponatremia Possibly due to dehydration IV hydration and monitor closely Hypertension Antihypertensives titrated Continue home medications and titrate as needed Hyperlipidemia Continue statin CKD stage II Monitor renal parameters Electrolytes monitor and replace accordingly Nephrology consulted History of CVA history of CAD Continue home medications and titrate as needed History of cocaine abuse Will get a urine drug screen GI/DVT prophylaxis Advanced directive full code Discharge Plan: Home Plan to discharge in: 48 Hours - Advance Directives Does patient have a Living Will: No Does patient have a Durable POA for Healthcare: No - Code Status/Comfort Care Code Status: Full Code Time Spent Managing Pts Care (In Minutes): 48
[2024-01-16] MEDS ORDERED: ACETAMINOPHEN 325 MG TABLET PO PRN (20:10)
[2024-01-16] MEDS ORDERED: ONDANSETRON 4 MG/2 ML VIAL IV PRN (20:10)
[2024-01-16] MEDS: NA CHLORIDE 0.9% 1,000 ML IV SCH (21:00)
[2024-01-16] MEDS ORDERED: BUDESONIDE IH PRN (21:29)
[2024-01-16] MEDS ORDERED: TRAMADOL 37.5mg/APAP 325mg PER TAB PO PRN (21:29)
[2024-01-16] MEDS ORDERED: [UNRECOGNIZED DRUG - OTHER] IH PRN (21:29)
[2024-01-16] MEDS ORDERED: FORMOTEROL FUMARATE IH PRN (21:29)
[2024-01-16] MEDS ORDERED: ALBUTEROL INHALER 200 PUFF/6.7 GM IH PRN (21:29)
[2024-01-16] MEDS: HYDROCODONE/APAP 10/325 TAB PO PRN (23:18)
[2024-01-16 23:40] VITALS: BMI 34.7
[2024-01-17 03:33] LABS: Absolute Eosinophils 0.5 K/uL (0-0.5); Absolute Lymphocytes (CBC) 1.4 K/uL (0.7-4.9); Absolute Monocytes 0.7 K/uL (0.1-1.3); Absolute Neutrophil 4.9 K/uL (1.8-8.0); Basophils % 0.4 % (0-1.3); Eosinophils % 7.2 % (0-4.4); Hematocrit 35.5 % (39.6-49.0); Hemoglobin 12.2 g/dL (13.6-17.9); Lymphocytes % 18.7 % (15.3-44.8); MCH 31.5 pg (27.0-35.0); MCHC 34.3 g/dL (32.0-36.0); MCV 91.6 fL (80-100); MPV 7.2 fL (7.6-11.3); Monocytes % 8.9 % (3.3-12.3); Neutrophils % 64.8 % (41.7-73.7); Nucleated Red Blood Cells % 0.2 % (0-0); Platelets 330 thou/uL (152-406); RBC Red Blood Cell Count 3.87 M/uL (4.33-5.43); Red Cell Distribution Width 14.3 % (12.1-15.2)
[2024-01-17 03:52] LABS: Albumin 3.1 g/dL (3.4-5.0); Anion Gap 4.7 mEq/L (5.0-15.0); Bilirubin Total 0.2 mg/dL (0.2-1.0); Globulin 3.2 g/dL (2.3-3.5); Magnesium 2.5 mg/dL (1.6-2.4); Phosphorus 2.4 mg/dL (2.5-4.9); Potassium 4.7 mEq/L (3.5-5.1); Protein, Total 6.3 g/dL (6.4-8.2)
[2024-01-17] MEDS: POTASS/SODIUM PHOSPHATE 1 PKT POWD.PACK PO SCH ×2 (06:00→11:08)
[2024-01-17] MEDS ORDERED: PNEUMOCOCCAL VACCINE 0.5 ML IMVAC ONE (08:00)
[2024-01-17] MEDS: ATORVASTATIN 20 MG TAB PO SCH (08:54)
[2024-01-17] MEDS: ENOXAPARIN 40 MG/0.4 ML SQ SCH (08:54)
[2024-01-17] MEDS: MORPHINE 2 MG/ML SYR IV PRN (09:06)
--- NOTE | 2024-01-17 09:29 | P.PN ---
Subjective Date of Service: 01/17/24 Chief Complaint: CAMDEN 63 yrs old Male with past medical history of hypertension hyperlipidemia, CVA, CAD, acute kidney injury, history of cocaine abuse presents with complaints of abdominal pain. Patient states that he saw his PCP yesterday and had some routine blood work done and was told to come to the ER because of acute kidney injury. Denies any fever or chills. He started having abdominal discomfort and nausea and vomiting for a few days and has not been tolerating diet very well. Denies any chest pain or shortness of breath. - Physical Exam General: Alert, Oriented x3, Cooperative, Mild distress HEENT: Atraumatic, Normocephalic Neck: Supple, 2+ carotid pulse no bruit Respiratory: Clear to auscultation bilaterally, Normal air movement Cardiovascular: Normal pulses, Regular rate/rhythm, Normal S1 S2 Capillary refill: <2 Seconds Gastrointestinal: Soft and benign, W/out hepatosplenomegaly, No tenderness, No masses Musculoskeletal: No clubbing, No swelling Integumentary: No rashes, No breakdown Neurological: Normal speech, Normal strength at 5/5 x4 extr, Normal reflexes 2+, Normal affect Lymphatics: No axilla or inguinal lymphadenopathy <Shania Martines - Last Filed: 01/17/24 09:25> Date of Service: 01/17/24 <Augustus Esparza - Last Filed: 01/17/24 17:03> Review of Systems PER HPI <Shania Martines - Last Filed: 01/17/24 09:25> Physical Examination - Vital Signs Temperature: 97.8 F Blood Pressure: 122/72 Pulse: 54 Respirations: 18 Pulse Ox (%): 96 - Studies Laboratory Data (last 24 hrs) 01/16/24 01/16/24 16:54 16:54 WBC 8.10 Hgb 12.4 L Hct 37.4 L Plt Count 372 Sodium 135 L Potassium 3.9 BUN 29 H Creatinine 2.14 H Glucose 101 Total Bilirubin 0.4 AST 21 ALT 23 Alkaline Phosphatase 137 H Lipase 148 H <Shania Martines - Last Filed: 01/17/24 09:25> - Studies Laboratory Data (last 24 hrs) 01/16/24 01/16/24 16:54 16:54 WBC 8.10 Hgb 12.4 L Hct 37.4 L Plt Count 372 Sodium 135 L Potassium 3.9 BUN 29 H Creatinine 2.14 H Glucose 101 Total Bilirubin 0.4 AST 21 ALT 23 Alkaline Phosphatase 137 H Lipase 148 H <Augustus Esparza - Last Filed: 01/17/24 17:03> Assessment And Plan - Plan Assessment and Plan Acute kidney injury improving Renal parameters monitored Probably prerenal Start on IV hydration Electrolytes monitor and replace accordingly CT abdomen pelvis pending Hyponatremia Possibly due to dehydration IV hydration and monitor closely Hypertension Antihypertensives titrated Continue home medications and titrate as needed Hyperlipidemia Continue statin CKD stage II Monitor renal parameters Electrolytes monitor and replace accordingly Nephrology consulted History of CVA history of CAD Continue home medications and titrate as needed History of cocaine abuse Will get a urine drug screen GI/DVT prophylaxis Advanced directive full code Discharge Plan: Home Plan to discharge in: 48 Hours Discharge Plan: Home - Code Status/Comfort Care Code Status: Full Code Critical Care: No Time Spent Managing PTS Care (In Minutes): 35 <Shania Martines - Last Filed: 01/17/24 09:25> Date of Service: 01/17/24 Patient chart was reviewed and patient was seen and examined. ALONDRA history and physical reviewed as well. Progress note has been reviewed. Agree with the assessment and plan. Patient presented with severe dehydration and acute renal insufficiency. Most of the MDM was done by myself and plan of care was discussed with ALONDRA as well as the patient. Patient is doing much better. Plan to discharge in the next 24 to 48 hours.. <Augustus Esparza - Last Filed: 01/17/24 17:03>
--- NOTE | 2024-01-17 17:25 | P.CNS ---
Date of Consult: 01/17/24 Reason for Consult: Renal insufficiency Requesting Physician: Chanel Luna Chief Complaint: CAMDEN History of Present Illness: Pt is a 63-year-old male with some unspecified cardiovascular history, essential hypertension on medication including mod dose ACEi (which he reports has been titrated from 2.5 mg to 10 mg and then 20 mg although on last admission, I advised dose lowering), prior history of polysubstance abuse per reports who reported yesterday to the emergency department as he relates his PCP told him to go in for abnormal labs. Cr level was back up > 2 mg/dl but there were no other critical findings. Pt feels ok currently and denies current abd pain, CP, dyspnea or N/V/D. Renal function improving with IVF hydration Allergies Benzodiazepines Allergy (Severe, Verified 12/13/23 22:46) Anaphylaxis diazepam [From Valium] Allergy (Severe, Verified 12/13/23 22:46) Anaphylaxis ketorolac tromethamine [From Toradol] Allergy (Severe, Verified 12/13/23 22:46) Anaphylaxis Penicillins Allergy (Severe, Verified 12/13/23 22:46) Anaphylaxis venom-honey bee [bee venom (honey bee)] Allergy (Severe, Verified 12/13/23 22:46) Anaphylaxis venom-wasp [Wasp Venom] Allergy (Severe, Verified 12/13/23 22:46) Anaphylaxis alprazolam [From Xanax] Allergy (Verified 12/13/23 22:46) Hives amphetamine aspartate [From Adderall] Allergy (Verified 12/13/23 22:46) Hives amphetamine sulfate [From Adderall] Allergy (Verified 12/13/23 22:46) Hives dextroamphetamine saccharate [From Adderall] Allergy (Verified 12/13/23 22:46) Hives dextroamphetamine sulfate [From Adderall] Allergy (Verified 12/13/23 22:46) Hives lorazepam [From Ativan] Allergy (Verified 12/13/23 22:46) Hives/Rash trazodone Allergy (Verified 12/13/23 22:46) Hives Home Medications: Atorvastatin Calcium [Lipitor*] 40 mg PO DAILY 06/26/23 Lisinopril [Zestril] 20 mg PO DAILY 11/28/23 Meloxicam 15 mg PO DAILY 11/28/23 Budesonide/Formoterol Fumarate [Breyna 80-4.5 Mcg Inhaler] 1 puff IH Q4HP PRN 12/14/23 Montelukast [Singulair*] 10 mg PO DAILY 12/14/23 Ondansetron HCl 4 mg PO Q4H PRN 12/14/23 - Past Medical/Surgical History Diabetic: No -: HTN -: Hyperlipidemia -: CVA -: [place] -: Cocaine Abuse 15 years ago -: Hx CAMDEN/ CKD II (Dr. Gibson/ Dr. Beasley) -: hernia repair -: appendectomy -: hemorrhoidectomy -: hernia repair Psychosocial/ Personal History: Patient lives at home with his sister. - Family History Mother Medical History: Heart disease, Hypertension, Stroke, Cancer Notes: Breast Father Medical History: Heart disease, Hypertension, GI disease, Stroke, Kidney disease Sister Medical History: Hypertension, Lung disease, Diabetes, Kidney disease Brother Medical History: Hypertension - Social History Smoking Status: Current every day smoker Alcohol use: No CD- Drugs: No Caffeine use: Yes Place of Residence: Home Review of Systems General: Weakness Eyes: Unremarkable ENT: Unremarkable Respiratory: Unremarkable Cardiovascular: Light Headedness Gastrointestinal: Unremarkable Genitourinary: Unremarkable Musculoskeletal: Unremarkable Integumentary: Unremarkable Neurological: Unremarkable Lymphatics: Unremarkable Physical Examination Temp Pulse Resp BP Pulse Ox 97.9 F 73 18 159/82 H 94 01/17/24 16:00 01/17/24 16:00 01/17/24 16:00 01/17/24 16:00 01/17/24 16:00 General: Alert, In no apparent distress, Oriented x3 HEENT: Atraumatic, Normocephalic, Mucous membr. moist/pink Neck: Supple Respiratory: Clear to auscultation bilaterally, Normal air movement Cardiovascular: No edema, Regular rate/rhythm, Normal S1 S2 Gastrointestinal: Soft and benign, Non-distended, No tenderness Musculoskeletal: No swelling, No contractures Integumentary: No rashes, No tenderness/swelling Neurological: Normal speech, Normal tone, Normal affect Conclusions/Impression: A/P) 1. Stage I CAMDEN episode 2nd to recurrent functional CAMDEN in the setting of likely pre-renal azotemia, relative hypotension, concurrent mod dose ACEi use and NSAIDs use (pt acknowledges taking Mobic listed among home meds). 2. Cr level quickly downward trends with IVF hydration. Pt with prior ARF/CAMDEN episodes on review in the EMR, and seen recently in November. He has not followed up in clinic 3. Cont IVF, lower rate. BP soft on admission but then trends up on IVF. If ACEi resumed, recommend lower dose and holding parameters or substitute with CCB like Amlodipine at lower dose 2.5-5 mg qd. 4 UA was not too remarkable 5. Hypocalcemia 2nd to hypoalbuminemia, other -can check Vit D level as OP Ankush Beasley MD, [facility]
[2024-01-17] MEDS: NA CHLORIDE 0.9% 1,000 ML IV SCH (17:43)
[2024-01-17] MEDS: MONTELUKAST 10 MG TAB PO SCH (21:12)
[2024-01-18 05:49] LABS: Absolute Basophils 0.1 K/uL (0-0.5); Absolute Eosinophils 0.5 K/uL (0-0.5); Absolute Lymphocytes (CBC) 1.4 K/uL (0.7-4.9); Absolute Monocytes 0.7 K/uL (0.1-1.3); Absolute Neutrophil 4.1 K/uL (1.8-8.0); Basophils % 1.3 % (0-1.3); Eosinophils % 7.1 % (0-4.4); Hematocrit 36.9 % (39.6-49.0); Hemoglobin 12.3 g/dL (13.6-17.9); Lymphocytes % 21.1 % (15.3-44.8); MCH 30.8 pg (27.0-35.0); MCHC 33.4 g/dL (32.0-36.0); MCV 92.4 fL (80-100); MPV 7.1 fL (7.6-11.3); Monocytes % 9.8 % (3.3-12.3); Neutrophils % 60.7 % (41.7-73.7); Platelets 332 thou/uL (152-406); RBC Red Blood Cell Count 3.99 M/uL (4.33-5.43); Red Cell Distribution Width 14.7 % (12.1-15.2)
[2024-01-18 06:10] LABS: Albumin/Globulin Ratio 0.9 (1.1-1.8); Anion Gap 6.6 mEq/L (5.0-15.0); Bilirubin Total 0.3 mg/dL (0.2-1.0); Globulin 3.4 g/dL (2.3-3.5); Magnesium 2.1 mg/dL (1.6-2.4); Potassium 4.6 mEq/L (3.5-5.1); Protein, Total 6.4 g/dL (6.4-8.2)
[2024-01-18 07:07] LABS: Phosphorus 2.1 mg/dL (2.5-4.9)
--- NOTE | 2024-01-18 07:46 | P.PN ---
Subjective Date of Service: 01/18/24 Chief Complaint: CAMDEN 63 yrs old Male with past medical history of hypertension hyperlipidemia, CVA, CAD, acute kidney injury, history of cocaine abuse presents with complaints of abdominal pain. Patient states that he saw his PCP yesterday and had some routine blood work done and was told to come to the ER because of acute kidney injury. Denies any fever or chills. He started having abdominal discomfort and nausea and vomiting for a few days and has not been tolerating diet very well. Denies any chest pain or shortness of breath. - Physical Exam General: Alert, Oriented x3, Cooperative, Mild distress HEENT: Atraumatic, Normocephalic Neck: Supple, 2+ carotid pulse no bruit Respiratory: Clear to auscultation bilaterally, Normal air movement Cardiovascular: Normal pulses, Regular rate/rhythm, Normal S1 S2 Capillary refill: <2 Seconds Gastrointestinal: Soft and benign, W/out hepatosplenomegaly, No tenderness, No masses Musculoskeletal: No clubbing, No swelling Integumentary: No rashes, No breakdown Neurological: Normal speech, Normal strength at 5/5 x4 extr, Normal reflexes 2+, Normal affect Lymphatics: No axilla or inguinal lymphadenopathy Review of Systems per HPI Physical Examination - Vital Signs Temperature: 97.8 F Blood Pressure: 175/89 Pulse: 57 Respirations: 18 Pulse Ox (%): 96 Assessment And Plan - Plan Assessment and Plan Acute kidney injury improving Renal parameters monitored Probably prerenal Start on IV hydration Electrolytes monitor and replace accordingly CT abdomen pelvis pending Hyponatremia acute Possibly due to dehydration IV hydration and monitor closely Hypocalcemia acute Replace calcium Hypertension Antihypertensives titrated Continue home medications and titrate as needed Hyperlipidemia Continue statin CKD stage II Monitor renal parameters Electrolytes monitor and replace accordingly Nephrology consulted History of CVA history of CAD Continue home medications and titrate as needed History of cocaine abuse Will get a urine drug screen GI/DVT prophylaxis Advanced directive full code Discharge Plan: Home Plan to discharge in: 48 Hours Discharge Plan: Home - Code Status/Comfort Care Code Status: Full Code Critical Care: No Time Spent Managing PTS Care (In Minutes): 35
--- NOTE | 2024-01-18 07:49 | P.DS ---
Admission Date: 01/16/24 Discharge Date: 01/18/24 Reason for Admission: CAMDEN Brief History of Present Illness: 63 yrs old Male with past medical history of hypertension hyperlipidemia, CVA, CAD, acute kidney injury, history of cocaine abuse presents with complaints of abdominal pain. Patient states that he saw his PCP yesterday and had some routine blood work done and was told to come to the ER because of acute kidney injury. Denies any fever or chills. He started having abdominal discomfort and nausea and vomiting for a few days and has not been tolerating diet very well. Denies any chest pain or shortness of breath.Patient was assessed in the ER and was found to have acute kidney injury and was admitted for further management - Physical Exam General: Alert, Oriented x3, Cooperative, Mild distress HEENT: Atraumatic, Normocephalic Neck: Supple, 2+ carotid pulse no bruit Respiratory: Clear to auscultation bilaterally, Normal air movement Cardiovascular: Normal pulses, Regular rate/rhythm, Normal S1 S2 Capillary refill: <2 Seconds Gastrointestinal: Soft and benign, W/out hepatosplenomegaly, No tenderness, No masses Musculoskeletal: No clubbing, No swelling Integumentary: No rashes, No breakdown Neurological: Normal speech, Normal strength at 5/5 x4 extr, Normal reflexes 2+, Normal affect Lymphatics: No axilla or inguinal lymphadenopathy Hospital Course: 63 year-old male patient presented with with past medical history of hypertension hyperlipidemia, CVA, CAD, acute kidney injury, history of cocaine abuse presents with complaints of abdominal pain. Was noted to have acute kidney injury. Condition improved with IV fluids, as needed analgesics Patient tolerating diet, stable for discharge to home with follow-up appointment with primary care physician. Follow-up with nephrology after discharge PROBLEM: Acute kidney injury secondary to dehydration treated with IV fluid-improved with IV hydration Abdominal pain with nausea vomiting treated with as needed antiemetics, analgesics.improved with PRN meds History of substance/cocaine abuse -educated on cessation Continue home medicines as previously prescribed GOAL: Clear understanding of disease process INSTRUCTIONS: Physician Discharge Instructions: -Follow-up with PCP in 1 to 2 weeks -Please call Dr. Esparza at [phone] if any questions regarding hospital stay -Please call nursing station at [phone] if any nursing or medication questions -Return to the emergency room if symptoms worsen Diet: ADA, low sodium Activity: Fall precautions <Shania Martines - Last Filed: 01/18/24 15:02> Admission Date: 01/16/24 Discharge Date: 01/18/24 Hospital Course: Patient's renal function has improved. At this time, patient is doing much better and patient is stable for discharge home. <EsparzaDemetrius bowenscarine Winter - Last Filed: 01/19/24 01:38> Disposition: ROUTINE DISCHARGE Discharge Condition: FAIR Vital Signs/Physical Exam: Temp Pulse Resp BP Pulse Ox 97.8 F 57 18 175/89 H 96 01/18/24 07:45 01/18/24 07:45 01/18/24 07:45 01/18/24 07:45 01/18/24 07:45 Laboratory Data at Discharge: WBC 6.70 thou/uL (4.3-10.9) 01/18/24 05:25 Hgb 12.3 g/dL (13.6-17.9) L 01/18/24 05:25 Hct 36.9 % (39.6-49.0) L 01/18/24 05:25 Plt Count 332 thou/uL (152-406) 01/18/24 05:25 Sodium 139 mEq/L (136-145) 01/18/24 05:25 Potassium 4.6 mEq/L (3.5-5.1) 01/18/24 05:25 BUN 15 mg/dL (7-18) 01/18/24 05:25 Creatinine 1.13 mg/dL (0.70-1.30) 01/18/24 05:25 Glucose 104 mg/dL (74-106) 01/18/24 05:25 Phosphorus 2.1 mg/dL (2.5-4.9) L 01/18/24 05:25 Magnesium 2.1 mg/dL (1.6-2.4) 01/18/24 05:25 Total Bilirubin 0.3 mg/dL (0.2-1.0) 01/18/24 05:25 AST 16 U/L (15-37) 01/18/24 05:25 ALT 17 U/L (16-61) 01/18/24 05:25 Alkaline Phosphatase 115 U/L (45-117) 01/18/24 05:25 Lipase 148 U/L (13-75) H 01/16/24 16:54 <Shania Martines - Last Filed: 01/18/24 15:02> Vital Signs/Physical Exam: Temp Pulse Resp BP Pulse Ox 97.4 F 54 16 169/85 H 97 01/18/24 08:00 01/18/24 08:00 01/18/24 08:00 01/18/24 08:00 01/18/24 08:00 General: Alert, In no apparent distress, Oriented x3 Laboratory Data at Discharge: WBC 6.70 thou/uL (4.3-10.9) 01/18/24 05:25 Hgb 12.3 g/dL (13.6-17.9) L 01/18/24 05:25 Hct 36.9 % (39.6-49.0) L 01/18/24 05:25 Plt Count 332 thou/uL (152-406) 01/18/24 05:25 Sodium 139 mEq/L (136-145) 01/18/24 05:25 Potassium 4.6 mEq/L (3.5-5.1) 01/18/24 05:25 BUN 15 mg/dL (7-18) 01/18/24 05:25 Creatinine 1.13 mg/dL (0.70-1.30) 01/18/24 05:25 Glucose 104 mg/dL (74-106) 01/18/24 05:25 Phosphorus 2.1 mg/dL (2.5-4.9) L 01/18/24 05:25 Magnesium 2.1 mg/dL (1.6-2.4) 01/18/24 05:25 Total Bilirubin 0.3 mg/dL (0.2-1.0) 01/18/24 05:25 AST 16 U/L (15-37) 01/18/24 05:25 ALT 17 U/L (16-61) 01/18/24 05:25 Alkaline Phosphatase 115 U/L (45-117) 01/18/24 05:25 Lipase 148 U/L (13-75) H 01/16/24 16:54 <Augustus Esparza - Last Filed: 01/19/24 01:38> Time spent managing pt's care (in minutes): 55 <Shania Martines - Last Filed: 01/18/24 15:02> <EsparzaDemetrius bowenscarine Max - Last Filed: 01/19/24 01:38> Home Medications: Meloxicam 15 mg PO DAILY 11/28/23 Budesonide/Formoterol Fumarate [Breyna 80-4.5 Mcg Inhaler] 1 puff IH Q4HP PRN 12/14/23 Montelukast [Singulair*] 10 mg PO DAILY 12/14/23 Albuterol Inhaler [Ventolin Inhaler*] 1 puff IH Q4HP PRN 01/18/24 Atorvastatin Calcium [Lipitor*] 40 mg PO DAILY #0 tab 01/18/24 Budesonide/Formoterol Fumarate [Breyna 80-4.5 Mcg Inhaler] 1 puff IH Q4HP PRN 01/18/24 Hydrocodone 10/APAP 325 [[place] 10/325] 1 tab PO Q6H PRN #30 tab 01/18/24 Lisinopril [Zestril] 20 mg PO DAILY 30 Days #30 tab 01/18/24 Montelukast [Singulair*] 10 mg PO BEDTIME tab 01/18/24 Ondansetron HCl 4 mg PO Q4H PRN 10 Days #15 tab 01/18/24 New Medications: Hydrocodone 10/APAP 325 [[place] 10/325] 1 tab PO Q6H PRN #30 tab PRN Reason: Pain Ondansetron HCl 4 mg PO Q4H PRN 10 Days #15 tab PRN Reason: Nausea / Vomiting Lisinopril [Zestril] 20 mg PO DAILY 30 Days #30 tab Physician Discharge Instructions: 63 year-old male patient presented with with past medical history of hypertension hyperlipidemia, CVA, CAD, acute kidney injury, history of cocaine abuse presents with complaints of abdominal pain. Was noted to have acute kidney injury. Condition improved with IV fluids, as needed analgesics Patient tolerating diet, stable for discharge to home with follow-up appointment with primary care physician. Follow-up with nephrology after discharge PROBLEM: Acute kidney injury secondary to dehydration treated with IV fluid Abdominal pain with nausea vomiting treated with as needed antiemetics, analgesics. History of substance/cocaine abuse educated on cessation Continue home medicines as previously prescribed GOAL: Clear understanding of disease process INSTRUCTIONS: Physician Discharge Instructions: -Follow-up with PCP in 1 to 2 weeks -Please call Dr. Esparza at [phone] if any questions regarding hospital stay -Please call nursing station at [phone] if any nursing or medication questions -Return to the emergency room if symptoms worsen Diet: ADA, low sodium Activity: Fall precautions Followup: Rosana Red MD [Primary Care Provider] -
[2024-01-18] MEDS: POTASSIUM PHOS IN 0.9 % NACL 15 MMOL/250 ML BAG IV ONE (08:09)
[2024-01-18 08:50] VITALS: BP 169/85; TEMP 97.4
[2024-01-18 09:27] VITALS: O2SAT 97
== END 2024-01-18 13:41 | disposition home or self-care (01) | DRG 683 ==
LOC: ER 16:29 → ERHOLD 20:10 → 4TH 21:04
PROVIDERS: ADMIT Family Medicine; ATTEND Hospitalist
DX: N17.9 Acute kidney failure, unspecified (principal); E87.1 Hypo-osmolality and hyponatremia; I12.9 Hypertensive chronic kidney disease with stage 1 through stage 4 chronic kidney disease, or unspecified chronic kidney disease; N18.2 Chronic kidney disease, stage 2 (mild); E83.51 Hypocalcemia; E88.09 Other disorders of plasma-protein metabolism, not elsewhere classified; E86.0 Dehydration; I95.9 Hypotension, unspecified; E78.00 Pure hypercholesterolemia, unspecified; I25.2 Old myocardial infarction; I25.10 Atherosclerotic heart disease of native coronary artery without angina pectoris; F17.200 Nicotine dependence, unspecified, uncomplicated; Z88.1 Allergy status to other antibiotic agents; Z88.0 Allergy status to penicillin; Z88.8 Allergy status to other drugs, medicaments and biological substances; Z91.09 Other allergy status, other than to drugs and biological substances; Z90.49 Acquired absence of other specified parts of digestive tract; Z86.73 Personal history of transient ischemic attack (TIA), and cerebral infarction without residual deficits; Z79.899 Other long term (current) drug therapy
CPT/HCPCS: 36415; 74176; 80053; 81001; 83690; 83735; 84100; 85025; 94760; 96361; 96374; 96375; 99285; J1650; J2270; J2405; J7030

== ENCOUNTER 2024-02-10 14:01 | Inpatient (IN) | payer MEDICARE ==
--- OUTSIDE RECORDS SUMMARY | 2024-02-10 14:13 | XMS REPORT | Continuity of Care Document ---
Author Name Unknown Address [address] [facility]. [address] [place] [address] [facility] thconnect Address [address] [facility] [address] [place] [address] Care Team Providers Care Nuclear Medicine Physician Name Role Phone Mahad Ross Primary Care Physician [phone] Rosana Red Attending Clinician Unavail able Mahad Ross Attending Clinician Unavailable [place]_B Attending Clinician Unavailable ZANE LIU Attending Clinician Unavailable ZANE LIU Attending Clinician Unavailable CHRISTEN OBANDO Attending Clinician Unavailable Christen Obando DO Attending Clinician [phone] GERTRUDE CHINCHILLA Attending Clinician Unavailab Gertrude Contreras DO Attending Clinician [phone] Cobb_T Attending Clinician Unavailable Simón Rollins RN Attending Clinician Unavail able CALLIE CUELLAR Attending Clinician Unavailable Callie Cuellar DO Attending Clinician [phone] Deshazo_T Attending Clinician Unavailable Doctor Unassigned, [place] Attending Clinician U navailable NEELA ALBARADO Attending Clinician Unavail able NEELA ALBARADO Attending Clinician Unavail able VIKASH GRIMALDO Attending Clinician Unavailable Silva Szymanski MD Attending Clinician [phone] Vikash Grimaldo MD Attending Clinician [phone] OW_T Attending Clinician Unavailable CURRTanisha_S Attending Clinician Unavailable Love Campbell Attending Clinician [phone] [place]_B Admitting Clinician Unavailable CHRISTEN OBANDO Admitting Clinician Unavailable GERTRUDE CHINCHILLA Admitting Clinician Unavailab elma Murdock_T Admitting Clinician Unavailable CALLIE CUELLAR Admitting Clinician Unavailable Callie Cuellar DO Admitting Clinician [phone] Deshazo_T Admitting Clinician Unavailable VIKASH GRIMALDO Admitting Clinician Unavailable Vikash Grimaldo MD Admitting Clinician [phone] MARIAH_Will Admitting Clinician Unavailable PARAG_S Admitting Clinician Unavailable Payers Payer Name Policy Type Policy Number Effective Date Expirati on Date Source [employer] HAWTHORN CENTERO 111 [id number] 2023 00:00:00 [facility] (MEDICARE REPLACEMENT HMO) [id number] 2021 00:00:00 [facility] MEDIC[facility] ADVANTAGE PLAN [id number] 2020 00:00:00 [place] [id number] 2021 00:00:00 [place] [id number] 2021 00:00:00 [place] [id number] 2021 00:00:00 [place] [id number] 2021 00:00:00 [facility] Problems Condition Name Condition Details Condition Category Status Onset Date Resolution Date Last Treatment Date Treating Clinician Comments Source Chest pain, unspecifie d type Chest pain, unspecifie d type Disease Active 05-23 00:00: 00 [facility] Other hyperlipid emia Other hyperlipid emia Disease Active 05-23 00:00: 00 [facility] Drug abuse Drug abuse Disease Active 05-23 00:00: 00 [facility] Nonobstruc tive atheroscle rosis of coronary artery Nonobstruc tive atheroscle rosis of coronary artery Disease Active 05-23 00:00: 00 [facility] CAMDEN (acute kidney injury) CAMDEN (acute kidney injury) Disease Active 2020-09 00:00: 00 [facility] Esophageal spasm Esophageal spasm Disease Active 01-26 00:00: 00 [facility] A-fib A-fib Disease Active 01-20 00:00: 00 [facility] Atrial fibrillati on with RVR Atrial fibrillati on with RVR Disease Active 01-19 00:00: 00 [facility] Shortness of breath Shortness of breath Disease Active 01-19 00:00: 00 [facility] NSTEMI (non-ST elevated myocardial infarction ) NSTEMI (non-ST elevated myocardial infarction ) Disease Active 01-19 00:00: 00 [facility] Tobacco abuse Tobacco abuse Disease Active 01-19 00:00: 00 [facility] Family history of early CAD Family history of early CAD Disease Active 01-19 00:00: 00 [facility] Inguinal hernia Inguinal hernia Disease Active 2016-09 00:00: 00 [facility] Status epilepticu s Status epilepticu s Disease Active 01-22 00:00: 00 [facility] Seizure Seizure Disease Active 01-22 00:00: 00 [facility] [id number] COPD, mild Problem Com mon [facility] [id number] Leukocytos is, unspecifie d type Problem [facility] [id number] Developmen shruthi venous anomaly, cerebral Problem [facility] [id number] Diverticul osis large intestine w/o perforatio n or abscess w/bleeding Problem Common [facility] [id number] Atheroscle rosis of abdominal aorta Problem Common [facility] Cerebral infarction Cerebral infarction , unspecifie d Problem Common [facility] [id number] Chronic kidney disease, stage 3b Problem Common [facility] [id number] Osteoarthr itis of lumbar spine, unspecifie d spinal osteoarthr itis complicati on status Problem Common [facility] [id number] KATHERIN (obstructi ve sleep apnea) Problem Common [facility] [id number] Left lower lobe pulmonary nodule Problem Common [facility] [id number] Bipolar disorder, mixed Problem Common [facility] [id number] Other schizophre nicho Problem [facility] [id number] Altered mental status, unspecifie d altered mental status type Problem Common [facility] Stroke Stroke Problem [facility] [id number] Incontinen ce of feces, unspecifie d fecal incontinen ce type Problem [facility] Body mass index 30.00 to 34.99 Body mass index [BMI] 31.0-31.9, adult Problem [facility] Chronic kidney disease stage 3A (disorder) Chronic kidney disease, stage 3a Problem [facility] [id number] Primary insomnia Problem [facility] [id number] TIA (transient ischemic attack) Problem [facility] [id number] Aphasia Problem [facility] [id number] BMI 31.0-31.9, adult Problem [facility] 287113190 Other obesity due to excess calories Problem Common [facility] 395339113 Mixed hyperlipid emia Problem [facility] [id number] Paroxysmal atrial fibrillati on Problem Common [facility] 16628443 Vitamin D deficiency Problem [facility] [id number] Primary osteoarthr itis of left knee Problem Common [facility] 48538298 Other chronic pain Problem [facility] [id number] Arthritis of knee, left Problem [facility] [id number] Essential hypertensi on Problem [facility] [id number] Tobacco use disorder, continuous Problem [facility] Allergic rhinitis Non-season al allergic rhinitis, unspecifie d trigger Problem [facility] [id number] Primary osteoarthr itis of left shoulder Problem [facility] [id number] Incomplete tear of left rotator cuff, unspecifie d whether traumatic Problem [facility] [id number] Persistent migraine aura with cerebral infarction , intractabl e, with status migrainosu s Problem [facility] [id number] 9104 Narcolepsy due to underlying condition without cataplexy Problem [facility] Primary osteoarthr itis Primary osteoarthr itis involving multiple joints Problem [facility] Allergies, Adverse Reactions, Alerts Allergy Name Allergy Type Status Severity Reaction(s) Onset Date Inactive Date Treating Clinician Comments Source LORAZEPA M DRUG INGREDI Active Anaphylaxis 05-23 00:00: 00 [facility] Lorazepa m Propensi ty to adverse reaction s Active Anaphylaxis 05-23 00:00: 00 Pt has had multiple administr ations of ativan IV as well as EM without any negative reactions . [facility] BENADRYL ALLERGY DECONGES TANT DRUG Active High Swelling 2018-09 00:00: 00 [facility] Benadryl Allergy Deconges tant Propensi ty to adverse reaction s Active Swelling 2018-09 00:00: 00 [facility] DIAZEPAM DRUG INGREDI Active High Anaphylaxis 2016-09 00:00: 00 [facility] Diazepam Propensi ty to adverse reaction s to drug Active Anaphylaxis 2016-09 00:00: 00 Patient states it'll stop his heart within seconds of taking it. [facility] PENICILL INS Drug Class Active Anaphylaxis 05-13 00:00: 00 [facility] Penicill ins Propensi ty to adverse reaction s Active Anaphylaxis 05-13 00:00: 00 [facility] Penicill ins Propensi ty to adverse reaction s Active Anaphylaxis 05-13 00:00: 00 [facility] BEE STING / VENOM DRUG INGREDI Active Anaphylaxis 01-22 00:00: 00 [facility] Bee Sting / Venom Propensi ty to adverse reaction s to drug Active Anaphylaxis 01-22 00:00: 00 [facility] VENOM-WA SP DRUG INGREDI Active Anaphylaxis 01-22 00:00: 00 [facility] Venom-Wa sp Propensi ty to adverse reaction s Active Anaphylaxis 01-22 00:00: 00 [facility] gabapent in gabapent in Active nausea and vomiting [facility] tramadol tramadol Active hallucinatio ns [facility] diazepam diazepam Active Stops heart C ommon [facility] penicill in G penicill in G Active swells throat shut [facility] amitript yline amitript yline Active aggression [facility] alprazol am alprazol am Active Unknown [facility] Social History Social Habit Start Date Stop Date Quantity Comments Source History of Tobacco Use Current Smoker [facility] Sex Assigned At [facility] Exposure to SARS-CoV-2 (event) 2023-01-18 00:00:00 2023-01-28 13:20:00 Not sure [facility] Alcohol intake 2022-10-21 00:00:00 2022-10-21 00:00:00 Current non-drinker of alcohol (finding) [facility] Cigarette pack-years 2021-09-27 00:00:00 2021-09-27 00:00:00 [facility] Tobacco use and exposure 2021-09-27 00:00:00 2021-09-27 00:00:00 Smokeless tobacco non-user [facility] Education 2021-09-27 00:00:00 2021-09-27 00:00:00 8 [facility] Cigarettes smoked current (pack per day) - Reported 2021-09-27 00:00:00 2021-09-27 00:00:00 [facility] Smoking Status Start Date Stop Date Source Current Smoker 2024-01-30 00:00:00 [facility] Medications Ordered Medication Name Filled Medication Name Start Date Stop Date Current Medication? Ordering Clinician Indication Dosage Frequency Signature (SIG) Comments Components Source BUPivacaine HCl BUPivacaine HCl 01-28 00:00: 00 No 4mL [facility] Kenalog (Triamcinol one) Kenalog (Triamcinol one) 01-28 00:00: 00 No 1mL [facility] Cyclobenzap rine HCl 10 MG Cyclobenzap rine HCl 10 MG 01-14 00:00: 00 No 1{table t_at_be dtime_a s_neede d} TID Cyclobenza promise HCl 10 MG DULoxetine HCl 20 MG DULoxetine HCl 20 MG 01-14 00:00: 00 No 1{capsu le} BID DULoxetine HCl 20 MG Lidocaine 5 % Lidocaine 5 % 01-14 00:00: 00 No QD Lidocaine 5 % Fluticasone -Salmeterol 100-50 MCG/ACT Fluticasone -Salmeterol 100-50 MCG/ACT 2023-0 - 00:00: 00 No 1{puff} BID Fluticason e-Salmeter ol 100-50 MCG/ACT Breo Ellipta 50-25 MCG/INH Breo Ellipta 50-25 [...] 2022-09 2- 00:00: 00 No 40mg Common [facility] Albuterol Sulfate HFA 108 (90 Base) [...] one) 2022-09 2- 00:00: 00 No 40mg [facility] Montelukast Sodium 10 MG Montelukast Sodium 10 MG 2022-09 2-19 00:00: 00 No 1{table t} QD Montelukas t Sodium 10 MG Albuterol Sulfate HFA 108 (90 Base) MCG/ACT Albuterol Sulfate HFA 108 (90 Base) MCG/ACT 2022-09 2 00:00: 00 No 1{puff_ as_need ed} 6xD Albuterol Sulfate HFA 108 (90 Base) MCG/ACT Kenalog (Triamcinol one) Kenalog (Triamcinol one) 2022-09 2 00:00: 00 No 40mg [facility] Montelukast Sodium 10 MG Montelukast [...] 2022-09 00:00: 00 No 40mg [facility] Montelukast Sodium 10 MG Montelukast [...] 2022-09 00:00: 00 No 40mg [facility] Albuterol Sulfate HFA 108 (90 Base) MCG/ACT Albuterol Sulfate HFA 108 (90 Base) MCG/ACT 2022-09 00:00: 00 No 1{puff_ as_need ed} 6xD Albuterol Sulfate HFA 108 (90 Base) MCG/ACT Kenalog (Triamcinol one) Kenalog (Triamcinol one) 2022-09 2 00:00: 00 No 40mg [facility] Kenalog (Triamcinol one) Kenalog (Triamcinol one) 2022-09 00:00: 00 No 40mg [facility] Kenalog (Triamcinol one) Kenalog (Triamcinol one) 2022-09 00:00: 00 No 40mg [facility] Kenalog (Triamcinol one) Kenalog (Triamcinol one) 2022-09 00:00: 00 No 40mg [facility] Kenalog (Triamcinol one) Kenalog (Triamcinol one) 2022-09 00:00: 00 No 40mg [facility] Kenalog (Triamcinol one) Kenalog (Triamcinol one) 2022-09 00:00: 00 No 40mg [facility] Kenalog (Triamcinol one) Kenalog (Triamcinol one) 2022-09 00:00: 00 No 40mg [facility] Kenalog (Triamcinol one) Kenalog (Triamcinol one) 2022-09 00:00: 00 No 40mg [facility] Kenalog (Triamcinol one) Kenalog (Triamcinol one) 2022-09 00:00: 00 No 40mg [facility] Kenalog (Triamcinol one) Kenalog (Triamcinol one) 2022-09 00:00: 00 No 40mg [facility] Kenalog (Triamcinol one) Kenalog (Triamcinol one) 2022-09 00:00: 00 No 40mg [facility] Kenalog (Triamcinol one) Kenalog (Triamcinol one) 2022-09 00:00: 00 No 40mg [facility] Kenalog (Triamcinol one) Kenalog (Triamcinol one) 2022-09 00:00: 00 No 40mg [facility] Kenalog (Triamcinol one) Kenalog (Triamcinol one) 2022-09 00:00: 00 No 40mg [facility] Kenalog (Triamcinol one) Kenalog (Triamcinol one) 2022-09 00:00: 00 No 40mg [facility] Kenalog (Triamcinol one) Kenalog (Triamcinol one) 2022-09 00:00: 00 No 40mg [facility] Kenalog (Triamcinol one) Kenalog (Triamcinol one) 2022-09 00:00: 00 No 40mg [facility] Kenalog (Triamcinol one) Kenalog (Triamcinol one) 2022-09 00:00: 00 No 40mg [facility] Kenalog (Triamcinol one) Kenalog (Triamcinol one) 2022-09 00:00: 00 No 40mg [facility] Kenalog (Triamcinol one) Kenalog (Triamcinol one) 2022-09 00:00: 00 No 40mg [facility] Cyanocobala min Cyanocobala min 2022-09 0-10 00:00: 00 No 1000mL [facility] Kenalog (Triamcinol one) Kenalog (Triamcinol one) 2022-09 0-10 00:00: 00 No 40mg [facility] Cyanocobala min Cyanocobala min 2022-09 0-10 00:00: 00 No 1000mL [facility] Kenalog (Triamcinol one) Kenalog (Triamcinol one) 2022-09 0-10 00:00: 00 No 40mg [facility] Cyanocobala min Cyanocobala min 2022-09 0-10 00:00: 00 No 1000mL [facility] Kenalog (Triamcinol one) Kenalog (Triamcinol one) 2022-09 0-10 00:00: 00 No 40mg [facility] Cyanocobala min Cyanocobala min 2022-09 0-10 00:00: 00 No 1000mL [facility] Kenalog (Triamcinol one) Kenalog (Triamcinol one) 2022-09 0-10 00:00: 00 No 40mg [facility] Cyanocobala min Cyanocobala min 2022-09 0-10 00:00: 00 No 1000mL [facility] Kenalog (Triamcinol one) Kenalog (Triamcinol one) 2022-09 0-10 00:00: 00 No 40mg [facility] Cyanocobala min Cyanocobala min 2022-09 0-10 00:00: 00 No 1000mL [facility] Kenalog (Triamcinol one) Kenalog (Triamcinol one) 2022-09 0-10 00:00: 00 No 40mg [facility] Cyanocobala min Cyanocobala min 2022-09 0-10 00:00: 00 No 1000mL [facility] Kenalog (Triamcinol one) Kenalog (Triamcinol one) 2022-09 0-10 00:00: 00 No 40mg [facility] Cyanocobala min Cyanocobala min 2022-09 0-10 00:00: 00 No 1000mL [facility] Kenalog (Triamcinol one) Kenalog (Triamcinol one) 2022-09 0-10 00:00: 00 No 40mg [facility] Cyanocobala min Cyanocobala min 2022-09 0-10 00:00: 00 No 1000mL [facility] Kenalog (Triamcinol one) Kenalog (Triamcinol one) 2022-09 0-10 00:00: 00 No 40mg [facility] Cyanocobala min Cyanocobala min 2022-09 0-10 00:00: 00 No 1000mL [facility] Kenalog (Triamcinol one) Kenalog (Triamcinol one) 2022-09 0-10 00:00: 00 No 40mg [facility] Kenalog (Triamcinol one) Kenalog (Triamcinol one) 0 8-17 00:00: 00 No 40mg [facility] Cyanocobala min Cyanocobala min 0 8-17 00:00: 00 No 1000mL [facility] Kenalog (Triamcinol one) Kenalog (Triamcinol one) 0 8-17 00:00: 00 No 40mg [facility] Cyanocobala min Cyanocobala min 0 8-17 00:00: 00 No 1000mL [facility] Kenalog (Triamcinol one) Kenalog (Triamcinol one) 0 8-17 00:00: 00 No 40mg [facility] Cyanocobala min Cyanocobala min 0 8-17 00:00: 00 No 1000mL [facility] Kenalog (Triamcinol one) Kenalog (Triamcinol one) 0 8-17 00:00: 00 No 40mg [facility] Cyanocobala min Cyanocobala min 0 8-17 00:00: 00 No 1000mL [facility] Kenalog (Triamcinol one) Kenalog (Triamcinol one) 0 8-17 00:00: 00 No 40mg [facility] Cyanocobala min Cyanocobala min 0 8-17 00:00: 00 No 1000mL [facility] Kenalog (Triamcinol one) Kenalog (Triamcinol one) 0 8-17 00:00: 00 No 40mg [facility] Cyanocobala min Cyanocobala min 0 8-17 00:00: 00 No 1000mL [facility] Kenalog (Triamcinol one) Kenalog (Triamcinol one) 0 8- 00:00: 00 No 40mg [facility] Cyanocobala min Cyanocobala min 0 8 00:00: 00 No 1000mL [facility] Kenalog (Triamcinol one) Kenalog (Triamcinol one) 0 05-15 00:00: 00 No 40mg [facility] Cyanocobala min Cyanocobala min 0 8 00:00: 00 No 1000mL [facility] Kenalog (Triamcinol one) Kenalog (Triamcinol one) 0 05-15 00:00: 00 No 40mg [facility] Cyanocobala min Cyanocobala min 0 05-15 00:00: 00 No 1000mL [facility] Kenalog (Triamcinol one) Kenalog (Triamcinol one) 0 05-15 00:00: 00 No 40mg [facility] Cyanocobala min Cyanocobala min 0 05-15 00:00: 00 No 1000mL [facility] Kenalog (Triamcinol one) Kenalog (Triamcinol one) 0 8- 00:00: 00 No 40mg [facility] Cyanocobala min Cyanocobala min 0 05-15 00:00: 00 No 1000mL [facility] Kenalog (Triamcinol one) Kenalog (Triamcinol one) 0 - 00:00: 00 No 40mg [facility] Cyanocobala min Cyanocobala min 0 8- 00:00: 00 No 1000mL [facility] Kenalog (Triamcinol one) Kenalog (Triamcinol one) 0 8- 00:00: 00 No 40mg [facility] Cyanocobala min Cyanocobala min 0 8-17 00:00: 00 No 1000mL [facility] Kenalog (Triamcinol one) Kenalog (Triamcinol one) 0 8- 00:00: 00 No 40mg [facility] Cyanocobala min Cyanocobala min 0 8- 00:00: 00 No 1000mL [facility] Kenalog (Triamcinol one) Kenalog (Triamcinol one) 0 8- 00:00: 00 No 40mg [facility] Cyanocobala min Cyanocobala min 0 8- 00:00: 00 No 1000mL [facility] Kenalog (Triamcinol one) Kenalog (Triamcinol one) 0 8- 00:00: 00 No 40mg [facility] Cyanocobala min Cyanocobala min 0 05-15 00:00: 00 No 1000mL [facility] Kenalog (Triamcinol one) Kenalog (Triamcinol one) 0 05-15 00:00: 00 No 40mg [facility] Cyanocobala min Cyanocobala min 0 8- 00:00: 00 No 1000mL [facility] Kenalog (Triamcinol one) Kenalog (Triamcinol one) 0 05-15 00:00: 00 No 40mg [facility] Cyanocobala min Cyanocobala min 0 8-17 00:00: 00 No 1000mL [facility] Kenalog (Triamcinol one) Kenalog (Triamcinol one) 0 8-17 00:00: 00 No 40mg [facility] Cyanocobala min Cyanocobala min 0 8-17 00:00: 00 No 1000mL [facility] Kenalog (Triamcinol one) Kenalog (Triamcinol one) 0 8 00:00: 00 No 40mg [facility] Cyanocobala min Cyanocobala min 0 8 00:00: 00 No 1000mL [facility] Kenalog (Triamcinol one) Kenalog (Triamcinol one) 0 8- 00:00: 00 No 40mg [facility] Cyanocobala min Cyanocobala min 0 05-15 00:00: 00 No 1000mL [facility] Kenalog (Triamcinol one) Kenalog (Triamcinol one) 0 05-15 00:00: 00 No 40mg [facility] Cyanocobala min Cyanocobala min 0 05-15 00:00: 00 No 1000mL [facility] Kenalog (Triamcinol one) Kenalog (Triamcinol one) 0 05-15 00:00: 00 No 40mg [facility] Cyanocobala min Cyanocobala min 0 05-15 00:00: 00 No 1000mL [facility] Kenalog (Triamcinol one) Kenalog (Triamcinol one) 0 05-15 00:00: 00 No 40mg [facility] Cyanocobala min Cyanocobala min 0 05-15 00:00: 00 No 1000mL [facility] Kenalog (Triamcinol one) Kenalog (Triamcinol one) 0 - 00:00: 00 No 40mg [facility] Cyanocobala min Cyanocobala min 0 8 00:00: 00 No 1000mL [facility] Kenalog (Triamcinol one) Kenalog (Triamcinol one) 0 8- 00:00: 00 No 40mg [facility] Cyanocobala min Cyanocobala min 2022-0 8-17 00:00: 00 No 1000mL [facility] Kenalog (Triamcinol one) Kenalog (Triamcinol one) 2022-0 8-17 00:00: 00 No 40mg [facility] Cyanocobala min Cyanocobala min 2022-0 8-17 00:00: 00 No 1000mL [facility] Kenalog (Triamcinol one) Kenalog (Triamcinol one) 2022-0 8-17 00:00: 00 No [facility]mg [facility] Cyanocobala min Cyanocobala min 2022-0 8-17 00:00: 00 No 1000mL [facility] Kenalog (Triamcinol one) Kenalog (Triamcinol one) 2022-0 8-17 00:00: 00 No 40mg [facility] Cyanocobala min Cyanocobala min 0 8-17 00:00: 00 No 1000mL [facility] Kenalog (Triamcinol one) Kenalog (Triamcinol one) 0 8-17 00:00: 00 No 40mg [facility] Cyanocobala min Cyanocobala min 2022-0 8-17 00:00: 00 No 1000mL [facility] Kenalog (Triamcinol one) Kenalog (Triamcinol one) 2022-0 8-17 00:00: 00 No 40mg [facility] Cyanocobala min Cyanocobala min 2022-0 8-17 00:00: 00 No 1000mL [facility] Kenalog (Triamcinol one) Kenalog (Triamcinol one) 2022-0 8-17 00:00: 00 No 40mg [facility] Cyanocobala min Cyanocobala min 2022-0 8-17 00:00: 00 No 1000mL [facility] Kenalog (Triamcinol one) Kenalog (Triamcinol one) 0 8-17 00:00: 00 No 40mg [facility] Cyanocobala min Cyanocobala min 0 8-17 00:00: 00 No 1000mL [facility] Kenalog (Triamcinol one) Kenalog (Triamcinol one) 0 8-17 00:00: 00 No 40mg [facility] Cyanocobala min Cyanocobala min 0 8-17 00:00: 00 No 1000mL [facility] Kenalog (Triamcinol one) Kenalog (Triamcinol one) 0 8- 00:00: 00 No 40mg [facility] Cyanocobala min Cyanocobala min 0 8-17 00:00: 00 No 1000mL [facility] Kenalog (Triamcinol one) Kenalog (Triamcinol one) 0 8- 00:00: 00 No 40mg [facility] Cyanocobala min Cyanocobala min 0 8- 00:00: 00 No 1000mL [facility] Kenalog (Triamcinol one) Kenalog (Triamcinol one) 0 8- 00:00: 00 No 40mg [facility] Cyanocobala min Cyanocobala min 0 8-17 00:00: 00 No 1000mL [facility] Kenalog (Triamcinol one) Kenalog (Triamcinol one) 0 8-17 00:00: 00 No 40mg [facility] Cyanocobala min Cyanocobala min 0 8-17 00:00: 00 No 1000mL [facility] Kenalog (Triamcinol one) Kenalog (Triamcinol one) 0 8-17 00:00: 00 No 40mg [facility] Cyanocobala min Cyanocobala min 2022-0 8-17 00:00: 00 No 1000mL [facility] Kenalog (Triamcinol one) Kenalog (Triamcinol one) 0 8-17 00:00: 00 No 40mg [facility] Cyanocobala min Cyanocobala min 2022-0 8-17 00:00: 00 No 1000mL [facility] Kenalog (Triamcinol one) Kenalog (Triamcinol one) 0 -17 00:00: 00 No 40mg [facility] Cyanocobala min Cyanocobala min 0 -17 00:00: 00 No 1000mL [facility] Kenalog (Triamcinol one) Kenalog (Triamcinol one) 0 -17 00:00: 00 No 40mg [facility] Cyanocobala min Cyanocobala min 0 -17 00:00: 00 No 1000mL [facility] Kenalog (Triamcinol one) Kenalog (Triamcinol one) 0 -17 00:00: 00 No 40mg [facility] Cyanocobala min Cyanocobala min 0 -17 00:00: 00 No 1000mL [facility] Kenalog (Triamcinol one) Kenalog (Triamcinol one) 0 -17 00:00: 00 No 40mg [facility] Cyanocobala min Cyanocobala min 0 5-17 00:00: 00 No 1000mL [facility] Kenalog (Triamcinol one) Kenalog (Triamcinol one) 0 -17 00:00: 00 No 40mg [facility] Cyanocobala min Cyanocobala min 2022-0 5-17 00:00: 00 No 1000mL [facility] Kenalog (Triamcinol one) Kenalog (Triamcinol one) 0 02-12 00:00: 00 No 40mg [facility] Cyanocobala min Cyanocobala min 0 02-12 00:00: 00 No 1000mL [facility] Kenalog (Triamcinol one) Kenalog (Triamcinol one) 0 02-12 00:00: 00 No 40mg [facility] Cyanocobala min Cyanocobala min 0 02-12 00:00: 00 No 1000mL [facility] Kenalog (Triamcinol one) Kenalog (Triamcinol one) 0 02-12 00:00: 00 No 40mg [facility] Cyanocobala min Cyanocobala min 0 02-12 00:00: 00 No 1000mL [facility] Kenalog (Triamcinol one) Kenalog (Triamcinol one) 0 02-12 00:00: 00 No 40mg [facility] Cyanocobala min Cyanocobala min 0 02-12 00:00: 00 No 1000mL [facility] Kenalog (Triamcinol one) Kenalog (Triamcinol one) 0 02-12 00:00: 00 No 40mg [facility] Cyanocobala min Cyanocobala min 0 02-12 00:00: 00 No 1000mL [facility] Kenalog (Triamcinol one) Kenalog (Triamcinol one) 0 02-12 00:00: 00 No 40mg [facility] Cyanocobala min Cyanocobala min 0 02-12 00:00: 00 No 1000mL [facility] Kenalog (Triamcinol one) Kenalog (Triamcinol one) 0 02-12 00:00: 00 No 40mg [facility] Cyanocobala min Cyanocobala min 02-12 00:00: 00 No 1000mL [facility] Kenalog (Triamcinol one) Kenalog (Triamcinol one) 0 02-12 00:00: 00 No 40mg [facility] Cyanocobala min Cyanocobala min 0 02-12 00:00: 00 No 1000mL [facility] Kenalog (Triamcinol one) Kenalog (Triamcinol one) 0 02-12 00:00: 00 No 40mg [facility] Cyanocobala min Cyanocobala min 0 02-12 00:00: 00 No 1000mL [facility] Kenalog (Triamcinol one) Kenalog (Triamcinol one) 0 02-12 00:00: 00 No 40mg [facility] Cyanocobala min Cyanocobala min 0 02-12 00:00: 00 No 1000mL [facility] Kenalog (Triamcinol one) Kenalog (Triamcinol one) 0 02-12 00:00: 00 No 40mg [facility] Cyanocobala min Cyanocobala min 0 02-12 00:00: 00 No 1000mL [facility] Kenalog (Triamcinol one) Kenalog (Triamcinol one) 0 02-12 00:00: 00 No 40mg [facility] Cyanocobala min Cyanocobala min 0 02-12 00:00: 00 No 1000mL [facility] Kenalog (Triamcinol one) Kenalog (Triamcinol one) 0 02-12 00:00: 00 No 40mg [facility] Cyanocobala min Cyanocobala min 0 02-12 00:00: 00 No 1000mL [facility] Kenalog (Triamcinol one) Kenalog (Triamcinol one) 0 02-12 00:00: 00 No 40mg [facility] Cyanocobala min Cyanocobala min 0 02-12 00:00: 00 No 1000mL [facility] Kenalog (Triamcinol one) Kenalog (Triamcinol one) 0 02-12 00:00: 00 No 40mg [facility] Cyanocobala min Cyanocobala min 0 02-12 00:00: 00 No 1000mL [facility] Kenalog (Triamcinol one) Kenalog (Triamcinol one) 0 02-12 00:00: 00 No 40mg [facility] Cyanocobala min Cyanocobala min 0 02-12 00:00: 00 No 1000mL [facility] Kenalog (Triamcinol one) Kenalog (Triamcinol one) 0 02-12 00:00: 00 No 40mg [facility] Cyanocobala min Cyanocobala min 0 02-12 00:00: 00 No 1000mL [facility] Kenalog (Triamcinol one) Kenalog (Triamcinol one) 0 02-12 00:00: 00 No 40mg [facility] Cyanocobala min Cyanocobala min 0 02-12 00:00: 00 No 1000mL [facility] Kenalog (Triamcinol one) Kenalog (Triamcinol one) 0 02-12 00:00: 00 No 40mg [facility] Cyanocobala min Cyanocobala min 0 02-12 00:00: 00 No 1000mL [facility] Kenalog (Triamcinol one) Kenalog (Triamcinol one) 0 02-12 00:00: 00 No 40mg [facility] Cyanocobala min Cyanocobala min 0 -17 00:00: 00 No 1000mL [facility] Kenalog (Triamcinol one) Kenalog (Triamcinol one) 0 02-12 00:00: 00 No 40mg [facility] Cyanocobala min Cyanocobala min 0 02-12 00:00: 00 No 1000mL [facility] Kenalog (Triamcinol one) Kenalog (Triamcinol one) 0 02-12 00:00: 00 No 40mg [facility] Cyanocobala min Cyanocobala min 0 02-12 00:00: 00 No 1000mL [facility] Kenalog (Triamcinol one) Kenalog (Triamcinol one) 0 02-12 00:00: 00 No 40mg [facility] Cyanocobala min Cyanocobala min 0 02-12 00:00: 00 No 1000mL [facility] Kenalog (Triamcinol one) Kenalog (Triamcinol one) 0 02-12 00:00: 00 No 40mg [facility] Cyanocobala min Cyanocobala min 0 02-12 00:00: 00 No 1000mL [facility] Kenalog (Triamcinol one) Kenalog (Triamcinol one) 0 02-12 00:00: 00 No 40mg [facility] Cyanocobala min Cyanocobala min 0 02-12 00:00: 00 No 1000mL [facility] Kenalog (Triamcinol one) Kenalog (Triamcinol one) 0 02-12 00:00: 00 No 40mg [facility] Cyanocobala min Cyanocobala min 0 02-12 00:00: 00 No 1000mL [facility] Kenalog (Triamcinol one) Kenalog (Triamcinol one) 0 02-12 00:00: 00 No 40mg [facility] Cyanocobala min Cyanocobala min 0 02-12 00:00: 00 No 1000mL [facility] Kenalog (Triamcinol one) Kenalog (Triamcinol one) 0 - 00:00: 00 No 40mg [facility] Cyanocobala min Cyanocobala min 0 02-12 00:00: 00 No 1000mL [facility] Kenalog (Triamcinol one) Kenalog (Triamcinol one) 0 02-12 00:00: 00 No 40mg [facility] Cyanocobala min Cyanocobala min 0 02-12 00:00: 00 No 1000mL [facility] Kenalog (Triamcinol one) Kenalog (Triamcinol one) 0 02-12 00:00: 00 No 40mg [facility] Cyanocobala min Cyanocobala min 0 02-12 00:00: 00 No 1000mL [facility] Kenalog (Triamcinol one) Kenalog (Triamcinol one) 0 02-12 00:00: 00 No 40mg [facility] Cyanocobala min Cyanocobala min 0 02-12 00:00: 00 No 1000mL [facility] Kenalog (Triamcinol one) Kenalog (Triamcinol one) 0 02-12 00:00: 00 No 40mg [facility] Cyanocobala min Cyanocobala min 0 02-12 00:00: 00 No 1000mL [facility] Kenalog (Triamcinol one) Kenalog (Triamcinol one) 0 - 00:00: 00 No 40mg [facility] Cyanocobala min Cyanocobala min 0 -17 00:00: 00 No 1000mL [facility] Kenalog (Triamcinol one) Kenalog (Triamcinol one) 02-12 00:00: 00 No 40mg [facility] Cyanocobala min Cyanocobala min 02-12 00:00: 00 No 1000mL [facility] Kenalog (Triamcinol one) Kenalog (Triamcinol one) 02-12 00:00: 00 No 40mg [facility] Cyanocobala min Cyanocobala min 02-12 00:00: 00 No [facility] hydrOXYzine (ATARAX) tablet 25 mg 01-28 18:45: 00 01-28 18:51 :00 No 25mg 25 mg, Oral, ONCE, 1 dose, On Fri01/28/23 at 1345, [facility] 50 MG traMADol HCl 50 MG 01-27 00:00: 00 No 1{table t_as_ne eded} traMADol HCl 50 MG Bupivicaine [place] Bupivicaine [place] -15 00:00: 00 No 5mL [facility] Kenalog (Triamcinol one) Kenalog (Triamcinol one) -15 00:00: 00 No 1mL [facility] Bupivicaine [place] Bupivicaine [place] -15 00:00: 00 No 5mL [facility] Kenalog (Triamcinol one) Kenalog (Triamcinol one) 0 -15 00:00: 00 No 1mL [facility] Bupivicaine [place] Bupivicaine [place] 0 -15 00:00: 00 No 5mL [facility] Kenalog (Triamcinol one) Kenalog (Triamcinol one) 0 -15 00:00: 00 No 1mL [facility] Bupivicaine [place] Bupivicaine [place] 0 3-15 00:00: 00 No 5mL [facility] Kenalog (Triamcinol one) Kenalog (Triamcinol one) 0 3-15 00:00: 00 No 1mL [facility] Bupivicaine [place] Bupivicaine [place] 0 3-15 00:00: 00 No 5mL [facility] Kenalog (Triamcinol one) Kenalog (Triamcinol one) 0 3-15 00:00: 00 No 1mL [facility] Bupivicaine [place] Bupivicaine [place] 0 3-15 00:00: 00 No 5mL [facility] Kenalog (Triamcinol one) Kenalog (Triamcinol one) 0 3-15 00:00: 00 No 1mL [facility] Bupivicaine [place] Bupivicaine [place] 0 3-15 00:00: 00 No 5mL [facility] Kenalog (Triamcinol one) Kenalog (Triamcinol one) 0 3-15 00:00: 00 No 1mL [facility] Bupivicaine [place] Bupivicaine [place] 0 3-15 00:00: 00 No 5mL [facility] Kenalog (Triamcinol one) Kenalog (Triamcinol one) 0 3-15 00:00: 00 No 1mL [facility] Bupivicaine [place] Bupivicaine [place] 0 3-15 00:00: 00 No 5mL [facility] Kenalog (Triamcinol one) Kenalog (Triamcinol one) 0 3-15 00:00: 00 No 1mL [facility] Bupivicaine [place] Bupivicaine [place] 2022-0 3-15 00:00: 00 No 5mL [facility] Kenalog (Triamcinol one) Kenalog (Triamcinol one) 0 3-15 00:00: 00 No 1mL [facility] Bupivicaine [place] Bupivicaine [place] 0 3-15 00:00: 00 No 5mL [facility] Kenalog (Triamcinol one) Kenalog (Triamcinol one) 0 3-15 00:00: 00 No 1mL [facility] Bupivicaine [place] Bupivicaine [place] 0 3-15 00:00: 00 No 5mL [facility] Kenalog (Triamcinol one) Kenalog (Triamcinol one) 0 3-15 00:00: 00 No 1mL [facility] Bupivicaine [place] Bupivicaine [place] 0 3-15 00:00: 00 No 5mL [facility] Kenalog (Triamcinol one) Kenalog (Triamcinol one) 0 3-15 00:00: 00 No 1mL [facility] Bupivicaine [place] Bupivicaine [place] 0 3-15 00:00: 00 No 5mL [facility] Kenalog (Triamcinol one) Kenalog (Triamcinol one) 0 3-15 00:00: 00 No 1mL [facility] Bupivicaine [place] Bupivicaine [place] 0 3-15 00:00: 00 No 5mL [facility] Kenalog (Triamcinol one) Kenalog (Triamcinol one) 0 3-15 00:00: 00 No 1mL [facility] Bupivicaine [place] Bupivicaine [place] 0 3-15 00:00: 00 No 5mL [facility] Kenalog (Triamcinol one) Kenalog (Triamcinol one) 0 3-15 00:00: 00 No 1mL [facility] Bupivicaine [place] Bupivicaine [place] 0 3-15 00:00: 00 No 5mL [facility] Kenalog (Triamcinol one) Kenalog (Triamcinol one) 0 3-15 00:00: 00 No 1mL [facility] Bupivicaine [place] Bupivicaine [place] 0 -15 00:00: 00 No 5mL [facility] Kenalog (Triamcinol one) Kenalog (Triamcinol one) 0 3-15 00:00: 00 No 1mL [facility] Bupivicaine [place] Bupivicaine [place] 0 -15 00:00: 00 No 5mL [facility] Kenalog (Triamcinol one) Kenalog (Triamcinol one) 0 -15 00:00: 00 No 1mL [facility] Bupivicaine [place] Bupivicaine [place] 0 315 00:00: 00 No 5mL [facility] Kenalog (Triamcinol one) Kenalog (Triamcinol one) 0 3-15 00:00: 00 No 1mL [facility] Bupivicaine [place] Bupivicaine [place] 0 15 00:00: 00 No 5mL [facility] Kenalog (Triamcinol one) Kenalog (Triamcinol one) 0 3-15 00:00: 00 No 1mL [facility] Bupivicaine [place] Bupivicaine [place] 0 3-15 00:00: 00 No 5mL [facility] Kenalog (Triamcinol one) Kenalog (Triamcinol one) 0 3-15 00:00: 00 No 1mL [facility] Bupivicaine [place] Bupivicaine [place] 0 3-15 00:00: 00 No 5mL [facility] Kenalog (Triamcinol one) Kenalog (Triamcinol one) 0 3-15 00:00: 00 No 1mL [facility] Bupivicaine [place] Bupivicaine [place] 0 3-15 00:00: 00 No 5mL [facility] Kenalog (Triamcinol one) Kenalog (Triamcinol one) 0 3-15 00:00: 00 No 1mL [facility] Bupivicaine [place] Bupivicaine [place] 0 3-15 00:00: 00 No 5mL [facility] Kenalog (Triamcinol one) Kenalog (Triamcinol one) 0 3-15 00:00: 00 No 1mL [facility] Bupivicaine [place] Bupivicaine [place] 0 3-15 00:00: 00 No 5mL [facility] Kenalog (Triamcinol one) Kenalog (Triamcinol one) 0 3-15 00:00: 00 No 1mL [facility] Bupivicaine [place] Bupivicaine [place] 0 3-15 00:00: 00 No 5mL [facility] Kenalog (Triamcinol one) Kenalog (Triamcinol one) 0 3-15 00:00: 00 No 1mL [facility] Bupivicaine [place] Bupivicaine [place] 0 3-15 00:00: 00 No 5mL [facility] Kenalog (Triamcinol one) Kenalog (Triamcinol one) 0 3-15 00:00: 00 No 1mL [facility] Bupivicaine [place] Bupivicaine [place] 0 3-15 00:00: 00 No 5mL [facility] Kenalog (Triamcinol one) Kenalog (Triamcinol one) 0 3-15 00:00: 00 No 1mL [facility] Bupivicaine [place] Bupivicaine [place] 2022-0 3-15 00:00: 00 No 5mL [facility] Kenalog (Triamcinol one) Kenalog (Triamcinol one) 0 3-15 00:00: 00 No 1mL [facility] Bupivicaine [place] Bupivicaine [place] 2022-0 3-15 00:00: 00 No 5mL [facility] Kenalog (Triamcinol one) Kenalog (Triamcinol one) 0 3-15 00:00: 00 No 1mL [facility] Bupivicaine [place] Bupivicaine [place] 0 3-15 00:00: 00 No 5mL [facility] Kenalog (Triamcinol one) Kenalog (Triamcinol one) 0 3-15 00:00: 00 No 1mL [facility] Bupivicaine [place] Bupivicaine [place] 0 3-15 00:00: 00 No 5mL [facility] Kenalog (Triamcinol one) Kenalog (Triamcinol one) 0 3-15 00:00: 00 No 1mL [facility] Bupivicaine [place] Bupivicaine [place] 0 3-15 00:00: 00 No 5mL [facility] Kenalog (Triamcinol one) Kenalog (Triamcinol one) 0 3-15 00:00: 00 No 1mL [facility] Bupivicaine [place] Bupivicaine [place] 0 3-15 00:00: 00 No 5mL [facility] Kenalog (Triamcinol one) Kenalog (Triamcinol one) 0 3-15 00:00: 00 No 1mL [facility] Bupivicaine [place] Bupivicaine [place] 2022-0 3-15 00:00: 00 No 5mL [facility] Kenalog (Triamcinol one) Kenalog (Triamcinol one) 0 3-15 00:00: 00 No 1mL [facility] Bupivicaine [place] Bupivicaine [place] 2023-0 3-15 00:00: 00 No 5mL [facility] Kenalog (Triamcinol one) Kenalog (Triamcinol one) 0 3-15 00:00: 00 No 1mL [facility] Bupivicaine [place] Bupivicaine [place] 0 3-15 00:00: 00 No 5mL [facility] Kenalog (Triamcinol one) Kenalog (Triamcinol one) 0 3-15 00:00: 00 No 1mL [facility] Bupivicaine [place] Bupivicaine [place] 0 3-15 00:00: 00 No 5mL [facility] Kenalog (Triamcinol one) Kenalog (Triamcinol one) 0 3-15 00:00: 00 No 1mL [facility] Bupivicaine [place] Bupivicaine [place] 0 3-15 00:00: 00 No 5mL [facility] Kenalog (Triamcinol one) Kenalog (Triamcinol one) 0 3-15 00:00: 00 No 1mL [facility] Bupivicaine [place] Bupivicaine [place] 0 3-15 00:00: 00 No 5mL [facility] Kenalog (Triamcinol one) Kenalog (Triamcinol one) 0 3-15 00:00: 00 No 1mL [facility] Kenalog (Triamcinol one) Kenalog (Triamcinol one) 0 2-16 00:00: 00 No 40mg [facility] Bupivicaine [place] Bupivicaine [place] 0 2-16 00:00: 00 No 2.5mg [facility] Kenalog (Triamcinol one) Kenalog (Triamcinol one) 2022-0 2-16 00:00: 00 No 1mL [facility] Kenalog (Triamcinol one) Kenalog (Triamcinol one) 0 2-16 00:00: 00 No 40mg [facility] Bupivicaine [place] Bupivicaine [place] 0 -16 00:00: 00 No 2.5mg [facility] Kenalog (Triamcinol one) Kenalog (Triamcinol one) 0 2-16 00:00: 00 No [facility]mL [facility] [facility] Kenalog (Triamcinol one) Kenalog (Triamcinol one) 0 -16 00:00: 00 No 40mg [facility] Bupivicaine [place] Bupivicaine [place] 0 16 00:00: 00 No 2.5mg [facility] Kenalog (Triamcinol one) Kenalog (Triamcinol one) 0 2-16 00:00: 00 No 1mL [facility] Kenalog (Triamcinol one) Kenalog (Triamcinol one) 0 -16 00:00: 00 No 40mg [facility] Bupivicaine [place] Bupivicaine [place] 0 16 00:00: 00 No 2.5mg [facility] Kenalog (Triamcinol one) Kenalog (Triamcinol one) 0 2-16 00:00: 00 No 1mL [facility] Kenalog (Triamcinol one) Kenalog (Triamcinol one) 0 2-16 00:00: 00 No 40mg [facility] Bupivicaine [place] Bupivicaine [place] 0 -16 00:00: 00 No 2.5mg [facility] Kenalog (Triamcinol one) Kenalog (Triamcinol one) 0 2-16 00:00: 00 No 1mL [facility] Kenalog (Triamcinol one) Kenalog (Triamcinol one) 0 2-16 00:00: 00 No 40mg [facility] Bupivicaine [place] Bupivicaine [place] 0 2-16 00:00: 00 No 2.5mg [facility] Kenalog (Triamcinol one) Kenalog (Triamcinol one) 0 2-16 00:00: 00 No 1mL [facility] Kenalog (Triamcinol one) Kenalog (Triamcinol one) 0 2-16 00:00: 00 No 40mg [facility] Bupivicaine [place] Bupivicaine [place] 0 2-16 00:00: 00 No 2.5mg [facility] Kenalog (Triamcinol one) Kenalog (Triamcinol one) 0 2-16 00:00: 00 No 1mL [facility] Kenalog (Triamcinol one) Kenalog (Triamcinol one) 0 2-16 00:00: 00 No 40mg [facility] Bupivicaine [place] Bupivicaine [place] 0 2-16 00:00: 00 No 2.5mg [facility] Kenalog (Triamcinol one) Kenalog (Triamcinol one) 0 2-16 00:00: 00 No 1mL [facility] Kenalog (Triamcinol one) Kenalog (Triamcinol one) 0 2-16 00:00: 00 No 40mg [facility] Bupivicaine [place] Bupivicaine [place] 0 -16 00:00: 00 No 2.5mg [facility] Kenalog (Triamcinol one) Kenalog (Triamcinol one) 0 2-16 00:00: 00 No 1mL [facility] Kenalog (Triamcinol one) Kenalog (Triamcinol one) 0 2-16 00:00: 00 No 40mg [facility] Bupivicaine [place] Bupivicaine [place] 0 2-16 00:00: 00 No 2.5mg [facility] Kenalog (Triamcinol one) Kenalog (Triamcinol one) 0 2-16 00:00: 00 No 1mL [facility] Kenalog (Triamcinol one) Kenalog (Triamcinol one) 0 2-16 00:00: 00 No 40mg [facility] Bupivicaine [place] Bupivicaine [place] 0 2-16 00:00: 00 No 2.5mg [facility] Kenalog (Triamcinol one) Kenalog (Triamcinol one) 0 216 00:00: 00 No 1mL [facility] Kenalog (Triamcinol one) Kenalog (Triamcinol one) 0 2-16 00:00: 00 No 40mg [facility] Bupivicaine [place] Bupivicaine [place] 0 16 00:00: 00 No 2.5mg [facility] Kenalog (Triamcinol one) Kenalog (Triamcinol one) 0 2-16 00:00: 00 No 1mL [facility] Kenalog (Triamcinol one) Kenalog (Triamcinol one) 0 2-16 00:00: 00 No 40mg [facility] Bupivicaine [place] Bupivicaine [place] 0 16 00:00: 00 No 2.5mg [facility] Kenalog (Triamcinol one) Kenalog (Triamcinol one) 0 2-16 00:00: 00 No 1mL [facility] Kenalog (Triamcinol one) Kenalog (Triamcinol one) 0 2-16 00:00: 00 No 40mg [facility] Bupivicaine [place] Bupivicaine [place] 0 2-16 00:00: 00 No 2.5mg [facility] Kenalog (Triamcinol one) Kenalog (Triamcinol one) 0 2-16 00:00: 00 No 1mL [facility] Kenalog (Triamcinol one) Kenalog (Triamcinol one) 0 2-16 00:00: 00 No 40mg [facility] Bupivicaine [place] Bupivicaine [place] 0 2-16 00:00: 00 No 2.5mg [facility] Kenalog (Triamcinol one) Kenalog (Triamcinol one) 0 2-16 00:00: 00 No 1mL [facility] Kenalog (Triamcinol one) Kenalog (Triamcinol one) 0 2-16 00:00: 00 No 40mg [facility] Bupivicaine [place] Bupivicaine [place] 0 2-16 00:00: 00 No 2.5mg [facility] Kenalog (Triamcinol one) Kenalog (Triamcinol one) 0 2-16 00:00: 00 No 1mL [facility] Kenalog (Triamcinol one) Kenalog (Triamcinol one) 0 2-16 00:00: 00 No 40mg [facility] Bupivicaine [place] Bupivicaine [place] 0 2-16 00:00: 00 No 2.5mg [facility] Kenalog (Triamcinol one) Kenalog (Triamcinol one) 0 2-16 00:00: 00 No 1mL [facility] Kenalog (Triamcinol one) Kenalog (Triamcinol one) 0 2-16 00:00: 00 No 40mg [facility] Bupivicaine [place] Bupivicaine [place] 0 2-16 00:00: 00 No 2.5mg [facility] Kenalog (Triamcinol one) Kenalog (Triamcinol one) 0 -16 00:00: 00 No 1mL [facility] Kenalog (Triamcinol one) Kenalog (Triamcinol one) 0 -16 00:00: 00 No 40mg [facility] Bupivicaine [place] Bupivicaine [place] 0 2-16 00:00: 00 No 2.5mg [facility] Kenalog (Triamcinol one) Kenalog (Triamcinol one) 0 2-16 00:00: 00 No 1mL [facility] Kenalog (Triamcinol one) Kenalog (Triamcinol one) 0 -16 00:00: 00 No 40mg [facility] Bupivicaine [place] Bupivicaine [place] 0 -16 00:00: 00 No 2.5mg [facility] Kenalog (Triamcinol one) Kenalog (Triamcinol one) 0 2-16 00:00: 00 No 1mL [facility] Kenalog (Triamcinol one) Kenalog (Triamcinol one) 0 -16 00:00: 00 No 40mg [facility] Bupivicaine [place] Bupivicaine [place] 0 -16 00:00: 00 No 2.5mg [facility] Kenalog (Triamcinol one) Kenalog (Triamcinol one) 0 2-16 00:00: 00 No 1mL [facility] Kenalog (Triamcinol one) Kenalog (Triamcinol one) 0 2-16 00:00: 00 No 40mg [facility] Bupivicaine [place] Bupivicaine [place] 0 -16 00:00: 00 No 2.5mg [facility] Kenalog (Triamcinol one) Kenalog (Triamcinol one) 0 2-16 00:00: 00 No 1mL [facility] Kenalog (Triamcinol one) Kenalog (Triamcinol one) 0 2-16 00:00: 00 No 40mg [facility] Bupivicaine [place] Bupivicaine [place] 0 2-16 00:00: 00 No 2.5mg [facility] Kenalog (Triamcinol one) Kenalog (Triamcinol one) 0 2-16 00:00: 00 No 1mL [facility] Kenalog (Triamcinol one) Kenalog (Triamcinol one) 0 2-16 00:00: 00 No 40mg [facility] Bupivicaine [place] Bupivicaine [place] 0 2-16 00:00: 00 No 2.5mg [facility] Kenalog (Triamcinol one) Kenalog (Triamcinol one) 0 2-16 00:00: 00 No 1mL [facility] Kenalog (Triamcinol one) Kenalog (Triamcinol one) 0 2-16 00:00: 00 No 40mg [facility] Bupivicaine [place] Bupivicaine [place] 0 2-16 00:00: 00 No 2.5mg [facility] Kenalog (Triamcinol one) Kenalog (Triamcinol one) 0 2-16 00:00: 00 No 1mL [facility] Kenalog (Triamcinol one) Kenalog (Triamcinol one) 0 2-16 00:00: 00 No 40mg [facility] Bupivicaine [place] Bupivicaine [place] 0 2-16 00:00: 00 No 2.5mg [facility] Kenalog (Triamcinol one) Kenalog (Triamcinol one) 2022-0 2-16 00:00: 00 No 1mL [facility] Kenalog (Triamcinol one) Kenalog (Triamcinol one) 0 2-16 00:00: 00 No 40mg [facility] Bupivicaine [place] Bupivicaine [place] 0 -16 00:00: 00 No 2.5mg [facility] Kenalog (Triamcinol one) Kenalog (Triamcinol one) 0 2-16 00:00: 00 No 1mL [facility] Kenalog (Triamcinol one) Kenalog (Triamcinol one) 0 -16 00:00: 00 No 40mg [facility] Bupivicaine [place] Bupivicaine [place] 0 16 00:00: 00 No 2.5mg [facility] Kenalog (Triamcinol one) Kenalog (Triamcinol one) 0 2-16 00:00: 00 No 1mL [facility] Kenalog (Triamcinol one) Kenalog (Triamcinol one) 0 -16 00:00: 00 No 40mg [facility] Bupivicaine [place] Bupivicaine [place] 0 16 00:00: 00 No 2.5mg [facility] Kenalog (Triamcinol one) Kenalog (Triamcinol one) 0 2-16 00:00: 00 No 1mL [facility] Kenalog (Triamcinol one) Kenalog (Triamcinol one) 0 2-16 00:00: 00 No 40mg [facility] Bupivicaine [place] Bupivicaine [place] 0 -16 00:00: 00 No 2.5mg [facility] Kenalog (Triamcinol one) Kenalog (Triamcinol one) 0 2-16 00:00: 00 No 1mL [facility] Kenalog (Triamcinol one) Kenalog (Triamcinol one) 0 2-16 00:00: 00 No 40mg [facility] Bupivicaine [place] Bupivicaine [place] 0 2-16 00:00: 00 No 2.5mg [facility] Kenalog (Triamcinol one) Kenalog (Triamcinol one) 0 2-16 00:00: 00 No 1mL [facility] Kenalog (Triamcinol one) Kenalog (Triamcinol one) 0 2-16 00:00: 00 No 40mg [facility] Bupivicaine [place] Bupivicaine [place] 0 2-16 00:00: 00 No 2.5mg [facility] Kenalog (Triamcinol one) Kenalog (Triamcinol one) 0 2-16 00:00: 00 No 1mL [facility] Kenalog (Triamcinol one) Kenalog (Triamcinol one) 0 2-16 00:00: 00 No 40mg [facility] Bupivicaine [place] Bupivicaine [place] 0 2-16 00:00: 00 No 2.5mg [facility] Kenalog (Triamcinol one) Kenalog (Triamcinol one) 0 2-16 00:00: 00 No 1mL [facility] Kenalog (Triamcinol one) Kenalog (Triamcinol one) 0 2-16 00:00: 00 No 40mg [facility] Bupivicaine [place] Bupivicaine [place] 0 -16 00:00: 00 No 2.5mg [facility] Kenalog (Triamcinol one) Kenalog (Triamcinol one) 0 2-16 00:00: 00 No 1mL [facility] Kenalog (Triamcinol one) Kenalog (Triamcinol one) 0 2-16 00:00: 00 No 40mg [facility] Bupivicaine [place] Bupivicaine [place] 16 00:00: 00 No 2.5mg [facility] Kenalog (Triamcinol one) Kenalog (Triamcinol one) -16 00:00: 00 No 1mL [facility] Kenalog (Triamcinol one) Kenalog (Triamcinol one) 0 2-16 00:00: 00 No 40mg [facility] Bupivicaine [place] Bupivicaine [place] 16 00:00: 00 No 2.5mg [facility] Kenalog (Triamcinol one) Kenalog (Triamcinol one) 16 00:00: 00 No 1mL [facility] Kenalog (Triamcinol one) Kenalog (Triamcinol one) 2-16 00:00: 00 No 40mg [facility] Bupivicaine [place] Bupivicaine [place] 16 00:00: 00 No 2.5mg [facility] Kenalog (Triamcinol one) Kenalog (Triamcinol one) 16 00:00: 00 No 1mL [facility] traMADol HCl 50 MG traMADol HCl 50 MG -16 00:00: 00 No 1{table t_as_ne eded} traMADol HCl 50 MG Kenalog (Triamcinol one) Kenalog (Triamcinol one) -16 00:00: 00 No 1mL [facility] Kenalog (Triamcinol one) Kenalog (Triamcinol one) 0 2-16 00:00: 00 No 40mg [facility] Bupivicaine [place] Bupivicaine [place] 0 2-16 00:00: 00 No 2.5mg [facility] Kenalog (Triamcinol one) Kenalog (Triamcinol one) 0 2-16 00:00: 00 No 40mg [facility] Bupivicaine [place] Bupivicaine [place] -16 00:00: 00 No 2.5mg [facility] Kenalog (Triamcinol one) Kenalog (Triamcinol one) -16 00:00: 00 No 1mL [facility] Kenalog (Triamcinol one) Kenalog (Triamcinol one) -16 00:00: 00 No 40mg [facility] Bupivicaine [place] Bupivicaine [place] 16 00:00: 00 No 2.5mg [facility] Kenalog (Triamcinol one) Kenalog (Triamcinol one) 16 00:00: 00 No 1mL [facility] Kenalog (Triamcinol one) Kenalog (Triamcinol one) 11-14 00:00: 00 No 40mg [facility] Bupivicaine [place] Bupivicaine [place] 11-14 00:00: 00 No 2.5mg [facility] Kenalog (Triamcinol one) Kenalog (Triamcinol one) 16 00:00: 00 No 1mL [facility] dextrose 50 % in water (D50W) injection 50 mL 2021-09 19:30: 00 08-30 18:42 :00 No 50mL 50 mL, Slow IV Push, ONCE, 1 dose, On Fri08/30/22 at 1330, Routine [facility] NaCl 0.9% (NS) bolus infusion 1,000 mL 2021-09 17:45: 00 08-30 19:38 :00 No 1000mL at 999 mL/hr, 1,000 mL, IV Infusion, ONCE, 1 dose, On Fri08/30/22 at 1145, [facility]NA [facility] NaCl 0.9% (NS) bolus infusion 1,000 mL 2022-1 2-02 16:00: 00 08-30 16:53 :00 No 1000mL at 999 mL/hr, 1,000 mL, IV Infusion, ONCE, 1 dose, On Fri08/30/22 at 1000, [facility] NaCl 0.9% (NS) bolus infusion 1,000 mL 2021-09 14:45: 00 08-30 15:24 :00 No 1000mL at 999 mL/hr, 1,000 mL, IV Infusion, ONCE, 1 dose, On Fri08/30/22 at 0845, [facility] carvediloL 3.125 mg tablet 05-25 00:00: 00 06-25 04:59 :00 No [id number] 3.125mg Take 1 tablet by mouth in the morning and 1 tablet in the evening. Take with meals. Do all this for 30 days. [facility] nicotine 21 mg/24 hr patch 05-24 17:45: 28 Yes 1{patch } Apply 1 Patch to area(s) every 24 (twenty-fo ur) hours. Patient reports he smokes 13 cigarettes per day. [facility] hydrOXYzine (ATARAX) tablet 10 mg 05-24 15:14: 53 Yes 10mg 10 mg, Oral, Q6HPRN, Starting on Fri05/24/22 at 1014, Until Discontinu ed, Routine, Anxiety, Itching [facility] polyethylen e glycol 3350 powder 17 g 05-24 14:00: 00 Yes 17g 17 g, Oral, DAILY, First dose on Fri05/24/22 at 0900, Until Discontinu ed, Routine [facility] pantoprazol e (PROTONIX) EC tablet 40 mg 05-24 14:00: 00 Yes 40mg 40 mg, Oral, DAILY, First dose on Fri05/24/22 at 0900, Until Discontinu ed, Routine [facility] isosorbide mononitrate (IMDUR) 24 hr tablet 30 mg 05-24 14:00: 00 Yes 30mg 30 mg, Oral, DAILY, First dose on Fri05/24/22 at 0900, Until Discontinu ed, Routine [facility] atorvastati n (LIPITOR) tablet 80 mg 05-24 14:00: 00 Yes 80mg 80 mg, Oral, DAILY, First dose on Fri05/24/22 at 0900, Until Discontinu ed, Routine [facility] aspirin chewable tablet 81 mg 05-24 14:00: 00 Yes 81mg 81 mg, Oral, DAILY, First dose on Fri05/24/22 at 0900, Until Discontinu ed, Routine [facility] carvediloL (COREG) tablet 3.125 mg 05-24 13:00: 00 Yes 3.125mg 3.125 mg, Oral, BID MEALS, First dose on Fri05/24/22 at 0800, Until Discontinu ed, Routine [facility] NaCl 0.9% (NS) IV infusion 1,000 mL 05-24 01:30: 00 Yes 1000mL at 75 mL/hr, IV Infusion, CONTINUOUS , Starting on Fri05/23/22 at 2030, Until Discontinu ed, Routine [facility] sennosides- docusate sodium (SENOKOT-S) 8.6-50 mg per tablet 1 tablet 05-24 01:00: 00 Yes 1{tbl} 1 tablet, Oral, BID, First dose on Fri05/23/22 at 2000, Until Discontinu ed, Routine [facility] enoxaparin (LOVENOX) injection 90 mg 05-24 01:00: 00 Yes 1mg/kg 90 mg (rounded from 93 mg = 1 mg/kg ?93 kg), Subcutaneo us, Q12H, First dose (after last modificati on) on Fri05/23/22 at 2000, Until Discontinu ed, Routine [facility] nicotine (NICODERM) 21 mg/24 hr patch 1 Patch 05-24 00:45: 00 Yes 1{patch } 1 Patch, Topical, Administer over 24 Hours, Q24H, First dose on Fri05/23/22 at 1945, Until Discontinu ed, Routine [facility] hydrOXYzine 10 mg tablet 05-24 00:00: 00 06-24 04:59 :00 No [id number] 10mg Take 1 tablet by mouth every 6 (six) hours as needed for Anxiety for up to 30 days. [facility] enoxaparin (LOVENOX) injection 40 mg 05-23 22:00: 00 05-23 23:48 :16 No 40mg 40 mg, Subcutaneo us, DAILY, First dose on Fri05/23/22 at 1700, Until Discontinu ed, Routine [facility] ondansetron (ZOFRAN (PF)) injection 4 mg 05-23 19:56: 03 Yes 4mg 4 mg, Slow IV Push, Q6HPRN, Starting on Fri05/23/22 at 1456, Until Discontinu ed, Routine, Nausea and Vomiting (N/V) [facility] HYDROcodone -acetaminop hen (NORCO 5) 5-325 mg tablet 1 tablet 05-23 19:55: 52 05-25 19:54 :52 No 1{tbl} 1 tablet, Oral, Q6HPRN, Starting on Nohemy 05/23/22 at 1455, Until 05/25/22 at 1454, Routine, Pain (scale 4-6) [facility] acetaminoph en (TYLENOL) tablet 650 mg 05-23 19:55: 49 Yes 650mg 650 mg, Oral, Q6HPRN, Starting on Fri05/23/22 at 1455, Until Discontinu ed, Routine, Pain (scale 1-3) [facility] NaCl 0.9% (NS) bolus infusion 1,000 mL 05-23 18:45: 00 05-23 22:25 :22 No 1000mL at 999 mL/hr, 1,000 mL, IV Infusion, ONCE, 1 dose, On Fri05/23/22 at 1345, [facility] NaCl 0.9% (NS) bolus infusion 1,000 mL 05-23 15:15: 00 05-23 18:21 :00 No 1000mL at 999 mL/hr, 1,000 mL, IV Infusion, ONCE, 1 dose, On Nohemy 05/23/22 at 1015, VANNA [facility] LORazepam (ATIVAN) injection 1 mg 05-23 13:30: 00 05-23 13:45 :00 No 1mg 1 mg, Slow IV Push, ONCE, 1 dose, On Nohemy 05/23/22 at 0830, STAT
Is the medication being used for status epilepticu s? No [facility] Eszopiclone 1 MG Eszopiclone 1 MG 01-22 00:00: 00 No 1{table t_immed iately_ before_ bedtime } QD Eszopiclon e 1 MG Eszopiclone 1 MG Eszopiclone 1 MG 01-22 00:00: 00 No 1{table t_immed iately_ before_ bedtime } QD Eszopiclon e 1 MG Zolpidem Tartrate 5 MG Zolpidem Tartrate 5 MG 01-17 00:00: 00 No QD Zolpidem Tartrate 5 MG Kenalog (Triamcinol one) Kenalog (Triamcinol one) 2020-09 0 00:00: 00 No 40mg [facility] Kenalog (Triamcinol one) Kenalog (Triamcinol one) 2020-09 0 00:00: 00 No 40mg [facility] Kenalog (Triamcinol one) Kenalog (Triamcinol one) 2020-09 0 00:00: 00 No 40mg [facility] Kenalog (Triamcinol one) Kenalog (Triamcinol one) 2020-09 0 00:00: 00 No 40mg [facility] Kenalog (Triamcinol one) Kenalog (Triamcinol one) 2020-09 0- 00:00: 00 No 40mg [facility] Kenalog (Triamcinol one) Kenalog (Triamcinol one) 2020-09 0- 00:00: 00 No [facility] Kenalog (Triamcinol one) Kenalog (Triamcinol one) 2020-09 0-13 00:00: 00 No 40mg [facility] Kenalog (Triamcinol one) Kenalog (Triamcinol one) 2020-09 0-13 00:00: 00 No 40mg [facility] Kenalog (Triamcinol one) Kenalog (Triamcinol one) 2020-09 0- 00:00: 00 No 40mg [facility] Kenalog (Triamcinol one) Kenalog (Triamcinol one) 2020-09 0 00:00: 00 No 40mg [facility] Kenalog (Triamcinol one) Kenalog (Triamcinol one) 2020-09 0- 00:00: 00 No 40mg [facility] Kenalog (Triamcinol one) Kenalog (Triamcinol one) 2020-09 0 00:00: 00 No 40mg [facility] Kenalog (Triamcinol one) Kenalog (Triamcinol one) 2020-09 0 00:00: 00 No 40mg [facility] Kenalog (Triamcinol one) Kenalog (Triamcinol one) 2020-09 0 00:00: 00 No 40mg [facility] Kenalog (Triamcinol one) Kenalog (Triamcinol one) 2020-09 0-13 00:00: 00 No 40mg [facility] Kenalog (Triamcinol one) Kenalog (Triamcinol one) 2020-09 0-13 00:00: 00 No 40mg [facility] Kenalog (Triamcinol one) Kenalog (Triamcinol one) 2020-09 0-13 00:00: 00 No 40mg [facility] Kenalog (Triamcinol one) Kenalog (Triamcinol one) 2020-09 0-13 00:00: 00 No 40mg [facility] Kenalog (Triamcinol one) Kenalog (Triamcinol one) 2020-09 0-13 00:00: 00 No 40mg [facility] Kenalog (Triamcinol one) Kenalog (Triamcinol one) 2020-09 0-13 00:00: 00 No 40mg [facility] Kenalog (Triamcinol one) Kenalog (Triamcinol one) 2020-09 0-13 00:00: 00 No 40mg [facility] Kenalog (Triamcinol one) Kenalog (Triamcinol one) 2020-09 0 00:00: 00 No 40mg [facility] Kenalog (Triamcinol one) Kenalog (Triamcinol one) 2020-09 0 00:00: 00 No 40mg [facility] Kenalog (Triamcinol one) Kenalog (Triamcinol one) 2020-09 0- 00:00: 00 No 40mg [facility] Kenalog (Triamcinol one) Kenalog (Triamcinol one) 2020-09 0 00:00: 00 No 40mg [facility] Kenalog (Triamcinol one) Kenalog (Triamcinol one) 2020-09 0- 00:00: 00 No 40mg [facility] Kenalog (Triamcinol one) Kenalog (Triamcinol one) 2020-09 0-13 00:00: 00 No 40mg [facility] Kenalog (Triamcinol one) Kenalog (Triamcinol one) 2020-09 0-13 00:00: 00 No 40mg [facility] Kenalog (Triamcinol one) Kenalog (Triamcinol one) 2020-09 0-13 00:00: 00 No 40mg [facility] Kenalog (Triamcinol one) Kenalog (Triamcinol one) 2020-09 0-13 00:00: 00 No [facility] - [facility] Kenalog (Triamcinol one) Kenalog (Triamcinol one) 2020-09 0-13 00:00: 00 No 40[facility] Kenalog (Triamcinol one) Kenalog (Triamcinol one) 2020-09 0-13 00:00: 00 No 40mg [facility] Kenalog (Triamcinol one) Kenalog (Triamcinol one) 2020-09 0-13 00:00: 00 No 40mg [facility] Kenalog (Triamcinol one) Kenalog (Triamcinol one) 2020-09 0-13 00:00: 00 No 40mg [facility] Kenalog (Triamcinol one) Kenalog (Triamcinol one) 2020-09 0- 00:00: 00 No 40mg [facility] Kenalog (Triamcinol one) Kenalog (Triamcinol one) 2020-09 0- 00:00: 00 No 40mg [facility] Kenalog (Triamcinol one) Kenalog (Triamcinol one) 2020-09 0 00:00: 00 No 40mg [facility] Kenalog (Triamcinol one) Kenalog (Triamcinol one) 2020-09 0-13 00:00: 00 No 40mg [facility] Kenalog (Triamcinol one) Kenalog (Triamcinol one) 2020-09 0-13 00:00: 00 No 40mg [facility] Kenalog (Triamcinol one) Kenalog (Triamcinol one) 2020-09 0-13 00:00: 00 No 40mg [facility] Kenalog (Triamcinol one) Kenalog (Triamcinol one) 2020-09 0-13 00:00: 00 No 40mg [facility] Kenalog (Triamcinol one) Kenalog (Triamcinol one) 2020-09 0-13 00:00: 00 No 40mg [facility] Kenalog (Triamcinol one) Kenalog (Triamcinol one) 2020-09 0-13 00:00: 00 No 40mg [facility] Kenalog (Triamcinol one) Kenalog (Triamcinol one) 2020-09 0-13 00:00: 00 No 40mg [facility] Kenalog (Triamcinol one) Kenalog (Triamcinol one) 2020-09 0-13 00:00: 00 No 40mg [facility] Kenalog (Triamcinol one) Kenalog (Triamcinol one) 2020-09 0-13 00:00: 00 No 40mg [facility] Kenalog (Triamcinol one) Kenalog (Triamcinol one) 2020-09 0-13 00:00: 00 No 40mg [facility] Kenalog (Triamcinol one) Kenalog (Triamcinol one) 2020-09 0-13 00:00: 00 No 40mg [facility] Kenalog (Triamcinol one) Kenalog (Triamcinol one) 2020-09 0- 00:00: 00 No 40[facility] Benzonatate 200 MG Benzonatate 200 MG 2020-09 0- 00:00: 00 07-21 00:00 :00 No 1{capsu le} TID Benzonatat e 200 MG Kenalog (Triamcinol one) Kenalog (Triamcinol one) 06-26 00:00: 00 No 40mg [facility] Bupivicaine [place] Bupivicaine [place] 06-26 00:00: 00 No 2.5mg [facility] Kenalog (Triamcinol one) Kenalog (Triamcinol one) 9 00:00: 00 No 40mg [facility] Bupivicaine [place] Bupivicaine [place] 06-26 00:00: 00 No 2.5mg [facility] Kenalog (Triamcinol one) Kenalog (Triamcinol one) 06-26 00:00: 00 No 40mg [facility] Bupivicaine [place] Bupivicaine [place] 0 06-26 00:00: 00 No 2.5mg [facility] Kenalog (Triamcinol one) Kenalog (Triamcinol one) 06-26 00:00: 00 No 40mg [facility] Bupivicaine [place] Bupivicaine [place] 0 06-26 00:00: 00 No 2.5mg [facility] Kenalog (Triamcinol one) Kenalog (Triamcinol one) 06-26 00:00: 00 No 40mg [facility] Bupivicaine [place] Bupivicaine [place] 06-26 00:00: 00 No 2.5mg [facility] Kenalog (Triamcinol one) Kenalog (Triamcinol one) 06-26 00:00: 00 No 40mg [facility] Bupivicaine [place] Bupivicaine [place] 06-26 00:00: 00 No 2.5mg [facility] Kenalog (Triamcinol one) Kenalog (Triamcinol one) 06-26 00:00: 00 No 40mg [facility] Bupivicaine [place] Bupivicaine [place] 0 06-26 00:00: 00 No 2.5mg [facility] Kenalog (Triamcinol one) Kenalog (Triamcinol one) 0 06-26 00:00: 00 No 40mg [facility] Bupivicaine [place] Bupivicaine [place] 0 06-26 00:00: 00 No 2.5mg [facility] Kenalog (Triamcinol one) Kenalog (Triamcinol one) 06-26 00:00: 00 No 40mg [facility] Bupivicaine [place] Bupivicaine [place] 06-26 00:00: 00 No 2.5mg [facility] Kenalog (Triamcinol one) Kenalog (Triamcinol one) 06-26 00:00: 00 No 40mg [facility] Bupivicaine [place] Bupivicaine [place] 06-26 00:00: 00 No 2.5mg [facility] Kenalog (Triamcinol one) Kenalog (Triamcinol one) 06-26 00:00: 00 No 40mg [facility] Bupivicaine [place] Bupivicaine [place] 06-26 00:00: 00 No 2.5mg [facility] Kenalog (Triamcinol one) Kenalog (Triamcinol one) 06-26 00:00: 00 No 40mg [facility] Bupivicaine [place] Bupivicaine [place] 06-26 00:00: 00 No 2.5mg [facility] Kenalog (Triamcinol one) Kenalog (Triamcinol one) 06-26 00:00: 00 No 40mg [facility] Bupivicaine [place] Bupivicaine [place] 0 06-26 00:00: 00 No 2.5mg [facility] Kenalog (Triamcinol one) Kenalog (Triamcinol one) 0 06-26 00:00: 00 No 40mg [facility] Bupivicaine [place] Bupivicaine [place] 0 06-26 00:00: 00 No 2.5mg [facility] Kenalog (Triamcinol one) Kenalog (Triamcinol one) 06-26 00:00: 00 No 40mg [facility] Bupivicaine [place] Bupivicaine [place] 0 06-26 00:00: 00 No 2.5mg [facility] Kenalog (Triamcinol one) Kenalog (Triamcinol one) 06-26 00:00: 00 No 40mg [facility] Bupivicaine [place] Bupivicaine [place] 0 06-26 00:00: 00 No 2.5mg [facility] Kenalog (Triamcinol one) Kenalog (Triamcinol one) 06-26 00:00: 00 No 40mg [facility] Bupivicaine [place] Bupivicaine [place] 06-26 00:00: 00 No 2.5mg [facility] Kenalog (Triamcinol one) Kenalog (Triamcinol one) 06-26 00:00: 00 No 40mg [facility] Bupivicaine [place] Bupivicaine [place] 06-26 00:00: 00 No 2.5mg [facility] Kenalog (Triamcinol one) Kenalog (Triamcinol one) 06-26 00:00: 00 No 40mg [facility] Bupivicaine [place] Bupivicaine [place] 0 06-26 00:00: 00 No 2.5mg [facility] Kenalog (Triamcinol one) Kenalog (Triamcinol one) 06-26 00:00: 00 No 40mg [facility] Bupivicaine [place] Bupivicaine [place] 0 06-26 00:00: 00 No 2.5mg [facility] Kenalog (Triamcinol one) Kenalog (Triamcinol one) 0 06-26 00:00: 00 No 40mg [facility] Bupivicaine [place] Bupivicaine [place] 0 06-26 00:00: 00 No 2.5mg [facility] Kenalog (Triamcinol one) Kenalog (Triamcinol one) 06-26 00:00: 00 No 40mg [facility] Bupivicaine [place] Bupivicaine [place] 06-26 00:00: 00 No 2.5mg [facility] Kenalog (Triamcinol one) Kenalog (Triamcinol one) 06-26 00:00: 00 No 40mg [facility] Bupivicaine [place] Bupivicaine [place] 06-26 00:00: 00 No 2.5mg [facility] Kenalog (Triamcinol one) Kenalog (Triamcinol one) 06-26 00:00: 00 No 40mg [facility] Bupivicaine [place] Bupivicaine [place] 06-26 00:00: 00 No 2.5mg [facility] Kenalog (Triamcinol one) Kenalog (Triamcinol one) 06-26 00:00: 00 No 40mg [facility] Bupivicaine [place] Bupivicaine [place] 06-26 00:00: 00 No 2.5mg [facility] Kenalog (Triamcinol one) Kenalog (Triamcinol one) 06-26 00:00: 00 No 40mg [facility] Bupivicaine [place] Bupivicaine [place] 0 06-26 00:00: 00 No 2.5mg [facility] Kenalog (Triamcinol one) Kenalog (Triamcinol one) 06-26 00:00: 00 No 40mg [facility] Bupivicaine [place] Bupivicaine [place] 0 06-26 00:00: 00 No 2.5mg [facility] Kenalog (Triamcinol one) Kenalog (Triamcinol one) 06-26 00:00: 00 No 40mg [facility] Bupivicaine [place] Bupivicaine [place] 0 06-26 00:00: 00 No 2.5mg [facility] Kenalog (Triamcinol one) Kenalog (Triamcinol one) 0 06-26 00:00: 00 No 40mg [facility] Bupivicaine [place] Bupivicaine [place] 06-26 00:00: 00 No 2.5mg [facility] Kenalog (Triamcinol one) Kenalog (Triamcinol one) 0 06-26 00:00: 00 No 40mg [facility] Bupivicaine [place] Bupivicaine [place] 0 06-26 00:00: 00 No 2.5mg [facility] Kenalog (Triamcinol one) Kenalog (Triamcinol one) 06-26 00:00: 00 No 40mg [facility] Bupivicaine [place] Bupivicaine [place] 06-26 00:00: 00 No 2.5mg [facility] Kenalog (Triamcinol one) Kenalog (Triamcinol one) 0 06-26 00:00: 00 No 40mg [facility] Bupivicaine [place] Bupivicaine [place] 0 06-26 00:00: 00 No 2.5mg [facility] Kenalog (Triamcinol one) Kenalog (Triamcinol one) 0 06-26 00:00: 00 No 40mg [facility] Bupivicaine [place] Bupivicaine [place] 0 06-26 00:00: 00 No 2.5mg [facility] Kenalog (Triamcinol one) Kenalog (Triamcinol one) 0 06-26 00:00: 00 No 40mg [facility] Bupivicaine [place] Bupivicaine [place] 0 06-26 00:00: 00 No 2.5mg [facility] Kenalog (Triamcinol one) Kenalog (Triamcinol one) 0 06-26 00:00: 00 No 40mg [facility] Bupivicaine [place] Bupivicaine [place] 0 06-26 00:00: 00 No 2.5mg [facility] Kenalog (Triamcinol one) Kenalog (Triamcinol one) 0 06-26 00:00: 00 No 40mg [facility] Bupivicaine [place] Bupivicaine [place] 0 06-26 00:00: 00 No 2.5mg [facility] Kenalog (Triamcinol one) Kenalog (Triamcinol one) 0 06-26 00:00: 00 No 40mg [facility] Bupivicaine [place] Bupivicaine [place] 0 06-26 00:00: 00 No 2.5mg [facility] Bupivicaine [place] Bupivicaine [place] 0 06-26 00:00: 00 No 2.5mg [facility] Kenalog (Triamcinol one) Kenalog (Triamcinol one) 0 06-26 00:00: 00 No 40mg [facility] Bupivicaine [place] Bupivicaine [place] 0 06-26 00:00: 00 No 2.5mg [facility] Kenalog (Triamcinol one) Kenalog (Triamcinol one) 0 06-26 00:00: 00 No 40mg [facility] Bupivicaine [place] Bupivicaine [place] 0 06-26 00:00: 00 No 2.5mg [facility] Kenalog (Triamcinol one) Kenalog (Triamcinol one) 0 06-26 00:00: 00 No 40mg [facility] Bupivicaine [place] Bupivicaine [place] 06-26 00:00: 00 No 2.5mg [facility] Kenalog (Triamcinol one) Kenalog (Triamcinol one) 06-26 00:00: 00 No 40mg [facility] Bupivicaine [place] Bupivicaine [place] 06-26 00:00: 00 No 2.5mg [facility] Kenalog (Triamcinol one) Kenalog (Triamcinol one) 06-26 00:00: 00 No 40mg [facility] Bupivicaine [place] Bupivicaine [place] 06-26 00:00: 00 No 2.5mg [facility] Kenalog (Triamcinol one) Kenalog (Triamcinol one) 06-26 00:00: 00 No 40mg [facility] Bupivicaine [place] Bupivicaine [place] 06-26 00:00: 00 No 2.5mg [facility] Kenalog (Triamcinol one) Kenalog (Triamcinol one) 06-26 00:00: 00 No 40mg [facility] Bupivicaine [place] Bupivicaine [place] 06-26 00:00: 00 No 2.5mg [facility] Kenalog (Triamcinol one) Kenalog (Triamcinol one) 06-26 00:00: 00 No 40mg [facility] Bupivicaine [place] Bupivicaine [place] 0 06-26 00:00: 00 No 2.5mg [facility] Kenalog (Triamcinol one) Kenalog (Triamcinol one) 06-26 00:00: 00 No 40mg [facility] Kenalog (Triamcinol one) Kenalog (Triamcinol one) 06-26 00:00: 00 No 40mg [facility] Bupivicaine [place] Bupivicaine [place] 06-26 00:00: 00 No 2.5mg [facility] Kenalog (Triamcinol one) Kenalog (Triamcinol one) 0 06-26 00:00: 00 No 40mg [facility] Bupivicaine [place] Bupivicaine [place] 06-26 00:00: 00 No 2.5mg [facility] Kenalog (Triamcinol one) Kenalog (Triamcinol one) 0 06-26 00:00: 00 No 40mg [facility] Bupivicaine [place] Bupivicaine [place] 06-26 00:00: 00 No 2.5mg [facility] traMADol HCl 50 MG traMADol HCl 50 MG 06-26 00:00: 00 07-03 00:00 :00 No 1{table t_as_ne eded} traMADol HCl 50 MG Bupivicaine [place] Bupivicaine [place] 05-22 00:00: 00 No 2.5mg [facility] Kenalog (Triamcinol one) Kenalog (Triamcinol one) 0 05-22 00:00: 00 No 40mg [facility] Bupivicaine [place] Bupivicaine [place] 0 05-22 00:00: 00 No 2.5mg [facility] Kenalog (Triamcinol one) Kenalog (Triamcinol one) 0 05-22 00:00: 00 No 40mg [facility] Bupivicaine [place] Bupivicaine [place] 0 05-22 00:00: 00 No 2.5mg [facility] Kenalog (Triamcinol one) Kenalog (Triamcinol one) 0 05-22 00:00: 00 No 40mg [facility] Bupivicaine [place] Bupivicaine [place] 0 05-22 00:00: 00 No 2.5mg [facility] Kenalog (Triamcinol one) Kenalog (Triamcinol one) 0 05-22 00:00: 00 No 40mg [facility] Bupivicaine [place] Bupivicaine [place] 0 05-22 00:00: 00 No 2.5mg [facility] Kenalog (Triamcinol one) Kenalog (Triamcinol one) 0 05-22 00:00: 00 No 40mg [facility] Bupivicaine [place] Bupivicaine [place] 0 05-22 00:00: 00 No 2.5mg [facility] Kenalog (Triamcinol one) Kenalog (Triamcinol one) 0 05-22 00:00: 00 No 40mg [facility] Bupivicaine [place] Bupivicaine [place] 0 05-22 00:00: 00 No 2.5mg [facility] Kenalog (Triamcinol one) Kenalog (Triamcinol one) 0 05-22 00:00: 00 No 40mg [facility] Bupivicaine [place] Bupivicaine [place] 2020-0 05-22 00:00: 00 No 2.5mg [facility] Kenalog (Triamcinol one) Kenalog (Triamcinol one) 0 05-22 00:00: 00 No 40mg [facility] Bupivicaine [place] Bupivicaine [place] 2020-0 05-22 00:00: 00 No 2.5mg [facility] Kenalog (Triamcinol one) Kenalog (Triamcinol one) 0 05-22 00:00: 00 No 40mg [facility] Bupivicaine [place] Bupivicaine [place] 2020-0 05-22 00:00: 00 No 2.5mg [facility] Kenalog (Triamcinol one) Kenalog (Triamcinol one) 0 05-22 00:00: 00 No 40mg [facility] Bupivicaine [place] Bupivicaine [place] 0 05-22 00:00: 00 No 2.5mg [facility] Kenalog (Triamcinol one) Kenalog (Triamcinol one) 0 8 00:00: 00 No 40mg [facility] Bupivicaine [place] Bupivicaine [place] 0 05-22 00:00: 00 No 2.5mg [facility] Kenalog (Triamcinol one) Kenalog (Triamcinol one) 0 05-22 00:00: 00 No 40mg [facility] Bupivicaine [place] Bupivicaine [place] 0 05-22 00:00: 00 No 2.5mg [facility] Kenalog (Triamcinol one) Kenalog (Triamcinol one) 0 05-22 00:00: 00 No 40mg [facility] Bupivicaine [place] Bupivicaine [place] 0 05-22 00:00: 00 No 2.5mg [facility] Kenalog (Triamcinol one) Kenalog (Triamcinol one) 0 05-22 00:00: 00 No 40mg [facility] Bupivicaine [place] Bupivicaine [place] 0 05-22 00:00: 00 No 2.5mg [facility] Kenalog (Triamcinol one) Kenalog (Triamcinol one) 0 05-22 00:00: 00 No 40mg [facility] Bupivicaine [place] Bupivicaine [place] 0 05-22 00:00: 00 No 2.5mg [facility] Kenalog (Triamcinol one) Kenalog (Triamcinol one) 0 8 00:00: 00 No 40mg [facility] Bupivicaine [place] Bupivicaine [place] 0 05-22 00:00: 00 No 2.5mg [facility] Kenalog (Triamcinol one) Kenalog (Triamcinol one) 0 05-22 00:00: 00 No 40mg [facility] Bupivicaine [place] Bupivicaine [place] 0 05-22 00:00: 00 No 2.5mg [facility] Kenalog (Triamcinol one) Kenalog (Triamcinol one) 0 05-22 00:00: 00 No 40mg [facility] Bupivicaine [place] Bupivicaine [place] 0 05-22 00:00: 00 No 2.5mg [facility] Kenalog (Triamcinol one) Kenalog (Triamcinol one) 0 05-22 00:00: 00 No 40mg [facility] Bupivicaine [place] Bupivicaine [place] 0 05-22 00:00: 00 No 2.5mg [facility] Kenalog (Triamcinol one) Kenalog (Triamcinol one) 0 05-22 00:00: 00 No 40mg [facility] Bupivicaine [place] Bupivicaine [place] 0 05-22 00:00: 00 No 2.5mg [facility] Kenalog (Triamcinol one) Kenalog (Triamcinol one) 0 05-22 00:00: 00 No 40mg [facility] Bupivicaine [place] Bupivicaine [place] 2020-0 05-22 00:00: 00 No 2.5mg [facility] Kenalog (Triamcinol one) Kenalog (Triamcinol one) 0 05-22 00:00: 00 No 40mg [facility] Bupivicaine [place] Bupivicaine [place] 2020-0 05-22 00:00: 00 No 2.5mg [facility] Kenalog (Triamcinol one) Kenalog (Triamcinol one) 0 05-22 00:00: 00 No 40mg [facility] Bupivicaine [place] Bupivicaine [place] 0 05-22 00:00: 00 No 2.5mg [facility] Kenalog (Triamcinol one) Kenalog (Triamcinol one) 0 05-22 00:00: 00 No 40mg [facility] Bupivicaine [place] Bupivicaine [place] 0 05-22 00:00: 00 No 2.5mg [facility] Kenalog (Triamcinol one) Kenalog (Triamcinol one) 0 05-22 00:00: 00 No 40mg [facility] Bupivicaine [place] Bupivicaine [place] 0 05-22 00:00: 00 No 2.5mg [facility] Kenalog (Triamcinol one) Kenalog (Triamcinol one) 0 05-22 00:00: 00 No 40mg [facility] Bupivicaine [place] Bupivicaine [place] 0 05-22 00:00: 00 No 2.5mg [facility] Kenalog (Triamcinol one) Kenalog (Triamcinol one) 0 05-22 00:00: 00 No 40mg [facility] Bupivicaine [place] Bupivicaine [place] 0 05-22 00:00: 00 No 2.5mg [facility] Kenalog (Triamcinol one) Kenalog (Triamcinol one) 0 05-22 00:00: 00 No 40mg [facility] Bupivicaine [place] Bupivicaine [place] 2020-0 05-22 00:00: 00 No 2.5mg [facility] Kenalog (Triamcinol one) Kenalog (Triamcinol one) 0 05-22 00:00: 00 No 40mg [facility] Bupivicaine [place] Bupivicaine [place] 2020-0 05-22 00:00: 00 No 2.5mg [facility] Kenalog (Triamcinol one) Kenalog (Triamcinol one) 0 05-22 00:00: 00 No 40mg [facility] Bupivicaine [place] Bupivicaine [place] 2020-0 05-22 00:00: 00 No 2.5mg [facility] Kenalog (Triamcinol one) Kenalog (Triamcinol one) 0 05-22 00:00: 00 No 40mg [facility] Bupivicaine [place] Bupivicaine [place] 0 05-22 00:00: 00 No 2.5mg [facility] Kenalog (Triamcinol one) Kenalog (Triamcinol one) 0 05-22 00:00: 00 No 40mg [facility] Bupivicaine [place] Bupivicaine [place] 0 05-22 00:00: 00 No 2.5mg [facility] Kenalog (Triamcinol one) Kenalog (Triamcinol one) 0 05-22 00:00: 00 No 40mg [facility] Bupivicaine [place] Bupivicaine [place] 0 05-22 00:00: 00 No 2.5mg [facility] Kenalog (Triamcinol one) Kenalog (Triamcinol one) 0 05-22 00:00: 00 No 40mg [facility] Bupivicaine [place] Bupivicaine [place] 2020-0 05-22 00:00: 00 No 2.5mg [facility] Kenalog (Triamcinol one) Kenalog (Triamcinol one) 0 05-22 00:00: 00 No [facility]mg [facility] Bupivicaine [place] Bupivicaine [place] 2020-0 05-22 00:00: 00 No 2.5mg [facility] Kenalog (Triamcinol one) Kenalog (Triamcinol one) 0 05-22 00:00: 00 No 40mg [facility] Bupivicaine [place] Bupivicaine [place] 0 05-22 00:00: 00 No 2.5mg [facility] Kenalog (Triamcinol one) Kenalog (Triamcinol one) 05-22 00:00: 00 No 40mg [facility] Bupivicaine [place] Bupivicaine [place] 0 05-22 00:00: 00 No 2.5mg [facility] Kenalog (Triamcinol one) Kenalog (Triamcinol one) 05-22 00:00: 00 No 40mg [facility] Bupivicaine [place] Bupivicaine [place] 0 05-22 00:00: 00 No 2.5mg [facility] Kenalog (Triamcinol one) Kenalog (Triamcinol one) 0 05-22 00:00: 00 No 40mg [facility] Bupivicaine [place] Bupivicaine [place] 0 05-22 00:00: 00 No 2.5mg [facility] Kenalog (Triamcinol one) Kenalog (Triamcinol one) 0 05-22 00:00: 00 No 40mg [facility] Bupivicaine [place] Bupivicaine [place] 0 05-22 00:00: 00 No 2.5mg [facility] Kenalog (Triamcinol one) Kenalog (Triamcinol one) 0 05-22 00:00: 00 No 40mg [facility] Bupivicaine [place] Bupivicaine [place] 2020-0 05-22 00:00: 00 No 2.5mg [facility] Kenalog (Triamcinol one) Kenalog (Triamcinol one) 0 05-22 00:00: 00 No 40mg [facility] Bupivicaine [place] Bupivicaine [place] 0 05-22 00:00: 00 No 2.5mg [facility] Kenalog (Triamcinol one) Kenalog (Triamcinol one) 0 05-22 00:00: 00 No 40mg [facility] Bupivicaine [place] Bupivicaine [place] 0 05-22 00:00: 00 No 2.5mg [facility] Kenalog (Triamcinol one) Kenalog (Triamcinol one) 0 05-22 00:00: 00 No 40mg [facility] Bupivicaine [place] Bupivicaine [place] 0 05-22 00:00: 00 No 2.5mg [facility] Kenalog (Triamcinol one) Kenalog (Triamcinol one) 0 05-22 00:00: 00 No 40mg [facility] Bupivicaine [place] Bupivicaine [place] 0 05-22 00:00: 00 No 2.5mg [facility] Kenalog (Triamcinol one) Kenalog (Triamcinol one) 0 05-22 00:00: 00 No 40mg [facility] Bupivicaine [place] Bupivicaine [place] 2020-0 05-22 00:00: 00 No 2.5mg [facility] Kenalog (Triamcinol one) Kenalog (Triamcinol one) 0 05-22 00:00: 00 No 40mg [facility] Bupivicaine [place] Bupivicaine [place] 0 05-22 00:00: 00 No 2.5mg [facility] Kenalog (Triamcinol one) Kenalog (Triamcinol one) 0 05-22 00:00: 00 No 40mg [facility] Bupivicaine [place] Bupivicaine [place] 05-22 00:00: 00 No 2.5mg [facility] Kenalog (Triamcinol one) Kenalog (Triamcinol one) 05-22 00:00: 00 No 40mg [facility] atorvastati n 80 mg tablet 01-27 00:00: 00 Yes 80mg Take 1 tablet by mouth daily. [facility] pantoprazol e 40 mg EC tablet 01-27 00:00: 00 Yes 40mg Take 1 tablet by mouth daily. [facility] isosorbide mononitrate 30 mg 24 hr tablet 01-27 00:00: 00 Yes 30mg Take 1 tablet by mouth daily. [facility] aspirin 81 mg chewable tablet 01-26 00:00: 00 Yes 81mg Take 1 tablet by mouth daily. [facility] zolpidem 5 mg tablet 01-26 00:00: 00 05-24 00:00 :00 No 5mg Take 1 tablet by mouth at bedtime as needed for Insomnia. [facility] sulindac (CLINORIL) 200 mg tablet 05-13 00:00: 00 05-24 00:00 :00 No 200mg Take 1 tablet by mouth 2 (two) times daily. [facility] Lisinopril 2.5 MG Lisinopril 2.5 MG No Lisinopril 2.5 MG Rimegepant Sulfate 75 MG Rimegepant Sulfate 75 MG No 1{table t_on_ nely_karla e_and_a llow_to _dissol ve} QD Rimegepant Sulfate 75 MG Vitamin D3 125 MCG (5000 [...] MG No Atorvastat in Calcium 40 MG Lumateperon e Tosylate 10.5 MG Lumateperon e Tosylate 10.5 MG No 1{capsu le} QD Lumatepero ne Tosylate 10.5 MG Aspirin Adult Low Strength 81 MG [...] No 1{puff} QD Breo Ellipta 50-25 MCG/INH Folic Acid 1 MG Folic Acid 1 MG No Folic Acid 1 MG Meloxicam 15 MG Meloxicam 15 MG No 1{table t} QD Meloxicam 15 MG Eszopiclone 2 MG Eszopiclone 2 MG No 1{table t_immed iately_ before_ bedtime } QD Eszopiclon e 2 MG Ondansetron 4 MG Ondansetron 4 MG No 1{table t__ e_tongu e_and_a llow_to _dissol ve} QD Ondansetro n 4 MG Budesonide- Formoterol Fumarate 80-4.5 MCG/ACT Budesonide- Formoterol Fumarate 80-4.5 MCG/ACT No 1{puff_ as_need ed} 6xD Budesonide -Formotero l Fumarate 80-4.5 MCG/ACT Sertraline HCl 50 MG Sertraline HCl 50 MG No 1{table t} QD Sertraline HCl 50 MG HYDROcodone -Acetaminop hen 10-325 MG HYDROcodone -Acetaminop hen 10-325 MG No HYDROcodon e-Acetamin ophen 10-325 MG DULoxetine HCl 40 MG DULoxetine HCl 40 MG No 1{capsu le} QD DULoxetine HCl 40 MG Wixela Inhub 100-50 MCG/ACT Wixela Inhub 100-50 MCG/ACT No 1{puff} BID Wixela Inhub 100-50 MCG/ACT traMADol HCl 50 MG traMADol HCl 50 [...] MG Modafinil 200 MG No 1{table t_in_th e_josias ng} QD Modafinil 200 MG traMADol HCl [...] Kenalog (Triamcinolone) Kenalog (Triamcinolone) 2021-07-11 09:32:00 Completed [facility] Bupivicaine [place] Bupivicaine [place] 2021-06-26 09:38:00 Completed [facility] Kenalog (Triamcinolone) Kenalog (Triamcinolone) 2021-06-26 09:38:00 Completed [facility] Bupivicaine [place] Bupivicaine [place] 2021-06-26 09:38:00 Completed [facility] Kenalog (Triamcinolone) Kenalog (Triamcinolone) 2021-06-26 09:38:00 Completed [facility] Bupivicaine [place] Bupivicaine [place] 2021-06-26 09:38:00 Completed [facility] Kenalog (Triamcinolone) Kenalog (Triamcinolone) 2021-06-26 09:38:00 Completed [facility] Bupivicaine [place] Bupivicaine [place] 2021-06-26 09:38:00 Completed [facility] Kenalog (Triamcinolone) Kenalog (Triamcinolone) 2021-06-26 09:38:00 Completed [facility] Bupivicaine [place] Bupivicaine [place] 2021-05-22 08:55:00 Completed [facility] Kenalog (Triamcinolone) Kenalog (Triamcinolone) 2021-05-22 08:55:00 Completed [facility] Bupivicaine [place] Bupivicaine [place] 2021-05-22 08:55:00 Completed [facility] Kenalog (Triamcinolone) Kenalog (Triamcinolone) 2021-05-22 08:55:00 Completed [facility] Bupivicaine [place] Bupivicaine [place] 2021-05-22 08:55:00 Completed [facility] Kenalog (Triamcinolone) Kenalog (Triamcinolone) 2021-05-22 08:55:00 Completed [facility] Bupivicaine [place] Bupivicaine [place] 2021-05-22 08:55:00 Completed [facility] Kenalog (Triamcinolone) Kenalog (Triamcinolone) 2021-05-22 08:55:00 Completed [facility] Pneumococcal Polysaccharide, PPSV23 (PNEUMOVAX) 2018-01-26 00:00:00 Completed [facility] Pneumococcal Polysaccharide, PPSV23 (PNEUMOVAX) 2018-01-26 00:00:00 Completed [facility] Pneumococcal Polysaccharide, PPSV23 (PNEUMOVAX) 2018-01-26 00:00:00 Completed [facility] Pneumococcal Polysaccharide, PPSV23 (PNEUMOVAX) 2018-01-26 00:00:00 Completed [facility] Pneumococcal Polysaccharide, PPSV23 (PNEUMOVAX) 2018-01-26 00:00:00 Completed [facility] Pneumococcal Polysaccharide, PPSV23 (PNEUMOVAX) 2018-01-26 00:00:00 Completed [facility] Pneumococcal Polysaccharide, PPSV23 (PNEUMOVAX) 2018-01-26 00:00:00 Completed [facility] Adacel (Tdap) Adacel (Tdap) 2015-01-11 14:09:00 Completed [facility] Adacel (Tdap) Adacel (Tdap) 2015-01-11 14:09:00 Completed [facility] Adacel (Tdap) Adacel (Tdap) 2015-01-11 14:09:00 Completed [facility] Adacel (Tdap) Adacel (Tdap) 2015-01-11 14:09:00 Completed [facility] Adacel (Tdap) Adacel (Tdap) 2015-01-11 14:09:00 Completed [facility] Adacel (Tdap) Adacel (Tdap) 2015-01-11 14:09:00 Completed [facility] Adacel (Tdap) Adacel (Tdap) 2015-01-11 14:09:00 Completed [facility] Adacel (Tdap) Adacel (Tdap) 2015-01-11 14:09:00 Completed [facility] Adacel (Tdap) Adacel (Tdap) 2015-01-11 14:09:00 Completed [facility] Adacel (Tdap) Adacel (Tdap) 2015-01-11 14:09:00 Completed [facility] Adacel (Tdap) Adacel (Tdap) 2015-01-11 14:09:00 Completed [facility] Adacel (Tdap) Adacel (Tdap) 2015-01-11 14:09:00 Completed [facility] Adacel (Tdap) Adacel (Tdap) 2015-01-11 14:09:00 Completed [facility] Adacel (Tdap) Adacel (Tdap) 2015-01-11 14:09:00 Completed [facility] Adacel (Tdap) Adacel (Tdap) 2015-01-11 14:09:00 Completed [facility] Adacel (Tdap) Adacel (Tdap) 2015-01-11 14:09:00 Completed [facility] Adacel (Tdap) Adacel (Tdap) 2015-01-11 14:09:00 Completed [facility] Adacel (Tdap) Adacel (Tdap) 2015-01-11 14:09:00 Completed [facility] Adacel (Tdap) Adacel (Tdap) 2015-01-11 14:09:00 Completed [facility] Adacel (Tdap) Adacel (Tdap) 2015-01-11 14:09:00 Completed [facility] Adacel (Tdap) Adacel (Tdap) 2015-01-11 14:09:00 Completed [facility] Adacel (Tdap) Adacel (Tdap) 2015-01-11 14:09:00 Completed [facility] Adacel (Tdap) Adacel (Tdap) 2015-01-11 14:09:00 Completed [facility] Adacel (Tdap) Adacel (Tdap) 2015-01-11 14:09:00 Completed [facility] Adacel (Tdap) Adacel (Tdap) 2015-01-11 14:09:00 Completed [facility] Adacel (Tdap) Adacel (Tdap) Unknown Completed [facility] Adacel (Tdap) Adacel (Tdap) Unknown Completed [facility] Adacel (Tdap) Adacel (Tdap) Unknown Com[facility] Adacel (Tdap) Adacel (Tdap) Unknown Completed [facility] Adacel (Tdap) Adacel (Tdap) Unknown Completed [facility] Adacel (Tdap) Adacel (Tdap) Unknown Completed [facility] Adacel (Tdap) Adacel (Tdap) Unknown Completed [facility] Adacel (Tdap) Adacel (Tdap) Unknown Completed [facility] Adacel (Tdap) Adacel (Tdap) Unknown Completed [facility] Adacel (Tdap) Adacel (Tdap) Unknown Completed [facility] Adacel (Tdap) Adacel (Tdap) Unknown Completed [facility] Adacel (Tdap) Adacel (Tdap) Unknown Completed [facility] Adacel (Tdap) Adacel (Tdap) Unknown Completed [facility] Adacel (Tdap) Adacel (Tdap) Unknown Completed [facility] Adacel (Tdap) Adacel (Tdap) Unknown Completed [facility] Adacel (Tdap) Adacel (Tdap) Unknown Completed [facility] Adacel (Tdap) Adacel (Tdap) Unknown Completed [facility] Adacel (Tdap) Adacel (Tdap) Unknown Completed [facility] Adacel (Tdap) Adacel (Tdap) Unknown Completed [facility] Adacel (Tdap) Adacel (Tdap) Unknown Completed [facility] Adacel (Tdap) Adacel (Tdap) Unknown Completed [facility] Adacel (Tdap) Adacel (Tdap) Unknown Completed [facility] Adacel (Tdap) Adacel (Tdap) Unknown Completed [facility] Adacel (Tdap) Adacel (Tdap) Unknown Completed [facility] Adacel (Tdap) Adacel (Tdap) Unknown Completed [facility] Adacel (Tdap) Adacel (Tdap) Unknown Completed [facility] Adacel (Tdap) Adacel (Tdap) Unknown Completed [facility] Adacel (Tdap) Adacel (Tdap) Unknown Completed [facility] Adacel (Tdap) Adacel (Tdap) Unknown Completed [facility] Prevnar 20 (PCV20) Prevnar 20 (PCV20) Unknown Completed [facility] Adacel (Tdap) Adacel (Tdap) Unknown Completed [facility] Prevnar 20 (PCV20) Prevnar 20 (PCV20) Unknown Completed [facility] Adacel (Tdap) Adacel (Tdap) Unknown Completed [facility] Prevnar 20 (PCV20) Prevnar 20 (PCV20) Unknown Completed [facility] Adacel (Tdap) Adacel (Tdap) Unknown Completed [facility] Prevnar 20 (PCV20) Prevnar 20 (PCV20) Unknown Completed [facility] Adacel (Tdap) Adacel (Tdap) Unknown Completed [facility] Prevnar 20 (PCV20) Prevnar 20 (PCV20) Unknown Completed [facility] Adacel (Tdap) Adacel (Tdap) Unknown Completed [facility] Prevnar 20 (PCV20) Prevnar 20 (PCV20) Unknown Completed [facility] Adacel (Tdap) Adacel (Tdap) Unknown Completed [facility] Prevnar 20 (PCV20) Prevnar 20 (PCV20) Unknown Completed [facility] Adacel (Tdap) Adacel (Tdap) Unknown Completed [facility] Prevnar 20 (PCV20) Prevnar 20 (PCV20) Unknown Completed [facility] Adacel (Tdap) Adacel (Tdap) Unknown Completed [facility] Prevnar 20 (PCV20) Prevnar 20 (PCV20) Unknown Completed [facility] Adacel (Tdap) Adacel (Tdap) Unknown Completed [facility] Prevnar 20 (PCV20) Prevnar 20 (PCV20) Unknown Completed [facility] Adacel (Tdap) Adacel (Tdap) Unknown Completed [facility] Prevnar 20 (PCV20) Prevnar 20 (PCV20) Unknown Completed [facility] Adacel (Tdap) Adacel (Tdap) Unknown Completed [facility] Prevnar 20 (PCV20) Prevnar 20 (PCV20) Unknown Completed [facility] Adacel (Tdap) Adacel (Tdap) Unknown Completed [facility] Prevnar 20 (PCV20) Prevnar 20 (PCV20) Unknown Completed [facility] Adacel (Tdap) Adacel (Tdap) Unknown Completed [facility] Prevnar 20 (PCV20) Prevnar 20 (PCV20) Unknown Completed [facility] Adacel (Tdap) Adacel (Tdap) Unknown Completed [facility] Prevnar 20 (PCV20) Prevnar 20 (PCV20) Unknown Completed [facility] Adacel (Tdap) Adacel (Tdap) Unknown Completed [facility] Prevnar 20 (PCV20) Prevnar 20 (PCV20) Unknown Completed [facility] Adacel (Tdap) Adacel (Tdap) Unknown Completed [facility] Prevnar 20 (PCV20) Prevnar 20 (PCV20) Unknown Completed [facility] Adacel (Tdap) Adacel (Tdap) Unknown Completed [facility] Prevnar 20 (PCV20) Prevnar 20 (PCV20) Unknown Completed [facility] Adacel (Tdap) Adacel (Tdap) Unknown Completed [facility] Prevnar 20 (PCV20) Prevnar 20 (PCV20) Unknown Completed [facility] Adacel (Tdap) Adacel (Tdap) Unknown Completed [facility] Prevnar 20 (PCV20) Prevnar 20 (PCV20) Unknown Completed [facility] Adacel (Tdap) Adacel (Tdap) Unknown Completed [facility] Prevnar 20 (PCV20) Prevnar 20 (PCV20) Unknown Completed [facility] Adacel (Tdap) Adacel (Tdap) Unknown Completed [facility] Prevnar 20 (PCV20) Prevnar 20 (PCV20) Unknown Completed [facility] Adacel (Tdap) Adacel (Tdap) Unknown Completed Co [facility] Prevnar 20 (PCV20) Prevnar 20 (PCV20) Unknown Completed [facility] Adacel (Tdap) Adacel (Tdap) Unknown Completed Co [facility] Prevnar 20 (PCV20) Prevnar 20 (PCV20) Unknown Completed [facility] Adacel (Tdap) Adacel (Tdap) Unknown Completed [facility] Prevnar 20 (PCV20) Prevnar 20 (PCV20) Unknown Completed [facility] Adacel (Tdap) Adacel (Tdap) Unknown Completed [facility] Adacel (Tdap) Adacel (Tdap) Unknown Completed [facility] Adacel (Tdap) Adacel (Tdap) Unknown Completed [facility] Adacel (Tdap) Adacel (Tdap) Unknown Completed Co [facility] Vital Signs Vital Name Observation Time Observation Value Comments S ource height 2024-01-29 15:00:00 66 [in_i] Commo n [facility] weight 2024-01-29 15:00:00 193 [lb_av] Comm on [facility] temperature 2024-01-29 15:00:00 98.0 [degF] Com [facility] bmi 2024-01-29 15:00:00 31.15 kg/m2 Comm on [facility] blood pressure systolic 2024-01-29 15:00:00 136 mm[Hg] [facility] pressure diastolic 2024-01-29 15:00:00 84 mm[Hg] [facility] height 2024-01-27 10:00:00 66 [in_i] Commo n [facility] weight 2024-01-27 10:00:00 190 [lb_av] Comm on [facility] temperature 2024-01-27 10:00:00 98.4 [degF] Com [facility] bmi 2024-01-27 10:00:00 30.66 kg/m2 Comm on [facility] oximetry 2024-01-27 10:00:00 96 % Commo n [facility] respiratory rate 2024-01-27 10:00:00 18 /min [facility] blood pressure systolic 2024-01-27 10:00:00 127 mm[Hg] [facility] blood pressure diastolic 2024-01-27 10:00:00 79 mm[Hg] [facility] height 2024-01-15 08:00:00 66 [in_i] Commo n [facility] weight 2024-01-15 08:00:00 196 [lb_av] Comm on [facility] temperature 2024-01-15 08:00:00 98 [degF] Comm on [facility] bmi 2024-01-15 08:00:00 31.63 kg/m2 Comm on [facility] oximetry 2024-01-15 08:00:00 96 % Commo n [facility] respiratory rate 2024-01-15 08:00:00 16 /min [facility] blood pressure systolic 2024-01-15 08:00:00 122 mm[Hg] Common [facility] blood pressure diastolic 2024-01-15 08:00:00 71 mm[Hg] [facility] height 2023-12-10 15:00:00 66 [in_i] Commo n [facility] weight 2023-12-10 15:00:00 193 [lb_av] Comm on [facility] temperature 2023-12-10 15:00:00 99.2 [degF] Com mon [facility] bmi 2023-12-10 15:00:00 31.15 kg/m2 Comm on [facility] oximetry 2023-12-10 15:00:00 97 % Commo n [facility] respiratory rate 2023-12-10 15:00:00 16 /min [facility] blood pressure systolic 2023-12-10 15:00:00 142 mm[Hg] [facility] pressure diastolic 2023-12-10 15:00:00 98 mm[Hg] [facility] height 2023-12-10 15:00:00 66 [in_i] Commo n [facility] weight 2023-12-10 15:00:00 193 [lb_av] Comm on [facility] temperature 2023-12-10 15:00:00 99.2 [degF] Com mon [facility] bmi 2023-12-10 15:00:00 31.15 kg/m2 Comm on [facility] oximetry 2023-12-10 15:00:00 97 % Commo n [facility] respiratory rate 2023-12-10 15:00:00 16 /min [facility] blood pressure systolic 2023-12-10 15:00:00 142 mm[Hg] [facility] blood pressure diastolic 2023-12-10 15:00:00 98 mm[Hg] [facility] height 2023-11-03 16:20:00 66 [in_i] Commo n [facility] weight 2023-11-03 16:20:00 198.0 [lb_av] Co on [facility] temperature 2023-11-03 16:20:00 97.8 [degF] Com [facility] bmi 2023-11-03 16:20:00 31.95 kg/m2 Comm on [facility] oximetry 2023-11-03 16:20:00 95 % Commo n [facility] blood pressure systolic 2023-11-03 16:20:00 150 mm[Hg] [facility] blood pressure diastolic 2023-11-03 16:20:00 76 mm[Hg] Common [facility] height 2023-10-17 15:40:00 66 [in_i] Commo n [facility] weight 2023-10-17 15:40:00 198.4 [lb_av] Co on [facility] temperature 2023-10-17 15:40:00 98.3 [degF] Com mon [facility] bmi 2023-10-17 15:40:00 32.02 kg/m2 Comm on [facility] oximetry 2023-10-17 15:40:00 96 % Commo n [facility] respiratory rate 2023-10-17 15:40:00 18 /min [facility] blood pressure systolic 2023-10-17 15:40:00 148 mm[Hg] [facility] blood pressure diastolic 2023-10-17 15:40:00 90 mm[Hg] [facility] height 2023-09-16 09:00:00 66 [in_i] Commo n [facility] weight 2023-09-16 09:00:00 197 [lb_av] Comm on [facility] temperature 2023-09-16 09:00:00 98.1 [degF] Com mon [facility] bmi 2023-09-16 09:00:00 31.79 kg/m2 Comm on [facility] oximetry 2023-09-16 09:00:00 96 % Commo n [facility] respiratory rate 2023-09-16 09:00:00 17 /min Common [facility] blood pressure systolic 2023-09-16 09:00:00 160 mm[Hg] [facility] blood pressure diastolic 2023-09-16 09:00:00 90 mm[Hg] [facility] height 2023-07-08 15:20:00 66 [in_i] Commo [facility] [facility] 2023-07-08 15:20:00 197.6 [lb_av] Co mmon [facility] temperature 2023-07-08 15:20:00 97.2 [degF] Com [facility] bmi 2023-07-08 15:20:00 31.89 kg/m2 Comm on [facility] oximetry 2023-07-08 15:20:00 98 % Commo n [facility] respiratory rate 2023-07-08 15:20:00 16 /min [facility] blood pressure systolic 2023-07-08 15:20:00 138 mm[Hg] [facility] blood pressure diastolic 2023-07-08 15:20:00 76 mm[Hg] [facility] height 2023-05-15 08:00:00 66 [in_i] Commo n [facility] weight 2023-05-15 08:00:00 195 [lb_av] Comm on [facility] temperature 2023-05-15 08:00:00 97.3 [degF] Com [facility] bmi 2023-05-15 08:00:00 31.47 kg/m2 Comm on [facility] oximetry 2023-05-15 08:00:00 92 % [facility] respiratory rate 2023-05-15 08:00:00 16 /min Common [facility] blood pressure systolic 2023-05-15 08:00:00 132 mm[Hg] [facility] blood pressure diastolic 2023-05-15 08:00:00 70 mm[Hg] [facility] height 2023-02-12 16:00:00 66 [in_i] Commo n [facility] weight 2023-02-12 16:00:00 195.2 [lb_av] Co mmon [facility] temperature 2023-02-12 16:00:00 98.0 [degF] Com mon [facility] bmi 2023-02-12 16:00:00 31.5 kg/m2 Com[facility] oximetry 2023-02-12 16:00:00 95 % [facility] respiratory rate 2023-02-12 16:00:00 17 /min Common [facility] blood pressure systolic 2023-02-12 16:00:00 136 mm[Hg] Common [facility] blood pressure diastolic 2023-02-12 16:00:00 79 mm[Hg] [facility] Systolic blood pressure 2023-01-28 18:22:00 157 mm[Hg] [facility] Diastolic blood pressure 2023-01-28 18:22:00 96 mm[Hg] [facility] Heart rate 2023-01-28 18:22:00 78 /min [facility] Body temperature 2023-01-28 18:22:00 37.17 Shameka [facility] Respiratory rate 2023-01-28 18:22:00 18 /min [facility] Body weight 2023-01-28 18:22:00 83.915 kg [facility] BMI 2023-01-28 18:22:00 29.86 kg/m2 [facility] Oxygen saturation in Arterial blood by Pulse oximetry 2023-01-28 18:22:00 95 /min [facility] height 2023-01-27 08:30:00 66 [in_i] Commo n [facility] weight 2023-01-27 08:30:00 200 [lb_av] Comm on [facility] temperature 2023-01-27 08:30:00 97.8 [degF] Com mon [facility] bmi 2023-01-27 08:30:00 32.28 kg/m2 Comm on [facility] blood pressure systolic 2023-01-27 08:30:00 132 mm[Hg] Common [facility] blood pressure diastolic 2023-01-27 08:30:00 80 mm[Hg] Common [facility] height 2022-12-11 10:30:00 66 [in_i] Commo n [facility] weight 2022-12-11 10:30:00 198.5 [lb_av] Co mmon [facility] temperature 2022-12-11 10:30:00 97.2 [degF] Com [facility] bmi 2022-12-11 10:30:00 32.04 kg/m2 Comm on [facility] blood pressure systolic 2022-12-11 10:30:00 138 mm[Hg] Common [facility] blood pressure diastolic 2022-12-11 10:30:00 84 mm[Hg] Common [facility] height 2022-11-14 14:50:00 66 [in_i] Commo n [facility] weight 2022-11-14 14:50:00 200 [lb_av] Comm on [facility] temperature 2022-11-14 14:50:00 98.1 [degF] Com [facility] bmi 2022-11-14 14:50:00 32.28 kg/m2 Comm on [facility] oximetry 2022-11-14 14:50:00 98 % Commo n [facility] respiratory rate 2022-11-14 14:50:00 16 /min Common [facility] blood pressure systolic 2022-11-14 14:50:00 138 mm[Hg] [facility] blood pressure diastolic 2022-11-14 14:50:00 78 mm[Hg] [facility] height 2022-11-14 15:00:00 66 [in_i] Commo n [facility] weight 2022-11-14 15:00:00 200 [lb_av] Comm on [facility] temperature 2022-11-14 15:00:00 98.1 [degF] Com [facility] bmi 2022-11-14 15:00:00 32.28 kg/m2 Comm on [facility] oximetry 2022-11-14 15:00:00 98 % Commo n [facility] respiratory rate 2022-11-14 15:00:00 16 /min Common [facility] blood pressure systolic 2022-11-14 15:00:00 138 mm[Hg] [facility] blood pressure diastolic 2022-11-14 15:00:00 78 mm[Hg] [facility] height 2022-11-14 09:30:00 66 [in_i] Commo n [facility] weight 2022-11-14 09:30:00 200 [lb_av] Comm on [facility] temperature 2022-11-14 09:30:00 97.9 [degF] Com mon [facility] bmi 2022-11-14 09:30:00 32.28 kg/m2 Comm on [facility] blood pressure systolic 2022-11-14 09:30:00 132 mm[Hg] [facility] blood pressure diastolic 2022-11-14 09:30:00 80 mm[Hg] [facility] Systolic blood pressure 2022-10-20 12:25:00 125 mm[Hg] [facility] Diastolic blood pressure 2022-10-20 12:25:00 76 mm[Hg] [facility] Heart rate 2022-10-20 12:25:00 52 /min [facility] Respiratory rate 2022-10-20 12:25:00 14 /min [facility] Oxygen saturation in Arterial blood by Pulse oximetry 2022-10-20 12:25:00 93 /min [facility] Body temperature 2022-10-20 10:46:00 37.39 Shameka [facility] Body height 2022-10-20 10:46:00 167.6 cm [facility] Body weight 2022-10-20 10:46:00 85.7 kg [facility] BMI 2022-10-20 10:46:00 30.49 kg/m2 [facility] Systolic blood pressure 2022-08-30 20:50:00 92 mm[Hg] [facility] Diastolic blood pressure 2022-08-30 20:50:00 64 mm[Hg] [facility] Heart rate 2022-08-30 20:50:00 53 /min [facility] Respiratory rate 2022-08-30 20:50:00 20 /min [facility] Oxygen saturation in Arterial blood by Pulse oximetry 2022-08-30 20:50:00 94 /min [facility] Body temperature 2022-08-30 13:47:00 35.67 Shameka [facility] Body height 2022-08-30 13:47:00 175.3 cm [facility] Body weight 2022-08-30 13:47:00 92.987 kg [facility] BMI 2022-08-30 13:47:00 30.27 kg/m2 [facility] height 2022-07-31 14:40:00 66 [in_i] [facility] weight 2022-07-31 14:40:00 201.0 [lb_av] Co [facility]mon [facility] temperature 2022-07-31 14:40:00 98.2 [degF] Com mon [facility] bmi 2022-07-31 14:40:00 32.44 kg/m2 Comm on [facility] oximetry 2022-07-31 14:40:00 97 % Commo n [facility] respiratory rate 2022-07-31 14:40:00 17 /min Common [facility] blood pressure systolic 2022-07-31 14:40:00 135 mm[Hg] [facility] blood pressure diastolic 2022-07-31 14:40:00 72 mm[Hg] [facility] Systolic blood pressure 2022-05-24 20:23:00 112 mm[Hg] [facility] Diastolic blood pressure 2022-05-24 20:23:00 65 mm[Hg] [facility] Heart rate 2022-05-24 20:23:00 68 /min [facility] Body temperature 2022-05-24 20:23:00 35.83 Shameka [facility] Respiratory rate 2022-05-24 20:23:00 18 /min [facility] Oxygen saturation in Arterial blood by Pulse oximetry 2022-05-24 20:23:00 96 /min [facility] Body height 2022-05-23 19:38:00 175.3 cm [facility] Body weight 2022-05-23 19:38:00 92.987 kg [facility] BMI 2022-05-23 19:38:00 30.27 kg/m2 [facility] height 2022-04-18 10:00:00 66 [in_i] Commo n [facility] weight 2022-04-18 10:00:00 209.0 [lb_av] Co [facility]mon [facility] temperature 2022-04-18 10:00:00 98.1 [degF] Com mon [facility] bmi 2022-04-18 10:00:00 33.73 kg/m2 Comm on [facility] oximetry 2022-04-18 10:00:00 95 % Commo n [facility] respiratory rate 2022-04-18 10:00:00 16 /min Common [facility] blood pressure systolic 2022-04-18 10:00:00 132 mm[Hg] [facility] blood pressure diastolic 2022-04-18 10:00:00 73 mm[Hg] [facility] height 2022-04-04 11:10:00 66 [in_i] Commo n [facility] weight 2022-04-04 11:10:00 197 [lb_av] Comm on [facility] temperature 2022-04-04 11:10:00 98 [degF] Comm on [facility] bmi 2022-04-04 11:10:00 31.79 kg/m2 Comm on [facility] blood pressure systolic 2022-04-04 11:10:00 125 mm[Hg] [facility] blood pressure diastolic 2022-04-04 11:10:00 65 mm[Hg] [facility] height 2022-02-14 08:20:00 66 [in_i] Commo n [facility] weight 2022-02-14 08:20:00 197.3 [lb_av] Co mmon [facility] temperature 2022-02-14 08:20:00 97.3 [degF] Com mon [facility] bmi 2022-02-14 08:20:00 31.84 kg/m2 Comm on [facility] oximetry 2022-02-14 08:20:00 96 % Commo n [facility] respiratory rate 2022-02-14 08:20:00 16 /min [facility] blood pressure systolic 2022-02-14 08:20:00 114 mm[Hg] [facility] blood pressure diastolic 2022-02-14 08:20:00 62 mm[Hg] Common [facility] height 2022-01-17 08:10:00 66 [in_i] Commo n [facility] weight 2022-01-17 08:10:00 195.6 [lb_av] Co [facility] temperature 2022-01-17 08:10:00 98.3 [degF] Com mon [facility] bmi 2022-01-17 08:10:00 31.57 kg/m2 Comm on [facility] oximetry 2022-01-17 08:10:00 98 % Commo n [facility] respiratory rate 2022-01-17 08:10:00 17 /min [facility] blood pressure systolic 2022-01-17 08:10:00 133 mm[Hg] [facility] blood pressure diastolic 2022-01-17 08:10:00 72 mm[Hg] [facility] height 2021-10-16 08:20:00 66 [in_i] Commo n [facility] weight 2021-10-16 08:20:00 194.9 [lb_av] Co [facility] temperature 2021-10-16 08:20:00 98.2 [degF] Com [facility] bmi 2021-10-16 08:20:00 31.45 kg/m2 Comm on [facility] oximetry 2021-10-16 08:20:00 97 % Commo n [facility] respiratory rate 2021-10-16 08:20:00 17 /min [facility] height 2021-10-16 08:20:00 66 [in_i] Commo n [facility] weight 2021-10-16 08:20:00 194.9 [lb_av] Co [facility] temperature 2021-10-16 08:20:00 98.2 [degF] Com [facility] bmi 2021-10-16 08:20:00 31.45 kg/m2 Comm on [facility] oximetry 2021-10-16 08:20:00 97 % Commo n [facility] respiratory rate 2021-10-16 08:20:00 17 /min [facility] blood pressure systolic 2021-10-16 08:20:00 132 mm[Hg] [facility] blood pressure diastolic 2021-10-16 08:20:00 77 mm[Hg] [facility] height 2021-10-08 13:10:00 66 [in_i] Commo n [facility] weight 2021-10-08 13:10:00 195.3 [lb_av] Co [facility] temperature 2021-10-08 13:10:00 98.1 [degF] Com [facility] bmi 2021-10-08 13:10:00 31.52 kg/m2 Comm on [facility] oximetry 2021-10-08 13:10:00 97 % Commo n [facility] respiratory rate 2021-10-08 13:10:00 17 /min [facility] blood pressure systolic 2021-10-08 13:10:00 132 mm[Hg] [facility] blood pressure diastolic 2021-10-08 13:10:00 73 mm[Hg] [facility] height 2021-07-11 09:10:00 66 [in_i] Commo n [facility] weight 2021-07-11 09:10:00 185.1 [lb_av] Co [facility] temperature 2021-07-11 09:10:00 97.6 [degF] Com [facility] bmi 2021-07-11 09:10:00 29.87 kg/m2 Comm on [facility] oximetry 2021-07-11 09:10:00 96 % Commo n [facility] respiratory rate 2021-07-11 09:10:00 18 /min Common [facility] blood pressure systolic 2021-07-11 09:10:00 138 mm[Hg] [facility] blood pressure diastolic 2021-07-11 09:10:00 76 mm[Hg] [facility] Procedures Procedure Date / Time Performed Performing Clinician Source CONSENT/REFUSAL FOR DIAGNOSIS AND TREATMENT 2023-01-28 18:20:41 Doctor Unassigned, [place] [facility] URINALYSIS 2022-10-20 11:29:00 Singer Christen [facility] URINE DRUG (IMMUNOASSAY) - COMPREHENSIVE DRUG SCREEN W/O REFLEX 2022-10-20 11:29:00 Singer Christen [facility] XR CHEST 1 VW 2022-10-20 11:07:00 Singer [facility] COMP. METABOLIC PANEL (40063) 2022-10-20 11:04:[address] [facility] SALICYLATE 2022-10-20 11:04:00 Christen Obando [facility] ETHANOL 2022-10-20 11:04:00 Singer [facility] CBC WITH DIFF 2022-10-20 11:04:00 Obando [facility] BASIC METABOLIC PANEL (NA, K, CL, CO2, GLUCOSE, BUN, CREATININE, CA) 2022-08-30 17:22:00 Gertrude Chinchilla [facility] URINALYSIS 2022-08-30 14:21:00 [facility]UNO[facility]SAY[facility] - COMPREHENSIVE DRUG SCREEN W/O REFLEX 2022-08-30 14:21:00 Gertrude Chinchilla [facility] XR CHEST 1 VW 2022-08-30 14:04:16 [facility] MAGN[facility] 2022-08-30 14:03:00 [facility] TROPONIN [facility] 2022-08-30 14:03:00 Gertrude Chinchilla [facility] COMP. METABOLIC PANEL (75649) 2022-08-30 14:03:00 Gertrude Chinchilla [facility] ETHANOL 2022-08-30 14:03:00 Gertrude Chinchilla [facility] CBC WITH DIFF 2022-08-30 14:03:00 [facility]ST 1 VW 2022-05-24 11:38:14 Callie Cuellar [facility] MAGNESIUM 2022-05-24 08:56:00 Callie Cuellar [facility] TROPONIN I 2022-05-24 08:56:00 Callie Cuellar [facility] BASIC METABOLIC PANEL (NA, K, CL, CO2, GLUCOSE, BUN, CREATININE, CA) 2022-05-24 08:56:00 Callie Cuellar [facility] CBC WITH DIFF 2022-05-24 08:56:00 Callie Cuellar [facility] TROPONIN I 2022-05-24 03:51:00 Callie Cuellar [facility] XR KUB 2022-05-23 22:25:58 Callie Cuellar [facility] URINALYSIS 2022-05-23 22:15:00 Gertrude Chinchilla [facility] CREATININE, URINE RANDOM 2022-05-23 22:15:00 Vani Cuellar [facility] SODIUM, URINE RANDOM 2022-05-23 22:15:00 Callie Cuellar [facility] URINE DRUG (IMMUNOASSAY) - COMPREHENSIVE DRUG SCREEN W/O REFLEX 2022-05-23 22:15:00 Gertrude Chinchilla [facility] TRANSTHORACIC ECHO (TTE) COMPLETE 2022-05-23 20:33:00 Callie Cuellar [facility] COVID-19 (ID NOW RAPID TESTING) 2022-05-23 16:39:00 Gertrude Chinchilla [facility] LAB ONLY COVID INTERPRETATION 2022-05-23 16:39:00 Gertrude Chinchilla [facility] TROPONIN I 2022-05-23 13:42:00 Gertrude Chinchilla [facility] COMP. METABOLIC PANEL ([id number]) 2022-05-23 13:42:00 Gertrude Chinchilla [facility] CBC WITH DIFF 2022-05-23 13:42:00 Gertrude Chinchilla [facility] HB ECG ROUTINE & RHYTHM STRIP 2022-05-23 13:12:28 Gertrude Chinchilla [facility] EKG-12 LEAD 2022-05-23 12:44:00 Gertrude Chinchilla Un [facility] AUTHORIZATION FOR RELEASE OF PHI 2021-11-12 06:01:00 Doctor Unassigned, [place] [facility] Encounters Start Date/Time End Date/Time Encounter Type Admission Type Attending [facility] Care Facility Care Department Encounter ID Source 2024-02-02 14:25:00 Outpatient ElinaRosana armenta [facility] ST[facility] [id number] [facility] 2024-01-20 08:45:00 Outpatient TeofiloRosana STLMLC ST[facility] [id number] [facility] 2024-01-16 10:32:00 [facility] [id number] [facility] 2024-01-08 13:33:00 Outpatient CharlykaleighRosana armenta STLMLC STLMLC [id number] [facility] 2024-01-02 16:07:00 Outpatient TeofiloRosana STLMLC STL[facility]C [id number] [facility] 2023-12-11 12:59:00 Outpatient ElinaRosana armenta STLML[facility] ST[facility] [id number] [facility] 2023-12-10 09:50:00 Outpatient TeofiloRosana STLMLC STL[facility] [id number] [facility] 2023-12-09 09:09:00 Outpatient TeofiloRosana STLMLC STL[facility] [id number] [facility] 2023-10-28 10:03:00 Outpatient Rosana Red ST[facility] ST[facility] [id number] [facility] 2023-09-25 09:50:00 Outpatient Rosana Red ST[facility] ST[facility] [id number] [facility] 2023-09-15 10:25:00 Outpatient Rosana Red [facility] ST[facility] [id number] [facility] 2023-09-12 08:30:00 Outpatient Rosana Red ST[facility] ST[facility] [id number] [facility] 2023-08-15 09:11:00 Outpatient Rosana Red [facility] [id number] [facility] 2023-08-14 16:35:00 Outpatient Ross, Mahad STL[facility]C ST[facility] [id number] [facility] 2023-07-04 14:02:00 Outpatient Ross, Mahad [facility] ST[facility] [id number] [facility] 2023-06-05 14:42:00 Outpatient Ross, Mahad [facility] ST[facility] [id number] [facility] 2023-05-14 15:43:00 Outpatient Ross, Mahad [facility] ST[facility] [id number] [facility] 2023-05-09 14:32:00 Outpatient Ross, Mahad [facility] ST[facility] [id number] [facility] 2023-02-11 08:03:01 Outpatient Ross, Mahad [facility] ST[facility] [id number] [facility] 2022-12-02 14:44:00 Outpatient Ross, Mahad [facility] ST[facility] [id number] [facility] 2022-11-14 12:02:00 Outpatient Ross, Mahad [facility] ST[facility] [id number] [facility] 2022-11-12 10:39:01 Outpatient Ross, Mahad [facility] ST[facility] [id number] [facility] 2022-10-07 09:37:01 Outpatient Ross, Mahad [facility] ST[facility] [id number] [facility] 2022-10-04 16:32:01 Outpatient Ross, Mahad [facility] ST[facility] [id number] [facility] 2022-08-16 15:23:00 Outpatient Ross, Mahad [facility] ST[facility] [id number] [facility] 2022-07-31 14:32:00 Outpatient Ross, Mahad [facility] ST[facility] [id number] [facility] 2022-07-29 16:01:01 Outpatient Ross, Mahad [facility] ST[facility] [id number] [facility] 2022-07-19 16:30:01 Outpatient Ross, Mahad [facility] ST[facility] [id number] [facility] 2022-07-16 10:11:00 Outpatient Ross, Mahad [facility] [id number] [facility] 2022-06-25 14:39:00 Outpatient Ross, Mahad ST[facility] ST[facility] [id number] [facility] 2022-05-16 12:11:01 Outpatient Ross, Mahad [facility] ST[facility] [id number] [facility] 2021-10-24 13:24:10 Outpatient Ross, Mahad [facility] ST[facility] [id number] [facility] 2021-10-24 13:06:32 Outpatient Ross, Mahad [facility] ST[facility] [id number] [facility] 2021-10-24 12:40:59 Outpatient Ross, Mahad [facility] ST[facility] [id number] [facility] 2021-10-24 12:30:18 Outpatient Ross, Mahad [facility] ST[facility] [id number] [facility] 2021-10-24 12:29:04 Outpatient Ross, Mahad ST[facility] ST[facility] [id number] [facility] 2021-10-24 11:52:46 Outpatient Ross, Mahad [facility] ST[facility] [id number] [facility] 2021-10-24 11:44:17 Outpatient Ross, Mahad [facility] ST[facility] [id number] [facility] 2021-10-24 11:37:11 Outpatient Ross, Mahad [facility] ST[facility] [id number] [facility] 2021-07-28 05:50:12 Emergency [facility] [id number] [facility] 2024-02-04 00:00:00 2024-02-04 00:00:00 (TEL) STLMLC STLMLC [id number] [facility] 2024-02-02 00:00:00 2024-02-02 00:00:00 (TEL) STLMLC STLMLC [id number] [facility] 2024-01-29 00:00:00 2024-01-29 00:00:00 (F/U) Follow Up Visit STLMLC STLMLC [id number] [facility] 2024-01-28 00:00:00 2024-01-28 00:00:00 (TEL) STLMLC STLMLC [id number] [facility] 2024-01-28 00:00:00 2024-01-28 00:00:00 (TEL) STLMLC STLMLC [id number] [facility] 2024-01-28 00:00:00 2024-01-28 00:00:00 (TEL) STLMLC STLMLC [id number] [facility] 2024-01-27 00:00:00 2024-01-27 00:00:00 (HOSP F/U) Hospital Follow Up STLMLC STLMLC [id number] [facility] 2024-01-25 00:00:00 2024-01-25 00:00:00 (TEL) STLMLC STLMLC [id number] [facility] 2024-01-23 00:00:00 2024-01-23 00:00:00 (TEL) STLMLC STLMLC [id number] [facility] 2024-01-20 00:00:00 2024-01-20 00:00:00 (TEL) STLMLC STLMLC [id number] [facility] 2024-01-19 00:00:00 2024-01-19 00:00:00 (TEL) STLMLC STLMLC [id number] [facility] 2024-01-16 00:00:00 2024-01-16 00:00:00 (TEL) STLMLC STLMLC [id number] [facility] 2024-01-15 00:00:00 2024-01-15 00:00:00 OFFICE VISIT ESTAB PT LEVEL 4 STLMLC STLMLC [id number] [facility] 2024-01-15 00:00:00 2024-01-15 00:00:00 (TEL) STLMLC STLMLC [id number] [facility] 2024-01-15 00:00:00 2024-01-15 00:00:00 (TEL) STLMLC STLMLC [id number] [facility] 2024-01-14 00:00:00 2024-01-14 00:00:00 (TEL) STLMLC STLMLC [id number] [facility] 2024-01-02 00:00:00 2024-01-02 00:00:00 (TEL) STLMLC STLMLC [id number] [facility] 2023-12-30 00:00:00 2023-12-30 00:00:00 (TEL) STLMLC STLMLC [id number] [facility] 2023-12-17 00:00:00 2023-12-17 00:00:00 (TEL) STLMLC STLMLC [id number] [facility] 2023-12-12 00:00:00 2023-12-12 00:00:00 (TEL) STLMLC STLMLC [id number] [facility] 2023-12-11 00:00:00 2023-12-11 00:00:00 (TEL) STLMLC STLMLC [id number] [facility] 2023-12-10 00:00:00 2023-12-10 00:00:00 OFFICE VISIT ESTAB PT LEVEL 4 STL[facility]C STLMLC [id number] [facility] 2023-12-10 00:00:00 2023-12-10 00:00:00 SUB ANNUAL [facility] WELLNESS VISIT STLMLC STLMLC [id number] [facility] 2023-12-09 00:00:00 2023-12-09 00:00:00 (TEL) STLMLC STLMLC [id number] [facility] 2023-12-02 00:00:00 2023-12-02 00:00:00 (TEL) STLMLC STLMLC [id number] [facility] 2023-11-27 00:00:00 2023-11-27 00:00:00 (TEL) STLMLC STLMLC [id number] [facility] 2023-11-27 00:00:00 2023-11-27 00:00:00 (TEL) STLMLC STLMLC [id number] [facility] 2023-11-18 00:00:00 2023-11-18 00:00:00 (TEL) STLMLC STLMLC [id number] [facility] 2023-11-03 00:00:00 2023-11-03 00:00:00 (TEL) STLMLC STLMLC [id number] [facility] 2023-11-03 00:00:00 2023-11-03 00:00:00 OFFICE VISIT ESTAB PT LEVEL 4 STLMLC STLMLC [id number] [facility] 2023-10-17 00:00:00 2023-10-17 00:00:00 OFFICE VISIT ESTAB PT LEVEL 4 STLMLC STLMLC [id number] [facility] 2023-10-15 00:00:00 2023-10-15 00:00:00 (TEL) STLMLC STLMLC [id number] [facility] 2023-09-24 00:00:00 2023-09-24 00:00:00 (TEL) STLMLC STLMLC [id number] [facility] 2023-09-24 00:00:00 2023-09-24 00:00:00 (TEL) STLMLC STLMLC [id number] [facility] 2023-09-16 00:00:00 2023-09-16 00:00:00 OFFICE VISIT NEW PT LEVEL 4 STLMLC STLMLC [id number] [facility] 2023-08-14 00:00:00 2023-08-14 00:00:00 (TEL) STLMLC STLMLC [id number] [facility] 2023-07-08 00:00:00 2023-07-08 00:00:00 OFFICE VISIT ESTAB PT LEVEL 4 STLMLC STLMLC [id number] [facility] 2023-07-03 00:00:00 2023-07-03 00:00:00 (TEL) STLMLC STLMLC [id number] [facility] 2023-06-30 00:00:00 2023-06-30 00:00:00 (TEL) STLMLC STLMLC [id number] [facility] 2023-06-24 00:00:00 2023-06-24 00:00:00 (TEL) STLMLC STLMLC [id number] [facility] 2023-06-11 00:00:00 2023-06-11 00:00:00 (TEL) STLMLC STLMLC [id number] [facility] 2023-05-29 00:00:00 2023-05-29 00:00:00 (TEL) STLMLC STLMLC [id number] [facility] 2023-05-20 00:00:00 2023-05-20 00:00:00 (TEL) STLMLC STLMLC [id number] [facility] 2023-05-15 00:00:00 2023-05-15 00:00:00 OFFICE VISIT ESTAB PT LEVEL 4 STLMLC STLMLC [id number] [facility] 2023-04-25 00:00:00 2023-04-25 00:00:00 [place] [id number] [facility] 2023-04-25 00:00:00 2023-04-25 00:00:00 Outpatient [place] _B DMG DMG [id number] [facility] 2023-03-05 00:00:00 2023-03-05 00:00:00 (TEL) STLMLC STLMLC [id number] [facility] 2023-02-20 16:29:56 2023-02-20 16:29:56 Outpatient SFA [facility] [id number] Tim Lambert 2023-02-12 00:00:00 2023-02-12 00:00:00 OFFICE VISIT ESTAB PT LEVEL 4 STLMLC STLMLC [id number] [facility] 2023-02-12 00:00:00 2023-02-12 00:00:00 (TEL) STLMLC STLMLC [id number] [facility] 2023-01-31 00:00:00 2023-01-31 00:00:00 (TEL) STLMLC STLMLC [id number] [facility] 2023-01-28 13:23:00 2023-01-28 14:59:00 Emergency ZANE RHOADES TIMOTHY [facility] ERT [id number] [facility] 2023-01-28 13:23:00 2023-01-28 14:59:00 Emergency Zane Liu [facility] 1.2.840.114 350.1.13.10 4.2.7.2.686 [id number] [facility] 2023-01-27 00:00:00 2023-01-27 00:00:00 OFFICE VISIT ESTAB PT LEVEL 4 STLMLC STLMLC [id number] [facility] 2023-01-22 11:17:34 2023-01-22 11:17:34 Outpatient SFA SFA [id number] Tim F Fausto 2023-01-10 00:00:00 2023-01-10 00:00:00 (TEL) STLMLC STLMLC [id number] [facility] 2023-01-01 00:00:00 2023-01-01 00:00:00 (TEL) STLMLC STLMLC [id number] [facility] 2022-12-24 08:30:06 2022-12-24 08:30:06 Outpatient SFA SFA [id number] Tim F Fausto 2022-12-11 00:00:00 2022-12-11 00:00:00 OFFICE VISIT ESTAB PT LEVEL 4 STLMLC STLMLC [id number] [facility] 2022-12-02 00:00:00 2022-12-02 00:00:00 (TEL) STLMLC STLMLC [id number] [facility] 2022-11-27 08:05:24 2022-11-27 08:05:24 Outpatient SFA SFA [id number] Tim Messina Fausto 2022-11-18 00:00:00 2022-11-18 00:00:00 (TEL) STLMLC STLMLC [id number] [facility] 2022-11-14 00:00:00 2022-11-14 00:00:00 OFFICE VISIT ESTAB PT LEVEL 4 STLMLC STLMLC [id number] [facility] 2022-11-14 00:00:00 2022-11-14 00:00:00 SUB ANNUAL [facility] WELLNESS VISIT STLMLC STLMLC [id number] [facility] 2022-11-14 00:00:00 2022-11-14 00:00:00 OFFICE VISIT ESTAB PT LEVEL 4 STLMLC STLMLC [id number] [facility] 2022-11-05 00:00:00 2022-11-05 00:00:00 (TEL) STLMLC STLMLC [id number] [facility] 2022-10-30 17:27:51 2022-10-30 17:27:51 Outpatient SFA [facility] [id number] Tim Lambert 2022-10-24 00:00:00 2022-10-24 00:00:00 (TEL) STLMLC STLMLC [id number] [facility] 2022-10-20 04:41:00 2022-10-20 06:40:00 Emergency X SINGER [facility] ERT [id number] [facility] 2022-10-20 04:41:00 2022-10-20 06:40:00 Emergency Christen Obando [facility] 1.2.840.114 350.1.13.10 4.2.7.2.686 [id number] [facility] 2022-10-16 00:00:00 2022-10-16 00:00:00 (TEL) STLMLC STLMLC [id number] [facility] 2022-10-03 15:56:50 2022-10-03 15:56:50 Outpatient SFA [facility] [id number] Tim Lambert 2022-10-03 00:00:00 2022-10-03 00:00:00 (TEL) STLMLC STLMLC [id number] [facility] 2022-09-04 08:12:48 2022-09-04 08:12:48 Outpatient SFA SFA [id number] Tim Lambert 2022-09-03 14:40:55 2022-09-03 14:40:55 Outpatient SFA [facility] [id number] Tim Lambert 2022-08-30 07:45:00 2022-08-30 15:39:00 Emergency Kt GERTRUDE CHINCHILLA [facility] ERT [id number] [facility] 2022-08-30 07:45:00 2022-08-30 15:39:00 Emergency Wayne Gertrude Alarcon [facility] 1.2.840.114 350.1.13.10 4.2.7.2.686 [id number] [facility] 2022-08-12 00:00:00 2022-08-12 00:00:00 Outpatient [place] _[place] DMG [facility] [id number] [facility] 2022-08-12 00:00:00 2022-08-12 00:00:00 [place] [id number] [facility] 2022-08-12 00:00:00 2022-08-12 00:00:00 [place] [id number] [facility] 2022-08-12 00:00:00 2022-08-12 00:00:00 Out[place] [id number] [facility] 2022-07-31 00:00:00 2022-07-31 00:00:00 OFFICE VISIT ESTAB PT LEVEL 4 STLMLC STLMLC [id number] [facility] 2022-06-21 00:00:00 2022-06-21 00:00:00 Outpatient Cobb_T DMG DMG [id number] [facility] 2022-06-20 00:00:00 2022-06-20 00:00:00 Outpatient Cobb_T DMG DMG [id number] [facility] 2022-06-06 00:00:00 2022-06-06 00:00:00 (TEL) STLMLC STLMLC [id number] [facility] 2022-05-27 00:00:00 2022-05-27 00:00:00 Transition of Care Simón Rollins [facility] 1.2.840.114 350.1.13.10 4.2.7.2.686 [id number] [facility] 2022-05-23 07:39:00 2022-05-24 17:43:00 Outpatient CALLIE SHARIF [facility] [id number] [facility] 2022-05-23 07:39:00 2022-05-24 17:43:00 Emergency Gertrude Chinchilla David [facility] 1.2.840.114 350.1.13.10 4.2.7.2.686 [id number] [facility] 2022-05-09 00:00:00 2022-05-09 00:00:00 [facility] [id number] [facility] 2022-04-18 00:00:00 2022-04-18 00:00:00 OFFICE VISIT ESTAB PT LEVEL 4 STLMLC STLC [id number] [facility] 2022-04-18 00:00:00 2022-04-18 00:00:00 (TEL) STLMLC STLC [id number] [facility] 2022-04-12 03:30:00 2022-04-12 03:30:00 Outpatient Deshazo_T DMG [facility] [id number] [facility] 2022-04-10 04:58:00 2022-04-10 04:58:00 [facility] [id number] [facility] 2022-04-04 00:00:00 2022-04-04 00:00:00 (TEL) STLMLC STLMLC [id number] [facility] 2022-04-04 00:00:00 2022-04-04 00:00:00 (EST. VIDEO) EST VIRTUAL VIDEO VISIT STLMLC STLMLC [id number] [facility] 2022-03-26 00:00:00 2022-03-26 00:00:00 (TEL) STLMLC STLMLC [id number] [facility] 2022-02-14 00:00:00 2022-02-14 00:00:00 OFFICE VISIT ESTAB PT LEVEL 5 STLMLC STLMLC [id number] [facility] 2022-01-22 00:00:00 2022-01-22 00:00:00 (TEL) STLMLC STLMLC [id number] [facility] 2022-01-17 00:00:00 2022-01-17 00:00:00 OFFICE VISIT ESTAB PT LEVEL 4 STLMLC STLMLC [id number] [facility] 2021-11-12 00:00:00 2021-11-12 00:00:00 Orders Only Doctor Unassigned, [place] [facility] 1.2.840.114 350.1.13.10 4.2.7.2.686 [id number] [facility] 2021-10-16 00:00:00 2021-10-16 00:00:00 SUB ANNUAL [facility] WELLNESS VISIT STLMLC STLMLC [id number] [facility] 2021-10-16 00:00:00 2021-10-16 00:00:00 OFFICE VISIT ESTAB PT LEVEL 4 STLMLC STLMLC [id number] [facility] 2021-10-09 14:20:00 2021-10-09 14:20:00 Outpatient NEELA FANG HOWARD [facility] [id number] [facility] 2021-10-09 00:00:00 2021-10-09 00:00:00 (TEL) STLMLC STLMLC [id number] [facility] 2021-10-08 00:00:00 2021-10-08 00:00:00 (HOSP F/U) Hospital Follow Up STLMLC STLMLC [id number] [facility] 2021-10-05 00:00:00 2021-10-05 00:00:00 (TEL) STLMLC STLC [id number] [facility] 2021-10-02 00:00:00 2021-10-02 00:00:00 Transition of Care Simón Rollins 1..840.114 350.1.13.10 4.2.7.2.686 [id number] [facility] 2021-10-01 00:00:00 2021-10-01 00:00:00 (TEL) STLMLC STLC [id number] [facility] 2021-09-27 17:38:00 2021-09-30 15:22:00 Outpatient [facility] [id number] [facility] 2021-09-27 17:38:00 2021-09-30 15:22:00 Outpatient [facility] [id number] [facility] 2021-09-27 17:38:00 2021-09-30 15:22:00 Emergency Silva Szymanski [facility] 1..840.114 350.1.13.10 4.2.7.2.686 [id number] [facility] 2021-09-19 01:00:00 2021-09-19 01:00:00 Outpatient OWENS_T DMG [facility] [id number] [facility] 2021-08-10 10:31:00 2021-08-10 10:31:00 Outpatient OWENS_T DMG [facility] [id number] [facility] 2021-08-07 02:14:00 2021-08-07 02:14:00 Outpatient CURRY_S DMG [facility] [id number] [facility] 2021-07-17 00:00:00 2021-07-17 00:00:00 (TEL) STLMLC STLMLC [id number] [facility] 2021-07-11 00:00:00 2021-07-11 00:00:00 OFFICE VISIT ESTAB PT LEVEL 4 STLMLC STLMLC [id number] [facility] 2021-07-10 00:00:00 2021-07-10 00:00:00 (TEL) STLMLC STLMLC [id number] [facility] 2021-07-04 00:00:00 2021-07-04 00:00:00 (TEL) STLMLC STLMLC [id number] [facility] 2021-06-26 00:00:00 2021-06-26 00:00:00 (TEL) STLMLC STLMLC [id number] [facility] 2021-05-29 00:00:00 2021-05-29 00:00:00 Outpatient STLMLC STLMLC [id number] [facility] 2021-05-22 05:13:00 2021-05-22 05:13:00 Outpatient CURRY_S DMG DMG [id number] [facility] 2021-05-22 00:00:00 2021-05-22 00:00:00 Outpatient STLMLC STLMLC [id number] [facility] 2021-05-04 00:00:00 2021-05-04 00:00:00 Outpatient STLMLC STLMLC [id number] [facility] 2021-04-30 00:00:00 2021-04-30 00:00:00 Outpatient STLMLC STLMLC [id number] [facility] 2021-04-30 00:00:00 2021-04-30 00:00:00 Outpatient STLMLC STLMLC [id number] [facility] 2021-04-06 00:00:00 2021-04-06 00:00:00 Outpatient STLMLC STLMLC [id number] [facility] 2021-01-29 06:02:00 2021-01-29 06:02:00 Outpatient DMG DMG [id number] [facility] 2021-01-18 12:00:00 2021-01-18 12:00:00 Outpatient [facility] [id number] [facility] 2020-08-14 14:12:00 2020-08-14 15:54:[address] [facility] 1.2.840.114 350.1.13.10 4.2.7.2.686 [id number] 2020-08-14 14:12:00 2020-08-14 15:54:00 Emergency anyMaría wills Mayuri [facility] 1.2.840.114 350.1.13.10 4.2.7.2.686 [id number] [facility] Results Test Description Test Time Test Comments Results Result Co mments Source VITAMIN B 12 AND FOLIC [id number] 00:00:00* Test Item Value Reference Range Interpretation Comme nts FOLIC ACID (test code = 2284-8) >20.0 UG/L SEE BELOW UG/L VITAMIN B-12 (test code = 2132-9) 415 PG/ML See_Comment [Automated messa ge] The system which generated this result transmitted reference range: 200-950 PG/ML. The reference range was not used to interpret this result as normal/abnormal. CBC W/AUTO [id number] 00:00:00* Test Item Value Reference Range Interpretation Comme nts NUCLEATED RBCS (test code = 82798-8) 0.0 /100 WBC'S See_Comment [Automated messa ge] The system which generated this result transmitted reference range: 0.0 /100 WBC'S. The reference range was not used to interpret this result as normal/abnormal. ABSOLUTE EOSINOPHILS (test code = 01972-0) 0.42 K/UL See_Comment [Automated messa ge] The system which generated this result transmitted reference range: 0.00-0.50 K/UL. The reference range was not used to interpret this result as normal/abnormal. ABSOLUTE LYMPHOCYTES (test code = 84620-6) 2.14 K/UL See_Comment [Automated messa ge] The system which generated this result transmitted reference range: 1.00-4.00 K/UL. The reference range was not used to interpret this result as normal/abnormal. ABSOLUTE MONOCYTES (test code = 94072-3) 0.64 K/UL See_Comment [Automated messa ge] The system which generated this result transmitted reference range: 0.20-1.00 K/UL. The reference range was not used to interpret this result as normal/abnormal. ABSOLUTE NEUTROPHILS (test code = 50402-3) 7.23 K/UL See_Comment [Automated messa ge] The system which generated this result transmitted reference range: 1.50-7.50 K/UL. The reference range was not used to interpret this result as normal/abnormal. BASOPHILS (test code = 91035-0) 0.7 % EOSINOPHILS (test code = 16372-0) 4.0 % HEMATOCRIT (test code = 48749-7) 46.6 % See_Comment [Automated messa ge] The system which generated this result transmitted reference range: 40.0-51.0 %. The reference range was not used to interpret this result as normal/abnormal. HEMOGLOBIN (test code = 718-7) 15.8 G/DL See_Comment [Automated messa ge] The system which generated this result transmitted reference range: 13.5-17.0 G/DL. The reference range was not used to interpret this result as normal/abnormal. LYMPHOCYTES (test code = 39475-7) 20.3 % MCH (test code = 77347-2) 31.3 PG See_Comment [Automated messa ge] The system which generated this result transmitted reference range: 25.0-33.0 PG. The reference range was not used to interpret this result as normal/abnormal. MCHC (test code = 10793-0) 33.9 G/DL See_Comment [Automated messa ge] The system which generated this result transmitted reference range: 31.0-36.0 G/DL. The reference range was not used to interpret this result as normal/abnormal. MCV (test code = 94726-8) 92.5 fL See_Comment [Automated messa ge] The system which generated this result transmitted reference range: 80.0-99.0 fL. The reference range was not used to interpret this result as normal/abnormal. MONOCYTES (test code = 27382-8) 6.1 % NEUTROPHILS (test code = 37009-2) 68.5 % PLATELET COUNT (test code = 87051-8) 355 K/UL See_Comment [Automated messa ge] The system which generated this result transmitted reference range: 130-400 K/UL. The reference range was not used to interpret this result as normal/abnormal. RBC (test code = 63538-1) 5.04 M/UL See_Comment [Automated messa ge] The system which generated this result transmitted reference range: 4.50-6.10 M/UL. The reference range was not used to interpret this result as normal/abnormal. RDW (test code = 05782-4) 13.0 % See_Comment [Automated messa ge] The system which generated this result transmitted reference range: 11.5-15.0 %. The reference range was not used to interpret this result as normal/abnormal. WBC (test code = 70481-2) 10.5 K/UL See_Comment [Automated messa ge] The system which generated this result transmitted reference range: 3.5-11.0 K/UL. The reference range was not used to interpret this result as normal/abnormal. VITAMIN D, 25 [id number] 00:00:00* Test Item Value Reference Range Interpretation Comme [facility] VITAMIN D, 25 OH (test code = 1988-3) 40 NG/ML SEE BELOW NG/ML LIPID PANEL WITH REFLEX DIRECT [id number] 00:00:00* Test Item Value Reference Range Interpretation Comme nts CALC LDL CHOL (test code = 39112-0) 126 MG/DL See_Comment H [Automated messa ge] The system which generated this result transmitted reference range: <100 MG/DL. The reference range was not used to interpret this result as normal/abnormal. CHOLESTEROL (test code = 2093-3) 210 MG/DL See_Comment H [Automated messa ge] The [...] normal/abnormal. RISK RATIO LDL/HDL (test code = 72614-0) 2.21 RATIO See_Comment [Automated message] The system [...] interpret this result as normal/abnormal. COMPREHENSIVE METABOLIC [id number] 00:00:00* Test Item Value Reference Range Interpretation Comme nts ALBUMIN (test code = 1751-7) 4.9 G/DL See_Comment [Automated LoopUpa ge] The system which generated this result [...] code = 3094-0) 11 MG/DL See_Comment [Automated LoopUpa ge] The system which generated this result transmitted reference range: 8-23 MG/DL. The reference range was not used to interpret this result as normal/abnormal. CALCIUM (test code = 82607-9) 9.5 MG/DL See_Comment [Automated messa ge] The system which generated this result transmitted reference range: 8.5-10.5 MG/DL. The reference range was not used to interpret this result as normal/abnormal. CALC A/G RATIO (test code = 1759-0) 1.8 RATIO See_Comment [Automated LoopUpa ge] The system which generated this result [...] as normal/abnormal. CALC GLOBULIN (test code = 20210-6) 2.7 G/DL See_Comment [Automated messa ge] The [...] normal/abnormal. eGFR (2020 CKD-EPI) (test code = 49865-3) 79 ML/MIN/1.73 See_Comment [Automated messa ge] The [...] interpret this result as normal/abnormal. CBC WITH [id number] 11:42:32* Test Item Value Reference Range Interpretation [...] 33.7 g/dL 31.2-35.0 RDW-SD (test code = 10841-3) 45.5 fL 38.5-51.6 RDW-CV (test code = 788-0) 13.8 % 12.1-15.4 PLT (test code = 777-3) See_Comment [Automated messa ge] The system which generated this result transmitted reference range: 150 - 328 10*3/?L. The reference range was not used to interpret this result as normal/abnormal. MPV (test code = 82095-3) 8.7 fL 9.8-13.0 L NRBC/100 WBC (test code = 8494419958) See_Comment [Automated Idibon ssage] The system which generated this result transmitted reference range: 0.0 - 10.0 /100 WBCs. The reference range was not used to interpret this result as normal/abnormal. NRBC x10^3 (test code = 8295406507) See_Comment [Automated messa ge] The system which generated this result transmitted reference range: 10*3/?L. The reference range was not used to interpret this result as normal/abnormal. GRAN MAT (NEUT) % (test code = 770-8) 92.6 % IMM GRAN % (test code = 1357083853) 0.90 % LYMPH % (test code = 736-9) 5.3 % MONO % (test code = 5905-5) 0.6 % EOS % (test code = 713-8) 0.3 % BASO % (test code = 706-2) 0.3 % GRAN MAT x10^3(ANC) (test code = 1136151807) 9.61 10*3/uL 1.99-6.95 H IMM GRAN x10^3 (test code = 5760287048) 0.09 10*3/uL 0.00-0.06 H LYMPH x10^3 (test code = 731-0) 0.55 10*3/uL 1.09-3.23 L MONO x10^3 (test code = 742-7) 0.06 10*3/uL 0.36-1.02 L EOS x10^3 (test code = 711-2) 0.03 10*3/uL 0.06-0.53 L BASO x10^3 (test code = 704-7) 0.03 10*3/uL 0.01-0.09 Lab Interpretation (test code = 81917-0) [facility]:31:09 SALICYLATE<10mg/L10/20/2022 5:31 AM [facility] LABORATORYTherapeutic Range: ? Analgesic and Antipyretic Use ? 20- 100 mg/L ? ? Anti-Inflammatory Use ? 100-250 mg/L Toxic Range: ? Greater than 300 mg/LUnB[facility]ETHANOL2023-01-22 11:31:04ALCOHOL<10mg/dL10/20/2022 5:31 AM [facility]<10 Cbwveoxn53-479 Toxic>100 Depression of OXIDE FURNACE TENDER>400 Fatalities [facility]ortedMem[facility] HospitalACETAMINOPHEN2023-01-22 11:30:59* Test Item Value Reference Range Interpretation Comme nts ACETAMINOP (test code = 5862419331) 10.0-30.0 L ISIDORO (test code = ISIDORO) Toxic: Greater porsche n 200 ug/mL @ 4 hour post ingestion or greater than 50 ug/mL @ 12 hour post ingestion Lab Interpretation (test code = 40599-5) Abnormal [facility] HospitalCOMP[facility] MET[facility]OLIC PANEL (45770)2022-10-20 11:26:11* Test Item Value Reference Range Interpretation Comme nts NA (test code = 3979234724) 135 mmol/L 135-145 K (test code = 7466763736) 5.9 mmol/L 3.5-5.0 H CL (test code = 4113171991) 105 mmol/L 98-108 CO2 TOTAL (test code = 4633311343) 21 mmol/L 23-31 L AGAP (test code = 1786875923) 2-16 BUN (test code = 2041124095) 25 mg/dL 7-23 H GLUCOSE (test code = 0121424444) 127 mg/dL 70-110 H CREATININE (test code = 6244977828) 1.66 mg/dL 0.60-1.25 H TOTAL BILI (test code = 6934196776) 1.0 mg/dL 0.1-1.1 CALCIUM (test code = 0589603386) 8.9 mg/dL 8.6-10.6 T PROTEIN (test code = 6352201505) 7.9 g/dL 6.3-8.2 ALBUMIN (test code = 8742821720) 4.6 g/dL 3.5-5.0 ALK PHOS (test code = 9901286508) 134 U/L 34-122 H ALTv (test code = 1742-6) 30 U/L 5-50 AST(SGOT) (test code = 0012375208) 45 U/L 13-40 H eGFR (test code = 7401873092) mL/min/1.73m2 ISIDORO (test code = ISIDORO) Association [...] imaging tests). Lab Interpretation (test code = 77643-6) Abnormal [facility] METABOLIC PANEL (NA, K, CL, CO2, GLUCOSE, BUN, CREATININE, CA)2022-08-30 18:07:32* Test Item Value Reference Range Interpretation Comme nts NA (test code = 1648367946) 143 mmol/L 135-145 K (test code = 0109590826) 4.1 mmol/L 3.5-5.0 CL (test code = 3142418634) 115 mmol/L 98-108 H CO2 TOTAL (test code = 3123171651) 19 mmol/L 23-31 L AGAP (test code = 5076109253) 2-16 BUN (test code = 9748431361) 33 mg/dL 7-23 H GLUCOSE (test code = 8106797623) 66 mg/dL 70-110 L CREATININE (test code = 6835540816) 1.99 mg/dL 0.60-1.25 H CALCIUM (test code = 6040169420) 8.3 mg/dL 8.6-10.6 L eGFR (test code = 7388805466) mL/min/1.73m2 ISIDORO (test code = ISIDORO) Association [...] imaging tests). Lab Interpretation (test code = 82322-1) [id number]:44:49* Test Item Value Reference Range Interpretation Comments TROPONIN I (test code = 8623940146) 0.004 ng/mL See_Comment [Automated message] The system [...] of biotin. Lab Interpretation (test code = 28577-0) [facility]:27:10 ALCOHOL<10mg/dL08/30/2022 9:27 AM [facility]<10 Inbiusyy44-773 Toxic>100 Depression of OXIDE FURNACE TENDER>400 F[facility]COMP. [facility]ABOLIC PANEL (54816)2022-08-30 15:24:23* Test Item Value Reference Range Interpretation Comme nts NA (test code = 1877659009) 144 mmol/L 135-145 K (test code = 6875625007) 3.9 mmol/L 3.5-5.0 CL (test code = 7154900695) 109 mmol/L 98-108 H CO2 TOTAL (test code = 6659281812) 22 mmol/L 23-31 L AGAP (test code = 8868260793) 2-16 BUN (test code = 8843458704) 37 mg/dL 7-23 H GLUCOSE (test code = 6856684776) 86 mg/dL 70-110 CREATININE (test code = 4783436942) 2.47 mg/dL 0.60-1.25 H TOTAL BILI (test code = 1677651794) 0.8 mg/dL 0.1-1.1 CALCIUM (test code = 7965705516) 9.3 mg/dL 8.6-10.6 T PROTEIN (test code = 3929814724) 7.0 g/dL 6.3-8.2 ALBUMIN (test code = 9166242821) 4.4 g/dL 3.5-5.0 ALK PHOS (test code = 7084989166) 119 U/L 34-122 ALTv (test code = 1742-6) 22 U/L 5-50 AST(SGOT) (test code = 4894071373) 38 U/L 13-40 eGFR (test code = 9257468439) mL/min/1.73m2 ISIDORO (test code = ISIDORO) Association [...] imaging tests). Lab Interpretation (test code = 64629-7) [facility]* Test Item Value Reference Range Interpretation Comme nts MAGNESIUM (test code = 3488891444) 2.1 mg/dL 1.7-2.4 Lab Interpretation (test cod e = 91790-0) Normal [facility] WITH [id number] 14:36:33* Test Item Value Reference Range Interpretation [...] 32.7 g/dL 31.2-35.0 RDW-SD (test code = 06112-9) 44.7 fL 38.5-51.6 RDW-CV (test code = 788-0) 13.2 % 12.1-15.4 PLT (test code = 777-3) See_Comment [Automated messa ge] The system which generated this result transmitted reference range: 150 - 328 10*3/?L. The reference range was not used to interpret this result as normal/abnormal. MPV (test code = 03233-3) 9.7 fL 9.8-13.0 L NRBC/100 WBC (test code = 7139975555) See_Comment [Automated Idibon ssage] The system which generated this result transmitted reference range: 0.0 - 10.0 /100 WBCs. The reference range was not used to interpret this result as normal/abnormal. NRBC x10^3 (test code = 6424495355) See_Comment [Automated messa ge] The system which generated this result transmitted reference range: 10*3/?L. The reference range was not used to interpret this result as normal/abnormal. GRAN MAT (NEUT) % (test code = 770-8) 62.1 % IMM GRAN % (test code = 5873339088) 0.50 % LYMPH % (test code = 736-9) 22.6 % MONO % (test code = 5905-5) 9.1 % EOS % (test code = 713-8) 5.2 % BASO % (test code = 706-2) 0.5 % GRAN MAT x10^3(ANC) (test code = 3170260883) 5.38 10*3/uL 1.99-6.95 IMM GRAN x10^3 (test code = 8365643973) 0.04 10*3/uL 0.00-0.06 LYMPH x10^3 (test code = 731-0) 1.96 10*3/uL 1.09-3.23 MONO x10^3 (test code = 742-7) 0.79 10*3/uL 0.36-1.02 EOS x10^3 (test code = 711-2) 0.45 10*3/uL 0.06-0.53 BASO x10^3 (test code = 704-7) 0.04 10*3/uL 0.01-0.09 Lab Interpretation (test code = 77014-8) [facility] [id number] 10:17:19* Test Item Value Reference Range Interpretation Comments TROPONIN I (test code = 0819979630) 0.007 ng/mL See_Comment [Automated message] The system [...] of biotin. Lab Interpretation (test code = 57721-8) [facility] 10:05:38* Test Item Value Reference Range Interpretation Comme nts MAGNESIUM (test code = 9139934539) 2.1 mg/dL 1.7-2.4 Lab Interpretation (test cod e = 01695-9) [facility] (NA, K, CL, CO2, GLUCOSE, BUN, CREATININE, CA)2022-05-24 10:05:18* Test Item Value Reference Range Interpretation Comme nts NA (test code = 5318372773) 136 mmol/L 135-145 K (test code = 4420286456) 4.9 mmol/L 3.5-5 CL (test code = 9392497870) 109 mmol/L 98-108 H CO2 TOTAL (test code = 6792537454) 21 mmol/L 23-31 L AGAP (test code = 4306285932) 2-16 BUN (test code = 6649416760) 27 mg/dL 7-23 H GLUCOSE (test code = 2198228941) 89 mg/dL 70-110 CREATININE (test code = 3858496874) 1.62 mg/dL 0.6-1.25 H CALCIUM (test code = 5365760305) 8.5 mg/dL 8.6-10.6 L eGFR (test code = 2556666271) mL/min/1.73m2 ISIDORO (test code = ISIDORO) Association [...] imaging tests). Lab Interpretation (test code = 84873-6) Abnormal [facility] WITH [id number] 09:31:37* Test Item Value Reference Range Interpretation Comme nts WBC (test code = 6690-2) See_Comment [Automated [employer]] The system which generated this result transmitted reference range: 4.20 - 10.70 10*3/?L. The reference range was not used to interpret this result as normal/abnormal. RBC (test code = 789-8) See_Comment L [Automated [employer]] The system which generated this result transmitted [...] 33.3 g/dL 31.2-35 RDW-SD (test code = 90932-6) 43.6 fL 38.5-51.6 RDW-CV (test code = 788-0) 13.1 % 12.1-15.4 PLT (test code = 777-3) See_Comment [Automated [employer]] The system which generated this result transmitted reference range: 150 - 328 10*3/?L. The reference range was not used to interpret this result as normal/abnormal. MPV (test code = 37362-3) 9.3 fL 9.8-13 L NRBC/100 WBC (test code = 8073252865) See_Comment [Automated me ssage] The system which generated this result transmitted reference range: 0.0 - 10.0 /100 WBCs. The reference range was not used to interpret this result as normal/abnormal. NRBC x10^3 (test code = 4463388528) See_Comment [Automated messa ge] The system which generated this result transmitted reference range: 10*3/?L. The reference range was not used to interpret this result as normal/abnormal. GRAN MAT (NEUT) % (test code = 770-8) 56.1 % IMM GRAN % (test code = 0960657531) 0.40 % LYMPH % (test code = 736-9) 27.1 % MONO % (test code = 5905-5) 9.9 % EOS % (test code = 713-8) 5.8 % BASO % (test code = 706-2) 0.7 % GRAN MAT x10^3(ANC) (test code = 5268863390) 4.53 10*3/uL 1.99-6.95 IMM GRAN x10^3 (test code = 2422413799) 0.03 10*3/uL 0-0.06 LYMPH x10^3 (test code = 731-0) 2.19 10*3/uL 1.09-3.23 MONO x10^3 (test code = 742-7) 0.80 10*3/uL 0.36-1.02 EOS x10^3 (test code = 711-2) 0.47 10*3/uL 0.06-0.53 BASO x10^3 (test code = 704-7) 0.06 10*3/uL 0.01-0.09 Lab Interpretation (test code = 40604-0) [id number] 04:35:45* Test Item Value Reference Range Interpretation Comments TROPONIN I (test code = 3011578685) 0.004 ng/mL See_Comment [Automated message] The system [...] of biotin. Lab Interpretation (test code = 26403-2) Normal [facility]22-[facility]-24 01:26:40* Test Item Value Reference Range Interpretation Comme nts Height (test code = 8006936316) in Weight (test code = 6728937370) lbs Systolic BP (test code = 8399791041) mmHg Diastolic BP (test code = 7731772474) mmHg Heart Rate (test code = 2060226372) bpm BSA (test code = 9062961359) 2.09 m2 Ao root annulus (test code = 0027302081) 3.2 cm Ao root diam (test code = 2621153600) 3.20 cm Aortic root (test code = 7179660335) 3.2 cm LVOT diameter (test code = 5565486247) 2.14 cm LVIDD (test code = 7419249955) 5.00 cm IVS (test code = 1168014271) 1.31 cm Interventricular Septum Diastolic Thickness by 2D (test code = 0426036) 1.31 cm LVPWD (test code = 8913782611) 1.32 cm PW (test code = 5929569651) 1.32 cm 0.6-1.1 EF(Teich) (test code = 1194293656) 61.30 % LVIDS (test code = 4232217183) 3.30 cm FS (test code = 0732561783) 33 % EF - 2D (test code = 99989623) 61.30 % LA size (test code = 8289099942) 3.6 cm TR Peak Mayank (test code = 0920299521) 261.9 cm/s Triscuspid Valve Regurgitation Peak Gradient (test code = 7046634635) mmHg LAV(MOD-sp4) (test code = 4856028282) 59.10 mL E wave decelartion time (test code = 2310698010) 0.23 s MV Peak E Mayank (test code = 1646285719) 73.6 cm/s MV stenosis pressure 1/2 time (test code = 6952837386) 70.2 ms MV Peak A Mayank (test code = 2782777236) 55.9 cm/s E/A ratio (test code = 5702726728) ratio MV Prop V (test code = 8524866598) 58.20 cm/s MV E/e' septal (test code = 0417236755) 12.2 cm/s Tapse (test code = 4574822834) 2.9 cm LVOT stroke volume (test code = 0631638138) 103.80 cm3 LVOT peak mayank (test code = 7872845735) 147.2 cm/s LVOT mn grad (test code = 7537385345) mmHg AV LVOT peak gradient (test code = 0057359240) mmHg LVOT peak VTI (test code = 4938789230) 28.7 cm LV V1 mean (test code = 5646568214) 93.00 cm/s Aortic valve mean velocity (test code = 4823831950) 119.4 cm/s Ao peak mayank (test code = 8727461791) 165.6 cm/s Ao VTI (test code = 1989666340) 35.2 cm AV area by cont VTI (test code = 4412065003) 2.9 cm2 AV area peak mayank (test code = 1271507081) 3.2 cm2 Ao max PG (test code = 0329282364) 11.00 mm[Hg] AV peak gradient (test code = 1725321045) mmHg AV valve area (test code = 1693717742) 2.90 cm2 AV mean gradient (test code = 9690856858) mmHg Radiology Study observation (narrative) (test code = 76904-7) ISIDORO (test code = ISIDORO) Formatting of [...] 2D, color flow Doppler and spectral Doppler. [facility] [id number] 14:25:35* Test Item Value Reference Range Interpretation Comments TROPONIN I (test code = 7739678380) 0.009 ng/mL See_Comment [Automated message] The system [...] of biotin. Lab Interpretation (test code = 66431-2) Normal [facility] METABOLIC PANEL (09468)2022-05-23 14:14:13* Test Item Value Reference Range Interpretation Comme nts NA (test code = 7947155581) 143 mmol/L 135-145 K (test code = 7079437682) 5.0 mmol/L 3.5-5 CL (test code = 9150646387) 111 mmol/L 98-108 H CO2 TOTAL (test code = 7503131887) 20 mmol/L 23-31 L AGAP (test code = 9417976732) 2-16 BUN (test code = 3737608013) 30 mg/dL 7-23 H GLUCOSE (test code = 7014678650) 85 mg/dL 70-110 CREATININE (test code = 3894646475) 2.07 mg/dL 0.6-1.25 H TOTAL BILI (test code = 7473997099) 0.6 mg/dL 0.1-1.1 CALCIUM (test code = 0213433994) 9.0 mg/dL 8.6-10.6 T PROTEIN (test code = 4474883412) 7.2 g/dL 6.3-8.2 ALBUMIN (test code = 3844564049) 4.4 g/dL 3.5-5 ALK PHOS (test code = 0360054787) 121 U/L 34-122 ALTv (test code = 1742-6) 23 U/L 5-50 AST(SGOT) (test code = 2390836295) 29 U/L 13-40 eGFR (test code = 3927758954) mL/min/1.73m2 ISIDORO (test code = ISIDORO) Association [...] imaging tests). Lab Interpretation (test code = 40340-5) Abnormal [facility] WITH [id number] 14:11:10* Test Item Value Reference Range Interpretation Comme nts WBC (test code = 6690-2) See_Comment H [Automated appAttach] The system which generated this result transmitted reference range: 4.20 - 10.70 10*3/?L. The reference range was not used to interpret this result as normal/abnormal. RBC (test code = 789-8) See_Comment [Automated appAttach] The system which generated this result transmitted [...] 33.5 g/dL 31.2-35 RDW-SD (test code = 44888-4) 42.9 fL 38.5-51.6 RDW-CV (test code = 788-0) 12.9 % 12.1-15.4 PLT (test code = 777-3) See_Comment H [Automated appAttach] The system which generated this result transmitted reference range: 150 - 328 10*3/?L. The reference range was not used to interpret this result as normal/abnormal. MPV (test code = 13941-0) 9.0 fL 9.8-13 L NRBC/100 WBC (test code = 2974441240) See_Comment [Automated me ssage] The system which generated this result transmitted reference range: 0.0 - 10.0 /100 WBCs. The reference range was not used to interpret this result as normal/abnormal. NRBC x10^3 (test code = 5480990994) See_Comment [Automated messa ge] The system which generated this result transmitted reference range: 10*3/?L. The reference range was not used to interpret this result as normal/abnormal. GRAN MAT (NEUT) % (test code = 770-8) 71.9 % IMM GRAN % (test code = 8651556287) 0.40 % LYMPH % (test code = 736-9) 16.1 % MONO % (test code = 5905-5) 8.4 % EOS % (test code = 713-8) 2.5 % BASO % (test code = 706-2) 0.7 % GRAN MAT x10^3(ANC) (test code = 3261211759) 8.20 10*3/uL 1.99-6.95 H IMM GRAN x10^3 (test code = 5792101209) 0.05 10*3/uL 0-0.06 LYMPH x10^3 (test code = 731-0) 1.84 10*3/uL 1.09-3.23 MONO x10^3 (test code = 742-7) 0.96 10*3/uL 0.36-1.02 EOS x10^3 (test code = 711-2) 0.29 10*3/uL 0.06-0.53 BASO x10^3 (test code = 704-7) 0.08 10*3/uL 0.01-0.09 Lab Interpretation (test code = 46770-6) Abnormal [facility]"
[2024-02-10] MEDS ORDERED: ONDANSETRON 4 MG/2 ML VIAL ONE (14:41)
[2024-02-10] MEDS ORDERED: VANCOMYCIN 1 GM/VIAL ONE (14:41)
[2024-02-10] MEDS ORDERED: Levofloxacin500mg IV 500 MG/100 ML BAG IV ONE (14:42)
[2024-02-10] MEDS ORDERED: NA CHLORIDE 0.9% 250 ML ONE (14:42)
[2024-02-10] MEDS ORDERED: MORPHINE 4 MG/ML SYR ONE ×2 (14:42→16:59)
[2024-02-10] MEDS ORDERED: COLCHICINE 0.6 MG TAB ONE (14:42)
[2024-02-10] MEDS ORDERED: NA CHLORIDE 0.9% 500 ML ONE (14:43)
[2024-02-10] MEDS ORDERED: CLINDAMYCIN 900MG/D5W 900 MG/50 ML IVPB IV ONE (14:43)
[2024-02-10] MEDS ORDERED: NA CHLORIDE 0.9% 0 ML ONE (14:43)
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
--- NOTE | 2024-02-10 15:48 | RAD REPORT ---
EXAM DESCRIPTION: US - Extremity Venous Uni Ltd - 02/10/2024 3:35 pm CLINICAL HISTORY: R Leg swelling and edema. COMPARISON: <Comparisons> FINDINGS: Right lower extremity venous system was interrogated with Doppler technique. Normal flow, compressibility and augmentation was noted. There is no DVT present. IMPRESSION: No evidence of right lower extremity deep venous thrombosis.
[2024-02-10 16:15] LABS: Absolute Basophils 0.1 K/uL (0-0.5); Absolute Eosinophils 0.3 K/uL (0-0.5); Absolute Lymphocytes (CBC) 1.7 K/uL (0.7-4.9); Absolute Monocytes 1.4 K/uL (0.1-1.3); Absolute Neutrophil 13.6 K/uL (1.8-8.0); Basophils % 0.6 % (0-1.3); Hematocrit 32.9 % (39.6-49.0); Lymphocytes % 9.7 % (15.3-44.8); MCH 30.4 pg (27.0-35.0); MCHC 33.4 g/dL (32.0-36.0); MCV 91.1 fL (80-100); Monocytes % 8.4 % (3.3-12.3); Neutrophils % 79.3 % (41.7-73.7); Platelets 314 thou/uL (152-406); RBC Red Blood Cell Count 3.61 M/uL (4.33-5.43); Red Cell Distribution Width 13.9 % (12.1-15.2)
[2024-02-10 16:19] LABS: PT Prothrombin Time 12.4 SECONDS (9.5-12.5); PTT, Activated Partial Thromb 30.6 SECONDS (24.3-36.9); Protime INR 1.13
[2024-02-10 16:35] LABS: Albumin 3.2 g/dL (3.4-5.0); Albumin/Globulin Ratio 0.9 (1.1-1.8); Anion Gap 8.7 mEq/L (5.0-15.0); Bilirubin Direct 0.2 mg/dL (0-0.2); Bilirubin Indirect, Calculated 0.4 mg/dL (0.2-0.8); Bilirubin Total 0.6 mg/dL (0.2-1.0); Globulin 3.4 g/dL (2.3-3.5); Potassium 3.7 mEq/L (3.5-5.1); Protein, Total 6.6 g/dL (6.4-8.2); Troponin High Sensitivity 15.9 pg/mL (<58.9); Uric Acid 4.9 mg/dL (3.5-7.2)
--- NOTE | 2024-02-10 16:57 | RAD REPORT ---
EXAM DESCRIPTION: RAD - Foot Right 3 View - 02/10/2024 4:51 pm CLINICAL HISTORY: pain COMPARISON: <Comparisons> FINDINGS: Prominent soft tissue swelling is seen about the foot especially medially. Prominent degen erative change first MTP joint. Small calcaneal spur. No soft tissue gas or foreign body.
[2024-02-10] MEDS: NA CHLORIDE 0.9% 1,000 ML IV SCH (17:00)
[2024-02-10] MEDS ORDERED: TETANUS & DIPHTHERIA TOX,ADULT 0.5 ML VIAL IMVAC ONE (17:44)
[2024-02-10] MEDS: CEFEPIME 1 GM in NA CHLORIDE 0.9% 100 ML IV SCH (21:00)
[2024-02-10] MEDS: NA CHLORIDE 0.9% 100 ML ONE (21:27)
[2024-02-10] MEDS: MORPHINE 2 MG/ML SYR ONE (21:27)
[2024-02-10] MEDS: CEFEPIME 1 GM/VIAL ONE (21:27)
[2024-02-10 21:51] VITALS: BMI 31.2
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
[2024-02-11] MEDS: NA CHLORIDE 0.9% 1,000 ML ONE ×2 (00:50→01:07)
[2024-02-11 01:17] LABS: Specific Gravity 1.008 (1.005-1.030); Urine Bilirubin NEGATIVE (Negative); Urine Blood Negative (Negative); Urine Clarity Clear (Clear); Urine Color Light-Yellow (Yellow); Urine Glucose NEGATIVE (Negative); Urine Ketones NEGATIVE (Negative); Urine Microscopic Reflex YN NO UMIC; Urine Nitrite NEGATIVE (Negative); Urine Protein NEGATIVE (Negative); Urine Urobilinogen Normal (Normal); Urine pH 5.5 (5.0-7.0)
[2024-02-11] MEDS: MORPHINE 2 MG/ML SYR IV PRN (03:02)
[2024-02-11] MEDS: VANCOMYCIN 500 MG in NA CHLORIDE 0.9% 100 ML IVPB ONE (03:03)
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
[2024-02-11 07:18] LABS: Absolute Basophils 0.1 K/uL (0-0.5); Absolute Eosinophils 0.4 K/uL (0-0.5); Absolute Lymphocytes (CBC) 1.4 K/uL (0.7-4.9); Absolute Monocytes 1.3 K/uL (0.1-1.3); Absolute Neutrophil 9.2 K/uL (1.8-8.0); Basophils % 0.6 % (0-1.3); Eosinophils % 3.2 % (0-4.4); Hematocrit 31.3 % (39.6-49.0); Hemoglobin 10.4 g/dL (13.6-17.9); Lymphocytes % 11.6 % (15.3-44.8); MCH 30.7 pg (27.0-35.0); MCHC 33.3 g/dL (32.0-36.0); MCV 92.2 fL (80-100); MPV 7.6 fL (7.6-11.3); Monocytes % 10.2 % (3.3-12.3); Neutrophils % 74.4 % (41.7-73.7); Platelets 260 thou/uL (152-406); RBC Red Blood Cell Count 3.39 M/uL (4.33-5.43); Red Cell Distribution Width 14.2 % (12.1-15.2)
[2024-02-11 07:26] LABS: Magnesium 1.9 mg/dL (1.6-2.4); Phosphorus 2.8 mg/dL (2.5-4.9)
[2024-02-11] MEDS: ENOXAPARIN 40 MG/0.4 ML SQ SCH (08:17)
[2024-02-11] MEDS ORDERED: VANCOMYCIN 1 GM in NA CHLORIDE 0.9% 250 ML IVPB SCH (09:00)
[2024-02-11] MEDS: CEFEPIME 2 GM in NA CHLORIDE 0.9% 100 ML IV SCH ×2 (09:00→20:11)
[2024-02-11] MEDS: VANCOMYCIN 1.5 GM in NA CHLORIDE 0.9% 500 ML IVPB SCH (12:02)
[2024-02-11] MEDS ORDERED: VANCOMYCIN 1.5 GM in NA CHLORIDE 0.9% 500 ML IVPB SCH (20:00)
[2024-02-12] MEDS ORDERED: TDAP (DIPHTH,PERTUSS(ACELL),TET VAC) 0.5 ML VIAL IMVAC ONE (03:46)
[2024-02-12] MEDS: TETANUS & DIPHTHERIA TOX,ADULT 0.5 ML VIAL IMVAC ONE (04:00)
[2024-02-12] MEDS: TDAP (DIPHTH,PERTUSS(ACELL),TET VAC) 0.5 ML VIAL IMVAC ONE (04:41)
[2024-02-12 06:59] LABS: Absolute Basophils 0.1 K/uL (0-0.5); Absolute Eosinophils 0.4 K/uL (0-0.5); Absolute Lymphocytes (CBC) 1.2 K/uL (0.7-4.9); Absolute Neutrophil 10.6 K/uL (1.8-8.0); Basophils % 0.7 % (0-1.3); Eosinophils % 3.1 % (0-4.4); Hematocrit 31.6 % (39.6-49.0); Hemoglobin 10.8 g/dL (13.6-17.9); Lymphocytes % 9.3 % (15.3-44.8); MCH 31.1 pg (27.0-35.0); MCHC 34.2 g/dL (32.0-36.0); MCV 91.1 fL (80-100); MPV 7.5 fL (7.6-11.3); Monocytes % 7.5 % (3.3-12.3); Neutrophils % 79.4 % (41.7-73.7); Nucleated Red Blood Cells % 0.1 % (0-0); Platelets 305 thou/uL (152-406); RBC Red Blood Cell Count 3.47 M/uL (4.33-5.43); Red Cell Distribution Width 14.2 % (12.1-15.2)
[2024-02-12 07:16] LABS: Anion Gap 5.7 mEq/L (5.0-15.0); Magnesium 1.9 mg/dL (1.6-2.4); Phosphorus 2.4 mg/dL (2.5-4.9); Potassium 3.7 mEq/L (3.5-5.1)
[2024-02-12 08:53] LABS: Blood Morphology Comment NOT SEEN (NOT SEEN); Platelet Estimate ADEQ; White Blood Cell Scan OK (OK)
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
[2024-02-12] MEDS: HYDROCODONE/APAP 7.5/325 MG TAB PO PRN (17:01)
[2024-02-13 03:50] LABS: Absolute Basophils 0.1 K/uL (0-0.5); Absolute Eosinophils 0.5 K/uL (0-0.5); Absolute Lymphocytes (CBC) 1.7 K/uL (0.7-4.9); Absolute Neutrophil 9.3 K/uL (1.8-8.0); Basophils % 0.8 % (0-1.3); Eosinophils % 4.1 % (0-4.4); Hematocrit 33.7 % (39.6-49.0); Hemoglobin 11.4 g/dL (13.6-17.9); Lymphocytes % 13.7 % (15.3-44.8); MCH 30.6 pg (27.0-35.0); MCHC 33.7 g/dL (32.0-36.0); MCV 90.6 fL (80-100); MPV 7.9 fL (7.6-11.3); Monocytes % 7.7 % (3.3-12.3); Neutrophils % 73.7 % (41.7-73.7); Platelets 339 thou/uL (152-406); RBC Red Blood Cell Count 3.72 M/uL (4.33-5.43); Red Cell Distribution Width 13.9 % (12.1-15.2)
[2024-02-13 04:06] LABS: Anion Gap 5.4 mEq/L (5.0-15.0); Magnesium 1.9 mg/dL (1.6-2.4); Phosphorus 2.7 mg/dL (2.5-4.9); Potassium 3.4 mEq/L (3.5-5.1)
[2024-02-13] MEDS: HYDROCODONE/APAP 10/325 TAB PO PRN (09:43)
[2024-02-13] MEDS: HYDROMORPHONE HCL 0.5 MG/0.5 ML INJ IV PRN (11:42)
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
[2024-02-13] MEDS: COLCHICINE 0.6 MG TAB PO ONE (13:33)
--- NOTE | 2024-02-13 14:47 | EKG ---
Test Date: 2024-02-10 Test Time: 14:43:58 Ammonia Operator: HARIS MEASUREMENT RESULTS: Intervals: Rate: 71 SC: 142 QRSD: 82 QT: 402 QTc: 436 [place]: P: 71 SC: 142 QRS: 19 T: 61 INTERPRETIVE STATEMENTS: Sinus rhythm Normal ECG Compared to ECG 12/13/2023 15:25:42 ST (T wave) deviation no longer present Electronically Signed On 02-13-24 14:39:37 CDT by Mino Tsai
[2024-02-13] MEDS: NA CHLORIDE 0.9% 1,000 ML IV SCH (15:54)
[2024-02-13] MEDS ORDERED: COLCHICINE 0.6 MG TAB PO PRN (17:00)
[2024-02-13] MEDS: LOPERAMIDE HCL 2 MG CAPSULE PO STA (17:25)
[2024-02-14 03:11] LABS: Absolute Basophils 0.1 K/uL (0-0.5); Absolute Eosinophils 0.2 K/uL (0-0.5); Absolute Monocytes 0.9 K/uL (0.1-1.3); Absolute Neutrophil 13.9 K/uL (1.8-8.0); Basophils % 0.6 % (0-1.3); Eosinophils % 1.5 % (0-4.4); Hematocrit 36.7 % (39.6-49.0); Hemoglobin 12.4 g/dL (13.6-17.9); Lymphocytes % 6.1 % (15.3-44.8); MCH 30.5 pg (27.0-35.0); MCHC 33.8 g/dL (32.0-36.0); MCV 90.4 fL (80-100); MPV 7.5 fL (7.6-11.3); Monocytes % 5.6 % (3.3-12.3); Neutrophils % 86.2 % (41.7-73.7); Platelets 365 thou/uL (152-406); RBC Red Blood Cell Count 4.05 M/uL (4.33-5.43)
[2024-02-14 03:27] LABS: Anion Gap 10.4 mEq/L (5.0-15.0); Magnesium 1.5 mg/dL (1.6-2.4); Phosphorus 3.6 mg/dL (2.5-4.9); Potassium 3.4 mEq/L (3.5-5.1)
[2024-02-14] MEDS: POTASSIUM CL SA 10 MEQ TAB PO ONE (04:23)
[2024-02-14] MEDS: Magnesium Sulfate 2gm IVPB 2 G/50 ML BAG IV ONE (04:24)
[2024-02-14] MEDS: LOPERAMIDE HCL 2 MG CAPSULE PO STA (08:10)
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
[2024-02-14] MEDS: PIPER TAZO 3.375 GM in NA CHLORIDE 0.9% 100 ML IV SCH (10:08)
--- NOTE | 2024-02-14 10:48 | RAD REPORT ---
EXAM DESCRIPTION: CT - Foot Right W Con - 02/14/2024 10:24 am CLINICAL HISTORY: Worsening cellulitis/swelling, eval for gas COMPARISON: No comparisons FINDINGS: Subcutaneous fluid collection overlying the great toe at the level of the distal metacarpa l measuring 3.3 by 0.8 x 2.4 cm. No soft tissue gas identified. No fracture or CT evidence of underly ing osteomyelitis. Calcaneal spurs. No soft tissue gas. IMPRESSION: Cellulitis with small subcutaneous abscess along the medial/dorsal aspect of the great t oe at the level of the distal first metatarsal. No disseminated gas to suggest a gas-forming infectio n. No evidence of underlying osteomyelitis.
[2024-02-14 12:43] LABS: Magnesium 2.4 mg/dL (1.6-2.4); Potassium 3.8 mEq/L (3.5-5.1)
[2024-02-14] MEDS: ACETAMINOPHEN 500 MG TAB PO PRN (14:38)
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
[2024-02-14] MEDS ORDERED: TRAZODONE 50 MG TABLET PO PRN (20:19)
[2024-02-14] MEDS: POTASSIUM 25 MEQ EFFERV TAB PO ONE (20:24)
[2024-02-15 03:35] LABS: Absolute Basophils 0.1 K/uL (0-0.5); Absolute Eosinophils 0.5 K/uL (0-0.5); Absolute Lymphocytes (CBC) 1.3 K/uL (0.7-4.9); Absolute Monocytes 0.7 K/uL (0.1-1.3); Absolute Neutrophil 8.2 K/uL (1.8-8.0); Basophils % 0.8 % (0-1.3); Eosinophils % 4.8 % (0-4.4); Hematocrit 42.1 % (39.6-49.0); Hemoglobin 14.1 g/dL (13.6-17.9); Lymphocytes % 12.1 % (15.3-44.8); MCH 30.5 pg (27.0-35.0); MCHC 33.4 g/dL (32.0-36.0); MCV 91.3 fL (80-100); MPV 7.3 fL (7.6-11.3); Monocytes % 6.6 % (3.3-12.3); Neutrophils % 75.7 % (41.7-73.7); Nucleated RBC Absolute Count 0.1 (0-0); Nucleated Red Blood Cells % 0.5 % (0-0); Platelets 368 thou/uL (152-406); RBC Red Blood Cell Count 4.61 M/uL (4.33-5.43); Red Cell Distribution Width 14.2 % (12.1-15.2)
[2024-02-15 03:55] LABS: Anion Gap 7.9 mEq/L (5.0-15.0); Magnesium 2.4 mg/dL (1.6-2.4); Phosphorus 2.8 mg/dL (2.5-4.9); Potassium 3.9 mEq/L (3.5-5.1)
[2024-02-15] MEDS: POTASSIUM CL SA 10 MEQ TAB PO ONE (07:59)
[2024-02-15] MEDS: HYDROMORPHONE HCL 0.5 MG/0.5 ML INJ IV PRN (09:49)
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
[2024-02-15] MEDS: HYDROCODONE/APAP 10/325 TAB PO SCH ×3 (12:24→21:20)
[2024-02-16] MEDS: LOPERAMIDE HCL 2 MG CAPSULE PO ONE (06:24)
[2024-02-16 07:37] LABS: Hematocrit 36.6 % (39.6-49.0); Hemoglobin 12.4 g/dL (13.6-17.9); MCH 30.8 pg (27.0-35.0); MCHC 33.9 g/dL (32.0-36.0); MCV 90.6 fL (80-100); MPV 6.4 fL (7.6-11.3); Platelets 344 thou/uL (152-406); RBC Red Blood Cell Count 4.03 M/uL (4.33-5.43); Red Cell Distribution Width 14.2 % (12.1-15.2)
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
[2024-02-16] MEDS: HYDROMORPHONE HCL 1 MG/ML INJ IV PRN (11:28)
[2024-02-16] MEDS: HYDRALAZINE HCL 20 MG/ML VIAL IV PRN (11:37)
[2024-02-16] MEDS ORDERED: FENTANYL CITR 100 MCG/2 ML ONE (13:42)
[2024-02-16] MEDS ORDERED: propofoL 200 MG/20 ML VIAL IV ONE (13:42)
[2024-02-16] MEDS ORDERED: LIDOCAINE 1% MPF 5 ML VIAL ONE (13:42)
[2024-02-16] MEDS ORDERED: MIDAZOLAM HCL 2 MG/2 ML INJ ONE (13:42)
[2024-02-16] MEDS: BUPIVACAINE 0.25% PF 30 ML VIAL ONE (13:55)
[2024-02-16] MEDS ORDERED: KETOROLAC 30 MG/ML INJ ONE (14:44)
[2024-02-16] MEDS ORDERED: dexAMETHasone 4 MG/ML VIAL ONE (14:44)
[2024-02-16] MEDS ORDERED: ONDANSETRON 4 MG/2 ML VIAL ONE (14:44)
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
[2024-02-16] MEDS: FENTANYL CITR 100 MCG/2 ML ONE (15:44)
[2024-02-16] MEDS: LOPERAMIDE HCL 2 MG CAPSULE PO PRN (20:23)
[2024-02-17 04:32] LABS: Hematocrit 36.6 % (39.6-49.0); Hemoglobin 12.3 g/dL (13.6-17.9); MCH 30.5 pg (27.0-35.0); MCHC 33.5 g/dL (32.0-36.0); MPV 6.9 fL (7.6-11.3); Platelets 390 thou/uL (152-406); RBC Red Blood Cell Count 4.02 M/uL (4.33-5.43); Red Cell Distribution Width 14.1 % (12.1-15.2)
[2024-02-17 04:45] LABS: Anion Gap 11.1 mEq/L (5.0-15.0); Potassium 4.1 mEq/L (3.5-5.1)
[2024-02-17] MEDS ORDERED: MELATONIN 5 MG TABLET PO PRN (08:26)
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
[2024-02-17] MEDS: HYDROMORPHONE HCL 1 MG/ML INJ IV PRN (09:00)
[2024-02-17] MEDS: HYDROMORPHONE HCL 0.5 MG/0.5 ML INJ IV ONE (15:22)
[2024-02-17] MEDS: VANCOMYCIN 1.5 GM in NA CHLORIDE 0.9% 500 ML IVPB SCH (18:18)
[2024-02-18 05:30] LABS: Hemoglobin 11.6 g/dL (13.6-17.9); MCH 30.8 pg (27.0-35.0); MCHC 34.3 g/dL (32.0-36.0); MCV 89.9 fL (80-100); MPV 6.5 fL (7.6-11.3); Platelets 403 thou/uL (152-406); RBC Red Blood Cell Count 3.78 M/uL (4.33-5.43); Red Cell Distribution Width 14.3 % (12.1-15.2)
[2024-02-18 06:26] LABS: Anion Gap 7.8 mEq/L (5.0-15.0); Potassium 3.8 mEq/L (3.5-5.1)
[2024-02-18 06:27] LABS: Magnesium 2.2; Phosphorus 3.6 mg/dL (2.5-4.9)
[2024-02-18] MEDS: LACTOBACILLUS/ACIDOPHILUS TAB PO SCH (07:45)
[2024-02-18] MEDS: POTASSIUM CL SA 10 MEQ TAB PO ONE (07:45)
[2024-02-18] MEDS: AMLODIPINE 5 MG TAB PO SCH (10:18)
[2024-02-18] MEDS: HYDROMORPHONE HCL 0.5 MG/0.5 ML INJ IV PRN (12:15)
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
[2024-02-18] MEDS: IBUPROFEN 600 MG TAB PO ONE (18:09)
[2024-02-19 05:48] LABS: Anion Gap 8.3 mEq/L (5.0-15.0); Potassium 3.3 mEq/L (3.5-5.1)
[2024-02-19 05:50] LABS: Hematocrit 36.8 % (39.6-49.0); Hemoglobin 12.3 g/dL (13.6-17.9); MCH 30.6 pg (27.0-35.0); MCHC 33.5 g/dL (32.0-36.0); MCV 91.3 fL (80-100); MPV 6.6 fL (7.6-11.3); Platelets 424 thou/uL (152-406); RBC Red Blood Cell Count 4.03 M/uL (4.33-5.43); Red Cell Distribution Width 14.5 % (12.1-15.2)
[2024-02-19 05:56] LABS: Barbiturates NEGATIVE (NEGATIVE); Benzodiazepines NEGATIVE (NEGATIVE); Cocaine NEGATIVE (NEGATIVE); METHAMPHETAM NEGATIVE (NEGATIVE); Methadone NEGATIVE (NEGATIVE); Opiates POSITIVE (NEGATIVE); Phencyclidine NEGATIVE (NEGATIVE); THC Cannibis NEGATIVE (NEGATIVE)
[2024-02-19] MEDS ORDERED: levoFLOXacin 500 MG TAB PO SCH (09:00)
[2024-02-19 09:04] VITALS: BP 145/88; TEMP 97.3
[2024-02-19 09:25] VITALS: O2SAT 97
[2024-02-19] MEDS: POTASSIUM CL SA 10 MEQ TAB PO ONE (09:29)
[2024-02-19] MEDS: DOXYCYCLINE 100 MG CAP PO SCH (09:29)
[2024-02-19] MEDS: levoFLOXacin 750 MG TAB PO SCH (09:30)
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
== END 2024-02-19 10:55 | disposition home or self-care (01) | DRG 571 ==
LOC: ER 14:01 → 2ND 16:37
PROVIDERS: ADMIT Internal Medicine; ATTEND Hospitalist
PROC: 0JBQ0ZZ Excision of Right Foot Subcutaneous Tissue and Fascia, Open Approach (ICD-10-PCS; principal; 2024-02-16 13:15)
PROC: 02HV33Z Insertion of Infusion Device into Superior Vena Cava, Percutaneous Approach (ICD-10-PCS; 2024-02-17)
DX: L03.115 Cellulitis of right lower limb (principal); K52.1 Toxic gastroenteritis and colitis; L02.611 Cutaneous abscess of right foot; I10 Essential (primary) hypertension; G89.29 Other chronic pain; M10.9 Gout, unspecified; E78.00 Pure hypercholesterolemia, unspecified; D72.829 Elevated white blood cell count, unspecified; I25.2 Old myocardial infarction; T50.4X5A Adverse effect of drugs affecting uric acid metabolism, initial encounter; T63.001A Toxic effect of unspecified snake venom, accidental (unintentional), initial encounter; Z23 Encounter for immunization; Z88.0 Allergy status to penicillin; Z88.1 Allergy status to other antibiotic agents; Z88.8 Allergy status to other drugs, medicaments and biological substances; Z90.49 Acquired absence of other specified parts of digestive tract; Z91.09 Other allergy status, other than to drugs and biological substances; Z86.73 Personal history of transient ischemic attack (TIA), and cerebral infarction without residual deficits; Y92.9 Unspecified place or not applicable
CPT/HCPCS: 36415; 73701; 80048; 80076; 80202; 80307; 81003; 83605; 83735; 83880; 84100; 84132; 84484; 84550; 85025; 85027; 85610; 85730; 87040; 90471; 90714; 93005; 93971; 99285; J0360; J0692; J1100; J1170; J1650; J2001; J2250; J2270; J2405; J2543; J2704; J3010; J3475; J7030; J7040; J7050; Q9967

== ENCOUNTER 2024-03-02 14:37 | Inpatient (IN) | payer MEDICARE ==
--- OUTSIDE RECORDS SUMMARY | 2024-03-02 14:43 | XMS REPORT | Continuity of Care Document ---
Author Name Unknown Address [address] [facility]. [address] [place] [address] [facility] thconnect Address [address] [facility] [address] [place] [address] Care Team Providers Care Translator Interpreter Name Role Phone Mahad Ross Primary Care Physician Rosana Red Attending Clinician Unavail able Mahad Ross Attending Clinician Unavailable Anitra Adame Attending Clinician Lana Chaparro Attending Clinician [phone] Tee Attending Clinician Unavailable ZANE LIU Attending Clinician Unavailable ZANE LIU Attending Clinician Unavailable Gloria Garcia Attending Clinician Corinna Stroud Attending Clinician CHRISTEN OBANDO Attending Clinician Unavailable Christen Obando DO Attending Clinician [phone] GERTRUDE CHINCHILLA Attending Clinician Unavailab Gertrude Contreras DO Attending Clinician [phone] Cobb_T Attending Clinician Unavailable Ayo ALLRED, Simón Gonzalez Attending Clinician Unavail able CALLIE CUELLAR Attending Clinician Unavailable Callie Cuellar DO Attending Clinician [phone] Deshazo_T Attending Clinician Unavailable Doctor Unassigned, Myra Attending Clinician U navailable NEELA ALBARADO Attending Clinician Unavail able NEELA ALBARADO Attending Clinician Unavail able VIKASH GRIMALDO Attending Clinician Unavailable Silva Szymanski MD Attending Clinician [phone] Vikash Grimaldo MD Attending Clinician [phone] OWENS_Will Attending Clinician Unavailable Gretta Ruiz Attending Clinician PARAG_Yajaira Attending Clinician Unavailable Love Campbell Attending Clinician [phone] Carson_B Admitting Clinician Unavailable CHRISTEN OBANDO Admitting Clinician Unavailable GERTRUDE CHINCHILLA Admitting Clinician Unavailab elma Murdock_Will Admitting Clinician Unavailable CALLIE CUELLAR Admitting Clinician Unavailable Callie Cuellar DO Admitting Clinician [phone] Desjuddzo_T Admitting Clinician Unavailable VIKASH GRIMALDO Admitting Clinician Unavailable Vikash Grimaldo MD Admitting Clinician [phone] OW_T Admitting Clinician Unavailable PARAG_Yajaira Admitting Clinician Unavailable Payers Payer Name Policy Type Policy Number Effective Date Expirati on Date Source [employer] [place] [id number] 2023 00:00:00 [facility] DEVOTED HE[employer] (MEDICARE REPLACEMENT HMO) [id number] 2021 00:00:00 DEVOTED [facility] MEDICARE ADVANTAGE PLAN [id number] 2020 00:00:00 [employer] C1 [id number] 2021 00:00:00 [facility] C1 [id number] 2021 00:00:00 [facility] C1 [id number] 2021 00:00:00 [place] [id number] 2021 00:00:00 [facility] Problems Condition Name Condition Details Condition Category Status Onset Date Resolution Date Last Treatment Date Treating Clinician Comments Source Chest pain, unspecifie d type Chest pain, unspecifie d type Disease Active 05-23 00:00: 00 [facility] Other hyperlipid emia Other hyperlipid emia Disease Active 05-23 00:00: 00 [facility] Drug abuse Drug abuse Disease Active 05-23 00:00: 00 [facility] Nonobstruc tive atheroscle rosis of coronary artery Nonobstruc tive atheroscle rosis of coronary artery Disease Active 05-23 00:00: 00 [facility] CAMDEN (acute kidney injury) CAMDEN (acute kidney injury) Disease Active 2020-09 00:00: 00 [facility] Esophageal spasm Esophageal spasm Disease Active 01-26 00:00: 00 [facility] A-fib A-fib Disease Active 01-20 00:00: 00 [facility] Atrial fibrillati on with RVR Atrial fibrillati on with RVR Disease Active 01-19 00:00: 00 [facility] Shortness of breath Shortness of breath Disease Active 01-19 00:00: 00 [facility] NSTEMI (non-ST elevated myocardial infarction ) NSTEMI (non-ST elevated myocardial infarction ) Disease Active 01-19 00:00: 00 [facility] Tobacco abuse Tobacco abuse Disease Active 01-19 00:00: 00 [facility] Family history of early CAD Family history of early CAD Disease Active 01-19 00:00: 00 [facility] Inguinal hernia Inguinal hernia Disease Active 2016-09 00:00: 00 [facility] Status epilepticu s Status epilepticu s Disease Active 01-22 00:00: 00 [facility] Seizure Seizure Disease Active 01-22 00:00: 00 [facility] [id number] COPD, mild Problem Com mon [facility] [id number] Leukocytos is, unspecifie d type Problem [facility] [id number] Developmen shruthi venous anomaly, cerebral Problem [facility] [id number] Diverticul osis large intestine w/o perforatio n or abscess w/bleeding Problem [facility] [id number] Atheroscle rosis of abdominal aorta Problem [facility] Cerebral infarction Cerebral infarction , unspecifie d Problem [facility] [id number] Chronic kidney disease, stage 3b Problem [facility] [id number] Osteoarthr itis of lumbar spine, unspecifie d spinal osteoarthr itis complicati on status Problem [facility] [id number] KATHERIN (obstructi ve sleep apnea) Problem [facility] [id number] Left lower lobe pulmonary nodule Problem [facility] [id number] Bipolar disorder, mixed Problem [facility] [id number] Other schizophre nicho Problem [facility] [id number] Altered mental status, unspecifie d altered mental status type Problem [facility] Stroke Stroke Problem [facility] [id number] Incontinen ce of feces, unspecifie d fecal incontinen ce type Problem [facility] Body mass index 30.00 to 34.99 Body mass index [BMI] 31.0-31.9, adult Problem [facility] Chronic kidney disease stage 3A (disorder) Chronic kidney disease, stage 3a Problem [facility] [id number] Primary insomnia Problem [facility] [id number] TIA (transient ischemic attack) Problem [facility] [id number] Aphasia Problem [facility] [id number] BMI 31.0-31.9, adult Problem [facility] [id number] Other obesity due to excess calories Problem [facility] [id number] Mixed hyperlipid emia Problem [facility] [id number] Paroxysmal atrial fibrillati on Problem [facility] [id number] Vitamin D deficiency Problem [facility] [id number] Primary osteoarthr itis of left knee Problem [facility] 65894052 Other chronic pain Problem [facility] [id number] Arthritis of knee, left Problem [facility] [id number] Essential hypertensi on Problem [facility] [id number] Tobacco use disorder, continuous Problem [facility] Allergic rhinitis Non-season al allergic rhinitis, unspecifie d trigger Problem [facility] [id number] Primary osteoarthr itis of left shoulder Problem [facility] [id number] Incomplete tear of left rotator cuff, unspecifie d whether traumatic Problem [facility] [id number] Persistent migraine aura with cerebral infarction , intractabl e, with status migrainosu s Problem [facility] [id number] Narcolepsy due to underlying condition without cataplexy Problem [facility] Primary osteoarthr itis Primary osteoarthr itis involving multiple joints Problem [facility] Allergies, Adverse Reactions, Alerts Allergy Name Allergy Type Status Severity Reaction(s) Onset Date Inactive Date Treating Clinician Comments Source LORAZEPA M DRUG INGREDI Active Anaphylaxis 05-23 00:00: 00 [facility] Lorazepa m Propensi ty to adverse reaction s Active Anaphylaxis 05-23 00:00: 00 Pt has had multiple administr ations of ativan IV as well as EM without any negative reactions . [facility] BENADRYL ALLERGY DECONGES TANT DRUG Active High Swelling 2018-09 00:00: 00 [facility] Benadryl Allergy Deconges tant Propensi ty to adverse reaction s Active Swelling 2018-09 00:00: 00 [facility] DIAZEPAM DRUG INGREDI Active High Anaphylaxis 2016-09 00:00: 00 [facility] Diazepam Propensi ty to adverse reaction s to drug Active Anaphylaxis 2016-09 00:00: 00 Patient states it'll stop his heart within seconds of taking it. [facility] PENICILL INS Drug Class Active Anaphylaxis 05-13 00:00: 00 [facility] Penicill ins Propensi ty to adverse reaction s Active Anaphylaxis 05-13 00:00: 00 [facility] Penicill ins Propensi ty to adverse reaction s Active Anaphylaxis 05-13 00:00: 00 [facility] BEE STING / VENOM DRUG INGREDI Active Anaphylaxis 01-22 00:00: 00 [facility] Bee Sting / Venom Propensi ty to adverse reaction s to drug Active Anaphylaxis 01-22 00:00: 00 [facility] VENOM-WA SP DRUG INGREDI Active Anaphylaxis 01-22 00:00: 00 [facility] Venom-Wa sp Propensi ty to adverse reaction s Active Anaphylaxis 01-22 00:00: 00 [facility] gabapent in gabapent in Active nausea and vomiting [facility] tramadol tramadol Active hallucinatio ns [facility] diazepam diazepam Active Stops heart C [facility] penicill in G penicill in G Active swells throat shut [facility] amitript yline amitript yline Active aggression [facility] alprazol am alprazol am Active Unknown [facility] Social History Social Habit Start Date Stop Date Quantity Comments Source History of Tobacco Use Current Smoker [facility] Sex Assigned At [facility] Exposure to SARS-CoV-2 (event) 2023-01-18 00:00:00 2023-01-28 13:20:00 Not sure [facility] Alcohol intake 2022-10-21 00:00:00 2022-10-21 00:00:00 Current non-drinker of alcohol (finding) [facility] Cigarette pack-years 2021-09-27 00:00:00 2021-09-27 00:00:00 [facility] Tobacco use and exposure 2021-09-27 00:00:00 2021-09-27 00:00:00 Smokeless tobacco non-user [facility] Education 2021-09-27 00:00:00 2021-09-27 00:00:00 8 [facility] Cigarettes smoked current (pack per day) - Reported 2021-09-27 00:00:00 2021-09-27 00:00:00 [facility] Smoking Status Start Date Stop Date Source Current Smoker 2024-02-26 00:00:00 [facility] Medications Ordered Medication Name Filled Medication Name Start Date Stop Date Current Medication? Ordering Clinician Indication Dosage Frequency Signature (SIG) Comments Components Source Metoprolol Succinate ER 25 MG Metoprolol Succinate ER 25 MG 02-25 00:00: 00 No 1{table t} QD Metoprolol Succinate ER 25 MG Nurtec 75 MG Nurtec 75 MG 02-25 00:00: 00 No 1{table t_on e_tongu e_and_a llow_to _dissol ve} QD Nurtec 75 MG BUPivacaine HCl BUPivacaine HCl 01-28 00:00: 00 No 4mL [facility] Cyclobenzap rine HCl 10 MG Cyclobenzap rine HCl 10 MG 01-14 00:00: 00 No 1{table t_at_be dtime_a s_neede d} QD Cyclobenza promise HCl 10 MG Lidocaine 5 % Lidocaine 5 % 01-14 00:00: 00 No QD Lidocaine 5 % Albuterol Sulfate HFA 108 (90 Base) MCG/ACT Albuterol Sulfate HFA 108 (90 Base) MCG/ACT 2022-09- 00:00: 00 No 1{puff_ as_need ed} 6xD Albuterol Sulfate HFA 108 (90 Base) MCG/ACT Montelukast Sodium 10 MG Montelukast Sodium 10 MG 2022-09 2- 00:00: 00 No 1{table t} QD Montelukas t Sodium 10 MG Cyanocobala min Cyanocobala min 02-12 00:00: 00 No 1000mL [facility] hydrOXYzine (ATARAX) tablet 25 mg 01-28 18:45: 00 01-28 18:51 :00 No 25mg 25 mg, Oral, ONCE, 1 dose, On Fri01/28/23 at 1345, [facility] dextrose 50 % in water (D50W) injection 50 mL 2021-09 19:30: 00 08-30 18:42 :00 No 50mL 50 mL, Slow IV Push, ONCE, 1 dose, On Fri08/30/22 at 1330, Routine [facility] NaCl 0.9% (NS) bolus infusion 1,000 mL 2021-09 17:45: 00 08-30 19:38 :00 No 1000mL at 999 mL/hr, 1,000 mL, IV Infusion, ONCE, 1 dose, On Fri08/30/22 at 1145, [facility] NaCl 0.9% (NS) bolus infusion 1,000 mL 2021-09 16:00: 00 08-30 16:53 :00 No 1000mL at 999 mL/hr, 1,000 mL, IV Infusion, ONCE, 1 dose, On Fri08/30/22 at 1000, [facility] NaCl 0.9% (NS) bolus infusion 1,000 mL 2021-09 14:45: 00 08-30 15:24 :00 No 1000mL at 999 mL/hr, 1,000 mL, IV Infusion, ONCE, 1 dose, On Fri08/30/22 at 0845, [facility] carvediloL 3.125 mg tablet 05-25 00:00: 00 06-25 04:59 :00 No [id number] 3.125mg Take 1 tablet by mouth in the morning and 1 tablet in the evening. Take with meals. Do all this for 30 days. [facility] nicotine 21 mg/24 hr patch 05-24 17:45: 28 Yes 1{patch } Apply 1 Patch to area(s) every 24 (twenty-fo ur) hours. Patient reports he smokes 13 cigarettes per day. [facility] hydrOXYzine (ATARAX) tablet 10 mg 05-24 15:14: 53 Yes 10mg 10 mg, Oral, Q6HPRN, Starting on Fri05/24/22 at 1014, Until Discontinu ed, Routine, Anxiety, Itching [facility] polyethylen e glycol 3350 powder 17 g 05-24 14:00: 00 Yes 17g 17 g, Oral, DAILY, First dose on Fri05/24/22 at 0900, Until Discontinu ed, Routine [facility] pantoprazol e (PROTONIX) EC tablet 40 mg 05-24 14:00: 00 Yes 40mg 40 mg, Oral, DAILY, First dose on Fri05/24/22 at 0900, Until Discontinu ed, Routine [facility] lisinopriL (PRINIVIL,Z ESTRIL) tablet 2.5 mg 05-24 14:00: 00 Yes 2.5mg 2.5 mg, Oral, DAILY, First dose on Fri05/24/22 at 0900, Until Discontinu ed, Routine [facility] isosorbide mononitrate (IMDUR) 24 hr tablet 30 mg 05-24 14:00: 00 Yes 30mg 30 mg, Oral, DAILY, First dose on Fri05/24/22 at 0900, Until Discontinu ed, Routine [facility] atorvastati n (LIPITOR) tablet 80 mg 05-24 14:00: 00 Yes 80mg 80 mg, Oral, DAILY, First dose on Fri05/24/22 at 0900, Until Discontinu ed, Routine [facility] aspirin chewable tablet 81 mg 05-24 14:00: 00 Yes 81mg 81 mg, Oral, DAILY, First dose on Fri05/24/22 at 0900, Until Discontinu ed, Routine [facility] carvediloL (COREG) tablet 3.125 mg 05-24 13:00: 00 Yes 3.125mg 3.125 mg, Oral, BID MEALS, First dose on Fri05/24/22 at 0800, Until Discontinu ed, Routine [facility] NaCl 0.9% (NS) IV infusion 1,000 mL 05-24 01:30: 00 Yes 1000mL at 75 mL/hr, IV Infusion, CONTINUOUS , Starting on Fri05/23/22 at 2030, Until Discontinu ed, Routine [facility] sennosides- docusate sodium (SENOKOT-S) 8.6-50 mg per tablet 1 tablet 05-24 01:00: 00 Yes 1{tbl} 1 tablet, Oral, BID, First dose on Fri05/23/22 at 2000, Until Discontinu ed, Routine [facility] enoxaparin (LOVENOX) injection 90 mg 05-24 01:00: 00 Yes 1mg/kg 90 mg (rounded from 93 mg = 1 mg/kg ?93 kg), Subcutaneo us, Q12H, First dose (after last modificati on) on Fri05/23/22 at 2000, Until Discontinu ed, Routine [facility] nicotine (NICODERM) 21 mg/24 hr patch 1 Patch 05-24 00:45: 00 Yes 1{patch } 1 Patch, Topical, Administer over 24 Hours, Q24H, First dose on Fri05/23/22 at 1945, Until Discontinu ed, Routine [facility] hydrOXYzine 10 mg tablet 05-24 00:00: 00 06-24 04:59 :00 No [id number] 10mg Take 1 tablet by mouth every 6 (six) hours as needed for Anxiety for up to 30 days. [facility] enoxaparin (LOVENOX) injection 40 mg 05-23 22:00: 00 05-23 23:48 :16 No 40mg 40 mg, Subcutaneo us, DAILY, First dose on Fri05/23/22 at 1700, Until Discontinu ed, Routine [facility] ondansetron (ZOFRAN (PF)) injection 4 mg 05-23 19:56: 03 Yes 4mg 4 mg, Slow IV Push, Q6HPRN, Starting on Fri05/23/22 at 1456, Until Discontinu ed, Routine, Nausea and Vomiting (N/V) [facility] HYDROcodone -acetaminop hen (NORCO 5) 5-325 mg tablet 1 tablet 05-23 19:55: 52 05-25 19:54 :52 No 1{tbl} 1 tablet, Oral, Q6HPRN, Starting on Nohemy 05/23/22 at 1455, Until 05/25/22 at 1454, Routine, Pain (scale 4-6) [facility] acetaminoph en (TYLENOL) tablet 650 mg 05-23 19:55: 49 Yes 650mg 650 mg, Oral, Q6HPRN, Starting on Fri05/23/22 at 1455, Until Discontinu ed, Routine, Pain (scale 1-3) [facility] NaCl 0.9% (NS) bolus infusion 1,000 mL 05-23 18:45: 00 05-23 22:25 :22 No 1000mL at 999 mL/hr, 1,000 mL, IV Infusion, ONCE, 1 dose, On Fri05/23/22 at 1345, VANNA [facility] NaCl 0.9% (NS) bolus infusion 1,000 mL 05-23 15:15: 00 05-23 18:21 :00 No 1000mL at 999 mL/hr, 1,000 mL, IV Infusion, ONCE, 1 dose, On Fri05/23/22 at 1015, [facility] LORazepam (ATIVAN) injection 1 mg 05-23 13:30: 00 05-23 13:45 :00 No 1mg 1 mg, Slow IV Push, ONCE, 1 dose, On Fri05/23/22 at 0830, STAT
Is the medication being used for status epilepticu s? No [facility] Kenalog (Triamcinol one) Kenalog (Triamcinol one) 05-22 00:00: 00 No 40mg [facility] Bupivicaine Minot Bupivicaine Minot 24 00:00: 00 No 2.5mg [facility] atorvastati n 80 mg tablet 01-27 00:00: 00 Yes 80mg Take 1 tablet by mouth daily. [facility] pantoprazol e 40 mg EC tablet 01-27 00:00: 00 Yes 40mg Take 1 tablet by mouth daily. [facility] isosorbide mononitrate 30 mg 24 hr tablet 01-27 00:00: 00 Yes 30mg Take 1 tablet by mouth daily. [facility] aspirin 81 mg chewable tablet 01-26 00:00: 00 Yes 81mg Take 1 tablet by mouth daily. [facility] lisinopril 2.5 mg tablet 01-26 00:00: 00 Yes 2.5mg Take 1 tablet by mouth daily. [facility] metoprolol succinate XL 50 mg 24 hr tablet 01-26 00:00: 00 05-24 00:00 :00 No 50mg Take 1 tablet by mouth 2 (two) times daily. [facility] zolpidem 5 mg tablet 01-26 00:00: 00 05-24 00:00 :00 No 5mg Take 1 tablet by mouth at bedtime as needed for Insomnia. [facility] sulindac (CLINORIL) 200 mg tablet 15 00:00: 00 05-24 00:00 :00 No 200mg Take 1 tablet by mouth 2 (two) times daily. [facility] Lumateperon e Tosylate 10.5 MG Lumateperon e Tosylate 10.5 MG No 1{capsu le} QD Lumatepero ne Tosylate 10.5 MG Atorvastati n Calcium 40 mg Atorvastati n Calcium 40 mg No 1{table t} QD Atorvastat in Calcium 40 mg Aspirin Adult Low Strength 81 MG Aspirin Adult Low Strength 81 MG No 1{table t} QD Aspirin Adult Low Strength 81 MG Folic Acid 1 MG Folic Acid 1 MG No Folic Acid 1 MG Eszopiclone 2 MG Eszopiclone 2 MG No 1{table t_immed iately_ before_ bedtime } QD Eszopiclon e 2 MG Ondansetron 4 MG Ondansetron 4 MG No 1{table t_on_ e_tongu e_and_a llow_to _dissol ve} QD Ondansetro [...] No 1{puff} BID Wixela Inhub 100-50 MCG/ACT amLODIPine Besylate 5 MG amLODIPine Besylate 5 MG No 1{table t} QD amLODIPine Besylate 5 MG Doxycycline Monohydrate 100 MG Doxycycline Monohydrate 100 MG No 1{table t} BID Doxycyclin e Monohydrat e 100 MG DULoxetine HCl 20 MG DULoxetine HCl 20 MG No DULoxetine HCl 20 MG Immunizations Ordered Immunization Name Filled Immunization Name Date Status Comments Source Kenalog (Triamcinolone) Kenalog (Triamcinolone) 2021-07-11 09:32:00 Completed [facility] Bupivicaine Minot Bupivicaine [place] 2021-06-26 09:38:00 Completed [facility] Kenalog (Triamcinolone) Kenalog (Triamcinolone) 2021-06-26 09:38:00 Completed [facility] Bupivicaine [place] Bupivicaine [place] 2021-06-26 09:38:00 Completed [facility] Kenalog (Triamcinolone) Kenalog (Triamcinolone) 2021-06-26 09:38:00 Completed [facility] Bupivicaine [place] Bupivicaine [place] 2021-06-26 09:38:00 Completed [facility] Kenalog (Triamcinolone) Kenalog (Triamcinolone) 2021-06-26 09:38:00 Completed [facility] Bupivicaine [place] Bupivicaine Minot 2021-06-26 09:38:00 Completed [facility] Kenalog (Triamcinolone) Kenalog (Triamcinolone) 2021-06-26 09:38:00 Completed [facility] Bupivicaine [place] Bupivicaine Minot 2021-05-22 08:55:00 Completed [facility] Kenalog (Triamcinolone) Kenalog (Triamcinolone) 2021-05-22 08:55:00 Completed [facility] Bupivicaine Minot Bupivicaine Minot 2021-05-22 08:55:00 Completed [facility] Kenalog (Triamcinolone) Kenalog (Triamcinolone) 2021-05-22 08:55:00 Completed [facility] Bupivicaine [place] Bupivicaine [place] 2021-05-22 08:55:00 Completed [facility] Kenalog (Triamcinolone) Kenalog (Triamcinolone) 2021-05-22 08:55:00 Completed [facility] Bupivicaine [place] Bupivicaine [place] 2021-05-22 08:55:00 Completed [facility] Kenalog (Triamcinolone) Kenalog (Triamcinolone) 2021-05-22 08:55:00 Completed [facility] Pneumococcal Polysaccharide, PPSV23 (PNEUMOVAX) 2018-01-26 00:00:00 Completed [facility] Pneumococcal Polysaccharide, PPSV23 (PNEUMOVAX) 2018-01-26 00:00:00 Completed [facility] Pneumococcal Polysaccharide, PPSV23 (PNEUMOVAX) 2018-01-26 00:00:00 Completed [facility] Pneumococcal Polysaccharide, PPSV23 (PNEUMOVAX) 2018-01-26 00:00:00 Completed [facility] Pneumococcal Polysaccharide, PPSV23 (PNEUMOVAX) 2018-01-26 00:00:00 Completed [facility] Pneumococcal Polysaccharide, PPSV23 (PNEUMOVAX) 2018-01-26 00:00:00 Completed [facility] Pneumococcal Polysaccharide, PPSV23 (PNEUMOVAX) 2018-01-26 00:00:00 Completed [facility] Adacel (Tdap) Adacel (Tdap) 2015-01-11 14:09:00 Completed [facility] Adacel (Tdap) Adacel (Tdap) 2015-01-11 14:09:00 Completed [facility] Adacel (Tdap) Adacel (Tdap) 2015-01-11 14:09:00 Completed [facility] Adacel (Tdap) Adacel (Tdap) 2015-01-11 14:09:00 Completed [facility] Adacel (Tdap) Adacel (Tdap) 2015-01-11 14:09:00 Completed [facility] Adacel (Tdap) Adacel (Tdap) 2015-01-11 14:09:00 Completed [facility] Adacel (Tdap) Adacel (Tdap) 2015-01-11 14:09:00 Completed [facility] Adacel (Tdap) Adacel (Tdap) 2015-01-11 14:09:00 Completed [facility] Adacel (Tdap) Adacel (Tdap) 2015-01-11 14:09:00 Completed [facility] Adacel (Tdap) Adacel (Tdap) 2015-01-11 14:09:00 Completed [facility] Adacel (Tdap) Adacel (Tdap) 2015-01-11 14:09:00 Completed [facility] Adacel (Tdap) Adacel (Tdap) 2015-01-11 14:09:00 Completed [facility] Adacel (Tdap) Adacel (Tdap) 2015-01-11 14:09:00 Completed [facility] Adacel (Tdap) Adacel (Tdap) 2015-01-11 14:09:00 Completed [facility] Adacel (Tdap) Adacel (Tdap) 2015-01-11 14:09:00 Completed [facility] Adacel (Tdap) Adacel (Tdap) 2015-01-11 14:09:00 Completed [facility] Adacel (Tdap) Adacel (Tdap) 2015-01-11 14:09:00 Completed [facility] Adacel (Tdap) Adacel (Tdap) 2015-01-11 14:09:00 Completed [facility] Adacel (Tdap) Adacel (Tdap) 2015-01-11 14:09:00 Completed [facility] Adacel (Tdap) Adacel (Tdap) 2015-01-11 14:09:00 Completed [facility] Adacel (Tdap) Adacel (Tdap) 2015-01-11 14:09:00 Completed [facility] Adacel (Tdap) Adacel (Tdap) 2015-01-11 14:09:00 Completed [facility] Adacel (Tdap) Adacel (Tdap) 2015-01-11 14:09:00 Completed [facility] Adacel (Tdap) Adacel (Tdap) 2015-01-11 14:09:00 Completed [facility] Adacel (Tdap) Adacel (Tdap) 2015-01-11 14:09:00 Completed [facility] Adacel (Tdap) Adacel (Tdap) Unknown Com[facility] Adacel (Tdap) Adacel (Tdap) Unknown Completed [facility] Adacel (Tdap) Adacel (Tdap) Unknown Completed [facility] Adacel (Tdap) Adacel (Tdap) Unknown Completed [facility] Adacel (Tdap) Adacel (Tdap) Unknown Completed [facility] Adacel (Tdap) Adacel (Tdap) Unknown Completed [facility] Adacel (Tdap) Adacel (Tdap) Unknown Completed [facility] Adacel (Tdap) Adacel (Tdap) Unknown Completed [facility] Adacel (Tdap) Adacel (Tdap) Unknown Completed [facility] Adacel (Tdap) Adacel (Tdap) Unknown Completed [facility] Adacel (Tdap) Adacel (Tdap) Unknown Completed [facility] Adacel (Tdap) Adacel (Tdap) Unknown Completed [facility] Adacel (Tdap) Adacel (Tdap) Unknown Completed [facility] Adacel (Tdap) Adacel (Tdap) Unknown Completed [facility] Adacel (Tdap) Adacel (Tdap) Unknown Completed [facility] Adacel (Tdap) Adacel (Tdap) Unknown Completed [facility] Adacel (Tdap) Adacel (Tdap) Unknown Completed [facility] Adacel (Tdap) Adacel (Tdap) Unknown Completed [facility] Adacel (Tdap) Adacel (Tdap) Unknown Completed [facility] Adacel (Tdap) Adacel (Tdap) Unknown Completed [facility] Adacel (Tdap) Adacel (Tdap) Unknown Completed [facility] Adacel (Tdap) Adacel (Tdap) Unknown Completed [facility] Adacel (Tdap) Adacel (Tdap) Unknown Completed [facility] Adacel (Tdap) Adacel (Tdap) Unknown Completed [facility] Adacel (Tdap) Adacel (Tdap) Unknown Completed [facility] Adacel (Tdap) Adacel (Tdap) Unknown Completed [facility] Adacel (Tdap) Adacel (Tdap) Unknown Completed [facility] Adacel (Tdap) Adacel (Tdap) Unknown Completed [facility] Adacel (Tdap) Adacel (Tdap) Unknown Completed [facility] Prevnar 20 (PCV20) Prevnar 20 (PCV20) Unknown Completed [facility] Adacel (Tdap) Adacel (Tdap) Unknown Completed [facility] Prevnar 20 (PCV20) Prevnar 20 (PCV20) Unknown Completed [facility] Adacel (Tdap) Adacel (Tdap) Unknown Completed [facility] Prevnar 20 (PCV20) Prevnar 20 (PCV20) Unknown Completed [facility] Adacel (Tdap) Adacel (Tdap) Unknown Completed [facility] Prevnar 20 (PCV20) Prevnar 20 (PCV20) Unknown Completed [facility] Adacel (Tdap) Adacel (Tdap) Unknown Completed [facility] Prevnar 20 (PCV20) Prevnar 20 (PCV20) Unknown Completed [facility] Adacel (Tdap) Adacel (Tdap) Unknown Completed [facility] Prevnar 20 (PCV20) Prevnar 20 (PCV20) Unknown Completed [facility] Adacel (Tdap) Adacel (Tdap) Unknown Completed [facility] Prevnar 20 (PCV20) Prevnar 20 (PCV20) Unknown Completed [facility] Adacel (Tdap) Adacel (Tdap) Unknown Completed [facility] Prevnar 20 (PCV20) Prevnar 20 (PCV20) Unknown Completed [facility] Adacel (Tdap) Adacel (Tdap) Unknown Completed Co on [facility] Prevnar 20 (PCV20) Prevnar 20 (PCV20) Unknown Completed [facility] Adacel (Tdap) Adacel (Tdap) Unknown Completed [facility] Prevnar 20 (PCV20) Prevnar 20 (PCV20) Unknown Completed [facility] Adacel (Tdap) Adacel (Tdap) Unknown Completed [facility] Prevnar 20 (PCV20) Prevnar 20 (PCV20) Unknown Completed [facility] Adacel (Tdap) Adacel (Tdap) Unknown Completed Co on [facility] Prevnar 20 (PCV20) Prevnar 20 (PCV20) Unknown Completed [facility] Adacel (Tdap) Adacel (Tdap) Unknown Completed Co on [facility] Prevnar 20 (PCV20) Prevnar 20 (PCV20) Unknown Completed [facility] Adacel (Tdap) Adacel (Tdap) Unknown Completed Co on [facility] Prevnar 20 (PCV20) Prevnar 20 (PCV20) Unknown Completed [facility] Adacel (Tdap) Adacel (Tdap) Unknown Completed Co on [facility] Prevnar 20 (PCV20) Prevnar 20 (PCV20) Unknown Completed [facility] Adacel (Tdap) Adacel (Tdap) Unknown Completed [facility] Prevnar 20 (PCV20) Prevnar 20 (PCV20) Unknown Completed [facility] Adacel (Tdap) Adacel (Tdap) Unknown Completed Co on [facility] Prevnar 20 (PCV20) Prevnar 20 (PCV20) Unknown Completed [facility] Adacel (Tdap) Adacel (Tdap) Unknown Completed [facility] Prevnar 20 (PCV20) Prevnar 20 (PCV20) Unknown Completed [facility] Adacel (Tdap) Adacel (Tdap) Unknown Completed Co on [facility] Prevnar 20 (PCV20) Prevnar 20 (PCV20) Unknown Completed [facility] Adacel (Tdap) Adacel (Tdap) Unknown Completed [facility] Prevnar 20 (PCV20) Prevnar 20 (PCV20) Unknown Completed [facility] Adacel (Tdap) Adacel (Tdap) Unknown Completed [facility] Prevnar 20 (PCV20) Prevnar 20 (PCV20) Unknown Completed [facility] Adacel (Tdap) Adacel (Tdap) Unknown Completed Co on [facility] Prevnar 20 (PCV20) Prevnar 20 (PCV20) Unknown Completed [facility] Adacel (Tdap) Adacel (Tdap) Unknown Completed Co on [facility] Prevnar 20 (PCV20) Prevnar 20 (PCV20) Unknown Completed [facility] Adacel (Tdap) Adacel (Tdap) Unknown Completed Co on [facility] Prevnar 20 (PCV20) Prevnar 20 (PCV20) Unknown Completed [facility] Adacel (Tdap) Adacel (Tdap) Unknown Completed Co on [facility] Prevnar 20 (PCV20) Prevnar 20 (PCV20) Unknown Completed [facility] Adacel (Tdap) Adacel (Tdap) Unknown Completed [facility] Prevnar 20 (PCV20) Prevnar 20 (PCV20) Unknown Completed [facility] Adacel (Tdap) Adacel (Tdap) Unknown Completed Co on [facility] Prevnar 20 (PCV20) Prevnar 20 (PCV20) Unknown Completed [facility] Adacel (Tdap) Adacel (Tdap) Unknown Completed [facility] Prevnar 20 (PCV20) Prevnar 20 (PCV20) Unknown Completed [facility] Adacel (Tdap) Adacel (Tdap) Unknown Completed Co on [facility] Adacel (Tdap) Adacel (Tdap) Unknown Completed Co on [facility] Adacel (Tdap) Adacel (Tdap) Unknown Completed Co on [facility] Adacel (Tdap) Adacel (Tdap) Unknown Completed Co on [facility] Vital Signs Vital Name Observation Time Observation Value Comments S tricia height 2024-02-26 11:20:00 66 [in_i] Commo n [facility] weight 2024-02-26 11:20:00 190 [lb_av] Comm on [facility] temperature 2024-02-26 11:20:00 98.4 [degF] Com [facility] bmi 2024-02-26 11:20:00 30.66 kg/m2 Comm on [facility] oximetry 2024-02-26 11:20:00 97 % Commo n [facility] respiratory rate 2024-02-26 11:20:00 18 /min [facility] blood pressure systolic 2024-02-26 11:20:00 142 mm[Hg] [facility] blood pressure diastolic 2024-02-26 11:20:00 100 mm[Hg] [facility] height 2024-01-29 15:00:00 66 [in_i] Commo n [facility] weight 2024-01-29 15:00:00 193 [lb_av] Comm on [facility] temperature 2024-01-29 15:00:00 98.0 [degF] Com [facility] bmi 2024-01-29 15:00:00 31.15 kg/m2 Comm on [facility] blood pressure systolic 2024-01-29 15:00:00 136 mm[Hg] [facility] blood pressure diastolic 2024-01-29 15:00:00 84 mm[Hg] [facility] height 2024-01-27 10:00:00 66 [in_i] Commo n [facility] weight 2024-01-27 10:00:00 190 [lb_av] Comm on [facility] temperature 2024-01-27 10:00:00 98.4 [degF] Com mon [facility] bmi 2024-01-27 10:00:00 30.66 kg/m2 Comm on [facility] oximetry 2024-01-27 10:00:00 96 % Commo n [facility] respiratory rate 2024-01-27 10:00:00 18 /min [facility] blood pressure systolic 2024-01-27 10:00:00 127 mm[Hg] [facility] blood pressure diastolic 2024-01-27 10:00:00 79 mm[Hg] [facility] height 2024-01-15 08:00:00 66 [in_i] Commo n [facility] weight 2024-01-15 08:00:00 196 [lb_av] Comm on [facility] temperature 2024-01-15 08:00:00 98 [degF] Comm on [facility] bmi 2024-01-15 08:00:00 31.63 kg/m2 Comm on [facility] oximetry 2024-01-15 08:00:00 96 % Commo n [facility] respiratory rate 2024-01-15 08:00:00 16 /min [facility] blood pressure systolic 2024-01-15 08:00:00 122 mm[Hg] [facility] blood pressure diastolic 2024-01-15 08:00:00 71 mm[Hg] [facility] height 2023-12-10 15:00:00 66 [in_i] Commo n [facility] weight 2023-12-10 15:00:00 193 [lb_av] Comm on [facility] temperature 2023-12-10 15:00:00 99.2 [degF] Com [facility] bmi 2023-12-10 15:00:00 31.15 kg/m2 Comm on [facility] oximetry 2023-12-10 15:00:00 97 % Commo n [facility] respiratory rate 2023-12-10 15:00:00 16 /min [facility] blood pressure systolic 2023-12-10 15:00:00 142 mm[Hg] [facility] blood pressure diastolic 2023-12-10 15:00:00 98 mm[Hg] [facility] height 2023-12-10 15:00:00 66 [in_i] Commo n [facility] weight 2023-12-10 15:00:00 193 [lb_av] Comm on [facility] temperature 2023-12-10 15:00:00 99.2 [degF] Com [facility] bmi 2023-12-10 15:00:00 31.15 kg/m2 Comm on [facility] oximetry 2023-12-10 15:00:00 97 % Commo n [facility] respiratory rate 2023-12-10 15:00:00 16 /min [facility] blood pressure systolic 2023-12-10 15:00:00 142 mm[Hg] [facility] blood pressure diastolic 2023-12-10 15:00:00 98 mm[Hg] [facility] height 2023-11-03 16:20:00 66 [in_i] Commo n [facility] weight 2023-11-03 16:20:00 198.0 [lb_av] Co mmon [facility] temperature 2023-11-03 16:20:00 97.8 [degF] Com [facility] bmi 2023-11-03 16:20:00 31.95 kg/m2 Comm on [facility] oximetry 2023-11-03 16:20:00 95 % Commo n [facility] blood pressure systolic 2023-11-03 16:20:00 150 mm[Hg] [facility] blood pressure diastolic 2023-11-03 16:20:00 76 mm[Hg] [facility] height 2023-10-17 15:40:00 66 [in_i] Commo n [facility] weight 2023-10-17 15:40:00 198.4 [lb_av] Co mmon [facility] temperature 2023-10-17 15:40:00 98.3 [degF] Com [facility] bmi 2023-10-17 15:40:00 32.02 kg/m2 Comm on [facility] oximetry 2023-10-17 15:40:00 96 % Commo n [facility] respiratory rate 2023-10-17 15:40:00 18 /min [facility] blood pressure systolic 2023-10-17 15:40:00 148 mm[Hg] [facility] blood pressure diastolic 2023-10-17 15:40:00 90 mm[Hg] [facility] height 2023-09-16 09:00:00 66 [in_i] Commo n [facility] weight 2023-09-16 09:00:00 197 [lb_av] Comm on [facility] temperature 2023-09-16 09:00:00 98.1 [degF] Com [facility] bmi 2023-09-16 09:00:00 31.79 kg/m2 Comm on [facility] oximetry 2023-09-16 09:00:00 96 % Commo n [facility] respiratory rate 2023-09-16 09:00:00 17 /min [facility] blood pressure systolic 2023-09-16 09:00:00 160 mm[Hg] [facility] blood pressure diastolic 2023-09-16 09:00:00 90 mm[Hg] [facility] height 2023-07-08 15:20:00 66 [in_i] Commo n [facility] weight 2023-07-08 15:20:00 197.6 [lb_av] Co m[facility] temperature 2023-07-08 15:20:00 97.2 [degF] Com [facility] bmi 2023-07-08 15:20:00 31.89 kg/m2 Comm on [facility] oximetry 2023-07-08 15:20:00 98 % Commo n [facility] respiratory rate 2023-07-08 15:20:00 16 /min [facility] blood pressure systolic 2023-07-08 15:20:00 138 mm[Hg] [facility] blood pressure diastolic 2023-07-08 15:20:00 76 mm[Hg] [facility] height 2023-05-15 08:00:00 66 [in_i] Commo n [facility] weight 2023-05-15 08:00:00 195 [lb_av] Comm on [facility] temperature 2023-05-15 08:00:00 97.3 [degF] Com [facility] bmi 2023-05-15 08:00:00 31.47 kg/m2 Comm on [facility] oximetry 2023-05-15 08:00:00 92 % Commo n [facility] respiratory rate 2023-05-15 08:00:00 16 /min [facility] blood pressure systolic 2023-05-15 08:00:00 132 mm[Hg] [facility] blood pressure diastolic 2023-05-15 08:00:00 70 mm[Hg] [facility] height 2023-02-12 16:00:00 66 [in_i] Commo n [facility] weight 2023-02-12 16:00:00 195.2 [lb_av] Co m[facility] temperature 2023-02-12 16:00:00 98.0 [degF] Com mon [facility] bmi 2023-02-12 16:00:00 31.5 kg/m2 [facility] oximetry 2023-02-12 16:00:00 95 % [facility] respiratory rate 2023-02-12 16:00:00 17 /min [facility] blood pressure systolic 2023-02-12 16:00:00 136 mm[Hg] [facility] blood pressure diastolic 2023-02-12 16:00:00 79 mm[Hg] [facility] Systolic blood pressure 2023-01-28 18:22:00 157 mm[Hg] [facility] Diastolic blood pressure 2023-01-28 18:22:00 96 mm[Hg] [facility] Heart rate 2023-01-28 18:22:00 78 /min [facility] temperature 2023-01-28 18:22:00 37.17 [facility] Respiratory rate 2023-01-28 18:22:00 18 /min [facility] Body weight 2023-01-28 18:22:00 83.915 kg [facility] BMI 2023-01-28 18:22:00 29.86 kg/m2 [facility] Oxygen saturation in Arterial blood by Pulse oximetry 2023-01-28 18:22:00 95 /min [facility] height 2023-01-27 08:30:00 66 [facility] 08:30:00 200 [lb_av] Comm on [facility] temperature 2023-01-27 08:30:00 97.8 [degF] Com mon [facility] bmi 2023-01-27 08:30:00 32.28 kg/m2 Comm on [facility] blood pressure systolic 2023-01-27 08:30:00 132 mm[Hg] [facility] blood pressure diastolic 2023-01-27 08:30:00 80 mm[Hg] [facility] height 2022-12-11 10:30:00 66 [in_i] Commo n [facility] weight 2022-12-11 10:30:00 198.5 [lb_av] Co mmon [facility] temperature 2022-12-11 10:30:00 97.2 [degF] Com mon [facility] bmi 2022-12-11 10:30:00 32.04 kg/m2 Comm on [facility] blood pressure systolic 2022-12-11 10:30:00 138 mm[Hg] [facility] blood pressure diastolic 2022-12-11 10:30:00 84 mm[Hg] [facility] height 2022-11-14 14:50:00 66 [in_i] Commo n [facility] weight 2022-11-14 14:50:00 200 [lb_av] Comm on [facility] temperature 2022-11-14 14:50:00 98.1 [degF] Com mon [facility] bmi 2022-11-14 14:50:00 32.28 kg/m2 Comm on [facility] oximetry 2022-11-14 14:50:00 98 % Commo n [facility] respiratory rate 2022-11-14 14:50:00 16 /min [facility] blood pressure systolic 2022-11-14 14:50:00 138 mm[Hg] [facility] blood pressure diastolic 2022-11-14 14:50:00 78 mm[Hg] [facility] height 2022-11-14 15:00:00 66 [in_i] Commo n [facility] weight 2022-11-14 15:00:00 200 [lb_av] Comm on [facility] temperature 2022-11-14 15:00:00 98.1 [degF] Com mon [facility] bmi 2022-11-14 15:00:00 32.28 kg/m2 Comm on [facility] oximetry 2022-11-14 15:00:00 98 % Commo n [facility] respiratory rate 2022-11-14 15:00:00 16 /min [facility] blood pressure systolic 2022-11-14 15:00:00 138 mm[Hg] [facility] blood pressure diastolic 2022-11-14 15:00:00 78 mm[Hg] [facility] height 2022-11-14 09:30:00 66 [in_i] Commo n [facility] weight 2022-11-14 09:30:00 200 [lb_av] Comm on [facility] temperature 2022-11-14 09:30:00 97.9 [degF] Com mon [facility] bmi 2022-11-14 09:30:00 32.28 kg/m2 Comm on [facility] blood pressure systolic 2022-11-14 09:30:00 132 mm[Hg] [facility] blood pressure diastolic 2022-11-14 09:30:00 80 mm[Hg] [facility] Systolic blood pressure 2022-10-20 12:25:00 125 mm[Hg] [facility] Diastolic blood pressure 2022-10-20 12:25:00 76 mm[Hg] [facility] Heart rate 2022-10-20 12:25:00 52 /min [facility] Respiratory rate 2022-10-20 12:25:00 14 /min [facility] Oxygen saturation in Arterial blood by Pulse oximetry 2022-10-20 12:25:00 93 /min [facility] Body temperature 2022-10-20 10:46:00 37.39 [facility] Body height 2022-10-20 10:46:00 167.6 cm [facility] Body weight 2022-10-20 10:46:00 85.7 kg [facility] BMI 2022-10-20 10:46:00 30.49 kg/m2 [facility] Systolic blood pressure 2022-08-30 20:50:00 92 mm[Hg] [facility] Diastolic blood pressure 2022-08-30 20:50:00 64 mm[Hg] [facility] Heart rate 2022-08-30 20:50:00 53 /min [facility] Respiratory rate 2022-08-30 20:50:00 20 /min [facility] Oxygen saturation in Arterial blood by Pulse oximetry 2022-08-30 20:50:00 94 /min [facility] Body temperature 2022-08-30 13:47:00 35.67 Sh[facility] Body height 2022-08-30 13:47:00 175.3 cm [facility] Body weight 2022-08-30 13:47:00 92.987 kg [facility] BMI 2022-08-30 13:47:00 30.27 kg/m2 [facility] height 2022-07-31 14:40:00 66 [in_i] Commo n [facility] weight 2022-07-31 14:40:00 201.0 [lb_av] Co mmon [facility] temperature 2022-07-31 14:40:00 98.2 [degF] Com mon [facility] bmi 2022-07-31 14:40:00 32.44 kg/m2 Comm on [facility] oximetry 2022-07-31 14:40:00 97 % Commo n [facility] respiratory rate 2022-07-31 14:40:00 17 /min [facility] blood pressure systolic 2022-07-31 14:40:00 135 mm[Hg] [facility] blood pressure diastolic 2022-07-31 14:40:00 72 mm[Hg] [facility] Systolic blood pressure 2022-05-24 20:23:00 112 mm[Hg] [facility] Diastolic blood pressure 2022-05-24 20:23:00 65 mm[Hg] [facility] Heart rate 2022-05-24 20:23:00 68 /min [facility] Body temperature 2022-05-24 20:23:00 35.83 Sh[facility] Respiratory rate 2022-05-24 20:23:00 18 /min [facility] Oxygen saturation in Arterial blood by Pulse oximetry 2022-05-24 20:23:00 96 /min [facility] Body height 2022-05-23 19:38:00 175.3 cm [facility] Body weight 2022-05-23 19:38:00 92.987 kg [facility] BMI 2022-05-23 19:38:00 30.27 kg/m2 [facility] height 2022-04-18 10:00:00 66 [in_i] Commo n [facility] weight 2022-04-18 10:00:00 209.0 [lb_av] Co mmon [facility] temperature 2022-04-18 10:00:00 98.1 [degF] Com mon [facility] bmi 2022-04-18 10:00:00 33.73 kg/m2 Comm on [facility] oximetry 2022-04-18 10:00:00 95 % Commo n [facility] respiratory rate 2022-04-18 10:00:00 16 /min [facility] blood pressure systolic 2022-04-18 10:00:00 132 mm[Hg] [facility] blood pressure diastolic 2022-04-18 10:00:00 73 mm[Hg] [facility] height 2022-04-04 11:10:00 66 [in_i] Commo n [facility] weight 2022-04-04 11:10:00 197 [lb_av] Comm on [facility] temperature 2022-04-04 11:10:00 98 [degF] Comm on [facility] bmi 2022-04-04 11:10:00 31.79 kg/m2 Comm on [facility] blood pressure systolic 2022-04-04 11:10:00 125 mm[Hg] [facility] blood pressure diastolic 2022-04-04 11:10:00 65 mm[Hg] [facility] height 2022-02-14 08:20:00 66 [in_i] Commo n [facility] weight 2022-02-14 08:20:00 197.3 [lb_av] Co mmon [facility] temperature 2022-02-14 08:20:00 97.3 [degF] Com mon [facility] bmi 2022-02-14 08:20:00 31.84 kg/m2 Comm on [facility] oximetry 2022-02-14 08:20:00 96 % Commo n [facility] respiratory rate 2022-02-14 08:20:00 16 /min [facility] blood pressure systolic 2022-02-14 08:20:00 114 mm[Hg] [facility] blood pressure diastolic 2022-02-14 08:20:00 62 mm[Hg] [facility] height 2022-01-17 08:10:00 66 [in_i] Commo n [facility] weight 2022-01-17 08:10:00 195.6 [lb_av] Co [facility] temperature 2022-01-17 08:10:00 98.3 [degF] Com [facility] bmi 2022-01-17 08:10:00 31.57 kg/m2 Comm on [facility] oximetry 2022-01-17 08:10:00 98 % Commo n [facility] respiratory rate 2022-01-17 08:10:00 17 /min [facility] blood pressure systolic 2022-01-17 08:10:00 133 mm[Hg] [facility] blood pressure diastolic 2022-01-17 08:10:00 72 mm[Hg] [facility] height 2021-10-16 08:20:00 66 [in_i] Commo n [facility] weight 2021-10-16 08:20:00 194.9 [lb_av] Co [facility] temperature 2021-10-16 08:20:00 98.2 [degF] Com [facility] bmi 2021-10-16 08:20:00 31.45 kg/m2 Comm on [facility] oximetry 2021-10-16 08:20:00 97 % Commo n [facility] respiratory rate 2021-10-16 08:20:00 17 /min [facility] height 2021-10-16 08:20:00 66 [in_i] Commo n [facility] weight 2021-10-16 08:20:00 194.9 [lb_av] Co [facility] temperature 2021-10-16 08:20:00 98.2 [degF] Com [facility] bmi 2021-10-16 08:20:00 31.45 kg/m2 Comm on [facility] oximetry 2021-10-16 08:20:00 97 % Commo n [facility] respiratory rate 2021-10-16 08:20:00 17 /min [facility] blood pressure systolic 2021-10-16 08:20:00 132 mm[Hg] Common [facility] blood pressure diastolic 2021-10-16 08:20:00 77 mm[Hg] [facility] height 2021-10-08 13:10:00 66 [in_i] Commo n [facility] weight 2021-10-08 13:10:00 195.3 [lb_av] Co mmon [facility] temperature 2021-10-08 13:10:00 98.1 [degF] Com [facility] bmi 2021-10-08 13:10:00 31.52 kg/m2 Comm on [facility] oximetry 2021-10-08 13:10:00 97 % Commo n [facility] respiratory rate 2021-10-08 13:10:00 17 /min [facility] blood pressure systolic 2021-10-08 13:10:00 132 mm[Hg] [facility] blood pressure diastolic 2021-10-08 13:10:00 73 mm[Hg] [facility] height 2021-07-11 09:10:00 66 [in_i] Commo n [facility] weight 2021-07-11 09:10:00 185.1 [lb_av] Co mmon [facility] temperature 2021-07-11 09:10:00 97.6 [degF] Com [facility] bmi 2021-07-11 09:10:00 29.87 kg/m2 Comm on [facility] oximetry 2021-07-11 09:10:00 96 % Commo n [facility] respiratory rate 2021-07-11 09:10:00 18 /min [facility] blood pressure systolic 2021-07-11 09:10:00 138 mm[Hg] [facility] blood pressure diastolic 2021-07-11 09:10:00 76 mm[Hg] [facility] Procedures Procedure Date / Time Performed Performing Clinician Source CONSENT/REFUSAL FOR DIAGNOSIS AND TREATMENT 2023-01-28 18:20:41 Doctor Unassigned, Myra [facility] URINALYSIS 2022-10-20 11:29:00 [facility] URINE DRUG (IMMUNOASSAY) - COMPREHENSIVE DRUG SCREEN W/O REFLEX 2022-10-20 11:29:00 Singer Christ[facility] XR CHEST 1 VW 2022-10-20 11:07:00 Singer [facility] COMP. METABOLIC PANEL (21220) 2022-10-20 11:04:00 Singer [facility] SALICYLATE 2022-10-20 11:04:00 Singer [facility] ETHANOL 2022-10-20 11:04:00 Singer [facility] CBC WITH DIFF 2022-10-20 11:04:00 Singer [facility] BASIC METABOLIC PANEL (NA, K, CL, CO2, GLUCOSE, BUN, CREATININE, CA) 2022-08-30 17:22:00 Gertrude Chinchilla [facility] URINALYSIS 2022-08-30 14:21:00 [facility]SA[facility] - COMPREHENSIVE DRUG SCREEN W/O REFLEX 2022-08-30 14:21:00 Gertrude Chinchilla [facility] XR CHEST 1 VW 2022-08-30 14:04:16 [facility] 2022-08-30 14:03:00 [facility] 2022-08-30 14:03:00 [facility] COMP. METABOLIC PANEL (69197) 2022-08-30 14:03:00 Gertrude Chinchilla [facility] ETHANOL 2022-08-30 14:03:00 [facility] CBC WITH DIFF 2022-08-30 14:03:00 Gertrude Chinchilla [facility] XR CHEST 1 VW 2022-05-24 11:38:14 Callie Cuellar [facility] MAGNESIUM 2022-05-24 08:56:00 Callie Cuellar [facility] TROPONIN I 2022-05-24 08:56:00 Callie Cuellar [facility] BASIC METABOLIC PANEL (NA, K, CL, CO2, GLUCOSE, BUN, CREATININE, CA) 2022-05-24 08:56:00 Callie Cuellar [facility] CBC WITH DIFF 2022-05-24 08:56:00 Callie Cuellar [facility] TROPONIN I 2022-05-24 03:51:00 Callie Cuellar [facility] XR KUB 2022-05-23 22:25:58 Callie Cuellar [facility] URINALYSIS 2022-05-23 22:15:00 Gertrude Chinchilla [facility] CREATININE, URINE RANDOM 2022-05-23 22:15:00 Vani Cuellar [facility] SODIUM, URINE RANDOM 2022-05-23 22:15:00 Huang [facility] URINE DRUG (IMMUNOASSAY) - COMPREHENSIVE DRUG SCREEN W/O REFLEX 2022-05-23 22:15:00 Gertrude Chinchilla [facility] TRANSTHORACIC ECHO (TTE) COMPLETE 2022-05-23 20:33:00 Callie Cuellar [facility] COVID-19 (ID NOW RAPID TESTING) 2022-05-23 16:39:00 Gertrude Chinchilla [facility] LAB ONLY COVID INTERPRETATION 2022-05-23 16:39:00 Gertrude Chinchilla [facility] TROPONIN I 2022-05-23 13:42:00 Gertrude Chinchilla [facility] COMP. METABOLIC PANEL (11192) 2022-05-23 13:42:00 Gertrude Chinchilla [facility] CBC WITH DIFF 2022-05-23 13:42:00 Gertrude Chinchilla [facility] HB ECG ROUTINE & RHYTHM STRIP 2022-05-23 13:12:28 Gertrude Chinchilla [facility] EKG-12 LEAD 2022-05-23 12:44:00 Gertrude Chinchilla [facility] AUTHORIZATION FOR RELEASE OF PHI 2021-11-12 06:01:00 Doctor Unassigned, [facility] Encounters Start Date/Time End Date/Time Encounter Type Admission Type Attending [facility] Care Department Encounter ID Source 2024-02-19 09:31:00 Outpatient Rosana Red STLMLC STLMLC [id number] [facility] 2024-02-02 14:25:00 Outpatient Rosana Red STLMLC STLMLC [id number] [facility] 2024-01-20 08:45:00 Outpatient Rosana Red STLMLC STLMLC [id number] [facility] 2024-01-16 10:32:00 Outpatient Rosana Red STLMLC STLMLC [id number] [facility] 2024-01-08 13:33:00 Outpatient Rosana Red STLMLC STLMLC [id number] [facility] 2024-01-02 16:07:00 Outpatient Rosana Red STLMLC STLMLC [id number] [facility] 2023-12-11 12:59:00 Outpatient Rosana Red STLMLC STLMLC [id number] [facility] 2023-12-10 09:50:00 Outpatient Rosana Red STLMLC STLMLC [id number] [facility] 2023-12-09 09:09:00 Outpatient Rosana Red STLMLC STLMLC [id number] [facility] 2023-10-28 10:03:00 Outpatient Rosana Red STLMLC STLMLC [id number] [facility] 2023-09-25 09:50:00 Outpatient Rosana Red STLMLC STLMLC [id number] [facility] 2023-09-15 10:25:00 Outpatient Rosana Red STLMLC STLMLC [id number] [facility] 2023-09-12 08:30:00 Outpatient Rosana Red STLMLC STLMLC [id number] [facility] 2023-08-15 09:11:00 Outpatient Rosana Red STLMLC STLMLC [id number] [facility] 2023-08-14 16:35:00 Outpatient Ross, Mahad STLMLC STLMLC [id number] [facility] 2023-07-04 14:02:00 Outpatient Ross, Mahad STLMLC STLMLC [id number] [facility] 2023-06-05 14:42:00 Outpatient Ross, Mahad STLMLC STLMLC [id number] [facility] 2023-05-14 15:43:00 Outpatient Ross, Mahad STLMLC STLMLC [id number] [facility] 2023-05-09 14:32:00 Outpatient Ross, Mahad STLMLC STLMLC [id number] [facility] 2023-02-11 08:03:01 Outpatient Ross, Mahad STLMLC STLMLC [id number] [facility] 2022-12-02 14:44:00 Outpatient Ross, Mahad STLMLC STLMLC [id number] [facility] 2022-11-14 12:02:00 Outpatient Ross, Mahad STLMLC STLMLC [id number] [facility] 2022-11-12 10:39:01 Outpatient Ross, Mahad STLMLC STLMLC [id number] [facility] 2022-10-07 09:37:01 Outpatient Ross, Mahad STLMLC STLMLC [id number] [facility] 2022-10-04 16:32:01 Outpatient Ross, Mahad STLMLC STLMLC [id number] [facility] 2022-08-16 15:23:00 Outpatient Ross, Mahad STLMLC STLMLC [id number] [facility] 2022-07-31 14:32:00 Outpatient Ross, Mahad STLMLC STLMLC [id number] [facility] 2022-07-29 16:01:01 Outpatient Ross, Mahad STLMLC STLMLC [id number] [facility] 2022-07-19 16:30:01 Outpatient Ross, Mahad STLMLC STLMLC [id number] [facility] 2022-07-16 10:11:00 Outpatient Ross, Mahad STLMLC STLMLC [id number] [facility] 2022-06-25 14:39:00 Outpatient Ross, Mahad STLMLC STLMLC [id number] [facility] 2022-05-16 12:11:01 Outpatient Ross, Mahad STLMLC STLMLC [id number] [facility] 2021-10-24 13:24:10 Outpatient Ross, Mahad STLMLC STLMLC [id number] [facility] 2021-10-24 13:06:32 Outpatient Ross, Mahad STLMLC STLMLC [id number] [facility] 2021-10-24 12:40:59 Outpatient Ross, Mahad STLMLC STLMLC [id number] [facility] 2021-10-24 12:30:18 Outpatient Ross, Mahad STLMLC STLMLC [id number] [facility] 2021-10-24 12:29:04 Outpatient Ross, Mahad STLMLC STLC [id number] [facility] 2021-10-24 11:52:46 Outpatient Ross, Mahad STLC STLMLC [id number] [facility] 2021-10-24 11:44:17 Outpatient Ross, Mahad STLC STLMLC [id number] [facility] 2021-10-24 11:37:11 Outpatient Ross, Mahad STLC STLC [id number] [facility] 2021-07-28 05:50:12 Emergency [facility] [id number] [facility] 2024-02-26 00:00:00 2024-02-26 00:00:00 (HOSP F/U) Hospital Follow Up STLMLC STLMLC [id number] [facility] 2024-02-20 00:00:00 2024-02-20 00:00:00 (TEL) STLMLC STLMLC [id number] [facility] 2024-02-10 00:00:00 2024-02-10 00:00:00 (TEL) STLMLC STLMLC [id number] [facility] 2024-02-09 00:00:00 2024-02-09 00:00:00 (TEL) STLMLC STLMLC [id number] [facility] 2024-02-06 00:00:00 2024-02-06 00:00:00 (TEL) STLMLC STLMLC [id number] [facility] 2024-02-04 00:00:00 2024-02-04 00:00:00 (TEL) STLMLC STLMLC [id number] [facility] 2024-02-02 00:00:00 2024-02-02 00:00:00 (TEL) STLMLC STLMLC [id number] [facility] 2024-01-29 00:00:00 2024-01-29 00:00:00 (F/U) Follow Up Visit STLMLC STLMLC [id number] [facility] 2024-01-28 00:00:00 2024-01-28 00:00:00 (TEL) STLMLC STLMLC [id number] [facility] 2024-01-28 00:00:00 2024-01-28 00:00:00 (TEL) STLMLC STLMLC [id number] [facility] 2024-01-28 00:00:00 2024-01-28 00:00:00 (TEL) STLMLC STLMLC [id number] [facility] 2024-01-27 00:00:00 2024-01-27 00:00:00 (HOSP F/U) Hospital Follow Up STLMLC STLMLC [id number] [facility] 2024-01-25 00:00:00 2024-01-25 00:00:00 (TEL) STLMLC STLMLC [id number] [facility] 2024-01-23 00:00:00 2024-01-23 00:00:00 (TEL) STLMLC STLMLC [id number] [facility] 2024-01-20 00:00:00 2024-01-20 00:00:00 (TEL) STLMLC STLMLC [id number] [facility] 2024-01-19 00:00:00 2024-01-19 00:00:00 (TEL) STLMLC STLMLC [id number] [facility] 2024-01-16 00:00:00 2024-01-16 00:00:00 (TEL) STLMLC STLMLC [id number] [facility] 2024-01-15 00:00:00 2024-01-15 00:00:00 OFFICE VISIT ESTAB PT LEVEL 4 STLMLC STLMLC [id number] [facility] 2024-01-15 00:00:00 2024-01-15 00:00:00 (TEL) STLMLC STLMLC [id number] [facility] 2024-01-15 00:00:00 2024-01-15 00:00:00 (TEL) STLMLC STLMLC [id number] [facility] 2024-01-14 00:00:00 2024-01-14 00:00:00 (TEL) STLMLC STLMLC [id number] [facility] 2024-01-02 00:00:00 2024-01-02 00:00:00 (TEL) STLMLC STLMLC [id number] [facility] 2023-12-30 00:00:00 2023-12-30 00:00:00 (TEL) STLMLC STLMLC [id number] [facility] 2023-12-17 00:00:00 2023-12-17 00:00:00 (TEL) STLMLC STLMLC [id number] [facility] 2023-12-12 00:00:00 2023-12-12 00:00:00 (TEL) STLMLC STLMLC [id number] [facility] 2023-12-11 00:00:00 2023-12-11 00:00:00 (TEL) STLMLC STLMLC [id number] [facility] 2023-12-10 00:00:00 2023-12-10 00:00:00 OFFICE VISIT ESTAB PT LEVEL 4 STLMLC STLMLC [id number] [facility] 2023-12-10 00:00:00 2023-12-10 00:00:00 SUB [facility] STLMLC STLMLC [id number] [facility] 2023-12-09 00:00:00 2023-12-09 00:00:00 (TEL) STLMLC STLMLC [id number] [facility] 2023-12-02 00:00:00 2023-12-02 00:00:00 (TEL) STLMLC STLMLC [id number] [facility] 2023-11-27 00:00:00 2023-11-27 00:00:00 (TEL) STLMLC STLMLC [id number] [facility] 2023-11-27 00:00:00 2023-11-27 00:00:00 (TEL) STLMLC STLMLC [id number] [facility] 2023-11-18 00:00:00 2023-11-18 00:00:00 (TEL) STLMLC STLMLC [id number] [facility] 2023-11-03 00:00:00 2023-11-03 00:00:00 (TEL) STLMLC STLMLC [id number] [facility] 2023-11-03 00:00:00 2023-11-03 00:00:00 OFFICE VISIT ESTAB PT LEVEL 4 STLMLC STLMLC [id number] [facility] 2023-10-17 00:00:00 2023-10-17 00:00:00 OFFICE VISIT ESTAB PT LEVEL 4 STLMLC STLMLC [id number] [facility] 2023-10-15 00:00:00 2023-10-15 00:00:00 (TEL) STLMLC STLMLC [id number] [facility] 2023-09-24 00:00:00 2023-09-24 00:00:00 (TEL) STLMLC STLMLC [id number] [facility] 2023-09-24 00:00:00 2023-09-24 00:00:00 (TEL) STLMLC STLMLC [id number] [facility] 2023-09-16 00:00:00 2023-09-16 00:00:00 OFFICE VISIT NEW PT LEVEL 4 STLMLC STLMLC [id number] [facility] 2023-09-15 20:30:00 2023-09-15 21:00:00 Care Candelaria Adame 2.16.840. [id number]. [id number] [facility] 2023-08-14 00:00:00 2023-08-14 00:00:00 (TEL) STLMLC STLMLC [id number] [facility] 2023-07-08 00:00:00 2023-07-08 00:00:00 OFFICE VISIT ESTAB PT LEVEL 4 STLMLC STLMLC [id number] [facility] 2023-07-03 00:00:00 2023-07-03 00:00:00 (TEL) STLMLC STLMLC [id number] [facility] 2023-06-30 00:00:00 2023-06-30 00:00:00 (TEL) STLMLC STLMLC [id number] [facility] 2023-06-24 00:00:00 2023-06-24 00:00:00 (TEL) STLMLC STLMLC [id number] [facility] 2023-06-11 00:00:00 2023-06-11 00:00:00 (TEL) STLMLC STLMLC [id number] [facility] 2023-05-29 00:00:00 2023-05-29 00:00:00 (TEL) STLMLC STLMLC [id number] [facility] 2023-05-20 00:00:00 2023-05-20 00:00:00 (TEL) STLMLC STLMLC [id number] [facility] 2023-05-15 00:00:00 2023-05-15 00:00:00 OFFICE VISIT ESTAB PT LEVEL 4 STLMLC STLMLC [id number] [facility] 2023-05-12 15:45:00 2023-05-12 16:45:00 [facility] Provider Initial Visit Lana Chaparro 2.16.840. [id number] [id number] [facility] 2023-04-25 00:00:00 2023-04-25 00:00:00 Outpatient [place] [facility] [id number] [facility] 2023-04-25 00:00:00 2023-04-25 00:00:00 Outpatient [place] _B DMG [facility] [id number] [facility] 2023-03-05 00:00:00 2023-03-05 00:00:00 (TEL) STLMLC STLMLC [id number] [facility] 2023-02-20 16:29:56 2023-02-20 16:29:56 Outpatient SFA SFA [id number] Tim Lambert 2023-02-12 00:00:00 2023-02-12 00:00:00 OFFICE VISIT ESTAB PT LEVEL 4 STLMLC STLMLC [id number] [facility] 2023-02-12 00:00:00 2023-02-12 00:00:00 (TEL) STLMLC STLMLC [id number] [facility] 2023-01-31 00:00:00 2023-01-31 00:00:00 (TEL) STLMLC STLMLC [id number] [facility] 2023-01-28 13:23:00 2023-01-28 14:59:00 Emergency X ZANE LIU TIMOTHY NDELMER ERT [id number] [facility] 2023-01-28 13:23:00 2023-01-28 14:59:00 Emergency Zane Liu NDE[facility]ER [facility] 1.2.840.114 [id number] [facility] 2023-01-27 00:00:00 2023-01-27 00:00:00 OFFICE VISIT ESTAB PT LEVEL 4 STLMLC STLMLC [id number] [facility] 2023-01-22 11:17:34 2023-01-22 11:17:34 Outpatient SFA SFA [id number] Tim Lambert 2023-01-10 00:00:00 2023-01-10 00:00:00 (TEL) STLMLC STLMLC [id number] [facility] 2023-01-01 00:00:00 2023-01-01 00:00:00 (TEL) STLMLC STLMLC [id number] [facility] 2022-12-24 08:30:06 2022-12-24 08:30:06 Outpatient SFA SFA [id number] Tim Lambert 2022-12-11 00:00:00 2022-12-11 00:00:00 OFFICE VISIT ESTAB PT LEVEL 4 STLMLC STLMLC [id number] [facility] 2022-12-02 00:00:00 2022-12-02 00:00:00 (TEL) STLMLC STLMLC [id number] [facility] 2022-11-27 08:05:24 2022-11-27 08:05:24 Outpatient SFA SFA [id number] Tim Lambert 2022-11-18 00:00:00 2022-11-18 00:00:00 (TEL) STLMLC STLMLC [id number] [facility] 2022-11-14 00:00:00 2022-11-14 00:00:00 OFFICE VISIT ESTAB PT LEVEL 4 STLMLC STLMLC [id number] [facility] 2022-11-14 00:00:00 2022-11-14 00:00:00 SUB ANNUAL [facility] VISIT STLMLC STLMLC [id number] [facility] 2022-11-14 00:00:00 2022-11-14 00:00:00 OFFICE VISIT ESTAB PT LEVEL 4 STLMLC STLMLC [id number] [facility] 2022-11-05 00:00:00 2022-11-05 00:00:00 (TEL) STLMLC STLMLC [id number] [facility] 2022-10-30 17:27:51 2022-10-30 17:27:51 Outpatient [facility] [id number] Tim Lambert 2022-10-25 16:30:00 2022-10-25 17:30:00 MELONIE Garcia 2.16.840. [id number] 2.16.840.1. [id number] CLACXKURRY SW5 [facility] 2022-10-24 00:00:00 2022-10-24 00:00:00 (TEL) STLMLC STLMLC [id number] [facility] 2022-10-22 16:00:00 2022-10-22 16:30:00 Care Candelaria Stroud 2.16.840. [id number] 2.16.840.1. [id number] 04:41:00 2022-10-20 06:40:00 Emergency X CHRISTEN [facility] ERT [id number] [facility] 2022-10-20 04:41:00 2022-10-20 06:40:00 Emergency Singer Christen [facility] 1.2.840.114 [id number] [id number] [facility] 2022-10-16 00:00:00 2022-10-16 00:00:00 (TEL) STLMLC STLMLC [id number] [facility] 2022-10-03 15:56:50 2022-10-03 15:56:50 Outpatient [facility] [id number] Tim Lambert 2022-10-03 00:00:00 2022-10-03 00:00:00 (TEL) STLMLC STLMLC [id number] [facility] 2022-09-04 08:12:48 2022-09-04 08:12:48 Outpatient [facility] [id number] Tim Lambert 2022-09-03 14:40:55 2022-09-03 14:40:55 Outpatient [facility] [id number] Tim Lambert 2022-08-30 07:45:00 2022-08-30 15:39:00 Emergency X GERTRUDE CHINCHILLA [facility] ERT [id number] [facility] 2022-08-30 07:45:00 2022-08-30 15:39:00 Emergency Gertrude Chinchilla [facility] 1.2.840.114 [id number] [id number] [facility] 2022-08-12 00:00:00 2022-08-12 00:00:00 [place] _B DMG [facility] [id number] [facility] 2022-08-12 00:00:00 2022-08-12 00:00:00 [place] _B DMG [facility] [id number] [facility] 2022-08-12 00:00:00 2022-08-12 00:00:00 [place] [id number] [facility] 2022-08-12 00:00:00 2022-08-12 00:00:00 Outpatient [place] _B DMG [facility] [id number] [facility] 2022-07-31 00:00:00 2022-07-31 00:00:00 OFFICE VISIT ESTAB PT LEVEL 4 STLMLC STLMLC [id number] [facility] 2022-06-21 00:00:00 2022-06-21 00:00:00 Outpatient Cobb_T DMG DMG [id number] [facility] 2022-06-20 00:00:00 2022-06-20 00:00:00 [place] [id number] [facility] 2022-06-06 00:00:00 2022-06-06 00:00:00 (TEL) STLMLC STLMLC [id number] [facility] 2022-05-27 00:00:00 2022-05-27 00:00:00 Transition of Care Simón Rollins KEVENDimas [facility] 1.2.840.114 [id number] [id number] [id number] [facility] 2022-05-23 07:39:00 2022-05-24 17:43:00 Outpatient CALLIE SHARIF [facility] [id number] [facility] 2022-05-23 07:39:00 2022-05-24 17:43:00 Emergency Gertrude Chinchilla David [facility] [id number] [id number] [id number] [id number] [facility] 2022-05-09 00:00:00 2022-05-09 00:00:00 Outpatient Cobb_T DMG [facility] [id number] [facility] 2022-04-18 00:00:00 2022-04-18 00:00:00 OFFICE VISIT ESTAB PT LEVEL 4 STLMLC STLMLC [id number] [facility] 2022-04-18 00:00:00 2022-04-18 00:00:00 (TEL) STLMLC STLMLC [id number] [facility] 2022-04-12 03:30:00 2022-04-12 03:30:00 Outpatient Deshazo_T DMG [facility] [id number] [facility] 2022-04-10 04:58:00 2022-04-10 04:58:00 [place] [id number] [facility] 2022-04-04 00:00:00 2022-04-04 00:00:00 (TEL) STLMLC STLMLC [id number] [facility] 2022-04-04 00:00:00 2022-04-04 00:00:00 (EST. VIDEO) EST VIRTUAL VIDEO VISIT STLMLC STLMLC [id number] [facility] 2022-03-26 00:00:00 2022-03-26 00:00:00 (TEL) STLMLC STLMLC [id number] [facility] 2022-02-14 00:00:00 2022-02-14 00:00:00 OFFICE VISIT ESTAB PT LEVEL 5 STLMLC STLMLC [id number] [facility] 2022-01-22 00:00:00 2022-01-22 00:00:00 (TEL) STLMLC STLMLC [id number] [facility] 2022-01-17 00:00:00 2022-01-17 00:00:00 OFFICE VISIT ESTAB PT LEVEL 4 STLMLC STLMLC [id number] [facility] 2021-11-12 00:00:00 2021-11-12 00:00:00 Orders Only Doctor Unassigned, Myra [facility] [id number] 350.1.13.10 4.2.7.2.686 [id number] [facility] 2021-10-16 00:00:00 2021-10-16 00:00:00 SUB ANNUAL [facility] VISIT STLMLC STLMLC [id number] [facility] 2021-10-16 00:00:00 2021-10-16 00:00:00 OFFICE VISIT ESTAB PT LEVEL 4 STLMLC STLMLC [id number] [facility] 2021-10-09 14:20:00 2021-10-09 14:20:00 Outpatient NEELA FANG [facility] [id number] [facility] 2021-10-09 00:00:00 2021-10-09 00:00:00 (TEL) STLMLC STLMLC [id number] [facility] 2021-10-08 00:00:00 2021-10-08 00:00:00 (HOSP F/U) Hospital Follow Up STLMLC STLMLC [id number] [facility] 2021-10-05 00:00:00 2021-10-05 00:00:00 (TEL) STLMLC STLMLC [id number] [facility] 2021-10-02 00:00:00 2021-10-02 00:00:00 Transition of Care Simón Rollins [id number] 350.1.13.10 4.2.7.2.686 [id number] [facility] 2021-10-01 00:00:00 2021-10-01 00:00:00 (TEL) STLC STLC [id number] [facility] 2021-09-27 17:38:00 2021-09-30 15:22:00 Outpatient X VIKASH GRIMALDO [facility] [id number] [facility] 2021-09-27 17:38:00 2021-09-30 15:22:00 Outpatient VIKASH PEMBERTON [facility] [id number] [facility] 2021-09-27 17:38:00 2021-09-30 15:22:00 Emergency Silva Szymanski Jelani [facility] 1..840.114 350.1.13.10 4.2.7.2.686 [id number] [facility] 2021-09-19 01:00:00 2021-09-19 01:00:00 Outpatient OW_T DMG DMG [id number] [facility] 2021-09-05 14:30:00 2021-09-05 15:30:00 CAV Gretta Ruiz 2.16.840. [id number] [id number] OETRPH6XTI [facility] 2021-08-10 10:31:00 2021-08-10 10:31:00 Outpatient OWENS_T DMG [facility] [id number] [facility] 2021-08-07 02:14:00 2021-08-07 02:14:00 Outpatient CURRY_S DMG [facility] [id number] [facility] 2021-07-17 00:00:00 2021-07-17 00:00:00 (TEL) STLMLC STLMLC [id number] [facility] 2021-07-11 00:00:00 2021-07-11 00:00:00 OFFICE VISIT ESTAB PT LEVEL 4 STLMLC STLMLC [id number] [facility] 2021-07-10 00:00:00 2021-07-10 00:00:00 (TEL) STLMLC STLMLC [id number] [facility] 2021-07-04 00:00:00 2021-07-04 00:00:00 (TEL) STLMLC STLMLC [id number] [facility] 2021-06-26 00:00:00 2021-06-26 00:00:00 (TEL) STLMLC STLMLC [id number] [facility] 2021-05-29 00:00:00 2021-05-29 00:00:00 Outpatient STLMLC STLMLC [id number] [facility] 2021-05-22 05:13:00 2021-05-22 05:13:00 Outpatient CURRY_S DMG [facility] [id number] [facility] 2021-05-22 00:00:00 2021-05-22 00:00:00 Outpatient STLMLC STLMLC [id number] [facility] 2021-05-04 00:00:00 2021-05-04 00:00:00 Outpatient STLMLC STLMLC [id number] [facility] 2021-04-30 00:00:00 2021-04-30 00:00:00 Outpatient STLMLC STLMLC [id number] [facility] 2021-04-30 00:00:00 2021-04-30 00:00:00 [id number] 2021-04-06 00:00:00 2021-04-06 00:00:00 [facility] [id number] [facility] 2021-01-29 06:02:00 2021-01-29 06:02:[facility] [id number] 2021-01-18 12:00:00 2021-01-18 12:00:[facility] [id number] [facility] 2020-08-14 14:12:00 2020-08-14 15:54:00 Emergency [facility] 1.2.840.114 350.1.13.10 4.2.7.2.686 [id number] 2020-08-14 14:12:00 2020-08-14 15:54:00 Emergency [facility] 1.2.840.114 350.1.13.10 4.2.7.2.686 [id number] [facility] Results Test Description Test Time Test Comments Results Result Co mments Source VITAMIN B 12 AND FOLIC [id number] 00:00:00* Test Item Value Reference Range Interpretation Comme nts FOLIC ACID (test code = 2284-8) >20.0 UG/L SEE BELOW UG/L VITAMIN B-12 (test code = 2132-9) 415 PG/ML See_Comment [Automated messa ge] The system which generated this result transmitted reference range: 200-950 PG/ML. The reference range was not used to interpret this result as normal/abnormal. CBC W/AUTO [id number] 00:00:00* Test Item Value Reference Range Interpretation Comme nts NUCLEATED RBCS (test code = 04778-5) 0.0 /100 WBC'S See_Comment [Automated [employer]] The system which generated this result transmitted reference range: 0.0 /100 WBC'S. The reference range was not used to interpret this result as normal/abnormal. ABSOLUTE EOSINOPHILS (test code = 75030-0) 0.42 K/UL See_Comment [Automated messa ge] The system which generated this result transmitted reference range: 0.00-0.50 K/UL. The reference range was not used to interpret this result as normal/abnormal. ABSOLUTE LYMPHOCYTES (test code = 77211-3) 2.14 K/UL See_Comment [Automated messa ge] The system which generated this result transmitted reference range: 1.00-4.00 K/UL. The reference range was not used to interpret this result as normal/abnormal. ABSOLUTE MONOCYTES (test code = 05511-6) 0.64 K/UL See_Comment [Automated messa ge] The system which generated this result transmitted reference range: 0.20-1.00 K/UL. The reference range was not used to interpret this result as normal/abnormal. ABSOLUTE NEUTROPHILS (test code = 46724-0) 7.23 K/UL See_Comment [Automated messa ge] The system which generated this result transmitted reference range: 1.50-7.50 K/UL. The reference range was not used to interpret this result as normal/abnormal. BASOPHILS (test code = 42131-1) 0.7 % EOSINOPHILS (test code = 71921-9) 4.0 % HEMATOCRIT (test code = 83212-5) 46.6 % See_Comment [Automated [employer] ge] The system which generated this result transmitted reference range: 40.0-51.0 %. The reference range was not used to interpret this result as normal/abnormal. HEMOGLOBIN (test code = 718-7) 15.8 G/DL See_Comment [Automated messa ge] The system which generated this result transmitted reference range: 13.5-17.0 G/DL. The reference range was not used to interpret this result as normal/abnormal. LYMPHOCYTES (test code = 03628-0) 20.3 % MCH (test code = 07545-1) 31.3 PG See_Comment [Automated [employer] ge] The system which generated this result transmitted reference range: 25.0-33.0 PG. The reference range was not used to interpret this result as normal/abnormal. MCHC (test code = 98752-8) 33.9 G/DL See_Comment [Automated messa ge] The system which generated this result transmitted reference range: 31.0-36.0 G/DL. The reference range was not used to interpret this result as normal/abnormal. MCV (test code = 56597-9) 92.5 fL See_Comment [Automated messa ge] The system which generated this result transmitted reference range: 80.0-99.0 fL. The reference range was not used to interpret this result as normal/abnormal. MONOCYTES (test code = 77087-8) 6.1 % NEUTROPHILS (test code = 96978-9) 68.5 % PLATELET COUNT (test code = 09433-6) 355 K/UL See_Comment [Automated messa ge] The system which generated this result transmitted reference range: 130-400 K/UL. The reference range was not used to interpret this result as normal/abnormal. RBC (test code = 07732-0) 5.04 M/UL See_Comment [Automated messa ge] The system which generated this result transmitted reference range: 4.50-6.10 M/UL. The reference range was not used to interpret this result as normal/abnormal. RDW (test code = 10073-6) 13.0 % See_Comment [Automated messa ge] The system which generated this result transmitted reference range: 11.5-15.0 %. The reference range was not used to interpret this result as normal/abnormal. WBC (test code = 89617-0) 10.5 K/UL See_Comment [Automated messa ge] The system which generated this result transmitted reference range: 3.5-11.0 K/UL. The reference range was not used to interpret this result as normal/abnormal. VITAMIN D, 25 [id number] 00:00:00* Test Item Value Reference Range Interpretation Comme [facility] VITAMIN D, 25 OH (test code = 1988-3) 40 NG/ML SEE BELOW NG/ML LIPID PANEL WITH REFLEX DIRECT [id number] 00:00:00* Test Item Value Reference Range Interpretation Comme nts CALC LDL CHOL (test code = 08459-5) 126 MG/DL See_Comment H [Automated messa ge] [...] normal/abnormal. RISK RATIO LDL/HDL (test code = 35160-7) 2.21 RATIO See_Comment [Automated message] The system [...] interpret this result as normal/abnormal. COMPREHENSIVE METABOLIC [id number] 00:00:00* Test Item Value Reference Range Interpretation [...] result as normal/abnormal. CALCIUM (test code = 06772-5) 9.5 MG/DL See_Comment [Automated messa ge] The [...] as normal/abnormal. CALC GLOBULIN (test code = 36765-0) 2.7 G/DL See_Comment [Automated messa ge] The [...] normal/abnormal. eGFR (2020 CKD-EPI) (test code = 21915-9) 79 ML/MIN/1.73 See_Comment [Automated messa ge] The [...] interpret this result as normal/abnormal. CBC WITH [id number] 11:42:32* Test Item Value Reference Range Interpretation [...] 33.7 g/dL 31.2-35.0 RDW-SD (test code = 41018-9) 45.5 fL 38.5-51.6 RDW-CV (test code = 788-0) 13.8 % 12.1-15.4 PLT (test code = 777-3) See_Comment [Automated messa ge] The system which generated this result transmitted reference range: 150 - 328 10*3/?L. The reference range was not used to interpret this result as normal/abnormal. MPV (test code = 21847-5) 8.7 fL 9.8-13.0 L NRBC/100 WBC (test code = 4014012357) See_Comment [Automated [employer] ssage] The system which generated this result transmitted reference range: 0.0 - 10.0 /100 WBCs. The reference range was not used to interpret this result as normal/abnormal. NRBC x10^3 (test code = 4854845358) See_Comment [Automated [employer] ge] The system which generated this result transmitted reference range: 10*3/?L. The reference range was not used to interpret this result as normal/abnormal. GRAN MAT (NEUT) % (test code = 770-8) 92.6 % IMM GRAN % (test code = 1072427548) 0.90 % LYMPH % (test code = 736-9) 5.3 % MONO % (test code = 5905-5) 0.6 % EOS % (test code = 713-8) 0.3 % BASO % (test code = 706-2) 0.3 % GRAN MAT x10^3(ANC) (test code = 0057999344) 9.61 10*3/uL 1.99-6.95 H IMM GRAN x10^3 (test code = 0918777947) 0.09 10*3/uL 0.00-0.06 H LYMPH x10^3 (test code = 731-0) 0.55 10*3/uL 1.09-3.23 L MONO x10^3 (test code = 742-7) 0.06 10*3/uL 0.36-1.02 L EOS x10^3 (test code = 711-2) 0.03 10*3/uL 0.06-0.53 L BASO x10^3 (test code = 704-7) 0.03 10*3/uL 0.01-0.09 Lab Interpretation (test code = 13244-2) [facility]normal [facility] 11:31:09 SALICYLATE<10mg/L10/20/2022 5:31 AM [facility]ORYTherapeutic Range: ? Analgesic and Antipyretic Use ? 20- 100 mg/L ? ? Anti-Inflammatory Use ? 100-250 mg/L Toxic Range: ? Greater than 300 [facility] 11:31:04ALCOHOL<10mg/dL10/20/2022 5:31 AM [facility]<10 Gcdqgcll44-206 Toxic>100 Depression of TRANSFORMATION ANALYST>400 Fatalities ReportedC[facility] HospitalACETAMINOPHEN2023-01-22 11:30:59* Test Item Value Reference Range Interpretation Comme nts ACETAMINOP (test code = 3143802149) 10.0-30.0 L ISIDORO (test code = ISIDORO) Toxic: Greater porsche n 200 ug/mL @ 4 hour post ingestion or greater than 50 ug/mL @ 12 hour post ingestion Lab Interpretation (test code = 08375-0) Abnormal [facility] HospitalCOM. MET[facility]OLIC PANEL (33284)2022-10-20 11:26:11* Test Item Value Reference Range Interpretation Comme nts NA (test code = 9512695888) 135 mmol/L 135-145 K (test code = 6324380620) 5.9 mmol/L 3.5-5.0 H CL (test code = 1108057018) 105 mmol/L 98-108 CO2 TOTAL (test code = 0327285865) 21 mmol/L 23-31 L AGAP (test code = 0065891788) 2-16 BUN (test code = 7438844557) 25 mg/dL 7-23 H GLUCOSE (test code = 1425975498) 127 mg/dL 70-110 H CREATININE (test code = 9491258407) 1.66 mg/dL 0.60-1.25 H TOTAL BILI (test code = 3044641658) 1.0 mg/dL 0.1-1.1 CALCIUM (test code = 3104816261) 8.9 mg/dL 8.6-10.6 T PROTEIN (test code = 5107770296) 7.9 g/dL 6.3-8.2 ALBUMIN (test code = 0415751679) 4.6 g/dL 3.5-5.0 ALK PHOS (test code = 0867136109) 134 U/L 34-122 H ALTv (test code = 1742-6) 30 U/L 5-50 AST(SGOT) (test code = 4239534861) 45 U/L 13-40 H eGFR (test code = 5115419507) mL/min/1.73m2 ISIDORO (test code = ISIDORO) Association [...] imaging tests). Lab Interpretation (test code = 18131-0) Abnormal [facility] (NA, K, CL, CO2, GLUCOSE, BUN, CREATININE, CA)2022-08-30 18:07:32* Test Item Value Reference Range Interpretation Comme nts NA (test code = 0403604981) 143 mmol/L 135-145 K (test code = 5742422056) 4.1 mmol/L 3.5-5.0 CL (test code = 9268444937) 115 mmol/L 98-108 H CO2 TOTAL (test code = 0321056203) 19 mmol/L 23-31 L AGAP (test code = 9283394485) 2-16 BUN (test code = 4283462189) 33 mg/dL 7-23 H GLUCOSE (test code = 0358057466) 66 mg/dL 70-110 L CREATININE (test code = 6016864961) 1.99 mg/dL 0.60-1.25 H CALCIUM (test code = 8786596322) 8.3 mg/dL 8.6-10.6 L eGFR (test code = 8134910794) mL/min/1.73m2 ISIDORO (test code = ISIDORO) Association [...] imaging tests). Lab Interpretation (test code = 15705-5) Abnormal [facility] HospitalTROPONIN [id number] 15:44:49* Test Item Value Reference Range Interpretation Comments TROPONIN I (test code = 7268022896) 0.004 ng/mL See_Comment [Automated message] The system [...] of biotin. Lab Interpretation (test code = 66691-2) Normal [facility]ETHANOL2022-[facility]-02 15:27:10 ALCOHOL<10mg/dL08/30/2022 9:27 [facility]10 Wbvckfzv30-113 Toxic>100 Depression of TRANSFORMATION ANALYST>400 Fatalities ReportedC[facility] Emergency HospitalCOM. METABOLIC PANEL (08663)2022-08-30 15:24:23* Test Item Value Reference Range Interpretation Comme nts NA (test code = 6421703754) 144 mmol/L 135-145 K (test code = 3346468429) 3.9 mmol/L 3.5-5.0 CL (test code = 8395231392) 109 mmol/L 98-108 H CO2 TOTAL (test code = 1033821491) 22 mmol/L 23-31 L AGAP (test code = 9845665206) 2-16 BUN (test code = 5693274727) 37 mg/dL 7-23 H GLUCOSE (test code = 9935166460) 86 mg/dL 70-110 CREATININE (test code = 3912680204) 2.47 mg/dL 0.60-1.25 H TOTAL BILI (test code = 2199194340) 0.8 mg/dL 0.1-1.1 CALCIUM (test code = 2174113218) 9.3 mg/dL 8.6-10.6 T PROTEIN (test code = 4933951490) 7.0 g/dL 6.3-8.2 ALBUMIN (test code = 1669121188) 4.4 g/dL 3.5-5.0 ALK PHOS (test code = 0969091772) 119 U/L 34-122 ALTv (test code = 1742-6) 22 U/L 5-50 AST(SGOT) (test code = 9743035246) 38 U/L 13-40 eGFR (test code = 2581274943) mL/min/1.73m2 ISIDORO (test code = ISIDORO) Association [...] imaging tests). Lab Interpretation (test code = 21437-2) Abnormal [facility] HospitalMAGN[facility]IUM2022-12-02 15:24:23* Test Item Value Reference Range Interpretation Comme nts MAGNESIUM (test code = 7954158815) 2.1 mg/dL 1.7-2.4 Lab Interpretation (test cod e = 74877-0) Normal [facility] WITH [id number] 14:36:33* Test Item Value Reference Range Interpretation Comme nts WBC (test code = 6690-2) See_Comment [Automated [employer]] The system which generated this result transmitted reference range: 4.20 - 10.70 10*3/?L. The reference range was not used to interpret this result as normal/abnormal. RBC (test code = 789-8) See_Comment [Automated [employer]] The system which generated this result transmitted [...] 32.7 g/dL 31.2-35.0 RDW-SD (test code = 16900-8) 44.7 fL 38.5-51.6 RDW-CV (test code = 788-0) 13.2 % 12.1-15.4 PLT (test code = 777-3) See_Comment [Automated [employer]] The system which generated this result transmitted reference range: 150 - 328 10*3/?L. The reference range was not used to interpret this result as normal/abnormal. MPV (test code = 03352-6) 9.7 fL 9.8-13.0 L NRBC/100 WBC (test code = 6056628825) See_Comment [Automated me ssage] The system which generated this result transmitted reference range: 0.0 - 10.0 /100 WBCs. The reference range was not used to interpret this result as normal/abnormal. NRBC x10^3 (test code = 5807654479) See_Comment [Automated messa ge] The system which generated this result transmitted reference range: 10*3/?L. The reference range was not used to interpret this result as normal/abnormal. GRAN MAT (NEUT) % (test code = 770-8) 62.1 % IMM GRAN % (test code = 2349453985) 0.50 % LYMPH % (test code = 736-9) 22.6 % MONO % (test code = 5905-5) 9.1 % EOS % (test code = 713-8) 5.2 % BASO % (test code = 706-2) 0.5 % GRAN MAT x10^3(ANC) (test code = 3827571481) 5.38 10*3/uL 1.99-6.95 IMM GRAN x10^3 (test code = 4137513696) 0.04 10*3/uL 0.00-0.06 LYMPH x10^3 (test code = 731-0) 1.96 10*3/uL 1.09-3.23 MONO x10^3 (test code = 742-7) 0.79 10*3/uL 0.36-1.02 EOS x10^3 (test code = 711-2) 0.45 10*3/uL 0.06-0.53 BASO x10^3 (test code = 704-7) 0.04 10*3/uL 0.01-0.09 Lab Interpretation (test code = 37771-0) Abnormal [facility] [id number] 10:17:19* Test Item Value Reference Range Interpretation Comments TROPONIN I (test code = 7288712213) 0.007 ng/mL See_Comment [Automated message] The system [...] of biotin. Lab Interpretation (test code = 76910-5) Normal [facility]2022-08-26 10:05:38* Test Item Value Reference Range Interpretation Comme nts MAGNESIUM (test code = 6682954329) 2.1 mg/dL 1.7-2.4 Lab Interpretation (test cod e = 02766-8) Normal [facility] (NA, K, CL, CO2, GLUCOSE, BUN, CREATININE, CA)2022-05-24 10:05:18* Test Item Value Reference Range Interpretation Comme nts NA (test code = 4456778126) 136 mmol/L 135-145 K (test code = 8324676681) 4.9 mmol/L 3.5-5 CL (test code = 2637448070) 109 mmol/L 98-108 H CO2 TOTAL (test code = 0154783746) 21 mmol/L 23-31 L AGAP (test code = 0182675703) 2-16 BUN (test code = 5944727405) 27 mg/dL 7-23 H GLUCOSE (test code = 8585614019) 89 mg/dL 70-110 CREATININE (test code = 9019533392) 1.62 mg/dL 0.6-1.25 H CALCIUM (test code = 8538125899) 8.5 mg/dL 8.6-10.6 L eGFR (test code = 4414984173) mL/min/1.73m2 ISIDORO (test code = ISIDORO) Association [...] imaging tests). Lab Interpretation (test code = 17142-3) Abnormal [facility] WITH [id number] 09:31:37* Test Item Value Reference Range Interpretation Comme nts WBC (test code = 6690-2) See_Comment [Automated [employer]] The system which generated this result transmitted reference range: 4.20 - 10.70 10*3/?L. The reference range was not used to interpret this result as normal/abnormal. RBC (test code = 789-8) See_Comment L [Automated Dr[employer]] The system which generated this result transmitted [...] 33.3 g/dL 31.2-35 RDW-SD (test code = 59552-9) 43.6 fL 38.5-51.6 RDW-CV (test code = 788-0) 13.1 % 12.1-15.4 PLT (test code = 777-3) See_Comment [Automated [employer]] The system which generated this result transmitted reference range: 150 - 328 10*3/?L. The reference range was not used to interpret this result as normal/abnormal. MPV (test code = 28626-1) 9.3 fL 9.8-13 L NRBC/100 WBC (test code = 7984632679) See_Comment [Automated [employer] ssage] The system which generated this result transmitted reference range: 0.0 - 10.0 /100 WBCs. The reference range was not used to interpret this result as normal/abnormal. NRBC x10^3 (test code = 4151875714) See_Comment [Automated [employer]] The system which generated this result transmitted reference range: 10*3/?L. The reference range was not used to interpret this result as normal/abnormal. GRAN MAT (NEUT) % (test code = 770-8) 56.1 % IMM GRAN % (test code = 2982905794) 0.40 % LYMPH % (test code = 736-9) 27.1 % MONO % (test code = 5905-5) 9.9 % EOS % (test code = 713-8) 5.8 % BASO % (test code = 706-2) 0.7 % GRAN MAT x10^3(ANC) (test code = 5537027572) 4.53 10*3/uL 1.99-6.95 IMM GRAN x10^3 (test code = 7125741079) 0.03 10*3/uL 0-0.06 LYMPH x10^3 (test code = 731-0) 2.19 10*3/uL 1.09-3.23 MONO x10^3 (test code = 742-7) 0.80 10*3/uL 0.36-1.02 EOS x10^3 (test code = 711-2) 0.47 10*3/uL 0.06-0.53 BASO x10^3 (test code = 704-7) 0.06 10*3/uL 0.01-0.09 Lab Interpretation (test code = 60679-2) Abnormal [facility] Hospital[facility]rop[facility] [id number] 04:35:45* Test Item Value Reference Range Interpretation Comments TROPONIN I (test code = 8118226954) 0.004 ng/mL See_Comment [Automated message] The system [...] of biotin. Lab Interpretation (test code = 19644-1) Normal [facility] Hospital[facility] (TTE)2022-05-24 01:26:40* Test Item Value Reference Range Interpretation Comme nts Height (test code = 6023344324) in Weight (test code = 9254195746) lbs Systolic BP (test code = 5006030514) mmHg Diastolic BP (test code = 4680248156) mmHg Heart Rate (test code = 0707496531) bpm BSA (test code = 2089755178) 2.09 m2 Ao root annulus (test code = 9317367242) 3.2 cm Ao root diam (test code = 7451480353) 3.20 cm Aortic root (test code = 3651937094) 3.2 cm LVOT diameter (test code = 8915656118) 2.14 cm LVIDD (test code = 5568890761) 5.00 cm IVS (test code = 1065271136) 1.31 cm Interventricular Septum Diastolic Thickness by 2D (test code = 8411771) 1.31 cm LVPWD (test code = 0438724262) 1.32 cm PW (test code = 9332046757) 1.32 cm 0.6-1.1 EF(Teich) (test code = 9841963619) 61.30 % LVIDS (test code = 7520404460) 3.30 cm FS (test code = 8989715766) 33 % EF - 2D (test code = 07369681) 61.30 % LA size (test code = 6583389360) 3.6 cm TR Peak Mayank (test code = 1950755141) 261.9 cm/s Triscuspid Valve Regurgitation Peak Gradient (test code = 3536568874) mmHg LAV(MOD-sp4) (test code = 2048951710) 59.10 mL E wave decelartion time (test code = 6586082416) 0.23 s MV Peak E Mayank (test code = 0981071922) 73.6 cm/s MV stenosis pressure 1/2 time (test code = 7123819156) 70.2 ms MV Peak A Mayank (test code = 1767270420) 55.9 cm/s E/A ratio (test code = 3864258137) ratio MV Prop V (test code = 5946413998) 58.20 cm/s MV E/e' septal (test code = 9570620820) 12.2 cm/s Tapse (test code = 5216216203) 2.9 cm LVOT stroke volume (test code = 8959666194) 103.80 cm3 LVOT peak mayank (test code = 8321963152) 147.2 cm/s LVOT mn grad (test code = 8267747974) mmHg AV LVOT peak gradient (test code = 5357803810) mmHg LVOT peak VTI (test code = 0123715933) 28.7 cm LV V1 mean (test code = 7796654642) 93.00 cm/s Aortic valve mean velocity (test code = 8460036850) 119.4 cm/s Ao peak mayank (test code = 1151293096) 165.6 cm/s Ao VTI (test code = 7574023141) 35.2 cm AV area by cont VTI (test code = 1710767546) 2.9 cm2 AV area peak mayank (test code = 5381276427) 3.2 cm2 Ao max PG (test code = 3482957702) 11.00 mm[Hg] AV peak gradient (test code = 1117480968) mmHg AV valve area (test code = 4512746482) 2.90 cm2 AV mean gradient (test code = 0061701515) mmHg Radiology Study observation (narrative) (test code = 34364-6) ISIDORO (test code = ISIDORO) Formatting of [...] 2D, color flow Doppler and spectral Doppler. [facility] [id number] 14:25:35* Test Item Value Reference Range Interpretation Comments TROPONIN I (test code = 0810225221) 0.009 ng/mL See_Comment [Automated message] The system [...] of biotin. Lab Interpretation (test code = 25742-3) Normal [facility]. METABOLIC PANEL (23131)2022-05-23 14:14:13* Test Item Value Reference Range Interpretation Comme nts NA (test code = 4927090284) 143 mmol/L 135-145 K (test code = 1818403439) 5.0 mmol/L 3.5-5 CL (test code = 0361401525) 111 mmol/L 98-108 H CO2 TOTAL (test code = 8381578034) 20 mmol/L 23-31 L AGAP (test code = 2561168870) 2-16 BUN (test code = 0018273775) 30 mg/dL 7-23 H GLUCOSE (test code = 5831572934) 85 mg/dL 70-110 CREATININE (test code = 5608760856) 2.07 mg/dL 0.6-1.25 H TOTAL BILI (test code = 7359122944) 0.6 mg/dL 0.1-1.1 CALCIUM (test code = 4039901429) 9.0 mg/dL 8.6-10.6 T PROTEIN (test code = 0500485619) 7.2 g/dL 6.3-8.2 ALBUMIN (test code = 9094474557) 4.4 g/dL 3.5-5 ALK PHOS (test code = 9737498229) 121 U/L 34-122 ALTv (test code = 1742-6) 23 U/L 5-50 AST(SGOT) (test code = 2745424406) 29 U/L 13-40 eGFR (test code = 2278962823) mL/min/1.73m2 ISIDORO (test code = ISIDORO) Association [...] imaging tests). Lab Interpretation (test code = 90400-0) Abnormal [facility] WITH [id number] 14:11:10* Test Item Value Reference Range Interpretation Comme nts WBC (test code = 6690-2) See_Comment H [Automated Dr. Jerry's Smooth Move] The system which generated this result transmitted reference range: 4.20 - 10.70 10*3/?L. The reference range was not used to interpret this result as normal/abnormal. RBC (test code = 789-8) See_Comment [Automated Dr. Jerry's Smooth Move] The system which generated this result transmitted [...] 33.5 g/dL 31.2-35 RDW-SD (test code = 25015-4) 42.9 fL 38.5-51.6 RDW-CV (test code = 788-0) 12.9 % 12.1-15.4 PLT (test code = 777-3) See_Comment H [Automated messa ge] The system which generated this result transmitted reference range: 150 - 328 10*3/?L. The reference range was not used to interpret this result as normal/abnormal. MPV (test code = 92119-5) 9.0 fL 9.8-13 L NRBC/100 WBC (test code = 8426721488) See_Comment [Automated [employer] ssage] The system which generated this result transmitted reference range: 0.0 - 10.0 /100 WBCs. The reference range was not used to interpret this result as normal/abnormal. NRBC x10^3 (test code = 0405298779) See_Comment [Automated messa ge] The system which generated this result transmitted reference range: 10*3/?L. The reference range was not used to interpret this result as normal/abnormal. GRAN MAT (NEUT) % (test code = 770-8) 71.9 % IMM GRAN % (test code = 3973791592) 0.40 % LYMPH % (test code = 736-9) 16.1 % MONO % (test code = 5905-5) 8.4 % EOS % (test code = 713-8) 2.5 % BASO % (test code = 706-2) 0.7 % GRAN MAT x10^3(ANC) (test code = 0759262092) 8.20 10*3/uL 1.99-6.95 H IMM GRAN x10^3 (test code = 6599916668) 0.05 10*3/uL 0-0.06 LYMPH x10^3 (test code = 731-0) 1.84 10*3/uL 1.09-3.23 MONO x10^3 (test code = 742-7) 0.96 10*3/uL 0.36-1.02 EOS x10^3 (test code = 711-2) 0.29 10*3/uL 0.06-0.53 BASO x10^3 (test code = 704-7) 0.08 10*3/uL 0.01-0.09 Lab Interpretation (test code = 79895-2) Abnormal [facility]"
[2024-03-02] MEDS ORDERED: DIAZEPAM 10 MG/2 ML INJ SYRINGE ONE (14:53)
[2024-03-02] MEDS ORDERED: HALOPERIDOL LACT 5 MG/ML INJ ONE (14:53)
[2024-03-02] MEDS ORDERED: DIPHENHYDRAMINE 50 MG/ML VIAL ONE (14:53)
[2024-03-02] MEDS ORDERED: VANCOMYCIN 1 GM/VIAL ONE (14:53)
[2024-03-02] MEDS ORDERED: CEFTRIAXONE 1000 MG/VIAL ONE (14:53)
[2024-03-02] MEDS ORDERED: NA CHLORIDE 0.9% 250 ML ONE (14:54)
[2024-03-02] MEDS ORDERED: NA CHLORIDE 0.9% 1,000 ML ONE ×4 (14:54→19:54)
[2024-03-02 15:30] LABS: Absolute Basophils 0.1 K/uL (0-0.5); Absolute Eosinophils 0.1 K/uL (0-0.5); Absolute Lymphocytes (CBC) 0.6 K/uL (0.7-4.9); Absolute Monocytes 0.9 K/uL (0.1-1.3); Absolute Neutrophil 23.8 K/uL (1.8-8.0); Basophils % 0.2 % (0-1.3); Eosinophils % 0.3 % (0-4.4); Hematocrit 30.5 % (39.6-49.0); Lymphocytes % 2.5 % (15.3-44.8); MCH 29.8 pg (27.0-35.0); MCHC 32.8 g/dL (32.0-36.0); MCV 90.7 fL (80-100); MPV 7.2 fL (7.6-11.3); Monocytes % 3.6 % (3.3-12.3); Neutrophils % 93.4 % (41.7-73.7); Platelets 367 thou/uL (152-406); RBC Red Blood Cell Count 3.36 M/uL (4.33-5.43); Red Cell Distribution Width 14.7 % (12.1-15.2)
[2024-03-02 15:38] LABS: PT Prothrombin Time 12.4 SECONDS (9.5-12.5); Protime INR 1.13
[2024-03-02 15:45] LABS: Albumin 3.2 g/dL (3.4-5.0); Albumin/Globulin Ratio 0.9 (1.1-1.8); Bilirubin Total 1.1 mg/dL (0.2-1.0); Globulin 3.7 g/dL (2.3-3.5); Protein, Total 6.9 g/dL (6.4-8.2)
[2024-03-02] MEDS ORDERED: ACETAMINOPHEN 500 MG TAB ONE (15:47)
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
--- NOTE | 2024-03-02 16:56 | RAD REPORT ---
EXAM DESCRIPTION: [facility] Single View03/02/2024 4:12 pm CLINICAL HISTORY: cough COMPARISON: November 2023 FINDINGS: The lungs appear clear of acute infiltrate. The heart is normal size IMPRESSION: No acute abnormalities displayed
[2024-03-02 17:34] LABS: Anisocytosis SLIGHT; Band Neutrophils 6 % (0-1); Blood Morphology Comment NOTED (NOT SEEN); Differential Total Cells Count 100; Lymphocytes 5 % (15-42); Monocytes 6 % (0-10); Platelet Estimate ADEQ; Segmented Neutrophils 83 % (40-80); White Blood Cell Scan DIFF (OK)
--- NOTE | 2024-03-02 17:34 | RAD REPORT ---
EXAM DESCRIPTION: RAD - Foot Right 3 View - 03/02/2024 4:12 pm CLINICAL HISTORY: Right foot pain status post injury FINDINGS: No fracture or dislocation is seen Mild lateral subluxation first proximal phalanx Hallux valgus deformity. Soft tissue swelling
--- NOTE | 2024-03-02 18:34 | RAD REPORT ---
EXAM DESCRIPTION: CT - Head Brain Wo Cont - 03/02/2024 6:10 pm CLINICAL HISTORY: Alteration of awareness/confusion COMPARISON: November 2023 TECHNIQUE: Computed axial tomography of the head was obtained. IV contrast was not requested. All CT scans are performed using dose optimization technique as appropriate and may include automated exposure control or mA/KV adjustment according to patient size. FINDINGS: An intracranial bleed is not seen The ventricles are normal in caliber No extra-axial fluid collection is noted. 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 Small old lacunar infarct left thalamus Fluid within the sinuses/ mastoids is not seen. IMPRESSION: No acute intracranial abnormality is seen If patient's symptoms persist MRI of the brain would be recommended
[2024-03-02] MEDS ORDERED: IPRATROPIUM BROM 0.5MG/2.5ML NEB PRN (20:08)
[2024-03-02] MEDS ORDERED: ALBUTEROL 2.5 MG/3 ML NEB SOL NEB PRN (20:08)
--- NOTE | 2024-03-02 20:08 | P.HP ---
Certification for Inpatient With expected LOS: >2 Midnights Patient will require the following post-hospital care: None Practitioner: I am a practitioner with admitting privileges, knowledge of patient current condition, hospital course, and medical plan of care. Services: Services provided to patient in accordance with Admission requirements found in Title 42 Section 412.3 of the Code of Federal Regulations Patient History Date of Service: 03/02/24 Reason for admission: Altered mental status History of Present Illness: 63-year-old male with past medical history of chronic lower extremity pain on regular duloxetine as well as nurtec use, asthma, HLD, schizophrenia, history of methamphetamine substance abuse was brought in by the mother today because of increasing altered mental status with confusion since the last 3 days. Patient on arrival was a poor historian and cannot drowsy. But at the time of evaluation patient is more awake. He states he does live with the mom. He states he has been having confusion and weakness. He denies any nausea vomiting denies any chest pain. On arrival in the ED patient was noted with low blood pressure with systolic in the 80s over 40s, tachycardic with heart rate in the 110s to 120s, afebrile. Chest x-ray shows no acute infiltrate. EKG was unremarkable except for tachycardia, urine drug screen pending, urinalysis unremarkable. Head CT shows no acute intracranial pathology. X-ray of the right foot shows mild tissue swelling but no acute bony pathology, laboratory workup showed WBC of 25,000 with left shift, BMP shows creatinine of 4.15. But normal lactic acid at 1.4. Troponin also normal. He received 2 L NS bolus with minimal change or improvement in blood pressure. Patient is being admitted for presumed acute sepsis, right foot cellulitis as well as metabolic encephalopathy. Allergies Benzodiazepines Allergy (Severe, Verified 12/13/23 22:46) Anaphylaxis diazepam [From Valium] Allergy (Severe, Verified 12/13/23 22:46) Anaphylaxis ketorolac tromethamine [From Toradol] Allergy (Severe, Verified 12/13/23 22:46) Anaphylaxis Penicillins Allergy (Severe, Verified 12/13/23 22:46) Anaphylaxis venom-honey bee [bee venom (honey bee)] Allergy (Severe, Verified 12/13/23 22:46) Anaphylaxis venom-wasp [Wasp Venom] Allergy (Severe, Verified 12/13/23 22:46) Anaphylaxis alprazolam [From Xanax] Allergy (Verified 12/13/23 22:46) Hives amphetamine aspartate [From Adderall] Allergy (Verified 12/13/23 22:46) Hives amphetamine sulfate [From Adderall] Allergy (Verified 12/13/23 22:46) Hives dextroamphetamine saccharate [From Adderall] Allergy (Verified 12/13/23 22:46) Hives dextroamphetamine sulfate [From Adderall] Allergy (Verified 12/13/23 22:46) Hives lorazepam [From Ativan] Allergy (Verified 12/13/23 22:46) Hives/Rash trazodone Allergy (Verified 12/13/23 22:46) Hives Home Medications: Amlodipine [Norvasc*] 5 mg PO DAILY #30 tab 02/19/24 Doxycycline Monohydrate 100 mg PO BID #10 cap 02/19/24 Hydrocodone 10/APAP 325 [Newberry 10/325*] 1 tab PO Q6H PRN #20 tab 02/19/24 levoFLOXacin [Levofloxacin] 500 mg PO DAILY #5 tab 02/19/24 - Past Medical/Surgical History Diabetic: No -: HTN -: Hyperlipidemia -: CVA -: [place] -: Cocaine Abuse 15 years ago -: Hx [place]/ CKD II (Dr. Gibson/ Dr. Beasley) -: hernia repair -: appendectomy -: hemorrhoidectomy -: hernia repair Psychosocial/ Personal History: Patient lives at home with his sister. - Family History Mother -: Heart disease, Hypertension, Stroke, Cancer Notes: Breast Father -: Heart disease, Hypertension, GI disease, Stroke, Kidney disease Sister -: Hypertension, Lung disease, Diabetes, Kidney disease Brother -: Hypertension - Social History Smoking Status: Never smoker Smoking therapy provided: No Patient receptive to therapy: No Alcohol use: No CD- Drugs: No Caffeine use: Yes Place of Residence: Home Review of Systems 10-point ROS is otherwise unremarkable Neurological: Weakness, Confusion Physical Examination - Physical Exam General: Alert, In no apparent distress, Oriented x3, Cooperative, Other (dieheveled) HEENT: Atraumatic Neck: Supple, 2+ carotid pulse no bruit Respiratory: Clear to auscultation bilaterally, Normal air movement Cardiovascular: Normal pulses, Regular rate/rhythm, No murmurs Gastrointestinal: Normal bowel sounds, Soft and benign, Non-distended Musculoskeletal: No clubbing, No swelling, Erythema (over lateral right foot ) Neurological: Normal strength at 5/5 x4 extr, Cranial nerves 3-12 intact, Normal reflexes 2+ - Studies Laboratory Data (last 24 hrs) 03/02/24 03/02/24 03/02/24 15:04 15:04 15:04 WBC 25.50 H Hgb 10.0 L Hct 30.5 L Plt Count 367 PT 12.4 INR 1.13 APTT 28.0 Sodium 139 Potassium 4.0 BUN 37 H Creatinine 4.16 H Glucose 124 H Total Bilirubin 1.1 H AST 32 ALT 30 Alkaline Phosphatase 132 H Assessment and Plan - Problems (Diagnosis) (1) Acute onset sepsis Current Visit: Yes Status: Acute (2) Cellulitis of right foot Current Visit: Yes Status: Acute (3) Acute metabolic encephalopathy Current Visit: No Status: Acute (4) Substance abuse Current Visit: No Status: Acute - Plan Impression Septic shock Metabolic encephalopathy History of substance abuse Leukocytosis Acute kidney injury Right foot cellulitiswith mild abrasion History of hypertension Plan We admit patient to the ICU Septic shockMay be due to foot cellulitis, rule out bacteremia Follow blood culture Start empirical antibiotics with Vanco/cefepime Monitor WBC trend Acute kidney injurymarked elevated creatinine to 4.1 Follow with aggressive IV fluid Switch to lactated Ringer's Obtain urine studies for fractional secretion of sodium Nephrology consult in a.m. Hypotensionpersistent, add midodrine 10 mg 3 times daily 6 more awake and conversant now unable to tolerate p.o. Might need IV pressors Continue aggressive IV fluid Right foot cellulitisnoted with mild abrasion, follow with antibiotics History of polysubstance abusefollow urine drug screen Possibility of drug use contributing to hypotension considered DVT prophylaxissubcutaneous heparin Advance directivefull code Total time spent review of record discussion with patient and evaluation greater than 70 minutes critical care time - Advance Directives Does patient have a Living Will: No Does patient have a Durable POA for Healthcare: No Time Spent Managing Pts Care (In Minutes): 70
[2024-03-02] MEDS ORDERED: VANCOMYCIN 1 GM in NA CHLORIDE 0.9% 250 ML IVPB SCH (20:14)
[2024-03-02] MEDS: MIDODRINE HCL 5 MG TABLET PO SCH (22:35)
[2024-03-02] MEDS: Levofloxacin500mg IV 500 MG/100 ML BAG IV ONE (22:35)
[2024-03-02] MEDS: Ringers Lactate 1,000 ML IV SCH (22:36)
[2024-03-02 23:15] VITALS: BMI 28.8
[2024-03-02] MEDS: VANCOMYCIN 500 MG in NA CHLORIDE 0.9% 100 ML IVPB ONE (23:40)
[2024-03-03] MEDS: MORPHINE 2 MG/ML SYR IV PRN (00:52)
[2024-03-03 03:14] LABS: Barbiturates NEGATIVE (NEGATIVE); Benzodiazepines NEGATIVE (NEGATIVE); Cocaine NEGATIVE (NEGATIVE); METHAMPHETAM NEGATIVE (NEGATIVE); Methadone NEGATIVE (NEGATIVE); Opiates POSITIVE (NEGATIVE); Phencyclidine NEGATIVE (NEGATIVE); THC Cannibis NEGATIVE (NEGATIVE)
[2024-03-03 04:05] LABS: Specific Gravity 1.017 (1.005-1.030); Sqamous Epithelial <5 /HPF (None Seen); Urine Bacteria <20 /HPF (<20); Urine Bilirubin NEGATIVE (Negative); Urine Blood Negative (Negative); Urine Clarity Turbid (Clear); Urine Color Yellow (Yellow); Urine Culture Reflex Order NOT NEEDED; Urine Glucose NEGATIVE (Negative); Urine Ketones NEGATIVE (Negative); Urine Micro Reflex YN NO BILL MICROSCOPIC; Urine Mucus Slight /HPF (None Seen); Urine Nitrite NEGATIVE (Negative); Urine Protein 1+ (Negative); Urine RBC <5 /HPF (None Seen); Urine Urobilinogen Normal (Normal); Urine WBC <5 /HPF (<5)
[2024-03-03] MEDS: PANTOPRAZOLE 40MG TABLET PO SCH (05:23)
[2024-03-03 05:37] LABS: Absolute Basophils 0.1 K/uL (0-0.5); Absolute Eosinophils 0.1 K/uL (0-0.5); Absolute Lymphocytes (CBC) 0.4 K/uL (0.7-4.9); Absolute Monocytes 0.9 K/uL (0.1-1.3); Absolute Neutrophil 15.3 K/uL (1.8-8.0); Basophils % 0.3 % (0-1.3); Eosinophils % 0.8 % (0-4.4); Hematocrit 28.1 % (39.6-49.0); Hemoglobin 9.1 g/dL (13.6-17.9); Lymphocytes % 2.4 % (15.3-44.8); MCH 29.8 pg (27.0-35.0); MCHC 32.4 g/dL (32.0-36.0); MCV 91.9 fL (80-100); MPV 7.2 fL (7.6-11.3); Monocytes % 5.5 % (3.3-12.3); Platelets 305 thou/uL (152-406); RBC Red Blood Cell Count 3.06 M/uL (4.33-5.43); Red Cell Distribution Width 15.1 % (12.1-15.2)
[2024-03-03 05:58] LABS: Albumin 2.5 g/dL (3.4-5.0); Albumin/Globulin Ratio 0.8 (1.1-1.8); Anion Gap 8.8 mEq/L (5.0-15.0); Bilirubin Total 0.6 mg/dL (0.2-1.0); Globulin 3.2 g/dL (2.3-3.5); Magnesium 2.1 mg/dL (1.6-2.4); Phosphorus 3.5 mg/dL (2.5-4.9); Potassium 3.8 mEq/L (3.5-5.1); Protein, Total 5.7 g/dL (6.4-8.2); Troponin High Sensitivity 22.6 pg/mL (<58.9)
[2024-03-03] MEDS: ZINC SULFATE 220 MG CAP PO SCH (08:47)
[2024-03-03] MEDS: ENOXAPARIN 30 MG/0.3 ML SQ SCH (08:47)
[2024-03-03] MEDS ORDERED: **PT MED**Rimegepant Sulfate [Nurtec Odt] 75 MG Tab.Rapdis) SL PRN (08:48)
[2024-03-03] MEDS ORDERED: LIDOCAINE 4% PATCH TD PRN (09:00)
[2024-03-03] MEDS: MONTELUKAST 10 MG TAB PO SCH ×2 (09:00→17:58)
[2024-03-03] MEDS: ATORVASTATIN 40 MG TAB PO SCH ×2 (09:00→17:58)
--- NOTE | 2024-03-03 09:11 | RAD REPORT ---
EXAM DESCRIPTION: US - Renal Ultrasound-Complete - 03/03/2024 7:18 am CLINICAL HISTORY: [place] COMPARISON: Abdomen Pelvis Wo Contrast dated 01/16/2024; Abdomen Pelvis W/Wo Contrast dated 2023 TECHNIQUE: Sonographic grayscale and color flow images of the kidneys and bladder were obtained. FINDINGS: Both kidneys are normal in size, shape, and echotexture. The right kidney measures 10.9 cm in length. Focal cortical thinning/defect along the mid to lower po le, may reflect focal scarring.. No hydronephrosis, focal mass, or echogenic calculi. The left kidney measures 11.2 cm in length. 2 cm interpolar parapelvic cyst, benign in appearance. No hydronephrosis, focal mass, or echogenic calculi. The urinary bladder shows regional wall thickening anteriorly, up to 11 mm. IMPRESSION: Regional smooth anterior urinary bladder wall thickening, could relate to focal cystitis or underdistention. Possibility of sessile transitional epithelial neoplasia cannot be entirely excl uded. Please correlate with urinalysis results. A follow-up ultrasound with maximal bladder distentio n, or CT urogram can also be considered, for additional evaluation. Other incidental findings as above.
[2024-03-03] MEDS: DULOXETINE 20 MG CAP PO SCH (09:19)
--- NOTE | 2024-03-03 09:35 | P.CNS ---
Date of Consult: 03/03/24 Reason for Consult: [place] Requesting Physician: Celso Castrejon Chief Complaint: Altered mental status History of Present Illness: 63-year-old male with past medical history of chronic lower extremity pain on regular duloxetine as well as nurtec use, asthma, HLD, schizophrenia, history of methamphetamine substance abuse was brought in by the mother today because of increasing altered mental status with confusion since the last 3 days. Patient on arrival was a poor historian and cannot drowsy. But at the time of evaluation patient is more awake. He states he does live with the mom. He states he has been having confusion and weakness. He denies any nausea vomiting denies any chest pain. On arrival in the ED patient was noted with low blood pressure with systolic in the 80s over 40s, tachycardic with heart rate in the 110s to 120s, afebrile. Chest x-ray shows no acute infiltrate. EKG was unremarkable except for tachycardia, urine drug screen pending, urinalysis unremarkable. Head CT shows no acute intracranial pathology. X-ray of the right foot shows mild tissue swelling but no acute bony pathology, laboratory workup showed WBC of 25,000 with left shift, BMP shows creatinine of 4.15. But normal lactic acid at 1.4. Troponin also normal. He received 2 L NS bolus with minimal change or improvement in blood pressure. Patient is being admitted for presumed acute sepsis, right foot cellulitis as well as metabolic encephalopathy. [id number] 14:55 This 63 yrs old Male presents to ER via Wheelchair with complaints of Altered ec2 Mental Status. 14:55 Patient arrives today for evaluation of altered mental status. Patient is here with ec2 mother who is providing most of the history. Patient with history of substance abuse, history of methamphetamine abuse, reportedly has been increasingly altered the past couple days. No reported falls injuries or trauma. Also has had a rash to the right foot.. Allergies Benzodiazepines Allergy (Severe, Verified 12/13/23 22:46) Anaphylaxis diazepam [From Valium] Allergy (Severe, Verified 12/13/23 22:46) Anaphylaxis ketorolac tromethamine [From Toradol] Allergy (Severe, Verified 12/13/23 22:46) Anaphylaxis Penicillins Allergy (Severe, Verified 12/13/23 22:46) Anaphylaxis venom-honey bee [bee venom (honey bee)] Allergy (Severe, Verified 12/13/23 22:46) Anaphylaxis venom-wasp [Wasp Venom] Allergy (Severe, Verified 12/13/23 22:46) Anaphylaxis alprazolam [From Xanax] Allergy (Verified 12/13/23 22:46) Hives amphetamine aspartate [From Adderall] Allergy (Verified 12/13/23 22:46) Hives amphetamine sulfate [From Adderall] Allergy (Verified 12/13/23 22:46) Hives dextroamphetamine saccharate [From Adderall] Allergy (Verified 12/13/23 22:46) Hives dextroamphetamine sulfate [From Adderall] Allergy (Verified 12/13/23 22:46) Hives lorazepam [From Ativan] Allergy (Verified 12/13/23 22:46) Hives/Rash trazodone Allergy (Verified 12/13/23 22:46) Hives Home medications list reviewed: Yes Home Medications: Albuterol Sulfate [Proair Respiclick] 1 puff IH Q4HP PRN 03/03/24 Atorvastatin Calcium 40 mg PO DAILY AT SUPPER 03/03/24 Duloxetine [Cymbalta Dalayed Release Pellets] 20 mg PO BID 03/03/24 Lidocaine 4% Patch [Lidoderm 5% Patch] 1 patch TD DAILY 03/03/24 Montelukast [Singulair] 10 mg PO DAILY AT SUPPER 03/03/24 Rimegepant Sulfate [Nurtec Odt] 75 mg SL DAILY 03/03/24 - Past Medical/Surgical History Diabetic: No -: HTN -: Hyperlipidemia -: CVA -: [place] -: Cocaine Abuse 15 years ago -: Hx [place]/ CKD II (Dr. Gibson/ Ramos) -: hernia repair -: appendectomy -: hemorrhoidectomy -: hernia repair Psychosocial/ Personal History: Patient lives at home with his sister. - Family History Mother Medical History: Heart disease, Hypertension, Stroke, Cancer Notes: Breast Father Medical History: Heart disease, Hypertension, GI disease, Stroke, Kidney disease Sister Medical History: Hypertension, Lung disease, Diabetes, Kidney disease Brother Medical History: Hypertension - Social History Smoking Status: Unknown if ever smoked Alcohol use: No CD- Drugs: No Caffeine use: Yes Place of Residence: Home Review of Systems 10-point ROS is otherwise unremarkable General: Weakness, Malaise Physical Examination Temp Pulse Resp BP Pulse Ox 97.9 F 72 16 106/60 99 03/03/24 04:00 03/03/24 07:00 03/03/24 07:00 03/03/24 07:00 03/03/24 07:00 General: Oriented x3, Cooperative HEENT: Atraumatic Neck: Supple Respiratory: Normal air movement Cardiovascular: No edema, Regular rate/rhythm Gastrointestinal: Soft and benign, Non-distended Musculoskeletal: No clubbing, No contractures Integumentary: No rashes, No cyanosis Neurological: Normal speech Laboratory Data (last 24 hrs) 03/02/24 03/02/24 03/02/24 15:04 15:04 15:04 WBC 25.50 H Hgb 10.0 L Hct 30.5 L Plt Count 367 PT 12.4 INR 1.13 APTT 28.0 Sodium 139 Potassium 4.0 BUN 37 H Creatinine 4.16 H Glucose 124 H Total Bilirubin 1.1 H AST 32 ALT 30 Alkaline Phosphatase 132 H Imagings Data: [id number] EXAM DESCRIPTION: US - Renal Ultrasound-Complete - 03/03/2024 7:18 am CLINICAL HISTORY: [place] COMPARISON: Abdomen Pelvis Wo Contrast dated 01/16/2024; Abdomen Pelvis W/Wo Contrast dated 12/14/2023 TECHNIQUE: Sonographic grayscale and color flow images of the kidneys and bladder were obtained. FINDINGS: Both kidneys are normal in size, shape, and echotexture. The right kidney measures 10.9 cm in length. Focal cortical thinning/defect along the mid to lower pole, may reflect focal scarring.. No hydronephrosis, focal mass, or echogenic calculi. The left kidney measures 11.2 cm in length. 2 cm interpolar parapelvic cyst, benign in appearance. No hydronephrosis, focal mass, or echogenic calculi. The urinary bladder shows regional wall thickening anteriorly, up to 11 mm. IMPRESSION: Regional smooth anterior urinary bladder wall thickening, could relate to focal cystitis or underdistention. Possibility of sessile transitional epithelial neoplasia cannot be entirely excluded. Please correlate with urinalysis results. A follow-up ultrasound with maximal bladder distention, or CT urogram can also be considered, for additional evaluation. [id number] EXAM DESCRIPTION: RAD - Foot Right 3 View - 03/02/2024 4:12 pm CLINICAL HISTORY: Right foot pain status post injury FINDINGS: No fracture or dislocation is seen Mild lateral subluxation first proximal phalanx Hallux valgus deformity. Soft tissue swelling [id number] EXAM DESCRIPTION: TOOTIEChest Single View03/02/2024 4:12 pm CLINICAL HISTORY: cough COMPARISON: November 2023 FINDINGS: The lungs appear clear of acute infiltrate. The heart is normal size IMPRESSION: No acute abnormalities displayed [id number] EXAM DESCRIPTION: CT - Head Brain Wo Cont - 03/02/2024 6:10 pm CLINICAL HISTORY: Alteration of awareness/confusion COMPARISON: November 2023 TECHNIQUE: Computed axial tomography of the head was obtained. IV contrast was not requested. All CT scans are performed using dose optimization technique as appropriate and may include automated exposure control or mA/KV adjustment according to patient size. FINDINGS: An intracranial bleed is not seen The ventricles are normal in caliber No extra-axial fluid collection is noted. 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 Small old lacunar infarct left thalamus Fluid within the sinuses/ mastoids is not seen. IMPRESSION: No acute intracranial abnormality is seen If patient's symptoms persist MRI of the brain would be recommended Conclusions/Impression: Stage III CAM[place] in the setting of hypovolemia and hypotension CKD II with Proteinuria -No NSAIDs -Continue IVF Orthostatic Hypotension -Continue IVF -Continue Midodrine Hypoalbuminemia -Protein supplementation prn Anemia in chronic illness -Monitor H&H Hospitalist and ER notes reviewed Thank you kindly for the consultation
[2024-03-03] MEDS: ONDANSETRON 4 MG/2 ML VIAL IV PRN (09:42)
--- NOTE | 2024-03-03 09:55 | P.PN ---
Date of Service: 03/03/24 Subjective: Still slightly confused BP soft Present with jerking movements ROS: 10 point ROS as noted above, otherwise negative Physical exam GEN: Alert, oriented x2 , NAD HEENT: Normal conjunctiva, sclera anicteric CV: Regular rate and rhythm, no edema Pulm: Nonlabored respirations on room air ABD: Soft, nontender, nondistended MSK: No joint tenderness Integumentary: No rashes, mild erythema to medial aspect distal right foot Neuro: Normal speech, normal affect Vitals reviewed Assessment Rule out septic shock secondary to questionable right lower extremity cellulitis vs Hypovolemic shock Metabolic encephalopathy-multifactorial Leukocytosis Acute kidney injury Right foot cellulitiswith mild abrasion History of hypertension Plan Rule out septic shock secondary to questionable right lower extremity cellulitis vs Hypovolemic shock Metabolic encephalopathy-multifactorial Leukocytosis Acute kidney injury Concern for possible Infectious process Right foot with erythema/tenderness but no severe, seems improved from seeing it previously Blood cultures obtain in ED, lactate WNL, BP improved with IV fluid bolus Follow blood cultures Had been working out in the head cutting wood the past few days Mother and patient feel as if he over did it Renal US ordered and pending Nephrology consulted History of hypertension Blood pressure soft at this time Resume home BP meds when appropriate VTE:Heparin subq Code:Full Dispo:48 hours Time Spent Managing Pts Care (In Minutes): 35 <Walt Escobar - Last Filed: 03/03/24 09:56> DOS: 03/03/24 Patient seen and examined on rounds this morning with SENIOR LINUX ADMINISTRATOR Shawn. I performed a substantial part of the MDM during this patient's care today as noted above in the plan of care. I agree with plan of care as noted above with the following additions / correcti ons: BP improved leg looks much improved compared to recent hospitalization having diarrhea, check stool studies, given leukocytosis and diarrhea; recent abx use / hospitalization, etc , possible cdiff <Celso Castrejon - Last Filed: 03/04/24 20:10>
[2024-03-03 10:08] LABS: CDIFF INTERNAL NEG CONTROL White Background (WHITE BKGD); STOOL CONSISTENCY Liquid/Semi-Solid
[2024-03-03 10:10] LABS: C.diff Antigen/Toxin Ag pos : Tox pos (NEG : NEG)
--- NOTE | 2024-03-03 11:54 | P.CNS ---
Date of Consult: 03/03/24 Reason for Consult: Altered mental status Chief Complaint: Altered mental status History of Present Illness: Patient is 63 years of age admitted with altered mental status multiple medical problems including drug review send psychiatric disorder currently alert responsive eyes any shortness of breath chest pain fever or chills currently he was hypotensive and tachycardic on admission Allergies Benzodiazepines Allergy (Severe, Verified 12/13/23 22:46) Anaphylaxis diazepam [From Valium] Allergy (Severe, Verified 12/13/23 22:46) Anaphylaxis ketorolac tromethamine [From Toradol] Allergy (Severe, Verified 12/13/23 22:46) Anaphylaxis Penicillins Allergy (Severe, Verified 12/13/23 22:46) Anaphylaxis venom-honey bee [bee venom (honey bee)] Allergy (Severe, Verified 12/13/23 22:46) Anaphylaxis venom-wasp [Wasp Venom] Allergy (Severe, Verified 12/13/23 22:46) Anaphylaxis alprazolam [From Xanax] Allergy (Verified 12/13/23 22:46) Hives amphetamine aspartate [From Adderall] Allergy (Verified 12/13/23 22:46) Hives amphetamine sulfate [From Adderall] Allergy (Verified 12/13/23 22:46) Hives dextroamphetamine saccharate [From Adderall] Allergy (Verified 12/13/23 22:46) Hives dextroamphetamine sulfate [From Adderall] Allergy (Verified 12/13/23 22:46) Hives lorazepam [From Ativan] Allergy (Verified 12/13/23 22:46) Hives/Rash trazodone Allergy (Verified 12/13/23 22:46) Hives Home Medications: Albuterol Sulfate [Proair Respiclick] 1 puff IH Q4HP PRN 03/03/24 Atorvastatin Calcium 40 mg PO DAILY AT SUPPER 03/03/24 Duloxetine [Cymbalta Dalayed Release Pellets] 20 mg PO BID 03/03/24 Lidocaine 4% Patch [Lidoderm 5% Patch] 1 patch TD DAILY 03/03/24 Montelukast [Singulair] 10 mg PO DAILY AT SUPPER 03/03/24 Rimegepant Sulfate [Nurtec Odt] 75 mg SL DAILY 03/03/24 - Past Medical/Surgical History Diabetic: No -: HTN -: Hyperlipidemia -: CVA -: [place] -: Cocaine Abuse 15 years ago -: Hx [place]/ CKD II (Dr. Gibson/ Ramos) -: hernia repair -: appendectomy -: hemorrhoidectomy -: hernia repair Psychosocial/ Personal History: Patient lives at home with his sister. - Family History Mother Medical History: Heart disease, Hypertension, Stroke, Cancer Notes: Breast Father Medical History: Heart disease, Hypertension, GI disease, Stroke, Kidney disease Sister Medical History: Hypertension, Lung disease, Diabetes, Kidney disease Brother Medical History: Hypertension - Social History Smoking Status: Unknown if ever smoked Alcohol use: No CD- Drugs: No Caffeine use: Yes Place of Residence: Home Review of Systems 10-point ROS is otherwise unremarkable Physical Examination Temp Pulse Resp BP Pulse Ox 98.1 F 88 21 H 112/49 L 99 03/03/24 08:00 03/03/24 10:00 03/03/24 10:00 03/03/24 10:00 03/03/24 10:00 General: Alert, In no apparent distress, Oriented x3 Respiratory: Clear to auscultation bilaterally Cardiovascular: No edema, Regular rate/rhythm, Normal S1 S2 Gastrointestinal: Normal bowel sounds, Soft and benign Laboratory Data (last 24 hrs) 03/02/24 03/02/24 03/02/24 15:04 15:04 15:04 WBC 25.50 H Hgb 10.0 L Hct 30.5 L Plt Count 367 PT 12.4 INR 1.13 APTT 28.0 Sodium 139 Potassium 4.0 BUN 37 H Creatinine 4.16 H Glucose 124 H Total Bilirubin 1.1 H AST 32 ALT 30 Alkaline Phosphatase 132 H - Problems (1) Shock Current Visit: Yes Status: Acute Plan: Patient is 63 years of age admitted with acute renal failure hypotension count was elevated chest x-ray clear urinalysis negative urinalysis is opioid positive he denies fever chills or any cardiopulmonary complaints blood pressure is now improved patient's renal function white count improving await blood cultures oxygenation satisfactory able to transfer to the floor
[2024-03-03] MEDS ORDERED: VANCOMYCIN ORAL SOLN 250 MG/5 ML OSYR PO SCH (12:00)
[2024-03-03] MEDS: VANCOMYCIN HCL 125 MG CAPSULE PO SCH (13:52)
[2024-03-03] MEDS: Levofloxacin 250mg IV 250 MG/50 ML BAG IV SCH (21:47)
[2024-03-04 05:42] LABS: Anion Gap 9.3 mEq/L (5.0-15.0); Phosphorus 2.7 mg/dL (2.5-4.9); Potassium 3.3 mEq/L (3.5-5.1)
[2024-03-04 05:59] LABS: Absolute Eosinophils 0.1 K/uL (0-0.5); Absolute Lymphocytes (CBC) 0.6 K/uL (0.7-4.9); Absolute Monocytes 0.9 K/uL (0.1-1.3); Absolute Neutrophil 14.2 K/uL (1.8-8.0); Basophils % 0.2 % (0-1.3); Eosinophils % 0.4 % (0-4.4); Hematocrit 27.2 % (39.6-49.0); Hemoglobin 9.3 g/dL (13.6-17.9); MCH 31.1 pg (27.0-35.0); MCHC 34.3 g/dL (32.0-36.0); MCV 90.7 fL (80-100); MPV 7.5 fL (7.6-11.3); Monocytes % 5.9 % (3.3-12.3); Neutrophils % 89.5 % (41.7-73.7); Platelets 310 thou/uL (152-406); Red Cell Distribution Width 15.3 % (12.1-15.2)
[2024-03-04] MEDS: POTASSIUM 25 MEQ EFFERV TAB PO ONE (09:58)
[2024-03-04] MEDS: PANTOPRAZOLE 40MG TABLET PO SCH (09:59)
[2024-03-04] MEDS: HYDROCODONE/APAP 7.5/325 MG TAB PO PRN (09:59)
[2024-03-04] MEDS ORDERED: VANCOMYCIN 1.5 GM in NA CHLORIDE 0.9% 500 ML IVPB SCH (12:00)
--- NOTE | 2024-03-04 12:30 | P.PN ---
Subjective Date of Service: 03/04/24 Chief Complaint: Altered mental status Subjective: Improving (Patient is improving doing much better differential positive) Review of Systems General: Weakness Respiratory: Shortness of Breath Physical Examination - Vital Signs Temperature: 98.6 F Blood Pressure: 133/80 Pulse: 78 Respirations: 20 Pulse Ox (%): 98 - Physical Exam General: In no apparent distress, Oriented x3 Respiratory: Clear to auscultation bilaterally Cardiovascular: Regular rate/rhythm Assessment And Plan - Current Problems (Diagnosis) (1) Shock Current Visit: Yes Status: Acute Plan: Shock is resolved unknown etiology blood cultures all negative patient's renal function is improving white count is declining add Dulera (2) COPD (chronic obstructive pulmonary disease) Current Visit: Yes Status: Acute Plan: Patient has a history of COPD continue with bronchodilators patient is positive for C. difficile toxin on oral vancomycin and DC levofloxacin patient does have diarrhea DC midodrine DC pantoprazole Qualifiers: COPD type: unspecified COPD Qualified Code(s): J44.9 - Chronic obstructive pulmonary disease, unspecified (3) Clostridioides difficile infection Current Visit: Yes Status: Acute Plan: DC levofloxacin pantoprazole as risk factors for C. difficile infection agree with vancomycin
--- NOTE | 2024-03-04 14:43 | P.PN ---
Date of Service: 03/04/24 Subjective: Mental status improved Complains of abdominal pain ROS: 10 point ROS as noted above, otherwise negative Physical exam GEN: Alert, oriented x2 , NAD HEENT: Normal conjunctiva, sclera anicteric CV: Regular rate and rhythm, no edema Pulm: Nonlabored respirations on room air ABD: Soft, mild generalized abdominal tenderness, nondistended MSK: No joint tenderness Integumentary: No rashes, mild erythema to medial aspect distal right foot Neuro: Normal speech, normal affect Vitals reviewed Assessment Septic shock/hypovolemic shock secondary to C. difficile infection/hypovolemia Metabolic encephalopathy-multifactorial Leukocytosis Acute kidney injury Right foot cellulitiswith mild abrasion History of hypertension Plan Septic shock/hypovolemic shock secondary to C. difficile infection/hypovolemia Metabolic encephalopathy-multifactorial Leukocytosis Acute kidney injury Patient had developed diarrhea overnight 03/02 C. difficile test was sent and positive Started on oral Vanc 6/5-will continue for total of at least 10 days Renal function improving with IV fluids Tolerating diet Right foot cellulitiswith mild abrasion Doubt cellulitis, minimal erythema noted Suspect infection is from C. difficile History of hypertension Resume home BP meds when appropriate VTE:Heparin subq Code:Full Dispo: 48 to 72 hours Time Spent Managing Pts Care (In Minutes): 35
[2024-03-04] MEDS: DULERA 200/5 (MOMETASONE/FORMOTEROL) INHALER IH SCH (21:00)
[2024-03-04] MEDS: Ringers Lactate 1,000 ML IV SCH (21:05)
--- NOTE | 2024-03-04 21:06 | P.PN ---
Date of Service: 03/04/24 Vital Signs Temp Pulse Resp BP Pulse Ox 97.2 F 56 20 181/91 H 98 03/04/24 20:00 03/04/24 20:00 03/04/24 20:00 03/04/24 20:00 03/04/24 20:00 Medications Acetaminophen (Acetaminophen 325 Mg Tablet) 325 mg PO Q4H PRN PRN Reason: TEMP > 100' F Hydrocodone Bitart/Acetaminophen (Hydrocodone/Apap 7.5/325 Mg Tab) 1 tab PO Q6H PRN PRN Reason: Pain scale 5-7 (Moderate) Last Admin: 03/04/24 09:59 Dose: 1 tab Albuterol Sulfate (Albuterol 2.5 Mg/3 Ml Neb Lucia) 2.5 mg NEB [id number] PRN PRN Reason: SHORTNESS OF BREATH Atorvastatin Calcium (Atorvastatin 40 Mg Tab) 40 mg PO DAILY 5 PM [facility] Last Admin: 03/04/24 17:12 Dose: 40 mg Duloxetine HCl (Duloxetine 20 Mg Cap) 20 mg PO BID [facility] Last Admin: 03/04/24 09:59 Dose: 20 mg Enoxaparin Sodium (Enoxaparin 30 Mg/0.3 Ml) 30 mg SQ DAILY [facility] Last Admin: 03/04/24 09:58 Dose: 30 mg Home Med (Rimegepant Sulfate [Nurtec Odt]) 75 mg SL DAILY PRN PRN Reason: Pain scale 5-7 (Moderate) Lactated Ringer's (Lactated Ringers) 1,000 mls @ 150 mls/hr IV .Q6H40M [facility] Last Admin: 03/04/24 14:33 Dose: 1,000 mls Ipratropium [place] (Ipratropium Brom 0.5mg/2.5ml) 0.5 mg NEB [id number] PRN PRN Reason: SHORTNESS OF BREATH Lidocaine (Lidocaine 4% Patch) 1 patch TD DAILY PRN PRN Reason: Pain scale 2-4 (Mild) Montelukast Sodium (Montelukast 10 Mg Tab) 10 mg PO DAILY 5 PM [facility] Last Admin: 03/04/24 17:13 Dose: 10 mg Morphine Sulfate (Morphine 2 Mg/Ml Syr) 2 mg IV Q4H PRN PRN Reason: Pain scale 5-7 (Moderate) Last Admin: 03/04/24 14:32 Dose: 2 mg Ondansetron HCl (Ondansetron 4 Mg/2 Ml Vial) 4 mg IV Q8H PRN PRN Reason: NAUSEA / VOMITING Last Admin: 03/03/24 09:42 Dose: 4 mg Vancomycin HCl (Vancomycin Hcl 125 Mg Capsule) 125 mg PO Q6HR [facility]; Protocol Last Admin: 03/04/24 17:13 Dose: 125 mg Zinc Sulfate (Zinc Sulfate 220 Mg Cap) 220 mg PO DAILY [facility] Last Admin: 03/04/24 09:59 Dose: 220 mg Microbiology Results 03/02/24 14:53 Blood - Blood Aerobic Blood Culture - Preliminary No growth in 24 hours. 03/02/24 14:53 Blood - Blood Anaerobic Blood Culture - Preliminary No growth in 24 hours. 03/02/24 15:04 Blood - Blood Aerobic Blood Culture - Preliminary No growth in 24 hours. 03/02/24 15:04 Blood - Blood Anaerobic Blood Culture - Preliminary No growth in 24 hours. Assessment/ Plan: Nephrology No dyspnea No chest pain No acute events overnight Vitals, medications, blood work and imaging reviewed in the chart General: Oriented x3, Cooperative HEENT: Atraumatic Neck: Supple Respiratory: Normal air movement Cardiovascular: No edema, Regular rate/rhythm Gastrointestinal: Soft and benign, Non-distended Musculoskeletal: No clubbing, No contractures Integumentary: No rashes, No cyanosis Neurological: Normal speech Laboratory Data (last 24 hrs) 03/02/24 03/02/24 03/02/24 15:04 15:04 15:04 WBC 25.50 H Hgb 10.0 L Hct 30.5 L Plt Count 367 PT 12.4 INR 1.13 APTT 28.0 Sodium 139 Potassium 4.0 BUN 37 H Creatinine 4.16 H Glucose 124 H Total Bilirubin 1.1 H AST 32 ALT 30 Alkaline Phosphatase 132 H Imagings Data: [id number] EXAM DESCRIPTION: US - Renal Ultrasound-Complete - 03/03/2024 7:18 am CLINICAL HISTORY: [place] COMPARISON: Abdomen Pelvis Wo Contrast dated 01/16/2024; Abdomen Pelvis W/Wo Contrast dated 12/14/2023 TECHNIQUE: Sonographic grayscale and color flow images of the kidneys and bladder were obtained. FINDINGS: Both kidneys are normal in size, shape, and echotexture. The right kidney measures 10.9 cm in length. Focal cortical thinning/defect along the mid to lower pole, may reflect focal scarring.. No hydronephrosis, focal mass, or echogenic calculi. The left kidney measures 11.2 cm in length. 2 cm interpolar parapelvic cyst, benign in appearance. No hydronephrosis, focal mass, or echogenic calculi. The urinary bladder shows regional wall thickening anteriorly, up to 11 mm. IMPRESSION: Regional smooth anterior urinary bladder wall thickening, could relate to focal cystitis or underdistention. Possibility of sessile transitional epithelial neoplasia cannot be entirely excluded. Please correlate with urinalysis results. A follow-up ultrasound with maximal bladder distention, or CT urogram can also be considered, for additional evaluation. [address] EXAM DESCRIPTION: RAD - Foot Right 3 View - 03/02/2024 4:12 pm CLINICAL HISTORY: Right foot pain status post injury FINDINGS: No fracture or dislocation is seen Mild lateral subluxation first proximal phalanx Hallux valgus deformity. Soft tissue swelling [id number] EXAM DESCRIPTION: RADChest Single View03/02/2024 4:12 pm CLINICAL HISTORY: cough COMPARISON: November 2023 FINDINGS: The lungs appear clear of acute infiltrate. The heart is normal size IMPRESSION: No acute abnormalities displayed [address] EXAM DESCRIPTION: CT - Head Brain Wo Cont - 03/02/2024 6:10 pm CLINICAL HISTORY: Alteration of awareness/confusion COMPARISON: November 2023 TECHNIQUE: Computed axial tomography of the head was obtained. IV contrast was not requested. All CT scans are performed using dose optimization technique as appropriate and may include automated exposure control or mA/KV adjustment according to patient size. FINDINGS: An intracranial bleed is not seen The ventricles are normal in caliber No extra-axial fluid collection is noted. 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 Small old lacunar infarct left thalamus Fluid within the sinuses/ mastoids is not seen. IMPRESSION: No acute intracranial abnormality is seen If patient's symptoms persist MRI of the brain would be recommended Conclusions/Impression: Stage III [place] in the setting of hypovolemia and hypotension CKD II with Proteinuria -No NSAIDs -Reduce IVF Hypokalemia -Replete potassium HTN with CKD Orthostatic Hypotension, resolved -Reduce IVF -Discontinue Midodrine Hypoalbuminemia -Protein supplementation prn Anemia in chronic illness -Monitor H&H Hospitalist note reviewed Case reviewed with Dr. Castrejon
[2024-03-05 07:07] LABS: Absolute Basophils 0.1 K/uL (0-0.5); Absolute Eosinophils 0.3 K/uL (0-0.5); Absolute Lymphocytes (CBC) 1.4 K/uL (0.7-4.9); Absolute Monocytes 0.8 K/uL (0.1-1.3); Absolute Neutrophil 7.8 K/uL (1.8-8.0); Basophils % 0.5 % (0-1.3); Hematocrit 35.1 % (39.6-49.0); Hemoglobin 11.6 g/dL (13.6-17.9); Lymphocytes % 13.2 % (15.3-44.8); MCH 29.8 pg (27.0-35.0); MCHC 33.1 g/dL (32.0-36.0); MCV 89.9 fL (80-100); MPV 8.1 fL (7.6-11.3); Monocytes % 8.1 % (3.3-12.3); Neutrophils % 75.2 % (41.7-73.7); Nucleated Red Blood Cells % 0.1 % (0-0); Platelets 357 thou/uL (152-406); RBC Red Blood Cell Count 3.91 M/uL (4.33-5.43)
[2024-03-05 07:09] LABS: Anion Gap 9.1 mEq/L (5.0-15.0); Magnesium 1.6 mg/dL (1.6-2.4); Phosphorus 2.1 mg/dL (2.5-4.9); Potassium 3.1 mEq/L (3.5-5.1)
[2024-03-05] MEDS: AMLODIPINE 5 MG TAB PO SCH (08:28)
[2024-03-05] MEDS: POTASSIUM CL SA 10 MEQ TAB PO ONE (08:28)
[2024-03-05] MEDS ORDERED: levoFLOXacin 500 MG TAB PO SCH (09:00)
[2024-03-05] MEDS: Magnesium Sulfate 2gm IVPB 2 G/50 ML BAG IV ONE ×2 (10:29→10:35)
--- NOTE | 2024-03-05 11:20 | P.PN ---
(S) Pt still having diarrhea, watery loose stools, some abd discomfort. (O) Vitals reviewed in the EMR General: Alert, In no apparent distress HEENT: Atraumatic, Normocephalic Neck: Supple Respiratory: Clear to auscultation bilaterally, Normal air movement Cardiovascular: No edema, Regular rate/rhythm, Normal S1 S2 Gastrointestinal: Soft, Non-distended, no guarding Musculoskeletal: No swelling, No contractures Integumentary: No rashes, No tenderness/swelling Neurological: Normal speech, Normal tone, Normal affect Conclusions/Impression: A/P) 1. Stage III ARF 2nd to pre-renal state, volume depletion, numerous other prior [place] episodes 2nd to recurrent functional [place] in the setting of likely pre-renal azotemia, relative hypotension, concurrent mod dose ACEi use and NSAIDs use 2. Cr level quickly downward trends with IVF hydration. As diarrhea persists, cont IVF but lower rate 3. BP trends up on IVF. Cont to hold ACEi, use CCB with holding parameters 4 C diff diarrhea, mod -management per IM Ankush Beasley MD, [facility]
[2024-03-05] MEDS: Ringers Lactate 1,000 ML IV SCH (11:45)
--- NOTE | 2024-03-05 14:18 | P.PN ---
Date of Service: 03/05/24 Subjective: Mental status improved Complains of abdominal pain Still with frequent diarrhea ROS: 10 point ROS as noted above, otherwise negative Physical exam GEN: Alert, oriented x2 , NAD HEENT: Normal conjunctiva, sclera anicteric CV: Regular rate and rhythm, no edema Pulm: Nonlabored respirations on room air ABD: Soft, mild generalized abdominal tenderness, nondistended MSK: No joint tenderness Integumentary: No rashes, mild erythema to medial aspect distal right foot Neuro: Normal speech, normal affect Vitals reviewed Assessment Septic shock/hypovolemic shock secondary to C. difficile infection/hypovolemia Metabolic encephalopathy-multifactorial Leukocytosis Acute kidney injury Right foot cellulitiswith mild abrasion History of hypertension Plan Septic shock/hypovolemic shock secondary to C. difficile infection/hypovolemia Metabolic encephalopathy-multifactorial Leukocytosis Acute kidney injury Patient had developed diarrhea overnight 03/02 C. difficile test was sent and positive Started on oral Vanc 6/5-will continue for total of at least 10 days Renal function improving with IV fluids-[place] resolved Tolerating diet, advancing continue IVF while still having diarrhea Right foot cellulitiswith mild abrasion Doubt cellulitis, minimal erythema noted Suspect infection is from C. difficile History of hypertension Started back on amlodipine VTE:Heparin subq Code:Full Dispo: 48 to 72 hours Time Spent Managing Pts Care (In Minutes): 35
[2024-03-05] MEDS: MELATONIN 3 MG TABLET PO ONE ×2 (21:10→21:12)
[2024-03-05] MEDS: MORPHINE 4 MG/ML SYR IV PRN (21:17)
[2024-03-06] MEDS ORDERED: MELATONIN 5 MG TABLET PO PRN (11:33)
--- NOTE | 2024-03-06 11:33 | P.PN ---
Date of Service: 03/06/24 Subjective: Complains of abdominal pain Still with frequent diarrhea-noticed some more solid stool today ROS: 10 point ROS as noted above, otherwise negative Physical exam GEN: Alert, oriented x2 , NAD HEENT: Normal conjunctiva, sclera anicteric CV: Regular rate and rhythm, no edema Pulm: Nonlabored respirations on room air ABD: Soft, mild generalized abdominal tenderness, nondistended MSK: No joint tenderness Integumentary: No rashes, mild erythema to medial aspect distal right foot Neuro: Normal speech, normal affect Vitals reviewed Assessment Septic shock/hypovolemic shock secondary to C. difficile infection/hypovolemia Metabolic encephalopathy-multifactorial Leukocytosis Acute kidney injury Right foot cellulitiswith mild abrasion History of hypertension Plan Septic shock/hypovolemic shock secondary to C. difficile infection/hypovolemia Metabolic encephalopathy-multifactorial Leukocytosis Acute kidney injury Patient had developed diarrhea overnight 03/02 C. difficile test was sent and positive Started on oral Vanc /-will continue for total of at least 10 days Renal function improving with IV fluids-[place] resolved Tolerating diet, advancing continue IVF while still having diarrhea Still with frequent diarrhea but possible some improvement in consistency today Right foot cellulitiswith mild abrasion Doubt cellulitis, minimal erythema noted Suspect infection is from C. difficile History of hypertension Started back on amlodipine VTE:Heparin subq Code:Full Dispo: 48 to 72 hours Time Spent Managing Pts Care (In Minutes): 35
[2024-03-06] MEDS ORDERED: DIPHENHYDRAMINE 25 MG TAB/CAP PO PRN (11:34)
[2024-03-06 14:45] LABS: Hematocrit 39.5 % (39.6-49.0); Hemoglobin 13.2 g/dL (13.6-17.9); MCH 29.7 pg (27.0-35.0); MCHC 33.5 g/dL (32.0-36.0); MCV 88.6 fL (80-100); MPV 7.3 fL (7.6-11.3); Platelets 359 thou/uL (152-406); RBC Red Blood Cell Count 4.46 M/uL (4.33-5.43); Red Cell Distribution Width 14.7 % (12.1-15.2)
[2024-03-06 15:03] LABS: Albumin 2.9 g/dL (3.4-5.0); Albumin/Globulin Ratio 0.6 (1.1-1.8); Anion Gap 8.1 mEq/L (5.0-15.0); Bilirubin Total 0.4 mg/dL (0.2-1.0); Globulin 4.7 g/dL (2.3-3.5); Protein, Total 7.6 g/dL (6.4-8.2)
[2024-03-06 15:04] LABS: Potassium 4.1 mEq/L (3.5-5.1)
[2024-03-06] MEDS: ACETAMINOPHEN 325 MG TABLET PO PRN (17:26)
--- NOTE | 2024-03-06 21:07 | P.PN ---
Date of Service: 03/06/24 Vital Signs Temp Pulse Resp BP Pulse Ox 97.4 F 52 16 123/70 98 03/06/24 16:00 03/06/24 16:00 03/06/24 20:56 03/06/24 16:00 03/06/24 20:56 Medications Acetaminophen (Acetaminophen 325 Mg Tablet) 325 mg PO Q4H PRN PRN Reason: TEMP > 100' F Last Admin: 03/06/24 17:26 Dose: 325 mg Hydrocodone Bitart/Acetaminophen (Hydrocodone/Apap 7.5/325 Mg Tab) 1 tab PO Q6H PRN PRN Reason: Pain scale 5-7 (Moderate) Last Admin: 03/06/24 05:04 Dose: 1 tab Albuterol Sulfate (Albuterol 2.5 Mg/3 Ml Neb Lucia) 2.5 mg NEB [id number] PRN PRN Reason: SHORTNESS OF BREATH Amlodipine Besylate (Amlodipine 5 Mg Tab) 5 mg PO DAILY [facility] Last Admin: 03/06/24 09:05 Dose: 5 mg Atorvastatin Calcium (Atorvastatin 40 Mg Tab) 40 mg PO DAILY 5 PM [facility] Last Admin: 03/06/24 17:26 Dose: 40 mg Diphenhydramine HCl (Diphenhydramine 25 Mg Tab/Cap) 50 mg PO BEDTIME PRN PRN Reason: INSOMNIA Duloxetine HCl (Duloxetine 20 Mg Cap) 20 mg PO BID [facility] Last Admin: 03/06/24 09:05 Dose: 20 mg Enoxaparin Sodium (Enoxaparin 30 Mg/0.3 Ml) 30 mg SQ DAILY [facility] Last Admin: 03/06/24 09:04 Dose: 30 mg Home Med (Rimegepant Sulfate [Nurtec Odt]) 75 mg SL DAILY PRN PRN Reason: Pain scale 5-7 (Moderate) Lactated Ringer's (Lactated Ringers) 1,000 mls @ 50 mls/hr IV .Q20H [facility] Last Admin: 03/06/24 05:04 Dose: 1,000 mls Ipratropium [place] (Ipratropium Brom 0.5mg/2.5ml) 0.5 mg NEB [id number] PRN PRN Reason: SHORTNESS OF BREATH Lidocaine (Lidocaine 4% Patch) 1 patch TD DAILY PRN PRN Reason: Pain scale 2-4 (Mild) Melatonin (Melatonin 5 Mg Tablet) 5 mg PO BEDTIME PRN PRN PRN Reason: INSOMNIA Montelukast Sodium (Montelukast 10 Mg Tab) 10 mg PO DAILY 5 PM [facility] Last Admin: 03/06/24 17:26 Dose: 10 mg Morphine Sulfate (Morphine 4 Mg/Ml Syr) 2 mg IV Q4H PRN PRN Reason: Pain scale 8-10 (Severe) Last Admin: 03/06/24 20:56 Dose: 2 mg Ondansetron HCl (Ondansetron 4 Mg/2 Ml Vial) 4 mg IV Q8H PRN PRN Reason: NAUSEA / VOMITING Last Admin: 03/03/24 09:42 Dose: 4 mg Vancomycin HCl (Vancomycin Hcl 125 Mg Capsule) 125 mg PO Q6HR [facility]; Protocol Last Admin: 03/06/24 17:26 Dose: 125 mg Zinc Sulfate (Zinc Sulfate 220 Mg Cap) 220 mg PO DAILY [facility] Last Admin: 03/06/24 09:05 Dose: 220 mg Microbiology Results 03/02/24 14:53 Blood - Blood Aerobic Blood Culture - Preliminary No growth in 24 hours. 03/02/24 14:53 Blood - Blood Anaerobic Blood Culture - Preliminary No growth in 24 hours. 03/02/24 15:04 Blood - Blood Aerobic Blood Culture - Preliminary No growth in 24 hours. 03/02/24 15:04 Blood - Blood Anaerobic Blood Culture - Preliminary No growth in 24 hours. Assessment/ Plan: Nephrology No dyspnea No chest pain No acute events overnight Vitals, medications, blood work and imaging reviewed in the chart General: Oriented x3, Cooperative HEENT: Atraumatic Neck: Supple Respiratory: Normal air movement Cardiovascular: No edema, Regular rate/rhythm Gastrointestinal: Soft and benign, Non-distended Musculoskeletal: No clubbing, No contractures Integumentary: No rashes, No cyanosis Neurological: Normal speech Laboratory Data (last 24 hrs) 03/02/24 03/02/24 03/02/24 15:04 15:04 15:04 WBC 25.50 H Hgb 10.0 L Hct 30.5 L Plt Count 367 PT 12.4 INR 1.13 APTT 28.0 Sodium 139 Potassium 4.0 BUN 37 H Creatinine 4.16 H Glucose 124 H Total Bilirubin 1.1 H AST 32 ALT 30 Alkaline Phosphatase 132 H Imagings Data: [id number] EXAM DESCRIPTION: US - Renal Ultrasound-Complete - 03/03/2024 7:18 am CLINICAL HISTORY: [place] COMPARISON: Abdomen Pelvis Wo Contrast dated 01/16/2024; Abdomen Pelvis W/Wo Contrast dated 12/14/2023 TECHNIQUE: Sonographic grayscale and color flow images of the kidneys and bladder were obtained. FINDINGS: Both kidneys are normal in size, shape, and echotexture. The right kidney measures 10.9 cm in length. Focal cortical thinning/defect along the mid to lower pole, may reflect focal scarring.. No hydronephrosis, focal mass, or echogenic calculi. The left kidney measures 11.2 cm in length. 2 cm interpolar parapelvic cyst, benign in appearance. No hydronephrosis, focal mass, or echogenic calculi. The urinary bladder shows regional wall thickening anteriorly, up to 11 mm. IMPRESSION: Regional smooth anterior urinary bladder wall thickening, could relate to focal cystitis or underdistention. Possibility of sessile transitional epithelial neoplasia cannot be entirely excluded. Please correlate with urinalysis results. A follow-up ultrasound with maximal bladder distention, or CT urogram can also be considered, for additional evaluation. [address] EXAM DESCRIPTION: RAD - Foot Right 3 View - 03/02/2024 4:12 pm CLINICAL HISTORY: Right foot pain status post injury FINDINGS: No fracture or dislocation is seen Mild lateral subluxation first proximal phalanx Hallux valgus deformity. Soft tissue swelling [address] EXAM DESCRIPTION: RADChest Single View03/02/2024 4:12 pm CLINICAL HISTORY: cough COMPARISON: November 2023 FINDINGS: The lungs appear clear of acute infiltrate. The heart is normal size IMPRESSION: No acute abnormalities displayed [id number] EXAM DESCRIPTION: CT - Head Brain Wo Cont - 03/02/2024 6:10 pm CLINICAL HISTORY: Alteration of awareness/confusion COMPARISON: November 2023 TECHNIQUE: Computed axial tomography of the head was obtained. IV contrast was not requested. All CT scans are performed using dose optimization technique as appropriate and may include automated exposure control or mA/KV adjustment according to patient size. FINDINGS: An intracranial bleed is not seen The ventricles are normal in caliber No extra-axial fluid collection is noted. 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 Small old lacunar infarct left thalamus Fluid within the sinuses/ mastoids is not seen. IMPRESSION: No acute intracranial abnormality is seen If patient's symptoms persist MRI of the brain would be recommended Conclusions/Impression: Stage III [place] in the setting of hypovolemia and hypotension CKD II with Proteinuria -No NSAIDs -Gentle IVF Hypokalemia -Replete potassium prn HTN with CKD Orthostatic Hypotension, resolved -Gentle IVF Hypoalbuminemia -Protein supplementation prn Anemia in chronic illness -Monitor H&H Hospitalist note reviewed Case reviewed with Dr. Castrejon
[2024-03-07] MEDS: ALBUTEROL 2.5 MG/3 ML NEB SOL NEB PRN (00:36)
[2024-03-07] MEDS: IPRATROPIUM BROM 0.5MG/2.5ML NEB PRN (00:37)
[2024-03-07 07:20] LABS: Hematocrit 40.5 % (39.6-49.0); Hemoglobin 13.8 g/dL (13.6-17.9); MCH 30.4 pg (27.0-35.0); MCHC 34.2 g/dL (32.0-36.0); Platelets 357 thou/uL (152-406); RBC Red Blood Cell Count 4.55 M/uL (4.33-5.43); Red Cell Distribution Width 14.4 % (12.1-15.2)
[2024-03-07 07:41] LABS: Albumin 3.3 g/dL (3.4-5.0); Albumin/Globulin Ratio 0.7 (1.1-1.8); Anion Gap 7.2 mEq/L (5.0-15.0); Bilirubin Total 0.3 mg/dL (0.2-1.0); Globulin 4.8 g/dL (2.3-3.5); Potassium 3.2 mEq/L (3.5-5.1); Protein, Total 8.1 g/dL (6.4-8.2)
[2024-03-07] MEDS: POTASSIUM CL SA 10 MEQ TAB PO ONE ×2 (09:01→16:28)
--- NOTE | 2024-03-07 11:11 | P.PN ---
Date of Service: 03/07/24 Subjective: Complains of abdominal pain Frequency of diarrhea and consistency improving tolerating diet, slept better ROS: 10 point ROS as noted above, otherwise negative Physical exam GEN: Alert, oriented x2 , NAD HEENT: Normal conjunctiva, sclera anicteric CV: Regular rate and rhythm, no edema Pulm: Nonlabored respirations on room air ABD: Soft, mild generalized abdominal tenderness, nondistended MSK: No joint tenderness Integumentary: No rashes, mild erythema to medial aspect distal right foot Neuro: Normal speech, normal affect Vitals reviewed Assessment Septic shock/hypovolemic shock secondary to C. difficile infection/hypovolemia Metabolic encephalopathy-multifactorial Leukocytosis Acute kidney injury Right foot cellulitiswith mild abrasion History of hypertension Plan Septic shock/hypovolemic shock secondary to C. difficile infection/hypovolemia Metabolic encephalopathy-multifactorial Leukocytosis Acute kidney injury Patient had developed diarrhea overnight 03/02 C. difficile test was sent and positive Started on oral Vanc 03/03-will continue for total of at least 10 days Renal function improving with IV fluids-[place] resolved Tolerating diet, advancing continue IVF while still having diarrhea Still with frequent diarrhea but improvement in consistency and frequency Started on probiotics 03/07 Right foot cellulitiswith mild abrasion Doubt cellulitis, minimal erythema noted Suspect infection is from C. difficile History of hypertension Started back on amlodipine VTE:Heparin subq Code:Full Dispo: 48 to 72 hours Time Spent Managing Pts Care (In Minutes): 35
[2024-03-07] MEDS: LACTOBACILLUS/ACIDOPHILUS TAB PO SCH (13:13)
--- NOTE | 2024-03-07 16:20 | P.PN ---
Date of Service: 03/07/24 Vital Signs Temp Pulse Resp BP Pulse Ox 97.9 F 65 16 143/101 H 99 03/07/24 15:46 03/07/24 15:46 03/07/24 15:46 03/07/24 15:46 03/07/24 15:46 Medications Acetaminophen (Acetaminophen 325 Mg Tablet) 325 mg PO Q4H PRN PRN Reason: TEMP > 100' F Last Admin: 03/06/24 17:26 Dose: 325 mg Hydrocodone Bitart/Acetaminophen (Hydrocodone/Apap 7.5/325 Mg Tab) 1 tab PO Q6H PRN PRN Reason: Pain scale 5-7 (Moderate) Last Admin: 03/07/24 06:35 Dose: 1 tab Albuterol Sulfate (Albuterol 2.5 Mg/3 Ml Neb Lucia) 2.5 mg NEB [id number] PRN PRN Reason: SHORTNESS OF BREATH Last Admin: 03/07/24 00:36 Dose: 2.5 mg Amlodipine Besylate (Amlodipine 5 Mg Tab) 5 mg PO DAILY [facility] Last Admin: 03/07/24 09:01 Dose: 5 mg Atorvastatin Calcium (Atorvastatin 40 Mg Tab) 40 mg PO DAILY 5 PM [facility] Last Admin: 03/06/24 17:26 Dose: 40 mg Diphenhydramine HCl (Diphenhydramine 25 Mg Tab/Cap) 50 mg PO BEDTIME PRN PRN Reason: INSOMNIA Duloxetine HCl (Duloxetine 20 Mg Cap) 20 mg PO BID [facility] Last Admin: 03/07/24 09:00 Dose: 20 mg Enoxaparin Sodium (Enoxaparin 30 Mg/0.3 Ml) 30 mg SQ DAILY [facility] Last Admin: 03/07/24 09:01 Dose: 30 mg Home Med (Rimegepant Sulfate [Nurtec Odt]) 75 mg SL DAILY PRN PRN Reason: Pain scale 5-7 (Moderate) Ipratropium [place] (Ipratropium Brom 0.5mg/2.5ml) 0.5 mg NEB [id number] PRN PRN Reason: SHORTNESS OF BREATH Last Admin: 03/07/24 00:37 Dose: 0.5 mg Lactobacillus Acidoph/Bulgaricus (Lactobacillus/Acidophilus Tab) 1 tab PO TID [facility] Last Admin: 03/07/24 13:13 Dose: 1 tab Lidocaine (Lidocaine 4% Patch) 1 patch TD DAILY PRN PRN Reason: Pain scale 2-4 (Mild) Melatonin (Melatonin 5 Mg Tablet) 5 mg PO BEDTIME PRN PRN PRN Reason: INSOMNIA Montelukast Sodium (Montelukast 10 Mg Tab) 10 mg PO DAILY 5 PM [facility] Last Admin: 03/06/24 17:26 Dose: 10 mg Morphine Sulfate (Morphine 4 Mg/Ml Syr) 2 mg IV Q4H PRN PRN Reason: Pain scale 8-10 (Severe) Last Admin: 03/07/24 13:13 Dose: 2 mg Ondansetron HCl (Ondansetron 4 Mg/2 Ml Vial) 4 mg IV Q8H PRN PRN Reason: NAUSEA / VOMITING Last Admin: 03/03/24 09:42 Dose: 4 mg Vancomycin HCl (Vancomycin Hcl 125 Mg Capsule) 125 mg PO Q6HR [facility]; Protocol Last Admin: 03/07/24 11:28 Dose: 125 mg Zinc Sulfate (Zinc Sulfate 220 Mg Cap) 220 mg PO DAILY [facility] Last Admin: 03/07/24 09:01 Dose: 220 mg Microbiology Results 03/02/24 14:53 Blood - Blood Aerobic Blood Culture - Final No growth in 5 days. 03/02/24 14:53 Blood - Blood Anaerobic Blood Culture - Final No growth in 5 days. 03/02/24 15:04 Blood - Blood Aerobic Blood Culture - Final No growth in 5 days. 03/02/24 15:04 Blood - Blood Anaerobic Blood Culture - Final No growth in 5 days. Assessment/ Plan: Nephrology No dyspnea No chest pain Persistent diarrhea No acute events overnight Vitals, medications, blood work and imaging reviewed in the chart General: Oriented x3, Cooperative HEENT: Atraumatic Neck: Supple Respiratory: Normal air movement Cardiovascular: No edema, Regular rate/rhythm Gastrointestinal: Soft and benign, Non-distended Musculoskeletal: No clubbing, No contractures Integumentary: No rashes, No cyanosis Neurological: Normal speech Laboratory Data (last 24 hrs) 03/02/24 03/02/24 03/02/24 15:04 15:04 15:04 WBC 25.50 H Hgb 10.0 L Hct 30.5 L Plt Count 367 PT 12.4 INR 1.13 APTT 28.0 Sodium 139 Potassium 4.0 BUN 37 H Creatinine 4.16 H Glucose 124 H Total Bilirubin 1.1 H AST 32 ALT 30 Alkaline Phosphatase 132 H Imagings Data: [id number] EXAM DESCRIPTION: US - Renal Ultrasound-Complete - 03/03/2024 7:18 am CLINICAL HISTORY: [place] COMPARISON: Abdomen Pelvis Wo Contrast dated 01/16/2024; Abdomen Pelvis W/Wo Contrast dated 12/14/2023 TECHNIQUE: Sonographic grayscale and color flow images of the kidneys and bladder were obtained. FINDINGS: Both kidneys are normal in size, shape, and echotexture. The right kidney measures 10.9 cm in length. Focal cortical thinning/defect along the mid to lower pole, may reflect focal scarring.. No hydronephrosis, focal mass, or echogenic calculi. The left kidney measures 11.2 cm in length. 2 cm interpolar parapelvic cyst, benign in appearance. No hydronephrosis, focal mass, or echogenic calculi. The urinary bladder shows regional wall thickening anteriorly, up to 11 mm. IMPRESSION: Regional smooth anterior urinary bladder wall thickening, could relate to focal cystitis or underdistention. Possibility of sessile transitional epithelial neoplasia cannot be entirely excluded. Please correlate with urinalysis results. A follow-up ultrasound with maximal bladder distention, or CT urogram can also be considered, for additional evaluation. [id number] EXAM DESCRIPTION: RAD - Foot Right 3 View - 03/02/2024 4:12 pm CLINICAL HISTORY: Right foot pain status post injury FINDINGS: No fracture or dislocation is seen Mild lateral subluxation first proximal phalanx Hallux valgus deformity. Soft tissue swelling [id number] EXAM DESCRIPTION: RADChest Single View03/02/2024 4:12 pm CLINICAL HISTORY: cough COMPARISON: November 2023 FINDINGS: The lungs appear clear of acute infiltrate. The heart is normal size IMPRESSION: No acute abnormalities displayed [id number] EXAM DESCRIPTION: CT - Head Brain Wo Cont - 03/02/2024 6:10 pm CLINICAL HISTORY: Alteration of awareness/confusion COMPARISON: November 2023 TECHNIQUE: Computed axial tomography of the head was obtained. IV contrast was not requested. All CT scans are performed using dose optimization technique as appropriate and may include automated exposure control or mA/KV adjustment according to patient size. FINDINGS: An intracranial bleed is not seen The ventricles are normal in caliber No extra-axial fluid collection is noted. 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 Small old lacunar infarct left thalamus Fluid within the sinuses/ mastoids is not seen. IMPRESSION: No acute intracranial abnormality is seen If patient's symptoms persist MRI of the brain would be recommended Conclusions/Impression: Stage III [place] in the setting of hypovolemia and hypotension CKD II with Proteinuria -No NSAIDs -Discontinue IVF Hypokalemia -Replete potassium as ordered HTN with CKD Orthostatic Hypotension, resolved -IVF bolus prn Hypoalbuminemia -Protein supplementation prn Anemia in chronic illness -Monitor H&H C.diff Colitis -Continue oral Vanco -Start probiotic Hospitalist note reviewed Case reviewed with Dr. Castrejon
[2024-03-08 08:29] LABS: Hematocrit 42.5 % (39.6-49.0); Hemoglobin 14.3 g/dL (13.6-17.9); MCH 30.1 pg (27.0-35.0); MCHC 33.6 g/dL (32.0-36.0); MCV 89.3 fL (80-100); MPV 6.4 fL (7.6-11.3); Platelets 414 thou/uL (152-406); RBC Red Blood Cell Count 4.76 M/uL (4.33-5.43); Red Cell Distribution Width 14.7 % (12.1-15.2)
[2024-03-08 08:49] LABS: Albumin 3.2 g/dL (3.4-5.0); Albumin/Globulin Ratio 0.7 (1.1-1.8); Anion Gap 6.7 mEq/L (5.0-15.0); Bilirubin Total 0.3 mg/dL (0.2-1.0); Globulin 4.8 g/dL (2.3-3.5); Potassium 3.7 mEq/L (3.5-5.1)
[2024-03-08] MEDS: POTASSIUM CL SA 10 MEQ TAB PO ONE (09:17)
--- NOTE | 2024-03-08 17:25 | P.PN ---
Date of Service: 03/08/24 Subjective: Feeling well this AM, c/o right great toe pain Reports having 8 BM last night, more formed ROS: 10 point ROS as noted above, otherwise negative Physical exam GEN: Alert and oriented x3 , NAD HEENT: Normal conjunctiva, sclera anicteric CV: RRR, S1 S2 present, no edema Pulm: Nonlabored respirations on room air ABD: Soft and benign on palpation, nondistended MSK: 2+ peripheral pulses, right great toe erythema Integumentary: No rashes, mild erythema to medial aspect distal right foot Neuro: Normal speech, normal affect Vitals reviewed Assessment Septic shock/hypovolemic shock secondary to C. difficile infection/hypovolemia Metabolic encephalopathy-multifactorial Leukocytosis Acute kidney injury Right foot cellulitiswith mild abrasion History of hypertension Plan Septic shock/hypovolemic shock secondary to C. difficile infection/hypovolemia Metabolic encephalopathy-multifactorial Leukocytosis Acute kidney injury Patient had developed diarrhea overnight 03/02 C. difficile test was sent and positive Started on oral Vanc 03/03-will continue for total of at least 10 days, End date 03/13 Renal function improving with IV fluids-[place] resolved Tolerating diet, advancing continue IVF while still having diarrhea Still with frequent diarrhea, improved formation Started on probiotics 03/07 Right foot cellulitiswith mild abrasion Doubt cellulitis, minimal erythema noted Suspect infection is from C. difficile History of hypertension Continue amlodipine VTE:Heparin subq Code:Full Dispo: undetermined
[2024-03-08] MEDS: Banana Flakes/T-Galactooligos 1 Dose Packet PO SCH (20:01)
--- NOTE | 2024-03-08 21:03 | P.PN ---
Date of Service: 03/08/24 Vital Signs Temp Pulse Resp BP Pulse Ox 97.5 F 74 16 135/92 H 96 03/08/24 16:00 03/08/24 16:00 03/08/24 19:17 03/08/24 16:00 03/08/24 19:17 Medications Acetaminophen (Acetaminophen 325 Mg Tablet) 325 mg PO Q4H PRN PRN Reason: TEMP > 100' F Last Admin: 03/06/24 17:26 Dose: 325 mg Hydrocodone Bitart/Acetaminophen (Hydrocodone/Apap 7.5/325 Mg Tab) 1 tab PO Q6H PRN PRN Reason: Pain scale 5-7 (Moderate) Last Admin: 03/08/24 12:56 Dose: 1 tab Albuterol Sulfate (Albuterol 2.5 Mg/3 Ml Neb Lucia) 2.5 mg NEB [id number] PRN PRN Reason: SHORTNESS OF BREATH Last Admin: 03/07/24 00:36 Dose: 2.5 mg Amlodipine Besylate (Amlodipine 5 Mg Tab) 5 mg PO DAILY [facility] Last Admin: 03/08/24 09:02 Dose: 5 mg Atorvastatin Calcium (Atorvastatin 40 Mg Tab) 40 mg PO DAILY 5 PM [facility] Last Admin: 03/08/24 16:15 Dose: 40 mg Diphenhydramine HCl (Diphenhydramine 25 Mg Tab/Cap) 50 mg PO BEDTIME PRN PRN Reason: INSOMNIA Duloxetine HCl (Duloxetine 20 Mg Cap) 20 mg PO BID [facility] Last Admin: 03/08/24 20:01 Dose: 20 mg Enoxaparin Sodium (Enoxaparin 30 Mg/0.3 Ml) 30 mg SQ DAILY [facility] Last Admin: 03/08/24 09:03 Dose: 30 mg Home Med (Rimegepant Sulfate [Nurtec Odt]) 75 mg SL DAILY PRN PRN Reason: Pain scale 5-7 (Moderate) Ipratropium [place] (Ipratropium Brom 0.5mg/2.5ml) 0.5 mg NEB [id number] PRN PRN Reason: SHORTNESS OF BREATH Last Admin: 03/07/24 00:37 Dose: 0.5 mg Lactobacillus Acidoph/Bulgaricus (Lactobacillus/Acidophilus Tab) 1 tab PO TID [facility] Last Admin: 03/08/24 20:01 Dose: 1 tab Lidocaine (Lidocaine 4% Patch) 1 patch TD DAILY PRN PRN Reason: Pain scale 2-4 (Mild) Melatonin (Melatonin 5 Mg Tablet) 5 mg PO BEDTIME PRN PRN PRN Reason: INSOMNIA Montelukast Sodium (Montelukast 10 Mg Tab) 10 mg PO DAILY 5 PM [facility] Last Admin: 03/08/24 16:15 Dose: 10 mg Morphine Sulfate (Morphine 4 Mg/Ml Syr) 2 mg IV Q4H PRN PRN Reason: Pain scale 8-10 (Severe) Last Admin: 03/08/24 19:17 Dose: 2 mg Ondansetron HCl (Ondansetron 4 Mg/2 Ml Vial) 4 mg IV Q8H PRN PRN Reason: NAUSEA / VOMITING Last Admin: 03/03/24 09:42 Dose: 4 mg Vancomycin HCl (Vancomycin Hcl 125 Mg Capsule) 125 mg PO Q6HR [facility]; Protocol Last Admin: 03/08/24 17:22 Dose: 125 mg Zinc Sulfate (Zinc Sulfate 220 Mg Cap) 220 mg PO DAILY [facility] Last Admin: 03/08/24 09:02 Dose: 220 mg Microbiology Results 03/02/24 14:53 Blood - Blood Aerobic Blood Culture - Final No growth in 5 days. 03/02/24 14:53 Blood - Blood Anaerobic Blood Culture - Final No growth in 5 days. 03/02/24 15:04 Blood - Blood Aerobic Blood Culture - Final No growth in 5 days. 03/02/24 15:04 Blood - Blood Anaerobic Blood Culture - Final No growth in 5 days. Assessment/ Plan: Nephrology No dyspnea No chest pain Persistent diarrhea Abdominal pain No acute events overnight Vitals, medications, blood work and imaging reviewed in the chart General: Oriented x3, Cooperative HEENT: Atraumatic Neck: Supple Respiratory: Normal air movement Cardiovascular: No edema, Regular rate/rhythm Gastrointestinal: Soft and benign, Non-distended Musculoskeletal: No clubbing, No contractures Integumentary: No rashes, No cyanosis Neurological: Normal speech Laboratory Data (last 24 hrs) 03/02/24 03/02/24 03/02/24 15:04 15:04 15:04 WBC 25.50 H Hgb 10.0 L Hct 30.5 L Plt Count 367 PT 12.4 INR 1.13 APTT 28.0 Sodium 139 Potassium 4.0 BUN 37 H Creatinine 4.16 H Glucose 124 H Total Bilirubin 1.1 H AST 32 ALT 30 Alkaline Phosphatase 132 H Imagings Data: EXAM DESCRIPTION: US - Renal Ultrasound-Complete - 03/03/2024 7:18 am CLINICAL HISTORY: [place] COMPARISON: Abdomen Pelvis Wo Contrast dated 01/16/2024; Abdomen Pelvis W/Wo Contrast dated 12/14/2023 TECHNIQUE: Sonographic grayscale and color flow images of the kidneys and bladder were obtained. FINDINGS: Both kidneys are normal in size, shape, and echotexture. The right kidney measures 10.9 cm in length. Focal cortical thinning/defect along the mid to lower pole, may reflect focal scarring.. No hydronephrosis, focal mass, or echogenic calculi. The left kidney measures 11.2 cm in length. 2 cm interpolar parapelvic cyst, benign in appearance. No hydronephrosis, focal mass, or echogenic calculi. The urinary bladder shows regional wall thickening anteriorly, up to 11 mm. IMPRESSION: Regional smooth anterior urinary bladder wall thickening, could relate to focal cystitis or underdistention. Possibility of sessile transitional epithelial neoplasia cannot be entirely excluded. Please correlate with urinalysis results. A follow-up ultrasound with maximal bladder distention, or CT urogram can also be considered, for additional evaluation. EXAM DESCRIPTION: RAD - Foot Right 3 View - 03/02/2024 4:12 pm CLINICAL HISTORY: Right foot pain status post injury FINDINGS: No fracture or dislocation is seen Mild lateral subluxation first proximal phalanx Hallux valgus deformity. Soft tissue swelling EXAM DESCRIPTION: RADChest Single View03/02/2024 4:12 pm CLINICAL HISTORY: cough COMPARISON: November 2023 FINDINGS: The lungs appear clear of acute infiltrate. The heart is normal size IMPRESSION: No acute abnormalities displayed EXAM DESCRIPTION: CT - Head Brain Wo Cont - 03/02/2024 6:10 pm CLINICAL HISTORY: Alteration of awareness/confusion COMPARISON: November 2023 TECHNIQUE: Computed axial tomography of the head was obtained. IV contrast was not requested. All CT scans are performed using dose optimization technique as appropriate and may include automated exposure control or mA/KV adjustment according to patient size. FINDINGS: An intracranial bleed is not seen The ventricles are normal in caliber No extra-axial fluid collection is noted. 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 Small old lacunar infarct left thalamus Fluid within the sinuses/ mastoids is not seen. IMPRESSION: No acute intracranial abnormality is seen If patient's symptoms persist MRI of the brain would be recommended Conclusions/Impression: Stage III [place] in the setting of hypovolemia and hypotension CKD II with Proteinuria -No NSAIDs Hypokalemia -Replete potassium as ordered HTN with CKD Orthostatic Hypotension, resolved -IVF bolus prn Hypoalbuminemia -Protein supplementation prn Anemia in chronic illness -Monitor H&H C.diff Colitis -Continue oral Vanco -Continue probiotic Hospitalist note reviewed Case reviewed with Dr. Castrejon
[2024-03-09 06:56] LABS: Hematocrit 39.9 % (39.6-49.0); Hemoglobin 13.4 g/dL (13.6-17.9); MCHC 33.7 g/dL (32.0-36.0); MCV 89.1 fL (80-100); MPV 6.5 fL (7.6-11.3); Platelets 418 thou/uL (152-406); RBC Red Blood Cell Count 4.47 M/uL (4.33-5.43); Red Cell Distribution Width 14.8 % (12.1-15.2)
[2024-03-09 07:15] LABS: Albumin 3.2 g/dL (3.4-5.0); Albumin/Globulin Ratio 0.7 (1.1-1.8); Anion Gap 6.9 mEq/L (5.0-15.0); Bilirubin Total 0.2 mg/dL (0.2-1.0); Globulin 4.5 g/dL (2.3-3.5); Potassium 3.9 mEq/L (3.5-5.1); Protein, Total 7.7 g/dL (6.4-8.2)
[2024-03-09 11:46] VITALS: O2SAT 97
[2024-03-09 12:09] VITALS: BP 151/90; TEMP 97.3
--- NOTE | 2024-03-09 13:20 | P.DS ---
Admission Date: 03/02/24 Discharge Date: 03/09/24 Disposition: ROUTINE DISCHARGE Discharge Condition: FAIR Reason for Admission: Altered mental status Brief History of Present Illness: Diagnosis Septic shock/hypovolemic shock secondary to C. difficile infection/hypovolemia Metabolic encephalopathy-multifactorial Leukocytosis Acute kidney injury Right foot cellulitiswith mild abrasion History of hypertension HPI 03/02/24 Wood Jj is a 63-year-old male with past medical history of chronic lower extremity pain on regular duloxetine as well as nurtec use, asthma, HLD, schizophrenia, history of methamphetamine substance abuse was brought in by the mother today because of increasing altered mental status with confusion since the last 3 days. Patient on arrival was a poor historian and cannot drowsy. But at the time of evaluation patient is more awake. He states he does live with the mom. He states he has been having confusion and weakness. He denies any nausea vomiting denies any chest pain. On arrival in the ED patient was noted with low blood pressure with systolic in the 80s over 40s, tachycardic with heart rate in the 110s to 120s, afebrile. Chest x-ray shows no acute infiltrate. EKG was unremarkable except for tachycardia, urine drug screen pending, urinalysis unremarkable. Head CT shows no acute intracranial pathology. X-ray of the right foot shows mild tissue swelling but no acute bony pathology, laboratory workup showed WBC of 25,000 with left shift, BMP shows creatinine of 4.15. But normal lactic acid at 1.4. Troponin also normal. He received 2 L NS bolus with minimal change or improvement in blood pressure. Patient is being admitted for presumed acute sepsis, right foot cellulitis as well as metabolic encephalopathy. Hospital Course: Wood Jj is a pleasant 63 year old male with a past medical history significant for chronic lower extremity pain on regular duloxetine as well as narcotic use, asthma, HLD, schizophrenia, history of methamphetamine substance abuse who was admitted to the [facility] on 03/02/24 for Altered mental status. Wood Jj presented to the ED with chief complaint of altered mental status secondary to Cdiff. He is tolerating PO diet, bowel movements improved, ambulating independently, and hemodynamically stable for discharge. Please continue taking vancomycin outpatient and follow up with Dr. Graham and Dr. Gibson for continued kidney and Cdiff management. On 03/09/24, Wood was seen on morning rounds and deemed medically stable for discharge. Wood was discharged with instructions to schedule follow-up appointments with Dr. Graham, Dr. Gibson, and PCP. Wood was provided prescriptions for norvasc, vancomycin, and lactinex. The patient and family members were given the opportunity to ask questions and reported no further questions. Furthermore, all questions were answered to the best of my ability. A copy of this discharge summary will be sent to the above providers to facilitate continuity of care. Physical exam GEN: Alert and oriented x3 , NAD, conversing well HEENT: Normal conjunctiva, sclera anicteric CV: regular rate and rhythm, S1 S2 present, no edema Pulm: Nonlabored respirations on room air ABD: Soft and benign on palpation, nondistended, nontender MSK: 2+ peripheral pulses, right great toe erythema Integumentary: No rashes, mild erythema to medial aspect distal right foot Neuro: Normal speech, normal affect Vital Signs/Physical Exam: Temp Pulse Resp BP Pulse Ox 97.3 F 82 16 151/90 H 96 03/09/24 11:58 03/09/24 11:58 03/09/24 11:58 03/09/24 11:58 03/09/24 11:58 Laboratory Data at Discharge: WBC 12.60 thou/uL (4.3-10.9) H 03/09/24 06:35 Hgb 13.4 g/dL (13.6-17.9) L 03/09/24 06:35 Hct 39.9 % (39.6-49.0) 03/09/24 06:35 Plt Count 418 thou/uL (152-406) H 03/09/24 06:35 PT 12.4 SECONDS (9.5-12.5) 03/02/24 15:04 INR 1.13 03/02/24 15:04 APTT 28.0 SECONDS (24.3-36.9) 03/02/24 15:04 Sodium 135 mEq/L (136-145) L 03/09/24 06:35 Potassium 3.9 mEq/L (3.5-5.1) 03/09/24 06:35 BUN 19 mg/dL (7-18) H 03/09/24 06:35 Creatinine 1.39 mg/dL (0.70-1.30) H 03/09/24 06:35 Glucose 105 mg/dL (74-106) 03/09/24 06:35 Phosphorus 2.1 mg/dL (2.5-4.9) L 03/05/24 06:27 Magnesium 1.6 mg/dL (1.6-2.4) 03/05/24 06:27 Total Bilirubin 0.2 mg/dL (0.2-1.0) 03/09/24 06:35 AST 47 U/L (15-37) H 03/09/24 06:35 ALT 60 U/L (16-61) 03/09/24 06:35 Alkaline Phosphatase 149 U/L (45-117) H 03/09/24 06:35 Home Medications: Albuterol Sulfate [Proair Respiclick] 1 puff IH Q4HP PRN 03/03/24 Atorvastatin Calcium 40 mg PO DAILY [facility] 03/03/24 Duloxetine [Cymbalta *] 20 mg PO BID 03/03/24 Lidocaine 4% Patch [Lidoderm 5% Patch*] 1 patch TD DAILY 03/03/24 Montelukast [Singulair*] 10 mg PO DAILY AT [facility] 03/03/24 Rimegepant Sulfate [Nurtec Odt] 75 mg SL DAILY 03/03/24 Acidophilus/Bulgaricus [Lactinex Tablet Chewable] 1 each PO TID 5 Days #15 tab.chew 03/09/24 Amlodipine [Norvasc*] 5 mg PO DAILY 30 Days #30 tab 03/09/24 Vancomycin HCl 125 mg PO Q6HR 5 Days #20 cap 03/09/24 New Medications: Vancomycin HCl 125 mg PO Q6HR 5 Days #20 cap Acidophilus/Bulgar[place] [Lactinex Tablet Chewable] 1 each PO TID 5 Days #15 tab.chew Amlodipine [Norvasc*] 5 mg PO DAILY 30 Days #30 tab Physician Discharge Instructions: Wood Jj presented to the ED with chief complaint of altered mental status secondary to Cdiff. Please continue taking vancomycin outpatient and follow up with Dr. Graham and Dr. Gibson for continued kidney and Cdiff management. 1. Please call and schedule a follow-up appointment with your PCP in 3-5 days - Please follow-up with your PCP for medication refills/adjustments -For continued monitoring C. difficile symptoms 2. Please call and schedule follow-up appointment with Dr. Gibson for continued kidney function monitoring 3. Please call and schedule follow-up appointment with Dr. Graham for continued follow-up management 4. Continue regular diet 5. No activity restrictions 5. Return to the ED if symptoms worsen New medications Vancomycin 125 mg p.o. every 6 hours for 5 days Lactinex 1 tablet 3 times daily for 5 days Norvasc 5 mg p.o. daily Diet: Regular Followup: Rosana Red MD [Primary Care Provider] - Smith Gibson DO [ACTIVE - CAN ADMIT] - Joni Graham MD [ACTIVE - CAN ADMIT] -
== END 2024-03-09 13:54 | disposition home or self-care (01) | DRG 871 ==
LOC: ER 14:37 → ERHOLD 20:08 → 3RD-ICU 21:49 → 4TH 03-03 20:46
PROVIDERS: ADMIT Internal Medicine; ATTEND Internal Medicine
DX: A41.9 Sepsis, unspecified organism (principal); G93.41 Metabolic encephalopathy; R65.21 Severe sepsis with septic shock; R57.1 Hypovolemic shock; N17.9 Acute kidney failure, unspecified; A04.72 Enterocolitis due to Clostridium difficile, not specified as recurrent; L03.031 Cellulitis of right toe; R65.20 Severe sepsis without septic shock; Z86.73 Personal history of transient ischemic attack (TIA), and cerebral infarction without residual deficits; I25.2 Old myocardial infarction; I12.9 Hypertensive chronic kidney disease with stage 1 through stage 4 chronic kidney disease, or unspecified chronic kidney disease; N18.2 Chronic kidney disease, stage 2 (mild); J45.909 Unspecified asthma, uncomplicated; E78.5 Hyperlipidemia, unspecified; Z90.49 Acquired absence of other specified parts of digestive tract; D64.9 Anemia, unspecified; E87.6 Hypokalemia; J44.9 Chronic obstructive pulmonary disease, unspecified
CPT/HCPCS: 36415; 70450; 71045; 76770; 80048; 80053; 80202; 80307; 81001; 82550; 82947; 83605; 83735; 84100; 84132; 84145; 84484; 85025; 85027; 85610; 85730; 87040; 87324; 94640; 96361; 96365; 96366; 96367; 96375; 99284; 99285; J0696; J1200; J1630; J1650; J2270; J2405; J3360; J3475; J3535; J7030; J7040; J7050; J7120; J7613; J7644

== ENCOUNTER 2024-03-11 13:18 | Inpatient (IN) | payer MEDICARE ==
--- OUTSIDE RECORDS SUMMARY | 2024-03-11 13:24 | XMS REPORT | Continuity of Care Document ---
Author Name Unknown Address [address] [facility]. [address] [place] [address] [facility] thconnect Address [address] [facility] [address] [place] [address] Care Team Providers Care Pesticide Applicator Name Role Phone Mahad Ross Primary Care Physician Rosana Red Attending Clinician Unavail able Mahad Ross Attending Clinician Unavailable Anitra Adame Attending Clinician Lana Chaparro Attending Clinician Tee Attending Clinician Unavailable ZANE LIU Attending Clinician Unavailable ZANE LIU Attending Clinician Unavailable Glorai Garcia Attending Clinician Corinna Stroud Attending Clinician [phone] CHRISTEN OBANDO Attending Clinician Unavailable Christen Obando DO Attending Clinician [phone] GERTRUDE CHINCHILLA Attending Clinician Unavailab Gertrude Contreras DO Attending Clinician [phone] Cobb_T Attending Clinician Unavailable Ayo ALLRED, Simón Gonzalez Attending Clinician Unavail able CALLIE CUELLAR Attending Clinician Unavailable Callie Cuellar DO Attending Clinician [phone] Deshazo_T Attending Clinician Unavailable Doctor Unassigned, [place] Attending Clinician U navailable NEELA ALBARADO Attending Clinician Unavail able NEELA ALBARADO Attending Clinician Unavail able VIKASH GRIMALDO Attending Clinician Unavailable Silva Szymanski MD Attending Clinician [phone] Vikash Grimaldo MD Attending Clinician [phone] OWENS_Will Attending Clinician Unavailable Gretta Ruiz Attending Clinician PARAG_Yajaira Attending Clinician Unavailable Love Campbell Attending Clinician [phone] Carson_B Admitting Clinician Unavailable CHRISTEN OBANDO Admitting Clinician Unavailable GERTRUDE CHINCHILLA Admitting Clinician Unavailab elma Murdock_Will Admitting Clinician Unavailable CALLIE CUELLAR Admitting Clinician Unavailable Callie Cuellar DO Admitting Clinician [phone] Desjuddzo_T Admitting Clinician Unavailable VIKASH GRIMALDO Admitting Clinician Unavailable Vikash Grimaldo MD Admitting Clinician [phone] OW_T Admitting Clinician Unavailable PARAG_Yajaira Admitting Clinician Unavailable Payers Payer Name Policy Type Policy Number Effective Date Expirati on Date Source [employer] [facility] 111 [id number] 2023 00:00:00 [facility] [employer] (MEDICARE REPLACEMENT HMO) [id number] 2021 00:00:00 DEVOTED [facility] MEDICARE ADVANTAGE PLAN [id number] 2020 00:00:00 [employer] C1 [id number] 2021 00:00:00 [facility] C1 [id number] 2021 00:00:00 [facility] C1 [id number] 2021 00:00:00 [place] [address] [id number] 2021 00:00:00 [facility] Problems Condition Name Condition Details Condition Category Status Onset Date Resolution Date Last Treatment Date Treating Clinician Comments Source Chest pain, unspecifie d type Chest pain, unspecifie d type Disease Active 05-23 00:00: 00 [facility] Other hyperlipid emia Other hyperlipid emia Disease Active 05-23 00:00: 00 [facility] Drug abuse Drug abuse Disease Active 05-23 00:00: 00 [facility] Nonobstruc tive atheroscle rosis of coronary artery Nonobstruc tive atheroscle rosis of coronary artery Disease Active 05-23 00:00: 00 [facility] CAMDEN (acute kidney injury) CAMDEN (acute kidney injury) Disease Active 2020-09 00:00: 00 [facility] Esophageal spasm Esophageal spasm Disease Active 01-26 00:00: 00 [facility] A-fib A-fib Disease Active 01-20 00:00: 00 [facility] Atrial fibrillati on with RVR Atrial fibrillati on with RVR Disease Active 01-19 00:00: 00 [facility] Shortness of breath Shortness of breath Disease Active 01-19 00:00: 00 [facility] NSTEMI (non-ST elevated myocardial infarction ) NSTEMI (non-ST elevated myocardial infarction ) Disease Active 01-19 00:00: 00 [facility] Tobacco abuse Tobacco abuse Disease Active 01-19 00:00: 00 [facility] Family history of early CAD Family history of early CAD Disease Active 01-19 00:00: 00 [facility] Inguinal hernia Inguinal hernia Disease Active 2016-09 00:00: 00 [facility] Status epilepticu s Status epilepticu s Disease Active 01-22 00:00: 00 [facility] Seizure Seizure Disease Active 01-22 00:00: 00 [facility] [id number] COPD, mild Problem [facility] [id number] Leukocytos is, unspecifie d type Problem [facility] [id number] Developmen shruthi venous anomaly, cerebral Problem [facility] [id number] Diverticul osis large intestine w/o perforatio n or abscess w/bleeding Problem [facility] [id number] Atheroscle rosis of abdominal aorta Problem [facility] Cerebral infarction Cerebral infarction , unspecifie d Problem [facility] [id number] Chronic kidney disease, stage 3b Problem [facility] [id number] Osteoarthr itis of lumbar spine, unspecifie d spinal osteoarthr itis complicati on status Problem [facility] [id number] KATHERIN (obstructi ve sleep apnea) Problem [facility] [id number] Left lower lobe pulmonary nodule Problem [facility] [id number] Bipolar disorder, mixed Problem [facility] [id number] Other schizophre nicho Problem [facility] [id number] Altered mental status, unspecifie d altered mental status type Problem [facility] Stroke Stroke Problem [facility] [id number] Incontinen ce of feces, unspecifie d fecal incontinen ce type Problem [facility] Body mass index 30.00 to 34.99 Body mass index [BMI] 31.0-31.9, adult Problem [facility] Chronic kidney disease stage 3A (disorder) Chronic kidney disease, stage 3a Problem [facility] [id number] Primary insomnia Problem [facility] [id number] TIA (transient ischemic attack) Problem [facility] 99159085 Aphasia Problem [facility] [id number] BMI 31.0-31.9, adult Problem [facility] [id number] Other obesity due to excess calories Problem [facility] [id number] Mixed hyperlipid emia Problem [facility] [id number] Paroxysmal atrial fibrillati on Problem [facility] 83617294 Vitamin D deficiency Problem [facility] [id number] Primary osteoarthr itis of left knee Problem [facility] 67555559 Other chronic pain Problem [facility] [id number] Arthritis of knee, left Problem [facility] [id number] Essential hypertensi on Problem [facility] [id number] Tobacco use disorder, continuous Problem [facility] Allergic rhinitis Non-season al allergic rhinitis, unspecifie d trigger Problem [facility] [id number] Primary osteoarthr itis of left shoulder Problem [facility] [id number] Incomplete tear of left rotator cuff, unspecifie d whether traumatic Problem [facility] [id number] Persistent migraine aura with cerebral infarction , intractabl e, with status migrainosu s Problem [facility] [id number] Narcolepsy due to underlying condition without cataplexy Problem [facility] Primary osteoarthr itis Primary osteoarthr itis involving multiple joints Problem [facility] Allergies, Adverse Reactions, Alerts Allergy Name Allergy Type Status Severity Reaction(s) Onset Date Inactive Date Treating Clinician Comments Source LORAZEPA M DRUG INGREDI Active Anaphylaxis 05-23 00:00: 00 [facility] Lorazepa m Propensi ty to adverse reaction s Active Anaphylaxis 05-23 00:00: 00 Pt has had multiple administr ations of ativan IV as well as EM without any negative reactions . [facility] ALLERGY DECONGES TANT DRUG Active High Swelling 2018-09 00:00: 00 [facility] Benadryl Allergy Deconges tant Propensi ty to adverse reaction s Active Swelling 2018-09 00:00: 00 [facility] DIAZEPAM DRUG INGREDI Active High Anaphylaxis 2016-09 00:00: 00 [facility] Diazepam Propensi ty to adverse reaction s to drug Active Anaphylaxis 2016-09 00:00: 00 Patient states it'll stop his heart within seconds of taking it. [facility] PENICILL INS Drug Class Active Anaphylaxis 05-13 00:00: 00 [facility] Penicill ins Propensi ty to adverse reaction s Active Anaphylaxis 05-13 00:00: 00 [facility] Penicill ins Propensi ty to adverse reaction s Active Anaphylaxis 05-13 00:00: 00 [facility] BEE STING / VENOM DRUG INGREDI Active Anaphylaxis 01-22 00:00: 00 [facility] Bee Sting / Venom Propensi ty to adverse reaction s to drug Active Anaphylaxis 01-22 00:00: 00 [facility] VENOM-WA SP DRUG INGREDI Active Anaphylaxis 01-22 00:00: 00 [facility] Venom-Wa sp Propensi ty to adverse reaction s Active Anaphylaxis 01-22 00:00: 00 [facility] gabapent in gabapent in Active nausea and vomiting [facility] tramadol tramadol Active hallucinatio ns [facility] diazepam diazepam Active Stops heart C [facility] penicill in G penicill in G Active swells throat shut [facility] amitript yline amitript yline Active aggression [facility] alprazol am alprazol am Active Unknown [facility] Social History Social Habit Start Date Stop Date Quantity Comments Source History of Tobacco Use Current Smoker [facility] Sex Assigned At [facility] Exposure to SARS-CoV-2 (event) 2023-01-18 00:00:00 2023-01-28 13:20:00 Not sure [facility] Alcohol intake 2022-10-21 00:00:00 2022-10-21 00:00:00 Current non-drinker of alcohol (finding) [facility] Cigarette pack-years 2021-09-27 00:00:00 2021-09-27 00:00:00 [facility] Tobacco use and exposure 2021-09-27 00:00:00 2021-09-27 00:00:00 Smokeless tobacco non-user [facility] Education 2021-09-27 00:00:00 2021-09-27 00:00:00 8 [facility] Cigarettes smoked current (pack per day) - Reported 2021-09-27 00:00:00 2021-09-27 00:00:00 [facility] Smoking Status Start Date Stop Date Source Current Smoker 2024-02-26 00:00:00 [facility] Medications Ordered Medication Name Filled Medication [...] BUPivacaine HCl 01-28 00:00: 00 No 4mL [facility] Cyclobenzap rine HCl 10 MG Cyclobenzap [...] 00 No 1000mL [facility] hydrOXYzine (ATARAX) tablet 25 mg 01-28 18:45: 00 01-28 18:51 :00 No 25mg 25 mg, Oral, ONCE, 1 dose, On Fri01/28/23 at 1345, [facility] dextrose 50 % in water (D50W) injection 50 mL 2021-09 19:30: 00 08-30 18:42 :00 No 50mL 50 mL, Slow IV Push, ONCE, 1 dose, On Fri08/30/22 at 1330, Routine [facility] NaCl 0.9% (NS) bolus infusion 1,000 mL 2021-09 17:45: 00 08-30 19:38 :00 No 1000mL at 999 mL/hr, 1,000 mL, IV Infusion, ONCE, 1 dose, On Fri08/30/22 at 1145, [facility] NaCl 0.9% (NS) bolus infusion 1,000 mL 2021-09 16:00: 00 08-30 16:53 :00 No 1000mL at 999 mL/hr, 1,000 mL, IV Infusion, ONCE, 1 dose, On Fri08/30/22 at 1000, [facility] NaCl 0.9% (NS) bolus infusion 1,000 mL 2021-09 14:45: 00 08-30 15:24 :00 No 1000mL at 999 mL/hr, 1,000 mL, IV Infusion, ONCE, 1 dose, On Fri08/30/22 at 0845, [facility] carvediloL 3.125 mg tablet 05-25 00:00: 00 06-25 04:59 :00 No [id number] 3.125mg Take 1 tablet by mouth in the morning and 1 tablet in the evening. Take with meals. Do all this for 30 days. [facility] nicotine 21 mg/24 hr patch 05-24 17:45: 28 Yes 1{patch } Apply 1 Patch to area(s) every 24 (twenty-fo ur) hours. Patient reports he smokes 13 cigarettes per day. [facility] hydrOXYzine (ATARAX) tablet 10 mg 05-24 15:14: 53 Yes 10mg 10 mg, Oral, Q6HPRN, Starting on Fri05/24/22 at 1014, Until Discontinu ed, Routine, Anxiety, Itching [facility] polyethylen e glycol 3350 powder 17 g 05-24 14:00: 00 Yes 17g 17 g, Oral, DAILY, First dose on Fri05/24/22 at 0900, Until Discontinu ed, Routine [facility] pantoprazol e (PROTONIX) EC tablet 40 mg 05-24 14:00: 00 Yes 40mg 40 mg, Oral, DAILY, First dose on Fri05/24/22 at 0900, Until Discontinu ed, Routine [facility] lisinopriL (PRINIVIL,Z ESTRIL) tablet 2.5 mg 05-24 14:00: 00 Yes 2.5mg 2.5 mg, Oral, DAILY, First dose on Fri05/24/22 at 0900, Until Discontinu ed, Routine [facility] isosorbide mononitrate (IMDUR) 24 hr tablet 30 mg 05-24 14:00: 00 Yes 30mg 30 mg, Oral, DAILY, First dose on Fri05/24/22 at 0900, Until Discontinu ed, Routine [facility] atorvastati n (LIPITOR) tablet 80 mg 05-24 14:00: 00 Yes 80mg 80 mg, Oral, DAILY, First dose on Fri05/24/22 at 0900, Until Discontinu ed, Routine [facility] aspirin chewable tablet 81 mg 05-24 14:00: 00 Yes 81mg 81 mg, Oral, DAILY, First dose on Fri05/24/22 at 0900, Until Discontinu ed, Routine [facility] carvediloL (COREG) tablet 3.125 mg 05-24 13:00: 00 Yes 3.125mg 3.125 mg, Oral, BID MEALS, First dose on Fri05/24/22 at 0800, Until Discontinu ed, Routine [facility] NaCl 0.9% (NS) IV infusion 1,000 mL 05-24 01:30: 00 Yes 1000mL at 75 mL/hr, IV Infusion, CONTINUOUS , Starting on Fri05/23/22 at 2030, Until Discontinu ed, Routine [facility] sennosides- docusate sodium (SENOKOT-S) 8.6-50 mg per tablet 1 tablet 05-24 01:00: 00 Yes 1{tbl} 1 tablet, Oral, BID, First dose on Fri05/23/22 at 2000, Until Discontinu ed, Routine [facility] enoxaparin (LOVENOX) injection 90 mg 05-24 01:00: 00 Yes 1mg/kg 90 mg (rounded from 93 mg = 1 mg/kg ?93 kg), Subcutaneo us, Q12H, First dose (after last modificati on) on Fri05/23/22 at 2000, Until Discontinu ed, Routine [facility] nicotine (NICODERM) 21 mg/24 hr patch 1 Patch 05-24 00:45: 00 Yes 1{patch } 1 Patch, Topical, Administer over 24 Hours, Q24H, First dose on Fri05/23/22 at 1945, Until Discontinu ed, Routine [facility] hydrOXYzine 10 mg tablet 05-24 00:00: 00 06-24 04:59 :00 No [id number] 10mg Take 1 tablet by mouth every 6 (six) hours as needed for Anxiety for up to 30 days. [facility] enoxaparin (LOVENOX) injection 40 mg 05-23 22:00: 00 05-23 23:48 :16 No 40mg 40 mg, Subcutaneo us, DAILY, First dose on Fri05/23/22 at 1700, Until Discontinu ed, Routine [facility] ondansetron (ZOFRAN (PF)) injection 4 mg 05-23 19:56: 03 Yes 4mg 4 mg, Slow IV Push, Q6HPRN, Starting on Fri05/23/22 at 1456, Until Discontinu ed, Routine, Nausea and Vomiting (N/V) [facility] HYDROcodone -acetaminop hen (NORCO 5) 5-325 mg tablet 1 tablet 05-23 19:55: 52 05-25 19:54 :52 No 1{tbl} 1 tablet, Oral, Q6HPRN, Starting on Nohemy 05/23/22 at 1455, Until 05/25/22 at 1454, Routine, Pain (scale 4-6) [facility] acetaminoph en (TYLENOL) tablet 650 mg 05-23 19:55: 49 Yes 650mg 650 mg, Oral, Q6HPRN, Starting on Fri05/23/22 at 1455, Until Discontinu ed, Routine, Pain (scale 1-3) [facility] NaCl 0.9% (NS) bolus infusion 1,000 mL 05-23 18:45: 00 05-23 22:25 :22 No 1000mL at 999 mL/hr, 1,000 mL, IV Infusion, ONCE, 1 dose, On Fri05/23/22 at 1345, VANNA [facility] NaCl 0.9% (NS) bolus infusion 1,000 mL 05-23 15:15: 00 05-23 18:21 :00 No 1000mL at 999 mL/hr, 1,000 mL, IV Infusion, ONCE, 1 dose, On Fri05/23/22 at 1015, VANNA [facility] LORazepam (ATIVAN) injection 1 mg 05-23 13:30: 00 05-23 13:45 :00 No 1mg 1 mg, Slow IV Push, ONCE, 1 dose, On Fri05/23/22 at 0830, STAT
Is the medication being used for status epilepticu s? No [facility] Kenalog (Triamcinol one) Kenalog (Triamcinol one) 05-22 00:00: 00 No 40mg [facility] Bupivicaine Mcdonald Bupivicaine Mcdonald 24 00:00: 00 No 2.5mg [facility] atorvastati n 80 mg tablet 01-27 00:00: 00 Yes 80mg Take 1 tablet by mouth daily. [facility] pantoprazol e 40 mg EC tablet 01-27 00:00: 00 Yes 40mg Take 1 tablet by mouth daily. [facility] isosorbide mononitrate 30 mg 24 hr tablet 01-27 00:00: 00 Yes 30mg Take 1 tablet by mouth daily. [facility] aspirin 81 mg chewable tablet 01-26 00:00: 00 Yes 81mg Take 1 tablet by mouth daily. [facility] lisinopril 2.5 mg tablet 01-26 00:00: 00 Yes 2.5mg Take 1 tablet by mouth daily. [facility] metoprolol succinate XL 50 mg 24 hr tablet 01-26 00:00: 00 05-24 00:00 :00 No 50mg Take 1 tablet by mouth 2 (two) times daily. [facility] zolpidem 5 mg tablet 01-26 00:00: 00 05-24 00:00 :00 No 5mg Take 1 tablet by mouth at bedtime as needed for Insomnia. [facility] sulindac (CLINORIL) 200 mg tablet 15 00:00: 00 05-24 00:00 :00 No 200mg Take 1 tablet by mouth 2 (two) times daily. [facility] Lumateperon e Tosylate 10.5 MG Lumateperon [...] Kenalog (Triamcinolone) Kenalog (Triamcinolone) 2021-07-11 09:32:00 Completed [facility] Bupivicaine Mcdonald Bupivicaine Mcdonald 2021-06-26 09:38:00 Completed [facility] Kenalog (Triamcinolone) Kenalog (Triamcinolone) 2021-06-26 09:38:00 Completed [facility] Bupivicaine Mcdonald Bupivicaine Mcdonald 2021-06-26 09:38:00 Completed [facility] Kenalog (Triamcinolone) Kenalog (Triamcinolone) 2021-06-26 09:38:00 Completed [facility] Bupivicaine Mcdonald Bupivicaine Mcdonald 2021-06-26 09:38:00 Completed [facility] Kenalog (Triamcinolone) Kenalog (Triamcinolone) 2021-06-26 09:38:00 Completed [facility] Bupivicaine Mcdonald Bupivicaine Mcdonald 2021-06-26 09:38:00 Completed [facility] Kenalog (Triamcinolone) Kenalog (Triamcinolone) 2021-06-26 09:38:00 Completed [facility] Bupivicaine Mcdonald Bupivicaine Mcdonald 2021-05-22 08:55:00 Completed [facility] Kenalog (Triamcinolone) Kenalog (Triamcinolone) 2021-05-22 08:55:00 Completed [facility] Bupivicaine Mcdonald Bupivicaine Mcdonald 2021-05-22 08:55:00 Completed [facility] Kenalog (Triamcinolone) Kenalog (Triamcinolone) 2021-05-22 08:55:00 Completed [facility] Bupivicaine Mcdonald Bupivicaine Mcdonald 2021-05-22 08:55:00 Completed [facility] Kenalog (Triamcinolone) Kenalog (Triamcinolone) 2021-05-22 08:55:00 Completed [facility] Bupivicaine Mcdonald Bupivicaine Mcdonald 2021-05-22 08:55:00 Completed [facility] Kenalog (Triamcinolone) Kenalog (Triamcinolone) 2021-05-22 08:55:00 Completed [facility] Pneumococcal Polysaccharide, PPSV23 (PNEUMOVAX) 2018-01-26 00:00:00 Completed [facility] Pneumococcal Polysaccharide, PPSV23 (PNEUMOVAX) 2018-01-26 00:00:00 Completed [facility] Pneumococcal Polysaccharide, PPSV23 (PNEUMOVAX) 2018-01-26 00:00:00 Completed [facility] Pneumococcal Polysaccharide, PPSV23 (PNEUMOVAX) 2018-01-26 00:00:00 Completed [facility] Pneumococcal Polysaccharide, PPSV23 (PNEUMOVAX) 2018-01-26 00:00:00 Completed [facility] Pneumococcal Polysaccharide, PPSV23 (PNEUMOVAX) 2018-01-26 00:00:00 Completed [facility] Pneumococcal Polysaccharide, PPSV23 (PNEUMOVAX) 2018-01-26 00:00:00 Completed [facility] Adacel (Tdap) Adacel (Tdap) 2015-01-11 14:09:00 Completed [facility] Adacel (Tdap) Adacel (Tdap) 2015-01-11 14:09:00 Completed [facility] Adacel (Tdap) Adacel (Tdap) 2015-01-11 14:09:00 Completed [facility] Adacel (Tdap) Adacel (Tdap) 2015-01-11 14:09:00 Completed [facility] Adacel (Tdap) Adacel (Tdap) 2015-01-11 14:09:00 Completed [facility] Adacel (Tdap) Adacel (Tdap) 2015-01-11 14:09:00 Completed [facility] Adacel (Tdap) Adacel (Tdap) 2015-01-11 14:09:00 Completed [facility] Adacel (Tdap) Adacel (Tdap) 2015-01-11 14:09:00 Completed [facility] Adacel (Tdap) Adacel (Tdap) 2015-01-11 14:09:00 Completed [facility] Adacel (Tdap) Adacel (Tdap) 2015-01-11 14:09:00 Completed [facility] Adacel (Tdap) Adacel (Tdap) 2015-01-11 14:09:00 Completed [facility] Adacel (Tdap) Adacel (Tdap) 2015-01-11 14:09:00 Completed [facility] Adacel (Tdap) Adacel (Tdap) 2015-01-11 14:09:00 Completed [facility] Adacel (Tdap) Adacel (Tdap) 2015-01-11 14:09:00 Completed [facility] Adacel (Tdap) Adacel (Tdap) 2015-01-11 14:09:00 Completed [facility] Adacel (Tdap) Adacel (Tdap) 2015-01-11 14:09:00 Completed [facility] Adacel (Tdap) Adacel (Tdap) 2015-01-11 14:09:00 Completed [facility] Adacel (Tdap) Adacel (Tdap) 2015-01-11 14:09:00 Completed [facility] Adacel (Tdap) Adacel (Tdap) 2015-01-11 14:09:00 Completed [facility] Adacel (Tdap) Adacel (Tdap) 2015-01-11 14:09:00 Completed [facility] Adacel (Tdap) Adacel (Tdap) 2015-01-11 14:09:00 Completed [facility] Adacel (Tdap) Adacel (Tdap) 2015-01-11 14:09:00 Completed [facility] Adacel (Tdap) Adacel (Tdap) 2015-01-11 14:09:00 Completed [facility] Adacel (Tdap) Adacel (Tdap) 2015-01-11 14:09:00 Completed [facility] Adacel (Tdap) Adacel (Tdap) 2015-01-11 14:09:00 Completed [facility] Adacel (Tdap) Adacel (Tdap) Unknown Completed [facility] Adacel (Tdap) Adacel (Tdap) Unknown Completed [facility] Adacel (Tdap) Adacel (Tdap) Unknown Completed [facility] Adacel (Tdap) Adacel (Tdap) Unknown Completed [facility] Adacel (Tdap) Adacel (Tdap) Unknown Completed [facility] Adacel (Tdap) Adacel (Tdap) Unknown Completed [facility] Adacel (Tdap) Adacel (Tdap) Unknown Completed [facility] Adacel (Tdap) Adacel (Tdap) Unknown Completed [facility] Adacel (Tdap) Adacel (Tdap) Unknown Completed [facility] Adacel (Tdap) Adacel (Tdap) Unknown Completed [facility] Adacel (Tdap) Adacel (Tdap) Unknown Completed [facility] Adacel (Tdap) Adacel (Tdap) Unknown Completed [facility] Adacel (Tdap) Adacel (Tdap) Unknown Completed [facility] Adacel (Tdap) Adacel (Tdap) Unknown Completed [facility] Adacel (Tdap) Adacel (Tdap) Unknown Completed [facility] Adacel (Tdap) Adacel (Tdap) Unknown Completed [facility] [facility] Adacel (Tdap) Adacel (Tdap) Unknown Completed [facility] Adacel (Tdap) Adacel (Tdap) Unknown Completed [facility] Adacel (Tdap) Adacel (Tdap) Unknown Completed [facility] Adacel (Tdap) Adacel (Tdap) Unknown Completed [facility] Adacel (Tdap) Adacel (Tdap) Unknown Completed [facility] Adacel (Tdap) Adacel (Tdap) Unknown Completed [facility] Adacel (Tdap) Adacel (Tdap) Unknown Completed [facility] Adacel (Tdap) Adacel (Tdap) Unknown Completed [facility] Adacel (Tdap) Adacel (Tdap) Unknown Completed [facility] Adacel (Tdap) Adacel (Tdap) Unknown Completed [facility] Adacel (Tdap) Adacel (Tdap) Unknown Completed [facility] Adacel (Tdap) Adacel (Tdap) Unknown Completed [facility] Adacel (Tdap) Adacel (Tdap) Unknown Completed [facility] Prevnar 20 (PCV20) Prevnar 20 (PCV20) Unknown Completed [facility] Adacel (Tdap) Adacel (Tdap) Unknown Completed [facility] Prevnar 20 (PCV20) Prevnar 20 (PCV20) Unknown Completed [facility] Adacel (Tdap) Adacel (Tdap) Unknown Completed [facility] Prevnar 20 (PCV20) Prevnar 20 (PCV20) Unknown Completed [facility] Adacel (Tdap) Adacel (Tdap) Unknown Completed [facility] Prevnar 20 (PCV20) Prevnar 20 (PCV20) Unknown Completed [facility] Adacel (Tdap) Adacel (Tdap) Unknown Completed [facility] Prevnar 20 (PCV20) Prevnar 20 (PCV20) Unknown Completed [facility] Adacel (Tdap) Adacel (Tdap) Unknown Completed [facility] Prevnar 20 (PCV20) Prevnar 20 (PCV20) Unknown Completed [facility] Adacel (Tdap) Adacel (Tdap) Unknown Completed [facility] Prevnar 20 (PCV20) Prevnar 20 (PCV20) Unknown Completed [facility] Adacel (Tdap) Adacel (Tdap) Unknown Completed [facility] Prevnar 20 (PCV20) Prevnar 20 (PCV20) Unknown Completed [facility] Adacel (Tdap) Adacel (Tdap) Unknown Completed [facility] Prevnar 20 (PCV20) Prevnar 20 (PCV20) Unknown Completed [facility] Adacel (Tdap) Adacel (Tdap) Unknown Completed [facility] Prevnar 20 (PCV20) Prevnar 20 (PCV20) Unknown Completed [facility] Adacel (Tdap) Adacel (Tdap) Unknown Completed [facility] Prevnar 20 (PCV20) Prevnar 20 (PCV20) Unknown Completed [facility] Adacel (Tdap) Adacel (Tdap) Unknown Completed [facility] Prevnar 20 (PCV20) Prevnar 20 (PCV20) Unknown Completed [facility] Adacel (Tdap) Adacel (Tdap) Unknown Completed [facility] Prevnar 20 (PCV20) Prevnar 20 (PCV20) Unknown Completed [facility] Adacel (Tdap) Adacel (Tdap) Unknown Completed [facility] Prevnar 20 (PCV20) Prevnar 20 (PCV20) Unknown Completed [facility] Adacel (Tdap) Adacel (Tdap) Unknown Completed [facility] Prevnar 20 (PCV20) Prevnar 20 (PCV20) Unknown Completed [facility] Adacel (Tdap) Adacel (Tdap) Unknown Completed [facility] Prevnar 20 (PCV20) Prevnar 20 (PCV20) Unknown Completed [facility] Adacel (Tdap) Adacel (Tdap) Unknown Completed [facility] Prevnar 20 (PCV20) Prevnar 20 (PCV20) Unknown Completed [facility] Adacel (Tdap) Adacel (Tdap) Unknown Completed [facility] Prevnar 20 (PCV20) Prevnar 20 (PCV20) Unknown Completed [facility] Adacel (Tdap) Adacel (Tdap) Unknown Completed [facility] Prevnar 20 (PCV20) Prevnar 20 (PCV20) Unknown Completed [facility] Adacel (Tdap) Adacel (Tdap) Unknown Completed [facility] Prevnar 20 (PCV20) Prevnar 20 (PCV20) Unknown Completed [facility] Adacel (Tdap) Adacel (Tdap) Unknown Completed [facility] Prevnar 20 (PCV20) Prevnar 20 (PCV20) Unknown Completed [facility] Adacel (Tdap) Adacel (Tdap) Unknown Completed [facility] Prevnar 20 (PCV20) Prevnar 20 (PCV20) Unknown Completed [facility] Adacel (Tdap) Adacel (Tdap) Unknown Completed [facility] Prevnar 20 (PCV20) Prevnar 20 (PCV20) Unknown Completed [facility] Adacel (Tdap) Adacel (Tdap) Unknown Completed [facility] Prevnar 20 (PCV20) Prevnar 20 (PCV20) Unknown Completed [facility] Adacel (Tdap) Adacel (Tdap) Unknown Completed [facility] Prevnar 20 (PCV20) Prevnar 20 (PCV20) Unknown Completed [facility] Adacel (Tdap) Adacel (Tdap) Unknown Completed [facility] Prevnar 20 (PCV20) Prevnar 20 (PCV20) Unknown Completed [facility] Adacel (Tdap) Adacel (Tdap) Unknown Completed [facility] Prevnar 20 (PCV20) Prevnar 20 (PCV20) Unknown Completed [facility] Adacel (Tdap) Adacel (Tdap) Unknown Completed [facility] Prevnar 20 (PCV20) Prevnar 20 (PCV20) Unknown Completed [facility] Adacel (Tdap) Adacel (Tdap) Unknown Completed [facility] Adacel (Tdap) Adacel (Tdap) Unknown Completed [facility] Adacel (Tdap) Adacel (Tdap) Unknown Completed [facility] Adacel (Tdap) Adacel (Tdap) Unknown Completed [facility] Vital Signs Vital Name Observation Time Observation Value Comments S tricia height 2024-02-26 11:20:00 66 [in_i] Commo n [facility] weight 2024-02-26 11:20:00 190 [lb_av] Comm on [facility] temperature 2024-02-26 11:20:00 98.4 [degF] Com [facility] bmi 2024-02-26 11:20:00 30.66 kg/m2 Comm on [facility] oximetry 2024-02-26 11:20:00 97 % Commo n [facility] respiratory rate 2024-02-26 11:20:00 18 /min [facility] blood pressure systolic 2024-02-26 11:20:00 142 mm[Hg] [facility] blood pressure diastolic 2024-02-26 11:20:00 100 mm[Hg] Common [facility] height 2024-01-29 15:00:00 66 [in_i] Commo n [facility] weight 2024-01-29 15:00:00 193 [lb_av] Comm on [facility] temperature 2024-01-29 15:00:00 98.0 [degF] Com [facility] bmi 2024-01-29 15:00:00 31.15 kg/m2 Comm on [facility] blood pressure systolic 2024-01-29 15:00:00 136 mm[Hg] Common [facility] blood pressure diastolic 2024-01-29 15:00:00 84 mm[Hg] [facility] height 2024-01-27 10:00:00 66 [in_i] Commo n [facility] weight 2024-01-27 10:00:00 190 [lb_av] Comm on [facility] temperature 2024-01-27 10:00:00 98.4 [degF] Com mon [facility] bmi 2024-01-27 10:00:00 30.66 kg/m2 Comm on [facility] oximetry 2024-01-27 10:00:00 96 % Commo n [facility] respiratory rate 2024-01-27 10:00:00 18 /min [facility] blood pressure systolic 2024-01-27 10:00:00 127 mm[Hg] [facility] blood pressure diastolic 2024-01-27 10:00:00 79 mm[Hg] [facility] height 2024-01-15 08:00:00 66 [in_i] Commo n [facility] weight 2024-01-15 08:00:00 196 [lb_av] Comm on [facility] temperature 2024-01-15 08:00:00 98 [degF] Comm on [facility] bmi 2024-01-15 08:00:00 31.63 kg/m2 Comm on [facility] oximetry 2024-01-15 08:00:00 96 % Commo n [facility] respiratory rate 2024-01-15 08:00:00 16 /min [facility] blood pressure systolic 2024-01-15 08:00:00 122 mm[Hg] [facility] blood pressure diastolic 2024-01-15 08:00:00 71 mm[Hg] [facility] height 2023-12-10 15:00:00 66 [in_i] Commo n [facility] weight 2023-12-10 15:00:00 193 [lb_av] Comm on [facility] temperature 2023-12-10 15:00:00 99.2 [degF] Com [facility] bmi 2023-12-10 15:00:00 31.15 kg/m2 Comm on [facility] oximetry 2023-12-10 15:00:00 97 % Commo n [facility] respiratory rate 2023-12-10 15:00:00 16 /min [facility] blood pressure systolic 2023-12-10 15:00:00 142 mm[Hg] [facility] blood pressure diastolic 2023-12-10 15:00:00 98 mm[Hg] Common [facility] height 2023-12-10 15:00:00 66 [in_i] Commo n [facility] weight 2023-12-10 15:00:00 193 [lb_av] Comm on [facility] temperature 2023-12-10 15:00:00 99.2 [degF] Com [facility] bmi 2023-12-10 15:00:00 31.15 kg/m2 Comm on [facility] oximetry 2023-12-10 15:00:00 97 % Commo n [facility] respiratory rate 2023-12-10 15:00:00 16 /min [facility] blood pressure systolic 2023-12-10 15:00:00 142 mm[Hg] [facility] blood pressure diastolic 2023-12-10 15:00:00 98 mm[Hg] [facility] height 2023-11-03 16:20:00 66 [in_i] Commo n [facility] weight 2023-11-03 16:20:00 198.0 [lb_av] Co [facility] temperature 2023-11-03 16:20:00 97.8 [degF] Com [facility] bmi 2023-11-03 16:20:00 31.95 kg/m2 Comm on [facility] oximetry 2023-11-03 16:20:00 95 % Commo n [facility] blood pressure systolic 2023-11-03 16:20:00 150 mm[Hg] [facility] blood pressure diastolic 2023-11-03 16:20:00 76 mm[Hg] [facility] height 2023-10-17 15:40:00 66 [in_i] Commo n [facility] weight 2023-10-17 15:40:00 198.4 [lb_av] [facility] temperature 2023-10-17 15:40:00 98.3 [degF] Com [facility] bmi 2023-10-17 15:40:00 32.02 kg/m2 Comm on [facility] oximetry 2023-10-17 15:40:00 96 % Commo n [facility] respiratory rate 2023-10-17 15:40:00 18 /min [facility] blood pressure systolic 2023-10-17 15:40:00 148 mm[Hg] [facility] blood pressure diastolic 2023-10-17 15:40:00 90 mm[Hg] [facility] height 2023-09-16 09:00:00 66 [in_i] Commo n [facility] weight 2023-09-16 09:00:00 197 [lb_av] Comm on [facility] temperature 2023-09-16 09:00:00 98.1 [degF] Com [facility] bmi 2023-09-16 09:00:00 31.79 kg/m2 Comm on [facility] oximetry 2023-09-16 09:00:00 96 % Commo n [facility] respiratory rate 2023-09-16 09:00:00 17 /min [facility] blood pressure systolic 2023-09-16 09:00:00 160 mm[Hg] [facility] blood pressure diastolic 2023-09-16 09:00:00 90 mm[Hg] [facility] height 2023-07-08 15:20:00 66 [in_i] Commo n [facility] weight 2023-07-08 15:20:00 197.6 [lb_av] [facility] temperature 2023-07-08 15:20:00 97.2 [degF] Com [facility] bmi 2023-07-08 15:20:00 31.89 kg/m2 Comm on [facility] oximetry 2023-07-08 15:20:00 98 % Commo n [facility] respiratory rate 2023-07-08 15:20:00 16 /min [facility] blood pressure systolic 2023-07-08 15:20:00 138 mm[Hg] [facility] blood pressure diastolic 2023-07-08 15:20:00 76 mm[Hg] [facility] height 2023-05-15 08:00:00 66 [in_i] Commo n [facility] weight 2023-05-15 08:00:00 195 [lb_av] Comm on [facility] temperature 2023-05-15 08:00:00 97.3 [degF] Com [facility] bmi 2023-05-15 08:00:00 31.47 kg/m2 Comm on [facility] oximetry 2023-05-15 08:00:00 92 % Commo n [facility] respiratory rate 2023-05-15 08:00:00 16 /min [facility] blood pressure systolic 2023-05-15 08:00:00 132 mm[Hg] Common [facility] blood pressure diastolic 2023-05-15 08:00:00 70 mm[Hg] [facility] height 2023-02-12 16:00:00 66 [in_i] Commo n [facility] weight 2023-02-12 16:00:00 195.2 [lb_av] [facility] temperature 2023-02-12 16:00:00 98.0 [degF] Com mon [facility] bmi 2023-02-12 16:00:00 31.5 kg/m2 [facility] oximetry 2023-02-12 16:00:00 95 % [facility] respiratory rate 2023-02-12 16:00:00 17 /min [facility] blood pressure systolic 2023-02-12 16:00:00 136 mm[Hg] [facility] blood pressure diastolic 2023-02-12 16:00:00 79 mm[Hg] [facility] Systolic blood pressure 2023-01-28 18:22:00 157 mm[Hg] [facility] Diastolic blood pressure 2023-01-28 18:22:00 96 mm[Hg] [facility] Heart rate 2023-01-28 18:22:00 78 /min [facility] Body temperature 2023-01-28 18:22:00 37.17 Shameka [facility] Respiratory rate 2023-01-28 18:22:00 18 /min [facility] Body weight 2023-01-28 18:22:00 83.915 kg [facility] BMI 2023-01-28 18:22:00 29.86 kg/m2 [facility] Oxygen saturation in Arterial blood by Pulse oximetry 2023-01-28 18:22:00 95 /min [facility] height 2023-01-27 08:30:00 66 [facility]in[facility]:30:00 200 [lb_av] Comm on [facility] temperature 2023-01-27 08:30:00 97.8 [degF] Com mon [facility] bmi 2023-01-27 08:30:00 32.28 kg/m2 Comm on [facility] blood pressure systolic 2023-01-27 08:30:00 132 mm[Hg] [facility] blood pressure diastolic 2023-01-27 08:30:00 80 mm[Hg] [facility] height 2022-12-11 10:30:00 66 [in_i] Commo n [facility] weight 2022-12-11 10:30:00 198.5 [lb_av] [facility] temperature 2022-12-11 10:30:00 97.2 [degF] Com mon [facility] bmi 2022-12-11 10:30:00 32.04 kg/m2 Comm on [facility] blood pressure systolic 2022-12-11 10:30:00 138 mm[Hg] [facility] blood pressure diastolic 2022-12-11 10:30:00 84 mm[Hg] [facility] height 2022-11-14 14:50:00 66 [in_i] Commo n [facility] weight 2022-11-14 14:50:00 200 [lb_av] Comm on [facility] temperature 2022-11-14 14:50:00 98.1 [degF] Com mon [facility] bmi 2022-11-14 14:50:00 32.28 kg/m2 Comm on [facility] oximetry 2022-11-14 14:50:00 98 % Commo n [facility] respiratory rate 2022-11-14 14:50:00 16 /min [facility] blood pressure systolic 2022-11-14 14:50:00 138 mm[Hg] [facility] blood pressure diastolic 2022-11-14 14:50:00 78 mm[Hg] [facility] height 2022-11-14 15:00:00 66 [in_i] Commo n [facility] weight 2022-11-14 15:00:00 200 [lb_av] Comm on [facility] temperature 2022-11-14 15:00:00 98.1 [degF] Com mon [facility] bmi 2022-11-14 15:00:00 32.28 kg/m2 Comm on [facility] oximetry 2022-11-14 15:00:00 98 % Commo n [facility] respiratory rate 2022-11-14 15:00:00 16 /min [facility] blood pressure systolic 2022-11-14 15:00:00 138 mm[Hg] [facility] blood pressure diastolic 2022-11-14 15:00:00 78 mm[Hg] Common [facility] height 2022-11-14 09:30:00 66 [in_i] Commo n [facility] weight 2022-11-14 09:30:00 200 [lb_av] Comm on [facility] temperature 2022-11-14 09:30:00 97.9 [degF] Com mon [facility] bmi 2022-11-14 09:30:00 32.28 kg/m2 Comm on [facility] blood pressure systolic 2022-11-14 09:30:00 132 mm[Hg] [facility] blood pressure diastolic 2022-11-14 09:30:00 80 mm[Hg] [facility] Systolic blood pressure 2022-10-20 12:25:00 125 mm[Hg] [facility] acute hospital Diastolic blood pressure 2022-10-20 12:25:00 76 mm[Hg] [facility] acute hospital Heart rate 2022-10-20 12:25:00 52 /min [facility] Respiratory rate 2022-10-20 12:25:00 14 /min [facility] Oxygen saturation in Arterial blood by Pulse oximetry 2022-10-20 12:25:00 93 /min [facility] Body temperature 2022-10-20 10:46:00 37.39 Shameka [facility] Body height 2022-10-20 10:46:00 167.6 cm [facility] Body weight 2022-10-20 10:46:00 85.7 kg [facility] BMI 2022-10-20 10:46:00 30.49 kg/m2 [facility] Systolic blood pressure 2022-08-30 20:50:00 92 mm[Hg] [facility] acute hospital Diastolic blood pressure 2022-08-30 20:50:00 64 mm[Hg] [facility] acute hospital Heart rate 2022-08-30 20:50:00 53 /min [facility] Respiratory rate 2022-08-30 20:50:00 20 /min [facility] Oxygen saturation in Arterial blood by Pulse oximetry 2022-08-30 20:50:00 94 /min [facility] Body temperature 2022-08-30 13:47:00 35.67 Shameka [facility] Body height 2022-08-30 13:47:00 175.3 cm [facility] Body weight 2022-08-30 13:47:00 92.987 kg [facility] BMI 2022-08-30 13:47:00 30.27 kg/m2 [facility] height 2022-07-31 14:40:00 66 [in_i] Commo n [facility] weight 2022-07-31 14:40:00 201.0 [lb_av] Co mmon [facility] temperature 2022-07-31 14:40:00 98.2 [degF] Com mon [facility] bmi 2022-07-31 14:40:00 32.44 kg/m2 Comm on [facility] oximetry 2022-07-31 14:40:00 97 % Commo n [facility] respiratory rate 2022-07-31 14:40:00 17 /min [facility] blood pressure systolic 2022-07-31 14:40:00 135 mm[Hg] Common [facility] blood pressure diastolic 2022-07-31 14:40:00 72 mm[Hg] [facility] Systolic blood pressure 2022-05-24 20:23:00 112 mm[Hg] [facility] acute hospital Diastolic blood pressure 2022-05-24 20:23:00 65 mm[Hg] [facility] acute hospital Heart rate 2022-05-24 20:23:00 68 /min [facility] Body temperature 2022-05-24 20:23:00 35.83 Shameka [facility] Respiratory rate 2022-05-24 20:23:00 18 /min [facility] Oxygen saturation in Arterial blood by Pulse oximetry 2022-05-24 20:23:00 96 /min [facility] Body height 2022-05-23 19:38:00 175.3 cm [facility] Body weight 2022-05-23 19:38:00 92.987 kg [facility] BMI 2022-05-23 19:38:00 30.27 kg/m2 [facility] height 2022-04-18 10:00:00 66 [in_i] Commo n [facility] weight 2022-04-18 10:00:00 209.0 [lb_av] Co mmon [facility] temperature 2022-04-18 10:00:00 98.1 [degF] Com mon [facility] bmi 2022-04-18 10:00:00 33.73 kg/m2 Comm on [facility] oximetry 2022-04-18 10:00:00 95 % Commo n [facility] respiratory rate 2022-04-18 10:00:00 16 /min [facility] blood pressure systolic 2022-04-18 10:00:00 132 mm[Hg] Common [facility] blood pressure diastolic 2022-04-18 10:00:00 73 mm[Hg] [facility] height 2022-04-04 11:10:00 66 [in_i] Commo n [facility] weight 2022-04-04 11:10:00 197 [lb_av] Comm on [facility] temperature 2022-04-04 11:10:00 98 [degF] Comm on [facility] bmi 2022-04-04 11:10:00 31.79 kg/m2 Comm on [facility] blood pressure systolic 2022-04-04 11:10:00 125 mm[Hg] [facility] blood pressure diastolic 2022-04-04 11:10:00 65 mm[Hg] Common [facility] height 2022-02-14 08:20:00 66 [in_i] Commo n [facility] weight 2022-02-14 08:20:00 197.3 [lb_av] Co mmon [facility] temperature 2022-02-14 08:20:00 97.3 [degF] Com mon [facility] bmi 2022-02-14 08:20:00 31.84 kg/m2 Comm on [facility] oximetry 2022-02-14 08:20:00 96 % Commo n [facility] respiratory rate 2022-02-14 08:20:00 16 /min [facility] blood pressure systolic 2022-02-14 08:20:00 114 mm[Hg] [facility] blood pressure diastolic 2022-02-14 08:20:00 62 mm[Hg] Common [facility] height 2022-01-17 08:10:00 66 [in_i] Commo n [facility] weight 2022-01-17 08:10:00 195.6 [lb_av] Co [facility] temperature 2022-01-17 08:10:00 98.3 [degF] Com [facility] bmi 2022-01-17 08:10:00 31.57 kg/m2 Comm on [facility] oximetry 2022-01-17 08:10:00 98 % Commo n [facility] respiratory rate 2022-01-17 08:10:00 17 /min [facility] blood pressure systolic 2022-01-17 08:10:00 133 mm[Hg] [facility] blood pressure diastolic 2022-01-17 08:10:00 72 mm[Hg] [facility] height 2021-10-16 08:20:00 66 [in_i] Commo n [facility] weight 2021-10-16 08:20:00 194.9 [lb_av] Co [facility] temperature 2021-10-16 08:20:00 98.2 [degF] Com [facility] bmi 2021-10-16 08:20:00 31.45 kg/m2 Comm on [facility] oximetry 2021-10-16 08:20:00 97 % Commo n [facility] respiratory rate 2021-10-16 08:20:00 17 /min [facility] height 2021-10-16 08:20:00 66 [in_i] Commo n [facility] weight 2021-10-16 08:20:00 194.9 [lb_av] Co [facility] temperature 2021-10-16 08:20:00 98.2 [degF] Com [facility] bmi 2021-10-16 08:20:00 31.45 kg/m2 Comm on [facility] oximetry 2021-10-16 08:20:00 97 % Commo n [facility] respiratory rate 2021-10-16 08:20:00 17 /min Common [facility] blood pressure systolic 2021-10-16 08:20:00 132 mm[Hg] Common [facility] t [facility] blood pressure diastolic 2021-10-16 08:20:00 77 mm[Hg] [facility] height 2021-10-08 13:10:00 66 [in_i] Commo n [facility] weight 2021-10-08 13:10:00 195.3 [lb_av] Co mmon [facility] temperature 2021-10-08 13:10:00 98.1 [degF] Com [facility] bmi 2021-10-08 13:10:00 31.52 kg/m2 Comm on [facility] oximetry 2021-10-08 13:10:00 97 % Commo n [facility] respiratory rate 2021-10-08 13:10:00 17 /min [facility] blood pressure systolic 2021-10-08 13:10:00 132 mm[Hg] [facility] blood pressure diastolic 2021-10-08 13:10:00 73 mm[Hg] [facility] height 2021-07-11 09:10:00 66 [in_i] Commo n [facility] weight 2021-07-11 09:10:00 185.1 [lb_av] Co mmon [facility] temperature 2021-07-11 09:10:00 97.6 [degF] Com [facility] bmi 2021-07-11 09:10:00 29.87 kg/m2 Comm on [facility] oximetry 2021-07-11 09:10:00 96 % Commo n [facility] respiratory rate 2021-07-11 09:10:00 18 /min [facility] blood pressure systolic 2021-07-11 09:10:00 138 mm[Hg] Common [facility] blood pressure diastolic 2021-07-11 09:10:00 76 mm[Hg] Common [facility] Procedures Procedure Date / Time Performed Performing Clinician Source CONSENT/REFUSAL FOR DIAGNOSIS AND TREATMENT 2023-01-28 18:20:41 Doctor Unassigned, [place] [facility] URINALYSIS 2022-10-20 11:29:00 Singer Christen [facility] URINE DRUG (IMMUNOASSAY) - COMPREHENSIVE DRUG SCREEN W/O REFLEX 2022-10-20 11:29:00 Singer Christen [facility] XR CHEST 1 VW 2022-10-20 11:07:00 Singer [facility] COMP. METABOLIC PANEL (54697) 2022-10-20 11:04:00 Singer [facility] SALICYLATE 2022-10-20 11:04:00 Singer [facility] ETHANOL 2022-10-20 11:04:00 Singer [facility] CBC WITH DIFF 2022-10-20 11:04:00 Singer [facility] BASIC METABOLIC PANEL (NA, K, CL, CO2, GLUCOSE, BUN, CREATININE, CA) 2022-08-30 17:22:00 Gertrude Chinchilla [facility] URINALYSIS 2022-08-30 14:21:00 [facility] (IMMUNOASSAY) - COMPREHENSIVE DRUG SCREEN W/O REFLEX 2022-08-30 14:21:00 Gertrude Chinchilla [facility] XR CHEST 1 VW 2022-08-30 14:04:16 [facility] 2022-08-30 14:03:00 [facility] TROPONIN I 2022-08-30 14:03:00 [facility] COMP. METABOLIC PANEL ([id number]) 2022-08-30 14:03:00 Gertrude Chinchilla [facility] ETHANOL 2022-08-30 14:03:00 [facility] WITH DIFF 2022-08-30 14:03:00 Gertrude Chinchilla U [facility] XR CHEST 1 VW 2022-05-24 11:38:14 Callie Cuellar [facility] MAGNESIUM 2022-05-24 08:56:00 Callie Cuellar [facility] TROPONIN I 2022-05-24 08:56:00 Callie Cuellar [facility] BASIC METABOLIC PANEL (NA, K, CL, CO2, GLUCOSE, BUN, CREATININE, CA) 2022-05-24 08:56:00 Callie Cuellar [facility] CBC WITH DIFF 2022-05-24 08:56:00 Callie Cuellar [facility] TROPONIN I 2022-05-24 03:51:00 Callie Cuellar [facility] XR KUB 2022-05-23 22:25:58 Callie Cuellar [facility] URINALYSIS 2022-05-23 22:15:00 Gertrude Chinchilla [facility] CREATININE, URINE RANDOM 2022-05-23 22:15:00 Vani Cuellar [facility] SODIUM, URINE RANDOM 2022-05-23 22:15:00 Huang [facility] URINE DRUG (IMMUNOASSAY) - COMPREHENSIVE DRUG SCREEN W/O REFLEX 2022-05-23 22:15:00 Gertrude Chinchilla [facility] TRANSTHORACIC ECHO (TTE) COMPLETE 2022-05-23 20:33:00 Callie Cuellar [facility] COVID-19 (ID NOW RAPID TESTING) 2022-05-23 16:39:00 Gertrude Chinchilla [facility] LAB ONLY COVID INTERPRETATION 2022-05-23 16:39:00 Gertrude Chinchilla [facility] TROPONIN I 2022-05-23 13:42:00 Gertrude Chinchilla Un [facility] COMP. METABOLIC PANEL ([id number]) 2022-05-23 13:42:00 Gertrude Chinchilla [facility] CBC WITH DIFF 2022-05-23 13:42:00 Gertrude Chinchilla [facility] HB ECG ROUTINE & RHYTHM STRIP 2022-05-23 13:12:28 Gertrude Chinchilla [facility] EKG-12 LEAD 2022-05-23 12:44:00 Gertrude Chinchilla [facility] AUTHORIZATION FOR RELEASE OF PHI 2021-11-12 06:01:00 Doctor Unassigned, [place] [facility] Encounters Start Date/Time End Date/Time Encounter Type Admission Type Attending [facility] Care Department Encounter ID Source 2024-02-19 09:31:00 Outpatient Rosana Red STLMLC STLMLC [id number] [facility] 2024-02-02 14:25:00 Outpatient Rosana Red STLMLC STLMLC [id number] [facility] 2024-01-20 08:45:00 Outpatient Rosana Red STLMLC STLMLC [id number] [facility] 2024-01-16 10:32:00 Outpatient Rosana Red STLMLC STLMLC [id number] [facility] 2024-01-08 13:33:00 Outpatient Rosana Red STLMLC STLMLC [id number] [facility] 2024-01-02 16:07:00 Outpatient Rosana Red STLMLC STLMLC [id number] [facility] 2023-12-11 12:59:00 Outpatient Rosana Red STLMLC STLMLC [id number] [facility] 2023-12-10 09:50:00 Outpatient Rosana Red STLMLC STLMLC [id number] [facility] 2023-12-09 09:09:00 Outpatient Rosana Red STLMLC STLMLC [id number] [facility] 2023-10-28 10:03:00 Outpatient Rosana Red STLMLC STLMLC [id number] [facility] 2023-09-25 09:50:00 Outpatient Rosana Red STLMLC STLMLC [id number] [facility] 2023-09-15 10:25:00 Outpatient Rosana Red STLMLC STLMLC [id number] [facility] 2023-09-12 08:30:00 Outpatient Rosana Red STLMLC STLMLC [id number] [facility] 2023-08-15 09:11:00 Outpatient Rosana Red STLMLC STLMLC [id number] [facility] 2023-08-14 16:35:00 Outpatient Ross, Mahad STLMLC STLMLC [id number] [facility] 2023-07-04 14:02:00 Outpatient Ross, Mahad STLMLC STLMLC [id number] [facility] 2023-06-05 14:42:00 Outpatient Ross, Mahad STLMLC STLMLC [id number] [facility] 2023-05-14 15:43:00 Outpatient Ross, Mahad STLMLC STLMLC [id number] [facility] 2023-05-09 14:32:00 Outpatient Ross, Mahad STLMLC STLMLC [id number] [facility] 2023-02-11 08:03:01 Outpatient Ross, Mahad STLMLC STLMLC [id number] [facility] 2022-12-02 14:44:00 Outpatient Ross, Mahad STLMLC STLMLC [id number] [facility] 2022-11-14 12:02:00 Outpatient Ross, Mahad STLMLC STLMLC [id number] [facility] 2022-11-12 10:39:01 Outpatient Ross, Mahad STLMLC STLMLC [id number] [facility] 2022-10-07 09:37:01 Outpatient Ross, Mahad STLMLC STLMLC [id number] [facility] 2022-10-04 16:32:01 Outpatient Ross, Mahad STLMLC STLMLC [id number] [facility] 2022-08-16 15:23:00 Outpatient Ross, Mahad STLMLC STLMLC [id number] [facility] 2022-07-31 14:32:00 Outpatient Ross, Mahad STLMLC STLMLC [id number] [facility] 2022-07-29 16:01:01 Outpatient Ross, Mahad STLMLC STLMLC [id number] [facility] 2022-07-19 16:30:01 Outpatient Ross, Mahad STLMLC STLMLC [id number] [facility] 2022-07-16 10:11:00 Outpatient Ross, Mahad STLMLC STLMLC [id number] [facility] 2022-06-25 14:39:00 Outpatient Ross, Mahad STLMLC STLMLC [id number] [facility] 2022-05-16 12:11:01 Outpatient Ross, Mahad STLMLC STLMLC [id number] [facility] 2021-10-24 13:24:10 Outpatient Ross, Mahad STLMLC STLMLC [id number] [facility] 2021-10-24 13:06:32 Outpatient Ross, Mahad STLMLC STLMLC [id number] [facility] 2021-10-24 12:40:59 Outpatient Ross, Mahad STLMLC STLMLC [id number] [facility] 2021-10-24 12:30:18 Outpatient Ross, Mahad STLMLC STLMLC [id number] [facility] 2021-10-24 12:29:04 Outpatient Ross, Mahad STLMLC STLC [id number] [facility] 2021-10-24 11:52:46 Outpatient Ross, Mahad STLC STLMLC [id number] [facility] 2021-10-24 11:44:17 Outpatient Ross, Mahad STLC STLMLC [id number] [facility] 2021-10-24 11:37:11 Outpatient Ross, Mahad STLC STLC [id number] [facility] 2021-07-28 05:50:12 Emergency [facility] [id number] [facility] 2024-02-26 00:00:00 2024-02-26 00:00:00 (HOSP F/U) Hospital Follow Up STLMLC STLMLC [id number] [facility] 2024-02-20 00:00:00 2024-02-20 00:00:00 (TEL) STLMLC STLMLC [id number] [facility] 2024-02-10 00:00:00 2024-02-10 00:00:00 (TEL) STLMLC STLMLC [id number] [facility] 2024-02-09 00:00:00 2024-02-09 00:00:00 (TEL) STLMLC STLMLC [id number] [facility] 2024-02-06 00:00:00 2024-02-06 00:00:00 (TEL) STLMLC STLMLC [id number] [facility] 2024-02-04 00:00:00 2024-02-04 00:00:00 (TEL) STLMLC STLMLC [id number] [facility] 2024-02-02 00:00:00 2024-02-02 00:00:00 (TEL) STLMLC STLMLC [id number] [facility] 2024-01-29 00:00:00 2024-01-29 00:00:00 (F/U) Follow Up Visit STLMLC STLMLC [id number] [facility] 2024-01-28 00:00:00 2024-01-28 00:00:00 (TEL) STLMLC STLMLC [id number] [facility] 2024-01-28 00:00:00 2024-01-28 00:00:00 (TEL) STLMLC STLMLC [id number] [facility] 2024-01-28 00:00:00 2024-01-28 00:00:00 (TEL) STLMLC STLMLC [id number] [facility] 2024-01-27 00:00:00 2024-01-27 00:00:00 (HOSP F/U) Hospital Follow Up STLMLC STLMLC [id number] [facility] 2024-01-25 00:00:00 2024-01-25 00:00:00 (TEL) STLMLC STLMLC [id number] [facility] 2024-01-23 00:00:00 2024-01-23 00:00:00 (TEL) STLMLC STLMLC [id number] [facility] 2024-01-20 00:00:00 2024-01-20 00:00:00 (TEL) STLMLC STLMLC [id number] [facility] 2024-01-19 00:00:00 2024-01-19 00:00:00 (TEL) STLMLC STLMLC [id number] [facility] 2024-01-16 00:00:00 2024-01-16 00:00:00 (TEL) STLMLC STLMLC [id number] [facility] 2024-01-15 00:00:00 2024-01-15 00:00:00 OFFICE VISIT ESTAB PT LEVEL 4 STLMLC STLMLC [id number] [facility] 2024-01-15 00:00:00 2024-01-15 00:00:00 (TEL) STLMLC STLMLC [id number] [facility] 2024-01-15 00:00:00 2024-01-15 00:00:00 (TEL) STLMLC STLMLC [id number] [facility] 2024-01-14 00:00:00 2024-01-14 00:00:00 (TEL) STLMLC STLMLC [id number] [facility] 2024-01-02 00:00:00 2024-01-02 00:00:00 (TEL) STLMLC STLMLC [id number] [facility] 2023-12-30 00:00:00 2023-12-30 00:00:00 (TEL) STLMLC STLMLC [id number] [facility] 2023-12-17 00:00:00 2023-12-17 00:00:00 (TEL) STLMLC STLMLC [id number] [facility] 2023-12-12 00:00:00 2023-12-12 00:00:00 (TEL) STLMLC STLMLC [id number] [facility] 2023-12-11 00:00:00 2023-12-11 00:00:00 (TEL) STLMLC STLMLC [id number] [facility] 2023-12-10 00:00:00 2023-12-10 00:00:00 OFFICE VISIT ESTAB PT LEVEL 4 STLMLC STLMLC [id number] [facility] 2023-12-10 00:00:00 2023-12-10 00:00:00 SUB ANNUAL [facility] WELLNESS VISIT STLMLC STLMLC [id number] [facility] 2023-12-09 00:00:00 2023-12-09 00:00:00 (TEL) STLMLC STLMLC [id number] [facility] 2023-12-02 00:00:00 2023-12-02 00:00:00 (TEL) STLMLC STLMLC [id number] [facility] 2023-11-27 00:00:00 2023-11-27 00:00:00 (TEL) STLMLC STLMLC [id number] [facility] 2023-11-27 00:00:00 2023-11-27 00:00:00 (TEL) STLMLC STLMLC [id number] [facility] 2023-11-18 00:00:00 2023-11-18 00:00:00 (TEL) STLMLC STLMLC [id number] [facility] 2023-11-03 00:00:00 2023-11-03 00:00:00 (TEL) STLMLC STLMLC [id number] [facility] 2023-11-03 00:00:00 2023-11-03 00:00:00 OFFICE VISIT ESTAB PT LEVEL 4 STLMLC STLMLC [id number] [facility] 2023-10-17 00:00:00 2023-10-17 00:00:00 OFFICE VISIT ESTAB PT LEVEL 4 STLMLC STLMLC [id number] [facility] 2023-10-15 00:00:00 2023-10-15 00:00:00 (TEL) STLMLC STLMLC [id number] [facility] 2023-09-24 00:00:00 2023-09-24 00:00:00 (TEL) STLMLC STLMLC [id number] [facility] 2023-09-24 00:00:00 2023-09-24 00:00:00 (TEL) STLMLC STLMLC [id number] [facility] 2023-09-16 00:00:00 2023-09-16 00:00:00 OFFICE VISIT NEW PT LEVEL 4 STLMLC STLMLC [id number] [facility] 2023-09-15 20:30:00 2023-09-15 21:00:00 Care Candelaria Adame [id number] [facility] 2023-08-14 00:00:00 2023-08-14 00:00:00 (TEL) STLMLC STLMLC [id number] [facility] 2023-07-08 00:00:00 2023-07-08 00:00:00 OFFICE VISIT ESTAB PT LEVEL 4 STLMLC STLMLC [id number] [facility] 2023-07-03 00:00:00 2023-07-03 00:00:00 (TEL) STLMLC STLMLC [id number] [facility] 2023-06-30 00:00:00 2023-06-30 00:00:00 (TEL) STLMLC STLMLC [id number] [facility] 2023-06-24 00:00:00 2023-06-24 00:00:00 (TEL) STLMLC STLMLC [id number] [facility] 2023-06-11 00:00:00 2023-06-11 00:00:00 (TEL) STLMLC STLMLC [id number] [facility] 2023-05-29 00:00:00 2023-05-29 00:00:00 (TEL) STLMLC STLMLC [id number] [facility] 2023-05-20 00:00:00 2023-05-20 00:00:00 (TEL) STLMLC STLMLC [id number] [facility] 2023-05-15 00:00:00 2023-05-15 00:00:00 OFFICE VISIT ESTAB PT LEVEL 4 STLMLC STLMLC [id number] [facility] 2023-05-12 15:45:00 2023-05-12 16:45:00 [facility] Initial Visit Lana Chaparro [id number]. [id number] 7US [facility] 2023-04-25 00:00:00 2023-04-25 00:00:00 Outpatient [place] _B DMG [facility] [id number] [facility] 2023-04-25 00:00:00 2023-04-25 00:00:00 Outpatient [place] _B DMG [facility] [id number] [facility] 2023-03-05 00:00:00 2023-03-05 00:00:00 (TEL) STLMLC STLMLC [id number] [facility] 2023-02-20 16:29:56 2023-02-20 16:29:56 Outpatient SFA SFA [id number] [facility] 2023-02-12 00:00:00 2023-02-12 00:00:00 OFFICE VISIT ESTAB PT LEVEL 4 STLMLC STLMLC [id number] [facility] 2023-02-12 00:00:00 2023-02-12 00:00:00 (TEL) STLMLC STLMLC [id number] [facility] 2023-01-31 00:00:00 2023-01-31 00:00:00 (TEL) STLMLC STLMLC [id number] [facility] 2023-01-28 13:23:00 2023-01-28 14:59:00 Emergency X ZANE LIU TIMOTHY KSELMER ERT [id number] [facility] 2023-01-28 13:23:00 2023-01-28 14:59:00 Emergency Zane Liu [facility] [id number] [facility] 2023-01-27 00:00:00 2023-01-27 00:00:00 OFFICE VISIT ESTAB PT LEVEL 4 STLMLC STLMLC [id number] [facility] 2023-01-22 11:17:34 2023-01-22 11:17:34 Outpatient SFA SFA [id number] [facility] 2023-01-10 00:00:00 2023-01-10 00:00:00 (TEL) STLMLC STLMLC [id number] [facility] 2023-01-01 00:00:00 2023-01-01 00:00:00 (TEL) STLMLC STLMLC [id number] [facility] 2022-12-24 08:30:06 2022-12-24 08:30:06 Outpatient SFA SFA [id number] [facility] 2022-12-11 00:00:00 2022-12-11 00:00:00 OFFICE VISIT ESTAB PT LEVEL 4 STLMLC STLMLC [id number] [facility] 2022-12-02 00:00:00 2022-12-02 00:00:00 (TEL) STLMLC STLMLC [id number] [facility] 2022-11-27 08:05:24 2022-11-27 08:05:24 Outpatient SFA SFA [id number] Tim [facility] 2022-11-18 00:00:00 2022-11-18 00:00:00 (TEL) STLMLC STLMLC [id number] [facility] 2022-11-14 00:00:00 2022-11-14 00:00:00 OFFICE VISIT ESTAB PT LEVEL 4 STLMLC STLMLC [id number] [facility] 2022-11-14 00:00:00 2022-11-14 00:00:00 SUB ANNUAL [facility] WELLNESS VISIT STLMLC STLMLC [id number] [facility] 2022-11-14 00:00:00 2022-11-14 00:00:00 OFFICE VISIT ESTAB PT LEVEL 4 STLMLC STLMLC [id number] [facility] 2022-11-05 00:00:00 2022-11-05 00:00:00 (TEL) STLMLC STLMLC [id number] [facility] 2022-10-30 17:27:51 2022-10-30 17:27:51 Outpatient [facility] [id number] Tim Lambert 2022-10-25 16:30:00 2022-10-25 17:30:00 MELONIE Garcia 2.16.840. [id number] 2.16.840.1. [id number] CLACXKURRY SW5 [facility] 2022-10-24 00:00:00 2022-10-24 00:00:00 (TEL) STLMLC STLMLC [id number] [facility] 2022-10-22 16:00:00 2022-10-22 16:30:00 Care Candelaria Stroud 2.16.840. [id number] 2.16.840.1. [id number] 2022-10-20 04:41:00 2022-10-20 06:40:00 Emergency X CHRISTEN [facility] ERT [id number] [facility] 2022-10-20 04:41:00 2022-10-20 06:40:00 Emergency Singer Christen [facility] 1.2.840.114 [id number] [id number] [id number] [facility] 2022-10-16 00:00:00 2022-10-16 00:00:00 (TEL) STLMLC STLMLC [id number] [facility] 2022-10-03 15:56:50 2022-10-03 15:56:50 Outpatient [facility] [id number] Tim [facility] 2022-10-03 00:00:00 2022-10-03 00:00:00 (TEL) STLMLC STLMLC [id number] [facility] 2022-09-04 08:12:48 2022-09-04 08:12:48 Outpatient [facility] [id number] Tim Lambert 2022-09-03 14:40:55 2022-09-03 14:40:55 Outpatient [facility] [id number] Tim [facility] 2022-08-30 07:45:00 2022-08-30 15:39:00 Emergency X GERTRUDE CHINCHILLA [facility] ERT [id number] [facility] 2022-08-30 07:45:00 2022-08-30 15:39:00 Emergency Gertrude Chinchilla [facility] [id number] [id number] [id number] [facility] 2022-08-12 00:00:00 2022-08-12 00:00:00 Outpatient [place] _[facility] DM[facility] [id number] [facility] 2022-08-12 00:00:00 2022-08-12 00:00:00 Outpatient [place] _B DM[facility] [id number] [facility] 2022-08-12 00:00:00 2022-08-12 00:00:00 Out[place] _[place] [id number] [facility] 2022-08-12 00:00:00 2022-08-12 00:00:00 Outpatient [place] _B DMG [facility] [id number] [facility] 2022-07-31 00:00:00 2022-07-31 00:00:00 OFFICE VISIT ESTAB PT LEVEL 4 STLMLC STLMLC [id number] [facility] 2022-06-21 00:00:00 2022-06-21 00:00:00 Outpatient Cobb_T DMG DMG [id number] [facility] 2022-06-20 00:00:00 2022-06-20 00:00:00 [place] [id number] [facility] 2022-06-06 00:00:00 2022-06-06 00:00:00 (TEL) STLMLC STLMLC [id number] [facility] 2022-05-27 00:00:00 2022-05-27 00:00:00 Transition of Care Simón Rollins KEVEND[facility] 1.2.840.114 350.1.13.10 [id number] [id number] [facility] 2022-05-23 07:39:00 2022-05-24 17:43:00 Outpatient CALLIE SHARIF [facility] [id number] [facility] 2022-05-23 07:39:00 2022-05-24 17:43:00 Emergency Gertrude Chinchilla David [facility] [id number] [id number] [id number] [id number] [facility] 2022-05-09 00:00:00 2022-05-09 00:00:00 Outpatient Cobb_T [facility] [id number] [facility] 2022-04-18 00:00:00 2022-04-18 00:00:00 OFFICE VISIT ESTAB PT LEVEL 4 STLMLC STLMLC [id number] [facility] 2022-04-18 00:00:00 2022-04-18 00:00:00 (TEL) STLMLC STLMLC [id number] [facility] 2022-04-12 03:30:00 2022-04-12 03:30:00 Outpatient Deshazo_T [facility] [id number] [facility] 2022-04-10 04:58:00 2022-04-10 04:58:00 [place] [id number] [facility] 2022-04-04 00:00:00 2022-04-04 00:00:00 (TEL) STLMLC STLMLC [id number] [facility] 2022-04-04 00:00:00 2022-04-04 00:00:00 (EST. VIDEO) EST VIRTUAL VIDEO VISIT STLMLC STLMLC [id number] [facility] 2022-03-26 00:00:00 2022-03-26 00:00:00 (TEL) STLMLC STLMLC [id number] [facility] 2022-02-14 00:00:00 2022-02-14 00:00:00 OFFICE VISIT ESTAB PT LEVEL 5 STLMLC STLMLC [id number] [facility] 2022-01-22 00:00:00 2022-01-22 00:00:00 (TEL) STLMLC STLMLC [id number] [facility] 2022-01-17 00:00:00 2022-01-17 00:00:00 OFFICE VISIT ESTAB PT LEVEL 4 STLMLC STLMLC [id number] [facility] 2021-11-12 00:00:00 2021-11-12 00:00:00 Orders Only Doctor Unassigned, [place] [facility] [id number] [id number] [facility] 2021-10-16 00:00:00 2021-10-16 00:00:00 SUB ANNUAL [facility] WELLNESS VISIT STLMLC STLMLC [id number] [facility] 2021-10-16 00:00:00 2021-10-16 00:00:00 OFFICE VISIT ESTAB PT LEVEL 4 STLMLC STLMLC [id number] [facility] 2021-10-09 14:20:00 2021-10-09 14:20:00 Outpatient NEELA FANG [facility] [id number] [facility] 2021-10-09 00:00:00 2021-10-09 00:00:00 (TEL) STLMLC STLMLC [id number] [facility] 2021-10-08 00:00:00 2021-10-08 00:00:00 (HOSP F/U) Hospital Follow Up STLMLC STLMLC [id number] [facility] 2021-10-05 00:00:00 2021-10-05 00:00:00 (TEL) STLMLC STLMLC [id number] [facility] 2021-10-02 00:00:00 2021-10-02 00:00:00 Transition of Care Simón Rollins 1.2.840.114 350.1.13.10 4.2.7.2.686 [id number] [facility] 2021-10-01 00:00:00 2021-10-01 00:00:00 (TEL) STLC STLC [id number] [facility] 2021-09-27 17:38:00 2021-09-30 15:22:00 Outpatient X VIKASH GRIMALDO [facility] [id number] [facility] 2021-09-27 17:38:00 2021-09-30 15:22:00 Outpatient VIKASH PEMBERTON [facility] [id number] [facility] 2021-09-27 17:38:00 2021-09-30 15:22:00 Emergency Silva zSymanski Jelani [facility] 1..840.114 350.1.13.10 4.2.7.2.686 [id number] [facility] 2021-09-19 01:00:00 2021-09-19 01:00:00 Outpatient OW_T DMG DMG [id number] [facility] 2021-09-05 14:30:00 2021-09-05 15:30:00 CAV Gretta Ruiz 2.16.840. [id number] [id number] NLDYAR6FLC [facility] 2021-08-10 10:31:00 2021-08-10 10:31:00 Outpatient OWENS_T DMG [facility] [id number] [facility] 2021-08-07 02:14:00 2021-08-07 02:14:00 Outpatient CURRY_S DMG [facility] [id number] [facility] 2021-07-17 00:00:00 2021-07-17 00:00:00 (TEL) STLMLC STLMLC [id number] [facility] 2021-07-11 00:00:00 2021-07-11 00:00:00 OFFICE VISIT ESTAB PT LEVEL 4 STLMLC STLMLC [id number] [facility] 2021-07-10 00:00:00 2021-07-10 00:00:00 (TEL) STLMLC STLMLC [id number] [facility] 2021-07-04 00:00:00 2021-07-04 00:00:00 (TEL) STLMLC STLMLC [id number] [facility] 2021-06-26 00:00:00 2021-06-26 00:00:00 (TEL) STLMLC STLMLC [id number] [facility] 2021-05-29 00:00:00 2021-05-29 00:00:00 Outpatient STLMLC STLMLC [id number] [facility] 2021-05-22 05:13:00 2021-05-22 05:13:00 Outpatient CURRY_S DMG [facility] [id number] [facility] 2021-05-22 00:00:00 2021-05-22 00:00:00 Outpatient STLMLC STLMLC [id number] [facility] 2021-05-04 00:00:00 2021-05-04 00:00:00 Outpatient STLMLC STLMLC [id number] [facility] 2021-04-30 00:00:00 2021-04-30 00:00:00 Outpatient STLMLC STLMLC [id number] [facility] 2021-04-30 00:00:00 2021-04-30 00:00:00 Outpatient STLC [facility] [id number] [facility] 2021-04-06 00:00:00 2021-04-06 00:00:00 Outpatient [facility] STLC [id number] [facility] 2021-01-29 06:02:00 2021-01-29 06:02:00 [facility] [id number] [facility] 2021-01-18 12:00:00 2021-01-18 12:00:00 [facility] [id number] [facility] 2020-08-14 14:12:00 2020-08-14 15:54:00 Emergency [facility] 1.2.840.114 350.1.13.10 4.2.7.2.686 [id number] 2020-08-14 14:12:00 2020-08-14 15:54:00 Emergency [facility] 1.2.840.114 350.1.13.10 4.2.7.2.686 [id number] [facility] Results Test Description Test Time Test Comments Results Result Co mments Source VITAMIN B 12 AND FOLIC [id number] 00:00:00* Test Item Value Reference Range Interpretation Comme nts FOLIC ACID (test code = 2284-8) >20.0 UG/L SEE BELOW UG/L VITAMIN B-12 (test code = 2132-9) 415 PG/ML See_Comment [Automated messa ge] The system which generated this result transmitted reference range: 200-950 PG/ML. The reference range was not used to interpret this result as normal/abnormal. CBC W/AUTO [id number] 00:00:00* Test Item Value Reference Range Interpretation Comme nts NUCLEATED RBCS (test code = 43818-7) 0.0 /100 WBC'S See_Comment [Automated [employer] ge] The system which generated this result transmitted reference range: 0.0 /100 WBC'S. The reference range was not used to interpret this result as normal/abnormal. ABSOLUTE EOSINOPHILS (test code = 68042-5) 0.42 K/UL See_Comment [Automated messa ge] The system which generated this result transmitted reference range: 0.00-0.50 K/UL. The reference range was not used to interpret this result as normal/abnormal. ABSOLUTE LYMPHOCYTES (test code = 69619-4) 2.14 K/UL See_Comment [Automated messa ge] The system which generated this result transmitted reference range: 1.00-4.00 K/UL. The reference range was not used to interpret this result as normal/abnormal. ABSOLUTE MONOCYTES (test code = 68347-7) 0.64 K/UL See_Comment [Automated messa ge] The system which generated this result transmitted reference range: 0.20-1.00 K/UL. The reference range was not used to interpret this result as normal/abnormal. ABSOLUTE NEUTROPHILS (test code = 64835-4) 7.23 K/UL See_Comment [Automated messa ge] The system which generated this result transmitted reference range: 1.50-7.50 K/UL. The reference range was not used to interpret this result as normal/abnormal. BASOPHILS (test code = 60366-3) 0.7 % EOSINOPHILS (test code = 75728-1) 4.0 % HEMATOCRIT (test code = 70212-8) 46.6 % See_Comment [Automated [employer] ge] The system which generated this result transmitted reference range: 40.0-51.0 %. The reference range was not used to interpret this result as normal/abnormal. HEMOGLOBIN (test code = 718-7) 15.8 G/DL See_Comment [Automated messa ge] The system which generated this result transmitted reference range: 13.5-17.0 G/DL. The reference range was not used to interpret this result as normal/abnormal. LYMPHOCYTES (test code = 87961-9) 20.3 % MCH (test code = 31691-0) 31.3 PG See_Comment [Automated [employer] ge] The system which generated this result transmitted reference range: 25.0-33.0 PG. The reference range was not used to interpret this result as normal/abnormal. MCHC (test code = 48256-4) 33.9 G/DL See_Comment [Automated messa ge] The system which generated this result transmitted reference range: 31.0-36.0 G/DL. The reference range was not used to interpret this result as normal/abnormal. MCV (test code = 15814-1) 92.5 fL See_Comment [Automated messa ge] The system which generated this result transmitted reference range: 80.0-99.0 fL. The reference range was not used to interpret this result as normal/abnormal. MONOCYTES (test code = 58204-7) 6.1 % NEUTROPHILS (test code = 77415-4) 68.5 % PLATELET COUNT (test code = 81232-0) 355 K/UL See_Comment [Automated messa ge] The system which generated this result transmitted reference range: 130-400 K/UL. The reference range was not used to interpret this result as normal/abnormal. RBC (test code = 96882-6) 5.04 M/UL See_Comment [Automated messa ge] The system which generated this result transmitted reference range: 4.50-6.10 M/UL. The reference range was not used to interpret this result as normal/abnormal. RDW (test code = 33090-0) 13.0 % See_Comment [Automated messa ge] The system which generated this result transmitted reference range: 11.5-15.0 %. The reference range was not used to interpret this result as normal/abnormal. WBC (test code = 22316-4) 10.5 K/UL See_Comment [Automated messa ge] The system which generated this result transmitted reference range: 3.5-11.0 K/UL. The reference range was not used to interpret this result as normal/abnormal. VITAMIN D, 25 [id number] 00:00:00* Test Item Value Reference Range Interpretation Comme [facility] VITAMIN D, 25 OH (test code = 1988-3) 40 NG/ML SEE BELOW NG/ML LIPID PANEL WITH REFLEX DIRECT [id number] 00:00:00* Test Item Value Reference Range Interpretation Comme nts CALC LDL CHOL (test code = 01429-5) 126 MG/DL See_Comment H [Automated messa ge] [...] normal/abnormal. RISK RATIO LDL/HDL (test code = 75499-3) 2.21 RATIO See_Comment [Automated message] The system [...] interpret this result as normal/abnormal. COMPREHENSIVE METABOLIC [id number] 00:00:00* Test Item Value Reference Range Interpretation [...] result as normal/abnormal. CALCIUM (test code = 50984-3) 9.5 MG/DL See_Comment [Automated messa ge] The [...] as normal/abnormal. CALC GLOBULIN (test code = 89269-0) 2.7 G/DL See_Comment [Automated messa ge] The [...] normal/abnormal. eGFR (2020 CKD-EPI) (test code = 40775-1) 79 ML/MIN/1.73 See_Comment [Automated messa ge] The [...] interpret this result as normal/abnormal. CBC WITH [id number] 11:42:32* Test Item Value Reference Range Interpretation [...] 33.7 g/dL 31.2-35.0 RDW-SD (test code = 93619-3) 45.5 fL 38.5-51.6 RDW-CV (test code = 788-0) 13.8 % 12.1-15.4 PLT (test code = 777-3) See_Comment [Automated messa ge] The system which generated this result transmitted reference range: 150 - 328 10*3/?L. The reference range was not used to interpret this result as normal/abnormal. MPV (test code = 80590-1) 8.7 fL 9.8-13.0 L NRBC/100 WBC (test code = 6814455074) See_Comment [Automated [employer] ssage] The system which generated this result transmitted reference range: 0.0 - 10.0 /100 WBCs. The reference range was not used to interpret this result as normal/abnormal. NRBC x10^3 (test code = 0582731151) See_Comment [Automated [employer] ge] The system which generated this result transmitted reference range: 10*3/?L. The reference range was not used to interpret this result as normal/abnormal. GRAN MAT (NEUT) % (test code = 770-8) 92.6 % IMM GRAN % (test code = 6422064674) 0.90 % LYMPH % (test code = 736-9) 5.3 % MONO % (test code = 5905-5) 0.6 % EOS % (test code = 713-8) 0.3 % BASO % (test code = 706-2) 0.3 % GRAN MAT x10^3(ANC) (test code = 1396189665) 9.61 10*3/uL 1.99-6.95 H IMM GRAN x10^3 (test code = 6071226669) 0.09 10*3/uL 0.00-0.06 H LYMPH x10^3 (test code = 731-0) 0.55 10*3/uL 1.09-3.23 L MONO x10^3 (test code = 742-7) 0.06 10*3/uL 0.36-1.02 L EOS x10^3 (test code = 711-2) 0.03 10*3/uL 0.06-0.53 L BASO x10^3 (test code = 704-7) 0.03 10*3/uL 0.01-0.09 Lab Interpretation (test code = 43224-1) Abnormal [facility]ALICYLATE2023-01-22 11:31:09 SALICYLATE<10mg/L10/20/2022 5:31 AM [facility] Range: ? Analgesic and Antipyretic Use ? 20- 100 mg/L ? ? Anti-Inflammatory Use ? 100-250 mg/L Toxic Range: ? Greater than 300 mg/LUnMem[facility] CenterETHANOL2023-01-22 11:31:04ALCOHOL<10mg/dL10/20/2022 5:31 AM [facility]<10 Azxzdgie84-825 Toxic>100 Depression of REVERSE LOGISTICS ANALYST>400 Fatalities ReportedCHRIST[facility] SpringsACETAMINOPHEN2023-01-22 11:30:59* Test Item Value Reference Range Interpretation Comme nts ACETAMINOP (test code = 5032385290) 10.0-30.0 L ISIDORO (test code = ISIDORO) Toxic: Greater porsche n 200 ug/mL @ 4 hour post ingestion or greater than 50 ug/mL @ 12 hour post ingestion Lab Interpretation (test code = 15229-6) Abnormal [facility] SpringsCOM. METABOLIC PANEL (74115)2022-10-20 11:26:11* Test Item Value Reference Range Interpretation Comme nts NA (test code = 1076548034) 135 mmol/L 135-145 K (test code = 1724608560) 5.9 mmol/L 3.5-5.0 H CL (test code = 2690730838) 105 mmol/L 98-108 CO2 TOTAL (test code = 2562904737) 21 mmol/L 23-31 L AGAP (test code = 6590092855) 2-16 BUN (test code = 5587737199) 25 mg/dL 7-23 H GLUCOSE (test code = 3653515501) 127 mg/dL 70-110 H CREATININE (test code = 6204466525) 1.66 mg/dL 0.60-1.25 H TOTAL BILI (test code = 9128516729) 1.0 mg/dL 0.1-1.1 CALCIUM (test code = 0841408607) 8.9 mg/dL 8.6-10.6 T PROTEIN (test code = 5653068321) 7.9 g/dL 6.3-8.2 ALBUMIN (test code = 7964271970) 4.6 g/dL 3.5-5.0 ALK PHOS (test code = 7281695822) 134 U/L 34-122 H ALTv (test code = 1742-6) 30 U/L 5-50 AST(SGOT) (test code = 1864605179) 45 U/L 13-40 H eGFR (test code = 1756920175) mL/min/1.73m2 ISIDORO (test code = ISIDORO) Association [...] imaging tests). Lab Interpretation (test code = 22902-3) Abnormal [facility] (NA, K, CL, CO2, GLUCOSE, BUN, CREATININE, CA)2022-08-30 18:07:32* Test Item Value Reference Range Interpretation Comme nts NA (test code = 6134288658) 143 mmol/L 135-145 K (test code = 0304914301) 4.1 mmol/L 3.5-5.0 CL (test code = 2835228637) 115 mmol/L 98-108 H CO2 TOTAL (test code = 2890928264) 19 mmol/L 23-31 L AGAP (test code = 2606975246) 2-16 BUN (test code = 8357475382) 33 mg/dL 7-23 H GLUCOSE (test code = 9182211319) 66 mg/dL 70-110 L CREATININE (test code = 6050107423) 1.99 mg/dL 0.60-1.25 H CALCIUM (test code = 3671845148) 8.3 mg/dL 8.6-10.6 L eGFR (test code = 1165612087) mL/min/1.73m2 ISIDORO (test code = ISIDORO) Association [...] imaging tests). Lab Interpretation (test code = 80312-0) Abnormal [facility] SpringsTROPONIN [id number] 15:44:49* Test Item Value Reference Range Interpretation Comments TROPONIN I (test code = 7043787770) 0.004 ng/mL See_Comment [Automated message] The system [...] of biotin. Lab Interpretation (test code = 24822-0) Normal [facility] SpringsETHANOL2022-12-02 15:27:10 ALCOHOL<10mg/dL08/30/2022 9:27 AM [facility]<10 Yzdfgnfd88-897 Toxic>100 Depression of REVERSE LOGISTICS ANALYST>400 Fatalities ReportedCH[facility]ST[facility] SpringsCOM. METABOLIC PANEL (76220)2022-08-30 15:24:23* Test Item Value Reference Range Interpretation Comme nts NA (test code = 8821198073) 144 mmol/L 135-145 K (test code = 1617435343) 3.9 mmol/L 3.5-5.0 CL (test code = 8252387317) 109 mmol/L 98-108 H CO2 TOTAL (test code = 3289349918) 22 mmol/L 23-31 L AGAP (test code = 0881754609) 2-16 BUN (test code = 0052772227) 37 mg/dL 7-23 H GLUCOSE (test code = 5456750193) 86 mg/dL 70-110 CREATININE (test code = 1574063434) 2.47 mg/dL 0.60-1.25 H TOTAL BILI (test code = 5746407710) 0.8 mg/dL 0.1-1.1 CALCIUM (test code = 0035322758) 9.3 mg/dL 8.6-10.6 T PROTEIN (test code = 0150864008) 7.0 g/dL 6.3-8.2 ALBUMIN (test code = 0891112600) 4.4 g/dL 3.5-5.0 ALK PHOS (test code = 5595692076) 119 U/L 34-122 ALTv (test code = 1742-6) 22 U/L 5-50 AST(SGOT) (test code = 1689415379) 38 U/L 13-40 eGFR (test code = 9792555966) mL/min/1.73m2 ISIDORO (test code = ISIDORO) Association [...] imaging tests). Lab Interpretation (test code = 24744-8) Abnormal [facility] SpringsMAGNESIUM2022-12-02 15:24:23* Test Item Value Reference Range Interpretation Comme nts MAGNESIUM (test code = 1145135138) 2.1 mg/dL 1.7-2.4 Lab Interpretation (test cod e = 77689-9) Normal [facility] WITH [id number] 14:36:33* Test Item Value Reference Range Interpretation Comme nts WBC (test code = 6690-2) See_Comment [Automated [employer]] The system which generated this result transmitted reference range: 4.20 - 10.70 10*3/?L. The reference range was not used to interpret this result as normal/abnormal. RBC (test code = 789-8) See_Comment [Automated [employer]] The system which generated this result transmitted [...] 32.7 g/dL 31.2-35.0 RDW-SD (test code = 68207-8) 44.7 fL 38.5-51.6 RDW-CV (test code = 788-0) 13.2 % 12.1-15.4 PLT (test code = 777-3) See_Comment [Automated [employer]] The system which generated this result transmitted reference range: 150 - 328 10*3/?L. The reference range was not used to interpret this result as normal/abnormal. MPV (test code = 46988-5) 9.7 fL 9.8-13.0 L NRBC/100 WBC (test code = 1428237014) See_Comment [Automated me ssage] The system which generated this result transmitted reference range: 0.0 - 10.0 /100 WBCs. The reference range was not used to interpret this result as normal/abnormal. NRBC x10^3 (test code = 1063506131) See_Comment [Automated messa ge] The system which generated this result transmitted reference range: 10*3/?L. The reference range was not used to interpret this result as normal/abnormal. GRAN MAT (NEUT) % (test code = 770-8) 62.1 % IMM GRAN % (test code = 8866501375) 0.50 % LYMPH % (test code = 736-9) 22.6 % MONO % (test code = 5905-5) 9.1 % EOS % (test code = 713-8) 5.2 % BASO % (test code = 706-2) 0.5 % GRAN MAT x10^3(ANC) (test code = 1532415067) 5.38 10*3/uL 1.99-6.95 IMM GRAN x10^3 (test code = 9074027744) 0.04 10*3/uL 0.00-0.06 LYMPH x10^3 (test code = 731-0) 1.96 10*3/uL 1.09-3.23 MONO x10^3 (test code = 742-7) 0.79 10*3/uL 0.36-1.02 EOS x10^3 (test code = 711-2) 0.45 10*3/uL 0.06-0.53 BASO x10^3 (test code = 704-7) 0.04 10*3/uL 0.01-0.09 Lab Interpretation (test code = 19845-4) Abnormal [facility] [id number] 10:17:19* Test Item Value Reference Range Interpretation Comments TROPONIN I (test code = 6851024649) 0.007 ng/mL See_Comment [Automated message] The system [...] of biotin. Lab Interpretation (test code = 67829-2) Normal [facility]MAGN[facility]UM2022-08-26 10:05:38* Test Item Value Reference Range Interpretation Comme nts MAGNESIUM (test code = 7246037541) 2.1 mg/dL 1.7-2.4 Lab Interpretation (test cod e = 87753-0) Normal [facility] (NA, K, CL, CO2, GLUCOSE, BUN, CREATININE, CA)2022-05-24 10:05:18* Test Item Value Reference Range Interpretation Comme nts NA (test code = 4542407917) 136 mmol/L 135-145 K (test code = 2524959478) 4.9 mmol/L 3.5-5 CL (test code = 7352174631) 109 mmol/L 98-108 H CO2 TOTAL (test code = 8379954631) 21 mmol/L 23-31 L AGAP (test code = 7608715340) 2-16 BUN (test code = 1188252724) 27 mg/dL 7-23 H GLUCOSE (test code = 1326886602) 89 mg/dL 70-110 CREATININE (test code = 6110534246) 1.62 mg/dL 0.6-1.25 H CALCIUM (test code = 3248795056) 8.5 mg/dL 8.6-10.6 L eGFR (test code = 9635182648) mL/min/1.73m2 ISIDORO (test code = ISIDORO) Association [...] imaging tests). Lab Interpretation (test code = 30526-5) Abnormal [facility] WITH [id number] 09:31:37* Test Item Value Reference Range Interpretation Comme nts WBC (test code = 6690-2) See_Comment [Automated [employer]] The system which generated this result transmitted reference range: 4.20 - 10.70 10*3/?L. The reference range was not used to interpret this result as normal/abnormal. RBC (test code = 789-8) See_Comment L [Automated [employer]] The system which generated this result transmitted [...] 33.3 g/dL 31.2-35 RDW-SD (test code = 57983-1) 43.6 fL 38.5-51.6 RDW-CV (test code = 788-0) 13.1 % 12.1-15.4 PLT (test code = 777-3) See_Comment [Automated [employer] ge] The system which generated this result transmitted reference range: 150 - 328 10*3/?L. The reference range was not used to interpret this result as normal/abnormal. MPV (test code = 20681-3) 9.3 fL 9.8-13 L NRBC/100 WBC (test code = 6820887412) See_Comment [Automated [employer] ssage] The system which generated this result transmitted reference range: 0.0 - 10.0 /100 WBCs. The reference range was not used to interpret this result as normal/abnormal. NRBC x10^3 (test code = 8376223540) See_Comment [Automated [employer] ge] The system which generated this result transmitted reference range: 10*3/?L. The reference range was not used to interpret this result as normal/abnormal. GRAN MAT (NEUT) % (test code = 770-8) 56.1 % IMM GRAN % (test code = 0595398749) 0.40 % LYMPH % (test code = 736-9) 27.1 % MONO % (test code = 5905-5) 9.9 % EOS % (test code = 713-8) 5.8 % BASO % (test code = 706-2) 0.7 % GRAN MAT x10^3(ANC) (test code = 4178485113) 4.53 10*3/uL 1.99-6.95 IMM GRAN x10^3 (test code = 7132179853) 0.03 10*3/uL 0-0.06 LYMPH x10^3 (test code = 731-0) 2.19 10*3/uL 1.09-3.23 MONO x10^3 (test code = 742-7) 0.80 10*3/uL 0.36-1.02 EOS x10^3 (test code = 711-2) 0.47 10*3/uL 0.06-0.53 BASO x10^3 (test code = 704-7) 0.06 10*3/uL 0.01-0.09 Lab Interpretation (test code = 20624-6) Abnormal [facility] Springs[facility]roponin [id number] 04:35:45* Test Item Value Reference Range Interpretation Comments TROPONIN I (test code = 0693204820) 0.004 ng/mL See_Comment [Automated message] The system [...] of biotin. Lab Interpretation (test code = 58318-1) Normal [facility] SpringsTransthoracic echo (TTE)2022-05-24 01:26:40* Test Item Value Reference Range Interpretation Comme nts Height (test code = 2815952952) in Weight (test code = 4395098419) lbs Systolic BP (test code = 4839416315) mmHg Diastolic BP (test code = 7178671438) mmHg Heart Rate (test code = 2734365641) bpm BSA (test code = 2029050480) 2.09 m2 Ao root annulus (test code = 1784622671) 3.2 cm Ao root diam (test code = 6537295655) 3.20 cm Aortic root (test code = 9936494271) 3.2 cm LVOT diameter (test code = 1231634442) 2.14 cm LVIDD (test code = 8490873713) 5.00 cm IVS (test code = 4465231076) 1.31 cm Interventricular Septum Diastolic Thickness by 2D (test code = 0237710) 1.31 cm LVPWD (test code = 0139056480) 1.32 cm PW (test code = 5949205417) 1.32 cm 0.6-1.1 EF(Teich) (test code = 0592362228) 61.30 % LVIDS (test code = 9212347408) 3.30 cm FS (test code = 6445741758) 33 % EF - 2D (test code = 50882544) 61.30 % LA size (test code = 0272691654) 3.6 cm TR Peak Mayank (test code = 1336777344) 261.9 cm/s Triscuspid Valve Regurgitation Peak Gradient (test code = 8317898715) mmHg LAV(MOD-sp4) (test code = 2456670197) 59.10 mL E wave decelartion time (test code = 7875806083) 0.23 s MV Peak E Mayank (test code = 7924686625) 73.6 cm/s MV stenosis pressure 1/2 time (test code = 4179764329) 70.2 ms MV Peak A Mayakn (test code = 8704816594) 55.9 cm/s E/A ratio (test code = 0188414195) ratio MV Prop V (test code = 7150836772) 58.20 cm/s MV E/e' septal (test code = 6355371722) 12.2 cm/s Tapse (test code = 0633036270) 2.9 cm LVOT stroke volume (test code = 7620588868) 103.80 cm3 LVOT peak mayank (test code = 9606459500) 147.2 cm/s LVOT mn grad (test code = 0955624457) mmHg AV LVOT peak gradient (test code = 0220877359) mmHg LVOT peak VTI (test code = 2461305644) 28.7 cm LV V1 mean (test code = 0112956649) 93.00 cm/s Aortic valve mean velocity (test code = 9486014353) 119.4 cm/s Ao peak mayank (test code = 5409206111) 165.6 cm/s Ao VTI (test code = 6164110518) 35.2 cm AV area by cont VTI (test code = 9517498608) 2.9 cm2 AV area peak mayank (test code = 6389287759) 3.2 cm2 Ao max PG (test code = 6992347864) 11.00 mm[Hg] AV peak gradient (test code = 9546423759) mmHg AV valve area (test code = 5244050137) 2.90 cm2 AV mean gradient (test code = 4316600874) mmHg Radiology Study observation (narrative) (test code = 61090-1) ISIDORO (test code = ISIDORO) Formatting of [...] color flow Doppler and spectral Doppler. [facility] SpringsLINDASPARTANBUR[facility] BLACK CAMPUSQUYEN [id number] 14:25:35* Test Item Value Reference Range Interpretation Comments TROPONIN I (test code = 9527332684) 0.009 ng/mL See_Comment [Automated message] The system [...] of biotin. Lab Interpretation (test code = 19154-5) Normal [facility]. METABOLIC PANEL (05763)2022-05-23 14:14:13* Test Item Value Reference Range Interpretation Comme nts NA (test code = 2451898940) 143 mmol/L 135-145 K (test code = 9787253368) 5.0 mmol/L 3.5-5 CL (test code = 0714834333) 111 mmol/L 98-108 H CO2 TOTAL (test code = 7262488817) 20 mmol/L 23-31 L AGAP (test code = 0390399758) 2-16 BUN (test code = 3926393513) 30 mg/dL 7-23 H GLUCOSE (test code = 3776252052) 85 mg/dL 70-110 CREATININE (test code = 1810449515) 2.07 mg/dL 0.6-1.25 H TOTAL BILI (test code = 1523493577) 0.6 mg/dL 0.1-1.1 CALCIUM (test code = 6871347079) 9.0 mg/dL 8.6-10.6 T PROTEIN (test code = 9450279994) 7.2 g/dL 6.3-8.2 ALBUMIN (test code = 8829707328) 4.4 g/dL 3.5-5 ALK PHOS (test code = 2389357698) 121 U/L 34-122 ALTv (test code = 1742-6) 23 U/L 5-50 AST(SGOT) (test code = 3127511627) 29 U/L 13-40 eGFR (test code = 4880754822) mL/min/1.73m2 ISIDORO (test code = ISIDORO) Association [...] imaging tests). Lab Interpretation (test code = 91020-2) Abnormal [facility] WITH [id number] 14:11:10* Test Item Value Reference Range Interpretation Comme nts WBC (test code = 6690-2) See_Comment H [Automated [employer]] The system which generated this result transmitted reference range: 4.20 - 10.70 10*3/?L. The reference range was not used to interpret this result as normal/abnormal. RBC (test code = 789-8) See_Comment [Automated [employer]] The system which generated this result transmitted [...] 33.5 g/dL 31.2-35 RDW-SD (test code = 94916-2) 42.9 fL 38.5-51.6 RDW-CV (test code = 788-0) 12.9 % 12.1-15.4 PLT (test code = 777-3) See_Comment H [Automated messa ge] The system which generated this result transmitted reference range: 150 - 328 10*3/?L. The reference range was not used to interpret this result as normal/abnormal. MPV (test code = 11196-4) 9.0 fL 9.8-13 L NRBC/100 WBC (test code = 2510720706) See_Comment [Automated [employer] ssage] The system which generated this result transmitted reference range: 0.0 - 10.0 /100 WBCs. The reference range was not used to interpret this result as normal/abnormal. NRBC x10^3 (test code = 0111310971) See_Comment [Automated messa ge] The system which generated this result transmitted reference range: 10*3/?L. The reference range was not used to interpret this result as normal/abnormal. GRAN MAT (NEUT) % (test code = 770-8) 71.9 % IMM GRAN % (test code = 1262724354) 0.40 % LYMPH % (test code = 736-9) 16.1 % MONO % (test code = 5905-5) 8.4 % EOS % (test code = 713-8) 2.5 % BASO % (test code = 706-2) 0.7 % GRAN MAT x10^3(ANC) (test code = 1694807224) 8.20 10*3/uL 1.99-6.95 H IMM GRAN x10^3 (test code = 5360077544) 0.05 10*3/uL 0-0.06 LYMPH x10^3 (test code = 731-0) 1.84 10*3/uL 1.09-3.23 MONO x10^3 (test code = 742-7) 0.96 10*3/uL 0.36-1.02 EOS x10^3 (test code = 711-2) 0.29 10*3/uL 0.06-0.53 BASO x10^3 (test code = 704-7) 0.08 10*3/uL 0.01-0.09 Lab Interpretation (test code = 59012-3) Abnormal [facility]"
[2024-03-11] MEDS ORDERED: NA CHLORIDE 0.9% 1,000 ML ONE ×2 (13:33→17:04)
--- NOTE | 2024-03-11 14:33 | RAD REPORT ---
EXAM DESCRIPTION: RADChest Single View03/11/2024 1:41 pm CLINICAL HISTORY: COUGH COMPARISON: Chest Single View dated 03/02/2024; Chest Single View dated 12/13/2023; Chest Single View d ated 11/27/2023; Chest Single View dated 07/03/2023 TECHNIQUE: Portable AP view of the chest. FINDINGS: The lungs are clear. No pneumothorax or effusion. The cardiomediastinal contours are unre markable. IMPRESSION: No acute cardiopulmonary process.
[2024-03-11 14:35] LABS: Absolute Basophils 0.1 K/uL (0-0.5); Absolute Eosinophils 0.8 K/uL (0-0.5); Basophils % 0.3 % (0-1.3); Eosinophils % 5.2 % (0-4.4); Hematocrit 37.7 % (39.6-49.0); Hemoglobin 12.2 g/dL (13.6-17.9); Lymphocytes % 13.7 % (15.3-44.8); MCH 29.2 pg (27.0-35.0); MCHC 32.4 g/dL (32.0-36.0); MCV 89.9 fL (80-100); MPV 6.8 fL (7.6-11.3); Monocytes % 6.6 % (3.3-12.3); Neutrophils % 74.2 % (41.7-73.7); Platelets 404 thou/uL (152-406); Red Cell Distribution Width 15.1 % (12.1-15.2)
[2024-03-11 14:47] LABS: PT Prothrombin Time 12.5 SECONDS (9.5-12.5); Protime INR 1.14
--- NOTE | 2024-03-11 14:47 | RAD REPORT ---
EXAM DESCRIPTION: CT - Head Brain Wo Cont - 03/11/2024 1:36 pm CLINICAL HISTORY: SYNCOPE COMPARISON: Head Brain Wo Cont dated 03/02/2024; Head Brain Wo Cont dated 12/13/2023 TECHNIQUE: Noncontrast head CT images were obtained without IV contrast. Multiplanar reformats were generated and reviewed. All CT scans are performed using dose optimization technique as appropriate and may include automated exposure control or mA/KV adjustment according to patient size. FINDINGS: No intracranial hemorrhage, mass, or edema. Midline structures are unremarkable. Normal ventricular caliber for age. Right peritrigonal encephalomalacia, stable no suggestive of sequelae of remote ischemia. Zarate-white matter differentiation is preserved, without evidence of acute infarct. Mild periventricular and deep white matter hypodensities, also stable and nonspecific, most suggestiv e of chronic small vessel ischemic changes. No abnormal extra-axial fluid collections. Mastoid air cells and visualized portions of the paranasal sinuses are clear. No acute bony findings. IMPRESSION: No evidence of an acute intracranial process. Stable chronic findings as above.
[2024-03-11 14:55] LABS: Albumin/Globulin Ratio 0.9 (1.1-1.8); Anion Gap 16.2 mEq/L (5.0-15.0); Bilirubin Direct 0.2 mg/dL (0-0.2); Bilirubin Indirect, Calculated 0.3 mg/dL (0.2-0.8); Bilirubin Total 0.5 mg/dL (0.2-1.0); Globulin 4.6 g/dL (2.3-3.5); Magnesium 1.8 mg/dL (1.6-2.4); Potassium 5.2 mEq/L (3.5-5.1); Protein, Total 8.6 g/dL (6.4-8.2); Troponin High Sensitivity 13.3 pg/mL (<58.9)
[2024-03-11] MEDS ORDERED: SOD POLYSTYREN SUL 15 GM/60 ML UCUP ONE (16:20)
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
--- NOTE | 2024-03-11 17:23 | RAD REPORT ---
EXAM DESCRIPTION: CT - Stone Protocol - 03/11/2024 4:11 pm CLINICAL HISTORY: FLANK PAIN COMPARISON: Abdomen Pelvis Wo Contrast dated 01/16/2024; Abdomen Pelvis W/Wo Contrast dated 2023; Abdomen Pelvis Wo Contrast dated 06/25/2023; Stone Protocol dated 06/19/2022 TECHNIQUE: Thin cut axial CT imaging of the abdomen and pelvis was performed without IV contrast. Mu ltiplanar reformats were generated and reviewed. All CT scans are performed using dose optimization technique as appropriate and may include automated exposure control or mA/KV adjustment according to patient size. FINDINGS: No suspicious findings in the lung bases. The liver, spleen, adrenal glands, and pancreas show no suspicious findings. Gallbladder and biliary tree are also without suspicious finding. Symmetric renal contour, without suspicious parenchymal findings within limits of noncontrast techniq ue. No evidence of radiopaque calculi or hydroureteronephrosis. No dilated bowel loops or bowel wall thickening. No free air, free fluid or inflammatory stranding. S mall left inguinal hernia containing fat. Sequelae of prior ventral hernia mesh repair. No suspicious mass or bulky lymphadenopathy. The urinary bladder is without significant finding. No suspicious bony findings. Lumbar spine degenerative changes with grade 1 anterolisthesis of L4 ove r L5, stable. Mixed lucent and sclerotic lesion involving the left pubic bone, stable on multiple elida or exams, and likely benign, may represent an atypical hemangioma, intraosseous lipoma, or fibrous dy splasia. IMPRESSION: No acute intra-abdominal process. Stable findings as above.
[2024-03-11] MEDS ORDERED: ONDANSETRON 4 MG/2 ML VIAL IV PRN (18:20)
--- NOTE | 2024-03-11 18:21 | RAD REPORT ---
EXAM DESCRIPTION: RAD - Hip Left 2 View - 03/11/2024 5:18 pm CLINICAL HISTORY: PAIN COMPARISON: No comparisons TECHNIQUE: Left hip, AP and frogleg views of the left hip. FINDINGS: There is no fracture or dislocation. No acute or destructive bony process seen. IMPRESSION: No acute findings of the left hip.
--- NOTE | 2024-03-11 18:24 | P.HP ---
Patient History Allergies Benzodiazepines Allergy (Severe, Verified 12/13/23 22:46) Anaphylaxis diazepam [From Valium] Allergy (Severe, Verified 12/13/23 22:46) Anaphylaxis ketorolac tromethamine [From Toradol] Allergy (Severe, Verified 12/13/23 22:46) Anaphylaxis Penicillins Allergy (Severe, Verified 12/13/23 22:46) Anaphylaxis venom-honey bee [bee venom (honey bee)] Allergy (Severe, Verified 12/13/23 22:46) Anaphylaxis venom-wasp [Wasp Venom] Allergy (Severe, Verified 12/13/23 22:46) Anaphylaxis alprazolam [From Xanax] Allergy (Verified 12/13/23 22:46) Hives amphetamine aspartate [From Adderall] Allergy (Verified 12/13/23 22:46) Hives amphetamine sulfate [From Adderall] Allergy (Verified 12/13/23 22:46) Hives dextroamphetamine saccharate [From Adderall] Allergy (Verified 12/13/23 22:46) Hives dextroamphetamine sulfate [From Adderall] Allergy (Verified 12/13/23 22:46) Hives lorazepam [From Ativan] Allergy (Verified 12/13/23 22:46) Hives/Rash trazodone Allergy (Verified 12/13/23 22:46) Hives Home Medications: Albuterol Sulfate [Proair Respiclick] 1 puff IH Q4HP PRN 03/03/24 Atorvastatin Calcium 40 mg PO DAILY AT SUPPER 03/03/24 Duloxetine [Cymbalta *] 20 mg PO BID 03/03/24 Lidocaine 4% Patch [Lidoderm 5% Patch*] 1 patch TD DAILY 03/03/24 Montelukast [Singulair*] 10 mg PO DAILY AT SUPPER 03/03/24 Rimegepant Sulfate [Nurtec Odt] 75 mg SL DAILY 03/03/24 Acidophilus/Bulgaricus [Lactinex Tablet Chewable] 1 each PO TID 5 Days #15 tab.chew 03/09/24 Amlodipine [Norvasc*] 5 mg PO DAILY 30 Days #30 tab 03/09/24 Tramadol HCl 100 mg PO BID PRN 8 Days #15 tab 03/09/24 Vancomycin HCl 125 mg PO Q6HR 5 Days #20 cap 03/09/24 - Past Medical/Surgical History Diabetic: No -: HTN -: Hyperlipidemia -: CVA -: CA -: Cocaine Abuse 15 years ago -: Hx [place]/ CKD II (Dr. Gibson/ [facility]) -: hernia repair -: appendectomy -: hemorrhoidectomy -: hernia repair Psychosocial/ Personal History: Patient lives at home with his sister. - Family History Mother Medical History: Heart disease, Hypertension, Stroke, Cancer Notes: Breast Father Medical History: Heart disease, Hypertension, GI disease, Stroke, Kidney disease Sister Medical History: Hypertension, Lung disease, Diabetes, Kidney disease Brother Medical History: Hypertension - Social History Alcohol use: No CD- Drugs: No Caffeine use: Yes Physical Examination - Studies Laboratory Data (last 24 hrs) 03/11/24 03/11/24 03/11/24 14:20 14:20 14:20 WBC 14.90 H Hgb 12.2 L Hct 37.7 L Plt Count 404 PT 12.5 INR 1.14 Sodium 137 Potassium 5.2 H BUN 40 H Creatinine 5.31 H Glucose 116 H Magnesium 1.8 Total Bilirubin 0.5 AST 38 H ALT 54 Alkaline Phosphatase 146 H Lipase 53 Assessment & Plan - Advance Directives Does patient have a Living Will: No Does patient have a Durable POA for Healthcare: No
[2024-03-11] MEDS: NA CHLORIDE 0.9% 1,000 ML IV SCH (19:48)
[2024-03-11] MEDS: ACETAMINOPHEN 500 MG TAB PO PRN (19:59)
[2024-03-11] MEDS: HYDROMORPHONE HCL 1 MG/ML INJ IV ONE (20:09)
[2024-03-11] MEDS: CYCLOBENZAPRINE 10 MG TAB PO ONE (20:10)
[2024-03-11] MEDS: DIPHENHYDRAMINE 50 MG/ML VIAL IV PRN (21:18)
[2024-03-11] MEDS: ALPRAZOLAM 0.5 MG TABLET PO ONE (21:41)
[2024-03-11 21:48] VITALS: BMI 27.2
[2024-03-12 07:03] LABS: Specific Gravity 1.017 (1.005-1.030); Sqamous Epithelial <5 /HPF (None Seen); Urine Bacteria <20 /HPF (<20); Urine Bilirubin NEGATIVE (Negative); Urine Blood Negative (Negative); Urine Clarity Extremely Turbid (Clear); Urine Color Yellow (Yellow); Urine Culture Reflex Order NOT NEEDED; Urine Glucose TRACE (Negative); Urine Ketones NEGATIVE (Negative); Urine Microscopic Reflex YN ORDER UMIC; Urine Mucus Slight /HPF (None Seen); Urine Nitrite NEGATIVE (Negative); Urine Protein 1+ (Negative); Urine RBC <5 /HPF (None Seen); Urine Urobilinogen Normal (Normal); Urine WBC <5 /HPF (<5)
[2024-03-12 07:13] LABS: Barbiturates NEGATIVE (NEGATIVE); Benzodiazepines POSITIVE (NEGATIVE); Cocaine NEGATIVE (NEGATIVE); METHAMPHETAM POSITIVE (NEGATIVE); Methadone NEGATIVE (NEGATIVE); Opiates POSITIVE (NEGATIVE); Phencyclidine NEGATIVE (NEGATIVE); THC Cannibis NEGATIVE (NEGATIVE)
[2024-03-12 07:35] LABS: Absolute Basophils 0.1 K/uL (0-0.5); Absolute Eosinophils 0.6 K/uL (0-0.5); Absolute Lymphocytes (CBC) 1.5 K/uL (0.7-4.9); Absolute Monocytes 0.6 K/uL (0.1-1.3); Basophils % 0.7 % (0-1.3); Eosinophils % 4.7 % (0-4.4); Hematocrit 32.4 % (39.6-49.0); Hemoglobin 10.9 g/dL (13.6-17.9); Lymphocytes % 11.4 % (15.3-44.8); MCH 29.8 pg (27.0-35.0); MCHC 33.7 g/dL (32.0-36.0); MCV 88.5 fL (80-100); MPV 6.6 fL (7.6-11.3); Monocytes % 4.9 % (3.3-12.3); Neutrophils % 78.3 % (41.7-73.7); Platelets 321 thou/uL (152-406); RBC Red Blood Cell Count 3.66 M/uL (4.33-5.43)
--- NOTE | 2024-03-12 07:50 | P.PN ---
Subjective Date of Service: 03/14/24 admited for Near Syncope, with Probable witnessed Seizure, pt had fall, reports L) hip pain, reports associated heat exhaustion, Review of Systems per HPI Physical Examination - Vital Signs Temperature: 99 F Blood Pressure: 109/57 Pulse: 84 Respirations: 20 Pulse Ox (%): 93 - Physical Exam General: Alert, In no apparent distress, Oriented x3 HEENT: Atraumatic, Normocephalic Respiratory: Clear to auscultation bilaterally, Normal air movement Cardiovascular: No edema, Normal pulses Gastrointestinal: Normal bowel sounds, Soft and benign Musculoskeletal: Other (Left hip pain with range of motion, ) Integumentary: No breakdown Neurological: Normal speech, Normal strength at 5/5 x4 extr, Cranial nerves 3-12 intact - Studies Laboratory Data (last 24 hrs) 03/11/24 03/11/24 03/11/24 14:20 14:20 14:20 WBC 14.90 H Hgb 12.2 L Hct 37.7 L Plt Count 404 PT 12.5 INR 1.14 Sodium 137 Potassium 5.2 H BUN 40 H Creatinine 5.31 H Glucose 116 H Magnesium 1.8 Total Bilirubin 0.5 AST 38 H ALT 54 Alkaline Phosphatase 146 H Lipase 53 Assessment And Plan - Plan Heat exhaustion hyperkalemia acute renal failure likely from dehydration treated with IVF, trend CK trend K, Kidney function Consider Neph consult Leukocytosis- Trend wbc, ua neg acute UTI Near syncopal epidsode Fall possible suspected witnessed seizure Left hip pain fall precautions, Xray neg fracture CT head neg acute abn CT abd neg acute abn polysubstance abuse UDS positive for Benzos, amphetamines, full code DVT heparin Diet regular Disposition: Home indep prior Discharge Plan: Home - Code Status/Comfort Care Code Status: Full Code Critical Care: No Time Spent Managing PTS Care (In Minutes): 35
[2024-03-12 07:55] LABS: Albumin 3.1 g/dL (3.4-5.0); Albumin/Globulin Ratio 0.8 (1.1-1.8); Bilirubin Total 0.6 mg/dL (0.2-1.0); Globulin 3.9 g/dL (2.3-3.5)
[2024-03-12 14:14] LABS: Absolute Basophils 0.1 K/uL (0-0.5); Absolute Eosinophils 0.4 K/uL (0-0.5); Absolute Lymphocytes (CBC) 1.4 K/uL (0.7-4.9); Absolute Monocytes 0.8 K/uL (0.1-1.3); Absolute Neutrophil 8.9 K/uL (1.8-8.0); Eosinophils % 3.7 % (0-4.4); Hematocrit 31.1 % (39.6-49.0); Hemoglobin 10.4 g/dL (13.6-17.9); Lymphocytes % 12.2 % (15.3-44.8); MCH 29.9 pg (27.0-35.0); MCHC 33.6 g/dL (32.0-36.0); MPV 7.2 fL (7.6-11.3); Monocytes % 7.2 % (3.3-12.3); Neutrophils % 75.9 % (41.7-73.7); Platelets 289 thou/uL (152-406); RBC Red Blood Cell Count 3.49 M/uL (4.33-5.43); Red Cell Distribution Width 14.9 % (12.1-15.2)
[2024-03-12 14:28] LABS: Anion Gap 10.3 mEq/L (5.0-15.0); Potassium 4.3 mEq/L (3.5-5.1)
[2024-03-12] MEDS: MORPHINE 4 MG/ML SYR IV PRN (16:15)
[2024-03-12] MEDS ORDERED: ALBUTEROL INHALER 200 PUFF/6.7 GM IH PRN (22:47)
[2024-03-13] MEDS: VANCOMYCIN HCL 125 MG CAPSULE PO SCH ×2 (03:16→13:28)
[2024-03-13 03:59] LABS: Absolute Eosinophils 0.5 K/uL (0-0.5); Absolute Lymphocytes (CBC) 1.9 K/uL (0.7-4.9); Absolute Monocytes 0.9 K/uL (0.1-1.3); Absolute Neutrophil 8.6 K/uL (1.8-8.0); Basophils % 0.2 % (0-1.3); Eosinophils % 4.2 % (0-4.4); Hematocrit 30.4 % (39.6-49.0); Hemoglobin 10.5 g/dL (13.6-17.9); Lymphocytes % 15.8 % (15.3-44.8); MCH 30.5 pg (27.0-35.0); MCHC 34.5 g/dL (32.0-36.0); MCV 88.4 fL (80-100); MPV 7.3 fL (7.6-11.3); Monocytes % 7.4 % (3.3-12.3); Neutrophils % 72.4 % (41.7-73.7); Nucleated Red Blood Cells % 0.1 % (0-0); Platelets 306 thou/uL (152-406); RBC Red Blood Cell Count 3.44 M/uL (4.33-5.43); Red Cell Distribution Width 15.1 % (12.1-15.2)
[2024-03-13 04:17] LABS: Albumin 2.8 g/dL (3.4-5.0); Albumin/Globulin Ratio 0.7 (1.1-1.8); Anion Gap 9.1 mEq/L (5.0-15.0); Bilirubin Total 0.4 mg/dL (0.2-1.0); Globulin 3.9 g/dL (2.3-3.5); Magnesium 1.6 mg/dL (1.6-2.4); Potassium 4.1 mEq/L (3.5-5.1); Protein, Total 6.7 g/dL (6.4-8.2)
--- NOTE | 2024-03-13 06:54 | P.PN ---
Date of Service: 03/13/24 Subjective pt had fall, reports L) hip pain (xray neg fracture),pain controlled prn pain meds - Vital Signs reviewed - Physical Exam General: Alert, In no apparent distress, Oriented x3 HEENT: Atraumatic, Respiratory: equal unlabored Cardiovascular: No edema, Normal pulses Gastrointestinal: Normal bowel sounds, Soft and benign Musculoskeletal: Other (Left hip pain with range of motion, ) Integumentary: No breakdown Neurological: Normal speech, Normal strength at 5/5 x4 extr, Cranial nerves 3-12 intact Assessment And Plan Heat exhaustion hyperkalemia acute renal failure likely from dehydration treated with IVF, trend CK 89 trend K, Kidney function Consider Neph consult kidney function improving with IVF Leukocytosis- Trend wbc, ua neg acute UTI Near syncopal epidsode Fall possible suspected witnessed seizure Left hip pain fall precautions, Xray neg fracture CT head neg acute abn CT abd neg acute abn polysubstance abuse UDS positive for Benzos, amphetamines, full code DVT heparin Diet regular Disposition: Home indep prior
[2024-03-13] MEDS: DULOXETINE 20 MG CAP PO SCH (08:45)
[2024-03-13] MEDS: LACTOBACILLUS/ACIDOPHILUS TAB PO SCH (08:45)
[2024-03-13] MEDS: AMLODIPINE 5 MG TAB PO SCH (08:45)
[2024-03-13] MEDS: MONTELUKAST 10 MG TAB PO SCH (17:02)
[2024-03-13] MEDS: NA CHLORIDE 0.9% 500 ML IV ONE (20:22)
[2024-03-14 00:40] VITALS: O2SAT 95
[2024-03-14 03:54] LABS: Absolute Basophils 0.1 K/uL (0-0.5); Absolute Eosinophils 0.5 K/uL (0-0.5); Absolute Lymphocytes (CBC) 1.6 K/uL (0.7-4.9); Absolute Monocytes 0.9 K/uL (0.1-1.3); Absolute Neutrophil 8.2 K/uL (1.8-8.0); Basophils % 1.3 % (0-1.3); Eosinophils % 4.9 % (0-4.4); Hematocrit 31.7 % (39.6-49.0); Hemoglobin 10.8 g/dL (13.6-17.9); Lymphocytes % 13.8 % (15.3-44.8); MCV 88.2 fL (80-100); MPV 7.5 fL (7.6-11.3); Monocytes % 7.6 % (3.3-12.3); Neutrophils % 72.4 % (41.7-73.7); Platelets 334 thou/uL (152-406); Red Cell Distribution Width 14.8 % (12.1-15.2)
[2024-03-14 04:11] LABS: Albumin 2.7 g/dL (3.4-5.0); Albumin/Globulin Ratio 0.6 (1.1-1.8); Anion Gap 10.1 mEq/L (5.0-15.0); Bilirubin Total 0.2 mg/dL (0.2-1.0); Globulin 4.2 g/dL (2.3-3.5); Magnesium 1.7 mg/dL (1.6-2.4); Potassium 4.1 mEq/L (3.5-5.1); Protein, Total 6.9 g/dL (6.4-8.2)
--- NOTE | 2024-03-14 09:44 | P.PN ---
Date of Service: 03/14/24 Subjective Kidney function improving, sinus rhythm on the monitor with PVCs, PAC, no reported chest - Vital Signs reviewed - Physical Exam General: Alert, Oriented x3 Respiratory: equal unlabored Cardiovascular: No edema, Normal pulses Gastrointestinal: Normal bowel sounds, Soft and benign Musculoskeletal: Other no deformity Integumentary: No breakdown Neurological: Normal speech, Normal strength at 5/5 x4 extr, Cranial nerves 3-12 intact Assessment And Plan Heat exhaustion hyperkalemia acute renal failure likely from dehydration treated with IVF, trend CK 89 trend K, Kidney function Consider Neph consult kidney function improving with IVF Leukocytosis- Trend wbc, ua neg acute UTI Near syncopal epidsode Fall possible suspected witnessed seizure likely secondary to substance abuse Left hip pain fall precautions, Xray neg fracture CT head neg acute abn CT abd neg acute abn No reported seizure activity since admission polysubstance abuse UDS positive for Benzos, amphetamines, full code DVT heparin Diet regular Disposition: Home indep prior
--- NOTE | 2024-03-14 09:48 | P.DS ---
Admission Date: 03/11/24 Discharge Date: 03/14/24 Disposition: ROUTINE DISCHARGE Discharge Condition: GOOD Brief History of Present Illness: Presented with seizure-like activity, was noted to have dehydration, positive urine drug screen, was treated with IV fluids, kidney function improved, tolerating diet, plan to discharge home, follow-up with primary care 1 to 2-week He was admitted for heat exhaustion with dehydration, treated with IV fluids, Acute kidney injury likely secondary from prerenal dehydration, improved with IV fluids Presyncopal episode likely precipitated by substance abuse from methamphetamine use, instructed on cessation, symptoms improved with IV fluids, - Physical Exam General: Alert, In no apparent distress, Oriented x3 HEENT: Atraumatic, Normocephalic Respiratory: Clear to auscultation bilaterally, Normal air movement Cardiovascular: No edema, Normal pulses Gastrointestinal: Normal bowel sounds, Soft and benign Musculoskeletal: Other (Left hip pain with range of motion, ) Integumentary: No breakdown Neurological: Normal speech, Normal strength at 5/5 x4 extr, Cranial nerves 3-12 intact Hospital Course: Presented with seizure-like activity, was noted to have dehydration, positive urine drug screen, was treated with IV fluids, kidney function improved, tolerating diet, plan to discharge home, follow-up with primary care 1 to 2-week Assessment plan Heat exhaustion with dehydration, treated with IV fluids Acute kidney injury likely secondary from prerenal dehydration, improved with IV fluids Presyncopal episode likely precipitated by substance abuse from methamphetamine use, instructed on cessation, Continue home medicines as previously prescribed GOAL: Clear understanding of disease process INSTRUCTIONS: Physician Discharge Instructions: -Follow-up with PCP in 1 to 2 weeks -Please call Dr. Esparza at [phone] if any questions regarding hospital stay -Please call nursing station at [phone] if any nursing or medication questions -Return to the emergency room if symptoms worsen Diet: ADA, low sodium Activity: Fall precautions Vital Signs/Physical Exam: Temp Pulse Resp BP Pulse Ox 99 F 84 20 109/57 L 93 03/14/24 09:41 03/14/24 09:41 03/14/24 09:41 03/14/24 09:41 03/14/24 09:41 Laboratory Data at Discharge: WBC 11.30 thou/uL (4.3-10.9) H 03/14/24 03:16 Hgb 10.8 g/dL (13.6-17.9) L 03/14/24 03:16 Hct 31.7 % (39.6-49.0) L 03/14/24 03:16 Plt Count 334 thou/uL (152-406) 03/14/24 03:16 PT 12.5 SECONDS (9.5-12.5) 03/11/24 14:20 INR 1.14 03/11/24 14:20 Sodium 140 mEq/L (136-145) 03/14/24 03:16 Potassium 4.1 mEq/L (3.5-5.1) 03/14/24 03:16 BUN 18 mg/dL (7-18) 03/14/24 03:16 Creatinine 1.46 mg/dL (0.70-1.30) H 03/14/24 03:16 Glucose 90 mg/dL (74-106) 03/14/24 03:16 Magnesium 1.7 mg/dL (1.6-2.4) 03/14/24 03:16 Total Bilirubin 0.2 mg/dL (0.2-1.0) 03/14/24 03:16 AST 18 U/L (15-37) 03/14/24 03:16 ALT 28 U/L (16-61) 03/14/24 03:16 Alkaline Phosphatase 114 U/L (45-117) 03/14/24 03:16 Lipase 53 U/L (13-75) 03/11/24 14:20 Home Medications: Albuterol Sulfate [Proair Respiclick] 1 puff IH Q4HP PRN 03/03/24 Duloxetine [Cymbalta *] 20 mg PO BID 03/03/24 Montelukast [Singulair*] 10 mg PO DAILY AT SUPPER 03/03/24 Acidophilus/Bulgaricus [Lactinex Tablet Chewable] 1 each PO TID 5 Days #15 tab.chew 03/09/24 Amlodipine [Norvasc*] 5 mg PO DAILY 30 Days #30 tab 03/09/24 Vancomycin HCl 125 mg PO Q6HR 5 Days #20 cap 03/09/24 Physician Discharge Instructions: -DC IV and DC home -Follow-up with PCP in 1 to 2 weeks -Follow-up with Nephrology in 1 to 2 weeks -Please call Dr. Esparza at [phone] if any questions regarding hospital stay -Please call nursing station at [phone] if any nursing or medication questions -Return to the emergency room if symptoms worsen Diet: AHA Activity: Fall precautions Followup: Rosana Red MD [Primary Care Provider] - Time spent managing pt's care (in minutes): 55
[2024-03-14 09:58] VITALS: BP 109/57; TEMP 99
--- NOTE | 2024-03-15 15:07 | EKG ---
Test Date: 2024-03-11 Test Time: 14:19:58 Senior Accountant Cpa: JD MEASUREMENT RESULTS: Intervals: Rate: 76 OK: 140 QRSD: 78 QT: 432 QTc: 486 [place]: P: 68 OK: 140 QRS: 30 T: 55 INTERPRETIVE STATEMENTS: Normal sinus rhythm Prolonged QT Abnormal ECG Compared to ECG 02/10/2024 14:43:58 Prolonged QT interval now present Electronically Signed On 03-15-24 14:55:39 CDT by Mino Tsai
== END 2024-03-14 12:23 | disposition home or self-care (01) | DRG 923 ==
LOC: ER 13:18 → 2ND 18:20
PROVIDERS: ADMIT Hospitalist; ATTEND Hospitalist
DX: T67.5XXA Heat exhaustion, unspecified, initial encounter (principal); N17.9 Acute kidney failure, unspecified; E86.0 Dehydration; I12.9 Hypertensive chronic kidney disease with stage 1 through stage 4 chronic kidney disease, or unspecified chronic kidney disease; N18.9 Chronic kidney disease, unspecified; E87.5 Hyperkalemia; M25.552 Pain in left hip; E78.00 Pure hypercholesterolemia, unspecified; D72.829 Elevated white blood cell count, unspecified; F15.10 Other stimulant abuse, uncomplicated; F13.10 Sedative, hypnotic or anxiolytic abuse, uncomplicated; I25.2 Old myocardial infarction; Z88.0 Allergy status to penicillin; Z88.5 Allergy status to narcotic agent; Z88.8 Allergy status to other drugs, medicaments and biological substances; Z90.49 Acquired absence of other specified parts of digestive tract; Z91.09 Other allergy status, other than to drugs and biological substances; Z86.73 Personal history of transient ischemic attack (TIA), and cerebral infarction without residual deficits; Z91.030 Bee allergy status; Z79.899 Other long term (current) drug therapy
CPT/HCPCS: 36415; 70450; 71045; 74176; 76377; 80048; 80053; 80076; 80307; 81001; 82550; 83690; 83735; 83880; 84484; 85025; 85610; 93005; 99285; J1170; J1200; J7030; J7040